=== PATIENT | male | born 1955 | race Caucasian/White ===

== ENCOUNTER 2020-02-10 21:07 | Inpatient (IN) | payer OTHER, MEDICARE, SELFPAY ==
[2020-02-10 21:21] VITALS: BP 115/76; PULSE 90; RESP 16; TEMP 36.3; O2SAT 93; BMI 30.9
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
[2020-02-10 22:13] LABS: Glucose Urine UA NEG (NEG); Leukocyte Esterase Urine NEG (NEG); Nitrite Urine NEG (NEG); PH 7.5 (5.0-8.0); Urine Blood 1+ (NEG); Urine Ketones NEG (NEG); Urine Protein 1+ MG/DL (NEG-TRACE)
[2020-02-10 22:15] LABS: Appearance Urine CLEAR; Color Urine YELLOW
[2020-02-10 22:28] LABS: RBC Urine 0-2 /HPF (0); WBC Urine 0 /HPF (0-4)
[2020-02-10 22:38] LABS: Amphetamine Screen Urine Not Detected (Not Detect); Barbiturates, Urine Not Detected (Not Detect); Benzodiazepines Screen Urine Not Detected (Not Detect); Cannabinoid Screen Urine Not Detected (Not Detect); Cocaine Screen Urine Not Detected (Not Detect); Opiate Screen Urine Not Detected (Not Detect); Phencyclidine Screen Urine Not Detected (Not Detect)
[2020-02-10 22:43] VITALS: BP 116/74; PULSE 74; RESP 18; O2SAT 97
[2020-02-10 22:50] LABS: Basophils Percent Auto 0.6 % (0-2); Eosinophils Percent Auto 1.3 % (0-4); Hematocrit 27.2 % (42-52); Hemoglobin 9.8 g/dl (14.0-18.0); Imm Gran Abs Auto 0.01 X10*3/uL (0.00-0.03); Imm Gran Pct Auto 0.3 % (0.0-0.4); Lymphocytes Absolute Auto 0.5 X10*3/uL (1.2-4.9); Lymphocytes Percent Auto 15.8 % (20-40); MANUAL DIFF FLAG SCAN; Mean Corpuscular Hemoglobin 31.9 pg (27.0-33.0); Mean Corpuscular Volume 88.6 fL (80-98); Mean Platelet Volume 9.9 fL (9.4-12.4); Monocytes Absolute Auto 0.7 X10*3/uL (0.1-1.2); Monocytes Percent Auto 21.5 % (2-11); Neutrophils Absolute Auto 1.9 X10*3/uL (2.0-8.3); Neutrophils Percent Auto 60.5 % (45-73); Platelet Count 118 X10*3/uL (160-400); Red Blood Count 3.07 X10*6/uL (4.60-5.80); Red Cell Distribution Width 12.7 % (11.0-16.0); SCAN SMEAR FLAG 1; White Blood Count 3.2 X10*3/uL (4.8-10.8)
[2020-02-10 23:06] LABS: Ethanol < 10 mg/dL
[2020-02-10 23:10] LABS: Alanine Aminotransferase 12 U/L (0-40); Albumin Level 4.2 g/dL (3.5-5.0); Alkaline Phosphatase 45 U/L (39-117); Anion Gap 15 (12-20); Aspartate Amino Transferase 17 U/L (5-37); Bilirubin Direct 0.2 mg/dL (0.0-0.5); Bilirubin Total 0.4 mg/dL (0.0-1.0); Blood Urea Nitrogen 14 mg/dL (9-16); Calcium 8.4 mg/dL (8.4-10.2); Carbon Dioxide 26 mmol/L (22-29); Chloride 93 mmol/L (96-108); Creatinine Clr Calc Pharmacy 21.5; Estimated Glomerular Filt Rate 14; Glucose Random 98 mg/dL (60-115); Potassium 3.3 mmol/l (3.3-5.1); Sodium 131 mmol/L (135-145); Total Protein 6.4 g/dL (6.5-8.0)
[2020-02-10 23:12] LABS: SLIDE REVIEW VERIFIED
[2020-02-11] VITALS (7 sets, daily range): BP systolic 104–158; BP diastolic 64–90; PULSE 65–88; RESP 16–18; TEMP 36.2–36.4; O2SAT 96–97
--- NOTE | 2020-02-11 | ECG_ITS ---
Test Reason : MEDICAL CLEARNCE Blood Pressure : / mmHG Vent. Rate : 074 BPM Atrial Rate : 074 BPM P-R Int : 176 ms QRS Dur : 108 ms QT Int : 474 ms P-R-T Axes : 039 -29 -09 degrees QTc Int : 526 ms Poor data quality Normal sinus rhythm Nonspecific T wave abnormality Abnormal ECG When compared with ECG of 17-JUL-2007 10:03, Nonspecific T wave abnormality now evident in Anterior leads QT has lengthened Referred By: Marilee Kevin Electronically Signed By:REJI NINO MD
--- NOTE | 2020-02-11 07:07 | PC.NURSE ---
Report received. Pt currently resting, breakfast at bedside. PT denies complaints. Pt is inpatient bedsearch.
[2020-02-11] MEDS: Benztropine Mesylate 1 MG TABLET PO (09:43)
[2020-02-11 10:13] LABS: COVID-19 Test Negative (Negative)
[2020-02-11] MEDS: Metoprolol Succinate ER 25 MG TAB.ER.24H PO (10:33)
[2020-02-11] MEDS: amLODIPine Besylate 5 MG TABLET PO (10:34)
--- NOTE | 2020-02-11 10:36 | PC.NURSE ---
Late Entry: pt reports that he takes his medication differently than is ordered, [facility], med rec corrected. Pt states he does not take B complex or sevelemar anymore. Provider aware of change in med rec.
--- NOTE | 2020-02-11 12:35 | MHC.CARE ---
t/w placed a call to [facility] to offer precertification info and was asked to use the LISA form which was faxed at 12n and completed and faxed back. They asked this to be sent and a clinician will reach out for clinical if possible or this will be done following the admission. Copies retained for UR and unit.
--- NOTE | 2020-02-11 13:55 | PC.NURSE ---
When staff approached PT to perform EKG pt would not respond, pt had eyes open but would not make eye contact or follow commands. Provider in to see PT, PT assessed, ekg completed, lab work ordered. After provider left the room PT stood and adjusted his dasha, then layed back down and is currently not responding to staff. This RN spoke with PT's dialysis clinic, they stated that they saw him last night and he had similar behaviors, he did not speak or blink for about 20 minutes, then became verbally aggressive with the staff there. Provider aware of conversation with dialysis clinic
--- NOTE | 2020-02-11 15:11 | PC.NURSE ---
Late Entry: This RN spoke with Pt's , she stated that he has episodes of catatonia when he stops taking his medications. She stated that she counted his depokote pills and she does not think he has been taking them. Provider notified. Depakote level ordered. PT is tough stick, phlebotomoy to attempt.
[2020-02-11 15:37] LABS: Basophils Percent Auto 0.5 % (0-2); Eosinophils Absolute Auto 0.1 X10*3/uL (0.0-0.4); Eosinophils Percent Auto 1.3 % (0-4); Hematocrit 28.7 % (42-52); Hemoglobin 10.1 g/dl (14.0-18.0); Imm Gran Abs Auto 0.01 X10*3/uL (0.00-0.03); Imm Gran Pct Auto 0.3 % (0.0-0.4); Lymphocytes Absolute Auto 0.6 X10*3/uL (1.2-4.9); Lymphocytes Percent Auto 16.2 % (20-40); MANUAL DIFF FLAG SCAN; Mean Corpuscular HGB Conc 35.2 g/dl (31.0-36.0); Mean Corpuscular Hemoglobin 31.7 pg (27.0-33.0); Monocytes Absolute Auto 0.6 X10*3/uL (0.1-1.2); Monocytes Percent Auto 15.4 % (2-11); Neutrophils Absolute Auto 2.6 X10*3/uL (2.0-8.3); Neutrophils Percent Auto 66.3 % (45-73); Platelet Count 142 X10*3/uL (160-400); Red Blood Count 3.19 X10*6/uL (4.60-5.80); Red Cell Distribution Width 13.1 % (11.0-16.0); SCAN SMEAR FLAG 1; White Blood Count 3.9 X10*3/uL (4.8-10.8)
[2020-02-11 15:57] LABS: SLIDE REVIEW VERIFIED
[2020-02-11 16:03] LABS: Valproate 45.6 mcg/mL (50.0-100.0)
--- NOTE | 2020-02-11 16:22 | PC.NURSE ---
PT ambulated to bathroom with steady gait, pt declined to engage with staff.
[2020-02-11 17:09] LABS: Anion Gap 15 (12-20); Blood Urea Nitrogen 21 mg/dL (9-16); Carbon Dioxide 26 mmol/L (22-29); Chloride 93 mmol/L (96-108); Creatinine Clr Calc Pharmacy 15.4; Estimated Glomerular Filt Rate 10; Glucose Random 88 mg/dL (60-115); Magnesium 2.4 mg/dL (1.6-2.6); Phosphorus 4.4 mg/dL (2.7-4.5); Potassium 3.3 mmol/l (3.3-5.1); Sodium 131 mmol/L (135-145)
--- NOTE | 2020-02-11 19:10 | PC.NURSE ---
Pt arrived on M5 at approximately 17:50. Pt is a 65 year old male who arrived at [facility] ED via his . He has previously been on the m5 unit twice and is on a CV status. Pt is covid -. Utox - pt has a fitula on LT arm for dialysis. Pt was recommended by SW at [facility] due to becoming irritable and off his baseline. pt's reported that he had rapid decompensation over the past two weeks, stating with subtle changes and escalating to being paranoid, guarded, irrational, agitated, with erratic behavior marked by poor judgment. Pt is diagnosed with Bipolar disorder. Pt denied any pain, SI, AH, AV during admit. pt mentioned I'am not sure why I am here, I'm starting to take my medications again . DR. Caitie Woodward called for orders and notified of admission. pt is on 15 min safety checks. Pt was pleasant and cooperative on admit and was waiting on a meal tray to arrive. pt had clear thoughts. Stable mood. Start treatment plan and monitor for safety.
[2020-02-11] MEDS: Divalproex Sodium 500 MG TABLET.DR PO (21:03)
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
[2020-02-12 06:30] VITALS: BP 113/57; PULSE 84; RESP 16; TEMP 36.2; O2SAT 94
[2020-02-12] MEDS: LORazepam 2 MG/ML VIAL 1 MG IM ×2 (06:45→22:08)
--- NOTE | 2020-02-12 07:05 | P.EN_ITS ---
Event Note Date of Service: 02/12/20 Event Note: A rapid response called on this patient for shaking. on my arri marly to patient bedside, patient was laying on his side, shaking his arm and his legs, with his eyes closed, refusing to open his eyes, ears for using to respond, according to the nurse at bedside, about 10 minutes ago patient was talking and conversing. She reported that during the respond, when she was trying to get his vitals he tried to sit up. Patient refused my time to lift his eyelids, he is hemodynamically stable with stable vitals, satting 98% on room air, heart rate in the 60 70s. on review of his chart, patient had a similar episode while in the ED, he is here for catatonia. 1 mg of IM Ativan was given, will order stat CMP, CBC as well as ammonia level
--- NOTE | 2020-02-12 07:10 | PC.NURSE ---
when nurse went into room to take am vs pt was responsive then became increasingly tremulous on rt side of body and verbally unresponsive.BP 113/57 HR 60. rapid response called. Ativan 1 mg IM given in rt deltoid at 0645.
[2020-02-12 07:51] LABS: Ammonia 43 umol/L (13-55)
[2020-02-12 08:10] LABS: Alanine Aminotransferase 18 U/L (0-40); Albumin Level 4.1 g/dL (3.5-5.0); Alkaline Phosphatase 42 U/L (39-117); Anion Gap 18 (12-20); Aspartate Amino Transferase 26 U/L (5-37); Bilirubin Total 0.3 mg/dL (0.0-1.0); Blood Urea Nitrogen 26 mg/dL (9-16); Calcium 9.1 mg/dL (8.4-10.2); Carbon Dioxide 22 mmol/L (22-29); Chloride 96 mmol/L (96-108); Glucose Random 83 mg/dL (60-115); Potassium 4.1 mmol/l (3.3-5.1); Sodium 132 mmol/L (135-145); Total Protein 6.6 g/dL (6.5-8.0)
[2020-02-12 08:13] LABS: Creatinine Clr Calc Pharmacy 13.3; Estimated Glomerular Filt Rate 8
--- NOTE | 2020-02-12 12:41 | PM.CNNEP ---
History of Present Illness Reason for Consult Consult date: 02/12/20 Chief Complaint Chief complaint: Bi Polar History of Present Illness Narrative: 64 y/o wM known to me with ESRD on HD mwf at [facility] ( [id number]) satrted oon HD in Jan. Initially tried to use AVF but wwas not able to work adequately so he has a Pcath in place. Now adm to psych unoit and we will cont HD here at the hosp while inpt. Presently on HD and comfortable...intermittent tremors which is a chronic problem Anemia Bipolar disorder ESRD: mwf ..recently started HD 01/2020..esrd presumed to d/t [facility] Hypertension [facility] Past Medical History Medical History Anemia Bipolar disorder Dialysis patient Hypertension Social History Social History Household Members: Spouse Housing: House Do you presently have visiting nurse or other home services: No Alcohol intake: never Smoking Status: Never smoker Smoked in Last 30 Days: No Patient Interested in Nicotine Replacement: No Patient Given Instructions on How to Stop Smoking: No Second Hand Smoke Exposure: No Use of substances other than those prescribed or required for medical reasons: No Currently Displaying Signs/Symptoms of Drug Intoxication Withdrawal: No Any prior treatment program specific to substance use: No Have you been hit, kicked, punched, or otherwise hurt by someone within the past year? If so, by whom?: No Do you feel safe in your current relationship?: Yes Is there a partner from a previous relationship who is making you feel unsafe now?: No Are you made to feel afraid or neglected: No Advance Directives: No Advance Directives Information Provided: No (declined) Advance Directives on File: No Do you have thoughts of harming others: None Do you have a plan to hurt others: No Plan Recently lost weight without trying: No Meds Allergies Allergy/AdvReac Type Severity Reaction Status Date / Time No Known Allergies Allergy Mild NOT Unverified 12/19/19 17:37 APPLICABLE Home Medications Medication Instructions Recorded Confirmed Type B complex with C 20-folic acid 1 cap PO DAILY 02/11/20 02/11/20 History [Triphrocaps] amlodipine 5 mg PO BID 02/11/20 02/11/20 History benztropine 2 mg PO BID 02/11/20 02/11/20 History divalproex 2 tab PO BEDTIME 02/11/20 02/11/20 History metoprolol succinate 25 mg PO BID 02/11/20 02/11/20 History sevelamer HCl 1 tab PO TID 02/11/20 02/11/20 History thiothixene 15 mg PO DAILY 02/11/20 02/11/20 History Physical Exam Vital Signs: Last Vital Signs Temp 97.1 F 02/12/20 06:30 Pulse 84 02/12/20 06:30 Resp 16 02/12/20 06:30 BP 113/57 L 02/12/20 06:30 Pulse Ox 94 02/12/20 06:30 Body Mass Index 30.9 Appearance: Alert. Oriented X3. No acute distress. Eyes: Pupils equal, round and reactive to light. ENT: Pharynx normal. Neck: Normal inspection. Neck supple. No lymph nodes noted. No crepitus CVS: Normal heart rate and rhythm. Pulses normal. Normal S1 and S2 Respiratory: No respiratory distress. Breath sounds normal. No Wheezing. No rales Abdomen: Soft and nontender. No rigidity. No distention. good BS x4 Skin: Skin warm and dry. Normal skin color. Normal skin turgor. Extremities: +2 bilateral pitting edema, wearing compression stockings Neuro: Oriented X 3. N no slurred speech. Patient has a baseline resting tremor in both hands, patient states it has been going on for several years due to his medications psych: Patient does have a flat affect, calm, cooperative, well kept, answering questions appropriately, normal thought process Results Lab Results Result Diagrams: 02/11/20 15:25 02/12/20 07:11 Lab results: Chemistry 02/10/20 02/11/20 02/12/20 22:41 15:25 07:11 Sodium 131 L 131 L 132 L Potassium 3.3 3.3 4.1 D Carbon Dioxide 26 26 22 BUN 14 21 H 26 H Creatinine 4.14 H* 5.77 H* 6.66 H* Calcium 8.4 9.0 D 9.1 Phosphorus 4.4 Hematology 02/10/20 02/11/20 02/12/20 22:41 15:25 07:11 WBC 3.2 L 3.9 L Cancelled Hgb 9.8 L 10.1 L Cancelled Plt Count 118 L 142 L Cancelled Urinalysis 02/10/20 21:59 Urine Color YELLOW Urine Appearance CLEAR Urine pH 7.5 Ur Specific [place] 1.010 Urine Protein 1+ H Urine Glucose (UA) NEG Urine Ketones NEG Urine Blood 1+ H Urine Nitrite NEG Ur Leukocyte Esterase NEG Urine RBC 0-2 Urine WBC 0 Ur Squamous Epith Cells NONE Assessment and Plan (1) Dialysis patient: Status: Acute 1. ESRD: cont HD mwf 2. Anemia 3. Psych issues: adm to psych unit 4. Tremors: longstandiing issue REC: cont HD mwf; cont usu meds; protect LUE ( AVF arm); renal diet..2 gm K restrcited and low phos
[2020-02-12 15:20] VITALS: BP 106/54; PULSE 113
[2020-02-12 16:41] VITALS: BP 155/87; PULSE 73; TEMP 36.3; O2SAT 97
--- NOTE | 2020-02-12 23:22 | PC.NURSE ---
At approximately 2000 t/w approached Marco Styles to take his oral scheduled night medication. Marco appeared to present with catatonia and did not respond to any verbal or tactile stimuli. Marco remained with his eyes closed. He had dialysis today, vital signs taken and they were WNL, no fever. Provider Caitie Woodward called and she mentioned when Marco is not taking his medication he gets more catatonic without meds. She ordered 1mg IM of Ativan stat, to be given with his regular scheduled meds 20 to 30 min later. Marco given IM ativan in his RT deltoid and still did not respond to any verbal or tactile stimuli 30mins later. Oral medication held. Monitor vital signs and respirations and engage pt tomorrow morning
[2020-02-13 05:55] VITALS: BP 141/83; PULSE 79; RESP 16; TEMP 36; O2SAT 97
--- NOTE | 2020-02-13 07:28 | P.PNPSI_ITS ---
Subjective Subjective Date of Service: 02/13/20 Reason For Visit: Bi Polar Subjective Notes: Conditional Voluntary Interim History: Pt paranoid. Refused meds today. Did not engage with TW. Played possum. Medication Compliance: No Side effects from medications: Yes Attending Groups: No Review of Systems Review of Systems Yes Other (ESRD. Refused labs) Mental Status Exam Mental Status Exam Patient Appearance: Disheveled, Unkempt and Bizarre Patient Orientation: Person, Place, Time and Situation Level of Consciousness: Restless Patient Behavior: Guarded, Suspicious, Restless and Uncooperative Mood Description: Anxious, Labile and Apprehensive Affect Description: Suspicious Speech Pattern: Perseverating and Rambling Diagnostics Vital Signs (24Hr): Vital Signs - 24 hr 02/12/20 15:20 02/12/20 16:41 02/13/20 05:55 Temperature 97.3 F 96.8 F Pulse Rate 113 H 73 79 Respiratory Rate 16 Blood Pressure 106/54 L 155/87 H 141/83 H Pulse Oximetry 97 97 Body Mass Index 30.9 Labs Results: 02/11/20 15:25 02/12/20 07:11 Labs: Laboratory Results - last 48 hr 02/11/20 02/11/20 02/11/20 09:38 15:25 15:25 WBC 3.9 L RBC 3.19 L Hgb 10.1 L Hct 28.7 L MCV 90.0 MCH 31.7 MCHC 35.2 RDW 13.1 Plt Count 142 L MPV 11.0 Immature Gran % (Auto) 0.3 Neut % (Auto) 66.3 Lymph % (Auto) 16.2 L [place] % (Auto) 15.4 H Eos % (Auto) 1.3 Baso % (Auto) 0.5 Lymph # (Auto) 0.6 L [place] # (Auto) 0.6 Eos # (Auto) 0.1 Baso # (Auto) 0.0 Abs Immat Gran (auto) 0.01 Absolute Neuts (auto) 2.6 Absolute Nucleated RBC 0.000 Nucleated RBC % (auto) 0.0 Smear Tech's Comments VERIFIED Sodium 131 L Potassium 3.3 Chloride 93 L Carbon Dioxide 26 Anion Gap 15 BUN 21 H Creatinine 5.77 H* Estim Creat Clear Calc 15.4 Estimated GFR 10 Random Glucose 88 Calcium 9.0 D Phosphorus 4.4 Magnesium 2.4 Total Bilirubin AST ALT Alkaline Phosphatase Ammonia Total Protein Albumin Valproic Acid COVID-19 ([facility]) Negative [employer] [employer] [place] See Note 02/11/20 02/12/20 02/12/20 15:25 07:11 07:11 WBC Cancelled RBC Cancelled Hgb Cancelled Hct Cancelled MCV Cancelled MCH Cancelled MCHC Cancelled RDW Cancelled Plt Count Cancelled MPV Cancelled Immature Gran % (Auto) Cancelled Neut % (Auto) Cancelled Lymph % (Auto) Cancelled [place] % (Auto) Cancelled Eos % (Auto) Cancelled Baso % (Auto) Cancelled Lymph # (Auto) Cancelled [place] # (Auto) Cancelled Eos # (Auto) Cancelled Baso # (Auto) Cancelled Abs Immat Gran (auto) Cancelled Absolute Neuts (auto) Cancelled Absolute Nucleated RBC Cancelled Nucleated RBC % (auto) Cancelled Smear Tech's Comments Sodium 132 L Potassium 4.1 D Chloride 96 Carbon Dioxide 22 Anion Gap 18 BUN 26 H Creatinine 6.66 H* Estim Creat Clear Calc 13.3 Estimated GFR 8 Random Glucose 83 Calcium 9.1 Phosphorus Magnesium Total Bilirubin 0.3 AST 26 D ALT 18 Alkaline Phosphatase 42 Ammonia Total Protein 6.6 Albumin 4.1 Valproic Acid 45.6 L COVID-19 ([facility]) [employer] [place] 02/12/20 07:11 WBC RBC Hgb Hct MCV MCH MCHC RDW Plt Count MPV Immature Gran % (Auto) Neut % (Auto) Lymph % (Auto) [place] % (Auto) Eos % (Auto) Baso % (Auto) Lymph # (Auto) [place] # (Auto) Eos # (Auto) Baso # (Auto) Abs Immat Gran (auto) Absolute Neuts (auto) Absolute Nucleated RBC Nucleated RBC % (auto) Smear Tech's Comments Sodium Potassium Chloride Carbon Dioxide Anion Gap BUN Creatinine Estim Creat Clear Calc Estimated GFR Random Glucose Calcium Phosphorus Magnesium Total Bilirubin AST ALT Alkaline Phosphatase Ammonia 43 Total Protein Albumin Valproic Acid COVID-19 ([facility]) [employer] Medications Medications Current Medications Generic Name Dose Route Start Last Admin Trade Name Freq PRN Reason Stop Dose Admin Acetaminophen 650 mg 02/11/20 18:28 Acetaminophen 325 Mg Tablet PO Q6H PRN Headache/Pain Mild Scale (1-3) Amlodipine Besylate 5 mg 02/11/20 09:00 02/12/20 15:20 Amlodipine Besylate 5 Mg Tablet PO Not Given DAILY [facility] Protocol Benztropine Mesylate 1 mg 02/11/20 09:00 02/12/20 15:24 Benztropine Mesylate 1 Mg Tablet PO Not Given DAILY DEVON Divalproex Sodium 500 mg 02/11/20 09:00 02/12/20 23:11 Divalproex Sodium 500 Mg Tablet.Dr PO Not Given BID DEVON Hydroxyzine HCl 25 mg 02/11/20 18:28 Hydroxyzine Hcl 25 Mg Tablet PO BEDTIME PRN Anxiety Lorazepam 1 mg 02/12/20 12:42 Lorazepam 1 Mg Tablet PO Q4H PRN Anxiety Metoprolol Succinate 25 mg 02/11/20 09:00 02/12/20 15:24 Metoprolol Succinate Er 25 Mg Tab.Er.24h PO Not Given DAILY [facility] Protocol Pat Own Med ( 3 each 02/11/20 21:00 02/12/20 23:11 Thiothixene 5mg Caps PO Not Given ) BEDTIME DEVON Sevelamer HCl 800 mg 02/11/20 09:00 02/12/20 23:11 Sevelamer Hcl 800 Mg Tablet PO Not Given TID DEVON Trazodone HCl 25 mg 02/11/20 18:28 Trazodone Hcl 25 Mg Halftab PO BEDTIME PRN Insomnia Vitamin B Complex/Folic Acid 1 cap 02/11/20 09:00 02/12/20 15:24 B Complex W-C No.20/Folic Acid Capsule PO Not Given DAILY [facility] Allergies Allergies Allergy/AdvReac Type Severity Reaction Status Date / Time No Known Allergies Allergy Mild NOT Unverified 12/19/19 17:37 APPLICABLE Assessment & Plan Assessment & Plan (1) Bipolar disorder, unspecified: Status: Acute Code(s): F31.9 - Bipolar disorder, unspecified (2) Psychosis: Status: Acute Code(s): F29 - Unspecified psychosis not due to a substance or known physiological condition Assessment and Plan: q15 cv Collateral from family HD per Nephrology Nephrology Dr Pena consult Ct OP meds. VPA noted low Greater than 50% of the session was spent on counseling and/or coordination of care
[2020-02-13 21:47] VITALS: BP 138/93; PULSE 74; TEMP 37.3; O2SAT 96
[2020-02-13 23:04] VITALS: BP 138/93; PULSE 74
[2020-02-14 06:00] VITALS: BP 136/89; PULSE 74; RESP 16; TEMP 36.3; O2SAT 98
--- NOTE | 2020-02-14 06:13 | P.PNPSI_ITS ---
Subjective Subjective Reason For Visit: Bi Polar Interim History: Currently on HD via [facility]. Pt was initially resistive to interview. Exhibits paranoia and fixity of ideas. Went to HD. See Dr Pena note. Creat remains high. Later pt did accept meds. Encourage Lorazepam to help with anxiety and catatonia. Review of Systems Constitutional: Reports weakness Genitourinary: Reports other (Dialysis) Reports tremor(s) and Reports weakness Mental Status Exam Mental Status Exam Patient Appearance: Disheveled, Unkempt and Bizarre Patient Orientation: Person, Place, Time and Situation Level of Consciousness: Restless Patient Behavior: Guarded, Suspicious, Restless and Uncooperative Mood Description: Anxious, Labile and Apprehensive Affect Description: Suspicious Speech Pattern: Perseverating and Rambling Diagnostics Vital Signs (24Hr): Vital Signs - 24 hr 02/13/20 21:47 02/13/20 23:04 Temperature 99.2 F Pulse Rate 74 74 Blood Pressure 138/93 H 138/93 H Pulse Oximetry 96 Body Mass Index 30.9 Labs Results: 02/11/20 15:25 02/14/20 08:37 Labs: Laboratory Results - last 48 hr 02/12/20 02/12/20 02/12/20 07:11 07:11 07:11 WBC Cancelled RBC Cancelled Hgb Cancelled Hct Cancelled MCV Cancelled MCH Cancelled MCHC Cancelled RDW Cancelled Plt Count Cancelled MPV Cancelled Immature Gran % (Auto) Cancelled Neut % (Auto) Cancelled Lymph % (Auto) Cancelled [place] % (Auto) Cancelled Eos % (Auto) Cancelled Baso % (Auto) Cancelled Lymph # (Auto) Cancelled [place] # (Auto) Cancelled Eos # (Auto) Cancelled Baso # (Auto) Cancelled Abs Immat Gran (auto) Cancelled Absolute Neuts (auto) Cancelled Absolute Nucleated RBC Cancelled Nucleated RBC % (auto) Cancelled Sodium 132 L Potassium 4.1 D Chloride 96 Carbon Dioxide 22 Anion Gap 18 BUN 26 H Creatinine 6.66 H* Estim Creat Clear Calc 13.3 Estimated GFR 8 Random Glucose 83 Calcium 9.1 Total Bilirubin 0.3 AST 26 D ALT 18 Alkaline Phosphatase 42 Ammonia 43 Total Protein 6.6 Albumin 4.1 Medications Medications Current Medications Generic Name Dose Route Start Last Admin Trade Name Freq PRN Reason Stop Dose Admin Acetaminophen 650 mg 02/11/20 18:28 Acetaminophen 325 Mg Tablet PO Q6H PRN Headache/Pain Mild Scale (1-3) Amlodipine Besylate 5 mg 02/11/20 09:00 02/13/20 10:46 Amlodipine Besylate 5 Mg Tablet PO Not Given DAILY [facility] Protocol Benztropine Mesylate 2 mg 02/13/20 09:00 02/13/20 23:02 Benztropine Mesylate 1 Mg Tablet PO Not Given BID [facility] Divalproex Sodium 1,000 mg 02/13/20 21:00 02/13/20 23:03 Divalproex Sodium Er 500 Mg Tab.Er.24h PO Not Given BEDTIME [facility]ON Hydroxyzine HCl 25 mg 02/11/20 18:28 Hydroxyzine Hcl 25 Mg Tablet PO BEDTIME PRN Anxiety Lorazepam 1 mg 02/12/20 12:42 Lorazepam 1 Mg Tablet PO Q4H PRN Anxiety Lorazepam 1 mg 02/13/20 09:00 02/13/20 23:03 Lorazepam 1 Mg Tablet PO Not Given TID [facility] Metoprolol Succinate 25 mg 02/13/20 09:00 02/13/20 23:04 Metoprolol Succinate Er 25 Mg Tab.Er.24h PO Not Given BID [facility] Protocol Pat Own Med ( 3 each 02/11/20 21:00 02/13/20 23:04 Thiothixene 5mg Caps PO Not Given ) BEDTIME DEVON Sevelamer HCl 800 mg 02/11/20 09:00 02/13/20 23:05 Sevelamer Hcl 800 Mg Tablet PO Not Given TID [facility] Trazodone HCl 25 mg 02/11/20 18:28 Trazodone Hcl 25 Mg Halftab PO BEDTIME PRN Insomnia Vitamin B Complex/Folic Acid 1 cap 02/11/20 09:00 02/13/20 10:46 B Complex W-C No.20/Folic Acid Capsule PO Not Given DAILY [facility] Allergies Allergies Allergy/AdvReac Type Severity Reaction Status Date / Time No Known Allergies Allergy Mild NOT Unverified 12/19/19 17:37 APPLICABLE Assessment & Plan Assessment & Plan (1) Dialysis patient: Status: Acute Code(s): Z99.2 - Dependence on renal dialysis Assessment and Plan: 1. ESRD: cont HD mwf 2. Anemia 3. Cont meds: VPA/Navane and Lorazepam 4. Tremors: longstandiing issue REC: no new recs; cont HD mwf; cont usu meds; protect LUE ( AVF arm); renal diet..2 gm K restrcited and low phos Greater than 50% of the session was spent on counseling and/or coordination of care
[2020-02-14 09:34] LABS: Alanine Aminotransferase 17 U/L (0-40); Albumin Level 4.8 g/dL (3.5-5.0); Alkaline Phosphatase 53 U/L (39-117); Anion Gap 24 (12-20); Aspartate Amino Transferase 18 U/L (5-37); Bilirubin Total 0.7 mg/dL (0.0-1.0); Blood Urea Nitrogen 36 mg/dL (9-16); Calcium 9.6 mg/dL (8.4-10.2); Carbon Dioxide 15 mmol/L (22-29); Chloride 98 mmol/L (96-108); Glucose Fasting 96 mg/dL (60-99); Potassium 3.9 mmol/l (3.3-5.1); Sodium 133 mmol/L (135-145); Total Protein 7.5 g/dL (6.5-8.0)
[2020-02-14 09:43] LABS: Creatinine Clr Calc Pharmacy 9.6; Estimated Glomerular Filt Rate 6
--- NOTE | 2020-02-14 11:01 | P.PNNP_ITS ---
Subjective Subjective Interval history: Currently on HD via [facility] Physical Exam Vital Signs: Vital Signs: Last Vital Signs Temp 97.4 F 02/14/20 06:00 Pulse 74 02/14/20 06:00 Resp 16 02/14/20 06:00 BP 136/89 02/14/20 06:00 Pulse Ox 98 02/14/20 06:00 Body Mass Index 30.9 Appearance: Alert. Oriented X3. No acute distress. Eyes: Pupils equal, round and reactive to light. ENT: Pharynx normal. Neck: Normal inspection. Neck supple. No lymph nodes noted. No crepitus CVS: Normal heart rate and rhythm. Pulses normal. Normal S1 and S2 Respiratory: No respiratory distress. Breath sounds normal. No Wheezing. No rales Abdomen: Soft and nontender. No rigidity. No distention. good BS x4 Skin: Skin warm and dry. Normal skin color. Normal skin turgor. Extremities: +2 bilateral pitting edema, wearing compression stockings Neuro: Oriented X 3. N no slurred speech. Patient has a baseline resting tremor in both hands, patient states it has been going on for several years due to his medications psych: Patient does have a flat affect, calm, cooperative, well kept, answering questions appropriately, normal thought process Assessment & Plan Assessment and plan (1) Dialysis patient: Status: Acute Assessment and Plan: 1. ESRD: cont HD mwf 2. Anemia 3. Psych issues: adm to psych unit 4. Tremors: longstandiing issue REC: no new recs; cont HD mwf; cont usu meds; protect LUE ( AVF arm); renal diet..2 gm K restrcited and low phos Time Spent With Patient Time: Total time spent is greater than 50% in coordination of care (as documented) at patient's floor/unit and/or counseling patient: Procedures Abscess I/D Date of Service: 02/14/20
[2020-02-14] MEDS: amLODIPine Besylate 5 MG TABLET PO (14:05)
[2020-02-14] MEDS: Benztropine Mesylate 1 MG TABLET 2 MG PO ×2 (14:05→22:32)
[2020-02-14] MEDS: LORazepam 1 MG TABLET PO (14:06)
[2020-02-14] MEDS: Metoprolol Succinate ER 25 MG TAB.ER.24H PO ×2 (14:06→22:33)
[2020-02-14] MEDS: Divalproex Sodium ER 500 MG TAB.ER.24H 1000 MG PO (22:32)
[2020-02-14 22:33] VITALS: BP 131/82; PULSE 87
[2020-02-14 22:36] VITALS: TEMP 35.9
[2020-02-15 06:15] VITALS: BP 121/55; PULSE 67; RESP 20; TEMP 36.5
[2020-02-15 08:37] LABS: Alanine Aminotransferase 26 U/L (0-40); Albumin Level 4.7 g/dL (3.5-5.0); Alkaline Phosphatase 53 U/L (39-117); Anion Gap 21 (12-20); Aspartate Amino Transferase 58 U/L (5-37); Bilirubin Total 0.5 mg/dL (0.0-1.0); Blood Urea Nitrogen 36 mg/dL (9-16); Calcium 9.6 mg/dL (8.4-10.2); Carbon Dioxide 20 mmol/L (22-29); Chloride 94 mmol/L (96-108); Creatinine Clr Calc Pharmacy 11.6; Estimated Glomerular Filt Rate 7; Glucose Fasting 98 mg/dL (60-99); Potassium 4.1 mmol/l (3.3-5.1); Sodium 131 mmol/L (135-145); Total Protein 7.4 g/dL (6.5-8.0)
[2020-02-15 09:03] VITALS: BP 133/65; PULSE 75
[2020-02-15] MEDS: LORazepam 1 MG TABLET PO (09:03)
[2020-02-15] MEDS: Metoprolol Succinate ER 25 MG TAB.ER.24H PO ×2 (09:03→23:16)
[2020-02-15] MEDS: amLODIPine Besylate 5 MG TABLET PO (09:04)
[2020-02-15] MEDS: Benztropine Mesylate 1 MG TABLET 2 MG PO ×2 (09:04→23:16)
--- NOTE | 2020-02-15 11:22 | HO.PSYCHPN ---
Subjective Subjective Reason For Visit: Bi Polar Interim History: Currently on HD via [facility]. Pt was withdrawn. Exhibits paranoia and fixity of ideas. Went to HD. Review of Dr Pena note. Creat remains high. Sodium low. pt did accept meds. Review of Systems Constitutional: Reports weakness Reports tremor(s) and Reports weakness Mental Status Exam Mental Status Exam Patient Appearance: Disheveled, Unkempt and Bizarre Patient Orientation: Person, Place, Time and Situation Level of Consciousness: Restless Patient Behavior: Guarded, Suspicious, Restless and Uncooperative Mood Description: Anxious, Labile and Apprehensive Affect Description: Suspicious Speech Pattern: Perseverating and Rambling Diagnostics Vital Signs (24Hr): Vital Signs - 24 hr 02/14/20 22:33 02/14/20 22:36 02/15/20 06:15 Temperature 96.6 F L 97.7 F Pulse Rate 87 67 Respiratory Rate 20 Blood Pressure 131/82 121/55 L 02/15/20 09:03 Temperature Pulse Rate 75 Respiratory Rate Blood Pressure 133/65 Body Mass Index 30.9 Labs Results: 02/11/20 15:25 02/15/20 07:40 Labs: Laboratory Results - last 48 hr 02/14/20 02/15/20 08:37 07:40 Sodium 133 L 131 L Potassium 3.9 4.1 Chloride 98 94 L Carbon Dioxide 15 L 20 L Anion Gap 24 H 21 H BUN 36 H 36 H Creatinine 9.28 H* 7.64 H* Estim Creat Clear Calc 9.6 11.6 Estimated GFR 6 7 Fasting Glucose 96 98 Calcium 9.6 9.6 Total Bilirubin 0.7 0.5 AST 18 58 H ALT 17 26 Alkaline Phosphatase 53 D 53 Total Protein 7.5 7.4 Albumin 4.8 4.7 Medications Medications Current Medications Generic Name Dose Route Start Last Admin Trade Name Freq PRN Reason Stop Dose Admin Acetaminophen 650 mg 02/11/20 18:28 Acetaminophen 325 Mg Tablet PO Q6H PRN Headache/Pain Mild Scale (1-3) Amlodipine Besylate 5 mg 02/11/20 09:00 02/15/20 09:04 Amlodipine Besylate 5 Mg Tablet PO 5 mg DAILY DEVON Administration Protocol Benztropine Mesylate 2 mg 02/13/20 09:00 02/15/20 09:04 Benztropine Mesylate 1 Mg Tablet PO 2 mg BID DEVON Administration Divalproex Sodium 1,000 mg 02/13/20 21:00 02/14/20 22:32 Divalproex Sodium Er 500 Mg Tab.Er.24h PO 1,000 mg BEDTIME DEVON Administration Hydroxyzine HCl 25 mg 02/11/20 18:28 Hydroxyzine Hcl 25 Mg Tablet PO BEDTIME PRN Anxiety Lorazepam 1 mg 02/12/20 12:42 Lorazepam 1 Mg Tablet PO Q4H PRN Anxiety Lorazepam 1 mg 02/13/20 09:00 02/15/20 09:03 Lorazepam 1 Mg Tablet PO 1 mg TID DEVON Administration Metoprolol Succinate 25 mg 02/13/20 09:00 02/15/20 09:03 Metoprolol Succinate Er 25 Mg Tab.Er.24h PO 25 mg BID DEVON Administration Protocol Pat Own Med ( 3 each 02/11/20 21:00 02/14/20 22:41 Thiothixene 5mg Caps PO 3 each ) BEDTIME DEVON Administration Sevelamer HCl 800 mg 02/11/20 09:00 02/15/20 09:03 Sevelamer Hcl 800 Mg Tablet PO 800 mg TID DEVON Administration Trazodone HCl 25 mg 02/11/20 18:28 Trazodone Hcl 25 Mg Halftab PO BEDTIME PRN Insomnia Vitamin B Complex/Folic Acid 1 cap 02/11/20 09:00 02/15/20 09:03 B Complex W-C No.20/Folic Acid Capsule PO 1 cap DAILY DEVON Administration Allergies Allergies Allergy/AdvReac Type Severity Reaction Status Date / Time No Known Allergies Allergy Mild NOT Unverified 12/19/19 17:37 APPLICABLE Assessment & Plan Assessment & Plan (1) Dialysis patient: Status: Acute Code(s): Z99.2 - Dependence on renal dialysis Assessment and Plan: 1. ESRD: cont HD mwf 2. Anemia 3. Cont meds: VPA/Navane and Lorazepam 4. Tremors: longstandiing issue REC: no new recs; cont HD mwf; cont usu meds; protect LUE ( AVF arm); renal diet..2 gm K restrcited and low phos Encourage Lorazepam to help with anxiety and catatonia. Greater than 50% of the session was spent on counseling and/or coordination of care
[2020-02-15] MEDS: Cholecalciferol (Vitamin D3) 25 MCG TABLET PO (11:59)
[2020-02-15 23:16] VITALS: BP 121/72; PULSE 100
[2020-02-15] MEDS: Divalproex Sodium ER 500 MG TAB.ER.24H 1000 MG PO (23:16)
[2020-02-15 23:19] VITALS: TEMP 36
[2020-02-16 06:00] VITALS: BP 112/69; PULSE 77; RESP 18; TEMP 35.8; O2SAT 99
[2020-02-16 09:20] VITALS: BP 112/69; PULSE 77
[2020-02-16] MEDS: LORazepam 1 MG TABLET PO ×2 (09:20→14:03)
[2020-02-16] MEDS: Metoprolol Succinate ER 25 MG TAB.ER.24H PO ×2 (09:20→21:18)
[2020-02-16] MEDS: amLODIPine Besylate 5 MG TABLET PO (09:20)
[2020-02-16] MEDS: Benztropine Mesylate 1 MG TABLET 2 MG PO ×2 (09:21→21:13)
--- NOTE | 2020-02-16 11:00 | P.PNPSI_ITS ---
Subjective Subjective Date of Service: 02/16/20 Reason For Visit: Bi Polar Subjective Notes: Conditional Voluntary Interim History: Currently on HD via [facility]. Pt less withdrawn. More verbal; Continues with paranoia and suspiciousness Schedule for HD. Creat remains high. Sodium low. pt did accept meds. Medication Compliance: Yes Side effects from medications: No Attending Groups: No Review of Systems Constitutional: Reports weakness Reports tremor(s) and Reports weakness Mental Status Exam Mental Status Exam Patient Appearance: Disheveled, Unkempt and Bizarre Patient Orientation: Person, Place, Time and Situation Level of Consciousness: Restless Patient Behavior: Guarded, Suspicious, Restless and Uncooperative Mood Description: Anxious, Labile and Apprehensive Affect Description: Suspicious Speech Pattern: Perseverating and Rambling Diagnostics Vital Signs (24Hr): Vital Signs - 24 hr 02/15/20 23:16 02/15/20 23:19 02/16/20 06:00 Temperature 96.8 F 96.4 F L Pulse Rate 100 77 Respiratory Rate 18 Blood Pressure 121/72 112/69 Pulse Oximetry 99 02/16/20 09:20 Temperature Pulse Rate 77 Respiratory Rate Blood Pressure 112/69 Pulse Oximetry Body Mass Index 30.9 Labs Results: 02/11/20 15:25 02/15/20 07:40 Labs: Laboratory Results - last 48 hr 02/15/20 07:40 Sodium 131 L Potassium 4.1 Chloride 94 L Carbon Dioxide 20 L Anion Gap 21 H BUN 36 H Creatinine 7.64 H* Estim Creat Clear Calc 11.6 Estimated GFR 7 Fasting Glucose 98 Calcium 9.6 Total Bilirubin 0.5 AST 58 H ALT 26 Alkaline Phosphatase 53 Total Protein 7.4 Albumin 4.7 EKG EKG: reviewed Medications Medications Current Medications Generic Name Dose Route Start Last Admin Trade Name Freq PRN Reason Stop Dose Admin Acetaminophen 650 mg 02/11/20 18:28 Acetaminophen 325 Mg Tablet PO Q6H PRN Headache/Pain Mild Scale (1-3) Amlodipine Besylate 5 mg 02/11/20 09:00 02/16/20 09:20 Amlodipine Besylate 5 Mg Tablet PO 5 mg DAILY DEVON Administration Protocol Benztropine Mesylate 2 mg 02/13/20 09:00 02/16/20 09:21 Benztropine Mesylate 1 Mg Tablet PO 2 mg BID DEVON Administration Divalproex Sodium 1,000 mg 02/13/20 21:00 02/15/20 23:16 Divalproex Sodium Er 500 Mg Tab.Er.24h PO 1,000 mg BEDTIME DEVON Administration Hydroxyzine HCl 25 mg 02/11/20 18:28 Hydroxyzine Hcl 25 Mg Tablet PO BEDTIME PRN Anxiety Lorazepam 1 mg 02/12/20 12:42 Lorazepam 1 Mg Tablet PO Q4H PRN Anxiety Lorazepam 1 mg 02/13/20 09:00 02/16/20 09:20 Lorazepam 1 Mg Tablet PO 1 mg TID DEVON Administration Metoprolol Succinate 25 mg 02/13/20 09:00 02/16/20 09:20 Metoprolol Succinate Er 25 Mg Tab.Er.24h PO 25 mg BID DEVON Administration Protocol Pat Own Med ( 3 each 02/11/20 21:00 02/15/20 23:16 Thiothixene 5mg Caps PO 3 each ) BEDTIME DEVON Administration Sevelamer HCl 800 mg 02/11/20 09:00 02/16/20 09:20 Sevelamer Hcl 800 Mg Tablet PO 800 mg TID DEVON Administration Trazodone HCl 25 mg 02/11/20 18:28 Trazodone Hcl 25 Mg Halftab PO BEDTIME PRN Insomnia Vitamin B Complex/Folic Acid 1 cap 02/11/20 09:00 02/16/20 09:20 B Complex W-C No.20/Folic Acid Capsule PO 1 cap DAILY DEVON Administration Allergies Allergies Allergy/AdvReac Type Severity Reaction Status Date / Time No Known Allergies Allergy Mild NOT Unverified 12/19/19 17:37 APPLICABLE Assessment & Plan Assessment & Plan (1) Dialysis patient: Status: Acute Code(s): Z99.2 - Dependence on renal dialysis Assessment and Plan: 1. ESRD: cont HD mwf 2. Anemia 3. Cont meds: VPA/Navane and Lorazepam 4. Tremors: longstandiing issue Plan/recommendations: consider changing low sodium diet if tolerated due to consistent low sodium cont HD mwf; cont usu meds; protect LUE ( AVF arm); renal diet..2 gm K re strcited and low phos Encourage Lorazepam to help with anxiety and catatonia. Greater than 50% of the session was spent on counseling and/or coordination of care Patient educated on: diagnosis Informed Consent: further education needed Reason for contiued inpatient stay Substantial Risk for: inability to function, rapid decompensation and med/psych decompensation
[2020-02-16 21:12] VITALS: TEMP 35.6
[2020-02-16] MEDS: Divalproex Sodium ER 500 MG TAB.ER.24H 1000 MG PO (21:13)
[2020-02-16 21:18] VITALS: BP 142/98; PULSE 98
[2020-02-17 05:55] VITALS: BP 128/82; PULSE 53; RESP 18; TEMP 35.9
--- NOTE | 2020-02-17 06:14 | HO.PSYCHPN ---
Subjective Subjective Reason For Visit: Bi Polar Interim History: Currently on HD via [facility]. Wants to go home. Improved over weekend with more interaction w staff. Im so weak . Denies PI. Will coordinate with re returning home and how close to baseline is he. Good response to [facility]. Review of Systems Review of Systems Yes Other (On HD MWF) Constitutional: Reports weakness Reports tremor(s) and Reports weakness Mental Status Exam Mental Status Exam Patient Appearance: Disheveled, Unkempt and Bizarre Patient Orientation: Person, Place, Time and Situation Level of Consciousness: Restless Patient Behavior: Guarded, Suspicious, Restless and Uncooperative Mood Description: Anxious, Labile and Apprehensive Affect Description: Suspicious Speech Pattern: Perseverating and Rambling Diagnostics Vital Signs (24Hr): Vital Signs - 24 hr 02/16/20 09:20 02/16/20 21:12 02/16/20 21:18 Temperature 96.0 F L Pulse Rate 77 98 Blood Pressure 112/69 142/98 H Body Mass Index 30.9 Labs Results: 02/11/20 15:25 02/15/20 07:40 Labs: Laboratory Results - last 48 hr 02/15/20 07:40 Sodium 131 L Potassium 4.1 Chloride 94 L Carbon Dioxide 20 L Anion Gap 21 H BUN 36 H Creatinine 7.64 H* Estim Creat Clear Calc 11.6 Estimated GFR 7 Fasting Glucose 98 Calcium 9.6 Total Bilirubin 0.5 AST 58 H ALT 26 Alkaline Phosphatase 53 Total Protein 7.4 Albumin 4.7 Medications Medications Current Medications Generic Name Dose Route Start Last Admin Trade Name Freq PRN Reason Stop Dose Admin Acetaminophen 650 mg 02/11/20 18:28 Acetaminophen 325 Mg Tablet PO Q6H PRN Headache/Pain Mild Scale (1-3) Amlodipine Besylate 5 mg 02/11/20 09:00 02/16/20 09:20 Amlodipine Besylate 5 Mg Tablet PO 5 mg DAILY DEVON Administration Protocol Benztropine Mesylate 2 mg 02/13/20 09:00 02/16/20 21:13 Benztropine Mesylate 1 Mg Tablet PO 2 mg BID DEVON Administration Divalproex Sodium 1,000 mg 02/13/20 21:00 02/16/20 21:13 Divalproex Sodium Er 500 Mg Tab.Er.24h PO 1,000 mg BEDTIME DEVON Administration Hydroxyzine HCl 25 mg 02/11/20 18:28 Hydroxyzine Hcl 25 Mg Tablet PO BEDTIME PRN Anxiety Lorazepam 1 mg 02/12/20 12:42 Lorazepam 1 Mg Tablet PO Q4H PRN Anxiety Lorazepam 1 mg 02/13/20 09:00 02/16/20 21:23 Lorazepam 1 Mg Tablet PO Not Given TID DEVON Metoprolol Succinate 25 mg 02/13/20 09:00 02/16/20 21:18 Metoprolol Succinate Er 25 Mg Tab.Er.24h PO 25 mg BID DEVON Administration Protocol Pat Own Med ( 3 each 02/11/20 21:00 02/16/20 21:13 Thiothixene 5mg Caps PO 3 each ) BEDTIME DEVON Administration Sevelamer HCl 800 mg 02/11/20 09:00 02/16/20 21:13 Sevelamer Hcl 800 Mg Tablet PO 800 mg TID DEVON Administration Trazodone HCl 25 mg 02/11/20 18:28 Trazodone Hcl 25 Mg Halftab PO BEDTIME PRN Insomnia Vitamin B Complex/Folic Acid 1 cap 02/11/20 09:00 02/16/20 09:20 B Complex W-C No.20/Folic Acid Capsule PO 1 cap DAILY DEVON Administration Allergies Allergies Allergy/AdvReac Type Severity Reaction Status Date / Time No Known Allergies Allergy Mild NOT Unverified 12/19/19 17:37 APPLICABLE Assessment & Plan Assessment & Plan (1) Dialysis patient: Status: Acute Code(s): Z99.2 - Dependence on renal dialysis Assessment and Plan: 1. ESRD: cont HD mwf 2. Anemia 3. Psych issues Ct w m meds as prescribed. 4. Tremors: longstandiing issue REC: no new recs; cont HD mwf; cont usu meds; protect LUE ( AVF arm); renal diet..2 gm K restrcited and low phos Greater than 50% of the session was spent on counseling and/or coordination of care
[2020-02-17] MEDS: LORazepam 1 MG TABLET PO ×2 (14:51→20:49)
[2020-02-17 15:03] VITALS: BP 120/66; PULSE 88
[2020-02-17] MEDS: amLODIPine Besylate 5 MG TABLET PO (15:03)
[2020-02-17 15:08] VITALS: BP 120/66; PULSE 88
[2020-02-17] MEDS: Metoprolol Succinate ER 25 MG TAB.ER.24H PO (15:08)
--- NOTE | 2020-02-17 15:18 | P.PNNP_ITS ---
Subjective Subjective Interval history: Currently on HD via [facility]. Wantsto go home Physical Exam Vital Signs: Vital Signs: Last Vital Signs Temp 96.7 F L 02/17/20 05:55 Pulse 88 02/17/20 15:08 Resp 18 02/17/20 05:55 BP 120/66 02/17/20 15:08 Pulse Ox 99 02/16/20 06:00 Body Mass Index 30.9 Appearance: Alert. Oriented X3. No acute distress. Eyes: Pupils equal, round and reactive to light. ENT: Pharynx normal. Neck: Normal inspection. Neck supple. No lymph nodes noted. No crepitus CVS: Normal heart rate and rhythm. Pulses normal. Normal S1 and S2 Respiratory: No respiratory distress. Breath sounds normal. No Wheezing. No r ales Abdomen: Soft and nontender. No rigidity. No distention. good BS x4 Skin: Skin warm and dry. Normal skin color. Normal skin turgor. Extremities: +2 bilateral pitting edema, wearing compression stockings Neuro: Oriented X 3. N no slurred speech. Patient has a baseline resting tremor in both hands, patient states it has been going on for several years due to his medications psych: Patient does have a flat affect, calm, cooperative, well kept, answering questions appropriately, normal thought process Assessment & Plan Assessment and plan (1) Dialysis patient: Problem details: ESRD Tremor Anemia Pysch REC: cont HD 3x/wk; cont routoine meds; low K diet Status: Acute Assessment and Plan: 1. ESRD: cont HD mwf 2. Anemia 3. Psych issues: adm to psych unit 4. Tremors: longstandiing issue REC: no new recs; cont HD mwf; cont usu meds; protect LUE ( AVF arm); renal diet..2 gm K restrcited and low phos Time Spent With Patient Time: Total time spent is greater than 50% in coordination of care (as documented) at patient's floor/unit and/or counseling patient: Procedures Abscess I/D Date of Service: 02/17/20
[2020-02-17 18:00] VITALS: RESP 16
[2020-02-17] MEDS: Divalproex Sodium ER 500 MG TAB.ER.24H 1000 MG PO (20:49)
[2020-02-17] MEDS: Benztropine Mesylate 1 MG TABLET 2 MG PO (20:49)
--- NOTE | 2020-02-17 23:23 | PC.NURSE ---
Patient's called and said she was very concerned about the patient and how he has changed so much from the person he used to be. The indicated that her has always been very positive and was even out shopping 3 weeks ago. The would like to receive a call from the psychiatrist to find out why her is calling her saying he is not able to eat. 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 She indicated that 12:30 pm would be a good time as well as 2:45 pm to 3:00 pm. 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
--- NOTE | 2020-02-18 05:07 | HO.PSYCHPN ---
Subjective Subjective Reason For Visit: Bi Polar Interim History: Currently on HD via [facility]. Wants to go home. Improved over weekend with more interaction w staff. Im so weak . Denies PI but appears paranoid. Refused meds till he speraks w Dr Pena. Left for . Good response to Loraz. Will try to increase meds if pt allows Review of Systems Constitutional: Reports weakness Reports tremor(s) and Reports weakness Mental Status Exam Mental Status Exam Patient Appearance: Disheveled, Unkempt and Bizarre Patient Orientation: Person, Place, Time and Situation Level of Consciousness: Restless Patient Behavior: Guarded, Suspicious, Restless and Uncooperative Mood Description: Anxious, Labile and Apprehensive Affect Description: Suspicious Speech Pattern: Perseverating and Rambling Diagnostics Vital Signs (24Hr): Vital Signs - 24 hr 02/17/20 05:55 02/17/20 15:03 02/17/20 15:08 Temperature 96.7 F L Pulse Rate 53 88 88 Respiratory Rate 18 Blood Pressure 128/82 120/66 120/66 02/17/20 18:00 Temperature Pulse Rate Respiratory Rate 16 Blood Pressure Body Mass Index 30.9 Labs Results: 02/11/20 15:25 02/15/20 07:40 Medications Medications Current Medications Generic Name Dose Route Start Last Admin Trade Name Freq PRN Reason Stop Dose Admin Acetaminophen 650 mg 02/11/20 18:28 Acetaminophen 325 Mg Tablet PO Q6H PRN Headache/Pain Mild Scale (1-3) Amlodipine Besylate 5 mg 02/11/20 09:00 02/17/20 15:03 Amlodipine Besylate 5 Mg Tablet PO 5 mg DAILY DEVON Administration Protocol Benztropine Mesylate 2 mg 02/13/20 09:00 02/17/20 20:49 Benztropine Mesylate 1 Mg Tablet PO 2 mg BID DEVON Administration Divalproex Sodium 1,000 mg 02/13/20 21:00 02/17/20 20:49 Divalproex Sodium Er 500 Mg Tab.Er.24h PO 1,000 mg BEDTIME DEVON Administration Hydroxyzine HCl 25 mg 02/11/20 18:28 Hydroxyzine Hcl 25 Mg Tablet PO BEDTIME PRN Anxiety Lorazepam 1 mg 02/12/20 12:42 Lorazepam 1 Mg Tablet PO Q4H PRN Anxiety Lorazepam 1 mg 02/13/20 09:00 02/17/20 20:49 Lorazepam 1 Mg Tablet PO 1 mg TID DEVON Administration Metoprolol Succinate 25 mg 02/13/20 09:00 02/17/20 20:49 Metoprolol Succinate Er 25 Mg Tab.Er.24h PO Not Given BID DEVON Protocol Pat Own Med ( 3 each 02/11/20 21:00 02/17/20 20:52 Thiothixene 5mg Caps PO 3 each ) BEDTIME DEVON Administration Sevelamer HCl 800 mg 02/11/20 09:00 02/17/20 20:49 Sevelamer Hcl 800 Mg Tablet PO 800 mg TID DEVON Administration Trazodone HCl 25 mg 02/11/20 18:28 Trazodone Hcl 25 Mg Halftab PO BEDTIME PRN Insomnia Vitamin B Complex/Folic Acid 1 cap 02/11/20 09:00 02/17/20 15:00 B Complex W-C No.20/Folic Acid Capsule PO 1 cap DAILY DEVON Administration Allergies Allergies Allergy/AdvReac Type Severity Reaction Status Date / Time No Known Allergies Allergy Mild NOT Unverified 12/19/19 17:37 APPLICABLE Assessment & Plan Assessment & Plan (1) Dialysis patient: Status: Acute Code(s): Z99.2 - Dependence on renal dialysis Assessment and Plan: 1. ESRD: cont HD mwf 2. Anemia 3. Psych issues Ct w m meds as prescribed. 4. Tremors: longstandiing issue REC: no new recs; cont HD mwf; cont usu meds; protect LUE ( AVF arm); renal diet..2 gm K restrcited and low phos Greater than 50% of the session was spent on counseling and/or coordination of care
[2020-02-18 13:49] VITALS: BP 159/87; PULSE 73
[2020-02-18 13:51] VITALS: RESP 16; TEMP 36.4; O2SAT 97
[2020-02-18 18:00] VITALS: RESP 16
--- NOTE | 2020-02-18 18:23 | P.PNPSI_ITS ---
Subjective Subjective Date of Service: 02/18/20 Reason For Visit: Bi Polar Review of Systems Constitutional: Reports weakness Reports tremor(s) and Reports weakness Diagnostics Vital Signs (24Hr): Vital Signs - 24 hr 02/18/20 13:49 02/18/20 13:51 Temperature 97.6 F Pulse Rate 73 Respiratory Rate 16 Blood Pressure 159/87 H Pulse Oximetry 97 Body Mass Index 30.9 Labs Results: 02/11/20 15:25 02/15/20 07:40 Medications Medications Current Medications Generic Name Dose Route Start Last Admin Trade Name Freq PRN Reason Stop Dose Admin Acetaminophen 650 mg 02/11/20 18:28 Acetaminophen 325 Mg Tablet PO Q6H PRN Headache/Pain Mild Scale (1-3) Amlodipine Besylate 5 mg 02/11/20 09:00 02/18/20 13:49 Amlodipine Besylate 5 Mg Tablet PO Not Given DAILY [facility] Protocol Benztropine Mesylate 2 mg 02/13/20 09:00 02/18/20 13:49 Benztropine Mesylate 1 Mg Tablet PO Not Given BID DEVON Divalproex Sodium 1,000 mg 02/13/20 21:00 02/17/20 20:49 Divalproex Sodium Er 500 Mg Tab.Er.24h PO 1,000 mg BEDTIME DEVON Administration Hydroxyzine HCl 25 mg 02/11/20 18:28 Hydroxyzine Hcl 25 Mg Tablet PO BEDTIME PRN Anxiety Lorazepam 1 mg 02/12/20 12:42 Lorazepam 1 Mg Tablet PO Q4H PRN Anxiety Lorazepam 1 mg 02/13/20 09:00 02/18/20 15:05 Lorazepam 1 Mg Tablet PO Not Given TID DEVON Metoprolol Succinate 25 mg 02/13/20 09:00 02/18/20 13:50 Metoprolol Succinate Er 25 Mg Tab.Er.24h PO Not Given BID DEVON Protocol Pat Own Med ( 3 each 02/11/20 21:00 02/17/20 20:52 Thiothixene 5mg Caps PO 3 each ) BEDTIME DEVON Administration Sevelamer HCl 800 mg 02/11/20 09:00 02/18/20 15:05 Sevelamer Hcl 800 Mg Tablet PO Not Given TID DEVON Trazodone HCl 25 mg 02/11/20 18:28 Trazodone Hcl 25 Mg Halftab PO BEDTIME PRN Insomnia Vitamin B Complex/Folic Acid 1 cap 02/11/20 09:00 02/18/20 13:49 B Complex W-C No.20/Folic Acid Capsule PO Not Given DAILY DEVON Allergies Allergies Allergy/AdvReac Type Severity Reaction Status Date / Time No Known Allergies Allergy Mild NOT Unverified 12/19/19 17:37 APPLICABLE Assessment & Plan Greater than 50% of the session was spent on counseling and/or coordination of care
--- NOTE | 2020-02-19 04:34 | HO.PSYCHPN ---
Subjective Subjective Reason For Visit: Bi Polar Interim History: Currently on HD via [facility]. Wants to go home. as per RN/MD he is refusing to take meds at times. Needed much coaxing. Remains illogical re wanting to speak with Dr Pena then take meds. Refused meds even after encouragement from Dr Pena. Limited appetite. Fixated on feeling weak, not eating. Likely paranoid but does not elaborate. Ct attempts to contact Review of Systems Constitutional: Reports weakness Reports tremor(s) and Reports weakness Mental Status Exam Mental Status Exam Patient Appearance: Disheveled, Unkempt and Bizarre Patient Orientation: Person, Place, Time and Situation Level of Consciousness: Restless Patient Behavior: Guarded, Suspicious, Restless and Uncooperative Mood Description: Anxious, Labile and Apprehensive Affect Description: Suspicious Speech Pattern: Perseverating and Rambling Diagnostics Vital Signs (24Hr): Vital Signs - 24 hr 02/18/20 13:49 02/18/20 13:51 02/18/20 18:00 Temperature 97.6 F Pulse Rate 73 Respiratory Rate 16 16 Blood Pressure 159/87 H Pulse Oximetry 97 Body Mass Index 30.9 Labs Results: 02/11/20 15:25 02/15/20 07:40 Medications Medications Current Medications Generic Name Dose Route Start Last Admin Trade Name Freq PRN Reason Stop Dose Admin Acetaminophen 650 mg 02/11/20 18:28 Acetaminophen 325 Mg Tablet PO Q6H PRN Headache/Pain Mild Scale (1-3) Amlodipine Besylate 5 mg 02/11/20 09:00 02/18/20 13:49 Amlodipine Besylate 5 Mg Tablet PO Not Given DAILY DEVON Protocol Benztropine Mesylate 2 mg 02/13/20 09:00 02/18/20 21:22 Benztropine Mesylate 1 Mg Tablet PO Not Given BID DEVON Divalproex Sodium 1,000 mg 02/13/20 21:00 02/18/20 21:22 Divalproex Sodium Er 500 Mg Tab.Er.24h PO Not Given BEDTIME DEVON Hydroxyzine HCl 25 mg 02/11/20 18:28 Hydroxyzine Hcl 25 Mg Tablet PO BEDTIME PRN Anxiety Lorazepam 1 mg 02/12/20 12:42 Lorazepam 1 Mg Tablet PO Q4H PRN Anxiety Lorazepam 1 mg 02/13/20 09:00 02/18/20 21:23 Lorazepam 1 Mg Tablet PO Not Given TID DEVON Metoprolol Succinate 25 mg 02/13/20 09:00 02/18/20 21:24 Metoprolol Succinate Er 25 Mg Tab.Er.24h PO Not Given BID DEVON Protocol Pat Own Med ( 3 each 02/11/20 21:00 02/18/20 21:23 Thiothixene 5mg Caps PO Not Given ) BEDTIME DEVON Sevelamer HCl 800 mg 02/11/20 09:00 02/18/20 21:22 Sevelamer Hcl 800 Mg Tablet PO Not Given TID DEVON Trazodone HCl 25 mg 02/11/20 18:28 Trazodone Hcl 25 Mg Halftab PO BEDTIME PRN Insomnia Vitamin B Complex/Folic Acid 1 cap 02/11/20 09:00 02/18/20 13:49 B Complex W-C No.20/Folic Acid Capsule PO Not Given DAILY DEVON Allergies Allergies Allergy/AdvReac Type Severity Reaction Status Date / Time No Known Allergies Allergy Mild NOT Unverified 12/19/19 17:37 APPLICABLE Assessment & Plan Assessment & Plan (1) Dialysis patient: Status: Acute Code(s): Z99.2 - Dependence on renal dialysis Assessment and Plan: 1. ESRD: cont HD mwf 2. Anemia 3. Psych issues:increase Navane. Encourage ambulation, appetite 4. Tremors: longstandiing issue Disc: I again strongly encoiuraged him to take his meds so he will get better faster and be able to go home sooner REC: cont HD mwf; cont usu meds; protect LUE ( AVF arm); renal diet..2 gm K restrcited and low phos; Greater than 50% of the session was spent on counseling and/or coordination of care
[2020-02-19 05:55] VITALS: BP 139/87; PULSE 68; RESP 18; TEMP 36.8
[2020-02-19] MEDS: Divalproex Sodium ER 500 MG TAB.ER.24H 1000 MG PO (15:02)
[2020-02-19] MEDS: LORazepam 1 MG TABLET PO ×2 (15:03→21:35)
--- NOTE | 2020-02-19 16:59 | PM.PNNEP ---
Subjective Subjective Interval history: Currently on HD via [facility]. Wants to go home. as per RN/MD he is refusing to take meds at times Physical Exam Vital Signs: Vital Signs: Last Vital Signs Temp 96.7 F L 02/17/20 05:55 Pulse 88 02/17/20 15:08 Resp 18 02/17/20 05:55 BP 120/66 02/17/20 15:08 Pulse Ox 99 02/16/20 06:00 Body Mass Index 30.9 Appearance: Alert. Oriented X3. No acute distress. Eyes: Pupils equal, round and reactive to light. ENT: Pharynx normal. Neck: Normal inspection. Neck supple. No lymph nodes noted. No crepitus CVS: Normal heart rate and rhythm. Pulses normal. Normal S1 and S2 Respiratory: No respiratory distress. Breath sounds normal. No Wheezing. No rales Abdomen: Soft and nontender. No rigidity. No distention. good BS x4 Skin: Skin warm and dry. Normal skin color. Normal skin turgor. Extremities: +2 bilateral pitting edema, wearing compression stockings Neuro: Oriented X 3. N no slurred speech. Patient has a baseline resting tremor in both hands, patient states it has been going on for several years due to his medications psych: Patient does have a flat affect, calm, cooperative, well kept, answering questions appropriately, normal thought process Const: Other: Last Vital Signs Temp 96.7 F L 02/17/20 05:55 Pulse 88 02/17/20 15:08 Resp 18 02/17/20 05:55 BP 120/66 02/17/20 15:08 Pulse Ox 99 02/16/20 06:00 Body Mass Index 30.9 Cardio: Other: Last Vital Signs Temp 96.7 F L 02/17/20 05:55 Pulse 88 02/17/20 15:08 Resp 18 02/17/20 05:55 BP 120/66 02/17/20 15:08 Pulse Ox 99 02/16/20 06:00 Body Mass Index 30.9 Assessment & Plan Assessment and plan (1) Dialysis patient: Problem details: ESRD Tremor Anemia Pysch REC: cont HD 3x/wk; cont routoine meds; low K diet Status: Acute Assessment and Plan: 1. ESRD: cont HD mwf 2. Anemia 3. Psych issues: adm to psych unit 4. Tremors: longstandiing issue Disc: I again strongly encoiuraged him to take his meds so he will get better faster and be able to go home sooner REC: cont HD mwf; cont usu meds; protect LUE ( AVF arm); renal diet..2 gm K restrcited and low phos; Time Spent With Patient Time: Total time spent is greater than 50% in coordination of care (as documented) at patient's floor/unit and/or counseling patient: Procedures Abscess I/D Date of Service: 02/19/20
[2020-02-19 18:00] VITALS: TEMP 35.8
[2020-02-19] MEDS: Benztropine Mesylate 1 MG TABLET 2 MG PO (21:35)
--- NOTE | 2020-02-20 03:27 | HO.PSYCHPN ---
Subjective Subjective Reason For Visit: Bi Polar Interim History: Currently on HD via [facility]. Wants to go home. as per RN/MD he is refusing to take meds at times. Did take some today Needed much coaxing. Remains illogical re wanting to speak with Dr Pena then take meds. Refused meds even after encouragement from Dr Pena. Limited appetite. Fixated on feeling weak, not eating. Likely paranoid but does not elaborate Long DW Sujata: Dx ? Bipolar w PI, pt of Dr Mackey. No SGA trials. Agree to transition to OLZ slowly. More cooperative today Review of Systems Constitutional: Reports weakness Reports tremor(s) and Reports weakness Mental Status Exam Mental Status Exam Patient Appearance: Disheveled, Unkempt and Bizarre Patient Orientation: Person, Place, Time and Situation Level of Consciousness: Restless Patient Behavior: Guarded, Suspicious, Restless and Uncooperative Mood Description: Anxious, Labile and Apprehensive Affect Description: Suspicious Speech Pattern: Perseverating and Rambling Diagnostics Vital Signs (24Hr): Vital Signs - 24 hr 02/19/20 05:55 02/19/20 18:00 Temperature 98.2 F 96.4 F L Pulse Rate 68 Respiratory Rate 18 Blood Pressure 139/87 Body Mass Index 30.9 Labs Results: 02/11/20 15:25 02/15/20 07:40 Medications Medications Current Medications Generic Name Dose Route Start Last Admin Trade Name Freq PRN Reason Stop Dose Admin Acetaminophen 650 mg 02/11/20 18:28 Acetaminophen 325 Mg Tablet PO Q6H PRN Headache/Pain Mild Scale (1-3) Amlodipine Besylate 5 mg 02/11/20 09:00 02/19/20 14:09 Amlodipine Besylate 5 Mg Tablet PO Not Given DAILY DEVON Protocol Benztropine Mesylate 2 mg 02/13/20 09:00 02/19/20 21:35 Benztropine Mesylate 1 Mg Tablet PO 2 mg BID DEVON Administration Divalproex Sodium 1,000 mg 02/13/20 21:00 02/19/20 15:02 Divalproex Sodium Er 500 Mg Tab.Er.24h PO 1,000 mg BEDTIME DEVON Administration Hydroxyzine HCl 25 mg 02/11/20 18:28 Hydroxyzine Hcl 25 Mg Tablet PO BEDTIME PRN Anxiety Lorazepam 1 mg 02/12/20 12:42 Lorazepam 1 Mg Tablet PO Q4H PRN Anxiety Lorazepam 1 mg 02/13/20 09:00 02/19/20 21:35 Lorazepam 1 Mg Tablet PO 1 mg TID DEVON Administration Metoprolol Succinate 25 mg 02/13/20 09:00 02/19/20 21:40 Metoprolol Succinate Er 25 Mg Tab.Er.24h PO Not Given BID DEVON Protocol Non-Formulary Medication 4 each 02/20/20 21:00 Patient Own Medication PO BEDTIME DEVON Sevelamer HCl 800 mg 02/11/20 09:00 02/19/20 21:34 Sevelamer Hcl 800 Mg Tablet PO 800 mg TID DEVON Administration Trazodone HCl 25 mg 02/11/20 18:28 Trazodone Hcl 25 Mg Halftab PO BEDTIME PRN Insomnia Vitamin B Complex/Folic Acid 1 cap 02/11/20 09:00 02/19/20 14:09 B Complex W-C No.20/Folic Acid Capsule PO Not Given DAILY DEVON Allergies Allergies Allergy/AdvReac Type Severity Reaction Status Date / Time No Known Allergies Allergy Mild NOT Unverified 12/19/19 17:37 APPLICABLE Assessment & Plan Assessment & Plan (1) Dialysis patient: Status: Acute Code(s): Z99.2 - Dependence on renal dialysis Assessment and Plan: 1. ESRD: cont HD mwf 2. Anemia 3. Psych issues:decrease Navane. Add OLZ Encourage ambulation, appetite 4. Tremors: longstandiing issue Disc: I again strongly encoiuraged him to take his meds so he will get better faster and be able to go home sooner REC: cont HD mwf; cont usu meds; protect LUE ( AVF arm); renal diet..2 gm K restrcited and low phos; Greater than 50% of the session was spent on counseling and/or coordination of care
[2020-02-20 09:28] VITALS: BP 137/97; PULSE 78
[2020-02-20] MEDS: LORazepam 1 MG TABLET PO ×3 (09:28→20:40)
[2020-02-20] MEDS: Metoprolol Succinate ER 25 MG TAB.ER.24H PO (09:28)
[2020-02-20] MEDS: amLODIPine Besylate 5 MG TABLET PO (09:28)
[2020-02-20] MEDS: Benztropine Mesylate 1 MG TABLET 2 MG PO ×2 (09:28→20:40)
[2020-02-20 09:32] VITALS: RESP 16; TEMP 36.1; O2SAT 99
[2020-02-20 13:50] VITALS: BMI 28.3
[2020-02-20] MEDS: OLANZapine ODT 10 MG TAB.RAPDIS TRANSLINGU (20:40)
[2020-02-20] MEDS: Divalproex Sodium ER 500 MG TAB.ER.24H 1000 MG PO (20:40)
[2020-02-20 20:45] VITALS: TEMP 35.8
--- NOTE | 2020-02-21 05:07 | HO.PSYCHPN ---
Subjective Subjective Reason For Visit: Bi Polar Interim History: Pt is on HD. Somewhat more cooperative with meds and food. Remains rigid and fixated on meds i have been on at home . I tried to explain rationale for slow switch to OLZ. Pt reluctantly agreed but wants to ct marcus Crandall despite severe tremors they dont bother me . Also complained about HD and wonders if ii can ct this . c/o RUE pain Review of Systems Constitutional: Reports weakness Reports tremor(s) and Reports weakness Mental Status Exam Mental Status Exam Patient Appearance: Disheveled, Unkempt and Bizarre Patient Orientation: Person, Place, Time and Situation Level of Consciousness: Restless Patient Behavior: Guarded, Suspicious, Restless and Uncooperative Mood Description: Anxious, Labile and Apprehensive Affect Description: Suspicious Speech Pattern: Perseverating and Rambling Diagnostics Vital Signs (24Hr): Vital Signs - 24 hr 02/20/20 09:28 02/20/20 09:32 02/20/20 20:45 Temperature 97.0 F 96.5 F L Pulse Rate 78 Respiratory Rate 16 Blood Pressure 137/97 H Pulse Oximetry 99 Body Mass Index 28.3 Labs Results: 02/11/20 15:25 02/15/20 07:40 Medications Medications Current Medications Generic Name Dose Route Start Last Admin Trade Name Fadyq PRN Reason Stop Dose Admin Acetaminophen 650 mg 02/11/20 18:28 Acetaminophen 325 Mg Tablet PO Q6H PRN Headache/Pain Mild Scale (1-3) Amlodipine Besylate 5 mg 02/11/20 09:00 02/20/20 09:28 Amlodipine Besylate 5 Mg Tablet PO 5 mg DAILY DEVON Administration Protocol Benztropine Mesylate 2 mg 02/13/20 09:00 02/20/20 20:40 Benztropine Mesylate 1 Mg Tablet PO 2 mg BID DEVON Administration Divalproex Sodium 1,000 mg 02/13/20 21:00 02/20/20 20:40 Divalproex Sodium Er 500 Mg Tab.Er.24h PO 1,000 mg BEDTIME DEVON Administration Hydroxyzine HCl 25 mg 02/11/20 18:28 Hydroxyzine Hcl 25 Mg Tablet PO BEDTIME PRN Anxiety Lorazepam 1 mg 02/12/20 12:42 Lorazepam 1 Mg Tablet PO Q4H PRN Anxiety Lorazepam 1 mg 02/13/20 09:00 02/20/20 20:40 Lorazepam 1 Mg Tablet PO 1 mg TID DEVON Administration Metoprolol Succinate 25 mg 02/13/20 09:00 02/20/20 20:59 Metoprolol Succinate Er 25 Mg Tab.Er.24h PO Not Given BID DEVON Protocol Patient Own 3 each 02/20/20 21:00 02/20/20 20:44 Medication ( PO 3 each Thiothixene 5 Mg) BEDTIME DEVON Administration Olanzapine 10 mg 02/20/20 21:00 02/20/20 20:40 Olanzapine Odt 10 Mg Tab.Rapdis TRANSLINGU 10 mg BEDTIME DEVON Administration Sevelamer HCl 800 mg 02/11/20 09:00 02/20/20 20:40 Sevelamer Hcl 800 Mg Tablet PO 800 mg TID DEVON Administration Trazodone HCl 25 mg 02/11/20 18:28 Trazodone Hcl 25 Mg Halftab PO BEDTIME PRN Insomnia Vitamin B Complex/Folic Acid 1 cap 02/11/20 09:00 02/20/20 09:28 B Complex W-C No.20/Folic Acid Capsule PO 1 cap DAILY DEVON Administration Allergies Allergies Allergy/AdvReac Type Severity Reaction Status Date / Time No Known Allergies Allergy Mild NOT Unverified 12/19/19 17:37 APPLICABLE Assessment & Plan Assessment & Plan (1) Dialysis patient: Status: Acute Code(s): Z99.2 - Dependence on renal dialysis Assessment and Plan: 1. ESRD: cont HD mwf 2. Anemia 3. Psych issues:decrease Navane. Add OLZ Encourage ambulation, appetite 4. Tremors: longstandiing issue Disc: I again strongly encoiuraged him to take his meds so he will get better faster and be able to go home sooner REC: cont HD mwf; cont usu meds; protect LUE ( AVF arm); renal diet..2 gm K restrcited and low phos; Greater than 50% of the session was spent on counseling and/or coordination of care
[2020-02-21 08:16] VITALS: BP 192/94; PULSE 63; RESP 14; TEMP 36.1; O2SAT 100
--- NOTE | 2020-02-21 13:49 | PM.PNNEP ---
Subjective Subjective Interval history: Pt is on HD Physical Exam Vital Signs: Vital Signs: Last Vital Signs Temp 97.0 F 02/21/20 08:16 Pulse 63 02/21/20 08:16 Resp 14 02/21/20 08:16 BP 192/94 H 02/21/20 08:16 Pulse Ox 100 02/21/20 08:16 Body Mass Index 28.3 Assessment & Plan Assessment and plan (1) Dialysis patient: Problem details: ESRD Tremor Anemia Pysch REC: cont HD 3x/wk; cont routine meds; low K diet Status: Acute Procedures Abscess I/D Date of Service: 02/21/20
[2020-02-21 14:18] VITALS: BP 211/94; PULSE 94
[2020-02-21] MEDS: amLODIPine Besylate 5 MG TABLET PO (14:18)
[2020-02-21] MEDS: LORazepam 1 MG TABLET PO ×2 (14:19→21:07)
[2020-02-21] MEDS: Metoprolol Succinate ER 25 MG TAB.ER.24H PO ×2 (14:20→21:16)
[2020-02-21] MEDS: Benztropine Mesylate 1 MG TABLET 2 MG PO ×2 (14:21→21:07)
[2020-02-21 14:50] VITALS: BP 120/68
[2020-02-21] MEDS: Divalproex Sodium ER 500 MG TAB.ER.24H 1000 MG PO (21:07)
[2020-02-21] MEDS: OLANZapine ODT 10 MG TAB.RAPDIS TRANSLINGU (21:07)
[2020-02-21 21:16] VITALS: BP 112/73; PULSE 88
[2020-02-21 21:21] VITALS: TEMP 35.6
[2020-02-22] MEDS: Benztropine Mesylate 1 MG TABLET 2 MG PO ×2 (09:31→20:26)
[2020-02-22] MEDS: Metoprolol Succinate ER 25 MG TAB.ER.24H PO ×2 (09:33→20:29)
[2020-02-22] MEDS: amLODIPine Besylate 5 MG TABLET PO (09:40)
[2020-02-22 09:45] VITALS: PULSE 88; TEMP 36.4; O2SAT 99
[2020-02-22] MEDS: LORazepam 1 MG TABLET PO (20:25)
[2020-02-22] MEDS: OLANZapine ODT 10 MG TAB.RAPDIS TRANSLINGU (20:25)
[2020-02-22] MEDS: Divalproex Sodium ER 500 MG TAB.ER.24H 1000 MG PO (20:26)
[2020-02-23 06:00] VITALS: BP 136/81; PULSE 57; TEMP 36.3
[2020-02-23 09:45] VITALS: BP 136/81; PULSE 57
[2020-02-23] MEDS: Metoprolol Succinate ER 25 MG TAB.ER.24H PO ×2 (09:45→20:08)
[2020-02-23] MEDS: Benztropine Mesylate 1 MG TABLET 2 MG PO ×2 (09:46→20:08)
[2020-02-23 09:47] VITALS: BP 136/81; PULSE 57
[2020-02-23] MEDS: amLODIPine Besylate 5 MG TABLET PO (09:47)
[2020-02-23] MEDS: Divalproex Sodium ER 500 MG TAB.ER.24H 1000 MG PO (20:02)
[2020-02-23] MEDS: OLANZapine ODT 10 MG TAB.RAPDIS TRANSLINGU (20:09)
--- NOTE | 2020-02-23 23:27 | P.PNPSI_ITS ---
Subjective Subjective Date of Service: 02/22/20 Reason For Visit: Bi Polar Interim History: Vitals reviewed Labs reviewed Pt seen, chart reviewed and case discussed with nursing staff Pt lying in bed resting on approach. He opens his eyes when addressed, but closes them inbetween questions. He says he's good and knows he's at [place]. He says the reason he's here is because my were too low. Pt denies any other complaints and agrees to ask for help if he needs it. Staff reports pt is med adherent and that he's walking on his own adequately. Medication Compliance: Yes Attending Groups: No Review of Systems Constitutional: Reports weakness Reports tremor(s) and Reports weakness Mental Status Exam Mental Status Exam Patient Appearance: Appropriate and Unkempt Patient Orientation: Person, Place and Situation Level of Consciousness: Awake and Drowsy Patient Behavior: Appropriate and Poor Eye Contact Mood Description: Calm Affect Description: Calm and Blunted Ability to Follow Directions: Fair Speech Pattern: Clear and Appropriate Thought Process: Goal Oriented Thought Content: positive for [place] Judgement: Fair Judgement and Insight: appear currently intact Diagnostics Vital Signs (24Hr): Vital Signs - 24 hr 02/23/20 06:00 02/23/20 09:45 02/23/20 09:47 Temperature 97.4 F Pulse Rate 57 57 57 Blood Pressure 136/81 136/81 136/81 Body Mass Index 28.3 Labs Results: 02/11/20 15:25 02/15/20 07:40 Medications Medications Current Medications Generic Name Dose Route Start Last Admin Trade Name Freq PRN Reason Stop Dose Admin Acetaminophen 650 mg 02/11/20 18:28 Acetaminophen 325 Mg Tablet PO Q6H PRN Headache/Pain Mild Scale (1-3) Amlodipine Besylate 5 mg 02/11/20 09:00 02/23/20 09:47 Amlodipine Besylate 5 Mg Tablet PO 5 mg DAILY DEVON Administration Protocol Benztropine Mesylate 2 mg 02/13/20 09:00 02/23/20 20:08 Benztropine Mesylate 1 Mg Tablet PO 1 mg BID DEVON Administration Divalproex Sodium 1,000 mg 02/13/20 21:00 02/23/20 20:02 Divalproex Sodium Er 500 Mg Tab.Er.24h PO 1,000 mg BEDTIME DEVON Administration Hydroxyzine HCl 25 mg 02/11/20 18:28 Hydroxyzine Hcl 25 Mg Tablet PO BEDTIME PRN Anxiety Metoprolol Succinate 25 mg 02/13/20 09:00 02/23/20 20:08 Metoprolol Succinate Er 25 Mg Tab.Er.24h PO 25 mg BID DEVON Administration Protocol Patient Own 3 each 02/20/20 21:00 02/23/20 20:09 Medication ( PO 3 each Thiothixene 5 Mg) BEDTIME DEVON Administration Olanzapine 10 mg 02/20/20 21:00 02/23/20 20:09 Olanzapine Odt 10 Mg Tab.Rapdis TRANSLINGU 10 mg BEDTIME DEVON Administration Sevelamer HCl 800 mg 02/11/20 09:00 02/23/20 20:07 Sevelamer Hcl 800 Mg Tablet PO 800 mg TID DEVON Administration Trazodone HCl 25 mg 02/11/20 18:28 Trazodone Hcl 25 Mg Halftab PO BEDTIME PRN Insomnia Vitamin B Complex/Folic Acid 1 cap 02/11/20 09:00 02/23/20 09:47 B Complex W-C No.20/Folic Acid Capsule PO 1 cap DAILY DEVON Administration Allergies Allergies Allergy/AdvReac Type Severity Reaction Status Date / Time No Known Allergies Allergy Mild NOT Unverified 12/19/19 17:37 APPLICABLE Assessment & Plan PT with bipolar disorder, on dialysis. Pt is stable Continue with primary team tx plan
--- NOTE | 2020-02-23 23:48 | P.PNPSI_ITS ---
Subjective Subjective Date of Service: 02/23/20 Reason For Visit: Bi Polar Interim History: Vitals reviewed Labs reviewed Pt seen, chart reviewed and case discussed with nursing staff No changes from yesterday. Pt lying in bed resting with eyes mostly remaining closed inbetween answering writers questions. Pt does not remember race and sports book writer (though race and sports book writer does have on mask and googles). Pt says he's good and that he has no complaints and does not need anything. He says he will ask staff if this changes. Staff reports pt is med adherent and without behavioral incident Medication Compliance: Yes Attending Groups: No Review of Systems Constitutional: Reports weakness Reports tremor(s) and Reports weakness Mental Status Exam Mental Status Exam Patient Appearance: Unkempt Patient Orientation: Person, Place and Situation Level of Consciousness: Awake and Drowsy Patient Behavior: Appropriate and Confused Mood Description: Calm and Withdrawn Affect Description: Calm, Withdrawn and Blunted Ability to Follow Directions: Fair Speech Pattern: Clear and Appropriate Thought Process: Goal Oriented Thought Content: positive for [place] Judgement: Fair Judgement and Insight: appear intact Diagnostics Vital Signs (24Hr): Vital Signs - 24 hr 02/23/20 06:00 02/23/20 09:45 02/23/20 09:47 Temperature 97.4 F Pulse Rate 57 57 57 Blood Pressure 136/81 136/81 136/81 Body Mass Index 28.3 Labs Results: 02/11/20 15:25 02/15/20 07:40 Medications Medications Current Medications Generic Name Dose Route Start Last Admin Trade Name Freq PRN Reason Stop Dose Admin Acetaminophen 650 mg 02/11/20 18:28 Acetaminophen 325 Mg Tablet PO Q6H PRN Headache/Pain Mild Scale (1-3) Amlodipine Besylate 5 mg 02/11/20 09:00 02/23/20 09:47 Amlodipine Besylate 5 Mg Tablet PO 5 mg DAILY DEVON Administration Protocol Benztropine Mesylate 2 mg 02/13/20 09:00 02/23/20 20:08 Benztropine Mesylate 1 Mg Tablet PO 1 mg BID DEVON Administration Divalproex Sodium 1,000 mg 02/13/20 21:00 02/23/20 20:02 Divalproex Sodium Er 500 Mg Tab.Er.24h PO 1,000 mg BEDTIME DEVON Administration Hydroxyzine HCl 25 mg 02/11/20 18:28 Hydroxyzine Hcl 25 Mg Tablet PO BEDTIME PRN Anxiety Metoprolol Succinate 25 mg 02/13/20 09:00 02/23/20 20:08 Metoprolol Succinate Er 25 Mg Tab.Er.24h PO 25 mg BID DEVON Administration Protocol Patient Own 3 each 02/20/20 21:00 02/23/20 20:09 Medication ( PO 3 each Thiothixene 5 Mg) BEDTIME DEVON Administration Olanzapine 10 mg 02/20/20 21:00 02/23/20 20:09 Olanzapine Odt 10 Mg Tab.Rapdis TRANSLINGU 10 mg BEDTIME DEVON Administration Sevelamer HCl 800 mg 02/11/20 09:00 02/23/20 20:07 Sevelamer Hcl 800 Mg Tablet PO 800 mg TID DEVON Administration Trazodone HCl 25 mg 02/11/20 18:28 Trazodone Hcl 25 Mg Halftab PO BEDTIME PRN Insomnia Vitamin B Complex/Folic Acid 1 cap 02/11/20 09:00 02/23/20 09:47 B Complex W-C No.20/Folic Acid Capsule PO 1 cap DAILY DEVON Administration Allergies Allergies Allergy/AdvReac Type Severity Reaction Status Date / Time No Known Allergies Allergy Mild NOT Unverified 12/19/19 17:37 APPLICABLE Assessment & Plan PT with bipolar disorder, on dialysis. No changes from yesterday; Pt is stable Continue with primary team tx plan
[2020-02-24 06:15] VITALS: BP 117/59; PULSE 60; RESP 20; TEMP 36.3
--- NOTE | 2020-02-24 07:52 | HO.PSYCHPN ---
Subjective Subjective Date of Service: 02/24/20 Reason For Visit: Bi Polar Subjective Notes: Conditional Voluntary Interim History: Pt remains fixated on his meds and lack of food options. Is disorganized . Keeps to self. Not ambulating much. Had HD today. Labs noted. Asked Nephrology to review. Pt is med compliant but c/o meds not being right. Agreed to dietary consult. Iu pdated who is concerned about his significant decline over past month. Medication Compliance: Yes Side effects from medications: No Attending Groups: No Review of Systems Constitutional: Reports weakness Reports tremor(s) and Reports weakness Diagnostics Vital Signs (24Hr): Vital Signs - 24 hr 02/23/20 09:45 02/23/20 09:47 02/24/20 06:15 Temperature 97.3 F Pulse Rate 57 57 60 Respiratory Rate 20 Blood Pressure 136/81 136/81 117/59 L Body Mass Index 28.3 Labs Results: 02/11/20 15:25 02/24/20 10:45 Medications Medications Current Medications Generic Name Dose Route Start Last Admin Trade Name Fadyq PRN Reason Stop Dose Admin Acetaminophen 650 mg 02/11/20 18:28 Acetaminophen 325 Mg Tablet PO Q6H PRN Headache/Pain Mild Scale (1-3) Amlodipine Besylate 5 mg 02/11/20 09:00 02/23/20 09:47 Amlodipine Besylate 5 Mg Tablet PO 5 mg DAILY DEVON Administration Protocol Benztropine Mesylate 2 mg 02/13/20 09:00 02/23/20 20:08 Benztropine Mesylate 1 Mg Tablet PO 1 mg BID DEVON Administration Divalproex Sodium 1,000 mg 02/13/20 21:00 02/23/20 20:02 Divalproex Sodium Er 500 Mg Tab.Er.24h PO 1,000 mg BEDTIME DEVON Administration Hydroxyzine HCl 25 mg 02/11/20 18:28 Hydroxyzine Hcl 25 Mg Tablet PO BEDTIME PRN Anxiety Metoprolol Succinate 25 mg 02/13/20 09:00 02/23/20 20:08 Metoprolol Succinate Er 25 Mg Tab.Er.24h PO 25 mg BID DEVON Administration Protocol Patient Own 3 each 02/20/20 21:00 02/23/20 20:09 Medication ( PO 3 each Thiothixene 5 Mg) BEDTIME DEVON Administration Olanzapine 10 mg 02/20/20 21:00 02/23/20 20:09 Olanzapine Odt 10 Mg Tab.Rapdis TRANSLINGU 10 mg BEDTIME DEVON Administration Sevelamer HCl 800 mg 02/11/20 09:00 02/23/20 20:07 Sevelamer Hcl 800 Mg Tablet PO 800 mg TID DEVON Administration Trazodone HCl 25 mg 02/11/20 18:28 Trazodone Hcl 25 Mg Halftab PO BEDTIME PRN Insomnia Vitamin B Complex/Folic Acid 1 cap 02/11/20 09:00 02/23/20 09:47 B Complex W-C No.20/Folic Acid Capsule PO 1 cap DAILY DEVON Administration Allergies Allergies Allergy/AdvReac Type Severity Reaction Status Date / Time No Known Allergies Allergy Mild NOT Unverified 12/19/19 17:37 APPLICABLE Assessment & Plan Greater than 50% of the session was spent on counseling and/or coordination of care
[2020-02-24 11:33] LABS: Alanine Aminotransferase 14 U/L (0-40); Albumin Level 3.3 g/dL (3.5-5.0); Alkaline Phosphatase 42 U/L (39-117); Anion Gap 13 (12-20); Aspartate Amino Transferase 10 U/L (5-37); Bilirubin Direct 0.2 mg/dL (0.0-0.5); Bilirubin Total 0.3 mg/dL (0.0-1.0); Carbon Dioxide 20 mmol/L (22-29); Chloride 98 mmol/L (96-108); Potassium 2.7 mmol/l (3.3-5.1); Sodium 128 mmol/L (135-145)
--- NOTE | 2020-02-24 11:38 | PM.PNNEP ---
Subjective Subjective Interval history: seen and examined on dialysis no complaints Physical Exam Vital Signs: Vital Signs: Last Vital Signs Temp 97.3 F 02/24/20 06:15 Pulse 60 02/24/20 06:15 Resp 20 02/24/20 06:15 BP 117/59 L 02/24/20 06:15 Pulse Ox 99 02/22/20 09:45 Body Mass Index 28.3 Const: General: comfortable Neck: Neck: Yes supple Resp: Auscultation: clear to auscultation bilaterally Cardio: Heart sounds: S1 normal heart sound present and S2 normal heart sound present GI: Palpation (GI): Soft to palpation and nontender Extrem: General: No edema Assessment & Plan Assessment and plan (1) ESRD (end stage renal disease): Status: Acute (2) Anemia: Status: Acute Assessment and Plan: HD today optimize volume status renal diet ERIKA per protocol restrict free water intake Time Spent With Patient Time: Total time spent is greater than 50% in coordination of care (as documented) at patient's floor/unit and/or counseling patient: Procedures Abscess I/D Date of Service: 02/24/20
[2020-02-24 11:41] LABS: Valproate 37.2 mcg/mL (50.0-100.0)
[2020-02-24 12:33] LABS: Blood Urea Nitrogen 20 mg/dL (9-16); Creatinine Clr Calc Pharmacy 20.5; Estimated Glomerular Filt Rate 14
[2020-02-24] MEDS: Benztropine Mesylate 1 MG TABLET 2 MG PO ×2 (14:18→21:31)
[2020-02-24 14:19] VITALS: BP 132/82; PULSE 100
[2020-02-24] MEDS: amLODIPine Besylate 5 MG TABLET PO (14:19)
[2020-02-24 14:21] VITALS: BP 132/82; PULSE 100
[2020-02-24] MEDS: Metoprolol Succinate ER 25 MG TAB.ER.24H PO ×2 (14:21→21:32)
[2020-02-24 19:30] VITALS: BP 152/71; PULSE 67; TEMP 36.2
[2020-02-24 21:32] VITALS: BP 152/71; PULSE 67
[2020-02-24] MEDS: OLANZapine ODT 10 MG TAB.RAPDIS TRANSLINGU (21:33)
[2020-02-24] MEDS: Divalproex Sodium ER 500 MG TAB.ER.24H 1000 MG PO (21:33)
--- NOTE | 2020-02-25 05:10 | HO.PSYCHPN ---
Subjective Subjective Reason For Visit: Bi Polar Interim History: Today appears more alert, less disorganized. We discussed that ne needs to be ambulating, eating well and be med compliant to expedite DC. Pt agreed. Ct HD. Labs noted Review of Systems Review of Systems Yes all other systems are reviewed and are negative Constitutional: Reports weakness Reports tremor(s) and Reports weakness Mental Status Exam Mental Status Exam Patient Appearance: Unkempt Patient Orientation: Person, Place and Situation Level of Consciousness: Awake and Drowsy Patient Behavior: Appropriate and Confused Mood Description: Calm and Withdrawn Affect Description: Calm, Withdrawn and Blunted Ability to Follow Directions: Fair Speech Pattern: Clear and Appropriate Diagnostics Vital Signs (24Hr): Vital Signs - 24 hr 02/24/20 06:15 02/24/20 14:19 02/24/20 14:21 Temperature 97.3 F Pulse Rate 60 100 100 Respiratory Rate 20 Blood Pressure 117/59 L 132/82 132/82 02/24/20 19:30 02/24/20 21:32 Temperature 97.1 F Pulse Rate 67 67 Respiratory Rate Blood Pressure 152/71 H 152/71 H Body Mass Index 28.3 Labs Results: 02/11/20 15:25 02/24/20 10:45 Labs: Laboratory Results - last 48 hr 02/24/20 10:45 Sodium 128 L Potassium 2.7 L D Chloride 98 Carbon Dioxide 20 L Anion Gap 13 BUN 20 H Creatinine 4.16 H* Estim Creat Clear Calc 20.5 Estimated GFR 14 Total Bilirubin 0.3 Direct Bilirubin 0.2 AST 10 D ALT 14 Alkaline Phosphatase 42 D Total Protein 5.0 L D Albumin 3.3 L D Valproic Acid 37.2 L Medications Medications Current Medications Generic Name Dose Route Start Last Admin Trade Name Freq PRN Reason Stop Dose Admin Acetaminophen 650 mg 02/11/20 18:28 Acetaminophen 325 Mg Tablet PO Q6H PRN Headache/Pain Mild Scale (1-3) Amlodipine Besylate 5 mg 02/11/20 09:00 02/24/20 14:19 Amlodipine Besylate 5 Mg Tablet PO 5 mg DAILY DEVON Administration Protocol Benztropine Mesylate 2 mg 02/13/20 09:00 02/24/20 21:31 Benztropine Mesylate 1 Mg Tablet PO 2 mg BID DEVON Administration Divalproex Sodium 1,000 mg 02/13/20 21:00 02/24/20 21:33 Divalproex Sodium Er 500 Mg Tab.Er.24h PO 1,000 mg BEDTIME DEVON Administration Hydroxyzine HCl 25 mg 02/11/20 18:28 Hydroxyzine Hcl 25 Mg Tablet PO BEDTIME PRN Anxiety Metoprolol Succinate 25 mg 02/13/20 09:00 02/24/20 21:32 Metoprolol Succinate Er 25 Mg Tab.Er.24h PO 25 mg BID DEVON Administration Protocol Patient Own 3 each 02/20/20 21:00 02/24/20 21:30 Medication ( PO 3 each Thiothixene 5 Mg) BEDTIME DEVON Administration Olanzapine 10 mg 02/20/20 21:00 02/24/20 21:33 Olanzapine Odt 10 Mg Tab.Rapdis TRANSLINGU 10 mg BEDTIME DEVON Administration Sevelamer HCl 800 mg 02/11/20 09:00 02/24/20 21:32 Sevelamer Hcl 800 Mg Tablet PO 800 mg TID DEVON Administration Trazodone HCl 25 mg 02/11/20 18:28 Trazodone Hcl 25 Mg Halftab PO BEDTIME PRN Insomnia Vitamin B Complex/Folic Acid 1 cap 02/11/20 09:00 02/24/20 14:20 B Complex W-C No.20/Folic Acid Capsule PO 1 cap DAILY DEVON Administration Allergies Allergies Allergy/AdvReac Type Severity Reaction Status Date / Time No Known Allergies Allergy Mild NOT Unverified 12/19/19 17:37 APPLICABLE Assessment & Plan Assessment & Plan (1) ESRD (end stage renal disease): Status: Acute Code(s): N18.6 - End stage renal disease (2) Anemia: Status: Acute Code(s): D64.9 - Anemia, unspecified Assessment and Plan: HD today optimize volume status renal diet ERIKA per protocol restrict free water intake Ct psych meds + OLZ and Lorazepam Greater than 50% of the session was spent on counseling and/or coordination of care
[2020-02-25 06:30] VITALS: BP 104/60; PULSE 66; RESP 18; TEMP 36.3
[2020-02-25 09:14] VITALS: BP 104/60; PULSE 66
[2020-02-25] MEDS: Metoprolol Succinate ER 25 MG TAB.ER.24H PO ×2 (09:14→21:59)
[2020-02-25 09:15] VITALS: BP 104/60; PULSE 66
[2020-02-25] MEDS: Benztropine Mesylate 1 MG TABLET 2 MG PO ×2 (09:15→21:54)
[2020-02-25] MEDS: amLODIPine Besylate 5 MG TABLET PO (09:15)
[2020-02-25] MEDS: LORazepam 1 MG TABLET PO ×2 (09:17→21:54)
[2020-02-25 21:30] VITALS: BP 140/83; PULSE 79; TEMP 36.4
[2020-02-25] MEDS: Divalproex Sodium ER 500 MG TAB.ER.24H 1000 MG PO (21:53)
[2020-02-25] MEDS: OLANZapine ODT 10 MG TAB.RAPDIS TRANSLINGU (21:54)
[2020-02-25 21:59] VITALS: BP 140/83; PULSE 79
[2020-02-26] MEDS: traZODone HCL 25 MG HALFTAB PO (02:19)
[2020-02-26] MEDS: hydrOXYzine HCL 25 MG TABLET PO (02:19)
--- NOTE | 2020-02-26 05:37 | HO.PSYCHPN ---
Subjective Subjective Date of Service: 02/27/20 Reason For Visit: Bi Polar Interim History: Ct w HD. Showing steady improvement in med compliance, diet.. Less paranoia. Alert/logical. We discussed improving target Sx to expedite DC by next week. Review of Systems Constitutional: Reports weakness Reports tremor(s) and Reports weakness Mental Status Exam Mental Status Exam Patient Appearance: Unkempt Patient Orientation: Person, Place and Situation Level of Consciousness: Awake and Drowsy Patient Behavior: Appropriate and Confused Mood Description: Calm and Withdrawn Affect Description: Calm, Withdrawn and Blunted Ability to Follow Directions: Fair Speech Pattern: Clear and Appropriate Diagnostics Vital Signs (24Hr): Vital Signs - 24 hr 02/25/20 06:30 02/25/20 09:14 02/25/20 09:15 Temperature 97.3 F Pulse Rate 66 66 66 Respiratory Rate 18 Blood Pressure 104/60 104/60 104/60 02/25/20 21:30 02/25/20 21:59 Temperature 97.6 F Pulse Rate 79 79 Respiratory Rate Blood Pressure 140/83 H 140/83 H Body Mass Index 28.3 Labs Results: 02/11/20 15:25 02/24/20 10:45 Labs: Laboratory Results - last 48 hr 02/24/20 10:45 Sodium 128 L Potassium 2.7 L D Chloride 98 Carbon Dioxide 20 L Anion Gap 13 BUN 20 H Creatinine 4.16 H* Estim Creat Clear Calc 20.5 Estimated GFR 14 Total Bilirubin 0.3 Direct Bilirubin 0.2 AST 10 D ALT 14 Alkaline Phosphatase 42 D Total Protein 5.0 L D Albumin 3.3 L D Valproic Acid 37.2 L Medications Medications Current Medications Generic Name Dose Route Start Last Admin Trade Name Freq PRN Reason Stop Dose Admin Acetaminophen 650 mg 02/11/20 18:28 Acetaminophen 325 Mg Tablet PO Q6H PRN Headache/Pain Mild Scale (1-3) Amlodipine Besylate 5 mg 02/11/20 09:00 02/25/20 09:15 Amlodipine Besylate 5 Mg Tablet PO 5 mg DAILY DEVON Administration Protocol Benztropine Mesylate 2 mg 02/13/20 09:00 02/25/20 21:54 Benztropine Mesylate 1 Mg Tablet PO 2 mg BID DEVON Administration Divalproex Sodium 1,000 mg 02/13/20 21:00 02/25/20 21:53 Divalproex Sodium Er 500 Mg Tab.Er.24h PO 1,000 mg BEDTIME DEVON Administration Hydroxyzine HCl 25 mg 02/11/20 18:28 02/26/20 02:19 Hydroxyzine Hcl 25 Mg Tablet PO 25 mg BEDTIME PRN Administration Anxiety Lorazepam 1 mg 02/25/20 09:00 02/25/20 21:54 Lorazepam 1 Mg Tablet PO 1 mg BID DEVON Administration Metoprolol Succinate 25 mg 02/13/20 09:00 02/25/20 21:59 Metoprolol Succinate Er 25 Mg Tab.Er.24h PO 25 mg BID DEVON Administration Protocol Patient Own 3 each 02/20/20 21:00 02/25/20 21:54 Medication ( PO 3 each Thiothixene 5 Mg) BEDTIME DEVON Administration Olanzapine 10 mg 02/20/20 21:00 02/25/20 21:54 Olanzapine Odt 10 Mg Tab.Rapdis TRANSLINGU 10 mg BEDTIME DEVON Administration Sevelamer HCl 800 mg 02/11/20 09:00 02/25/20 21:53 Sevelamer Hcl 800 Mg Tablet PO 800 mg TID DEVON Administration Trazodone HCl 25 mg 02/11/20 18:28 02/26/20 02:19 Trazodone Hcl 25 Mg Halftab PO 25 mg BEDTIME PRN Administration Insomnia Vitamin B Complex/Folic Acid 1 cap 02/11/20 09:00 02/25/20 09:17 B Complex W-C No.20/Folic Acid Capsule PO 1 cap DAILY DEVON Administration Allergies Allergies Allergy/AdvReac Type Severity Reaction Status Date / Time No Known Allergies Allergy Mild NOT Unverified 12/19/19 17:37 APPLICABLE Assessment & Plan Assessment & Plan (1) ESRD (end stage renal disease): Status: Acute Code(s): N18.6 - End stage renal disease (2) Anemia: Status: Acute Code(s): D64.9 - Anemia, unspecified Assessment and Plan: HD today optimize volume status renal diet ERIKA per protocol restrict free water intake Ct psych meds + OLZ and Lorazepam Greater than 50% of the session was spent on counseling and/or coordination of care
[2020-02-26 06:55] VITALS: BP 118/80; PULSE 56; RESP 18
--- NOTE | 2020-02-26 13:14 | PM.PNNEP ---
Subjective Subjective Date of Service: 02/26/20 Interval history: seen and examined on dialysis no complaints Physical Exam Vital Signs: Vital Signs: Last Vital Signs Temp 97.6 F 02/25/20 21:30 Pulse 56 02/26/20 06:55 Resp 18 02/26/20 06:55 BP 118/80 02/26/20 06:55 Pulse Ox 99 02/22/20 09:45 Body Mass Index 28.3 Const: General: no acute distress Neck: Neck: Yes supple Resp: Auscultation: clear to auscultation bilaterally Cardio: Heart sounds: S1 normal heart sound present and S2 normal heart sound present GI: Palpation (GI): Soft to palpation and nontender Extrem: General: Yes no pedal edema Assessment & Plan Assessment and plan (1) ESRD (end stage renal disease): Status: Acute (2) Anemia: Status: Acute Assessment and Plan: HD today optimize volume status renal diet ERIKA per protocol restrict free water intake Ct psych meds + OLZ and Lorazepam Time Spent With Patient Time: Total time spent is greater than 50% in coordination of care (as documented) at patient's floor/unit and/or counseling patient:
[2020-02-26] MEDS: Benztropine Mesylate 1 MG TABLET 2 MG PO ×2 (14:17→20:03)
[2020-02-26 14:18] VITALS: BP 138/78; PULSE 80
[2020-02-26] MEDS: amLODIPine Besylate 5 MG TABLET PO (14:18)
[2020-02-26] MEDS: LORazepam 1 MG TABLET PO (14:18)
[2020-02-26 14:19] VITALS: BP 138/78; PULSE 80
[2020-02-26] MEDS: Metoprolol Succinate ER 25 MG TAB.ER.24H PO ×2 (14:19→20:03)
[2020-02-26 18:26] VITALS: BP 132/76; PULSE 72; TEMP 36.6
[2020-02-26] MEDS: OLANZapine ODT 10 MG TAB.RAPDIS TRANSLINGU (20:02)
[2020-02-26 20:03] VITALS: BP 132/72; PULSE 72
[2020-02-26] MEDS: Divalproex Sodium ER 500 MG TAB.ER.24H 1000 MG PO (20:03)
[2020-02-27 06:27] VITALS: BP 126/74; PULSE 55; RESP 16; TEMP 36.6; O2SAT 98
[2020-02-27 07:00] VITALS: BMI 28.8
[2020-02-27 08:48] VITALS: BP 126/74; PULSE 55
[2020-02-27] MEDS: LORazepam 1 MG TABLET PO ×2 (08:48→21:38)
[2020-02-27] MEDS: Metoprolol Succinate ER 25 MG TAB.ER.24H PO ×2 (08:48→21:39)
[2020-02-27 08:49] VITALS: BP 126/74; PULSE 55
[2020-02-27] MEDS: Benztropine Mesylate 1 MG TABLET 2 MG PO ×2 (08:49→21:38)
[2020-02-27] MEDS: amLODIPine Besylate 5 MG TABLET PO (08:49)
--- NOTE | 2020-02-27 14:40 | HO.PSYCHPN ---
Subjective Subjective Date of Service: 02/27/20 Reason For Visit: Bi Polar Subjective Notes: Conditional Voluntary Interim History: Marco has been lying in bed and he has no immediate concerns. He reports that he is feeling safe and supported. Medication Compliance: Yes Side effects from medications: No Attending Groups: No Review of Systems Acute medical concerns: No Medical Review of Systems: unchanged Review of Systems Constitutional: Reports weakness Reports tremor(s) and Reports weakness Mental Status Exam Mental Status Exam Patient Appearance: Unkempt Patient Orientation: Person, Place and Situation Level of Consciousness: Awake and Drowsy Patient Behavior: Appropriate Mood Description: Calm and Withdrawn Affect Description: Calm, Withdrawn and Blunted Ability to Follow Directions: Fair Speech Pattern: Clear and Appropriate Hallucinations: None Delusions: Not Present Thought Process: Intact and Slowed Thinking Thought Content: positive for Circumstantial, negative for Suicidal Ideation and negative for Homicidal Ideation Judgement: Fair Diagnostics Vital Signs (24Hr): Vital Signs - 24 hr 02/26/20 18:26 02/26/20 20:03 02/27/20 06:27 Temperature 98 F 98 F Pulse Rate 72 72 55 Respiratory Rate 16 Blood Pressure 132/76 132/72 126/74 Pulse Oximetry 98 02/27/20 08:48 02/27/20 08:49 Temperature Pulse Rate 55 55 Respiratory Rate Blood Pressure 126/74 126/74 Pulse Oximetry Body Mass Index 28.8 Labs Results: 02/11/20 15:25 02/24/20 10:45 Medications Medications Current Medications Generic Name Dose Route Start Last Admin Trade Name Dimitri PRN Reason Stop Dose Admin Acetaminophen 650 mg 02/11/20 18:28 Acetaminophen 325 Mg Tablet PO Q6H PRN Headache/Pain Mild Scale (1-3) Amlodipine Besylate 5 mg 02/11/20 09:00 02/27/20 08:49 Amlodipine Besylate 5 Mg Tablet PO 5 mg DAILY DEVON Administration Protocol Benztropine Mesylate 2 mg 02/13/20 09:00 02/27/20 08:49 Benztropine Mesylate 1 Mg Tablet PO 2 mg BID DEVON Administration Divalproex Sodium 1,000 mg 02/13/20 21:00 02/26/20 20:03 Divalproex Sodium Er 500 Mg Tab.Er.24h PO 1,000 mg BEDTIME DEVON Administration Hydroxyzine HCl 25 mg 02/11/20 18:28 02/26/20 02:19 Hydroxyzine Hcl 25 Mg Tablet PO 25 mg BEDTIME PRN Administration Anxiety Lorazepam 1 mg 02/25/20 09:00 02/27/20 08:48 Lorazepam 1 Mg Tablet PO 1 mg BID DEVON Administration Metoprolol Succinate 25 mg 02/13/20 09:00 02/27/20 08:48 Metoprolol Succinate Er 25 Mg Tab.Er.24h PO 25 mg BID DEVON Administration Protocol Patient Own 3 each 02/20/20 21:00 02/26/20 20:04 Medication ( PO 3 each Thiothixene 5 Mg) BEDTIME DEVON Administration Olanzapine 10 mg 02/20/20 21:00 02/26/20 20:02 Olanzapine Odt 10 Mg Tab.Rapdis TRANSLINGU 10 mg BEDTIME DEVON Administration Sevelamer HCl 800 mg 02/11/20 09:00 02/27/20 14:02 Sevelamer Hcl 800 Mg Tablet PO 800 mg TID DEVON Administration Trazodone HCl 25 mg 02/11/20 18:28 02/26/20 02:19 Trazodone Hcl 25 Mg Halftab PO 25 mg BEDTIME PRN Administration Insomnia Vitamin B Complex/Folic Acid 1 cap 02/11/20 09:00 02/27/20 08:48 B Complex W-C No.20/Folic Acid Capsule PO 1 cap DAILY DEVON Administration Allergies Allergies Allergy/AdvReac Type Severity Reaction Status Date / Time No Known Allergies Allergy Mild NOT Unverified 12/19/19 17:37 APPLICABLE Assessment & Plan Assessment & Plan (1) Bipolar disorder, unspecified: Status: Acute Code(s): F31.9 - Bipolar disorder, unspecified Assessment and Plan: CT current treatment plan Greater than 50% of the session was spent on counseling and/or coordination of care Patient educated on: diagnosis and medication risk/benefits Informed Consent: further education needed Reason for contiued inpatient stay Substantial Risk for: inability to function
[2020-02-27] MEDS: OLANZapine ODT 10 MG TAB.RAPDIS TRANSLINGU (21:38)
[2020-02-27] MEDS: Divalproex Sodium ER 500 MG TAB.ER.24H 1000 MG PO (21:38)
[2020-02-27 21:39] VITALS: BP 122/81; PULSE 67
[2020-02-27 21:43] VITALS: TEMP 35.9
[2020-02-28 09:18] VITALS: BP 135/100; PULSE 106; RESP 18; TEMP 36.2; O2SAT 99
--- NOTE | 2020-02-28 13:07 | PM.PNNEP ---
Subjective Subjective Date of Service: 02/28/20 Interval history: seen and examined on dialysis no complaints Physical Exam Vital Signs: Vital Signs: Last Vital Signs Temp 97.1 F 02/28/20 09:18 Pulse 106 H 02/28/20 09:18 Resp 18 02/28/20 09:18 BP 135/100 H 02/28/20 09:18 Pulse Ox 99 02/28/20 09:18 Body Mass Index 28.8 Const: General: comfortable Neck: Neck: Yes supple Resp: Auscultation: clear to auscultation bilaterally Cardio: Heart sounds: S1 normal heart sound present and S2 normal heart sound present GI: Palpation (GI): Soft to palpation and nontender Extrem: General: Yes no pedal edema Assessment & Plan Assessment and plan (1) ESRD (end stage renal disease): Status: Acute (2) Anemia: Status: Acute Assessment and Plan: HD today optimize volume status renal diet ERIKA per protocol restrict free water intake follow electrolytes and CBC Time Spent With Patient Time: Total time spent is greater than 50% in coordination of care (as documented) at patient's floor/unit and/or counseling patient:
[2020-02-28 14:09] VITALS: BP 113/68; PULSE 71; RESP 16; O2SAT 100
[2020-02-28 14:21] VITALS: BP 113/68; PULSE 71
[2020-02-28] MEDS: amLODIPine Besylate 5 MG TABLET PO (14:21)
[2020-02-28] MEDS: Benztropine Mesylate 1 MG TABLET 2 MG PO ×2 (14:21→20:04)
[2020-02-28] MEDS: Metoprolol Succinate ER 25 MG TAB.ER.24H PO ×2 (14:21→20:03)
[2020-02-28] MEDS: LORazepam 1 MG TABLET PO (14:23)
[2020-02-28 18:00] VITALS: BP 112/64; PULSE 70; TEMP 35.9
--- NOTE | 2020-02-28 19:01 | HO.PSYCHPN ---
Subjective Subjective Date of Service: 02/28/20 Reason For Visit: Bi Polar Subjective Notes: Conditional Voluntary Interim History: Marco spent much of the day at dialysis. He is feeling much the same and had no immediate concerns Medication Compliance: Yes Side effects from medications: No Attending Groups: No Review of Systems Acute medical concerns: No Medical Review of Systems: unchanged Review of Systems Constitutional: Reports weakness Reports tremor(s) and Reports weakness Mental Status Exam Mental Status Exam Patient Appearance: Unkempt Patient Orientation: Person, Place and Situation Level of Consciousness: Awake and Drowsy Patient Behavior: Appropriate Mood Description: Calm and Withdrawn Affect Description: Calm, Withdrawn and Blunted Ability to Follow Directions: Fair Speech Pattern: Clear and Appropriate Hallucinations: None Delusions: Not Present Thought Process: Intact and Slowed Thinking Thought Content: positive for Circumstantial, negative for Suicidal Ideation and negative for Homicidal Ideation Judgement: Fair Diagnostics Vital Signs (24Hr): Vital Signs - 24 hr 02/27/20 21:39 02/27/20 21:43 02/28/20 09:18 Temperature 96.7 F L 97.1 F Pulse Rate 67 106 H Respiratory Rate 18 Blood Pressure 122/81 135/100 H Pulse Oximetry 99 02/28/20 14:09 02/28/20 14:21 Temperature Pulse Rate 71 71 Respiratory Rate 16 Blood Pressure 113/68 113/68 Pulse Oximetry 100 Body Mass Index 28.8 Labs Results: 02/11/20 15:25 02/24/20 10:45 Medications Medications Current Medications Generic Name Dose Route Start Last Admin Trade Name Fadyq PRN Reason Stop Dose Admin Acetaminophen 650 mg 02/11/20 18:28 Acetaminophen 325 Mg Tablet PO Q6H PRN Headache/Pain Mild Scale (1-3) Amlodipine Besylate 5 mg 02/11/20 09:00 02/28/20 14:21 Amlodipine Besylate 5 Mg Tablet PO 5 mg DAILY DEVON Administration Protocol Benztropine Mesylate 2 mg 02/13/20 09:00 02/28/20 14:21 Benztropine Mesylate 1 Mg Tablet PO 2 mg BID DEVON Administration Divalproex Sodium 1,000 mg 02/13/20 21:00 02/27/20 21:38 Divalproex Sodium Er 500 Mg Tab.Er.24h PO 1,000 mg BEDTIME DEVON Administration Hydroxyzine HCl 25 mg 02/11/20 18:28 02/26/20 02:19 Hydroxyzine Hcl 25 Mg Tablet PO 25 mg BEDTIME PRN Administration Anxiety Lorazepam 1 mg 02/25/20 09:00 02/28/20 14:23 Lorazepam 1 Mg Tablet PO 1 mg BID DEVON Administration Metoprolol Succinate 25 mg 02/13/20 09:00 02/28/20 14:21 Metoprolol Succinate Er 25 Mg Tab.Er.24h PO 25 mg BID DEVON Administration Protocol Patient Own 3 each 02/20/20 21:00 02/27/20 21:39 Medication ( PO 3 each Thiothixene 5 Mg) BEDTIME DEVON Administration Olanzapine 10 mg 02/20/20 21:00 02/27/20 21:38 Olanzapine Odt 10 Mg Tab.Rapdis TRANSLINGU 10 mg BEDTIME DEVON Administration Sevelamer HCl 800 mg 02/11/20 09:00 02/28/20 14:23 Sevelamer Hcl 800 Mg Tablet PO 800 mg TID DEVON Administration Trazodone HCl 25 mg 02/11/20 18:28 02/26/20 02:19 Trazodone Hcl 25 Mg Halftab PO 25 mg BEDTIME PRN Administration Insomnia Vitamin B Complex/Folic Acid 1 cap 02/11/20 09:00 02/28/20 14:21 B Complex W-C No.20/Folic Acid Capsule PO 1 cap DAILY DVEON Administration Allergies Allergies Allergy/AdvReac Type Severity Reaction Status Date / Time No Known Allergies Allergy Mild NOT Unverified 12/19/19 17:37 APPLICABLE Assessment & Plan Assessment & Plan (1) Bipolar disorder, unspecified: Status: Acute Code(s): F31.9 - Bipolar disorder, unspecified (2) ESRD (end stage renal disease): Status: Acute Code(s): N18.6 - End stage renal disease Assessment and Plan: Continue current treatment plan Greater than 50% of the session was spent on counseling and/or coordination of care Patient educated on: diagnosis and medication risk/benefits Informed Consent: further education needed Reason for contiued inpatient stay Substantial Risk for: inability to function and rapid decompensation
[2020-02-28 20:03] VITALS: BP 112/70; PULSE 70
[2020-02-28] MEDS: OLANZapine ODT 10 MG TAB.RAPDIS TRANSLINGU (20:03)
[2020-02-28] MEDS: Divalproex Sodium ER 500 MG TAB.ER.24H 1000 MG PO (20:05)
[2020-02-29 06:40] VITALS: BP 102/58; PULSE 56; RESP 18; TEMP 36.4
[2020-02-29 09:15] VITALS: BP 102/58; PULSE 56
[2020-02-29] MEDS: Metoprolol Succinate ER 25 MG TAB.ER.24H PO ×2 (09:15→22:02)
[2020-02-29] MEDS: amLODIPine Besylate 5 MG TABLET PO (09:16)
[2020-02-29] MEDS: LORazepam 1 MG TABLET PO ×2 (09:16→22:02)
[2020-02-29] MEDS: Benztropine Mesylate 1 MG TABLET 2 MG PO ×2 (09:16→22:02)
--- NOTE | 2020-02-29 13:44 | HO.PSYCHPN ---
Subjective Subjective Date of Service: 02/29/20 Reason For Visit: Bi Polar Subjective Notes: Conditional Voluntary Interim History: Marco was lying resting in bed. He continues to show a slow improvement Medication Compliance: Yes Side effects from medications: No Attending Groups: No Review of Systems Acute medical concerns: No Medical Review of Systems: unchanged Review of Systems Constitutional: Reports weakness Reports tremor(s) and Reports weakness Mental Status Exam Mental Status Exam Patient Appearance: Unkempt Patient Orientation: Person, Place and Situation Level of Consciousness: Awake and Drowsy Patient Behavior: Appropriate Mood Description: Calm and Withdrawn Affect Description: Calm, Withdrawn and Blunted Ability to Follow Directions: Fair Speech Pattern: Clear and Appropriate Hallucinations: None Delusions: Not Present Thought Process: Intact and Slowed Thinking Thought Content: positive for Circumstantial, negative for Suicidal Ideation and negative for Homicidal Ideation Judgement: Fair Diagnostics Vital Signs (24Hr): Vital Signs - 24 hr 02/28/20 14:09 02/28/20 14:21 02/28/20 18:00 Temperature 96.7 F L Pulse Rate 71 71 70 Respiratory Rate 16 Blood Pressure 113/68 113/68 112/64 Pulse Oximetry 100 02/28/20 20:03 02/29/20 06:40 02/29/20 09:15 Temperature 97.5 F Pulse Rate 70 56 56 Respiratory Rate 18 Blood Pressure 112/70 102/58 L 102/58 L Pulse Oximetry Body Mass Index 28.8 Labs Results: 02/11/20 15:25 02/24/20 10:45 Medications Medications Current Medications Generic Name Dose Route Start Last Admin Trade Name Freq PRN Reason Stop Dose Admin Acetaminophen 650 mg 02/11/20 18:28 Acetaminophen 325 Mg Tablet PO Q6H PRN Headache/Pain Mild Scale (1-3) Amlodipine Besylate 5 mg 02/11/20 09:00 02/29/20 09:16 Amlodipine Besylate 5 Mg Tablet PO 5 mg DAILY DEVON Administration Protocol Benztropine Mesylate 2 mg 02/13/20 09:00 02/29/20 09:16 Benztropine Mesylate 1 Mg Tablet PO 2 mg BID DEVON Administration Divalproex Sodium 1,000 mg 02/13/20 21:00 02/28/20 20:05 Divalproex Sodium Er 500 Mg Tab.Er.24h PO 1,000 mg BEDTIME DEVON Administration Hydroxyzine HCl 25 mg 02/11/20 18:28 02/26/20 02:19 Hydroxyzine Hcl 25 Mg Tablet PO 25 mg BEDTIME PRN Administration Anxiety Lorazepam 1 mg 02/25/20 09:00 02/29/20 09:16 Lorazepam 1 Mg Tablet PO 1 mg BID DEVON Administration Metoprolol Succinate 25 mg 02/13/20 09:00 02/29/20 09:15 Metoprolol Succinate Er 25 Mg Tab.Er.24h PO 25 mg BID DEVON Administration Protocol Patient Own 3 each 02/20/20 21:00 02/28/20 20:06 Medication ( PO 3 each Thiothixene 5 Mg) BEDTIME DEVON Administration Olanzapine 10 mg 02/20/20 21:00 02/28/20 20:03 Olanzapine Odt 10 Mg Tab.Rapdis TRANSLINGU 10 mg BEDTIME DEVON Administration Sevelamer HCl 800 mg 02/11/20 09:00 02/29/20 09:16 Sevelamer Hcl 800 Mg Tablet PO 800 mg TID DEVON Administration Trazodone HCl 25 mg 02/11/20 18:28 02/26/20 02:19 Trazodone Hcl 25 Mg Halftab PO 25 mg BEDTIME PRN Administration Insomnia Vitamin B Complex/Folic Acid 1 cap 02/11/20 09:00 02/29/20 09:16 B Complex W-C No.20/Folic Acid Capsule PO 1 cap DAILY DEVON Administration Allergies Allergies Allergy/AdvReac Type Severity Reaction Status Date / Time No Known Allergies Allergy Mild NOT Unverified 12/19/19 17:37 APPLICABLE Assessment & Plan Assessment & Plan (1) Bipolar disorder, unspecified: Status: Acute Code(s): F31.9 - Bipolar disorder, unspecified (2) ESRD (end stage renal disease): Status: Acute Code(s): N18.6 - End stage renal disease Assessment and Plan: CT current plan Greater than 50% of the session was spent on counseling and/or coordination of care Patient educated on: diagnosis and medication risk/benefits Informed Consent: does not understand Reason for contiued inpatient stay Substantial Risk for: rapid decompensation
[2020-02-29 22:02] VITALS: BP 116/89; PULSE 68
[2020-02-29] MEDS: Divalproex Sodium ER 500 MG TAB.ER.24H 1000 MG PO (22:02)
[2020-02-29] MEDS: OLANZapine ODT 10 MG TAB.RAPDIS TRANSLINGU (22:02)
[2020-02-29 22:05] VITALS: TEMP 35.9
[2020-03-01 06:45] VITALS: BP 110/78; PULSE 60; RESP 18; TEMP 36.1
[2020-03-01 08:57] VITALS: BP 110/78; PULSE 60
[2020-03-01] MEDS: Metoprolol Succinate ER 25 MG TAB.ER.24H PO ×2 (08:57→22:46)
[2020-03-01] MEDS: LORazepam 1 MG TABLET PO ×3 (08:57→22:40)
[2020-03-01] MEDS: Benztropine Mesylate 1 MG TABLET 2 MG PO ×2 (08:57→22:40)
[2020-03-01] MEDS: amLODIPine Besylate 5 MG TABLET PO (08:57)
--- NOTE | 2020-03-01 15:26 | HO.PSYCHPN ---
Subjective Subjective Date of Service: 03/01/20 Reason For Visit: Bi Polar Subjective Notes: Conditional Voluntary Interim History: Marco was more active today. He was walking down the halls with assist and has been asking when he can go home. Medication Compliance: Yes Side effects from medications: No Attending Groups: No Review of Systems Acute medical concerns: No Medical Review of Systems: unchanged Review of Systems Constitutional: Reports weakness Reports tremor(s) and Reports weakness Mental Status Exam Mental Status Exam Patient Appearance: Well Grooomed Patient Orientation: Person, Place and Situation Level of Consciousness: Awake Patient Behavior: Appropriate Mood Description: Calm and Withdrawn Affect Description: Calm, Withdrawn and Blunted Ability to Follow Directions: Fair Speech Pattern: Clear and Appropriate Hallucinations: None Delusions: Not Present Thought Process: Intact and Slowed Thinking Thought Content: positive for Circumstantial, negative for Suicidal Ideation and negative for Homicidal Ideation Judgement: Fair Diagnostics Vital Signs (24Hr): Vital Signs - 24 hr 02/29/20 22:02 02/29/20 22:05 03/01/20 06:45 Temperature 96.6 F L 97 F Pulse Rate 68 60 Respiratory Rate 18 Blood Pressure 116/89 110/78 03/01/20 08:57 Temperature Pulse Rate 60 Respiratory Rate Blood Pressure 110/78 Body Mass Index 28.8 Labs Results: 02/11/20 15:25 02/24/20 10:45 Medications Medications Current Medications Generic Name Dose Route Start Last Admin Trade Name Fadyq PRN Reason Stop Dose Admin Acetaminophen 650 mg 02/11/20 18:28 Acetaminophen 325 Mg Tablet PO Q6H PRN Headache/Pain Mild Scale (1-3) Amlodipine Besylate 5 mg 02/11/20 09:00 03/01/20 08:57 Amlodipine Besylate 5 Mg Tablet PO 5 mg DAILY DEVON Administration Protocol Benztropine Mesylate 2 mg 02/13/20 09:00 03/01/20 08:57 Benztropine Mesylate 1 Mg Tablet PO 2 mg BID DEVON Administration Divalproex Sodium 1,000 mg 02/13/20 21:00 02/29/20 22:02 Divalproex Sodium Er 500 Mg Tab.Er.24h PO 1,000 mg BEDTIME DEVON Administration Hydroxyzine HCl 25 mg 02/11/20 18:28 02/26/20 02:19 Hydroxyzine Hcl 25 Mg Tablet PO 25 mg BEDTIME PRN Administration Anxiety Lorazepam 1 mg 03/01/20 09:00 03/01/20 09:56 Lorazepam 1 Mg Tablet PO 1 mg BID DEVON Administration Metoprolol Succinate 25 mg 02/13/20 09:00 03/01/20 08:57 Metoprolol Succinate Er 25 Mg Tab.Er.24h PO 25 mg BID DEVON Administration Protocol Patient Own 3 each 02/20/20 21:00 02/29/20 22:03 Medication ( PO 3 each Thiothixene 5 Mg) BEDTIME DEVON Administration Olanzapine 10 mg 02/20/20 21:00 02/29/20 22:02 Olanzapine Odt 10 Mg Tab.Rapdis TRANSLINGU 10 mg BEDTIME DEVON Administration Sevelamer HCl 800 mg 02/11/20 09:00 03/01/20 14:05 Sevelamer Hcl 800 Mg Tablet PO 800 mg TID DEVON Administration Trazodone HCl 25 mg 02/11/20 18:28 02/26/20 02:19 Trazodone Hcl 25 Mg Halftab PO 25 mg BEDTIME PRN Administration Insomnia Vitamin B Complex/Folic Acid 1 cap 02/11/20 09:00 03/01/20 08:57 B Complex W-C No.20/Folic Acid Capsule PO 1 cap DAILY DEVON Administration Allergies Allergies Allergy/AdvReac Type Severity Reaction Status Date / Time No Known Allergies Allergy Mild NOT Unverified 12/19/19 17:37 APPLICABLE Assessment & Plan Assessment & Plan (1) Bipolar disorder, unspecified: Status: Acute Code(s): F31.9 - Bipolar disorder, unspecified (2) ESRD (end stage renal disease): Status: Acute Code(s): N18.6 - End stage renal disease Assessment and Plan: Continue current treatment plan Greater than 50% of the session was spent on counseling and/or coordination of care Patient educated on: diagnosis and medication risk/benefits Informed Consent: further education needed Reason for contiued inpatient stay Substantial Risk for: rapid decompensation
[2020-03-01] MEDS: Divalproex Sodium ER 500 MG TAB.ER.24H 1000 MG PO (22:40)
[2020-03-01] MEDS: OLANZapine ODT 10 MG TAB.RAPDIS TRANSLINGU (22:40)
[2020-03-01 22:46] VITALS: BP 138/88; PULSE 60
[2020-03-01 22:48] VITALS: TEMP 36.1
--- NOTE | 2020-03-02 07:42 | HO.PSYCHPN ---
Subjective Subjective Date of Service: 03/02/20 Reason For Visit: Bi Polar Interim History: Pt. making steady progress. Ambulating well. No PI. Appetite better. Anxious [facility]. DC planned for Tues Review of Systems Constitutional: Reports weakness Reports tremor(s) and Reports weakness Mental Status Exam Mental Status Exam Patient Appearance: Well Grooomed Patient Orientation: Person, Place and Situation Level of Consciousness: Awake Patient Behavior: Appropriate Mood Description: Calm and Withdrawn Affect Description: Calm, Withdrawn and Blunted Ability to Follow Directions: Fair Speech Pattern: Clear and Appropriate Diagnostics Vital Signs (24Hr): Vital Signs - 24 hr 03/01/20 08:57 03/01/20 22:46 03/01/20 22:48 Temperature 96.9 F Pulse Rate 60 60 Blood Pressure 110/78 138/88 Body Mass Index 28.8 Labs Results: 02/11/20 15:25 02/24/20 10:45 Medications Medications Current Medications Generic Name Dose Route Start Last Admin Trade Name Freq PRN Reason Stop Dose Admin Acetaminophen 650 mg 02/11/20 18:28 Acetaminophen 325 Mg Tablet PO Q6H PRN Headache/Pain Mild Scale (1-3) Amlodipine Besylate 5 mg 02/11/20 09:00 03/01/20 08:57 Amlodipine Besylate 5 Mg Tablet PO 5 mg DAILY DEVON Administration Protocol Benztropine Mesylate 2 mg 02/13/20 09:00 03/01/20 22:40 Benztropine Mesylate 1 Mg Tablet PO 2 mg BID DEVON Administration Divalproex Sodium 1,000 mg 02/13/20 21:00 03/01/20 22:40 Divalproex Sodium Er 500 Mg Tab.Er.24h PO 1,000 mg BEDTIME DEVON Administration Hydroxyzine HCl 25 mg 02/11/20 18:28 02/26/20 02:19 Hydroxyzine Hcl 25 Mg Tablet PO 25 mg BEDTIME PRN Administration Anxiety Lorazepam 1 mg 03/01/20 09:00 03/01/20 22:40 Lorazepam 1 Mg Tablet PO 1 mg BID DEVON Administration Metoprolol Succinate 25 mg 02/13/20 09:00 03/01/20 22:46 Metoprolol Succinate Er 25 Mg Tab.Er.24h PO 25 mg BID DEVON Administration Protocol Patient Own 3 each 02/20/20 21:00 03/01/20 22:41 Medication ( PO 3 each Thiothixene 5 Mg) BEDTIME DEVON Administration Olanzapine 10 mg 02/20/20 21:00 03/01/20 22:40 Olanzapine Odt 10 Mg Tab.Rapdis TRANSLINGU 10 mg BEDTIME DEVON Administration Sevelamer HCl 800 mg 02/11/20 09:00 03/01/20 22:40 Sevelamer Hcl 800 Mg Tablet PO 800 mg TID DEVON Administration Trazodone HCl 25 mg 02/11/20 18:28 02/26/20 02:19 Trazodone Hcl 25 Mg Halftab PO 25 mg BEDTIME PRN Administration Insomnia Vitamin B Complex/Folic Acid 1 cap 02/11/20 09:00 03/01/20 08:57 B Complex W-C No.20/Folic Acid Capsule PO 1 cap DAILY DEVON Administration Allergies Allergies Allergy/AdvReac Type Severity Reaction Status Date / Time No Known Allergies Allergy Mild NOT Unverified 12/19/19 17:37 APPLICABLE Assessment & Plan Assessment & Plan (1) Dialysis patient: Status: Acute Code(s): Z99.2 - Dependence on renal dialysis Assessment and Plan: HD today optimize volume status renal diet ERIKA per protocol restrict free water intake follow electrolytes and CBC D/C planning in [place]. DC Tues Greater than 50% of the session was spent on counseling and/or coordination of care
[2020-03-02 09:50] VITALS: BP 129/90; PULSE 61; TEMP 36.4; O2SAT 100
--- NOTE | 2020-03-02 11:05 | PM.PNNEP ---
Subjective Subjective Date of Service: 03/02/20 Interval history: Seen na dexamined. Currently on HD Physical Exam Vital Signs: Vital Signs: Last Vital Signs Temp 97.6 F 03/02/20 09:50 Pulse 61 03/02/20 09:50 Resp 18 03/01/20 06:45 BP 129/90 H 03/02/20 09:50 Pulse Ox 100 03/02/20 09:50 Body Mass Index 28.8 Const: Other: Last Vital Signs Temp 97.0 F 02/21/20 08:16 Pulse 63 02/21/20 08:16 Resp 14 02/21/20 08:16 BP 192/94 H 02/21/20 08:16 Pulse Ox 100 02/21/20 08:16 Body Mass Index 28.3 General: comfortable and no acute distress Neck: Neck: Yes supple Resp: Auscultation: clear to auscultation bilaterally Cardio: Other: Last Vital Signs Temp 97.0 F 02/21/20 08:16 Pulse 63 02/21/20 08:16 Resp 14 02/21/20 08:16 BP 192/94 H 02/21/20 08:16 Pulse Ox 100 02/21/20 08:16 Body Mass Index 28.3 Heart sounds: S1 normal heart sound present and S2 normal heart sound present GI: Palpation (GI): Soft to palpation and nontender Extrem: General: Yes no pedal edema and No edema Assessment & Plan Assessment and plan (1) ESRD (end stage renal disease): Status: Acute (2) Anemia: Status: Acute Assessment and Plan: HD today optimize volume status renal diet ERIKA per protocol restrict free water intake follow electrolytes and CBC D/C planning in [place] Time Spent With Patient Time: Total time spent is greater than 50% in coordination of care (as documented) at patient's floor/unit and/or counseling patient:
[2020-03-02 14:28] VITALS: BP 120/68; PULSE 60; TEMP 35.9; O2SAT 100
[2020-03-02 14:30] VITALS: BP 120/68; PULSE 60
[2020-03-02] MEDS: Benztropine Mesylate 1 MG TABLET 2 MG PO ×2 (14:30→21:14)
[2020-03-02] MEDS: Metoprolol Succinate ER 25 MG TAB.ER.24H PO ×2 (14:30→21:14)
[2020-03-02 14:32] VITALS: BP 120/68; PULSE 60
[2020-03-02] MEDS: amLODIPine Besylate 5 MG TABLET PO (14:32)
[2020-03-02 18:00] VITALS: BP 153/90; PULSE 69; TEMP 36.2
[2020-03-02] MEDS: Divalproex Sodium ER 500 MG TAB.ER.24H 1000 MG PO (21:13)
[2020-03-02 21:14] VITALS: BP 153/90; PULSE 69
[2020-03-02] MEDS: LORazepam 1 MG TABLET PO (21:14)
[2020-03-02] MEDS: OLANZapine ODT 10 MG TAB.RAPDIS TRANSLINGU (21:14)
[2020-03-02] MEDS: Acetaminophen 325 MG TABLET 650 MG PO (21:21)
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
[2020-03-03 06:00] VITALS: BP 105/63; PULSE 60; TEMP 36.6
[2020-03-03 09:20] VITALS: BP 105/63; PULSE 60
[2020-03-03] MEDS: Metoprolol Succinate ER 25 MG TAB.ER.24H PO (09:20)
[2020-03-03] MEDS: amLODIPine Besylate 5 MG TABLET PO (09:20)
[2020-03-03] MEDS: Benztropine Mesylate 1 MG TABLET 2 MG PO (09:20)
[2020-03-03] MEDS: LORazepam 1 MG TABLET PO (09:20)
[2020-03-03] MEDS: Acetaminophen 325 MG TABLET 650 MG PO (09:23)
== END 2020-03-03 13:30 | disposition home or self-care (01) | DRG 885 ==
LOC: HO.ED 02-11 17:21 → HO.PM5 02-11 17:29
PROVIDERS: Internal Medicine; Physician Assistant; Admitting Provider Psychiatry & Neurology Psychiatry; Emergency Provider Emergency Medicine; PCP Physician Assistant; Visit Provider Psychiatry & Neurology Psychiatry
DX: F25.0 Schizoaffective disorder, bipolar type (principal); N18.6 End stage renal disease; D63.1 Anemia in chronic kidney disease; Z99.2 Dependence on renal dialysis; Z20.828 Contact with and (suspected) exposure to other viral communicable diseases; Z79.899 Other long term (current) drug therapy
CPT/HCPCS: 36415; 80048; 80051; 80053; 80076; 80164; 80307; 80320; 81001; 82140; 82565; 83735; 84100; 84520; 85025; 87635; 90999; 93005; 99223; 99225; 99231; 99232; 99233; 99239; 99285; J2060

== ENCOUNTER 2022-03-10 10:02 | Inpatient (IN) | payer MEDICARE, SELFPAY ==
[2022-03-10 10:07] VITALS: BP 147/84; BP 153/98; PULSE 68; PULSE 75; RESP 18; TEMP 36.1; O2SAT 93; O2SAT 96; BMI 37.1
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
[2022-03-10 10:15] VITALS: RESP 16
--- NOTE | 2022-03-10 10:20 | ECG_ITS ---
Test Reason : medical clearance Blood Pressure : / mmHG Vent. Rate : 068 BPM Atrial Rate : 068 BPM P-R Int : 158 ms QRS Dur : 092 ms QT Int : 408 ms P-R-T Axes : 027 -26 025 degrees QTc Int : 433 ms Sinus rhythm with Premature atrial complexes Otherwise normal ECG When compared with ECG of 11-FEB-2020 13:14, Premature atrial complexes are now Present Nonspecific T wave abnormality no longer evident in Anterior leads QT has shortened Referred By: Melanie Quick Electronically Signed By:YONATAN HELLER MD
[2022-03-10 10:40] LABS: Appearance Urine Clear; Color Urine Yellow; Glucose Urine UA 250 mg/dL (Negative); Leukocyte Esterase Urine Negative (Negative); Nitrite Urine Negative (Negative); PH 8.5 (5.0-9.0); Specific Gravity - Urine <= 1.005 (1.005-1.025); UMIC TRIGGER UACC YES; Urine Blood Trace (Negative); Urine Ketones Negative (Negative); Urine Protein 100 (2+) mg/dL (Neg-Trace)
--- OUTSIDE RECORDS SUMMARY | 2022-03-10 10:41 | XMS_ITS | Continuity of Care Document ---
:1955 Author Organization [facility] Address [address] [place] [id number]- Care Team Providers Name Role Phone Mendoza Hawley MD [id number] Date(s[facility] - [facility]14[facility] [address] [place] [id number]- [facility] Attending Physician: Jose Lopez MD Admitting Physician: Jose Lopez MD Referring Physician: Bradley Pena MD Allergies, Adverse Reactions, Alerts No Known Medication Allergies Medications amlodipine 5 mg oral tablet 1 tablet = 5 mg, By Mouth, Daily, 0 Refills, Maintenance, 06/11/14 7:59:19 Start Date: 06/11/14 Status: Orderedaspirin 81 mg oral tablet 1 tablet = 81 mg, By Mouth, Daily, 0 Refills, Maintenance, 06/07/19 8:09:00 EST Start Date: 06/07/19 Status: Orderedbenztropine 2 mg oral tablet 1 tablet = 2 mg, By Mouth, 2 times a day, 0 Refills, Maintenance, 06/11/14 7:59:08 Start Date: 06/11/14 Status: OrderedCompression Stockings See Instructions, # 1 pair, Maintenance, surgical, calf length 30-40 mm Hg, 06/11/14 8:35:06, Compound Start Date: 06/11/14 Status: Ordereddivalproex sodium 500 mg oral enteric coated tablet 1 tablet = 500 mg, By Mouth, 3 times a day, 0 Refills, Maintenance, 06/11/14 7:58:25 Start Date: 06/11/14 Status: Orderedferrous fumarate 325 mg oral tablet 1 tablet = 325 mg, By Mouth, Daily, 0 Refills, Maintenance, 06/07/19 8:11:00 EST Start Date: 06/07/19 Status: OrderedFish Oil By Mouth, 0 Refills, Maintenance, 06/11/14 8:00:47 Start Date: 06/11/14 Status: Orderedred yeast rice 600 mg oral capsule 2 capsule = 1,200 mg, By Mouth, Daily, 0 Refills, Maintenance, 06/11/14 7:59:45 Start Date: 06/11/14 Status: Orderedthiothixene 5 mg oral capsule 1 capsule = 5 mg, By Mouth, 2 times a day, 0 Refills, Maintenance, 06/11/14 7:58:14 Start Date: 06/11/14 Status: Ordered Problem List Condition Effective Dates Status Health Status Informant DVT (deep venous Active thrombosis)(Confirmed) Vital Signs Most recent to oldest [Reference Range]: 1 Height 183 cm (06/07/19 8:07 AM) Weight 108.00 kg (06/07/19 8:07 AM) Pulse Rate [55-90 bpm] 68 bpm (06/07/19 8:07 AM) Body Mass Index [18.5-24.99] 32.25 *>HHI* (06/07/19 8:07 AM) Blood Pressure [90-138/55-84 mm Hg] 140/90 mm Hg *H* (06/07/19 8:07 AM) Blood pressure sites Arm, left (06/07/19 8:07 AM) Weight Obtained Via Patient/family stated (06/07/19 8:07 AM) Social History Social History Type Response Smoking Status Never (less than 100 in life time) entered on: 06/07/19 Sex
--- OUTSIDE RECORDS SUMMARY | 2022-03-10 10:41 | XMS_ITS | Continuity of Care Document ---
:1955 Author Organization [facility] Address [address] [place] [id number]- Care Team Providers Name Role Phone Brooke Morales Primary Care Physician [phone] [place] [facility] [place] 12/23/19 - 01/22/20 [facility] [address] [place] [id number]- [facility] Allergies, Adverse Reactions, Alerts No Known Medication Allergies Medications aspirin 81 mg oral tablet 1 tablet = 81 mg, By Mouth, Daily, 0 Refills, Maintenance, 06/07/19 8:09:00 EST Start Date: 06/07/19 Status: Orderedbenztropine 1 mg oral tablet 1 mg, 1, tablet, By Mouth, 4 times a day, Refills 0, Maintenance, 10/29/19 6:21:00 EDT Start Date: 10/29/19 Status: OrderedCompression Stockings See Instructions, # 1 pair, Maintenance, surgical, calf length 30-40 mm Hg, 06/11/14 8:35:06, Compound Start Date: 06/11/14 Status: Ordereddivalproex sodium 500 mg oral enteric coated tablet 1 tablet = 500 mg, By Mouth, 2 times a day, 0 Refills, Maintenance, 06/11/14 7:58:25 EDT Start Date: 06/11/14 Status: OrderedFish Oil By Mouth, 0 Refills, Maintenance, 06/11/14 8:00:47 Start Date: 06/11/14 Status: Orderedmetoprolol 25 mg oral tablet 25 mg, 1, tablet, By Mouth, 2 times a day, # 60 tablet, Refills 0, Maintenance, 10/29/19 7:18:00 EDT Start Date: 10/29/19 Status: OrderedNorvasc 5 mg oral tablet 10 mg, 2, tablet, By Mouth, Daily, # 60 tablet, Refills 0, Tot. Refills 0, Maintenance, 01/03/20 17:22:00 EDT, Route to Pharmacy Electronically, [facility], 183, cm, 01/03/20 16:41:00 EDT, Height, 113.6, kg, 01/01/20 18:45:00 EDT, Dry Weight Start Date: 01/03/20 Status: Orderedparicalcitol 1 mcg oral capsule 1 capsule = 1 mcg, By Mouth, 3 times a day, 0 Refills, Maintenance, 10/29/19 7:21:00 EDT Start Date: 10/29/19 Status: Orderedred yeast rice 600 mg oral capsule 2 capsule = 1,200 mg, By Mouth, Daily, 0 Refills, Maintenance, 06/11/14 7:59:45 Start Date: 06/11/14 Status: Orderedsodium bicarbonate 650 mg oral tablet 1 tablet = 650 mg, By Mouth, 2 times a day, 0 Refills, Maintenance, 01/01/20 10:35:00 EDT Start Date: 01/01/20 Status: Orderedthiothixene 5 mg oral capsule 1 capsule = 5 mg, By Mouth, 3 times a day, 0 Refills, Maintenance, 06/11/14 7:58:14 EDT Start Date: 06/11/14 Status: Ordered Problem List Condition Effective Dates Status Health Status Informant DVT (deep venous Active thrombosis)(Confirmed) ESRD on hemodialysis(Confirmed) Active Hypertension(Confirmed) Active Social History Social History Type Response Smoking Status Never (less than 100 in life time) entered on: 06/07/19 Sex
--- OUTSIDE RECORDS SUMMARY | 2022-03-10 10:42 | XMS_ITS | Continuity of Care Document ---
:1955 Author Organization [facility] Address [address] [facility] [address] [facility] [address] [place] [address]- Care Team Providers Name Role Phone Brooke Morales Primary Care Physician [place] [facility] [place] [place] [id number] Date(s): 12/18/19 - 01/17/20 [facility] [address] [facility] [address] [place] [address]- [facility] Attending Physician: Chris Ohara Admitting Physician: Chris Ohara Referring Physician: Chris Ohara Allergies, Adverse Reactions, Alerts No Known Medication [...]
--- OUTSIDE RECORDS SUMMARY | 2022-03-10 10:43 | XMS_ITS | Continuity of Care Document ---
:1955 Author Organization [facility] Address [address] [place] [id number]- Care Team Providers Name Role Phone Brooke Morales Primary Care Physician Encounter [facility] [place] Date(s): 12/11/19 - 01/15/20 [facility] [address] [place] [id number]- [facility] Attending Physician: Jose Lopez MD Admitting Physician: Jose Lopez MD Referring Physician: Jose Lopez MD Allergies, Adverse Reactions, Alerts No Known [...]
--- OUTSIDE RECORDS SUMMARY | 2022-03-10 10:43 | XMS_ITS | Continuity of Care Document ---
:1955 Author Organization [facility] Address [address] [place] [id number]- Care Team Providers Name Role Phone Brooke Morales Primary Care Physician [phone] Encounter [facility] Date(s): 07/30/20 - 09/10/20 [facility] [address], [place] [address] Attending Physician: Jose Lopez MD Admitting Physician: Jose Lopez MD Allergies, Adverse Reactions, Alerts No Known Medication Allergies Medications aspirin 81 mg oral tablet 1 tablet = 81 mg, By Mouth, Daily, 0 Refills, Maintenance, 06/07/19 8:09:00 EST Start Date: 06/07/19 Status: Orderedbenztropine 1 mg oral tablet 2 mg, 2, tablet, By Mouth, 2 times a day, Refills 0, Maintenance, 10/29/19 6:21:00 EDT Start Date: 10/29/19 Status: OrderedCompression Stockings See Instructions, # 1 pair, Maintenance, surgical, calf length 30-40 mm Hg, 06/11/14 8:35:06, Compound Start Date: 06/11/14 Status: OrderedDivalproex Sodium ER Tablet = 1,000 mg, By Mouth, Daily at bedtime, 0 Refills, Maintenance, 03/30/20 13:58:00 EST, Partial fill upon patient request if the prescription is for a schedule II opioid drug. Start Date: 03/30/20 Status: Ordereddocusate sodium 100 mg oral capsule 100 mg, 1, capsule, By Mouth, 2 times a day, PRN, # 10 capsule, Refills 0, Tot. Refills 0, Maintenance, for constipation, 06/11/20 15:57:00 EST, Route to Pharmacy Electronically, [id number], Partial fill upon patient request if the prescriptio... Start Date: 06/11/20 Stop Date: 06/16/20 Status: OrderedFish Oil = 1,400 mg, By Mouth, Daily, 0 Refills, Maintenance, 06/11/14 8:00:47 EDT Start Date: 06/11/14 Status: OrderedOlanzapine = 10 mg, Daily at bedtime, 0 Refills, Maintenance, 06/09/20 15:18:00 EST, Partial fill upon patient request if the prescription is for a schedule II opioid drug. Start Date: 06/09/20 Status: Orderedred yeast rice 600 mg oral capsule 2 capsule = 1,200 mg, By Mouth, Daily, 0 Refills, Maintenance, 06/11/14 7:59:45 Start Date: 06/11/14 Status: OrderedSevelamer HCL Tablet 800 mg, By Mouth, 3 times a day, Refills 0, Maintenance, 03/18/20 8:52:00 EST, Partial fill upon patient request if the prescription is for a schedule II opioid drug. Start Date: 03/18/20 Status: Orderedthiothixene 5 mg oral capsule 3 capsule = 15 mg, By Mouth, Daily, 0 Refills, Maintenance, 06/11/14 7:58:14 EDT Start Date: 06/11/14 Status: OrderedTriphrocaps oral capsule 1 capsule, By Mouth, Daily, 0 Refills, Maintenance, 06/09/20 15:19:00 EST, Partial fill upon patientrequest if the prescription is for a schedule II opioid drug. Start Date: 06/09/20 Status: OrderedVitamin D3 50,000 intl units oral capsule 1 capsule = 50,000 International_Units, By Mouth, Every 7 days, # 12 capsule, 0 Refills, Maintenance, 06/09/20 15:16:00 EST, Capsule, Partial fill upon patient request if the prescription is for a schedule II opioid drug. Start Date: 06/09/20 Status: Ordered Problem List Condition Effective Dates Status Health Status Informant DVT (deep venous Active thrombosis)(Confirmed) ESRD on hemodialysis(Confirmed) Active Hypertension(Confirmed) Active Social History Social History Type Response Smoking Status Never (less than 100 in life time) entered on: 06/07/19 Sex
[2022-03-10 10:44] LABS: Bacteria Urine None Seen (None Seen); Hyaline Casts Urine 0-2 /LPF (0-2); RBC Urine 0-2 /HPF (0-2); Squamous Epithelial Cell Urine 0-2 /HPF (0-2); WBC Urine 0-5 /HPF (0-5)
[2022-03-10 10:56] LABS: Amphetamine Screen Urine Not Detected (Not Detect); Barbiturates, Urine Not Detected (Not Detect); Benzodiazepines Screen Urine Not Detected (Not Detect); Cannabinoid Screen Urine Not Detected (Not Detect); Cocaine Screen Urine Not Detected (Not Detect); Fentanyl, urine Not Detected (Not Detect); Opiate Screen Urine Not Detected (Not Detect); Phencyclidine Screen Urine Not Detected (Not Detect)
[2022-03-10 10:57] LABS: MANUAL DIFF FLAG NO
[2022-03-10 11:02] LABS: Basophils Percent Auto 0.6 % (0-2); Imm Gran Abs Auto 0.03 X10*3/uL (0.00-0.03); Imm Gran Pct Auto 0.6 % (0.0-0.4); PLT CLUMP 1; Red Cell Distribution Width 13.4 % (11.0-16.0); SCAN SMEAR FLAG 1
[2022-03-10 11:03] LABS: Eosinophils Absolute Auto 0.1 X10*3/uL (0.0-0.4); Eosinophils Percent Auto 1.7 % (0-4); Hematocrit 29.1 % (42.0-52.0); Hemoglobin 9.8 g/dl (14.0-18.0); Lymphocytes Absolute Auto 0.7 X10*3/uL (1.2-4.9); Lymphocytes Percent Auto 14.9 % (20-40); Mean Corpuscular HGB Conc 33.7 g/dl (31.0-36.0); Mean Corpuscular Hemoglobin 35.3 pg (27.0-33.0); Mean Corpuscular Volume 104.7 fL (80.0-98.0); Mean Platelet Volume 10.9 fL (9.4-12.4); Monocytes Absolute Auto 0.7 X10*3/uL (0.1-1.2); Monocytes Percent Auto 13.9 % (2-11); Neutrophils Absolute Auto 3.3 x10*3/uL (2.0-8.3); Neutrophils Percent Auto 68.3 % (45-73); Red Blood Count 2.78 X10*6/uL (4.60-5.80)
[2022-03-10 11:09] LABS: Platelet Count 134 X10*3/uL (160-400); White Blood Count 4.8 X10*3/uL (4.8-10.8)
[2022-03-10 11:24] LABS: Influenza A PCR NEGATIVE (Negative); Influenza B PCR NEGATIVE (Negative); Resp Syncy Virus RNA Qual PCR NEGATIVE (Negative); SARS COV2 PCR INHOUSE NEGATIVE (Negative)
[2022-03-10 11:49] LABS: Alanine Aminotransferase 10 U/L (0-40); Albumin Level 4.1 g/dL (3.5-5.0); Alkaline Phosphatase 39 U/L (39-117); Anion Gap 17 (12-20); Aspartate Amino Transferase 13 U/L (5-37); Blood Urea Nitrogen 24 mg/dL (9-16); Calcium 9.4 mg/dL (8.4-10.2); Carbon Dioxide 28 mmol/L (22-29); Chloride 96 mmol/L (96-108); Creatinine Clr Calc Pharmacy 11.1; Estimated Glomerular Filt Rate 8; Ethanol < 10 mg/dL; Glucose Random 87 mg/dL (60-115); Potassium 3.9 mmol/L (3.3-5.1); Sodium 137 mmol/L (135-145); Total Protein 6.5 g/dL (6.5-8.0)
[2022-03-10 12:22] LABS: Bilirubin Total 0.5 mg/dL (0.0-1.0)
--- NOTE | 2022-03-10 12:47 | PC.NURSE ---
Per Melanie GONZALEZ: Nephro is aware of patient and will put orders in for dialysis tomorrow (03/11)
[2022-03-10 12:56] VITALS: BP 156/78; PULSE 92; RESP 16; TEMP 36.6; O2SAT 98
[2022-03-10 15:46] VITALS: BP 146/80; PULSE 74; RESP 16; TEMP 36.5; O2SAT 96
[2022-03-10] MEDS: Benztropine Mesylate 1 MG TABLET PO (22:41)
[2022-03-10] MEDS: Cholecalciferol (Vitamin D3) 25 MCG TABLET 50 MCG PO (22:41)
--- NOTE | 2022-03-10 23:04 | PC.ADMIT ---
pt is a 67 year old male who presented to [facility] ED after presenting to [place] [employer] with delusion of witnessing a murder of someone 40 years ago. pt has PMH of kidney failure and bipolar disorder. during admission, pt presents as pleasant, but says he forget some things. pt remembered facts over time. pt took nighttime meds of D3 and cogentin for tremors. pt ate dinner. pt socialized with peers in dining room.
--- NOTE | 2022-03-10 23:11 | PC.NURSE ---
pattern chart writer talked to [facility] diaylsis nurse antoinette. pt will have diaylsis in the early afternoon.
[2022-03-11 06:00] VITALS: BP 181/93; PULSE 72; RESP 18; TEMP 36.2; O2SAT 96
[2022-03-11] MEDS: Benztropine Mesylate 1 MG TABLET PO ×2 (09:45→19:51)
--- NOTE | 2022-03-11 10:20 | HO.PSYADMNOT ---
HPI Date of Service: 03/11/22 Chief Complaint: disorganized and suicidal ideation Sources of Information: patient interviewed and crisis/core team assessment reviewed HPI Subjective Notes: Strange Warning and Conditional Voluntary Narrative: Patient is a 67 yo male with hx of bipolar/psychosis, ESRD on Dialysis who presents for disorganized behavior in face of not taking medications for past month. Pt is back on his medications and more stable on admission. He says he stopped taking them regularly since he dislikes them and the way them make him feel, though he is vague on this. Recently patient misunderstood his x ray equipment servicer and thought they wanted to give him a blood transfusion; feeling anxious he went for a drive w/out telling anyone and ended up in [place]. Pt was fully aware of the drive, where he was, had money with him, refilled for gas, knew directions, appropriately dressed, however since he did not say where he was going, filed missing persons report and police pulled him over on his way back home. After that, pt went to police station to tell about a murder he witnessed almost 50 years ago (see hx below). Patient says he wants to get back on medication realizing he needs it; he is anxious about whether to tell his about murder incident. Pt knows his medication names, doses and timing; denies any SI or HI or AVH. Regarding telling police about murder: Pt tells story that in his early 20's he and friend were in [place] and witnessed a murder; neither told anyone about it. 2 years later, pt was in school and had what sounds like his first psychotic/manic break where he thought his friend told police he was the murderer. Pt was psychiatrically hospitalized. Past Psychiatric History: Bipolar d/o ? psychosis . Hx M 5 admissions and [facility] in 1990, No Op providers currently? 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 Substance History: none reported Trauma History: Deferred Diagnostics Vital Signs (24Hr): Vital Signs - 24 hr 03/10/22 12:56 03/10/22 15:46 03/11/22 06:00 Temperature 97.8 F 97.7 F 97.2 F Pulse Rate 92 74 72 Respiratory Rate 16 16 18 Blood Pressure 156/78 H 146/80 H 181/93 H Pulse Oximetry 98 96 96 Oxygen Delivery Method Room Air Room Air Room Air BMI result Body Mass Index 37.1 Labs Results: 03/10/22 10:51 03/10/22 10:51 Labs: Laboratory Results - last 48 hr 03/10/22 03/10/22 03/10/22 10:20 10:21 10:23 WBC RBC Hgb Hct MCV MCH MCHC RDW Plt Count MPV Immature Gran % (Auto) Neut % (Auto) Lymph % (Auto) [place] % (Auto) Eos % (Auto) Baso % (Auto) Lymph # (Auto) [place] # (Auto) Eos # (Auto) Baso # (Auto) Abs Immat Gran (auto) Absolute Neuts (auto) Absolute Nucleated RBC Nucleated RBC % (auto) Sodium Potassium Chloride Carbon Dioxide Anion Gap BUN Creatinine Estim Creat Clear Calc Estimated GFR Random Glucose Calcium Total Bilirubin AST ALT Alkaline Phosphatase Total Protein Albumin Urine Color Yellow Urine Appearance Clear Urine pH 8.5 Ur Specific [place] <= 1.005 Urine Protein 100 (2+) H Urine Glucose (UA) 250 H Urine Ketones Negative Urine Blood Trace H Urine Nitrite Negative Ur Leukocyte Esterase Negative Urine RBC 0-2 Urine WBC 0-5 Ur Squamous Epith Cells 0-2 Urine Bacteria None Seen Hyaline Casts 0-2 Urine Opiates Screen Not Detected Urine Fentanyl Screen Not Detected Ur Barbiturates Screen Not Detected Ur Phencyclidine Scrn Not Detected Ur Amphetamines Screen Not Detected U Benzodiazepines Scrn Not Detected Urine Cocaine Screen Not Detected U Marijuana (THC) Screen Not Detected Ethyl Alcohol Influenza Type A (PCR) NEGATIVE Influenza Type B (PCR) NEGATIVE RSV RNA Qual (PCR) NEGATIVE SARS-CoV-2 RNA (RT-PCR) NEGATIVE 03/10/22 03/10/22 10:51 10:51 WBC 4.8 RBC 2.78 L Hgb 9.8 L Hct 29.1 L MCV 104.7 H MCH 35.3 H MCHC 33.7 RDW 13.4 Plt Count 134 L MPV 10.9 Immature Gran % (Auto) 0.6 H Neut % (Auto) 68.3 Lymph % (Auto) 14.9 L [place] % (Auto) 13.9 H Eos % (Auto) 1.7 Baso % (Auto) 0.6 Lymph # (Auto) 0.7 L [place] # (Auto) 0.7 Eos # (Auto) 0.1 Baso # (Auto) 0.0 Abs Immat Gran (auto) 0.03 Absolute Neuts (auto) 3.3 Absolute Nucleated RBC 0.000 Nucleated RBC % (auto) 0.0 Sodium 137 Potassium 3.9 Chloride 96 Carbon Dioxide 28 Anion Gap 17 BUN 24 H Creatinine 7.07 H* Estim Creat Clear Calc 11.1 Estimated GFR 8 Random Glucose 87 Calcium 9.4 Total Bilirubin 0.5 AST 13 ALT 10 Alkaline Phosphatase 39 Total Protein 6.5 D Albumin 4.1 D Urine Color Urine Appearance Urine pH Ur Specific [place] Urine Protein Urine Glucose (UA) Urine Ketones Urine Blood Urine Nitrite Ur Leukocyte Esterase Urine RBC Urine WBC Ur Squamous Epith Cells Urine Bacteria Hyaline Casts Urine Opiates Screen Urine Fentanyl Screen Ur Barbiturates Screen Ur Phencyclidine Scrn Ur Amphetamines Screen U Benzodiazepines Scrn Urine Cocaine Screen U Marijuana (THC) Screen Ethyl Alcohol < 10 Influenza Type A (PCR) Influenza Type B (PCR) RSV RNA Qual (PCR) SARS-CoV-2 RNA (RT-PCR) Meds/Allergies Meds Home Medications Medication Instructions Recorded Confirmed Type benztropine 1 mg tablet 2 tab PO BID 03/10/22 03/10/22 History divalproex 500 mg tablet,extended 2 tab PO BEDTIME 03/10/22 03/10/22 History release 24 hr lidocaine-prilocaine 2.5 %-2.5 % 1 appl topical DIRECTED 03/10/22 03/10/22 History topical cream olanzapine 15 mg tablet 1 tab PO BEDTIME 03/10/22 03/10/22 History olanzapine 2.5 mg tablet 1 tab PO BEDTIME 03/10/22 03/10/22 History olanzapine 20 mg tablet 1 tab PO BEDTIME 03/10/22 03/10/22 History thiothixene 5 mg capsule 1 cap PO DAILY 03/10/22 03/10/22 History Allergies Allergies Allergy/AdvReac Type Severity Reaction Status Date / Time No Known Allergies Allergy Mild NOT Unverified 12/19/19 17:37 APPLICABLE Mental Status Exam Mental Status Exam Narrative: Pt is alert and oriented; behavior is cooperative, friendly and calm; dressed in hospital attire with adequate hygiene; mood is described as good but a little tearful, anxious; eye contact appropriate; Speech is normal rate, volume and prosody and not pressured; b/l hand tremor; some tongue fasiculations; no psychomotor agitation/retardation present; thought process is organized and goal directed; Thought content is on tx but also on delusional thought; otherwise pertinent to relevant topics; denies any SI/HI. There is no evidence of perceptual disturbance. Patients insight and judgment appear impaired but adequate and maybe at baseline. Assessment & Plan Assessment & Plan (1) Bipolar disorder: Status: Acute Code(s): F31.9 - Bipolar disorder, unspecified (2) Dialysis patient: Status: Acute Code(s): Z99.2 - Dependence on renal dialysis Plan Patient is a 67 yo male with hx of bipolar/psychosis, ESRD on Dialysis who presents for disorganized behavior in face of not taking medications for past month. Pt is back on his medications and more stable on admission and stabilizating. Some delusional thinking, likely baseline Plan: CV q15 min continue Depakote ER 1000mg qhs order labs Continue Zyprexa 15mg qhs Continue Benztropine 2mg BID HOLDING Thiothixiene for now Dialysis MWF Add Aspirin 81mg daily (said takes at home) get collateral from Patient educated on: diagnosis, medication risk/benefits and medical condition Informed Consent: understands, does not understand and further education needed Reason for continued inpatient stay Substantial Risk for: med/psych decompensation Statement Statement: I have reviewed the history and physical and performed a pertinent examination on my patient. No changes have occurred unless specified.
--- NOTE | 2022-03-11 16:36 | PM.CNNEP ---
History of Present Illness Reason for Consult Consult date: 03/11/22 Reason for consult: Management of ESRD and dialysis care Chief Complaint Chief complaint: disorganized and suicidal ideation History of Present Illness Narrative: Marco is a 67 yo man with ESRD on regular hemodialysis M who presented for psychiatric admission for depression and suicidal ideation for med adjustment. I am seeing him on dialysis ordered yesterday by Dr. Blair. He has been compliant with his dialysis. He has a long history of depression. He is feeling a bit better since yesterday. Review of Systems Constitutional: Reports no additional constitutional complaints, Denies chills, Denies fever(s) and Denies night sweats Eyes: Reports no additional eye complaints, Denies blurry vision, Denies change in vision, Denies diplopia, Denies eye discharge, Denies loss of vision and Denies eye pain Denies dizziness Cardiovascular: Reports no additional cardiovascular complaints, Denies chest pain, Denies lightheadedness, Denies Loss of Consciousness and Denies dyspnea Respiratory: Reports no additional respiratory complaints and Denies dyspnea Gastrointestinal: Reports no additional gastrointestinal complaints, Denies abdominal pain, Denies melena, Denies hematochezia, Denies change in bowel habits and Denies change in stool character Genitourinary: Reports no additional male genitourinary complaints, Denies hematuria, Denies oliguria, Denies difficulty urinating, Denies dysuria, Denies urinary frequency, Denies urinary hesitancy, Denies urinary incontinence and Denies urinary urgency Musculoskeletal: Reports no additional musculoskeletal complaints, Denies numbness and Denies tingling Denies dizziness, Denies loss of vision, Denies numbness and Denies tingling Comments: Tremulous Psychiatric: Reports no additional psychiatric complaints, Denies homicidal ideation and Reports suicidal ideation Endocrine: Reports no additional endocrine complaints Hematologic/Lymphatic: Reports no additional hematologic/lymphatic complaints Allergic/Immunologic: Reports no additional allergic/immunologic complaints PMFSH Past Medical History Medical History (Updated 03/11/22 @ 16:41 by Maci Manning MD) Anemia Anemia Bipolar disorder Dialysis patient Hypertension Social History Social History Household Members: Spouse Housing: House Do you presently have visiting nurse or other home services: No Alcohol intake: never Patient Tobacco Use Status: Never used Tobacco Smoked in Last 30 Days: No Second Hand Smoke Exposure: No Use of substances other than those prescribed or required for medical reasons: No Currently Displaying Signs/Symptoms of Drug Intoxication Withdrawal: No Have you been hit, kicked, punched, or otherwise hurt by someone within the past year? If so, by whom?: No Do you feel safe in your current relationship?: No Is there a partner from a previous relationship who is making you feel unsafe now?: No Are you made to feel afraid or neglected: No Advance Directives: Yes Advance Directives Information Provided: No Advance Directives on File: No Do you have thoughts of harming others: None Do you have a plan to hurt others: No Plan Recently lost weight without trying: No How much weight loss: Not applicable Eating poorly because of decreased appetite: No Nutrition screen score: 0 Nutrition Risks: No Nutritional Risk Poor oral hygiene: No service: No Sexual orientation: Straight/Heterosexual Meds Allergies Allergy/AdvReac Type Severity Reaction Status Date / Time No Known Allergies Allergy Mild NOT Unverified 12/19/19 17:37 APPLICABLE Active Medications: Current Medications Acetaminophen (Acetaminophen 325 Mg Tablet) 650 mg PO Q6H PRN PRN Reason: Headache/Pain Mild Scale (1-3) Al Hydroxide/Mg Hydroxide (Magnesium Hydrox/Alum Hydrox 30 Ml Oral.Susp) 30 ml PO Q6H PRN PRN Reason: Heartburn/Nausea Benztropine Mesylate (Benztropine Mesylate 1 Mg Tablet) 1 mg PO BID DEVON Last Admin: 03/11/22 09:45 Dose: 1 mg Divalproex Sodium (Divalproex Sodium Er 500 Mg Tab.Er.24h) 1,000 mg PO BEDTIME DEVON Magnesium Hydroxide (Milk Of Magnesia 30 Ml Oral.Susp) 30 ml PO DAILY PRN PRN Reason: Constipation Nicotine Polacrilex (Nicotine Polacrilex 2 Mg Gum) 4 mg BUCCAL Q2H PRN PRN Reason: Nicotine Cravings Olanzapine (Olanzapine 7.5 Mg Tablet) 15 mg PO BEDTIME DEVON Trazodone HCl (Trazodone Hcl 50 Mg Tablet) 50 mg PO BEDTIME PRN PRN Reason: Insomnia Home Medications Medication Instructions Recorded Confirmed Last Taken Type benztropine 1 mg tablet 2 tab PO BID 03/10/22 03/10/22 Unknown History divalproex 500 mg tablet,extended 2 tab PO BEDTIME 03/10/22 03/10/22 Unknown History release 24 hr lidocaine-prilocaine 2.5 %-2.5 % 1 appl topical DIRECTED 03/10/22 03/10/22 Unknown History topical cream olanzapine 15 mg tablet 1 tab PO BEDTIME 03/10/22 03/10/22 Unknown History olanzapine 2.5 mg tablet 1 tab PO BEDTIME 03/10/22 03/10/22 Unknown History olanzapine 20 mg tablet 1 tab PO BEDTIME 03/10/22 03/10/22 Unknown History thiothixene 5 mg capsule 1 cap PO DAILY 03/10/22 03/10/22 Unknown History Physical Exam Vital Signs: Last Vital Signs Temp 97.2 F 03/11/22 06:00 Pulse 72 03/11/22 06:00 Resp 18 03/11/22 06:00 BP 181/93 H 03/11/22 06:00 Pulse Ox 96 03/11/22 06:00 O2 Del Method 03/11/22 06:00 BMI result Body Mass Index 37.1 Const General: cooperative, no acute distress, alert and awake Nutritional Appearance: well nourished Orientation/consciousness: patient oriented x3 Limitations: no limitations HEENT Head: Yes normal to inspection and Yes atraumatic Ears: hearing grossly normal bilaterally and external ears normal General nose exam: Normal external nose present, no nasal discharge noted and no epistaxis Face and sinus: Yes normal facial exam, No abrasion and No laceration Mouth: Normal oral and palatal mucosa present, no drooling and no muffled voice Eyes General: appearance normal, both eyes and all related structures Periorbital: periorbital findings normal Eyelids: Yes eyelids normal Conjunctivae: conjunctivae normal Pupils: Equal, round and reactive pupils present EOM: EOMs intact bilaterally Neck Neck: Yes normal visual inspection, Yes full ROM and Yes no lymphadenopathy Chest Chest palpation & inspection: normal inspection of the chest Resp Effort & Inspection: normal respiratory effort and able to speak in complete sentences Auscultation: clear to auscultation bilaterally Cardio Rate: regular rate Rhythm: regular rhythm GI Inspection: Yes normal to inspection Neuro General: patient oriented x3 and moves all extremities Cranial nerves: Yes Equal, round and reactive pupils present Cognition (Neuro): normal cognition Motor exam (neuro): 5/5 motor strength present throughout Sensory Exam: Normal double simultaneous stimulation for sensation Coordination: [id number] test normal Extrem General: Yes normal to inspection, Yes full ROM and Yes capillary refill normal Psych Appearance: grossly normal Mental Status: mental status grossly normal Affect: Sad affect present Attitude: cooperative Thought process: Normal thought process present Thought content: Suicidality present Insight: Limited insight present (Psych) Judgement: Limited judgement present (Psych) Results Lab Results Result Diagrams: 03/10/22 10:51 03/10/22 10:51 Lab results: Chemistry 03/10/22 10:51 Sodium 137 Potassium 3.9 Carbon Dioxide 28 BUN 24 H Creatinine 7.07 H* Calcium 9.4 Hematology 03/10/22 10:51 WBC 4.8 Hgb 9.8 L Plt Count 134 L Urinalysis 03/10/22 10:20 Urine Color Yellow Urine Appearance Clear Urine pH 8.5 Ur Specific [place] <= 1.005 Urine Protein 100 (2+) H Urine Glucose (UA) 250 H Urine Ketones Negative Urine Blood Trace H Urine Nitrite Negative Ur Leukocyte Esterase Negative Urine RBC 0-2 Urine WBC 0-5 Ur Squamous Epith Cells 0-2 Hyaline Casts 0-2 Assessment and Plan (1) ESRD (end stage renal disease): Status: Acute (2) Anemia: Status: Acute Plan Pt dialyzing now and will continue M WF schedule He receives Mircera, a long acting ERIKA at his outpt unit so will not dose epogen/procrit Monitor BP with med changes Time Spent With Patient Time: Total time managing care of this patient today ____ minutes. Procedures Date of Service Date of Service: 03/11/22
[2022-03-11 18:00] VITALS: BP 150/85; PULSE 77; TEMP 36.1; O2SAT 98
[2022-03-11] MEDS: Divalproex Sodium ER 500 MG TAB.ER.24H 1000 MG PO (19:50)
[2022-03-11] MEDS: OLANZapine 7.5 MG TABLET 15 MG PO (19:51)
--- NOTE | 2022-03-11 22:04 | PC.NURSE ---
pt had sucessful diaylsis. pt wanted to know more long acting medication micerna for dialysis. nep consult said he doesn't need it because its long acting.
--- NOTE | 2022-03-11 22:42 | PC.NURSE ---
pt needs bandages taken off in 24 hours on Monday03/12/22 at 4pm
[2022-03-12] MEDS: Benztropine Mesylate 1 MG TABLET PO ×2 (08:05→20:05)
[2022-03-12 08:08] VITALS: BP 135/98; PULSE 74; RESP 18; TEMP 36.4; O2SAT 98
[2022-03-12] MEDS: Aspirin Enteric Coated 81 MG TABLET.DR PO (13:16)
--- NOTE | 2022-03-12 14:32 | HO.PSYCHPN ---
Subjective Subjective Date of Service: 03/12/22 Reason For Visit: disorganized and suicidal ideation Medical Problems Affecting Mental Status: No Interim History: Met with patient. Discussed with Nursing. Chart reviewed. Overall he reports feeling stable. Denies depression or manic symptoms. Reports getting dialysis Wednesdays and Fridays. Did ask about medications and reports he does not want to take olanzapine and would prefer something else. Reports sleep was poor and he felt restless which he attributed to olanzapine. Did agree to start Seroquel, which might also be helpful in the context of EPS. Feels positive regarding Depakote. Denied SI. No agitation. Feeling well cared for. Medication Compliance: Yes Side effects from medications: Yes (? restless n olanzapine) Attending Groups: Yes Review of Systems Acute medical concerns: No Review of Systems Review of Systems Unremarkable Mental Status Exam Mental Status Exam Narrative: Very pleasant and engaged. No EPS evident. Organized. Articulate. Euthymic. No SI. No HI. No agitation. No overt psychosis noted. Insight and judgment fair Diagnostics Vital Signs (24Hr): Vital Signs - 24 hr 03/11/22 18:00 03/12/22 08:08 Temperature 96.9 F 97.6 F Pulse Rate 77 74 Respiratory Rate 18 Blood Pressure 150/85 H 135/98 H Pulse Oximetry 98 98 Oxygen Delivery Method Room Air Room Air BMI result Body Mass Index 37.1 Labs Results: 03/10/22 10:51 03/10/22 10:51 Medications Medications Current Medications Acetaminophen (Acetaminophen 325 Mg Tablet) 650 mg PO Q6H PRN PRN Reason: Headache/Pain Mild Scale (1-3) Al Hydroxide/Mg Hydroxide (Magnesium Hydrox/Alum Hydrox 30 Ml Oral.Susp) 30 ml PO Q6H PRN PRN Reason: Heartburn/Nausea Aspirin (Aspirin Enteric Coated 81 Mg Tablet.) 81 mg PO DAILY [facility] Benztropine Mesylate (Benztropine Mesylate 1 Mg Tablet) 1 mg PO BID [facility] Last Admin: 03/12/22 08:05 Dose: 1 mg Divalproex Sodium (Divalproex Sodium Er 500 Mg Tab.Er.24h) 1,000 mg PO BEDTIME [facility] Last Admin: 03/11/22 19:50 Dose: 1,000 mg Magnesium Hydroxide (Milk Of Magnesia 30 Ml Oral.Susp) 30 ml PO DAILY PRN PRN Reason: Constipation Nicotine Polacrilex (Nicotine Polacrilex 2 Mg Gum) 4 mg BUCCAL Q2H PRN PRN Reason: Nicotine Cravings Olanzapine (Olanzapine 7.5 Mg Tablet) 15 mg PO BEDTIME [facility] Last Admin: 03/11/22 19:51 Dose: 15 mg Trazodone HCl (Trazodone Hcl 50 Mg Tablet) 50 mg PO BEDTIME PRN PRN Reason: Insomnia Allergies Allergies Allergy/AdvReac Type Severity Reaction Status Date / Time No Known Allergies Allergy Mild NOT Unverified 12/19/19 17:37 APPLICABLE Assessment & Plan Assessment & Plan (1) Bipolar disorder: Status: Acute Code(s): F31.9 - Bipolar disorder, unspecified (2) Dialysis patient: Status: Acute Code(s): Z99.2 - Dependence on renal dialysis Plan Patient is a 67 yo male with hx of bipolar/psychosis, ESRD on Dialysis who presents for disorganized behavior in face of not taking medications for past month. Pt is back on his medications and more stable on admission and stabilizating. Some delusional thinking, likely baseline Plan: CV q15 min continue Depakote ER 1000mg qhs order labs Continue Zyprexa 15mg qhs Continue Benztropine 2mg BID HOLDING Thiothixiene for now Dialysis MWF Add Aspirin 81mg daily (said takes at home) get collateral from 03/12/22: does not want to take olanzapine and would prefer something else. Reports sleep was poor and he felt restless which he attributed to olanzapine. Did agree to start Seroquel, which might also be helpful in the context of EPS. I spent minutes with the patient and/or on the patient floor today, greater than?50% of which was spent counseling/coordinating care. Reason for contiued inpatient stay Substantial Risk for: rapid decompensation
[2022-03-12] MEDS: Divalproex Sodium ER 500 MG TAB.ER.24H 1000 MG PO (20:04)
[2022-03-12] MEDS: QUEtiapine Fumarate 50 MG TABLET PO (20:05)
[2022-03-12 21:01] VITALS: BP 150/90; PULSE 71; RESP 14; TEMP 36.1
[2022-03-13] MEDS: Aspirin Enteric Coated 81 MG TABLET.DR PO (09:31)
[2022-03-13] MEDS: Benztropine Mesylate 1 MG TABLET PO (09:32)
[2022-03-13 09:48] VITALS: BP 143/91; PULSE 74; RESP 18; TEMP 36.7; O2SAT 97
--- NOTE | 2022-03-13 13:06 | P.PNPSI_ITS ---
Subjective Subjective Date of Service: 03/13/22 Reason For Visit: disorganized and suicidal ideation Medical Problems Affecting Mental Status: No Interim History: Met with patient. Discussed with Nursing. Chart reviewed. Overall he reports feeling stable. Denies depression or manic symptoms. Feels that olanzapine was better tolerated than Seroquel (reports headache) and would like this at a lower dose. Discussed starting olanzapine again at 5 mg at bedtime. Also noted Thiothixene as home medication and will bring same in Reports sleep broken. Feels positive regarding Depakote. Denied SI. No agitation. Feeling well cared for. Medication Compliance: Yes Side effects from medications: No Attending Groups: Yes Review of Systems Acute medical concerns: No Review of Systems Review of Systems Unremarkable Mental Status Exam Mental Status Exam Narrative: Very pleasant and engaged. No EPS evident. Organized. Articulate. Euthymic. No SI. No HI. No agitation. No overt psychosis noted. Insight and judgment fair Diagnostics Vital Signs (24Hr): Vital Signs - 24 hr 03/12/22 21:01 03/13/22 09:48 Temperature 97 F 98.1 F Pulse Rate 71 74 Respiratory Rate 14 18 Blood Pressure 150/90 H 143/91 H Pulse Oximetry 97 Oxygen Delivery Method Room Air BMI result Body Mass Index 37.1 Labs Results: 03/10/22 10:51 03/10/22 10:51 Medications Medications Current Medications Acetaminophen (Acetaminophen 325 Mg Tablet) 650 mg PO Q6H PRN PRN Reason: Headache/Pain Mild Scale (1-3) Al Hydroxide/Mg Hydroxide (Magnesium Hydrox/Alum Hydrox 30 Ml Oral.Susp) 30 ml PO Q6H PRN PRN Reason: Heartburn/Nausea Aspirin (Aspirin Enteric Coated 81 Mg Tablet.Dr) 81 mg PO DAILY [facility] Last Admin: 03/13/22 09:31 Dose: 81 mg Benztropine Mesylate (Benztropine Mesylate 1 Mg Tablet) 2 mg PO BID [facility] Divalproex Sodium (Divalproex Sodium Er 500 Mg Tab.Er.24h) 1,000 mg PO BEDTIME [facility] Last Admin: 03/12/22 20:04 Dose: 1,000 mg Magnesium Hydroxide (Milk Of Magnesia 30 Ml Oral.Susp) 30 ml PO DAILY PRN PRN Reason: Constipation Nicotine Polacrilex (Nicotine Polacrilex 2 Mg Gum) 4 mg BUCCAL Q2H PRN PRN Reason: Nicotine Cravings Non-Formulary Medication (Thiothixene) 3 cap PO DAILY [facility] Olanzapine (Olanzapine 5 Mg Tablet) 5 mg PO BEDTIME [facility] Trazodone HCl (Trazodone Hcl 50 Mg Tablet) 50 mg PO BEDTIME PRN PRN Reason: Insomnia Allergies Allergies Allergy/AdvReac Type Severity Reaction Status Date / Time No Known Allergies Allergy Mild NOT Unverified 12/19/19 17:37 APPLICABLE Assessment & Plan Assessment & Plan (1) Bipolar disorder: Status: Acute Code(s): F31.9 - Bipolar disorder, unspecified (2) Dialysis patient: Status: Acute Code(s): Z99.2 - Dependence on renal dialysis Plan Patient is a 67 yo male with hx of bipolar/psychosis, ESRD on Dialysis who presents for disorganized behavior in face of not taking medications for past month. Pt is back on his medications and more stable on admission and stabilizating. Some delusional thinking, likely baseline Plan: CV q15 min continue Depakote ER 1000mg qhs order labs Continue Zyprexa 15mg qhs Continue Benztropine 2mg BID HOLDING Thiothixiene for now Dialysis MWF Add Aspirin 81mg daily (said takes at home) get collateral from 03/12/22: does not want to take olanzapine and would prefer something else. Reports sleep was poor and he felt restless which he attributed to olanzapine. Did agree to start Seroquel, which might also be helpful in the context of EPS. 03/13/22: Thiothixene 15mg is a home medication and will order same and will bring this in as non formulary. Change Seroquel back to olanzapine and schedule 5 mg at bedtime I spent minutes with the patient and/or on the patient floor today, greater than?50% of which was spent counseling/coordinating care. Reason for contiued inpatient stay Substantial Risk for: inability to function
[2022-03-13 16:19] VITALS: BP 138/81; PULSE 65; RESP 18; TEMP 36.3; O2SAT 97
[2022-03-13] MEDS: Benztropine Mesylate 1 MG TABLET 2 MG PO (20:11)
[2022-03-13] MEDS: OLANZapine 5 MG TABLET PO (20:11)
[2022-03-13] MEDS: Divalproex Sodium ER 500 MG TAB.ER.24H 1000 MG PO (20:11)
[2022-03-14 09:21] LABS: Ammonia 30 umol/L (13-55)
[2022-03-14 09:33] LABS: Alanine Aminotransferase 12 U/L (0-40); Albumin Level 4.2 g/dL (3.5-5.0); Alkaline Phosphatase 42 U/L (39-117); Aspartate Amino Transferase 15 U/L (5-37); Bilirubin Direct 0.2 mg/dL (0.0-0.5); Bilirubin Total 0.6 mg/dL (0.0-1.0); Total Protein 6.3 g/dL (6.5-8.0)
[2022-03-14 09:36] LABS: Valproate 44.5 mcg/mL (50.0-100.0)
--- NOTE | 2022-03-14 10:21 | P.PNPSI_ITS ---
Subjective Subjective Date of Service: 03/14/22 Reason For Visit: disorganized and suicidal ideation Interim History: pt says he's feeing better. On inquiry, he says he's no longer worried about the past business with the police, that it's not really on his mind any more (referring to delusional worry present on admission). Discussed medications and he agrees to continue home regimen and increase Zyprexa back to 15mg qhs. Pt asked about discharge soon and agrees to stay a little longer to further stabilize. [employer] talked to Sujata. She says on current regimen, pt has done well. thiothexiene 15mg since the ; when lowered got hospitalized. Admission to [facility] 2019 pt started on Zyprexa; did better for 1 year but eventually needed it raised to 15mg and has done well until stopped take meds regularly resulting in this admission Mental Status Exam Mental Status Exam Narrative: Pt is alert and oriented; behavior is cooperative, friendly and calm; dressed in hospital attire with adequate hygiene; mood is described as good affect congruent, calm; eye contact appropriate; Speech is normal rate, volume and prosody and not pressured; b/l hand tremor; some tongue fasiculations; no psychomotor agitation/retardation present; thought process is organized and goal directed; Thought content is on tx; delusional thought remains but with much less focus; otherwise pertinent to relevant topics; denies any SI/HI. There is no evidence of perceptual disturbance. Patients insight and judgment appear impaired but adequate and improved. Diagnostics Vital Signs (24Hr): Vital Signs - 24 hr 03/13/22 16:19 Temperature 97.3 F Pulse Rate 65 Respiratory Rate 18 Blood Pressure 138/81 Pulse Oximetry 97 Oxygen Delivery Method Room Air BMI result Body Mass Index 37.1 Labs Results: 03/10/22 10:51 03/10/22 10:51 Labs: Laboratory Results - last 48 hr 03/14/22 03/14/22 03/14/22 09:05 09:05 09:05 Total Bilirubin 0.6 Direct Bilirubin 0.2 AST 15 ALT 12 Alkaline Phosphatase 42 Ammonia 30 Total Protein 6.3 L Albumin 4.2 Valproic Acid 44.5 L Medications Medications Current Medications Acetaminophen (Acetaminophen 325 Mg Tablet) 650 mg PO Q6H PRN PRN Reason: Headache/Pain Mild Scale (1-3) Al Hydroxide/Mg Hydroxide (Magnesium Hydrox/Alum Hydrox 30 Ml Oral.Susp) 30 ml PO Q6H PRN PRN Reason: Heartburn/Nausea Aspirin (Aspirin Enteric Coated 81 Mg Tablet.Dr) 81 mg PO DAILY [facility] Last Admin: 03/13/22 09:31 Dose: 81 mg Benztropine Mesylate (Benztropine Mesylate 1 Mg Tablet) 2 mg PO BID [facility] Last Admin: 03/13/22 20:11 Dose: 2 mg Divalproex Sodium (Divalproex Sodium Er 500 Mg Tab.Er.24h) 1,000 mg PO BEDTIME [facility] Last Admin: 03/13/22 20:11 Dose: 1,000 mg Magnesium Hydroxide (Milk Of Magnesia 30 Ml Oral.Susp) 30 ml PO DAILY PRN PRN Reason: Constipation Nicotine Polacrilex (Nicotine Polacrilex 2 Mg Gum) 4 mg BUCCAL Q2H PRN PRN Reason: Nicotine Cravings Pt Own (Thiothixene (3 Cap)) 3 cap PO DAILY [facility] Last Admin: 03/13/22 13:39 Dose: 3 cap Olanzapine (Olanzapine 5 Mg Tablet) 5 mg PO BEDTIME [facility] Last Admin: 03/13/22 20:11 Dose: 5 mg Trazodone HCl (Trazodone Hcl 50 Mg Tablet) 50 mg PO BEDTIME PRN PRN Reason: Insomnia Allergies Allergies Allergy/AdvReac Type Severity Reaction Status Date / Time No Known Allergies Allergy Mild NOT Unverified 12/19/19 17:37 APPLICABLE Assessment & Plan Assessment & Plan (1) Bipolar disorder: Status: Acute Code(s): F31.9 - Bipolar disorder, unspecified (2) Dialysis patient: Status: Acute Code(s): Z99.2 - Dependence on renal dialysis Plan Patient is a 67 yo male with hx of bipolar/psychosis, ESRD on Dialysis who presents for disorganized behavior in face of not taking medications for past month. Pt is back on his medications and more stable on admission and stabilizating. Some delusional thinking, likely baseline 03/14 agrees to go back to home regimen including Zyprexa 15mg since reports has been stable on this med depakote level subtherapeutic but since on Dialysis, level will likely vary and clinical presentation will be more of a determining factor. LFT/Ammonia WNL Plan: CV q15 min continue Depakote ER 1000mg qhs order labs Increase back Zyprexa 15mg qhs Continue Benztropine 2mg BID restarted Thiothixiene 15mg qhs added Thiocaps, home med with B6 Dialysis MWF Aspirin 81mg daily (said takes at home) 03/12/22: does not want to take olanzapine and would prefer something else. Reports sleep was poor and he felt restless which he attributed to olanzapine. Did agree to start Seroquel, which might also be helpful in the context of EPS. 03/13/22: Thiothixene 15mg is a home medication and will order same and will bring this in as non formulary. Change Seroquel back to olanzapine and schedule 5 mg at bedtime I spent minutes with the patient and/or on the patient floor today, greater than?50% of which was spent counseling/coordinating care. Patient educated on: diagnosis and medication risk/benefits Informed Consent: understands Reason for contiued inpatient stay Substantial Risk for: med/psych decompensation Time Spent With Patient Time: Total time managing care of this patient today ____ minutes.
--- NOTE | 2022-03-14 11:40 | PM.PNNEP ---
Subjective Subjective Date of Service: 03/14/22 Interval history: Seen and exmiend today on HD Physical Exam Vital Signs: Vital Signs: Last Vital Signs Temp 97.3 F 03/13/22 16:19 Pulse 65 03/13/22 16:19 Resp 18 03/13/22 16:19 BP 138/81 03/13/22 16:19 Pulse Ox 97 03/13/22 16:19 O2 Del Method 03/13/22 16:19 BMI result Body Mass Index 37.1 Const: General: cooperative, no acute distress, alert and awake Nutritional Appearance: well nourished Orientation/consciousness: patient oriented x3 Limitations: no limitations HEENT: Head: Yes normal to inspection and Yes atraumatic Ears: hearing grossly normal bilaterally and external ears normal General nose exam: Normal external nose present, no nasal discharge noted and no epistaxis Face and sinus: Yes normal facial exam, No abrasion and No laceration Mouth: Normal oral and palatal mucosa present, no drooling and no muffled voice Eyes: General: appearance normal, both eyes and all related structures Periorbital: periorbital findings normal Eyelids: Yes eyelids normal Conjunctivae: conjunctivae normal Pupils: Equal, round and reactive pupils present EOM: EOMs intact bilaterally Neck: Neck: Yes normal visual inspection, Yes full ROM and Yes no lymphadenopathy Chest: Chest palpation & inspection: normal inspection of the chest Resp: Effort & Inspection: normal respiratory effort and able to speak in complete sentences Auscultation: clear to auscultation bilaterally Cardio: Rate: regular rate Rhythm: regular rhythm GI: Inspection: Yes normal to inspection Neuro: General: patient oriented x3 and moves all extremities Cranial nerves: Yes Equal, round and reactive pupils present Cognition (Neuro): normal cognition Motor exam (neuro): 5/5 motor strength present throughout Sensory Exam: Normal double simultaneous stimulation for sensation Coordination: [id number] test normal Extrem: General: Yes normal to inspection, Yes full ROM and Yes capillary refill normal Psych: Appearance: grossly normal Mental Status: mental status grossly normal Affect: Sad affect present Attitude: cooperative Thought process: Normal thought process present Thought content: Suicidality present Insight: Limited insight present (Psych) Judgement: Limited judgement present (Psych) Objective Data Labs CBC & Chem 7: 03/10/22 10:51 03/10/22 10:51 Labs: Laboratory Results - last 24 hr 03/14/22 03/14/22 03/14/22 09:05 09:05 09:05 Total Bilirubin 0.6 Direct Bilirubin 0.2 AST 15 ALT 12 Alkaline Phosphatase 42 Ammonia 30 Total Protein 6.3 L Albumin 4.2 Valproic Acid 44.5 L Procedures Date of Service Date of Service: 03/14/22 Assessment & Plan Assessment and plan (1) ESRD (end stage renal disease): Status: Acute (2) Anemia: Status: Acute Plan Pt dialyzing now and will continue M WF schedule Anemia: cont epo as ordered HTN: cont meds Will follow with team Time Spent With Patient Time: Total time managing care of this patient today ____ minutes.
[2022-03-14] MEDS: Aspirin Enteric Coated 81 MG TABLET.DR PO (14:19)
[2022-03-14] MEDS: Benztropine Mesylate 1 MG TABLET 2 MG PO ×2 (14:19→19:56)
[2022-03-14] MEDS: Nicotine Polacrilex 2 MG GUM 4 MG BUCCAL (14:23)
[2022-03-14 14:29] VITALS: BP 181/83; PULSE 84; RESP 20; TEMP 36.4; O2SAT 96
[2022-03-14 16:47] VITALS: BP 151/67; PULSE 70; TEMP 35.9
[2022-03-14] MEDS: Divalproex Sodium ER 500 MG TAB.ER.24H 1000 MG PO (19:55)
[2022-03-14] MEDS: OLANZapine 7.5 MG TABLET 15 MG PO (19:55)
[2022-03-15] MEDS: Acetaminophen 325 MG TABLET 650 MG PO (00:46)
[2022-03-15 06:00] VITALS: BP 163/88; PULSE 86; RESP 18; TEMP 36.6; O2SAT 97
[2022-03-15] MEDS: Benztropine Mesylate 1 MG TABLET 2 MG PO ×2 (09:43→20:25)
[2022-03-15] MEDS: Aspirin Enteric Coated 81 MG TABLET.DR PO (09:43)
--- NOTE | 2022-03-15 16:40 | HO.PSYCHPN ---
Subjective Subjective Date of Service: 03/15/22 Reason For Visit: disorganized and suicidal ideation Interim History: reports feeling better; still references delusional thought, but says it's not bothering him. Asks about help with outpt doc. Mental Status Exam Mental Status Exam Narrative: Pt is alert and oriented; behavior is cooperative, friendly and calm; dressed in hospital attire with adequate hygiene; mood is described as good affect congruent, calm; eye contact appropriate; Speech is normal rate, volume and prosody and not pressured; b/l hand tremor; some tongue fasiculations; no psychomotor agitation/retardation present; thought process is organized and goal directed; Thought content is on tx; delusional thought remains but with much less focus; otherwise pertinent to relevant topics; denies any SI/HI. There is no evidence of perceptual disturbance. Patients insight and judgment appear impaired but adequate and improving. Diagnostics Vital Signs (24Hr): Vital Signs - 24 hr 03/14/22 16:47 03/15/22 06:00 Temperature 96.7 F L 97.8 F Pulse Rate 70 86 Respiratory Rate 18 Blood Pressure 151/67 H 163/88 H Pulse Oximetry 97 Oxygen Delivery Method Room Air BMI result Body Mass Index 37.1 Labs Results: 03/10/22 10:51 03/10/22 10:51 Labs: Laboratory Results - last 48 hr 03/14/22 03/14/22 03/14/22 09:05 09:05 09:05 Total Bilirubin 0.6 Direct Bilirubin 0.2 AST 15 ALT 12 Alkaline Phosphatase 42 Ammonia 30 Total Protein 6.3 L Albumin 4.2 Valproic Acid 44.5 L Medications Medications Current Medications Acetaminophen (Acetaminophen 325 Mg Tablet) 650 mg PO Q6H PRN PRN Reason: Headache/Pain Mild Scale (1-3) Last Admin: 03/15/22 00:46 Dose: 650 mg Al Hydroxide/Mg Hydroxide (Magnesium Hydrox/Alum Hydrox 30 Ml Oral.Susp) 30 ml PO Q6H PRN PRN Reason: Heartburn/Nausea Aspirin (Aspirin Enteric Coated 81 Mg Tablet.Dr) 81 mg PO DAILY [facility] Last Admin: 03/15/22 09:43 Dose: 81 mg Benztropine Mesylate (Benztropine Mesylate 1 Mg Tablet) 2 mg PO BID [facility] Last Admin: 03/15/22 09:43 Dose: 2 mg Divalproex Sodium (Divalproex Sodium Er 500 Mg Tab.Er.24h) 1,000 mg PO BEDTIME [facility] Last Admin: 03/14/22 19:55 Dose: 1,000 mg Magnesium Hydroxide (Milk Of Magnesia 30 Ml Oral.Susp) 30 ml PO DAILY PRN PRN Reason: Constipation Nicotine Polacrilex (Nicotine Polacrilex 2 Mg Gum) 4 mg BUCCAL Q2H PRN PRN Reason: Nicotine Cravings Last Admin: 03/14/22 14:23 Dose: 4 mg Pt Own (Thiothixene (3 Cap)) 3 cap PO DAILY [facility] Last Admin: 03/15/22 09:45 Dose: 3 cap Non-Formulary Medication (Triphrocaps) 1 mg PO DAILY [facility] Olanzapine (Olanzapine 7.5 Mg Tablet) 15 mg PO BEDTIME [facility] Last Admin: 03/14/22 19:55 Dose: 15 mg Trazodone HCl (Trazodone Hcl 50 Mg Tablet) 50 mg PO BEDTIME PRN PRN Reason: Insomnia Allergies Allergies Allergy/AdvReac Type Severity Reaction Status Date / Time No Known Allergies Allergy Mild NOT Unverified 12/19/19 17:37 APPLICABLE Assessment & Plan Assessment & Plan (1) Bipolar disorder: Status: Acute Code(s): F31.9 - Bipolar disorder, unspecified (2) Dialysis patient: Status: Acute Code(s): Z99.2 - Dependence on renal dialysis Plan Patient is a 67 yo male with hx of bipolar/psychosis, ESRD on Dialysis who presents for disorganized behavior in face of not taking medications for past month. Pt is back on his medications and more stable on admission and stabilizating. Some delusional thinking, likely baseline 03/12/22: does not want to take olanzapine and would prefer something else. Reports sleep was poor and he felt restless which he attributed to olanzapine. Did agree to start Seroquel, which might also be helpful in the context of EPS. 03/13/22: Thiothixene 15mg is a home medication and will order same and will bring this in as non formulary. Change Seroquel back to olanzapine and schedule 5 mg at bedtime 03/14 agrees to go back to home regimen including Zyprexa 15mg since reports has been stable on this med depakote level subtherapeutic but since on Dialysis, level will likely vary and clinical presentation will be more of a determining factor. LFT/Ammonia WNL 03/15 seems to be stabiizing; says not back to baseline but improving Plan: CV q15 min continue Depakote ER 1000mg qhs Incdrease back Zyprexa 15mg qhs Continue Benztropine 2mg BID restarted Thiothixiene 15mg qhs added Thiocaps, home med with B6 Dialysis MWF Aspirin 81mg daily (said takes at home) I spent minutes with the patient and/or on the patient floor today, greater than?50% of which was spent counseling/coordinating care. Patient educated on: diagnosis Informed Consent: understands Reason for contiued inpatient stay Substantial Risk for: med/psych decompensation Time Spent With Patient Time: Total time managing care of this patient today ____ minutes.
[2022-03-15 18:00] VITALS: BP 145/84; PULSE 72; RESP 18; TEMP 36.5; O2SAT 97
[2022-03-15] MEDS: OLANZapine 7.5 MG TABLET 15 MG PO (20:26)
[2022-03-15] MEDS: Divalproex Sodium ER 500 MG TAB.ER.24H 1000 MG PO (20:26)
--- NOTE | 2022-03-16 07:21 | HO.PSYCHPN ---
Subjective Subjective Date of Service: 03/16/22 Reason For Visit: disorganized and suicidal ideation Interim History: Patient reports he is doing well. Had a good visit With a friend of his; he Talked to his who Thinks he is getting ready to come home and told SW the same. Patient asked adjusto writer operator if he should tell his about his discussion with the police and having witnessed a murder; adjusto writer operator said that it is up to him but that his can probably handle it.? Patient will still consider.? Of note, staff reports that patient is doing better than they have ever seen him in past admissions; although he remains in hospital attire, this is standard for him during hospitalizations. Mental Status Exam Mental Status Exam Narrative: Pt is alert and oriented; behavior is cooperative, friendly and calm; dressed in hospital attire with adequate hygiene; mood is described as good affect congruent, calm; eye contact appropriate; Speech is normal rate, volume and prosody and not pressured; b/l hand tremor; some tongue fasiculations; no psychomotor agitation/retardation present; thought process is organized and goal directed; Thought content is on tx; delusional thought remains but with much less focus; otherwise pertinent to relevant topics; denies any SI/HI. There is no evidence of perceptual disturbance. Patients insight and judgment appear impaired but improving and adequate. Diagnostics Vital Signs (24Hr): Vital Signs - 24 hr 03/15/22 18:00 Temperature 97.7 F Pulse Rate 72 Respiratory Rate 18 Blood Pressure 145/84 H Pulse Oximetry 97 Oxygen Delivery Method Room Air BMI result Body Mass Index 37.1 Labs Results: 03/10/22 10:51 03/10/22 10:51 Labs: Laboratory Results - last 48 hr 03/14/22 03/14/22 03/14/22 09:05 09:05 09:05 Total Bilirubin 0.6 Direct Bilirubin 0.2 AST 15 ALT 12 Alkaline Phosphatase 42 Ammonia 30 Total Protein 6.3 L Albumin 4.2 Valproic Acid 44.5 L Medications Medications Current Medications Acetaminophen (Acetaminophen 325 Mg Tablet) 650 mg PO Q6H PRN PRN Reason: Headache/Pain Mild Scale (1-3) Last Admin: 03/15/22 00:46 Dose: 650 mg Al Hydroxide/Mg Hydroxide (Magnesium Hydrox/Alum Hydrox 30 Ml Oral.Susp) 30 ml PO Q6H PRN PRN Reason: Heartburn/Nausea Aspirin (Aspirin Enteric Coated 81 Mg Tablet.) 81 mg PO DAILY [facility] TO [facility] Last Admin: 03/15/22 09:43 Dose: 81 mg Benztropine Mesylate (Benztropine Mesylate 1 Mg Tablet) 2 mg PO BID [facility] TO [facility] Last Admin: 03/15/22 20:25 Dose: 2 mg Divalproex Sodium (Divalproex Sodium Er 500 Mg Tab.Er.24h) 1,000 mg PO BEDTIME [facility] Last Admin: 03/15/22 20:26 Dose: 1,000 mg Magnesium Hydroxide (Milk Of Magnesia 30 Ml Oral.Susp) 30 ml PO DAILY PRN PRN Reason: Constipation Nicotine Polacrilex (Nicotine Polacrilex 2 Mg Gum) 4 mg BUCCAL Q2H PRN PRN Reason: Nicotine Cravings Last Admin: 03/14/22 14:23 Dose: 4 mg Pt Own (Thiothixene (3 Cap)) 3 cap PO DAILY [facility] Last Admin: 03/15/22 09:45 Dose: 3 cap Non-Formulary Medication (Triphrocaps) 1 mg PO DAILY [facility] Olanzapine (Olanzapine 7.5 Mg Tablet) 15 mg PO BEDTIME [facility] Last Admin: 03/15/22 20:26 Dose: 15 mg Trazodone HCl (Trazodone Hcl 50 Mg Tablet) 50 mg PO BEDTIME PRN PRN Reason: Insomnia Allergies Allergies Allergy/AdvReac Type Severity Reaction Status Date / Time No Known Allergies Allergy Mild NOT Unverified 12/19/19 17:37 APPLICABLE Assessment & Plan Assessment & Plan (1) Bipolar disorder: Status: Acute Code(s): F31.9 - Bipolar disorder, unspecified (2) Dialysis patient: Status: Acute Code(s): Z99.2 - Dependence on renal dialysis Plan Patient is a 67 yo male with hx of bipolar/psychosis, ESRD on Dialysis who presents for disorganized behavior in face of not taking medications for past month. Pt is back on his medications and more stable on admission and stabilizating. Some delusional thinking, likely baseline 03/12/22: does not want to take olanzapine and would prefer something else. Reports sleep was poor and he felt restless which he attributed to olanzapine. Did agree to start Seroquel, which might also be helpful in the context of EPS. 03/13/22: Thiothixene 15mg is a home medication and will order same and will bring this in as non formulary. Change Seroquel back to olanzapine and schedule 5 mg at bedtime 03/14 agrees to go back to home regimen including Zyprexa 15mg since reports has been stable on this med depakote level subtherapeutic but since on Dialysis, level will likely vary and clinical presentation will be more of a determining factor. LFT/Ammonia WNL 03/15 seems to be stabiizing; says not back to baseline but improving 03/16 Not quite at baseline but improved Plan: CV q15 min continue Depakote ER 1000mg qhs Incdrease back Zyprexa 15mg qhs Continue Benztropine 2mg BID restarted Thiothixiene 15mg qhs added Thiocaps, home med with [facility] Dialysis MWF Aspirin 81mg daily (said takes at home) I spent minutes with the patient and/or on the patient floor today, greater than?50% of which was spent counseling/coordinating care. Patient educated on: diagnosis Informed Consent: further education needed Reason for contiued inpatient stay Substantial Risk for: stable for discharge Time Spent With Patient Time: Total time managing care of this patient today ____ minutes.
[2022-03-16 08:45] VITALS: BP 140/96; PULSE 98; RESP 20; TEMP 36.6; O2SAT 97
[2022-03-16] MEDS: Aspirin Enteric Coated 81 MG TABLET.DR PO (13:30)
[2022-03-16] MEDS: Benztropine Mesylate 1 MG TABLET 2 MG PO ×2 (13:30→20:52)
[2022-03-16 13:36] VITALS: BP 150/72; PULSE 80; RESP 16; O2SAT 97
[2022-03-16 18:00] VITALS: BP 179/81; PULSE 73; RESP 18; TEMP 36; O2SAT 95
[2022-03-16] MEDS: OLANZapine 7.5 MG TABLET 15 MG PO (20:52)
[2022-03-16] MEDS: Divalproex Sodium ER 500 MG TAB.ER.24H 1000 MG PO (20:52)
[2022-03-17 07:00] VITALS: BMI 36.3
[2022-03-17 08:00] VITALS: BP 134/78; PULSE 84; RESP 18; TEMP 36.2; O2SAT 98
[2022-03-17] MEDS: Benztropine Mesylate 1 MG TABLET 2 MG PO ×2 (08:27→20:06)
[2022-03-17] MEDS: Aspirin Enteric Coated 81 MG TABLET.DR PO (08:27)
--- NOTE | 2022-03-17 15:17 | HO.PSYCHPN ---
Subjective Subjective Date of Service: 03/17/22 Reason For Visit: disorganized and suicidal ideation Interim History: Patient says he is doing well, has no complaints and looking forward to going home tomorrow. No reference to paranoid delusions. Patient says he will continue taking medications as prescribed and that he knows he needs them. Mental Status Exam Mental Status Exam Narrative: Pt is alert and oriented; behavior is cooperative, friendly and calm; dressed in hospital attire with adequate hygiene; mood is described as good affect congruent, calm; eye contact appropriate; Speech is normal rate, volume and prosody and not pressured; b/l hand tremor; some tongue fasiculations; no psychomotor agitation/retardation present; thought process is organized and goal directed; Thought content is on tx; delusional thought remains but with much less focus; otherwise pertinent to relevant topics; denies any SI/HI. There is no evidence of perceptual disturbance. Patients insight and judgment are fair and adequate. Diagnostics Vital Signs (24Hr): Vital Signs - 24 hr 03/16/22 18:00 03/17/22 08:00 Temperature 96.8 F 97.2 F Pulse Rate 73 84 Respiratory Rate 18 18 Blood Pressure 179/81 H 134/78 Pulse Oximetry 95 98 Oxygen Delivery Method Room Air Room Air BMI result Body Mass Index 36.3 Labs Results: 03/10/22 10:51 03/10/22 10:51 Medications Medications Current Medications Acetaminophen (Acetaminophen 325 Mg Tablet) 650 mg PO Q6H PRN PRN Reason: Headache/Pain Mild Scale (1-3) Last Admin: 03/15/22 00:46 Dose: 650 mg Al Hydroxide/Mg Hydroxide (Magnesium Hydrox/Alum Hydrox 30 Ml Oral.Susp) 30 ml PO Q6H PRN PRN Reason: Heartburn/Nausea Aspirin (Aspirin Enteric Coated 81 Mg Tablet.) 81 mg PO DAILY [facility] Last Admin: 03/17/22 08:27 Dose: 81 mg Benztropine Mesylate (Benztropine Mesylate 1 Mg Tablet) 2 mg PO BID [facility] Last Admin: 03/17/22 08:27 Dose: 2 mg Divalproex Sodium (Divalproex Sodium Er 500 Mg Tab.Er.24h) 1,000 mg PO BEDTIME [facility] Last Admin: 03/16/22 20:52 Dose: 1,000 mg Magnesium Hydroxide (Milk Of Magnesia 30 Ml Oral.Susp) 30 ml PO DAILY PRN PRN Reason: Constipation Nicotine Polacrilex (Nicotine Polacrilex 2 Mg Gum) 4 mg BUCCAL Q2H PRN PRN Reason: Nicotine Cravings Last Admin: 03/14/22 14:23 Dose: 4 mg Pt Own (Thiothixene (3 Cap)) 3 cap PO DAILY [facility] Last Admin: 03/17/22 08:28 Dose: 3 cap Non-Formulary Medication (Triphrocaps) 1 mg PO DAILY [facility] Olanzapine (Olanzapine 7.5 Mg Tablet) 15 mg PO BEDTIME [facility] Last Admin: 03/16/22 20:52 Dose: 15 mg Trazodone HCl (Trazodone Hcl 50 Mg Tablet) 50 mg PO BEDTIME PRN PRN Reason: Insomnia Allergies Allergies Allergy/AdvReac Type Severity Reaction Status Date / Time No Known Allergies Allergy Mild NOT Unverified 12/19/19 17:37 APPLICABLE Assessment & Plan Assessment & Plan (1) Bipolar disorder: Status: Acute Code(s): F31.9 - Bipolar disorder, unspecified (2) Dialysis patient: Status: Acute Code(s): Z99.2 - Dependence on renal dialysis Plan Patient is a 67 yo male with hx of bipolar/psychosis, ESRD on Dialysis who presents for disorganized behavior in face of not taking medications for past month. Pt is back on his medications and more stable on admission and stabilizating. Some delusional thinking, likely baseline 03/12/22: does not want to take olanzapine and would prefer something else. Reports sleep was poor and he felt restless which he attributed to olanzapine. Did agree to start Seroquel, which might also be helpful in the context of EPS. 03/13/22: Thiothixene 15mg is a home medication and will order same and will bring this in as non formulary. Change Seroquel back to olanzapine and schedule 5 mg at bedtime 03/14 agrees to go back to home regimen including Zyprexa 15mg since reports has been stable on this med depakote level subtherapeutic but since on Dialysis, level will likely vary and clinical presentation will be more of a determining factor. LFT/Ammonia WNL 03/15 seems to be stabiizing; says not back to baseline but improving 03/16 Not quite at baseline but improved 03/17 remains improved and close to baseline; feels he is ready to come home. Patient said he will continue taking his medications as prescribed and he knows he needs them. Patient is not in imminent risk for harm to self or others and is appropriate to continue treatment in the community. Plan: CV q15 min continue Depakote ER 1000mg qhs Incdrease back Zyprexa 15mg qhs Continue Benztropine 2mg BID restarted Thiothixiene 15mg qhs added Thiocaps, home med with B6 Dialysis MWF Aspirin 81mg daily (said takes at home) I spent minutes with the patient and/or on the patient floor today, greater than?50% of which was spent counseling/coordinating care. Patient educated on: diagnosis and medication risk/benefits Informed Consent: understands Reason for contiued inpatient stay Substantial Risk for: stable for discharge Time Spent With Patient Time: Total time managing care of this patient today ____ minutes.
[2022-03-17 16:16] VITALS: BP 149/80; PULSE 75; TEMP 36.4
[2022-03-17] MEDS: OLANZapine 7.5 MG TABLET 15 MG PO (20:06)
[2022-03-17] MEDS: Divalproex Sodium ER 500 MG TAB.ER.24H 1000 MG PO (20:06)
[2022-03-18] MEDS: Benztropine Mesylate 1 MG TABLET 2 MG PO (09:52)
[2022-03-18] MEDS: Aspirin Enteric Coated 81 MG TABLET.DR PO (09:52)
--- NOTE | 2022-03-18 10:17 | P.DS_ITS ---
DS: Providers Provider Date of Service: 03/18/22 Date of admission: 03/10/22 17:02 Date of discharge: 03/18/22 Primary care physician: CARLOS Pretty Attending physician on admission: Rcihard Mccord Consults: 03/14/22 10:58 Consult to Nephrology Routine Consulting Provider: Bradley Pena Reason for consultation: dialysis Has provider been notified: No Attending physician on discharge: Richard Mccord DS: Diagnosis Discharge Diagnosis (1) Bipolar disorder: Status: Acute (2) Dialysis patient: Status: Acute DS: Medications Discharge Medications Home Medications: Home Medications Medication Instructions Recorded Confirmed benztropine 1 mg tablet 2 tab PO BID 03/10/22 03/10/22 divalproex 500 mg tablet,extended 2 tab PO BEDTIME 03/10/22 03/10/22 release 24 hr lidocaine-prilocaine 2.5 %-2.5 % 1 appl topical DIRECTED 03/10/22 03/10/22 topical cream olanzapine 15 mg tablet 1 tab PO BEDTIME 03/10/22 03/10/22 olanzapine 2.5 mg tablet 1 tab PO BEDTIME 03/10/22 03/10/22 olanzapine 20 mg tablet 1 tab PO BEDTIME 03/10/22 03/10/22 thiothixene 5 mg capsule 1 cap PO DAILY 03/10/22 03/10/22 Mental Status Exam Mental Status Exam Narrative: Pt is alert and oriented; behavior is cooperative, friendly and calm; dressed in hospital attire with adequate hygiene; mood is described as good affect congruent, calm; eye contact appropriate; Speech is normal rate, volume and prosody and not pressured; b/l hand tremor; some tongue fasiculations; no psychomotor agitation/retardation present; thought process is organized and goal directed; Thought content is on tx; delusional thought remains but with little focus; otherwise pertinent to relevant topics; denies any SI/HI. There is no evidence of perceptual disturbance. Patients insight and judgment are fair and adequate. Data Data Completed and Pending Completed studies during hospitalization [Text1]: 03/14/22 03/14/22 03/14/22 09:05 09:05 09:05 Total Bilirubin 0.6 Direct Bilirubin 0.2 AST 15 ALT 12 Alkaline Phosphatase 42 Ammonia 30 Total Protein 6.3 L Albumin 4.2 Valproic Acid 44.5 L DS: Summary Hospital Course Hospital Course: HPI: Patient is a 67 yo male with hx of bipolar/psychosis, ESRD on Dialysis who presents for disorganized behavior in face of not taking medications for past month. Pt is back on his medications and more stable on admission and stabilizating. Some delusional thinking, likely baseline Hospital course: On admission, pt was focused on paranoid delusional thinking. Initially he did not want to get back on Zyprexa, c/o side-effects and was briefly started on Seroquel; however patient's reported that he does not really complain of side effects when stable and that this is the regimen that is most helped him. Saw [employer] discussed this with patient who agreed to get back on Zyprexa. Patient was also restarted on his Thiothixene 15mg. Over the next few days patient improved and while delusional thought remain, he was no longer focused on it, did not bring it up and said he was not worried about it. Patient was always appropriate with peers and staff, calm and friendly and demonstrated safe and appropriate behaviors and impulse control throughout his time in the unit. And in fact, Staff who know him said this was the best that ever seen him during an admission. He was without any SI or HI at all and denied any AVH. Patient attended dialysis Monday. His supportive visited and felt that he was very close to baseline and ready to come home. Patient expressed he knows he needs these medications and agreed that he would continue taking his medications as prescribed.?Patient is not in imminent risk for harm to self or others and is appropriate to continue treatment in the community. Time spent discussing smoking cessation with patient: 3 to 10 minutes Status at Discharge Functional status at discharge: independent ambulation Overall status at discharge: patient is progressing back to baseline Time Spent with Patient Time attestation: Total time managing care of this patient today ____ minutes. Time spent: Less than 30 minutes Discharge Plan Discharge Anticipated Discharge Date/Time: 03/18/22 15:00 Patient Disposition: Home, Self-Care Discharge Diagnosis: Bipolar disorder type I Referrals: Roya Jacobs [Other] - 04/27/22 1:30 pm (Follow-up discharge appointment with Psychiatric Provider Appointment is in Person at [facility] ) Brooke Meza PA [Primary Care Provider] - 1 Week Discharge Medications: New aspirin 81 mg Tablet,Delayed Release (Dr/Ec) 81 mg PO DAILY 30 Days Qty: 30 0RF Triphrocaps 1 mg PO DAILY 30 Days Qty: 30 0RF Continued lidocaine-prilocaine 2.5-2.5 % cream 1 appl topical DIRECTED Changed thiothixene 5 mg capsule 15 mg PO DAILY 30 Days Qty: 90 0RF divalproex 500 mg tablet extended release 24 hr 1,000 mg PO BEDTIME 30 Days Qty: 60 0RF benztropine 1 mg tablet 2 mg PO BID 30 Days Qty: 120 0RF olanzapine 15 mg tablet 15 mg PO BEDTIME 30 Days Qty: 30 0RF Discontinued olanzapine 2.5 mg tablet 1 tab PO BEDTIME olanzapine 20 mg tablet 1 tab PO BEDTIME Discharge Orders: Discharge Order (Routine); Ordered 03/18/22 Ordered By: Richard Mccord Diet: low Na diet Activity on Discharge: As tolerated Stand Alone Forms: Patient Portal Discharge page, Community Support Care Plan Goals: Maintain mood and safe behaviors Take medications as prescribed Practice coping skills Continue with outpatient providers and reach out to them as needed Health Concerns: Mood stability and behavior Dialysis/ESRD Plan of Treatment: Follow up with your PCP, psychiatric provider and other outpatient providers regarding above concerns Take medications as prescribed Assessment: Risk assessment at time of discharge:? Patient was interviewed prior to discharge and found to be fully oriented and without any SI or HI. Patient has insight and demonstrates good judgment in terms of wanting to pursue treatment. Patient is not in imminent risk of harm to self or others and has a safety plan that includes presenting to the closest ER or calling 911 if feeling unsafe.? Patient has been observed closely by nursing and unit staff throughout admission; patient has not engaged in any behaviors that suggest dangerousness to self or others and has demonstrated appropriate behaviors and impulse control Discharge Date/Time: 03/18/22 13:24
[2022-03-18 10:20] VITALS: BP 138/78; PULSE 78; RESP 18; TEMP 36.4; O2SAT 97
== END 2022-03-18 13:24 | disposition home or self-care (01) | DRG 885 ==
LOC: HO.ED 15:46 → HO.PM5 17:11
PROVIDERS: Physician Assistant Medical; Admitting Provider Psychiatry & Neurology Psychiatry; Emergency Provider Emergency Medicine; PCP Physician Assistant; Visit Provider Psychiatry & Neurology Psychiatry
DX: F31.9 Bipolar disorder, unspecified (principal); N18.6 End stage renal disease; R45.851 Suicidal ideations; I12.0 Hypertensive chronic kidney disease with stage 5 chronic kidney disease or end stage renal disease; D63.1 Anemia in chronic kidney disease; Z99.2 Dependence on renal dialysis; Z20.822 Contact with and (suspected) exposure to COVID-19; Z79.82 Long term (current) use of aspirin; Z79.899 Other long term (current) drug therapy
CPT/HCPCS: 0241U; 36415; 80053; 80076; 80164; 80307; 81001; 82077; 82140; 85025; 90935; 90999; 93005; 99285

== ENCOUNTER 2022-08-22 15:02 | Inpatient (IN) | payer MEDICARE, SELFPAY ==
--- NOTE | 2022-08-22 | ECG_ITS ---
Test Reason : CP Blood Pressure : / mmHG Vent. Rate : 068 BPM Atrial Rate : 068 BPM P-R Int : 142 ms QRS Dur : 090 ms QT Int : 412 ms P-R-T Axes : 027 -20 016 degrees QTc Int : 438 ms Normal sinus rhythm Normal ECG When compared with ECG of 10-MAR-2022 10:27, Premature atrial complexes are no longer Present Referred By: Valeriy Smith Electronically Signed By:WOODY COLE
--- NOTE | 2022-08-22 15:15 | ED_ITS ---
HPI - Psych General Chief Complaint: Psychiatric Symptoms Stated Complaint: psych eval Time Seen by Provider: 08/22/22 16:22 Source: patient and family () Mode of arrival: ambulatory Limitations: no limitations History of Present Illness HPI Narrative: 67-year-old male history of bipolar disorder, restting tremor, hypertension, end-stage renal disease on dialysis Monday, Monday, Monday last dialysis session this morning which he completed presenting to the emergency department with with concerns for changes in behavior for the past 3 weeks. According to has been has been paranoid, withdrawn, and generally abnormal. She reports that at dialysis he feels as though they are stealing his blood, and he is having a hard time with decision making, yesterday while they were at a restaurant patient took an hour to decide what he wanted to eat and then he got into his vehicle and started crying. Patient tells me he does not feel right, he reports med compliance. Denies visual, auditory and tactile hallucinations.. He denies drugs, alcohol and tobacco. Denies suicidal and homicidal ideation. He denies any medical complaints at this time. To note patient is not make urine. Related Data Home Medications Medication Instructions Recorded Confirmed ferric citrate 210 mg iron tablet 210 mg PO TID 08/22/22 08/22/22 (Auryxia) Previous Rx's Medication Instructions Recorded aspirin 81 mg tablet,delayed 81 mg PO DAILY 30 days #30 tabs 03/18/22 release benztropine 1 mg tablet 2 mg PO BID 30 days #120 tabs 03/18/22 divalproex 500 mg tablet,extended 1,000 mg PO BEDTIME 30 days #60 03/18/22 release 24 hr tabs thiothixene 5 mg capsule 15 mg PO DAILY 30 days #90 caps 03/18/22 Allergies Allergy/AdvReac Type Severity Reaction Status Date / Time No Known Allergies Allergy Mild NOT Verified 08/22/22 15:55 APPLICABLE Review of Systems Review of Systems: Constitutional : No Fever, No Chills ENT/Mouth : No Ear Pain, No Nasal Congestion, No sore throat Eyes: No Eye Pain, No Swelling, No Redness Cardiovascular : No Chest Pain, No SOB Respiratory : No Cough, No Sputum, No Dyspnea Gastrointestinal : No Nausea, No Vomiting, No Diarrhea, No Hematochezia, No Melena Genitourinary : No Dysuria, No Urinary Frequency, No Hematuria Musculoskeletal : No Myalgias Skin : No Skin Lesions, No rash Neuro : No Weakness, No Numbness, No Paresthesias, No Dizziness, No Headache Psych : positive Anxiety, positive Depression, No SI/HI Heme/Lymph: No Lymphadenopathy Endocrine : No Polyuria, No Polydipsia All other systems reviewed and are negative Yes all other systems are reviewed and are negative [facility] Past Medical History Attestation statement: The following information was validated with the patient. Source: old records reviewed and nursing notes reviewed Medical History (Updated 08/22/22 @ 16:55 by CARLOS Prince) Anemia Anemia Bipolar disorder Dialysis patient Hypertension Social History Social History Household Members: Spouse Housing: House Do you presently have visiting nurse or other home services: No Alcohol intake: never Patient Tobacco Use Status: Never used Tobacco Second Hand Smoke Exposure: No Advance Directives: No Advance Directives Information Provided: No Healthcare Proxy: Yes Guardian: No service: No Sexual orientation: Straight/Heterosexual Physical Exam Vital Signs: Vital Signs: Last Vital Signs Temp 98.6 F 08/22/22 15:16 Pulse 102 H 08/22/22 15:16 Resp 18 08/22/22 15:16 BP 148/78 H 08/22/22 15:16 Pulse Ox 95 08/22/22 15:16 O2 Del Method Room Air 08/22/22 15:16 BMI result Body Mass Index 27.7 vss Appearance: Alert.? Oriented X3.? No acute distress.? Head: Normocephalic, atraumatic, no step-offs or deformities Eyes: Pupils equal, round and reactive to light.? CVS: Normal heart rate and rhythm.? Pulses normal.? Respiratory: No respiratory distress.? Breath sounds normal.? Abdomen: Soft and nontender.? Skin: Skin warm and dry.? Normal skin color.? Normal skin turgor.? Extremities: No lower extremity edema.? No calf ttp. 5/5 strength to bilateral upper and lower extremities Neuro: Oriented X 3.? No motor deficit.? No sensory deficit. CN 2-12 intact Course Course Course Narrative: This is a rapid medical exam. Deferred additional HPI, ROS, PE to primary provider. 67 yo male with history of ESRD on HD (M,W, F), bipolar disorder, called crisis today and recommended patient come here for further evaluation. Family feels he needs medication adjustment d/t abnormal behavior (paranoia, crying, withdrawn) in the last few weeks. Will need labs, ESPINOZA, covid screen. VSS Reevaluation(s) Reevaluation #1: CBC appears to be around patient's baseline. Chemistry appears to be around patient's baseline, patient with history of ESRD, patient's BUN elevated and creatinine 6.01, he is a dialysis patient. No need for acute intervention at this time. No other electrolyte abnormalities requiring intervention. Salicylates, acetaminophen ethanol negative. Urine toxicology and UA pending as patient is anuric. This time patient will be placed into physician observation to allow more time to be evaluated by the behavioral health team for an assessment. At time observation was started patient common cooperative no acute distress will continue to monitor Time: 17:44 Reevaluation #2: Patient will go to S1 today Medical Decision Making Medical Decision Making [facility] Narrative: 1645 67-year-old male presents with abnormal behavior at home, paranoia a x3 weeks patient with history of end-stage renal disease on dialysis last session today. Does not make urine. Physical exam benign This is likely a episode of bipolar disorder, I do not suspect metabolic derangements. Will rule out electrolyte abnormalities although unlikely and will also rule out UTI. Unlikely stroke, posterior stroke. Plan plan medical clearance and evaluation by behavioral health team Differential Diagnosis Differential Diagnoses: The differential diagnosis associated with the pr esentation includes This is likely a episode of bipolar disorder, I do not suspect metabolic derangements. Will rule out electrolyte abnormalities although unlikely and will also rule out UTI. Admission/Observation Consideration of admission/observation: Escalation of care including admission/observation considered Lab Data [facility] Lab Attestation statement: I reviewed the patient's lab results. 08/22/22 16:10 08/22/22 16:10 Labs: Lab Results 08/22/22 08/22/22 08/22/22 Range/Units 16:10 16:10 16:10 WBC 3.9 L (4.8-10.8) X10*3/uL RBC 2.82 L (4.60-5.80) X10*6/uL Hgb 9.8 L (14.0-18.0) g/dl Hct 29.3 L (42.0-52.0) % MCV 103.9 H (80.0-98.0) fL MCH 34.8 H (27.0-33.0) pg MCHC 33.4 (31.0-36.0) g/dl RDW 13.7 (11.0-16.0) % Plt Count 113 L (160-400) X10*3/uL MPV 10.2 (9.4-12.4) fL Immature Gran % (Auto) 0.3 (0.0-0.4) % Neut % (Auto) 65.1 (45-73) % Lymph % (Auto) 17.7 L (20-40) % Day % (Auto) 15.4 H (2-11) % Eos % (Auto) 1.0 (0-4) % Baso % (Auto) 0.5 (0-2) % Lymph # (Auto) 0.7 L (1.2-4.9) X10*3/uL Day # (Auto) 0.6 (0.1-1.2) X10*3/uL Eos # (Auto) 0.0 (0.0-0.4) X10*3/uL Baso # (Auto) 0.0 (0.0-0.2) X10*3/uL Abs Immat Gran (auto) 0.01 (0.00-0.03) X10*3/uL Absolute Neuts (auto) 2.5 (2.0-8.3) x10*3/uL Absolute Nucleated RBC 0.000 (0.0-0.012) X10*3/uL Nucleated RBC % (auto) 0.0 (0.0-0.2) /100WBC Sodium 142 (135-145) mmol/L Potassium 4.2 (3.3-5.1) mmol/L Chloride 100 (96-108) mmol/L Carbon Dioxide 34 H (22-29) mmol/L Anion Gap 12 (12-20) BUN 20 H (9-16) mg/dL Creatinine 6.01 H* (0.5-1.4) mg/dL Estim Creat Clear Calc 13.4 Estimated GFR 9 Random Glucose 102 (60-115) mg/dL Calcium 9.5 (8.4-10.2) mg/dL Total Bilirubin 0.5 (0.0-1.0) mg/dL Direct Bilirubin 0.1 (0.0-0.5) mg/dL AST 13 (5-37) U/L ALT 9 (0-40) U/L Alkaline Phosphatase 43 (39-117) U/L Total Protein 6.1 L (6.5-8.0) g/dL Albumin 4.0 (3.5-5.0) g/dL Salicylates < 5.0 L (15-30) mg/dL Acetaminophen < 17 (<30) mcg/mL Ethyl Alcohol < 10 mg/dL COVID-19 ([facility]) Negative (Negative) COVID-19 Clin Com See Note Core Measures AMI core measures followed: Yes Measure exclusions: not indicated Critical Care Time Critical Care Time Critical Care Time: No Discharge Plan Discharge Clinical Impression: Bipolar disorder Patient Disposition: Still a Patient Prescriptions: No Action aspirin 81 mg Tablet,Delayed Release (Dr/Ec) 81 mg PO DAILY 30 Days Qty: 30 0RF thiothixene 5 mg capsule 15 mg PO DAILY 30 Days Qty: 90 0RF divalproex 500 mg tablet extended release 24 hr 1,000 mg PO BEDTIME 30 Days Qty: 60 0RF benztropine 1 mg tablet 2 mg PO BID 30 Days Qty: 120 0RF Auryxia 210 mg iron Tablet 210 mg PO TID Rx Instructions: administer with a meal Interventions: Brilliant-Suicide Risk Severity Scale Last Done: 08/22/22 16:00
[2022-08-22 15:16] VITALS: BP 148/78; PULSE 102; RESP 18; TEMP 37; O2SAT 95; BMI 27.7
[2022-08-22 16:16] LABS: MANUAL DIFF FLAG NO
[2022-08-22 16:18] LABS: Basophils Percent Auto 0.5 % (0-2); Hematocrit 29.3 % (42.0-52.0); Hemoglobin 9.8 g/dl (14.0-18.0); Imm Gran Abs Auto 0.01 X10*3/uL (0.00-0.03); Imm Gran Pct Auto 0.3 % (0.0-0.4); Lymphocytes Absolute Auto 0.7 X10*3/uL (1.2-4.9); Lymphocytes Percent Auto 17.7 % (20-40); Mean Corpuscular HGB Conc 33.4 g/dl (31.0-36.0); Mean Corpuscular Hemoglobin 34.8 pg (27.0-33.0); Mean Corpuscular Volume 103.9 fL (80.0-98.0); Mean Platelet Volume 10.2 fL (9.4-12.4); Monocytes Absolute Auto 0.6 X10*3/uL (0.1-1.2); Monocytes Percent Auto 15.4 % (2-11); Neutrophils Absolute Auto 2.5 x10*3/uL (2.0-8.3); Neutrophils Percent Auto 65.1 % (45-73); Platelet Count 113 X10*3/uL (160-400); Red Blood Count 2.82 X10*6/uL (4.60-5.80); Red Cell Distribution Width 13.7 % (11.0-16.0); White Blood Count 3.9 X10*3/uL (4.8-10.8)
[2022-08-22 16:53] LABS: COVID-19 Test Negative (Negative); IDNOW Serial# BCCEAD1C
[2022-08-22 17:38] LABS: Alanine Aminotransferase 9 U/L (0-40); Alkaline Phosphatase 43 U/L (39-117); Anion Gap 12 (12-20); Aspartate Amino Transferase 13 U/L (5-37); Bilirubin Direct 0.1 mg/dL (0.0-0.5); Bilirubin Total 0.5 mg/dL (0.0-1.0); Blood Urea Nitrogen 20 mg/dL (9-16); Calcium 9.5 mg/dL (8.4-10.2); Carbon Dioxide 34 mmol/L (22-29); Chloride 100 mmol/L (96-108); Creatinine Clr Calc Pharmacy 13.4; Estimated Glomerular Filt Rate 9; Ethanol < 10 mg/dL; Glucose Random 102 mg/dL (60-115); Potassium 4.2 mmol/L (3.3-5.1); Sodium 142 mmol/L (135-145); Total Protein 6.1 g/dL (6.5-8.0)
[2022-08-22 17:39] LABS: Acetaminophen LAB < 17 mcg/mL (<30); Salicylate < 5.0 mg/dL (15-30)
[2022-08-22 23:30] VITALS: BP 126/63; PULSE 96; RESP 18; TEMP 37; O2SAT 90
--- NOTE | 2022-08-23 02:05 | PC.ADMIT ---
PT is a 67 year old man with history of end stage renal failure ,HTN and hx of DVT He Is on dialysis and has fistula in left arm, He was admitted to S1 from the ER at 23:30 on 08/22/22 via wheelchair. PT is very selective with talking and was looking down at the floor during admission. He refused medications and appears some what unkept. He did say I was told I would only be here 2 to 3 days He ambulates independently and walked to the exit doors pushed on them to see if they would open than turned and said where is my room
[2022-08-23 06:00] VITALS: BP 190/87; PULSE 67; RESP 18; TEMP 37.5; O2SAT 95
[2022-08-23 08:21] LABS: MANUAL DIFF FLAG NO
[2022-08-23 08:24] LABS: Basophils Percent Auto 0.8 % (0-2); Eosinophils Percent Auto 1.1 % (0-4); Hematocrit 28.4 % (42.0-52.0); Hemoglobin 9.4 g/dl (14.0-18.0); Lymphocytes Absolute Auto 0.9 X10*3/uL (1.2-4.9); Lymphocytes Percent Auto 24.5 % (20-40); Mean Corpuscular HGB Conc 33.1 g/dl (31.0-36.0); Mean Corpuscular Hemoglobin 34.7 pg (27.0-33.0); Mean Corpuscular Volume 104.8 fL (80.0-98.0); Mean Platelet Volume 10.6 fL (9.4-12.4); Monocytes Absolute Auto 0.6 X10*3/uL (0.1-1.2); Monocytes Percent Auto 15.2 % (2-11); Neutrophils Absolute Auto 2.1 x10*3/uL (2.0-8.3); Neutrophils Percent Auto 58.4 % (45-73); Platelet Count 101 X10*3/uL (160-400); Red Blood Count 2.71 X10*6/uL (4.60-5.80); Red Cell Distribution Width 13.8 % (11.0-16.0); White Blood Count 3.6 X10*3/uL (4.8-10.8)
[2022-08-23 08:39] LABS: Valproate < 12.5 mcg/mL (50.0-100.0)
[2022-08-23 08:49] LABS: Alanine Aminotransferase 8 U/L (0-40); Albumin Level 3.8 g/dL (3.5-5.0); Alkaline Phosphatase 41 U/L (39-117); Anion Gap 18 (12-20); Aspartate Amino Transferase 11 U/L (5-37); Bilirubin Total 0.9 mg/dL (0.0-1.0); Blood Urea Nitrogen 29 mg/dL (9-16); Calcium 9.8 mg/dL (8.4-10.2); Carbon Dioxide 28 mmol/L (22-29); Chloride 103 mmol/L (96-108); Cholesterol 166 mg/dL; Creatinine Clr Calc Pharmacy 9.6; Estimated Glomerular Filt Rate 6; Glucose Fasting 87 mg/dL (60-99); HDL Cholesterol 32 mg/dL; LDL Cholesterol Calculated 110 mg/dl; Potassium 4.4 mmol/L (3.3-5.1); Sodium 145 mmol/L (135-145); Total Protein 5.8 g/dL (6.5-8.0); Triglycerides 122 mg/dL
[2022-08-23 09:16] LABS: Folate 17.9 ng/mL (> or = 4.0); Free T4 (Free Thyroxine) 1.06 ng/dL (0.71-1.85); Thyroid Stimulating Hormone 1.39 uIU/mL (0.32-4.0); Vitamin B12 495 pg/mL (200-900)
--- NOTE | 2022-08-23 10:03 | HO.PSYADMNOT ---
HPI Date of Service: 08/23/22 Chief Complaint: psychosis Sources of Information: patient interviewed, chart reviewed and crisis/core team assessment reviewed Additional Sources of Information: was interviewed HPI Subjective Notes: Strange Warning and Conditional Voluntary (By healthcare proxy) Healthcare Proxy: Yes Narrative: The patient is a 67-year-old male with a past history of schizoaffective disorder bipolar type, chronic renal failure on dialysis referred to the emergency room for exacerbation of depressive symptoms and disorganized behavior. According to the crisis assessment, the patient had been decompensating in the last week since he was noncompliant with olanzapine for several months. Crisis team reported paranoia, disorganized behavior, psychomotor retardation and remarkable slow thought process. Also, the patient was unable to take care of himself and he was refusing to have medical treatment such as dialysis. On admission, the patient was grossly disorganized, with poor eye contact, walking slowly with delayed response. His reported that he was admitted before at the psychiatric unit here last fall and was started on Zyprexa but he reported side effects so he stopped taking medications. According to his , he had been on compliant with Zyprexa the whole winter. The is the healthcare proxy and she agreed on the need of treatment. On interview, the patient was selectively mute, with very delayed responses, internally preoccupied unable to continue with the interview. He was disheveled with poor hygiene. Past Psychiatric History: Bipolar d/o ? psychosis . M 5 admissions and [facility] in [facility], No Op providers currently? First psychotic/manic break in early . 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 Substance History: Denies Trauma History: Deferred Diagnostics Vital Signs (24Hr): Vital Signs - 24 hr 08/22/22 15:16 08/22/22 23:30 08/23/22 06:00 Temperature 98.6 F 98.6 F 99.5 F Pulse Rate 102 H 96 67 Respiratory Rate 18 18 18 Blood Pressure 148/78 H 126/63 190/87 H Pulse Oximetry 95 90 L 95 Oxygen Delivery Method Room Air Room Air Room Air BMI result Body Mass Index 27.7 Labs 08/23/22 07:55 08/23/22 07:55 Labs: Laboratory Results - last 48 hr 08/22/22 08/22/22 08/22/22 16:10 16:10 16:10 WBC 3.9 L RBC 2.82 L Hgb 9.8 L Hct 29.3 L MCV 103.9 H MCH 34.8 H MCHC 33.4 RDW 13.7 Plt Count 113 L MPV 10.2 Immature Gran % (Auto) 0.3 Neut % (Auto) 65.1 Lymph % (Auto) 17.7 L Mcnairy % (Auto) 15.4 H Eos % (Auto) 1.0 Baso % (Auto) 0.5 Lymph # (Auto) 0.7 L Mcnairy # (Auto) 0.6 Eos # (Auto) 0.0 Baso # (Auto) 0.0 Abs Immat Gran (auto) 0.01 Absolute Neuts (auto) 2.5 Absolute Nucleated RBC 0.000 Nucleated RBC % (auto) 0.0 Sodium 142 Potassium 4.2 Chloride 100 Carbon Dioxide 34 H Anion Gap 12 BUN 20 H Creatinine 6.01 H* Estim Creat Clear Calc 13.4 Estimated GFR 9 Random Glucose 102 Fasting Glucose Calcium 9.5 Total Bilirubin 0.5 Direct Bilirubin 0.1 AST 13 ALT 9 Alkaline Phosphatase 43 Total Protein 6.1 L Albumin 4.0 Triglycerides Cholesterol LDL Cholesterol, Calc HDL Cholesterol Vitamin B12 Folate TSH Free T4 Salicylates < 5.0 L Acetaminophen < 17 Valproic Acid Ethyl Alcohol < 10 COVID-19 ([facility]) Negative COVID-19 Clin Com See Note 08/23/22 08/23/22 08/23/22 07:55 07:55 07:55 WBC 3.6 L RBC 2.71 L Hgb 9.4 L Hct 28.4 L MCV 104.8 H MCH 34.7 H MCHC 33.1 RDW 13.8 Plt Count 101 L MPV 10.6 Immature Gran % (Auto) 0.0 Neut % (Auto) 58.4 Lymph % (Auto) 24.5 Mcnairy % (Auto) 15.2 H Eos % (Auto) 1.1 Baso % (Auto) 0.8 Lymph # (Auto) 0.9 L Mcnairy # (Auto) 0.6 Eos # (Auto) 0.0 Baso # (Auto) 0.0 Abs Immat Gran (auto) 0.00 Absolute Neuts (auto) 2.1 Absolute Nucleated RBC 0.000 Nucleated RBC % (auto) 0.0 Sodium 145 Potassium 4.4 Chloride 103 Carbon Dioxide 28 Anion Gap 18 BUN 29 H Creatinine 8.37 H* Estim Creat Clear Calc 9.6 Estimated GFR 6 Random Glucose Fasting Glucose 87 Calcium 9.8 Total Bilirubin 0.9 Direct Bilirubin AST 11 ALT 8 Alkaline Phosphatase 41 Total Protein 5.8 L Albumin 3.8 Triglycerides 122 Cholesterol 166 LDL Cholesterol, Calc 110 HDL Cholesterol 32 Vitamin B12 495 Folate 17.9 TSH 1.39 Free T4 1.06 Salicylates Acetaminophen Valproic Acid < 12.5 L Ethyl Alcohol COVID-19 ([facility]) COVID-19 Clin Com Meds/Allergies Meds Home Medications Medication Instructions Recorded Confirmed Type ferric citrate 210 mg iron tablet 210 mg PO TID 08/22/22 08/22/22 History (Auryxia) olanzapine 15 mg tablet 15 mg PO BEDTIME 08/23/22 08/23/22 History Allergies Allergies Allergy/AdvReac Type Severity Reaction Status Date / Time No Known Allergies Allergy Mild NOT Verified 08/22/22 15:55 APPLICABLE Mental Status Exam Mental Status Exam Patient Appearance: Inappropriate and Unkempt Patient Orientation: Person Level of Consciousness: Disoriented and Lethargic Patient Behavior: Guarded, Posturing and Passive Mood Description: Blunted Affect Description: Withdrawn Patient Cognition Impaired: Yes Ability to Follow Directions: Fair Speech Pattern: Monotone Hallucinations: None Delusions: Paranoid Ideation and Ideas of Reference Thought Process: Illogical, Distracted and Slowed Thinking Thought Content: positive for Andrews, positive for Poverty of Content, positive for Thought Blocking and positive for Disorganized Judgement: Poor Assessment & Plan Assessment & Plan (1) Schizoaffective disorder, bipolar type: Status: Acute Code(s): F25.0 - Schizoaffective disorder, bipolar type (2) ESRD (end stage renal disease): Status: Acute Code(s): N18.6 - End stage renal disease (3) Dialysis patient: Status: Acute Code(s): Z99.2 - Dependence on renal dialysis Plan The patient is an elderly male with a past history of schizoaffective disorder bipolar type and end-stage renal disease on dialysis admitted for exacerbation of psychosis be catatonic symptoms due to noncompliance since his last admission. At this moment the patient is unable to take care of himself, he is grossly is impaired and we needed to activate his healthcare proxy. Plan 1. Gather more collateral information. 2. Continue with now vein as prescribed before. 3. Continue with medical workout with dialysis. 4. Healthcare proxy activated. 5. Dialysis as per protocol. 6. Reassessment with results. Patient educated on: therapeutic strategies Reason for continued inpatient stay Substantial Risk for: inability to function, rapid decompensation and med/psych decompensation Statement Statement: I have reviewed the history and physical and performed a pertinent examination on my patient. No changes have occurred unless specified. If the History and Physical was not performed prior to admission, the Hospitalist's service will be consulted for completing the admission physical. Time Spent With Patient Time: Total time managing care of this patient today _45___ minutes.
[2022-08-23 12:00] VITALS: BP 162/80
[2022-08-23 18:00] VITALS: BP 190/91; PULSE 64; RESP 18; TEMP 36.9; O2SAT 96
--- NOTE | 2022-08-24 10:04 | P.CONNP_ITS ---
History of Present Illness Reason for Consult Consult date: 08/24/22 Chief Complaint Chief complaint: psychosis History of Present Illness Narrative: 67-year-old male history of bipolar disorder and end-stage renal disease presented to the emergency department with with concerns for changes in behavior for the past 3 weeks.? At the time of the consultation he denies chest pain, shortness of breath, nausea, vomiting or diarrhea. His reports that at dialysis he feels as though they are stealing his blood, and he is having a hard time with decision making. Review of Systems Review of Systems 10 points ROS negative except form pertinent in HPI [facility] Past Medical History Medical History (Updated 08/24/22 @ 10:07 by Jered Conley MD) Anemia Anemia Bipolar disorder Dialysis patient Hypertension Social History Social History Household Members: Spouse Housing: House Do you presently have visiting nurse or other home services: No Alcohol intake: never Patient Tobacco Use Status: Never used Tobacco Second Hand Smoke Exposure: No Use of substances other than those prescribed or required for medical reasons: No Currently Displaying Signs/Symptoms of Drug Intoxication Withdrawal: No Have you been hit, kicked, punched, or otherwise hurt by someone within the past year? If so, by whom?: No Do you feel safe in your current relationship?: Yes Is there a partner from a previous relationship who is making you feel unsafe now?: No Are you made to feel afraid or neglected: No Spiritual Healthcare Practices: Yazidism Druze Healthcare Practices: none Cultural Healthcare Practices: none Advance Directives: No Advance Directives Information Provided: No Healthcare Proxy: Yes Guardian: No Do you have thoughts of harming others: None Do you have a plan to hurt others: No Plan Recently lost weight without trying: Unsure How much weight loss: Unsure Eating poorly because of decreased appetite: No Nutrition screen score: 4 Nutrition Risks: No Nutritional Risk Poor oral hygiene: No service: No Sexual orientation: Straight/Heterosexual Meds Allergies Allergy/AdvReac Type Severity Reaction Status Date / Time No Known Allergies Allergy Mild NOT Verified 08/22/22 15:55 APPLICABLE Active Medications: Current Medications Acetaminophen (Acetaminophen 325 Mg Tablet) 650 mg PO Q6H PRN PRN Reason: Headache/Pain Mild Scale (1-3) Al Hydroxide/Mg Hydroxide (Magnesium Hydrox/Alum Hydrox 30 Ml Oral.Susp) 30 ml PO Q6H PRN PRN Reason: Heartburn/Nausea Aspirin (Aspirin Enteric Coated 81 Mg Tablet.Dr) 81 mg PO DAILY [facility] Last Admin: 08/23/22 08:23 Dose: Not Given Benztropine Mesylate (Benztropine Mesylate 1 Mg Tablet) 1 mg PO BID [facility] Last Admin: 08/23/22 21:05 Dose: Not Given Divalproex Sodium (Divalproex Sodium Er 500 Mg Tab.Er.24h) 1,000 mg PO BEDTIME [facility] Last Admin: 08/23/22 21:06 Dose: Not Given Magnesium Hydroxide (Milk Of Magnesia 30 Ml Oral.Susp) 30 ml PO DAILY PRN PRN Reason: Constipation Non-Formulary Medication (Ferric Citrate [Auryxia]) 210 mg PO TID [facility] Pt Own (Thiothixene (5 Mg Capsule)) 15 mg PO DAILY [facility] Olanzapine (Olanzapine 7.5 Mg Tablet) 15 mg PO BEDTIME [facility] Last Admin: 08/23/22 21:06 Dose: Not Given Pharmacy Consult (Consult Rx Perform Med Rec) 1 each MISCELLANE ONCE PRN PRN Reason: Consult order Home Medications Medication Instructions Recorded Confirmed Last Taken Type ferric citrate 210 mg iron tablet 210 mg PO TID 08/22/22 08/22/22 08/22/22 History (Auryxia) olanzapine 15 mg tablet 15 mg PO BEDTIME 08/23/22 08/23/22 Unknown History Physical Exam Vital Signs: Last Vital Signs Temp 98.5 F 08/23/22 18:00 Pulse 64 08/23/22 18:00 Resp 18 08/23/22 18:00 BP 190/91 H 08/23/22 18:00 Pulse Ox 96 08/23/22 18:00 O2 Del Method Room Air 08/23/22 18:00 BMI result Body Mass Index 27.7 Const General: alert and awake HEENT Head: Yes normocephalic and Yes atraumatic Neck Neck: Yes supple Resp Auscultation: clear to auscultation bilaterally Cardio Heart sounds: S1 normal heart sound present and S2 normal heart sound present GI Palpation (GI): Soft to palpation and nontender Extrem General: No edema Results Lab Results 08/23/22 07:55 08/23/22 07:55 Lab results: Chemistry 08/22/22 08/23/22 16:10 07:55 Sodium 142 145 Potassium 4.2 4.4 Carbon Dioxide 34 H 28 BUN 20 H 29 H Creatinine 6.01 H* 8.37 H* Calcium 9.5 9.8 Hematology 08/22/22 08/23/22 16:10 07:55 WBC 3.9 L 3.6 L Hgb 9.8 L 9.4 L Plt Count 113 L 101 L Assessment and Plan (1) ESRD (end stage renal disease): Status: Acute (2) Bipolar disorder: Status: Acute (3) Anemia: Status: Acute Plan usually has HD at [facility] -- via [facility] patient with known h/o bipolar disease REC HD today optimize volume status renal diet phosphate binders ERIKA Time Spent With Patient Time: Total time managing care of this patient today ____ minutes. Procedures Date of Service Date of Service: 08/24/22
--- NOTE | 2022-08-24 10:09 | MHC.CLN ---
NUTRITION ESRD ON HEMODIALYSIS. DIET CHANGED PER DIALYSIS PARAMETERS: 2 GRAM SODIUM, LOW POTASSIUM, LOW PHOSPHORUS. RECENT POOR INTAKE NOTED.
[2022-08-24 11:54] VITALS: BP 195/94; PULSE 75; RESP 16; TEMP 36.3; O2SAT 95
--- NOTE | 2022-08-24 14:43 | HO.PSYCHPN ---
Subjective Subjective Date of Service: 08/24/22 Reason For Visit: psychosis Subjective Notes: Conditional Voluntary (By healthcare proxy) Healthcare Proxy: Yes Interim History: The nursing staff reported the patient has refused all his medications, he also refused to go to dialysis today. His healthcare proxy has been invoked. The social service agency director reported that apparently the patient is not a transplant list, lithium has causing end-stage renal disease. On interview the patient he refused to engage in conversation he looks severely confused. Mental Status Exam Mental Status Exam Patient Appearance: Disheveled and Unkempt Patient Orientation: Person Level of Consciousness: Disoriented and Restless Patient Behavior: Guarded and Passive Mood Description: Withdrawn Affect Description: Labile Patient Cognition Impaired: Yes Ability to Follow Directions: Poor Speech Pattern: Impoverished and Aphasic Hallucinations: Auditory Delusions: Paranoid Ideation Thought Process: Incoherent and Distracted Thought Content: positive for [place] and positive for Loose Associations Judgement: Poor Diagnostics Vital Signs (24Hr): Vital Signs - 24 hr 08/23/22 18:00 08/24/22 11:54 Temperature 98.5 F 97.3 F Pulse Rate 64 75 Respiratory Rate 18 16 Blood Pressure 190/91 H 195/94 H Pulse Oximetry 96 95 Oxygen Delivery Method Room Air Room Air BMI result Body Mass Index 27.7 Labs 08/23/22 07:55 08/23/22 07:55 Labs: Laboratory Results - last 48 hr 08/22/22 08/22/22 08/22/22 16:10 16:10 16:10 WBC 3.9 L RBC 2.82 L Hgb 9.8 L Hct 29.3 L MCV 103.9 H MCH 34.8 H MCHC 33.4 RDW 13.7 Plt Count 113 L MPV 10.2 Immature Gran % (Auto) 0.3 Neut % (Auto) 65.1 Lymph % (Auto) 17.7 L [place] % (Auto) 15.4 H Eos % (Auto) 1.0 Baso % (Auto) 0.5 Lymph # (Auto) 0.7 L [place] # (Auto) 0.6 Eos # (Auto) 0.0 Baso # (Auto) 0.0 Abs Immat Gran (auto) 0.01 Absolute Neuts (auto) 2.5 Absolute Nucleated RBC 0.000 Nucleated RBC % (auto) 0.0 Sodium 142 Potassium 4.2 Chloride 100 Carbon Dioxide 34 H Anion Gap 12 BUN 20 H Creatinine 6.01 H* Estim Creat Clear Calc 13.4 Estimated GFR 9 Random Glucose 102 Fasting Glucose Calcium 9.5 Total Bilirubin 0.5 Direct Bilirubin 0.1 AST 13 ALT 9 Alkaline Phosphatase 43 Total Protein 6.1 L Albumin 4.0 Triglycerides Cholesterol LDL Cholesterol, Calc HDL Cholesterol Vitamin B12 Folate TSH Free T4 Salicylates < 5.0 L Acetaminophen < 17 Valproic Acid Ethyl Alcohol < 10 COVID-19 ([facility]) Negative COVID-19 Clin Com See Note 08/23/22 08/23/22 08/23/22 07:55 07:55 07:55 WBC 3.6 L RBC 2.71 L Hgb 9.4 L Hct 28.4 L MCV 104.8 H MCH 34.7 H MCHC 33.1 RDW 13.8 Plt Count 101 L MPV 10.6 Immature Gran % (Auto) 0.0 Neut % (Auto) 58.4 Lymph % (Auto) 24.5 [place] % (Auto) 15.2 H Eos % (Auto) 1.1 Baso % (Auto) 0.8 Lymph # (Auto) 0.9 L [place] # (Auto) 0.6 Eos # (Auto) 0.0 Baso # (Auto) 0.0 Abs Immat Gran (auto) 0.00 Absolute Neuts (auto) 2.1 Absolute Nucleated RBC 0.000 Nucleated RBC % (auto) 0.0 Sodium 145 Potassium 4.4 Chloride 103 Carbon Dioxide 28 Anion Gap 18 BUN 29 H Creatinine 8.37 H* Estim Creat Clear Calc 9.6 Estimated GFR 6 Random Glucose Fasting Glucose 87 Calcium 9.8 Total Bilirubin 0.9 Direct Bilirubin AST 11 ALT 8 Alkaline Phosphatase 41 Total Protein 5.8 L Albumin 3.8 Triglycerides 122 Cholesterol 166 LDL Cholesterol, Calc 110 HDL Cholesterol 32 Vitamin B12 495 Folate 17.9 TSH 1.39 Free T4 1.06 Salicylates Acetaminophen Valproic Acid < 12.5 L Ethyl Alcohol COVID-19 ([facility]) COVID-19 Clin Com Medications Medications Current Medications Acetaminophen (Acetaminophen 325 Mg Tablet) 650 mg PO Q6H PRN PRN Reason: Headache/Pain Mild Scale (1-3) Al Hydroxide/Mg Hydroxide (Magnesium Hydrox/Alum Hydrox 30 Ml Oral.Susp) 30 ml PO Q6H PRN PRN Reason: Heartburn/Nausea Aspirin (Aspirin Enteric Coated 81 Mg Tablet.Dr) 81 mg PO DAILY [facility] Last Admin: 08/24/22 11:45 Dose: Not Given Benztropine Mesylate (Benztropine Mesylate 1 Mg Tablet) 1 mg PO BID [facility] Last Admin: 08/24/22 11:45 Dose: Not Given Divalproex Sodium (Divalproex Sodium Er 500 Mg Tab.Er.24h) 1,000 mg PO BEDTIME [facility] Last Admin: 08/23/22 21:06 Dose: Not Given Magnesium Hydroxide (Milk Of Magnesia 30 Ml Oral.Susp) 30 ml PO DAILY PRN PRN Reason: Constipation Non-Formulary Medication (Ferric Citrate [Auryxia]) 210 mg PO TID [facility] Pt Own (Thiothixene (5 Mg Capsule)) 15 mg PO DAILY [facility] Last Admin: 08/24/22 11:45 Dose: Not Given Olanzapine (Olanzapine 7.5 Mg Tablet) 15 mg PO BEDTIME [facility] Last Admin: 08/23/22 21:06 Dose: Not Given Pharmacy Consult (Consult Rx Perform Med Rec) 1 each MISCELLANE ONCE PRN PRN Reason: Consult order Allergies Allergies Allergy/AdvReac Type Severity Reaction Status Date / Time No Known Allergies Allergy Mild NOT Verified 08/22/22 15:55 APPLICABLE Assessment & Plan Assessment & Plan (1) ESRD (end stage renal disease): Status: Acute Code(s): N18.6 - End stage renal disease (2) Bipolar disorder: Status: Acute Code(s): F31.9 - Bipolar disorder, unspecified (3) Anemia: Status: Acute Code(s): D64.9 - Anemia, unspecified Plan usually has HD at [place] [facility] unit via [facility] patient with known h/o bipolar disease REC HD today optimize volume status renal diet phosphate binders ERIKA Plan 1. Gather collateral information. 2. Compliance will be reinforced. 3. We will follow with Medicine regarding his a ES RD Reason for continued inpatient stay Substantial Risk for: inability to function, rapid decompensation and med/psych decompensation Time Spent With Patient Time: Total time managing care of this patient today __20__ minutes.
[2022-08-24 21:39] VITALS: RESP 18
--- NOTE | 2022-08-24 23:21 | PC.NURSE ---
Assumed care for this patient at 08/24 at 2300. Pt had previously refused vitals and scheduled HS meds per received RN report. This play writer attempted to obtain vitals and discussed concerns for health and well-being, importance of meds given kidney function and refusing dialysis, known hypertension with prior med refusal. Patient assessed with flat affect, eyes open staring forward, would not provide verbal response, only shaking head side to side when asked if play writer could check vitals or give medications.
[2022-08-25 05:13] VITALS: BP 216/70; PULSE 73; RESP 18; TEMP 36.3; O2SAT 94
--- NOTE | 2022-08-25 05:20 | PC.NURSE ---
Pt was approached for vital signs, he was agreeable.He reminded the RN that left arm is not allowed for bp. VS: BP 216/70 . Offered bp meds, refused. MD Prince notified. No new orders given.
[2022-08-25 07:00] VITALS: BMI 27.2
[2022-08-25 08:09] VITALS: BP 190/91; PULSE 68; RESP 18; O2SAT 96
--- NOTE | 2022-08-25 16:02 | P.DS_ITS ---
DS: Providers Provider Date of Service: 08/25/22 Date of admission: 08/22/22 23:04 Date of discharge: 08/25/22 Primary care physician: CARLOS Pretty Admitting clinician: Hunter Fernandez Consults: 08/22/22 23:33 Consult to Nephrology Routine Consulting Provider: Bradley Pena Reason for consultation: dialysis/ confusion Has provider been notified: No DS: Diagnosis Discharge Diagnosis (1) ESRD (end stage renal disease): Status: Acute (2) Bipolar disorder: Status: Acute (3) Anemia: Status: Acute DS: Medications Discharge Medications Home Medications: Home Medications Medication Instructions Recorded Confirmed ferric citrate 210 mg iron tablet 210 mg PO TID 08/22/22 08/22/22 (Auryxia) olanzapine 15 mg tablet 15 mg PO BEDTIME 08/23/22 08/23/22 Previous Rx's Medication Instructions Recorded aspirin 81 mg tablet,delayed 81 mg PO DAILY 30 days #30 tabs 03/18/22 release benztropine 1 mg tablet 2 mg PO BID 30 days #120 tabs 03/18/22 divalproex 500 mg tablet,extended 1,000 mg PO BEDTIME 30 days #60 03/18/22 release 24 hr tabs thiothixene 5 mg capsule 15 mg PO DAILY 30 days #90 caps 03/18/22 Mental Status Exam Mental Status Exam Patient Appearance: Disheveled and Unkempt Patient Orientation: Person Level of Consciousness: Disoriented and Lethargic Patient Behavior: Guarded Mood Description: Blunted Affect Description: Labile Patient Cognition Impaired: Yes Ability to Follow Directions: Good Speech Pattern: Clear Hallucinations: None Delusions: Grandiose and Bizarre Thought Process: Illogical and Linear Thought Content: positive for [place] and positive for Thought Blocking Judgement: Poor Data Data Completed and Pending Completed studies during hospitalization [Text1]: 08/22/22 08/22/22 08/22/22 16:10 16:10 16:10 WBC 3.9 L RBC 2.82 L Hgb 9.8 L Hct 29.3 L MCV 103.9 H MCH 34.8 H MCHC 33.4 RDW 13.7 Plt Count 113 L MPV 10.2 Immature Gran % (Auto) 0.3 Neut % (Auto) 65.1 Lymph % (Auto) 17.7 L [place] % (Auto) 15.4 H Eos % (Auto) 1.0 Baso % (Auto) 0.5 Lymph # (Auto) 0.7 L [place] # (Auto) 0.6 Eos # (Auto) 0.0 Baso # (Auto) 0.0 Abs Immat Gran (auto) 0.01 Absolute Neuts (auto) 2.5 Absolute Nucleated RBC 0.000 Nucleated RBC % (auto) 0.0 Sodium 142 Potassium 4.2 Chloride 100 Carbon Dioxide 34 H Anion Gap 12 BUN 20 H Creatinine 6.01 H* Estim Creat Clear Calc 13.4 Estimated GFR 9 Random Glucose 102 Fasting Glucose Calcium 9.5 Total Bilirubin 0.5 Direct Bilirubin 0.1 AST 13 ALT 9 Alkaline Phosphatase 43 Total Protein 6.1 L Albumin 4.0 Triglycerides Cholesterol LDL Cholesterol, Calc HDL Cholesterol Vitamin B12 Folate TSH Free T4 Salicylates < 5.0 L Acetaminophen < 17 Valproic Acid Ethyl Alcohol < 10 COVID-19 ([facility]) Negative COVID-19 Clin Com See Note 08/23/22 08/23/22 08/23/22 07:55 07:55 07:55 WBC 3.6 L RBC 2.71 L Hgb 9.4 L Hct 28.4 L MCV 104.8 H MCH 34.7 H MCHC 33.1 RDW 13.8 Plt Count 101 L MPV 10.6 Immature Gran % (Auto) 0.0 Neut % (Auto) 58.4 Lymph % (Auto) 24.5 [place] % (Auto) 15.2 H Eos % (Auto) 1.1 Baso % (Auto) 0.8 Lymph # (Auto) 0.9 L [place] # (Auto) 0.6 Eos # (Auto) 0.0 Baso # (Auto) 0.0 Abs Immat Gran (auto) 0.00 Absolute Neuts (auto) 2.1 Absolute Nucleated RBC 0.000 Nucleated RBC % (auto) 0.0 Sodium 145 Potassium 4.4 Chloride 103 Carbon Dioxide 28 Anion Gap 18 BUN 29 H Creatinine 8.37 H* Estim Creat Clear Calc 9.6 Estimated GFR 6 Random Glucose Fasting Glucose 87 Calcium 9.8 Total Bilirubin 0.9 Direct Bilirubin AST 11 ALT 8 Alkaline Phosphatase 41 Total Protein 5.8 L Albumin 3.8 Triglycerides 122 Cholesterol 166 LDL Cholesterol, Calc 110 HDL Cholesterol 32 Vitamin B12 495 Folate 17.9 TSH 1.39 Free T4 1.06 Salicylates Acetaminophen Valproic Acid < 12.5 L Ethyl Alcohol COVID-19 ([facility]) COVID-19 Clin Com DS: Summary Hospital Course Hospital Course: The patient is an elderly male with a history of bipolar disorder and end-stage renal disease admitted for exacerbation of psychosis and noncompliance of his medications. Please see the HPI note for further details. On admission the patient refused to take medications, going to dialysis or collaborate with vital signs, he was in a nearly catatonic state. The patient signed himself on a conditional voluntary on admission but later on we invoked his healthcare proxy and his co-sign his conditional voluntary. We will start the process of affirmation of the healthcare proxy court pretty soon. The case was discussed at length with the cardiopulmonary technologist chief, chief of Psychiatry and hospitalist and since the patient had being refusing to do his dialysis he will be transfer to Medicine for further stabilization. Time spent discussing smoking cessation with patient: 3 to 10 minutes Status at Discharge Cognitive/behavioral status at discharge: Impaired at this moment Functional status at discharge: independent ambulation Overall status at discharge: patient is not back to baseline Time Spent with Patient Time attestation: Total time managing care of this patient today __30__ minutes. Time spent: Greater than 30 minutes Discharge Plan Discharge Anticipated Discharge Date/Time: 08/25/22 16:13 Patient Disposition: Xfer Acute Care Hospital Discharge Diagnosis: Schizoaffective disorder bipolar type End-stage renal disease on dialysis Referrals: Brooke Meza PA [Primary Care Provider] - 1 Week Discharge Medications: New benztropine 1 mg Tablet 1 mg PO BID 30 Days Qty: 60 0RF ferric citrate 210 mg iron Tablet 210 mg PO TID Qty: 90 0RF Continued aspirin 81 mg Tablet,Delayed Release (Dr/Ec) 81 mg PO DAILY 30 Days Qty: 30 0RF thiothixene 5 mg capsule 15 mg PO DAILY 30 Days Qty: 90 0RF divalproex 500 mg tablet extended release 24 hr 1,000 mg PO BEDTIME 30 Days Qty: 60 0RF olanzapine 15 mg tablet 15 mg PO BEDTIME 30 Days Qty: 30 0RF Discontinued benztropine 1 mg tablet 2 mg PO BID 30 Days Qty: 120 0RF Auryxia 210 mg iron Tablet 210 mg PO TID Rx Instructions: administer with a meal Discharge Orders: Discharge Order (Routine); Ordered 08/25/22 Ordered By: Hunter Fernandez Diet: Advance to usual diet Activity on Discharge: As tolerated Stand Alone Forms: Patient Portal Discharge page Care Plan Goals: Transferred to Medicine Health Concerns: Transferred to Medicine Plan of Treatment: Continue with his medical treatment. We will follow while he is Medicine Assessment: Elderly male with a long history of schizoaffective disorder bipolar type, end-stage renal disease admitted for exacerbation of psychosis and noncompliant with medical and psychiatric treatment. At this moment the patient will be transferred to Medicine for medical stabilization.
== END 2022-08-25 17:06 | disposition short-term general hospital (02) | DRG 885 ==
LOC: HO.ED 16:55 → HO.PGERI 23:16
PROVIDERS: Nurse Practitioner Family; Admitting Provider Psychiatry & Neurology Psychiatry; Emergency Provider Internal Medicine; PCP Physician Assistant; Visit Provider Psychiatry & Neurology Psychiatry
DX: F25.0 Schizoaffective disorder, bipolar type (principal); N18.6 End stage renal disease; I12.0 Hypertensive chronic kidney disease with stage 5 chronic kidney disease or end stage renal disease; D64.9 Anemia, unspecified; D63.1 Anemia in chronic kidney disease; Z91.148 Patient's other noncompliance with medication regimen for other reason; Z99.2 Dependence on renal dialysis; Z79.82 Long term (current) use of aspirin; Z20.822 Contact with and (suspected) exposure to COVID-19; Z79.899 Other long term (current) drug therapy
CPT/HCPCS: 36415; 80048; 80053; 80061; 80076; 80143; 80164; 80179; 80307; 82607; 82746; 84439; 84443; 85025; 87635; 90999; 93005; 99285

== ENCOUNTER 2022-08-25 17:32 | Inpatient (IN) | payer MEDICARE, SELFPAY ==
--- NOTE | 2022-08-25 17:38 | P.HPHOSP_ITS ---
History of Present Illness Date of Service: 08/25/22 Attending physician on admission: Joe Correa Chief Complaint: Missed dialysis Pt is a 67-year-old male with a PMH significant for?schizoaffective disorder bipolar type, ESRD on HD M/W/F who is admitted to the medical floor for missed dialysis. Patient is a transfer from [facility] after he began refusing dialysis. Patient was originally admitted to Psychiatry from the emergency room on 08/23/2022 for exacerbation of depressive symptoms and disorganized behavior. Patient was admitted to [facility] where he was noted to be grossly disorganized, with poor eye contact, ambulating slowly, and having significantly delayed response. On 08/24/2022 patient refused all of his medications and refused to go to dialysis. Patient's is his healthcare proxy and she was then invoked and expressed her interest in having the patient continue with dialysis. During interview pt denies any medical complaints. Patient partly cooperative with interview and examination, though he refuses to participate in some questions and commands. Patient states that he refused dialysis because he ?wants to wait,? but will not elaborate any further than that. Labs on 08/23/2022 were significant for stable H&H of 9.4/28.4, MCV of 104.8, BUN of 29, creatinine of 8.37, and valproic acid undetectable. Pt will be admitted to the medical floor for further treatment and management of missed dialysis. Review of Systems Review of Systems: Patient has no acute complaints at this time Yes all other systems are reviewed and are negative [facility] Medical History Anemia Anemia Bipolar disorder Dialysis patient Hypertension Social History Household Members: Spouse Housing: House Do you presently have visiting nurse or other home services: No Alcohol intake: never Patient Tobacco Use Status: Never used Tobacco Second Hand Smoke Exposure: No service: No Sexual orientation: Straight/Heterosexual Meds Allergies Allergy/AdvReac Type Severity Reaction Status Date / Time No Known Allergies Allergy Mild NOT Verified 08/22/22 15:55 APPLICABLE Active Medications: Current Medications Acetaminophen (Acetaminophen 325 Mg Tablet) 650 mg PO Q6H PRN PRN Reason: Pain, Mild (Pain Scale 1-3) Aspirin (Aspirin 81 Mg Tab.Chew) 81 mg PO DAILY [facility]ON Benztropine Mesylate (Benztropine Mesylate 1 Mg Tablet) 1 mg PO BID [facility] Divalproex Sodium (Divalproex Sodium Er 500 Mg Tab.Er.24h) 1,000 mg PO BEDTIME [facility] Docusate Sodium (Docusate Sodium 100 Mg Capsule) 100 mg PO DAILY PRN PRN Reason: Constipation Ferrous Sulfate (Ferrous Sulfate 300 Mg/5 Ml Liquid) 300 mg PO TIDWM DEVON Heparin Sodium (Porcine) (Heparin Sodium,Porcine 5,000 Unit/Ml Vial) 5,000 unit SUBCUT Q12H DEVON Olanzapine (Olanzapine 7.5 Mg Tablet) 15 mg PO BEDTIME [facility] Ondansetron HCl (Ondansetron Hcl 4 Mg/2 Ml Vial) 4 mg IVPUSH Q8H PRN PRN Reason: Nausea and Vomiting Sodium Chloride (0.9 % Sodium Chloride Flush 3 Ml Syringe) 3 ml IVFLUSH QSHIFT DEVON Sodium Chloride (0.9 % Sodium Chloride Flush 3 Ml Syringe) 3 ml IVFLUSH QSHIFT DEVON Physical Exam Vital Signs and Narrative: Constitutional: Alert, patient seen lying in bed with eyes closed, answers questions appropriately with delayed response, not fully cooperative with interview or exam, in no acute distress. Mental Status: Oriented to person and time, but not fully to place or situation. Eyes: Patient refused to open his eyes. Ear, Nose, and Throat: Patient refused to open his mouth for examination. Ears and nose without deformities. Trachea midline. Respiratory: Clear to auscultation bilaterally. No wheezing, rales, or rhonchi. Cardiovascular: S1, S2 regular. No murmurs, rubs, or gallops. Gastrointestinal: Abdomen soft, non-tender, non-distended. Normal bowel sounds. Neurologic: Cranial nerves II-XII are grossly intact bilaterally. No focal neurological deficits noted. Moves all extremities spontaneously. Musculoskeletal: No cyanosis or clubbing. Extremities: Patient with compression stockings on. No edema noted Psychiatric: Confused, calm, partly cooperative with interview and examination. Assessment and Plan (1) Schizoaffective disorder, bipolar type: Status: Acute (2) ESRD (end stage renal disease): Status: Acute (3) Dialysis patient: Status: Acute Plan Pt is a 67-year-old male with a PMH significant for?schizoaffective disorder bipolar type, ESRD on HD M/W/F who is admitted to the medical floor for missed dialysis. Patient is a transfer from [facility] psych after he began refusing dialysis, and Schizoaffective disorder bipolar type Patient is a transfer from [facility] psych Unit where he was admitted on 06/24/2019 for increasing depression and disorganized behavior Continue divalproex, olanzapine, thiothixene, benztropine ESKD on HD M/W/ Will offer dialysis tomorrow morning Nephrology consult Check BMP, phosphorus Full Code Attending:?Dr. Correa DVT Prophylaxis: Lovenox Pt will require a hospitalization of at least two nights for treatment of?missed dialysis. Time Spent With Patient Time: Total time managing care of this patient today ____ minutes. Quality Stroke Does the patient have a stroke diagnosis?: No VTE Prior VTE?: No VTE Risk Level:: Medical - moderate - high VTE Device Contraindication: Treatment Not Indicated VTE Drug Contraindication: N/A - Med Ordered
--- NOTE | 2022-08-25 17:39 | PHA.MEDREC ---
Pharmacy Consult ? Medication Reconciliation Pharmacy has completed the medication reconciliation. Med rec complete based on claim history and recent discharge summary from earlier today.
--- OUTSIDE RECORDS SUMMARY | 2022-08-25 17:52 | XMS_ITS | Continuity of Care Document ---
Author Name Unknown Organization [facility] Address [address] [place] [address]- Care Team Providers Care Geospatial Information Technologist Name Role Phone Brooke Morales Primary Care Physician Encounter [facility] [facility] Date(s): 04/19/22 - 05/19/22 [facility] [address] [place] [address]- Attending Physician: Chris Ohara Admitting Physician: Chris Ohara Referring Physician: AdmtrChris Allergies, Adverse Reactions, Alerts No Known Medication Allergies Immunizations Given and Recorded Vaccine Date Status Refusal Reason SARS-CoV-2 (COVID-19) mRNA-1273 vaccine 06/24/20 R ecorded SARS-CoV-2 (COVID-19) mRNA-1273 vaccine 05/13/20 R ecorded Medications aspirin 81 mg oral tablet 1 tablet = 81 mg, By Mouth, Daily, 0 Refills, Maintenance, 06/07/19 8:09:00 EST Start Date: 06/07/19 Status: Ordered benztropine 1 mg oral tablet 2 mg, 2, tablet, By Mouth, 2 times a day, Refills 0, Maintenance, 10/29/19 6:21:00 EDT Start Date: 10/29/19 Status: Ordered Compression Stockings See Instructions, # 1 pair, Maintenance, surgical, calf length 30-40 mm Hg, 06/11/14 8:35:06, Compound Start Date: 06/11/14 Status: Ordered Divalproex Sodium ER Tablet = 1,000 mg, By Mouth, Daily at bedtime, 0 Refills, Maintenance, 03/30/20 13:58:00 EST, Partial fillupon patient request if the prescription is for a schedule II opioid drug. Start Date: 03/30/20 Status: Ordered docusate sodium 100 mg oral capsule 100 mg, 1, capsule, By Mouth, 2 times a day, PRN, # 10 capsule, Refills 0, Tot. Refills 0, Maintenance, for constipation, 06/11/20 15:57:00 EST, Route to Pharmacy Electronically, [id number], Partial fill upon patient request if the prescriptio... Start Date: 06/11/20 Stop Date: 06/16/20 Status: Ordered Fish Oil = 1,400 mg, By Mouth, Daily, 0 Refills, Maintenance, 06/11/14 8:00:47 EDT Start Date: 06/11/14 Status: Ordered Olanzapine = 10 mg, Daily at bedtime, 0 Refills, Maintenance, 06/09/20 15:18:00 EST, Partial fill upon patientrequest if the prescription is for a schedule II opioid drug. Start Date: 06/09/20 Status: Ordered red yeast rice 600 mg oral capsule 2 capsule = 1,200 mg, By Mouth, Daily, 0 Refills, Maintenance, 06/11/14 7:59:45 Start Date: 06/11/14 Status: Ordered Sevelamer HCL Tablet 800 mg, By Mouth, 3 times a day, Refills 0, Maintenance, 03/18/20 8:52:00 EST, Partial fill upon patient request if the prescription is for a schedule II opioid drug. Start Date: 03/18/20 Status: Ordered thiothixene 5 mg oral capsule 3 capsule = 15 mg, By Mouth, Daily, 0 Refills, Maintenance, 06/11/14 7:58:14 EDT Start Date: 06/11/14 Status: Ordered Triphrocaps oral capsule 1 capsule, By Mouth, Daily, 0 Refills, Maintenance, 06/09/20 15:19:00 EST, Partial fill upon patient request if the prescription is for a schedule II opioid drug. Start Date: 06/09/20 Status: Ordered Vitamin D3 50,000 intl units oral capsule 1 capsule = 50,000 International_Units, By Mouth, Every 7 days, # 12 capsule, 0 Refills, Maintenance, 06/09/20 15:16:00 EST, Capsule, Partial fill upon patient request if the prescription is for a schedule II opioid drug. Start Date: 06/09/20 Status: Ordered Problem List Condition Confirmation Course Effective Dates Status Health St atus Informant DVT (deep venous thrombosis) Confirmed Active ESRD on hemodialysis Confirmed Active Hypertension Confirmed Active Obese class I Confirmed Active Social History Social History Type Response Smoking Status Never (less than 100 in lifetime) entered on: 06/07/19 Sex Male Patient Care team information Care Team Personnel Name: Ad Ewing MD Position: [facility] Physician (General Medicine) Member Role: Lifetime Consulting Physician Address: Address: [address] [place] [address], [address] [place] [address]- Name: Cammie Conley RN Position: [facility] RN Member Role: Primary Care Nurse Name: Brooke Morales Position: [facility] Outreach Member Role: PCP Address: Address: [address] [place] [address] [facility] [place] [address]- Name: Manoj Brunson MD Position: [facility] Renal MD Member Role: Lifetime Consulting Physician Address: Address: [address] [place] [address] [address] [facility], [place] [address]- Care Team Related Persons Name: LEONID HERZOG Address: home [address] [place] [id number]
--- OUTSIDE RECORDS SUMMARY | 2022-08-25 17:52 | XMS_ITS | Continuity of Care Document ---
Author Name Unknown Organization [facility] Address [address] [place] [address]- Care Team Providers Care Dictaphone Typist Name Role Phone Brooke Morales Primary Care Physician Encounter [facility] ACCT R [id number] Date(s): 08/11/20 - 09/10/20 [facility] [address] [place], [place] [address] Attending Physician: Chris Ohara Admitting Physician: Chris [...] 06/11/20 15:57:00 EST, Route to Pharmacy Electronically, [id number], Partial fill upon patient request [...] List Condition Effective Dates Status Health Status Inform ant DVT (deep venous thrombosis)(Confirmed) Active ESRD on hemodialysis(Confirmed) Active Hypertension(Confirmed) Active Social History Social History Type Response Smoking Status Never (less than 100 in lifetime) entered on: 06/07/19 Sex
--- OUTSIDE RECORDS SUMMARY | 2022-08-25 17:52 | XMS_ITS | Continuity of Care Document ---
Author Name Unknown Organization [facility] ter Address [address] [place] [address]- Care Team Providers Care Cheese Cook Name Role Phone Brooke Morales Primary Care Physician Encounter [facility] Date(s): 01/01/20 - 01/03/[address] [address]- [facility] Discharge Disposition: A-D/C Home Attending Physician: Clare Moss MD Admitting Physician: Pratibha Conley MD Referring Physician: Pratibha Conley MD Allergies, Adverse Reactions, Alerts No Known Medication Allergies Medications aspirin 81 mg oral tablet 1 tablet = 81 mg, By Mouth, Daily, 0 Refills, Maintenance, 06/07/19 8:09:00 EST Start Date: 06/07/19 Status: Ordered benztropine 1 mg oral tablet 1 mg, 1, tablet, By Mouth, 4 times a day, Refills 0, Maintenance, 10/29/19 6:21:00 EDT Start Date: 10/29/19 Status: Ordered Compression Stockings See Instructions, # 1 pair, Maintenance, surgical, calf length 30-40 mm Hg, 06/11/14 8:35:06, Compound Start Date: 06/11/14 Status: Ordered divalproex sodium 500 mg oral enteric coated tablet 1 tablet = 500 mg, By Mouth, 2 times a day, 0 Refills, Maintenance, 06/11/14 7:58:25 EDT Start Date: 06/11/14 Status: Ordered Fish Oil By Mouth, 0 Refills, Maintenance, 06/11/14 8:00:47 Start Date: 06/11/14 Status: Ordered metoprolol 25 mg oral tablet 25 mg, 1, tablet, By Mouth, 2 times a day, # 60 tablet, Refills 0, Maintenance, 10/29/19 7:18:00 EDT Start Date: 10/29/19 Status: Ordered Norvasc 5 mg oral tablet 10 mg, 2, tablet, By Mouth, Daily, # 60 tablet, Refills 0, Tot. Refills 0, Maintenance, 01/03/20 17:22:00 EDT, Route to Pharmacy Electronically, [id number], 183, cm, 01/03/20 16:41:00 EDT, Height, 113.6, kg, 01/01/20 18:45:00 EDT, Dry Weight Start Date: 01/03/20 Status: Ordered paricalcitol 1 mcg oral capsule 1 capsule = 1 mcg, By Mouth, 3 times a day, 0 Refills, Maintenance, 10/29/19 7:21:00 EDT Start Date: 10/29/19 Status: Ordered red yeast rice 600 mg oral capsule 2 capsule = 1,200 mg, By Mouth, Daily, 0 Refills, Maintenance, 06/11/14 7:59:45 Start Date: 06/11/14 Status: Ordered sodium bicarbonate 650 mg oral tablet 1 tablet = 650 mg, By Mouth, 2 times a day, 0 Refills, Maintenance, 01/01/20 10:35:00 EDT Start Date: 01/01/20 Status: Ordered thiothixene 5 mg oral capsule 1 capsule = 5 mg, By Mouth, 3 times a day, 0 Refills, Maintenance, 06/11/14 7:58:14 EDT Start Date: 06/11/14 Status: Ordered Problem List Condition Effective Dates Status Health Status Inform ant DVT (deep venous thrombosis)(Confirmed) Active ESRD on hemodialysis(Confirmed) Active Hypertension(Confirmed) Active Procedures Procedure Date Related Diagnosis Body Site Status AV - Arteriovenous fistula Completed Fistulogram Completed Vital Signs Most recent to oldest [Reference Range]: 1 2 3 Height 183 cm (01/03/20 4:00 PM) 183 cm (01/03/20 1:06 PM) 183 cm (01/03/20 11:45 AM) Weight 116.3 kg (01/01/20 6:45 PM) 106.2 kg (01/01/20 10:09 AM) Oxygen Saturation [94-100 %] 96 % (01/03/20 4:00 PM) 99 % (01/03/20 1:06 PM) 99 % (01/03/20 11:45 AM) Pulse Rate [55-90 bpm] 53 bpm *L* (01/03/20 4:00 PM) 62 bpm (01/03/20 1:06 PM) 68 bpm (01/03/20 11:45 AM) Body Mass Index [18.5-24.99] 34.73 *>HHI* (01/01/20 6:45 PM) Blood Pressure [90-138/55-84 mm Hg] 118/76mm Hg (01/03/20 4:00 PM) 148/83mm Hg *H* (01/03/20 1:06 PM) 162/103mm Hg *H* (01/03/20 11:45 AM) Respiratory Rate [16-30 br/min] 18 br/min (01/03/20 4:00 PM) 18 br/min (01/03/20 1:06 PM) 18 br/min (01/03/20 11:45 AM) Temperature [96.8-100.4 DegF] 98.4 DegF (01/03/20 4:00 PM) 98.6 DegF (01/03/20 11:45 AM) 98.3 DegF (01/03/20 4:31 AM) Mode of Delivery (Oxygen) Room air (01/03/20 4:00 PM) Room air (01/03/20 1:06 PM) Room air (01/03/20 11:45 AM) Blood pressure sites Arm, right (01/03/20 4:00 PM) Arm, right (01/03/20 1:06 PM) Arm, right (01/03/20 11:45 AM) Temperature Route Oral (01/03/20 4:00 PM) Oral (01/03/20 11:45 AM) Oral (01/03/20 4:31 AM) Dry Weight 113.6 kg (01/01/20 6:45 PM) 106.2 kg (01/01/20 10:09 AM) Weight Obtained Via Bed scale (01/01/20 6:45 PM) Dry Weight Obtained Via Bed scale (01/01/20 6:45 PM) Social History Social History Type Response Smoking Status Never (less than 100 in lifetime) entered on: 06/07/19 Sex
--- OUTSIDE RECORDS SUMMARY | 2022-08-25 17:52 | XMS_ITS | Continuity of Care Document ---
Author Name Unknown Organization [facility] Address [address] [place] [address]- Care Team Providers Care Companion Name Role Phone Brooke Morales Primary Care Physician [place] [facility] Date(s): 12/22/20 - 01/21/[address] [address]- Allergies, Adverse Reactions, Alerts No Known Medication [...] 06/11/20 15:57:00 EST, Route to Pharmacy Electronically, [facility] #[id number], Partial fill upon patient request [...]
--- OUTSIDE RECORDS SUMMARY | 2022-08-25 17:52 | XMS_ITS | Continuity of Care Document ---
Author Name Unknown Organization [facility] Address [address] [place] [address]- Care Team Providers Care Carpet Mechanic Name Role Phone Brooke Morales Primary Care Physician Encounter [facility] Date(s): 12/24/19 - 01/23/20 [facility] [address] [place] [address]- [facility] Attending Physician: Chris Ohara Admitting Physician: Chris Ohara Referring Physician: AdmChris atkins Allergies, Adverse Reactions, Alerts No Known Medication [...]
--- OUTSIDE RECORDS SUMMARY | 2022-08-25 17:52 | XMS_ITS | Continuity of Care Document ---
Author Name Unknown Organization [facility] Address [address] [place] [address]- Care Team Providers Care Molding Fitter Name Role Phone Brooke Morales Primary Care Physician [place] [facility] [place](s[place] 10/28/19 - 11/27/19 [facility] [address] [place] [address]- [facility] Allergies, Adverse Reactions, Alerts No Known Medication [...] Status: Ordered Norvasc 5 mg oral tablet 5 mg, 1, tablet, By Mouth, Daily, # 30 tablet, Refills 0, Maintenance, 10/29/19 6:26:00 EDT Start Date: 10/29/19 Status: Ordered paricalcitol 1 mcg oral capsule 1 capsule = 1 mcg, By Mouth, 3 times a day, 0 Refills, Maintenance, 10/29/19 7:21:00 EDT Start Date: 10/29/19 Status: Ordered red yeast rice 600 mg oral capsule 2 capsule = 1,200 mg, By Mouth, Daily, 0 Refills, Maintenance, 06/11/14 7:59:45 Start Date: 06/11/14 Status: Ordered thiothixene 5 mg oral capsule 1 capsule = 5 mg, By Mouth, 3 times a day, 0 Refills, Maintenance, 06/11/14 7:58:14 EDT Start Date: 06/11/14 Status: Ordered Problem List Condition Effective Dates Status Health Status Inform ant DVT (deep venous thrombosis)(Confirmed) Active Social History Social History Type Response Smoking Status Never (less than 100 in lifetime) entered on: 06/07/19 Sex
--- OUTSIDE RECORDS SUMMARY | 2022-08-25 17:52 | XMS_ITS | CCD ---
Author Name Unknown Address [address] [place] [id number] Organization Unknown Address [address] [place] [id number] Care Team Providers Care Front Of House Manager Name Role Phone LILY HUERTA Attending Physician [phone] Vijaya PRONI Deal Registered Nurse [phone] ESTHER Levy Registered Nurse [phone] Vital Signs Vital Sign Value Unit Date/Time Recent/Initial ? BMI (Body Mass Index) 30.92 kg/m^2 03/04/2022 00: 25 Initial VS Weight Measured 228 lbs 03/04/2022 00:25 Ini tial VS Height 72 in 03/04/2022 00:25 Initial VS BSA (Body Surface Area) 2.29 m^2 03/04/2022 0 0:25 Initial VS BP Systolic 163 mmHg 03/04/2022 00:25 Initial VS BP Diastolic 100 mmHg 03/04/2022 00:25 Initia l VS Respiratory Rate 20 bpm 03/04/2022 00:25 In itial VS Heart Rate 78 bpm 03/04/2022 00:25 Initial VS O2 % BldC Oximetry 100 % 03/04/2022 00:25 Initial VS Body Temperature 35.4 degrees 03/04/2022 00:25 In itial VS Respiratory Rate 18 bpm 03/04/2022 07:[address] Recent VS Heart Rate 80 bpm 03/04/2022 07:55 Most Rec ent VS O2 % BldC Oximetry 100 % 03/04/2022 07:55 Most Recent VS Allergies Allergy Code Allergy Type Reaction Status No Known Drug Allergies 0 No known drug allergies Active Procedures Unknown or Not Available. History of Immunizations Unknown or Not Available. Problems Problem Code Start Date Resolved Date Status Tremor [id number] 03/04/2022 Resolved Bipolar disorder [id number] 03/04/2022 Resolved Renal dialysis [id number] 03/04/2022 Resolved Results GLUCOSE FINGER/HEEL CAPILLAR Y - Collect Date/Time: 03/04/2022 00:37 Test Name Code Test Result Test Units Test Ref Rang e GLUCOSE CAP 91 mg/dL L=70 H=116 Active Medications Unknown or Not Available. Medications Administered During Visit Medication Dose Units Frequency Route Date/Time of Last Dose BENZTROPINE TABLET: 1MG 2 MG X1 PO 03/04/2022 03:[address] TABLET: 500MG 1000 MG X1 PO 03/04/2022 03:28 ASPIRIN TABLET CHEWABLE: 81MG 81 MG X1 CHEW 03/04/2022 03:18 Encounters Encounter Diagnosis Diagnosis Code Start Date Encounter for general psychi atric examination, requested by authority Z046 03/04/2022 Social History Unknown or Not Available. Patient Decision Aids Unknown or Not Available. Discharge Instructions You were admitted to [facility] on 03/04/2022 00:16 with a principal diagnosis of Encounter for general psychiatric examination, requested by authority You had the following tests done:GLUCOSE FINGER/HEEL CAPILLARY You were discharged from [facility] on 03/04/2022 08:00 Should you have any questions prior to discharge, please contact a member of your healthcare team. If you have left the hospital and have any questions, please contact your primary care physician. Chief Complaint and Reason For Visit Chief Complaint Date of Onset HAS BEEN OFF MEDS AND NEEDS TO BE CHECK OUT Function Status Unknown or Not Available. Plan of Care Unknown or Not Available. Referral/Transition of Care Unknown or Not Available.
--- OUTSIDE RECORDS SUMMARY | 2022-08-25 17:53 | XMS_ITS | Continuity of Care Document ---
Author Name Unknown Organization [facility] Address [address] [place] [address]- Care Team Providers Care Hat Lining Blocker Name Role Phone Brooke Morales Primary Care Physician Encounter [facility] Date(s): 01/13/22 - 02/12/22 [facility] [address] [place] [address]- Attending Physician: Chris Ohara Admitting Physician: AdmChris atkins Referring Physician: AdmtrChris Allergies, Adverse Reactions, Alerts [...] 06/11/20 15:57:00 EST, Route to Pharmacy Electronically, [id number], Partial fill upon patient request [...] Team Personnel Name: Ad Ewing MD Position: [facility] Physician (General Medicine) Member Role: Lifetime Consulting Physician Address: Address: [address] [place] [address], [address] [place] [address]- Name: Cammie Conley RN Position: [facility] RN Member Role: Primary Care Nurse Name: Brooke Morales Position: [facility] Outreach Member Role: PCP Address: Address: [address] [place] [address] [place] [address]- Name: Manoj Brunson MD Position: [facility] Renal MD Member Role: Lifetime Consulting Physician Address: Address: [address] [place] [address] [address] [facility] [place] [address]- Care Team Related Persons Name: LEONID HERZOG Address: home [address] [place] [address]
--- OUTSIDE RECORDS SUMMARY | 2022-08-25 17:53 | XMS_ITS | Continuity of Care Document ---
Author Name Unknown Organization [facility] Address [address] [place] [address]- Care Team Providers Care Fraternity Adviser Name Role Phone Brooke Morales Primary Care Physician Encounter [facility] ACCT R [id number] Date(s): 05/20/20 - 06/19/20 [facility] [address] [facility] [address] [place], [place] [address] Attending Physician: Chris Ohara Admitting Physician: Chris [...] 06/11/20 15:57:00 EST, Route to Pharmacy Electronically, [id number], Partial fill upon patient request [...]
--- OUTSIDE RECORDS SUMMARY | 2022-08-25 17:53 | XMS_ITS | Continuity of Care Document ---
Author Name Unknown Organization [facility] Address [address] [place] [address]- Care Team Providers Care Organic Extractions Technician Name Role Phone Brooke Morales Primary Care Physician Encounter [facility] Date(s): 06/29/20 - 07/29/20 [facility] [address] [place] [address]- Allergies, Adverse Reactions, Alerts No Known Medication [...] 06/11/20 15:57:00 EST, Route to Pharmacy Electronically, [id number], Partial fill upon patient request [...]
--- OUTSIDE RECORDS SUMMARY | 2022-08-25 17:53 | XMS_ITS | Continuity of Care Document ---
Author Name Unknown Organization [facility] Address [address] [place] [address]- Care Team Providers Care Easement Worker Name Role Phone Brooke Morales Primary Care Physician Encounter [facility] Date(s): 11/13/19 - 01/30/20 [facility] [address] [place] [address]- [facility] Attending Physician: Jose Lopez MD Admitting Physician: Jose Lopez MD Referring Physician: Brooke Morales Allergies, Adverse Reactions, Alerts No Known Medication [...]
--- OUTSIDE RECORDS SUMMARY | 2022-08-25 17:53 | XMS_ITS | Continuity of Care Document ---
Author Name Unknown Organization [facility] Address [address] [place] [address]- Care Team Providers Care Pulp Mill Team Leader Name Role Phone Brooke Morales Primary Care Physician Encounter [facility] Date(s): 07/30/20 - 08/29/20 [facility] [address] [place] [address]- Allergies, Adverse Reactions, Alerts No Known Medication [...] 06/11/20 15:57:00 EST, Route to Pharmacy Electronically, [facility] #[id number], Partial fill upon patient request [...]
--- OUTSIDE RECORDS SUMMARY | 2022-08-25 17:53 | XMS_ITS | Continuity of Care Document ---
Author Name Unknown Organization [facility] Address [address] [place] [address]- Care Team Providers Care Employment And Claims Aide Name Role Phone Brooke Morales Primary Care Physician [place] [facility] [place] 09/25/20 - 11/05/20 [facility] [address] [place], [place] [address] Attending Physician: Damion Nogueira MD Admitting Physician: Damion Nogueira MD Allergies, Adverse Reactions, Alerts No Known [...] 06/11/20 15:57:00 EST, Route to Pharmacy Electronically, [id number], Partial fill upon patient request [...]
--- OUTSIDE RECORDS SUMMARY | 2022-08-25 17:53 | XMS_ITS | Continuity of Care Document ---
Author Name Unknown Organization [facility] Address [address] [place] [address]- Care Team Providers Care Boxing Machine Operator Name Role Phone Brooke Morales Primary Care Physician Encounter [facility] Date(s): 01/30/20 - 02/06/20 [facility] [address] [place], [place] [address] Attending Physician: Shima Candelaria NP Admitting Physician: Shima Candelaria NP Allergies, Adverse Reactions, Alerts No Known Medication [...] Active ESRD on hemodialysis(Confirmed) Active Hypertension(Confirmed) Active Vital Signs Most recent to oldest [Reference Range]: 1 Height 183 cm (01/30/20 8:20 AM) Weight 107.0 kg (01/30/20 8:20 AM) Pulse Rate [55-90 bpm] 74 bpm (01/30/20 8:20 AM) Body Mass Index [18.5-24.99] 31.95 *>HHI* (01/30/20 8:20 AM) Blood Pressure [90-138/55-84 mm Hg] 128/ 80mm Hg (01/30/20 8:20 AM) Blood pressure sites Arm, right (01/30/20 8:20 AM) Weight Obtained Via Patient/family state d (01/30/20 8:20 AM) Social History Social History Type Response Smoking Status Never (less than 100 in lifetime) entered on: 06/07/19 Sex
--- OUTSIDE RECORDS SUMMARY | 2022-08-25 17:53 | XMS_ITS | Continuity of Care Document ---
Author Name Unknown Organization [facility] Address [address] [place] [address]- Care Team Providers Care Test Boring Crew Chief Name Role Phone Brooke Morales Primary [facility] Phys[id number] Date[facility]11[facility] - 04/10/[address] [address]- Allergies, Adverse Reactions, Alerts No Known Medication [...]
--- OUTSIDE RECORDS SUMMARY | 2022-08-25 17:53 | XMS_ITS | Continuity of Care Document ---
Author Name Unknown Organization [facility] Address [address] [place] [address]- Care Team Providers Care Lead Cashier Name Role Phone Brooke Morales Primary Care Physician En[place] [facility] Date(s): 12/31/19 - 01/30/20 [facility] [address] [place] [address]- [facility] Allergies, Adverse Reactions, Alerts No [...]
--- OUTSIDE RECORDS SUMMARY | 2022-08-25 17:53 | XMS_ITS | Continuity of Care Document ---
Author Name Unknown Organization [facility] Address [address] [place] [address]- Care Team Providers Care Fitness/Wellness Director Name Role Phone Brooke Morales Primary Care Physician Encounter [facility] Date(s): 12/24/19 - 12/31/19 [facility] [address] [place] [address]- [facility] Attending Physician: Not on Staff, Attending MD Referring Physician: Bradley Pena MD Allergies, [...] Inform ant DVT (deep venous thrombosis)(Confirmed) Active Vital Signs Most recent to oldest [Reference Range]: 1 Height 183 cm (12/24/19 10:27 AM) Weight 108.0 kg (12/24/19 10:27 AM) Pulse Rate [55-90 bpm] 68 bpm (12/24/19 10:27 AM) Body Mass Index [18.5-24.99] 32.25 *>HHI* (12/24/19 10:27 AM) Blood Pressure [90-138/55-84 mm Hg] 150/ 98mm Hg *H* (12/24/19 10:27 AM) Blood pressure sites Arm, right (12/24/19 10:27 AM) Weight Obtained Via Patient/family state d (12/24/19 10:27 AM) Social History Social History Type Response Smoking Status Never (less than 100 in lifetime) entered on: 06/07/19 Sex
--- OUTSIDE RECORDS SUMMARY | 2022-08-25 17:53 | XMS_ITS | Continuity of Care Document ---
Author Name Unknown Organization [facility] Address [address] [place] [address]- Care Team Providers Care Sports Physiologist Name Role Phone Brooke Morales Primary Care Physician [id number] 04/24/20 - 05/01/20 [facility] [address] [place] [address]- Attending Physician: Bari ROBLES, Shima Dunaway Admitting Physician: Bari ROBLES, Shima Dunaway Referring Physician: Brooke Morales Allergies, Adverse Reactions, [...] opioid drug. Start Date: 03/30/20 Status: Ordered Fish Oil = 1,400 mg, By Mouth, Daily, 0 Refills, Maintenance, 06/11/14 8:00:47 EDT Start Date: 06/11/14 Status: Ordered metoprolol 25 mg oral tablet 25 mg, 1, tablet, By Mouth, 2 times a day, # 60 tablet, Refills 0, Maintenance, 10/29/19 7:18:00 EDT Start Date: 10/29/19 Status: Ordered Norvasc 5 mg oral tablet 10 mg, 2, tablet, By Mouth, Daily, # 60 tablet, Refills 0, Tot. Refills 0, Maintenance, 01/03/20 17:22:00 EDT, Route to Pharmacy Electronically, [id number], 183, cm, 01/03/20 16:41:00 EDT, Height, 113.6, kg, 01/01/20 18:45:00 EDT, Dry Weight Start Date: 01/03/20 Status: Ordered red yeast rice 600 mg [...] capsule, By Mouth, Daily, 0 Refills, Maintenance, 03/30/20 14:01:00 EST, Partial fill upon patient request if the prescription is for a schedule II opioid drug. Start Date: 03/30/20 Status: Ordered Problem List Condition Effective Dates Status Health Status Inform ant DVT (deep venous thrombosis)(Confirmed) Active ESRD on hemodialysis(Confirmed) Active Hypertension(Confirmed) Active Vital Signs Most recent to oldest [Reference Range]: 1 Height 185.4 cm (04/24/20 2:45 PM) Weight 101.9 kg (04/24/20 2:45 PM) Oxygen Saturation [94-100 %] 96 % (04/24/20 2:45 PM) Pulse Rate [55-90 bpm] 65 bpm (04/24/20 2:45 PM) Body Mass Index [18.5-24.99] 29.65 *H* (04/24/20 2:45 PM) Blood Pressure [90-138/55-84 mm Hg] 86/5 8mm Hg *L* (04/24/20 2:45 PM) Blood pressure sites Arm, right (04/24/20 2:45 PM) Weight Obtained Via Patient/family state d (04/24/20 2:45 PM) Social History Social History Type Response Smoking Status Never (less than 100 in lifetime) entered on: 06/07/19 Sex
--- OUTSIDE RECORDS SUMMARY | 2022-08-25 17:53 | XMS_ITS | Continuity of Care Document ---
Author Name Unknown Organization [facility] Address [address] [place] [address]- Care Team Providers Care Cutter Head Sharpener Name Role Phone Brooke Morales Primary [facility] Phys[id number]/18[facility]20 - 03/25/20 [facility] [address] [place] [address]- Attending Physician: Jose Lopez MD Admitting Physician: [...] Date: 06/11/14 Status: Ordered Sevelamer HCL Tablet By Mouth, 3 times a day, Refills 0, Maintenance, 03/18/20 8:52:00 EST, Partial fill upon patient request if the prescription is for a schedule II opioid drug. Start Date: 03/18/20 Status: Ordered sodium bicarbonate 650 mg oral [...] oldest [Reference Range]: 1 Height 183 cm (03/18/20 8:49 AM) Weight 103 kg (03/18/20 8:49 AM) Pulse Rate [55-90 bpm] 71 bpm (03/18/20 8:49 AM) Body Mass Index [18.5-24.99] 30.76 *>HHI* (03/18/20 8:49 AM) Blood Pressure [90-138/55-84 mm Hg] 126/ 72mm Hg (03/18/20 8:49 AM) Blood pressure sites Arm, right (03/18/20 8:49 AM) Social History Social History Type Response Smoking Status Never (less than 100 in lifetime) entered on: 06/07/19 Sex
--- OUTSIDE RECORDS SUMMARY | 2022-08-25 17:53 | XMS_ITS | Continuity of Care Document ---
Author Name Unknown Organization [facility] Address [address] [place] [address]- Care Team Providers Care Line Servicer Name Role Phone Brooke Morales Primary Care Physician En[facility] Date(s): 09/24/20 - 11/07/20 [facility] [address] [place], [place] [address] Attending Physician: Damion Nogueira MD Admitting [...] 06/11/20 15:57:00 EST, Route to Pharmacy Electronically, [facility] #[id number], Partial fill upon patient request [...]
--- OUTSIDE RECORDS SUMMARY | 2022-08-25 17:53 | XMS_ITS | Continuity of Care Document ---
Author Name Unknown Organization [facility] ter Address [address] [place] [address]- Care Team Providers Care Horse Race Starter Name Role Phone Brooke Morales Primary Care Physician [place] [facility] [place] - 10/29/[address] [address]- [facility] Discharge Disposition: A-D/C Home Attending Physician: Jose Lopez MD Admitting Physician: [...] 6:26:00 EDT Start Date: 10/29/19 Status: Ordered oxyCODONE 5 mg oral tablet 5 mg, 1, tablet, By Mouth, Every 6 hours, PRN, for 2 days, # 8 tablet, Refills 0, Tot. Refills 0, Acute 10/31/19 9:40:00 EDT, as needed for pain, 10/29/19 9:40:00 EDT, Route to Pharmacy Electronically, [id number], Partial fill upon patient req... Start Date: 10/29/19 Stop Date: 10/31/19 Status: Ordered paricalcitol 1 mcg oral capsule [...] to oldest [Reference Range]: 1 2 3 Oxygen Saturation [94-100 %] 100 % (10/29/19 11:00 AM) 100 % (10/29/19 10:45 AM) 91 % *L* (10/29/19 10:35 AM) Blood Pressure [90-138/55-84 mm Hg] 174/94mm Hg *H* (10/29/19 11:00 AM) 140/111mm Hg *H* (10/29/19 10:45 AM) 133/111mm Hg (10/29/19 10:35 AM) Respiratory Rate [16-30 br/min] 14 br/min *L* (10/29/19 11:00 AM) 13 br/min *L* (10/29/19 10:45 AM) 19 br/min (10/29/19 10:35 AM) Temperature [96.8-100.4 DegF] 97.2 DegF (10/29/19 9:21 AM) 97.6 DegF (10/29/19 6:30 AM) Mode of Delivery (Oxygen) Room air (10/29/19 11:00 AM) Room air (10/29/19 10:45 AM) Room air (10/29/19 10:35 AM) Blood pressure sites Leg, right (10/29/19 9:21 AM) Temperature Route Temporal (10/29/19 9:21 AM) Temporal (10/29/19 6:30 AM) Social History Social History Type Response Smoking Status Never (less than 100 in lifetime) entered on: 06/07/19 Sex
--- OUTSIDE RECORDS SUMMARY | 2022-08-25 17:53 | XMS_ITS | Continuity of Care Document ---
Author Name Unknown Organization [facility] Address [address] [place] [address]- Care Team Providers Care Habitat Biologist Name Role Phone Brooke Morales Primary Care Physician En[place] [facility] [place] Date(s): 11/07/19 - 12/07/19 [facility] [address] [place] [address]- [facility] Allergies, Adverse Reactions, Alerts No Known Medication [...]
--- OUTSIDE RECORDS SUMMARY | 2022-08-25 17:53 | XMS_ITS | Continuity of Care Document ---
Author Name Unknown Organization [facility] Address [address] [place] [address]- Care Team Providers Care Visual Arts Teacher Name Role Phone Brooke Morales Primary Care Physician [place] [facility] [place]11[place] - 12/11/19 [facility] [address] [place] [address]- [facility] Allergies, Adverse Reactions, Alerts [...]
--- OUTSIDE RECORDS SUMMARY | 2022-08-25 17:53 | XMS_ITS | Continuity of Care Document ---
Author Name Unknown Organization [facility] Address [address] [place] [address]- Care Team Providers Care Auto Travel Counselor Name Role Phone Mendoza Hawley MD Primary Care Physician [phone] [id number] - 06/15/[facility] [address] [place] [address]- [facility] Attending Physician: Chris Ohara Admitting Physician: Chris Ohara Referring Physician: AdmtrChris Allergies, Adverse Reactions, Alerts No Known Medication Allergies Medications amlodipine 5 mg oral tablet 1 tablet = 5 mg, By Mouth, Daily, 0 Refills, Maintenance, 06/11/14 7:59:19 Start Date: 06/11/14 Status: Ordered aspirin 81 mg oral tablet 1 tablet = 81 mg, By Mouth, Daily, 0 Refills, Maintenance, 06/07/19 8:09:00 EST Start Date: 06/07/19 Status: Ordered benztropine 2 mg oral tablet 1 tablet = 2 mg, By Mouth, 2 times a day, 0 Refills, Maintenance, 06/11/14 7:59:08 Start Date: 06/11/14 Status: Ordered Compression Stockings See Instructions, # 1 pair, Maintenance, surgical, calf length 30-40 mm Hg, 06/11/14 8:35:06, Compound Start Date: 06/11/14 Status: Ordered divalproex sodium 500 mg oral enteric coated tablet 1 tablet = 500 mg, By Mouth, 3 times a day, 0 Refills, Maintenance, 06/11/14 7:58:25 Start Date: 06/11/14 Status: Ordered ferrous fumarate 325 mg oral tablet 1 tablet = 325 mg, By Mouth, Daily, 0 Refills, Maintenance, 06/07/19 8:11:00 EST Start Date: 06/07/19 Status: Ordered Fish Oil By Mouth, 0 Refills, Maintenance, 06/11/14 8:00:47 Start Date: 06/11/14 Status: Ordered red yeast rice 600 mg [...]
--- OUTSIDE RECORDS SUMMARY | 2022-08-25 17:53 | XMS_ITS | Continuity of Care Document ---
Author Name Unknown Organization [facility] ter Address [address] [place] [address]- Care Team Providers Care Accounting Auditor Name Role Phone Brooke Morales Primary Care Physician [place] [facility] [place] [id number] Date(s): 06/11/20 - 06/11/[address] [address]- Discharge Disposition: A-D/C Home Attending Physician: Jose [...] 06/11/20 15:57:00 EST, Route to Pharmacy Electronically, [facility] #[id number], Partial fill upon patient request [...] opioid drug. Start Date: 06/09/20 Status: Ordered oxyCODONE 5 mg oral tablet 5 mg, 1, tablet, By Mouth, Every 6 hours, PRN, for 2 days, # 8 tablet, Refills 0, Tot. Refills 0, Acute 06/13/20 15:57:00 EST, as needed for pain, 06/11/20 15:57:00 EST, Route to Pharmacy Electronically, [facility] #[id number], Partial fill upon patient r... Start Date: 06/11/20 Stop Date: 06/13/20 Status: Ordered Percocet-5 Tablet 1 tablet, Tablet, By Mouth, Every 4 hours, in PACU ONLY, PRN for Pain , Mild, if patient can tolerate po, Routine, 06/11/20 13:17:00 EST Start Date: 06/11/20 Stop Date: 06/11/20 Status: Discontinued red yeast rice 600 mg oral capsule [...] oldest [Reference Range]: 1 2 3 Height 182 cm (06/11/20 11:07 AM) Weight 101.2 kg (06/11/20 11:07 AM) Oxygen Saturation [94-100 %] 98 % (06/11/20 6:15 PM) 98 % (06/11/20 6:00 PM) 98 % (06/11/20 5:45 PM) Pulse Rate [55-90 bpm] 73 bpm (06/11/20 11:07 AM) Body Mass Index [18.5-24.99] 30.55 *>HHI* (06/11/20 11:07 AM) Blood Pressure [90-138/55-84 mm Hg] 127/77mm Hg (06/11/20 6:15 PM) 114/73mm Hg (06/11/20 6:00 PM) 107/59mm Hg (06/11/20 5:45 PM) Respiratory Rate [16-30 br/min] 12 br/min *L* (06/11/20 6:15 PM) 21 br/min (06/11/20 6:05 PM) 11 br/min *L* (06/11/20 5:45 PM) Temperature [96.8-100.4 DegF] 97 DegF (06/11/20 6:15 PM) 96.8 DegF (06/11/20 3:00 PM) 97.5 DegF (06/11/20 11:07 AM) Liters per Minute 6 L/min (06/11/20 3:00 PM) Mode of Delivery (Oxygen) Room air (06/11/20 6:15 PM) Room air (06/11/20 6:00 PM) Simple face mask (06/11/20 3:00 PM) Blood pressure sites Arm, right (06/11/20 6:15 PM) Arm, right (06/11/20 6:00 PM) Arm, right (06/11/20 5:45 PM) Temperature Route Temporal (06/11/20 6:15 PM) Temporal (06/11/20 3:00 PM) Temporal (06/11/20 11:07 AM) Weight Obtained Via Standing scale (06/11/20 11:07 AM) Social History Social History Type Response Smoking Status Never (less than 100 in lifetime) entered on: 06/07/19 Sex
--- OUTSIDE RECORDS SUMMARY | 2022-08-25 17:53 | XMS_ITS | Continuity of Care Document ---
Author Name Unknown Organization [facility] ter Address [address] [place] [address]- Care Team Providers Care Dialysis Social Worker Name Role Phone Mendoza Hawley MD Primary Care Physician [place] [facility] [place] Date(s[place] 03/21/19 - 03/21/[address] [address]- [facility] Attending Physician: Bradley Pena MD Allergies, Adverse Reactions, Alerts No Known Medication Allergies Medications amlodipine 5 mg oral tablet 1 tablet = 5 mg, By Mouth, Daily, 0 Refills, Maintenance, 06/11/14 7:59:19 Start Date: 06/11/14 Status: Ordered benztropine 2 mg oral tablet 1 tablet = 2 mg, By Mouth, 2 times a day, 0 Refills, Maintenance, 06/11/14 7:59:08 Start Date: 06/11/14 Status: Ordered Compression Stockings See Instructions, # 1 pair, Maintenance, surgical, calf length 30-40 mm Hg, 06/11/14 8:35:06, Compound Start Date: 06/11/14 Status: Ordered Coumadin 10 mg oral tablet 1 tablet = 10 mg, By Mouth, Daily, # 5 tablet, 0 Refills, Maintenance, 11/21/13 14:31:28 Start Date: 11/21/13 Stop Date: 11/26/13 Status: Ordered divalproex sodium 500 mg oral enteric coated tablet 1 tablet = 500 mg, By Mouth, 3 times a day, 0 Refills, Maintenance, 06/11/14 7:58:25 Start Date: 06/11/14 Status: Ordered Fish Oil By Mouth, 0 Refills, Maintenance, 06/11/14 8:00:47 Start Date: 06/11/14 Status: Ordered metoprolol 25 mg oral tablet 1 tablet = 25 mg, By Mouth, 2 times a day, 0 Refills, Maintenance, 06/11/14 7:59:31 Start Date: 06/11/14 Status: Ordered red yeast [...]
--- OUTSIDE RECORDS SUMMARY | 2022-08-25 17:53 | XMS_ITS | Continuity of Care Document ---
Author Name Unknown Organization [facility] Address [address] [place] [address]- Care Team Providers Care Senior Programmer Name Role Phone Brooke Morales Primary Care Physician En[place] [facility] [place] Date(s): 06/09/20 - 07/09/20 [facility] [address] [place] [address]- Allergies, Adverse Reactions, Alerts No Known Medication [...] 06/11/20 15:57:00 EST, Route to Pharmacy Electronically, [facility] #[id number], Partial fill upon patient request [...]
--- OUTSIDE RECORDS SUMMARY | 2022-08-25 17:53 | XMS_ITS | Continuity of Care Document ---
Author Name Unknown Organization [facility] Address [address] [place] [address]- Care Team Providers Care Customs Broker Name Role Phone Brooke Morales Primary Care Physician [place] [facility] [place](s): 11/13/19 - 11/20/19 [facility] [address] [place] [address]- [facility] Attending Physician: Bari ROBLES, Shima Dunaway Admitting Physician: Bari ROBLES, Shima Dunaway Referring Physician: Mendoza Hawley MD Allergies, Adverse Reactions, Alerts No Known [...]
--- OUTSIDE RECORDS SUMMARY | 2022-08-25 17:53 | XMS_ITS | Continuity of Care Document ---
Author Name Unknown Organization [facility] Address [address] [place] [address]- Care Team Providers Care Assembler Steam And Gas Turbine Name Role Phone Brooke Morales Primary Care Physician Encounter [facility] [place] [facility]CT [place] [id number] Date(s): 11/13/19 - 01/29/20 [facility] [address] [place] [address]- [facility] Attending Physician: Jose Lopez MD Admitting Physician: [...]
--- OUTSIDE RECORDS SUMMARY | 2022-08-25 17:53 | XMS_ITS | Continuity of Care Document ---
Author Name Unknown Organization [facility] Address [address] [place] [address]- Care Team Providers Care Manager Floor Name Role Phone Brooke Morales Primary Care Physician Encounter [facility] [place] Date(s): 12/23/19 - 01/24/20 [facility] [address] [place] [address]- [facility] Attending Physician: Jose Lopez MD [...]
--- OUTSIDE RECORDS SUMMARY | 2022-08-25 17:53 | XMS_ITS | Continuity of Care Document ---
Author Name Unknown Organization [facility] Address [address] [place] [address]- Care Team Providers Care Groundhand Name Role Phone Brooke Morales Primary Care Physician [place] [facility] [place] [id number] Date(s): 06/02/20 - 07/02/20 [facility] [address] [place], [place] [address] Attending Physician: Chris Ohara Admitting Physician: Chris [...] 06/11/20 15:57:00 EST, Route to Pharmacy Electronically, [id number], Partial fill upon patient request [...]
--- OUTSIDE RECORDS SUMMARY | 2022-08-25 17:53 | XMS_ITS | Continuity of Care Document ---
Author Name Unknown Organization [facility] Address [address] [place] [address]- Care Team Providers Care Nurses Director Name Role Phone Brooke Morales Primary Care Physician [place] [facility] [place] [id number] Date(s): 10/06/20 - 11/05/20 [facility] [address] [place], [place] [address] Attending Physician: Chris Ohara Admitting Physician: [...] 06/11/20 15:57:00 EST, Route to Pharmacy Electronically, [facility] #[id number], Partial fill upon patient request [...]
--- OUTSIDE RECORDS SUMMARY | 2022-08-25 17:53 | XMS_ITS | Continuity of Care Document ---
Author Name Unknown Organization [facility] Address [address] [place] [address]- Care Team Providers Care Chute Puller Name Role Phone Mendoza Hawley MD Primary Care Physician En[facility] [id number] Date(s): 06/07/19 - 06/17/19 [facility] [address] [place] [address]- [facility] Attending Physician: Chris Ohara Admitting [...]
--- OUTSIDE RECORDS SUMMARY | 2022-08-25 17:53 | XMS_ITS | Continuity of Care Document ---
Author Name Unknown Organization [facility] Address [address] [place] [address]- Care Team Providers Care Cut In Worker Name Role Phone Brooke Morales Primary Care Physician En[place] [facility] [place] Date(s): 01/06/20 - 02/05/20 [facility] [address] [place] [address]- [facility] Allergies, Adverse Reactions, Alerts No Known Medication [...]
[2022-08-25 18:37] VITALS: BP 169/100; PULSE 68; RESP 18; TEMP 36; O2SAT 95
[2022-08-25 19:45] VITALS: BP 182/99; PULSE 66; RESP 18; TEMP 35.8; O2SAT 96
[2022-08-26 04:00] VITALS: TEMP -17.7; TEMP 0
--- NOTE | 2022-08-26 08:53 | MHC.CM.PN ---
Addendum entered by Xin Guerrero RN 08/26/22 09:42: PATIENT ASKED FOR RING BACK RING GIVEN PATIENT PLACED IT ON HIS FINGER UNIT AND RN AWARE Original Note: PATIENT BRINGS HIS [place] RING TO COUNTER ASKS THIS CHOCOLATE FINISHER OPERATOR TO GIVE IT TO MY AND TELL HER I LOVE HER WHEN T/W ASKED IF PATIENT FEELS SAFE, HE DOES NOT REPLY. PATIENT THEN ASKED FOR HIS RING BACK. RING GIVEN. T/W WALKED WITH PATIENT TO ROOM WHEN ASKED IF PATIENT IS FEELING SAFE ON THE UNIT HE DOES NOT REPLY. WHEN ASKED IF PATIENT IS WANTING TO HARM HIMSELF, HE DOES NOT REPLY. CAMERA IN ROOM. PATIENT GIVEN DENTURES CUP WITH NAME IN IT FOR THE RING. PATIENT ASKED IS THIS FOR THE RING? T/W AGREED. SHORTLY AFTER, PATIENT CAME TO UNIT AND ASKED THIS CHOCOLATE FINISHER OPERATOR TO GIVE THE RING TO HIS AND TELL HER THAT HE LOVES HER. RING PLACED IN ENVELOPE IN FRONT OF STAFF AND PLACED IN CHART. CALL TO LEONID @ [phone] MESSAGE LEFT FOR A CALL BACK. ANTHONY MADE AWARE. RN AWARE.
[2022-08-26 11:00] VITALS: BMI 28.7
--- NOTE | 2022-08-26 11:15 | MHC.CLN ---
NUTRITION CHANGED DIET PER DIALYSIS PARAMETERS: 2 GRAM SODIUM, LOW POTASSIUM, LOW PHOSPHORUS. PATIENT DID NOT EAT BREAKFAST THIS MORNING AND DID NOT ACCEPT DIALYSIS. FOLLOW FOR INTAKE, DIALYSIS, AND LABS. SEE CLINICAL NUTRITION ASSESSMENT 08/26/22.
[2022-08-26] MEDS: LORazepam 2 MG/ML VIAL 1 MG IM (12:42)
[2022-08-26] MEDS: Haloperidol Lactate 5 MG/ML VIAL IM (12:43)
--- NOTE | 2022-08-26 14:01 | MHC.CM.PN ---
CALL FROM , LEONID JAQUEZ IS AWARE OF PATIENT'S MEDICARE RIGHTS. IMM TO REMAIN IN ROOM WITH PATIENT COPY TO BE PLACED IN CHART. PLAN IS FOR HD TODAY. CASE MANAGEMENT FOLLOWING FOR DC NEEDS.
--- NOTE | 2022-08-26 14:08 | P.PNIM_ITS ---
Subjective Subjective Date of Service: 08/26/22 Interval History: Patient continue to refuse all treatments this a.m.. Discussed with who is proxy. Patient given 5 mg of IM Haldol and 1 mg IM Ativan. Within 30 minutes patient asking for food and taking shower. Willing to receive dialysis today Review of Systems Voices no complaint Physical Exam Vital Signs: Vital Signs: Last Vital Signs Temp 0 F L 08/26/22 04:00 Pulse 66 08/25/22 19:45 Resp 18 08/25/22 19:45 BP 182/99 H 08/25/22 19:45 Pulse Ox 96 08/25/22 19:45 O2 Del Method Room Air 08/25/22 19:45 BMI result Body Mass Index 28.7 Const: Other: Awake alert interactive appropriate Resp: Other: Clear to auscultation bilaterally no rales rhonchi wheezes Cardio: Other: No S4; positive S1-S2; no S3 murmurs rubs or gallops GI: Other: Soft nontender nondistended normoactive bowel sounds Neuro: Other: Cranial nerves 2-12 grossly intact as tested. Motor 5/5 all extremities. Sensation intact. Gait steady Extrem: Other: No edema bilaterally Objective Data Active Medications Acetaminophen (Acetaminophen 325 Mg Tablet) 650 mg PO Q6H PRN PRN Reason: Pain, Mild (Pain Scale 1-3) Aspirin (Aspirin 81 Mg Tab.Chew) 81 mg PO DAILY [facility] Last Admin: 08/26/22 09:36 Dose: Not Given Documented By: HELGA Non-Admin Reason: Patient Refused Benztropine Mesylate (Benztropine Mesylate 1 Mg Tablet) 1 mg PO BID [facility] Last Admin: 08/26/22 09:36 Dose: Not Given Documented By: HELGA Non-Admin Reason: Patient Refused Benztropine Mesylate (Benztropine Mesylate 1 Mg Tablet) 1 mg PO BID [facility] Divalproex Sodium (Divalproex Sodium Er 500 Mg Tab.Er.24h) 1,000 mg PO BEDTIME [facility] Last Admin: 08/25/22 20:03 Dose: Not Given Documented By: NIEVES Non-Admin Reason: Patient Refused Docusate Sodium (Docusate Sodium 100 Mg Capsule) 100 mg PO DAILY PRN PRN Reason: Constipation Ferrous Sulfate (Ferrous Sulfate 300 Mg/5 Ml Liquid) 300 mg PO TIDWM [facility] Last Admin: 08/26/22 11:34 Dose: Not Given Documented By: HELGA Non-Admin Reason: Patient Refused Heparin Sodium (Porcine) (Heparin Sodium,Porcine 5,000 Unit/Ml Vial) 5,000 unit SUBCUT Q12H [facility] Last Admin: 08/26/22 05:31 Dose: Not Given Documented By: NIEVES Non-Admin Reason: Patient Refused Valproic Acid 1,000 mg/ (Dextrose) 60 mls @ 60 mls/hr IV ONCE ONE Stop: 08/26/22 14:59 Valproic Acid 1,000 mg/ (Dextrose) 60 mls @ 60 mls/hr IV ONCE ONE Stop: 08/26/22 15:14 Non-Formulary Medication (Thiothixene) 15 mg PO DAILY [facility] Olanzapine (Olanzapine 7.5 Mg Tablet) 15 mg PO BEDTIME [facility] Last Admin: 08/25/22 20:03 Dose: Not Given Documented By: NIEVES Non-Admin Reason: Patient Refused Ondansetron HCl (Ondansetron Hcl 4 Mg/2 Ml Vial) 4 mg IVPUSH Q8H PRN PRN Reason: Nausea and Vomiting Sodium Chloride (0.9 % Sodium Chloride Flush 3 Ml Syringe) [facility] Last Admin: 08/26/22 07:19 Dose: Not Given Documented By: HELGA Non-Admin Reason: No Access Sodium Chloride (0.9 % Sodium Chloride Flush 3 Ml Syringe) 3 ml IVFLUSH QSHIFT [facility] Last Admin: 08/26/22 07:19 Dose: Not Given Documented By: HELGA Non-Admin Reason: No Access Assessment and Plan (1) Schizoaffective disorder, bipolar type: Status: Acute (2) ESRD (end stage renal disease): Status: Acute Plan Pt is a 67-year-old male with a PMH significant for?schizoaffective disorder bipolar type, ESRD on HD // who is admitted to the medical floor for missed dialysis. Patient is a transfer from [facility] after he began refusing dialysis, . Given 5 mg Haldol/Ativan 1 mg IM with excellent response 1.Schizoaffective disorder bipolar type -good response to Haldol Ativan combination. .. However says did not tolerate Haldol long-term initially. -will use Haldol sparingly until Depakote levels adequate -will give 1000 mg valproic acid after dialysis 2.ESRD on HD M// -agreeing to HD this afternoon -further treatments as per Renal -follow renal diet Phalen's in a.m. Full Code Zeina Requires ongoing hospitalization to load her with valproic acid and adequately dialyzed Time Spent With Patient Time: Total time managing care of this patient today ____ minutes. Quality Stroke Does the patient have a stroke diagnosis?: No VTE Prior VTE?: No VTE Risk Level:: Medical - moderate - high VTE Device Contraindication: Treatment Not Indicated VTE Drug Contraindication: N/A - Med Ordered
--- NOTE | 2022-08-26 15:19 | P.PNNP_ITS ---
Subjective Subjective Date of Service: 08/26/22 Interval history: Seen and examined, events noted This am he would not respond to me despite my knowing him for yearsand seeing him weekly at the outpt HD unit Physical Exam Vital Signs: Vital Signs: Last Vital Signs Temp 0 F L 08/26/22 04:00 Pulse 66 08/25/22 19:45 Resp 18 08/25/22 19:45 BP 182/99 H 08/25/22 19:45 Pulse Ox 96 08/25/22 19:45 O2 Del Method Room Air 08/25/22 19:45 BMI result Body Mass Index 28.7 Const: Other: Awake alert interactive appropriate Resp: Other: Clear to auscultation bilaterally no rales rhonchi wheezes Cardio: Other: No S4; positive S1-S2; no S3 murmurs rubs or gallops GI: Other: Soft nontender nondistended normoactive bowel sounds Neuro: Other: Cranial nerves 2-12 grossly intact as tested. Motor 5/5 all extremities. Sensation intact. Gait steady Extrem: Other: No edema bilaterally Procedures Date of Service Date of Service: 08/26/22 Assessment & Plan Assessment and plan (1) Schizoaffective disorder, bipolar type: Status: Acute (2) ESRD (end stage renal disease): Status: Acute Plan Pt is a 67-year-old male with a PMH significant for?schizoaffective disorder bipolar type, ESRD on HD M/W/ who is admitted to the medical floor for missed dialysis. Patient is a transfer from [facility] after he began refusing dialysis, ESRD: [facility] HD PT --refused HD wed and again today Psych flare: major issue and now interfering with getting his HD--he is non- competnet d/t psych flare Dr Correa aware and is to treat with psych meds and then hopefully we can get him to go to HD today Update--after getting psych meds he is now agreing to 2.5 hr HD Time Spent With Patient Time: Total time managing care of this patient today ____ minutes. Progress Note: Quality Stroke Does the patient have a stroke diagnosis?: No
[2022-08-26] MEDS: Valproic Acid (as Sodium Salt) 1,000 MG in Dextrose 5 % 50 ML 60 MG IV (16:55)
[2022-08-26 19:38] VITALS: PULSE 82; RESP 17; TEMP 36.8; O2SAT 94
[2022-08-27] MEDS: Haloperidol Lactate 5 MG/ML VIAL IM ×2 (08:07→18:57)
[2022-08-27] MEDS: 0.9 % Sodium Chloride Flush 3 ML SYRINGE IVFLUSH (08:08)
--- NOTE | 2022-08-27 12:18 | P.PNIM_ITS ---
Subjective Subjective Date of Service: 08/27/22 Interval History: For brief period of lucency yesterday secondary to Haldol. Did receive dialysis. Refused meds overnight and this a.m.. Discussed with Renal no further dialysis next 48 hours. Patient remains resistant to care but non co mbative Review of Systems Voices no complaint Physical Exam Vital Signs: Vital Signs: Last Vital Signs Temp 98.2 F 08/26/22 19:38 Pulse 82 08/26/22 19:38 Resp 17 08/26/22 19:38 BP 182/99 H 08/25/22 19:45 Pulse Ox 94 08/26/22 19:38 O2 Del Method Room Air 08/26/22 19:38 BMI result Body Mass Index 28.7 Const: Other: Awake alert interactive appropriate Resp: Other: Clear to auscultation bilaterally no rales rhonchi wheezes Cardio: Other: No S4; positive S1-S2; no S3 murmurs rubs or gallops GI: Other: Soft nontender nondistended normoactive bowel sounds Neuro: Other: Cranial nerves 2-12 grossly intact as tested. Motor 5/5 all extremities. Sensation intact. Gait steady Extrem: Other: No edema bilaterally Objective Data Active Medications Acetaminophen (Acetaminophen 325 Mg Tablet) 650 mg PO Q6H PRN PRN Reason: Pain, Mild (Pain Scale 1-3) Aspirin (Aspirin 81 Mg Tab.Chew) 81 mg PO DAILY [facility] Last Admin: 08/27/22 09:59 Dose: Not Given Documented By: HELGA Non-Admin Reason: Patient Refused Benztropine Mesylate (Benztropine Mesylate 1 Mg Tablet) 1 mg PO BID [facility] Last Admin: 08/27/22 10:00 Dose: Not Given Documented By: HELGA Non-Admin Reason: Patient Refused Divalproex Sodium (Divalproex Sodium Er 500 Mg Tab.Er.24h) 1,000 mg PO BEDTIME [facility] Last Admin: 08/26/22 17:10 Dose: Not Given Documented By: HELGA Non-Admin Reason: Physician Held Med Docusate Sodium (Docusate Sodium 100 Mg Capsule) 100 mg PO DAILY PRN PRN Reason: Constipation Ferrous Sulfate (Ferrous Sulfate 300 Mg/5 Ml Liquid) 300 mg PO TIDWM [facility] Last Admin: 08/27/22 09:59 Dose: Not Given Documented By: HELGA Non-Admin Reason: Patient Refused Haloperidol Lactate (Haloperidol Lactate 5 Mg/Ml Vial) 2.5 mg IM Q6H PRN PRN Reason: anxiety/restlessness Heparin Sodium (Porcine) (Heparin Sodium,Porcine 5,000 Unit/Ml Vial) 5,000 unit SUBCUT Q12H [facility] Last Admin: 08/27/22 05:13 Dose: Not Given Documented By: REJI Non-Admin Reason: Patient Refused Non-Formulary Medication (Thiothixene) 15 mg PO DAILY [facility] Last Admin: 08/27/22 10:00 Dose: Not Given Documented By: HELGA Non-Admin Reason: Med not available/Refusing PO meds Olanzapine (Olanzapine 7.5 Mg Tablet) 15 mg PO BEDTIME [facility] Last Admin: 08/26/22 20:57 Dose: Not Given Documented By: REJI Non-Admin Reason: Patient Refused Ondansetron HCl (Ondansetron Hcl 4 Mg/2 Ml Vial) 4 mg IVPUSH Q8H PRN PRN Reason: Nausea and Vomiting Sodium Chloride (0.9 % Sodium Chloride Flush 3 Ml Syringe) [facility] Admin: 08/27/22 08:08 Dose: 3 ml Documented By: HELGA Sodium Chloride (0.9 % Sodium Chloride Flush 3 Ml Syringe) [facility] Last Admin: 08/27/22 07:19 Dose: Not Given Documented By: HELGA Non-Admin Reason: Duplicate Order Assessment and Plan (1) Schizoaffective disorder, bipolar type: Status: Acute (2) ESRD (end stage renal disease): Status: Acute Plan Pt is a 67-year-old male with a PMH significant for?schizoaffective disorder bipolar type, ESRD on HD M/W/F who is admitted to the medical floor for missed dialysis. Patient is a transfer from [facility] after he began refusing dialysis, . Given 5 mg Haldol/Ativan 1 mg IM with excellent response 1.Schizoaffective disorder bipolar type -brief response to Haldol Ativan combination. .. However lesser response this a.m. -will continue utilizing Ativan and Haldol and hopes to promote clarity -discussed . Unable to manage home. Will continue to manage with hopes to transition back to Psychiatry 1 compliant with HD 2.ESRD on HD M/W/F -2.5hrs HD 08/26 -further treatments as per Renal -follow renals/divalents as allowed Full Code Zeina Requires ongoing hospitalization to load her with valproic acid and adequately dialyzed Time Spent With Patient Time: Total time managing care of this patient today ____ minutes. Quality Stroke Does the patient have a stroke diagnosis?: No VTE Prior VTE?: No VTE Risk Level:: Medical - moderate - high VTE Device Contraindication: Treatment Not Indicated VTE Drug Contraindication: N/A - Med Ordered
[2022-08-27] MEDS: Benztropine Mesylate 1 MG TABLET PO (14:13)
--- NOTE | 2022-08-27 15:57 | P.PNNP_ITS ---
Subjective Subjective Date of Service: 08/27/22 Interval history: Seen and examined,events noted Recieved 2.5 hr s HD yesterday Physical Exam Vital Signs: Vital Signs: Last Vital Signs Temp 98.2 F 08/26/22 19:38 Pulse 82 08/26/22 19:38 Resp 17 08/26/22 19:38 BP 182/99 H 08/25/22 19:45 Pulse Ox 94 08/26/22 19:38 O2 Del Method Room Air 08/26/22 19:38 BMI result Body Mass Index 28.7 Const: Other: Awake alert interactive appropriate Resp: Other: Clear to auscultation bilaterally no rales rhonchi wheezes Cardio: Other: No S4; positive S1-S2; no S3 murmurs rubs or gallops GI: Other: Soft nontender nondistended normoactive bowel sounds Neuro: Other: Cranial nerves 2-12 grossly intact as tested. Motor 5/5 all extremities. Sensation intact. Gait steady Extrem: Other: No edema bilaterally Procedures Date of Service Date of Service: 08/27/22 Assessment & Plan Assessment and plan (1) Schizoaffective disorder, bipolar type: Status: Acute (2) ESRD (end stage renal disease): Status: Acute Plan Pt is a 67-year-old male with a PMH significant for?schizoaffective disorder bipolar type, ESRD on HD M/W/ who is admitted to the medical floor for missed dialysis. Patient is a transfer from [facility] after he began refusing dialysis, ESRD: mwf HD PT --refused HD on/off Psych flare: major issue and now interfering with getting his HD--he is non- competnet d/t psych flare He now tells me he will agree to go for dialysis for his usu mwf but only if its as an ouptt at his us[facility] hd unit in [facility] Time Spent With Patient Time: Total time managing care of this patient today ____ minutes. Progress Note: Quality Stroke Does the patient have a stroke diagnosis?: No
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
--- NOTE | 2022-08-27 17:49 | PC.NURSE ---
MD blackburn order Ativan and Haldol for patient IM, patient refusing injection. Will lydia BARAKAT.
--- NOTE | 2022-08-27 18:20 | PC.NURSE ---
Re-approached without security to offer IM injection. Patient refused. Not being combative or agressive to staff at this time. Sitter at bedside. Medications wasted with other nurse.
[2022-08-27] MEDS: LORazepam 2 MG/ML VIAL 1 MG IM (18:57)
--- NOTE | 2022-08-27 19:36 | PC.NURSE ---
Pt was found to have removed IV catheter from R hand at 1700 and became combative with staff attempting to hold pressure on bleeding. Bandage placed. made aware, who ordered IM Haldol 5mg and IM ativan 1mg. After conversations with this nurse and nursing supervisors, MD elected to administer the meds with the assistance of nursing and security. MD communicated plan with health care proxy. Meds adminstered without issue at 1830 and pt is resting quietly in room with 1:1 sitter and camera. No new IV per MD.
[2022-08-28 07:51] VITALS: BP 189/92; PULSE 78; RESP 18; TEMP 36.7; O2SAT 95
--- NOTE | 2022-08-28 12:49 | P.PNNP_ITS ---
Subjective Subjective Date of Service: 08/28/22 Interval history: Seen and examined,events noted Recieved 2.5 hr s HD 08/27/22 Physical Exam Vital Signs: Vital Signs: Last Vital Signs Temp 98.0 F 08/28/22 07:51 Pulse 78 08/28/22 07:51 Resp 18 08/28/22 07:51 BP 189/92 H 08/28/22 07:51 Pulse Ox 95 08/28/22 07:51 O2 Del Method Room Air 08/28/22 07:51 BMI result Body Mass Index 28.7 Const: Other: Awake alert interactive appropriate Resp: Other: Clear to auscultation bilaterally no rales rhonchi wheezes Cardio: Other: No S4; positive S1-S2; no S3 murmurs rubs or gallops GI: Other: Soft nontender nondistended normoactive bowel sounds Neuro: Other: Cranial nerves 2-12 grossly intact as tested. Motor 5/5 all extremities. Sensation intact. Gait steady Extrem: Other: No edema bilaterally Procedures Date of Service Date of Service: 08/28/22 Assessment & Plan Assessment and plan (1) Schizoaffective disorder, bipolar type: Status: Acute (2) ESRD (end stage renal disease): Status: Acute Plan Pt is a 67-year-old male with a PMH significant for?schizoaffective disorder bipolar type, ESRD on HD M/W/ who is admitted to the medical floor for missed dialysis. Patient is a transfer from [facility] after he began refusing dialysis, ESRD: mwf HD PT --refused HD on/off Psych flare: major issue and now interfering with getting his HD--he is non- competnet d/t psych flare He now tells me he will agree to go for dialysis for his usu mwf but only if its as an ouptt at his usu hd unit in [facility]; ques d/c today o/w will schedule HD inhosp tomorrow Time Spent With Patient Time: Total time managing care of this patient today ____ minutes. Progress Note: Quality Stroke Does the patient have a stroke diagnosis?: No
[2022-08-28] MEDS: Haloperidol Lactate 5 MG/ML VIAL 10 MG IM (14:54)
--- NOTE | 2022-08-28 16:02 | HO.PM.IMPN ---
Subjective Subjective Date of Service: 08/28/22 Interval History: Requested conversation. Pleasant, cooperative and apologetic for behavior earlier this a.m.. Are and re-approached for meds and patient declined. Later in afternoon patient nonverbal will not engage abstract writer Review of Systems Voices no complaint Physical Exam Vital Signs: Vital Signs: Last Vital Signs Temp 98.0 F 08/28/22 07:51 Pulse 78 08/28/22 07:51 Resp 18 08/28/22 07:51 BP 189/92 H 08/28/22 07:51 Pulse Ox 95 08/28/22 07:51 O2 Del Method Room Air 08/28/22 07:51 BMI result Body Mass Index 28.7 Const: Other: Awake alert interactive appropriate Resp: Other: Clear to auscultation bilaterally no rales rhonchi wheezes Cardio: Other: No S4; positive S1-S2; no S3 murmurs rubs or gallops GI: Other: Soft nontender nondistended normoactive bowel sounds Neuro: Other: Cranial nerves 2-12 grossly intact as tested. Motor 5/5 all extremities. Sensation intact. Gait steady Extrem: Other: No edema bilaterally Objective Data Active Medications Acetaminophen (Acetaminophen 325 Mg Tablet) 650 mg PO Q6H PRN PRN Reason: Pain, Mild (Pain Scale 1-3) Aspirin (Aspirin 81 Mg Tab.Chew) 81 mg PO DAILY [facility] Last Admin: 08/28/22 09:05 Dose: Not Given Documented By: HELGA Non-Admin Reason: Patient Refused Benztropine Mesylate (Benztropine Mesylate 1 Mg Tablet) 1 mg PO BID [facility] Last Admin: 08/28/22 14:47 Dose: Not Given Documented By: HELGA Non-Admin Reason: Pt refused multiple times Divalproex Sodium (Divalproex Sodium Er 500 Mg Tab.Er.24h) 1,000 mg PO BEDTIME [facility] Last Admin: 08/27/22 20:20 Dose: Not Given Documented By: PENELOPE Non-Admin Reason: Patient Refused Docusate Sodium (Docusate Sodium 100 Mg Capsule) 100 mg PO DAILY PRN PRN Reason: Constipation Ferrous Sulfate (Ferrous Sulfate 300 Mg/5 Ml Liquid) 300 mg PO TIDWM [facility] Last Admin: 08/28/22 12:17 Dose: Not Given Documented By: HELGA Non-Admin Reason: Patient Refused Haloperidol Lactate (Haloperidol Lactate 5 Mg/Ml Vial) 2.5 mg IM Q6H PRN PRN Reason: anxiety/restlessness Heparin Sodium (Porcine) (Heparin Sodium,Porcine 5,000 Unit/Ml Vial) 5,000 unit SUBCUT Q12H [facility] Last Admin: 08/28/22 05:26 Dose: Not Given Documented By: PENELOPE Non-Admin Reason: Patient Refused Non-Formulary Medication (Thiothixene) 15 mg PO DAILY [facility] Last Admin: 08/28/22 14:47 Dose: Not Given Documented By: HELGA Non-Admin Reason: pt refused multiple times Olanzapine (Olanzapine 7.5 Mg Tablet) 15 mg PO BEDTIME [facility] Last Admin: 08/27/22 20:21 Dose: Not Given Documented By: PENELOPE Non-Admin Reason: Patient Refused Ondansetron HCl (Ondansetron Hcl 4 Mg/2 Ml Vial) 4 mg IVPUSH Q8H PRN PRN Reason: Nausea and Vomiting Sodium Chloride (0.9 % Sodium Chloride Flush 3 Ml Syringe) [facility] Last Admin: 08/28/22 14:19 Dose: Not Given Documented By: HELGA Non-Admin Reason: No Access Sodium Chloride (0.9 % Sodium Chloride Flush 3 Ml Syringe) [facility] Last Admin: 08/28/22 14:19 Dose: Not Given Documented By: HELGA Non-Admin Reason: No Access Assessment and Plan (1) Schizoaffective disorder, bipolar type: Status: Acute (2) ESRD (end stage renal disease): Status: Acute (3) Dialysis patient: Status: Acute Plan Pt is a 67-year-old male with a PMH significant for?schizoaffective disorder bipolar type, ESRD on HD M// who is admitted to the medical floor for missed dialysis. Patient is a transfer from [facility] after he began refusing dialysis, . Given 5 mg Haldol/Ativan 1 mg IM with excellent response initially. Received multiple doses. This a.m. 20 minutes of clarity however return to nonverbal state shortly thereafter 1.Schizoaffective disorder bipolar type -able to have 20 minute conversation with patient earlier today however back to nonverbal this p.m. -discussed with on-call psych; will avoid depot shot. Will pulse dose with Haldol and Ativan as needed -goal will be to get Navane back into the regimen to facilitate HD and return of clarity -discussed . Unable to manage home. Will continue to manage with hopes to transition back to Psychiatry (S1) when compliant with HD 2.ESRD on HD M/W/F -2.5hrs HD 08/26 -further treatments as per Renal -follow renals/divalents as allowed Full Code Karolinex Requires ongoing hospitalization to pulse dose with haldol in hopes to facilitate consistant Navane compliance Time Spent With Patient Time: Total time managing care of this patient today ____ minutes. Quality Stroke Does the patient have a stroke diagnosis?: No VTE Prior VTE?: No VTE Risk Level:: Medical - moderate - high VTE Device Contraindication: Treatment Not Indicated VTE Drug Contraindication: N/A - Med Ordered
[2022-08-28 19:56] VITALS: BP 152/90; PULSE 70; RESP 17; TEMP 36.6; O2SAT 96
[2022-08-29] MEDS: Haloperidol Lactate 5 MG/ML VIAL IM (10:57)
[2022-08-29] MEDS: LORazepam 2 MG/ML VIAL 1 MG IM (11:33)
[2022-08-29 11:37] LABS: MANUAL DIFF FLAG NO
[2022-08-29 11:42] LABS: Basophils Percent Auto 0.6 % (0-2); Eosinophils Absolute Auto 0.1 X10*3/uL (0.0-0.4); Eosinophils Percent Auto 1.2 % (0-4); Imm Gran Abs Auto 0.01 X10*3/uL (0.00-0.03); Imm Gran Pct Auto 0.2 % (0.0-0.4); Mean Corpuscular HGB Conc 33.3 g/dl (31.0-36.0); Mean Corpuscular Hemoglobin 34.6 pg (27.0-33.0); Mean Corpuscular Volume 103.8 fL (80.0-98.0); Mean Platelet Volume 9.3 fL (9.4-12.4); Monocytes Absolute Auto 0.5 X10*3/uL (0.1-1.2); Monocytes Percent Auto 9.7 % (2-11); Neutrophils Absolute Auto 3.3 x10*3/uL (2.0-8.3); Neutrophils Percent Auto 67.3 % (45-73); Platelet Count 130 X10*3/uL (160-400); Red Blood Count 2.89 X10*6/uL (4.60-5.80)
--- NOTE | 2022-08-29 11:47 | P.CNPS_ITS ---
History of Present Illness Date of Service: 08/29/22 Chief Complaint: missed dialysis Reason for Consult: psychopharmacological mgmt in refusal of medical care HPI Narrative: per psych DC summary of 08/25: The patient is an elderly male with a history of bipolar disorder and end-stage renal disease admitted for exacerbation of psychosis and noncompliance of his medications.? Please see the HPI note for further details.? On admission the patient refused to take medications,? going to dialysis or collaborate with vital signs, he was in a nearly catatonic state.? The patient signed himself on a conditional voluntary on admission but later on we invoked his healthcare proxy and his co-sign his conditional voluntary.? We will start the process of affirmation of the healthcare proxy court pretty soon. The case was discussed at length with the global chief creative officer, chief of Psychiatry and hospitalist and since the patient had being refusing to do his dialysis he will be transfer to Medicine for further stabilization. per hospitalist note of 08/28: Pt is a 67-year-old male with a PMH significant for?schizoaffective disorder bipolar type, ESRD on HD M// who is admitted to the medical floor for missed dialysis. Patient is a transfer from [facility] after he began refusing dialysis, .? Given 5 mg Haldol/Ativan 1 mg IM with excellent response initially.? Received multiple doses.? This a.m. 20 minutes of clarity however return to nonverbal state shortly thereafter 1.Schizoaffective disorder bipolar type -able to have 20 minute conversation with patient earlier today however back to nonverbal this p.m. -discussed with on-call psych; will avoid depot shot.? Will pulse dose with Haldol and Ativan as needed -goal will be to get Navane back into the regimen to facilitate HD and return of clarity -discussed .? Unable to manage home.? Will continue to manage with hopes to transition back to Psychiatry (S1) when compliant with HD psych consult 08/29/22: pt seen in his room, lying on his left side in his bed with rhythmic rocking motions throughout his body but especially in his forearms and legs. he did not respond to attempts to speak with him. per contact from hospitalist batsheva today, pt has been refusing dialysis, labs, and and medications. his medical circumstance is felt to be dire, and medical staff are preparing to dialyze and medicate him involuntarily. HCP was invoked by Dr. Fernandez on the [facility]. consult question today is how best to medicate pt in preparation for involuntary medical care. per shart review, pt received haldol 5 mg IM x 1 and then haldol 5 mg IM and ativan 1 mg IM x 1 on 08/27. he received haldol 10 mg IM x 1 on 08/28. he has received haldol 5 mg IM and ativan 1 mg IM thus far today. per Dr. Correa's note above, pt has had favorable reaction to haldol 5 and ativan 1 IM in the past. Past Psychiatric History: Bipolar d/o ? psychosis . M 5 admissions and [facility] in 1990, No Op providers currently? First psychotic/manic break in early . 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 Trauma History: Deferred Diagnostics Vital Signs (24Hr): Vital Signs - 24 hr 08/28/22 19:56 Temperature 97.9 F Pulse Rate 70 Respiratory Rate 17 Blood Pressure 152/90 H Pulse Oximetry 96 Oxygen Delivery Method Room Air BMI result Body Mass Index 28.7 Labs 08/29/22 11:36 08/29/22 11:36 Labs: Laboratory Results - last 48 hr 08/29/22 11:36 WBC Cancelled RBC Cancelled Hgb Cancelled Hct Cancelled MCV Cancelled MCH Cancelled MCHC Cancelled RDW Cancelled Plt Count Cancelled MPV Cancelled Absolute Nucleated RBC Cancelled Nucleated RBC % (auto) Cancelled Mental Status Exam Mental Status Exam Narrative: lying in his bed rocking rhythmically, non-verbal. dressed in hospital dasha, disheveled. not cooperative. no speech. affect constricted, hyper-intense non-labile. Medications Medications Current Medications Acetaminophen (Acetaminophen 325 Mg Tablet) 650 mg PO Q6H PRN PRN Reason: Pain, Mild (Pain Scale 1-3) Aspirin (Aspirin 81 Mg Tab.Chew) 81 mg PO DAILY [facility] Last Admin: 08/29/22 08:23 Dose: Not Given Benztropine Mesylate (Benztropine Mesylate 1 Mg Tablet) 1 mg PO BID [facility] Last Admin: 08/29/22 08:23 Dose: Not Given Divalproex Sodium (Divalproex Sodium Er 500 Mg Tab.Er.24h) 1,000 mg PO BEDTIME [facility] Last Admin: 08/28/22 20:34 Dose: Not Given Docusate Sodium (Docusate Sodium 100 Mg Capsule) 100 mg PO DAILY PRN PRN Reason: Constipation Ferrous Sulfate (Ferrous Sulfate 300 Mg/5 Ml Liquid) 300 mg PO TIDWM [facility] Last Admin: 08/29/22 11:01 Dose: Not Given Haloperidol Lactate (Haloperidol Lactate 5 Mg/Ml Vial) 2.5 mg IM Q6H PRN PRN Reason: anxiety/restlessness Heparin Sodium (Porcine) (Heparin Sodium,Porcine 5,000 Unit/Ml Vial) 5,000 unit SUBCUT Q12H [facility] Last Admin: 08/29/22 04:49 Dose: Not Given Non-Formulary Medication (Thiothixene) 15 mg PO DAILY [facility] Last Admin: 08/29/22 08:24 Dose: Not Given Olanzapine (Olanzapine 7.5 Mg Tablet) 15 mg PO BEDTIME [facility] Last Admin: 08/28/22 20:34 Dose: Not Given Ondansetron HCl (Ondansetron Hcl 4 Mg/2 Ml Vial) 4 mg IVPUSH Q8H PRN PRN Reason: Nausea and Vomiting Sodium Chloride (0.9 % Sodium Chloride Flush 3 Ml Syringe) 3 ml IVFLUSH QSHIFT [facility] Last Admin: 08/29/22 07:34 Dose: Not Given Sodium Chloride (0.9 % Sodium Chloride Flush 3 Ml Syringe) 3 ml IVFLUSH [facility] Last Admin: 08/29/22 07:34 Dose: Not Given Allergies Allergies Allergy/AdvReac Type Severity Reaction Status Date / Time No Known Allergies Allergy Mild NOT Verified 08/22/22 15:55 APPLICABLE Assessment & Plan Assessment & Plan (1) Schizoaffective disorder, bipolar type: Status: Acute Code(s): F25.0 - Schizoaffective disorder, bipolar type Plan continue to give haldol 5 and ativan 1 mg IM periodically as needed in order to calm patient for procedures. i would add benadryl 50 mg to that regimen in order to minimize EPS. if needed, may give haldol 5 and ativan 2 mg IM and benadryl 50 mg IM if the ativan 1 mg is inadequately calming. alternatively, you may try giving zyprexa [address] of haldol and ativan and benadryl, especially if extrapyramidal symptoms become problematic. physical restraints may be necessary to maintain patient and staff safety during procedures. Total time managing care of this patient today __55__ minutes.
[2022-08-29 11:59] LABS: Alanine Aminotransferase 18 U/L (0-40); Albumin Level 4.2 g/dL (3.5-5.0); Alkaline Phosphatase 49 U/L (39-117); Anion Gap 22 (12-20); Aspartate Amino Transferase 25 U/L (5-37); Bilirubin Total 1.3 mg/dL (0.0-1.0); Blood Urea Nitrogen 76 mg/dL (9-16); Calcium 10.2 mg/dL (8.4-10.2); Carbon Dioxide 20 mmol/L (22-29); Chloride 105 mmol/L (96-108); Creatinine Clr Calc Pharmacy 4.8; Estimated Glomerular Filt Rate 3; Glucose Fasting 76 mg/dL (60-99); Potassium 5.5 mmol/L (3.3-5.1); Sodium 141 mmol/L (135-145); Total Protein 6.6 g/dL (6.5-8.0)
--- NOTE | 2022-08-29 12:11 | HO.PM.IMPN ---
Subjective Subjective Date of Service: 08/30/22 Interval History: Visited patient multiple times today this a.m. patient agreed for hemodialysis, but after going to a hemodialysis patient refused to undergo procedure, patient at times answer question otherwise mostly staring back and not verbalizing, noted to have generalized tremors, refusing to take by mouth medications and food. Review of Systems Unable to obtain review of system due to medical condition. Physical Exam Vital Signs: Vital Signs: Last Vital Signs Temp 97.9 F 08/28/22 19:56 Pulse 70 08/28/22 19:56 Resp 17 08/28/22 19:56 BP 152/90 H 08/28/22 19:56 Pulse Ox 96 08/28/22 19:56 O2 Del Method Room Air 08/28/22 19:56 BMI result Body Mass Index 28.7 Const: Other: General resting in bed, in no acute distress, generalized tremor. Neck supple no JVD. CVS regular rate rhythm, Respiratory lungs clear to auscultation, no respiratory distress, no wheeze, no rhonchi. Gastrointestinal abdomen soft, nontender, bowel sounds audible,no guarding , no rigidity. Extremities no edema. Neuro steady gait, speech clear Skin no rash Objective Data Active Medications Acetaminophen (Acetaminophen 325 Mg Tablet) 650 mg PO Q6H PRN PRN Reason: Pain, Mild (Pain Scale 1-3) Aspirin (Aspirin 81 Mg Tab.Chew) 81 mg PO DAILY [facility] Last Admin: 08/29/22 08:23 Dose: Not Given Documented By: BENJA Non-Admin Reason: Patient Refused Benztropine Mesylate (Benztropine Mesylate 1 Mg Tablet) 1 mg PO BID [facility] Last Admin: 08/29/22 08:23 Dose: Not Given Documented By: BENJA Non-Admin Reason: Patient Refused Divalproex Sodium (Divalproex Sodium Er 500 Mg Tab.Er.24h) 1,000 mg PO BEDTIME [facility] Last Admin: 08/28/22 20:34 Dose: Not Given Documented By: NAEL Non-Admin Reason: Patient Refused Docusate Sodium (Docusate Sodium 100 Mg Capsule) 100 mg PO DAILY PRN PRN Reason: Constipation Ferrous Sulfate (Ferrous Sulfate 300 Mg/5 Ml Liquid) 300 mg PO TIDWM [facility] Last Admin: 08/29/22 11:01 Dose: Not Given Documented By: BENJA Non-Admin Reason: Patient Refused Haloperidol Lactate (Haloperidol Lactate 5 Mg/Ml Vial) 2.5 mg IM Q6H PRN PRN Reason: anxiety/restlessness Heparin Sodium (Porcine) (Heparin Sodium,Porcine 5,000 Unit/Ml Vial) 5,000 unit SUBCUT Q12H [facility] Last Admin: 08/29/22 04:49 Dose: Not Given Documented By: NAEL Non-Admin Reason: Patient Refused Lorazepam (Lorazepam 2 Mg/Ml Vial) 1 mg IM STAT STA Stop: 08/29/22 12:10 Non-Formulary Medication (Thiothixene) 15 mg PO DAILY [facility] Last Admin: 08/29/22 08:24 Dose: Not Given Documented By: BENJA Non-Admin Reason: Patient Refused Olanzapine (Olanzapine 7.5 Mg Tablet) 15 mg PO BEDTIME [facility] Last Admin: 08/28/22 20:34 Dose: Not Given Documented By: NAEL Non-Admin Reason: Patient Refused Ondansetron HCl (Ondansetron Hcl 4 Mg/2 Ml Vial) 4 mg IVPUSH Q8H PRN PRN Reason: Nausea and Vomiting Sodium Chloride (0.9 % Sodium Chloride Flush 3 Ml Syringe) 3 ml IVFLUSH [facility] Last Admin: 08/29/22 07:34 Dose: Not Given Documented By: BENJA Non-Admin Reason: No Access Sodium Chloride (0.9 % Sodium Chloride Flush 3 Ml Syringe) 3 [facility] Last Admin: 08/29/22 07:34 Dose: Not Given Documented By: BENJA Non-Admin Reason: No Access Labs 08/29/22 11:36 08/29/22 11:36 Labs: Laboratory Results - last 24 hr 08/29/22 08/29/22 08/29/22 11:36 11:36 11:36 MCV 103.8 H Cancelled MCH 34.6 H Cancelled MCHC 33.3 Cancelled RDW 13.0 Cancelled Plt Count 130 L D Cancelled MPV 9.3 L Cancelled Immature Gran % (Auto) 0.2 Neut % (Auto) 67.3 Lymph % (Auto) 21.0 [place] % (Auto) 9.7 Eos % (Auto) 1.2 Baso % (Auto) 0.6 Lymph # (Auto) 1.0 L [place] # (Auto) 0.5 Eos # (Auto) 0.1 Baso # (Auto) 0.0 Abs Immat Gran (auto) 0.01 Absolute Neuts (auto) 3.3 Absolute Nucleated RBC 0.000 Cancelled Nucleated RBC % (auto) 0.0 Cancelled Anion Gap 22 H Estim Creat Clear Calc 4.8 Estimated GFR 3 Random Glucose Fasting Glucose 76 Calcium 10.2 Total Bilirubin 1.3 H AST 25 ALT 18 Alkaline Phosphatase 49 Total Protein 6.6 Albumin 4.2 08/29/22 11:36 MCV MCH MCHC RDW Plt Count MPV Immature Gran % (Auto) Neut % (Auto) Lymph % (Auto) [place] % (Auto) Eos % (Auto) Baso % (Auto) Lymph # (Auto) [place] # (Auto) Eos # (Auto) Baso # (Auto) Abs Immat Gran (auto) Absolute Neuts (auto) Absolute Nucleated RBC Nucleated RBC % (auto) Anion Gap Cancelled Estim Creat Clear Calc Cancelled Estimated GFR Cancelled Random Glucose Cancelled Fasting Glucose Calcium Cancelled Total Bilirubin AST ALT Alkaline Phosphatase Total Protein Albumin Assessment and Plan (1) Schizoaffective disorder, bipolar type: Status: Acute (2) ESRD (end stage renal disease): Status: Acute (3) Dialysis patient: Status: Acute Plan Pt is a 67-year-old male with a PMH significant for?schizoaffective disorder bipolar type, ESRD on HD M/W/F patient is a transfer from [facility] after he began refusing dialysis. 1.Schizoaffective disorder bipolar type with flare -patient refuse hemodialysis again today, Haldol 5 mg and Ativan 1 mg IM given, post treatment patient continued to refuse dialysis Consult Psychiatry, inform them that Haldol and Ativan not working, psychiatry recommended 3 mg of im Ativan, once sedated they recommend to try giving by mouth medication , they recommend to add Benadryl 50 mg IM to minimize extrapyramidal side effects, Zyprexa 10 mg IM if Haldol and Ativan not working. Healthcare proxy invoked ,patient's is HCP is Unable to manage at home. Will continue to manage with hopes to transition back to Psychiatry (S1) when compliant with HD Continue home medications Cogentin, ferrous sulfate, Depakote 1000 at bedtime, Zyprexa and thiothixene however patient refusing by mouth medications. EKG obtained to check for QTC since receiving Haldol. 2.ESRD on HD M// -2.5hrs HD 08/27, patient refuse hemodialysis at a.m., repeat labs this am showed potassium 5.5, creatinine 17.13 and BUN of 76, Lokelma ordered however patient declined, after discussing with Psychiatry another 3 mg of IM Ativan was given, patient post Ativan became somnolent case discussed with Dr. Pena and arrangements made for patient to undergo hemodialysis this evening. Full Code Zeina Requires ongoing hospitalization for further management and treatment of schizoaffective disorder with flare and also for hemodialysis. Time Spent With Patient Time: Total time managing care of this patient today ____ minutes. Quality Stroke Does the patient have a stroke diagnosis?: No VTE Prior VTE?: No VTE Risk Level:: Medical - moderate - high VTE Device Contraindication: Treatment Not Indicated VTE Drug Contraindication: N/A - Med Ordered
[2022-08-29] MEDS: LORazepam 2 MG/ML VIAL 3 MG IM (14:21)
--- NOTE | 2022-08-29 16:08 | MHC.CLN ---
F/U DIET=REGULAR PER MD RX. LAST DIALYSIS 08/26. HX REFUSING DIALYSIS. BUN, Cr, AND POTASSIUM ELEVATED. CHANGES TO PSYCH MEDS. INTAKE VARIABLE, 25-100%. FOLLOW FOR INTAKE, DIALYSIS, AND LABS.
[2022-08-29] MEDS: LORazepam 2 MG/ML VIAL IM (18:08)
--- NOTE | 2022-08-29 18:14 | PC.NURSE ---
Pt agreeable to HD this AM, pt went to HD and within 15mins pt refused procedure and wanted to go back to room. PT brought back to room and MD at bedside and pt continued to refuse HD. HCP () invoked and wanted pt to receive IM medication so he could receive HD. Haldol 5mg IM given at 1057 and Ativan 1mg IM given at 1133, pt willing to allow lab draws. BUN 76 Creat 17.13 K+ 5.5 Dr. Herman made aware. Lokelma ordered and attempted to give to pt-pt refused and shoved away the cup. Pt requested to talk to . Dr. Hui at bedside and ordered 3mg IM Ativan to calm pt in attempts to give lokelma. 3mg IM ativan given at 1420 pt was reassessed 20mins later and pt still refused to drink the lokelma- dr. herman made aware. Around 1530 pt was sleeping and arraignment made for HD, pt brought to HD at 1700. This RN went to check on pt in HD at 1800-pt still had about 1.5hrs left of HD, pt was awake with increased anxiety-2mg IM Ativan given. Pt in HD now.
--- NOTE | 2022-08-29 18:29 | P.PNNP_ITS ---
Subjective Subjective Date of Service: 08/29/22 Interval history: Seen and examined, events noted Refusing HD on/off Physical Exam Vital Signs: Vital Signs: Last Vital Signs Temp 97.9 F 08/28/22 19:56 Pulse 70 08/28/22 19:56 Resp 17 08/28/22 19:56 BP 152/90 H 08/28/22 19:56 Pulse Ox 96 08/28/22 19:56 O2 Del Method Room Air 08/28/22 19:56 BMI result Body Mass Index 28.7 Const: Other: Awake alert interactive appropriate Resp: Other: Clear to auscultation bilaterally no rales rhonchi wheezes Cardio: Other: No S4; positive S1-S2; no S3 murmurs rubs or gallops GI: Other: Soft nontender nondistended normoactive bowel sounds Neuro: Other: Cranial nerves 2-12 grossly intact as tested. Motor 5/5 all extremities. Sensation intact. Gait steady Extrem: Other: No edema bilaterally Objective Data Labs 08/29/22 11:36 08/29/22 11:36 Labs: Laboratory Results - last 24 hr 08/29/22 08/29/22 08/29/22 11:36 11:36 11:36 WBC 5.0 Cancelled RBC 2.89 L Cancelled Hgb 10.0 L Cancelled Hct 30.0 L Cancelled MCV 103.8 H Cancelled MCH 34.6 H Cancelled MCHC 33.3 Cancelled RDW 13.0 Cancelled Plt Count 130 L D Cancelled MPV 9.3 L Cancelled Immature Gran % (Auto) 0.2 Neut % (Auto) 67.3 Lymph % (Auto) 21.0 [place] % (Auto) 9.7 Eos % (Auto) 1.2 Baso % (Auto) 0.6 Lymph # (Auto) 1.0 L [place] # (Auto) 0.5 Eos # (Auto) 0.1 Baso # (Auto) 0.0 Abs Immat Gran (auto) 0.01 Absolute Neuts (auto) 3.3 Absolute Nucleated RBC 0.000 Cancelled Nucleated RBC % (auto) 0.0 Cancelled Sodium 141 Potassium 5.5 H D Chloride 105 Carbon Dioxide 20 L Anion Gap 22 H BUN 76 H Creatinine 17.13 H* Estim Creat Clear Calc 4.8 Estimated GFR 3 Random Glucose Fasting Glucose 76 Calcium 10.2 Total Bilirubin 1.3 H AST 25 ALT 18 Alkaline Phosphatase 49 Total Protein 6.6 Albumin 4.2 08/29/22 11:36 WBC RBC Hgb Hct MCV MCH MCHC RDW Plt Count MPV Immature Gran % (Auto) Neut % (Auto) Lymph % (Auto) [place] % (Auto) Eos % (Auto) Baso % (Auto) Lymph # (Auto) [place] # (Auto) Eos # (Auto) Baso # (Auto) Abs Immat Gran (auto) Absolute Neuts (auto) Absolute Nucleated RBC Nucleated RBC % (auto) Sodium Cancelled Potassium Cancelled Chloride Cancelled Carbon Dioxide Cancelled Anion Gap Cancelled BUN Cancelled Creatinine Cancelled Estim Creat Clear Calc Cancelled Estimated GFR Cancelled Random Glucose Cancelled Fasting Glucose Calcium Cancelled Total Bilirubin AST ALT Alkaline Phosphatase Total Protein Albumin Procedures Date of Service Date of Service: 08/29/22 Assessment & Plan Assessment and plan (1) Schizoaffective disorder, bipolar type: Status: Acute (2) ESRD (end stage renal disease): Status: Acute Plan Pt is a 67-year-old male with a PMH significant for?schizoaffective disorder b ipolar type, ESRD on HD M/W/ who is admitted to the medical floor for missed dialysis. Patient is a transfer from [facility] after he began refusing dialysis, ESRD: mwf HD PT --refused HD on/off Psych flare: major issue and now interfering with getting his HD--he is non- competnet d/t psych flare He went to Hd and then refused--psych seeing him and incr psych meds and hope pt doHD later today vs in am Time Spent With Patient Time: Total time managing care of this patient today ____ minutes. Progress Note: Quality Stroke Does the patient have a stroke diagnosis?: No
[2022-08-29 22:12] LABS: Anion Gap 20 (12-20); Blood Urea Nitrogen 35 mg/dL (9-16); Calcium 9.1 mg/dL (8.4-10.2); Carbon Dioxide 21 mmol/L (22-29); Chloride 101 mmol/L (96-108); Creatinine Clr Calc Pharmacy 9.6; Estimated Glomerular Filt Rate 6; Glucose Random 83 mg/dL (60-115); Sodium 138 mmol/L (135-145)
[2022-08-29] MEDS: 0.9 % Sodium Chloride Flush 3 ML SYRINGE IVFLUSH (23:01)
[2022-08-30] MEDS: 0.9 % Sodium Chloride Flush 3 ML SYRINGE IVFLUSH ×6 (00:48→21:29)
[2022-08-30] MEDS: Aspirin 81 MG TAB.CHEW PO (08:57)
--- NOTE | 2022-08-30 13:28 | PM.PNNEP ---
Subjective Subjective Date of Service: 08/30/22 Interval history: Had HD yesterday. D/W HD RN. All recent data reviewed Physical Exam Vital Signs: Vital Signs: Last Vital Signs Temp 97.9 F 08/28/22 19:56 Pulse 70 08/28/22 19:56 Resp 17 08/28/22 19:56 BP 152/90 H 08/28/22 19:56 Pulse Ox 96 08/28/22 19:56 O2 Del Method Room Air 08/28/22 19:56 BMI result Body Mass Index 28.7 Const: General: no acute distress Eyes: EOM: EOMs intact bilaterally Neck: Neck: Yes supple Resp: Auscultation: diminished lung sounds Cardio: Rate: regular rate GI: Palpation (GI): Soft to palpation Skin: General skin exam: no rashes or lesions noted Neuro: General: moves all extremities Objective Data Labs 08/29/22 11:36 08/29/22 21:17 Labs: Laboratory Results - last 24 hr 08/29/22 21:17 Sodium 138 Potassium 4.0 D Chloride 101 Carbon Dioxide 21 L Anion Gap 20 BUN 35 H Creatinine 8.70 H* Estim Creat Clear Calc 9.6 Estimated GFR 6 Random Glucose 83 Calcium 9.1 D Procedures Date of Service Date of Service: 08/30/22 Assessment & Plan Assessment and plan (1) ESRD needing dialysis: Status: Acute Assessment and Plan: Usually gets HD on MWF Had compliance issues with HD Had HD yesterday; Due tomorrow Renal Diet; Phos binders with meals Has Anemia of chronic disease May need EPO during this visit Time Spent With Patient Time: . Progress Note: Quality Stroke Does the patient have a stroke diagnosis?: No
--- NOTE | 2022-08-30 13:38 | HO.PM.IMPN ---
Subjective Subjective Date of Service: 08/30/22 Interval History: Patient awake, nonverbal refusing to eat breakfast or take medications,noted to have generalized diffuse tremors, no other acute events overnight, patient tolerated hemodialysis last evening, potassium improved to 4 creatinine drop down from 17 to 8.70. Review of Systems Unable to obtain due to medical condition Physical Exam Vital Signs: Vital Signs: Last Vital Signs Temp 97.9 F 08/28/22 19:56 Pulse 70 08/28/22 19:56 Resp 17 08/28/22 19:56 BP 152/90 H 08/28/22 19:56 Pulse Ox 96 08/28/22 19:56 O2 Del Method Room Air 08/28/22 19:56 BMI result Body Mass Index 28.7 Const: Other: General? resting in bed, in no acute distress, generalized tremor.? Neck supple no JVD. CVS? regular rate rhythm, Respiratory lungs clear to auscultation, no respiratory distress, no wheeze, no rhonchi. Gastrointestinal abdomen soft, nontender, bowel sounds audible,no guarding , no rigidity. Extremities no edema. Skin no rash Objective Data Active Medications Acetaminophen (Acetaminophen 325 Mg Tablet) 650 mg PO Q6H PRN PRN Reason: Pain, Mild (Pain Scale 1-3) Aspirin (Aspirin 81 Mg Tab.Chew) 81 mg PO DAILY [facility] Last Admin: 08/30/22 08:57 Dose: 81 mg Documented By: NATO Benztropine Mesylate (Benztropine Mesylate 1 Mg Tablet) 1 mg PO BID [facility] Last Admin: 08/30/22 09:11 Dose: Not Given Documented By: NATO Non-Admin Reason: Patient Refused Divalproex Sodium (Divalproex Sodium Er 500 Mg Tab.Er.24h) 1,000 mg PO BEDTIME [facility] Last Admin: 08/29/22 21:22 Dose: Not Given Documented By: TERRY Non-Admin Reason: Patient Refused Docusate Sodium (Docusate Sodium 100 Mg Capsule) 100 mg PO DAILY PRN PRN Reason: Constipation Ferrous Sulfate (Ferrous Sulfate 300 Mg/5 Ml Liquid) 300 mg PO TIDWM [facility] Last Admin: 08/30/22 13:01 Dose: Not Given Documented By: NATO Non-Admin Reason: Patient Refused Haloperidol Lactate (Haloperidol Lactate 5 Mg/Ml Vial) 2.5 mg IM Q6H PRN PRN Reason: anxiety/restlessness Heparin Sodium (Porcine) (Heparin Sodium,Porcine 5,000 Unit/Ml Vial) 5,000 unit SUBCUT Q12H [facility] Last Admin: 08/30/22 05:35 Dose: Not Given Documented By: MERARY Non-Admin Reason: Patient Refused Lorazepam (Lorazepam 2 Mg/Ml Vial) 2 mg IM Q8H PRN PRN Reason: Anxiety Last Admin: 08/29/22 18:08 Dose: 2 mg Documented By: COTEMA Non-Formulary Medication (Thiothixene) 15 mg PO DAILY [facility] Last Admin: 08/30/22 09:10 Dose: Not Given Documented By: NATO Non-Admin Reason: Patient Refused Olanzapine (Olanzapine 7.5 Mg Tablet) 15 mg PO BEDTIME [facility] Last Admin: 08/29/22 21:22 Dose: Not Given Documented By: TERRY Non-Admin Reason: Patient Refused Ondansetron HCl (Ondansetron Hcl 4 Mg/2 Ml Vial) 4 mg IVPUSH Q8H PRN PRN Reason: Nausea and Vomiting Sodium Chloride (0.9 % Sodium Chloride Flush 3 Ml Syringe) 3 ml IVFLUSH QSNVFT [facility] Last Admin: 08/30/22 08:57 Dose: 3 ml Documented By: NATO Sodium Chloride (0.9 % Sodium Chloride Flush 3 Ml Syringe) [facility] Last Admin: 08/30/22 08:57 Dose: 3 ml Documented By: NATO Labs 08/29/22 11:36 08/29/22 21:17 Labs: Laboratory Results - last 24 hr 08/29/22 21:17 Anion Gap 20 Estim Creat Clear Calc 9.6 Estimated GFR 6 Random Glucose 83 Calcium 9.1 D Assessment and Plan (1) Schizoaffective disorder, bipolar type: Status: Acute (2) ESRD (end stage renal disease): Status: Acute (3) Dialysis patient: Status: Acute Plan Pt is a 67-year-old male with a PMH significant for?schizoaffective disorder bipolar type, ESRD on HD M/W/F patient is a transfer from [facility] after he began refusing dialysis. 1.Schizoaffective disorder bipolar type with flare -noted to be catatonic, refusing medications Case discussed with Dr.Alex Fernandez he will adjust psychiatric medications. Healthcare proxy invoked ,patient's is HCP, psychiatry will start the process of affirmation of the healthcare proxy at court. home medications Cogentin, ferrous sulfate, Depakote 1000 at bedtime, Zyprexa and thiothixene however patient refusing by mouth medications. 2.ESRD on HD M/W/F -2.5hrs HD 08/27, repeat HD on 08/29 repeat cret and potassium improved , being followed by Nephrology, continue hemodialysis Monday,Monday and Monday. Full Code Zeina Requires ongoing hospitalization for further management and treatment of schizoaffective disorder with flare and also for hemodialysis. Time Spent With Patient Time: Total time managing care of this patient today ____ minutes. Quality Stroke Does the patient have a stroke diagnosis?: No VTE Prior VTE?: No VTE Risk Level:: Medical - moderate - high VTE Device Contraindication: Treatment Not Indicated VTE Drug Contraindication: N/A - Med Ordered
--- NOTE | 2022-08-30 13:56 | P.CNHOSGPS_ITS ---
History of Present Illness Data of Consult Service Date: 08/30/22 Requesting physician: Carmela Butler Primary Care Provider: CARLOS Pretty Reason for consult: Reassessment of mental status The patient is a 67-year-old male with a prior history of bipolar disorder versus schizoaffective disorder bipolar type admitted for exacerbation of psychosis in the context of noncompliance with medication.? He also the patient has end-stage renal disease on dialysis.? He was transferred to Medicine since the patient was noncompliant with medications and dialysis. The staff has noticed that the patient had being non compliant with antipsychotics and he had been isolative, withdrawn, internally preoccupied with psychomotor retardation.? He was seen yesterday by Dr. Hui and I am going to follow him during this week.? On interview the patient was selectively mute, internally preoccupied, despondent.? We discussed the case with Dr. Chavez regarding his psychiatric treat ment in and since the patient does not have capacity to take informed decisions we are going to continue to follow the directions of his healthcare proxy. Review of Systems Review of Systems: Yes Unobtainable due to mental status [facility] Medical History Anemia Anemia Bipolar disorder Dialysis patient Hypertension Functional capacity: bed bound Social History Household Members: Spouse Housing: Unknown / Unable to assess Do you presently have visiting nurse or other home services: No Unable to assess alcohol history related to: Unable to respond Alcohol intake: never Patient Tobacco Use Status: Never used Tobacco Second Hand Smoke Exposure: No Use of substances other than those prescribed or required for medical reasons: Unable to respond Currently Displaying Signs/Symptoms of Drug Intoxication Withdrawal: No Advance Directives: No Advance Directives Information Provided: Yes Recently lost weight without trying: Unsure Eating poorly because of decreased appetite: No Poor oral hygiene: No service: No Current occupational status: disabled Sexual orientation: Straight/Heterosexual Meds Allergies Allergy/AdvReac Type Severity Reaction Status Date / Time No Known Allergies Allergy Mild NOT Verified 08/22/22 15:55 APPLICABLE Active Medications: Current Medications Acetaminophen (Acetaminophen 325 Mg Tablet) 650 mg PO Q6H PRN PRN Reason: Pain, Mild (Pain Scale 1-3) Aspirin (Aspirin 81 Mg Tab.Chew) 81 mg PO DAILY [facility] Last Admin: 08/30/22 08:57 Dose: 81 mg Benztropine Mesylate (Benztropine Mesylate 1 Mg Tablet) 1 mg PO BID [facility] Last Admin: 08/30/22 09:11 Dose: Not Given Divalproex Sodium (Divalproex Sodium Er 500 Mg Tab.Er.24h) 1,000 mg PO BEDTIME [facility] Last Admin: 08/29/22 21:22 Dose: Not Given Docusate Sodium (Docusate Sodium 100 Mg Capsule) 100 mg PO DAILY PRN PRN Reason: Constipation Ferrous Sulfate (Ferrous Sulfate 300 Mg/5 Ml Liquid) 300 mg PO TIDWM [facility] Last Admin: 08/30/22 13:01 Dose: Not Given Haloperidol Lactate (Haloperidol Lactate 5 Mg/Ml Vial) 2.5 mg IM Q6H PRN PRN Reason: anxiety/restlessness Heparin Sodium (Porcine) (Heparin Sodium,Porcine 5,000 Unit/Ml Vial) 5,000 unit SUBCUT Q12H [facility] Last Admin: 08/30/22 05:35 Dose: Not Given Lorazepam (Lorazepam 2 Mg/Ml Vial) 2 mg IM Q8H PRN PRN Reason: Anxiety Last Admin: 08/29/22 18:08 Dose: 2 mg Lorazepam (Lorazepam 2 Mg/Ml Vial) 0.25 mg IVPUSH Q8H [facility] Non-Formulary Medication (Thiothixene) 15 mg PO DAILY [facility] Last Admin: 08/30/22 09:10 Dose: Not Given Olanzapine (Olanzapine 7.5 Mg Tablet) 15 mg PO BEDTIME [facility] Last Admin: 08/29/22 21:22 Dose: Not Given Ondansetron HCl (Ondansetron Hcl 4 Mg/2 Ml Vial) 4 mg IVPUSH Q8H PRN PRN Reason: Nausea and Vomiting Sodium Chloride (0.9 % Sodium Chloride Flush 3 Ml Syringe) 3 ml IVFLUSH QSHIFT [facility] Last Admin: 08/30/22 08:57 Dose: 3 ml Sodium Chloride (0.9 % Sodium Chloride Flush 3 Ml Syringe) 3 ml IVFLUSH QSHIFT [facility] Last Admin: 08/30/22 08:57 Dose: 3 ml Results Labs 08/29/22 11:36 08/29/22 21:17 Labs: Laboratory Results - last 24 hr 08/29/22 21:17 Anion Gap 20 Estim Creat Clear Calc 9.6 Estimated GFR 6 Random Glucose 83 Calcium 9.1 D Assessment and Plan (1) Schizoaffective disorder, bipolar type: Status: Acute (2) ESRD needing dialysis: Status: Acute Plan The patient is an elderly male with end-stage renal disease and schizoaffective disorder bipolar type admitted for noncompliance with medications with exacerbation of depression, psychosis and overall decline on his physical health. Transfer from psychiatric unit the medical unit for in 4 segment of dialysis per that he has been refusing. Plan 1. Start lorazepam 0.25 IV Q 8 hours to target catatonia/anxiety. 2. Continue with p.o. antipsychotics. If the patient refuses and he gets agitated he can use IM as per medical protocol. 3. We discussed the case with the pharmacist and he will benefit from IV antipsychotics but in order to get IV antipsychotics, he should on cardiac monitoring. 4. We will reassess tomorrow. 5. Discussed with primary team. Time Spent With Patient Time: Total time managing care of this patient today __30__ minutes. Physical Exam Vital Signs: Last Vital Signs Temp 97.9 F 08/28/22 19:56 Pulse 70 08/28/22 19:56 Resp 17 08/28/22 19:56 BP 152/90 H 08/28/22 19:56 Pulse Ox 96 08/28/22 19:56 O2 Del Method Room Air 08/28/22 19:56 BMI result Body Mass Index 28.7 Neuro Cranial nerves: Yes CN's II-XII intact bilaterally Psych Other: The patient is wearing hospital gowns, looks disheveled, poor eye contact, despondent. Speech is minimal, selectively mute. Affect blunted. Mood depressed. Thought process with thought blocking. Thought Content internally preoccupied, poverty of content. Insight judgment and impulse control poor
[2022-08-30 15:11] VITALS: TEMP 36.4
--- NOTE | 2022-08-30 17:23 | PC.NURSE ---
pt refused all care, which is VSs, all medications, food, and telemonitor. notified aware of all those. 1:1 sitter at the bedside.
[2022-08-30] MEDS: LORazepam 2 MG/ML VIAL 0.25 MG IVPUSH (21:05)
[2022-08-31] MEDS: LORazepam 2 MG/ML VIAL 0.25 MG IVPUSH (06:20)
[2022-08-31 08:03] VITALS: BP 113/75; PULSE 72; RESP 20; TEMP 36.2; O2SAT 97
[2022-08-31] MEDS: 0.9 % Sodium Chloride Flush 3 ML SYRINGE IVFLUSH (08:46)
--- NOTE | 2022-08-31 08:47 | PM.PNNEP ---
Subjective Subjective Date of Service: 08/31/22 Interval history: Seen AM. All recent data reviewed. Due HD today Physical Exam Vital Signs: Vital Signs: Last Vital Signs Temp 97.2 F 08/31/22 08:03 Pulse 72 08/31/22 08:03 Resp 20 08/31/22 08:03 BP 113/75 08/31/22 08:03 Pulse Ox 97 08/31/22 08:03 O2 Del Method Room Air 08/31/22 08:03 BMI result Body Mass Index 28.7 Const: General: no acute distress Eyes: EOM: EOMs intact bilaterally Resp: Auscultation: diminished lung sounds Cardio: Rate: regular rate GI: Palpation (GI): Soft to palpation Neuro: General: moves all extremities Objective Data Labs 08/29/22 11:36 08/29/22 21:17 Procedures Date of Service Date of Service: 08/31/22 Assessment & Plan Assessment and plan (1) ESRD needing dialysis: Status: Acute Assessment and Plan: Usually gets HD on MWF Had compliance issues with HD Had HD 2 days ago; Due today Renal Diet; Phos binders with meals Has Anemia of chronic disease May need EPO during this visit Progress Note: Quality Stroke Does the patient have a stroke diagnosis?: No
--- NOTE | 2022-08-31 12:05 | MHC.CLN ---
F/U DIET LIBERALIZED TO REGULAR PER MD RX. LAST DIALYSIS 08/29 WITH HD SCHEDULED FOR TODAY. HX REFUSING DIALYSIS. INTAKE VARIABLE, WITH MANY MEALS POOR. FOLLOW FOR INTAKE, DIALYSIS, AND LABS.
--- NOTE | 2022-08-31 14:45 | HO.PM.IMPN ---
Subjective Subjective Date of Service: 08/31/22 Interval History: Patient resting in bed, awake alert, refusing medications and hemodialysis, refusing breakfast, offers no acute complaints sitter at bedside noted to have no nausea, no vomiting, vitals are stable Review of Systems Unable to obtain due to mental status. Physical Exam Vital Signs: Vital Signs: Last Vital Signs Temp 97.2 F 08/31/22 08:03 Pulse 72 08/31/22 08:03 Resp 20 08/31/22 08:03 BP 113/75 08/31/22 08:03 Pulse Ox 97 08/31/22 08:03 O2 Del Method Room Air 08/31/22 08:03 BMI result Body Mass Index 28.7 Const: Other: General? resting in bed, in no acute distress, generalized tremor.? Neck supple no JVD. CVS? regular rate rhythm, Respiratory lungs clear to auscultation, no respiratory distress, no wheeze, no rhonchi. Gastrointestinal abdomen soft, non tender, bowel sounds audible,no guarding , no rigidity. Extremities no edema. Skin no rash Neuro moving all 4 extremities, speech clear, generalized tremors. Objective Data Active Medications Acetaminophen (Acetaminophen 325 Mg Tablet) 650 mg PO Q6H PRN PRN Reason: Pain, Mild (Pain Scale 1-3) Aspirin (Aspirin 81 Mg Tab.Chew) 81 mg PO DAILY [facility] Last Admin: 08/31/22 09:37 Dose: Not Given Documented By: JEFE Non-Admin Reason: Patient Refused Benztropine Mesylate (Benztropine Mesylate 1 Mg Tablet) 1 mg PO BID [facility] Last Admin: 08/31/22 09:37 Dose: Not Given Documented By: JEFE Non-Admin Reason: Patient Refused Divalproex Sodium (Divalproex Sodium Er 500 Mg Tab.Er.24h) 1,000 mg PO BEDTIME [facility] Last Admin: 08/30/22 21:29 Dose: Not Given Documented By: SEKOU Non-Admin Reason: Patient Refused Docusate Sodium (Docusate Sodium 100 Mg Capsule) 100 mg PO DAILY PRN PRN Reason: Constipation Ferrous Sulfate (Ferrous Sulfate 300 Mg/5 Ml Liquid) 300 mg PO TIDWM [facility] Last Admin: 08/31/22 13:07 Dose: Not Given Documented By: JEFE Non-Admin Reason: Patient Refused Haloperidol Lactate (Haloperidol Lactate 5 Mg/Ml Vial) 2.5 mg IM Q6H PRN PRN Reason: anxiety/restlessness Heparin Sodium (Porcine) (Heparin Sodium,Porcine 5,000 Unit/Ml Vial) 5,000 unit SUBCUT Q12H [facility] Last Admin: 08/31/22 06:20 Dose: Not Given Documented By: SEKOU Non-Admin Reason: Patient Refused Lorazepam (Lorazepam 2 Mg/Ml Vial) 2 mg IM Q8H PRN PRN Reason: Anxiety Last Admin: 08/29/22 18:08 Dose: 2 mg Documented By: DALLASEMA Lorazepam (Lorazepam 2 Mg/Ml Vial) 0.25 mg IVPUSH Q8H [facility] Last Admin: 08/31/22 13:11 Dose: Not Given Documented By: JEFE Non-Admin Reason: Patient Refused Non-Formulary Medication (Thiothixene) 15 mg PO DAILY [facility] Last Admin: 08/31/22 09:37 Dose: Not Given Documented By: JEFE Non-Admin Reason: Patient Refused Olanzapine (Olanzapine 7.5 Mg Tablet) 15 mg PO BEDTIME [facility] Last Admin: 08/30/22 21:29 Dose: Not Given Documented By: SEKOU Non-Admin Reason: Patient Refused Ondansetron HCl (Ondansetron Hcl 4 Mg/2 Ml Vial) 4 mg IVPUSH Q8H PRN PRN Reason: Nausea and Vomiting Sodium Chloride (0.9 % Sodium Chloride Flush 3 Ml Syringe) 3 ml IVFLUSH QSNDFT [facility] Last Admin: 08/31/22 08:46 Dose: 3 ml Documented By: JEFE Sodium Chloride (0.9 % Sodium Chloride Flush 3 Ml Syringe) [facility] Last Admin: 08/31/22 08:46 Dose: Not Given Documented By: JEFE Non-Admin Reason: Previously Administered Labs 08/29/22 11:36 08/29/22 21:17 Assessment and Plan (1) Schizoaffective disorder, bipolar type: Status: Acute (2) ESRD (end stage renal disease): Status: Acute (3) Dialysis patient: Status: Acute Plan Pt is a 67-year-old male with a PMH significant for?schizoaffective disorder bipolar type, ESRD on HD M/W/F patient is a transfer from [facility] after he began refusing dialysis. 1.Schizoaffective disorder bipolar type with flare -noted to be catatonic, refusing medications Case discussed with Dr.Alex Fernandez he will adjust psychiatric medications. Healthcare proxy invoked ,patient's is HCP, psychiatry will start the process of affirmation of the healthcare proxy at court,.At this moment, psych cant. treat him with antipsychotics against his will unless it is an emergency. home medications Cogentin, ferrous sulfate, Depakote 1000 at bedtime, Zyprexa and thiothixene however patient refusing by mouth medications. 2.ESRD on HD M/W/F -2.5hrs HD 08/27, repeat HD on 08/29 repeat cret and potassium improved , being followed by Nephrology, Patient declined hemodialysis today,on hemodialysis Monday,Monday and Monday. Case discussed with Dr. Fernandez,he rec. to sedate pt. with Ativan 3 mg IVP and Haloperidol 10 mg IM prior to hemodialysis on Monday. Full Code Zeina Requires ongoing hospitalization for further management and treatment of schizoaffective disorder with flare and also for hemodialysis. Time Spent With Patient Time: Total time managing care of this patient today ____ minutes. Quality Stroke Does the patient have a stroke diagnosis?: No VTE Prior VTE?: No VTE Risk Level:: Medical - moderate - high VTE Device Contraindication: Treatment Not Indicated VTE Drug Contraindication: N/A - Med Ordered
--- NOTE | 2022-08-31 15:35 | PC.NURSE ---
Pt lying in bed and alternating to a dangle at bedside for most of day. Refused medications today po and IV. Refused dialysis. Dialysis nurse down to speak with pt, spoke with pt on phone to attempt to encourage pt to have HD treatment. Pt continues to refuse. Dr Butler made aware, spoke with Psych MD. Plan in place for medications to be given if pt refuses next dialysis treatment. Pt offered food and drinks several times throughout the day but refused
--- NOTE | 2022-08-31 16:25 | MHC.CM.PN ---
Patient refuses meds food drink and HD. Patient has a HCP invoked. CM director reports that she spoke with [facility] fine dining server Myriam Sal. She has instructed that risk be contacted to determine if HCP needs to be affirmed through the courts. CM will continue to follow.
--- NOTE | 2022-08-31 16:28 | P.CDIM_ITS ---
PROVIDER RESPONSE TEXT: To clarify, the appropriate diagnosis supported by the clinical indicators: Hyperkalemia QUERY TEXT: PHYSICIAN'S DOCUMENTATION REQUEST Date of Query: 08/31/2022 09:17 AM EDT Patient Name: Marco Holcomb Admit Date: 08/25/2022 Dear Carmela Butler, A review of the medical record indicates additional documentation may be needed. Please review below and update the documentation accordingly. Clinical Indicators: LAB FINDINGS: 08/29 - potassium 5.5 H Lokelma offered, patient declined. Based on the above, is there a diagnosis that correlates with the lab findings above: Hyperkalemia Labs indicate a diagnosis of (please specify) Other Unable to determine Other (explain)Clinically unable to determine (explain)Thank you, Sandra Bui, CCS, CDIS Use of terms such as suspected, likely, concern for, or probable (associated with a specific diagnosi s that is being evaluated, monitored, or treated as if it exists) are acceptable and can be coded in the inpatient se tting, when documented at the time of discharge. Please use your independent medical judgment in providing your response. THIS QUERY IS PART OF THE PERMANENT MEDICAL RECORD
--- NOTE | 2022-09-01 09:53 | HO.PM.IMPN ---
Subjective Subjective Date of Service: 09/01/22 Interval History: Patient laying in bed, awake alert, refusing medications and hemodialysis, refusing breakfast, did not want to talk sitter at bedside Review of Systems Unable to obtain due to mental status. Physical Exam Vital Signs: Vital Signs: Last Vital Signs Temp 97.2 F 08/31/22 08:03 Pulse 72 08/31/22 08:03 Resp 20 08/31/22 08:03 BP 113/75 08/31/22 08:03 Pulse Ox 97 08/31/22 08:03 O2 Del Method Room Air 08/31/22 08:03 BMI result Body Mass Index 28.7 Const: Other: General? resting in bed, in no acute distress, generalized tremor mainly upper extremities Neck supple no JVD. CVS? regular rate rhythm, Respiratory lungs clear to auscultation, no respiratory distress, no wheeze, no rhonchi. Gastrointestinal abdomen soft, non tender, bowel sounds audible,no guarding , no rigidity. Extremities no edema. Skin no rash Neuro moving all 4 extremities, speech clear, generalized tremors. Objective Data Active Medications Acetaminophen (Acetaminophen 325 Mg Tablet) 650 mg PO Q6H PRN PRN Reason: Pain, Mild (Pain Scale 1-3) Aspirin (Aspirin 81 Mg Tab.Chew) 81 mg PO DAILY [facility] Last Admin: 09/01/22 09:17 Dose: Not Given Documented By: BERNARD Non-Admin Reason: Patient Refused Benztropine Mesylate (Benztropine Mesylate 1 Mg Tablet) 1 mg PO BID [facility] Last Admin: 09/01/22 09:17 Dose: Not Given Documented By: BERNARD Non-Admin Reason: Patient Refused Divalproex Sodium (Divalproex Sodium Er 500 Mg Tab.Er.24h) 1,000 mg PO BEDTIME [facility] Last Admin: 08/31/22 22:05 Dose: Not Given Documented By: AUTUMN Non-Admin Reason: Patient Refused Docusate Sodium (Docusate Sodium 100 Mg Capsule) 100 mg PO DAILY PRN PRN Reason: Constipation Ferrous Sulfate (Ferrous Sulfate 300 Mg/5 Ml Liquid) 300 mg PO TIDWM [facility] Last Admin: 09/01/22 09:17 Dose: Not Given Documented By: BERNARD Non-Admin Reason: Patient Refused Haloperidol Lactate (Haloperidol Lactate 5 Mg/Ml Vial) 2.5 mg IM Q6H PRN PRN Reason: anxiety/restlessness Heparin Sodium (Porcine) (Heparin Sodium,Porcine 5,000 Unit/Ml Vial) 5,000 unit SUBCUT Q12H [facility] Last Admin: 09/01/22 06:19 Dose: Not Given Documented By: AUTUMN Non-Admin Reason: Patient Refused Lorazepam (Lorazepam 2 Mg/Ml Vial) 2 mg IM Q8H PRN PRN Reason: Anxiety Last Admin: 08/29/22 18:08 Dose: 2 mg Documented By: BENJA Lorazepam (Lorazepam 2 Mg/Ml Vial) 0.25 mg IVPUSH Q8H [facility] Last Admin: 09/01/22 06:19 Dose: Not Given Documented By: AUTUMN Non-Admin Reason: Patient Refused Non-Formulary Medication (Thiothixene) 15 mg PO DAILY [facility] Last Admin: 09/01/22 09:18 Dose: Not Given Documented By: BERNARD Non-Admin Reason: Patient Refused Olanzapine (Olanzapine 7.5 Mg Tablet) 15 mg PO BEDTIME [facility] Last Admin: 08/31/22 22:05 Dose: Not Given Documented By: AUTUMN Non-Admin Reason: Patient Refused Ondansetron HCl (Ondansetron Hcl 4 Mg/2 Ml Vial) 4 mg IVPUSH Q8H PRN PRN Reason: Nausea and Vomiting Sodium Chloride (0.9 % Sodium Chloride Flush 3 Ml Syringe) [facility] Last Admin: 09/01/22 09:17 Dose: Not Given Documented By: BERNARD Non-Admin Reason: Patient Refused Sodium Chloride (0.9 % Sodium Chloride Flush 3 Ml Syringe) 3 ml IVFLUSH QSWVFT [facility] Last Admin: 09/01/22 07:28 Dose: Not Given Documented By: BERNARD Non-Admin Reason: Duplicate Order Labs 08/29/22 11:36 08/29/22 21:17 Assessment and Plan (1) ESRD needing dialysis: Status: Acute (2) Schizoaffective disorder, bipolar type: Status: Acute Plan Pt is a 67-year-old male with a PMH significant for?schizoaffective disorder bipolar type, ESRD on HD M/W/F patient is a transfer from [facility] after he began refusing dialysis. # Catatonia 2/2 Schizoaffective disorder w bipolar disease with flare refusing medications psych following HCP invoked ,patient's is HCP, psychiatry will start the process of affirmation of the healthcare proxy at court,. home medications Cogentin, ferrous sulfate, Depakote 1000 at bedtime, Zyprexa and thiothixene however patient refusing by mouth medications. # ESRD on HD M/W/F 2.5hrs HD 08/27, repeat HD on 08/29 repeat cret and potassium improved , being followed by Nephrology, Patient declined hemodialysis 08/31,on hemodialysis Monday,Monday and Monday. Case discussed with Dr. Fernandez,he rec. to sedate pt. with Ativan 3 mg IVP and Haloperidol 10 mg IM prior to hemodialysis on Monday. To discuss plan with nephrology Full Code Zeina Requires ongoing hospitalization for further management and treatment of schizoaffective disorder with flare and also need for hemodialysis. Time Spent With Patient Time: Total time managing care of this patient today ____ minutes. Quality Stroke Does the patient have a stroke diagnosis?: No VTE Prior VTE?: No VTE Risk Level:: Medical - moderate - high VTE Device Contraindication: Treatment Not Indicated VTE Drug Contraindication: N/A - Med Ordered
--- NOTE | 2022-09-01 11:55 | PM.PNNEP ---
Subjective Subjective Date of Service: 09/01/22 Interval history: Refusing medications , hemodialysis. All recent data reviewed. Due HD tomorrow Physical Exam Vital Signs: Vital Signs: Last Vital Signs Temp 97.2 F 08/31/22 08:03 Pulse 72 08/31/22 08:03 Resp 20 08/31/22 08:03 BP 113/75 08/31/22 08:03 Pulse Ox 97 08/31/22 08:03 O2 Del Method Room Air 08/31/22 08:03 BMI result Body Mass Index 28.7 Const: General: no acute distress Eyes: EOM: EOMs intact bilaterally Neck: Neck: Yes supple Resp: Auscultation: diminished lung sounds Cardio: Rate: regular rate GI: Palpation (GI): Soft to palpation Skin: General skin exam: no rashes or lesions noted Neuro: General: moves all extremities Objective Data Labs 08/29/22 11:36 08/29/22 21:17 Procedures Date of Service Date of Service: 09/01/22 Assessment & Plan Assessment and plan (1) ESRD needing dialysis: Status: Acute Assessment and Plan: Usually gets HD on MWF Had compliance issues with HD Had HD 3 days ago; Due tomorrow Needs to medicate prior to HD Renal Diet; Phos binders with meals Has Anemia of chronic disease May need EPO during this visit Progress Note: Quality Stroke Does the patient have a stroke diagnosis?: No
--- NOTE | 2022-09-01 12:38 | MHC.CM.PN ---
Medical and Psychiatric care team, nursing, Case management and manager visual met to discuss care plan moving forward for patient. - Continue with IM/IV medication regimen currently ordered for dialysis sessions as appropriate w/ goal to improve pt's mental status - Avoid IM/IV medications w/ patient refusal of PO medications - Continue w/ steps to affirm HCP Called placed to Myriam Sal office- spoke w/ Maria G who is covering the case. She received affirmation paperwork for Nila-psych team, this morning., Awaiting the originals to file for a date with the courts.
[2022-09-01] MEDS: Haloperidol Lactate 5 MG/ML VIAL 10 MG IM (13:30)
[2022-09-01] MEDS: LORazepam 2 MG/ML VIAL IM (13:47)
--- NOTE | 2022-09-01 15:26 | PC.NURSE ---
Pt scheduled for dialysis. Pt refusing dialysis. Pt medicated by Damion Brewer RN per Dr Guillory with 10 mg Haldol IM and 2mg Ativan IM. Pt calm enough for transport to dialysis. Pt currently in dialysis. present and agreed with plan.
--- NOTE | 2022-09-02 13:31 | HO.PM.IMPN ---
Subjective Subjective Date of Service: 09/02/22 Interval History: Patient laying in bed awake alert when talking to, stating that medications did not help him and doesnt want to do dialysis 2 days in row refusing medications this morning refusing meals and eats small amount of food sitter at bedside no overnight events Review of Systems Review of Systems: Yes all other systems are reviewed and are negative Physical Exam Vital Signs: Vital Signs: Last Vital Signs Temp 97.2 F 08/31/22 08:03 Pulse 72 08/31/22 08:03 Resp 20 08/31/22 08:03 BP 113/75 08/31/22 08:03 Pulse Ox 97 08/31/22 08:03 O2 Del Method Room Air 08/31/22 08:03 BMI result Body Mass Index 28.7 Const: Other: General? resting in bed, in no acute distress, generalized tremor mainly upper extremities Neck supple no JVD. CVS? regular rate rhythm, Respiratory lungs clear to auscultation, no respiratory distress, no wheeze, no rhonchi. Gastrointestinal abdomen soft, non tender, bowel sounds audible,no guarding , no rigidity. Extremities no edema. Skin no rash Neuro moving all 4 extremities, speech clear, generalized tremors. Objective Data Active Medications Acetaminophen (Acetaminophen 325 Mg Tablet) 650 mg PO Q6H PRN PRN Reason: Pain, Mild (Pain Scale 1-3) Aspirin (Aspirin 81 Mg Tab.Chew) 81 mg PO DAILY [facility] Last Admin: 09/02/22 10:05 Dose: Not Given Documented By: BERNARD Non-Admin Reason: Patient Refused Benztropine Mesylate (Benztropine Mesylate 1 Mg Tablet) 1 mg PO BID [facility] Last Admin: 09/02/22 10:05 Dose: Not Given Documented By: BERNARD Non-Admin Reason: Patient Refused Divalproex Sodium (Divalproex Sodium Er 500 Mg Tab.Er.24h) 1,000 mg PO BEDTIME [facility] Last Admin: 09/01/22 22:01 Dose: Not Given Documented By: AUTUMN Non-Admin Reason: Patient Refused Docusate Sodium (Docusate Sodium 100 Mg Capsule) 100 mg PO DAILY PRN PRN Reason: Constipation Ferrous Sulfate (Ferrous Sulfate 300 Mg/5 Ml Liquid) 300 mg PO TIDWM [facility] Last Admin: 09/02/22 11:56 Dose: Not Given Documented By: BERNARD Non-Admin Reason: Patient Refused Haloperidol Lactate (Haloperidol Lactate 5 Mg/Ml Vial) 2.5 mg IM Q6H PRN PRN Reason: anxiety/restlessness Haloperidol Lactate (Haloperidol Lactate 5 Mg/Ml Vial) 10 mg IM ONCE PRN PRN Reason: Agitation at time of dialysis Last Admin: 09/01/22 13:30 Dose: 10 mg Documented By: CHALINO Heparin Sodium (Porcine) (Heparin Sodium,Porcine 5,000 Unit/Ml Vial) 5,000 unit SUBCUT Q12H [facility] Last Admin: 09/02/22 06:20 Dose: Not Given Documented By: NATO Non-Admin Reason: Patient Refused Lorazepam (Lorazepam 2 Mg/Ml Vial) 2 mg IM Q8H PRN PRN Reason: Anxiety Last Admin: 09/01/22 13:47 Dose: 2 mg Documented By: CHALINO Lorazepam (Lorazepam 2 Mg/Ml Vial) 0.25 mg IVPUSH Q8H [facility] Last Admin: 09/02/22 06:20 Dose: Not Given Documented By: NATO Non-Admin Reason: Patient Refused Lorazepam (Lorazepam 2 Mg/Ml Vial) 3 mg IVPUSH ONCE PRN PRN Reason: Agitation at time of dialysis Non-Formulary Medication (Thiothixene) 15 mg PO DAILY [facility] Last Admin: 09/02/22 10:05 Dose: Not Given Documented By: BERNARD Non-Admin Reason: Patient Refused Olanzapine (Olanzapine 7.5 Mg Tablet) 15 mg PO BEDTIME [facility] Last Admin: 09/01/22 22:01 Dose: Not Given Documented By: AUTUMN Non-Admin Reason: Patient Refused Ondansetron HCl (Ondansetron Hcl 4 Mg/2 Ml Vial) 4 mg IVPUSH Q8H PRN PRN Reason: Nausea and Vomiting Sodium Chloride (0.9 % Sodium Chloride Flush 3 Ml Syringe) 3 ml IVFLUSH QSALFT [facility] Last Admin: 09/02/22 09:05 Dose: Not Given Documented By: BERNARD Non-Admin Reason: Patient Refused Sodium Chloride (0.9 % Sodium Chloride Flush 3 Ml Syringe) 3 ml IVFLUSH QSHIFT [facility] Last Admin: 09/02/22 07:14 Dose: Not Given Documented By: BERNARD Non-Admin Reason: Duplicate Order Labs 08/29/22 11:36 08/29/22 21:17 Assessment and Plan (1) ESRD needing dialysis: Status: Acute (2) Schizoaffective disorder, bipolar type: Status: Acute Plan Pt is a 67-year-old male with a PMH significant for?schizoaffective disorder bipolar type, ESRD on HD // patient is a transfer from [facility] after he began refusing dialysis. # Catatonia 2/2 Schizoaffective disorder w bipolar disease with flare refusing medications psych following , to discuss medications HCP invoked ,patient's is HCP, psychiatry will start the process of affirmation of the healthcare proxy at court,. home medications Cogentin, ferrous sulfate, Depakote 1000 at bedtime, Zyprexa and thiothixene however patient refusing by mouth medications. # ESRD on HD // 2.5hrs HD 08/27, repeat HD on 08/29 repeat cret and potassium improved , being followed by Nephrology, HD on Monday,Monday and Monday. Case discussed with Dr. Fernandez,he rec. to sedate pt. with Ativan 3 mg IVP and Haloperidol 10 mg IM prior to hemodialysis as a life saving measure if needed. discuss plan with nephrology, next dialysis Monday Full Code Zeina Requires ongoing hospitalization for further management and treatment of schizoaffective disorder with flare and also need for hemodialysis. Time Spent With Patient Time: Total time managing care of this patient today ____ minutes. Quality Stroke Does the patient have a stroke diagnosis?: No VTE Prior VTE?: No VTE Risk Level:: Medical - moderate - high VTE Device Contraindication: Treatment Not Indicated VTE Drug Contraindication: N/A - Med Ordered
--- NOTE | 2022-09-02 13:45 | MHC.CLN ---
F/U DIET LIBERALIZED TO REGULAR PER MD RX. LAST DIALYSIS 09/01. HX REFUSING DIALYSIS. INTAKE CONTINUES USUALLY POOR. FOLLOW FOR INTAKE, DIALYSIS, AND LABS.
--- NOTE | 2022-09-02 14:48 | P.CNHOSGPS_ITS ---
History of Present Illness Data of Consult Service Date: 09/02/22 Requesting physician: Martir Guillory Primary Care Provider: CARLOS Pretty [facility] Reason for consult: Reassessment of mental status The patient is a 67-year-old male, male, with a prior history of bipolar disorder, end-stage renal disease on dialysis transferred from [address] psychiatric unit to medical unit since the patient had been on compliant with dialysis. Please see the [facility] prior notes for further details. Yesterday we had a meeting with the administration of the hospital and the legal status of the patient. At this moment the patient does not have capacity to take informed decisions and we will his healthcare proxy. The healthcare proxy is his and she wants to be medically and psychiatrically treated. It is obvious that the patient does not have capacity to take informed decisions and he needs to have dialysis as a life-saving treatment. The patient had been on compliant with antipsychotics all this time. We have a long conversation today and the patient reported that he wants to go home, that he will continue treatment with his primary care. Even though, his I pointed out that he had been noncompliant with his medications and he needs to take it. Also I remain him that he had been noncompliant with dialysis and that impairs his ability to take informed decisions due to delirium. [facility] Medical History Anemia Anemia Bipolar disorder Dialysis patient Hypertension Functional capacity: bed bound Social History Household Members: Spouse Housing: Unknown / Unable to assess Do you presently have visiting nurse or other home services: No Unable to assess alcohol history related to: Unable to respond Alcohol intake: never Patient Tobacco Use Status: Never used Tobacco Second Hand Smoke Exposure: No Use of substances other than those prescribed or required for medical reasons: Unable to respond Currently Displaying Signs/Symptoms of Drug Intoxication Withdrawal: No Advance Directives: No Advance Directives Information Provided: Yes Recently lost weight without trying: Unsure Eating poorly because of decreased appetite: No Poor oral hygiene: No service: No Current occupational status: disabled Sexual orientation: Straight/Heterosexual Meds Allergies Allergy/AdvReac Type Severity Reaction Status Date / Time No Known Allergies Allergy Mild NOT Verified 08/22/22 15:55 APPLICABLE Active Medications: Current Medications Acetaminophen (Acetaminophen 325 Mg Tablet) 650 mg PO Q6H PRN PRN Reason: Pain, Mild (Pain Scale 1-3) Aspirin (Aspirin 81 Mg Tab.Chew) 81 mg PO DAILY [facility] Last Admin: 09/02/22 10:05 Dose: Not Given Benztropine Mesylate (Benztropine Mesylate 1 Mg Tablet) 1 mg PO BID [facility] Last Admin: 09/02/22 10:05 Dose: Not Given Divalproex Sodium (Divalproex Sodium Er 500 Mg Tab.Er.24h) 1,000 mg PO BEDTIME [facility] Last Admin: 09/01/22 22:01 Dose: Not Given Docusate Sodium (Docusate Sodium 100 Mg Capsule) 100 mg PO DAILY PRN PRN Reason: Constipation Ferrous Sulfate (Ferrous Sulfate 300 Mg/5 Ml Liquid) 300 mg PO TIDWM [facility] Last Admin: 09/02/22 11:56 Dose: Not Given Haloperidol Lactate (Haloperidol Lactate 5 Mg/Ml Vial) 2.5 mg IM Q6H PRN PRN Reason: anxiety/restlessness Haloperidol Lactate (Haloperidol Lactate 5 Mg/Ml Vial) 10 mg IM ONCE PRN PRN Reason: Agitation at time of dialysis Last Admin: 09/01/22 13:30 Dose: 10 mg Heparin Sodium (Porcine) (Heparin Sodium,Porcine 5,000 Unit/Ml Vial) 5,000 unit SUBCUT Q12H [facility] Last Admin: 09/02/22 06:20 Dose: Not Given Lorazepam (Lorazepam 2 Mg/Ml Vial) 2 mg IM Q8H PRN PRN Reason: Anxiety Last Admin: 09/01/22 13:47 Dose: 2 mg Lorazepam (Lorazepam 2 Mg/Ml Vial) 0.25 mg IVPUSH Q8H [facility] Last Admin: 09/02/22 06:20 Dose: Not Given Lorazepam (Lorazepam 2 Mg/Ml Vial) 3 mg IVPUSH ONCE PRN PRN Reason: Agitation at time of dialysis Non-Formulary Medication (Thiothixene) 15 mg PO DAILY [facility] Last Admin: 09/02/22 10:05 Dose: Not Given Olanzapine (Olanzapine 7.5 Mg Tablet) 15 mg PO BEDTIME [facility] Last Admin: 09/01/22 22:01 Dose: Not Given Ondansetron HCl (Ondansetron Hcl 4 Mg/2 Ml Vial) 4 mg IVPUSH Q8H PRN PRN Reason: Nausea and Vomiting Sodium Chloride (0.9 % Sodium Chloride Flush 3 Ml Syringe) 3 ml IVFLUSH QSSDFT [facility] Last Admin: 09/02/22 09:05 Dose: Not Given Sodium Chloride (0.9 % Sodium Chloride Flush 3 Ml Syringe) 3 ml IVFLUSH QSHIFT [facility] Last Admin: 09/02/22 07:14 Dose: Not Given Results Labs 08/29/22 11:36 08/29/22 21:17 Assessment and Plan (1) ESRD needing dialysis: Status: Acute (2) Schizoaffective disorder, bipolar type: Status: Acute Plan Elderly male with a past history of schizoaffective disorder bipolar type and end-stage renal disease on dialysis was transferred from [facility] since he was noncompliant of dialysis and he was more delirious. On assessment, the patient still does not have any capacity to take informed decisions and we have in both his upper proxy. Plan 1. Continue with dialysis, the patient cannot refuse dialysis if needed he needs to be sedated as per protocol. 2. Encourage compliance, the patient had been refusing his antipsychotics. 3. We had a a providers meeting yesterday. We have filed on court for a few [place] of healthcare proxy we will have a hearing next week most likely on 09/05. 4. Continue with same treatment. 5. Case discussed with the primary team Time Spent With Patient Time: Total time managing care of this patient today __30__ minutes. Physical Exam Vital Signs: Last Vital Signs Temp 97.2 F 08/31/22 08:03 Pulse 72 08/31/22 08:03 Resp 20 08/31/22 08:03 BP 113/75 08/31/22 08:03 Pulse Ox 97 08/31/22 08:03 O2 Del Method Room Air 08/31/22 08:03 BMI result Body Mass Index 28.7 Neuro Cranial nerves: Yes CN's II-XII intact bilaterally Psych Appearance: disheveled Affect: Depressed mood present and Blunted affect present Attitude: Avoids eye contact (attititude/behavior) and Refuses to answer (attititude/behavior) Thought process: Illogical thought process present, Impoverished thought process present and Loose association thought process present Thought content: Depressive thoughts present and Ideas of reference present (thought content) Insight: Poor insight present (Psych) Judgement: Poor judgement present (Psych)
[2022-09-02 15:14] VITALS: BP 131/61; PULSE 68; RESP 18; TEMP 36.4; O2SAT 97
--- NOTE | 2022-09-02 16:16 | MHC.CM.PN ---
Male 67 from INPT Psych. DP patient will be evaluated by the care team once medically cleared.
--- NOTE | 2022-09-02 16:55 | PC.NURSE ---
Pt refusing all scheduled medications, Dr Guillory aware.
--- NOTE | 2022-09-02 20:19 | PM.PNNEP ---
Subjective Subjective Date of Service: 09/02/22 Interval history: Seen and examined, events noted Physical Exam Vital Signs: Vital Signs: Last Vital Signs Temp 97.5 F 09/02/22 15:14 Pulse 68 09/02/22 15:14 Resp 18 09/02/22 15:14 BP 131/61 09/02/22 15:14 Pulse Ox 97 09/02/22 15:14 O2 Del Method Room Air 09/02/22 15:14 BMI result Body Mass Index 28.7 Const: Other: Awake alert interactive appropriate General: no acute distress Eyes: EOM: EOMs intact bilaterally Neck: Neck: Yes supple Resp: Other: Clear to auscultation bilaterally no rales rhonchi wheezes Auscultation: diminished lung sounds Cardio: Other: No S4; positive S1-S2; no S3 murmurs rubs or gallops Rate: regular rate GI: Other: Soft nontender nondistended normoactive bowel sounds Palpation (GI): Soft to palpation Skin: General skin exam: no rashes or lesions noted Neuro: Other: Cranial nerves 2-12 grossly intact as tested. Motor 5/5 all extremities. Sensation intact. Gait steady General: moves all extremities Extrem: Other: No edema bilaterally Objective Data Labs 08/29/22 11:36 08/29/22 21:17 Procedures Date of Service Date of Service: 09/02/22 Assessment & Plan Assessment and plan (1) ESRD needing dialysis: Status: Acute Assessment and Plan: Usually gets HD on MWF Had compliance issues with HD PLAN for HD 6/3 Needs to medicate prior to HD Renal Diet; Phos binders with meals Has Anemia of chronic disease May need EPO during this visit Time Spent With Patient Time: Total time managing care of this patient today ____ minutes. Progress Note: Quality Stroke Does the patient have a stroke diagnosis?: No
--- NOTE | 2022-09-03 05:42 | PC.NURSE ---
Patient's IV have been removed because it was outdated and pt have been refusing IV flushes for the past 3 days. He also refusing medications. Pt refuse for new IV to be inserted. Dr. Alvarez was notified.
[2022-09-03] MEDS: Haloperidol Lactate 5 MG/ML VIAL 2.5 MG IM (09:30)
[2022-09-03] MEDS: LORazepam 2 MG/ML VIAL IM ×2 (09:31→18:22)
[2022-09-03] MEDS: LORazepam 2 MG/ML VIAL 3 MG IM (12:05)
--- NOTE | 2022-09-03 12:41 | P.PNIM_ITS ---
Subjective Subjective Date of Service: 09/03/22 Interval History: Patient laying in bed did not want to speak this morning refusing medications this morning , refuse new IV as he lost his eats small amount of food sitter at bedside no overnight events Review of Systems Unable to obtain due to mental status. Physical Exam Vital Signs: Vital Signs: Last Vital Signs Temp 97.5 F 09/02/22 15:14 Pulse 68 09/02/22 15:14 Resp 18 09/02/22 15:14 BP 131/61 09/02/22 15:14 Pulse Ox 97 09/02/22 15:14 O2 Del Method Room Air 09/02/22 15:14 BMI result Body Mass Index 28.7 Const: Other: General? resting in bed, in no acute distress, generalized tremor mainly upper extremities Neck supple no JVD. CVS? regular rate rhythm, Respiratory lungs clear to auscultation, no respiratory distress, no wheeze, no rhonchi. Gastrointestinal abdomen soft, non tender, bowel sounds audible,no guarding , no rigidity. Extremities no edema. Skin no rash Neuro moving all 4 extremities, speech clear, generalized tremors. Objective Data Active Medications Acetaminophen (Acetaminophen 325 Mg Tablet) 650 mg PO Q6H PRN PRN Reason: Pain, Mild (Pain Scale 1-3) Aspirin (Aspirin 81 Mg Tab.Chew) 81 mg PO DAILY [facility] Last Admin: 09/03/22 10:03 Dose: Not Given Documented By: BEBE Non-Admin Reason: Patient Refused Benztropine Mesylate (Benztropine Mesylate 1 Mg Tablet) 1 mg PO BID [facility] Last Admin: 09/03/22 10:03 Dose: Not Given Documented By: BEBE Non-Admin Reason: Patient Refused Divalproex Sodium (Divalproex Sodium Er 500 Mg Tab.Er.24h) 1,000 mg PO BEDTIME [facility] Last Admin: 09/02/22 21:13 Dose: Not Given Documented By: ANGELES Non-Admin Reason: Patient Refused Docusate Sodium (Docusate Sodium 100 Mg Capsule) 100 mg PO DAILY PRN PRN Reason: Constipation Ferrous Sulfate (Ferrous Sulfate 300 Mg/5 Ml Liquid) 300 mg PO TIDWM [facility] Last Admin: 09/03/22 09:08 Dose: Not Given Documented By: BEBE Non-Admin Reason: Patient Refused Haloperidol Lactate (Haloperidol Lactate 5 Mg/Ml Vial) 2.5 mg IM Q6H PRN PRN Reason: anxiety/restlessness Last Admin: 09/03/22 09:30 Dose: 2.5 mg Documented By: BEBE Haloperidol Lactate (Haloperidol Lactate 5 Mg/Ml Vial) 10 mg IM ONCE PRN PRN Reason: Agitation in dialysis Heparin Sodium (Porcine) (Heparin Sodium,Porcine 5,000 Unit/Ml Vial) 5,000 unit SUBCUT Q12H [facility] Last Admin: 09/03/22 05:45 Dose: Not Given Documented By: ANGELES Non-Admin Reason: Patient Refused Lorazepam (Lorazepam 2 Mg/Ml Vial) 2 mg IM Q8H PRN PRN Reason: Anxiety Last Admin: 09/03/22 09:31 Dose: 2 mg Documented By: BEBE Lorazepam (Lorazepam 2 Mg/Ml Vial) 3 mg IM ONCE PRN PRN Reason: Agitation with dialysis Last Admin: 09/03/22 12:05 Dose: 3 mg Documented By: BEBE Non-Formulary Medication (Thiothixene) 15 mg PO DAILY [facility] Last Admin: 09/03/22 10:03 Dose: Not Given Documented By: BEBE Non-Admin Reason: Patient Refused Olanzapine (Olanzapine 7.5 Mg Tablet) 15 mg PO BEDTIME [facility] Last Admin: 09/02/22 21:13 Dose: Not Given Documented By: ANGELES Non-Admin Reason: Patient Refused Ondansetron HCl (Ondansetron Hcl 4 Mg/2 Ml Vial) 4 mg IVPUSH Q8H PRN PRN Reason: Nausea and Vomiting Sodium Chloride (0.9 % Sodium Chloride Flush 3 Ml Syringe) 3 ml IVFLUSH [facility] Last Admin: 09/03/22 09:07 Dose: Not Given Documented By: BEBE Non-Admin Reason: No Access Sodium Chloride (0.9 % Sodium Chloride Flush 3 Ml Syringe) 3 ml IVFLUSH [facility] Last Admin: 09/03/22 09:07 Dose: Not Given Documented By: BEBE Non-Admin Reason: No Access Labs 08/29/22 11:36 08/29/22 21:17 Assessment and Plan (1) ESRD needing dialysis: Status: Acute (2) Schizoaffective disorder, bipolar type: Status: Acute Plan Pt is a 67-year-old male with a PMH significant for?schizoaffective disorder bipolar type, ESRD on HD // patient is a transfer from [facility] after he began refusing dialysis. # [place] 2/2 Schizoaffective disorder w bipolar disease with flare refusing medications psych following , to discuss medications HCP invoked ,patient's is HCP, psychiatry will start the process of affirmation of the healthcare proxy at court,. home medications Cogentin, ferrous sulfate, Depakote 1000 at bedtime, Zyprexa and thiothixene however patient refusing by mouth medications. # ESRD on HD // 2.5hrs HD 08/27, repeat HD on 08/29 repeat cret and potassium improved , being followed by Nephrology, HD on Monday,Monday and Monday. Patient lost IV, refused to place new one Plan for HD today, patient agitated requiring Haldol and Ativan so he can finish HD session and to avoid any possible harm for self or others Case discussed with Dr. Fernandez,he rec. to sedate pt. with Ativan 3 mg and Haloperidol 10 mg IM prior to hemodialysis as a life saving measure if needed. nephrology following Full Code Lovenox Requires ongoing hospitalization for further management and treatment of schizoaffective disorder with flare and also need for hemodialysis. Time Spent With Patient Time: Total time managing care of this patient today ____ minutes. Quality Stroke Does the patient have a stroke diagnosis?: No VTE Prior VTE?: No VTE Risk Level:: Medical - moderate - high VTE Device Contraindication: Treatment Not Indicated VTE Drug Contraindication: N/A - Med Ordered
[2022-09-03] MEDS: Dextrose 5 % and 0.9 % NaCl 1,000 ML 100 ML IVCONT ×2 (14:45→23:46)
[2022-09-03 15:22] VITALS: BP 102/69; PULSE 69; RESP 16; TEMP 36.2; O2SAT 99
--- NOTE | 2022-09-03 16:19 | PM.PNNEP ---
Subjective Subjective Date of Service: 09/03/22 Interval history: Seen and examined, events noted Physical Exam Vital Signs: Vital Signs: Last Vital Signs Temp 97.1 F 09/03/22 15:22 Pulse 69 09/03/22 15:22 Resp 16 09/03/22 15:22 BP 102/69 09/03/22 15:22 Pulse Ox 99 09/03/22 15:22 O2 Del Method Room Air 09/03/22 15:22 BMI result Body Mass Index 28.7 Const: Other: Awake alert interactive appropriate General: no acute distress Eyes: EOM: EOMs intact bilaterally Neck: Neck: Yes supple Resp: Other: Clear to auscultation bilaterally no rales rhonchi wheezes Auscultation: diminished lung sounds Cardio: Other: No S4; positive S1-S2; no S3 murmurs rubs or gallops Rate: regular rate GI: Other: Soft nontender nondistended normoactive bowel sounds Palpation (GI): Soft to palpation Skin: General skin exam: no rashes or lesions noted Neuro: Other: Cranial nerves 2-12 grossly intact as tested. Motor 5/5 all extremities. Sensation intact. Gait steady General: moves all extremities Extrem: Other: No edema bilaterally Objective Data Labs 08/29/22 11:36 08/29/22 21:17 Procedures Date of Service Date of Service: 09/03/22 Assessment & Plan Assessment and plan (1) ESRD needing dialysis: Status: Acute Assessment and Plan: ESRD: usu mwf but off shift d/t refusing HD Psych:cont to refuse on/offf and require psych meds pre HD Anemia MBD of CKD REC: HD today and pre-medicate; cont usu meds Time Spent With Patient Time: Total time managing care of this patient today ____ minutes. Progress Note: Quality Stroke Does the patient have a stroke diagnosis?: No
[2022-09-03] MEDS: Heparin Sodium,Porcine 5,000 UNIT/ML VIAL 5000 UNIT SUBCUT (17:45)
[2022-09-03] MEDS: OLANZapine 10 MG VIAL 5 MG IM (21:36)
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
--- NOTE | 2022-09-04 01:04 | PC.NURSE ---
pt pulled out IV line. Zprexa 5mg is not enough for him to calm down. pt still combative. notified it.
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
--- NOTE | 2022-09-04 10:52 | HO.PM.IMPN ---
Subjective Subjective Date of Service: 09/04/22 Interval History: Patient laying in bed removed IV and was agitated requiring Zyprexa with fair response. more alert and interactive this morning refusing medications this morning Asking for breakfast sitter at bedside no overnight events Review of Systems Review of Systems: Yes all other systems are reviewed and are negative Physical Exam Vital Signs: Vital Signs: Last Vital Signs Temp 97.1 F 09/03/22 15:22 Pulse 69 09/03/22 15:22 Resp 16 09/03/22 15:22 BP 102/69 09/03/22 15:22 Pulse Ox 99 09/03/22 15:22 O2 Del Method Room Air 09/03/22 15:22 BMI result Body Mass Index 28.7 Const: Other: General? alert, interactive, in no acute distress, generalized tremor mainly upper extremities Neck supple no JVD. CVS? regular rate rhythm, Respiratory lungs clear to auscultation, no respiratory distress, no wheeze, no rhonchi. Gastrointestinal abdomen soft, non tender, bowel sounds audible,no guarding , no rigidity. Extremities no edema. Skin no rash Neuro moving all 4 extremities, speech clear, upper extremities tremors. more Objective Data Active Medications Acetaminophen (Acetaminophen 325 Mg Tablet) 650 mg PO Q6H PRN PRN Reason: Pain, Mild (Pain Scale 1-3) Aspirin (Aspirin 81 Mg Tab.Chew) 81 mg PO DAILY [facility] Last Admin: 09/03/22 10:03 Dose: Not Given Documented By: BEBE Non-Admin Reason: Patient Refused Benztropine Mesylate (Benztropine Mesylate 1 Mg Tablet) 1 mg PO BID [facility] Last Admin: 09/03/22 21:45 Dose: Not Given Documented By: NATO Non-Admin Reason: Patient Refused Divalproex Sodium (Divalproex Sodium Er 500 Mg Tab.Er.24h) 1,000 mg PO BEDTIME [facility] Last Admin: 09/03/22 21:45 Dose: Not Given Documented By: NATO Non-Admin Reason: Patient Refused Docusate Sodium (Docusate Sodium 100 Mg Capsule) 100 mg PO DAILY PRN PRN Reason: Constipation Ferrous Sulfate (Ferrous Sulfate 300 Mg/5 Ml Liquid) 300 mg PO TIDWM [facility] Last Admin: 09/03/22 17:41 Dose: Not Given Documented By: BEBE Non-Admin Reason: Patient Refused Haloperidol Lactate (Haloperidol Lactate 5 Mg/Ml Vial) 2.5 mg IM Q6H PRN PRN Reason: anxiety/restlessness Last Admin: 09/03/22 09:30 Dose: 2.5 mg Documented By: BEBE Haloperidol Lactate (Haloperidol Lactate 5 Mg/Ml Vial) 10 mg IM ONCE PRN PRN Reason: Agitation in dialysis Heparin Sodium (Porcine) (Heparin Sodium,Porcine 5,000 Unit/Ml Vial) 5,000 unit SUBCUT Q12H [facility] Last Admin: 09/04/22 05:29 Dose: Not Given Documented By: NATO Non-Admin Reason: Patient Refused Lorazepam (Lorazepam 2 Mg/Ml Vial) 2 mg IM Q8H PRN PRN Reason: Anxiety Last Admin: 09/03/22 18:22 Dose: 2 mg Documented By: BEBE Lorazepam (Lorazepam 2 Mg/Ml Vial) 3 mg IM ONCE PRN PRN Reason: Agitation with dialysis Last Admin: 09/03/22 12:05 Dose: 3 mg Documented By: BEBE Non-Formulary Medication (Thiothixene) 15 mg PO DAILY [facility] Last Admin: 09/03/22 10:03 Dose: Not Given Documented By: BEBE Non-Admin Reason: Patient Refused Olanzapine (Olanzapine 7.5 Mg Tablet) 15 mg PO BEDTIME [facility] Last Admin: 09/03/22 21:44 Dose: Not Given Documented By: NATO Non-Admin Reason: Patient Refused Ondansetron HCl (Ondansetron Hcl 4 Mg/2 Ml Vial) 4 mg IVPUSH Q8H PRN PRN Reason: Nausea and Vomiting Sodium Chloride (0.9 % Sodium Chloride Flush 3 Ml Syringe) 3 ml IVFLUSH [facility] Last Admin: 09/04/22 07:26 Dose: Not Given Documented By: PERLA Non-Admin Reason: No Access Sodium Chloride (0.9 % Sodium Chloride Flush 3 Ml Syringe) 3 ml IVFLUSH [facility] Last Admin: 09/04/22 07:26 Dose: Not Given Documented By: PERLA Non-Admin Reason: No Access Labs 08/29/22 11:36 08/29/22 21:17 Assessment and Plan (1) ESRD needing dialysis: Status: Acute (2) Schizoaffective disorder, bipolar type: Status: Acute Plan Pt is a 67-year-old male with a PMH significant for?schizoaffective disorder bipolar type, ESRD on HD / patient is a transfer from [facility] after he began refusing dialysis. # [place] 2/2 Schizoaffective disorder w bipolar disease with flare More alert and interactive today refusing medications psych to follow to discuss medications HCP invoked ,patient's is HCP, psychiatry will start the process of affirmation of the healthcare proxy at court,. home medications Cogentin, ferrous sulfate, Depakote 1000 at bedtime, Zyprexa and thiothixene however patient refusing by mouth medications. # ESRD on HD 2.5hrs HD 08/27, repeat HD on 09/03 repeat cret and potassium improved , being followed by Nephrology, HD on Monday,Monday and Monday. Patient lost IV, refused to place new one Plan for HD today, patient agitated requiring Haldol and Ativan so he can finish HD session and to avoid any possible harm for self or others Case discussed with Dr. Fernandez,he rec. to sedate pt. with Ativan 3 mg and Haloperidol 10 mg IM prior to hemodialysis as a life saving measure if needed. nephrology following Full Code Lovenox Requires ongoing hospitalization for further management and treatment of schizoaffective disorder with flare and also need for hemodialysis. Time Spent With Patient Time: Total time managing care of this patient today ____ minutes. Quality Stroke Does the patient have a stroke diagnosis?: No VTE Prior VTE?: No VTE Risk Level:: Medical - moderate - high VTE Device Contraindication: Treatment Not Indicated VTE Drug Contraindication: N/A - Med Ordered
--- NOTE | 2022-09-04 12:57 | P.EN_ITS ---
Event Note Date of Service: 09/04/22 Event Note: The patient was reassessed at bedside, his was present. The primary medical team reported the patient to Zyprexa last night and for the very 1st time today in the morning he had breakfast and have some p.o. liquids. The patient had been medicated in order to get his dialysis since he is encephalopathic, unable to take care informed decisions. I talked the patient with his and the patient was perseverative unable to process new information. He stated that he was to go to the [facility] room have a private conversation. I explained him that he is on a private room. He was unable to understand the nature of the discussion. His white wants to be treated she is very worried about his medical status since he is not eating or drinking. We discussed the case with [facility] medical team and apparently, the patient improved slightly with only 1 dose of Zyprexa. Mental Status Exam Hospital gowns, poor eye contact, some involuntary movements. Mood dysphoric affect blunted. Thought process with severe thought blocking, thought content with poverty of content denies active hallucinations or delusions, he looks extremely confused. Insight judgment and impulse control poor. Plan 1. We have a court hearing for her [place] for healthcare proxy for next . We informed his about that on wound waiting for the legal procedure. 2. Continue with Zyprexa at bedtime . 3. We will change the p.r.n. for Zyprexa Zydis. 4. We will continue reassessing him. Time Spent With Patient Time: Total time managing care of this patient today __30__ minutes.
--- NOTE | 2022-09-04 14:46 | PC.NURSE ---
Pt continues to refuse medications and lab draws . Pt does not have IV access Md Guillory aware. Pt remains with a sitter and video monitor. Pt restless at times but able to redirect. Pts Sujata visited at noon for about an hour . pt with diminished po intake will continue to encourage intake.
--- NOTE | 2022-09-04 18:54 | PM.PNNEP ---
Subjective Subjective Date of Service: 09/04/22 Interval history: Seen and examined, events noted Physical Exam Vital Signs: Vital Signs: Last Vital Signs Temp 97.1 F 09/03/22 15:22 Pulse 69 09/03/22 15:22 Resp 16 09/03/22 15:22 BP 102/69 09/03/22 15:22 Pulse Ox 99 09/03/22 15:22 O2 Del Method Room Air 09/03/22 15:22 BMI result Body Mass Index 28.7 Const: Other: Awake alert interactive appropriate General: no acute distress Eyes: EOM: EOMs intact bilaterally Neck: Neck: Yes supple Resp: Other: Clear to auscultation bilaterally no rales rhonchi wheezes Auscultation: diminished lung sounds Cardio: Other: No S4; positive S1-S2; no S3 murmurs rubs or gallops Rate: regular rate GI: Other: Soft nontender nondistended normoactive bowel sounds Palpation (GI): Soft to palpation Skin: General skin exam: no rashes or lesions noted Neuro: Other: Cranial nerves 2-12 grossly intact as tested. Motor 5/5 all extremities. Sensation intact. Gait steady General: moves all extremities Extrem: Other: No edema bilaterally Objective Data Labs 08/29/22 11:36 08/29/22 21:17 Procedures Date of Service Date of Service: 09/04/22 Assessment & Plan Assessment and plan (1) ESRD needing dialysis: Status: Acute Assessment and Plan: ESRD: usu mwf but off shift d/t refusing HD Psych:cont to refuse on/offf and require psych meds pre HD Anemia MBD of CKD REC: HD 3x/wk and pre-medicate; cont usu meds;needs psych eval re: med adjsutment Time Spent With Patient Time: Total time managing care of this patient today ____ minutes. Progress Note: Quality Stroke Does the patient have a stroke diagnosis?: No
--- NOTE | 2022-09-05 07:22 | PC.NURSE ---
pt still refusing medications but he was cooperative at night , had late snack and went back to bed
--- NOTE | 2022-09-05 11:37 | MHC.CLN ---
F/U DIET LIBERALIZED TO REGULAR PER MD RX. REQUIRES PSYCH MEDS PRIOR TO DIALYSIS. AVERAGE INTAKE SINCE ADMISSION USING DOCUMENTED MEAL PERCENTAGES IS 25%. MD AWARE OF USUALLY POOR PO WITH SOME IMPROVEMENT NOTED. ADDING ENSURE BID TO PROMOTE NUTRITIONAL INTAKE. PROVIDES 700 KCALS, 40 G PROTEIN. FOLLOW FOR INTAKE, DIALYSIS, AND LABS.
--- NOTE | 2022-09-05 12:09 | HO.PM.IMPN ---
Subjective Subjective Date of Service: 09/05/22 Interval History: Patient laying in bed alert and interactive more than before refusing medications this morning sitter at bedside no overnight events Review of Systems Review of Systems: Yes all other systems are reviewed and are negative Physical Exam Vital Signs: Vital Signs: Last Vital Signs Temp 97.1 F 09/03/22 15:22 Pulse 69 09/03/22 15:22 Resp 16 09/03/22 15:22 BP 102/69 09/03/22 15:22 Pulse Ox 99 09/03/22 15:22 O2 Del Method Room Air 09/03/22 15:22 BMI result Body Mass Index 28.7 Const: Other: General? alert, interactive, in no acute distress, generalized tremor mainly upper extremities Neck supple no JVD. CVS? regular rate rhythm, Respiratory lungs clear to auscultation, no respiratory distress, no wheeze, no rhonchi. Gastrointestinal abdomen soft, non tender, bowel sounds audible,no guarding , no rigidity. Extremities no edema. Skin no rash Neuro moving all 4 extremities, speech clear, upper extremities tremors. more Objective Data Active Medications Acetaminophen (Acetaminophen 325 Mg Tablet) 650 mg PO Q6H PRN PRN Reason: Pain, Mild (Pain Scale 1-3) Aspirin (Aspirin 81 Mg Tab.Chew) 81 mg PO DAILY [facility] Last Admin: 09/05/22 09:13 Dose: Not Given Documented By: HELGA Non-Admin Reason: Patient Refused Benztropine Mesylate (Benztropine Mesylate 1 Mg Tablet) 1 mg PO BID [facility] Last Admin: 09/05/22 09:13 Dose: Not Given Documented By: EHLGA Non-Admin Reason: Patient Refused Divalproex Sodium (Divalproex Sodium Er 500 Mg Tab.Er.24h) 1,000 mg PO BEDTIME [facility] Last Admin: 09/04/22 22:24 Dose: Not Given Documented By: AUTUMN Non-Admin Reason: Patient Refused Docusate Sodium (Docusate Sodium 100 Mg Capsule) 100 mg PO DAILY PRN PRN Reason: Constipation Ferrous Sulfate (Ferrous Sulfate 300 Mg/5 Ml Liquid) 300 mg PO TIDWM [facility] Last Admin: 09/05/22 11:16 Dose: Not Given Documented By: HELGA Non-Admin Reason: Patient Refused Haloperidol Lactate (Haloperidol Lactate 5 Mg/Ml Vial) 2.5 mg IM Q6H PRN PRN Reason: anxiety/restlessness Last Admin: 09/03/22 09:30 Dose: 2.5 mg Documented By: BEBE Haloperidol Lactate (Haloperidol Lactate 5 Mg/Ml Vial) 10 mg IM ONCE PRN PRN Reason: Agitation in dialysis Heparin Sodium (Porcine) (Heparin Sodium,Porcine 5,000 Unit/Ml Vial) 5,000 unit SUBCUT Q12H [facility] Last Admin: 09/05/22 07:17 Dose: Not Given Documented By: HELGA Non-Admin Reason: Patient Refused Lorazepam (Lorazepam 2 Mg/Ml Vial) 2 mg IM Q8H PRN PRN Reason: Anxiety Last Admin: 09/03/22 18:22 Dose: 2 mg Documented By: BEBE Lorazepam (Lorazepam 2 Mg/Ml Vial) 3 mg IM ONCE PRN PRN Reason: Agitation with dialysis Last Admin: 09/03/22 12:05 Dose: 3 mg Documented By: BEBE Non-Formulary Medication (Thiothixene) 15 mg PO DAILY [facility] Last Admin: 09/05/22 09:13 Dose: Not Given Documented By: HELGA Non-Admin Reason: Patient Refused Olanzapine (Olanzapine Odt 10 Mg Tab.Rapdis) 5 mg TRANSLINGU DAILY [facility] Last Admin: 09/05/22 09:13 Dose: Not Given Documented By: HELGA Non-Admin Reason: Patient Refused Olanzapine (Olanzapine Odt 10 Mg Tab.Rapdis) 15 mg TRANSLINGU BEDTIME [facility] Last Admin: 09/04/22 22:24 Dose: Not Given Documented By: AUTUMN Non-Admin Reason: Patient Refused Ondansetron HCl (Ondansetron Hcl 4 Mg/2 Ml Vial) 4 mg IVPUSH Q8H PRN PRN Reason: Nausea and Vomiting Sodium Chloride (0.9 % Sodium Chloride Flush 3 Ml Syringe) 3 ml IVFLUSH QSHIFT [facility] Last Admin: 09/05/22 07:17 Dose: Not Given Documented By: HELGA Non-Admin Reason: No Access Sodium Chloride (0.9 % Sodium Chloride Flush 3 Ml Syringe) 3 ml IVFLUSH QSHIFT [facility] Last Admin: 09/05/22 07:17 Dose: Not Given Documented By: HELGA Non-Admin Reason: No Access Labs 08/29/22 11:36 08/29/22 21:17 Assessment and Plan (1) ESRD needing dialysis: Status: Acute (2) Schizoaffective disorder, bipolar type: Status: Acute (3) FTT (failure to thrive) in adult: Status: Acute Plan Pt is a 67-year-old male with a PMH significant for?schizoaffective disorder bipolar type, ESRD on HD M/W/F patient is a transfer from [facility] after he began refusing dialysis. # Catatonia 2/2 Schizoaffective disorder w bipolar disease with flare More alert and interactive still refusing medications and dialysis psych following re medications HCP invoked ,patient's is HCP, waiting process of affirmation of the healthcare proxy at court, hearing by . Changed to PRN Zyprexa IM for agitation by psych rec. home medications Cogentin, ferrous sulfate, Depakote 1000 at bedtime, Zyprexa and thiothixene however patient refusing by mouth medications. # ESRD on HD // 2.5hrs HD 08/27, repeat HD on 09/03 repeat cret and potassium improved , being followed by Nephrology, HD on TTS during hospital stay, usually on MWF Patient lost IV, refused to place new one if the patient is agitated Psych recommended using Haldol and Ativan PRN so he can finish HD session and to avoid any possible harm for self or others Case discussed with Dr. Fernandez,he rec. to sedate pt. with Ativan 3 mg and Haloperidol 10 mg IM prior to hemodialysis as a life saving measure if needed. nephrology following # FTT in adult refusing to eat adequately Rebar Worker following, Ensure added refusing IV lines, removed the last one . Full Code Lovenox Requires ongoing hospitalization for further management and treatment of schizoaffective disorder with flare and also need for hemodialysis. Time Spent With Patient Time: Total time managing care of this patient today ____ minutes. Quality Stroke Does the patient have a stroke diagnosis?: No VTE Prior VTE?: No VTE Risk Level:: Medical - moderate - high VTE Device Contraindication: Treatment Not Indicated VTE Drug Contraindication: N/A - Med Ordered
--- NOTE | 2022-09-05 13:16 | MHC.CM.PN ---
NO PLAN FOR DISCHARGE TODAY. INPATIENT PSYCH AND CM FOLLOWING
--- NOTE | 2022-09-05 16:24 | P.PNNP_ITS ---
Subjective Subjective Date of Service: 09/05/22 Interval history: Seen and examined, events noted Physical Exam Vital Signs: Vital Signs: Last Vital Signs Temp 97.1 F 09/03/22 15:22 Pulse 69 09/03/22 15:22 Resp 16 09/03/22 15:22 BP 102/69 09/03/22 15:22 Pulse Ox 99 09/03/22 15:22 O2 Del Method Room Air 09/03/22 15:22 BMI result Body Mass Index 28.7 Const: Other: General? alert, interactive, in no acute distress, generalized tremor mainly upper extremities Neck supple no JVD. CVS? regular rate rhythm, Respiratory lungs clear to auscultation, no respiratory distress, no wheeze, no rhonchi. Gastrointestinal abdomen soft, non tender, bowel sounds audible,no guarding , no rigidity. Extremities no edema. Skin no rash Neuro moving all 4 extremities, speech clear, upper extremities tremors. more General: no acute distress Eyes: EOM: EOMs intact bilaterally Neck: Neck: Yes supple Resp: Other: Clear to auscultation bilaterally no rales rhonchi wheezes Auscultation: diminished lung sounds Cardio: Other: No S4; positive S1-S2; no S3 murmurs rubs or gallops Rate: regular rate GI: Other: Soft nontender nondistended normoactive bowel sounds Palpation (GI): Soft to palpation Skin: General skin exam: no rashes or lesions noted Neuro: Other: Cranial nerves 2-12 grossly intact as tested. Motor 5/5 all extremities. Sensation intact. Gait steady General: moves all extremities Cranial nerves: Yes CN's II-XII intact bilaterally Extrem: Other: No edema bilaterally Psych: Other: The patient is wearing hospital gowns, looks disheveled, poor eye contact, despondent. Speech is minimal, selectively mute. Affect blunted. Mood depressed. Thought process with thought blocking. Thought Content internally preoccupied, poverty of content. Insight judgment and impulse control poor Appearance: disheveled Affect: Depressed mood present and Blunted affect present Attitude: Avoids eye contact (attititude/behavior) and Refuses to answer (attititude/behavior) Thought process: Illogical thought process present, Impoverished thought process present and Loose association thought process present Thought content: Depressive thoughts present and Ideas of reference present (thought content) Insight: Poor insight present (Psych) Judgement: Poor judgement present (Psych) Objective Data Labs 08/29/22 11:36 08/29/22 21:17 Procedures Date of Service Date of Service: 09/05/22 Assessment & Plan Assessment and plan (1) ESRD needing dialysis: Status: Acute Assessment and Plan: ESRD: usu mwf but off shift d/t refusing HD--so now on TTS Psych:cont to refuse on/offf and require psych meds pre HD Anemia MBD of CKD REC: HD 3x/wk and pre-medicate; cont usu meds;needs psych eval re: med adj sutment Time Spent With Patient Time: Total time managing care of this patient today ____ minutes. Progress Note: Quality Stroke Does the patient have a stroke diagnosis?: No
[2022-09-06 04:00] VITALS: RESP 20
[2022-09-06] MEDS: Haloperidol Lactate 5 MG/ML VIAL 10 MG IM (10:18)
[2022-09-06] MEDS: LORazepam 2 MG/ML VIAL IM (10:19)
--- NOTE | 2022-09-06 12:36 | HO.PM.IMPN ---
Subjective Subjective Date of Service: 09/06/22 Interval History: Patient laying in bed alert with stimulation refusing medications and dialysis this morning sitter at bedside no overnight events Review of Systems Unable to obtain due to mental status. Physical Exam Vital Signs: Vital Signs: Last Vital Signs Temp 97.1 F 09/03/22 15:22 Pulse 69 09/03/22 15:22 Resp 20 09/06/22 04:00 BP 102/69 09/03/22 15:22 Pulse Ox 99 09/03/22 15:22 O2 Del Method Room Air 09/03/22 15:22 BMI result Body Mass Index 28.7 Const: Other: General? alert, interactive, in no distress, less generalized tremor mainly upper extremities Neck supple no JVD. CVS? regular rate rhythm, Respiratory lungs clear to auscultation, no respiratory distress, no wheeze, no rhonchi. Gastrointestinal abdomen soft, non tender, bowel sounds audible,no guarding , no rigidity. Extremities no edema. Skin no rash Neuro moving all 4 extremities, speech clear, upper extremities tremors. Objective Data Active Medications Acetaminophen (Acetaminophen 325 Mg Tablet) 650 mg PO Q6H PRN PRN Reason: Pain, Mild (Pain Scale 1-3) Aspirin (Aspirin 81 Mg Tab.Chew) 81 mg PO DAILY [facility] Last Admin: 09/06/22 08:11 Dose: Not Given Documented By: HELGA Non-Admin Reason: Patient Refused Benztropine Mesylate (Benztropine Mesylate 1 Mg Tablet) 1 mg PO BID [facility] Last Admin: 09/06/22 08:11 Dose: Not Given Documented By: HELGA Non-Admin Reason: Patient Refused Divalproex Sodium (Divalproex Sodium Er 500 Mg Tab.Er.24h) 1,000 mg PO BEDTIME [facility] Last Admin: 09/05/22 21:31 Dose: Not Given Documented By: AUTUMN Non-Admin Reason: Patient Refused Docusate Sodium (Docusate Sodium 100 Mg Capsule) 100 mg PO DAILY PRN PRN Reason: Constipation Ferrous Sulfate (Ferrous Sulfate 300 Mg/5 Ml Liquid) 300 mg PO TIDWM [facility] Last Admin: 09/06/22 11:35 Dose: Not Given Documented By: HELGA Non-Admin Reason: Off unit: Dialysis Haloperidol Lactate (Haloperidol Lactate 5 Mg/Ml Vial) 10 mg IM ONCE PRN PRN Reason: Agitation in dialysis Last Admin: 09/06/22 10:18 Dose: 10 mg Documented By: CHALINO Heparin Sodium (Porcine) (Heparin Sodium,Porcine 5,000 Unit/Ml Vial) 5,000 unit SUBCUT Q12H [facility] Last Admin: 09/06/22 05:19 Dose: Not Given Documented By: AUTUMN Non-Admin Reason: Patient Refused Lorazepam (Lorazepam 2 Mg/Ml Vial) 2 mg IM Q8H PRN PRN Reason: Anxiety Last Admin: 09/06/22 10:19 Dose: 2 mg Documented By: CHALINO Lorazepam (Lorazepam 2 Mg/Ml Vial) 3 mg IM ONCE PRN PRN Reason: Agitation with dialysis Last Admin: 09/03/22 12:05 Dose: 3 mg Documented By: GRAZIC Non-Formulary Medication (Thiothixene) 15 mg PO DAILY [facility] Last Admin: 09/06/22 08:11 Dose: Not Given Documented By: HELGA Non-Admin Reason: Patient Refused Olanzapine (Olanzapine Odt 10 Mg Tab.Rapdis) 5 mg TRANSLINGU DAILY [facility] Last Admin: 09/06/22 08:11 Dose: Not Given Documented By: HELGA Non-Admin Reason: Patient Refused Olanzapine (Olanzapine Odt 10 Mg Tab.Rapdis) 15 mg TRANSLINGU BEDTIME [facility] Last Admin: 09/05/22 21:31 Dose: Not Given Documented By: AUTUMN Non-Admin Reason: Patient Refused Olanzapine (Olanzapine 10 Mg Vial) 2.5 mg IM Q6H PRN PRN Reason: anxiety/restlessness Ondansetron HCl (Ondansetron Hcl 4 Mg/2 Ml Vial) 4 mg IVPUSH Q8H PRN PRN Reason: Nausea and Vomiting Sodium Chloride (0.9 % Sodium Chloride Flush 3 Ml Syringe) 3 ml IVFLUSH QSHIFT [facility] Last Admin: 09/06/22 07:26 Dose: Not Given Documented By: HELGA Non-Admin Reason: No Access Sodium Chloride (0.9 % Sodium Chloride Flush 3 Ml Syringe) 3 ml IVFLUSH QSHIFT [facility] Last Admin: 09/06/22 07:26 Dose: Not Given Documented By: HELGA Non-Admin Reason: No Access Labs 08/29/22 11:36 08/29/22 21:17 Assessment and Plan (1) FTT (failure to thrive) in adult: Status: Acute (2) ESRD needing dialysis: Status: Acute (3) Schizoaffective disorder, bipolar type: Status: Acute Plan Pt is a 67-year-old male with a PMH significant for?schizoaffective disorder bipolar type, ESRD on HD // patient is a transfer from [facility] after he began refusing dialysis. # Catatonia 2/2 Schizoaffective disorder w bipolar disease with flare More alert and interactive still refusing medications and dialysis psych following re medications HCP invoked ,patient's is HCP, waiting process of affirmation of the healthcare proxy at court, hearing by . Changed to PRN Zyprexa IM for agitation by psych rec. home medications Cogentin, ferrous sulfate, Depakote 1000 at bedtime, Zyprexa and thiothixene however patient refusing by mouth medications. # ESRD on HD // 2.5hrs HD 08/27, repeat HD on 09/03 repeat cret and potassium improved , being followed by Nephrology, HD on TTS during hospital stay, usually on MWF Patient lost IV, refused to place new one if the patient is agitated Psych recommended using Haldol and Ativan PRN so he can finish HD session and to avoid any possible harm for self or others Case discussed with Dr. Fernandez,he rec. to sedate pt. with Ativan 3 mg and Haloperidol 10 mg IM prior to hemodialysis as a life saving measure if needed. Had to give Haldol and Ativan today to do dialysis as a life saving measure. nephrology following # FTT in adult refusing to eat adequately Craps Dealer following, Ensure added refusing IV lines, removed the last one . Full Code Lovenox Requires ongoing hospitalization for further management and treatment of schizoaffective disorder with flare and also need for hemodialysis. Time Spent With Patient Time: Total time managing care of this patient today ____ minutes. Quality Stroke Does the patient have a stroke diagnosis?: No VTE Prior VTE?: No VTE Risk Level:: Medical - moderate - high VTE Device Contraindication: Treatment Not Indicated VTE Drug Contraindication: N/A - Med Ordered
[2022-09-07] MEDS: OLANZapine 10 MG VIAL 20 MG IM (08:26)
--- NOTE | 2022-09-07 13:11 | MHC.CLN ---
F/U DIET LIBERALIZED TO REGULAR PER MD RX. REQUIRES PSYCH MEDS PRIOR TO DIALYSIS. INTAKE CONTINUES USUALLY POOR. ONE RECENT MEAL 100%. ENSURE BID TO PROMOTE NUTRITIONAL INTAKE. PROVIDES 700 KCALS, 40 G PROTEIN. FOLLOW FOR INTAKE, DIALYSIS, AND LABS.
--- NOTE | 2022-09-07 15:15 | PC.NURSE ---
Patient refused assessment,resting quietly in bed,sitter at bedside ,telesiter on
[2022-09-07 15:45] VITALS: PULSE 87; RESP 18; TEMP 36; O2SAT 98
--- NOTE | 2022-09-07 15:50 | PC.NURSE ---
Patient asked for RN,when I came to pt room ,patient agreed to be assessed,agreed to have vs taken but than refused to have BP checked
[2022-09-07 16:10] LABS: Glucose, Whole Blood 106 mg/dL (60-115)
--- NOTE | 2022-09-07 16:28 | P.PNIM_ITS ---
Subjective Subjective Date of Service: 09/07/22 Interval History: More interactive this a.m.. Did refuse meds however IM olanzapine given Review of Systems Unable to obtain Physical Exam Vital Signs: Vital Signs: Last Vital Signs Temp 96.8 F 09/07/22 15:45 Pulse 87 09/07/22 15:45 Resp 18 09/07/22 15:45 BP 102/69 09/03/22 15:22 Pulse Ox 98 09/07/22 15:45 O2 Del Method Room Air 09/07/22 15:45 BMI result Body Mass Index 28.7 Const: Other: Awake alert interactive appropriate Resp: Other: Clear to auscultation bilaterally no rales rhonchi wheezes Cardio: Other: No S4; positive S1-S2; no S3 murmurs rubs or gallops GI: Other: Soft nontender nondistended normoactive bowel sounds Neuro: Other: Cranial nerves 2-12 grossly intact as tested. Motor 5/5 all extremities. Sensation intact. Gait steady Extrem: Other: No edema bilaterally Objective Data Active Medications Acetaminophen (Acetaminophen 325 Mg Tablet) 650 mg PO Q6H PRN PRN Reason: Pain, Mild (Pain Scale 1-3) Aspirin (Aspirin 81 Mg Tab.Chew) 81 mg PO DAILY [facility] Last Admin: 09/07/22 12:30 Dose: Not Given Documented By: VANESA Non-Admin Reason: Patient Refused Benztropine Mesylate (Benztropine Mesylate 1 Mg Tablet) 1 mg PO BID [facility] Last Admin: 09/07/22 12:30 Dose: Not Given Documented By: VANESA Non-Admin Reason: Patient Refused Divalproex Sodium (Divalproex Sodium Er 500 Mg Tab.Er.24h) 1,000 mg PO BEDTIME [facility] [place] Last Admin: 09/06/22 21:52 Dose: Not Given Documented By: TERRY Non-Admin Reason: Patient Refused Docusate Sodium (Docusate Sodium 100 Mg Capsule) 100 mg PO DAILY PRN PRN Reason: Constipation Ferrous Sulfate (Ferrous Sulfate 300 Mg/5 Ml Liquid) 300 mg PO TIDWM [facility] Last Admin: 09/07/22 12:31 Dose: Not Given Documented By: VANESA Non-Admin Reason: Patient Refused Haloperidol Lactate (Haloperidol Lactate 5 Mg/Ml Vial) 10 mg IM ONCE PRN PRN Reason: Agitation in dialysis Last Admin: 09/06/22 10:18 Dose: 10 mg Documented By: CHALINO Heparin Sodium (Porcine) (Heparin Sodium,Porcine 5,000 Unit/Ml Vial) 5,000 unit SUBCUT Q12H [facility] [place] Last Admin: 09/07/22 00:41 Dose: Not Given Documented By: CHRIS Non-Admin Reason: Patient Refused Lorazepam (Lorazepam 2 Mg/Ml Vial) 2 mg IM Q8H PRN PRN Reason: Anxiety Last Admin: 09/06/22 10:19 Dose: 2 mg Documented By: CHALINO Lorazepam (Lorazepam 2 Mg/Ml Vial) 3 mg IM ONCE PRN PRN Reason: Agitation with dialysis Last Admin: 09/03/22 12:05 Dose: 3 mg Documented By: GRAZIC Non-Formulary Medication (Thiothixene) 15 mg PO DAILY [facility] [place] Last Admin: 09/07/22 16:05 Dose: 15 mg Documented By: MIKE Olanzapine (Olanzapine Odt 10 Mg Tab.Rapdis) 5 mg TRANSLINGU DAILY [facility] Last Admin: 09/07/22 08:28 Dose: Not Given Documented By: VANESA Non-Admin Reason: Previously Administered Olanzapine (Olanzapine Odt 10 Mg Tab.Rapdis) 15 mg TRANSLINGU BEDTIME [facility] [place] Last Admin: 09/06/22 21:53 Dose: Not Given Documented By: TERRY Non-Admin Reason: Patient Refused Olanzapine (Olanzapine 10 Mg Vial) 2.5 mg IM Q6H PRN PRN Reason: anxiety/restlessness Ondansetron HCl (Ondansetron Hcl 4 Mg/2 Ml Vial) 4 mg IVPUSH Q8H PRN PRN Reason: Nausea and Vomiting Sodium Chloride (0.9 % Sodium Chloride Flush 3 Ml Syringe) 3 ml IVFLUSH QSHIFT [facility] [place] Last Admin: 09/07/22 15:11 Dose: Not Given Documented By: MIKE Non-Admin Reason: No Access Sodium Chloride (0.9 % Sodium Chloride Flush 3 Ml Syringe) 3 ml IVFLUSH QSHIFT [facility] [place] Last Admin: 09/07/22 15:11 Dose: Not Given Documented By: MIKE Non-Admin Reason: No Access Labs 08/29/22 11:36 08/29/22 21:17 Labs: Laboratory Results - last 24 hr 09/07/22 16:06 POC Glucose 106 Assessment and Plan (1) Schizoaffective disorder, bipolar type: Status: Acute (2) ESRD needing dialysis: Status: Acute Plan Pt is a 67-year-old male with a PMH significant for?schizoaffective disorder bipolar type, ESRD on HD M/W/ who is admitted to the medical floor for missed dialysis. Patient is a transfer from [facility] after he began refusing dialysis, . Given 5 mg Haldol/Ativan 1 mg IM with excellent response initially. Has continued to refuse meds since admission however this afternoon nurse was able to give him his oral Navane 1.Schizoaffective disorder bipolar type -follow-up effect of olanzapine/Navane -hopefully will take orals from this point on 2.ESRD on HD //Mon -further treatments as per Renal -follow renals/divalents as allowed Full Code Zeina Requires ongoing hospitalization to pulse dose with olanzapine/navane to facilitate compliance Time Spent With Patient Time: Total time managing care of this patient today ____ minutes. Quality Stroke Does the patient have a stroke diagnosis?: No VTE Prior VTE?: No VTE Risk Level:: Medical - moderate - high VTE Device Contraindication: Treatment Not Indicated VTE Drug Contraindication: N/A - Med Ordered
[2022-09-08 03:56] VITALS: RESP 16
[2022-09-08] MEDS: LORazepam 2 MG/ML VIAL 3 MG IM (08:23)
[2022-09-08] MEDS: OLANZapine 10 MG VIAL 20 MG IM (08:27)
[2022-09-08 10:30] LABS: Hematocrit 30.9 % (42.0-52.0); Hemoglobin 11.2 g/dl (14.0-18.0); Mean Corpuscular HGB Conc 36.2 g/dl (31.0-36.0); Mean Corpuscular Hemoglobin 34.5 pg (27.0-33.0); Mean Corpuscular Volume 95.1 fL (80.0-98.0); Mean Platelet Volume 10.3 fL (9.4-12.4); Platelet Count 148 X10*3/uL (160-400); Red Blood Count 3.25 X10*6/uL (4.60-5.80); Red Cell Distribution Width 12.7 % (11.0-16.0); White Blood Count 5.1 X10*3/uL (4.8-10.8)
--- NOTE | 2022-09-08 10:30 | PM.PNNEP ---
Subjective Subjective Date of Service: 09/08/22 Interval history: Leslie nd examined,e vents noited currently on HD Physical Exam Vital Signs: Vital Signs: Last Vital Signs Temp 96.8 F 09/07/22 15:45 Pulse 87 09/07/22 15:45 Resp 16 09/08/22 03:56 BP 102/69 09/03/22 15:22 Pulse Ox 98 09/07/22 15:45 O2 Del Method Room Air 09/07/22 15:45 BMI result Body Mass Index 28.7 Const: Other: General? alert, interactive, in no acute distress, generalized tremor mainly upper extremities Neck supple no JVD. CVS? regular rate rhythm, Respiratory lungs clear to auscultation, no respiratory distress, no wheeze, no rhonchi. Gastrointestinal abdomen soft, non tender, bowel sounds audible,no guarding , no rigidity. Extremities no edema. Skin no rash Neuro moving all 4 extremities, speech clear, upper extremities tremors. more General: no acute distress Eyes: EOM: EOMs intact bilaterally Neck: Neck: Yes supple Resp: Other: Clear to auscultation bilaterally no rales rhonchi wheezes Auscultation: diminished lung sounds Cardio: Other: No S4; positive S1-S2; no S3 murmurs rubs or gallops Rate: regular rate GI: Other: Soft nontender nondistended normoactive bowel sounds Palpation (GI): Soft to palpation Skin: General skin exam: no rashes or lesions noted Neuro: Other: Cranial nerves 2-12 grossly intact as tested. Motor 5/5 all extremities. Sensation intact. Gait steady General: moves all extremities Cranial nerves: Yes CN's II-XII intact bilaterally Extrem: Other: No edema bilaterally Psych: Other: The patient is wearing hospital gowns, looks disheveled, poor eye contact, despondent. Speech is minimal, selectively mute. Affect blunted. Mood depressed. Thought process with thought blocking. Thought Content internally preoccupied, poverty of content. Insight judgment and impulse control poor Appearance: disheveled Affect: Depressed mood present and Blunted affect present Attitude: Avoids eye contact (attititude/behavior) and Refuses to answer (attititude/behavior) Thought process: Illogical thought process present, Impoverished thought process present and Loose association thought process present Thought content: Depressive thoughts present and Ideas of reference present (thought content) Insight: Poor insight present (Psych) Judgement: Poor judgement present (Psych) Objective Data Labs 08/29/22 11:36 08/29/22 21:17 Labs: Laboratory Results - last 24 hr 09/07/22 16:06 POC Glucose 106 Procedures Date of Service Date of Service: 09/08/22 Assessment & Plan Assessment and plan (1) ESRD needing dialysis: Status: Acute Assessment and Plan: ESRD: usu mwf but off shift d/t refusing HD--so now on TTS Psych:cont to refuse on/offf and require psych meds pre HD Anemia MBD of CKD REC: no new recs; HD 3x/wk on [place] as noted--next HD SAT , and pre-medicate; cont usu meds;needs psych eval re: med adjsutment Time Spent With Patient Time: Total time managing care of this patient today ____ minutes. Progress Note: Quality Stroke Does the patient have a stroke diagnosis?: No
[2022-09-08 11:00] LABS: Alanine Aminotransferase 18 U/L (0-40); Albumin Level 4.4 g/dL (3.5-5.0); Alkaline Phosphatase 68 U/L (39-117); Anion Gap 18 (12-20); Aspartate Amino Transferase 11 U/L (5-37); Bilirubin Total 1.1 mg/dL (0.0-1.0); Blood Urea Nitrogen 42 mg/dL (9-16); Calcium 9.3 mg/dL (8.4-10.2); Carbon Dioxide 22 mmol/L (22-29); Chloride 99 mmol/L (96-108); Glucose Fasting 98 mg/dL (60-99); Potassium 3.2 mmol/L (3.3-5.1); Sodium 136 mmol/L (135-145)
[2022-09-08 11:02] LABS: Creatinine Clr Calc Pharmacy 9.1; Estimated Glomerular Filt Rate 6
--- NOTE | 2022-09-08 12:36 | HO.PM.IMPN ---
Subjective Subjective Date of Service: 09/08/22 Interval History: Took oral meds last evening; refused this a.m.. Required IM olanzapine and Ativan to facilitate dialysis Review of Systems Unable to obtain Physical Exam Vital Signs: Vital Signs: Last Vital Signs Temp 96.8 F 09/07/22 15:45 Pulse 87 09/07/22 15:45 Resp 16 09/08/22 03:56 BP 102/69 09/03/22 15:22 Pulse Ox 98 09/07/22 15:45 O2 Del Method Room Air 09/07/22 15:45 BMI result Body Mass Index 28.7 Const: Other: Awake alert interactive appropriate Resp: Other: Clear to auscultation bilaterally no rales rhonchi wheezes Cardio: Other: No S4; positive S1-S2; no S3 murmurs rubs or gallops GI: Other: Soft nontender nondistended normoactive bowel sounds Neuro: Other: Cranial nerves 2-12 grossly intact as tested. Motor 5/5 all extremities. Sensation intact. Gait steady Extrem: Other: No edema bilaterally Objective Data Active Medications Acetaminophen (Acetaminophen 325 Mg Tablet) 650 mg PO Q6H PRN PRN Reason: Pain, Mild (Pain Scale 1-3) Aspirin (Aspirin 81 Mg Tab.Chew) 81 mg PO DAILY [facility] Last Admin: 09/07/22 12:30 Dose: Not Given Documented By: VANESA Non-Admin Reason: Patient Refused Benztropine Mesylate (Benztropine Mesylate 1 Mg Tablet) 1 mg PO BID [facility] Last Admin: 09/07/22 22:11 Dose: Not Given Documented By: MIKE Non-Admin Reason: Patient Refused Divalproex Sodium (Divalproex Sodium Er 500 Mg Tab.Er.24h) 1,000 mg PO BEDTIME [facility] Last Admin: 09/07/22 22:11 Dose: Not Given Documented By: MIKE Non-Admin Reason: Patient Refused Docusate Sodium (Docusate Sodium 100 Mg Capsule) 100 mg PO DAILY PRN PRN Reason: Constipation Ferrous Sulfate (Ferrous Sulfate 300 Mg/5 Ml Liquid) 300 mg PO TIDWM [facility] Last Admin: 09/08/22 09:16 Dose: Not Given Documented By: VANESA Non-Admin Reason: Patient Refused Haloperidol Lactate (Haloperidol Lactate 5 Mg/Ml Vial) 10 mg IM ONCE PRN PRN Reason: Agitation in dialysis Last Admin: 09/06/22 10:18 Dose: 10 mg Documented By: CHALINO Heparin Sodium (Porcine) (Heparin Sodium,Porcine 5,000 Unit/Ml Vial) 5,000 unit SUBCUT Q12H [facility] Last Admin: 09/08/22 05:27 Dose: Not Given Documented By: MERARY Non-Admin Reason: Patient Refused Non-Formulary Medication (Thiothixene) 15 mg PO DAILY [facility] Last Admin: 09/07/22 16:05 Dose: 15 mg Documented By: MIKE Olanzapine (Olanzapine Odt 10 Mg Tab.Rapdis) 5 mg TRANSLINGU DAILY [facility] Last Admin: 09/07/22 08:28 Dose: Not Given Documented By: VANESA Non-Admin Reason: Previously Administered Olanzapine (Olanzapine Odt 10 Mg Tab.Rapdis) 15 mg TRANSLINGU BEDTIME [facility] Last Admin: 09/07/22 22:11 Dose: Not Given Documented By: MIKE Non-Admin Reason: Patient Refused Olanzapine (Olanzapine 10 Mg Vial) 2.5 mg IM Q6H PRN PRN Reason: anxiety/restlessness Ondansetron HCl (Ondansetron Hcl 4 Mg/2 Ml Vial) 4 mg IVPUSH Q8H PRN PRN Reason: Nausea and Vomiting Sodium Chloride (0.9 % Sodium Chloride Flush 3 Ml Syringe) 3 ml IVFLUSH QSNVFT [facility] Last Admin: 09/08/22 09:16 Dose: Not Given Documented By: VANESA Non-Admin Reason: No Access Sodium Chloride (0.9 % Sodium Chloride Flush 3 Ml Syringe) 3 ml IVFLUSH QSNVFT [facility] Last Admin: 09/08/22 09:16 Dose: Not Given Documented By: VANESA Non-Admin Reason: No Access Labs 09/08/22 10:21 09/08/22 10:21 Labs: Laboratory Results - last 24 hr 09/07/22 09/08/22 09/08/22 16:06 10:21 10:21 MCV 95.1 MCH 34.5 H MCHC 36.2 H RDW 12.7 Plt Count 148 L MPV 10.3 Absolute Nucleated RBC 0.000 Nucleated RBC % (auto) 0.0 Anion Gap 18 Estim Creat Clear Calc 9.1 Estimated GFR 6 POC Glucose 106 Fasting Glucose 98 Calcium 9.3 Total Bilirubin 1.1 H AST 11 ALT 18 Alkaline Phosphatase 68 Total Protein 7.0 Albumin 4.4 Assessment and Plan (1) Schizoaffective disorder, bipolar type: Status: Acute (2) ESRD needing dialysis: Status: Acute Plan Pt is a 67-year-old male with a PMH significant for?schizoaffective disorder bipolar type, ESRD on HD M/W/F who is admitted to the medical floor for missed dialysis. Patient is a transfer from [facility] after he began refusing dialysis, . Given 5 mg Haldol/Ativan 1 mg IM with excellent response initially. Has continued to refuse meds since admission however this afternoon nurse was able to give him his oral Navane 1.Schizoaffective disorder bipolar type -follow-up effect of olanzapine/Navane... Continue routine as ordered -hopefully will take orals from this point on 2.ESRD on HD s//Sat -further treatments as per Renal -follow renals/divalents as allowed Full Code Zeina Requires ongoing hospitalization to pulse dose with olanzapine/navane to facilitate compliance Time Spent With Patient Time: Total time managing care of this patient today ____ minutes. Quality Stroke Does the patient have a stroke diagnosis?: No VTE Prior VTE?: No VTE Risk Level:: Medical - moderate - high VTE Device Contraindication: Treatment Not Indicated VTE Drug Contraindication: N/A - Med Ordered
[2022-09-08 12:54] VITALS: BP 112/67; PULSE 77; RESP 18
--- NOTE | 2022-09-08 18:10 | PC.NURSE ---
patient refused vital signs,refused meds
--- NOTE | 2022-09-08 18:20 | PC.NURSE ---
Spoke with patient and encouraged po meds as prescribed,patient said no at this time but was very pleasant and said thank you for stopping by
[2022-09-09 02:54] VITALS: RESP 16
--- NOTE | 2022-09-09 12:17 | MHC.CM.PN ---
Per MD rounds this morning MD plans to discharge patient to [facility]. The HCP was scheduled to be affirmed yesterday in court 09/08/22. [facility].
--- NOTE | 2022-09-09 12:18 | MHC.CLN ---
F/U DIET LIBERALIZED TO REGULAR PER MD RX. REQUIRES PSYCH MEDS PRIOR TO DIALYSIS. INTAKE CONTINUES USUALLY POOR. TWO RECENT MEAL 100%. ENSURE BID TO PROMOTE NUTRITIONAL INTAKE. PROVIDES 700 KCALS, 40 G PROTEIN. FOLLOW FOR INTAKE, DIALYSIS, AND LABS.
--- NOTE | 2022-09-09 13:36 | P.PNIM_ITS ---
Subjective Subjective Date of Service: 09/09/22 Interval History: Took Navane this morning otherwise quiet and non interactive Review of Systems Unable to obtain Physical Exam Vital Signs: Vital Signs: Last Vital Signs Temp 96.8 F 09/07/22 15:45 Pulse 77 09/08/22 12:54 Resp 16 09/09/22 02:54 BP 112/67 09/08/22 12:54 Pulse Ox 98 09/07/22 15:45 O2 Del Method Room Air 09/07/22 15:45 BMI result Body Mass Index 28.7 Const: Other: Awake alert interactive appropriate Resp: Other: Clear to auscultation bilaterally no rales rhonchi wheezes Cardio: Other: No S4; positive S1-S2; no S3 murmurs rubs or gallops GI: Other: Soft nontender nondistended normoactive bowel sounds Neuro: Other: Cranial nerves 2-12 grossly intact as tested. Motor 5/5 all extremities. Sensation intact. Gait steady Extrem: Other: No edema bilaterally Objective Data Active Medications Acetaminophen (Acetaminophen 325 Mg Tablet) 650 mg PO Q6H PRN PRN Reason: Pain, Mild (Pain Scale 1-3) Aspirin (Aspirin 81 Mg Tab.Chew) 81 mg PO DAILY [facility] Last Admin: 09/09/22 08:42 Dose: Not Given Documented By: VANESA Non-Admin Reason: Patient Refused Benztropine Mesylate (Benztropine Mesylate 1 Mg Tablet) 1 mg PO BID [facility] Last Admin: 09/09/22 08:41 Dose: Not Given Documented By: VANESA Non-Admin Reason: Patient Refused Divalproex Sodium (Divalproex Sodium Er 500 Mg Tab.Er.24h) 1,000 mg PO BEDTIME [facility] Last Admin: 09/08/22 20:45 Dose: Not Given Documented By: MIKE Non-Admin Reason: Patient Refused Docusate Sodium (Docusate Sodium 100 Mg Capsule) 100 mg PO DAILY PRN PRN Reason: Constipation Ferrous Sulfate (Ferrous Sulfate 300 Mg/5 Ml Liquid) 300 mg PO TIDWM [facility] Last Admin: 09/09/22 13:30 Dose: Not Given Documented By: VANESA Non-Admin Reason: Patient Refused Haloperidol Lactate (Haloperidol Lactate 5 Mg/Ml Vial) 10 mg IM ONCE PRN PRN Reason: Agitation in dialysis Last Admin: 09/06/22 10:18 Dose: 10 mg Documented By: CHALINO Heparin Sodium (Porcine) (Heparin Sodium,Porcine 5,000 Unit/Ml Vial) 5,000 unit SUBCUT Q12H [facility] Last Admin: 09/09/22 05:50 Dose: Not Given Documented By: MERARY Non-Admin Reason: Patient Refused Non-Formulary Medication (Thiothixene) 15 mg PO DAILY [facility] Last Admin: 09/09/22 08:41 Dose: 15 mg Documented By: VANESA Olanzapine (Olanzapine Odt 10 Mg Tab.Rapdis) 5 mg TRANSLINGU DAILY [facility] Last Admin: 09/09/22 08:41 Dose: Not Given Documented By: VANESA Non-Admin Reason: Patient Refused Olanzapine (Olanzapine Odt 10 Mg Tab.Rapdis) 15 mg TRANSLINGU BEDTIME [facility] Last Admin: 09/08/22 20:45 Dose: Not Given Documented By: MIKE Non-Admin Reason: Patient Refused Olanzapine (Olanzapine 10 Mg Vial) 2.5 mg IM Q6H PRN PRN Reason: anxiety/restlessness Ondansetron HCl (Ondansetron Hcl 4 Mg/2 Ml Vial) 4 mg IVPUSH Q8H PRN PRN Reason: Nausea and Vomiting Sodium Chloride (0.9 % Sodium Chloride Flush 3 Ml Syringe) 3 ml IVFLUSH QSHIFT [facility] Last Admin: 09/09/22 08:41 Dose: Not Given Documented By: VANESA Non-Admin Reason: No Access Sodium Chloride (0.9 % Sodium Chloride Flush 3 Ml Syringe) 3 ml IVFLUSH QSHIFT [facility] Last Admin: 09/09/22 08:42 Dose: Not Given Documented By: VANESA Non-Admin Reason: No Access Labs 09/08/22 10:21 09/08/22 10:21 Assessment and Plan (1) Schizoaffective disorder, bipolar type: Status: Acute (2) ESRD needing dialysis: Status: Acute Plan Pt is a 67-year-old male with a PMH significant for?schizoaffective disorder bipolar type, ESRD on HD M/W/ who is admitted to the medical floor for missed dialysis. Patient is a transfer from [facility] after he began refusing dialysis, . Given 5 mg Haldol/Ativan 1 mg IM with excellent response initially. Has continued to refuse meds since admission however this afternoon nurse was able to give him his oral Navane 1.Schizoaffective disorder bipolar type -follow-up effect of olanzapine/Navane... Continue routine as ordered -hopefully will take orals from this point on -psych consult 2.ESRD on HD //Mon -further treatments as per Renal -follow renals/divalents as allowed Full Code Zeina Requires ongoing hospitalization to pulse dose with olanzapine/navane to facilitate compliance Time Spent With Patient Time: Total time managing care of this patient today ____ minutes. Quality Stroke Does the patient have a stroke diagnosis?: No VTE Prior VTE?: No VTE Risk Level:: Medical - moderate - high VTE Device Contraindication: Treatment Not Indicated VTE Drug Contraindication: N/A - Med Ordered
--- NOTE | 2022-09-09 17:29 | P.PNPSI_ITS ---
Subjective Subjective Date of Service: 09/09/22 Reason For Visit: missed dialysis Subjective Notes: Other Healthcare Proxy: Yes Interim History: The patient is seen extensively with his on multiple occasions throughout the day and case also reviewed with Dr. Correa from the hospitalist service chart reviewed. The patient has been intermittently refusing most of his medications attempt was made to bring some of his medications from home and their bottles to see if he would be less suspicious regarding what he is taking. He has required sedation generally in order to go to medically needed renal dialysis. Patient has been paranoid and suspicious regarding what is going on in dialysis and that he is not being given the medications that he normally takes at home despite it being given from the seem bottle. He is not responding to reassurance from his . His appetite has been poor and he has been mostly withdrawn and often not engaging very much. The patient's states that he started relapsing couple of weeks prior to admission gone away overnight and he was acting suspicious and paranoid apparently had stopped taking his medication. Dr. Correa felt that the patient had responded to Haldol previously given patient 's felt that he had become quite confused after to this point he has so far not responding to the combination of olanzapine and Ativan The [employer] states that the patient's healthcare proxy has been affirmed he was transferred previously from the psychiatric unit to the medical floor in order to receive dialysis He did take a dose of Navane reportedly this morning Review of Systems Review of Systems: Weight loss fatigue Diagnostics Vital Signs (24Hr): Vital Signs - 24 hr 09/09/22 02:54 Respiratory Rate 16 BMI result Body Mass Index 28.7 Labs 09/08/22 10:21 09/08/22 10:21 Labs: Laboratory Results - last 48 hr 09/08/22 09/08/22 10:21 10:21 WBC 5.1 RBC 3.25 L Hgb 11.2 L Hct 30.9 L MCV 95.1 MCH 34.5 H MCHC 36.2 H RDW 12.7 Plt Count 148 L MPV 10.3 Absolute Nucleated RBC 0.000 Nucleated RBC % (auto) 0.0 Sodium 136 Potassium 3.2 L Chloride 99 Carbon Dioxide 22 Anion Gap 18 BUN 42 H Creatinine 9.12 H* Estim Creat Clear Calc 9.1 Estimated GFR 6 Fasting Glucose 98 Calcium 9.3 Total Bilirubin 1.1 H AST 11 ALT 18 Alkaline Phosphatase 68 Total Protein 7.0 Albumin 4.4 Medications Medications Current Medications Acetaminophen (Acetaminophen 325 Mg Tablet) 650 mg PO Q6H PRN PRN Reason: Pain, Mild (Pain Scale 1-3) Aspirin (Aspirin 81 Mg Tab.Chew) 81 mg PO DAILY [facility] Last Admin: 09/09/22 08:42 Dose: Not Given Benztropine Mesylate (Benztropine Mesylate 1 Mg Tablet) 1 mg PO BID [facility] Last Admin: 09/09/22 08:41 Dose: Not Given Divalproex Sodium (Divalproex Sodium Er 500 Mg Tab.Er.24h) 1,000 mg PO BEDTIME [facility] Last Admin: 09/08/22 20:45 Dose: Not Given Docusate Sodium (Docusate Sodium 100 Mg Capsule) 100 mg PO DAILY PRN PRN Reason: Constipation Ferrous Sulfate (Ferrous Sulfate 300 Mg/5 Ml Liquid) 300 mg PO TIDWM [facility] Last Admin: 09/09/22 13:30 Dose: Not Given Haloperidol Lactate (Haloperidol Lactate 5 Mg/Ml Vial) 10 mg IM ONCE PRN PRN Reason: Agitation in dialysis Last Admin: 09/06/22 10:18 Dose: 10 mg Heparin Sodium (Porcine) (Heparin Sodium,Porcine 5,000 Unit/Ml Vial) 5,000 unit SUBCUT Q12H [facility] Last Admin: 09/09/22 05:50 Dose: Not Given Non-Formulary Medication (Thiothixene) 15 mg PO DAILY [facility] Last Admin: 09/09/22 08:41 Dose: 15 mg Olanzapine (Olanzapine Odt 10 Mg Tab.Rapdis) 5 mg TRANSLINGU DAILY [facility] Last Admin: 09/09/22 08:41 Dose: Not Given Olanzapine (Olanzapine Odt 10 Mg Tab.Rapdis) 15 mg TRANSLINGU BEDTIME [facility] Last Admin: 09/08/22 20:45 Dose: Not Given Olanzapine (Olanzapine 10 Mg Vial) 2.5 mg IM Q6H PRN PRN Reason: anxiety/restlessness Olanzapine (Olanzapine 10 Mg Vial) 10 mg IM DAILY PRN PRN Reason: Psychosis Ondansetron HCl (Ondansetron Hcl 4 Mg/2 Ml Vial) 4 mg IVPUSH Q8H PRN PRN Reason: Nausea and Vomiting Sodium Chloride (0.9 % Sodium Chloride Flush 3 Ml Syringe) 3 ml IVFLUSH QSHIFT [facility] Last Admin: 09/09/22 15:35 Dose: Not Given Sodium Chloride (0.9 % Sodium Chloride Flush 3 Ml Syringe) 3 ml IVFLUSH QSHIFT [facility] Last Admin: 09/09/22 15:35 Dose: Not Given Allergies Allergies Allergy/AdvReac Type Severity Reaction Status Date / Time No Known Allergies Allergy Verified 09/06/22 09:01 Assessment & Plan Assessment & Plan (1) Schizoaffective disorder, bipolar type: Status: Acute Code(s): F25.0 - Schizoaffective disorder, bipolar type (2) ESRD needing dialysis: Status: Acute Code(s): N18.6 - End stage renal disease; Z99.2 - Dependence on renal dialysis Plan Pt is a 67-year-old male with a PMH significant for?schizoaffective disorder bipolar type, ESRD on HD M// who is admitted to the medical floor for missed dialysis. Patient is a transfer from [facility] after he began refusing dialysis, . Given 5 mg Haldol/Ativan 1 mg IM with excellent response initially. Has continued to refuse meds since admission however this afternoon nurse was able to give him his oral Navane 1.Schizoaffective disorder bipolar type -follow-up effect of olanzapine/Navane... Continue routine as ordered -hopefully will take orals from this point on -psych consult 2.ESRD on HD //Mon -further treatments as per Renal -follow renals/divalents as allowed Full Code Zeina Requires ongoing hospitalization to pulse dose with olanzapine/navane to facilitate compliance 09/09/2022 Patient's case reviewed extensively with Dr. Correa chart reviewed patient seen on multiple occasions. Initially he was electively mute later became more talkative and less withdrawn. Asking leave the hospital stating he would take his medications at home do dialysis at home that something is wrong suspicious- start im bid olanzapine if pt refuses po encourage food fluids cont dialysis to bring in pts meds in their container from home consider haldol im if olanzapine not effective Guardian/Caregiver educated on: medication risk/benefits, therapeutic strategies and medical condition Informed Consent: understands Reason for continued inpatient stay Substantial Risk for: inability to function and med/psych decompensation Time Spent With Patient Time: Total time managing care of this patient today 65____ minutes.
--- NOTE | 2022-09-09 17:58 | PM.PNNEP ---
Subjective Subjective Date of Service: 09/10/22 Interval history: Events noted Physical Exam Vital Signs: Vital Signs: Last Vital Signs Temp 96.8 F 09/07/22 15:45 Pulse 77 09/08/22 12:54 Resp 16 09/09/22 02:54 BP 112/67 09/08/22 12:54 Pulse Ox 98 09/07/22 15:45 O2 Del Method Room Air 09/07/22 15:45 BMI result Body Mass Index 28.7 Objective Data Labs 09/08/22 10:21 09/08/22 10:21 Procedures Date of Service Date of Service: 09/10/22 Assessment & Plan Assessment and plan (1) ESRD needing dialysis: Status: Acute Plan ESRD: HD mwf but off shift d/t refusing HD--so now on TTS Psych:continues to refuse on/off and require psych meds pre HD Anemia MBD of CKD Time Spent With Patient Time: Total time managing care of this patient today ____ minutes. Progress Note: Quality Stroke Does the patient have a stroke diagnosis?: No
--- NOTE | 2022-09-09 20:29 | PC.NURSE ---
patient refused his bedtime medications, stated they are the wrong one ,
[2022-09-10] MEDS: LORazepam 2 MG/ML VIAL IM (09:17)
[2022-09-10] MEDS: OLANZapine 10 MG VIAL IM (09:18)
--- NOTE | 2022-09-10 09:21 | PC.NURSE ---
Patient willing took IM injection pre dialysis.
--- NOTE | 2022-09-10 11:00 | W.PM.DNNEP ---
Subjective Subjective This patient was seen during dialysis. Interval history: Events noted Physical Exam Vital Signs: Vital Signs: Last Vital Signs Temp 96.8 F 09/07/22 15:45 Pulse 77 09/08/22 12:54 Resp 16 09/09/22 02:54 BP 112/67 09/08/22 12:54 Pulse Ox 98 09/07/22 15:45 O2 Del Method Room Air 09/07/22 15:45 BMI result Body Mass Index 28.7 Const: Other: General? alert, interactive, in no acute distress, generalized tremor mainly upper extremities Neck supple no JVD. CVS? regular rate rhythm, Respiratory lungs clear to auscultation, no respiratory distress, no wheeze, no rhonchi. Gastrointestinal abdomen soft, non tender, bowel sounds audible,no guarding , no rigidity. Extremities no edema. Skin no rash Neuro moving all 4 extremities, speech clear, upper extremities tremors. more General: no acute distress Assessment & Plan Assessment and plan (1) ESRD needing dialysis: Status: Acute Plan ESRD: HD mwf but off shift d/t refusing HD--so now on TTS Psych:continues to refuse on/off and require psych meds pre HD Anemia MBD of CKD Time Spent With Patient Time: Total time managing care of this patient today ____ minutes. Procedures Date of Service Date of Service: 09/10/22
--- NOTE | 2022-09-10 11:39 | P.PNIM_ITS ---
Subjective Subjective Date of Service: 09/10/22 Interval History: Required IV M medication prior to dialysis this morning Review of Systems Unable to obtain Physical Exam Vital Signs: Vital Signs: Last Vital Signs Temp 96.8 F 09/07/22 15:45 Pulse 77 09/08/22 12:54 Resp 16 09/09/22 02:54 BP 112/67 09/08/22 12:54 Pulse Ox 98 09/07/22 15:45 O2 Del Method Room Air 09/07/22 15:45 BMI result Body Mass Index 28.7 Const: Other: Awake alert interactive appropriate Resp: Other: Clear to auscultation bilaterally no rales rhonchi wheezes Cardio: Other: No S4; positive S1-S2; no S3 murmurs rubs or gallops GI: Other: Soft nontender nondistended normoactive bowel sounds Neuro: Other: Cranial nerves 2-12 grossly intact as tested. Motor 5/5 all extremities. Sen sation intact. Gait steady Extrem: Other: No edema bilaterally Objective Data Active Medications Acetaminophen (Acetaminophen 325 Mg Tablet) 650 mg PO Q6H PRN PRN Reason: Pain, Mild (Pain Scale 1-3) Aspirin (Aspirin 81 Mg Tab.Chew) 81 mg PO DAILY [facility] Last Admin: 09/10/22 07:55 Dose: Not Given Documented By: HELGA Non-Admin Reason: Patient Refused Benztropine Mesylate (Benztropine Mesylate 1 Mg Tablet) 1 mg PO BID [facility] Last Admin: 09/10/22 07:55 Dose: Not Given Documented By: HELGA Non-Admin Reason: Patient Refused Divalproex Sodium (Divalproex Sodium Er 500 Mg Tab.Er.24h) 1,000 mg PO BEDTIME [facility] Last Admin: 09/09/22 20:29 Dose: Not Given Documented By: BESS Non-Admin Reason: Patient Refused Docusate Sodium (Docusate Sodium 100 Mg Capsule) 100 mg PO DAILY PRN PRN Reason: Constipation Ferrous Sulfate (Ferrous Sulfate 300 Mg/5 Ml Liquid) 300 mg PO TIDWM [facility] Last Admin: 09/10/22 11:24 Dose: Not Given Documented By: HELGA Non-Admin Reason: Off unit: Dialysis Haloperidol Lactate (Haloperidol Lactate 5 Mg/Ml Vial) 10 mg IM ONCE PRN PRN Reason: Agitation in dialysis Last Admin: 09/06/22 10:18 Dose: 10 mg Documented By: CHALINO Heparin Sodium (Porcine) (Heparin Sodium,Porcine 5,000 Unit/Ml Vial) 5,000 unit SUBCUT Q12H [facility] Last Admin: 09/10/22 05:16 Dose: Not Given Documented By: MELISSA Non-Admin Reason: Patient Refused Non-Formulary Medication (Thiothixene) 15 mg PO DAILY [facility] Last Admin: 09/10/22 07:55 Dose: Not Given Documented By: HELGA Non-Admin Reason: Patient Refused Olanzapine (Olanzapine Odt 10 Mg Tab.Rapdis) 15 mg TRANSLINGU BEDTIME [facility] Last Admin: 09/09/22 20:29 Dose: Not Given Documented By: BESS Non-Admin Reason: Patient Refused Olanzapine (Olanzapine 10 Mg Vial) 2.5 mg IM Q6H PRN PRN Reason: anxiety/restlessness Olanzapine (Olanzapine 10 Mg Vial) 10 mg IM DAILY PRN PRN Reason: Psychosis Last Admin: 09/10/22 09:18 Dose: 10 mg Documented By: CHALINO Olanzapine (Olanzapine 10 Mg Vial) 10 mg IM BEDTIME PRN PRN Reason: Psychosis Ondansetron HCl (Ondansetron Hcl 4 Mg/2 Ml Vial) 4 mg IVPUSH Q8H PRN PRN Reason: Nausea and Vomiting Sodium Chloride (0.9 % Sodium Chloride Flush 3 Ml Syringe) 3 ml IVFLUSH QSHIFT [facility] Last Admin: 09/10/22 07:31 Dose: Not Given Documented By: HELGA Non-Admin Reason: No Access Sodium Chloride (0.9 % Sodium Chloride Flush 3 Ml Syringe) 3 ml IVFLUSH QSKYFT [facility] Last Admin: 09/10/22 07:31 Dose: Not Given Documented By: HELGA Non-Admin Reason: No Access Labs 09/08/22 10:21 09/08/22 10:21 Assessment and Plan (1) Schizoaffective disorder, bipolar type: Status: Acute (2) ESRD needing dialysis: Status: Acute Plan Pt is a 67-year-old male with a PMH significant for?schizoaffective disorder bipolar type, ESRD on HD M/W/F who is admitted to the medical floor for missed dialysis. Patient is a transfer from [facility] after he began refusing dialysis, . Given 5 mg Haldol/Ativan 1 mg IM with excellent response initially. Has continued to refuse meds since admission however this afternoon nurse was able to give him his oral Navane 1.Schizoaffective disorder bipolar type -follow-up effect of olanzapine/Navane... Continue routine as ordered -await psych input 2.ESRD on HD //Mon -further treatments as per Renal -follow renals/divalents as allowed Full Code Lovenox Requires ongoing hospitalization to pulse dose with olanzapine/navane to fa cilitate compliance Time Spent With Patient Time: Total time managing care of this patient today ____ minutes. Quality Stroke Does the patient have a stroke diagnosis?: No VTE Prior VTE?: No VTE Risk Level:: Medical - moderate - high VTE Device Contraindication: Treatment Not Indicated VTE Drug Contraindication: N/A - Med Ordered
--- NOTE | 2022-09-11 11:54 | P.PNIM_ITS ---
Subjective Subjective Date of Service: 09/11/22 Interval History: Took Navane this a.m. otherwise still noncompliant Review of Systems Unable to obtain Physical Exam Vital Signs: Vital Signs: Last Vital Signs Temp 96.8 F 09/07/22 15:45 Pulse 77 09/08/22 12:54 Resp 16 09/09/22 02:54 BP 112/67 09/08/22 12:54 Pulse Ox 98 09/07/22 15:45 O2 Del Method Room Air 09/07/22 15:45 BMI result Body Mass Index 28.7 Const: Other: Awake alert interactive appropriate Resp: Other: Clear to auscultation bilaterally no rales rhonchi wheezes Cardio: Other: No S4; positive S1-S2; no S3 murmurs rubs or gallops GI: Other: Soft nontender nondistended normoactive bowel sounds Neuro: Other: Cranial nerves 2-12 grossly intact as tested. Motor 5/5 all extremities. Sensation intact. Gait steady Extrem: Other: No edema bilaterally Objective Data Active Medications Acetaminophen (Acetaminophen 325 Mg Tablet) 650 mg PO Q6H PRN PRN Reason: Pain, Mild (Pain Scale 1-3) Aspirin (Aspirin 81 Mg Tab.Chew) 81 mg PO DAILY [facility] Last Admin: 09/11/22 09:22 Dose: Not Given Documented By: HELGA Non-Admin Reason: Patient Refused Benztropine Mesylate (Benztropine Mesylate 1 Mg Tablet) 1 mg PO BID [facility] Last Admin: 09/11/22 09:22 Dose: Not Given Documented By: HELGA Non-Admin Reason: Patient Refused Divalproex Sodium (Divalproex Sodium Er 500 Mg Tab.Er.24h) 1,000 mg PO BEDTIME [facility] Last Admin: 09/10/22 20:40 Dose: Not Given Documented By: MATT Non-Admin Reason: Patient Refused Docusate Sodium (Docusate Sodium 100 Mg Capsule) 100 mg PO DAILY PRN PRN Reason: Constipation Ferrous Sulfate (Ferrous Sulfate 300 Mg/5 Ml Liquid) 300 mg PO TIDWM [facility] Last Admin: 09/11/22 11:42 Dose: Not Given Documented By: HELGA Non-Admin Reason: Patient Refused Haloperidol Lactate (Haloperidol Lactate 5 Mg/Ml Vial) 10 mg IM ONCE PRN PRN Reason: Agitation in dialysis Last Admin: 09/06/22 10:18 Dose: 10 mg Documented By: CHALINO Heparin Sodium (Porcine) (Heparin Sodium,Porcine 5,000 Unit/Ml Vial) 5,000 unit SUBCUT Q12H [facility] Last Admin: 09/11/22 04:44 Dose: Not Given Documented By: MATT Non-Admin Reason: Patient Refused Non-Formulary Medication (Thiothixene) 15 mg PO DAILY [facility] Last Admin: 09/11/22 09:22 Dose: 15 mg Documented By: HELGA Olanzapine (Olanzapine Odt 10 Mg Tab.Rapdis) 15 mg TRANSLINGU BEDTIME [facility] Last Admin: 09/10/22 20:40 Dose: Not Given Documented By: MATT Non-Admin Reason: Patient Refused Olanzapine (Olanzapine 10 Mg Vial) 2.5 mg IM Q6H PRN PRN Reason: anxiety/restlessness Olanzapine (Olanzapine 10 Mg Vial) 10 mg IM DAILY PRN PRN Reason: Psychosis Last Admin: 09/10/22 09:18 Dose: 10 mg Documented By: CHALINO Olanzapine (Olanzapine 10 Mg Vial) 10 mg IM BEDTIME PRN PRN Reason: Psychosis Ondansetron HCl (Ondansetron Hcl 4 Mg/2 Ml Vial) 4 mg IVPUSH Q8H PRN PRN Reason: Nausea and Vomiting Sodium Chloride (0.9 % Sodium Chloride Flush 3 Ml Syringe) 3 ml IVFLUSH QSLAFT [facility] Last Admin: 09/11/22 11:43 Dose: Not Given Documented By: HELGA Non-Admin Reason: No Access Sodium Chloride (0.9 % Sodium Chloride Flush 3 Ml Syringe) 3 ml IVFLUSH QSLAFT [facility] Last Admin: 09/11/22 11:43 Dose: Not Given Documented By: HELGA Non-Admin Reason: No Access Labs 09/08/22 10:21 09/08/22 10:21 Assessment and Plan (1) Schizoaffective disorder, bipolar type: Status: Acute (2) ESRD needing dialysis: Status: Acute Plan Pt is a 67-year-old male with a PMH significant for?schizoaffective disorder bipolar type, ESRD on HD M/W/F who is admitted to the medical floor for missed dialysis. Patient is a transfer from [facility] after he began refusing dialysis, . Given 5 mg Haldol/Ativan 1 mg IM with excellent response initially. Continues to intermittently refuse therapies specifically pills requiring injection. Spoke with Dr. Arora who will [facility] to see if dialysis can be maintained even if he refuses. receive full guardianship from the court 1.Schizoaffective disorder bipolar type -follow-up effect of olanzapine/Navane... Continue routine as ordered -await psych input 2.ESRD on HD //Mon -further treatments as per Renal -follow renals/divalents as allowed Full Code Zeina Requires ongoing hospitalization to pulse dose with olanzapine/navane to facilitate compliance Time Spent With Patient Time: Total time managing care of this patient today ____ minutes. Quality Stroke Does the patient have a stroke diagnosis?: No VTE Prior VTE?: No VTE Risk Level:: Medical - moderate - high VTE Device Contraindication: Treatment Not Indicated VTE Drug Contraindication: N/A - Med Ordered
[2022-09-11] MEDS: OLANZapine 10 MG VIAL IM (22:10)
--- NOTE | 2022-09-11 22:12 | PC.NURSE ---
pt refused all care VSs, ADLs, and PO meds. pt agreed to have IM injection Zyprexa. given by this nurse. will closely monitor s/s and behavioral change.
[2022-09-12 00:50] VITALS: RESP 18
--- NOTE | 2022-09-12 08:14 | PC.NURSE ---
Addendum entered by Ana Rogers RN 09/12/22 08:18: no anxiety or restlessness noted this morning, Pt otherwise pleasant in room sitting at the edge of bed. Original Note: Pt took PO Thiothixene, refused all other PO medications and vital signs at this time.
--- NOTE | 2022-09-12 10:25 | PM.PNNEP ---
Subjective Subjective Date of Service: 09/13/22 Interval history: The patient is seen extensively with his on multiple occasions throughout the day and case also reviewed with Dr. Correa from the hospitalist service chart reviewed. The patient has been intermittently refusing most of his medications attempt was made to bring some of his medications from home and their bottles to see if he would be less suspicious regarding what he is taking. He has required sedation generally in order to go to medically needed renal dialysis. Patient has been paranoid and suspicious regarding what is going on in dialysis and that he is not being given the medications that he normally takes at home despite it being given from the seem bottle. He is not responding to reassurance from his . His appetite has been poor and he has been mostly withdrawn and often not engaging very much. The patient's states that he started relapsing couple of weeks prior to admission gone away overnight and he was acting suspicious and paranoid apparently had stopped taking his medication. Dr. Correa felt that the patient had responded to Haldol previously given patient's felt that he had become quite confused after to this point he has so far not responding to the combination of olanzapine and Ativan The [employer] states that the patient's healthcare proxy has been affirmed he was transferred previously from the psychiatric unit to the medical floor in order to receive dialysis He did take a dose of Navane reportedly this morning Physical Exam Vital Signs: Vital Signs: Last Vital Signs Temp 96.8 F 09/07/22 15:45 Pulse 77 09/08/22 12:54 Resp 18 09/12/22 00:50 BP 112/67 09/08/22 12:54 Pulse Ox 98 09/07/22 15:45 O2 Del Method Room Air 09/07/22 15:45 BMI result Body Mass Index 28.7 Const: Other: General? alert, interactive, in no acute distress, generalized tremor mainly upper extremities Neck supple no JVD. CVS? regular rate rhythm, Respiratory lungs clear to auscultation, no respiratory distress, no wheeze, no rhonchi. Gastrointestinal abdomen soft, non tender, bowel sounds audible,no guarding , no rigidity. Extremities no edema. Skin no rash Neuro moving all 4 extremities, speech clear, upper extremities tremors. more General: no acute distress Objective Data Labs 09/08/22 10:21 09/08/22 10:21 Procedures Date of Service Date of Service: 09/13/22 Assessment & Plan Assessment and plan (1) ESRD needing dialysis: Status: Acute Plan ESRD: HD mwf but off shift d/t refusing HD--so now on TTS Psych:continues to refuse on/off and require psych meds pre HD Anemia MBD of CKD Time Spent With Patient Time: Total time managing care of this patient today ____ minutes. Progress Note: Quality Stroke Does the patient have a stroke diagnosis?: No
--- NOTE | 2022-09-12 11:38 | P.PNIM_ITS ---
Subjective Subjective Date of Service: 09/12/22 Interval History: Pt refusing all med except thiothixene Unable to obtain ROS, pt not speaking Review of Systems Review of Systems: Yes Unobtainable due to mental status Physical Exam Vital Signs: Vital Signs: Last Vital Signs Temp 96.8 F 09/07/22 15:45 Pulse 77 09/08/22 12:54 Resp 18 09/12/22 00:50 BP 112/67 09/08/22 12:54 Pulse Ox 98 09/07/22 15:45 O2 Del Method Room Air 09/07/22 15:45 BMI result Body Mass Index 28.7 Gen: in no acute distress, not speaking HEENT: sclera anicteric, moist mucus membranes Neck: supple Lungs: clear to auscultation bilaterally Heart: regular rate and rhythm, no murmurs Abd: soft, non-tender, non-distended Ext: no edema Skin: warm/well-perfused Neuro: alert, no focal findings within limits of pt's noncooperation Psych: restricted affect Objective Data Active Medications Acetaminophen (Acetaminophen 325 Mg Tablet) 650 mg PO Q6H PRN PRN Reason: Pain, Mild (Pain Scale 1-3) Aspirin (Aspirin 81 Mg Tab.Chew) 81 mg PO DAILY [facility] Last Admin: 09/12/22 08:11 Dose: Not Given Documented By: KAROL Non-Admin Reason: Patient Refused Benztropine Mesylate (Benztropine Mesylate 1 Mg Tablet) 1 mg PO BID [facility] Last Admin: 09/12/22 08:11 Dose: Not Given Documented By: KAROL Non-Admin Reason: Patient Refused Divalproex Sodium (Divalproex Sodium Er 500 Mg Tab.Er.24h) 1,000 mg PO BEDTIME [facility] Last Admin: 09/11/22 22:10 Dose: Not Given Documented By: NATO Non-Admin Reason: Patient Refused Docusate Sodium (Docusate Sodium 100 Mg Capsule) 100 mg PO DAILY PRN PRN Reason: Constipation Ferrous Sulfate (Ferrous Sulfate 300 Mg/5 Ml Liquid) 300 mg PO TIDWM [facility] Last Admin: 09/12/22 11:22 Dose: Not Given Documented By: KAROL Non-Admin Reason: Patient Refused Haloperidol Lactate (Haloperidol Lactate 5 Mg/Ml Vial) 10 mg IM ONCE PRN PRN Reason: Agitation in dialysis Last Admin: 09/06/22 10:18 Dose: 10 mg Documented By: CHALINO Heparin Sodium (Porcine) (Heparin Sodium,Porcine 5,000 Unit/Ml Vial) 5,000 unit SUBCUT Q12H [facility] Last Admin: 09/12/22 05:04 Dose: Not Given Documented By: NATO Non-Admin Reason: Patient Refused Non-Formulary Medication (Thiothixene) 15 mg PO DAILY [facility] Last Admin: 09/12/22 08:10 Dose: 15 mg Documented By: KAROL Olanzapine (Olanzapine Odt 10 Mg Tab.Rapdis) 15 mg TRANSLINGU BEDTIME [facility] Last Admin: 09/11/22 22:10 Dose: Not Given Documented By: NATO Non-Admin Reason: Patient Refused Olanzapine (Olanzapine 10 Mg Vial) 2.5 mg IM Q6H PRN PRN Reason: anxiety/restlessness Olanzapine (Olanzapine 10 Mg Vial) 10 mg IM DAILY PRN PRN Reason: Psychosis Last Admin: 09/10/22 09:18 Dose: 10 mg Documented By: CHALINO Olanzapine (Olanzapine 10 Mg Vial) 10 mg IM BEDTIME PRN PRN Reason: Psychosis Last Admin: 09/11/22 22:10 Dose: 10 mg Documented By: NATO Ondansetron HCl (Ondansetron Hcl 4 Mg/2 Ml Vial) 4 mg IVPUSH Q8H PRN PRN Reason: Nausea and Vomiting Sodium Chloride (0.9 % Sodium Chloride Flush 3 Ml Syringe) 3 ml IVFLUSH QSHIFT [facility] Last Admin: 09/12/22 07:57 Dose: Not Given Documented By: KAROL Non-Admin Reason: No Access Sodium Chloride (0.9 % Sodium Chloride Flush 3 Ml Syringe) 3 ml IVFLUSH QSHIFT [facility] Last Admin: 09/12/22 07:57 Dose: Not Given Documented By: KAROL Non-Admin Reason: No Access Labs 09/08/22 10:21 09/08/22 10:21 Assessment and Plan (1) Schizoaffective disorder, bipolar type: Status: Acute (2) ESRD needing dialysis: Status: Acute Plan d#19 67yo M with bipolar-type schizoaffective disorder, ESRD on HD MWF transferred from geriatric psychiatry to medicine service due to refusal of HD initially managed with IM haloperidol 5 mg + lorazepam 1 mg with good response continues to refuse therapies Dr Arora from Psychiatry checking with [facility] re pt disposition HCP, , invoked Currently on TuThSa HD with premedication as per Psychiatry # VTE ppx: [facility] # dispo: medically cleared for transfer back to Geriatric Psychiatry, Dr Arora notified Time Spent With Patient Time: Total time managing care of this patient today __25__ minutes. Quality Stroke Does the patient have a stroke diagnosis?: No VTE Prior VTE?: No VTE Risk Level:: Medical - moderate - high VTE Device Contraindication: Treatment Not Indicated VTE Drug Contraindication: N/A - Med Ordered
--- NOTE | 2022-09-12 11:47 | MHC.CLN ---
F/U DIET LIBERALIZED TO REGULAR PER MD RX. REQUIRES PSYCH MEDS PRIOR TO DIALYSIS. INTAKE CONTINUES USUALLY POOR. DID NOT TAKE ANYTHING THIS BREAKFAST PER SITTER. MD AWARE OF POOR INTAKE. PATIENT IS FULL CODE. HX OF REFUSING CARE AND LIKELY WOULD NOT TOLERATE SUPPLEMENTAL NUTRITION. ENSURE BID TO PROMOTE NUTRITIONAL INTAKE. PROVIDES 700 KCALS, 40 G PROTEIN. FOLLOW FOR INTAKE, DIALYSIS, AND LABS.
--- NOTE | 2022-09-12 12:35 | MHC.CM.PN ---
Per MD rounds patient is ready to return to [facility]. Care team requested order to evaluate the patient. Notified MD, order in per MD. Per MD note Psychiatrist follow up with [facility] re Dispo. CM will continue to follow.
--- NOTE | 2022-09-12 13:23 | P.CNPS_ITS ---
History of Present Illness Date of Service: 09/12 Chief Complaint: missed dialysis Reason for Consult: Follow-up from original consultation patient transferred from psychiatric unit had been refusing dialysis Requesting physician: Joe Correa Sources of Information: patient interviewed and chart reviewed Additional Sources of Information: Spoke with patient's HPI Narrative: The patient has been transferred from the [facility] unit to the medical floor. His has brought in his outpatient medications that he normally takes at [facility]. He keeps saying his medications the taste right that the dialysis is not right. Taking minimal intake of food has required premedication prior to going to dialysis. He has been somewhat more alert when seen and will engage in conversation particularly with his present he is not agitated or combative but flat and repeatedly stating he wants to return home. His has been quite supportive of his getting his dialysis treatments in stating that normally the patient quite faithful regarding his treatment and there is a or history of recurrent paranoia. He did go off Navane appears to be a weaker more prior to admission Past Psychiatric History: Bipolar d/o ? psychosis . M 5 admissions and [facility] in 1990, No Op providers currently? First psychotic/manic break in early . He has a prior admission at on the fall of 2021 Creatinine has improved Personal & Social History: Patient lives at home with his no substance abuse. Normally things are a quite well at home when he is not in an episode. 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 He eventually sits up and knows where he is that he is on medical floor there is some slowed mentation he states he wants to go home things will be all right with his medication home and doing dialysis at home. No response when given information regarding prior to discharge need to know that he is safe taking his dialysis which he states he wants to do no desire to or in dialysis but suspicious of medication and dialysis treatment that he is receiving he is open perhaps to taking medication from home but even there he says that he thinks he is not being given the right medication. His mood is flat somewhat dysphoric blunted no gross hallucinations insight judgment quite impaired Medications Medications Current Medications Acetaminophen (Acetaminophen 325 Mg Tablet) 650 mg PO Q6H PRN PRN Reason: Pain, Mild (Pain Scale 1-3) Aspirin (Aspirin 81 Mg Tab.Chew) 81 mg PO DAILY [facility] Last Admin: 09/12/22 08:11 Dose: Not Given Benztropine Mesylate (Benztropine Mesylate 1 Mg Tablet) 1 mg PO BID [facility] Last Admin: 09/12/22 08:11 Dose: Not Given Divalproex Sodium (Divalproex Sodium Er 500 Mg Tab.Er.24h) 1,000 mg PO BEDTIME [facility] Last Admin: 09/11/22 22:10 Dose: Not Given Docusate Sodium (Docusate Sodium 100 Mg Capsule) 100 mg PO DAILY PRN PRN Reason: Constipation Ferrous Sulfate (Ferrous Sulfate 300 Mg/5 Ml Liquid) 300 mg PO TIDWM [facility] Last Admin: 09/12/22 11:22 Dose: Not Given Haloperidol Lactate (Haloperidol Lactate 5 Mg/Ml Vial) 10 mg IM ONCE PRN PRN Reason: Agitation in dialysis Last Admin: 09/06/22 10:18 Dose: 10 mg Heparin Sodium (Porcine) (Heparin Sodium,Porcine 5,000 Unit/Ml Vial) 5,000 unit SUBCUT Q12H [facility] Last Admin: 09/12/22 05:04 Dose: Not Given Non-Formulary Medication (Thiothixene) 15 mg PO DAILY [facility] Last Admin: 09/12/22 08:10 Dose: 15 mg Olanzapine (Olanzapine Odt 10 Mg Tab.Rapdis) 15 mg TRANSLINGU BEDTIME [facility] Last Admin: 09/11/22 22:10 Dose: Not Given Olanzapine (Olanzapine 10 Mg Vial) 2.5 mg IM Q6H PRN PRN Reason: anxiety/restlessness Olanzapine (Olanzapine 10 Mg Vial) 10 mg IM DAILY PRN PRN Reason: Psychosis Last Admin: 09/10/22 09:18 Dose: 10 mg Olanzapine (Olanzapine 10 Mg Vial) 10 mg IM BEDTIME PRN PRN Reason: Psychosis Last Admin: 09/11/22 22:10 Dose: 10 mg Ondansetron HCl (Ondansetron Hcl 4 Mg/2 Ml Vial) 4 mg IVPUSH Q8H PRN PRN Reason: Nausea and Vomiting Sodium Chloride (0.9 % Sodium Chloride Flush 3 Ml Syringe) [facility] Last Admin: 09/12/22 07:57 Dose: Not Given Sodium Chloride (0.9 % Sodium Chloride Flush 3 Ml Syringe) [facility] Last Admin: 09/12/22 07:57 Dose: Not Given Allergies Allergies Allergy/AdvReac Type Severity Reaction Status Date / Time No Known Allergies Allergy Verified 09/06/22 09:01 Assessment & Plan Assessment & Plan (1) ESRD needing dialysis: Status: Acute Code(s): N18.6 - End stage renal disease; Z99.2 - Dependence on renal dialysis (2) Anemia: Status: Acute Code(s): D64.9 - Anemia, unspecified (3) Schizoaffective disorder, bipolar type: Status: Acute Code(s): F25.0 - Schizoaffective disorder, bipolar type (4) Noncompliance by declining intervention or support: Status: Acute Code(s): Z91.199 - Patient's noncompliance with other medical treatment and regimen due to unspecified reason Plan Olanzapine 10 mg IM ordered if patient refusing antipsychotic dosing in the morning and bedtime. If olanzapine not effective would transition to Haldol IM as the closest to thiothixene we might be able to get in and injectable and would start at a lower dose. Encourage patient to accept dialysis and hopefully to take medications from bottles that he uses at home will help address his paranoia. His is quite supportive Consider transfer back to Psychiatry patient has affirmed healthcare proxy monitor nutrition and intake creatinine again has elevated Total time managing care of this patient today _40___ minutes. Guardian/Caregiver educated on: medication risk/benefits and medical condition Informed Consent: understands
[2022-09-12] MEDS: OLANZapine 10 MG VIAL IM (21:09)
[2022-09-12 22:11] VITALS: RESP 18
[2022-09-13 04:00] VITALS: RESP 18
--- NOTE | 2022-09-13 08:21 | PC.NURSE ---
Pt refusing vitals and all PO medications except Thiothixene was taken without issue, no agitation or anxiety noted, pt resting in bed.
--- NOTE | 2022-09-13 10:13 | PM.PNNEP ---
Subjective Subjective Date of Service: 09/13/22 Interval history: Pt refusing all med except thiothixene Unable to obtain ROS, pt not speaking Physical Exam Vital Signs: Vital Signs: Last Vital Signs Temp 96.8 F 09/07/22 15:45 Pulse 77 09/08/22 12:54 Resp 18 09/13/22 04:00 BP 112/67 09/08/22 12:54 Pulse Ox 98 09/07/22 15:45 O2 Del Method Room Air 09/07/22 15:45 BMI result Body Mass Index 28.7 Const: Other: General? alert, interactive, in no acute distress, generalized tremor mainly upper extremities Neck supple no JVD. CVS? regular rate rhythm, Respiratory lungs clear to auscultation, no respiratory distress, no wheeze, no rhonchi. Gastrointestinal abdomen soft, non tender, bowel sounds audible,no guarding , no rigidity. Extremities no edema. Skin no rash Neuro moving all 4 extremities, speech clear, upper extremities tremors. more Objective Data Labs 09/08/22 10:21 09/08/22 10:21 Procedures Date of Service Date of Service: 09/13/22 Assessment & Plan Assessment and plan (1) ESRD needing dialysis: Status: Acute Plan ESRD: HD mwf but off shift d/t refusing HD--so now on TTS We will continue to dialyze 3 times a week. However he has been cutting down on the treatment time Psych:continues to refuse on/off and require psych meds pre HD Anemia MBD of CKD Time Spent With Patient Time: Total time managing care of this patient today ____ minutes. Progress Note: Quality Stroke Does the patient have a stroke diagnosis?: No
--- NOTE | 2022-09-13 10:43 | P.PNIM_ITS ---
Subjective Subjective Date of Service: 09/13/22 Interval History: Not speaking to me, though awake. Due for HD today. Review of Systems Review of Systems: Yes Unobtainable due to mental condition Physical Exam Vital Signs: Vital Signs: Last Vital Signs Temp 96.8 F 09/07/22 15:45 Pulse 77 09/08/22 12:54 Resp 18 09/13/22 04:00 BP 112/67 09/08/22 12:54 Pulse Ox 98 09/07/22 15:45 O2 Del Method Room Air 09/07/22 15:45 BMI result Body Mass Index 28.7 Gen: in no acute distress, not speaking HEENT: sclera anicteric, moist mucus membranes Neck: supple Lungs: clear to auscultation bilaterally Heart: regular rate and rhythm, no murmurs Abd: soft, non-tender, non-distended Ext: no edema Skin: warm/well-perfused Neuro: alert, no focal findings within limits of pt's noncooperation Psych: restricted affect Objective Data Active Medications Acetaminophen (Acetaminophen 325 Mg Tablet) 650 mg PO Q6H PRN PRN Reason: Pain, Mild (Pain Scale 1-3) Aspirin (Aspirin 81 Mg Tab.Chew) 81 mg PO DAILY [facility] Last Admin: 09/13/22 08:18 Dose: Not Given Documented By: KAROL Non-Admin Reason: Patient Refused Benztropine Mesylate (Benztropine Mesylate 1 Mg Tablet) 1 mg PO BID [facility] Last Admin: 09/13/22 08:18 Dose: Not Given Documented By: KAROL Non-Admin Reason: Patient Refused Divalproex Sodium (Divalproex Sodium Er 500 Mg Tab.Er.24h) 1,000 mg PO BEDTIME [facility] Last Admin: 09/12/22 20:55 Dose: Not Given Documented By: PATRIA Non-Admin Reason: Patient Refused Docusate Sodium (Docusate Sodium 100 Mg Capsule) 100 mg PO DAILY PRN PRN Reason: Constipation Ferrous Sulfate (Ferrous Sulfate 300 Mg/5 Ml Liquid) 300 mg PO TIDWM [facility] Last Admin: 09/13/22 08:17 Dose: Not Given Documented By: KAROL Non-Admin Reason: Patient Refused Haloperidol Lactate (Haloperidol Lactate 5 Mg/Ml Vial) 10 mg IM ONCE PRN PRN Reason: Agitation in dialysis Last Admin: 09/06/22 10:18 Dose: 10 mg Documented By: CHALINO Heparin Sodium (Porcine) (Heparin Sodium,Porcine 5,000 Unit/Ml Vial) 5,000 unit SUBCUT Q12H [facility] Last Admin: 09/13/22 05:13 Dose: Not Given Documented By: PATRIA Non-Admin Reason: Patient Refused Non-Formulary Medication (Thiothixene) 15 mg PO DAILY [facility] Last Admin: 09/13/22 08:17 Dose: 15 mg Documented By: KAROL Olanzapine (Olanzapine Odt 10 Mg Tab.Rapdis) 15 mg TRANSLINGU BEDTIME [facility] Last Admin: 09/12/22 20:55 Dose: Not Given Documented By: PATRIA Non-Admin Reason: Patient Refused Olanzapine (Olanzapine 10 Mg Vial) 2.5 mg IM Q6H PRN PRN Reason: anxiety/restlessness Olanzapine (Olanzapine 10 Mg Vial) 10 mg IM DAILY PRN PRN Reason: Psychosis Last Admin: 09/12/22 21:09 Dose: 10 mg Documented By: PATRIA Olanzapine (Olanzapine 10 Mg Vial) 10 mg IM BEDTIME PRN PRN Reason: Psychosis Last Admin: 09/11/22 22:10 Dose: 10 mg Documented By: NATO Ondansetron HCl (Ondansetron Hcl 4 Mg/2 Ml Vial) 4 mg IVPUSH Q8H PRN PRN Reason: Nausea and Vomiting Sodium Chloride (0.9 % Sodium Chloride Flush 3 Ml Syringe) 3 ml IVFLUSH QSWAFT [facility] Last Admin: 09/13/22 07:06 Dose: Not Given Documented By: KAROL Non-Admin Reason: No Access Sodium Chloride (0.9 % Sodium Chloride Flush 3 Ml Syringe) 3 ml IVFLUSH QSHIFT [facility] Last Admin: 09/13/22 07:06 Dose: Not Given Documented By: KAROL Non-Admin Reason: No Access Labs 09/08/22 10:21 09/08/22 10:21 Assessment and Plan (1) Schizoaffective disorder, bipolar type: Status: Acute (2) ESRD needing dialysis: Status: Acute Plan d#20 67yo M with bipolar-type schizoaffective disorder, ESRD on HD MWF transferred from geriatric psychiatry to medicine service due to refusal of HD initially managed with IM haloperidol 5 mg + lorazepam 1 mg with good response continues to refuse therapies Dr Arora from Psychiatry checking with [facility] re pt disposition HCP, , invoked Currently on TuThSa HD with premedication as per Psychiatry # VTE ppx: [facility]FH # dispo: medically cleared for transfer back to Geriatric Psychiatry, CARE Team notified, Dr Arora notified Time Spent With Patient Time: Total time managing care of this patient today ___25_ minutes. Quality Stroke Does the patient have a stroke diagnosis?: No VTE Prior VTE?: No VTE Risk Level:: Medical - moderate - high VTE Device Contraindication: Treatment Not Indicated VTE Drug Contraindication: N/A - Med Ordered
--- NOTE | 2022-09-13 12:34 | MHC.CM.PN ---
Addendum entered by Charlene Santana 09/13/22 16:06: The patient will transfer to [facility] this afternoon. Addendum entered by Charlene Santana 09/13/22 14:40: The Care[facility] was contacted to follow up on transfer. Joey stated that the plan is [facility]. Transfer day and time are not known yet. The patient may transfer later today. Original Note: Per CM director patient will be INPT LOC [facility], pending Care Team documentation.
--- NOTE | 2022-09-13 13:37 | P.CNPS_ITS ---
History of Present Illness Date of Service: 09/13/22 Chief Complaint: missed dialysis Reason for Consult: Management of bipolar disorder Requesting physician: Joe Correa Discussed with referring provider: Yes Sources of Information: patient interviewed and chart reviewed Additional Sources of Information: Patient seen with his HPI Narrative: With the patient has been more accepting of dialysis and has been more accepting of medication bottled from his home medication . Patient is wish use him to get treatment on the psychiatric floor now that he is more accepting treatment. He is eating some Healthcare proxy has been afirmed patient remains withdrawn depressed flat with limited insight ongoing paranoia Past Psychiatric History: Bipolar d/o ? psychosis . Hx M 5 admissions and [facility] in 1990, No Op providers currently? First psychotic/manic break in early . 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 He eventually sits up and knows where he is that he is on medical floor there is some slowed mentation he states he wants to go home things will be all right with his medication home and doing dialysis at home. No response when given information regarding prior to discharge need to know that he is safe taking his dialysis which he states he wants to do no desire to or in dialysis but suspicious of medication and dialysis treatment that he is receiving he is open perhaps to taking medication from home but even there he says that he thinks he is not being given the right medication. His mood is flat somewhat dysphoric blunted no gross hallucinations insight judgment quite impaired Medications Medications Current Medications Acetaminophen (Acetaminophen 325 Mg Tablet) 650 mg PO Q6H PRN PRN Reason: Pain, Mild (Pain Scale 1-3) Aspirin (Aspirin 81 Mg Tab.Chew) 81 mg PO DAILY [facility] Last Admin: 09/13/22 08:18 Dose: Not Given Benztropine Mesylate (Benztropine Mesylate 1 Mg Tablet) 1 mg PO BID [facility] Last Admin: 09/13/22 08:18 Dose: Not Given Divalproex Sodium (Divalproex Sodium Er 500 Mg Tab.Er.24h) 1,000 mg PO BEDTIME [facility] Last Admin: 09/12/22 20:55 Dose: Not Given Docusate Sodium (Docusate Sodium 100 Mg Capsule) 100 mg PO DAILY PRN PRN Reason: Constipation Ferrous Sulfate (Ferrous Sulfate 300 Mg/5 Ml Liquid) 300 mg PO TIDWM [facility] Last Admin: 09/13/22 11:06 Dose: Not Given Haloperidol Lactate (Haloperidol Lactate 5 Mg/Ml Vial) 10 mg IM ONCE PRN PRN Reason: Agitation in dialysis Last Admin: 09/06/22 10:18 Dose: 10 mg Heparin Sodium (Porcine) (Heparin Sodium,Porcine 5,000 Unit/Ml Vial) 5,000 unit SUBCUT Q12H [facility] Last Admin: 09/13/22 05:13 Dose: Not Given Non-Formulary Medication (Thiothixene) 15 mg PO DAILY [facility] Last Admin: 09/13/22 08:17 Dose: 15 mg Olanzapine (Olanzapine Odt 10 Mg Tab.Rapdis) 15 mg TRANSLINGU BEDTIME [facility] Last Admin: 09/12/22 20:55 Dose: Not Given Olanzapine (Olanzapine 10 Mg Vial) 2.5 mg IM Q6H PRN PRN Reason: anxiety/restlessness Olanzapine (Olanzapine 10 Mg Vial) 10 mg IM DAILY PRN PRN Reason: Psychosis Last Admin: 09/12/22 21:09 Dose: 10 mg Olanzapine (Olanzapine 10 Mg Vial) 10 mg IM BEDTIME PRN PRN Reason: Psychosis Last Admin: 09/11/22 22:10 Dose: 10 mg Ondansetron HCl (Ondansetron Hcl 4 Mg/2 Ml Vial) 4 mg IVPUSH Q8H PRN PRN Reason: Nausea and Vomiting Sodium Chloride (0.9 % Sodium Chloride Flush 3 Ml Syringe) 3 ml IVFLUSH [facility] Last Admin: 09/13/22 07:06 Dose: Not Given Sodium Chloride (0.9 % Sodium Chloride Flush 3 Ml Syringe) 3 ml IVFLUSH [facility] Last Admin: 09/13/22 07:06 Dose: Not Given Allergies Allergies Allergy/AdvReac Type Severity Reaction Status Date / Time No Known Allergies Allergy Verified 09/06/22 09:01 Assessment & Plan Assessment & Plan (1) ESRD needing dialysis: Status: Acute Code(s): N18.6 - End stage renal disease; Z99.2 - Dependence on renal dialysis (2) Schizoaffective disorder, bipolar type: Status: Acute Code(s): F25.0 - Schizoaffective disorder, bipolar type Plan Agree with transfer to psychiatric floor encourage dialysis acceptance may need alternative treatments such as Jarno has not yet responded to [facility] encourage treatment acceptance. Case reviewed with medical floor and with patient's Total time managing care of this patient today __25__ minutes. Guardian/Caregiver educated on: medication risk/benefits, therapeutic strategies and medical condition Informed Consent: understands
--- NOTE | 2022-09-13 13:42 | PC.NURSE ---
Patient scheduled for dialysis at 12:30 today, patient agreed and brought to dialysis at 12:45, patient compliant with transfer to 4th floor dialysis room, no agitation or anxiety reported.
--- NOTE | 2022-09-13 14:58 | PM.DS ---
DS: Providers Provider Date of Service: 09/13/22 Date of admission: 08/25/22 17:32 Date of discharge: 09/13/22 Primary care physician: CARLOS Pretty Consults: 08/25/22 17:36 Consult to Nephrology Routine Consulting Provider: Bradley Pena Reason for consultation: ESKD on HD M/W/F, missed last 2 sessions 08/26/22 14:00 Consult for Sitter Routine Reason for consultation: flight risk Has provider been notified: Yes 08/29/22 10:45 Consult to Psychiatry Stat Consulting Provider: Psych Covering Reason for consultation: psychosis Has provider been notified: Yes 09/12/22 10:36 Consult to Care Team Routine Comment: Reason for consultation: medically cleared for transfer back to [facility] DS: Diagnosis Discharge Diagnosis (1) ESRD needing dialysis: Status: Acute (2) Anemia: Status: Acute (3) Schizoaffective disorder, bipolar type: Status: Acute (4) Noncompliance by declining intervention or support: Status: Acute DS: Summary Hospital Course Hospital Course: from admission H+P by hospitalist CARLOS Briggs, 08/25/22: Pt is a 67-year-old male with a PMH significant for?schizoaffective disorder bipolar type, ESRD on HD M/W/F who is admitted to the medical floor for missed dialysis. Patient is a transfer from [facility] after he began refusing dialysis.? Patient was originally admitted to Psychiatry from the emergency room on 08/23/2022 for exacerbation of depressive symptoms and disorganized behavior.? Patient was admitted to [facility] where he was noted to be grossly disorganized, with poor eye contact, ambulating slowly, and having significantly delayed response. On 08/24/2022 patient refused all of his medications and refused to go to dialysis. Patient's is his healthcare proxy and she was then invoked and expressed her interest in having the patient continue with dialysis. During interview pt denies any medical complaints.? Patient partly cooperative with interview and examination, though he refuses to participate in some questions and commands.? Patient states that he refused dialysis because he ?wants to wait,? but will not elaborate any further than that. Labs on 08/23/2022 were significant for stable H&H of 9.4/28.4, MCV of 104.8, BUN of 29, creatinine of 8.37, and valproic acid undetectable. Pt will be admitted to the medical floor for further treatment and management of missed dialysis. 67yo M with bipolar-type schizoaffective disorder, ESRD on HD MWF transferred from geriatric psychiatry to medicine service due to refusal of HD. Managed with periodic doses of IM haloperidol and lorazepam according to psychaitric consultation. Continued to refuse many PO medications due to paranoia but consistently took thiothixene. By 09/13/22, went to HD without issue and as such was transferred back to Psychiatry for ongoing psychiatric care, with plans for ongoing HD. Time Spent with Patient Time attestation: Total time managing care of this patient today __35__ minutes. Discharge coordination time: Greater than 30 minutes Quality: Safe Use of Opioids Does Pt have an Active Cancer Diagnosis on the Problem List?: No Quality: Stroke Does the patient have a stroke diagnosis?: No Physical Exam Vital Signs: Vital Signs: Last Vital Signs Temp 96.8 F 09/07/22 15:45 Pulse 77 09/08/22 12:54 Resp 18 09/13/22 04:00 BP 112/67 09/08/22 12:54 Pulse Ox 98 09/07/22 15:45 O2 Del Method Room Air 09/07/22 15:45 BMI result Body Mass Index 28.7 Gen: in no acute distress, not speaking HEENT: sclera anicteric, moist mucus membranes Neck: supple Lungs: clear to auscultation bilaterally Heart: regular rate and rhythm, no murmurs Abd: soft, non-tender, non-distended Ext: no edema Skin: warm/well-perfused Neuro: alert, no focal findings within limits of pt's noncooperation Psych: restricted affect DS: Data Data Completed and Pending Completed studies during hospitalization [Text1]: Laboratory Results WBC 5.1 X10*3/uL (4.8-10.8) 09/08/22 10:21 RBC 3.25 X10*6/uL (4.60-5.80) L 09/08/22 10:21 Hgb 11.2 g/dl (14.0-18.0) L 09/08/22 10:21 Hct 30.9 % (42.0-52.0) L 09/08/22 10:21 MCV 95.1 fL (80.0-98.0) 09/08/22 10:21 MCH 34.5 pg (27.0-33.0) H 09/08/22 10:21 MCHC 36.2 g/dl (31.0-36.0) H 09/08/22 10:21 RDW 12.7 % (11.0-16.0) 09/08/22 10:21 Plt Count 148 X10*3/uL (160-400) L 09/08/22 10:21 MPV 10.3 fL (9.4-12.4) 09/08/22 10:21 Immature Gran % (Auto) 0.2 % (0.0-0.4) 08/29/22 11:36 Neut % (Auto) 67.3 % (45-73) 08/29/22 11:36 Lymph % (Auto) 21.0 % (20-40) 08/29/22 11:36 [place] % (Auto) 9.7 % (2-11) 08/29/22 11:36 Eos % (Auto) 1.2 % (0-4) 08/29/22 11:36 Baso % (Auto) 0.6 % (0-2) 08/29/22 11:36 Lymph # (Auto) 1.0 X10*3/uL (1.2-4.9) L 08/29/22 11:36 [place] # (Auto) 0.5 X10*3/uL (0.1-1.2) 08/29/22 11:36 Eos # (Auto) 0.1 X10*3/uL (0.0-0.4) 08/29/22 11:36 Baso # (Auto) 0.0 X10*3/uL (0.0-0.2) 08/29/22 11:36 Abs Immat Gran (auto) 0.01 X10*3/uL (0.00-0.03) 08/29/22 11:36 Absolute Neuts (auto) 3.3 x10*3/uL (2.0-8.3) 08/29/22 11:36 Absolute Nucleated RBC 0.000 X10*3/uL (0.0-0.012) 09/08/22 10:21 Nucleated RBC % (auto) 0.0 /100WBC (0.0-0.2) 09/08/22 10:21 Sodium 136 mmol/L (135-145) 09/08/22 10:21 Potassium 3.2 mmol/L (3.3-5.1) L 09/08/22 10:21 Chloride 99 mmol/L (96-108) 09/08/22 10:21 Carbon Dioxide 22 mmol/L (22-29) 09/08/22 10:21 Anion Gap 18 (12-20) 09/08/22 10:21 BUN 42 mg/dL (9-16) H 09/08/22 10:21 Creatinine 9.12 mg/dL (0.5-1.4) H* 09/08/22 10:21 Estim Creat Clear Calc 9.1 09/08/22 10:21 Estimated GFR 6 09/08/22 10:21 POC Glucose 106 mg/dL (60-115) 09/07/22 16:06 Random Glucose 83 mg/dL (60-115) 08/29/22 21:17 Fasting Glucose 98 mg/dL (60-99) 09/08/22 10:21 Calcium 9.3 mg/dL (8.4-10.2) 09/08/22 10:21 Total Bilirubin 1.1 mg/dL (0.0-1.0) H 09/08/22 10:21 AST 11 U/L (5-37) 09/08/22 10:21 ALT 18 U/L (0-40) 09/08/22 10:21 Alkaline Phosphatase 68 U/L (39-117) 09/08/22 10:21 Total Protein 7.0 g/dL (6.5-8.0) 09/08/22 10:21 Albumin 4.4 g/dL (3.5-5.0) 09/08/22 10:21 Discharge Plan Discharge Anticipated Discharge Date/Time: 09/13/22 14:46 Patient Disposition: Xfer Psychiatric Hosp Discharge Diagnosis: ESRD on HD, Referrals: Brooke Meza PA [Primary Care Provider] - 1 Week Discharge Medications: New acetaminophen 325 mg Tablet 650 mg PO Q6H PRN (Reason: Pain, Mild (Pain Scale 1-3)) Qty: 1 0RF thiothixene 5 mg Capsule 15 mg PO DAILY Qty: 1 0RF olanzapine 10 mg Tablet,Disintegrating 15 mg translingual BEDTIME Qty: 1 0RF Continued aspirin 81 mg Tablet,Delayed Release (Dr/Ec) 81 mg PO DAILY 30 Days Qty: 30 0RF benztropine 1 mg Tablet 1 mg PO BID 30 Days Qty: 60 0RF ferric citrate 210 mg iron Tablet 210 mg PO TID Qty: 90 0RF thiothixene 5 mg capsule 15 mg PO DAILY 30 Days Qty: 90 0RF divalproex 500 mg tablet extended release 24 hr 1,000 mg PO BEDTIME 30 Days Qty: 60 0RF Discontinued olanzapine 15 mg tablet 15 mg PO BEDTIME 30 Days Qty: 30 0RF Discharge Orders: Discharge Order (Routine); Ordered 09/13/22 Ordered By: Andrey Mendez Diet: Advance to usual diet Activity on Discharge: As tolerated Stand Alone Forms: Patient Portal Discharge page Care Plan Goals: renal and mental health Health Concerns: ESRD on HD schizoaffective disorder Plan of Treatment: return to geriatric psychiatry continue dialysis TuThSa Assessment: See Discharge Summary.
[2022-09-13 16:00] VITALS: BP 107/62; PULSE 86; RESP 18
== END 2022-09-13 17:32 | DRG 682 ==
PROVIDERS: Hospitalist; Internal Medicine; Admitting Provider Student in an Organized Health Care Education/Training Program; PCP Physician Assistant; Visit Provider Family Medicine
DX: I12.0 Hypertensive chronic kidney disease with stage 5 chronic kidney disease or end stage renal disease (principal); N18.6 End stage renal disease; F06.1 Catatonic disorder due to known physiological condition; N25.0 Renal osteodystrophy; E87.5 Hyperkalemia; R62.7 Adult failure to thrive; Z68.28 Body mass index [BMI] 28.0-28.9, adult; F25.0 Schizoaffective disorder, bipolar type; D63.1 Anemia in chronic kidney disease; Z91.158 Patient's noncompliance with renal dialysis for other reason; Z99.2 Dependence on renal dialysis; Z79.82 Long term (current) use of aspirin; Z79.899 Other long term (current) drug therapy
CPT/HCPCS: 36415; 80048; 80053; 82947; 85025; 85027; 90999; J1643; J2060

== ENCOUNTER → 2022-08-25 17:32 | Outpatient (BNV) | payer MEDICARE, SELFPAY | PROVIDERS: Admitting Provider Student in an Organized Health Care Education/Training Program; PCP Physician Assistant; Visit Provider Psychiatry & Neurology Psychiatry | DX: F25.0 Schizoaffective disorder, bipolar type (principal); N18.6 End stage renal disease; Z99.2 Dependence on renal dialysis | CPT/HCPCS: 90792; 99232; 99233 ==

== ENCOUNTER 2022-09-13 17:46 | Inpatient (IN) | payer MEDICARE, SELFPAY ==
[2022-09-13 17:40] VITALS: BP 135/98; RESP 20; TEMP 36; O2SAT 98
--- OUTSIDE RECORDS SUMMARY | 2022-09-13 17:49 | XMS_ITS | CCD ---
Author Name Unknown Address [address] [place] [address] [id number] Organization Unknown Address [address] [place] [address] [id number] Care Team Providers [facility] Nurse Practitioner Name Role Phone LILY HUERTA Attending Physician [phone] Vijaya PRONI Deal Registered Nurse [phone] ESTHER Levy Registered Nurse [phone] Vital Signs Vital Sign Value Unit Date/Time [...] Code Start Date Resolved Date Status Tremor [id number] 03/04/2022 Resolved Bipolar disorder [id number] 03/04/2022 Resolved Renal dialysis [id number] 03/04/2022 Resolved Results GLUCOSE FINGER/HEEL CAPILLAR Y [...] Available. Discharge Instructions You were admitted to [facility] on 03/04/2022 00:16 with a principal diagnosis of Encounter for general psychiatric examination, requested by authority You had the following tests done:GLUCOSE FINGER/HEEL CAPILLARY You were discharged from [facility] on 03/04/2022 08:00 Should you have [...]
--- NOTE | 2022-09-13 18:53 | PC.ADMIT ---
Pt. Escorted onto unit 17:30 via WC accompanied by this data analyst report writer and another RN. Pt. assisted to change into johnnies and skin and contraband check performed by this data analyst report writer and another RN. Pt. minimally verbal and declining to participate in admission process. VSS except unable to obtain pulse due to pt. tremors and refusal to be touched. Pt. did report he is weak due to earlier dialysis treatment. Pt. uses a walker at baseline, but unable to tolerate walking due to weakness and unsteady on feet. Has order for 1:1. Pt. admitted on 12 B but is invoked and affirmed HCP.
[2022-09-13] MEDS: Divalproex Sodium ER 500 MG TAB.ER.24H 1000 MG PO (21:23)
--- NOTE | 2022-09-13 21:23 | PC.NURSE ---
patient agreed to take only 1 tablet of depakote,refused all other night time meds
--- NOTE | 2022-09-14 06:17 | PC.NURSE ---
Pt is alert and oriented. Pt refuses NS 3ml flush and heparin Iml Sub-cute. Pt states that he would like to meet with the provider before he will take any meds.
[2022-09-14 11:47] VITALS: BMI 28.7
--- NOTE | 2022-09-14 12:09 | MHC.CLN ---
NUTRITION CONSULT FOR POOR INTAKE. DIET LIBERALIZED TO REGULAR DUE TO HISTORY OF POOR PO. ENSURE BID PROVIDES ADDITIONAL 700 KCALS, 40 G PROTEIN. MOVED TO UNIT ON 09/13 FROM [facility]. FOLLOWED BY RD ON [facility]. REQUIRES PSYCH MEDS PRIOR TO DIALYSIS. 09/13 ATE 1/2 OF ROAST BEEF SANDWICH, 09/14 ATE 75% OF BREAKFAST. HX OF POOR PO/REFUSING MEALS. MD AWARE OF HX POOR INTAKE. PATIENT IS FULL CODE. CONSIDER SUPPLEMENTAL NUTRITION IF PO CONTINUES POOR. FOLLOW FOR INTAKE, DIALYSIS, AND LABS.
[2022-09-14 13:27] VITALS: BP 93/58; PULSE 86; RESP 16; TEMP 36.3; O2SAT 98
--- NOTE | 2022-09-14 13:33 | HO.PSYADMNOT ---
HPI Date of Service: 09/14/22 Chief Complaint: missed dialysis- psychosis bipolar Sources of Information: patient interviewed, chart reviewed and crisis/core team assessment reviewed HPI Subjective Notes: Strange Warning and Conditional Voluntary (By healthcare proxy) Healthcare Proxy: Yes Narrative: The patient is a 67-year-old male, , living with his with good social support with a past history of bipolar disorder, end-stage renal disease on dialysis, admitted initially for exacerbation of psychosis and mood lability but transferred to Medicine since he was refusing dialysis. The patient was transferred back from Medicine after being medically cleared after several dialysis. While he was in Medicine, we affirmed his healthcare proxy. On admission, the patient reported that he did not feel well, he was on his bed most of the time, with poor eye contact despondent, with thought blocking. He stated that he wants to go home and I explained that he needs to be fully compliant with treatment. The patient is unable to process information. Today I spoke with his who is the affirmed healthcare proxy and she wants to have all the medications needed in order to get him back at his baseline. Apparently, at baseline the patient is highly functional and not nearly catatonic like now. We will continue treatment with the medical team. Past Psychiatric History: Bipolar d/o ? psychosis . M 5 admissions and [facility] in 1990, No Op providers currently? First psychotic/manic break in early . 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 Substance History: Denies Trauma History: Deferred Diagnostics Vital Signs (24Hr): Vital Signs - 24 hr 09/13/22 17:40 09/14/22 13:27 Temperature 96.8 F 97.3 F Pulse Rate 86 Respiratory Rate 20 16 Blood Pressure 135/98 H 93/58 L Pulse Oximetry 98 98 Oxygen Delivery Method Room Air Room Air BMI result Body Mass Index 28.7 Meds/Allergies Allergies Allergies Allergy/AdvReac Type Severity Reaction Status Date / Time No Known Allergies Allergy Verified 09/06/22 09:01 Mental Status Exam Mental Status Exam Patient Appearance: Appropriate Patient Orientation: Person and Situation Level of Consciousness: Awake and Appropriate Patient Behavior: Guarded and Passive Mood Description: Withdrawn Affect Description: Constricted Patient Cognition Impaired: Yes Ability to Follow Directions: Good Speech Pattern: Clear Hallucinations: None Delusions: Paranoid Ideation and Ideas of Reference Thought Process: Illogical, Distracted and Confusion Thought Content: positive for Poverty of Content Judgement: Poor Assessment & Plan Assessment & Plan (1) Schizoaffective disorder, bipolar type: Status: Acute Code(s): F25.0 - Schizoaffective disorder, bipolar type (2) ESRD needing dialysis: Status: Acute Code(s): N18.6 - End stage renal disease; Z99.2 - Dependence on renal dialysis Plan The patient is an elderly male with a past history of schizoaffective disorder bipolar type and end-stage renal disease on dialysis was admitted for exacerbation of psychosis, noncompliance with treatment and worsening of medical condition due to refusal to have dialysis. He was initially assessed here and transferred to the medical unit for medical stabilization, transferred back after several sessions of dialysis. Also her healthcare proxy had been affirm in court. Plan 1. Continue with dialysis and other medical treatment. 2. Continue with Zyprexa with backup IM if patient refuses. 3. Reassessment with results Patient educated on: diagnosis, medication risk/benefits and therapeutic strategies Informed Consent: does not understand Reason for continued inpatient stay Substantial Risk for: harm to self, inability to function, rapid decompensation and med/psych decompensation Statement Statement: I have reviewed the history and physical and performed a pertinent examination on my patient. No changes have occurred unless specified. If the History and Physical was not performed prior to admission, the Hospitalist's service will be consulted for completing the admission physical. Time Spent With Patient Time: Total time managing care of this patient today ___45_ minutes.
[2022-09-14 18:00] VITALS: BP 98/59; PULSE 85; RESP 17; O2SAT 98
[2022-09-14] MEDS: Divalproex Sodium ER 500 MG TAB.ER.24H 1000 MG PO (20:25)
[2022-09-14] MEDS: OLANZapine ODT 10 MG TAB.RAPDIS 15 MG TRANSLINGU (21:20)
[2022-09-15 08:26] VITALS: BP 102/61; PULSE 75; RESP 18; TEMP 35.9; O2SAT 98
[2022-09-15 09:04] LABS: Alanine Aminotransferase 13 U/L (0-40); Albumin Level 3.9 g/dL (3.5-5.0); Alkaline Phosphatase 56 U/L (39-117); Anion Gap 22 (12-20); Aspartate Amino Transferase 7 U/L (5-37); Bilirubin Total 0.9 mg/dL (0.0-1.0); Blood Urea Nitrogen 85 mg/dL (9-16); Calcium 9.8 mg/dL (8.4-10.2); Carbon Dioxide 17 mmol/L (22-29); Chloride 93 mmol/L (96-108); Cholesterol 160 mg/dL; Creatinine Clr Calc Pharmacy 5.4; Estimated Glomerular Filt Rate 3; Glucose Fasting 84 mg/dL (60-99); HDL Cholesterol 29 mg/dL; LDL Cholesterol Calculated 101 mg/dl; Potassium 4.4 mmol/L (3.3-5.1); Sodium 128 mmol/L (135-145); Total Protein 6.5 g/dL (6.5-8.0); Triglycerides 150 mg/dL
[2022-09-15] MEDS: Haloperidol Lactate 5 MG/ML VIAL 10 MG IM (11:20)
--- NOTE | 2022-09-15 11:33 | MHC.CLN ---
F/U PATIENT AT DIALYSIS THIS MORNING. ATE BREAKFAST PRIOR TO DIALYSIS WITH FAIR INTAKE NOTED. DIET LIBERALIZED TO REGULAR DUE TO HISTORY OF POOR PO. ENSURE BID PROVIDES ADDITIONAL 700 KCALS, 40 G PROTEIN. HX OF VERY POOR PO/REFUSING MEALS PRIOR TO MOVE TO UNIT. PATIENT IS FULL CODE. CONSIDER SUPPLEMENTAL NUTRITION IF PO CONTINUES POOR. FOLLOW FOR INTAKE, DIALYSIS, AND LABS. RD TO FOLLOW UP WITHIN 5 DAYS.
--- NOTE | 2022-09-15 12:17 | PM.PNNEP ---
Subjective Subjective Date of Service: 09/27/22 Interval history: Seen during dialysis. Patient remains uncooperative during dialysis. Physical Exam Vital Signs: Vital Signs: Last Vital Signs Temp 96.7 F L 09/15/22 08:26 Pulse 75 09/15/22 08:26 Resp 18 09/15/22 08:26 BP 102/61 09/15/22 08:26 Pulse Ox 98 09/15/22 08:26 O2 Del Method Room Air 09/15/22 08:26 BMI result Body Mass Index 28.7 Comfortable Neck is supple Lung: Air entry equal Heart: S1,S2, normal. No rub Abd: Soft. BS + NS : Alert.No asterexis Ext: No edema Objective Data Labs 09/15/22 07:52 Labs: Laboratory Results - last 24 hr 09/15/22 07:52 Sodium 128 L Potassium 4.4 D Chloride 93 L Carbon Dioxide 17 L Anion Gap 22 H BUN 85 H Creatinine 15.49 H* Estim Creat Clear Calc 5.4 Estimated GFR 3 Fasting Glucose 84 Calcium 9.8 Total Bilirubin 0.9 AST 7 ALT 13 Alkaline Phosphatase 56 Total Protein 6.5 Albumin 3.9 Triglycerides 150 Cholesterol 160 LDL Cholesterol, Calc 101 HDL Cholesterol 29 Procedures Date of Service Date of Service: 09/27/22 Assessment & Plan Assessment and plan (1) Schizoaffective disorder, bipolar type: Status: Acute (2) ESRD needing dialysis: Status: Acute (3) ESRD (end stage renal disease): Status: Acute Plan ESRD. No overt signs or symptoms of uremia. Continue to dialyze at least 3 times a week. He is usually staying for less than 3 hours. It is becoming increasingly difficult to dialyze him. He may require some sedation during dialysis. Anemia. Hemoglobin 11.2. No need for Epogen. Hyponatremia. Most likely due to decreased free water clearance induced by medications. Restrict oral free water intake to 1 L per 24 hours. Check urine sodium and osmolality. Time Spent With Patient Time: Total time managing care of this patient today ____ minutes.
--- NOTE | 2022-09-15 15:19 | HO.PSYCHPN ---
Subjective Subjective Date of Service: 09/15/22 Reason For Visit: missed dialysis- psychosis bipolar Subjective Notes: Conditional Voluntary (By affirmed healthcare proxy) Interim History: The nursing staff reported the patient had been on one-to-one, he agreed to have blood work by a family are staff the knows him from long time. He went to dialysis but get a little agitated and needed some Haldol. He took a little breakfast today in the morning. Today interview the patient with his and we will continue with the treatment we decided to change Zyprexa to 10 mg p.o. b.i.d.. We will follow results with Medicine. Mental Status Exam Mental Status Exam Patient Appearance: Appropriate Patient Orientation: Person and Situation Level of Consciousness: Awake Patient Behavior: Poor Eye Contact Mood Description: Withdrawn Affect Description: Blunted Patient Cognition Impaired: Yes Ability to Follow Directions: Good Speech Pattern: Soft-Spoken Hallucinations: None Delusions: Paranoid Ideation Thought Process: Distracted and Slowed Thinking Thought Content: positive for [place], positive for Poverty of Content and positive for Thought Blocking Judgement: Poor Diagnostics Vital Signs (24Hr): Vital Signs - 24 hr 09/14/22 18:00 09/15/22 08:26 Temperature 96.7 F L Pulse Rate 85 75 Respiratory Rate 17 18 Blood Pressure 98/59 L 102/61 Pulse Oximetry 98 98 Oxygen Delivery Method Room Air Room Air BMI result Body Mass Index 28.7 Labs 09/15/22 07:52 Labs: Laboratory Results - last 48 hr 09/15/22 07:52 Sodium 128 L Potassium 4.4 D Chloride 93 L Carbon Dioxide 17 L Anion Gap 22 H BUN 85 H Creatinine 15.49 H* Estim Creat Clear Calc 5.4 Estimated GFR 3 Fasting Glucose 84 Calcium 9.8 Total Bilirubin 0.9 AST 7 ALT 13 Alkaline Phosphatase 56 Total Protein 6.5 Albumin 3.9 Triglycerides 150 Cholesterol 160 LDL Cholesterol, Calc 101 HDL Cholesterol 29 Medications Medications Current Medications Acetaminophen (Acetaminophen 325 Mg Tablet) 650 mg PO Q6H PRN PRN Reason: Pain, Mild (Pain Scale 1-3) Aspirin (Aspirin 81 Mg Tab.Chew) 81 mg PO DAILY [facility] Last Admin: 09/15/22 14:09 Dose: Not Given Benztropine Mesylate (Benztropine Mesylate 1 Mg Tablet) 1 mg PO BID [facility] Last Admin: 09/15/22 14:09 Dose: Not Given Divalproex Sodium (Divalproex Sodium Er 500 Mg Tab.Er.24h) 1,000 mg PO BEDTIME [facility] Last Admin: 09/14/22 20:25 Dose: 500 mg Docusate Sodium (Docusate Sodium 100 Mg Capsule) 100 mg PO DAILY PRN PRN Reason: Constipation Ferrous Sulfate (Ferrous Sulfate 300 Mg/5 Ml Liquid) 300 mg PO TIDWM [facility] Last Admin: 09/15/22 14:08 Dose: Not Given Haloperidol Lactate (Haloperidol Lactate 5 Mg/Ml Vial) 10 mg IM ONCE PRN PRN Reason: Agitation in dialysis Last Admin: 09/15/22 11:20 Dose: 10 mg Heparin Sodium (Porcine) (Heparin Sodium,Porcine 5,000 Unit/Ml Vial) 5,000 unit SUBCUT Q12H [facility] Last Admin: 09/15/22 04:58 Dose: Not Given Non-Formulary Medication (Thiothixene) 15 mg PO DAILY [facility] Last Admin: 09/15/22 14:01 Dose: 15 mg Olanzapine (Olanzapine 10 Mg Vial) 2.5 mg IM Q6H PRN PRN Reason: anxiety/restlessness Olanzapine (Olanzapine 10 Mg Vial) 10 mg IM BEDTIME PRN PRN Reason: Psychosis Olanzapine (Olanzapine 10 Mg Vial) 10 mg IM DAILY PRN PRN Reason: Psychosis Olanzapine (Olanzapine Odt 10 Mg Tab.Rapdis) 10 mg TRANSLINGU BID [facility] Ondansetron HCl (Ondansetron Hcl 4 Mg/2 Ml Vial) 4 mg IVPUSH Q8H PRN PRN Reason: Nausea and Vomiting Sodium Chloride (0.9 % Sodium Chloride Flush 3 Ml Syringe) 3 ml IVFLUSH QSHIFT [facility] Last Admin: 09/15/22 14:11 Dose: Not Given Allergies Allergies Allergy/AdvReac Type Severity Reaction Status Date / Time No Known Allergies Allergy Verified 09/06/22 09:01 Assessment & Plan Assessment & Plan (1) Schizoaffective disorder, bipolar type: Status: Acute Code(s): F25.0 - Schizoaffective disorder, bipolar type (2) ESRD needing dialysis: Status: Acute Code(s): N18.6 - End stage renal disease; Z99.2 - Dependence on renal dialysis (3) ESRD (end stage renal disease): Status: Acute Code(s): N18.6 - End stage renal disease Plan ESRD. No overt signs or symptoms of uremia. Continue to dialyze at least 3 times a week. He is usually staying for less than 3 hours. It is becoming increasingly difficult to dialyze him. He may require some sedation during dialysis. Anemia. Hemoglobin 11.2. No need for Epogen. Hyponatremia. Most likely due to decreased free water clearance induced by medications. Restrict oral free water intake to 1 L per 24 hours. Check urine sodium and osmolality. Plan 1. Continue with dialysis 3 times a week. 2. Continue with Zyprexa 10 mg p.o. b.i.d.. The patient refuses he will need backup IM as per healthcare proxy affair in wishes. 4. Reassessment results. Reason for continued inpatient stay Substantial Risk for: inability to function, rapid decompensation and med/psych decompensation Time Spent With Patient Time: Total time managing care of this patient today __20__ minutes.
[2022-09-15 15:50] VITALS: BMI 24.4
[2022-09-15] MEDS: OLANZapine ODT 10 MG TAB.RAPDIS TRANSLINGU (20:05)
[2022-09-16 08:30] VITALS: TEMP 35.8; O2SAT 97
[2022-09-16] MEDS: OLANZapine 10 MG VIAL IM (09:54)
--- NOTE | 2022-09-16 14:34 | HO.PSYCHPN ---
Subjective Subjective Date of Service: 09/16/22 Reason For Visit: missed dialysis- psychosis bipolar Subjective Notes: Conditional Voluntary Interim History: The nursing staff reported the patient received Zyprexa IM in the morning since he refused it. He had been sleeping on and off and has refused Cogentin and Depakote. On interview the patient remains internally preoccupied, still psychotic. Mental Status Exam Mental Status Exam Patient Appearance: Appropriate Patient Orientation: Person Level of Consciousness: Awake and Appropriate Patient Behavior: Guarded and Passive Mood Description: Withdrawn Affect Description: Constricted Patient Cognition Impaired: Yes Ability to Follow Directions: Good Speech Pattern: Impoverished Hallucinations: None Delusions: Paranoid Ideation Thought Process: Distracted and Confusion Thought Content: positive for [place] and positive for Poverty of Content Judgement: Poor Diagnostics Vital Signs (24Hr): BMI result Body Mass Index 24.4 Labs 09/15/22 07:52 Labs: Laboratory Results - last 48 hr 09/15/22 07:52 Sodium 128 L Potassium 4.4 D Chloride 93 L Carbon Dioxide 17 L Anion Gap 22 H BUN 85 H Creatinine 15.49 H* Estim Creat Clear Calc 5.4 Estimated GFR 3 Fasting Glucose 84 Calcium 9.8 Total Bilirubin 0.9 AST 7 ALT 13 Alkaline Phosphatase 56 Total Protein 6.5 Albumin 3.9 Triglycerides 150 Cholesterol 160 LDL Cholesterol, Calc 101 HDL Cholesterol 29 Medications Medications Current Medications Acetaminophen (Acetaminophen 325 Mg Tablet) 650 mg PO Q6H PRN PRN Reason: Pain, Mild (Pain Scale 1-3) Aspirin (Aspirin 81 Mg Tab.Chew) 81 mg PO DAILY [facility] Last Admin: 09/16/22 08:33 Dose: Not Given Benztropine Mesylate (Benztropine Mesylate 1 Mg Tablet) 1 mg PO BID [facility] Last Admin: 09/16/22 08:34 Dose: Not Given Divalproex Sodium (Divalproex Sodium Er 500 Mg Tab.Er.24h) 1,000 mg PO BEDTIME [facility] Last Admin: 09/15/22 20:08 Dose: Not Given Docusate Sodium (Docusate Sodium 100 Mg Capsule) 100 mg PO DAILY PRN PRN Reason: Constipation Ferrous Sulfate (Ferrous Sulfate 300 Mg/5 Ml Liquid) 300 mg PO TIDWM [facility] Last Admin: 09/16/22 12:47 Dose: Not Given Haloperidol Lactate (Haloperidol Lactate 5 Mg/Ml Vial) 10 mg IM ONCE PRN PRN Reason: Agitation in dialysis Last Admin: 09/15/22 11:20 Dose: 10 mg Non-Formulary Medication (Thiothixene) 15 mg PO DAILY [facility] Last Admin: 09/16/22 08:16 Dose: 15 mg Olanzapine (Olanzapine 10 Mg Vial) 2.5 mg IM Q6H PRN PRN Reason: anxiety/restlessness Olanzapine (Olanzapine Odt 10 Mg Tab.Rapdis) 10 mg TRANSLINGU BID [facility] Last Admin: 09/16/22 08:34 Dose: Not Given Olanzapine (Olanzapine 10 Mg Vial) 10 mg IM BID PRN PRN Reason: Psychosis Last Admin: 09/16/22 09:54 Dose: 10 mg Ondansetron HCl (Ondansetron Hcl 4 Mg/2 Ml Vial) 4 mg IVPUSH Q8H PRN PRN Reason: Nausea and Vomiting Allergies Allergies Allergy/AdvReac Type Severity Reaction Status Date / Time No Known Allergies Allergy Verified 09/06/22 09:01 Assessment & Plan Assessment & Plan (1) Schizoaffective disorder, bipolar type: Status: Acute Code(s): F25.0 - Schizoaffective disorder, bipolar type (2) ESRD needing dialysis: Status: Acute Code(s): N18.6 - End stage renal disease; Z99.2 - Dependence on renal dialysis (3) ESRD (end stage renal disease): Status: Acute Code(s): N18.6 - End stage renal disease Plan ESRD. No overt signs or symptoms of uremia. Continue to dialyze at least 3 times a week. He is usually staying for less than 3 hours. It is becoming increasingly difficult to dialyze him. He may require some sedation during dialysis. Anemia. Hemoglobin 11.2. No need for Epogen. Hyponatremia. Most likely due to decreased free water clearance induced by medications. Restrict oral free water intake to 1 L per 24 hours. Check urine sodium and osmolality. Plan 1. Continue with dialysis 3 times a week. 2. Continue with Zyprexa 10 mg p.o. b.i.d.. The patient refuses he will need backup IM as per healthcare proxy affair in wishes. 4. Reassessment results. Reason for continued inpatient stay Substantial Risk for: inability to function, rapid decompensation and med/psych decompensation Time Spent With Patient Time: Total time managing care of this patient today __20__ minutes.
--- NOTE | 2022-09-16 16:35 | P.CONNP_ITS ---
History of Present Illness Reason for Consult Consult date: 09/16/22 Chief Complaint Chief complaint: missed dialysis- psychosis bipolar PMFSH Past Medical History Medical History Anemia Anemia Bipolar disorder Dialysis patient Hypertension Social History Social History Household Members: Spouse Housing: Unknown / Unable to assess Unable to assess alcohol history related to: Refusing to respond Alcohol intake: never Patient Tobacco Use Status: Never used Tobacco Frequency of e-Cigarette/Vaping Use: Unwilling to respond Use of substances other than those prescribed or required for medical reasons: Refusing to respond Substance Use Type Other:: Unwilling to respond Last Used Substance Other:: Unwilling to respond Currently Displaying Signs/Symptoms of Drug Intoxication Withdrawal: No Other Past Substance Use Problem:: Unwilling to respond Spiritual Healthcare Practices: Unwilling to respond Quaker Healthcare Practices: Unwilling to respond Cultural Healthcare Practices: Unwilling to respond Advance Directives: No Advance Directives Information Provided: No Do you have thoughts of harming others: None Recently lost weight without trying: Unsure service: No Current occupational status: disabled Sexual orientation: Straight/Heterosexual Meds Allergies Allergy/AdvReac Type Severity Reaction Status Date / Time No Known Allergies Allergy Verified 09/06/22 09:01 Active Medications: Current Medications Acetaminophen (Acetaminophen 325 Mg Tablet) 650 mg PO Q6H PRN PRN Reason: Pain, Mild (Pain Scale 1-3) Aspirin (Aspirin 81 Mg Tab.Chew) 81 mg PO DAILY [facility] Last Admin: 09/16/22 08:33 Dose: Not Given Benztropine Mesylate (Benztropine Mesylate 1 Mg Tablet) 1 mg PO BID [facility] Last Admin: 09/16/22 08:34 Dose: Not Given Divalproex Sodium (Divalproex Sodium Er 500 Mg Tab.Er.24h) 1,000 mg PO BEDTIME [facility] Last Admin: 09/15/22 20:08 Dose: Not Given Docusate Sodium (Docusate Sodium 100 Mg Capsule) 100 mg PO DAILY PRN PRN Reason: Constipation Ferrous Sulfate (Ferrous Sulfate 300 Mg/5 Ml Liquid) 300 mg PO TIDWM [facility] Last Admin: 09/16/22 16:28 Dose: Not Given Haloperidol Lactate (Haloperidol Lactate 5 Mg/Ml Vial) 10 mg IM ONCE PRN PRN Reason: Agitation in dialysis Last Admin: 09/15/22 11:20 Dose: 10 mg Non-Formulary Medication (Thiothixene) 15 mg PO DAILY [facility] Last Admin: 09/16/22 08:16 Dose: 15 mg Olanzapine (Olanzapine 10 Mg Vial) 2.5 mg IM Q6H PRN PRN Reason: anxiety/restlessness Olanzapine (Olanzapine Odt 10 Mg Tab.Rapdis) 10 mg TRANSLINGU BID [facility] Last Admin: 09/16/22 08:34 Dose: Not Given Olanzapine (Olanzapine 10 Mg Vial) 10 mg IM BID PRN PRN Reason: Psychosis Last Admin: 09/16/22 09:54 Dose: 10 mg Ondansetron HCl (Ondansetron Hcl 4 Mg/2 Ml Vial) 4 mg IVPUSH Q8H PRN PRN Reason: Nausea and Vomiting Physical Exam Vital Signs: Last Vital Signs Temp 96.7 F L 09/15/22 08:26 Pulse 75 09/15/22 08:26 Resp 18 09/15/22 08:26 BP 102/61 09/15/22 08:26 Pulse Ox 98 09/15/22 08:26 O2 Del Method Room Air 09/15/22 08:26 BMI result Body Mass Index 24.4 Const General: no acute distress Resp Effort & Inspection: normal respiratory effort Auscultation: clear to auscultation bilaterally Cardio Jugular venous distension: no JVD Rate: regular rate Rhythm: regular rhythm GI Inspection: Yes normal to inspection Palpation (GI): Soft to palpation Auscultation: normal bowel sounds Extrem General: Yes normal to inspection Results Lab Results 09/15/22 07:52 Lab results: Chemistry 09/15/22 07:52 Sodium 128 L Potassium 4.4 D Carbon Dioxide 17 L BUN 85 H Creatinine 15.49 H* Calcium 9.8 Assessment and Plan (1) Schizoaffective disorder, bipolar type: Status: Acute (2) ESRD needing dialysis: Status: Acute (3) ESRD (end stage renal disease): Status: Acute Plan Will continues HD on TTS schedule Continue with Zyprexa 10 mg p.o. b.i.d.. APpreciate Psychiatric recs regarding maintaining patients safety and comfort while on dialysis. Renal Diet No EPOgen required Time Spent With Patient Time: Total time managing care of this patient today ____ minutes. Procedures Date of Service Date of Service: 09/16/22
[2022-09-16 17:46] VITALS: BP 122/70; PULSE 84; RESP 20
[2022-09-16 19:35] VITALS: RESP 18
--- NOTE | 2022-09-16 22:16 | PC.NURSE ---
Addendum entered by Brina Carney RN 09/16/22 22:33: administered zyprexa 10mg at 2230 Original Note: patient refused vital signs and all 2100 medications.
[2022-09-16] MEDS: OLANZapine ODT 10 MG TAB.RAPDIS TRANSLINGU (22:32)
[2022-09-17 12:30] VITALS: BP 79/51; PULSE 88; RESP 18; TEMP 36.1; O2SAT 98
--- NOTE | 2022-09-17 13:10 | P.PNPSI_ITS ---
Subjective Subjective Date of Service: 09/17/22 Reason For Visit: missed dialysis- psychosis bipolar Subjective Notes: Conditional Voluntary Healthcare Proxy: Yes Interim History: Patient was seen and discussed in rounds today. Records and plans were reviewed. He has been doing okay in going through his dialysis with no problems other than low blood pressure which has been the case all along. He had an agitated encounter with his yesterday. No complaints or side effects. No changes were made today Medication Compliance: Yes Side effects from medications: No Review of Systems Review of Systems Yes Unobtainable due to mental status Mental Status Exam Mental Status Exam Patient Appearance: Appropriate Patient Orientation: Person Level of Consciousness: Awake and Appropriate Patient Behavior: Guarded and Passive Mood Description: Withdrawn Affect Description: Constricted Patient Cognition Impaired: Yes Ability to Follow Directions: Good Speech Pattern: Impoverished Hallucinations: None Delusions: Paranoid Ideation Thought Process: Distracted and Confusion Thought Content: positive for [place] and positive for Poverty of Content Judgement: Poor Diagnostics Vital Signs (24Hr): Vital Signs - 24 hr 09/16/22 17:46 09/16/22 19:35 09/17/22 12:30 Temperature 96.9 F Pulse Rate 84 88 Respiratory Rate 20 18 18 Blood Pressure 122/70 79/51 L Pulse Oximetry 98 Oxygen Delivery Method Room Air BMI result Body Mass Index 24.4 Labs 09/15/22 07:52 Medications Medications Current Medications Acetaminophen (Acetaminophen 325 Mg Tablet) 650 mg PO Q6H PRN PRN Reason: Pain, Mild (Pain Scale 1-3) Aspirin (Aspirin 81 Mg Tab.Chew) 81 mg PO DAILY [facility] Last Admin: 09/17/22 11:35 Dose: Not Given Benztropine Mesylate (Benztropine Mesylate 1 Mg Tablet) 1 mg PO BID [facility] Last Admin: 09/17/22 11:35 Dose: Not Given Divalproex Sodium (Divalproex Sodium Er 500 Mg Tab.Er.24h) 1,000 mg PO BEDTIME [facility] Last Admin: 09/16/22 20:30 Dose: Not Given Docusate Sodium (Docusate Sodium 100 Mg Capsule) 100 mg PO DAILY PRN PRN Reason: Constipation Ferrous Sulfate (Ferrous Sulfate 300 Mg/5 Ml Liquid) 300 mg PO TIDWM [facility] Last Admin: 09/17/22 11:34 Dose: Not Given Haloperidol Lactate (Haloperidol Lactate 5 Mg/Ml Vial) 10 mg IM ONCE PRN PRN Reason: Agitation in dialysis Last Admin: 09/15/22 11:20 Dose: 10 mg Non-Formulary Medication (Thiothixene) 15 mg PO DAILY [facility] Last Admin: 09/17/22 12:35 Dose: 15 mg Olanzapine (Olanzapine 10 Mg Vial) 2.5 mg IM Q6H PRN PRN Reason: anxiety/restlessness Olanzapine (Olanzapine Odt 10 Mg Tab.Rapdis) 10 mg TRANSLINGU BID [facility] Last Admin: 09/17/22 11:35 Dose: Not Given Olanzapine (Olanzapine 10 Mg Vial) 10 mg IM BID PRN PRN Reason: Psychosis Last Admin: 09/16/22 09:54 Dose: 10 mg Ondansetron HCl (Ondansetron Hcl 4 Mg/2 Ml Vial) 4 mg IVPUSH Q8H PRN PRN Reason: Nausea and Vomiting Allergies Allergies Allergy/AdvReac Type Severity Reaction Status Date / Time No Known Allergies Allergy Verified 09/06/22 09:01 Assessment & Plan Assessment & Plan (1) Schizoaffective disorder, bipolar type: Status: Acute Code(s): F25.0 - Schizoaffective disorder, bipolar type (2) ESRD needing dialysis: Status: Acute Code(s): N18.6 - End stage renal disease; Z99.2 - Dependence on renal dialysis (3) ESRD (end stage renal disease): Status: Acute Code(s): N18.6 - End stage renal disease Plan Will continues HD on TTS schedule Continue with Zyprexa 10 mg p.o. b.i.d.. APpreciate Psychiatric recs regarding maintaining patients safety and comfort while on dialysis. Renal Diet No EPOgen required 09/17: Continue current plans and regimen Reason for continued inpatient stay Substantial Risk for: med/psych decompensation Time Spent With Patient Time: Total time managing care of this patient today ____ minutes.
--- NOTE | 2022-09-17 13:11 | PM.PNNEP ---
Subjective Subjective Date of Service: 09/17/22 Interval history: Dialysis today Physical Exam Vital Signs: Vital Signs: Last Vital Signs Temp 96.9 F 09/17/22 12:30 Pulse 88 09/17/22 12:30 Resp 18 09/17/22 12:30 BP 79/51 L 09/17/22 12:30 Pulse Ox 98 09/17/22 12:30 O2 Del Method Room Air 09/17/22 12:30 BMI result Body Mass Index 24.4 Const: General: no acute distress Resp: Effort & Inspection: normal respiratory effort Auscultation: clear to auscultation bilaterally Cardio: Jugular venous distension: no JVD Rate: regular rate Rhythm: regular rhythm GI: Inspection: Yes normal to inspection Palpation (GI): Soft to palpation Auscultation: normal bowel sounds Extrem: General: Yes normal to inspection Objective Data Labs 09/15/22 07:52 Procedures Date of Service Date of Service: 09/17/22 Assessment & Plan Assessment and plan (1) Schizoaffective disorder, bipolar type: Status: Acute (2) ESRD needing dialysis: Status: Acute (3) ESRD (end stage renal disease): Status: Acute Plan Will continues HD on TTS schedule Continue with Zyprexa 10 mg p.o. b.i.d.. Can use Midodrine 10mg TID for dialysis hypotension APpreciate Psychiatric recs regarding maintaining patients safety and comfort while on dialysis. Renal Diet No EPOgen required Time Spent With Patient Time: Total time managing care of this patient today ____ minutes.
[2022-09-17] MEDS: OLANZapine 10 MG VIAL IM (14:30)
[2022-09-17 19:35] VITALS: BP 81/51; PULSE 66; RESP 18; TEMP 36.6; O2SAT 97
[2022-09-17] MEDS: Midodrine HCl 10 MG TABLET PO (21:20)
[2022-09-17] MEDS: OLANZapine ODT 10 MG TAB.RAPDIS TRANSLINGU (21:21)
--- NOTE | 2022-09-17 21:57 | PC.NURSE ---
Reported low BP to provider, Brannon T/W educated patient on midodrine. Patient initially refused all 2100 medications. Explained orders regarding zyprexa, and told patient t/w would check back in with him. About one hour later, patient requested to see RN. Educated patient again on midodrine and signs and symptoms of low blood pressure. Patient took zyprexa PO and scheduled midodrine.
[2022-09-18 07:30] VITALS: BP 119/68; PULSE 87; RESP 18; TEMP 36.4; O2SAT 95
[2022-09-18] MEDS: Benztropine Mesylate 1 MG TABLET PO (09:12)
[2022-09-18] MEDS: OLANZapine ODT 10 MG TAB.RAPDIS TRANSLINGU (09:54)
--- NOTE | 2022-09-18 10:43 | HO.PSYCHPN ---
Subjective Subjective Date of Service: 09/18/22 Reason For Visit: missed dialysis- psychosis bipolar Subjective Notes: Conditional Voluntary Healthcare Proxy: Yes Interim History: Patient was seen and discussed in rounds today. Records and plans were reviewed. He continues to be confused. He refused some meds last evening. Slept adequately. Has taken some meds selectively. Eating adequately. No complaints or side effects. No changes were made today Medication Compliance: Yes Side effects from medications: No Review of Systems Review of Systems Yes Unobtainable due to mental status Mental Status Exam Mental Status Exam Patient Appearance: Appropriate Patient Orientation: Person Level of Consciousness: Awake and Appropriate Patient Behavior: Guarded and Passive Mood Description: Withdrawn Affect Description: Constricted Patient Cognition Impaired: Yes Ability to Follow Directions: Good Speech Pattern: Impoverished Hallucinations: None Delusions: Paranoid Ideation Thought Process: Distracted and Confusion Thought Content: positive for [place] and positive for Poverty of Content Judgement: Poor Diagnostics Vital Signs (24Hr): Vital Signs - 24 hr 09/17/22 12:30 09/17/22 19:35 09/18/22 07:30 Temperature 96.9 F 97.9 F 97.6 F Pulse Rate 88 66 87 Respiratory Rate 18 18 18 Blood Pressure 79/51 L 81/51 L 119/68 Pulse Oximetry 98 97 95 Oxygen Delivery Method Room Air Room Air Room Air BMI result Body Mass Index 24.4 Labs 09/15/22 07:52 Medications Medications Current Medications Acetaminophen (Acetaminophen 325 Mg Tablet) 650 mg PO Q6H PRN PRN Reason: Pain, Mild (Pain Scale 1-3) Aspirin (Aspirin 81 Mg Tab.Chew) 81 mg PO DAILY [facility] Last Admin: 09/18/22 09:19 Dose: Not Given Benztropine Mesylate (Benztropine Mesylate 1 Mg Tablet) 1 mg PO BID [facility] Last Admin: 09/18/22 09:12 Dose: 1 mg Divalproex Sodium (Divalproex Sodium Er 500 Mg Tab.Er.24h) 1,000 mg PO BEDTIME [facility] Last Admin: 09/17/22 20:41 Dose: Not Given Docusate Sodium (Docusate Sodium 100 Mg Capsule) 100 mg PO DAILY PRN PRN Reason: Constipation Ferrous Sulfate (Ferrous Sulfate 300 Mg/5 Ml Liquid) 300 mg PO TIDWM [facility] Last Admin: 09/18/22 09:17 Dose: Not Given Haloperidol Lactate (Haloperidol Lactate 5 Mg/Ml Vial) 10 mg IM ONCE PRN PRN Reason: Agitation in dialysis Last Admin: 09/15/22 11:20 Dose: 10 mg Midodrine (Midodrine Hcl 10 Mg Tablet) 10 mg PO TID [facility] Last Admin: 09/18/22 09:18 Dose: Not Given Non-Formulary Medication (Thiothixene) 15 mg PO DAILY [facility] Last Admin: 09/18/22 09:12 Dose: 15 mg Olanzapine (Olanzapine 10 Mg Vial) 2.5 mg IM Q6H PRN PRN Reason: anxiety/restlessness Olanzapine (Olanzapine Odt 10 Mg Tab.Rapdis) 10 mg TRANSLINGU BID [facility] Last Admin: 09/18/22 09:54 Dose: 10 mg Olanzapine (Olanzapine 10 Mg Vial) 10 mg IM BID PRN PRN Reason: Psychosis Last Admin: 09/17/22 14:30 Dose: 10 mg Ondansetron HCl (Ondansetron Hcl 4 Mg/2 Ml Vial) 4 mg IVPUSH Q8H PRN PRN Reason: Nausea and Vomiting Allergies Allergies Allergy/AdvReac Type Severity Reaction Status Date / Time No Known Allergies Allergy Verified 09/06/22 09:01 Assessment & Plan Assessment & Plan (1) Schizoaffective disorder, bipolar type: Status: Acute Code(s): F25.0 - Schizoaffective disorder, bipolar type (2) ESRD needing dialysis: Status: Acute Code(s): N18.6 - End stage renal disease; Z99.2 - Dependence on renal dialysis (3) ESRD (end stage renal disease): Status: Acute Code(s): N18.6 - End stage renal disease Plan Will continues HD on TTS schedule Continue with Zyprexa 10 mg p.o. b.i.d.. Can use Midodrine 10mg TID for dialysis hypotension APpreciate Psychiatric recs regarding maintaining patients safety and comfort while on dialysis. Renal Diet No EPOgen required 09/18: Continue current plans and regimen Reason for continued inpatient stay Substantial Risk for: inability to function and med/psych decompensation Time Spent With Patient Time: Total time managing care of this patient today ____ minutes.
[2022-09-18 19:30] VITALS: BP 92/61; PULSE 78; RESP 16; TEMP 36.1
[2022-09-19 09:30] VITALS: BP 96/55; PULSE 67; RESP 15; TEMP 36.6; O2SAT 98
[2022-09-19] MEDS: Benztropine Mesylate 1 MG TABLET PO ×2 (09:45→21:20)
[2022-09-19] MEDS: OLANZapine ODT 10 MG TAB.RAPDIS TRANSLINGU ×2 (10:18→21:17)
--- NOTE | 2022-09-19 12:17 | HO.PSYCHPN ---
Subjective Subjective Date of Service: 09/19/22 Reason For Visit: missed dialysis- psychosis bipolar Subjective Notes: Conditional Voluntary (By affirmed healthcare proxy) Healthcare Proxy: Yes Interim History: The nursing staff reported the patient has been taking medications with encouragement, he was able to ambulate and walk, he refused medications yesterday but he did receive his Zyprexa IM. Today in the morning the patient refused his medications with have a long conversation and explained him that he has to take it if not we will need to use IM as a backup. He stated that he has side effects but he is unable to elaborate can of side effects he had. He was more alert and awake oriented. Mental Status Exam Mental Status Exam Patient Appearance: Appropriate Patient Orientation: Person and Situation Level of Consciousness: Awake and Appropriate Patient Behavior: Guarded Mood Description: Calm Affect Description: Labile Patient Cognition Impaired: Yes Ability to Follow Directions: Good Speech Pattern: Clear Hallucinations: None Delusions: Paranoid Ideation Thought Process: Distracted and Evasive Thought Content: positive for [place] and positive for Poverty of Content Judgement: Poor Diagnostics Vital Signs (24Hr): Vital Signs - 24 hr 09/18/22 19:30 Temperature 96.9 F Pulse Rate 78 Respiratory Rate 16 Blood Pressure 92/61 Oxygen Delivery Method Room Air BMI result Body Mass Index 24.4 Labs 09/15/22 07:52 Medications Medications Current Medications Acetaminophen (Acetaminophen 325 Mg Tablet) 650 mg PO Q6H PRN PRN Reason: Pain, Mild (Pain Scale 1-3) Aspirin (Aspirin 81 Mg Tab.Chew) 81 mg PO DAILY [facility] Last Admin: 09/19/22 09:45 Dose: Not Given Benztropine Mesylate (Benztropine Mesylate 1 Mg Tablet) 1 mg PO BID [facility] Last Admin: 09/19/22 09:45 Dose: 1 mg Divalproex Sodium (Divalproex Sodium Er 500 Mg Tab.Er.24h) 1,000 mg PO BEDTIME [facility] Last Admin: 09/18/22 21:28 Dose: Not Given Docusate Sodium (Docusate Sodium 100 Mg Capsule) 100 mg PO DAILY PRN PRN Reason: Constipation Ferrous Sulfate (Ferrous Sulfate 300 Mg/5 Ml Liquid) 300 mg PO TIDWM [facility] Last Admin: 09/19/22 11:35 Dose: Not Given Haloperidol Lactate (Haloperidol Lactate 5 Mg/Ml Vial) 10 mg IM ONCE PRN PRN Reason: Agitation in dialysis Last Admin: 09/15/22 11:20 Dose: 10 mg Midodrine (Midodrine Hcl 10 Mg Tablet) 10 mg PO TID [facility] Last Admin: 09/19/22 09:45 Dose: Not Given Non-Formulary Medication (Thiothixene) 15 mg PO DAILY [facility] Last Admin: 09/19/22 09:45 Dose: 15 mg Olanzapine (Olanzapine 10 Mg Vial) 2.5 mg IM Q6H PRN PRN Reason: anxiety/restlessness Olanzapine (Olanzapine Odt 10 Mg Tab.Rapdis) 10 mg TRANSLINGU BID [facility] Last Admin: 09/19/22 10:18 Dose: 10 mg Olanzapine (Olanzapine 10 Mg Vial) 10 mg IM BID PRN PRN Reason: Psychosis Last Admin: 09/17/22 14:30 Dose: 10 mg Ondansetron HCl (Ondansetron Hcl 4 Mg/2 Ml Vial) 4 mg IVPUSH Q8H PRN PRN Reason: Nausea and Vomiting Allergies Allergies Allergy/AdvReac Type Severity Reaction Status Date / Time No Known Allergies Allergy Verified 09/06/22 09:01 Assessment & Plan Assessment & Plan (1) Schizoaffective disorder, bipolar type: Status: Acute Code(s): F25.0 - Schizoaffective disorder, bipolar type (2) ESRD needing dialysis: Status: Acute Code(s): N18.6 - End stage renal disease; Z99.2 - Dependence on renal dialysis (3) ESRD (end stage renal disease): Status: Acute Code(s): N18.6 - End stage renal disease Plan Will continues HD on TTS schedule Continue with Zyprexa 10 mg p.o. b.i.d.. Can use Midodrine 10mg TID for dialysis hypotension APpreciate Psychiatric recs regarding maintaining patients safety and comfort while on dialysis. Renal Diet No EPOgen required Plan 1. The patient does not have capacity to take informed decisions since his healthcare proxy was affirm court, we will continue with Zyprexa 10 mg p.o. b.i.d. with backup IM if the patient refused. 2. Continue with Ativan 1 mg p.o. t.i.d. to avoid catatonia. Reason for continued inpatient stay Substantial Risk for: inability to function, rapid decompensation and med/psych decompensation Time Spent With Patient Time: Total time managing care of this patient today _20___ minutes.
--- NOTE | 2022-09-19 16:03 | MHC.CLN ---
F/U CONTINUES WITH HEMODIALYSIS THREE TIMES WEEKLY. DIET LIBERALIZED TO REGULAR DUE TO HISTORY OF POOR PO. ENSURE BID PROVIDES ADDITIONAL 700 KCALS, 40 G PROTEIN. INTAKE APPEARS IMPROVED X 2 DAYS WITH MOST MEALS 50-75%. NO NEW LABS VIEWED. FOLLOW FOR INTAKE, DIALYSIS, AND LABS.
[2022-09-19 18:00] VITALS: BP 104/54; PULSE 88; RESP 16; TEMP 36.3; O2SAT 100
[2022-09-19] MEDS: Divalproex Sodium ER 500 MG TAB.ER.24H 1000 MG PO (21:20)
[2022-09-20 06:00] VITALS: BP 97/68; PULSE 91; RESP 16; TEMP 36.2; O2SAT 98
--- NOTE | 2022-09-20 08:40 | PC.NURSE ---
Patient brought off unit to Dialysis by this RN and 1:1 staff who remained with pt.
--- NOTE | 2022-09-20 10:06 | PM.PNNEP ---
Subjective Subjective Date of Service: 09/20/22 Interval history: Seen on HD this AM.All recent data reviewed. D/W HD RN Physical Exam Vital Signs: Vital Signs: Last Vital Signs Temp 97.1 F 09/20/22 06:00 Pulse 91 09/20/22 06:00 Resp 16 09/20/22 06:00 BP 97/68 09/20/22 06:00 Pulse Ox 98 09/20/22 06:00 O2 Del Method Room Air 09/20/22 06:00 BMI result Body Mass Index 24.4 Const: General: no acute distress Eyes: EOM: EOMs intact bilaterally Neck: Neck: Yes supple Resp: Auscultation: diminished lung sounds Cardio: Rate: regular rate GI: Palpation (GI): Soft to palpation Neuro: General: moves all extremities Objective Data Labs 09/15/22 07:52 Procedures Date of Service Date of Service: 09/20/22 Assessment & Plan Assessment and plan (1) ESRD needing dialysis: Status: Acute Assessment and Plan: Dialysis dependent Usually gets HD on TTS Seen on HD- tolerating it Continued volume optimization on HD Midodrine 10 mg pre HD & 10 mg mid HD treatment on HD days ( 10 mg pre HD should be the AM dose on dialysis days) ( Can have 40 mg on HD days- 10 mg tid + 10 mg mid HD) Can have 10 mg Midodrine 4 times a day regularly on non dialysis days
[2022-09-20] MEDS: Benztropine Mesylate 1 MG TABLET PO ×2 (12:41→20:17)
[2022-09-20] MEDS: OLANZapine ODT 10 MG TAB.RAPDIS TRANSLINGU ×2 (12:42→20:15)
--- NOTE | 2022-09-20 14:02 | HO.PSYCHPN ---
Subjective Subjective Date of Service: 09/20/22 Reason For Visit: missed dialysis- psychosis bipolar Subjective Notes: Conditional Voluntary (By affirmed healthcare proxy) Healthcare Proxy: Yes Interim History: The patient was able to go to the dialysis today, he had been compliant with medications. The occupational therapist reported that they are going to do an assessment of her mobility. The pediatric social worker reported that we will have a family meeting yesterday in the reported he has not baseline but he is a little more verbal since he is compliant with treatment. On interview the patient denies new symptoms he is upset that he is taking medications, he stated that he is frustrated, that he has ESRD for taking LIthium. Overall, he looks more lucid and awake. Mental Status Exam Mental Status Exam Patient Appearance: Well Grooomed and Appropriate Patient Orientation: Person and Situation Level of Consciousness: Awake and Appropriate Patient Behavior: Guarded Diagnostics Vital Signs (24Hr): Vital Signs - 24 hr 09/19/22 18:00 09/20/22 06:00 Temperature 97.4 F 97.1 F Pulse Rate 88 91 Respiratory Rate 16 16 Blood Pressure 104/54 L 97/68 Pulse Oximetry 100 98 Oxygen Delivery Method Room Air Room Air BMI result Body Mass Index 24.4 Labs 09/15/22 07:52 Medications Medications Current Medications Acetaminophen (Acetaminophen 325 Mg Tablet) 650 mg PO Q6H PRN PRN Reason: Pain, Mild (Pain Scale 1-3) Aspirin (Aspirin 81 Mg Tab.Chew) 81 mg PO DAILY [facility] Last Admin: 09/20/22 12:44 Dose: Not Given Benztropine Mesylate (Benztropine Mesylate 1 Mg Tablet) 1 mg PO BID [facility] Last Admin: 09/20/22 12:41 Dose: 1 mg Divalproex Sodium (Divalproex Sodium Er 500 Mg Tab.Er.24h) 1,000 mg PO BEDTIME [facility] Last Admin: 09/19/22 21:20 Dose: 1,000 mg Docusate Sodium (Docusate Sodium 100 Mg Capsule) 100 mg PO DAILY PRN PRN Reason: Constipation Ferrous Sulfate (Ferrous Sulfate 300 Mg/5 Ml Liquid) 300 mg PO TIDWM [facility] Last Admin: 09/20/22 12:48 Dose: Not Given Haloperidol Lactate (Haloperidol Lactate 5 Mg/Ml Vial) 10 mg IM ONCE PRN PRN Reason: Agitation in dialysis Last Admin: 09/15/22 11:20 Dose: 10 mg Midodrine (Midodrine Hcl 10 Mg Tablet) 10 mg PO TID [facility] Last Admin: 09/20/22 12:43 Dose: Not Given Non-Formulary Medication (Thiothixene) 15 mg PO DAILY [facility] Last Admin: 09/20/22 12:41 Dose: 15 mg Olanzapine (Olanzapine 10 Mg Vial) 2.5 mg IM Q6H PRN PRN Reason: anxiety/restlessness Olanzapine (Olanzapine Odt 10 Mg Tab.Rapdis) 10 mg TRANSLINGU BID [facility] Last Admin: 09/20/22 12:42 Dose: 10 mg Olanzapine (Olanzapine 10 Mg Vial) 10 mg IM BID PRN PRN Reason: Psychosis Last Admin: 09/17/22 14:30 Dose: 10 mg Ondansetron HCl (Ondansetron Hcl 4 Mg/2 Ml Vial) 4 mg IVPUSH Q8H PRN PRN Reason: Nausea and Vomiting Allergies Allergies Allergy/AdvReac Type Severity Reaction Status Date / Time No Known Allergies Allergy Verified 09/06/22 09:01 Assessment & Plan Assessment & Plan (1) ESRD needing dialysis: Status: Acute Code(s): N18.6 - End stage renal disease; Z99.2 - Dependence on renal dialysis Assessment and Plan: Dialysis dependent Usually gets HD on TTS Seen on HD- tolerating it Continued volume optimization on HD Midodrine 10 mg pre HD & 10 mg mid HD treatment on HD days ( 10 mg pre HD should be the AM dose on dialysis days) ( Can have 40 mg on HD days- 10 mg tid + 10 mg mid HD) Can have 10 mg Midodrine 4 times a day regularly on non dialysis days Reason for continued inpatient stay Substantial Risk for: harm to self, inability to function, rapid decompensation and med/psych decompensation Time Spent With Patient Time: Total time managing care of this patient today ____ minutes.
[2022-09-20 18:00] VITALS: BP 87/56; PULSE 106; RESP 18; TEMP 36.1; O2SAT 100
[2022-09-20] MEDS: Divalproex Sodium ER 500 MG TAB.ER.24H 1000 MG PO (20:21)
[2022-09-21 09:00] VITALS: BP 102/57; PULSE 84; RESP 16; TEMP 35.9; O2SAT 100
[2022-09-21] MEDS: Midodrine HCl 10 MG TABLET PO (09:13)
[2022-09-21] MEDS: OLANZapine ODT 10 MG TAB.RAPDIS TRANSLINGU (09:13)
[2022-09-21] MEDS: Benztropine Mesylate 1 MG TABLET PO ×2 (09:13→21:38)
--- NOTE | 2022-09-21 12:00 | MHC.CLN ---
F/U CONTINUES WITH HEMODIALYSIS THREE TIMES WEEKLY. DIET LIBERALIZED TO REGULAR DUE TO HISTORY OF POOR PO. ENSURE BID PROVIDES ADDITIONAL 700 KCALS, 40 G PROTEIN. STAFF REPORTS THAT PATIENT DID NOT TAKE BREAKFAST THIS MORNING. NO NEW LABS VIEWED. FOLLOW FOR INTAKE, DIALYSIS, AND LABS.
--- NOTE | 2022-09-21 14:10 | HO.PSYCHPN ---
Subjective Subjective Date of Service: 09/21/22 Reason For Visit: missed dialysis- psychosis bipolar Subjective Notes: Conditional Voluntary (By affirmed healthcare proxy) Interim History: The nursing staff reported the patient has look with a better appetite today he with a dialysis yesterday and he has been taking his medications. On interview the patient looks more alert and oriented. Mental Status Exam Mental Status Exam Patient Appearance: Appropriate Patient Orientation: Person and Situation Level of Consciousness: Awake and Appropriate Patient Behavior: Guarded and Passive Mood Description: Withdrawn Affect Description: Constricted Patient Cognition Impaired: Yes Ability to Follow Directions: Good Speech Pattern: Clear Hallucinations: None Delusions: Grandiose and Ideas of Reference Thought Process: Slowed Thinking Thought Content: positive for [place] and positive for Poverty of Content Judgement: Poor Diagnostics Vital Signs (24Hr): Vital Signs - 24 hr 09/20/22 18:00 09/21/22 09:00 Temperature 96.9 F 96.7 F L Pulse Rate 106 H 84 Respiratory Rate 18 16 Blood Pressure 87/56 L 102/57 L Pulse Oximetry 100 100 Oxygen Delivery Method Room Air Room Air BMI result Body Mass Index 24.4 Labs 09/15/22 07:52 Medications Medications Current Medications Acetaminophen (Acetaminophen 325 Mg Tablet) 650 mg PO Q6H PRN PRN Reason: Pain, Mild (Pain Scale 1-3) Aspirin (Aspirin 81 Mg Tab.Chew) 81 mg PO DAILY [facility] Last Admin: 09/21/22 09:19 Dose: Not Given Benztropine Mesylate (Benztropine Mesylate 1 Mg Tablet) 1 mg PO BID [facility] Last Admin: 09/21/22 09:13 Dose: 1 mg Divalproex Sodium (Divalproex Sodium Er 500 Mg Tab.Er.24h) 1,000 mg PO BEDTIME [facility] Last Admin: 09/20/22 20:21 Dose: 1,000 mg Docusate Sodium (Docusate Sodium 100 Mg Capsule) 100 mg PO DAILY PRN PRN Reason: Constipation Ferrous Sulfate (Ferrous Sulfate 300 Mg/5 Ml Liquid) 300 mg PO TIDWM [facility] Last Admin: 09/21/22 12:38 Dose: Not Given Haloperidol Lactate (Haloperidol Lactate 5 Mg/Ml Vial) 10 mg IM ONCE PRN PRN Reason: Agitation in dialysis Last Admin: 09/15/22 11:20 Dose: 10 mg Midodrine (Midodrine Hcl 10 Mg Tablet) 10 mg PO TID [facility] Last Admin: 09/21/22 09:13 Dose: 10 mg Non-Formulary Medication (Thiothixene) 15 mg PO DAILY [facility] Last Admin: 09/21/22 09:13 Dose: 15 mg Olanzapine (Olanzapine 10 Mg Vial) 2.5 mg IM Q6H PRN PRN Reason: anxiety/restlessness Olanzapine (Olanzapine Odt 10 Mg Tab.Rapdis) 10 mg TRANSLINGU BID [facility] Last Admin: 09/21/22 09:13 Dose: 10 mg Olanzapine (Olanzapine 10 Mg Vial) 10 mg IM BID PRN PRN Reason: Psychosis Last Admin: 09/17/22 14:30 Dose: 10 mg Ondansetron HCl (Ondansetron Hcl 4 Mg/2 Ml Vial) 4 mg IVPUSH Q8H PRN PRN Reason: Nausea and Vomiting Allergies Allergies Allergy/AdvReac Type Severity Reaction Status Date / Time No Known Allergies Allergy Verified 09/06/22 09:01 Assessment & Plan Assessment & Plan (1) ESRD needing dialysis: Status: Acute Code(s): N18.6 - End stage renal disease; Z99.2 - Dependence on renal dialysis Assessment and Plan: Dialysis dependent Usually gets HD on TTS Seen on HD- tolerating it Continued volume optimization on HD Midodrine 10 mg pre HD & 10 mg mid HD treatment on HD days ( 10 mg pre HD should be the AM dose on dialysis days) ( Can have 40 mg on HD days- 10 mg tid + 10 mg mid HD) Can have 10 mg Midodrine 4 times a day regularly on non dialysis days Plan The patient is an elderly male with a prior history of bipolar disorder and end-stage renal disease on dialysis admitted for exacerbation of lindy psychosis in the context of noncompliance of medications and dialysis. Transfer back from the medical unit. Plan 1. Continue with medical treatment including dialysis. The patient has an affirmed healthcare proxy and the patient cannot refused. 2. Continue Zyprexa 10 mg p.o. b.i.d.. 3. Depakote level for tomorrow. Reason for continued inpatient stay Substantial Risk for: inability to function, rapid decompensation and med/psych decompensation Time Spent With Patient Time: Total time managing care of this patient today __20__ minutes.
[2022-09-21 21:33] VITALS: BP 83/51; PULSE 102; RESP 16; TEMP 35.9; O2SAT 100
[2022-09-21] MEDS: Divalproex Sodium ER 500 MG TAB.ER.24H 1000 MG PO (21:47)
[2022-09-21 23:30] VITALS: BP 70/50; PULSE 80; RESP 16
[2022-09-22 08:00] VITALS: BP 103/56; PULSE 67; RESP 16; TEMP 36; O2SAT 100
--- NOTE | 2022-09-22 12:07 | PM.PNNEP ---
Subjective Subjective Date of Service: 09/22/22 Interval history: Seen on HD. Tolerating HD well. Denied any new complaints. D/W HD RN. All recent data reviewed Physical Exam Vital Signs: Vital Signs: Last Vital Signs Temp 96.7 F L 09/21/22 21:33 Pulse 102 H 09/21/22 21:33 Resp 16 09/21/22 21:33 BP 83/51 L 09/21/22 21:33 Pulse Ox 100 09/21/22 21:33 O2 Del Method Room Air 09/21/22 21:33 BMI result Body Mass Index 24.4 Const: General: no acute distress Eyes: EOM: EOMs intact bilaterally Neck: Neck: Yes supple Resp: Auscultation: diminished lung sounds Cardio: Rate: regular rate GI: Palpation (GI): Soft to palpation Neuro: General: moves all extremities Objective Data Labs 09/15/22 07:52 Procedures Date of Service Date of Service: 09/22/22 Assessment & Plan Assessment and plan (1) ESRD needing dialysis: Status: Acute Assessment and Plan: Dialysis dependent; Usually gets HD on TTS Seen on HD- tolerating it Continued volume optimization on HD Midodrine 10 mg pre HD & 10 mg mid HD treatment on HD days ( 10 mg pre HD should be the AM dose on dialysis days) ( Can have 40 mg on HD days- 10 mg tid + 10 mg mid HD) Can have 10 mg Midodrine 4 times a day regularly on non dialysis days
--- NOTE | 2022-09-22 15:39 | HO.PSYCHPN ---
Subjective Subjective Date of Service: 09/22/22 Reason For Visit: missed dialysis- psychosis bipolar Subjective Notes: Conditional Voluntary (by healthcare proxy) Interim History: The nursing staff reported the patient refused his medication at night but he did receive his Zyprexa IM. He went to dialysis today and later on he refused his medications. We needed to give his Zyprexa IM as per healthcare proxy orders. On interview, the patient could not understand why he needs to be in treatment. Mental Status Exam Mental Status Exam Patient Appearance: Appropriate Patient Orientation: Person and Situation Level of Consciousness: Awake and Appropriate Patient Behavior: Guarded and Suspicious Mood Description: Withdrawn Affect Description: Constricted Patient Cognition Impaired: Yes Ability to Follow Directions: Fair Speech Pattern: Clear Hallucinations: None Delusions: Paranoid Ideation Thought Process: Illogical and Distracted Thought Content: positive for Poverty of Content and positive for Thought Blocking Judgement: Poor Diagnostics Vital Signs (24Hr): Vital Signs - 24 hr 09/21/22 21:33 Temperature 96.7 F L Pulse Rate 102 H Respiratory Rate 16 Blood Pressure 83/51 L Pulse Oximetry 100 Oxygen Delivery Method Room Air BMI result Body Mass Index 24.4 Labs 09/15/22 07:52 Medications Medications Current Medications Acetaminophen (Acetaminophen 325 Mg Tablet) 650 mg PO Q6H PRN PRN Reason: Pain, Mild (Pain Scale 1-3) Aspirin (Aspirin 81 Mg Tab.Chew) 81 mg PO DAILY [facility] Last Admin: 09/21/22 09:19 Dose: Not Given Benztropine Mesylate (Benztropine Mesylate 1 Mg Tablet) 1 mg PO BID [facility] Last Admin: 09/21/22 21:38 Dose: 1 mg Divalproex Sodium (Divalproex Sodium Er 500 Mg Tab.Er.24h) 1,000 mg PO BEDTIME [facility] Last Admin: 09/21/22 21:47 Dose: 1,000 mg Docusate Sodium (Docusate Sodium 100 Mg Capsule) 100 mg PO DAILY PRN PRN Reason: Constipation Ferrous Sulfate (Ferrous Sulfate 300 Mg/5 Ml Liquid) 300 mg PO TIDWM [facility] Last Admin: 09/21/22 17:25 Dose: Not Given Haloperidol Lactate (Haloperidol Lactate 5 Mg/Ml Vial) 10 mg IM ONCE PRN PRN Reason: Agitation in dialysis Last Admin: 09/15/22 11:20 Dose: 10 mg Midodrine (Midodrine Hcl 10 Mg Tablet) 10 mg PO TID [facility] Last Admin: 09/21/22 21:27 Dose: Not Given Non-Formulary Medication (Thiothixene) 15 mg PO DAILY [facility] Last Admin: 09/21/22 09:13 Dose: 15 mg Olanzapine (Olanzapine 10 Mg Vial) 2.5 mg IM Q6H PRN PRN Reason: anxiety/restlessness Olanzapine (Olanzapine Odt 10 Mg Tab.Rapdis) 10 mg TRANSLINGU BID [facility] Last Admin: 09/21/22 21:52 Dose: Not Given Olanzapine (Olanzapine 10 Mg Vial) 10 mg IM BID PRN PRN Reason: Psychosis Last Admin: 09/17/22 14:30 Dose: 10 mg Ondansetron HCl (Ondansetron Hcl 4 Mg/2 Ml Vial) 4 mg IVPUSH Q8H PRN PRN Reason: Nausea and Vomiting Allergies Allergies Allergy/AdvReac Type Severity Reaction Status Date / Time No Known Allergies Allergy Verified 09/06/22 09:01 Assessment & Plan Assessment & Plan (1) ESRD needing dialysis: Status: Acute Code(s): N18.6 - End stage renal disease; Z99.2 - Dependence on renal dialysis Assessment and Plan: Dialysis dependent; Usually gets HD on TTS Seen on HD- tolerating it Continued volume optimization on HD Midodrine 10 mg pre HD & 10 mg mid HD treatment on HD days ( 10 mg pre HD should be the AM dose on dialysis days) ( Can have 40 mg on HD days- 10 mg tid + 10 mg mid HD) Can have 10 mg Midodrine 4 times a day regularly on non dialysis days Plan The patient is an elderly male with a past history of bipolar disorder admitted for exacerbation of symptoms in the context of noncompliance. He also has end-stage renal disease on dialysis that he refused the procedure. Currently he has an affirmed healthcare proxy and his wants to have psychiatric and medical treatment. Plan 1. Continue with medical treatment. 2. Zyprexa bid, if refuses IM Reason for continued inpatient stay Substantial Risk for: inability to function, rapid decompensation and med/psych decompensation Time Spent With Patient Time: Total time managing care of this patient today __20__ minutes.
[2022-09-22] MEDS: OLANZapine ODT 10 MG TAB.RAPDIS TRANSLINGU ×2 (15:40→21:24)
[2022-09-22 18:00] VITALS: BP 81/48; PULSE 85; RESP 18; TEMP 36.4; O2SAT 95
[2022-09-22] MEDS: Docusate Sodium 100 MG CAPSULE PO (20:32)
[2022-09-23 07:33] LABS: Valproate 23.5 mcg/mL (50.0-100.0)
[2022-09-23 08:57] VITALS: BP 71/50; PULSE 84; RESP 16; TEMP 36; O2SAT 97
[2022-09-23] MEDS: bisacodyL 5 MG TABLET.DR 10 MG PO (09:10)
[2022-09-23] MEDS: Midodrine HCl 10 MG TABLET PO ×2 (09:15→20:43)
[2022-09-23] MEDS: OLANZapine ODT 10 MG TAB.RAPDIS TRANSLINGU ×2 (09:15→20:41)
--- NOTE | 2022-09-23 12:51 | P.PNPSI_ITS ---
Subjective Subjective Date of Service: 09/23/22 Reason For Visit: missed dialysis- psychosis bipolar Subjective Notes: Conditional Voluntary (By affirmed healthcare proxy) Interim History: The nursing staff reported the patient had been irritable, he had dialysis y esterday. Refuse medications but needed to have Zyprexa IM as per healthcare proxy asks. He has taking only Colace and Zyprexa. On interview I explained him that been partially compliant will keep him longer in the hospital. Still irritable with flight of ideas. His was concerned and she advised him to be fully compliant with treatmetn. Mental Status Exam Mental Status Exam Patient Appearance: Appropriate Patient Orientation: Person and Situation Level of Consciousness: Awake and Appropriate Patient Behavior: Guarded and Passive Mood Description: Withdrawn Affect Description: Constricted Patient Cognition Impaired: Yes Ability to Follow Directions: Good Speech Pattern: Clear Hallucinations: None Delusions: Paranoid Ideation Thought Process: Illogical and Distracted Thought Content: positive for [place] and positive for Thought Blocking Judgement: Poor Diagnostics Vital Signs (24Hr): Vital Signs - 24 hr 09/22/22 18:00 09/23/22 08:57 Temperature 97.6 F 96.8 F Pulse Rate 85 84 Respiratory Rate 18 16 Blood Pressure 81/48 L 71/50 L Pulse Oximetry 95 97 Oxygen Delivery Method Room Air Room Air BMI result Body Mass Index 24.4 Labs 09/15/22 07:52 Labs: Laboratory Results - last 48 hr 09/23/22 07:10 Valproic Acid 23.5 L Medications Medications Current Medications Acetaminophen (Acetaminophen 325 Mg Tablet) 650 mg PO Q6H PRN PRN Reason: Pain, Mild (Pain Scale 1-3) Aspirin (Aspirin 81 Mg Tab.Chew) 81 mg PO DAILY [facility] Last Admin: 09/23/22 10:27 Dose: Not Given Benztropine Mesylate (Benztropine Mesylate 1 Mg Tablet) 1 mg PO BID [facility] Last Admin: 09/23/22 10:27 Dose: Not Given Bisacodyl (Bisacodyl 5 Mg Tablet.Dr) 10 mg PO DAILY PRN PRN Reason: Constipation Last Admin: 09/23/22 09:10 Dose: 10 mg Divalproex Sodium (Divalproex Sodium Er 500 Mg Tab.Er.24h) 1,000 mg PO BEDTIME [facility] Last Admin: 09/22/22 20:34 Dose: Not Given Docusate Sodium (Docusate Sodium 100 Mg Capsule) 100 mg PO DAILY PRN PRN Reason: Constipation Last Admin: 09/22/22 20:32 Dose: 100 mg Ferrous Sulfate (Ferrous Sulfate 300 Mg/5 Ml Liquid) 300 mg PO TIDWM [facility] Last Admin: 09/23/22 12:32 Dose: Not Given Haloperidol Lactate (Haloperidol Lactate 5 Mg/Ml Vial) 10 mg IM ONCE PRN PRN Reason: Agitation in dialysis Last Admin: 09/15/22 11:20 Dose: 10 mg Midodrine (Midodrine Hcl 10 Mg Tablet) 10 mg PO TID [facility] Last Admin: 09/23/22 09:15 Dose: 10 mg Non-Formulary Medication (Thiothixene) 15 mg PO DAILY [facility] Last Admin: 09/23/22 10:27 Dose: Not Given Olanzapine (Olanzapine 10 Mg Vial) 2.5 mg IM Q6H PRN PRN Reason: anxiety/restlessness Olanzapine (Olanzapine Odt 10 Mg Tab.Rapdis) 10 mg TRANSLINGU BID [facility] Last Admin: 09/23/22 09:15 Dose: 10 mg Olanzapine (Olanzapine 10 Mg Vial) 10 mg IM BID PRN PRN Reason: Psychosis Last Admin: 09/17/22 14:30 Dose: 10 mg Ondansetron HCl (Ondansetron Hcl 4 Mg/2 Ml Vial) 4 mg IVPUSH Q8H PRN PRN Reason: Nausea and Vomiting Allergies Allergies Allergy/AdvReac Type Severity Reaction Status Date / Time No Known Allergies Allergy Verified 09/06/22 09:01 Assessment & Plan Assessment & Plan (1) ESRD needing dialysis: Status: Acute Code(s): N18.6 - End stage renal disease; Z99.2 - Dependence on renal dialysis Assessment and Plan: Dialysis dependent; Usually gets HD on TTS Seen on HD- tolerating it Continued volume optimization on HD Midodrine 10 mg pre HD & 10 mg mid HD treatment on HD days ( 10 mg pre HD should be the AM dose on dialysis days) ( Can have 40 mg on HD days- 10 mg tid + 10 mg mid HD) Can have 10 mg Midodrine 4 times a day regularly on non dialysis days Plan The patient is an elderly male with a past history of bipolar disorder admitted for exacerbation of symptoms in the context of noncompliance. He also has end-stage renal disease on dialysis that he refused the procedure. Currently he has an affirmed healthcare proxy and his wants to have psychiatric and medical treatment. Plan 1. Continue with medical treatment. 2. Zyprexa bid, if refuses IM Reason for continued inpatient stay Substantial Risk for: inability to function, rapid decompensation and med/psych decompensation Time Spent With Patient Time: Total time managing care of this patient today __20__ minutes.
--- NOTE | 2022-09-23 14:05 | MHC.CLN ---
F/U CONTINUES WITH HEMODIALYSIS THREE TIMES WEEKLY. DIET LIBERALIZED TO REGULAR DUE TO HISTORY OF POOR PO. ENSURE BID PROVIDES ADDITIONAL 700 KCALS, 40 G PROTEIN. STAFF REPORTS THAT INTAKE VARIES FROM DAY TO DAY. DID NOT TAKE BREAKFAST THIS MORNING NO NEW LABS VIEWED. FOLLOW FOR INTAKE, DIALYSIS, AND LABS. CONTINUE CURRENT DIET AND SUPPLEMENT. RD TO FOLLOW WEEKLY.
[2022-09-23 18:00] VITALS: BP 108/57; PULSE 69; RESP 16; TEMP 35.6; O2SAT 99
[2022-09-23] MEDS: Benztropine Mesylate 1 MG TABLET PO (20:43)
[2022-09-23] MEDS: Divalproex Sodium ER 500 MG TAB.ER.24H 1000 MG PO (21:05)
[2022-09-24] MEDS: OLANZapine ODT 10 MG TAB.RAPDIS TRANSLINGU (12:14)
[2022-09-24] MEDS: Ferrous Sulfate 300 MG/5 ML LIQUID PO (12:14)
--- NOTE | 2022-09-24 13:23 | P.PNPSI_ITS ---
Subjective Subjective Date of Service: 09/24/22 Reason For Visit: missed dialysis- psychosis bipolar Interim History: irritable. perseverative about believe he has been given the wrong lunch. no questions for MD. per staff, irritable. taking meds. Mental Status Exam Mental Status Exam Patient Appearance: Appropriate Patient Orientation: Person and Situation Level of Consciousness: Awake and Appropriate Patient Behavior: Guarded and Passive Mood Description: Withdrawn Affect Description: Constricted Patient Cognition Impaired: Yes Ability to Follow Directions: Good Speech Pattern: Clear Hallucinations: None Delusions: Paranoid Ideation Thought Process: Illogical and Distracted Thought Content: positive for [place] and positive for Thought Blocking Judgement: Poor Diagnostics Vital Signs (24Hr): Vital Signs - 24 hr 09/23/22 18:00 Temperature 96.1 F L Pulse Rate 69 Respiratory Rate 16 Blood Pressure 108/57 L Pulse Oximetry 99 Oxygen Delivery Method Room Air BMI result Body Mass Index 24.4 Labs 09/15/22 07:52 Labs: Laboratory Results - last 48 hr 09/23/22 07:10 Valproic Acid 23.5 L Medications Medications Current Medications Acetaminophen (Acetaminophen 325 Mg Tablet) 650 mg PO Q6H PRN PRN Reason: Pain, Mild (Pain Scale 1-3) Aspirin (Aspirin 81 Mg Tab.Chew) 81 mg PO DAILY [facility] Last Admin: 09/24/22 12:30 Dose: Not Given Benztropine Mesylate (Benztropine Mesylate 1 Mg Tablet) 1 mg PO BID [facility] Last Admin: 09/24/22 12:30 Dose: Not Given Bisacodyl (Bisacodyl 5 Mg Tablet.Dr) 10 mg PO DAILY PRN PRN Reason: Constipation Last Admin: 09/23/22 09:10 Dose: 10 mg Divalproex Sodium (Divalproex Sodium Er 500 Mg Tab.Er.24h) 1,000 mg PO BEDTIME [facility] Last Admin: 09/23/22 21:05 Dose: 1,000 mg Docusate Sodium (Docusate Sodium 100 Mg Capsule) 100 mg PO DAILY PRN PRN Reason: Constipation Last Admin: 09/22/22 20:32 Dose: 100 mg Ferrous Sulfate (Ferrous Sulfate 300 Mg/5 Ml Liquid) 300 mg PO TIDWM [facility] Last Admin: 09/24/22 12:28 Dose: Not Given Haloperidol Lactate (Haloperidol Lactate 5 Mg/Ml Vial) 10 mg IM ONCE PRN PRN Reason: Agitation in dialysis Last Admin: 09/15/22 11:20 Dose: 10 mg Midodrine (Midodrine Hcl 10 Mg Tablet) 10 mg PO TID [facility] Last Admin: 09/24/22 12:30 Dose: Not Given Non-Formulary Medication (Thiothixene) 15 mg PO DAILY [facility] Last Admin: 09/24/22 12:13 Dose: 15 mg Olanzapine (Olanzapine 10 Mg Vial) 2.5 mg IM Q6H PRN PRN Reason: anxiety/restlessness Olanzapine (Olanzapine Odt 10 Mg Tab.Rapdis) 10 mg TRANSLINGU BID [facility] Last Admin: 09/24/22 12:14 Dose: 10 mg Olanzapine (Olanzapine 10 Mg Vial) 10 mg IM BID PRN PRN Reason: Psychosis Last Admin: 09/17/22 14:30 Dose: 10 mg Ondansetron HCl (Ondansetron Hcl 4 Mg/2 Ml Vial) 4 mg IVPUSH Q8H PRN PRN Reason: Nausea and Vomiting Allergies Allergies Allergy/AdvReac Type Severity Reaction Status Date / Time No Known Allergies Allergy Verified 09/06/22 09:01 Assessment & Plan Assessment & Plan (1) ESRD needing dialysis: Status: Acute Code(s): N18.6 - End stage renal disease; Z99.2 - Dependence on renal dialysis Assessment and Plan: Dialysis dependent; Usually gets HD on TTS Seen on HD- tolerating it Continued volume optimization on HD Midodrine 10 mg pre HD & 10 mg mid HD treatment on HD days ( 10 mg pre HD should be the AM dose on dialysis days) ( Can have 40 mg on HD days- 10 mg tid + 10 mg mid HD) Can have 10 mg Midodrine 4 times a day regularly on non dialysis days Plan The patient is an elderly male with a past history of bipolar disorder admitted for exacerbation of symptoms in the context of noncompliance. He also has end-stage renal disease on dialysis that he refused the procedure. Currently he has an affirmed healthcare proxy and his wants to have psychiatric and medical treatment. Plan 1. Continue with medical treatment. 2. Zyprexa bid, if refuses IM Reason for continued inpatient stay Substantial Risk for: inability to function and rapid decompensation Time Spent With Patient Time: Total time managing care of this patient today ____ minutes.
--- NOTE | 2022-09-24 21:14 | PM.PNNEP ---
Subjective Subjective Date of Service: 09/24/22 Interval history: Seenand examined, on HD Physical Exam Vital Signs: Vital Signs: Last Vital Signs Temp 96.1 F L 09/23/22 18:00 Pulse 69 09/23/22 18:00 Resp 16 09/23/22 18:00 BP 108/57 L 09/23/22 18:00 Pulse Ox 99 09/23/22 18:00 O2 Del Method Room Air 09/23/22 18:00 BMI result Body Mass Index 24.4 Const: General: no acute distress Eyes: EOM: EOMs intact bilaterally Neck: Neck: Yes supple Resp: Effort & Inspection: normal respiratory effort Auscultation: clear to auscultation bilaterally and diminished lung sounds Cardio: Jugular venous distension: no JVD Rate: regular rate Rhythm: regular rhythm GI: Inspection: Yes normal to inspection Palpation (GI): Soft to palpation Auscultation: normal bowel sounds Neuro: General: moves all extremities Extrem: General: Yes normal to inspection Objective Data Labs 09/15/22 07:52 Procedures Date of Service Date of Service: 09/24/22 Assessment & Plan Assessment and plan (1) ESRD needing dialysis: Status: Acute Assessment and Plan: ESRD: HD TTS cont HD 3x/wk; cont meds as noted Time Spent With Patient Time: Total time managing care of this patient today ____ minutes.
[2022-09-24 22:04] VITALS: BP 96/55; PULSE 68; RESP 16; TEMP 36.5; O2SAT 99
[2022-09-24] MEDS: OLANZapine 10 MG VIAL IM (22:23)
[2022-09-25 08:15] VITALS: BP 90/61; PULSE 84; RESP 18; TEMP 36.4; O2SAT 98
[2022-09-25] MEDS: OLANZapine ODT 10 MG TAB.RAPDIS TRANSLINGU ×2 (08:43→20:46)
[2022-09-25] MEDS: Benztropine Mesylate 1 MG TABLET PO ×2 (08:43→20:45)
[2022-09-25] MEDS: Midodrine HCl 10 MG TABLET PO ×2 (08:44→14:32)
--- NOTE | 2022-09-25 10:31 | P.PNPSI_ITS ---
Subjective Subjective Date of Service: 09/25/22 Reason For Visit: missed dialysis- psychosis bipolar Interim History: resting in bed, rousable. polite. no questions, requests, or concerns. per staff, took zydis today but refused other meds. lox BP. eating and drinking. Mental Status Exam Mental Status Exam Patient Appearance: Appropriate Patient Orientation: Person and Situation Level of Consciousness: Awake and Appropriate Patient Behavior: Guarded and Passive Mood Description: Withdrawn Affect Description: Constricted Patient Cognition Impaired: Yes Ability to Follow Directions: Good Speech Pattern: Clear Hallucinations: None Delusions: Paranoid Ideation Thought Process: Illogical and Distracted Thought Content: positive for [place] and positive for Thought Blocking Judgement: Poor Diagnostics Vital Signs (24Hr): Vital Signs - 24 hr 09/24/22 22:04 09/25/22 08:15 Temperature 97.7 F 97.5 F Pulse Rate 68 84 Respiratory Rate 16 18 Blood Pressure 96/55 L 90/61 Pulse Oximetry 99 98 Oxygen Delivery Method Room Air Room Air BMI result Body Mass Index 24.4 Labs 09/15/22 07:52 Medications Medications Current Medications Acetaminophen (Acetaminophen 325 Mg Tablet) 650 mg PO Q6H PRN PRN Reason: Pain, Mild (Pain Scale 1-3) Aspirin (Aspirin 81 Mg Tab.Chew) 81 mg PO DAILY [facility] Last Admin: 09/25/22 08:47 Dose: Not Given Benztropine Mesylate (Benztropine Mesylate 1 Mg Tablet) 1 mg PO BID [facility] Last Admin: 09/25/22 08:43 Dose: 1 mg Bisacodyl (Bisacodyl 5 Mg Tablet.Dr) 10 mg PO DAILY PRN PRN Reason: Constipation Last Admin: 09/23/22 09:10 Dose: 10 mg Divalproex Sodium (Divalproex Sodium Er 500 Mg Tab.Er.24h) 1,000 mg PO BEDTIME [facility] Last Admin: 09/24/22 22:26 Dose: Not Given Docusate Sodium (Docusate Sodium 100 Mg Capsule) 100 mg PO DAILY PRN PRN Reason: Constipation Last Admin: 09/22/22 20:32 Dose: 100 mg Ferrous Sulfate (Ferrous Sulfate 300 Mg/5 Ml Liquid) 300 mg PO TIDWM [facility] Last Admin: 09/25/22 08:47 Dose: Not Given Haloperidol Lactate (Haloperidol Lactate 5 Mg/Ml Vial) 10 mg IM ONCE PRN PRN Reason: Agitation in dialysis Last Admin: 09/15/22 11:20 Dose: 10 mg Midodrine (Midodrine Hcl 10 Mg Tablet) 10 mg PO TID [facility] Last Admin: 09/25/22 08:44 Dose: 10 mg Non-Formulary Medication (Thiothixene) 15 mg PO DAILY [facility] Last Admin: 09/25/22 08:47 Dose: Not Given Olanzapine (Olanzapine 10 Mg Vial) 2.5 mg IM Q6H PRN PRN Reason: anxiety/restlessness Olanzapine (Olanzapine Odt 10 Mg Tab.Rapdis) 10 mg TRANSLINGU BID [facility] Last Admin: 09/25/22 08:43 Dose: 10 mg Olanzapine (Olanzapine 10 Mg Vial) 10 mg IM BID PRN PRN Reason: Psychosis Last Admin: 09/24/22 22:23 Dose: 10 mg Ondansetron HCl (Ondansetron Hcl 4 Mg/2 Ml Vial) 4 mg IVPUSH Q8H PRN PRN Reason: Nausea and Vomiting Allergies Allergies Allergy/AdvReac Type Severity Reaction Status Date / Time No Known Allergies Allergy Verified 09/06/22 09:01 Assessment & Plan Assessment & Plan (1) ESRD needing dialysis: Status: Acute Code(s): N18.6 - End stage renal disease; Z99.2 - Dependence on renal dialysis Assessment and Plan: ESRD: HD TTS cont HD 3x/wk; cont meds as noted (2) Schizoaffective disorder, bipolar type: Status: Acute Code(s): F25.0 - Schizoaffective disorder, bipolar type Plan The patient is an elderly male with a past history of bipolar disorder admitted for exacerbation of symptoms in the context of noncompliance. He also has end-stage renal disease on dialysis that he refused the procedure. Currently he has an affirmed healthcare proxy and his wants to have psychiatric and medical treatment. Plan 1. Continue with medical treatment. 2. Zyprexa bid, if refuses IM Reason for continued inpatient stay Substantial Risk for: inability to function and rapid decompensation Time Spent With Patient Time: Total time managing care of this patient today ____ minutes.
[2022-09-25 18:00] VITALS: BP 105/67; PULSE 77; RESP 18; TEMP 36.1; O2SAT 99
[2022-09-25] MEDS: Divalproex Sodium ER 500 MG TAB.ER.24H 1000 MG PO (20:44)
[2022-09-26 09:02] VITALS: BP 109/55; PULSE 69; RESP 18; TEMP 36.3; O2SAT 97
[2022-09-26] MEDS: Benztropine Mesylate 1 MG TABLET PO ×2 (09:08→20:41)
[2022-09-26] MEDS: OLANZapine ODT 10 MG TAB.RAPDIS TRANSLINGU ×2 (09:14→20:40)
[2022-09-26] MEDS: bisacodyL 5 MG TABLET.DR 10 MG PO (09:18)
--- NOTE | 2022-09-26 10:20 | HO.PSYCHPN ---
Subjective Subjective Date of Service: 09/26/22 Reason For Visit: missed dialysis- psychosis bipolar Subjective Notes: Conditional Voluntary (By affirmed healthcare proxy) Interim History: The nursing staff reported he refused all his medications but not Zyprexa Zydis. His affect looks slightly brighter but overall there is minimal improvement. He has refused to take some of his medications for blood pressure. The social work nurse reported that his wants to have a family meeting since there is no major improvement even though that he has been fully compliant with Zyprexa. We will explore today the possibility of changing to a different mood stabilizer. On interview the patient denies new symptoms. Still psychotic internally preoccupied. Mental Status Exam Mental Status Exam Patient Appearance: Inappropriate and Unkempt Patient Orientation: Person and Situation Level of Consciousness: Awake Patient Behavior: Guarded and Passive Mood Description: Withdrawn Affect Description: Blunted Patient Cognition Impaired: Yes Ability to Follow Directions: Good Speech Pattern: Clear Hallucinations: None Delusions: Paranoid Ideation Thought Process: Distracted Thought Content: positive for [place] and positive for [place] Judgement: Poor Diagnostics Vital Signs (24Hr): Vital Signs - 24 hr 09/25/22 18:00 09/26/22 09:02 Temperature 96.9 F 97.3 F Pulse Rate 77 69 Respiratory Rate 18 18 Blood Pressure 105/67 109/55 L Pulse Oximetry 99 97 Oxygen Delivery Method Room Air Room Air BMI result Body Mass Index 24.4 Labs 09/15/22 07:52 Medications Medications Current Medications Acetaminophen (Acetaminophen 325 Mg Tablet) 650 mg PO Q6H PRN PRN Reason: Pain, Mild (Pain Scale 1-3) Aspirin (Aspirin 81 Mg Tab.Chew) 81 mg PO DAILY [facility] Last Admin: 09/26/22 09:10 Dose: Not Given Benztropine Mesylate (Benztropine Mesylate 1 Mg Tablet) 1 mg PO BID [facility] Last Admin: 09/26/22 09:08 Dose: 1 mg Bisacodyl (Bisacodyl 5 Mg Tablet.Dr) 10 mg PO DAILY PRN PRN Reason: Constipation Last Admin: 09/26/22 09:18 Dose: 10 mg Divalproex Sodium (Divalproex Sodium Er 500 Mg Tab.Er.24h) 1,000 mg PO BEDTIME [facility] Last Admin: 09/25/22 20:44 Dose: 1,000 mg Docusate Sodium (Docusate Sodium 100 Mg Capsule) 100 mg PO DAILY PRN PRN Reason: Constipation Last Admin: 09/22/22 20:32 Dose: 100 mg Ferrous Sulfate (Ferrous Sulfate 300 Mg/5 Ml Liquid) 300 mg PO TIDWM [facility] Last Admin: 09/26/22 09:10 Dose: Not Given Haloperidol Lactate (Haloperidol Lactate 5 Mg/Ml Vial) 10 mg IM ONCE PRN PRN Reason: Agitation in dialysis Last Admin: 09/15/22 11:20 Dose: 10 mg Midodrine (Midodrine Hcl 10 Mg Tablet) 10 mg PO TID [facility] Last Admin: 09/26/22 09:10 Dose: Not Given Non-Formulary Medication (Thiothixene) 15 mg PO DAILY [facility] Last Admin: 09/26/22 09:08 Dose: 15 mg Olanzapine (Olanzapine 10 Mg Vial) 2.5 mg IM Q6H PRN PRN Reason: anxiety/restlessness Olanzapine (Olanzapine Odt 10 Mg Tab.Rapdis) 10 mg TRANSLINGU BID [facility] Last Admin: 09/26/22 09:14 Dose: 10 mg Olanzapine (Olanzapine 10 Mg Vial) 10 mg IM BID PRN PRN Reason: Psychosis Last Admin: 09/24/22 22:23 Dose: 10 mg Ondansetron HCl (Ondansetron Hcl 4 Mg/2 Ml Vial) 4 mg IVPUSH Q8H PRN PRN Reason: Nausea and Vomiting Allergies Allergies Allergy/AdvReac Type Severity Reaction Status Date / Time No Known Allergies Allergy Verified 09/06/22 09:01 Assessment & Plan Assessment & Plan (1) ESRD needing dialysis: Status: Acute Code(s): N18.6 - End stage renal disease; Z99.2 - Dependence on renal dialysis Assessment and Plan: ESRD: HD TTS cont HD 3x/wk; cont meds as noted (2) Schizoaffective disorder, bipolar type: Status: Acute Code(s): F25.0 - Schizoaffective disorder, bipolar type Plan The patient is an elderly male with a past history of bipolar disorder admitted for exacerbation of symptoms in the context of noncompliance. He also has end-stage renal disease on dialysis that he refused the procedure. Currently he has an affirmed healthcare proxy and his wants to have psychiatric and medical treatment. Plan 1. Continue with medical treatment. 2. Zyprexa bid, if refuses IM. 3. Today we will have a family meeting and explore other treatment options besides Zyprexa since he is not responding much better. Reason for continued inpatient stay Substantial Risk for: inability to function, rapid decompensation and med/psych decompensation Time Spent With Patient Time: Total time managing care of this patient today _20___ minutes.
[2022-09-26] MEDS: polyethylene glycoL 3350 17 GM POWD.PACK PO (16:27)
[2022-09-26] MEDS: Docusate Sodium 100 MG CAPSULE PO (16:27)
[2022-09-26 18:00] VITALS: BP 97/50; PULSE 82; RESP 16; TEMP 35.9; O2SAT 98
[2022-09-26] MEDS: Divalproex Sodium ER 500 MG TAB.ER.24H 1000 MG PO (20:40)
[2022-09-26] MEDS: Midodrine HCl 10 MG TABLET PO (20:41)
[2022-09-27 07:00] VITALS: BP 90/63; PULSE 75; RESP 18; TEMP 35.8; O2SAT 97
[2022-09-27] MEDS: Midodrine HCl 10 MG TABLET PO ×3 (08:28→22:35)
--- NOTE | 2022-09-27 09:38 | P.PNNPD_ITS ---
Subjective Subjective This patient was seen during dialysis. Interval history: Events noted Physical Exam Vital Signs: Vital Signs: Last Vital Signs Temp 96.5 F L 09/27/22 07:00 Pulse 75 09/27/22 07:00 Resp 18 09/27/22 07:00 BP 90/63 09/27/22 07:00 Pulse Ox 97 09/27/22 07:00 O2 Del Method Room Air 09/27/22 07:00 BMI result Body Mass Index 24.4 Const: General: no acute distress Eyes: EOM: EOMs intact bilaterally Neck: Neck: Yes supple Resp: Effort & Inspection: normal respiratory effort Auscultation: clear to auscultation bilaterally and diminished lung sounds Cardio: Jugular venous distension: no JVD Rate: regular rate Rhythm: reg ular rhythm GI: Inspection: Yes normal to inspection Palpation (GI): Soft to palpation Auscultation: normal bowel sounds Neuro: General: moves all extremities Extrem: General: Yes normal to inspection Assessment & Plan Assessment and plan (1) Schizoaffective disorder, bipolar type: Status: Acute (2) ESRD needing dialysis: Status: Acute (3) ESRD (end stage renal disease): Status: Acute Plan ESRD. No overt signs or symptoms of uremia. Continue to dialyze at least 3 times a week. Anemia. Hyponatremia. Most likely due to decreased free water clearance induced by medications. Restrict oral free water intake to 1 L per 24 hours. CBC, Chem 7 ordered Time Spent With Patient Time: Total time managing care of this patient today ____ minutes. Procedures Date of Service Date of Service: 09/29/22
[2022-09-27 10:04] LABS: Hematocrit 23.4 % (42.0-52.0); Hemoglobin 8.3 g/dl (14.0-18.0); Mean Corpuscular HGB Conc 35.5 g/dl (31.0-36.0); Mean Corpuscular Hemoglobin 34.3 pg (27.0-33.0); Mean Corpuscular Volume 96.7 fL (80.0-98.0); Mean Platelet Volume 10.1 fL (9.4-12.4); Platelet Count 113 X10*3/uL (160-400); Red Blood Count 2.42 X10*6/uL (4.60-5.80); White Blood Count 3.8 X10*3/uL (4.8-10.8)
[2022-09-27 10:42] LABS: Anion Gap 15 (12-20); Blood Urea Nitrogen 26 mg/dL (9-16); Calcium 8.3 mg/dL (8.4-10.2); Carbon Dioxide 23 mmol/L (22-29); Chloride 98 mmol/L (96-108); Creatinine Clr Calc Pharmacy 11.8; Estimated Glomerular Filt Rate 9; Glucose Random 99 mg/dL (60-115); Potassium 3.3 mmol/L (3.3-5.1); Sodium 133 mmol/L (135-145)
--- NOTE | 2022-09-27 12:23 | HO.PSYCHPN ---
Subjective Subjective Date of Service: 09/27/22 Reason For Visit: missed dialysis- psychosis bipolar Subjective Notes: Conditional Voluntary Interim History: The nursing staff reported the patient slept well, he went to dialysis today without opposition. Yesterday the social science instructor and the and myself had a meeting that we consider to change his antipsychotics since there were not major improvement. He refused to change Zyprexa to Abilify. Today I offer him to the change but he was reluctant. Mental Status Exam Mental Status Exam Patient Appearance: Appropriate Patient Orientation: Person and Situation Level of Consciousness: Awake Patient Behavior: Guarded and Passive Mood Description: Withdrawn Affect Description: Blunted Patient Cognition Impaired: Yes Ability to Follow Directions: Fair Speech Pattern: Impoverished and Monotone Hallucinations: None Delusions: Paranoid Ideation Thought Process: Distracted and Slowed Thinking Thought Content: positive for [place] and positive for Thought Blocking Judgement: Poor Diagnostics Vital Signs (24Hr): Vital Signs - 24 hr 09/26/22 18:00 09/27/22 07:00 Temperature 96.7 F L 96.5 F L Pulse Rate 82 75 Respiratory Rate 16 18 Blood Pressure 97/50 L 90/63 Pulse Oximetry 98 97 Oxygen Delivery Method Room Air Room Air BMI result Body Mass Index 24.4 Labs 09/27/22 09:43 09/27/22 09:43 Labs: Laboratory Results - last 48 hr 09/27/22 09/27/22 09:43 09:43 WBC 3.8 L RBC 2.42 L D Hgb 8.3 L D Hct 23.4 L D MCV 96.7 MCH 34.3 H MCHC 35.5 RDW 12.0 Plt Count 113 L MPV 10.1 Absolute Nucleated RBC 0.000 Nucleated RBC % (auto) 0.0 Sodium 133 L Potassium 3.3 D Chloride 98 Carbon Dioxide 23 Anion Gap 15 BUN 26 H Creatinine 6.44 H* Estim Creat Clear Calc 11.8 Estimated GFR 9 Random Glucose 99 Calcium 8.3 L D Medications Medications Current Medications Acetaminophen (Acetaminophen 325 Mg Tablet) 650 mg PO Q6H PRN PRN Reason: Pain, Mild (Pain Scale 1-3) Aspirin (Aspirin 81 Mg Tab.Chew) 81 mg PO DAILY [facility] Last Admin: 09/26/22 09:10 Dose: Not Given Benztropine Mesylate (Benztropine Mesylate 1 Mg Tablet) 1 mg PO BID [facility] Last Admin: 09/26/22 20:41 Dose: 1 mg Bisacodyl (Bisacodyl 5 Mg Tablet.Dr) 10 mg PO DAILY PRN PRN Reason: Constipation Last Admin: 09/26/22 09:18 Dose: 10 mg Divalproex Sodium (Divalproex Sodium Er 500 Mg Tab.Er.24h) 1,000 mg PO BEDTIME [facility] Last Admin: 09/26/22 20:40 Dose: 1,000 mg Docusate Sodium (Docusate Sodium 100 Mg Capsule) 100 mg PO DAILY PRN PRN Reason: Constipation Last Admin: 09/26/22 16:27 Dose: 100 mg Ferrous Sulfate (Ferrous Sulfate 300 Mg/5 Ml Liquid) 300 mg PO TIDWM [facility] Last Admin: 09/26/22 17:22 Dose: Not Given Haloperidol Lactate (Haloperidol Lactate 5 Mg/Ml Vial) 10 mg IM ONCE PRN PRN Reason: Agitation in dialysis Last Admin: 09/15/22 11:20 Dose: 10 mg Midodrine (Midodrine Hcl 10 Mg Tablet) 10 mg PO TID [facility] Last Admin: 09/27/22 08:28 Dose: 10 mg Non-Formulary Medication (Thiothixene) 15 mg PO DAILY [facility] Last Admin: 09/26/22 09:08 Dose: 15 mg Olanzapine (Olanzapine 10 Mg Vial) 2.5 mg IM Q6H PRN PRN Reason: anxiety/restlessness Olanzapine (Olanzapine Odt 10 Mg Tab.Rapdis) 10 mg TRANSLINGU BID [facility] Last Admin: 09/26/22 20:40 Dose: 10 mg Olanzapine (Olanzapine 10 Mg Vial) 10 mg IM BID PRN PRN Reason: Psychosis Last Admin: 09/24/22 22:23 Dose: 10 mg Ondansetron HCl (Ondansetron Hcl 4 Mg/2 Ml Vial) 4 mg IVPUSH Q8H PRN PRN Reason: Nausea and Vomiting Polyethylene Glycol (Polyethylene Glycol 3350 17 Gm Powd.Pack) 17 gm PO DAILY PRN PRN Reason: Constipation Last Admin: 09/26/22 16:27 Dose: 17 gm Allergies Allergies Allergy/AdvReac Type Severity Reaction Status Date / Time No Known Allergies Allergy Verified 09/06/22 09:01 Assessment & Plan Assessment & Plan (1) Schizoaffective disorder, bipolar type: Status: Acute Code(s): F25.0 - Schizoaffective disorder, bipolar type (2) ESRD needing dialysis: Status: Acute Code(s): N18.6 - End stage renal disease; Z99.2 - Dependence on renal dialysis (3) ESRD (end stage renal disease): Status: Acute Code(s): N18.6 - End stage renal disease Plan ESRD. No overt signs or symptoms of uremia. Continue to dialyze at least 3 times a week. Anemia. Hyponatremia. Most likely due to decreased free water clearance induced by medications. Restrict oral free water intake to 1 L per 24 hours. CBC, Chem 7 ordered Plan 1. The patient at this moment have an affirmed healthcare proxy. He cannot refused antipsychotics. 2. I offer him to cross taper to Abilify instead of Zyprexa since there was not an improvement of his thought blocking but he has refused at this moment. We will be offered again and his decided to change to Abilify tomorrow AM. 3. We will continue with medical workout Reason for continued inpatient stay Substantial Risk for: inability to function, rapid decompensation and med/psych decompensation Time Spent With Patient Time: Total time managing care of this patient today _20___ minutes.
[2022-09-27] MEDS: Benztropine Mesylate 1 MG TABLET PO ×2 (12:59→20:39)
[2022-09-27] MEDS: Aspirin 81 MG TAB.CHEW PO (13:00)
[2022-09-27] MEDS: OLANZapine ODT 10 MG TAB.RAPDIS TRANSLINGU ×2 (13:00→20:39)
[2022-09-27] MEDS: Divalproex Sodium ER 500 MG TAB.ER.24H 1000 MG PO (20:38)
[2022-09-27 22:00] VITALS: BP 60/20; PULSE 77; RESP 16; O2SAT 97
--- NOTE | 2022-09-27 22:35 | PM.EVENT ---
Event Note Date of Service: 09/27/22 Event Note: A rapid response was called on this patient for hypotension. Patient was hypotensive on manual blood pressure check with BP noted to be 70s over 50s. Patient is sitting in the chair, completely asymptomatic. Able to answer questions appropriately. Awake alert oriented to self and place. Denies any symptoms including no headache or change in vision, no dizziness no chest pain no palpitations. No shortness of breath patient is status post dialysis this afternoon. At this time will give 10 mg of p.o. midodrine and reassess blood pressure. Time Spent With Patient Time: Total time managing care of this patient today ____ minutes.
[2022-09-27 23:00] VITALS: BP 129/63; PULSE 78; RESP 16; O2SAT 97
[2022-09-27 23:21] VITALS: BP 132/69; PULSE 86; RESP 16; O2SAT 96
[2022-09-28] MEDS: Midodrine HCl 10 MG TABLET PO ×4 (00:06→20:58)
--- NOTE | 2022-09-28 06:43 | PC.NURSE ---
[id number] [employer] called the following information imparted to responding staff/md 1. sbp 60-70 mmhg 2. b/p taken auto cuff/manual/auto 3. apical hr in the 80,s 4. pt had undergone hemodialysis earlier in the day 5.midodrine 10 mg po at 1999 6. pt has intermittently been declining midodrine-plan midodrine 10 mg po stat.
--- NOTE | 2022-09-28 06:51 | PC.NURSE ---
2300-pt has been asymptomatic. his b/p has improved sbp 120-130 mmhg.
[2022-09-28 07:30] VITALS: BP 84/59; PULSE 80; RESP 16; TEMP 35.9; O2SAT 96
[2022-09-28] MEDS: Benztropine Mesylate 1 MG TABLET PO ×2 (11:01→20:57)
[2022-09-28] MEDS: ARIPiprazole 5 MG TABLET PO (11:01)
--- NOTE | 2022-09-28 11:37 | HO.PSYCHPN ---
Subjective Subjective Date of Service: 09/28/22 Reason For Visit: missed dialysis- psychosis bipolar Subjective Notes: Conditional Voluntary Interim History: The nursing staff reported the patient slept well, he had dialysis yesterday. Yesterday we had to call a rapid response since he was hypotensive and he needed to take midodrine. On interview the patient remains internally preoccupied, no side effects with the new dose of Abilify. Mental Status Exam Mental Status Exam Patient Appearance: Well Grooomed and Appropriate Patient Orientation: Person and Situation Level of Consciousness: Awake Patient Behavior: Guarded and Passive Mood Description: Withdrawn Affect Description: Constricted Patient Cognition Impaired: Yes Ability to Follow Directions: Good Speech Pattern: Clear Hallucinations: None Delusions: Paranoid Ideation Thought Process: Distracted and Evasive Thought Content: positive for [place] and positive for Thought Blocking Judgement: Poor Diagnostics Vital Signs (24Hr): Vital Signs - 24 hr 09/27/22 23:21 09/27/22 23:00 09/27/22 22:00 Temperature Pulse Rate 86 78 77 Respiratory Rate 16 16 16 Blood Pressure 132/69 129/63 60/20 L Pulse Oximetry 96 97 97 Oxygen Delivery Method Room Air Room Air Room Air 09/28/22 07:30 Temperature 96.7 F L Pulse Rate 80 Respiratory Rate 16 Blood Pressure 84/59 L Pulse Oximetry 96 Oxygen Delivery Method Room Air BMI result Body Mass Index 24.4 Labs 09/27/22 09:43 09/27/22 09:43 Labs: Laboratory Results - last 48 hr 09/27/22 09/27/22 09:43 09:43 WBC 3.8 L RBC 2.42 L D Hgb 8.3 L D Hct 23.4 L D MCV 96.7 MCH 34.3 H MCHC 35.5 RDW 12.0 Plt Count 113 L MPV 10.1 Absolute Nucleated RBC 0.000 Nucleated RBC % (auto) 0.0 Sodium 133 L Potassium 3.3 D Chloride 98 Carbon Dioxide 23 Anion Gap 15 BUN 26 H Creatinine 6.44 H* Estim Creat Clear Calc 11.8 Estimated GFR 9 Random Glucose 99 Calcium 8.3 L D Medications Medications Current Medications Acetaminophen (Acetaminophen 325 Mg Tablet) 650 mg PO Q6H PRN PRN Reason: Pain, Mild (Pain Scale 1-3) Aripiprazole (Aripiprazole 5 Mg Tablet) 5 mg PO DAILY [facility] Last Admin: 09/28/22 11:01 Dose: 5 mg Aspirin (Aspirin 81 Mg Tab.Chew) 81 mg PO DAILY [facility] Last Admin: 09/28/22 11:03 Dose: Not Given Benztropine Mesylate (Benztropine Mesylate 1 Mg Tablet) 1 mg PO BID [facility] Last Admin: 09/28/22 11:01 Dose: 1 mg Bisacodyl (Bisacodyl 5 Mg Tablet.Dr) 10 mg PO DAILY PRN PRN Reason: Constipation Last Admin: 09/26/22 09:18 Dose: 10 mg Divalproex Sodium (Divalproex Sodium Er 500 Mg Tab.Er.24h) 1,000 mg PO BEDTIME [facility] Last Admin: 09/27/22 20:38 Dose: 1,000 mg Docusate Sodium (Docusate Sodium 100 Mg Capsule) 100 mg PO DAILY PRN PRN Reason: Constipation Last Admin: 09/26/22 16:27 Dose: 100 mg Ferrous Sulfate (Ferrous Sulfate 300 Mg/5 Ml Liquid) 300 mg PO TIDWM [facility] Last Admin: 09/28/22 11:13 Dose: Not Given Haloperidol Lactate (Haloperidol Lactate 5 Mg/Ml Vial) 10 mg IM ONCE PRN PRN Reason: Agitation in dialysis Last Admin: 09/15/22 11:20 Dose: 10 mg Midodrine (Midodrine Hcl 10 Mg Tablet) 10 mg PO TID [facility] Last Admin: 09/28/22 11:00 Dose: 10 mg Non-Formulary Medication (Thiothixene) 15 mg PO DAILY [facility] Last Admin: 09/28/22 10:59 Dose: 15 mg Olanzapine (Olanzapine 10 Mg Vial) 2.5 mg IM Q6H PRN PRN Reason: anxiety/restlessness Olanzapine (Olanzapine 10 Mg Vial) 10 mg IM BID PRN PRN Reason: Psychosis Last Admin: 09/24/22 22:23 Dose: 10 mg Ondansetron HCl (Ondansetron Hcl 4 Mg/2 Ml Vial) 4 mg IVPUSH Q8H PRN PRN Reason: Nausea and Vomiting Polyethylene Glycol (Polyethylene Glycol 3350 17 Gm Powd.Pack) 17 gm PO DAILY PRN PRN Reason: Constipation Last Admin: 09/26/22 16:27 Dose: 17 gm Allergies Allergies Allergy/AdvReac Type Severity Reaction Status Date / Time No Known Allergies Allergy Verified 09/06/22 09:01 Assessment & Plan Assessment & Plan (1) Schizoaffective disorder, bipolar type: Status: Acute Code(s): F25.0 - Schizoaffective disorder, bipolar type (2) ESRD needing dialysis: Status: Acute Code(s): N18.6 - End stage renal disease; Z99.2 - Dependence on renal dialysis (3) ESRD (end stage renal disease): Status: Acute Code(s): N18.6 - End stage renal disease Plan ESRD. No overt signs or symptoms of uremia. Continue to dialyze at least 3 times a week. Anemia. Hyponatremia. Most likely due to decreased free water clearance induced by medications. Restrict oral free water intake to 1 L per 24 hours. CBC, Chem 7 ordered Plan 1. The patient at this moment have an affirmed healthcare proxy. He cannot refused antipsychotics. 2. I offer him to cross taper to Abilify instead of Zyprexa since there was not an improvement of his thought blocking but he has refused at this moment. We will be offered again and his decided to change to Abilify tomorrow AM. 3. We will continue with medical workout Reason for continued inpatient stay Substantial Risk for: inability to function, rapid decompensation and med/psych decompensation Time Spent With Patient Time: Total time managing care of this patient today __20__ minutes.
[2022-09-28 18:00] VITALS: BP 107/56; PULSE 79; RESP 18; TEMP 36.3; O2SAT 98
[2022-09-28] MEDS: Divalproex Sodium ER 500 MG TAB.ER.24H 1000 MG PO (20:57)
[2022-09-29 07:00] VITALS: BMI 26.1
[2022-09-29 08:00] VITALS: BP 93/51; PULSE 73; RESP 18; TEMP 36; O2SAT 96
[2022-09-29] MEDS: Midodrine HCl 10 MG TABLET PO ×3 (08:16→21:19)
--- NOTE | 2022-09-29 09:50 | W.PM.DNNEP ---
Subjective Subjective This patient was seen during dialysis. Interval history: The nursing staff reported the patient slept well, he had dialysis yesterday. Yesterday we had to call a rapid response since he was hypotensive and he needed to take midodrine. On interview the patient remains internally preoccupied, no side effects with the new dose of Abilify. Physical Exam Vital Signs: Vital Signs: Last Vital Signs Temp 96.8 F 09/29/22 08:00 Pulse 73 09/29/22 08:00 Resp 18 09/29/22 08:00 BP 93/51 L 09/29/22 08:00 Pulse Ox 96 09/29/22 08:00 O2 Del Method Room Air 09/29/22 08:00 BMI result Body Mass Index 24.4 Const: General: no acute distress Eyes: EOM: EOMs intact bilaterally Neck: Neck: Yes supple Resp: Effort & Inspection: normal respiratory effort Auscultation: clear to auscultation bilaterally and diminished lung sounds Cardio: Jugular venous distension: no JVD Rate: regular rate Rhythm: regular rhythm GI: Inspection: Yes normal to inspection Palpation (GI): Soft to palpation Auscultation: normal bowel sounds Neuro: General: moves all extremities Extrem: General: Yes normal to inspection Assessment & Plan Assessment and plan (1) Schizoaffective disorder, bipolar type: Status: Acute (2) ESRD needing dialysis: Status: Acute (3) ESRD (end stage renal disease): Status: Acute Plan ESRD. No overt signs or symptoms of uremia. Continue to dialyze at least 3 times a week. Anemia. Ordered Procrit Hyponatremia. Most likely due to decreased free water clearance induced by medications. Restrict oral free water intake to 1 L per 24 hours. Time Spent With Patient Time: Total time managing care of this patient today ____ minutes. Procedures Date of Service Date of Service: 09/29/22
[2022-09-29] MEDS: Benztropine Mesylate 1 MG TABLET PO ×2 (13:03→21:20)
[2022-09-29] MEDS: ARIPiprazole 5 MG TABLET PO ×2 (13:03→15:05)
[2022-09-29] MEDS: OLANZapine 10 MG VIAL IM (13:25)
--- NOTE | 2022-09-29 14:30 | HO.PSYCHPN ---
Subjective Subjective Date of Service: 09/29/22 Reason For Visit: missed dialysis- psychosis bipolar Subjective Notes: Conditional Voluntary Interim History: The nursing staff has noticed that the patient have shown slightly brighter affect. He had been compliant with medications. On interview the patient could not remember that we change Zyprexa to Abilify and he has refused it so he received a backup IM. Today with his I explained him that he has to take Abilify and he is going today 1 time only now. Mental Status Exam Mental Status Exam Patient Appearance: Well Grooomed and Appropriate Patient Orientation: Person and Situation Level of Consciousness: Awake and Appropriate Patient Behavior: Guarded and Passive Mood Description: Withdrawn Affect Description: Constricted Patient Cognition Impaired: Yes Ability to Follow Directions: Good Speech Pattern: Clear Hallucinations: None Delusions: Not Present Thought Process: Distracted Thought Content: positive for [place] and positive for Circumstantial Judgement: Fair Diagnostics Vital Signs (24Hr): Vital Signs - 24 hr 09/28/22 18:00 09/29/22 08:00 Temperature 97.4 F 96.8 F Pulse Rate 79 73 Respiratory Rate 18 18 Blood Pressure 107/56 L 93/51 L Pulse Oximetry 98 96 Oxygen Delivery Method Room Air Room Air BMI result Body Mass Index 24.4 Labs 09/27/22 09:43 09/27/22 09:43 Medications Medications Current Medications Acetaminophen (Acetaminophen 325 Mg Tablet) 650 mg PO Q6H PRN PRN Reason: Pain, Mild (Pain Scale 1-3) Aripiprazole (Aripiprazole 5 Mg Tablet) 5 mg PO DAILY [facility] Last Admin: 09/29/22 13:03 Dose: 5 mg Aspirin (Aspirin 81 Mg Tab.Chew) 81 mg PO DAILY [facility] Last Admin: 09/29/22 13:26 Dose: Not Given Benztropine Mesylate (Benztropine Mesylate 1 Mg Tablet) 1 mg PO BID [facility] Last Admin: 09/29/22 13:03 Dose: 1 mg Bisacodyl (Bisacodyl 5 Mg Tablet.Dr) 10 mg PO DAILY PRN PRN Reason: Constipation Last Admin: 09/26/22 09:18 Dose: 10 mg Divalproex Sodium (Divalproex Sodium Er 500 Mg Tab.Er.24h) 1,000 mg PO BEDTIME [facility] Last Admin: 09/28/22 20:57 Dose: 1,000 mg Docusate Sodium (Docusate Sodium 100 Mg Capsule) 100 mg PO DAILY PRN PRN Reason: Constipation Last Admin: 09/26/22 16:27 Dose: 100 mg Ferrous Sulfate (Ferrous Sulfate 300 Mg/5 Ml Liquid) 300 mg PO TIDWM [facility] Last Admin: 09/29/22 13:28 Dose: Not Given Haloperidol Lactate (Haloperidol Lactate 5 Mg/Ml Vial) 10 mg IM ONCE PRN PRN Reason: Agitation in dialysis Last Admin: 09/15/22 11:20 Dose: 10 mg Midodrine (Midodrine Hcl 10 Mg Tablet) 10 mg PO TID [facility] Last Admin: 09/29/22 08:16 Dose: 10 mg Non-Formulary Medication (Thiothixene) 15 mg PO DAILY [facility] Last Admin: 09/29/22 13:06 Dose: 15 mg Olanzapine (Olanzapine 10 Mg Vial) 2.5 mg IM Q6H PRN PRN Reason: anxiety/restlessness Olanzapine (Olanzapine 10 Mg Vial) 10 mg IM BID PRN PRN Reason: Psychosis Last Admin: 09/29/22 13:25 Dose: 10 mg Ondansetron HCl (Ondansetron Hcl 4 Mg/2 Ml Vial) 4 mg IVPUSH Q8H PRN PRN Reason: Nausea and Vomiting Polyethylene Glycol (Polyethylene Glycol 3350 17 Gm Powd.Pack) 17 gm PO DAILY PRN PRN Reason: Constipation Last Admin: 09/26/22 16:27 Dose: 17 gm Allergies Allergies Allergy/AdvReac Type Severity Reaction Status Date / Time No Known Allergies Allergy Verified 09/06/22 09:01 Assessment & Plan Assessment & Plan (1) Schizoaffective disorder, bipolar type: Status: Acute Code(s): F25.0 - Schizoaffective disorder, bipolar type (2) ESRD needing dialysis: Status: Acute Code(s): N18.6 - End stage renal disease; Z99.2 - Dependence on renal dialysis (3) ESRD (end stage renal disease): Status: Acute Code(s): N18.6 - End stage renal disease Plan ESRD. No overt signs or symptoms of uremia. Continue to dialyze at least 3 times a week. Anemia. Ordered Procrit Hyponatremia. Most likely due to decreased free water clearance induced by medications. Restrict oral free water intake to 1 L per 24 hours. Plan 1. Zyprexa was discontinue and started on Abilify 5 mg p.o. q.a.m. to target mood lability. 2. Continue with now vein and other medications. 3. Continue with dialysis. Reason for continued inpatient stay Substantial Risk for: inability to function, rapid decompensation and med/psych decompensation Time Spent With Patient Time: Total time managing care of this patient today __20__ minutes.
[2022-09-29 18:00] VITALS: BP 109/58; PULSE 74; RESP 16; TEMP 36.5; O2SAT 98
[2022-09-29] MEDS: Divalproex Sodium ER 500 MG TAB.ER.24H 1000 MG PO (21:19)
[2022-09-30 08:20] VITALS: BP 78/47; PULSE 72; RESP 16; TEMP 36.1; O2SAT 98
[2022-09-30] MEDS: ARIPiprazole 5 MG TABLET PO (09:02)
[2022-09-30] MEDS: Midodrine HCl 10 MG TABLET PO ×3 (09:02→20:30)
[2022-09-30] MEDS: Benztropine Mesylate 1 MG TABLET PO ×2 (09:02→20:30)
--- NOTE | 2022-09-30 09:35 | HO.PSYCHPN ---
Subjective Subjective Date of Service: 09/30/22 Reason For Visit: missed dialysis- psychosis bipolar Subjective Notes: Conditional Voluntary (By affirmed healthcare proxy) Healthcare Proxy: Yes Interim History: The nursing staff reported that yesterday he refused his Abilify in the morning and needed a Zyprexa IM as a backup. Later on, while his came and visited with talked and he agreed to take Abilify p.o.. He slept well. On interview, the patient denies new symptoms, he wants to go back home we will increase Abilify up to 10 mg p.o. daily to target mood lability and paranoia. He has scheduled dialysis for tomorrow. He looks more awake and alert since we changed the antipsychotic. Mental Status Exam Mental Status Exam Patient Appearance: Well Grooomed and Unkempt Patient Orientation: Person, Place and Situation Level of Consciousness: Awake Patient Behavior: Guarded and Suspicious Mood Description: Withdrawn Affect Description: Blunted Patient Cognition Impaired: Yes Ability to Follow Directions: Fair Speech Pattern: Clear Hallucinations: None Delusions: Paranoid Ideation Thought Process: Distracted and Slowed Thinking Thought Content: positive for Poverty of Content, positive for Loose Associations and positive for Thought Blocking Judgement: Poor Diagnostics Vital Signs (24Hr): Vital Signs - 24 hr 09/29/22 18:00 09/30/22 08:20 Temperature 97.7 F 96.9 F Pulse Rate 74 72 Respiratory Rate 16 16 Blood Pressure 109/58 L 78/47 L Pulse Oximetry 98 98 Oxygen Delivery Method Room Air Room Air BMI result Body Mass Index 26.1 Labs 09/27/22 09:43 09/27/22 09:43 Medications Medications Current Medications Acetaminophen (Acetaminophen 325 Mg Tablet) 650 mg PO Q6H PRN PRN Reason: Pain, Mild (Pain Scale 1-3) Aripiprazole (Aripiprazole 10 Mg Tablet) 10 mg PO DAILY [facility] Aspirin (Aspirin 81 Mg Tab.Chew) 81 mg PO DAILY [facility] Last Admin: 09/30/22 09:06 Dose: Not Given Benztropine Mesylate (Benztropine Mesylate 1 Mg Tablet) 1 mg PO BID [facility] Last Admin: 09/30/22 09:02 Dose: 1 mg Bisacodyl (Bisacodyl 5 Mg Tablet.) 10 mg PO DAILY PRN PRN Reason: Constipation Last Admin: 09/26/22 09:18 Dose: 10 mg Divalproex Sodium (Divalproex Sodium Er 500 Mg Tab.Er.24h) 1,000 mg PO BEDTIME [facility] Last Admin: 09/29/22 21:19 Dose: 1,000 mg Docusate Sodium (Docusate Sodium 100 Mg Capsule) 100 mg PO DAILY PRN PRN Reason: Constipation Last Admin: 09/26/22 16:27 Dose: 100 mg Ferrous Sulfate (Ferrous Sulfate 300 Mg/5 Ml Liquid) 300 mg PO TIDWM [facility] Last Admin: 09/30/22 09:06 Dose: Not Given Haloperidol Lactate (Haloperidol Lactate 5 Mg/Ml Vial) 10 mg IM ONCE PRN PRN Reason: Agitation in dialysis Last Admin: 09/15/22 11:20 Dose: 10 mg Midodrine (Midodrine Hcl 10 Mg Tablet) 10 mg PO TID [facility] Last Admin: 09/30/22 09:02 Dose: 10 mg Non-Formulary Medication (Thiothixene) 15 mg PO DAILY [facility] Last Admin: 09/30/22 09:02 Dose: 15 mg Olanzapine (Olanzapine 10 Mg Vial) 2.5 mg IM Q6H PRN PRN Reason: anxiety/restlessness Olanzapine (Olanzapine 10 Mg Vial) 10 mg IM BID PRN PRN Reason: Psychosis Last Admin: 09/29/22 13:25 Dose: 10 mg Ondansetron HCl (Ondansetron Hcl 4 Mg/2 Ml Vial) 4 mg IVPUSH Q8H PRN PRN Reason: Nausea and Vomiting Polyethylene Glycol (Polyethylene Glycol 3350 17 Gm Powd.Pack) 17 gm PO DAILY PRN PRN Reason: Constipation Last Admin: 09/26/22 16:27 Dose: 17 gm Allergies Allergies Allergy/AdvReac Type Severity Reaction Status Date / Time No Known Allergies Allergy Verified 09/06/22 09:01 Assessment & Plan Assessment & Plan (1) Schizoaffective disorder, bipolar type: Status: Acute Code(s): F25.0 - Schizoaffective disorder, bipolar type (2) ESRD needing dialysis: Status: Acute Code(s): N18.6 - End stage renal disease; Z99.2 - Dependence on renal dialysis (3) ESRD (end stage renal disease): Status: Acute Code(s): N18.6 - End stage renal disease Plan ESRD. No overt signs or symptoms of uremia. Continue to dialyze at least 3 times a week. Anemia. Ordered Procrit Hyponatremia. Most likely due to decreased free water clearance induced by medications. Restrict oral free water intake to 1 L per 24 hours. Plan 1. Zyprexa was discontinue and started on Abilify 5 mg p.o. q.a.m. to target mood lability. Abilify will be increased on October 01 up to 10 mg p.o. daily to target mood and psychosis. 2. Continue with now vein and other medications. 3. Continue with dialysis. Reason for continued inpatient stay Substantial Risk for: inability to function, rapid decompensation and med/psych decompensation Time Spent With Patient Time: Total time managing care of this patient today __20__ minutes.
--- NOTE | 2022-09-30 13:45 | MHC.CLN ---
F/U CONTINUES WITH HEMODIALYSIS THREE TIMES WEEKLY. DIET LIBERALIZED TO REGULAR DUE TO HISTORY OF POOR PO. ENSURE BID PROVIDES ADDITIONAL 700 KCALS, 40 G PROTEIN. VARIABLE INTAKE. TODAY, ATE 75% OR BREAKFAST AND LUNCH. 09/27 LABS REVIEWED. FOLLOW FOR INTAKE, DIALYSIS, AND LABS. CONTINUE CURRENT DIET AND SUPPLEMENT. RD TO FOLLOW WEEKLY.
[2022-09-30 18:00] VITALS: BP 117/61; PULSE 77; RESP 16; TEMP 35.8; O2SAT 100
[2022-09-30] MEDS: Divalproex Sodium ER 500 MG TAB.ER.24H 1000 MG PO (20:29)
[2022-10-01 08:05] VITALS: BP 111/61; PULSE 73; RESP 18; TEMP 36; O2SAT 95
--- NOTE | 2022-10-01 12:32 | W.PM.DNNEP ---
Subjective Subjective This patient was seen during dialysis. Interval history: The nursing staff reported that yesterday he refused his Abilify in the morning and needed a Zyprexa IM as a backup. Later on, while his came and visited with talked and he agreed to take Abilify p.o.. He slept well. On interview, the patient denies new symptoms, he wants to go back home we will increase Abilify up to 10 mg p.o. daily to target mood lability and paranoia. He has scheduled dialysis for tomorrow. He looks more awake and alert since we changed the antipsychotic. Physical Exam Vital Signs: Vital Signs: Last Vital Signs Temp 96.8 F 10/01/22 08:05 Pulse 73 10/01/22 08:05 Resp 18 10/01/22 08:05 BP 111/61 10/01/22 08:05 Pulse Ox 95 10/01/22 08:05 O2 Del Method Room Air 10/01/22 08:05 BMI result Body Mass Index 26.1 Const: General: no acute distress Eyes: EOM: EOMs intact bilaterally Neck: Neck: Yes supple Resp: Effort & Inspection: normal respiratory effort Auscultation: clear to auscultation bilaterally and diminished lung sounds Cardio: Jugular venous distension: no JVD Rate: regular rate Rhythm: regular rhythm GI: Inspection: Yes normal to inspection Palpation (GI): Soft to palpation Auscultation: normal bowel sounds Neuro: General: moves all extremities Extrem: General: Yes normal to inspection Assessment & Plan Assessment and plan (1) Schizoaffective disorder, bipolar type: Status: Acute (2) ESRD needing dialysis: Status: Acute (3) ESRD (end stage renal disease): Status: Acute Plan ESRD. No overt signs or symptoms of uremia. Continue to dialyze at least 3 times a week. Anemia. Procrit Hyponatremia. Most likely due to decreased free water clearance induced by medications. Restrict oral free water intake to 1 L per 24 hours. Time Spent With Patient Time: Total time managing care of this patient today ____ minutes. Procedures Date of Service Date of Service: 10/04/22
--- NOTE | 2022-10-01 14:08 | HO.PSYCHPN ---
Subjective Subjective Date of Service: 10/01/22 Reason For Visit: missed dialysis- psychosis bipolar Subjective Notes: Conditional Voluntary Healthcare Proxy: No Guardianship: No Medical Problems Affecting Mental Status: No Interim History: met with patient.? Discussed with Nursing.? Overall doing okay.? Isolative.? Routine dialysis schedule today.? Patient reports being eager for discharge as he misses his .? Feels that his mood is stable.? Aware dialysis is happening today.? No concerns regarding current medication regimen.? Sleep energy and appetite okay. Medication Compliance: Yes Side effects from medications: No Attending Groups: No Review of Systems Acute medical concerns: No Review of Systems Review of Systems Nothing acute Mental Status Exam Mental Status Exam Patient Appearance: Well Grooomed and Unkempt Patient Orientation: Person, Place and Situation Level of Consciousness: Awake Patient Behavior: Guarded Mood Description: Withdrawn Affect Description: Blunted Patient Cognition Impaired: Yes Ability to Follow Directions: Fair Speech Pattern: Clear Hallucinations: None Delusions: Paranoid Ideation Thought Process: Distracted and Slowed Thinking Thought Content: positive for Poverty of Content, positive for Loose Associations and positive for Thought Blocking Judgement: Poor Diagnostics Vital Signs (24Hr): Vital Signs - 24 hr 09/30/22 18:00 10/01/22 08:05 Temperature 96.5 F L 96.8 F Pulse Rate 77 73 Respiratory Rate 16 18 Blood Pressure 117/61 111/61 Pulse Oximetry 100 95 Oxygen Delivery Method Room Air Room Air BMI result Body Mass Index 26.1 Labs 09/27/22 09:43 09/27/22 09:43 Medications Medications Current Medications Acetaminophen (Acetaminophen 325 Mg Tablet) 650 mg PO Q6H PRN PRN Reason: Pain, Mild (Pain Scale 1-3) Aripiprazole (Aripiprazole 10 Mg Tablet) 10 mg PO DAILY [facility] Aspirin (Aspirin 81 Mg Tab.Chew) 81 mg PO DAILY [facility] Last Admin: 09/30/22 09:06 Dose: Not Given Benztropine Mesylate (Benztropine Mesylate 1 Mg Tablet) 1 mg PO BID [facility] Last Admin: 09/30/22 20:30 Dose: 1 mg Bisacodyl (Bisacodyl 5 Mg Tablet.Dr) 10 mg PO DAILY PRN PRN Reason: Constipation Last Admin: 09/26/22 09:18 Dose: 10 mg Divalproex Sodium (Divalproex Sodium Er 500 Mg Tab.Er.24h) 1,000 mg PO BEDTIME [facility] Last Admin: 09/30/22 20:29 Dose: 1,000 mg Docusate Sodium (Docusate Sodium 100 Mg Capsule) 100 mg PO DAILY PRN PRN Reason: Constipation Last Admin: 09/26/22 16:27 Dose: 100 mg Ferrous Sulfate (Ferrous Sulfate 300 Mg/5 Ml Liquid) 300 mg PO TIDWM [facility] Last Admin: 09/30/22 18:15 Dose: Not Given Haloperidol Lactate (Haloperidol Lactate 5 Mg/Ml Vial) 10 mg IM ONCE PRN PRN Reason: Agitation in dialysis Last Admin: 09/15/22 11:20 Dose: 10 mg Midodrine (Midodrine Hcl 10 Mg Tablet) 10 mg PO TID [facility] Last Admin: 09/30/22 20:30 Dose: 10 mg Non-Formulary Medication (Thiothixene) 15 mg PO DAILY [facility] Last Admin: 09/30/22 09:02 Dose: 15 mg Olanzapine (Olanzapine 10 Mg Vial) 2.5 mg IM Q6H PRN PRN Reason: anxiety/restlessness Olanzapine (Olanzapine 10 Mg Vial) 10 mg IM BID PRN PRN Reason: Psychosis Last Admin: 09/29/22 13:25 Dose: 10 mg Ondansetron HCl (Ondansetron Hcl 4 Mg/2 Ml Vial) 4 mg IVPUSH Q8H PRN PRN Reason: Nausea and Vomiting Polyethylene Glycol (Polyethylene Glycol 3350 17 Gm Powd.Pack) 17 gm PO DAILY PRN PRN Reason: Constipation Last Admin: 09/26/22 16:27 Dose: 17 gm Allergies Allergies Allergy/AdvReac Type Severity Reaction Status Date / Time No Known Allergies Allergy Verified 09/06/22 09:01 Assessment & Plan Assessment & Plan (1) Schizoaffective disorder, bipolar type: Status: Acute Code(s): F25.0 - Schizoaffective disorder, bipolar type Assessment and Plan: 10/01/2022: No changes to current treatment plan (2) ESRD needing dialysis: Status: Acute Code(s): N18.6 - End stage renal disease; Z99.2 - Dependence on renal dialysis (3) ESRD (end stage renal disease): Status: Acute Code(s): N18.6 - End stage renal disease Plan ESRD. No overt signs or symptoms of uremia. Continue to dialyze at least 3 times a week. Anemia. Procrit Hyponatremia. Most likely due to decreased free water clearance induced by medications. Restrict oral free water intake to 1 L per 24 hours. Reason for continued inpatient stay Substantial Risk for: rapid decompensation Time Spent With Patient Time: Total time managing care of this patient today ____ minutes.
[2022-10-01 14:56] VITALS: BP 108/62; PULSE 82; RESP 18; TEMP 36.3; O2SAT 98
[2022-10-01] MEDS: Midodrine HCl 10 MG TABLET PO ×2 (15:01→20:28)
[2022-10-01] MEDS: ARIPiprazole 10 MG TABLET PO (15:01)
[2022-10-01] MEDS: Benztropine Mesylate 1 MG TABLET PO ×2 (15:02→20:28)
[2022-10-01 18:00] VITALS: BP 111/65; PULSE 82; RESP 16; TEMP 36.1; O2SAT 99
[2022-10-01] MEDS: Divalproex Sodium ER 500 MG TAB.ER.24H 1000 MG PO (20:28)
[2022-10-02 08:00] VITALS: BP 103/55; PULSE 82; RESP 16; TEMP 36.1; O2SAT 97
[2022-10-02] MEDS: ARIPiprazole 10 MG TABLET PO (08:31)
[2022-10-02] MEDS: Midodrine HCl 10 MG TABLET PO ×3 (08:31→21:33)
[2022-10-02] MEDS: Benztropine Mesylate 1 MG TABLET PO ×2 (08:31→21:33)
--- NOTE | 2022-10-02 12:38 | HO.PSYCHPN ---
Subjective Subjective Date of Service: 10/02/22 Reason For Visit: missed dialysis- psychosis bipolar Subjective Notes: Conditional Voluntary Medical Problems Affecting Mental Status: No Interim History: met with patient.? Discussed with Nursing.? Overall doing okay.? Less isolative.?More engaged. Patient reports being eager for discharge as he misses his - visting today also.? Feels that his mood is stable.? No concerns regarding current medication regimen.? Sleep energy and appetite okay. Eager to meet with team ref DC planning Medication Compliance: Yes Side effects from medications: No Attending Groups: Intermittent Review of Systems Acute medical concerns: No Review of Systems Review of Systems Nothing acute Mental Status Exam Mental Status Exam Patient Appearance: Well Grooomed and Unkempt Patient Orientation: Person, Place and Situation Level of Consciousness: Awake Patient Behavior: Guarded Mood Description: Withdrawn Affect Description: Blunted Patient Cognition Impaired: Yes Ability to Follow Directions: Fair Speech Pattern: Clear Diagnostics Vital Signs (24Hr): Vital Signs - 24 hr 10/01/22 14:56 10/01/22 18:00 10/02/22 08:00 Temperature 97.3 F 96.9 F 96.9 F Pulse Rate 82 82 82 Respiratory Rate 18 16 16 Blood Pressure 108/62 111/65 103/55 L Pulse Oximetry 98 99 97 Oxygen Delivery Method Room Air Room Air Room Air BMI result Body Mass Index 26.1 Labs 09/27/22 09:43 09/27/22 09:43 Medications Medications Current Medications Acetaminophen (Acetaminophen 325 Mg Tablet) 650 mg PO Q6H PRN PRN Reason: Pain, Mild (Pain Scale 1-3) Aripiprazole (Aripiprazole 10 Mg Tablet) 10 mg PO DAILY [facility] Last Admin: 10/02/22 08:31 Dose: 10 mg Aspirin (Aspirin 81 Mg Tab.Chew) 81 mg PO DAILY [facility] Last Admin: 10/02/22 08:44 Dose: Not Given Benztropine Mesylate (Benztropine Mesylate 1 Mg Tablet) 1 mg PO BID [facility] Last Admin: 10/02/22 08:31 Dose: 1 mg Bisacodyl (Bisacodyl 5 Mg Tablet.Dr) 10 mg PO DAILY PRN PRN Reason: Constipation Last Admin: 09/26/22 09:18 Dose: 10 mg Divalproex Sodium (Divalproex Sodium Er 500 Mg Tab.Er.24h) 1,000 mg PO BEDTIME [facility] Last Admin: 10/01/22 20:28 Dose: 1,000 mg Docusate Sodium (Docusate Sodium 100 Mg Capsule) 100 mg PO DAILY PRN PRN Reason: Constipation Last Admin: 09/26/22 16:27 Dose: 100 mg Ferrous Sulfate (Ferrous Sulfate 300 Mg/5 Ml Liquid) 300 mg PO TIDWM [facility] Last Admin: 10/02/22 12:30 Dose: Not Given Haloperidol Lactate (Haloperidol Lactate 5 Mg/Ml Vial) 10 mg IM ONCE PRN PRN Reason: Agitation in dialysis Last Admin: 09/15/22 11:20 Dose: 10 mg Midodrine (Midodrine Hcl 10 Mg Tablet) 10 mg PO TID [facility] Last Admin: 10/02/22 08:31 Dose: 10 mg Non-Formulary Medication (Thiothixene) 15 mg PO DAILY [facility] Last Admin: 10/02/22 08:31 Dose: 15 mg Olanzapine (Olanzapine 10 Mg Vial) 2.5 mg IM Q6H PRN PRN Reason: anxiety/restlessness Olanzapine (Olanzapine 10 Mg Vial) 10 mg IM BID PRN PRN Reason: Psychosis Last Admin: 09/29/22 13:25 Dose: 10 mg Ondansetron HCl (Ondansetron Hcl 4 Mg/2 Ml Vial) 4 mg IVPUSH Q8H PRN PRN Reason: Nausea and Vomiting Polyethylene Glycol (Polyethylene Glycol 3350 17 Gm Powd.Pack) 17 gm PO DAILY PRN PRN Reason: Constipation Last Admin: 09/26/22 16:27 Dose: 17 gm Allergies Allergies Allergy/AdvReac Type Severity Reaction Status Date / Time No Known Allergies Allergy Verified 09/06/22 09:01 Assessment & Plan Assessment & Plan (1) Schizoaffective disorder, bipolar type: Status: Acute Code(s): F25.0 - Schizoaffective disorder, bipolar type Assessment and Plan: 10/02/2022: No changes to current treatment plan. Eager to meet with team ref discharge planning (2) ESRD needing dialysis: Status: Acute Code(s): N18.6 - End stage renal disease; Z99.2 - Dependence on renal dialysis (3) ESRD (end stage renal disease): Status: Acute Code(s): N18.6 - End stage renal disease Plan ESRD. No overt signs or symptoms of uremia. Continue to dialyze at least 3 times a week. Anemia. Procrit Hyponatremia. Most likely due to decreased free water clearance induced by medications. Restrict oral free water intake to 1 L per 24 hours. Reason for continued inpatient stay Substantial Risk for: rapid decompensation Time Spent With Patient Time: Total time managing care of this patient today ____ minutes.
[2022-10-02 20:18] VITALS: BP 115/65; PULSE 77; RESP 20; TEMP 36.3; O2SAT 98
[2022-10-02] MEDS: Divalproex Sodium ER 500 MG TAB.ER.24H 1000 MG PO (21:33)
[2022-10-03 08:20] VITALS: BP 89/59; PULSE 81; RESP 20; TEMP 36.4; O2SAT 97
[2022-10-03] MEDS: ARIPiprazole 10 MG TABLET PO (08:25)
[2022-10-03] MEDS: Benztropine Mesylate 1 MG TABLET PO ×2 (08:25→20:04)
[2022-10-03] MEDS: Midodrine HCl 10 MG TABLET PO ×3 (08:26→20:03)
--- NOTE | 2022-10-03 13:31 | HO.PSYCHPN ---
Subjective Subjective Date of Service: 10/03/22 Reason For Visit: missed dialysis- psychosis bipolar Subjective Notes: Conditional Voluntary Interim History: The nursing staff reported the patient had been common and pleasant, cooperative. The dietary service aide has suggested to do fluid restriction talk 1000 cc per day. On interview the patient ask about discharge planning, we will discuss this with his his . Mental Status Exam Mental Status Exam Patient Appearance: Well Grooomed and Appropriate Patient Orientation: Person and Situation Level of Consciousness: Awake and Appropriate Patient Behavior: Appropriate and Passive Mood Description: Calm Affect Description: Constricted Patient Cognition Impaired: Yes Ability to Follow Directions: Good Speech Pattern: Clear Hallucinations: None Delusions: Not Present Thought Process: Distracted and Slowed Thinking Thought Content: positive for [place] and positive for Circumstantial Judgement: Fair Diagnostics Vital Signs (24Hr): Vital Signs - 24 hr 10/02/22 20:18 10/03/22 08:20 Temperature 97.4 F 97.5 F Pulse Rate 77 81 Respiratory Rate 20 20 Blood Pressure 115/65 89/59 L Pulse Oximetry 98 97 Oxygen Delivery Method Room Air Room Air BMI result Body Mass Index 26.1 Labs 09/27/22 09:43 09/27/22 09:43 Medications Medications Current Medications Acetaminophen (Acetaminophen 325 Mg Tablet) 650 mg PO Q6H PRN PRN Reason: Pain, Mild (Pain Scale 1-3) Aripiprazole (Aripiprazole 10 Mg Tablet) 10 mg PO DAILY [facility] Last Admin: 10/03/22 08:25 Dose: 10 mg Aspirin (Aspirin 81 Mg Tab.Chew) 81 mg PO DAILY [facility] Last Admin: 10/03/22 08:25 Dose: Not Given Benztropine Mesylate (Benztropine Mesylate 1 Mg Tablet) 1 mg PO BID [facility] Last Admin: 10/03/22 08:25 Dose: 1 mg Bisacodyl (Bisacodyl 5 Mg Tablet.Dr) 10 mg PO DAILY PRN PRN Reason: Constipation Last Admin: 09/26/22 09:18 Dose: 10 mg Divalproex Sodium (Divalproex Sodium Er 500 Mg Tab.Er.24h) 1,000 mg PO BEDTIME [facility] Last Admin: 10/02/22 21:33 Dose: 1,000 mg Docusate Sodium (Docusate Sodium 100 Mg Capsule) 100 mg PO DAILY PRN PRN Reason: Constipation Last Admin: 09/26/22 16:27 Dose: 100 mg Ferrous Sulfate (Ferrous Sulfate 300 Mg/5 Ml Liquid) 300 mg PO TIDWM [facility] Last Admin: 10/03/22 11:43 Dose: Not Given Haloperidol Lactate (Haloperidol Lactate 5 Mg/Ml Vial) 10 mg IM ONCE PRN PRN Reason: Agitation in dialysis Last Admin: 09/15/22 11:20 Dose: 10 mg Midodrine (Midodrine Hcl 10 Mg Tablet) 10 mg PO TID [facility] Last Admin: 10/03/22 08:26 Dose: 10 mg Non-Formulary Medication (Thiothixene) 15 mg PO DAILY [facility] Last Admin: 10/03/22 08:26 Dose: 15 mg Olanzapine (Olanzapine 10 Mg Vial) 2.5 mg IM Q6H PRN PRN Reason: anxiety/restlessness Olanzapine (Olanzapine 10 Mg Vial) 10 mg IM BID PRN PRN Reason: Psychosis Last Admin: 09/29/22 13:25 Dose: 10 mg Ondansetron HCl (Ondansetron Hcl 4 Mg/2 Ml Vial) 4 mg IVPUSH Q8H PRN PRN Reason: Nausea and Vomiting Polyethylene Glycol (Polyethylene Glycol 3350 17 Gm Powd.Pack) 17 gm PO DAILY PRN PRN Reason: Constipation Last Admin: 09/26/22 16:27 Dose: 17 gm Allergies Allergies Allergy/AdvReac Type Severity Reaction Status Date / Time No Known Allergies Allergy Verified 09/06/22 09:01 Assessment & Plan Assessment & Plan (1) Schizoaffective disorder, bipolar type: Status: Acute Code(s): F25.0 - Schizoaffective disorder, bipolar type Assessment and Plan: 10/02/2022: No changes to current treatment plan. Eager to meet with team ref discharge planning (2) ESRD needing dialysis: Status: Acute Code(s): N18.6 - End stage renal disease; Z99.2 - Dependence on renal dialysis (3) ESRD (end stage renal disease): Status: Acute Code(s): N18.6 - End stage renal disease Plan ESRD. No overt signs or symptoms of uremia. Continue to dialyze at least 3 times a week. Anemia. Procrit Hyponatremia. Most likely due to decreased free water clearance induced by medications. Restrict oral free water intake to 1 L per 24 hours. Reason for continued inpatient stay Substantial Risk for: inability to function, rapid decompensation and med/psych decompensation Time Spent With Patient Time: Total time managing care of this patient today __20__ minutes.
[2022-10-03 15:40] VITALS: BP 118/68; PULSE 67
[2022-10-03 20:00] VITALS: RESP 18
[2022-10-03] MEDS: Divalproex Sodium ER 500 MG TAB.ER.24H 1000 MG PO (20:03)
--- NOTE | 2022-10-03 22:43 | PC.NURSE ---
Marco is pleasant on approach, left AVF positive bruit/thrill, utilizing walker without problems.
[2022-10-04 08:05] VITALS: BP 109/59; PULSE 75; RESP 16; TEMP 36.2; O2SAT 97
[2022-10-04 12:26] VITALS: BP 94/54; PULSE 77; RESP 18; TEMP 36.2; O2SAT 97
[2022-10-04] MEDS: Midodrine HCl 10 MG TABLET PO ×3 (12:29→19:52)
[2022-10-04] MEDS: ARIPiprazole 10 MG TABLET PO (12:29)
[2022-10-04] MEDS: Benztropine Mesylate 1 MG TABLET PO ×2 (12:29→19:52)
--- NOTE | 2022-10-04 14:17 | HO.PSYCHPN ---
Subjective Subjective Date of Service: 10/04/22 Reason For Visit: missed dialysis- psychosis bipolar Subjective Notes: Conditional Voluntary Interim History: Pt reports doing well. His hygiene is good. He is smiling, looking forward to be discharged soon. He denies SI/HI. No physical concerns. Per nursing, pt sleeping through the night. Review of Systems Review of Systems Nothing acute Yes Unobtainable due to mental status Mental Status Exam Mental Status Exam Patient Appearance: Well Grooomed and Appropriate Patient Orientation: Person and Situation Level of Consciousness: Awake and Appropriate Patient Behavior: Appropriate and Passive Mood Description: Calm Affect Description: Constricted Patient Cognition Impaired: Yes Ability to Follow Directions: Good Speech Pattern: Clear Diagnostics Vital Signs (24Hr): Vital Signs - 24 hr 10/03/22 15:40 10/03/22 20:00 10/04/22 08:05 Temperature 97.1 F Pulse Rate 67 75 Respiratory Rate 18 16 Blood Pressure 118/68 109/59 L Pulse Oximetry 97 Oxygen Delivery Method Room Air 10/04/22 12:26 Temperature 97.2 F Pulse Rate 77 Respiratory Rate 18 Blood Pressure 94/54 L Pulse Oximetry 97 Oxygen Delivery Method Room Air BMI result Body Mass Index 26.1 Labs 09/27/22 09:43 09/27/22 09:43 Medications Medications Current Medications Acetaminophen (Acetaminophen 325 Mg Tablet) 650 mg PO Q6H PRN PRN Reason: Pain, Mild (Pain Scale 1-3) Aripiprazole (Aripiprazole 10 Mg Tablet) 10 mg PO DAILY [facility] Last Admin: 10/04/22 12:29 Dose: 10 mg Aspirin (Aspirin 81 Mg Tab.Chew) 81 mg PO BEDTIME [facility] Last Admin: 10/03/22 20:03 Dose: 81 mg Benztropine Mesylate (Benztropine Mesylate 1 Mg Tablet) 1 mg PO BID [facility] Last Admin: 10/04/22 12:29 Dose: 1 mg Bisacodyl (Bisacodyl 5 Mg Tablet.Dr) 10 mg PO DAILY PRN PRN Reason: Constipation Last Admin: 09/26/22 09:18 Dose: 10 mg Divalproex Sodium (Divalproex Sodium Er 500 Mg Tab.Er.24h) 1,000 mg PO BEDTIME [facility] Last Admin: 10/03/22 20:03 Dose: 1,000 mg Docusate Sodium (Docusate Sodium 100 Mg Capsule) 100 mg PO DAILY PRN PRN Reason: Constipation Last Admin: 09/26/22 16:27 Dose: 100 mg Ferrous Sulfate (Ferrous Sulfate 300 Mg/5 Ml Liquid) 300 mg PO TIDWM [facility] Last Admin: 10/04/22 12:52 Dose: Not Given Haloperidol Lactate (Haloperidol Lactate 5 Mg/Ml Vial) 10 mg IM ONCE PRN PRN Reason: Agitation in dialysis Last Admin: 09/15/22 11:20 Dose: 10 mg Midodrine (Midodrine Hcl 10 Mg Tablet) 10 mg PO TID [facility] Last Admin: 10/04/22 12:29 Dose: 10 mg Non-Formulary Medication (Thiothixene) 15 mg PO DAILY [facility] Last Admin: 10/04/22 12:29 Dose: 15 mg Olanzapine (Olanzapine 10 Mg Vial) 2.5 mg IM Q6H PRN PRN Reason: anxiety/restlessness Olanzapine (Olanzapine 10 Mg Vial) 10 mg IM BID PRN PRN Reason: Psychosis Last Admin: 09/29/22 13:25 Dose: 10 mg Ondansetron HCl (Ondansetron Hcl 4 Mg/2 Ml Vial) 4 mg IVPUSH Q8H PRN PRN Reason: Nausea and Vomiting Polyethylene Glycol (Polyethylene Glycol 3350 17 Gm Powd.Pack) 17 gm PO DAILY PRN PRN Reason: Constipation Last Admin: 09/26/22 16:27 Dose: 17 gm Allergies Allergies Allergy/AdvReac Type Severity Reaction Status Date / Time No Known Allergies Allergy Verified 09/06/22 09:01 Assessment & Plan Assessment & Plan (1) Schizoaffective disorder, bipolar type: Status: Acute Code(s): F25.0 - Schizoaffective disorder, bipolar type Assessment and Plan: 10/02/2022: No changes to current treatment plan. Eager to meet with team ref discharge planning (2) ESRD needing dialysis: Status: Acute Code(s): N18.6 - End stage renal disease; Z99.2 - Dependence on renal dialysis (3) ESRD (end stage renal disease): Status: Acute Code(s): N18.6 - End stage renal disease Plan ESRD. No overt signs or symptoms of uremia. Continue to dialyze at least 3 times a week. Anemia. Procrit Hyponatremia. Most likely due to decreased free water clearance induced by medications. Restrict oral free water intake to 1 L per 24 hours. 10/04 continue tx. Reason for continued inpatient stay Substantial Risk for: stable for discharge Time Spent With Patient Time: Total time managing care of this patient today ____ minutes.
--- NOTE | 2022-10-04 14:31 | W.PM.DNNEP ---
Subjective Subjective This patient was seen during dialysis. Physical Exam Vital Signs: Vital Signs: Last Vital Signs Temp 97.2 F 10/04/22 12:26 Pulse 77 10/04/22 12:26 Resp 18 10/04/22 12:26 BP 94/54 L 10/04/22 12:26 Pulse Ox 97 10/04/22 12:26 O2 Del Method Room Air 10/04/22 12:26 BMI result Body Mass Index 26.1 Comfortable Neck is supple Lung: Air entry equal Heart: S1,S2, normal. No rub Abd: Soft. BS + NS : Alert.No asterexis Ext: No edema Assessment & Plan Assessment and plan (1) Schizoaffective disorder, bipolar type: Status: Acute (2) ESRD needing dialysis: Status: Acute (3) ESRD (end stage renal disease): Status: Acute Plan ESRD. No overt signs or symptoms of uremia. Continue to dialyze at least 3 times a week. Anemia. Procrit Hyponatremia. Most likely due to decreased free water clearance induced by medications. Restrict oral free water intake to 1 L per 24 hours. Time Spent With Patient Time: Total time managing care of this patient today ____ minutes. Procedures Date of Service Date of Service: 10/04/22
[2022-10-04 15:06] VITALS: BP 112/76; PULSE 73; O2SAT 98
[2022-10-04 18:00] VITALS: BP 116/65; PULSE 83; RESP 18; TEMP 36.1; O2SAT 99
[2022-10-04] MEDS: Divalproex Sodium ER 500 MG TAB.ER.24H 1000 MG PO (19:52)
[2022-10-05 07:50] VITALS: BP 110/60; PULSE 78; RESP 18; TEMP 36.7; O2SAT 99
[2022-10-05] MEDS: Benztropine Mesylate 1 MG TABLET PO ×2 (09:07→20:10)
[2022-10-05] MEDS: ARIPiprazole 10 MG TABLET PO (09:07)
[2022-10-05] MEDS: Midodrine HCl 10 MG TABLET PO ×3 (09:07→20:19)
--- NOTE | 2022-10-05 11:42 | HO.PSYCHPN ---
Subjective Subjective Date of Service: 10/05/22 Reason For Visit: missed dialysis- psychosis bipolar Subjective Notes: Conditional Voluntary Interim History: The nursing staff reported the patient slept 7 hours, he is more awake and alert, the occupational therapist reported that he had been more cooperative and even conversational. Tomorrow we will have dialysis and I am ordering blood work before the procedure. On interview the patient reports that he is feeling better no side effects with Abilify Mental Status Exam Mental Status Exam Patient Appearance: Well Grooomed and Appropriate Patient Orientation: Person and Situation Level of Consciousness: Awake and Appropriate Patient Behavior: Guarded and Passive Mood Description: Calm Affect Description: Constricted Patient Cognition Impaired: Yes Ability to Follow Directions: Good Speech Pattern: Clear Hallucinations: None Delusions: Not Present Thought Process: Linear Thought Content: positive for Circumstantial Judgement: Fair Diagnostics Vital Signs (24Hr): Vital Signs - 24 hr 10/04/22 12:26 10/04/22 15:06 10/04/22 18:00 Temperature 97.2 F 96.9 F Pulse Rate 77 73 83 Respiratory Rate 18 18 Blood Pressure 94/54 L 112/76 116/65 Pulse Oximetry 97 98 99 Oxygen Delivery Method Room Air Room Air Room Air 10/05/22 07:50 Temperature 98.0 F Pulse Rate 78 Respiratory Rate 18 Blood Pressure 110/60 Pulse Oximetry 99 Oxygen Delivery Method Room Air BMI result Body Mass Index 26.1 Labs 09/27/22 09:43 09/27/22 09:43 Medications Medications Current Medications Acetaminophen (Acetaminophen 325 Mg Tablet) 650 mg PO Q6H PRN PRN Reason: Pain, Mild (Pain Scale 1-3) Aripiprazole (Aripiprazole 10 Mg Tablet) 10 mg PO DAILY [facility] Last Admin: 10/05/22 09:07 Dose: 10 mg Aspirin (Aspirin 81 Mg Tab.Chew) 81 mg PO BEDTIME [facility] Last Admin: 10/04/22 19:52 Dose: 81 mg Benztropine Mesylate (Benztropine Mesylate 1 Mg Tablet) 1 mg PO BID [facility] Last Admin: 10/05/22 09:07 Dose: 1 mg Bisacodyl (Bisacodyl 5 Mg Tablet.Dr) 10 mg PO DAILY PRN PRN Reason: Constipation Last Admin: 09/26/22 09:18 Dose: 10 mg Divalproex Sodium (Divalproex Sodium Er 500 Mg Tab.Er.24h) 1,000 mg PO BEDTIME [facility] Last Admin: 10/04/22 19:52 Dose: 1,000 mg Docusate Sodium (Docusate Sodium 100 Mg Capsule) 100 mg PO DAILY PRN PRN Reason: Constipation Last Admin: 09/26/22 16:27 Dose: 100 mg Ferrous Sulfate (Ferrous Sulfate 300 Mg/5 Ml Liquid) 300 mg PO TIDWM [facility] Last Admin: 10/05/22 09:13 Dose: Not Given Haloperidol Lactate (Haloperidol Lactate 5 Mg/Ml Vial) 10 mg IM ONCE PRN PRN Reason: Agitation in dialysis Last Admin: 09/15/22 11:20 Dose: 10 mg Midodrine (Midodrine Hcl 10 Mg Tablet) 10 mg PO TID [facility] Last Admin: 10/05/22 09:07 Dose: 10 mg Non-Formulary Medication (Thiothixene) 15 mg PO DAILY [facility] Last Admin: 10/05/22 09:07 Dose: 15 mg Olanzapine (Olanzapine 10 Mg Vial) 2.5 mg IM Q6H PRN PRN Reason: anxiety/restlessness Olanzapine (Olanzapine 10 Mg Vial) 10 mg IM BID PRN PRN Reason: Psychosis Last Admin: 09/29/22 13:25 Dose: 10 mg Ondansetron HCl (Ondansetron Hcl 4 Mg/2 Ml Vial) 4 mg IVPUSH Q8H PRN PRN Reason: Nausea and Vomiting Polyethylene Glycol (Polyethylene Glycol 3350 17 Gm Powd.Pack) 17 gm PO DAILY PRN PRN Reason: Constipation Last Admin: 09/26/22 16:27 Dose: 17 gm Allergies Allergies Allergy/AdvReac Type Severity Reaction Status Date / Time No Known Allergies Allergy Verified 09/06/22 09:01 Assessment & Plan Assessment & Plan (1) Schizoaffective disorder, bipolar type: Status: Acute Code(s): F25.0 - Schizoaffective disorder, bipolar type (2) ESRD needing dialysis: Status: Acute Code(s): N18.6 - End stage renal disease; Z99.2 - Dependence on renal dialysis (3) ESRD (end stage renal disease): Status: Acute Code(s): N18.6 - End stage renal disease Plan ESRD. No overt signs or symptoms of uremia. Continue to dialyze at least 3 times a week. Anemia. Procrit Hyponatremia. Most likely due to decreased free water clearance induced by medications. Restrict oral free water intake to 1 L per 24 hours. Plan 1. Continue with Abilify 10 mg p.o. daily to target psychosis and mood lability. 2. Continue with medical treatment. 3. Depakote level, basic metabolic panel LFTs TSH and other labs for tomorrow morning Reason for continued inpatient stay Substantial Risk for: inability to function, rapid decompensation and med/psych decompensation Time Spent With Patient Time: Total time managing care of this patient today __20__ minutes.
[2022-10-05] MEDS: Divalproex Sodium ER 500 MG TAB.ER.24H 1000 MG PO (20:09)
[2022-10-05 20:19] VITALS: BP 115/70; PULSE 70; RESP 18; TEMP 36.2; O2SAT 98
[2022-10-06 07:41] LABS: MANUAL DIFF FLAG NO
[2022-10-06 07:44] LABS: Basophils Percent Auto 1.3 % (0-2); Eosinophils Absolute Auto 0.1 X10*3/uL (0.0-0.4); Eosinophils Percent Auto 2.2 % (0-4); Imm Gran Abs Auto 0.01 X10*3/uL (0.00-0.03); Imm Gran Pct Auto 0.3 % (0.0-0.4); Lymphocytes Absolute Auto 0.8 X10*3/uL (1.2-4.9); Lymphocytes Percent Auto 25.6 % (20-40); Mean Corpuscular HGB Conc 33.3 g/dl (31.0-36.0); Mean Corpuscular Hemoglobin 34.5 pg (27.0-33.0); Mean Corpuscular Volume 103.4 fL (80.0-98.0); Mean Platelet Volume 10.2 fL (9.4-12.4); Monocytes Absolute Auto 0.5 X10*3/uL (0.1-1.2); Monocytes Percent Auto 15.7 % (2-11); Neutrophils Absolute Auto 1.7 x10*3/uL (2.0-8.3); Neutrophils Percent Auto 54.9 % (45-73); Platelet Count 132 X10*3/uL (160-400); Red Blood Count 2.32 X10*6/uL (4.60-5.80); Red Cell Distribution Width 12.9 % (11.0-16.0); White Blood Count 3.1 X10*3/uL (4.8-10.8)
[2022-10-06 08:00] VITALS: BP 111/56; PULSE 74; RESP 20; TEMP 36.5; O2SAT 98
[2022-10-06 08:09] LABS: Valproate 69.2 mcg/mL (50.0-100.0)
[2022-10-06 08:14] LABS: Estimated Average Glucose 85 mg/dL; Hemoglobin A1c % 4.6 %
[2022-10-06 08:27] LABS: Alanine Aminotransferase < 5 U/L (0-40); Albumin Level 3.3 g/dL (3.5-5.0); Alkaline Phosphatase 48 U/L (39-117); Anion Gap 18 (12-20); Aspartate Amino Transferase 6 U/L (5-37); Bilirubin Direct 0.1 mg/dL (0.0-0.5); Bilirubin Total 0.6 mg/dL (0.0-1.0); Blood Urea Nitrogen 42 mg/dL (9-16); Calcium 9.4 mg/dL (8.4-10.2); Chloride 103 mmol/L (96-108); Creatinine Clr Calc Pharmacy 7.1; Estimated Glomerular Filt Rate 5; Glucose Random 75 mg/dL (60-115); Potassium 4.8 mmol/L (3.3-5.1); Sodium 136 mmol/L (135-145); Total Protein 5.4 g/dL (6.5-8.0)
[2022-10-06 08:35] LABS: Thyroid Stimulating Hormone 1.38 uIU/mL (0.32-4.0)
[2022-10-06 09:39] LABS: Carbon Dioxide 20 mmol/L (22-29)
--- NOTE | 2022-10-06 10:41 | HO.PSYCHPN ---
Subjective Subjective Date of Service: 10/06/22 Reason For Visit: missed dialysis- psychosis bipolar Subjective Notes: Conditional Voluntary (My affirmed healthcare proxy) Interim History: The nursing staff reported that his affect him being brighter, he has been pleasant, cooperative eating and sleeping better. The social secretary will meet tomorrow with the to discuss discharge planning most likely early next week. On interview the patient reported he had been tired since he came back from dialysis. Blood work came back with chronic abnormalities no change in his mental status. Depakote level was therapeutic. Mental Status Exam Mental Status Exam Patient Appearance: Well Grooomed and Appropriate Patient Orientation: Person and Situation Level of Consciousness: Awake and Appropriate Patient Behavior: Guarded and Passive Mood Description: Calm Affect Description: Constricted Patient Cognition Impaired: Yes Ability to Follow Directions: Good Speech Pattern: Clear Hallucinations: None Delusions: Not Present Thought Process: Distracted and Slowed Thinking Thought Content: positive for [place] and positive for [place] of Content Judgement: Fair Diagnostics Vital Signs (24Hr): Vital Signs - 24 hr 10/05/22 20:19 Temperature 97.1 F Pulse Rate 70 Respiratory Rate 18 Blood Pressure 115/70 Pulse Oximetry 98 Oxygen Delivery Method Room Air BMI result Body Mass Index 26.1 Labs 10/06/22 07:19 10/06/22 07:19 Labs: Laboratory Results - last 48 hr 10/06/22 10/06/22 10/06/22 07:19 07:19 07:19 WBC 3.1 L RBC 2.32 L Hgb 8.0 L Hct 24.0 L MCV 103.4 H MCH 34.5 H MCHC 33.3 RDW 12.9 Plt Count 132 L MPV 10.2 Immature Gran % (Auto) 0.3 Neut % (Auto) 54.9 Lymph % (Auto) 25.6 [place] % (Auto) 15.7 H Eos % (Auto) 2.2 Baso % (Auto) 1.3 Lymph # (Auto) 0.8 L [place] # (Auto) 0.5 Eos # (Auto) 0.1 Baso # (Auto) 0.0 Abs Immat Gran (auto) 0.01 Absolute Neuts (auto) 1.7 L Absolute Nucleated RBC 0.000 Nucleated RBC % (auto) 0.0 Sodium 136 Potassium 4.8 D Chloride 103 Carbon Dioxide 20 L Anion Gap 18 BUN 42 H Creatinine 10.73 H* Estim Creat Clear Calc 7.1 Estimated GFR 5 Random Glucose 75 Estimat Average Glucose 85 Hemoglobin A1c % 4.6 Calcium 9.4 D Total Bilirubin 0.6 Direct Bilirubin 0.1 AST 6 ALT < 5 Alkaline Phosphatase 48 Total Protein 5.4 L Albumin 3.3 L TSH 1.38 Valproic Acid 10/06/22 07:19 WBC RBC Hgb Hct MCV MCH MCHC RDW Plt Count MPV Immature Gran % (Auto) Neut % (Auto) Lymph % (Auto) [place] % (Auto) Eos % (Auto) Baso % (Auto) Lymph # (Auto) [place] # (Auto) Eos # (Auto) Baso # (Auto) Abs Immat Gran (auto) Absolute Neuts (auto) Absolute Nucleated RBC Nucleated RBC % (auto) Sodium Potassium Chloride Carbon Dioxide Anion Gap BUN Creatinine Estim Creat Clear Calc Estimated GFR Random Glucose Estimat Average Glucose Hemoglobin A1c % Calcium Total Bilirubin Direct Bilirubin AST ALT Alkaline Phosphatase Total Protein Albumin TSH Valproic Acid 69.2 Medications Medications Current Medications Acetaminophen (Acetaminophen 325 Mg Tablet) 650 mg PO Q6H PRN PRN Reason: Pain, Mild (Pain Scale 1-3) Aripiprazole (Aripiprazole 10 Mg Tablet) 10 mg PO DAILY [facility] Last Admin: 10/05/22 09:07 Dose: 10 mg Aspirin (Aspirin 81 Mg Tab.Chew) 81 mg PO BEDTIME [facility] Last Admin: 10/05/22 20:10 Dose: 81 mg Benztropine Mesylate (Benztropine Mesylate 1 Mg Tablet) 1 mg PO BID [facility] Last Admin: 10/05/22 20:10 Dose: 1 mg Bisacodyl (Bisacodyl 5 Mg Tablet.Dr) 10 mg PO DAILY PRN PRN Reason: Constipation Last Admin: 09/26/22 09:18 Dose: 10 mg Divalproex Sodium (Divalproex Sodium Er 500 Mg Tab.Er.24h) 1,000 mg PO BEDTIME [facility] Last Admin: 10/05/22 20:09 Dose: 1,000 mg Docusate Sodium (Docusate Sodium 100 Mg Capsule) 100 mg PO DAILY PRN PRN Reason: Constipation Last Admin: 09/26/22 16:27 Dose: 100 mg Ferrous Sulfate (Ferrous Sulfate 300 Mg/5 Ml Liquid) 300 mg PO TIDWM [facility] Last Admin: 10/05/22 17:15 Dose: Not Given Haloperidol Lactate (Haloperidol Lactate 5 Mg/Ml Vial) 10 mg IM ONCE PRN PRN Reason: Agitation in dialysis Last Admin: 09/15/22 11:20 Dose: 10 mg Midodrine (Midodrine Hcl 10 Mg Tablet) 10 mg PO TID [facility] Last Admin: 10/05/22 20:19 Dose: 10 mg Non-Formulary Medication (Thiothixene) 15 mg PO DAILY [facility] Last Admin: 10/05/22 09:07 Dose: 15 mg Olanzapine (Olanzapine 10 Mg Vial) 2.5 mg IM Q6H PRN PRN Reason: anxiety/restlessness Olanzapine (Olanzapine 10 Mg Vial) 10 mg IM BID PRN PRN Reason: Psychosis Last Admin: 09/29/22 13:25 Dose: 10 mg Ondansetron HCl (Ondansetron Hcl 4 Mg/2 Ml Vial) 4 mg IVPUSH Q8H PRN PRN Reason: Nausea and Vomiting Polyethylene Glycol (Polyethylene Glycol 3350 17 Gm Powd.Pack) 17 gm PO DAILY PRN PRN Reason: Constipation Last Admin: 09/26/22 16:27 Dose: 17 gm Allergies Allergies Allergy/AdvReac Type Severity Reaction Status Date / Time No Known Allergies Allergy Verified 09/06/22 09:01 Assessment & Plan Assessment & Plan (1) Schizoaffective disorder, bipolar type: Status: Acute Code(s): F25.0 - Schizoaffective disorder, bipolar type (2) ESRD needing dialysis: Status: Acute Code(s): N18.6 - End stage renal disease; Z99.2 - Dependence on renal dialysis (3) ESRD (end stage renal disease): Status: Acute Code(s): N18.6 - End stage renal disease Plan ESRD. No overt signs or symptoms of uremia. Continue to dialyze at least 3 times a week. Anemia. Procrit Hyponatremia. Most likely due to decreased free water clearance induced by medications. Restrict oral free water intake to 1 L per 24 hours. Plan 1. Continue with Abilify 10 mg p.o. daily to target psychosis and mood lability. 2. Continue with medical treatment. 3. Depakote level, basic metabolic panel LFTs TSH and other labs for today came back with chronic abnormalities. Depakote level on a therapeutic range. 4. Family meeting tomorrow for discharge planning Reason for continued inpatient stay Substantial Risk for: inability to function, rapid decompensation and med/psych decompensation Time Spent With Patient Time: Total time managing care of this patient today __20__ minutes.
[2022-10-06 12:50] VITALS: BP 113/56; PULSE 86; RESP 20; TEMP 36.2; O2SAT 98
[2022-10-06] MEDS: Benztropine Mesylate 1 MG TABLET PO ×2 (12:53→21:05)
[2022-10-06] MEDS: ARIPiprazole 10 MG TABLET PO (12:53)
[2022-10-06 13:29] VITALS: BMI 25.7
[2022-10-06] MEDS: Midodrine HCl 10 MG TABLET PO ×2 (14:28→21:05)
[2022-10-06 18:00] VITALS: BP 145/85; PULSE 75; RESP 18; TEMP 36.4; O2SAT 100
[2022-10-06] MEDS: Divalproex Sodium ER 500 MG TAB.ER.24H 1000 MG PO (21:05)
--- NOTE | 2022-10-07 04:12 | MHC.MBSS ---
Patient is alert and oriented. Engages in conversation and in Milieu at start of shift. Ambulating to bed shortly afterwards and slept through the night. Independent in ADL's. Tremulous hands. Speech is clear. Patients called tonight concerned about patient appearing depressed today. Patient was pleasant, calm, cooperative this evening. Patients states that he could have been tired from dialysis today. Schizoaffective disorder, bipolar type (09/13/22) End stage renal disease (09/13/22) Dependence on renal dialysis (09/13/22)
[2022-10-07 06:00] VITALS: BP 108/68; PULSE 75; RESP 16; TEMP 36.4; O2SAT 92
[2022-10-07] MEDS: ARIPiprazole 10 MG TABLET PO (10:07)
[2022-10-07] MEDS: Midodrine HCl 10 MG TABLET PO ×3 (10:07→21:07)
[2022-10-07] MEDS: Benztropine Mesylate 1 MG TABLET PO ×2 (10:07→21:06)
--- NOTE | 2022-10-07 13:19 | MHC.CLN ---
F/U CONTINUES WITH HEMODIALYSIS THREE TIMES WEEKLY. DIET LIBERALIZED TO REGULAR DUE TO HISTORY OF POOR PO. ENSURE BID PROVIDES ADDITIONAL 700 KCALS, 40 G PROTEIN. CURRENT INTAKE APPEARS GOOD. DIET=REGULAR, ENSURE BID, 1000 ML FLUID RESTRICTION. FOLLOW FOR INTAKE, DIALYSIS, AND LABS. CONTINUE CURRENT DIET AND SUPPLEMENT. RD TO FOLLOW WEEKLY.
--- NOTE | 2022-10-07 15:11 | HO.PSYCHPN ---
Subjective Subjective Date of Service: 10/07/22 Reason For Visit: missed dialysis- psychosis bipolar Subjective Notes: Conditional Voluntary Interim History: The nursing staff reported patient had been compliant with treatment he looks more awake and alert. Today we had a family meeting with his and discussed discharge planning, the patient is doing much better and he is going to be discharged tomorrow after dialysis. Compliance with treatment was reinforced with the patient. Mental Status Exam Mental Status Exam Patient Appearance: Well Grooomed and Appropriate Patient Orientation: Person and Situation Level of Consciousness: Awake and Appropriate Patient Behavior: Guarded and Passive Mood Description: Calm Affect Description: Constricted Patient Cognition Impaired: Yes Ability to Follow Directions: Good Speech Pattern: Clear Hallucinations: None Delusions: Not Present Thought Process: Linear Thought Content: positive for [place] and positive for Circumstantial Judgement: Fair Diagnostics Vital Signs (24Hr): Vital Signs - 24 hr 10/06/22 18:00 10/07/22 06:00 Temperature 97.6 F 97.6 F Pulse Rate 75 75 Respiratory Rate 18 16 Blood Pressure 145/85 H 108/68 Pulse Oximetry 100 92 Oxygen Delivery Method Room Air Room Air BMI result Body Mass Index 25.7 Labs 10/06/22 07:19 10/06/22 07:19 Labs: Laboratory Results - last 48 hr 10/06/22 10/06/22 10/06/22 07:19 07:19 07:19 WBC 3.1 L RBC 2.32 L Hgb 8.0 L Hct 24.0 L MCV 103.4 H MCH 34.5 H MCHC 33.3 RDW 12.9 Plt Count 132 L MPV 10.2 Immature Gran % (Auto) 0.3 Neut % (Auto) 54.9 Lymph % (Auto) 25.6 [place] % (Auto) 15.7 H Eos % (Auto) 2.2 Baso % (Auto) 1.3 Lymph # (Auto) 0.8 L [place] # (Auto) 0.5 Eos # (Auto) 0.1 Baso # (Auto) 0.0 Abs Immat Gran (auto) 0.01 Absolute Neuts (auto) 1.7 L Absolute Nucleated RBC 0.000 Nucleated RBC % (auto) 0.0 Sodium 136 Potassium 4.8 D Chloride 103 Carbon Dioxide 20 L Anion Gap 18 BUN 42 H Creatinine 10.73 H* Estim Creat Clear Calc 7.1 Estimated GFR 5 Random Glucose 75 Estimat Average Glucose 85 Hemoglobin A1c % 4.6 Calcium 9.4 D Total Bilirubin 0.6 Direct Bilirubin 0.1 AST 6 ALT < 5 Alkaline Phosphatase 48 Total Protein 5.4 L Albumin 3.3 L TSH 1.38 Valproic Acid 10/06/22 07:19 WBC RBC Hgb Hct MCV MCH MCHC RDW Plt Count MPV Immature Gran % (Auto) Neut % (Auto) Lymph % (Auto) [place] % (Auto) Eos % (Auto) Baso % (Auto) Lymph # (Auto) [place] # (Auto) Eos # (Auto) Baso # (Auto) Abs Immat Gran (auto) Absolute Neuts (auto) Absolute Nucleated RBC Nucleated RBC % (auto) Sodium Potassium Chloride Carbon Dioxide Anion Gap BUN Creatinine Estim Creat Clear Calc Estimated GFR Random Glucose Estimat Average Glucose Hemoglobin A1c % Calcium Total Bilirubin Direct Bilirubin AST ALT Alkaline Phosphatase Total Protein Albumin TSH Valproic Acid 69.2 Medications Medications Current Medications Acetaminophen (Acetaminophen 325 Mg Tablet) 650 mg PO Q6H PRN PRN Reason: Pain, Mild (Pain Scale 1-3) Aripiprazole (Aripiprazole 10 Mg Tablet) 10 mg PO DAILY [facility] Last Admin: 10/07/22 10:07 Dose: 10 mg Aspirin (Aspirin 81 Mg Tab.Chew) 81 mg PO BEDTIME [facility] Last Admin: 10/06/22 21:05 Dose: 81 mg Benztropine Mesylate (Benztropine Mesylate 1 Mg Tablet) 1 mg PO BID [facility] Last Admin: 10/07/22 10:07 Dose: 1 mg Bisacodyl (Bisacodyl 5 Mg Tablet.Dr) 10 mg PO DAILY PRN PRN Reason: Constipation Last Admin: 09/26/22 09:18 Dose: 10 mg Divalproex Sodium (Divalproex Sodium Er 500 Mg Tab.Er.24h) 1,000 mg PO BEDTIME [facility] Last Admin: 10/06/22 21:05 Dose: 1,000 mg Docusate Sodium (Docusate Sodium 100 Mg Capsule) 100 mg PO DAILY PRN PRN Reason: Constipation Last Admin: 09/26/22 16:27 Dose: 100 mg Ferrous Sulfate (Ferrous Sulfate 300 Mg/5 Ml Liquid) 300 mg PO TIDWM [facility] Last Admin: 10/07/22 14:35 Dose: Not Given Haloperidol Lactate (Haloperidol Lactate 5 Mg/Ml Vial) 10 mg IM ONCE PRN PRN Reason: Agitation in dialysis Last Admin: 09/15/22 11:20 Dose: 10 mg Midodrine (Midodrine Hcl 10 Mg Tablet) 10 mg PO TID [facility] Last Admin: 10/07/22 14:35 Dose: 10 mg Non-Formulary Medication (Thiothixene) 15 mg PO DAILY [facility] Last Admin: 10/07/22 10:07 Dose: 15 mg Olanzapine (Olanzapine 10 Mg Vial) 2.5 mg IM Q6H PRN PRN Reason: anxiety/restlessness Olanzapine (Olanzapine 10 Mg Vial) 10 mg IM BID PRN PRN Reason: Psychosis Last Admin: 09/29/22 13:25 Dose: 10 mg Ondansetron HCl (Ondansetron Hcl 4 Mg/2 Ml Vial) 4 mg IVPUSH Q8H PRN PRN Reason: Nausea and Vomiting Polyethylene Glycol (Polyethylene Glycol 3350 17 Gm Powd.Pack) 17 gm PO DAILY PRN PRN Reason: Constipation Last Admin: 09/26/22 16:27 Dose: 17 gm Allergies Allergies Allergy/AdvReac Type Severity Reaction Status Date / Time No Known Allergies Allergy Verified 09/06/22 09:01 Assessment & Plan Assessment & Plan (1) Schizoaffective disorder, bipolar type: Status: Acute Code(s): F25.0 - Schizoaffective disorder, bipolar type (2) ESRD needing dialysis: Status: Acute Code(s): N18.6 - End stage renal disease; Z99.2 - Dependence on renal dialysis (3) ESRD (end stage renal disease): Status: Acute Code(s): N18.6 - End stage renal disease Plan ESRD. No overt signs or symptoms of uremia. Continue to dialyze at least 3 times a week. Anemia. Procrit Hyponatremia. Most likely due to decreased free water clearance induced by medications. Restrict oral free water intake to 1 L per 24 hours. Plan 1. Continue with Abilify 10 mg p.o. daily to target psychosis and mood lability. 2. Continue with medical treatment. 3. Depakote level, basic metabolic panel LFTs TSH and other labs for today came back with chronic abnormalities. Depakote level on a therapeutic range. 4. Family meeting today for discharge planning Reason for continued inpatient stay Substantial Risk for: inability to function, rapid decompensation and med/psych decompensation Time Spent With Patient Time: Total time managing care of this patient today ___20_ minutes.
--- NOTE | 2022-10-07 15:13 | PM.PSYDC ---
DS: Providers Provider Date of Service: 10/07/22 Date of admission: 09/13/22 17:46 Date of discharge: 10/08/22 Primary care physician: Unknown Physician Consults: 09/13/22 17:41 Consult to Nephrology Routine Consulting Provider: Bradley Pena Reason for consultation: ESKD on HD M/W/F, missed last 2 sessions DS: Diagnosis Discharge Diagnosis (1) Schizoaffective disorder, bipolar type: Status: Acute (2) ESRD needing dialysis: Status: Acute (3) ESRD (end stage renal disease): Status: Acute DS: Medications Discharge Medications Home Medications: Previous Rx's Medication Instructions Recorded aspirin 81 mg tablet,delayed 81 mg PO DAILY 30 days #30 tabs 03/18/22 release benztropine 1 mg tablet 1 mg PO BID 30 days #60 tabs 08/25/22 divalproex 500 mg tablet,extended 1,000 mg PO BEDTIME 30 days #60 08/25/22 release 24 hr tabs ferric citrate 210 mg iron tablet 210 mg PO TID #90 tabs 08/25/22 thiothixene 5 mg capsule 15 mg PO DAILY 30 days #90 caps 08/25/22 acetaminophen 325 mg tablet 650 mg PO Q6H PRN Pain, Mild (Pain 09/13/22 Scale 1-3) #1 tab olanzapine 10 mg disintegrating 15 mg translingual BEDTIME #1 tab 09/13/22 tablet thiothixene 5 mg capsule 15 mg PO DAILY #1 cap 09/13/22 Mental Status Exam Mental Status Exam Patient Appearance: Well Grooomed and Appropriate Patient Orientation: Person and Situation Level of Consciousness: Awake and Appropriate Patient Behavior: Guarded and Passive Mood Description: Withdrawn Affect Description: Constricted Patient Cognition Impaired: Yes Ability to Follow Directions: Good Speech Pattern: Clear Hallucinations: None Delusions: Not Present Thought Process: Distracted and Linear Thought Content: positive for [place] and positive for Circumstantial Judgement: Fair Data Data Completed and Pending Completed studies during hospitalization [Text1]: 10/06/22 10/06/22 10/06/22 07:19 07:19 07:19 WBC 3.1 L RBC 2.32 L Hgb 8.0 L Hct 24.0 L MCV 103.4 H MCH 34.5 H MCHC 33.3 RDW 12.9 Plt Count 132 L MPV 10.2 Immature Gran % (Auto) 0.3 Neut % (Auto) 54.9 Lymph % (Auto) 25.6 [place] % (Auto) 15.7 H Eos % (Auto) 2.2 Baso % (Auto) 1.3 Lymph # (Auto) 0.8 L [place] # (Auto) 0.5 Eos # (Auto) 0.1 Baso # (Auto) 0.0 Abs Immat Gran (auto) 0.01 Absolute Neuts (auto) 1.7 L Absolute Nucleated RBC 0.000 Nucleated RBC % (auto) 0.0 Sodium 136 Potassium 4.8 D Chloride 103 Carbon Dioxide 20 L Anion Gap 18 BUN 42 H Creatinine 10.73 H* Estim Creat Clear Calc 7.1 Estimated GFR 5 Random Glucose 75 Estimat Average Glucose 85 Hemoglobin A1c % 4.6 Calcium 9.4 D Total Bilirubin 0.6 Direct Bilirubin 0.1 AST 6 ALT < 5 Alkaline Phosphatase 48 Total Protein 5.4 L Albumin 3.3 L TSH 1.38 Valproic Acid 10/06/22 07:19 WBC RBC Hgb Hct MCV MCH MCHC RDW Plt Count MPV Immature Gran % (Auto) Neut % (Auto) Lymph % (Auto) [place] % (Auto) Eos % (Auto) Baso % (Auto) Lymph # (Auto) [place] # (Auto) Eos # (Auto) Baso # (Auto) Abs Immat Gran (auto) Absolute Neuts (auto) Absolute Nucleated RBC Nucleated RBC % (auto) Sodium Potassium Chloride Carbon Dioxide Anion Gap BUN Creatinine Estim Creat Clear Calc Estimated GFR Random Glucose Estimat Average Glucose Hemoglobin A1c % Calcium Total Bilirubin Direct Bilirubin AST ALT Alkaline Phosphatase Total Protein Albumin TSH Valproic Acid 69.2 DS: Summary Hospital Course Hospital Course: The patient is a 67-year-old male with a past history of bipolar disorder and chronic renal disease on dialysis. He was transfer back from the medical unit after he refused dialysis and psychiatric treatment. Please see the HPI note of the admission note for further details. The patient initially was not cooperative with care and we needed to affirmed his healthcare proxy on court. His wanted him to be treated medically and psychiatrically. Initially, we started on Zyprexa titrated up to 10 mg p.o. b.i.d. to target psychosis. Historically he responded fairly well to his lindy with Zyprexa. We did a full trial but unfortunately his lindy did not improve he was just sedated. The patient was compliant with dialysis and medical treatment. We discussed at length risks, benefits, side-effects and alternatives and we discontinue Zyprexa and started the Abilify titrated up to 10 mg p.o. daily. The patient was fully compliant with treatment, his main improved and he was logical and goal oriented. Since he has psychiatric conditions improved discharge planning was discussed. Time spent discussing smoking cessation with patient: 3 to 10 minutes Status at Discharge Cognitive/behavioral status at discharge: At baseline Functional status at discharge: independent ambulation Overall status at discharge: patient is back to baseline Time Spent with Patient Time attestation: Total time managing care of this patient today _30___ minutes. Time spent: Less than 30 minutes Discharge Plan Discharge Anticipated Discharge Date/Time: 10/08/22 16:24 Patient Disposition: Home, Self-Care Discharge Diagnosis: Bipolar disorder type 1 most recent episode mixed. End-stage renal disease on dialysis Referrals: [facility] [Other] - 10/10/22 5:15 am (Your dialysis will resume Monday10/10/22 with [facility]. Please arrive at Dialysis at 5:15am on 10/10/22. Your schedule for dialysis is Monday, Monday and Monday. If you are in need of transportation please call [phone] 72 hours ahead of time for dial a ride at [facility]. Your medical social worker Cary at [facility] will assist with PT-1 form if ongoing transportation support is needed. ) Roya Porras NP [Other] - 11/02/22 12:30 pm (Your next appointment with Roya Porras is scheduled for 11/02/22 at 12:30pm. Referred for therapy and [facility] will contact when one is assigned. ) CARL[facility] [Other] - 11/03/22 9:45 am ( ) Discharge Medications: New ferrous sulfate 300 mg (60 mg iron)/5 mL Liquid 300 mg PO TIDWM Qty: 500 0RF midodrine 10 mg Tablet 10 mg PO TID 30 Days Qty: 90 0RF aripiprazole 10 mg Tablet 10 mg PO DAILY Qty: 30 0RF bisacodyl 5 mg Tablet,Delayed Release (Dr/Ec) 10 mg PO DAILY PRN (Reason: Constipation) Qty: 60 0RF docusate sodium 100 mg Capsule 100 mg PO DAILY PRN (Reason: Constipation) Qty: 60 0RF polyethylene glycol 3350 17 gram Powder In Packet 17 g PO DAILY PRN (Reason: Constipation) Qty: 30 0RF Continued acetaminophen 325 mg Tablet 650 mg PO Q6H PRN (Reason: Pain, Mild (Pain Scale 1-3)) Qty: 60 0RF thiothixene 5 mg Capsule 15 mg PO DAILY 30 Days Qty: 90 0RF aspirin 81 mg Tablet,Delayed Release (Dr/Ec) 81 mg PO DAILY 30 Days Qty: 30 0RF divalproex 500 mg tablet extended release 24 hr 1,000 mg PO BEDTIME 30 Days Qty: 60 0RF benztropine 1 mg Tablet 1 mg PO BID 30 Days Qty: 60 0RF Discontinued ferric citrate 210 mg iron Tablet 210 mg PO TID Qty: 90 0RF thiothixene 5 mg capsule 15 mg PO DAILY 30 Days Qty: 90 0RF olanzapine 10 mg Tablet,Disintegrating 15 mg translingual BEDTIME Qty: 1 0RF Discharge Orders: Discharge Order (Routine); Ordered 10/08/22 Ordered By: Hunter Fernandez Diet: Advance to usual diet Activity on Discharge: As tolerated Stand Alone Forms: Patient Portal Discharge page Care Plan Goals: Care plan goals achieved in this admission Health Concerns: Continue treatment with outpatient providers nephrology and primary care Plan of Treatment: Continue psychiatric treatment. Referral for psychotherapy at [facility]. Assessment: Elderly male with a past history of bipolar disorder and end-stage renal disease on dialysis admitted for exacerbation of lindy and make leg his physical health. He had been admitted several times to Medicine due to medical and stability. When he was admitted in the hospital, we affirm his healthcare proxy and his was taking decisions for him when he was not capable. At this moment he improved remarkably with Abilify and he is ready for discharge no safety concerns at this moment.
[2022-10-07 18:00] VITALS: BP 139/79; PULSE 66; RESP 20; TEMP 36.1; O2SAT 95
[2022-10-07] MEDS: Divalproex Sodium ER 500 MG TAB.ER.24H 1000 MG PO (21:05)
[2022-10-08 08:08] VITALS: BP 101/64; PULSE 71; RESP 20; TEMP 36.4; O2SAT 97
[2022-10-08] MEDS: Benztropine Mesylate 1 MG TABLET PO (12:52)
[2022-10-08] MEDS: ARIPiprazole 10 MG TABLET PO (12:52)
[2022-10-08] MEDS: Midodrine HCl 10 MG TABLET PO (12:53)
[2022-10-08 13:05] VITALS: BP 110/72; PULSE 87; RESP 20; TEMP 36.2; O2SAT 100
== END 2022-10-08 14:04 | disposition home or self-care (01) | DRG 885 ==
PROVIDERS: Internal Medicine Hypertension Specialist; Psychiatry & Neurology Psychiatry; Admitting Provider Psychiatry & Neurology Psychiatry; Visit Provider Psychiatry & Neurology Psychiatry
DX: F31.60 Bipolar disorder, current episode mixed, unspecified (principal); N18.6 End stage renal disease; I12.0 Hypertensive chronic kidney disease with stage 5 chronic kidney disease or end stage renal disease; E87.1 Hypo-osmolality and hyponatremia; I95.9 Hypotension, unspecified; D63.1 Anemia in chronic kidney disease; Z99.2 Dependence on renal dialysis; Z91.158 Patient's noncompliance with renal dialysis for other reason; Z79.82 Long term (current) use of aspirin; Z79.899 Other long term (current) drug therapy
CPT/HCPCS: 36415; 80048; 80053; 80061; 80076; 80164; 83036; 84443; 85025; 85027; 90999; J0885

== ENCOUNTER 2023-07-24 10:56 | Inpatient (IN) | payer MEDICARE, SELFPAY ==
--- NOTE | ~2023-07-24 | XR_ITS ---
EXAMINATION: XR CHEST CLINICAL INFORMATION: Weakness COMPARISON: Chest 07/17/2007 TECHNIQUE: AP upright portable view of the chest was obtained. 1:14 PM FINDINGS: The patient is slightly rotated. Lungs are well expanded. No focal consolidation, interstitial pulmonary edema or pneumothorax. Heart size remains upper limits of normal. No pleural effusion. There is a soft tissue density along the contour of the descending thoracic aorta. Which could represent a mass versus aneurysm. CT scan should be considered for further evaluation. XR/XR chest 1V IMPRESSION: 1. No pneumonia. 2. Soft tissue density along the contour of the descending thoracic aorta. Differential diagnosis includes mass and aneurysm. CT scan should be considered for further evaluation.
[2023-07-24 11:15] VITALS: BP 151/102; PULSE 68; RESP 16; TEMP 36.8; O2SAT 96; BMI 26.3
--- NOTE | 2023-07-24 11:43 | PC.NURSE ---
pt darwin from home on section 12 d/t being noncompliant w/ (unknown) psychiatric medication. pt states he does not take them because they make him feel unwell. pt a&ox3. vss and up to date aside from being hypertensive. pt changed over to hospital attire. belongings placed in locker #9. 1:1 sitter bedside for safety precautions. urine/labs obtained/sent to lab. no sob/wob noted. respirations even and unlabored. plan of care ongoing. call abrrera placed within reach.
[2023-07-24 11:45] LABS: MANUAL DIFF FLAG NO
[2023-07-24 11:46] LABS: Basophils Percent Auto 0.4 % (0-2); Eosinophils Absolute Auto 0.1 X10*3/uL (0.0-0.4); Eosinophils Percent Auto 1.5 % (0-4); Hematocrit 32.6 % (42.0-52.0); Hemoglobin 10.8 g/dl (14.0-18.0); Imm Gran Abs Auto 0.02 X10*3/uL (0.00-0.03); Imm Gran Pct Auto 0.4 % (0.0-0.4); Lymphocytes Absolute Auto 0.7 X10*3/uL (1.2-4.9); Lymphocytes Percent Auto 14.7 % (20-40); Mean Corpuscular HGB Conc 33.1 g/dl (31.0-36.0); Mean Corpuscular Hemoglobin 33.5 pg (27.0-33.0); Mean Corpuscular Volume 101.2 fL (80.0-98.0); Monocytes Absolute Auto 0.5 X10*3/uL (0.1-1.2); Monocytes Percent Auto 11.3 % (2-11); Neutrophils Absolute Auto 3.4 x10*3/uL (2.0-8.3); Neutrophils Percent Auto 71.7 % (45-73); Platelet Count 171 X10*3/uL (160-400); Red Blood Count 3.22 X10*6/uL (4.60-5.80); Red Cell Distribution Width 14.7 % (11.0-16.0); White Blood Count 4.7 X10*3/uL (4.8-10.8)
[2023-07-24 11:48] LABS: Appearance Urine Clear; Color Urine Yellow; Glucose Urine UA 250 mg/dL (Negative); Leukocyte Esterase Urine Negative (Negative); Nitrite Urine Negative (Negative); PH 8.5 (5.0-9.0); UMIC TRIGGER UACC YES; Urine Blood Small (1+) (Negative); Urine Ketones Negative (Negative); Urine Protein 100 (2+) mg/dL (Neg-Trace)
--- NOTE | 2023-07-24 11:57 | ECG_ITS ---
Test Reason : WEAKNESS Blood Pressure : / mmHG Vent. Rate : 069 BPM Atrial Rate : 069 BPM P-R Int : 174 ms QRS Dur : 094 ms QT Int : 438 ms P-R-T Axes : 035 -31 010 degrees QTc Int : 469 ms Sinus rhythm with Premature atrial complexes Left axis deviation Minimal voltage criteria for LVH, may be normal variant ( Meng product ) Abnormal ECG When compared with ECG of 22-AUG-2022 20:42, Premature atrial complexes are now Present Referred By: Candelaria Jacobs Electronically Signed By:YONATAN HELLER MD
[2023-07-24 12:02] LABS: Alanine Aminotransferase 14 U/L (0-40); Albumin Level 4.5 g/dL (3.5-5.0); Alkaline Phosphatase 70 U/L (39-117); Anion Gap 23 (12-20); Aspartate Amino Transferase 16 U/L (5-37); Bilirubin Total 0.7 mg/dL (0.0-1.0); Blood Urea Nitrogen 70 mg/dL (9-16); Calcium 10.3 mg/dL (8.4-10.2); Carbon Dioxide 23 mmol/L (22-29); Chloride 101 mmol/L (96-108); Glucose Random 107 mg/dL (60-115); Potassium 4.2 mmol/L (3.3-5.1); Sodium 143 mmol/L (135-145); Total Protein 7.5 g/dL (6.5-8.0)
--- NOTE | 2023-07-24 12:02 | ED_ITS ---
HPI - Psych General Chief Complaint: General Medical Stated Complaint: SEC 12,NON MED COMP PER EMS Time Seen by Provider: 07/24/23 11:36 Source: patient, EMS and old records reviewed Mode of arrival: EMS Limitations: other (poor historian) History of Present Illness HPI Narrative: 68 yo male with PMH of ESRD on HD MWF last dialyzed on Monday, FTT, anemia, bipolar, hx of noncompliance here with c/o not wanting to go to HD because he's done with it but denies SI. He also reports he doesn't like his medications because they make him feel dizzy. He is on section [phone] 's cell number complaint: other Onset (ago): day(s) (few) Duration: constant History of same: Yes Relieving factors: none Exacerbating factors: none Context: other Associated psychiatric symptoms: none Associated symptoms: denies other symptoms Treatments prior to arrival: none Related Data Previous Rx's ?Medication ?Instructions ?Recorded acetaminophen 325 mg tablet 650 mg (2 x 325 mg) PO Q6H PRN 10/07/22 Pain, Mild (Pain Scale 1-3) #60 tabs aripiprazole 10 mg tablet 10 mg PO DAILY #30 tabs 10/07/22 aspirin 81 mg tablet,delayed 81 mg PO DAILY 30 days #30 tabs 10/07/22 release benztropine 1 mg tablet 1 mg PO BID 30 days #60 tabs 10/07/22 bisacodyl 5 mg tablet,delayed 10 mg (2 x 5 mg) PO DAILY PRN 10/07/22 release Constipation #60 tabs divalproex 500 mg tablet,extended 1,000 mg (2 x 500 mg) PO BEDTIME 10/07/22 release 24 hr 30 days #60 tabs docusate sodium 100 mg capsule 100 mg PO DAILY PRN Constipation 10/07/22 #60 caps ferrous sulfate 300 mg (60 mg 300 mg (5 mL) PO TIDWM #500 mL 10/07/22 iron)/5 mL oral liquid midodrine 10 mg tablet 10 mg PO TID 30 days #90 tabs 10/07/22 polyethylene glycol 3350 17 gram 17 g PO DAILY PRN Constipation #30 10/07/22 oral powder packet ea thiothixene 5 mg capsule 15 mg (3 x 5 mg) PO DAILY 30 days 10/07/22 #90 caps Allergies Allergy/AdvReac Type Severity Reaction Status Date / Time No Known Allergies Allergy Verified 07/24/23 11:18 Review of Systems 2 Review of Systems: Constitutional : No Fever, No Chills, No Fatigue ENT/Mouth : No sore throat, No Rhinorrhea Eyes: No Eye Pain, No Swelling, No Redness Cardiovascular : No Chest Pain, No SOB, No Dyspnea on Exertion Respiratory : No Cough, No Sputum Gastrointestinal : No Nausea, No Vomiting, No Diarrhea, No abdominal Pain Genitourinary : No Dysuria, No Urinary Frequency, No Hematuria, Musculoskeletal : No joint pain, No Myalgias, No Joint Swelling Skin : No Skin Lesions, No rash Neuro : No Weakness, No Numbness, No Dizziness, no Headache Psych : No Anxiety/Panic, No Depression, no SI/HI All other systems reviewed and are negative [facility] Past Medical History Attestation statement: The following information was validated with the patient. Source: old records reviewed Medical History Anemia Anemia Hypertension Bipolar disorder Dialysis patient Social History Social History Household Members: Spouse Housing: Unknown / Unable to assess Unable to assess alcohol history related to: Refusing to respond Alcohol intake: never Comment: 1:1 sitter Patient Tobacco Use Status: Never used Tobacco Advance Directives: Yes Advance Directives on File: Yes Advance Directives Date on File: 10/11/22 service: No Current occupational status: disabled Sexual orientation: Straight/Heterosexual Physical Exam 2 Vital Signs: Vital Signs: Last Vital Signs Temp 97.6 F 07/24/23 14:55 Pulse 75 07/24/23 14:55 Resp 16 07/24/23 14:55 BP 177/97 H 07/24/23 14:55 Pulse Ox 95 07/24/23 14:55 O2 Del Method Room Air 07/24/23 14:55 BMI result Body Mass Index 26.3 Appearance: Alert. Oriented X3. No acute distress. Flat affect withdrawn Eyes: Pupils equal, round and reactive to light. ENT: Pharynx normal. Neck: Normal inspection. Neck supple. CVS: Normal heart rate and rhythm. Pulses normal. Respiratory: No respiratory distress. Breath sounds normal. Abdomen: Soft and nontender. Skin: Skin warm and dry. Normal skin color. Normal skin turgor. Extremities: No lower extremity edema. L AVF thrill felt Neuro: Oriented X 3. No motor deficit. No sensory deficit. CN2-12 intact Course Course Course Narrative: Monday AM took off and went to [place] - stopped taking his medications unsure as he is very sneaky. patient took off Monday called the police. She saw an MARY machine charge in [place]. He returned on his own this AM after driving alone. no SI/HI statements. He grabbed the keys from his when she tried to take them from him. HCP is invoked permanently and there is a court affirmation. Psych refused HD Med floor then didn't eat for 2 weeks and she felt his psychiatric symptoms were neglected [phone] 's cell number Went back to psych floor but he refused medications and took 1 more month. Reevaluation(s) Reevaluation #1: refusing CT scan at this time IM zyprexa ordered for CT imaging of aorta Reevaluation #2: CTA ordered for aorta Reevaluation #3: who is HCP is aware of sedation and states you have my full permission to do anything and everything to treat him. Medications Administered Generic Name Dose Route Start Last Admin Trade Name Freq PRN Reason Stop Dose Admin Heparin Sodium (Porcine) 5,000 unit 07/24/23 15:00 07/24/23 15:49 Heparin Sodium,Porcine 5,000 Unit/Ml Vial SUBCUT 5,000 unit Q12H DEVON Administration Sodium Chloride 3 ml 07/24/23 16:00 07/24/23 15:29 0.9 % Sodium Chloride Flush 3 Ml Syringe IVFLUSH 3 ml QSHIFT DEVON Administration Discontinued Medications Generic Name Dose Route Start Last Admin Trade Name Freq PRN Reason Stop Dose Admin Olanzapine 5 mg 07/24/23 15:01 07/24/23 15:26 Olanzapine 10 Mg Vial IM 07/24/23 15:02 5 mg STAT STA Administration Medical Decision Making Medical Decision Making [facility] Narrative: 68 yo male with PMH of ESRD on HD MWF, FTT, anemia, bipolar, hx of noncompliance here with c/o not taking his medications for a while states he feels dizzy when he takes them and he also notes he is just done with HD but is not suicidal at this time labs, EKG, CXR and will consult psychiatry to see if we can invoke HCP - he has no SI/HI, he is not hallucinating and he is alert and oriented x 3. Differential Diagnosis Differential Diagnoses: The differential diagnosis associated with the presentation includes depression, uremic encephalopathy, lab derangement, bipolar Admission/Observation Consideration of admission/observation: Escalation of care including admission/observation considered observe until we can figure out his HCP status affirmed HCP will need admission wants medical and psychiatric care she wants medications and HD Consult Healthcare Provider Management of the patient was discussed with: Hospitalist (Chris MARKETING SERVICES COORDINATOR aware) and Online Merchandising Specialist (Dr. Rossy perez) Jennie Sanchez NP aware Lab Data MDM Lab Attestation statement: I reviewed the patient's lab results. 07/24/23 11:37 07/24/23 11:37 Labs: Lab Results 07/24/23 07/24/23 07/24/23 Range/Units 11:37 11:57 12:25 WBC 4.7 L (4.8-10.8) X10*3/uL RBC 3.22 L D (4.60-5.80) X10*6/uL Hgb 10.8 L D (14.0-18.0) g/dl Hct 32.6 L D (42.0-52.0) % MCV 101.2 H (80.0-98.0) fL MCH 33.5 H (27.0-33.0) pg MCHC 33.1 (31.0-36.0) g/dl RDW 14.7 (11.0-16.0) % Plt Count 171 D (160-400) X10*3/uL MPV 10.0 (9.4-12.4) fL Immature Gran % (Auto) 0.4 (0.0-0.4) % Neut % (Auto) 71.7 (45-73) % Lymph % (Auto) 14.7 L (20-40) % [place] % (Auto) 11.3 H (2-11) % Eos % (Auto) 1.5 (0-4) % Baso % (Auto) 0.4 (0-2) % Lymph # (Auto) 0.7 L (1.2-4.9) X10*3/uL [place] # (Auto) 0.5 (0.1-1.2) X10*3/uL Eos # (Auto) 0.1 (0.0-0.4) X10*3/uL Baso # (Auto) 0.0 (0.0-0.2) X10*3/uL Abs Immat Gran (auto) 0.02 (0.00-0.03) X10*3/uL Absolute Neuts (auto) 3.4 (2.0-8.3) x10*3/uL Absolute Nucleated RBC 0.000 (0.0-0.012) X10*3/uL Nucleated RBC % (auto) 0.0 (0.0-0.2) /100WBC Sodium 143 (135-145) mmol/L Potassium 4.2 (3.3-5.1) mmol/L Chloride 101 (96-108) mmol/L Carbon Dioxide 23 (22-29) mmol/L Anion Gap 23 H (12-20) BUN 70 H (9-16) mg/dL Creatinine 12.82 H* (0.5-1.4) mg/dL Estim Creat Clear Calc 5.8 Estimated GFR 4 Random Glucose 107 (60-115) mg/dL Calcium 10.3 H D (8.4-10.2) mg/dL Total Bilirubin 0.7 (0.0-1.0) mg/dL AST 16 (5-37) U/L ALT 14 (0-40) U/L Alkaline Phosphatase 70 (39-117) U/L Total Protein 7.5 (6.5-8.0) g/dL Albumin 4.5 (3.5-5.0) g/dL TSH 1.14 (0.32-4.0) uIU/mL Urine Color Yellow Urine Appearance Clear Urine pH 8.5 (5.0-9.0) Ur Specific [place] 1.010 (1.005-1.025) Urine Protein 100 (2+) H (Neg-Trace) mg/dL Urine Glucose (UA) 250 H (Negative) mg/dL Urine Ketones Negative (Negative) mg/dL Urine Blood Small (1+) H (Negative) Urine Nitrite Negative (Negative) Ur Leukocyte Esterase Negative (Negative) Urine RBC 0-2 (0-2) /HPF Urine WBC 0-5 (0-5) /HPF Ur Squamous Epith Cells 0-2 (0-2) /HPF Urine Bacteria None Seen (None Seen) Hyaline Casts 0-2 (0-2) /LPF Valproic Acid < 12.5 L (50.0-100.0) mcg/mL Influenza Type A (PCR) NEGATIVE (Negative) Influenza Type B (PCR) NEGATIVE (Negative) RSV RNA Qual (PCR) NEGATIVE (Negative) SARS-CoV-2 RNA (RT-PCR) NEGATIVE (Negative) Independent Interpretation I performed an independent interpretation of an: EKG and Plain X-Ray (no edema) Interpretation: Rate: 69 Rhythm: NSR [place]: left Normal P waves. Normal CHETAN. Normal QRS complex. ST T wave : no FARIDA qTC: 469 prior studies: no acute ischemia The study has been interpreted contemporaneously by me. . Radiology Impression Discussion of test interpretation with radiology: I have reviewed the radiologist's reading. Independent Historian Clinical information obtained from an independent historian. History obtained from or confirmed by: EMS External Record Review External record reviewed: Inpatient record Critical Care Time Critical Care Time Critical Care Time: Yes Total Critical Care Time: 60 Attestation: review of records, discussion of care with HCP - , coordination of care, IM medications to obtain testing I attest to this time spent taking care of the patient Discharge Plan Discharge Clinical Impression: ESRD needing dialysis, FTT (failure to thrive) in adult Patient Disposition: Admitted As Inpatient
[2023-07-24 12:03] LABS: Creatinine Clr Calc Pharmacy 5.8; Estimated Glomerular Filt Rate 4
[2023-07-24 12:06] LABS: Bacteria Urine None Seen (None Seen); Hyaline Casts Urine 0-2 /LPF (0-2); RBC Urine 0-2 /HPF (0-2); Squamous Epithelial Cell Urine 0-2 /HPF (0-2); WBC Urine 0-5 /HPF (0-5)
--- NOTE | 2023-07-24 12:30 | PC.NURSE ---
20gIV placed in the right forearm/wrist - wrapped in gauze for safety precautions. labs obtained/sent to lab. pt seen by ED provider/aware of plan of care at this time. 1:1 sitter remains present. pt pending psychiatry consult at this time. plan of care ongoing. call barrera placed within reach.
[2023-07-24 12:45] LABS: Valproate < 12.5 mcg/mL (50.0-100.0)
[2023-07-24 13:02] LABS: Influenza A PCR NEGATIVE (Negative); Influenza B PCR NEGATIVE (Negative); Resp Syncy Virus RNA Qual PCR NEGATIVE (Negative); SARS COV2 PCR INHOUSE NEGATIVE (Negative)
[2023-07-24 13:09] LABS: TSH reflex Free T4 1.14 uIU/mL (0.32-4.0)
--- NOTE | 2023-07-24 14:25 | PC.NURSE ---
pt to CTA at this time.
[2023-07-24 14:55] VITALS: BP 177/97; PULSE 75; RESP 16; TEMP 36.4; O2SAT 95
--- NOTE | 2023-07-24 15:03 | PM.IMHP ---
History of Present Illness Date of Service: 07/24/23 Attending physician on admission: Martir Guillory Chief Complaint: noncompliance, needs hd 68-year-old male with history of ESRD on HD MWF, bipolar disorder, schizoaffective disorder, chronic macrocytic anemia presents to the ED on section 12 via EMS due to noncompliance with medications. The patient is a limited historian but states that he has not been taking his psychiatric medications due to side effects. He states they make him feel lightheaded and give him headaches. He apparently has also been refusing dialysis today. He was last dialyzed on Monday and follows with Dr. Pena and Nephrology. States that he is agreeable to dialysis but not today. States he is talked to Dr. Pena about changing his dialysis schedule versus stopping dialysis altogether though he is uninformed on the effects of stopping HD. Apparently the patient drove to [place] on monday morning by himself and his saw an rafael transaction there and called the police. The patient reportedly returned on his own this am. NO si/hi. The patient refuses to elaborate on why he drove to [place] to this author. HCP is permanently invoked and there is a court authorization for this. He has been admitted psychiatrically and has a history of medication and HD refusal. In the ED, pt hypertensive to 177/97. Hematology studies baseline. Creatinine 12.82, BUN 70, electrolyte levels normal. Urinalysis with 2+ protein, glucose, otherwise unremarkable. Valproic acid level <12.5. Negative for influenza, COVID-19, RSV. Chest x-ray negative for focal consolidation but shows soft tissue density along the contour of the descending thoracic aorta. Subsequent CTA chest pending. Pt evaluated by psychiatry recommending continuing abilify and depakote. He will be admitted for ESRD on HD and further psychiatric evaluation. Review of Systems Review of Systems: Yes Unobtainable due to mental status PMFSH Medical History Anemia Anemia Hypertension Bipolar disorder Dialysis patient Social History Household Members: Spouse Housing: House Do you presently have visiting nurse or other home services: No Unable to assess alcohol history related to: Refusing to respond Alcohol intake: never Comment: 1:1 sitter Patient Tobacco Use Status: Never used Tobacco Advance Directives Date on File: 10/11/22 service: No Current occupational status: disabled Sexual orientation: Straight/Heterosexual Meds Allergies Allergy/AdvReac Type Severity Reaction Status Date / Time No Known Allergies Allergy Verified 07/24/23 11:18 Home Medications ?Medication ?Instructions ?Recorded ?Confirmed ?Last Taken ?Type aripiprazole 5 mg tablet 5 mg PO DAILY 07/24/23 07/24/23 Unknown History benztropine 1 mg tablet 2 mg PO BID 07/24/23 07/24/23 Unknown History sevelamer carbonate 800 mg tablet 800 mg PO TID@0800,1200,1800 07/24/23 07/24/23 Unknown History vitamin B complex and vitamin C 1 cap PO DAILY 07/24/23 07/24/23 Unknown History no.20-folic acid 1 mg capsule (Renal Caps) Physical Exam Vital Signs and Narrative: Vital Signs: Last Vital Signs Temp 97.6 F 07/24/23 14:55 Pulse 75 07/24/23 14:55 Resp 16 07/24/23 14:55 BP 177/97 H 07/24/23 14:55 Pulse Ox 95 07/24/23 14:55 O2 Del Method Room Air 07/24/23 14:55 BMI result Body Mass Index 26.3 Constitutional - Awake and Alert, No apparent distress Eyes - PERRLA, EOMI Cardiovascular - S1S2, RRR, IV/ systolic ejection murmur, 1+ble edema Respiratory - Normal lung expansion, Normal respiratory effort, No respiratory distress, CTA bilaterally Gastrointestinal - NT / ND; +BS; No rebound or guarding Extremities - no calf tenderness bilaterally, no swelling Skin - Warm/Dry Neurological - Alert & oriented x3, tremulous Psychological - flat affect, depressed mood Results Labs 07/24/23 11:37 07/24/23 11:37 Labs: Laboratory Results - last 24 hr 07/24/23 07/24/23 07/24/23 11:37 11:57 12:25 MCV 101.2 H MCH 33.5 H MCHC 33.1 RDW 14.7 Plt Count 171 D MPV 10.0 Immature Gran % (Auto) 0.4 Neut % (Auto) 71.7 Lymph % (Auto) 14.7 L [place] % (Auto) 11.3 H Eos % (Auto) 1.5 Baso % (Auto) 0.4 Lymph # (Auto) 0.7 L [place] # (Auto) 0.5 Eos # (Auto) 0.1 Baso # (Auto) 0.0 Abs Immat Gran (auto) 0.02 Absolute Neuts (auto) 3.4 Absolute Nucleated RBC 0.000 Nucleated RBC % (auto) 0.0 Anion Gap 23 H Estim Creat Clear Calc 5.8 Estimated GFR 4 Random Glucose 107 Calcium 10.3 H D Total Bilirubin 0.7 AST 16 ALT 14 Alkaline Phosphatase 70 Total Protein 7.5 Albumin 4.5 TSH 1.14 Urine Color Yellow Urine Appearance Clear Urine pH 8.5 Ur Specific [place] 1.010 Urine Protein 100 (2+) H Urine Glucose (UA) 250 H Urine Ketones Negative Urine Blood Small (1+) H Urine Nitrite Negative Ur Leukocyte Esterase Negative Urine RBC 0-2 Urine WBC 0-5 Ur Squamous Epith Cells 0-2 Urine Bacteria None Seen Hyaline Casts 0-2 Valproic Acid < 12.5 L Influenza Type A (PCR) NEGATIVE Influenza Type B (PCR) NEGATIVE RSV RNA Qual (PCR) NEGATIVE SARS-CoV-2 RNA (RT-PCR) NEGATIVE Imaging Radiologist's Impressions: Impressions Chest X-Ray 07/24/23 13:15 IMPRESSION: 1. No pneumonia. 2. Soft tissue density along the contour of the descending thoracic aorta. Differential diagnosis includes mass and aneurysm. CT scan should be considered for further evaluation. Assessment and Plan (1) Noncompliance by declining intervention or support: Status: Acute (2) ESRD needing dialysis: Status: Acute (3) Schizoaffective disorder, bipolar type: Status: Acute Plan 68-year-old male with history of ESRD on HD MWF, bipolar disorder, schizoaffective disorder, chronic macrocytic anemia presents to the ED on section 12 via EMS due to noncompliance with medications. The patient is a limited historian but states that he has not been taking his psychiatric medications due to side effects. He states they make him feel lightheaded and give him headaches. He apparently has also been refusing dialysis today. He was last dialyzed on Monday and follows with Dr. Pena and Nephrology. States that he is agreeable to dialysis but not today. States he is talked to Dr. Pena about changing his dialysis schedule versus stopping dialysis altogether though he is uninformed on the effects of stopping HD. He will be admitted for HD due to ESRD with further psychiatric evaluation. #ESRD on HD -MWF schedule, Nephrology consult- Dr. Pena -Creat 12, BUN 70, lytes normal -follow renal function, divalents #Schizoaffective disorder, bipolar type -noncompliant with meds -continue depakote and abilify per psychiatry -psychiatry consult #Soft tissue abnormality ascending aorta -CTA chest pending #Systolic ejection murmur -echo pending #Chronic macrocytic anemia -vitamin b12 and folic acid levels pending am DVT prophylaxis- heparin Full code HCP invoked by court order per ED provider/psychiatry. HCP is pt , Sujata Holcomb [phone] Pt requires inpt stay at least 2 midnights for HD due to esrd, noncompliant with schedule and requiring further psychiatric evaluation wtih medication noncompliance and erratic behavior (drove to [place] but unsure why) which can not safely be performed on outpt basis. Quality Stroke Does the patient have a stroke diagnosis?: No VTE Prior VTE?: No VTE Risk Level:: Medical - moderate - high VTE Device Contraindication: Treatment Not Indicated VTE Drug Contraindication: N/A - Med Ordered
[2023-07-24] MEDS: OLANZapine 10 MG VIAL 5 MG IM (15:26)
[2023-07-24] MEDS: 0.9 % Sodium Chloride Flush 3 ML SYRINGE IVFLUSH ×2 (15:29→23:34)
--- NOTE | 2023-07-24 15:30 | PC.NURSE ---
5mg Zyprexa administered via IM d/t pt's HCP being invoked and refusing for scans to be completed at this time. pt calm/cooperative through IM administration. 1:1 sitter remains present. respirations remain even and unlabored. plan of care ongoing.
[2023-07-24] MEDS: Heparin Sodium,Porcine 5,000 UNIT/ML VIAL 5000 UNIT SUBCUT (15:49)
--- NOTE | 2023-07-24 15:56 | P.CNPS_ITS ---
History of Present Illness Date of Service: 07/24/2023 Chief Complaint: esrd dialysis Discussed with referring provider: Yes Sources of Information: patient interviewed, chart reviewed and crisis/core team assessment reviewed HPI Narrative: Mr. Holcomb is a 68 year-old male with hx of Bipolar Disorder vs schizoaffecive bipolar type who was brought by due to pt presenting as more disorganized, erradic behaviors who apparently left Monday morning and noticed [facility] transaction in [place]. Pt ultimately returned on his own. Today, pt presents as vague in terms of him driving to [place], same as reason for being in the hospital He is not able to tell this communications writer what the plan of going to [place] was and whether he was worried that he is due for dialysis. Pt states he did not have enough money and came back. In terms of dialysis, pt states is not true that I need to have it and states he just wanted to wait until Monday to speak with Dr. Pena. Pt informed that per attending he needs to have dialysis either today or tomorrow at the latest otherwise it will be life threatening situation for him. When asked about SI- pt adamantly denies suicidal or homicidal ideation. Pt reports he stopped all medications- he states he is not sure which medication caused him to have a headache and feel dizzy, so he states he stop them all and was also waiting to ask his nephrology which meds to take. Pt was last admitted to psychiatric unit back in 09/2021- he had periods of catatonia, not eating, underlying paranoia and psychosis and also refusing dialysis which is not typical of him when psychiatrically stable. He has periods of prolonged Past Psychiatric History: Bipolar d/o ? psychosis . Hx M 5 admissions and [facility] in 1990, No Op providers currently? First psychotic/manic break in early . 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7 L [place] % (Auto) 11.3 H Eos % (Auto) 1.5 Baso % (Auto) 0.4 Lymph # (Auto) 0.7 L [place] # (Auto) 0.5 Eos # (Auto) 0.1 Baso # (Auto) 0.0 Abs Immat Gran (auto) 0.02 Absolute Neuts (auto) 3.4 Absolute Nucleated RBC 0.000 Nucleated RBC % (auto) 0.0 Sodium 143 Potassium 4.2 Chloride 101 Carbon Dioxide 23 Anion Gap 23 H BUN 70 H Creatinine 12.82 H* Estim Creat Clear Calc 5.8 Estimated GFR 4 Random Glucose 107 Calcium 10.3 H D Total Bilirubin 0.7 AST 16 ALT 14 Alkaline Phosphatase 70 Total Protein 7.5 Albumin 4.5 TSH 1.14 Urine Color Yellow Urine Appearance Clear Urine pH 8.5 Ur Specific [place] 1.010 Urine Protein 100 (2+) H Urine Glucose (UA) 250 H Urine Ketones Negative Urine Blood Small (1+) H Urine Nitrite Negative Ur Leukocyte Esterase Negative Urine RBC 0-2 Urine WBC 0-5 Ur Squamous Epith Cells 0-2 Urine Bacteria None Seen Hyaline Casts 0-2 Valproic Acid < 12.5 L Influenza Type A (PCR) NEGATIVE Influenza Type B (PCR) NEGATIVE RSV RNA Qual (PCR) NEGATIVE SARS-CoV-2 RNA (RT-PCR) NEGATIVE Imaging Radiology Impressions: ITS Impressions Chest X-Ray 07/24/23 13:15 IMPRESSION: 1. No pneumonia. 2. Soft tissue density along the contour of the descending thoracic aorta. Differential diagnosis includes mass and aneurysm. CT scan should be considered for further evaluation. Mental Status Exam Mental Status Exam Narrative: appearance: wearing hospital gown, noticeable bilat tremors, in NAD behavior: guarded Psychomotor: some retardation noted Speech: delayed in response, minimally spontaneous, mumbling at times TP: wanting to go home TC: feeling well, in disbelief about needing dialysis and urgency of this. Mood: good Affect: constricted SI: adamantly denies HI: none VH/AH: internally preoccupied delusions:not reported during this admission, but appears underlying paranoia Insight/judgment: impaired x 2 memory/cog: alert, oriented to place, month, not situation, poor attention Medications Medications Current Medications Acetaminophen (Acetaminophen 325 Mg Tablet) 650 mg PO Q6H PRN PRN Reason: Pain, Mild (Pain Scale 1-3) Aripiprazole (Aripiprazole 10 Mg Tablet) 10 mg PO DAILY [facility] Aspirin (Aspirin Enteric Coated 81 Mg Tablet.Dr) 81 mg PO DAILY [facility] Divalproex Sodium (Divalproex Sodium Er 500 Mg Tab.Er.24h) 1,000 mg PO BEDTIME [facility] Heparin Sodium (Porcine) (Heparin Sodium,Porcine 5,000 Unit/Ml Vial) 5,000 unit SUBCUT Q12H [facility] Last Admin: 07/24/23 15:49 Dose: 5,000 unit Ondansetron HCl (Ondansetron Hcl 4 Mg/2 Ml Vial) 4 mg IVPUSH Q8H PRN PRN Reason: Nausea and Vomiting Senna (Sennosides 8.6 Mg Tablet) 17.2 mg PO BEDTIME PRN PRN Reason: Constipation Sodium Chloride (0.9 % Sodium Chloride Flush 3 Ml Syringe) 3 ml IVFLUSH QSHIFT [facility] Last Admin: 07/24/23 15:29 Dose: 3 ml Allergies Allergies Allergy/AdvReac Type Severity Reaction Status Date / Time No Known Allergies Allergy Verified 07/24/23 11:18 Assessment & Plan Assessment & Plan (1) Bipolar disorder: Status: Acute Code(s): F31.9 - Bipolar disorder, unspecified Plan Mr. Holcomb is a 68 year-old male with hx of vipolar disorder versus schizoaffective bipolar type who was brought by due to erradic behaviors, drove to [place] unclear reason for this. Pt presents with delayed in response, appears internally preoccupied. Moreover, he does not show understading of medical condition, need for dialysis. He does have an affirmed HCP- copy in [place]. HCP is invoked and is main decision maker. He was last here october 2021 with similar presentation including periods of catatonia, paranoid delusions refusing care. PLAN 1. will do ativan challenge given that he appears to have some catatonic feature- if effective may scheduled ativan 2mg IV TID- monitor oversedation. 2. continue ability 10mg po daily. He is also on Navane at home--> not in fomulary, but will hold for now until catatonic s/s resolved, given that it is higher potency antipsychotic. 3. continue depakote 1000mg po qhs- check ammonia. Total time managing care of this patient today ____ minutes.
--- NOTE | 2023-07-24 16:40 | PHA.MEDREC ---
Pharmacy Consult ? Medication Reconciliation Pharmacy has completed the medication reconciliation. Patient stated he did not know his medications. Called [facility] pharmacy to confirm meds. [facility] reports all medications. Stated patient is on abilify 10 and 5 mg tablets. Malini Smallwood, PharmD
--- NOTE | 2023-07-24 17:17 | PC.NURSE ---
pt refused for CTA to be completed at this time. pt brought back to room d/t refusal. phlebotomy bedside attempting to obtain labs - pt also refusing for this intervention to be completed as well. admitting provider notified/aware. 1:1 sitter remains present. plan of care ongoing. call barrera placed within reach.
[2023-07-24 17:25] VITALS: BP 160/102; PULSE 75; RESP 18; TEMP 36.5; O2SAT 98
[2023-07-24] MEDS: LORazepam 2 MG/ML VIAL 1 MG IM (18:42)
--- NOTE | 2023-07-24 18:43 | PC.NURSE ---
pt refusing IVP ativan administration. provider aware. ativan administered via IM at this time. pt tolerated well.
--- NOTE | 2023-07-24 19:13 | PC.NURSE ---
admission worksheet complete. transport notified.
[2023-07-24 19:33] VITALS: BP 158/84; PULSE 67; RESP 17; O2SAT 96
--- NOTE | 2023-07-24 19:54 | PC.NURSE ---
pt being transported at this time.
--- NOTE | 2023-07-24 20:54 | PC.NURSE ---
Patient just admitted to S3 room 374. Per ED report CT angio chest was ordered earlier today while patient was still in ED due to abnormal CXR.Since patient was very uncooperative and was refusing it it was never obtained. At 2025 this order was queued by ED physician. This RN called CT to verify situation and per CT staff another attempt to do this scan will be tomorrow. Night Hospitalist Dr Soni made aware.
[2023-07-24 23:29] VITALS: BP 176/90; PULSE 58; RESP 18; TEMP 36.1; O2SAT 98
--- NOTE | 2023-07-25 00:32 | PC.NURSE ---
Elevated BP 176/90. Dr Soni aware, no new orders.
--- NOTE | 2023-07-25 05:52 | PC.NURSE ---
Patient refused morning labs, also has been refusing meds. Md Soni notified.
--- NOTE | 2023-07-25 09:21 | PC.NURSE ---
Patient refusing all medications, vital signs, assessments, and care this morning. Refused breakfast. Declining CTA at this time. Dr. Guillory aware. Resting in bed. RR even and unlabored. Respiratory rate 18/minute. No signs or symptoms of distress at this time. 1:1 sitter present. Patient remains in behavioral control.
--- NOTE | 2023-07-25 10:12 | PC.NURSE ---
1:1 patient safety inspector discontinued per Dr. Guillory at rounds. Camera in place for safety.
--- NOTE | 2023-07-25 12:19 | P.PNIM_ITS ---
Subjective Subjective Date of Service: 07/25/23 Interval History: seen and evaluated refusing medications refusing dialysis asking to speak to dr Pena Review of Systems Review of Systems: Yes all other systems are reviewed and are negative Physical Exam 2 Vital Signs: Vital Signs: Last Vital Signs Temp 97.0 F 07/24/23 23:29 Pulse 58 07/24/23 23:29 Resp 18 07/24/23 23:29 BP 176/90 H 07/24/23 23:29 Pulse Ox 98 07/24/23 23:29 O2 Del Method Room Air 07/24/23 23:29 BMI result Body Mass Index 26.3 Const: Other: Constitutional : Awake, interactive, not in distress Neck : Normal inspection, Supple Cardiovascular : RRR, no JVP, no lower extremity edema Respiratory : good bilateral air entry, no crackles, wheezes or rhonchi Gastrointestinal: soft, lax, Normal bowel sounds, Non tender Skin : Warm, Dry Neurological : Alert & oriented to self and place, No focal deficit , mild resting tremors bilaterally Objective Data Active Medications Acetaminophen (Acetaminophen 325 Mg Tablet) 650 mg PO Q6H PRN PRN Reason: Pain, Mild (Pain Scale 1-3) Aripiprazole (Aripiprazole 10 Mg Tablet) 10 mg PO DAILY [facility] Last Admin: 07/25/23 10:08 Dose: Not Given Documented By: MIESHA Non-Admin Reason: Patient Refused Aripiprazole (Aripiprazole 5 Mg Tablet) 5 mg PO DAILY [facility] Last Admin: 07/25/23 10:08 Dose: Not Given Documented By: MIESHA Non-Admin Reason: Patient Refused Aspirin (Aspirin Enteric Coated 81 Mg Tablet.) 81 mg PO DAILY [facility] Last Admin: 07/25/23 10:08 Dose: Not Given Documented By: MIESHA Non-Admin Reason: Patient Refused Divalproex Sodium (Divalproex Sodium Er 500 Mg Tab.Er.24h) 1,000 mg PO BEDTIME [facility] Last Admin: 07/24/23 20:08 Dose: Not Given Documented By: SCAR Non-Admin Reason: Patient Refused Heparin Sodium (Porcine) (Heparin Sodium,Porcine 5,000 Unit/Ml Vial) 5,000 unit SUBCUT Q12H [facility] Last Admin: 07/25/23 03:32 Dose: Not Given Documented By: SCAR Non-Admin Reason: Patient Refused Multivitamins/Vitamin C (Multivitamin Tablet) 1 tab PO DAILY [facility] Last Admin: 07/25/23 10:09 Dose: Not Given Documented By: MIESHA Non-Admin Reason: Patient Refused Ondansetron HCl (Ondansetron Hcl 4 Mg/2 Ml Vial) 4 mg IVPUSH Q8H PRN PRN Reason: Nausea and Vomiting Senna (Sennosides 8.6 Mg Tablet) 17.2 mg PO BEDTIME PRN PRN Reason: Constipation Sevelamer Carbonate (Sevelamer Carbonate Tablet 800 Mg Tablet) 800 mg PO TID@0800,1200,1800 [facility] Last Admin: 07/25/23 09:14 Dose: Not Given Documented By: MIESHA Non-Admin Reason: Patient Refused Sodium Chloride (0.9 % Sodium Chloride Flush 3 Ml Syringe) 3 ml IVFLUSH QSHIFT [facility] Last Admin: 07/25/23 09:14 Dose: Not Given Documented By: MIESHA Non-Admin Reason: Patient Refused Labs 07/24/23 11:37 07/24/23 11:37 Labs: Laboratory Results - last 24 hr 07/24/23 07/24/23 11:57 12:25 TSH 1.14 Valproic Acid < 12.5 L Influenza Type A (PCR) NEGATIVE Influenza Type B (PCR) NEGATIVE RSV RNA Qual (PCR) NEGATIVE SARS-CoV-2 RNA (RT-PCR) NEGATIVE Assessment and Plan (1) Noncompliance by declining intervention or support: Status: Acute (2) ESRD needing dialysis: Status: Acute Plan 68-year-old male with history of ESRD on HD MWF, bipolar disorder, schizoaffective disorder, chronic macrocytic anemia presents to the ED on section 12 via EMS due to noncompliance with medications. The patient is a limited historian but states that he has not been taking his psychiatric medications due to side effects. He states they make him feel lightheaded and give him headaches. He apparently has also been refusing dialysis today. He was last dialyzed on Monday and follows with Dr. Pena and Nephrology. States that he is agreeable to dialysis but not today. States he is talked to Dr. Pena about changing his dialysis schedule versus stopping dialysis altogether though he is uninformed on the effects of stopping HD. He will be admitted for HD due to ESRD with further psychiatric evaluation. #ESRD on HD MWF schedule, Nephrology consult. patient still refusing dialysis. previous admission Haldol was used to take him to dialysis. no urgency in blood work to do HD now. follow BMP #Schizoaffective disorder, bipolar type noncompliant with meds. continue depakote and abilify for now. psychiatry input appreciated #Soft tissue abnormality ascending aorta CTA chest pending #Systolic ejection murmur echo pending #Chronic macrocytic anemia vitamin b12 and folic acid levels pending DVT prophylaxis- heparin Full code HCP invoked by court order per ED provider/psychiatry. HCP is pt , Sujata Holcomb [phone] Pt requires inpt stay overnight for HD due to esrd, noncompliant with schedule and requiring further psychiatric evaluation wtih medication noncompliance and erratic behavior (drove to [place] but unsure why) which can not safely be performed on outpt basis. Quality Stroke Does the patient have a stroke diagnosis?: No VTE Prior VTE?: No VTE Risk Level:: Medical - moderate - high VTE Device Contraindication: Treatment Not Indicated VTE Drug Contraindication: N/A - Med Ordered
--- NOTE | 2023-07-25 13:24 | MHC.CM.PN ---
Addendum entered by Myriam Mitchell 07/25/23 14:36: /HCP LEONID RETURNED CALL. SHE CAN BE REACHED AT [facility] # [phone]. IMM DELIVERED VIA TELEPHONE, VERBALIZES UNDERSTANDING AND REQUEST WHITE COPY BE MAILED. PT IS INDEPENDENT AT BASELINE. PT HAS LONG HX OF MENTAL ILLNESS. PT ATTENDS HD M-W- AT [facility]. PT DRIVES HIMSELF. +HCP (CURRENTLY INVOKED) PCP AT [facility]. DP: TBD, PT MAY NEED PSYCH STAY ONCE MEDICALLY CLEARED. CM WILL CONTINUE TO FOLLOW FOR DC PLAN/NEEDS. Original Note: PT IS NOT ABLE TO PARTICIPATE IN CM ASSESSMENT DUE TO LETHARGY AND COGNITIVE DECLINE. UNABLE TO REACH /INVOKED HCP X 2, MESSAGE LEFT TO RETURN CALL. UNABLE TO DELIVER IMM.
--- NOTE | 2023-07-25 14:25 | PM.PSYCN ---
History of Present Illness Date of Service: 07/25/2023 Chief Complaint: esrd dialysis Sources of Information: patient interviewed, chart reviewed and crisis/core team assessment reviewed HPI Narrative: Interim Hx: pt seen in his room. He is lying in bed, somewhat staring but does answer with some delayed in responses. His oral intake is minimal and he responds that he is not hungry. He continues to refuse dialysis stating that he wants to talk with his OP web specialist Dr. Pena. He is guarded, answer most questions with I already talked about that catatonic like symptoms noted negativism, delayed response, staring at ceiling. no waxy flexibility decrease spontaneous speech but no complete mutism. Past Psychiatric History: Bipolar d/o ? psychosis . Hx M 5 admissions and NS in 1990, No Op providers currently? First psychotic/manic break in early . He has a prior admission at on the fall Review of Systems Review of Systems Constitutional : No Fever, No Chills, No Fatigue ENT/Mouth : No sore throat, No Rhinorrhea Eyes: No Eye Pain, No Swelling, No Redness Cardiovascular : No Chest Pain, No SOB, No Dyspnea on Exertion Respiratory : No Cough, No Sputum Gastrointestinal : No Nausea, No Vomiting, No Diarrhea, No abdominal Pain Genitourinary : No Dysuria, No Urinary Frequency, No Hematuria, Musculoskeletal : No joint pain, No Myalgias, No Joint Swelling Skin : No Skin Lesions, No rash Neuro : No Weakness, No Numbness, No Dizziness, no Headache Psych : No Anxiety/Panic, No Depression, no SI/HI All other systems reviewed and are negative Yes all other systems are reviewed and are negative and Unobtainable due to mental status [facility], [facility] Medical History Anemia Anemia Hypertension Bipolar disorder Dialysis patient Family History: Not known 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 Trauma History: Deferred Diagnostics Vital Signs (24Hr): Vital Signs - 24 hr 07/24/23 14:55 07/24/23 17:25 07/24/23 19:33 Temperature 97.6 F 97.7 F Pulse Rate 75 75 67 Respiratory Rate 16 18 17 Blood Pressure 177/97 H 160/102 H 158/84 H Pulse Oximetry 95 98 96 Oxygen Delivery Method Room Air Room Air Room Air 07/24/23 23:29 Temperature 97.0 F Pulse Rate 58 Respiratory Rate 18 Blood Pressure 176/90 H Pulse Oximetry 98 Oxygen Delivery Method Room Air BMI result Body Mass Index 26.3 Labs 07/24/23 11:37 07/24/23 11:37 Labs: Laboratory Results - last 48 hr 07/24/23 07/24/23 07/24/23 11:37 11:57 12:25 WBC 4.7 L RBC 3.22 L D Hgb 10.8 L D Hct 32.6 L D MCV 101.2 H MCH 33.5 H MCHC 33.1 RDW 14.7 Plt Count 171 D MPV 10.0 Immature Gran % (Auto) 0.4 Neut % (Auto) 71.7 Lymph % (Auto) 14.7 L Glynn % (Auto) 11.3 H Eos % (Auto) 1.5 Baso % (Auto) 0.4 Lymph # (Auto) 0.7 L Glynn # (Auto) 0.5 Eos # (Auto) 0.1 Baso # (Auto) 0.0 Abs Immat Gran (auto) 0.02 Absolute Neuts (auto) 3.4 Absolute Nucleated RBC 0.000 Nucleated RBC % (auto) 0.0 Sodium 143 Potassium 4.2 Chloride 101 Carbon Dioxide 23 Anion Gap 23 H BUN 70 H Creatinine 12.82 H* Estim Creat Clear Calc 5.8 Estimated GFR 4 Random Glucose 107 Calcium 10.3 H D Total Bilirubin 0.7 AST 16 ALT 14 Alkaline Phosphatase 70 Total Protein 7.5 Albumin 4.5 TSH 1.14 Urine Color Yellow Urine Appearance Clear Urine pH 8.5 Ur Specific [place] 1.010 Urine Protein 100 (2+) H Urine Glucose (UA) 250 H Urine Ketones Negative Urine Blood Small (1+) H Urine Nitrite Negative Ur Leukocyte Esterase Negative Urine RBC 0-2 Urine WBC 0-5 Ur Squamous Epith Cells 0-2 Urine Bacteria None Seen Hyaline Casts 0-2 Valproic Acid < 12.5 L Influenza Type A (PCR) NEGATIVE Influenza Type B (PCR) NEGATIVE RSV RNA Qual (PCR) NEGATIVE SARS-CoV-2 RNA (RT-PCR) NEGATIVE Imaging Radiology Impressions: ITS Impressions Chest X-Ray 07/24/23 13:15 IMPRESSION: 1. No pneumonia. 2. Soft tissue density along the contour of the descending thoracic aorta. Differential diagnosis includes mass and aneurysm. CT scan should be considered for further evaluation. Mental Status Exam Mental Status Exam Narrative: appearance: wearing hospital gown, noticeable bilat tremors, in NAD behavior: guarded Psychomotor: some retardation noted Speech: delayed in response, minimally spontaneous, mumbling at times TP: wanting to go home TC: feeling well, in disbelief about needing dialysis and urgency of this. Mood: good Affect: constricted SI: adamantly denies HI: none VH/AH: internally preoccupied delusions:not reported during this admission, but appears underlying paranoia Insight/judgment: impaired x 2 memory/cog: alert, oriented to place, month, not situation, poor attention Medications Medications Current Medications Acetaminophen (Acetaminophen 325 Mg Tablet) 650 mg PO Q6H PRN PRN Reason: Pain, Mild (Pain Scale 1-3) Aripiprazole (Aripiprazole 10 Mg Tablet) 10 mg PO DAILY [facility] Last Admin: 07/25/23 10:08 Dose: Not Given Aripiprazole (Aripiprazole 5 Mg Tablet) 5 mg PO DAILY [facility] Last Admin: 07/25/23 10:08 Dose: Not Given Aspirin (Aspirin Enteric Coated 81 Mg Tablet.Dr) 81 mg PO DAILY [facility] Last Admin: 07/25/23 10:08 Dose: Not Given Divalproex Sodium (Divalproex Sodium Er 500 Mg Tab.Er.24h) 1,000 mg PO BEDTIME [facility] Last Admin: 07/24/23 20:08 Dose: Not Given Haloperidol Lactate (Haloperidol Lactate 5 Mg/Ml Vial) 2.5 mg IM Q4H PRN PRN Reason: anxiety/restlessness Heparin Sodium (Porcine) (Heparin Sodium,Porcine 5,000 Unit/Ml Vial) 5,000 unit SUBCUT Q12H [facility] Last Admin: 07/25/23 14:23 Dose: Not Given Multivitamins/Vitamin C (Multivitamin Tablet) 1 tab PO DAILY [facility] Last Admin: 07/25/23 10:09 Dose: Not Given Ondansetron HCl (Ondansetron Hcl 4 Mg/2 Ml Vial) 4 mg IVPUSH Q8H PRN PRN Reason: Nausea and Vomiting Senna (Sennosides 8.6 Mg Tablet) 17.2 mg PO BEDTIME PRN PRN Reason: Constipation Sevelamer Carbonate (Sevelamer Carbonate Tablet 800 Mg Tablet) 800 mg PO TID@0800,1200,1800 [facility] Last Admin: 07/25/23 12:50 Dose: Not Given Sodium Chloride (0.9 % Sodium Chloride Flush 3 Ml Syringe) 3 ml IVFLUSH QSHIFT [facility] Last Admin: 07/25/23 09:14 Dose: Not Given Allergies Allergies Allergy/AdvReac Type Severity Reaction Status Date / Time No Known Allergies Allergy Verified 07/24/23 11:18 Assessment & Plan Assessment & Plan (1) Schizoaffective disorder, bipolar type: Status: Acute Code(s): F25.0 - Schizoaffective disorder, bipolar type Plan 68-year-old male with history of ESRD on HD MWF, bipolar disorder, schizoaffective disorder, chronic macrocytic anemia presents to the ED on section 12 via EMS due to noncompliance with medications. The patient is a limited historian but states that he has not been taking his psychiatric medications due to side effects. He states they make him feel lightheaded and give him headaches. He apparently has also been refusing dialysis today. He was last dialyzed on Monday and follows with Dr. Pena and Nephrology. States that he is agreeable to dialysis but not today. States he is talked to Dr. Pena about changing his dialysis schedule versus stopping dialysis altogether though he is uninformed on the effects of stopping HD. He will be admitted for HD due to ESRD with further psychiatric evaluation. #ESRD on HD MWF schedule, Nephrology consult. patient still refusing dialysis. previous admission Haldol was used to take him to dialysis. no urgency in blood work to do HD now. follow [facility] PSYCHIATRY: 07/25/23: 1. Please given depakote IV, pt can't refuse tx as he does not have capacity and HCP has been affirmed. 2. since refusing oral antipsychotic can do low dose olanzapine 2.5mg IM or IV BID. No over medication with antipsychotic as it may worsen catatonia. Will add olanzapine 5mg IV q6h prn agitation. Will also add ativan 1mg q6h prn agitation. will schedule low dose ativan 0.5mg IV TID- monitor oversedation or increase confusion. HCP invoked by court order per ED provider/psychiatry. HCP is pt , Sujata Holcomb [phone] Total time managing care of this patient today ____ minutes.
--- NOTE | 2023-07-25 17:52 | PC.NURSE ---
Patient continues to lay in bed. Refusing all assessments, medications, meals, vital signs, and diagnostic tests. Slow to respond to questions, but responds appropriately. Dr. Guillory spoke with patient at bedside and is aware of current status. Respirations even and unlabored, rate of 18/min. No signs or symptoms of distress present.
--- NOTE | 2023-07-25 20:40 | PC.NURSE ---
Addendum entered by David Dueñas RN 07/25/23 22:42: scheduled IM zyprexa administered. reassessment after one hour shows no change in level of agitation or cooperation with care. sitting quietly in bed now with eyes open. RR 18, even and unlabored. still refusing vitals. MD aware. call barrera in reach Original Note: Pt alert and oriented to self. arousable to name. semi fowlers in bed, awake and calm. no complaints or current signs of distress. denies SI. wearing green ligature gown. refusing vital signs and scheduled medications. pt quoted saying I am fine. I am not doing anything for you until I talk to a doctor tomorrow. notified. call barrera in reach. plan of care ongoing
[2023-07-25] MEDS: OLANZapine 10 MG VIAL 2.5 MG IM (22:04)
[2023-07-25 23:46] VITALS: RESP 18
[2023-07-25 23:49] VITALS: RESP 18
--- NOTE | 2023-07-26 07:31 | PM.CNNEP ---
History of Present Illness Reason for Consult Consult date: 07/26/23 Chief Complaint Chief complaint: esrd dialysis History of Present Illness Narrative: 68 year old patient with history of ESRD admitted to the hospital refusing to take his medications and also refusing dialysis. At the time of the consultation he denies chest pain, shortness of breath, nausea, vomiting or diarrhea. His last dialysis was last Monday. Review of Systems Review of Systems 10 points ROS negative except for pertinent i HPI PMFSH Past Medical History Medical History Anemia Anemia Hypertension Bipolar disorder Dialysis patient Social History Social History Household Members: Spouse Housing: House Do you presently have visiting nurse or other home services: No Unable to assess alcohol history related to: Refusing to respond Alcohol intake: never Comment: 1:1 sitter Patient Tobacco Use Status: Never used Tobacco Advance Directives Date on File: 10/11/22 service: No Current occupational status: disabled Sexual orientation: Straight/Heterosexual Meds Allergies Allergy/AdvReac Type Severity Reaction Status Date / Time No Known Allergies Allergy Verified 07/24/23 11:18 Active Medications: Current Medications Acetaminophen (Acetaminophen 325 Mg Tablet) 650 mg PO Q6H PRN PRN Reason: Pain, Mild (Pain Scale 1-3) Aripiprazole (Aripiprazole 10 Mg Tablet) 10 mg PO DAILY [facility] Last Admin: 07/25/23 10:08 Dose: Not Given Aripiprazole (Aripiprazole 5 Mg Tablet) 5 mg PO DAILY [facility] Last Admin: 07/25/23 10:08 Dose: Not Given Aspirin (Aspirin Enteric Coated 81 Mg Tablet.Dr) 81 mg PO DAILY [facility] Last Admin: 07/25/23 10:08 Dose: Not Given Haloperidol Lactate (Haloperidol Lactate 5 Mg/Ml Vial) 2.5 mg IM Q4H PRN PRN Reason: anxiety/restlessness Heparin Sodium (Porcine) (Heparin Sodium,Porcine 5,000 Unit/Ml Vial) 5,000 unit SUBCUT Q12H [facility] Last Admin: 07/26/23 05:05 Dose: Not Given Valproic Acid 1,000 mg/ (Dextrose) 60 mls @ 60 mls/hr IV BEDTIME [facility] Lorazepam (Lorazepam 2 Mg/Ml Vial) 1 mg IVPUSH Q6H PRN PRN Reason: anxiety/restlessness Multivitamins/Vitamin C (Multivitamin Tablet) 1 tab PO DAILY [facility] Last Admin: 07/25/23 10:09 Dose: Not Given Olanzapine (Olanzapine 10 Mg Vial) 2.5 mg IM BID [facility] Last Admin: 07/25/23 22:04 Dose: 2.5 mg Ondansetron HCl (Ondansetron Hcl 4 Mg/2 Ml Vial) 4 mg IVPUSH Q8H PRN PRN Reason: Nausea and Vomiting Senna (Sennosides 8.6 Mg Tablet) 17.2 mg PO BEDTIME PRN PRN Reason: Constipation Sevelamer Carbonate (Sevelamer Carbonate Tablet 800 Mg Tablet) 800 mg PO TID@0800,1200,1800 [facility] Last Admin: 07/25/23 17:19 Dose: Not Given Sodium Chloride (0.9 % Sodium Chloride Flush 3 Ml Syringe) 3 ml IVFLUSH QSHIFT [facility] Last Admin: 07/25/23 23:35 Dose: Not Given Home Medications ?Medication ?Instructions ?Recorded ?Confirmed ?Last Taken ?Type aripiprazole 5 mg tablet 5 mg PO DAILY 07/24/23 07/24/23 Unknown History benztropine 1 mg tablet 2 mg PO BID 07/24/23 07/24/23 Unknown History sevelamer carbonate 800 mg tablet 800 mg PO TID@0800,1200,1800 07/24/23 07/24/23 Unknown History vitamin B complex and vitamin C 1 cap PO DAILY 07/24/23 07/24/23 Unknown History no.20-folic acid 1 mg capsule (Renal Caps) Physical Exam Vital Signs: Last Vital Signs Temp 97.0 F 07/24/23 23:29 Pulse 58 07/24/23 23:29 Resp 18 07/25/23 23:49 BP 176/90 H 07/24/23 23:29 Pulse Ox 98 07/24/23 23:29 O2 Del Method Room Air 07/24/23 23:29 BMI result Body Mass Index 26.3 Const General: no acute distress HEENT Head: Yes normocephalic and Yes atraumatic Neck Neck: Yes supple Resp Auscultation: clear to auscultation bilaterally Cardio Heart sounds: S1 normal heart sound present and S2 normal heart sound present GI Palpation (GI): Soft to palpation and nontender Extrem Left upper extremity: normal to inspection Results Lab Results 07/24/23 11:37 07/24/23 11:37 Lab results: Chemistry 07/24/23 11:37 Sodium 143 Potassium 4.2 Carbon Dioxide 23 BUN 70 H Creatinine 12.82 H* Calcium 10.3 H D Hematology 07/24/23 11:37 WBC 4.7 L Hgb 10.8 L D Plt Count 171 D Urinalysis 07/24/23 11:37 Urine Color Yellow Urine Appearance Clear Urine pH 8.5 Ur Specific [place] 1.010 Urine Protein 100 (2+) H Urine Glucose (UA) 250 H Urine Ketones Negative Urine Blood Small (1+) H Urine Nitrite Negative Ur Leukocyte Esterase Negative Urine RBC 0-2 Urine WBC 0-5 Ur Squamous Epith Cells 0-2 Hyaline Casts 0-2 Assessment and Plan (1) ESRD (end stage renal disease): Status: Acute (2) Anemia: Status: Acute Plan ESRD on HD at [facility] followed by Dr Pena known schizoaffective disorder presented to the ED due to noncompliance with medications last HD last Monday nehrogenic anemia REC psych needs to come up with a better therapeutic approach HD when patient agreeable (tried to convince him this morning) no need for ERIKA renal diet Yissel goodwin Procedures Date of Service Date of Service: 07/26/23
[2023-07-26] MEDS: LORazepam 2 MG/ML VIAL IM ×2 (10:26→11:43)
[2023-07-26] MEDS: OLANZapine 10 MG VIAL 5 MG IM ×2 (10:26→11:26)
--- NOTE | 2023-07-26 12:19 | MHC.CM.PN ---
Addendum entered by Myriam Mitchell 07/26/23 12:59: CM SPOKE WITH LEONID WHO INFORMS CM SHE WILL BE STAYING WITH FAMILY OUT OF STATE FOR A FEW DAYS AND TO PLEASE USE CELL PHONE # [phone]. REGISTRATION NOTIFIED TO ADD # TO DEMOGRAPHICS. Original Note: EMR REVIEWED AND PER MD ROUNDS, PT WILL NEED TO UNDERGO HD/NOT MEDICALLY CLEARED FOR DC . CM WILL CONTINUE TO FOLLOW FOR DC PLAN.
--- NOTE | 2023-07-26 14:44 | HO.PM.IMPN ---
Subjective Subjective Date of Service: 07/26/23 Interval History: seen and evaluated refusing medications refusing dialysis Tried to medicate him and do dialysis but he was adamant not to Not eating much, almost at all Physical Exam Vital Signs: Vital Signs: Last Vital Signs Temp 97.0 F 07/24/23 23:29 Pulse 58 07/24/23 23:29 Resp 18 07/25/23 23:49 BP 176/90 H 07/24/23 23:29 Pulse Ox 98 07/24/23 23:29 O2 Del Method Room Air 07/24/23 23:29 BMI result Body Mass Index 26.3 Const: Other: Constitutional : Awake, interactive, not in distress Neck : Normal inspection, Supple Cardiovascular : RRR, no JVP, no lower extremity edema Respiratory : good bilateral air entry, no crackles, wheezes or rhonchi Gastrointestinal: soft, lax, Normal bowel sounds, Non tender Skin : Warm, Dry Neurological : Alert & oriented to self and place, No focal deficit , mild resting tremors bilaterally Psych: thoughts mixed, uneasy, argumentative with lack of insight Objective Data Active Medications Acetaminophen (Acetaminophen 325 Mg Tablet) 650 mg PO Q6H PRN PRN Reason: Pain, Mild (Pain Scale 1-3) Aripiprazole (Aripiprazole 10 Mg Tablet) 10 mg PO DAILY [facility] Last Admin: 07/26/23 09:52 Dose: Not Given Documented By: JESS Non-Admin Reason: Patient Refused Aripiprazole (Aripiprazole 5 Mg Tablet) 5 mg PO DAILY [facility] Last Admin: 07/26/23 09:52 Dose: Not Given Documented By: JESS Non-Admin Reason: Patient Refused Aspirin (Aspirin Enteric Coated 81 Mg Tablet.) 81 mg PO DAILY [facility] Last Admin: 07/26/23 09:52 Dose: Not Given Documented By: JESS Non-Admin Reason: Patient Refused Heparin Sodium (Porcine) (Heparin Sodium,Porcine 5,000 Unit/Ml Vial) 5,000 unit SUBCUT Q12H [facility] Last Admin: 07/26/23 05:05 Dose: Not Given Documented By: BHAKTI Non-Admin Reason: Patient Refused Valproic Acid 1,000 mg/ (Dextrose) 60 mls @ 60 mls/hr IV DAILY [facility] Lorazepam (Lorazepam 2 Mg/Ml Vial) 1 mg IVPUSH Q6H PRN PRN Reason: anxiety/restlessness Lorazepam (Lorazepam 2 Mg/Ml Vial) 1 mg IM TID [facility] Lorazepam (Lorazepam 2 Mg/Ml Vial) 2 mg IM ONCE PRN PRN Reason: anxiety/restlessness Last Admin: 07/26/23 11:43 Dose: 2 mg Documented By: JESS Multivitamins/Vitamin C (Multivitamin Tablet) 1 tab PO DAILY [facility] Last Admin: 07/26/23 09:52 Dose: Not Given Documented By: JESS Non-Admin Reason: Patient Refused Olanzapine (Olanzapine 10 Mg Vial) 2.5 mg IM BID [facility] Olanzapine (Olanzapine 10 Mg Vial) 5 mg IM Q8H PRN PRN Reason: Anxiety/agitation Ondansetron HCl (Ondansetron Hcl 4 Mg/2 Ml Vial) 4 mg IVPUSH Q8H PRN PRN Reason: Nausea and Vomiting Senna (Sennosides 8.6 Mg Tablet) 17.2 mg PO BEDTIME PRN PRN Reason: Constipation Sevelamer Carbonate (Sevelamer Carbonate Tablet 800 Mg Tablet) 800 mg PO TID@0800,1200,1800 [facility] Last Admin: 07/26/23 12:14 Dose: Not Given Documented By: JESS Non-Admin Reason: Patient Refused Sodium Chloride (0.9 % Sodium Chloride Flush 3 Ml Syringe) 3 ml IVFLUSH QSHIFT [facility] Last Admin: 07/26/23 09:51 Dose: Not Given Documented By: JESS Non-Admin Reason: Patient Refused Labs 07/24/23 11:37 07/24/23 11:37 Assessment and Plan (1) Noncompliance by declining intervention or support: Status: Acute (2) ESRD needing dialysis: Status: Acute Plan 68-year-old male with history of ESRD on HD MWF, bipolar disorder, schizoaffective disorder, chronic macrocytic anemia presents to the ED on section 12 via EMS due to noncompliance with medications. The patient is a limited historian but states that he has not been taking his psychiatric medications due to side effects. He states they make him feel lightheaded and give him headaches. He apparently has also been refusing dialysis today. He was last dialyzed on Monday and follows with Dr. Pena and Nephrology. States that he is agreeable to dialysis but not today. States he is talked to Dr. Pena about changing his dialysis schedule versus stopping dialysis altogether though he is uninformed on the effects of stopping HD. He will be admitted for HD due to ESRD with further psychiatric evaluation. #ESRD on HD MWF schedule, Nephrology spoke to the patient and patient still refusing dialysis. previous admission Haldol was used to take him to dialysis. we tried Zyprexa 10 mg and Ativan 4 mg with no success Will give it another try tomorrow morning Psych following no urgency in blood work to do HD on admission, refusing to repeat labs #Schizoaffective disorder, bipolar type noncompliant with meds. refusing depakote and abilify for now. IV Depakote until he agrees to take PO #Soft tissue abnormality ascending aorta CXR reported possible mass\aneurysm CTA chest pending, will do it when he is more accepting, to arrange with dialysis #Systolic ejection murmur echo pending #Chronic macrocytic anemia vitamin b12 and folic acid levels pending DVT prophylaxis- heparin Full code HCP invoked by court order per ED provider/psychiatry. HCP is pt , Sujata Holcomb [phone] (Cellphone) Pt requires inpt stay overnight for HD due to esrd, starting home medicaitons, noncompliant with schedule and requiring further psychiatric evaluation wtih medication noncompliance and erratic behavior which can not safely be performed on outpt basis. Quality Stroke Does the patient have a stroke diagnosis?: No VTE Prior VTE?: No VTE Risk Level:: Medical - moderate - high VTE Device Contraindication: Treatment Not Indicated VTE Drug Contraindication: N/A - Med Ordered
[2023-07-26] MEDS: 0.9 % Sodium Chloride Flush 3 ML SYRINGE IVFLUSH (18:17)
[2023-07-26 22:06] VITALS: BP 140/77; PULSE 62; RESP 20; TEMP 35.9; O2SAT 98
[2023-07-26] MEDS: OLANZapine 10 MG VIAL 2.5 MG IM (22:20)
[2023-07-26] MEDS: LORazepam 2 MG/ML VIAL 1 MG IM (22:21)
--- NOTE | 2023-07-26 23:32 | PC.NURSE ---
Patient cooperative and calm later this evening,refused v/s for PRETZEL TWISTER earlier but agreed for RN to check his vitals,scheduled medication administered ,patient pleasant and cooperative
[2023-07-27] MEDS: Heparin Sodium,Porcine 5,000 UNIT/ML VIAL 5000 UNIT SUBCUT (03:43)
[2023-07-27] MEDS: 0.9 % Sodium Chloride Flush 3 ML SYRINGE IVFLUSH ×2 (03:44→09:38)
[2023-07-27 08:00] VITALS: BP 180/96; PULSE 60; RESP 18; TEMP 36; O2SAT 95
[2023-07-27 08:19] LABS: Ammonia 32 umol/L (13-55)
[2023-07-27 08:43] LABS: Albumin Level 3.8 g/dL (3.5-5.0); Anion Gap 23 (12-20); Blood Urea Nitrogen 92 mg/dL (9-16); Calcium 9.8 mg/dL (8.4-10.2); Carbon Dioxide 20 mmol/L (22-29); Chloride 104 mmol/L (96-108); Glucose Random 100 mg/dL (60-115); Phosphorus 9.7 mg/dL (2.7-4.5); Potassium 4.5 mmol/L (3.3-5.1); Sodium 142 mmol/L (135-145)
[2023-07-27 08:45] LABS: Estimated Glomerular Filt Rate 3
[2023-07-27] MEDS: LORazepam 2 MG/ML VIAL 1 MG IV (09:37)
[2023-07-27] MEDS: OLANZapine 10 MG VIAL 2.5 MG IM (09:41)
--- NOTE | 2023-07-27 10:47 | PM.PNNEP ---
Subjective Subjective Date of Service: 07/27/23 Interval history: seen and evaluated agreed for dialysis today - wanted 2 hrs - convinced him to get the full 4 hr treatment eating better today per nurse refusing medications still - counselled him to take phos binders- he tentatilvely agreed Physical Exam Vital Signs: Vital Signs: Last Vital Signs Temp 96.8 F 07/27/23 08:00 Pulse 60 07/27/23 08:00 Resp 18 07/27/23 08:00 BP 180/96 H 07/27/23 08:00 Pulse Ox 95 07/27/23 08:00 O2 Del Method Room Air 07/27/23 08:00 BMI result Body Mass Index 26.3 cvs: s1s2 RS; CTA- comfortable - lying flat in bed ABd; soft L Ue AVF with thrill Objective Data Labs 07/24/23 11:37 07/27/23 08:04 Labs: Laboratory Results - last 24 hr 07/27/23 07/27/23 07:34 08:04 Hold Purple Top SEE NOTE Sodium Cancelled 142 Potassium Cancelled 4.5 Chloride Cancelled 104 Carbon Dioxide Cancelled 20 L Anion Gap Cancelled 23 H BUN Cancelled 92 H Creatinine Cancelled 18.64 H* Estim Creat Clear Calc Cancelled 4.0 Estimated GFR Cancelled 3 Random Glucose Cancelled 100 Calcium Cancelled 9.8 Phosphorus 9.7 H Ammonia 32 Albumin 3.8 Procedures Date of Service Date of Service: 07/27/23 Assessment & Plan Assessment and plan (1) ESRD needing dialysis: Status: Acute (2) Schizoaffective disorder, bipolar type: Status: Acute Plan followed [facility] known schizoaffective disorder presented to the ED due to noncompliance with medications last HD last Monday nehrogenic anemia K of 4.5 today REC psych management HD today as patient agreeable no need for ERIKA renal diet P binder- phos 9.7 ( 07/26) prn bp meds if pt will agree to take Time Spent With Patient Time: Total time managing care of this patient today ____ minutes. Progress Note: Quality Stroke Does the patient have a stroke diagnosis?: No
--- NOTE | 2023-07-27 11:20 | P.PNIM_ITS ---
Subjective Subjective Date of Service: 07/27/23 Interval History: now agreeable to HD denies N/V Review of Systems Review of Systems: Yes all other systems are reviewed and are negative Physical Exam 2 Vital Signs: Vital Signs: Last Vital Signs Temp 96.8 F 07/27/23 08:00 Pulse 60 07/27/23 08:00 Resp 18 07/27/23 08:00 BP 180/96 H 07/27/23 08:00 Pulse Ox 95 07/27/23 08:00 O2 Del Method Room Air 07/27/23 08:00 BMI result Body Mass Index 26.3 Gen: in no acute distress HEENT: sclera anicteric, moist mucus membranes Neck: supple Lungs: clear to auscultation bilaterally Heart: regular rate and rhythm, systolic ejection murmur Abd: soft, non-tender, non-distended Ext: no edema, LUE fistula with palpable thrill Skin: warm/well-perfused Neuro: alert and oriented to self + place, no focal findings Psych: impaired insight Objective Data Active Medications Acetaminophen (Acetaminophen 325 Mg Tablet) 650 mg PO Q6H PRN PRN Reason: Pain, Mild (Pain Scale 1-3) Aripiprazole (Aripiprazole 10 Mg Tablet) 10 mg PO DAILY [facility] Last Admin: 07/27/23 09:38 Dose: Not Given Documented By: JESS Non-Admin Reason: Patient Refused Aripiprazole (Aripiprazole 5 Mg Tablet) 5 mg PO DAILY [facility] Last Admin: 07/27/23 09:38 Dose: Not Given Documented By: JESS Non-Admin Reason: Patient Refused Aspirin (Aspirin Enteric Coated 81 Mg Tablet.) 81 mg PO DAILY [facility] Last Admin: 07/27/23 09:38 Dose: Not Given Documented By: JESS Non-Admin Reason: Patient Refused Heparin Sodium (Porcine) (Heparin Sodium,Porcine 5,000 Unit/Ml Vial) 5,000 unit SUBCUT Q12H [facility] Last Admin: 07/27/23 03:43 Dose: 5,000 unit Documented By: ANTSULMA Valproic Acid 1,000 mg/ (Dextrose) 60 mls @ 60 mls/hr IV DAILY [facility] Lorazepam (Lorazepam 2 Mg/Ml Vial) 1 mg IVPUSH Q6H PRN PRN Reason: anxiety/restlessness Lorazepam (Lorazepam 2 Mg/Ml Vial) 2 mg IM ONCE PRN PRN Reason: anxiety/restlessness Last Admin: 07/26/23 11:43 Dose: 2 mg Documented By: JESS Lorazepam (Lorazepam 2 Mg/Ml Vial) 1 mg IV TID [facility] Last Admin: 07/27/23 09:37 Dose: 1 mg Documented By: JESS Multivitamins/Vitamin C (Multivitamin Tablet) 1 tab PO DAILY [facility] Last Admin: 07/27/23 09:45 Dose: Not Given Documented By: JESS Non-Admin Reason: Patient Refused Olanzapine (Olanzapine 10 Mg Vial) 2.5 mg IM BID [facility] Last Admin: 07/27/23 09:41 Dose: 2.5 mg Documented By: JESS Olanzapine (Olanzapine 10 Mg Vial) 5 mg IM Q8H PRN PRN Reason: Anxiety/agitation Ondansetron HCl (Ondansetron Hcl 4 Mg/2 Ml Vial) 4 mg IVPUSH Q8H PRN PRN Reason: Nausea and Vomiting Senna (Sennosides 8.6 Mg Tablet) 17.2 mg PO BEDTIME PRN PRN Reason: Constipation Sevelamer Carbonate (Sevelamer Carbonate Tablet 800 Mg Tablet) 800 mg PO TID@0800,1200,1800 [facility] Last Admin: 07/27/23 09:38 Dose: Not Given Documented By: JESS Non-Admin Reason: Patient Refused Sodium Chloride (0.9 % Sodium Chloride Flush 3 Ml Syringe) 3 ml IVFLUSH QSHIFT [facility] Last Admin: 07/27/23 09:38 Dose: 3 ml Documented By: JESS Labs 07/24/23 11:37 07/27/23 08:04 Labs: Laboratory Results - last 24 hr 07/27/23 07/27/23 07:34 08:04 Hold Purple Top SEE NOTE Anion Gap Cancelled 23 H Estim Creat Clear Calc Cancelled 4.0 Estimated GFR Cancelled 3 Random Glucose Cancelled 100 Calcium Cancelled 9.8 Phosphorus 9.7 H Ammonia 32 Albumin 3.8 Assessment and Plan (1) Noncompliance by declining intervention or support: Status: Acute (2) ESRD needing dialysis: Status: Acute Plan d4 68yo M with ESRD on HD MWF, bipolar schizoaffective disorder, chronic anemia presented to ED on Sec 12 via EMS due to noncompliance with medications + refusing HD ESRD on HD - agreeable to HD today - continue sevelamer nonadherence due to psychiatric condition [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 - CTA chest eventually when pt agrees, coordinate with HD systolic ejection murmur - TTE pending chronic macrocytic anemia - likely due to ESRD but B12/FA levels pending VTE ppx: UFH dispo: likely will need inpt psychiatry In my clinical judgment, the patient requires continued inpatient hospitalization for the following reasons: HD, psychiatric care HCP invoked by court order per ED provider/psychiatry. HCP is pt , Sujata Holcomb [phone] (cellphone) Total time managing care of this patient today: 40 minutes. Quality Stroke Does the patient have a stroke diagnosis?: No VTE Prior VTE?: No VTE Risk Level:: Medical - moderate - high VTE Device Contraindication: Treatment Not Indicated VTE Drug Contraindication: N/A - Med Ordered
[2023-07-27 17:42] VITALS: BP 139/72; PULSE 54; RESP 20; TEMP 36.1; O2SAT 99
--- NOTE | 2023-07-27 17:53 | PC.NURSE ---
Pt returned from dialysis with noticeable mood change - not as cheerful or cooperative, seems down. Pt lost IV access earlier in the day. This RN attempted to place another IV but pt refusing at this time. Refusing oral medications as well. MD made aware. Plan of care ongoing.
[2023-07-27 23:33] VITALS: BP 159/83; PULSE 71; RESP 16; TEMP 36; O2SAT 96
--- NOTE | 2023-07-28 04:20 | PC.NURSE ---
7p-3a patient refusing care, assessments, medications. Patient is uncooperative, refusing care, hospitalist notified.
--- NOTE | 2023-07-28 11:19 | MHC.CM.PN ---
Addendum entered by Pascale Barillas RN 07/28/23 13:13: Per MD patient to xfer to [facility] Original Note: Per MD rounds patient is not medically cleared for dc. Will likely require I/P psych when medically cleared. CM will continue to follow.
--- NOTE | 2023-07-28 12:03 | HO.PM.IMPN ---
Subjective Subjective Date of Service: 07/28/23 Interval History: got HD yesterday but denied that he did IV fell out and pt refused replacement refusing all meds, IM and PO Review of Systems Review of Systems: Yes all other systems are reviewed and are negative Physical Exam Vital Signs: Vital Signs: Last Vital Signs Temp 96.8 F 07/27/23 23:33 Pulse 71 07/27/23 23:33 Resp 16 07/27/23 23:33 BP 159/83 H 07/27/23 23:33 Pulse Ox 96 07/27/23 23:33 O2 Del Method Room Air 07/27/23 23:33 BMI result Body Mass Index 26.3 Gen: in no acute distress HEENT: sclera anicteric, moist mucus membranes Neck: supple Lungs: clear to auscultation bilaterally Heart: regular rate and rhythm, systolic ejection murmur Abd: soft, non-tender, non-distended Ext: no edema, LUE fistula with palpable thrill Skin: warm/well-perfused Neuro: alert and oriented to self + place, no focal findings Psych: impaired insight Objective Data Active Medications Acetaminophen (Acetaminophen 325 Mg Tablet) 650 mg PO Q6H PRN PRN Reason: Pain, Mild (Pain Scale 1-3) Aripiprazole (Aripiprazole 10 Mg Tablet) 10 mg PO DAILY [facility] Last Admin: 07/28/23 09:46 Dose: Not Given Documented By: KALI Non-Admin Reason: Patient Refused Aripiprazole (Aripiprazole 5 Mg Tablet) 5 mg PO DAILY [facility] Last Admin: 07/28/23 09:46 Dose: Not Given Documented By: KALI Non-Admin Reason: Patient Refused Aspirin (Aspirin Enteric Coated 81 Mg Tablet.) 81 mg PO DAILY [facility] Last Admin: 07/28/23 09:47 Dose: Not Given Documented By: KALI Non-Admin Reason: Patient Refused Heparin Sodium (Porcine) (Heparin Sodium,Porcine 5,000 Unit/Ml Vial) 5,000 unit SUBCUT Q12H [facility] Last Admin: 07/28/23 04:58 Dose: Not Given Documented By: MARTHA Non-Admin Reason: Patient Refused Valproic Acid 1,000 mg/ (Dextrose) 60 mls @ 60 mls/hr IV DAILY [facility] Last Admin: 07/28/23 09:48 Dose: Not Given Documented By: KALI Non-Admin Reason: pt. refused IV access Lorazepam (Lorazepam 2 Mg/Ml Vial) 1 mg IVPUSH Q6H PRN PRN Reason: anxiety/restlessness Lorazepam (Lorazepam 2 Mg/Ml Vial) 2 mg IM ONCE PRN PRN Reason: anxiety/restlessness Last Admin: 07/26/23 11:43 Dose: 2 mg Documented By: JESS Lorazepam (Lorazepam 2 Mg/Ml Vial) 1 mg IV TID [facility] Last Admin: 07/28/23 09:47 Dose: Not Given Documented By: KALI Non-Admin Reason: pt. refused IV access. Multivitamins/Vitamin C (Multivitamin Tablet) 1 tab PO DAILY [facility] Last Admin: 07/28/23 09:47 Dose: Not Given Documented By: KALI Non-Admin Reason: Patient Refused Olanzapine (Olanzapine 10 Mg Vial) 2.5 mg IM BID [facility] Last Admin: 07/28/23 10:25 Dose: Not Given Documented By: KALI Non-Admin Reason: pt. refused, MD aware Olanzapine (Olanzapine 10 Mg Vial) 5 mg IM Q8H PRN PRN Reason: Anxiety/agitation Ondansetron HCl (Ondansetron Hcl 4 Mg/2 Ml Vial) 4 mg IVPUSH Q8H PRN PRN Reason: Nausea and Vomiting Senna (Sennosides 8.6 Mg Tablet) 17.2 mg PO BEDTIME PRN PRN Reason: Constipation Sevelamer Carbonate (Sevelamer Carbonate Tablet 800 Mg Tablet) 800 mg PO TID@0800,1200,1800 [facility] Last Admin: 07/28/23 11:53 Dose: Not Given Documented By: KALI Non-Admin Reason: Patient Refused Sodium Chloride (0.9 % Sodium Chloride Flush 3 Ml Syringe) 3 ml IVFLUSH QSHIFT [facility] Last Admin: 07/28/23 09:46 Dose: Not Given Documented By: KALI Non-Admin Reason: No Access Labs 07/24/23 11:37 07/27/23 08:04 Assessment and Plan (1) Noncompliance by declining intervention or support: Status: Acute (2) ESRD needing dialysis: Status: Acute Plan d4 68yo M with ESRD on HD MWF, bipolar schizoaffective disorder, chronic anemia presented to ED on Sec 12 via EMS due to noncompliance with medications + refusing HD ESRD on HD hyperphosphatemia - got HD 07/27/23 but now refusing again; also refusing labs - continue sevelamer nonadherence due to psychiatric condition [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 - CTA chest eventually when pt agrees, coordinate with HD systolic ejection murmur - TTE pending chronic macrocytic anemia - likely due to ESRD but B12/FA levels pending VTE ppx: UFH dispo: will need inpt psychiatry In my clinical judgment, the patient requires continued inpatient hospitalization for the following reasons: HD, psychiatric care HCP invoked by court order per ED provider/psychiatry. HCP is pt , Sujata Holcomb [phone] (cellphone) Total time managing care of this patient today: 35 minutes. Quality Stroke Does the patient have a stroke diagnosis?: No VTE Prior VTE?: No VTE Risk Level:: Medical - moderate - high VTE Device Contraindication: Treatment Not Indicated VTE Drug Contraindication: N/A - Med Ordered
[2023-07-28 15:33] VITALS: BP 142/80; PULSE 75; RESP 18; TEMP 36.6; O2SAT 96
--- NOTE | 2023-07-28 16:37 | PM.DS ---
DS: Providers Provider Date of Service: 07/28/23 Date of admission: 07/24/23 14:53 Date of discharge: 07/28/23 Primary care physician: Unknown Physician Consults: 07/24/23 12:18 Consult to Psychiatry Stat Consulting Provider: [facility] Reason for consultation: ? capacity able to invoke HCP who is his Has provider been notified: No 07/24/23 14:57 Consult to Nephrology Routine Consulting Provider: [facility] Reason for consultation: esrd dialysis 07/24/23 15:02 Consult to Psychiatry Routine Consulting Provider: [facility] Reason for consultation: bipolar, noncompliance with meds 07/28/23 13:09 Consult to Care Team Stat Comment: Reason for consultation: transfer to [facility] for antispychotic administration 07/28/23 16:34 Consult to Care Team Stat Comment: Reason for consultation: Trasnfer to [facility]. Nieves Sanchez accepting DS: Diagnosis Discharge Diagnosis (1) Noncompliance by declining intervention or support: Status: Acute (2) ESRD needing dialysis: Status: Acute (3) Schizoaffective disorder, bipolar type: Status: Acute DS: Summary Hospital Course Hospital Course: From the history and physical by the admitting hospitalist, CARLOS Moody, 07/24/23: 68-year-old male with history of ESRD on HD MWF, bipolar disorder, schizoaffective disorder, chronic macrocytic anemia presents to the ED on section 12 via EMS due to noncompliance with medications. The patient is a limited historian but states that he has not been taking his psychiatric medications due to side effects. He states they make him feel lightheaded and give him headaches. He apparently has also been refusing dialysis today. He was last dialyzed on Monday and follows with Dr. Pena and Nephrology. States that he is agreeable to dialysis but not today. States he is talked to Dr. Pena about changing his dialysis schedule versus stopping dialysis altogether though he is uninformed on the effects of stopping HD. Apparently the patient drove to [place] on monday morning by himself and his saw an rafael transaction there and called the police. The patient reportedly returned on his own this am. NO si/hi. The patient refuses to elaborate on why he drove to [place] to this author. HCP is permanently invoked and there is a court authorization for this. He has been admitted psychiatrically and has a history of medication and HD refusal. In the ED, pt hypertensive to 177/97. Hematology studies baseline. Creatinine 12.82, BUN 70, electrolyte levels normal. Urinalysis with 2+ protein, glucose, otherwise unremarkable. Valproic acid level <12.5. Negative for influenza, COVID-19, RSV. Chest x-ray negative for focal consolidation but shows soft tissue density along the contour of the descending thoracic aorta. Subsequent CTA chest pending. Pt evaluated by psychiatry recommending continuing abilify and depakote. He will be admitted for ESRD on HD and further psychiatric evaluation. 68yo M with ESRD on HD MWF, bipolar schizoaffective disorder, and chronic anemia who presented to ED on Sec 12 via EMS due to noncompliance with medications + refusing HD. He was admitted to the medical-surgical floor. He was given IV lorazepam and IM olanzapine. He finally consented to undergoing HD on 07/27/23 but afterwards, his IV fell out and he refused to have it replaced. He refused all IM and PO medications and refused to have any further HD done. HCP was invoked. His HCP, his Sujata, consented to him getting all medically and psychiatrically indicated medications and dialysis treatment. He was given IM lorazepam and IM olanzapine 07/31 and 08/01 and dialyzed both days. He was transferred to the Geriatric Psychiatry unit for further psychiatric stabilization and can resume HD once he is able to comply. Other issues that came up but were not worked up due to the patient refusal were an incidental soft tissue abnormality of the ascending aorta representing a mass or aneurysm; this can be worked up with a CTA of the chest once the patient is agreeable. He has a heart murmur and a TTE can be done at some point. Both issues can be addressed as an outpatient. Time Attestation Discharge Coordination Time (in mins): 45 Quality: Safe Use of Opioids Does Pt have an Active Cancer Diagnosis on the Problem List?: No Quality: Stroke Does the patient have a stroke diagnosis?: No Physical Exam Vital Signs: Vital Signs: Last Vital Signs Temp 97.9 F 07/28/23 15:33 Pulse 75 07/28/23 15:33 Resp 18 07/28/23 15:33 BP 142/80 H 07/28/23 15:33 Pulse Ox 96 07/28/23 15:33 O2 Del Method Room Air 07/28/23 15:33 BMI result Body Mass Index 26.3 Gen: in no acute distress HEENT: sclera anicteric, moist mucus membranes Neck: supple Lungs: clear to auscultation bilaterally Heart: regular rate and rhythm, systolic ejection murmur Abd: soft, non-tender, non-distended Ext: no edema, LUE fistula with palpable thrill Skin: warm/well-perfused Neuro: alert and oriented to self + place, no focal findings Psych: impaired insight DS: Data Data Completed and Pending Completed studies during hospitalization [Text1]: Laboratory Results WBC 4.7 X10*3/uL (4.8-10.8) L 07/24/23 11:37 RBC 3.22 X10*6/uL (4.60-5.80) L D 07/24/23 11:37 Hgb 10.8 g/dl (14.0-18.0) L D 07/24/23 11:37 Hct 32.6 % (42.0-52.0) L D 07/24/23 11:37 MCV 101.2 fL (80.0-98.0) H 07/24/23 11:37 MCH 33.5 pg (27.0-33.0) H 07/24/23 11:37 MCHC 33.1 g/dl (31.0-36.0) 07/24/23 11:37 RDW 14.7 % (11.0-16.0) 07/24/23 11:37 Plt Count 171 X10*3/uL (160-400) D 07/24/23 11:37 MPV 10.0 fL (9.4-12.4) 07/24/23 11:37 Immature Gran % (Auto) 0.4 % (0.0-0.4) 07/24/23 11:37 Neut % (Auto) 71.7 % (45-73) 07/24/23 11:37 Lymph % (Auto) 14.7 % (20-40) L 07/24/23 11:37 Dickson % (Auto) 11.3 % (2-11) H 07/24/23 11:37 Eos % (Auto) 1.5 % (0-4) 07/24/23 11:37 Baso % (Auto) 0.4 % (0-2) 07/24/23 11:37 Lymph # (Auto) 0.7 X10*3/uL (1.2-4.9) L 07/24/23 11:37 Dickson # (Auto) 0.5 X10*3/uL (0.1-1.2) 07/24/23 11:37 Eos # (Auto) 0.1 X10*3/uL (0.0-0.4) 07/24/23 11:37 Baso # (Auto) 0.0 X10*3/uL (0.0-0.2) 07/24/23 11:37 Abs Immat Gran (auto) 0.02 X10*3/uL (0.00-0.03) 07/24/23 11:37 Absolute Neuts (auto) 3.4 x10*3/uL (2.0-8.3) 07/24/23 11:37 Absolute Nucleated RBC 0.000 X10*3/uL (0.0-0.012) 07/24/23 11:37 Nucleated RBC % (auto) 0.0 /100WBC (0.0-0.2) 07/24/23 11:37 Hold Purple Top SEE NOTE 07/27/23 08:04 Sodium 134 mmol/L (135-145) L 08/01/23 10:24 Potassium 5.1 mmol/L (3.3-5.1) 08/01/23 10:24 Chloride 97 mmol/L (96-108) 08/01/23 10:24 Carbon Dioxide 14 mmol/L (22-29) L 08/01/23 10:24 Anion Gap 28 (12-20) H 08/01/23 10:24 BUN 99 mg/dL (9-16) H 08/01/23 10:24 Creatinine 18.95 mg/dL (0.5-1.4) H* 08/01/23 10:24 Estim Creat Clear Calc 3.9 08/01/23 10:24 Estimated GFR 2 08/01/23 10:24 Random Glucose 84 mg/dL (60-115) 08/01/23 10:24 Calcium 10.3 mg/dL (8.4-10.2) H 08/01/23 10:24 Phosphorus 12.4 mg/dL (2.7-4.5) H 08/01/23 10:24 Total Bilirubin 0.7 mg/dL (0.0-1.0) 07/24/23 11:37 AST 16 U/L (5-37) 07/24/23 11:37 ALT 14 U/L (0-40) 07/24/23 11:37 Alkaline Phosphatase 70 U/L (39-117) 07/24/23 11:37 Ammonia 32 umol/L (13-55) 07/27/23 08:04 Total Protein 7.5 g/dL (6.5-8.0) 07/24/23 11:37 Albumin 3.8 g/dL (3.5-5.0) 07/27/23 08:04 TSH 1.14 uIU/mL (0.32-4.0) 07/24/23 12:25 Urine Color Yellow 07/24/23 11:37 Urine Appearance Clear 07/24/23 11:37 Urine pH 8.5 (5.0-9.0) 07/24/23 11:37 Ur Specific [place] 1.010 (1.005-1.025) 07/24/23 11:37 Urine Protein 100 (2+) mg/dL (Neg-Trace) H 07/24/23 11:37 Urine Glucose (UA) 250 mg/dL (Negative) H 07/24/23 11:37 Urine Ketones Negative mg/dL (Negative) 07/24/23 11:37 Urine Blood Small (1+) (Negative) H 07/24/23 11:37 Urine Nitrite Negative (Negative) 07/24/23 11:37 Ur Leukocyte Esterase Negative (Negative) 07/24/23 11:37 Urine RBC 0-2 /HPF (0-2) 07/24/23 11:37 Urine WBC 0-5 /HPF (0-5) 07/24/23 11:37 Ur Squamous Epith Cells 0-2 /HPF (0-2) 07/24/23 11:37 Urine Bacteria None Seen (None Seen) 07/24/23 11:37 Hyaline Casts 0-2 /LPF (0-2) 07/24/23 11:37 Valproic Acid < 12.5 mcg/mL (50.0-100.0) L 07/24/23 12:25 Influenza Type A (PCR) NEGATIVE (Negative) 07/24/23 11:57 Influenza Type B (PCR) NEGATIVE (Negative) 07/24/23 11:57 RSV RNA Qual (PCR) NEGATIVE (Negative) 07/24/23 11:57 SARS-CoV-2 RNA (RT-PCR) NEGATIVE (Negative) 07/24/23 11:57 Impressions Chest X-Ray 07/24/23 13:15 IMPRESSION: 1. No pneumonia. 2. Soft tissue density along the contour of the descending thoracic aorta. Differential diagnosis includes mass and aneurysm. CT scan should be considered for further evaluation. Discharge Plan Discharge Patient Disposition: Xfer Psychiatric Hosp Discharge Diagnosis: End-stage renal disease on hemodialysis Schizoaffective disorder with catatonic features Referrals: Physician,Sylvia J [Physician] - 1 Week Discharge Medications: New lorazepam 2 mg/mL Solution 2 mg IM BID Qty: 1 0RF olanzapine 10 mg Recon Soln 5 mg IM BID Qty: 1 0RF Continued aspirin 81 mg Tablet,Delayed Release (Dr/Ec) 81 mg PO DAILY 30 Days Qty: 30 0RF divalproex 500 mg tablet extended release 24 hr 1,000 mg PO BEDTIME 30 Days Qty: 60 0RF Renal Caps 1 mg Capsule 1 cap PO DAILY benztropine 1 mg tablet 2 mg PO BID sevelamer carbonate 800 mg tablet 800 mg PO TID@0800,1200,1800 Discontinued aripiprazole 10 mg Tablet 10 mg PO DAILY Qty: 30 0RF thiothixene 5 mg Capsule 15 mg PO DAILY 30 Days Qty: 90 0RF aripiprazole 5 mg tablet 5 mg PO DAILY Discharge Orders: Discharge Order (Routine); Ordered 08/02/23 Ordered By: Andrey Mendez Diet: Advance to usual diet Activity on Discharge: As tolerated Stand Alone Forms: Patient Portal Discharge page Print Language: Thai Health Concerns: End-stage renal disease on hemodialysis Schizoaffective disorder with catatonic features Plan of Treatment: Transfer to inpatient psychiatry for psychiatric stabilization to allow compliance with hemodialysis Assessment: See Discharge Summary.
[2023-07-28 22:51] VITALS: RESP 18
[2023-07-29 07:40] VITALS: BP 155/84; PULSE 68; RESP 20; TEMP 36.4; O2SAT 98
--- NOTE | 2023-07-29 10:51 | PC.NURSE ---
Clinical Supp made aware, pt is ready to d/c to [facility] per MD. Waiting for bed.
--- NOTE | 2023-07-29 13:12 | P.PNIM_ITS ---
Subjective Subjective Date of Service: 07/29/23 Interval History: still refusing HD, IV + meds Review of Systems Review of Systems: Yes all other systems are reviewed and are negative Physical Exam 2 Vital Signs: Vital Signs: Last Vital Signs Temp 97.6 F 07/29/23 07:40 Pulse 68 07/29/23 07:40 Resp 20 07/29/23 07:40 BP 155/84 H 07/29/23 07:40 Pulse Ox 98 07/29/23 07:40 O2 Del Method Room Air 07/29/23 07:40 BMI result Body Mass Index 26.3 Gen: in no acute distress HEENT: sclera anicteric, moist mucus membranes Neck: supple Lungs: clear to auscultation bilaterally Heart: regular rate and rhythm, systolic ejection murmur Abd: soft, non-tender, non-distended Ext: no edema, LUE fistula with palpable thrill Skin: warm/well-perfused Neuro: alert and oriented to self + place, no focal findings Psych: impaired insight Objective Data Active Medications Acetaminophen (Acetaminophen 325 Mg Tablet) 650 mg PO Q6H PRN PRN Reason: Pain, Mild (Pain Scale 1-3) Aripiprazole (Aripiprazole 10 Mg Tablet) 10 mg PO DAILY [facility] Last Admin: 07/29/23 09:32 Dose: Not Given Documented By: MILAN Non-Admin Reason: Patient Refused Aripiprazole (Aripiprazole 5 Mg Tablet) 5 mg PO DAILY [facility] Last Admin: 07/29/23 09:32 Dose: Not Given Documented By: MILAN Non-Admin Reason: Patient Refused Aspirin (Aspirin Enteric Coated 81 Mg Tablet.) 81 mg PO DAILY [facility] Last Admin: 07/29/23 09:32 Dose: Not Given Documented By: MILAN Non-Admin Reason: Patient Refused Heparin Sodium (Porcine) (Heparin Sodium,Porcine 5,000 Unit/Ml Vial) 5,000 unit SUBCUT Q12H [facility] Last Admin: 07/29/23 03:05 Dose: Not Given Documented By: ANTOIC Non-Admin Reason: Patient Refused Valproic Acid 1,000 mg/ (Dextrose) 60 mls @ 60 mls/hr IV DAILY [facility] Last Admin: 07/29/23 09:33 Dose: Not Given Documented By: MILAN Non-Admin Reason: Patient Refused Lorazepam (Lorazepam 2 Mg/Ml Vial) 1 mg IVPUSH Q6H PRN PRN Reason: anxiety/restlessness Lorazepam (Lorazepam 2 Mg/Ml Vial) 2 mg IM ONCE PRN PRN Reason: anxiety/restlessness Last Admin: 07/26/23 11:43 Dose: 2 mg Documented By: JESS Lorazepam (Lorazepam 2 Mg/Ml Vial) 1 mg IV TID [facility] Last Admin: 07/29/23 09:32 Dose: Not Given Documented By: MILAN Non-Admin Reason: Patient Refused Multivitamins/Vitamin C (Multivitamin Tablet) 1 tab PO DAILY [facility] Last Admin: 07/29/23 09:32 Dose: Not Given Documented By: MILAN Non-Admin Reason: Patient Refused Olanzapine (Olanzapine 10 Mg Vial) 2.5 mg IM BID [facility] Last Admin: 07/29/23 09:32 Dose: Not Given Documented By: MILAN Non-Admin Reason: Patient Refused Olanzapine (Olanzapine 10 Mg Vial) 5 mg IM Q8H PRN PRN Reason: Anxiety/agitation Ondansetron HCl (Ondansetron Hcl 4 Mg/2 Ml Vial) 4 mg IVPUSH Q8H PRN PRN Reason: Nausea and Vomiting Senna (Sennosides 8.6 Mg Tablet) 17.2 mg PO BEDTIME PRN PRN Reason: Constipation Sevelamer Carbonate (Sevelamer Carbonate Tablet 800 Mg Tablet) 800 mg PO TID@0800,1200,1800 [facility] Last Admin: 07/29/23 11:51 Dose: Not Given Documented By: MILAN Non-Admin Reason: Patient Refused Sodium Chloride (0.9 % Sodium Chloride Flush 3 Ml Syringe) 3 ml IVFLUSH QSHIFT [facility] Last Admin: 07/29/23 09:31 Dose: Not Given Documented By: MILAN Non-Admin Reason: No Access Labs 07/24/23 11:37 07/27/23 08:04 Assessment and Plan (1) Noncompliance by declining intervention or support: Status: Acute (2) ESRD needing dialysis: Status: Acute Plan d5 68yo M with ESRD on HD MWF, bipolar schizoaffective disorder, chronic anemia presented to ED on Sec 12 via EMS due to noncompliance with medications + refusing HD ESRD on HD hyperphosphatemia - got HD 07/27/23 but now refusing again; also refusing labs - continue sevelamer nonadherence due to psychiatric condition [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 At this point his psychiatric condition is the primary issue. Will transfer to [facility] once bed available. soft tissue abnormality of ascending aorta- mass/aneurysm? - CTA chest eventually when pt agrees, coordinate with HD systolic ejection murmur - TTE pending chronic macrocytic anemia - likely due to ESRD but B12/FA levels pending VTE ppx: UFH dispo: will need inpt psychiatry In my clinical judgment, the patient requires continued inpatient hospitalization for the following reasons: awaiting psychiatry bed HCP invoked by court order per ED provider/psychiatry. HCP is pt , Sujata Holcomb [phone] (cellphone) Total time managing care of this patient today: 35 minutes. Quality Stroke Does the patient have a stroke diagnosis?: No VTE Prior VTE?: No VTE Risk Level:: Medical - moderate - high VTE Device Contraindication: Treatment Not Indicated VTE Drug Contraindication: N/A - Med Ordered
--- NOTE | 2023-07-29 13:45 | MHC.CARE ---
RAD Team conducted statewide bed search. Clinical was faxed to [facility] for review, but no beds are open until Monday. The statewide search is exhausted for today.
--- NOTE | 2023-07-29 21:07 | PM.PNNEP ---
Subjective Subjective Date of Service: 07/30/23 Physical Exam Vital Signs: Vital Signs: Last Vital Signs Temp 97.6 F 07/29/23 07:40 Pulse 68 07/29/23 07:40 Resp 20 07/29/23 07:40 BP 155/84 H 07/29/23 07:40 Pulse Ox 98 07/29/23 07:40 O2 Del Method Room Air 07/29/23 07:40 BMI result Body Mass Index 26.3 cvs; s1s2 Rs; cta abd; soft Objective Data Labs 07/24/23 11:37 07/27/23 08:04 Procedures Date of Service Date of Service: 07/30/23 Assessment & Plan Assessment and plan (1) ESRD needing dialysis: Status: Acute Plan followed by Dr Pena, [facility] known schizoaffective disorder presented to the ED due to noncompliance with medications last HD last Monday nehrogenic anemia REC psych management HD if patient agreeable - last dialysis on - refused today no need for ERIKA renal diet P binder- phos 9.7 ( 07/26) prn bp meds if pt will agree to take Time Spent With Patient Time: Total time managing care of this patient today ____ minutes. Progress Note: Quality Stroke Does the patient have a stroke diagnosis?: No
--- NOTE | 2023-07-30 09:59 | P.PNIM_ITS ---
Subjective Subjective Date of Service: 07/30/23 Interval History: refusing labs, meds, or HD does not appear to understand consequences of refusing HD Review of Systems Review of Systems: Yes all other systems are reviewed and are negative Physical Exam 2 Vital Signs: Vital Signs: Last Vital Signs Temp 97.6 F 07/29/23 07:40 Pulse 68 07/29/23 07:40 Resp 20 07/29/23 07:40 BP 155/84 H 07/29/23 07:40 Pulse Ox 98 07/29/23 07:40 O2 Del Method Room Air 07/29/23 07:40 BMI result Body Mass Index 26.3 Gen: in no acute distress HEENT: sclera anicteric, moist mucus membranes Neck: supple Lungs: clear to auscultation bilaterally Heart: regular rate and rhythm, systolic ejection murmur Abd: soft, non-tender, non-distended Ext: no edema, LUE fistula with palpable thrill Skin: warm/well-perfused Neuro: alert and oriented to self + place, no focal findings Psych: impaired insight Objective Data Active Medications Acetaminophen (Acetaminophen 325 Mg Tablet) 650 mg PO Q6H PRN PRN Reason: Pain, Mild (Pain Scale 1-3) Aripiprazole (Aripiprazole 10 Mg Tablet) 10 mg PO DAILY [facility] Last Admin: 07/30/23 08:05 Dose: Not Given Documented By: MILAN Non-Admin Reason: Patient Refused Aripiprazole (Aripiprazole 5 Mg Tablet) 5 mg PO DAILY [facility] Last Admin: 07/30/23 08:05 Dose: Not Given Documented By: MILAN Non-Admin Reason: Patient Refused Aspirin (Aspirin Enteric Coated 81 Mg Tablet.) 81 mg PO DAILY [facility] Last Admin: 07/30/23 08:05 Dose: Not Given Documented By: MILAN Non-Admin Reason: Patient Refused Heparin Sodium (Porcine) (Heparin Sodium,Porcine 5,000 Unit/Ml Vial) 5,000 unit SUBCUT Q12H [facility] Last Admin: 07/30/23 02:36 Dose: Not Given Documented By: TAN Non-Admin Reason: Patient Refused Valproic Acid 1,000 mg/ (Dextrose) 60 mls @ 60 mls/hr IV DAILY [facility] Last Admin: 07/30/23 08:06 Dose: Not Given Documented By: MILAN Non-Admin Reason: Patient Refused Lorazepam (Lorazepam 2 Mg/Ml Vial) 1 mg IVPUSH Q6H PRN PRN Reason: anxiety/restlessness Lorazepam (Lorazepam 2 Mg/Ml Vial) 2 mg IM ONCE PRN PRN Reason: anxiety/restlessness Last Admin: 07/26/23 11:43 Dose: 2 mg Documented By: JESS Lorazepam (Lorazepam 2 Mg/Ml Vial) 1 mg IV TID [facility] Last Admin: 07/30/23 08:06 Dose: Not Given Documented By: MILAN Non-Admin Reason: Patient Refused Multivitamins/Vitamin C (Multivitamin Tablet) 1 tab PO DAILY [facility] Last Admin: 07/30/23 08:06 Dose: Not Given Documented By: MILAN Non-Admin Reason: Patient Refused Olanzapine (Olanzapine 10 Mg Vial) 2.5 mg IM BID [facility] Last Admin: 07/30/23 08:06 Dose: Not Given Documented By: MILAN Non-Admin Reason: Patient Refused Olanzapine (Olanzapine 10 Mg Vial) 5 mg IM Q8H PRN PRN Reason: Anxiety/agitation Ondansetron HCl (Ondansetron Hcl 4 Mg/2 Ml Vial) 4 mg IVPUSH Q8H PRN PRN Reason: Nausea and Vomiting Senna (Sennosides 8.6 Mg Tablet) 17.2 mg PO BEDTIME PRN PRN Reason: Constipation Sevelamer Carbonate (Sevelamer Carbonate Tablet 800 Mg Tablet) 800 mg PO TID@0800,1200,1800 [facility] Last Admin: 07/30/23 08:05 Dose: Not Given Documented By: MILAN Non-Admin Reason: Patient Refused Sodium Chloride (0.9 % Sodium Chloride Flush 3 Ml Syringe) 3 ml IVFLUSH QSHIFT [facility] Last Admin: 07/30/23 08:05 Dose: Not Given Documented By: MILAN Non-Admin Reason: No Access Labs 07/24/23 11:37 07/27/23 08:04 Assessment and Plan (1) Noncompliance by declining intervention or support: Status: Acute (2) ESRD needing dialysis: Status: Acute Plan d6 68yo M with ESRD on HD MWF, bipolar schizoaffective disorder, chronic anemia presented to ED on Sec 12 via EMS due to noncompliance with medications + refusing HD ESRD on HD hyperphosphatemia - got HD 07/27/23 but now refusing again; also refusing labs - continue sevelamer nonadherence due to psychiatric condition [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 At this point his psychiatric condition is the primary issue. Will transfer to [facility] once bed available. soft tissue abnormality of ascending aorta- mass/aneurysm? - CTA chest eventually when pt agrees, coordinate with HD systolic ejection murmur - TTE pending chronic macrocytic anemia - likely due to ESRD but B12/FA levels pending VTE ppx: UFH dispo: will need inpt psychiatry In my clinical judgment, the patient requires continued inpatient hospitalization for the following reasons: awaiting psychiatry bed HCP invoked by court order per ED provider/psychiatry. HCP is pt , Sujata Holcomb [phone] (cellphone) Total time managing care of this patient today: 35 minutes. Quality Stroke Does the patient have a stroke diagnosis?: No VTE Prior VTE?: No VTE Risk Level:: Medical - moderate - high VTE Device Contraindication: Treatment Not Indicated VTE Drug Contraindication: N/A - Med Ordered
[2023-07-30 15:58] VITALS: BP 167/92; PULSE 64; RESP 16; TEMP 36.1; O2SAT 95
--- NOTE | 2023-07-30 22:53 | PC.NURSE ---
Patient has been refusing medications, vital signs, blood draws and dialysis, repeatedly requested to speak with provider about discharge home. Provider notified, patient redirected numerous times.
--- NOTE | 2023-07-31 07:34 | PC.NURSE ---
Pt refusing all morning meds and vitals, MD Dr Mendez made aware, no new orders at this time.
--- NOTE | 2023-07-31 09:32 | PM.PNNEP ---
Subjective Subjective Date of Service: 07/31/23 Interval history: refusing labs, meds, or HD Ptis comfortable Physical Exam Vital Signs: Vital Signs: Last Vital Signs Temp 96.9 F 07/30/23 15:58 Pulse 64 07/30/23 15:58 Resp 16 07/30/23 15:58 BP 167/92 H 07/30/23 15:58 Pulse Ox 95 07/30/23 15:58 O2 Del Method Room Air 07/30/23 15:58 BMI result Body Mass Index 26.3 cvs; s1s2 Rs; cta abd; soft Ext No edema Objective Data Labs 07/24/23 11:37 07/27/23 08:04 Procedures Date of Service Date of Service: 07/31/23 Assessment & Plan Assessment and plan (1) ESRD needing dialysis: Status: Acute (2) Anemia: Status: Acute (3) Schizoaffective disorder, bipolar type: Status: Acute (4) Bipolar disorder: Status: Acute (5) Noncompliance by declining intervention or support: Status: Acute Plan Followed [facility] Known schizoaffective disorder presented to the ED due to noncompliance with medications last HD last Monday Nehrogenic anemia REC psych management - D/w Hospitalist They want to transferptto the psychfloor- [place] him and have HD- They will notify us HD if patient agreeable - last dialysis on - refused again today no need for ERIKA renal diet P binder- phos 9.7 ( 07/26) prn bp meds if pt will agree to take NO labs - Please get renal labs Time Spent With Patient Time: Total time managing care of this patient today ____ minutes. Progress Note: Quality Stroke Does the patient have a stroke diagnosis?: No
--- NOTE | 2023-07-31 09:43 | MHC.CLN ---
NUTRITION PATIENT WITH ESRD REQUIRING HD. ADDED LOW PHOSPHORUS TO DIET ORDER.
--- NOTE | 2023-07-31 11:04 | P.PNIM_ITS ---
Subjective Subjective Date of Service: 07/31/23 Interval History: still refusing labs, dialysis, medications; unable to explain the consequences of refusal or articulate why these interventions might be beneficial Review of Systems Review of Systems: Yes Unobtainable due to mental status Physical Exam 2 Vital Signs: Vital Signs: Last Vital Signs Temp 96.9 F 07/30/23 15:58 Pulse 64 07/30/23 15:58 Resp 16 07/30/23 15:58 BP 167/92 H 07/30/23 15:58 Pulse Ox 95 07/30/23 15:58 O2 Del Method Room Air 07/30/23 15:58 BMI result Body Mass Index 26.3 Gen: in no acute distress HEENT: sclera anicteric, moist mucus membranes Neck: supple Lungs: clear to auscultation bilaterally Heart: regular rate and rhythm, systolic ejection murmur Abd: soft, non-tender, non-distended Ext: no edema, LUE fistula with palpable thrill Skin: warm/well-perfused Neuro: alert and oriented to self + place, no focal findings Psych: impaired insight Objective Data Active Medications Acetaminophen (Acetaminophen 325 Mg Tablet) 650 mg PO Q6H PRN PRN Reason: Pain, Mild (Pain Scale 1-3) Aripiprazole (Aripiprazole 10 Mg Tablet) 10 mg PO DAILY [facility] Last Admin: 07/31/23 07:32 Dose: Not Given Documented By: KAROL Non-Admin Reason: Patient Refused Aripiprazole (Aripiprazole 5 Mg Tablet) 5 mg PO DAILY [facility] Last Admin: 07/31/23 07:32 Dose: Not Given Documented By: KAROL Non-Admin Reason: Patient Refused Aspirin (Aspirin Enteric Coated 81 Mg Tablet.) 81 mg PO DAILY [facility] Last Admin: 07/31/23 07:32 Dose: Not Given Documented By: KAROL Non-Admin Reason: Patient Refused Heparin Sodium (Porcine) (Heparin Sodium,Porcine 5,000 Unit/Ml Vial) 5,000 unit SUBCUT Q12H [facility] Last Admin: 07/31/23 00:42 Dose: Not Given Documented By: TAN Non-Admin Reason: Patient Refused Valproic Acid 1,000 mg/ (Dextrose) 60 mls @ 60 mls/hr IV DAILY [facility] Last Admin: 07/31/23 07:33 Dose: Not Given Documented By: KAROL Non-Admin Reason: Patient Refused Lorazepam (Lorazepam 2 Mg/Ml Vial) 2 mg IM ONCE PRN PRN Reason: anxiety/restlessness Last Admin: 07/26/23 11:43 Dose: 2 mg Documented By: JESS Lorazepam (Lorazepam 2 Mg/Ml Vial) 1 mg IV TID [facility] Last Admin: 07/31/23 07:32 Dose: Not Given Documented By: KAROL Non-Admin Reason: Patient Refused Multivitamins/Vitamin C (Multivitamin Tablet) 1 tab PO DAILY [facility] Last Admin: 07/31/23 07:32 Dose: Not Given Documented By: KAROL Non-Admin Reason: Patient Refused Olanzapine (Olanzapine 10 Mg Vial) 2.5 mg IM BID [facility] Last Admin: 07/31/23 07:32 Dose: Not Given Documented By: KAROL Non-Admin Reason: Patient Refused Olanzapine (Olanzapine 10 Mg Vial) 5 mg IM Q8H PRN PRN Reason: Anxiety/agitation Ondansetron HCl (Ondansetron Hcl 4 Mg/2 Ml Vial) 4 mg IVPUSH Q8H PRN PRN Reason: Nausea and Vomiting Senna (Sennosides 8.6 Mg Tablet) 17.2 mg PO BEDTIME PRN PRN Reason: Constipation Sevelamer Carbonate (Sevelamer Carbonate Tablet 800 Mg Tablet) 800 mg PO TID@0800,1200,1800 [facility] Last Admin: 07/31/23 11:01 Dose: Not Given Documented By: KAROL Non-Admin Reason: Patient Refused Sodium Chloride (0.9 % Sodium Chloride Flush 3 Ml Syringe) 3 ml IVFLUSH QSHIFT [facility] Last Admin: 07/31/23 06:58 Dose: Not Given Documented By: KAROL Non-Admin Reason: No Access Labs 07/24/23 11:37 07/27/23 08:04 Assessment and Plan (1) Noncompliance by declining intervention or support: Status: Acute (2) ESRD needing dialysis: Status: Acute Plan d7 68yo M with ESRD on HD MWF, bipolar schizoaffective disorder, chronic anemia presented to ED on Sec 12 via EMS due to noncompliance with medications + refusing HD ESRD on HD hyperphosphatemia - got HD 07/27/23 but now refusing again; also refusing labs - continue sevelamer nonadherence due to psychiatric condition [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 Awaiting [facility] bed for psychiatric stabilization. soft tissue abnormality of ascending aorta- mass/aneurysm? - CTA chest eventually when pt agrees, coordinate with HD systolic ejection murmur - TTE deferred pending pt compliance chronic macrocytic anemia - likely due to ESRD but B12/FA levels ordered- pt refusing labs as above VTE ppx: UFH dispo: will need inpt psychiatry In my clinical judgment, the patient requires continued inpatient hospitalization for the following reasons: awaiting psychiatry bed HCP invoked by court order per ED provider/psychiatry. HCP is pt , Sujata Holcomb [phone] (cellphone) Total time managing care of this patient today: 35 minutes. Quality Stroke Does the patient have a stroke diagnosis?: No VTE Prior VTE?: No VTE Risk Level:: Medical - moderate - high VTE Device Contraindication: Treatment Not Indicated VTE Drug Contraindication: N/A - Med Ordered
--- NOTE | 2023-07-31 13:03 | MHC.CM.PN ---
PER HOSPITALIST PLAN FOR PT TO TXFR TO [facility] TODAY.
--- NOTE | 2023-07-31 13:32 | MHC.CARE ---
RAD Team conducted a statewide [facility] bed search for this individual, however, there are no beds available. This search is now exhausted and will be continued tomorrow 07/31 if deemed appropriate. Referral was faxed to [facility]. [facility] declined for non compliance with care due to refusal of meds and dialysis.
--- NOTE | 2023-07-31 15:01 | P.CNPS_ITS ---
History of Present Illness Date of Service: 07/31/2023 Chief Complaint: esrd dialysis Requesting physician: Andrey Mendez Discussed with referring provider: Yes Sources of Information: patient interviewed, chart reviewed and crisis/core team assessment reviewed HPI Narrative: Interim Hx: pt minimally cooperative, answers some questions with brief answers. He reports he does not need any treatment for medical or psychiatric condition. He reports he has not had dialysis for some days and this is proof that he is doing well and does not needed. He has also refused labs- no current objective data as to his renal function. He reports not eating because he is not hungry. He denies SI/HI. He asks to go home. Past Psychiatric History: Bipolar d/o ? psychosis . Hx M [address] [facility] in 1990 OP: Ramya Jacobs NP First psychotic/manic break in early . 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 No pneumonia. 2. Soft tissue density along the contour of the descending thoracic aorta. Differential diagnosis includes mass and aneurysm. CT scan should be considered for further evaluation. Mental Status Exam Mental Status Exam Narrative: Appearance: wearing hospital gown, fair hygiene, in NAD Behavior: guarded, minimally cooperative Psychomotor: some retardation noted Speech: he is [place], some delay in response, minimally spontaneous TP: single word answers TC: wanting to go home because he does not think he needs any treatment. Mood: fine Affect: constricted SI: denies HI: denies Psychosis: appears internally preoccupied Delusions: not fully forthcoming but thinking he does not have any medical treatment including for ESRD. Insight/judgment: impaired x 2. Memory/cog: alert not oriented to situation Medications Medications Current Medications Acetaminophen (Acetaminophen 325 Mg Tablet) 650 mg PO Q6H PRN PRN Reason: Pain, Mild (Pain Scale 1-3) Aripiprazole (Aripiprazole 10 Mg Tablet) 10 mg PO DAILY [facility] Last Admin: 07/31/23 07:32 Dose: Not Given Aripiprazole (Aripiprazole 5 Mg Tablet) 5 mg PO DAILY [facility] Last Admin: 07/31/23 07:32 Dose: Not Given Aspirin (Aspirin Enteric Coated 81 Mg Tablet.Dr) 81 mg PO DAILY [facility] Last Admin: 07/31/23 07:32 Dose: Not Given Heparin Sodium (Porcine) (Heparin Sodium,Porcine 5,000 Unit/Ml Vial) 5,000 unit SUBCUT Q12H [facility] Last Admin: 07/31/23 14:51 Dose: Not Given Valproic Acid 1,000 mg/ (Dextrose) 60 mls @ 60 mls/hr IV DAILY [facility] Last Admin: 07/31/23 07:33 Dose: Not Given Lorazepam (Lorazepam 2 Mg/Ml Vial) 1 mg IV TID [facility] Last Admin: 07/31/23 14:51 Dose: Not Given Multivitamins/Vitamin C (Multivitamin Tablet) 1 tab PO DAILY [facility] Last Admin: 07/31/23 07:32 Dose: Not Given Olanzapine (Olanzapine 10 Mg Vial) 2.5 mg IM BID [facility] Last Admin: 07/31/23 07:32 Dose: Not Given Olanzapine (Olanzapine 10 Mg Vial) 5 mg IM Q8H PRN PRN Reason: Anxiety/agitation Ondansetron HCl (Ondansetron Hcl 4 Mg/2 Ml Vial) 4 mg IVPUSH Q8H PRN PRN Reason: Nausea and Vomiting Senna (Sennosides 8.6 Mg Tablet) 17.2 mg PO BEDTIME PRN PRN Reason: Constipation Sevelamer Carbonate (Sevelamer Carbonate Tablet 800 Mg Tablet) 800 mg PO TID@0800,1200,1800 [facility] Last Admin: 07/31/23 11:01 Dose: Not Given Sodium Chloride (0.9 % Sodium Chloride Flush 3 Ml Syringe) 3 ml IVFLUSH QSHIFT [facility] Last Admin: 07/31/23 14:51 Dose: Not Given Allergies Allergies Allergy/AdvReac Type Severity Reaction Status Date / Time No Known Allergies Allergy Verified 07/24/23 11:18 Assessment & Plan Assessment & Plan (1) Schizoaffective disorder, bipolar type: Status: Acute Code(s): F25.0 - Schizoaffective disorder, bipolar type Plan Mr. Holcomb is a 68 year-old male with hx of Schizoaffective versus Bipolar Disorder who is known to psychiatry through previous admission with similar presentation including number of catatonic like symptoms including delayed response, thought blocking, negativism. Usually when decompensated, he believes he does not need dialysis. He reports today that he does not needed and thinks it is not true that he will without it. Spoke with his who is HCP,on 07/20 to update on plan. Note HCP has been affirmed last year in October by the court. Pt CAN'T REFUSE MEDICAL TX LIKE DIALYSIS, NOR LABS. May need to medicate prior to tx with ativan 2mg IV or IM and olanzapine 5mg IM. continue IV depakote, IV ativan 1mg po TID, olanzapine 2.5mg IM BID if he refuses oral medication. From psychiatric perspective- pt continues to present as internally preoccupied with thought blocking, not fully forthcoming with extent of delusions. MAINTAIN CLOSE MONITORING OF ORAL INTAKE- as given s/s of catatonia he may significantly stop eating causing additional medical complications. Total time managing care of this patient today ____ minutes.
[2023-08-01 07:34] VITALS: BP 177/86; PULSE 58; RESP 18; TEMP 36.2; O2SAT 96
[2023-08-01] MEDS: OLANZapine 10 MG VIAL 5 MG IM ×3 (09:43→21:30)
[2023-08-01] MEDS: LORazepam 2 MG/ML VIAL 1 MG IM (09:43)
--- NOTE | 2023-08-01 10:09 | PC.NURSE ---
Pt allowed this RN to administer IM ativan and zyprexa without incident, Pt tolerated well, Pt is resting in bed call barrera within reach high fall precautions in place.
[2023-08-01 10:58] LABS: Anion Gap 28 (12-20); Blood Urea Nitrogen 99 mg/dL (9-16); Calcium 10.3 mg/dL (8.4-10.2); Carbon Dioxide 14 mmol/L (22-29); Chloride 97 mmol/L (96-108); Creatinine Clr Calc Pharmacy 3.9; Estimated Glomerular Filt Rate 2; Glucose Random 84 mg/dL (60-115); Phosphorus 12.4 mg/dL (2.7-4.5); Potassium 5.1 mmol/L (3.3-5.1); Sodium 134 mmol/L (135-145)
--- NOTE | 2023-08-01 11:28 | HO.PM.IMPN ---
Subjective Subjective Date of Service: 08/01/23 Interval History: Refusing meds and labs and dialysis but did not resist when given IM meds + lab draw today; trying for HD today Unable to articulate consequences of not taking medications or not doing dialysis. Says he feels fine. He thinks his meds are causing nosebleeds but is unable to articulate what the meds are are what they are for. No nosebleed has been observed. Review of Systems Review of Systems: Yes Unobtainable due to mental status Physical Exam Vital Signs: Vital Signs: Last Vital Signs Temp 97.1 F 08/01/23 07:34 Pulse 58 08/01/23 07:34 Resp 18 08/01/23 07:34 BP 177/86 H 08/01/23 07:34 Pulse Ox 96 08/01/23 07:34 O2 Del Method Room Air 08/01/23 07:34 BMI result Body Mass Index 26.3 Gen: in no acute distress HEENT: sclera anicteric, moist mucus membranes Neck: supple Lungs: clear to auscultation bilaterally Heart: regular rate and rhythm, systolic ejection murmur Abd: soft, non-tender, non-distended Ext: no edema, LUE fistula with palpable thrill Skin: warm/well-perfused Neuro: alert and oriented to self + place, no focal findings Psych: impaired insight Objective Data Active Medications Acetaminophen (Acetaminophen 325 Mg Tablet) 650 mg PO Q6H PRN PRN Reason: Pain, Mild (Pain Scale 1-3) Aripiprazole (Aripiprazole 10 Mg Tablet) 10 mg PO DAILY [facility] Last Admin: 08/01/23 08:45 Dose: Not Given Documented By: KAROL Non-Admin Reason: Patient Refused Aripiprazole (Aripiprazole 5 Mg Tablet) 5 mg PO DAILY [facility] Last Admin: 08/01/23 08:45 Dose: Not Given Documented By: KAROL Non-Admin Reason: Patient Refused Aspirin (Aspirin Enteric Coated 81 Mg Tablet.) 81 mg PO DAILY [facility] Last Admin: 08/01/23 08:45 Dose: Not Given Documented By: KAROL Non-Admin Reason: Patient Refused Heparin Sodium (Porcine) (Heparin Sodium,Porcine 5,000 Unit/Ml Vial) 5,000 unit SUBCUT Q12H [facility] Last Admin: 08/01/23 02:50 Dose: Not Given Documented By: TAN Non-Admin Reason: Patient Refused Valproic Acid 1,000 mg/ (Dextrose) 60 mls @ 60 mls/hr IV DAILY [facility] Last Admin: 08/01/23 08:44 Dose: Not Given Documented By: KAROL Non-Admin Reason: No Access Lorazepam (Lorazepam 2 Mg/Ml Vial) 1 mg IM BID [facility] Last Admin: 08/01/23 09:43 Dose: 1 mg Documented By: KAROL Multivitamins/Vitamin C (Multivitamin Tablet) 1 tab PO DAILY [facility] Last Admin: 08/01/23 08:45 Dose: Not Given Documented By: KAROL Non-Admin Reason: Patient Refused Olanzapine (Olanzapine 10 Mg Vial) 5 mg IM Q8H PRN PRN Reason: Anxiety/agitation Olanzapine (Olanzapine 10 Mg Vial) 5 mg IM BID [facility] Last Admin: 08/01/23 09:43 Dose: 5 mg Documented By: KAROL Ondansetron HCl (Ondansetron Hcl 4 Mg/2 Ml Vial) 4 mg IVPUSH Q8H PRN PRN Reason: Nausea and Vomiting Senna (Sennosides 8.6 Mg Tablet) 17.2 mg PO BEDTIME PRN PRN Reason: Constipation Sevelamer Carbonate (Sevelamer Carbonate Tablet 800 Mg Tablet) 800 mg PO TID@0800,1200,1800 [facility] Last Admin: 08/01/23 11:21 Dose: Not Given Documented By: KAROL Non-Admin Reason: Patient Refused Sodium Chloride (0.9 % Sodium Chloride Flush 3 Ml Syringe) 3 ml IVFLUSH QSHIFT [facility] Last Admin: 08/01/23 08:36 Dose: Not Given Documented By: KAROL Non-Jana Reason: No Access Labs 07/24/23 11:37 08/01/23 10:24 Labs: Laboratory Results - last 24 hr 08/01/23 10:24 Anion Gap 28 H Estim Creat Clear Calc 3.9 Estimated GFR 2 Random Glucose 84 Calcium 10.3 H Phosphorus 12.4 H Assessment and Plan (1) Noncompliance by declining intervention or support: Status: Acute (2) ESRD needing dialysis: Status: Acute Plan d8 68yo M with ESRD on HD MWF, bipolar schizoaffective disorder, chronic anemia presented to ED on Sec 12 via EMS due to noncompliance with medications + refusing HD ESRD on HD hyperphosphatemia - got HD 07/27/23 and will try for HD again today - continue sevelamer nonadherence due to psychiatric condition [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 Awaiting [facility] bed for psychiatric stabilization. soft tissue abnormality of ascending aorta- mass/aneurysm? - CTA chest eventually when pt agrees, coordinate with HD systolic ejection murmur - TTE deferred pending pt compliance chronic macrocytic anemia - likely due to ESRD but B12/FA levels ordered- pt refusing labs as above VTE ppx: [facility] dispo: will need inpt psychiatry In my clinical judgment, the patient requires continued inpatient hospitalization for the following reasons: awaiting psychiatry bed HCP invoked by court order per ED provider/psychiatry. HCP is pt , Sujata Holcomb [phone] (cellphone). I spoke with her on Monday07/28/23 and she affirmed that she would like the pt to have all necessary medical and psychiatry treatment including dialysis, labs, and medications even if he were to refuse. Total time managing care of this patient today: 45 minutes. Quality Stroke Does the patient have a stroke diagnosis?: No VTE Prior VTE?: No VTE Risk Level:: Medical - moderate - high VTE Device Contraindication: Treatment Not Indicated VTE Drug Contraindication: N/A - Med Ordered
--- NOTE | 2023-08-01 12:00 | PC.NURSE ---
Pt refusing dialysis, pushing away at dialysis nurse when she attempted to get vitals, Pt has an affirmed HCP that is invoked with a dowling order, made aware of refusal, MD advised to give PRN zyprexa per JUN. Pt refusing to voluntarily take the PRN medication, A HOLD restraint and Medication restraint orders were obtained, Security was called to bedside, Pt physically restrained for PRN medication administration per JUN, 15 minutes checks done on Pt for post hour and documentation is in chart. Pt is laying in bed, respirations even and unlabored, call barrera within reach, Pt agreeable to dialysis 1 hour after PRN medication administration.
--- NOTE | 2023-08-01 14:20 | MHC.CARE ---
RAD Team conducted [place] [facility] bed [facility] for this individual, however, there are no beds available. This search is exhausted and will be continued tomorrow if necessary.
--- NOTE | 2023-08-01 14:24 | P.CNPS_ITS ---
History of Present Illness Date of Service: 08/01/23 Chief Complaint: esrd dialysis Reason for Consult: f/u psych Requesting physician: Andrey Mendez Discussed with referring provider: Yes Sources of Information: patient interviewed, chart reviewed and crisis/core team assessment reviewed HPI Narrative: Interim: pt in bed, slightly more talkative but still disorganized in his thinking. Pt states he refuses dialysis because he is sure he does not needed, feels good and does not think he will if he does not have it. Pt presents with suspiciousness towards medications, treatments and medical providers as he believes they are making him sick and not the other way around. He did receive olanzapine IM since he refused oral. He was sent to dialysis but hit RN, given olanzapine 5mg IM. He denies SI/HI. Past Psychiatric History: Bipolar d/o ? psychosis . Hx M 5 admissions and [facility] in 1990 OP: Ramya Jacobs NP First psychotic/manic break in early . 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 Trauma History: Deferred Diagnostics Vital Signs (24Hr): Vital Signs - 24 hr 08/01/23 07:34 Temperature 97.1 F Pulse Rate 58 Respiratory Rate 18 Blood Pressure 177/86 H Pulse Oximetry 96 Oxygen Delivery Method Room Air BMI result Body Mass Index 26.3 Labs 07/24/23 11:37 08/01/23 10:24 Labs: Laboratory Results - last 48 hr 08/01/23 10:24 Sodium 134 L Potassium 5.1 Chloride 97 Carbon Dioxide 14 L Anion Gap 28 H BUN 99 H Creatinine 18.95 H* Estim Creat Clear Calc 3.9 Estimated GFR 2 Random Glucose 84 Calcium 10.3 H Phosphorus 12.4 H Imaging Radiology Impressions: ITS Impressions Chest X-Ray 07/24/23 13:15 IMPRESSION: 1. No pneumonia. 2. Soft tissue density along the contour of the descending thoracic aorta. Differential diagnosis includes mass and aneurysm. CT scan should be considered for further evaluation. Mental Status Exam Mental Status Exam Narrative: Appearance: wearing hospital gown, fair hygiene, in NAD Behavior: guarded, minimally cooperative Psychomotor: some retardation noted Speech: he is [place], some delay in response, minimally spontaneous TP: single word answers TC: wanting to go home because he does not think he needs any treatment. Mood: fine Affect: constricted SI: denies HI: denies Psychosis: appears internally preoccupied Delusions: paranoid about medications, treatment does not believe that doctors are truthful about him needing dialysis Insight/judgment: impaired x 2. Memory/cog: alert not oriented to situation Medications Medications Current Medications Acetaminophen (Acetaminophen 325 Mg Tablet) 650 mg PO Q6H PRN PRN Reason: Pain, Mild (Pain Scale 1-3) Aripiprazole (Aripiprazole 10 Mg Tablet) 10 mg PO DAILY [facility] Last Admin: 08/01/23 08:45 Dose: Not Given Aripiprazole (Aripiprazole 5 Mg Tablet) 5 mg PO DAILY [facility] Last Admin: 08/01/23 08:45 Dose: Not Given Aspirin (Aspirin Enteric Coated 81 Mg Tablet.) 81 mg PO DAILY [facility] Last Admin: 08/01/23 08:45 Dose: Not Given Heparin Sodium (Porcine) (Heparin Sodium,Porcine 5,000 Unit/Ml Vial) 5,000 unit SUBCUT Q12H [facility] Last Admin: 08/01/23 14:01 Dose: Not Given Valproic Acid 1,000 mg/ (Dextrose) 60 mls @ 60 mls/hr IV DAILY [facility] Last Admin: 08/01/23 08:44 Dose: Not Given Lorazepam (Lorazepam 2 Mg/Ml Vial) 2 mg IM BID [facility] Multivitamins/Vitamin C (Multivitamin Tablet) 1 tab PO DAILY [facility] Last Admin: 08/01/23 08:45 Dose: Not Given Olanzapine (Olanzapine 10 Mg Vial) 5 mg IM Q8H PRN PRN Reason: Anxiety/agitation Last Admin: 08/01/23 12:46 Dose: 5 mg Olanzapine (Olanzapine 10 Mg Vial) 5 mg IM BID [facility] Last Admin: 08/01/23 09:43 Dose: 5 mg Ondansetron HCl (Ondansetron Hcl 4 Mg/2 Ml Vial) 4 mg IVPUSH Q8H PRN PRN Reason: Nausea and Vomiting Senna (Sennosides 8.6 Mg Tablet) 17.2 mg PO BEDTIME PRN PRN Reason: Constipation Sevelamer Carbonate (Sevelamer Carbonate Tablet 800 Mg Tablet) 800 mg PO TID@0800,1200,1800 [facility] Last Admin: 08/01/23 11:21 Dose: Not Given Sodium Chloride (0.9 % Sodium Chloride Flush 3 Ml Syringe) 3 ml IVFLUSH QSHIFT [facility] Last Admin: 08/01/23 08:36 Dose: Not Given Allergies Allergies Allergy/AdvReac Type Severity Reaction Status Date / Time No Known Allergies Allergy Verified 07/24/23 11:18 Assessment & Plan Assessment & Plan (1) Schizoaffective disorder, bipolar type: Status: Acute Code(s): F25.0 - Schizoaffective disorder, bipolar type Plan Mr. Holcomb is a 68 year-old male with hx of Schizoaffective versus Bipolar Disorder who is known to psychiatry through previous admission with similar presentation including number of catatonic like symptoms including delayed response, thought blocking, negativism. Usually when decompensated, he believes he does not need dialysis. He reports today that he does not needed and thinks it is not true that he will without it. 07/30: Spoke with his who is HCP provided update on plan. Note HCP has been affirmed last year in October by the court. Pt CAN'T REFUSE MEDICAL TX LIKE DIALYSIS, NOR LABS. May need to medicate prior to tx with ativan 2mg IV or IM and olanzapine 5mg IM. 07/31 pt slightly more talkative, still limited oral intake- continue to monitor. Pt still suspicious about medications, doctors recommendation because he thinks they are trying to harm him, he does not believe he needs dialysis to survive. He is clear in that he does not want to . continue IV depakote, IV ativan 1mg po TID, olanzapine 2.5mg IM BID if he refuses oral medication. - ativan 1mg TID-- if for catatonia s/s, not anxiety Total time managing care of this patient today ____ minutes.
[2023-08-01 18:50] VITALS: BP 125/71; PULSE 55; RESP 12; TEMP 37; O2SAT 95
[2023-08-01] MEDS: LORazepam 2 MG/ML VIAL IM (21:29)
--- NOTE | 2023-08-02 00:30 | PC.NURSE ---
Pt was refusing PM dose of IM zyprexa and IM ativan hitting staff stating there is nothing wrong with me .Security called and held pt so IM injections could be given.Resting in bed at present time.
[2023-08-02 08:00] VITALS: BP 158/84; PULSE 62; RESP 16; TEMP 36; O2SAT 98
[2023-08-02] MEDS: LORazepam 2 MG/ML VIAL IM (09:12)
[2023-08-02] MEDS: OLANZapine 10 MG VIAL 5 MG IM ×2 (09:12→10:09)
--- NOTE | 2023-08-02 09:29 | PC.NURSE ---
PO medications refused this morning. IM medications given with no issue.
[2023-08-02] MEDS: LORazepam 2 MG/ML VIAL 1 MG IM (10:08)
[2023-08-02 11:00] VITALS: BP 123/68; PULSE 70; RESP 16; TEMP 36.2; O2SAT 96
[2023-08-02 11:01] VITALS: BP 121/73; PULSE 68; RESP 17; TEMP 36.2; O2SAT 98
[2023-08-02 11:04] VITALS: BP 130/87; PULSE 68; RESP 16; TEMP 36.1; O2SAT 98
[2023-08-02 11:21] VITALS: BP 160/87; PULSE 72; RESP 16; TEMP 36.2; O2SAT 97
--- NOTE | 2023-08-02 11:50 | P.PNNP_ITS ---
Subjective Subjective Date of Service: 08/02/23 Interval history: seen and examined on HD Physical Exam 2 Vital Signs: Vital Signs: Last Vital Signs Temp 97.1 F 08/02/23 11:21 Pulse 72 08/02/23 11:21 Resp 16 08/02/23 11:21 BP 160/87 H 08/02/23 11:21 Pulse Ox 97 08/02/23 11:21 O2 Del Method Room Air 08/02/23 11:21 BMI result Body Mass Index 26.3 Const: General: no acute distress HEENT: Head: Yes normocephalic and Yes atraumatic Neck: Neck: Yes supple Resp: Auscultation: clear to auscultation bilaterally Cardio: Heart sounds: S1 normal heart sound present and S2 normal heart sound present GI: Palpation (GI): Soft to palpation and nontender Extrem: Left upper extremity: normal to inspection Objective Data Labs 07/24/23 11:37 08/01/23 10:24 Procedures Date of Service Date of Service: 08/02/23 Assessment & Plan Assessment and plan (1) ESRD (end stage renal disease): Status: Acute (2) Anemia: Status: Acute Plan ESRD on HD -- at [facility] followed by Dr Pena known schizoaffective disorder presented to the ED due to noncompliance with medications nehrogenic anemia REC HD today optimize volume status no need for ERIKA renal diet P binder Time Spent With Patient Time: Total time managing care of this patient today ____ minutes. Progress Note: Quality Stroke Does the patient have a stroke diagnosis?: No
--- NOTE | 2023-08-02 12:56 | MHC.CM.PN ---
Addendum entered by Pascale Barillas RN 08/02/23 14:24: CM spoke with , informed of pending xfer to [facility]. Original Note: Patient awaiting [facility] placement. CM will continue to follow for dc needs
--- NOTE | 2023-08-02 13:08 | MHC.CARE ---
CARE Team spoke with Pts Ofelia Holcomb [phone], who is agreement with admission to [place] [id number].
== END 2023-08-02 15:39 | DRG 682 ==
LOC: HO.ED 15:02 → HO.EDOVER 15:23 → HO.S3 17:27
PROVIDERS: Admitting Provider Physician Assistant; Emergency Provider Emergency Medicine; PCP Physician Assistant; Visit Provider Family Medicine
DX: I12.0 Hypertensive chronic kidney disease with stage 5 chronic kidney disease or end stage renal disease (principal); N18.6 End stage renal disease; Z99.2 Dependence on renal dialysis; Z91.158 Patient's noncompliance with renal dialysis for other reason; R01.1 Cardiac murmur, unspecified; E83.39 Other disorders of phosphorus metabolism; I71.23 Aneurysm of the descending thoracic aorta, without rupture; Z91.148 Patient's other noncompliance with medication regimen for other reason; F25.0 Schizoaffective disorder, bipolar type; D53.9 Nutritional anemia, unspecified; D63.1 Anemia in chronic kidney disease; Z20.822 Contact with and (suspected) exposure to COVID-19; Z79.82 Long term (current) use of aspirin; Z79.899 Other long term (current) drug therapy
CPT/HCPCS: 0241U; 36415; 71045; 80048; 80053; 80164; 81001; 82040; 82140; 84100; 84443; 85025; 90999; 93005; 93306; 99285; J1165; J1644; J2060; J2359; Q9957; S9485

== ENCOUNTER → 2023-07-24 11:57 | Outpatient (BNV) | payer MEDICARE, SELFPAY | PROVIDERS: Admitting Provider Physician Assistant; Emergency Provider Emergency Medicine; Visit Provider Internal Medicine Cardiovascular Disease | DX: I49.1 Atrial premature depolarization (principal); R53.1 Weakness | CPT/HCPCS: 93010 ==

== ENCOUNTER → 2023-07-24 14:53 | Outpatient (BNV) | payer MEDICARE, SELFPAY | PROVIDERS: Admitting Provider Physician Assistant; Emergency Provider Emergency Medicine; Visit Provider Social Worker | DX: F25.0 Schizoaffective disorder, bipolar type (principal) | CPT/HCPCS: 99232 ==

== ENCOUNTER → 2023-07-24 14:53 | Outpatient (BNV) | payer MEDICARE, SELFPAY | PROVIDERS: Admitting Provider Physician Assistant; Emergency Provider Emergency Medicine; Visit Provider Physician Assistant | DX: N18.6 End stage renal disease (principal); Z99.2 Dependence on renal dialysis; Z91.199 Patient's noncompliance with other medical treatment and regimen due to unspecified reason; F25.0 Schizoaffective disorder, bipolar type | CPT/HCPCS: 99223; 99232; 99239 ==

== ENCOUNTER 2023-08-02 15:51 | Inpatient (IN) | payer MEDICARE, SELFPAY ==
--- OUTSIDE RECORDS SUMMARY | 2023-08-02 15:54 | XMS_ITS | Continuity of Care Document ---
Author Organization [facility] Address [address] [place] [address]- Care Team Providers Care Utility Worker Production Name Role Phone Brooke Morales Primary Care Physician Encounter [facility] Date(s): 04/11/23 - 05/11/23 [facility] [address] [place] [address]- Attending Physician: Chris Ohara Admitting Physician: AdmChris atkins Referring Physician: AdmtrChris Allergies, Adverse Reactions, Alerts No Known Medication Allergies Immunizations Given and Recorded Vaccine Date Status Refusal Reason SARS-CoV-2 (COVID-19) mRNA-1273 vaccine 06/24/20 R ecorded SARS-CoV-2 (COVID-19) mRNA-1273 vaccine 05/13/20 R ecorded Medications ARIPiprazole 10 mg oral tablet 10 mg, 1, tablet, By Mouth, Daily, # 30 tablet, Refills 0, Maintenance, 10/21/22 14:42:00 EDT, Partial fill upon patient request if the prescription is for a schedule II opioid drug. Start Date: 10/21/22 Status: Ordered aspirin 81 mg oral tablet [...] opioid drug. Start Date: 03/30/20 Status: Ordered thiothixene 5 mg oral capsule [...] on hemodialysis Confirmed Active Hypertension Confirmed Active Social History Social History Type Response Smoking Status Never (less than 100 in lifetime) entered on: 06/07/19 Sex Male Patient Care team information Care Team Personnel Name: Ad Ewing MD Position: [facility] Renal MD Member Role: Lifetime Consulting Physician Address: Address: [address] [place] [address], [address] [place] [address]- Name: Cammie Conley RN Position: [facility] RN Member Role: Primary Care Nurse Name: Brooke Morales Position: [facility] Outreach Member Role: PCP Address: Address: [address] [place] [address] [place] [address]- Name: Manoj Brunson MD Position: [facility] Renal MD Member Role: Lifetime Consulting Physician Address: Address: [address] [place] [address] [address] [facility] [place] [address]- Care Team Related Persons Name: LEONID HERZOG Address: home [address] [place] [id number]
--- OUTSIDE RECORDS SUMMARY | 2023-08-02 15:55 | XMS_ITS | CCD ---
Author Organization Unknown Address [address] [place] [address] [id number] Care Team Providers Care Dirt Bike Mechanic Name Role Phone LILY HUERTA Attending Physician [phone] [phone] PRONI Deal Registered Nurse [phone] ESTHER Levy Registered Nurse [phone] Vital Signs Vital Sign Value Unit Date/Time [...] Code Start Date Resolved Date Status Tremor [id number] 03/04/2022 Resolved Bipolar disorder [id number] 03/04/2022 Resolved Renal dialysis [id number] 03/04/2022 Resolved Results GLUCOSE FINGER/HEEL CAPILLAR Y [...]
--- OUTSIDE RECORDS SUMMARY | 2023-08-02 15:55 | XMS_ITS | Continuity of Care Document ---
Author Organization [facility] ter Address [address] [place] [id number]- Care Team Providers Care Biological Sciences Instructor Name Role Phone Brooke Morales Primary Care Physician Encounter [facility] Date(s): 02/07/23 - 03/17/[address] [address] Attending Physician: Jose Lopez MD Admitting Physician: [...] Team Personnel Name: Ad Ewing MD Position: [facility] Renal MD Member Role: Lifetime Consulting Physician Address: Address: [address] [place] [address], [address] Name: Cammie Conley RN Position: [facility] RN Member Role: Primary Care Nurse Name: Brooke Morales Position: [facility] Outreach Member Role: PCP Address: Address: [address] [place] [address] of [facility] [address] Name: Manoj Brunson MD Position: [facility] Renal MD Member Role: Lifetime Consulting Physician Address: Address: [address] [place] [address] [address] [facility] [address] Care Team Related Persons Name: LEONID HERZOG Address: home [address] [place] [address], [place] [address]
--- OUTSIDE RECORDS SUMMARY | 2023-08-02 15:55 | XMS_ITS | Continuity of Care Document ---
Author Organization [facility] Address [address] [place] [address]- Care Team Providers Care Custom Marine Canvas Fabricator Name Role Phone Brooke Morales Primary Care Physician Encounter [facility] Date(s): 02/06/23 - 03/08/23 [facility] [address] [place], [place] [address] Allergies, Adverse Reactions, Alerts No Known Medication [...] Team Personnel Name: Ad Ewing MD Position: [facility] Renal MD Member Role: Lifetime Consulting Physician Address: Address: [address] [place] [address], [facility] [address] [place] [address]- Name: Cammie Conley RN Position: [facility] RN Member Role: Primary Care Nurse Name: Brooke Morales Position: [facility] Outreach Member Role: PCP Address: Address: [address] [place] [address] [place] [address]- Name: Manoj Brunson MD Position: [facility] Renal MD Member Role: Lifetime Consulting Physician Address: Address: [address] [place] [address] [address] [facility] [place] [address]- Care Team Related Persons Name: LEONID HERZOG Address: home [address] [place] [address]
[2023-08-02 16:45] VITALS: BMI 24.7
[2023-08-02 16:46] VITALS: BP 124/78; PULSE 75; RESP 20; TEMP 36.6; O2SAT 99
--- NOTE | 2023-08-02 17:28 | PC.ADMIT ---
Addendum entered and electronically signed by Sierra Finn RN 08/02/23 18:24: is HCP. presently in [place] visiting family. Original Note: This is one of multiple admissions to this [facility] at [facility] for this 68 y.o. male. Referred by [facility] Care Team with Dx; Bipolar d/o, Schizoaffective d/o. Pt has hx catatonia and noncompliance. Discharged from [facility] medical unit and arrived on this unit for admission at 1355. Section 12b legal status. Doc to doc/nurse to nurse report done with medical unit prior to admission.: admission orders received. Placed on 5min safety checks, unlocked bathroom upon arrival. Precipitating events to admission: presented to [facility] ED on Sect 12 via EMS due to noncompliance with medications and refusing HD. He was s admitted to medical/surgical floor. Denies substance issues. Medical issues include: end stage renal disease with dialysis 3x weekly, chronic macrocytic anemia. Pt had not been taking his psychiatric meds due to reports of side effects. Received Zyprexa 5mg and Ativan 1mg IM as medication restraint today at 1015 while on medical floor due to refusal of dialysis. Pt completed dialysis after receiving medication IM. On 07/24/23 pt was assessed by mobile crisis in the community after family called police due to pt being missing for 48 hrs. Pt recently drove to [place] alone to see friends and reported no friends in [place]. Pt states he and his were arguing and he drove to [place]. States he ran out of gas, a towel sewer helped him and he drove back home. Pt reports he is tired of dialysis and wants a chance to come off of this. States if his conditions worsens he will resume treatments. Education attempted re: this and pt continues to state he is tired of dialysis as it is taking a toll on his marriage. Alert and oriented to person, place and time. Lacks insight into situation. States he ambulates without assistive device, gait intermittently unsteady; walker provided and Jennie Sanchez, provider, notified. Denies depression and anxiety. Reports recent 20 lb wt loss due to poor appetite. Crisis eval indicates recent paranoia, delusions re: thinking that there are poisons being placed in his dialysis meds which caused him to refuse meds and dialysis.
--- NOTE | 2023-08-02 19:11 | PC.NURSE ---
Pharmacy called at 1840 re: Renvela 800 mg due at 1800, not stocked in pyxix. Pharmacy to stock pyxis with this med; not stocked at present time. Oncoming nursing staff informed.
[2023-08-02 20:33] VITALS: BP 141/82; PULSE 80; RESP 18; TEMP 36; O2SAT 98
--- NOTE | 2023-08-02 20:45 | PC.NURSE ---
Patient has Olanzapine 5 mg IM BID order/provider notified/order changed. Patient refused to take all his HS medication for tonight. He wants to take his medication after seeing the provider.
--- NOTE | 2023-08-03 06:23 | PC.NURSE ---
Patient slept through the night, no distress observed/reported, ambulates steadily with walker, refused his HS medication including Ativan 1 mg TID, PRN Ativan 2 mg IM not administered due order clarity issue authorization rep provider notified, NS IV flush order not done due to inaccessibility provider notified as well, patient is alert and oriented x3, VSS, will continue to monitor
[2023-08-03 07:00] VITALS: BMI 24.7
[2023-08-03 08:42] VITALS: BP 138/81; PULSE 65; RESP 17; TEMP 36.1; O2SAT 95
--- NOTE | 2023-08-03 09:22 | HO.PSYADMNOT ---
[facility] Date of Service: 08/03/23 Chief Complaint: Dayna Sources of Information: patient interviewed, chart reviewed and crisis/core team assessment reviewed HPI Subjective Notes: Section 12B Healthcare Proxy: Yes (AFFIRMED BY COURT) Narrative: The patient is a 68-year-old male, with good social support with end stage renal disease on dialysis, history of bipolar disorder, several other medical comorbidities referred from the medical unit for continuation of care. Apparently the patient after being discharged from this unit several months ago, he became noncompliant with medications become grossly manic. He drove himself to [place] to visit a friend and apparently he was unable to disclose any of this to his . They found out that he was in [place] since there was an MARY transaction and she can. He was initially admitted into Medicine since he was refusing to have dialysis and his medical status was worsening. On the last admission, we affirmed healthcare proxy and his wants him to have all the medical and psychiatric treatment he needs. The case also was discussed with the hospital roof promenade tile setter and since the is the affirmed healthcare proxy we do not need a role years order at this moment. On admission, the patient refused to continue taking his medications. He demanded to talk with me, I explained him that at this moment he does not have any choice regarding treatment since he is affirmed healthcare proxy wants him to take medications. He stated that he feels that he does not have the need of having dialysis, he does not believe that he has any medical problems and he is feeling just fine. I explained him that if his only choice of medications even he takes his by mouth or by injection since his affirmed healthcare proxy wants him to take psychotropics medications for his bipolar disorder. He was able to contract for safety at this moment. Past Psychiatric History: Bipolar d/o ? psychosis . M [address] [facility] in 1990 OP: Ramya Jacobs NP First psychotic/manic break in early . 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 Substance History: Denies Trauma History: Deferred Diagnostics Vital Signs (24Hr): Vital Signs - 24 hr 08/02/23 16:46 08/02/23 20:33 08/03/23 08:42 Temperature 97.8 F 96.8 F 97 F Pulse Rate 75 80 65 Respiratory Rate 20 18 17 Blood Pressure 124/78 141/82 H 138/81 Pulse Oximetry 99 98 95 Oxygen Delivery Method Room Air Room Air Room Air BMI result Body Mass Index 24.7 Meds/Allergies Meds Home Medications ?Medication ?Instructions ?Recorded ?Confirmed ?Type benztropine 1 mg tablet 2 mg PO BID 07/24/23 08/02/23 History sevelamer carbonate 800 mg tablet 800 mg PO TID@0800,1200,1800 07/24/23 08/02/23 History vitamin B complex and vitamin C 1 cap PO DAILY 07/24/23 08/02/23 History no.20-folic acid 1 mg capsule (Renal Caps) Allergies Allergies Allergy/AdvReac Type Severity Reaction Status Date / Time No Known Allergies Allergy Verified 07/24/23 11:18 Mental Status Exam Mental Status Exam Patient Appearance: Appropriate (On hospital gowns) Patient Orientation: Person and Situation Level of Consciousness: Awake and Appropriate Patient Behavior: Guarded and Passive Mood Description: Withdrawn Affect Description: Constricted Patient Cognition Impaired: Yes Ability to Follow Directions: Good Speech Pattern: Clear Hallucinations: None Delusions: Grandiose and Ideas of Reference Thought Process: Distracted and Slowed Thinking Thought Content: positive for [place], positive for Perseveration and positive for Thought Blocking Judgement: Poor Assessment & Plan Assessment & Plan (1) ESRD needing dialysis: Status: Acute Code(s): N18.6 - End stage renal disease; Z99.2 - Dependence on renal dialysis (2) Anemia: Status: Acute Code(s): D64.9 - Anemia, unspecified (3) Bipolar disorder: Status: Acute Code(s): F31.9 - Bipolar disorder, unspecified Plan The patient is a 68-year-old male with end-stage renal disease, bipolar disorder and other medical comorbidities was transferred from Medicine after being medically cleared. The patient has an affirmed healthcare proxy, his wants him to have dialysis and all the psychiatric treatment and if the patient does not want to comply, his has authorized to use IM and other measures. At this moment the patient does not have capacity to take informed decisions. Plan 1. We will try to gather more collateral information. 2. Continue with psychotropics, Zyprexa as backup IM if the patient refused. 3. We will continue with dialysis as prescribed if the patient does not want to go to dialysis we will have to medicate him and transferred to the dialysis unit. 4. Continue with all medical treatment. 5. Reassessment results Patient educated on: diagnosis and medical condition Reason for continued inpatient stay Substantial Risk for: inability to function, rapid decompensation and med/psych decompensation Statement Statement: I have reviewed the history and physical and performed a pertinent examination on my patient. No changes have occurred unless specified. If the History and Physical was not performed prior to admission, the Hospitalist's service will be consulted for completing the admission physical. Time Spent With Patient Time: Total time managing care of this patient today __45__ minutes.
[2023-08-03] MEDS: OLANZapine 10 MG VIAL 5 MG IM ×2 (10:40→20:48)
[2023-08-03] MEDS: LORazepam 2 MG/ML VIAL IM ×2 (10:40→15:15)
--- NOTE | 2023-08-03 17:07 | PC.NURSE ---
Patient refused all scheduled medications including his Lorazepam and olanzapine. Patient made aware by this nurse and the provider Dr. Fernandez that he will need IM injection's of Ativan and Zyprexa if he refuses PO. Patient still refused pills and stated Fine, give me the shot, I'm not taking the pills . Patient calm and cooperative during administration of injections and no physical restraint/holding of patient was used.
[2023-08-03 20:09] VITALS: BP 124/76; PULSE 67; RESP 17; TEMP 36; O2SAT 99
[2023-08-03] MEDS: LORazepam 1 MG TABLET PO (23:29)
--- NOTE | 2023-08-03 23:35 | PC.NURSE ---
Patient refused HS PO medication per order Olanzapine 5 mg IM and Ativan 2 mg IM must be administered, Olanzapine 5 mg IM administered at 2047 patient compliant however Ativan 2 mg IM is not available due to manner in which order is written. Provider notified/ordered not to administer and asked to document patient already received at 1515, patient later came to report he cant sleep attempted to offer his HS Ativan 1 mg/agreed to take, med crushed/mixed with sherbet/patient took it at 2329 pending effect.
[2023-08-04 07:58] VITALS: BP 183/91; PULSE 71; RESP 18; TEMP 35.9; O2SAT 100
[2023-08-04] MEDS: LORazepam 2 MG/ML VIAL IM ×3 (08:19→21:33)
--- NOTE | 2023-08-04 13:43 | MHC.CLN ---
NUTRITION CONSULT FOR RECENT WEIGHT LOSS. REVIEW OF WEIGHT HX SHOWS WEIGHT LOSS X ONE YEAR -15.6%. WEIGHT LOSS NOT SIGNIFICANT PER CLINICAL PARAMETERS. LIKELY CONTRIBUTOR TO WEIGHT FLUCTUATION IS CHANGE IN FLUID STATUS WITH ESRD AND HD. DIET=2 G SODIUM. MONITOR WEEKLY FOR INTAKE AND WEIGHT.
--- NOTE | 2023-08-04 14:29 | HO.PSYCHPN ---
Subjective Subjective Date of Service: 08/04/23 Reason For Visit: Dayna Subjective Notes: Conditional Voluntary (By affirmed healthcare proxy) Healthcare Proxy: Yes Interim History: Today in the morning the patient refused to go to dialysis and I explained him that he can not refused since his affirmed healthcare proxy wants him to do the treatment. I explained him that he does not have the choice only change that he has states that he could go and cooperate or we will forced him to go against his will. The patient showed very poor insight into his condition stating he does not have chronic renal disease. He remains the elusive with no insight into his condition. Mental Status Exam Mental Status Exam Patient Appearance: Well Grooomed and Appropriate Patient Orientation: Person and Situation Level of Consciousness: Awake and Appropriate Patient Behavior: Guarded and Passive Mood Description: Withdrawn Affect Description: Blunted Patient Cognition Impaired: Yes Ability to Follow Directions: Good Speech Pattern: Clear Hallucinations: None Delusions: Paranoid Ideation and Ideas of Reference Thought Process: Distracted and Slowed Thinking Thought Content: positive for [place] and positive for Poverty of Content Judgement: Poor Diagnostics Vital Signs (24Hr): Vital Signs - 24 hr 08/03/23 20:09 08/04/23 07:58 Temperature 96.8 F 96.6 F L Pulse Rate 67 71 Respiratory Rate 17 18 Blood Pressure 124/76 183/91 H Pulse Oximetry 99 100 Oxygen Delivery Method Room Air Room Air BMI result Body Mass Index 24.7 Medications Medications Current Medications Acetaminophen (Acetaminophen 325 Mg Tablet) 650 mg PO Q6H PRN PRN Reason: Pain, Mild (Pain Scale 1-3) Al Hydroxide/Mg Hydroxide (Magnesium Hydrox/Alum Hydrox 30 Ml Oral.Susp) 30 ml PO Q6H PRN PRN Reason: Heartburn/Nausea Aripiprazole (Aripiprazole 15 Mg Tablet) 15 mg PO DAILY [facility] Last Admin: 08/04/23 10:00 Dose: Not Given Aspirin (Aspirin Enteric Coated 81 Mg Tablet.Dr) 81 mg PO DAILY [facility] Last Admin: 08/04/23 10:00 Dose: Not Given Benztropine Mesylate (Benztropine Mesylate 1 Mg Tablet) 1 mg PO BID [facility] Last Admin: 08/04/23 09:59 Dose: Not Given Hydroxyzine HCl (Hydroxyzine Hcl 25 Mg Tablet) 25 mg PO Q6H PRN PRN Reason: Anxiety Lorazepam (Lorazepam 2 Mg/Ml Vial) 2 mg IM BID PRN PRN Reason: REFUSAL OF PO LORAZEPAM Last Admin: 08/03/23 15:15 Dose: 2 mg Lorazepam (Lorazepam 1 Mg Tablet) 1 mg PO TID [facility] Last Admin: 08/04/23 10:00 Dose: Not Given Magnesium Hydroxide (Milk Of Magnesia 30 Ml Oral.Susp) 30 ml PO DAILY PRN PRN Reason: Constipation Multivitamins/Vitamin C (Multivitamin Tablet) 1 tab PO DAILY [facility] Last Admin: 08/04/23 10:00 Dose: Not Given Olanzapine (Olanzapine 10 Mg Vial) 5 mg IM Q8H PRN PRN Reason: Anxiety/agitation Last Admin: 08/03/23 20:48 Dose: 5 mg Olanzapine (Olanzapine 2.5 Mg Tablet) 2.5 mg PO BID [facility] Last Admin: 08/04/23 09:59 Dose: Not Given Ondansetron HCl (Ondansetron Hcl 4 Mg/2 Ml Vial) 4 mg IVPUSH Q8H PRN PRN Reason: Nausea and Vomiting Senna (Sennosides 8.6 Mg Tablet) 17.2 mg PO BEDTIME PRN PRN Reason: Constipation Sevelamer Carbonate (Sevelamer Carbonate Tablet 800 Mg Tablet) 800 mg PO TID@0800,1200,1800 [facility] Last Admin: 08/04/23 12:45 Dose: Not Given Trazodone HCl (Trazodone Hcl 50 Mg Tablet) 50 mg PO BEDTIME MRX1 PRN PRN Reason: Insomnia Allergies Allergies Allergy/AdvReac Type Severity Reaction Status Date / Time No Known Allergies Allergy Verified 07/24/23 11:18 Assessment & Plan Assessment & Plan (1) ESRD needing dialysis: Status: Acute Code(s): N18.6 - End stage renal disease; Z99.2 - Dependence on renal dialysis (2) Anemia: Status: Acute Code(s): D64.9 - Anemia, unspecified (3) Bipolar disorder: Status: Acute Code(s): F31.9 - Bipolar disorder, unspecified Plan The patient is a 68-year-old male with end-stage renal disease, bipolar disorder and other medical comorbidities was transferred from [facility] after being medically cleared. The patient has an affirmed healthcare proxy, his wants him to have dialysis and all the psychiatric treatment and if the patient does not want to comply, his has authorized to use IM and other measures. At this moment the patient does not have capacity to take informed decisions. Plan 1. We will try to gather more collateral information. 2. Continue with psychotropics, Zyprexa as backup IM if the patient refused. 3. We will continue with dialysis as prescribed if the patient does not want to go to dialysis we will have to medicate him and transferred to the dialysis unit. 4. Continue with all medical treatment. 5. Reassessment results Reason for continued inpatient stay Substantial Risk for: inability to function, rapid decompensation and med/psych decompensation Time Spent With Patient Time: Total time managing care of this patient today __20__ minutes.
--- NOTE | 2023-08-04 18:28 | PC.NURSE ---
Dr Fernandez clarified PRN IM Ativan use today. He would only like it used for the am and HS dose of PO Ativan if the patient refuses it PO. Also the Zofran should be kept IV because it would be used at dialysis if the patient gets nauseated there. The patient already had 2 doses of IM Ativan today and if you need something prn for anxiety tonight , please notify Dr. Sims. Patient's called from [place] and will be home next week. was told that patient was initially refusing dialysis today but eventually went after IM Ativan was given. Dr. Fernandez spoke to patient about going home and told him if he starts taking his medication by mouth regularly, he maybe will be able to go home with his soon.
[2023-08-05 08:01] VITALS: BP 106/71; PULSE 68; RESP 18; TEMP 36.1; O2SAT 97
[2023-08-05] MEDS: OLANZapine 10 MG VIAL 5 MG IM ×2 (09:34→21:05)
[2023-08-05] MEDS: LORazepam 2 MG/ML VIAL IM ×2 (09:35→21:04)
--- NOTE | 2023-08-05 09:44 | PC.NURSE ---
Refused all PO meds and willingly took IM Ativan and IM Zyprexa. Dr. Fernandez notified.
--- NOTE | 2023-08-05 10:26 | HO.PSYCHPN ---
Subjective Subjective Date of Service: 08/05/23 Reason For Visit: Dayna Subjective Notes: Conditional Voluntary (By healthcare proxy) Healthcare Proxy: Yes (Affirmed healthcare proxy) Interim History: The nursing staff reported the patient have decline his medication he needed IM. He remains paranoid and he slept 6 hours. On interview the patient wanted to stop treatment and explained him that it has not his choice since his healthcare proxy has been affirm in court wants him to take medications. Mental Status Exam Mental Status Exam Patient Appearance: Appropriate Patient Orientation: Person Level of Consciousness: Awake Patient Behavior: Guarded and Passive Mood Description: Withdrawn Affect Description: Constricted Patient Cognition Impaired: Yes Ability to Follow Directions: Good Speech Pattern: Clear Hallucinations: None Delusions: Paranoid Ideation and Ideas of Reference Thought Process: Distracted and Slowed Thinking Thought Content: positive for [place], positive for Perseveration and positive for Loose Associations Judgement: Poor Diagnostics Vital Signs (24Hr): Vital Signs - 24 hr 08/05/23 08:01 Temperature 97.0 F Pulse Rate 68 Respiratory Rate 18 Blood Pressure 106/71 Pulse Oximetry 97 Oxygen Delivery Method Room Air BMI result Body Mass Index 24.7 Medications Medications Current Medications Acetaminophen (Acetaminophen 325 Mg Tablet) 650 mg PO Q6H PRN PRN Reason: Pain, Mild (Pain Scale 1-3) Al Hydroxide/Mg Hydroxide (Magnesium Hydrox/Alum Hydrox 30 Ml Oral.Susp) 30 ml PO Q6H PRN PRN Reason: Heartburn/Nausea Aripiprazole (Aripiprazole 15 Mg Tablet) 15 mg PO DAILY [facility] Last Admin: 08/05/23 09:42 Dose: Not Given Aspirin (Aspirin Enteric Coated 81 Mg Tablet.) 81 mg PO DAILY [facility] Last Admin: 08/05/23 09:42 Dose: Not Given Benztropine Mesylate (Benztropine Mesylate 1 Mg Tablet) 1 mg PO BID [facility] Last Admin: 08/05/23 09:42 Dose: Not Given Hydroxyzine HCl (Hydroxyzine Hcl 25 Mg Tablet) 25 mg PO Q6H PRN PRN Reason: Anxiety Lorazepam (Lorazepam 2 Mg/Ml Vial) 2 mg IM BID PRN PRN Reason: REFUSAL OF PO LORAZEPAM Last Admin: 08/05/23 09:35 Dose: 2 mg Lorazepam (Lorazepam 1 Mg Tablet) 1 mg PO TID [facility] Last Admin: 08/05/23 09:42 Dose: Not Given Magnesium Hydroxide (Milk Of Magnesia 30 Ml Oral.Susp) 30 ml PO DAILY PRN PRN Reason: Constipation Multivitamins/Vitamin C (Multivitamin Tablet) 1 tab PO DAILY [facility] Last Admin: 08/05/23 09:43 Dose: Not Given Olanzapine (Olanzapine 10 Mg Vial) 5 mg IM Q8H PRN PRN Reason: Anxiety/agitation Last Admin: 08/05/23 09:34 Dose: 5 mg Olanzapine (Olanzapine 2.5 Mg Tablet) 2.5 mg PO BID [facility] Last Admin: 08/05/23 09:43 Dose: Not Given Ondansetron HCl (Ondansetron Hcl 4 Mg/2 Ml Vial) 4 mg IVPUSH Q8H PRN PRN Reason: Nausea and Vomiting Senna (Sennosides 8.6 Mg Tablet) 17.2 mg PO BEDTIME PRN PRN Reason: Constipation Sevelamer Carbonate (Sevelamer Carbonate Tablet 800 Mg Tablet) 800 mg PO TID@0800,1200,1800 [facility] Last Admin: 08/05/23 09:42 Dose: Not Given Trazodone HCl (Trazodone Hcl 50 Mg Tablet) 50 mg PO BEDTIME MRX1 PRN PRN Reason: Insomnia Allergies Allergies Allergy/AdvReac Type Severity Reaction Status Date / Time No Known Allergies Allergy Verified 07/24/23 11:18 Assessment & Plan Assessment & Plan (1) ESRD needing dialysis: Status: Acute Code(s): N18.6 - End stage renal disease; Z99.2 - Dependence on renal dialysis (2) Anemia: Status: Acute Code(s): D64.9 - Anemia, unspecified (3) Bipolar disorder: Status: Acute Code(s): F31.9 - Bipolar disorder, unspecified Plan The patient is a 68-year-old male with end-stage renal disease, bipolar disorder and other medical comorbidities was transferred from Medicine after being medically cleared. The patient has an affirmed healthcare proxy, his wants him to have dialysis and all the psychiatric treatment and if the patient does not want to comply, his has authorized to use IM and other measures. At this moment the patient does not have capacity to take informed decisions. Plan 1. We will try to gather more collateral information. 2. Continue with psychotropics, Zyprexa as backup IM if the patient refused. 3. We will continue with dialysis as prescribed if the patient does not want to go to dialysis we will have to medicate him and transferred to the dialysis unit. 4. Continue with all medical treatment. 5. Reassessment results Reason for continued inpatient stay Substantial Risk for: inability to function, rapid decompensation and med/psych decompensation Time Spent With Patient Time: Total time managing care of this patient today __20__ minutes.
[2023-08-06 07:54] VITALS: BP 166/86; PULSE 72; RESP 16; TEMP 36.4; O2SAT 99
[2023-08-06] MEDS: LORazepam 2 MG/ML VIAL IM (09:46)
[2023-08-06] MEDS: OLANZapine 10 MG VIAL 5 MG IM (09:46)
--- NOTE | 2023-08-06 10:13 | HO.PSYCHPN ---
Subjective Subjective Date of Service: 08/06/23 Reason For Visit: Dayna Subjective Notes: Conditional Voluntary Interim History: The nursing staff reported the patient has refused his p.o. medications that he took IM. He was up until midnight but later on he slept. On interview the patient is still perseverative stating that he does not need medications, he doesn't want to have dialysis or any other procedure or treatment. Mental Status Exam Mental Status Exam Patient Appearance: Appropriate (Hospital gowns) Patient Orientation: Person and Situation Level of Consciousness: Awake and Appropriate Patient Behavior: Guarded and Passive Mood Description: Withdrawn Affect Description: Labile Patient Cognition Impaired: Yes Ability to Follow Directions: Good Speech Pattern: Clear Hallucinations: None Delusions: Paranoid Ideation and Ideas of Reference Thought Process: Distracted and Slowed Thinking Thought Content: positive for [place] and positive for Poverty of Content Judgement: Poor Diagnostics Vital Signs (24Hr): Vital Signs - 24 hr 08/06/23 07:54 Temperature 97.5 F Pulse Rate 72 Respiratory Rate 16 Blood Pressure 166/86 H Pulse Oximetry 99 Oxygen Delivery Method Room Air BMI result Body Mass Index 24.7 Medications Medications Current Medications Acetaminophen (Acetaminophen 325 Mg Tablet) 650 mg PO Q6H PRN PRN Reason: Pain, Mild (Pain Scale 1-3) Al Hydroxide/Mg Hydroxide (Magnesium Hydrox/Alum Hydrox 30 Ml Oral.Susp) 30 ml PO Q6H PRN PRN Reason: Heartburn/Nausea Aripiprazole (Aripiprazole 15 Mg Tablet) 15 mg PO DAILY [facility] Last Admin: 08/06/23 09:02 Dose: Not Given Aspirin (Aspirin Enteric Coated 81 Mg Tablet.) 81 mg PO DAILY [facility] Last Admin: 08/06/23 09:02 Dose: Not Given Benztropine Mesylate (Benztropine Mesylate 1 Mg Tablet) 1 mg PO BID [facility] Last Admin: 08/06/23 09:02 Dose: Not Given Hydroxyzine HCl (Hydroxyzine Hcl 25 Mg Tablet) 25 mg PO Q6H PRN PRN Reason: Anxiety Lorazepam (Lorazepam 2 Mg/Ml Vial) 2 mg IM BID PRN PRN Reason: REFUSAL OF PO LORAZEPAM Last Admin: 08/06/23 09:46 Dose: 2 mg Lorazepam (Lorazepam 1 Mg Tablet) 1 mg PO TID [facility] Last Admin: 08/06/23 09:03 Dose: Not Given Magnesium Hydroxide (Milk Of Magnesia 30 Ml Oral.Susp) 30 ml PO DAILY PRN PRN Reason: Constipation Multivitamins/Vitamin C (Multivitamin Tablet) 1 tab PO DAILY [facility] Last Admin: 08/06/23 09:03 Dose: Not Given Olanzapine (Olanzapine 10 Mg Vial) 5 mg IM Q8H PRN PRN Reason: Anxiety/agitation Last Admin: 08/06/23 09:46 Dose: 5 mg Olanzapine (Olanzapine 2.5 Mg Tablet) 2.5 mg PO BID [facility] Last Admin: 08/06/23 09:03 Dose: Not Given Ondansetron HCl (Ondansetron Hcl 4 Mg/2 Ml Vial) 4 mg IVPUSH Q8H PRN PRN Reason: Nausea and Vomiting Senna (Sennosides 8.6 Mg Tablet) 17.2 mg PO BEDTIME PRN PRN Reason: Constipation Sevelamer Carbonate (Sevelamer Carbonate Tablet 800 Mg Tablet) 800 mg PO TID@0800,1200,1800 [facility] Last Admin: 08/06/23 09:02 Dose: Not Given Trazodone HCl (Trazodone Hcl 50 Mg Tablet) 50 mg PO BEDTIME MRX1 PRN PRN Reason: Insomnia Allergies Allergies Allergy/AdvReac Type Severity Reaction Status Date / Time No Known Allergies Allergy Verified 07/24/23 11:18 Assessment & Plan Assessment & Plan (1) ESRD needing dialysis: Status: Acute Code(s): N18.6 - End stage renal disease; Z99.2 - Dependence on renal dialysis (2) Anemia: Status: Acute Code(s): D64.9 - Anemia, unspecified (3) Bipolar disorder: Status: Acute Code(s): F31.9 - Bipolar disorder, unspecified Plan The patient is a 68-year-old male with end-stage renal disease, bipolar disorder and other medical comorbidities was transferred from Medicine after being medically cleared. The patient has an affirmed healthcare proxy, his wants him to have dialysis and all the psychiatric treatment and if the patient does not want to comply, his has authorized to use IM and other measures. At this moment the patient does not have capacity to take informed decisions. Plan 1. We will try to gather more collateral information. 2. Continue with psychotropics, Zyprexa as backup IM if the patient refused. 3. We will continue with dialysis as prescribed if the patient does not want to go to dialysis we will have to medicate him and transferred to the dialysis unit. 4. Continue with all medical treatment. 5. Reassessment results Reason for continued inpatient stay Substantial Risk for: inability to function, rapid decompensation and med/psych decompensation Time Spent With Patient Time: Total time managing care of this patient today __20__ minutes.
--- NOTE | 2023-08-06 10:18 | PC.NURSE ---
This morning BP 166/86 and Marco declined to take po medications despite education from this script writer. Marco accepted IM Ativan and Zyprexa and requested that they be given in deltoids. This script writer explained the importance of switching injection sites however Marco replied I don't want to have shots all over my body. Will continue to educate Marco and attempt to have him agree to rotation of injection sites. Dr. Fernandez notified of refusal of medications and bp.
[2023-08-06 20:16] VITALS: BP 169/91; PULSE 68; RESP 16; TEMP 36.1; O2SAT 100
[2023-08-06] MEDS: OLANZapine 2.5 MG TABLET PO (20:22)
[2023-08-06] MEDS: LORazepam 1 MG TABLET PO (20:22)
[2023-08-07 08:00] VITALS: BP 172/76; PULSE 68; RESP 18; TEMP 36.4; O2SAT 100
[2023-08-07] MEDS: LORazepam 1 MG TABLET PO ×3 (08:04→20:17)
[2023-08-07] MEDS: OLANZapine 2.5 MG TABLET PO ×2 (08:05→20:17)
--- NOTE | 2023-08-07 11:13 | P.PNPSI_ITS ---
Subjective Subjective Date of Service: 08/07/23 Reason For Visit: Dayna Subjective Notes: Conditional Voluntary (By affirmed healthcare proxy) Healthcare Proxy: Yes Interim History: The patient has refused he is medical p.o. meds, he was sent to dialysis. He is aware that he does not have a choice. Today he took Zyprexa and Ativan p.o.. He has poor insight into his condition Mental Status Exam Mental Status Exam Patient Appearance: Appropriate Patient Orientation: Person and Situation Level of Consciousness: Awake Patient Behavior: Guarded and Passive Mood Description: Withdrawn Affect Description: Blunted Patient Cognition Impaired: Yes Ability to Follow Directions: Fair Speech Pattern: Impoverished Hallucinations: None Delusions: Paranoid Ideation, Grandiose and Ideas of Reference Thought Process: Illogical Thought Content: positive for [place] and positive for Poverty of Content Judgement: Poor Diagnostics Vital Signs (24Hr): Vital Signs - 24 hr 08/06/23 20:16 08/07/23 08:00 Temperature 97 F 97.6 F Pulse Rate 68 68 Respiratory Rate 16 18 Blood Pressure 169/91 H 172/76 H Pulse Oximetry 100 100 Oxygen Delivery Method Room Air Room Air BMI result Body Mass Index 24.7 Medications Medications Current Medications Acetaminophen (Acetaminophen 325 Mg Tablet) 650 mg PO Q6H PRN PRN Reason: Pain, Mild (Pain Scale 1-3) Al Hydroxide/Mg Hydroxide (Magnesium Hydrox/Alum Hydrox 30 Ml Oral.Susp) 30 ml PO Q6H PRN PRN Reason: Heartburn/Nausea Aripiprazole (Aripiprazole 15 Mg Tablet) 15 mg PO DAILY [facility] Last Admin: 08/07/23 08:06 Dose: Not Given Aspirin (Aspirin Enteric Coated 81 Mg Tablet.) 81 mg PO DAILY [facility] Last Admin: 08/07/23 08:06 Dose: Not Given Benztropine Mesylate (Benztropine Mesylate 1 Mg Tablet) 1 mg PO BID [facility] Last Admin: 08/07/23 08:06 Dose: Not Given Hydroxyzine HCl (Hydroxyzine Hcl 25 Mg Tablet) 25 mg PO Q6H PRN PRN Reason: Anxiety Lorazepam (Lorazepam 2 Mg/Ml Vial) 2 mg IM BID PRN PRN Reason: REFUSAL OF PO LORAZEPAM Last Admin: 08/06/23 09:46 Dose: 2 mg Lorazepam (Lorazepam 1 Mg Tablet) 1 mg PO TID [facility] Last Admin: 08/07/23 08:04 Dose: 1 mg Magnesium Hydroxide (Milk Of Magnesia 30 Ml Oral.Susp) 30 ml PO DAILY PRN PRN Reason: Constipation Multivitamins/Vitamin C (Multivitamin Tablet) 1 tab PO DAILY [facility] Last Admin: 08/07/23 08:06 Dose: Not Given Olanzapine (Olanzapine 10 Mg Vial) 5 mg IM Q8H PRN PRN Reason: Anxiety/agitation Last Admin: 08/06/23 09:46 Dose: 5 mg Olanzapine (Olanzapine 2.5 Mg Tablet) 2.5 mg PO BID [facility] Last Admin: 08/07/23 08:05 Dose: 2.5 mg Ondansetron HCl (Ondansetron Hcl 4 Mg/2 Ml Vial) 4 mg IVPUSH Q8H PRN PRN Reason: Nausea and Vomiting Senna (Sennosides 8.6 Mg Tablet) 17.2 mg PO BEDTIME PRN PRN Reason: Constipation Sevelamer Carbonate (Sevelamer Carbonate Tablet 800 Mg Tablet) 800 mg PO TID@0800,1200,1800 [facility] Last Admin: 08/07/23 08:06 Dose: Not Given Trazodone HCl (Trazodone Hcl 50 Mg Tablet) 50 mg PO BEDTIME MRX1 PRN PRN Reason: Insomnia Allergies Allergies Allergy/AdvReac Type Severity Reaction Status Date / Time No Known Allergies Allergy Verified 07/24/23 11:18 Assessment & Plan Assessment & Plan (1) ESRD needing dialysis: Status: Acute Code(s): N18.6 - End stage renal disease; Z99.2 - Dependence on renal dialysis (2) Anemia: Status: Acute Code(s): D64.9 - Anemia, unspecified (3) Bipolar disorder: Status: Acute Code(s): F31.9 - Bipolar disorder, unspecified Plan The patient is a 68-year-old male with end-stage renal disease, bip olar disorder and other medical comorbidities was transferred from Medicine after being medically cleared. The patient has an affirmed healthcare proxy, his wants him to have dialysis and all the psychiatric treatment and if the patient does not want to comply, his has authorized to use IM and other measures. At this moment the patient does not have capacity to take informed decisions. Plan 1. We will try to gather more collateral information. 2. Continue with psychotropics, Zyprexa as backup IM if the patient refused. 3. We will continue with dialysis as prescribed if the patient does not want to go to dialysis we will have to medicate him and transferred to the dialysis unit. 4. Continue with all medical treatment. 5. Reassessment results Reason for continued inpatient stay Substantial Risk for: inability to function, rapid decompensation and med/psych decompensation Time Spent With Patient Time: Total time managing care of this patient today __20__ minutes.
[2023-08-07 20:13] VITALS: BP 132/74; PULSE 72; RESP 17; TEMP 36; O2SAT 100
[2023-08-08 08:00] VITALS: BP 119/68; PULSE 69; RESP 18; TEMP 36.4; O2SAT 100
[2023-08-08] MEDS: ARIPiprazole 15 MG TABLET PO (08:28)
[2023-08-08] MEDS: OLANZapine 2.5 MG TABLET PO ×2 (08:29→20:07)
[2023-08-08] MEDS: Benztropine Mesylate 1 MG TABLET PO (08:29)
[2023-08-08] MEDS: LORazepam 1 MG TABLET PO ×3 (08:29→20:07)
[2023-08-08] MEDS: Multivitamin TABLET 1 TAB PO (08:29)
[2023-08-08] MEDS: Aspirin Enteric Coated 81 MG TABLET.DR PO (08:29)
--- NOTE | 2023-08-08 12:59 | HO.PSYCHPN ---
Subjective Subjective Date of Service: 08/08/23 Reason For Visit: Dayna Subjective Notes: Conditional Voluntary (By affirmed healthcare proxy) Healthcare Proxy: Yes Interim History: The nursing staff reported the patient went to dialysis yesterday. He had been isolative slept 8 hours. Today he took his p.o. medications. On interview the patient remains with blunted affect denies new symptoms. Mental Status Exam Mental Status Exam Patient Appearance: Appropriate Patient Orientation: Person Level of Consciousness: Awake Patient Behavior: Guarded and Passive Mood Description: Withdrawn Affect Description: Constricted Patient Cognition Impaired: Yes Ability to Follow Directions: Good Speech Pattern: Clear Hallucinations: None Delusions: Ideas of Reference Thought Process: Distracted and Slowed Thinking Thought Content: positive for [place] and positive for Poverty of Content Judgement: Poor Diagnostics Vital Signs (24Hr): Vital Signs - 24 hr 08/07/23 20:13 08/08/23 08:00 Temperature 96.8 F 97.6 F Pulse Rate 72 69 Respiratory Rate 17 18 Blood Pressure 132/74 119/68 Pulse Oximetry 100 100 Oxygen Delivery Method Room Air Room Air BMI result Body Mass Index 24.7 Medications Medications Current Medications Acetaminophen (Acetaminophen 325 Mg Tablet) 650 mg PO Q6H PRN PRN Reason: Pain, Mild (Pain Scale 1-3) Al Hydroxide/Mg Hydroxide (Magnesium Hydrox/Alum Hydrox 30 Ml Oral.Susp) 30 ml PO Q6H PRN PRN Reason: Heartburn/Nausea Aripiprazole (Aripiprazole 15 Mg Tablet) 15 mg PO DAILY [facility] Last Admin: 08/08/23 08:28 Dose: 15 mg Aspirin (Aspirin Enteric Coated 81 Mg Tablet.) 81 mg PO DAILY [facility] Last Admin: 08/08/23 08:29 Dose: 81 mg Benztropine Mesylate (Benztropine Mesylate 1 Mg Tablet) 1 mg PO BID [facility] Last Admin: 08/08/23 08:29 Dose: 1 mg Hydroxyzine HCl (Hydroxyzine Hcl 25 Mg Tablet) 25 mg PO Q6H PRN PRN Reason: Anxiety Lorazepam (Lorazepam 2 Mg/Ml Vial) 2 mg IM BID PRN PRN Reason: REFUSAL OF PO LORAZEPAM Last Admin: 08/06/23 09:46 Dose: 2 mg Lorazepam (Lorazepam 1 Mg Tablet) 1 mg PO TID [facility] Last Admin: 08/08/23 08:29 Dose: 1 mg Magnesium Hydroxide (Milk Of Magnesia 30 Ml Oral.Susp) 30 ml PO DAILY PRN PRN Reason: Constipation Multivitamins/Vitamin C (Multivitamin Tablet) 1 tab PO DAILY [facility] Last Admin: 08/08/23 08:29 Dose: 1 tab Olanzapine (Olanzapine 10 Mg Vial) 5 mg IM Q8H PRN PRN Reason: Anxiety/agitation Last Admin: 08/06/23 09:46 Dose: 5 mg Olanzapine (Olanzapine 2.5 Mg Tablet) 2.5 mg PO BID [facility] Last Admin: 08/08/23 08:29 Dose: 2.5 mg Ondansetron HCl (Ondansetron Hcl 4 Mg/2 Ml Vial) 4 mg IVPUSH Q8H PRN PRN Reason: Nausea and Vomiting Senna (Sennosides 8.6 Mg Tablet) 17.2 mg PO BEDTIME PRN PRN Reason: Constipation Sevelamer Carbonate (Sevelamer Carbonate Tablet 800 Mg Tablet) 800 mg PO TID@0800,1200,1800 [facility] Last Admin: 08/08/23 12:00 Dose: Not Given Trazodone HCl (Trazodone Hcl 50 Mg Tablet) 50 mg PO BEDTIME MRX1 PRN PRN Reason: Insomnia Allergies Allergies Allergy/AdvReac Type Severity Reaction Status Date / Time No Known Allergies Allergy Verified 07/24/23 11:18 Assessment & Plan Assessment & Plan (1) ESRD needing dialysis: Status: Acute Code(s): N18.6 - End stage renal disease; Z99.2 - Dependence on renal dialysis (2) Anemia: Status: Acute Code(s): D64.9 - Anemia, unspecified (3) Bipolar disorder: Status: Acute Code(s): F31.9 - Bipolar disorder, unspecified Plan The patient is a 68-year-old male with end-stage renal disease, bipolar disorder and other medical comorbidities was transferred from Medicine after being medically cleared. The patient has an affirmed healthcare proxy, his wants him to have dialysis and all the psychiatric treatment and if the patient does not want to comply, his has authorized to use IM and other measures. At this moment the patient does not have capacity to take informed decisions. Plan 1. We will try to gather more collateral information. 2. Continue with psychotropics, Zyprexa as backup IM if the patient refused. 3. We will continue with dialysis as prescribed if the patient does not want to go to dialysis we will have to medicate him and transferred to the dialysis unit. 4. Continue with all medical treatment. 5. Reassessment results Reason for continued inpatient stay Substantial Risk for: inability to function, rapid decompensation and med/psych decompensation Time Spent With Patient Time: Total time managing care of this patient today __20__ minutes.
[2023-08-08 20:05] VITALS: BP 127/70; PULSE 79; RESP 16; TEMP 36.6; O2SAT 96
[2023-08-09 12:10] VITALS: BP 116/67; PULSE 61; RESP 15; TEMP 37.1; O2SAT 100
[2023-08-09] MEDS: Multivitamin TABLET 1 TAB PO (12:11)
[2023-08-09] MEDS: Aspirin Enteric Coated 81 MG TABLET.DR PO (12:11)
[2023-08-09] MEDS: ARIPiprazole 15 MG TABLET PO (12:11)
[2023-08-09] MEDS: Benztropine Mesylate 1 MG TABLET PO (12:11)
[2023-08-09] MEDS: OLANZapine 2.5 MG TABLET PO ×2 (12:12→20:18)
[2023-08-09] MEDS: LORazepam 1 MG TABLET PO ×3 (12:12→20:18)
--- NOTE | 2023-08-09 12:32 | P.PNPSI_ITS ---
Subjective Subjective Date of Service: 08/09/23 Reason For Visit: Dayna Subjective Notes: Conditional Voluntary (By affirmed healthcare proxy.) Healthcare Proxy: Yes Interim History: The nursing staff reported the patient took all his meds but not his renal medication in the morning. In the evening he refused his Zyprexa needed IM. The social media specialist reported that we are going to have a meeting with his next Monday. On interview the patient denies new symptoms I advised him to take p.o. medications and so far, he has been compliant in the AM. I encourage to continue treatment. The social media specialist contact his reported that he is on Depakote and a typical antipsychotic Mental Status Exam Mental Status Exam Patient Appearance: Appropriate (On hospital gowns) and Unkempt Patient Orientation: Person Level of Consciousness: Awake Patient Behavior: Guarded and Passive Mood Description: Withdrawn Affect Description: Constricted Patient Cognition Impaired: Yes Ability to Follow Directions: Good Speech Pattern: Clear Hallucinations: None Delusions: Grandiose and Ideas of Reference Thought Process: Distracted and Slowed Thinking Thought Content: positive for [place] and positive for [place] Judgement: Poor Diagnostics Vital Signs (24Hr): Vital Signs - 24 hr 08/08/23 20:05 08/09/23 12:10 Temperature 97.8 F 98.7 F Pulse Rate 79 61 Respiratory Rate 16 15 Blood Pressure 127/70 116/67 Pulse Oximetry 96 100 Oxygen Delivery Method Room Air Room Air BMI result Body Mass Index 24.7 Medications Medications Current Medications Acetaminophen (Acetaminophen 325 Mg Tablet) 650 mg PO Q6H PRN PRN Reason: Pain, Mild (Pain Scale 1-3) Al Hydroxide/Mg Hydroxide (Magnesium Hydrox/Alum Hydrox 30 Ml Oral.Susp) 30 ml PO Q6H PRN PRN Reason: Heartburn/Nausea Aripiprazole (Aripiprazole 15 Mg Tablet) 15 mg PO DAILY [facility] Last Admin: 08/09/23 12:11 Dose: 15 mg Aspirin (Aspirin Enteric Coated 81 Mg Tablet.Dr) 81 mg PO DAILY [facility] Last Admin: 08/09/23 12:11 Dose: 81 mg Benztropine Mesylate (Benztropine Mesylate 1 Mg Tablet) 1 mg PO BID [facility] Last Admin: 08/09/23 12:11 Dose: 1 mg Hydroxyzine HCl (Hydroxyzine Hcl 25 Mg Tablet) 25 mg PO Q6H PRN PRN Reason: Anxiety Lorazepam (Lorazepam 2 Mg/Ml Vial) 2 mg IM BID PRN PRN Reason: REFUSAL OF PO LORAZEPAM Last Admin: 08/06/23 09:46 Dose: 2 mg Lorazepam (Lorazepam 1 Mg Tablet) 1 mg PO TID [facility] Last Admin: 08/09/23 12:12 Dose: 1 mg Magnesium Hydroxide (Milk Of Magnesia 30 Ml Oral.Susp) 30 ml PO DAILY PRN PRN Reason: Constipation Multivitamins/Vitamin C (Multivitamin Tablet) 1 tab PO DAILY [facility] Last Admin: 08/09/23 12:11 Dose: 1 tab Olanzapine (Olanzapine 10 Mg Vial) 5 mg IM Q8H PRN PRN Reason: Anxiety/agitation Last Admin: 08/06/23 09:46 Dose: 5 mg Olanzapine (Olanzapine 2.5 Mg Tablet) 2.5 mg PO BID [facility] Last Admin: 08/09/23 12:12 Dose: 2.5 mg Ondansetron HCl (Ondansetron Hcl 4 Mg/2 Ml Vial) 4 mg IVPUSH Q8H PRN PRN Reason: Nausea and Vomiting Senna (Sennosides 8.6 Mg Tablet) 17.2 mg PO BEDTIME PRN PRN Reason: Constipation Sevelamer Carbonate (Sevelamer Carbonate Tablet 800 Mg Tablet) 800 mg PO TID@0800,1200,1800 [facility] Last Admin: 08/09/23 12:12 Dose: Not Given Trazodone HCl (Trazodone Hcl 50 Mg Tablet) 50 mg PO BEDTIME MRX1 PRN PRN Reason: Insomnia Allergies Allergies Allergy/AdvReac Type Severity Reaction Status Date / Time No Known Allergies Allergy Verified 07/24/23 11:18 Assessment & Plan Assessment & Plan (1) ESRD needing dialysis: Status: Acute Code(s): N18.6 - End stage renal disease; Z99.2 - Dependence on renal dialysis (2) Anemia: Status: Acute Code(s): D64.9 - Anemia, unspecified (3) Bipolar disorder: Status: Acute Code(s): F31.9 - Bipolar disorder, unspecified Plan The patient is a 68-year-old male with end-stage renal disease, bipolar disorder and other medical comorbidities was transferred from Medicine after being medically cleared. The patient has an affirmed healthcare proxy, his wants him to have dialysis and all the psychiatric treatment and if the patient does not want to comply, his has authorized to use IM and other measures. At this moment the patient does not have capacity to take informed decisions. Plan 1. We will try to gather more collateral information. 2. Continue with psychotropics, Zyprexa as backup IM if the patient refused. 3. We will continue with dialysis as prescribed if the patient does not want to go to dialysis we will have to medicate him and transferred to the dialysis u nit. 4. Continue with all medical treatment. 5. Reassessment results Reason for continued inpatient stay Substantial Risk for: inability to function, rapid decompensation and med/psych decompensation Time Spent With Patient Time: Total time managing care of this patient today __20__ minutes.
[2023-08-09 20:53] VITALS: BP 136/81; PULSE 74; RESP 17; TEMP 36.1; O2SAT 99
--- NOTE | 2023-08-10 08:23 | HO.PSYCHPN ---
Subjective Subjective Date of Service: 08/10/23 Reason For Visit: Dayna Subjective Notes: Conditional Voluntary (By affirmed healthcare proxy) Healthcare Proxy: Yes Interim History: The nursing staff reported the patient had been more cooperative with care. Even though, sometimes he refuses his medications especially for renal treatment. On interview the patient reported that he wants to go back home I explained him that he needs 100% compliance and we will need to have a family meeting with his to discuss treatment options. Today, he took all his AM meds. Mental Status Exam Mental Status Exam Patient Appearance: Appropriate (On hospital gowns) Patient Orientation: Person and Situation Level of Consciousness: Awake and Appropriate Patient Behavior: Guarded and Passive Mood Description: Calm Affect Description: Blunted Patient Cognition Impaired: Yes Ability to Follow Directions: Good Speech Pattern: Clear Hallucinations: None Delusions: Grandiose and Ideas of Reference Thought Process: Distracted and Slowed Thinking Thought Content: positive for [place] and positive for Poverty of Content Judgement: Poor Diagnostics Vital Signs (24Hr): Vital Signs - 24 hr 08/09/23 12:10 08/09/23 20:53 Temperature 98.7 F 96.9 F Pulse Rate 61 74 Respiratory Rate 15 17 Blood Pressure 116/67 136/81 Pulse Oximetry 100 99 Oxygen Delivery Method Room Air Room Air BMI result Body Mass Index 24.7 Medications Medications Current Medications Acetaminophen (Acetaminophen 325 Mg Tablet) 650 mg PO Q6H PRN PRN Reason: Pain, Mild (Pain Scale 1-3) Al Hydroxide/Mg Hydroxide (Magnesium Hydrox/Alum Hydrox 30 Ml Oral.Susp) 30 ml PO Q6H PRN PRN Reason: Heartburn/Nausea Aripiprazole (Aripiprazole 15 Mg Tablet) 15 mg PO DAILY [facility] Last Admin: 08/09/23 12:11 Dose: 15 mg Aspirin (Aspirin Enteric Coated 81 Mg Tablet.) 81 mg PO DAILY [facility] Last Admin: 08/09/23 12:11 Dose: 81 mg Benztropine Mesylate (Benztropine Mesylate 1 Mg Tablet) 1 mg PO BID [facility] Last Admin: 08/09/23 20:19 Dose: Not Given Hydroxyzine HCl (Hydroxyzine Hcl 25 Mg Tablet) 25 mg PO Q6H PRN PRN Reason: Anxiety Lorazepam (Lorazepam 2 Mg/Ml Vial) 2 mg IM BID PRN PRN Reason: REFUSAL OF PO LORAZEPAM Last Admin: 08/06/23 09:46 Dose: 2 mg Lorazepam (Lorazepam 1 Mg Tablet) 1 mg PO TID [facility] Last Admin: 08/09/23 20:18 Dose: 1 mg Magnesium Hydroxide (Milk Of Magnesia 30 Ml Oral.Susp) 30 ml PO DAILY PRN PRN Reason: Constipation Multivitamins/Vitamin C (Multivitamin Tablet) 1 tab PO DAILY [facility] Last Admin: 08/09/23 12:11 Dose: 1 tab Olanzapine (Olanzapine 10 Mg Vial) 5 mg IM Q8H PRN PRN Reason: Anxiety/agitation Last Admin: 08/06/23 09:46 Dose: 5 mg Olanzapine (Olanzapine 2.5 Mg Tablet) 2.5 mg PO BID [facility] Last Admin: 08/09/23 20:18 Dose: 2.5 mg Ondansetron HCl (Ondansetron Hcl 4 Mg/2 Ml Vial) 4 mg IVPUSH Q8H PRN PRN Reason: Nausea and Vomiting Senna (Sennosides 8.6 Mg Tablet) 17.2 mg PO BEDTIME PRN PRN Reason: Constipation Sevelamer Carbonate (Sevelamer Carbonate Tablet 800 Mg Tablet) 800 mg PO TID@0800,1200,1800 [facility] Last Admin: 08/09/23 18:10 Dose: Not Given Trazodone HCl (Trazodone Hcl 50 Mg Tablet) 50 mg PO BEDTIME MRX1 PRN PRN Reason: Insomnia Allergies Allergies Allergy/AdvReac Type Severity Reaction Status Date / Time No Known Allergies Allergy Verified 07/24/23 11:18 Assessment & Plan Assessment & Plan (1) ESRD needing dialysis: Status: Acute Code(s): N18.6 - End stage renal disease; Z99.2 - Dependence on renal dialysis (2) Anemia: Status: Acute Code(s): D64.9 - Anemia, unspecified (3) Bipolar disorder: Status: Acute Code(s): F31.9 - Bipolar disorder, unspecified Plan The patient is a 68-year-old male with end-stage renal disease, bipolar disorder and other medical comorbidities was transferred from [facility] after being medically cleared. The patient has an affirmed healthcare proxy, his wants him to have dialysis and all the psychiatric treatment and if the patient does not want to comply, his has authorized to use IM and other measures. At this moment the patient does not have capacity to take informed decisions. Plan 1. We will try to gather more collateral information. 2. Continue with psychotropics, Zyprexa as backup IM if the patient refused. 3. We will continue with dialysis as prescribed if the patient does not want to go to dialysis we will have to medicate him and transferred to the dialysis unit. 4. Continue with all medical treatment. 5. Reassessment results Reason for continued inpatient stay Substantial Risk for: inability to function, rapid decompensation and med/psych decompensation Time Spent With Patient Time: Total time managing care of this patient today __20__ minutes.
[2023-08-10 09:05] VITALS: BP 156/81; PULSE 72; RESP 16; TEMP 36.3; O2SAT 100
[2023-08-10] MEDS: LORazepam 1 MG TABLET PO ×3 (09:08→20:24)
[2023-08-10] MEDS: Benztropine Mesylate 1 MG TABLET PO ×2 (09:08→20:24)
[2023-08-10] MEDS: Sevelamer Carbonate Tablet 800 MG TABLET PO ×2 (09:08→12:22)
[2023-08-10] MEDS: ARIPiprazole 15 MG TABLET PO (09:08)
[2023-08-10] MEDS: Aspirin Enteric Coated 81 MG TABLET.DR PO (09:09)
[2023-08-10] MEDS: Multivitamin TABLET 1 TAB PO (09:09)
[2023-08-10] MEDS: OLANZapine 2.5 MG TABLET PO ×2 (09:09→20:24)
[2023-08-10 14:49] LABS: Hematocrit 28.4 % (42.0-52.0); Mean Corpuscular HGB Conc 35.2 g/dl (31.0-36.0); Mean Corpuscular Hemoglobin 33.6 pg (27.0-33.0); Mean Corpuscular Volume 95.3 fL (80.0-98.0); Mean Platelet Volume 10.2 fL (9.4-12.4); Platelet Count 127 X10*3/uL (160-400); Red Blood Count 2.98 X10*6/uL (4.60-5.80); White Blood Count 5.6 X10*3/uL (4.8-10.8)
[2023-08-10 15:12] LABS: Anion Gap 18 (12-20); Calcium 9.9 mg/dL (8.4-10.2); Carbon Dioxide 21 mmol/L (22-29); Chloride 96 mmol/L (96-108); Phosphorus 5.2 mg/dL (2.7-4.5); Potassium 3.9 mmol/L (3.3-5.1); Sodium 131 mmol/L (135-145)
[2023-08-10 15:18] VITALS: BMI 25.7
[2023-08-10 20:40] VITALS: BP 192/93; PULSE 69; RESP 17; TEMP 36.6; O2SAT 100
[2023-08-11 08:00] VITALS: BP 143/96; PULSE 72; RESP 16; TEMP 36.5; O2SAT 99
[2023-08-11] MEDS: OLANZapine 2.5 MG TABLET PO (08:03)
[2023-08-11] MEDS: LORazepam 1 MG TABLET PO (08:03)
[2023-08-11] MEDS: ARIPiprazole 15 MG TABLET PO (08:04)
[2023-08-11] MEDS: Aspirin Enteric Coated 81 MG TABLET.DR PO (08:04)
[2023-08-11] MEDS: Benztropine Mesylate 1 MG TABLET PO ×2 (08:04→20:21)
[2023-08-11] MEDS: Multivitamin TABLET 1 TAB PO (08:04)
--- NOTE | 2023-08-11 10:51 | P.PNPSI_ITS ---
Subjective Subjective Date of Service: 08/11/23 Reason For Visit: Dayna Subjective Notes: Conditional Voluntary Interim History: Pt slept through the night. Pt is visible on the unit. His affect is much brighter. He is taking medications as prescribed. He is asking about sodium diet- he currently has hyponatremia so may benefit to be off sodium diet maybe temporarily, as recommendation in CKD low salt to decrease proteinuria and HTN, will consult with nephrology. Pt denies SI/HI. No behavioral concerns. Pt restarted on depakote 1000mg po qhs. Also, restarted navane 5mg po qhs as pt now taking oral medications, he was given instead olanzapine 2.5mg po BID or IM if refuse oral. Much less catatonia symptoms. still on ativan for now, he is not somnolent nor sedated but dose can be adjusted prior to d/c. Mental Status Exam Mental Status Exam Patient Appearance: Appropriate (On hospital gowns) Patient Orientation: Person and Situation Level of Consciousness: Awake and Appropriate Patient Behavior: Guarded and Passive Mood Description: Calm Affect Description: Blunted Patient Cognition Impaired: Yes Ability to Follow Directions: Good Speech Pattern: Clear Diagnostics Vital Signs (24Hr): Vital Signs - 24 hr 08/10/23 20:40 08/11/23 08:00 Temperature 97.8 F 97.7 F Pulse Rate 69 72 Respiratory Rate 17 16 Blood Pressure 192/93 H 143/96 H Pulse Oximetry 100 99 Oxygen Delivery Method Room Air Room Air BMI result Body Mass Index 25.7 Labs 08/10/23 14:43 08/10/23 14:43 Labs: Laboratory Results - last 48 hr 08/10/23 14:43 WBC 5.6 RBC 2.98 L Hgb 10.0 L Hct 28.4 L MCV 95.3 MCH 33.6 H MCHC 35.2 RDW 14.0 Plt Count 127 L D MPV 10.2 Absolute Nucleated RBC 0.000 Nucleated RBC % (auto) 0.0 Sodium 131 L Potassium 3.9 D Chloride 96 Carbon Dioxide 21 L Anion Gap 18 Calcium 9.9 Phosphorus 5.2 H Medications Medications Current Medications Acetaminophen (Acetaminophen 325 Mg Tablet) 650 mg PO Q6H PRN PRN Reason: Pain, Mild (Pain Scale 1-3) Al Hydroxide/Mg Hydroxide (Magnesium Hydrox/Alum Hydrox 30 Ml Oral.Susp) 30 ml PO Q6H PRN PRN Reason: Heartburn/Nausea Aripiprazole (Aripiprazole 20 Mg Tablet) 20 mg PO DAILY [facility] Aspirin (Aspirin Enteric Coated 81 Mg Tablet.Dr) 81 mg PO DAILY [facility] Last Admin: 08/11/23 08:04 Dose: 81 mg Benztropine Mesylate (Benztropine Mesylate 1 Mg Tablet) 1 mg PO BID [facility] Last Admin: 08/11/23 08:04 Dose: 1 mg Divalproex Sodium (Divalproex Sodium Er 500 Mg Tab.Er.24h) 1,000 mg PO BEDTIME [facility] Hydroxyzine HCl (Hydroxyzine Hcl 25 Mg Tablet) 25 mg PO Q6H PRN PRN Reason: Anxiety Lorazepam (Lorazepam 2 Mg/Ml Vial) 1 mg IM BID PRN PRN Reason: REFUSAL OF PO LORAZEPAM Magnesium Hydroxide (Milk Of Magnesia 30 Ml Oral.Susp) 30 ml PO DAILY PRN PRN Reason: Constipation Multivitamins/Vitamin C (Multivitamin Tablet) 1 tab PO DAILY [facility] Last Admin: 08/11/23 08:04 Dose: 1 tab Non-Formulary Medication (Patient Own Medication) 5 each PO BEDTIME [facility] Olanzapine (Olanzapine 10 Mg Vial) 5 mg IM BEDTIME PRN PRN Reason: Anxiety/agitation Ondansetron HCl (Ondansetron Hcl 4 Mg/2 Ml Vial) 4 mg IVPUSH Q8H PRN PRN Reason: Nausea and Vomiting Senna (Sennosides 8.6 Mg Tablet) 17.2 mg PO BEDTIME PRN PRN Reason: Constipation Sevelamer Carbonate (Sevelamer Carbonate Tablet 800 Mg Tablet) 800 mg PO TID@0800,1200,1800 [facility] Last Admin: 08/11/23 08:06 Dose: Not Given Trazodone HCl (Trazodone Hcl 50 Mg Tablet) 50 mg PO BEDTIME PRN PRN Reason: Insomnia Allergies Allergies Allergy/AdvReac Type Severity Reaction Status Date / Time No Known Allergies Allergy Verified 07/24/23 11:18 Assessment & Plan Assessment & Plan (1) Bipolar disorder: Status: Acute Code(s): F31.9 - Bipolar disorder, unspecified (2) ESRD needing dialysis: Status: Acute Code(s): N18.6 - End stage renal disease; Z99.2 - Dependence on renal dialysis (3) Anemia: Status: Acute Code(s): D64.9 - Anemia, unspecified Plan The patient is a 68-year-old male with end-stage renal disease, bipolar disorder and other medical comorbidities was transferred from [facility] after being medically cleared. The patient has an affirmed healthcare proxy, his wants him to have dialysis and all the psychiatric treatment and if the patient does not want to comply, his has authorized to use IM and other measures. At this moment the patient does not have capacity to take informed decisions. Plan 08/10- restarted depakote 1000mg po qhs. d/c scheduled olanzapine, restarted navane 5mg po qhs- lower dose than what he had in the community for now. Continue abilify 20mg po daily- may consider ADAME. continue ativan- no catatonic s/s now but pt not somnolent and states helps with mood. No behavioral concerns. Reason for continued inpatient stay Substantial Risk for: inability to function Time Spent With Patient Time: Total time managing care of this patient today ____ minutes.
--- NOTE | 2023-08-11 16:04 | P.PNNP_ITS ---
Subjective Subjective Date of Service: 08/11/23 Interval history: Seen and examined on HD Physical Exam 2 Vital Signs: Vital Signs: Last Vital Signs Temp 97.7 F 08/11/23 08:00 Pulse 72 08/11/23 08:00 Resp 16 08/11/23 08:00 BP 143/96 H 08/11/23 08:00 Pulse Ox 99 08/11/23 08:00 O2 Del Method Room Air 08/11/23 08:00 BMI result Body Mass Index 25.7 Objective Data Labs 08/10/23 14:43 08/10/23 14:43 Procedures Date of Service Date of Service: 08/11/23 Assessment & Plan Assessment and plan (1) ESRD needing dialysis: Status: Acute (2) Anemia: Status: Acute (3) Bipolar disorder: Status: Acute Plan ESRD: cont HD mwf Psych: meds being adjusted Nephrogenic Anemia MBD of ESRD PLAN: cont HD mwf; meds as noted Time Spent With Patient Time: Total time managing care of this patient today ____ minutes.
[2023-08-11 16:40] VITALS: BP 137/68; PULSE 68; RESP 16; TEMP 35.7; O2SAT 98
[2023-08-11] MEDS: Divalproex Sodium ER 500 MG TAB.ER.24H 1000 MG PO (20:21)
[2023-08-11 20:24] VITALS: BP 145/77; PULSE 69; TEMP 36.5; O2SAT 98
[2023-08-12 08:00] VITALS: BP 117/61; PULSE 81; RESP 20; TEMP 36.7; O2SAT 98
[2023-08-12] MEDS: Benztropine Mesylate 1 MG TABLET PO ×2 (08:12→20:13)
[2023-08-12] MEDS: ARIPiprazole 20 MG TABLET PO (08:12)
[2023-08-12] MEDS: Multivitamin TABLET 1 TAB PO (08:12)
[2023-08-12] MEDS: Aspirin Enteric Coated 81 MG TABLET.DR PO (08:12)
--- NOTE | 2023-08-12 14:38 | P.PNPSI_ITS ---
Subjective Subjective Date of Service: 08/12/23 Reason For Visit: Dayna psychosis Subjective Notes: Conditional Voluntary Interim History: Patient somewhat withdrawn still has limited insight he has been completing dialysis but still says I do not need it anymore. Medication Compliance: Yes Review of Systems Has been more cooperative with dialysis Mental Status Exam Mental Status Exam Patient Appearance: Appropriate (On hospital gowns) Patient Orientation: Person and Situation Level of Consciousness: Awake and Appropriate Patient Behavior: Guarded and Passive Mood Description: Calm and Blunted Affect Description: Blunted Patient Cognition Impaired: Yes Ability to Follow Directions: Good Speech Pattern: Clear Diagnostics Vital Signs (24Hr): Vital Signs - 24 hr 08/11/23 16:40 08/11/23 20:24 08/12/23 08:00 Temperature 96.3 F L 97.7 F 98.0 F Pulse Rate 68 69 81 Respiratory Rate 16 20 Blood Pressure 137/68 145/77 H 117/61 Pulse Oximetry 98 98 98 Oxygen Delivery Method Room Air Room Air Room Air BMI result Body Mass Index 25.7 Labs 08/10/23 14:43 08/10/23 14:43 Labs: Laboratory Results - last 48 hr 08/10/23 14:43 WBC 5.6 RBC 2.98 L Hgb 10.0 L Hct 28.4 L MCV 95.3 MCH 33.6 H MCHC 35.2 RDW 14.0 Plt Count 127 L D MPV 10.2 Absolute Nucleated RBC 0.000 Nucleated RBC % (auto) 0.0 Sodium 131 L Potassium 3.9 D Chloride 96 Carbon Dioxide 21 L Anion Gap 18 Calcium 9.9 Phosphorus 5.2 H Medications Medications Current Medications Acetaminophen (Acetaminophen 325 Mg Tablet) 650 mg PO Q6H PRN PRN Reason: Pain, Mild (Pain Scale 1-3) Al Hydroxide/Mg Hydroxide (Magnesium Hydrox/Alum Hydrox 30 Ml Oral.Susp) 30 ml PO Q6H PRN PRN Reason: Heartburn/Nausea Aripiprazole (Aripiprazole 20 Mg Tablet) 20 mg PO DAILY [facility] Last Admin: 08/12/23 08:12 Dose: 20 mg Aspirin (Aspirin Enteric Coated 81 Mg Tablet.) 81 mg PO DAILY [facility] Last Admin: 08/12/23 08:12 Dose: 81 mg Benztropine Mesylate (Benztropine Mesylate 1 Mg Tablet) 1 mg PO BID [facility] Last Admin: 08/12/23 08:12 Dose: 1 mg Divalproex Sodium (Divalproex Sodium Er 500 Mg Tab.Er.24h) 1,000 mg PO BEDTIME [facility] Last Admin: 08/11/23 20:21 Dose: 1,000 mg Hydroxyzine HCl (Hydroxyzine Hcl 25 Mg Tablet) 25 mg PO Q6H PRN PRN Reason: Anxiety Lorazepam (Lorazepam 2 Mg/Ml Vial) 1 mg IM BID PRN PRN Reason: REFUSAL OF PO LORAZEPAM Magnesium Hydroxide (Milk Of Magnesia 30 Ml Oral.Susp) 30 ml PO DAILY PRN PRN Reason: Constipation Multivitamins/Vitamin C (Multivitamin Tablet) 1 tab PO DAILY [facility] Last Admin: 08/12/23 08:12 Dose: 1 tab Patient Own Medication ( Thiothixene 5 Mg Capsules) 1 each PO BEDTIME [facility] Last Admin: 08/11/23 20:21 Dose: 1 each Olanzapine (Olanzapine 10 Mg Vial) 5 mg IM BEDTIME PRN PRN Reason: if refuses navene Ondansetron HCl (Ondansetron Hcl 4 Mg/2 Ml Vial) 4 mg IVPUSH Q8H PRN PRN Reason: Nausea and Vomiting Senna (Sennosides 8.6 Mg Tablet) 17.2 mg PO BEDTIME PRN PRN Reason: Constipation Sevelamer Carbonate (Sevelamer Carbonate Tablet 800 Mg Tablet) 800 mg PO TID@0800,1200,1800 [facility] Last Admin: 08/12/23 12:12 Dose: Not Given Trazodone HCl (Trazodone Hcl 50 Mg Tablet) 50 mg PO BEDTIME PRN PRN Reason: Insomnia Allergies Allergies Allergy/AdvReac Type Severity Reaction Status Date / Time No Known Allergies Allergy Verified 07/24/23 11:18 Assessment & Plan Assessment & Plan (1) Bipolar disorder: Status: Acute Code(s): F31.9 - Bipolar disorder, unspecified (2) ESRD needing dialysis: Status: Acute Code(s): N18.6 - End stage renal disease; Z99.2 - Dependence on renal dialysis (3) Anemia: Status: Acute Code(s): D64.9 - Anemia, unspecified Plan The patient is a 68-year-old male with end-stage renal disease, bipolar disorder and other medical comorbidities was transferred from [facility] after being medically cleared. The patient has an affirmed healthcare proxy, his wants him to have dialysis and all the psychiatric treatment and if the patient does not want to comply, his has authorized to use IM and other measures. At this moment the patient does not have capacity to take informed decisions. Plan 08/10- restarted depakote 1000mg po qhs. d/c scheduled olanzapine, restarted navane 5mg po qhs- lower dose than what he had in the community for now. Continue abilify 20mg po daily- may consider ADAME. continue ativan- no catatonic s/s now but pt not somnolent and states helps with mood. No behavioral concerns. Reason for continued inpatient stay Substantial Risk for: inability to function, rapid decompensation and med/psych decompensation Time Spent With Patient Time: Total time managing care of this patient today ____ minutes.
[2023-08-12 20:00] VITALS: BP 134/71; PULSE 72; RESP 16; TEMP 36.1; O2SAT 100
[2023-08-12] MEDS: Divalproex Sodium ER 500 MG TAB.ER.24H 1000 MG PO (20:07)
[2023-08-13 08:00] VITALS: BP 136/67; PULSE 72; RESP 18; TEMP 36.8; O2SAT 98
[2023-08-13] MEDS: Aspirin Enteric Coated 81 MG TABLET.DR PO (08:33)
[2023-08-13] MEDS: ARIPiprazole 20 MG TABLET PO (08:33)
[2023-08-13] MEDS: Benztropine Mesylate 1 MG TABLET PO (08:33)
[2023-08-13] MEDS: Multivitamin TABLET 1 TAB PO (08:33)
--- NOTE | 2023-08-13 10:51 | HO.PSYCHPN ---
Subjective Subjective Date of Service: 08/13/23 Reason For Visit: Dayna psychosis Subjective Notes: Conditional Voluntary Interim History: Patient had pollack range of affect taking most of his medications except the set of Levemir which she states gives him constipation. Discussed potential uses patient asked that his acute care nurse be contacted to see if there were alternatives does cause significant GI disturbance otherwise taking medication seems less labile more organized in thought. Medication Compliance: Yes Review of Systems Has been more cooperative with dialysis Mental Status Exam Mental Status Exam Patient Appearance: Appropriate (On hospital gowns) Patient Orientation: Person and Situation Level of Consciousness: Awake and Appropriate Patient Behavior: Guarded and Passive Mood Description: Calm and Blunted Affect Description: Blunted Patient Cognition Impaired: Yes Ability to Follow Directions: Good Speech Pattern: Clear Diagnostics Vital Signs (24Hr): Vital Signs - 24 hr 08/12/23 20:00 08/13/23 08:00 Temperature 96.9 F 98.2 F Pulse Rate 72 72 Respiratory Rate 16 18 Blood Pressure 134/71 136/67 Pulse Oximetry 100 98 Oxygen Delivery Method Room Air Room Air BMI result Body Mass Index 25.7 Labs 08/10/23 14:43 08/10/23 14:43 Medications Medications Current Medications Acetaminophen (Acetaminophen 325 Mg Tablet) 650 mg PO Q6H PRN PRN Reason: Pain, Mild (Pain Scale 1-3) Al Hydroxide/Mg Hydroxide (Magnesium Hydrox/Alum Hydrox 30 Ml Oral.Susp) 30 ml PO Q6H PRN PRN Reason: Heartburn/Nausea Aripiprazole (Aripiprazole 20 Mg Tablet) 20 mg PO DAILY [facility] Last Admin: 08/13/23 08:33 Dose: 20 mg Aspirin (Aspirin Enteric Coated 81 Mg Tablet.) 81 mg PO DAILY [facility] Last Admin: 08/13/23 08:33 Dose: 81 mg Benztropine Mesylate (Benztropine Mesylate 1 Mg Tablet) 1 mg PO BID [facility] Last Admin: 08/13/23 08:33 Dose: 1 mg Divalproex Sodium (Divalproex Sodium Er 500 Mg Tab.Er.24h) 1,000 mg PO BEDTIME [facility] Last Admin: 08/12/23 20:07 Dose: 1,000 mg Hydroxyzine HCl (Hydroxyzine Hcl 25 Mg Tablet) 25 mg PO Q6H PRN PRN Reason: Anxiety Lorazepam (Lorazepam 2 Mg/Ml Vial) 1 mg IM BID PRN PRN Reason: REFUSAL OF PO LORAZEPAM Magnesium Hydroxide (Milk Of Magnesia 30 Ml Oral.Susp) 30 ml PO DAILY PRN PRN Reason: Constipation Multivitamins/Vitamin C (Multivitamin Tablet) 1 tab PO DAILY [facility] Last Admin: 08/13/23 08:33 Dose: 1 tab Patient Own Medication ( Thiothixene 5 Mg Capsules) 3 each PO DAILY [facility] Last Admin: 08/13/23 08:33 Dose: 3 each Olanzapine (Olanzapine 10 Mg Vial) 5 mg IM BEDTIME PRN PRN Reason: if refuses navene Ondansetron HCl (Ondansetron Hcl 4 Mg/2 Ml Vial) 4 mg IVPUSH Q8H PRN PRN Reason: Nausea and Vomiting Senna (Sennosides 8.6 Mg Tablet) 17.2 mg PO BEDTIME PRN PRN Reason: Constipation Sevelamer Carbonate (Sevelamer Carbonate Tablet 800 Mg Tablet) 800 mg PO TID@0800,1200,1800 [facility] Last Admin: 08/13/23 08:33 Dose: Not Given Trazodone HCl (Trazodone Hcl 50 Mg Tablet) 50 mg PO BEDTIME PRN PRN Reason: Insomnia Allergies Allergies Allergy/AdvReac Type Severity Reaction Status Date / Time No Known Allergies Allergy Verified 07/24/23 11:18 Assessment & Plan Assessment & Plan (1) Bipolar disorder: Status: Acute Code(s): F31.9 - Bipolar disorder, unspecified (2) ESRD needing dialysis: Status: Acute Code(s): N18.6 - End stage renal disease; Z99.2 - Dependence on renal dialysis (3) Anemia: Status: Acute Code(s): D64.9 - Anemia, unspecified Plan The patient is a 68-year-old male with end-stage renal disease, bipolar disorder and other medical comorbidities was transferred from [facility] after being medically cleared. The patient has an affirmed healthcare proxy, his wants him to have dialysis and all the psychiatric treatment and if the patient does not want to comply, his has authorized to use IM and other measures. At this moment the patient does not have capacity to take informed decisions. Plan 08/10- restarted depakote 1000mg po qhs. d/c scheduled olanzapine, restarted navane 5mg po qhs- lower dose than what he had in the community for now. Continue abilify 20mg po daily- may consider ADAME. continue ativan- no catatonic s/s now but pt not somnolent and states helps with mood. No behavioral concerns. 08/13/2023 Discuss nephrology refusal of sevlemer Encourage continue taking Abilify in addition to Navane and to dialysis Reason for continued inpatient stay Substantial Risk for: inability to function and rapid decompensation Time Spent With Patient Time: Total time managing care of this patient today ____ minutes.
[2023-08-13 19:52] VITALS: BP 166/74; PULSE 75; RESP 18; TEMP 36.3; O2SAT 98
[2023-08-13] MEDS: Divalproex Sodium ER 500 MG TAB.ER.24H 1000 MG PO (20:34)
[2023-08-14 08:00] VITALS: BP 160/74; PULSE 72; RESP 18; TEMP 36.6; O2SAT 98
[2023-08-14] MEDS: Multivitamin TABLET 1 TAB PO (08:37)
[2023-08-14] MEDS: ARIPiprazole 20 MG TABLET PO (08:37)
[2023-08-14] MEDS: Aspirin Enteric Coated 81 MG TABLET.DR PO (08:37)
--- NOTE | 2023-08-14 15:06 | P.PNPSI_ITS ---
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 On interview the patient reported that he feels dizzy with his indications so we are going to consult the industrial ecology technician regarding. He came back from dialysis we discussed options and he agreed to take Cogentin as p.r.n. only. Mental Status Exam Mental Status Exam Patient Appearance: Well Grooomed Patient Orientation: Person and Situation Level of Consciousness: Awake and Appropriate Patient Behavior: Guarded and Passive Mood Description: Withdrawn Affect Description: Constricted Patient Cognition Impaired: Yes Ability to Follow Directions: Good Speech Pattern: Clear Hallucinations: None Delusions: Not Present Thought Process: Distracted and Evasive Thought Content: positive for [place] and positive for Poverty of Content Judgement: Fair Diagnostics Vital Signs (24Hr): Vital Signs - 24 hr 08/13/23 19:52 08/14/23 08:00 Temperature 97.4 F 97.8 F Pulse Rate 75 72 Respiratory Rate 18 18 Blood Pressure 166/74 H 160/74 H Pulse Oximetry 98 98 Oxygen Delivery Method Room Air Room Air BMI result Body Mass Index 25.7 Labs 08/10/23 14:43 08/10/23 14:43 Medications Medications Current Medications Acetaminophen (Acetaminophen 325 Mg Tablet) 650 mg PO Q6H PRN PRN Reason: Pain, Mild (Pain Scale 1-3) Al Hydroxide/Mg Hydroxide (Magnesium Hydrox/Alum Hydrox 30 Ml Oral.Susp) 30 ml PO Q6H PRN PRN Reason: Heartburn/Nausea Aripiprazole (Aripiprazole 20 Mg Tablet) 20 mg PO DAILY [facility] Last Admin: 08/14/23 08:37 Dose: 20 mg Aspirin (Aspirin Enteric Coated 81 Mg Tablet.) 81 mg PO DAILY [facility] Last Admin: 08/14/23 08:37 Dose: 81 mg Benztropine Mesylate (Benztropine Mesylate 1 Mg Tablet) 1 mg PO BID [facility] Last Admin: 08/14/23 08:48 Dose: Not Given Divalproex Sodium (Divalproex Sodium Er 500 Mg Tab.Er.24h) 1,000 mg PO BEDTIME [facility] Last Admin: 08/13/23 20:34 Dose: 1,000 mg Hydroxyzine HCl (Hydroxyzine Hcl 25 Mg Tablet) 25 mg PO Q6H PRN PRN Reason: Anxiety Lorazepam (Lorazepam 2 Mg/Ml Vial) 1 mg IM BID PRN PRN Reason: REFUSAL OF PO LORAZEPAM Magnesium Hydroxide (Milk Of Magnesia 30 Ml Oral.Susp) 30 ml PO DAILY PRN PRN Reason: Constipation Multivitamins/Vitamin C (Multivitamin Tablet) 1 tab PO DAILY [facility] Last Admin: 08/14/23 08:37 Dose: 1 tab Patient Own Medication ( Thiothixene 5 Mg Capsules) 3 each PO DAILY [facility] Last Admin: 08/14/23 08:46 Dose: 3 each Olanzapine (Olanzapine 10 Mg Vial) 5 mg IM BEDTIME PRN PRN Reason: if refuses navene Ondansetron HCl (Ondansetron Hcl 4 Mg/2 Ml Vial) 4 mg IVPUSH Q8H PRN PRN Reason: Nausea and Vomiting Senna (Sennosides 8.6 Mg Tablet) 17.2 mg PO BEDTIME PRN PRN Reason: Constipation Sevelamer Carbonate (Sevelamer Carbonate Tablet 800 Mg Tablet) 800 mg PO TID@0800,1200,1800 [facility] Last Admin: 08/14/23 14:37 Dose: Not Given Trazodone HCl (Trazodone Hcl 50 Mg Tablet) 50 mg PO BEDTIME PRN PRN Reason: Insomnia Allergies Allergies Allergy/AdvReac Type Severity Reaction Status Date / Time No Known Allergies Allergy Verified 07/24/23 11:18 Assessment & Plan Assessment & Plan (1) Bipolar disorder: Status: Acute Code(s): F31.9 - Bipolar disorder, unspecified (2) ESRD needing dialysis: Status: Acute Code(s): N18.6 - End stage renal disease; Z99.2 - Dependence on renal dialysis (3) Anemia: Status: Acute Code(s): D64.9 - Anemia, unspecified Plan The patient is a 68-year-old male with end-stage renal disease, bipolar disorder and other medical comorbidities was transferred from Medicine after being medically cleared. The patient has an affirmed healthcare proxy, his wants him to have dialysis and all the psychiatric treatment and if the patient does not want to comply, his has authorized to use IM and other measures. At this moment the patient does not have capacity to take informed decisions. Plan 08/10- restarted depakote 1000mg po qhs. d/c scheduled olanzapine, restarted navane 5mg po qhs- lower dose than what he had in the community for now. Continue abilify 20mg po daily- may consider ADAME. continue ativan- no catatonic s/s now but pt not somnolent and states helps with mood. No behavioral concerns. 08/13/2023 Discuss nephrology refusal of sevlemer Encourage continue taking Abilify in addition to Navane and to dialysis We are changing Cogentin as p.r.n. Reason for continued inpatient stay Substantial Risk for: inability to function, rapid decompensation and med/psych decompensation Time Spent With Patient Time: Total time managing care of this patient today __20__ minutes.
--- NOTE | 2023-08-14 15:25 | PC.NURSE ---
Pt back from dialysis at 13:20PM. Alert and oriented at baseline. VS as follow, BP 120/65, P 76, R 18, T 97.8, O2sat 99% on RA. No bleeding at the vascular access. Dressing intact. Denies pain. Consumed 75% of meal after arriving back to the unit. Will continue to monitor.
[2023-08-14 20:00] VITALS: BP 160/72; PULSE 74; RESP 18; O2SAT 99
[2023-08-14] MEDS: Divalproex Sodium ER 500 MG TAB.ER.24H 1000 MG PO (20:08)
[2023-08-15] MEDS: ARIPiprazole 20 MG TABLET PO (08:17)
[2023-08-15] MEDS: Multivitamin TABLET 1 TAB PO (08:17)
[2023-08-15] MEDS: Aspirin Enteric Coated 81 MG TABLET.DR PO (08:17)
[2023-08-15 08:21] VITALS: BP 133/74; PULSE 82; RESP 17; TEMP 36.5; O2SAT 97
--- NOTE | 2023-08-15 12:44 | HO.PSYCHPN ---
Subjective Subjective Date of Service: 08/15/23 Reason For Visit: Dayna psychosis Subjective Notes: Conditional Voluntary Interim History: The nursing staff reported that he has refused nephrologic medications and Cogentin. Yesterday we decided to change to PRN cogentin. On interview, he reported that he feels fine and he is denying any new symptoms. Over the weekend Depakote and Navane was restarted. Mental Status Exam Mental Status Exam Patient Appearance: Appropriate Patient Orientation: Person and Situation Level of Consciousness: Awake and Appropriate Patient Behavior: Guarded and Passive Mood Description: Withdrawn Affect Description: Constricted Ability to Follow Directions: Good Speech Pattern: Clear Hallucinations: None Delusions: Not Present Thought Process: Distracted and Slowed Thinking Thought Content: positive for [place], positive for [place] and positive for Poverty of Content Judgement: Poor Diagnostics Vital Signs (24Hr): Vital Signs - 24 hr 08/14/23 20:00 08/15/23 08:21 Temperature 97.7 F Pulse Rate 74 82 Respiratory Rate 18 17 Blood Pressure 160/72 H 133/74 Pulse Oximetry 99 97 Oxygen Delivery Method Room Air Room Air BMI result Body Mass Index 25.7 Labs 08/10/23 14:43 08/10/23 14:43 Medications Medications Current Medications Acetaminophen (Acetaminophen 325 Mg Tablet) 650 mg PO Q6H PRN PRN Reason: Pain, Mild (Pain Scale 1-3) Al Hydroxide/Mg Hydroxide (Magnesium Hydrox/Alum Hydrox 30 Ml Oral.Susp) 30 ml PO Q6H PRN PRN Reason: Heartburn/Nausea Aripiprazole (Aripiprazole 20 Mg Tablet) 20 mg PO DAILY [facility] Last Admin: 08/15/23 08:17 Dose: 20 mg Aspirin (Aspirin Enteric Coated 81 Mg Tablet.Dr) 81 mg PO DAILY [facility] Last Admin: 08/15/23 08:17 Dose: 81 mg Benztropine Mesylate (Benztropine Mesylate 1 Mg Tablet) 1 mg PO BID PRN PRN Reason: EPS Divalproex Sodium (Divalproex Sodium Er 500 Mg Tab.Er.24h) 1,000 mg PO BEDTIME [facility] Last Admin: 08/14/23 20:08 Dose: 1,000 mg Hydroxyzine HCl (Hydroxyzine Hcl 25 Mg Tablet) 25 mg PO Q6H PRN PRN Reason: Anxiety Lorazepam (Lorazepam 2 Mg/Ml Vial) 1 mg IM BID PRN PRN Reason: REFUSAL OF PO LORAZEPAM Magnesium Hydroxide (Milk Of Magnesia 30 Ml Oral.Susp) 30 ml PO DAILY PRN PRN Reason: Constipation Multivitamins/Vitamin C (Multivitamin Tablet) 1 tab PO DAILY [facility] Last Admin: 08/15/23 08:17 Dose: 1 tab Patient Own Medication ( Thiothixene 5 Mg Capsules) 3 each PO DAILY [facility] Last Admin: 08/15/23 08:17 Dose: 3 each Olanzapine (Olanzapine 10 Mg Vial) 5 mg IM BEDTIME PRN PRN Reason: if refuses navene Ondansetron HCl (Ondansetron Hcl 4 Mg/2 Ml Vial) 4 mg IVPUSH Q8H PRN PRN Reason: Nausea and Vomiting Senna (Sennosides 8.6 Mg Tablet) 17.2 mg PO BEDTIME PRN PRN Reason: Constipation Sevelamer Carbonate (Sevelamer Carbonate Tablet 800 Mg Tablet) 800 mg PO TID@0800,1200,1800 [facility] Last Admin: 08/15/23 12:03 Dose: Not Given Trazodone HCl (Trazodone Hcl 50 Mg Tablet) 50 mg PO BEDTIME PRN PRN Reason: Insomnia Allergies Allergies Allergy/AdvReac Type Severity Reaction Status Date / Time No Known Allergies Allergy Verified 07/24/23 11:18 Assessment & Plan Assessment & Plan (1) Bipolar disorder: Status: Acute Code(s): F31.9 - Bipolar disorder, unspecified (2) ESRD needing dialysis: Status: Acute Code(s): N18.6 - End stage renal disease; Z99.2 - Dependence on renal dialysis (3) Anemia: Status: Acute Code(s): D64.9 - Anemia, unspecified Plan The patient is a 68-year-old male with end-stage renal disease, bipolar disorder and other medical comorbidities was transferred from Medicine after being medically cleared. The patient has an affirmed healthcare proxy, his wants him to have dialysis and all the psychiatric treatment and if the patient does not want to comply, his has authorized to use IM and other measures. At this moment the patient does not have capacity to take informed decisions. Plan 08/10- restarted depakote 1000mg po qhs. d/c scheduled olanzapine, restarted navane 5mg po qhs- lower dose than what he had in the community for now. Continue abilify 20mg po daily- may consider ADAME. continue ativan- no catatonic s/s now but pt not somnolent and states helps with mood. No behavioral concerns. 08/13/2023 Discuss nephrology refusal of sevlemer Encourage continue taking Abilify in addition to Navane and to dialysis We are changing Cogentin as p.r.n. Reason for continued inpatient stay Substantial Risk for: inability to function, rapid decompensation and med/psych decompensation Time Spent With Patient Time: Total time managing care of this patient today __20__ minutes.
[2023-08-15 20:00] VITALS: BP 165/76; PULSE 72; RESP 18; TEMP 36.6; O2SAT 97
[2023-08-15] MEDS: Divalproex Sodium ER 500 MG TAB.ER.24H 1000 MG PO (20:22)
[2023-08-16 11:21] VITALS: BP 119/64; PULSE 67; RESP 18; TEMP 36.1; O2SAT 99
[2023-08-16] MEDS: Aspirin Enteric Coated 81 MG TABLET.DR PO (11:24)
[2023-08-16] MEDS: Multivitamin TABLET 1 TAB PO (11:24)
[2023-08-16] MEDS: ARIPiprazole 20 MG TABLET PO (11:24)
[2023-08-16] MEDS: Sevelamer Carbonate Tablet 800 MG TABLET PO ×2 (11:24→17:32)
--- NOTE | 2023-08-16 13:31 | P.PNPSI_ITS ---
Subjective Subjective Date of Service: 08/16/23 Reason For Visit: Dayna psychosis Subjective Notes: Conditional Voluntary (By affirmed healthcare proxy) Healthcare Proxy: Yes Interim History: The patient went to dialysis he has been refusing medication for nephrology. He is on Abilify 20, Depakote and Navane. On interview the patient denies new symptoms. Mental Status Exam Mental Status Exam Patient Appearance: Appropriate Patient Orientation: Person and Situation Level of Consciousness: Awake Patient Behavior: Guarded and Passive Mood Description: Withdrawn Affect Description: Constricted Patient Cognition Impaired: Yes Ability to Follow Directions: Good Speech Pattern: Clear Hallucinations: None Delusions: Not Present Thought Process: Distracted and Slowed Thinking Thought Content: positive for [place] and positive for Poverty of Content Judgement: Fair Diagnostics Vital Signs (24Hr): Vital Signs - 24 hr 08/15/23 20:00 08/16/23 11:21 Temperature 97.8 F 97 F Pulse Rate 72 67 Respiratory Rate 18 18 Blood Pressure 165/76 H 119/64 Pulse Oximetry 97 99 Oxygen Delivery Method Room Air Room Air BMI result Body Mass Index 25.7 Labs 08/10/23 14:43 08/10/23 14:43 Medications Medications Current Medications Acetaminophen (Acetaminophen 325 Mg Tablet) 650 mg PO Q6H PRN PRN Reason: Pain, Mild (Pain Scale 1-3) Al Hydroxide/Mg Hydroxide (Magnesium Hydrox/Alum Hydrox 30 Ml Oral.Susp) 30 ml PO Q6H PRN PRN Reason: Heartburn/Nausea Aripiprazole (Aripiprazole 20 Mg Tablet) 20 mg PO DAILY [facility] Last Admin: 08/16/23 11:24 Dose: 20 mg Aspirin (Aspirin Enteric Coated 81 Mg Tablet.) 81 mg PO DAILY [facility] Last Admin: 08/16/23 11:24 Dose: 81 mg Benztropine Mesylate (Benztropine Mesylate 1 Mg Tablet) 1 mg PO BID PRN PRN Reason: EPS Divalproex Sodium (Divalproex Sodium Er 500 Mg Tab.Er.24h) 1,000 mg PO BEDTIME [facility] Last Admin: 08/15/23 20:22 Dose: 1,000 mg Hydroxyzine HCl (Hydroxyzine Hcl 25 Mg Tablet) 25 mg PO Q6H PRN PRN Reason: Anxiety Lorazepam (Lorazepam 2 Mg/Ml Vial) 1 mg IM BID PRN PRN Reason: REFUSAL OF PO LORAZEPAM Magnesium Hydroxide (Milk Of Magnesia 30 Ml Oral.Susp) 30 ml PO DAILY PRN PRN Reason: Constipation Multivitamins/Vitamin C (Multivitamin Tablet) 1 tab PO DAILY [facility] Last Admin: 08/16/23 11:24 Dose: 1 tab Patient Own Medication ( Thiothixene 5 Mg Capsules) 3 each PO DAILY [facility] Last Admin: 08/16/23 11:24 Dose: 3 each Olanzapine (Olanzapine 10 Mg Vial) 5 mg IM BEDTIME PRN PRN Reason: if refuses navene Ondansetron HCl (Ondansetron Hcl 4 Mg/2 Ml Vial) 4 mg IVPUSH Q8H PRN PRN Reason: Nausea and Vomiting Senna (Sennosides 8.6 Mg Tablet) 17.2 mg PO BEDTIME PRN PRN Reason: Constipation Sevelamer Carbonate (Sevelamer Carbonate Tablet 800 Mg Tablet) 800 mg PO TID@0800,1200,1800 [facility] Last Admin: 08/16/23 11:48 Dose: Not Given Trazodone HCl (Trazodone Hcl 50 Mg Tablet) 50 mg PO BEDTIME PRN PRN Reason: Insomnia Allergies Allergies Allergy/AdvReac Type Severity Reaction Status Date / Time No Known Allergies Allergy Verified 07/24/23 11:18 Assessment & Plan Assessment & Plan (1) Bipolar disorder: Status: Acute Code(s): F31.9 - Bipolar disorder, unspecified (2) ESRD needing dialysis: Status: Acute Code(s): N18.6 - End stage renal disease; Z99.2 - Dependence on renal dialysis (3) Anemia: Status: Acute Code(s): D64.9 - Anemia, unspecified Plan The patient is a 68-year-old male with end-stage renal disease, bipolar disorder and other medical comorbidities was transferred from [facility] after being medically cleared. The patient has an affirmed healthcare proxy, his wants him to have dialysis and all the psychiatric treatment and if the patient does not want to comply, his has authorized to use IM and other measures. At this moment the patient does not have capacity to take informed decisions. Plan 08/10- restarted depakote 1000mg po qhs. d/c scheduled olanzapine, restarted navane 5mg po qhs- lower dose than what he had in the community for now. Continue abilify 20mg po daily- may consider ADAME. continue ativan- no catatonic s/s now but pt not somnolent and states helps with mood. No behavioral concerns. 08/13/2023 Discuss nephrology refusal of sevlemer Encourage continue taking Abilify in addition to Navane and to dialysis We are changing Cogentin as p.r.n. Reason for continued inpatient stay Substantial Risk for: inability to function, rapid decompensation and med/psych decompensation Time Spent With Patient Time: Total time managing care of this patient today __20__ minutes.
--- NOTE | 2023-08-16 14:24 | P.PNNP_ITS ---
Subjective Subjective Date of Service: 08/16/23 Interval history: The patient went to dialysis he has been refusing medication for nephrology. He is on Abilify 20, Depakote and Navane. On interview the patient denies new symptoms. 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
[2023-08-16 18:01] LABS: Hematocrit 26.4 % (42.0-52.0)
[2023-08-16 20:00] VITALS: BP 164/74; PULSE 65; RESP 18; TEMP 36; O2SAT 98
[2023-08-16] MEDS: Divalproex Sodium ER 500 MG TAB.ER.24H 1000 MG PO (20:51)
[2023-08-16] MEDS: Benztropine Mesylate 1 MG TABLET PO (20:57)
--- NOTE | 2023-08-16 21:11 | PC.NURSE ---
Patient's lab post dialysis this am: Hgb 9.0 Hct 26.4 . Pefused Procrit this evening despite multiple attempts. Education provided, patient verbalized understanding but wants to talk to mender knit goods first . On provider Fara Sanchez notified and aware.
[2023-08-17 07:00] VITALS: BMI 25.8
[2023-08-17 08:38] VITALS: BP 141/66; PULSE 74; RESP 18; TEMP 36.4; O2SAT 98
[2023-08-17] MEDS: Multivitamin TABLET 1 TAB PO (09:09)
[2023-08-17] MEDS: Sevelamer Carbonate Tablet 800 MG TABLET PO ×3 (09:09→16:52)
[2023-08-17] MEDS: ARIPiprazole 20 MG TABLET PO (09:09)
[2023-08-17] MEDS: Aspirin Enteric Coated 81 MG TABLET.DR PO (09:09)
[2023-08-17] MEDS: Benztropine Mesylate 1 MG TABLET PO (11:35)
--- NOTE | 2023-08-17 13:19 | HO.PSYCHPN ---
Subjective Subjective Date of Service: 08/17/23 Reason For Visit: Dayna psychosis Subjective Notes: Conditional Voluntary (By affirmed healthcare proxy) Healthcare Proxy: Yes Interim History: The nursing staff reported that the patient denies anxiety depression, he had been eating well no new behaviors. He slept well. Yesterday he had dialysis. On interview the patient looks slightly confused but easily redirectable, no evidence of suicidal ideation at this point. Mental Status Exam Mental Status Exam Patient Appearance: Appropriate Patient Orientation: Person and Situation Level of Consciousness: Awake and Appropriate Patient Behavior: Guarded and Passive Mood Description: Withdrawn Affect Description: Constricted Patient Cognition Impaired: Yes Ability to Follow Directions: Good Speech Pattern: Clear Hallucinations: None Delusions: Not Present Thought Process: Distracted and Slowed Thinking Thought Content: positive for [place] and positive for Poverty of Content Judgement: Fair Diagnostics Vital Signs (24Hr): Vital Signs - 24 hr 08/16/23 20:00 08/17/23 08:38 Temperature 96.8 F 97.5 F Pulse Rate 65 74 Respiratory Rate 18 18 Blood Pressure 164/74 H 141/66 H Pulse Oximetry 98 98 Oxygen Delivery Method Room Air Room Air BMI result Body Mass Index 25.8 Labs 08/16/23 17:54 08/10/23 14:43 Labs: Laboratory Results - last 48 hr 08/16/23 17:54 Hgb 9.0 L Hct 26.4 L Medications Medications Current Medications Acetaminophen (Acetaminophen 325 Mg Tablet) 650 mg PO Q6H PRN PRN Reason: Pain, Mild (Pain Scale 1-3) Al Hydroxide/Mg Hydroxide (Magnesium Hydrox/Alum Hydrox 30 Ml Oral.Susp) 30 ml PO Q6H PRN PRN Reason: Heartburn/Nausea Aripiprazole (Aripiprazole 20 Mg Tablet) 20 mg PO DAILY [facility] Last Admin: 08/17/23 09:09 Dose: 20 mg Aspirin (Aspirin Enteric Coated 81 Mg Tablet.Dr) 81 mg PO DAILY [facility] Last Admin: 08/17/23 09:09 Dose: 81 mg Benztropine Mesylate (Benztropine Mesylate 1 Mg Tablet) 1 mg PO BID PRN PRN Reason: EPS Last Admin: 08/17/23 11:35 Dose: 1 mg Divalproex Sodium (Divalproex Sodium Er 500 Mg Tab.Er.24h) 1,000 mg PO BEDTIME [facility] Last Admin: 08/16/23 20:51 Dose: 1,000 mg Epoetin Matthew-epbx (Epoetin Matthew-Epbx 10,000 Unit/Ml Vial) 10,000 unit SUBCUT DIALYSIS X2 MOWEFR [facility] Hydroxyzine HCl (Hydroxyzine Hcl 25 Mg Tablet) 25 mg PO Q6H PRN PRN Reason: Anxiety Lorazepam (Lorazepam 2 Mg/Ml Vial) 1 mg IM BID PRN PRN Reason: REFUSAL OF PO LORAZEPAM Magnesium Hydroxide (Milk Of Magnesia 30 Ml Oral.Susp) 30 ml PO DAILY PRN PRN Reason: Constipation Multivitamins/Vitamin C (Multivitamin Tablet) 1 tab PO DAILY [facility] Last Admin: 08/17/23 09:09 Dose: 1 tab Patient Own Medication ( Thiothixene 5 Mg Capsules) 3 each PO DAILY [facility] Last Admin: 08/17/23 09:09 Dose: 3 each Olanzapine (Olanzapine 10 Mg Vial) 5 mg IM BEDTIME PRN PRN Reason: if refuses navene Ondansetron HCl (Ondansetron Hcl 4 Mg/2 Ml Vial) 4 mg IVPUSH Q8H PRN PRN Reason: Nausea and Vomiting Senna (Sennosides 8.6 Mg Tablet) 17.2 mg PO BEDTIME PRN PRN Reason: Constipation Sevelamer Carbonate (Sevelamer Carbonate Tablet 800 Mg Tablet) 800 mg PO TID@0800,1200,1800 [facility] Last Admin: 08/17/23 11:35 Dose: 800 mg Trazodone HCl (Trazodone Hcl 50 Mg Tablet) 50 mg PO BEDTIME PRN PRN Reason: Insomnia Allergies Allergies Allergy/AdvReac Type Severity Reaction Status Date / Time No Known Allergies Allergy Verified 07/24/23 11:18 Assessment & Plan Assessment & Plan (1) ESRD needing dialysis: Status: Acute Code(s): N18.6 - End stage renal disease; Z99.2 - Dependence on renal dialysis Plan ESRD: cont HD mwf Psych: meds being adjusted 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
[2023-08-17 20:00] VITALS: BP 124/62; PULSE 78; RESP 16; TEMP 36.6; O2SAT 98
[2023-08-17] MEDS: Divalproex Sodium ER 500 MG TAB.ER.24H 1000 MG PO (20:52)
[2023-08-18 08:11] LABS: Anion Gap 17 (12-20); Blood Urea Nitrogen 23 mg/dL (9-16); Carbon Dioxide 21 mmol/L (22-29); Chloride 95 mmol/L (96-108); Creatinine Clr Calc Pharmacy 15.4; Estimated Glomerular Filt Rate 12; Glucose Random 129 mg/dL (60-115); Iron 80 mcg/dL (45-160); Percent Iron Saturation 41 % (15-50); Potassium 3.4 mmol/L (3.3-5.1); Sodium 130 mmol/L (135-145); Total Iron Binding Capacity 195 mcg/dL (228-428); Unsaturated Iron Binding 115 ug/dL
--- NOTE | 2023-08-18 10:05 | P.PNNP_ITS ---
Subjective Subjective Date of Service: 08/16/23 Interval history: Seen during HD and I contact his Sujata to update her as well Pamela medjuan [place] Physical Exam 2 Vital Signs: Vital Signs: Last Vital Signs Temp 97.9 F 08/17/23 20:00 Pulse 78 08/17/23 20:00 Resp 16 08/17/23 20:00 BP 124/62 08/17/23 20:00 Pulse Ox 98 08/17/23 20:00 O2 Del Method Room Air 08/17/23 20:00 BMI result Body Mass Index 25.8 Objective Data Labs 08/16/23 17:54 08/18/23 07:22 Labs: Laboratory Results - last 24 hr 08/18/23 07:22 Sodium 130 L Potassium 3.4 Chloride 95 L Carbon Dioxide 21 L Anion Gap 17 BUN 23 H Creatinine 4.89 H* Estim Creat Clear Calc 15.4 Estimated GFR 12 Random Glucose 129 H Calcium 9.0 D Iron 80 TIBC 195 L % Saturation 41 Unsat Iron Binding 115 Procedures Date of Service Date of Service: 08/18/23 Assessment & Plan Assessment and plan (1) ESRD (end stage renal disease): Status: Acute Assessment and Plan: ESRD: mwf Psych: meds nbeing adjusted Anemia:goasl to mantain Hb 9-11 and adjsut procrit as needed MBD of CKD: on binders WIll cont to follow with team; HD mwf Time Spent With Patient Time: Total time managing care of this patient today ____ minutes.
[2023-08-18] MEDS: Aspirin Enteric Coated 81 MG TABLET.DR PO (10:28)
[2023-08-18] MEDS: ARIPiprazole 20 MG TABLET PO (10:28)
[2023-08-18] MEDS: Multivitamin TABLET 1 TAB PO (10:28)
[2023-08-18] MEDS: Sevelamer Carbonate Tablet 800 MG TABLET PO ×3 (10:28→18:02)
[2023-08-18 10:35] VITALS: BP 117/64; PULSE 83; RESP 18; TEMP 36.7; O2SAT 98
--- NOTE | 2023-08-18 13:46 | P.PNPSI_ITS ---
Subjective Subjective Date of Service: 08/18/23 Reason For Visit: Dayna psychosis Subjective Notes: Conditional Voluntary Interim History: The nursing staff reported the patient had been with flat affect eating well awake last night. The patient attended to dialysis without any problems. On interview the patient denies new symptoms he states that he feels much better. Mental Status Exam Mental Status Exam Patient Appearance: Appropriate Patient Orientation: Person and Situation Level of Consciousness: Awake and Appropriate Patient Behavior: Guarded and Passive Mood Description: Withdrawn Affect Description: Constricted Patient Cognition Impaired: Yes Ability to Follow Directions: Good Speech Pattern: Clear Hallucinations: None Delusions: Not Present Thought Process: Distracted and Slowed Thinking Thought Content: positive for [place] and positive for Poverty of Content Judgement: Poor Diagnostics Vital Signs (24Hr): Vital Signs - 24 hr 08/17/23 20:00 Temperature 97.9 F Pulse Rate 78 Respiratory Rate 16 Blood Pressure 124/62 Pulse Oximetry 98 Oxygen Delivery Method Room Air BMI result Body Mass Index 25.8 Labs 08/16/23 17:54 08/18/23 07:22 Labs: Laboratory Results - last 48 hr 08/16/23 08/18/23 17:54 07:22 Hgb 9.0 L Hct 26.4 L Sodium 130 L Potassium 3.4 Chloride 95 L Carbon Dioxide 21 L Anion Gap 17 BUN 23 H Creatinine 4.89 H* Estim Creat Clear Calc 15.4 Estimated GFR 12 Random Glucose 129 H Calcium 9.0 D Iron 80 TIBC 195 L % Saturation 41 Unsat Iron Binding 115 Medications Medications Current Medications Acetaminophen (Acetaminophen 325 Mg Tablet) 650 mg PO Q6H PRN PRN Reason: Pain, Mild (Pain Scale 1-3) Al Hydroxide/Mg Hydroxide (Magnesium Hydrox/Alum Hydrox 30 Ml Oral.Susp) 30 ml PO Q6H PRN PRN Reason: Heartburn/Nausea Aripiprazole (Aripiprazole 20 Mg Tablet) 20 mg PO DAILY [facility] Last Admin: 08/18/23 10:28 Dose: 20 mg Aspirin (Aspirin Enteric Coated 81 Mg Tablet.) 81 mg PO DAILY [facility] Last Admin: 08/18/23 10:28 Dose: 81 mg Benztropine Mesylate (Benztropine Mesylate 1 Mg Tablet) 1 mg PO BID PRN PRN Reason: EPS Last Admin: 08/17/23 11:35 Dose: 1 mg Divalproex Sodium (Divalproex Sodium Er 500 Mg Tab.Er.24h) 1,000 mg PO BEDTIME [facility] Last Admin: 08/17/23 20:52 Dose: 1,000 mg Epoetin Matthew-epbx (Epoetin Matthew-Epbx 10,000 Unit/Ml Vial) 10,000 unit SUBCUT DIALYSIS X2 MOWEFR [facility] Hydroxyzine HCl (Hydroxyzine Hcl 25 Mg Tablet) 25 mg PO Q6H PRN PRN Reason: Anxiety Lorazepam (Lorazepam 2 Mg/Ml Vial) 1 mg IM BID PRN PRN Reason: REFUSAL OF PO LORAZEPAM Magnesium Hydroxide (Milk Of Magnesia 30 Ml Oral.Susp) 30 ml PO DAILY PRN PRN Reason: Constipation Multivitamins/Vitamin C (Multivitamin Tablet) 1 tab PO DAILY [facility] Last Admin: 08/18/23 10:28 Dose: 1 tab Patient Own Medication ( Thiothixene 5 Mg Capsules) 3 each PO DAILY [facility] Last Admin: 08/18/23 10:27 Dose: 3 each Olanzapine (Olanzapine 10 Mg Vial) 5 mg IM BEDTIME PRN PRN Reason: if refuses navene Ondansetron HCl (Ondansetron Hcl 4 Mg/2 Ml Vial) 4 mg IVPUSH Q8H PRN PRN Reason: Nausea and Vomiting Senna (Sennosides 8.6 Mg Tablet) 17.2 mg PO BEDTIME PRN PRN Reason: Constipation Sevelamer Carbonate (Sevelamer Carbonate Tablet 800 Mg Tablet) 800 mg PO TID@0800,1200,1800 [facility] Last Admin: 08/18/23 13:23 Dose: 800 mg Trazodone HCl (Trazodone Hcl 50 Mg Tablet) 50 mg PO BEDTIME PRN PRN Reason: Insomnia Allergies Allergies Allergy/AdvReac Type Severity Reaction Status Date / Time No Known Allergies Allergy Verified 07/24/23 11:18 Assessment & Plan Assessment & Plan (1) ESRD (end stage renal disease): Status: Acute Code(s): N18.6 - End stage renal disease Assessment and Plan: ESRD: mwf Psych: meds nbeing adjusted Anemia:goasl to mantain Hb 9-11 and adjsut procrit as needed 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 Continue with Abilify 20 mg p.o. daily. 2. Continue with Depakote and a vein as prescribed. 3. We have discussed the possibility of using Abilify Maintena or any other long-acting injectable to ensure compliance. We will explore more early next week. 4. Continue with other medical procedures such as dialysis and others. Reason for continued inpatient stay Substantial Risk for: inability to function, rapid decompensation and med/psych decompensation Time Spent With Patient Time: Total time managing care of this patient today __20__ minutes.
[2023-08-18 20:00] VITALS: BP 138/66; PULSE 64; RESP 16; TEMP 36.3; O2SAT 98
[2023-08-18] MEDS: Divalproex Sodium ER 500 MG TAB.ER.24H 1000 MG PO (20:11)
[2023-08-19 08:20] VITALS: BP 125/66; PULSE 76; RESP 18; TEMP 36.6; O2SAT 96
[2023-08-19] MEDS: Multivitamin TABLET 1 TAB PO (08:36)
[2023-08-19] MEDS: Sevelamer Carbonate Tablet 800 MG TABLET PO ×3 (08:36→18:11)
[2023-08-19] MEDS: ARIPiprazole 20 MG TABLET PO (08:36)
[2023-08-19] MEDS: Aspirin Enteric Coated 81 MG TABLET.DR PO (08:36)
[2023-08-19] MEDS: Benztropine Mesylate 1 MG TABLET PO (08:48)
[2023-08-19 20:00] VITALS: BP 165/67; PULSE 70; RESP 18; TEMP 36.2; O2SAT 98
[2023-08-19] MEDS: Divalproex Sodium ER 500 MG TAB.ER.24H 1000 MG PO (20:29)
[2023-08-20 08:25] VITALS: BP 168/75; PULSE 66; RESP 16; TEMP 36.7; O2SAT 97
[2023-08-20] MEDS: Sevelamer Carbonate Tablet 800 MG TABLET PO ×3 (08:27→17:24)
[2023-08-20] MEDS: ARIPiprazole 20 MG TABLET PO (08:27)
[2023-08-20] MEDS: Multivitamin TABLET 1 TAB PO (08:27)
[2023-08-20] MEDS: Aspirin Enteric Coated 81 MG TABLET.DR PO (08:27)
--- NOTE | 2023-08-20 16:08 | HO.PSYCHPN ---
Subjective Subjective Date of Service: 08/19/23 Reason For Visit: Dayna psychosis Interim History: late entry note for patient seen on 08/18; discussed with team Patient pleasant on approach, says that he is good. Denies psych symptoms, lists his medications to make sure health underwriter knows them. Staff reports he remains brighter and doing well Mental Status Exam Mental Status Exam Patient Appearance: Appropriate Patient Orientation: Person and Situation Level of Consciousness: Awake and Appropriate Patient Behavior: Appropriate, Cooperative and Good Eye Contact Mood Description: Calm Affect Description: Constricted Patient Cognition Impaired: Yes Ability to Follow Directions: Good Speech Pattern: Clear Hallucinations: None Delusions: Not Present Thought Process: Goal Oriented and Slowed Thinking Thought Content: positive for [place] and positive for Poverty of Content (No SI/no HI) Judgement and Insight: Impaired but improving Diagnostics Vital Signs (24Hr): Vital Signs - 24 hr 08/19/23 20:00 08/20/23 08:25 Temperature 97.2 F 98.1 F Pulse Rate 70 66 Respiratory Rate 18 16 Blood Pressure 165/67 H 168/75 H Pulse Oximetry 98 97 Oxygen Delivery Method Room Air Room Air BMI result Body Mass Index 25.8 Labs 08/16/23 17:54 08/18/23 07:22 Medications Medications Current Medications Acetaminophen (Acetaminophen 325 Mg Tablet) 650 mg PO Q6H PRN PRN Reason: Pain, Mild (Pain Scale 1-3) Al Hydroxide/Mg Hydroxide (Magnesium Hydrox/Alum Hydrox 30 Ml Oral.Susp) 30 ml PO Q6H PRN PRN Reason: Heartburn/Nausea Aripiprazole (Aripiprazole 20 Mg Tablet) 20 mg PO DAILY [facility] Last Admin: 08/20/23 08:27 Dose: 20 mg Aspirin (Aspirin Enteric Coated 81 Mg Tablet.Dr) 81 mg PO DAILY [facility] Last Admin: 08/20/23 08:27 Dose: 81 mg Benztropine Mesylate (Benztropine Mesylate 1 Mg Tablet) 1 mg PO BID PRN PRN Reason: EPS Last Admin: 08/19/23 08:48 Dose: 1 mg Divalproex Sodium (Divalproex Sodium Er 500 Mg Tab.Er.24h) 1,000 mg PO BEDTIME [facility] Last Admin: 08/19/23 20:29 Dose: 1,000 mg Epoetin Matthew-epbx (Epoetin Matthew-Epbx 10,000 Unit/Ml Vial) 10,000 unit SUBCUT DIALYSIS X2 MOWEFR [facility] Last Admin: 08/18/23 16:47 Dose: Not Given Hydroxyzine HCl (Hydroxyzine Hcl 25 Mg Tablet) 25 mg PO Q6H PRN PRN Reason: Anxiety Lorazepam (Lorazepam 2 Mg/Ml Vial) 1 mg IM BID PRN PRN Reason: REFUSAL OF PO LORAZEPAM Magnesium Hydroxide (Milk Of Magnesia 30 Ml Oral.Susp) 30 ml PO DAILY PRN PRN Reason: Constipation Multivitamins/Vitamin C (Multivitamin Tablet) 1 tab PO DAILY [facility] Last Admin: 08/20/23 08:27 Dose: 1 tab Patient Own Medication ( Thiothixene 5 Mg Capsules) 3 each PO DAILY [facility] Last Admin: 08/20/23 08:27 Dose: 3 each Olanzapine (Olanzapine 10 Mg Vial) 5 mg IM BEDTIME PRN PRN Reason: if refuses navene Ondansetron HCl (Ondansetron Hcl 4 Mg/2 Ml Vial) 4 mg IVPUSH Q8H PRN PRN Reason: Nausea and Vomiting Senna (Sennosides 8.6 Mg Tablet) 17.2 mg PO BEDTIME PRN PRN Reason: Constipation Sevelamer Carbonate (Sevelamer Carbonate Tablet 800 Mg Tablet) 800 mg PO TID@0800,1200,1800 [facility] Last Admin: 08/20/23 12:31 Dose: 800 mg Trazodone HCl (Trazodone Hcl 50 Mg Tablet) 50 mg PO BEDTIME PRN PRN Reason: Insomnia Allergies Allergies Allergy/AdvReac Type Severity Reaction Status Date / Time No Known Allergies Allergy Verified 07/24/23 11:18 Assessment & Plan Assessment & Plan (1) Schizoaffective disorder, bipolar type: Status: Acute Code(s): F25.0 - Schizoaffective disorder, bipolar type (2) ESRD (end stage renal disease): Status: Acute Code(s): N18.6 - End stage renal disease Assessment and Plan: ESRD: mwf Psych: meds nbeing adjusted Anemia:goasl to mantain Hb 9-11 and adjsut procrit as needed 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 Continue with Abilify 20 mg p.o. daily. 2. Continue with Depakote and a vein as prescribed. 3. We have discussed the possibility of using Abilify Maintena or any other long-acting injectable to ensure compliance. We will explore more early next week. 4. Continue with other medical procedures such as dialysis and others. Patient educated on: diagnosis and medication risk/benefits Informed Consent: understands and further education needed Reason for continued inpatient stay Substantial Risk for: med/psych decompensation Time Spent With Patient Time: Total time managing care of this patient today ____ minutes.
--- NOTE | 2023-08-20 16:09 | HO.PSYCHPN ---
Subjective Subjective Date of Service: 08/20/23 Reason For Visit: Dayna psychosis Interim History: Met with patient; discussed with team Patient remains pleasant on approach, says I feel good... Mental Status Exam Mental Status Exam Patient Appearance: Appropriate Patient Orientation: Person and Situation Level of Consciousness: Awake and Appropriate Patient Behavior: Appropriate, Cooperative and Good Eye Contact Mood Description: Calm ( good ) Affect Description: Constricted Patient Cognition Impaired: Yes Ability to Follow Directions: Good Speech Pattern: Clear Hallucinations: None Delusions: Not Present Thought Process: Goal Oriented and Slowed Thinking Thought Content: positive for [place] and positive for Poverty of Content (No SI/no HI) Judgement and Insight: Impaired but improving Diagnostics Vital Signs (24Hr): Vital Signs - 24 hr 08/19/23 20:00 08/20/23 08:25 Temperature 97.2 F 98.1 F Pulse Rate 70 66 Respiratory Rate 18 16 Blood Pressure 165/67 H 168/75 H Pulse Oximetry 98 97 Oxygen Delivery Method Room Air Room Air BMI result Body Mass Index 25.8 Labs 08/16/23 17:54 08/18/23 07:22 Medications Medications Current Medications Acetaminophen (Acetaminophen 325 Mg Tablet) 650 mg PO Q6H PRN PRN Reason: Pain, Mild (Pain Scale 1-3) Al Hydroxide/Mg Hydroxide (Magnesium Hydrox/Alum Hydrox 30 Ml Oral.Susp) 30 ml PO Q6H PRN PRN Reason: Heartburn/Nausea Aripiprazole (Aripiprazole 20 Mg Tablet) 20 mg PO DAILY [facility] Last Admin: 08/20/23 08:27 Dose: 20 mg Aspirin (Aspirin Enteric Coated 81 Mg Tablet.Dr) 81 mg PO DAILY [facility] Last Admin: 08/20/23 08:27 Dose: 81 mg Benztropine Mesylate (Benztropine Mesylate 1 Mg Tablet) 1 mg PO BID PRN PRN Reason: EPS Last Admin: 08/19/23 08:48 Dose: 1 mg Divalproex Sodium (Divalproex Sodium Er 500 Mg Tab.Er.24h) 1,000 mg PO BEDTIME [facility] Last Admin: 08/19/23 20:29 Dose: 1,000 mg Epoetin Matthew-epbx (Epoetin Matthew-Epbx 10,000 Unit/Ml Vial) 10,000 unit SUBCUT DIALYSIS X2 MOWEFR [facility] Last Admin: 08/18/23 16:47 Dose: Not Given Hydroxyzine HCl (Hydroxyzine Hcl 25 Mg Tablet) 25 mg PO Q6H PRN PRN Reason: Anxiety Lorazepam (Lorazepam 2 Mg/Ml Vial) 1 mg IM BID PRN PRN Reason: REFUSAL OF PO LORAZEPAM Magnesium Hydroxide (Milk Of Magnesia 30 Ml Oral.Susp) 30 ml PO DAILY PRN PRN Reason: Constipation Multivitamins/Vitamin C (Multivitamin Tablet) 1 tab PO DAILY [facility] Last Admin: 08/20/23 08:27 Dose: 1 tab Patient Own Medication ( Thiothixene 5 Mg Capsules) 3 each PO DAILY [facility] Last Admin: 08/20/23 08:27 Dose: 3 each Olanzapine (Olanzapine 10 Mg Vial) 5 mg IM BEDTIME PRN PRN Reason: if refuses navene Ondansetron HCl (Ondansetron Hcl 4 Mg/2 Ml Vial) 4 mg IVPUSH Q8H PRN PRN Reason: Nausea and Vomiting Senna (Sennosides 8.6 Mg Tablet) 17.2 mg PO BEDTIME PRN PRN Reason: Constipation Sevelamer Carbonate (Sevelamer Carbonate Tablet 800 Mg Tablet) 800 mg PO TID@0800,1200,1800 [facility] Last Admin: 08/20/23 12:31 Dose: 800 mg Trazodone HCl (Trazodone Hcl 50 Mg Tablet) 50 mg PO BEDTIME PRN PRN Reason: Insomnia Allergies Allergies Allergy/AdvReac Type Severity Reaction Status Date / Time No Known Allergies Allergy Verified 07/24/23 11:18 Assessment & Plan Assessment & Plan (1) ESRD (end stage renal disease): Status: Acute Code(s): N18.6 - End stage renal disease Assessment and Plan: ESRD: mwf Psych: meds nbeing adjusted Anemia:goasl to mantain Hb 9-11 and adjsut procrit as needed 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 Continue with Abilify 20 mg p.o. daily. 2. Continue with Depakote and a vein as prescribed. 3. We have discussed the possibility of using Abilify Maintena or any other long-acting injectable to ensure compliance. We will explore more early next week. 4. Continue with other medical procedures such as dialysis and others. Patient educated on: diagnosis Informed Consent: understands and further education needed Reason for continued inpatient stay Substantial Risk for: med/psych decompensation Time Spent With Patient Time: Total time managing care of this patient today ____ minutes.
[2023-08-20 20:00] VITALS: BP 186/94; PULSE 68; TEMP 36.3; O2SAT 99
[2023-08-20] MEDS: Divalproex Sodium ER 500 MG TAB.ER.24H 1000 MG PO (20:40)
[2023-08-20] MEDS: Benztropine Mesylate 1 MG TABLET PO (20:41)
[2023-08-21 08:20] VITALS: BP 174/84; PULSE 67; RESP 18; TEMP 36.2; O2SAT 99
--- NOTE | 2023-08-21 12:23 | P.PNPSI_ITS ---
Subjective Subjective Date of Service: 08/21/23 Reason For Visit: Dayna psychosis Subjective Notes: Conditional Voluntary (By affirmed healthcare proxy.) Healthcare Proxy: Yes Interim History: The nursing staff reported the patient had been fully compliant with treatment, he showed a brighter affect and he has good appetite. He slept 6 hours. Today he went to dialysis and he was compliant with treatment. On interview the patient denies new symptoms, we are going to have a meeting with his and discussed the possibility of Abilify Maintena. Mental Status Exam Mental Status Exam Patient Appearance: Appropriate Patient Orientation: Person and Situation Level of Consciousness: Awake and Appropriate Patient Behavior: Guarded and Passive Mood Description: Withdrawn Affect Description: Constricted Patient Cognition Impaired: Yes Ability to Follow Directions: Good Speech Pattern: Clear Hallucinations: None Delusions: Not Present Thought Process: Distracted and Slowed Thinking Thought Content: positive for [place] and positive for Poverty of Content Judgement: Fair Diagnostics Vital Signs (24Hr): Vital Signs - 24 hr 08/20/23 20:00 08/21/23 08:20 Temperature 97.3 F 97.2 F Pulse Rate 68 67 Respiratory Rate 18 Blood Pressure 186/94 H 174/84 H Pulse Oximetry 99 99 Oxygen Delivery Method Room Air Room Air BMI result Body Mass Index 25.8 Labs 08/16/23 17:54 08/18/23 07:22 Medications Medications Current Medications Acetaminophen (Acetaminophen 325 Mg Tablet) 650 mg PO Q6H PRN PRN Reason: Pain, Mild (Pain Scale 1-3) Al Hydroxide/Mg Hydroxide (Magnesium Hydrox/Alum Hydrox 30 Ml Oral.Susp) 30 ml PO Q6H PRN PRN Reason: Heartburn/Nausea Aripiprazole (Aripiprazole 20 Mg Tablet) 20 mg PO DAILY [facility] Last Admin: 08/20/23 08:27 Dose: 20 mg Aspirin (Aspirin Enteric Coated 81 Mg Tablet.Dr) 81 mg PO DAILY [facility] Last Admin: 08/20/23 08:27 Dose: 81 mg Benztropine Mesylate (Benztropine Mesylate 1 Mg Tablet) 1 mg PO BID PRN PRN Reason: EPS Last Admin: 08/20/23 20:41 Dose: 1 mg Divalproex Sodium (Divalproex Sodium Er 500 Mg Tab.Er.24h) 1,000 mg PO BEDTIME [facility] Last Admin: 08/20/23 20:40 Dose: 1,000 mg Epoetin Matthew-epbx (Epoetin Matthew-Epbx 10,000 Unit/Ml Vial) 10,000 unit SUBCUT DIALYSIS X2 MOWEFR [facility] Last Admin: 08/18/23 16:47 Dose: Not Given Hydroxyzine HCl (Hydroxyzine Hcl 25 Mg Tablet) 25 mg PO Q6H PRN PRN Reason: Anxiety Lorazepam (Lorazepam 2 Mg/Ml Vial) 1 mg IM BID PRN PRN Reason: REFUSAL OF PO LORAZEPAM Magnesium Hydroxide (Milk Of Magnesia 30 Ml Oral.Susp) 30 ml PO DAILY PRN PRN Reason: Constipation Multivitamins/Vitamin C (Multivitamin Tablet) 1 tab PO DAILY [facility] Last Admin: 08/20/23 08:27 Dose: 1 tab Patient Own Medication ( Thiothixene 5 Mg Capsules) 3 each PO DAILY [facility] Last Admin: 08/20/23 08:27 Dose: 3 each Olanzapine (Olanzapine 10 Mg Vial) 5 mg IM BEDTIME PRN PRN Reason: if refuses navene Ondansetron HCl (Ondansetron Hcl 4 Mg/2 Ml Vial) 4 mg IVPUSH Q8H PRN PRN Reason: Nausea and Vomiting Senna (Sennosides 8.6 Mg Tablet) 17.2 mg PO BEDTIME PRN PRN Reason: Constipation Sevelamer Carbonate (Sevelamer Carbonate Tablet 800 Mg Tablet) 800 mg PO TID@0800,1200,1800 [facility] Last Admin: 08/20/23 17:24 Dose: 800 mg Trazodone HCl (Trazodone Hcl 50 Mg Tablet) 50 mg PO BEDTIME PRN PRN Reason: Insomnia Allergies Allergies Allergy/AdvReac Type Severity Reaction Status Date / Time No Known Allergies Allergy Verified 07/24/23 11:18 Assessment & Plan Assessment & Plan (1) ESRD (end stage renal disease): Status: Acute Code(s): N18.6 - End stage renal disease Assessment and Plan: ESRD: mwf Psych: meds nbeing adjusted Anemia:goasl to mantain Hb 9-11 and adjsut procrit as needed 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 Continue with Abilify 20 mg p.o. daily. 2. Continue with Depakote and a vein as prescribed. 3. We have discussed the possibility of using Abilify Maintena or any other long-acting injectable to ensure compliance. We will explore more early next week. 4. Continue with other medical procedures such as dialysis and others. Reason for continued inpatient stay Substantial Risk for: inability to function, rapid decompensation and med/psych decompensation Time Spent With Patient Time: Total time managing care of this patient today _20___ minutes.
[2023-08-21] MEDS: Sevelamer Carbonate Tablet 800 MG TABLET PO ×2 (14:18→17:35)
[2023-08-21] MEDS: ARIPiprazole 20 MG TABLET PO (14:19)
[2023-08-21] MEDS: Multivitamin TABLET 1 TAB PO (14:19)
[2023-08-21] MEDS: Aspirin Enteric Coated 81 MG TABLET.DR PO (14:19)
[2023-08-21] MEDS: Benztropine Mesylate 1 MG TABLET PO (14:28)
--- NOTE | 2023-08-21 14:29 | PC.NURSE ---
Patient had hemo dialysis today and returned to the unit [id number]. Medications given and patient requested Congentin which was given at 1430 for tremors/shakiness, effect pending. Dressing left UA VF dry and intact.
--- NOTE | 2023-08-21 16:36 | PC.NURSE ---
Patient refused Procrit today.
[2023-08-21 20:00] VITALS: BP 177/84; PULSE 65; RESP 18; TEMP 36.4; O2SAT 100
[2023-08-21] MEDS: Divalproex Sodium ER 500 MG TAB.ER.24H 1000 MG PO (20:19)
[2023-08-22 09:18] VITALS: BP 141/67; PULSE 82; RESP 18; TEMP 36.5; O2SAT 98
[2023-08-22] MEDS: ARIPiprazole 20 MG TABLET PO (09:25)
[2023-08-22] MEDS: Sevelamer Carbonate Tablet 800 MG TABLET PO ×3 (09:25→17:08)
[2023-08-22] MEDS: Aspirin Enteric Coated 81 MG TABLET.DR PO (09:25)
[2023-08-22] MEDS: Multivitamin TABLET 1 TAB PO (09:25)
--- NOTE | 2023-08-22 12:44 | HO.PSYCHPN ---
Subjective Subjective Date of Service: 08/22/23 Reason For Visit: Dayna psychosis Subjective Notes: Conditional Voluntary Interim History: The nursing staff reported the patient had being relaxed pleasant, he refused his Procrit during dialysis he slept 6 hours. The social work supervisor reported that we are going to have a short meeting with his at 02:00 o'clock regarding discharge planning and the possibility of Abilify Maintena. The is reluctant to use that since it is logistically difficult to get injection in the community. On interview the patient denies new symptoms pleasant, cooperative. Mental Status Exam Mental Status Exam Patient Appearance: Appropriate Patient Orientation: Person and Situation Level of Consciousness: Awake and Appropriate Patient Behavior: Guarded and Passive Mood Description: Withdrawn Affect Description: Constricted Patient Cognition Impaired: Yes Ability to Follow Directions: Good Speech Pattern: Clear Hallucinations: None Delusions: Not Present Thought Process: Distracted and Slowed Thinking Thought Content: positive for [place] and positive for Poverty of Content Judgement: Fair Diagnostics Vital Signs (24Hr): Vital Signs - 24 hr 08/21/23 20:00 08/22/23 09:18 Temperature 97.5 F 97.7 F Pulse Rate 65 82 Respiratory Rate 18 18 Blood Pressure 177/84 H 141/67 H Pulse Oximetry 100 98 Oxygen Delivery Method Room Air Room Air BMI result Body Mass Index 25.8 Labs 08/16/23 17:54 08/18/23 07:22 Medications Medications Current Medications Acetaminophen (Acetaminophen 325 Mg Tablet) 650 mg PO Q6H PRN PRN Reason: Pain, Mild (Pain Scale 1-3) Al Hydroxide/Mg Hydroxide (Magnesium Hydrox/Alum Hydrox 30 Ml Oral.Susp) 30 ml PO Q6H PRN PRN Reason: Heartburn/Nausea Aripiprazole (Aripiprazole 20 Mg Tablet) 20 mg PO DAILY [facility] Last Admin: 08/22/23 09:25 Dose: 20 mg Aspirin (Aspirin Enteric Coated 81 Mg Tablet.Dr) 81 mg PO DAILY [facility] Last Admin: 08/22/23 09:25 Dose: 81 mg Benztropine Mesylate (Benztropine Mesylate 1 Mg Tablet) 1 mg PO BID PRN PRN Reason: EPS Last Admin: 08/21/23 14:28 Dose: 1 mg Divalproex Sodium (Divalproex Sodium Er 500 Mg Tab.Er.24h) 1,000 mg PO BEDTIME [facility] Last Admin: 08/21/23 20:19 Dose: 1,000 mg Epoetin Matthew-epbx (Epoetin Matthew-Epbx 10,000 Unit/Ml Vial) 10,000 unit SUBCUT DIALYSIS X2 MOWEFR [facility] Last Admin: 08/21/23 19:06 Dose: Not Given Hydroxyzine HCl (Hydroxyzine Hcl 25 Mg Tablet) 25 mg PO Q6H PRN PRN Reason: Anxiety Lorazepam (Lorazepam 2 Mg/Ml Vial) 1 mg IM BID PRN PRN Reason: REFUSAL OF PO LORAZEPAM Magnesium Hydroxide (Milk Of Magnesia 30 Ml Oral.Susp) 30 ml PO DAILY PRN PRN Reason: Constipation Multivitamins/Vitamin C (Multivitamin Tablet) 1 tab PO DAILY [facility] Last Admin: 08/22/23 09:25 Dose: 1 tab Patient Own Medication ( Thiothixene 5 Mg Capsules) 3 each PO DAILY [facility] Last Admin: 08/22/23 09:25 Dose: 3 each Olanzapine (Olanzapine 10 Mg Vial) 5 mg IM BEDTIME PRN PRN Reason: if refuses navene Ondansetron HCl (Ondansetron Hcl 4 Mg/2 Ml Vial) 4 mg IVPUSH Q8H PRN PRN Reason: Nausea and Vomiting Senna (Sennosides 8.6 Mg Tablet) 17.2 mg PO BEDTIME PRN PRN Reason: Constipation Sevelamer Carbonate (Sevelamer Carbonate Tablet 800 Mg Tablet) 800 mg PO TID@0800,1200,1800 [facility] Last Admin: 08/22/23 12:17 Dose: 800 mg Trazodone HCl (Trazodone Hcl 50 Mg Tablet) 50 mg PO BEDTIME PRN PRN Reason: Insomnia Allergies Allergies Allergy/AdvReac Type Severity Reaction Status Date / Time No Known Allergies Allergy Verified 07/24/23 11:18 Assessment & Plan Assessment & Plan (1) ESRD (end stage renal disease): Status: Acute Code(s): N18.6 - End stage renal disease Assessment and Plan: ESRD: mwf Psych: meds nbeing adjusted Anemia:goasl to mantain Hb 9-11 and adjsut procrit as needed 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 Continue with Abilify 20 mg p.o. daily. 2. Continue with Depakote and a vein as prescribed. 3. We have discussed the possibility of using Abilify Maintena or any other long-acting injectable to ensure compliance. We will explore more early next week. 4. Continue with other medical procedures such as dialysis and others. Reason for continued inpatient stay Substantial Risk for: inability to function, rapid decompensation and med/psych decompensation Time Spent With Patient Time: Total time managing care of this patient today __20__ minutes.
[2023-08-22 20:00] VITALS: BP 183/94; PULSE 68; TEMP 36.5; O2SAT 96
[2023-08-22] MEDS: Benztropine Mesylate 1 MG TABLET PO (20:08)
[2023-08-22] MEDS: Divalproex Sodium ER 500 MG TAB.ER.24H 1000 MG PO (20:08)
--- NOTE | 2023-08-23 10:26 | P.PNPSI_ITS ---
Subjective Subjective Date of Service: 08/23/23 Reason For Visit: Dayna psychosis Subjective Notes: Conditional Voluntary Interim History: The nursing staff reported the patient is doing well, he has been pleasant cooperative with good appetite and he slept well. On interview the patient denies new symptoms we are scheduling the discharge for next Monday. Yesterday we had a meeting with his and unfortunately he will not have Abilify Maintena. Mental Status Exam Mental Status Exam Patient Appearance: Appropriate Patient Orientation: Person and Situation Level of Consciousness: Awake Patient Behavior: Guarded and Passive Mood Description: Withdrawn Affect Description: Constricted Patient Cognition Impaired: Yes Ability to Follow Directions: Good Speech Pattern: Clear Hallucinations: None Delusions: Not Present Thought Process: Linear Thought Content: positive for [place] and positive for Poverty of Content Judgement: Fair Diagnostics Vital Signs (24Hr): Vital Signs - 24 hr 08/22/23 20:00 Temperature 97.7 F Pulse Rate 68 Blood Pressure 183/94 H Pulse Oximetry 96 Oxygen Delivery Method Room Air BMI result Body Mass Index 25.8 Labs 08/16/23 17:54 08/18/23 07:22 Medications Medications Current Medications Acetaminophen (Acetaminophen 325 Mg Tablet) 650 mg PO Q6H PRN PRN Reason: Pain, Mild (Pain Scale 1-3) Al Hydroxide/Mg Hydroxide (Magnesium Hydrox/Alum Hydrox 30 Ml Oral.Susp) 30 ml PO Q6H PRN PRN Reason: Heartburn/Nausea Aripiprazole (Aripiprazole 20 Mg Tablet) 20 mg PO DAILY [facility] Last Admin: 08/22/23 09:25 Dose: 20 mg Aspirin (Aspirin Enteric Coated 81 Mg Tablet.Dr) 81 mg PO DAILY [facility] Last Admin: 08/22/23 09:25 Dose: 81 mg Benztropine Mesylate (Benztropine Mesylate 1 Mg Tablet) 1 mg PO BID PRN PRN Reason: EPS Last Admin: 08/22/23 20:08 Dose: 1 mg Divalproex Sodium (Divalproex Sodium Er 500 Mg Tab.Er.24h) 1,000 mg PO BEDTIME [facility] Last Admin: 08/22/23 20:08 Dose: 1,000 mg Epoetin Matthew-epbx (Epoetin Matthew-Epbx 10,000 Unit/Ml Vial) 10,000 unit SUBCUT DIALYSIS X2 MOWEFR [facility] Last Admin: 05/20/24 19:06 Dose: Not Given Hydroxyzine HCl (Hydroxyzine Hcl 25 Mg Tablet) 25 mg PO Q6H PRN PRN Reason: Anxiety Lorazepam (Lorazepam 2 Mg/Ml Vial) 1 mg IM BID PRN PRN Reason: REFUSAL OF PO LORAZEPAM Magnesium Hydroxide (Milk Of Magnesia 30 Ml Oral.Susp) 30 ml PO DAILY PRN PRN Reason: Constipation Multivitamins/Vitamin C (Multivitamin Tablet) 1 tab PO DAILY [facility] Last Admin: 08/22/23 09:25 Dose: 1 tab Patient Own Medication ( Thiothixene 5 Mg Capsules) 3 each PO DAILY [facility] Last Admin: 08/22/23 09:25 Dose: 3 each Olanzapine (Olanzapine 10 Mg Vial) 5 mg IM BEDTIME PRN PRN Reason: if refuses navene Ondansetron HCl (Ondansetron Hcl 4 Mg/2 Ml Vial) 4 mg IVPUSH Q8H PRN PRN Reason: Nausea and Vomiting Senna (Sennosides 8.6 Mg Tablet) 17.2 mg PO BEDTIME PRN PRN Reason: Constipation Sevelamer Carbonate (Sevelamer Carbonate Tablet 800 Mg Tablet) 800 mg PO TID@0800,1200,1800 [facility] Last Admin: 08/22/23 17:08 Dose: 800 mg Trazodone HCl (Trazodone Hcl 50 Mg Tablet) 50 mg PO BEDTIME PRN PRN Reason: Insomnia Allergies Allergies Allergy/AdvReac Type Severity Reaction Status Date / Time No Known Allergies Allergy Verified 07/24/23 11:18 Assessment & Plan Assessment & Plan (1) ESRD (end stage renal disease): Status: Acute Code(s): N18.6 - End stage renal disease Assessment and Plan: ESRD: mwf Psych: meds nbeing adjusted Anemia:goasl to mantain Hb 9-11 and adjsut procrit as needed 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 Continue with Abilify 20 mg p.o. daily. 2. Continue with Depakote and a vein as prescribed. 3. We have discussed the possibility of using Abilify Maintena or any other long-acting injectable to ensure compliance. We will explore more early next week. 4. Continue with other medical procedures such as dialysis and others. Reason for continued inpatient stay Substantial Risk for: inability to function, rapid decompensation and med/psych decompensation Time Spent With Patient Time: Total time managing care of this patient today __20__ minutes.
[2023-08-23] MEDS: ARIPiprazole 20 MG TABLET PO (10:54)
[2023-08-23] MEDS: Sevelamer Carbonate Tablet 800 MG TABLET PO ×2 (10:54→18:13)
[2023-08-23] MEDS: Aspirin Enteric Coated 81 MG TABLET.DR PO (10:54)
[2023-08-23] MEDS: Multivitamin TABLET 1 TAB PO (10:54)
[2023-08-23 11:00] VITALS: BP 126/88; PULSE 70; RESP 18; TEMP 36.2; O2SAT 100
--- NOTE | 2023-08-23 11:08 | PC.NURSE ---
Patient back to the unit from dialysis around 11AM. Vascular access on left arm, dressing intact. No signs of bleeding. Pt denies pain/discomfort. VS: T 97.2, P 70, BP 126/88, O2sat 100% on RA. No SOB or respiratory distress noted. Pt had breakfast at the dialysis. Now resting in his room. Will continue to monitor.
[2023-08-23 20:00] VITALS: BP 149/71; PULSE 69; TEMP 35.5; O2SAT 97
[2023-08-23] MEDS: Divalproex Sodium ER 500 MG TAB.ER.24H 1000 MG PO (20:21)
[2023-08-24 07:00] VITALS: BMI 25.7
[2023-08-24 08:25] VITALS: BP 129/64; PULSE 78; RESP 18; TEMP 36.6; O2SAT 98
[2023-08-24] MEDS: Sevelamer Carbonate Tablet 800 MG TABLET PO ×3 (08:59→18:27)
[2023-08-24] MEDS: ARIPiprazole 20 MG TABLET PO (08:59)
[2023-08-24] MEDS: Aspirin Enteric Coated 81 MG TABLET.DR PO (08:59)
[2023-08-24] MEDS: Multivitamin TABLET 1 TAB PO (08:59)
[2023-08-24] MEDS: Benztropine Mesylate 1 MG TABLET PO (09:23)
--- NOTE | 2023-08-24 13:27 | HO.PSYCHPN ---
Subjective Subjective Date of Service: 08/24/23 Reason For Visit: Dayna psychosis Subjective Notes: Conditional Voluntary Interim History: The nursing staff reported the patient had been eating well slept 8 hours fully compliant with treatment he denies anxiety or depression. On interview the patient reports that he is excited to be discharged tomorrow. Mental Status Exam Mental Status Exam Patient Appearance: Appropriate Patient Orientation: Person and Situation Level of Consciousness: Awake and Appropriate Patient Behavior: Guarded and Cooperative Mood Description: Withdrawn Affect Description: Calm and Constricted Patient Cognition Impaired: Yes Ability to Follow Directions: Good Speech Pattern: Clear Hallucinations: None Delusions: Not Present Thought Process: Distracted and Slowed Thinking Thought Content: positive for [place] and positive for Circumstantial Judgement: Fair Diagnostics Vital Signs (24Hr): Vital Signs - 24 hr 08/23/23 20:00 08/24/23 08:25 Temperature 96 F L 98 F Pulse Rate 69 78 Respiratory Rate 18 Blood Pressure 149/71 H 129/64 Pulse Oximetry 97 98 Oxygen Delivery Method Room Air Room Air BMI result Body Mass Index 25.7 Labs 08/16/23 17:54 08/18/23 07:22 Medications Medications Current Medications Acetaminophen (Acetaminophen 325 Mg Tablet) 650 mg PO Q6H PRN PRN Reason: Pain, Mild (Pain Scale 1-3) Al Hydroxide/Mg Hydroxide (Magnesium Hydrox/Alum Hydrox 30 Ml Oral.Susp) 30 ml PO Q6H PRN PRN Reason: Heartburn/Nausea Aripiprazole (Aripiprazole 20 Mg Tablet) 20 mg PO DAILY [facility] Last Admin: 08/24/23 08:59 Dose: 20 mg Aspirin (Aspirin Enteric Coated 81 Mg Tablet.Dr) 81 mg PO DAILY [facility] Last Admin: 08/24/23 08:59 Dose: 81 mg Benztropine Mesylate (Benztropine Mesylate 1 Mg Tablet) 1 mg PO BID PRN PRN Reason: EPS Last Admin: 08/24/23 09:23 Dose: 1 mg Divalproex Sodium (Divalproex Sodium Er 500 Mg Tab.Er.24h) 1,000 mg PO BEDTIME [facility] Last Admin: 08/23/23 20:21 Dose: 1,000 mg Epoetin Matthew-epbx (Epoetin Matthew-Epbx 10,000 Unit/Ml Vial) 10,000 unit SUBCUT DIALYSIS X2 MOWEFR [facility] Last Admin: 08/23/23 18:10 Dose: Not Given Hydroxyzine HCl (Hydroxyzine Hcl 25 Mg Tablet) 25 mg PO Q6H PRN PRN Reason: Anxiety Lorazepam (Lorazepam 2 Mg/Ml Vial) 1 mg IM BID PRN PRN Reason: REFUSAL OF PO LORAZEPAM Magnesium Hydroxide (Milk Of Magnesia 30 Ml Oral.Susp) 30 ml PO DAILY PRN PRN Reason: Constipation Multivitamins/Vitamin C (Multivitamin Tablet) 1 tab PO DAILY [facility] Last Admin: 08/24/23 08:59 Dose: 1 tab Patient Own Medication ( Thiothixene 5 Mg Capsules) 3 each PO DAILY [facility] Last Admin: 08/24/23 08:59 Dose: 3 each Olanzapine (Olanzapine 10 Mg Vial) 5 mg IM BEDTIME PRN PRN Reason: if refuses navene Ondansetron HCl (Ondansetron Hcl 4 Mg/2 Ml Vial) 4 mg IVPUSH Q8H PRN PRN Reason: Nausea and Vomiting Senna (Sennosides 8.6 Mg Tablet) 17.2 mg PO BEDTIME PRN PRN Reason: Constipation Sevelamer Carbonate (Sevelamer Carbonate Tablet 800 Mg Tablet) 800 mg PO TID@0800,1200,1800 [facility] Last Admin: 08/24/23 08:59 Dose: 800 mg Trazodone HCl (Trazodone Hcl 50 Mg Tablet) 50 mg PO BEDTIME PRN PRN Reason: Insomnia Allergies Allergies Allergy/AdvReac Type Severity Reaction Status Date / Time No Known Allergies Allergy Verified 07/24/23 11:18 Assessment & Plan Assessment & Plan (1) ESRD (end stage renal disease): Status: Acute Code(s): N18.6 - End stage renal disease Assessment and Plan: ESRD: mwf Psych: meds nbeing adjusted Anemia:goasl to mantain Hb 9-11 and adjsut procrit as needed 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 Continue with Abilify 20 mg p.o. daily. 2. Continue with Depakote and a vein as prescribed. 3. We have discussed the possibility of using Abilify Maintena or any other long-acting injectable to ensure compliance. We will explore more early next week. 4. Continue with other medical procedures such as dialysis and others. Reason for continued inpatient stay Substantial Risk for: inability to function, rapid decompensation and med/psych decompensation Time Spent With Patient Time: Total time managing care of this patient today __20__ minutes.
[2023-08-24 20:00] VITALS: BP 139/83; PULSE 89; RESP 16; TEMP 36.2; O2SAT 99
[2023-08-24] MEDS: Divalproex Sodium ER 500 MG TAB.ER.24H 1000 MG PO (20:17)
[2023-08-25 08:00] VITALS: BP 135/69; PULSE 78; RESP 16; TEMP 36.8; O2SAT 100
--- NOTE | 2023-08-25 08:11 | P.DS_ITS ---
DS: Providers Provider Date of Service: 08/25/23 Date of admission: 08/02/23 15:51 Date of discharge: 08/25/23 Primary care physician: Unknown Physician Consults: 08/02/23 16:31 Consult to Nephrology Routine Consulting Provider: [facility] Reason for consultation: esrd dialysis 08/15/23 15:12 Consult to Nephrology Routine Consulting Provider: [facility] Reason for consultation: on dialysis, F/U Has provider been notified: No Attending physician on discharge: Hunter Fernandez DS: Diagnosis Discharge Diagnosis (1) ESRD (end stage renal disease): Status: Acute DS: Medications Discharge Medications Home Medications: Home Medications ?Medication ?Instructions ?Recorded ?Confirmed benztropine 1 mg tablet 2 mg PO BID 07/24/23 08/02/23 sevelamer carbonate 800 mg tablet 800 mg PO TID@0800,1200,1800 07/24/23 08/02/23 vitamin B complex and vitamin C 1 cap PO DAILY 07/24/23 08/02/23 no.20-folic acid 1 mg capsule (Renal Caps) thiothixene 5 mg capsule 15 mg PO DAILY 08/13/23 08/13/23 Previous Rx's ?Medication ?Instructions ?Recorded aspirin 81 mg tablet,delayed 81 mg PO DAILY 30 days #30 tabs 10/07/22 release divalproex 500 mg tablet,extended 1,000 mg (2 x 500 mg) PO BEDTIME 10/07/22 release 24 hr 30 days #60 tabs olanzapine 10 mg intramuscular 5 mg IM BID #1 ea 08/02/23 solution Mental Status Exam Mental Status Exam Patient Appearance: Appropriate Patient Orientation: Person and Situation Level of Consciousness: Awake and Appropriate Patient Behavior: Cooperative Mood Description: Calm Affect Description: Calm and Constricted Patient Cognition Impaired: Yes Ability to Follow Directions: Good Speech Pattern: Clear Hallucinations: None Delusions: Not Present Thought Process: Distracted and Linear Thought Content: positive for Circumstantial Judgement: Fair Data Data Completed and Pending Completed studies during hospitalization [Text1]: 08/18/23 07:22 Sodium 130 L Potassium 3.4 Chloride 95 L Carbon Dioxide 21 L Anion Gap 17 BUN 23 H Creatinine 4.89 H* Estim Creat Clear Calc 15.4 Estimated GFR 12 Random Glucose 129 H Calcium 9.0 D Iron 80 TIBC 195 L % Saturation 41 Unsat Iron Binding 115 DS: Summary Hospital Course Hospital Course: The patient is a 68-year-old male with a past history of bipolar disorder, end-stage renal disease on dialysis and other medical comorbidities who was brought to the emergency room of another hospital for lindy and p sychosis. Apparently the patient became noncompliant with medications and he was refusing dialysis. He was assessed by crisis and transferring to this facility for psychiatric stabilization. Please see the [facility] admission note for further details. He was initially admitted into Medicine and later on when he was more stable he was transferred to this facility for continuation of care. The patient is very well known by this team since he had been admitted several times with a similar presentation. The patient was manic, he stopped his medications and drove to [place] and his family had to bring him back to [place]. He had been refusing dialysis and his medical condition worsen it. The patient's is the healthcare proxy that was affirm in court in the last admission and she also tries to do all the treatments needed so he can be safe and stable. On admission, the patient refused to have dialysis but we reinforced the affirmed healthcare proxy. Also he started refusing antipsychotics and we put Zyprexa IM as a backup that he had for the 1st week. Eventually, the patient become more compliant and pleasant, he adamantly denied suicidal ideation and he start taking Abilify titrated up to 20 mg p.o. daily We had several family meetings with his and I offer the possibility of Abilify Maintena since there is a pattern of noncompliance. We also did research regarding the safety of Abilify Maintena high dialysis and so far no contraindications. At this moment his and the patient reluctant to do long-acting injectables for antipsychotics. The patient's mood and conditional improved slowly, he was pleasant cooperative and fully compliant with treatment. Since there were no safety concerns discharge planning was discussed Time spent discussing smoking cessation with patient: 3 to 10 minutes Status at Discharge Cognitive/behavioral status at discharge: Impaired at baseline mildly Functional status at discharge: independent ambulation Overall status at discharge: patient is back to baseline Time Spent with Patient Time attestation: Total time managing care of this patient today __30__ minutes. Time spent: Less than 30 minutes Discharge Plan Discharge Anticipated Discharge Date/Time: 08/25/23 11:00 Patient Disposition: Home, Self-Care Discharge Diagnosis: Bipolar disorder End-stage renal disease in dialysis Referrals: Psych Prescriber: Roya Jacobs ([facility]) [Other] - 09/25/23 4:30 pm (In person at the office ) Therapy Referral: [facility] [Other] - 1 Week (Marco is on the wait list, which is 4 to 6 weeks; Leanne will continue contact with their [facility] retread supervisor about getting him assigned to a therapist there sooner, expected in the next two weeks and will reach out via phone once more info is obtained. ) Therapy Referral: [facility] [Other] - 1 Week (They only have one therapist with in-person availability who takes Marco's insurance. There is a 10-12 week wait. Please check in with their direct mail coordinator, Mariia ([phone]), regarding his status on the wait list and getting him scheduled. I recommend following up once a week.) [facility]: Nina Sharma [Other] - 08/26/23 (The nurse should be contacting you by the end of the day Monday to schedule a time to come to the home on Monday to initiate services. [facility] will only be able to offer services for 3 to 4 weeks. If you haven't heard from anyone by 4:30pm, please call the above number to check- in. ) Medication Bridge Appt: Erika Woodward ([facility]) [Other] - 09/05/23 11:00 am (Take elevators D or E to the 5th floor, exit to the right and two doorways down on your right you will see a waiting area, enter there ) Discharge Medications: New aripiprazole [Abilify] 20 mg Tablet 20 mg PO DAILY 30 Days Qty: 30 0RF aspirin 81 mg Tablet,Delayed Release (Dr/Ec) 81 mg PO DAILY 30 Days Qty: 30 0RF divalproex 500 mg Tablet Extended Release 24 Hr 1,000 mg PO BEDTIME 30 Days Qty: 60 0RF benztropine 1 mg Tablet 1 mg PO BID PRN (Reason: EPS) 30 Days Qty: 60 0RF sennosides [Senna Lax] 8.6 mg Tablet 17.2 mg PO BEDTIME PRN (Reason: Constipation) 30 Days Qty: 60 0RF Retacrit 10,000 unit/mL Solution 10,000 unit subcut DIALYSIS X2 MOWEFR Qty: 10 0RF Continued Renal Caps 1 mg Capsule 1 cap PO DAILY Qty: 30 0RF sevelamer carbonate 800 mg tablet 800 mg PO TID@0800,1200,1800 Qty: 90 0RF Discontinued aspirin 81 mg Tablet,Delayed Release (Dr/Ec) 81 mg PO DAILY 30 Days Qty: 30 0RF divalproex 500 mg tablet extended release 24 hr 1,000 mg PO BEDTIME 30 Days Qty: 60 0RF benztropine 1 mg tablet 2 mg PO BID olanzapine 10 mg Recon Soln 5 mg IM BID Qty: 1 0RF thiothixene 5 mg capsule 15 mg PO DAILY Discharge Orders: Discharge Order (Routine); Ordered 08/25/23 Ordered By: Hunter Fernandez Diet: Advance to usual diet Activity on Discharge: As tolerated Stand Alone Forms: Patient Portal Discharge page Print Language: Polish Care Plan Goals: Care plan goals achieved in this admission Health Concerns: Continue with treatment with outpatient providers. Plan of Treatment: Continue with psychiatric treatment as an outpatient Assessment: The patient is an elderly male with end-stage renal disease and bipolar disorder who was admitted for exacerbation of lindy in the context of noncompliance. The patient was restarted on his regular medications and we continue treatment as affirmed healthcare proxy wishes. At this moment the patient is safe in the community.
[2023-08-25] MEDS: Sevelamer Carbonate Tablet 800 MG TABLET PO (12:48)
[2023-08-25] MEDS: Aspirin Enteric Coated 81 MG TABLET.DR PO (12:49)
[2023-08-25] MEDS: ARIPiprazole 20 MG TABLET PO (12:49)
[2023-08-25] MEDS: Multivitamin TABLET 1 TAB PO (12:49)
== END 2023-08-25 14:15 | disposition home or self-care (01) | DRG 885 ==
PROVIDERS: Internal Medicine; Internal Medicine Nephrology; Admitting Provider Psychiatry & Neurology Psychiatry; Visit Provider Psychiatry & Neurology Psychiatry
DX: F31.9 Bipolar disorder, unspecified (principal); N18.6 End stage renal disease; I12.0 Hypertensive chronic kidney disease with stage 5 chronic kidney disease or end stage renal disease; D63.1 Anemia in chronic kidney disease; N25.0 Renal osteodystrophy; Z99.2 Dependence on renal dialysis; Z91.148 Patient's other noncompliance with medication regimen for other reason; Z91.158 Patient's noncompliance with renal dialysis for other reason; Z79.82 Long term (current) use of aspirin; Z79.899 Other long term (current) drug therapy
CPT/HCPCS: 36415; 80048; 80051; 82310; 83540; 84100; 85014; 85018; 85027; 90999; J2060; J2359

== ENCOUNTER → 2023-08-02 15:51 | Outpatient (BNV) | payer MEDICARE, SELFPAY | PROVIDERS: Admitting Provider Psychiatry & Neurology Psychiatry; Visit Provider Psychiatry & Neurology Psychiatry | DX: F31.13 Bipolar disorder, current episode manic without psychotic features, severe (principal); N18.6 End stage renal disease; Z99.2 Dependence on renal dialysis; D64.9 Anemia, unspecified | CPT/HCPCS: 99231; 99232 ==

== ENCOUNTER → 2023-08-02 15:51 | Outpatient (BNV) | payer MEDICARE, SELFPAY | PROVIDERS: Admitting Provider Psychiatry & Neurology Psychiatry; Visit Provider Psychiatry & Neurology Psychiatry | DX: F31.13 Bipolar disorder, current episode manic without psychotic features, severe (principal); N18.6 End stage renal disease; Z99.2 Dependence on renal dialysis | CPT/HCPCS: 99222; 99231; 99232; 99238 ==

== ENCOUNTER 2024-04-23 05:38 | Outpatient (REF) | payer MEDICARE, SELFPAY ==
[2024-04-23 05:54] LABS: Basophils Percent Auto 0.8 % (0-2); Eosinophils Absolute Auto 0.2 X10*3/uL (0.0-0.4); Eosinophils Percent Auto 6.6 % (0-4); Imm Gran Abs Auto 0.01 X10*3/uL (0.00-0.03); Imm Gran Pct Auto 0.4 % (0.0-0.4); Lymphocytes Absolute Auto 0.7 X10*3/uL (1.2-4.9); Lymphocytes Percent Auto 26.6 % (20-40); MANUAL DIFF FLAG SCAN; Mean Corpuscular HGB Conc 33.5 g/dl (31.0-36.0); Mean Corpuscular Hemoglobin 34.3 pg (27.0-33.0); Mean Corpuscular Volume 102.5 fL (80.0-98.0); Monocytes Absolute Auto 0.5 X10*3/uL (0.1-1.2); Monocytes Percent Auto 20.3 % (2-11); Neutrophils Absolute Auto 1.2 x10*3/uL (2.0-8.3); Neutrophils Percent Auto 45.3 % (45-73); Red Blood Count 2.01 X10*6/uL (4.60-5.80); Red Cell Distribution Width 16.4 % (11.0-16.0); SCAN SMEAR FLAG 1; White Blood Count 2.6 X10*3/uL (4.8-10.8)
[2024-04-23 06:19] LABS: Alanine Aminotransferase < 6 U/L (0-40); Alkaline Phosphatase 41 U/L (39-117); Anion Gap 14 (12-20); Aspartate Amino Transferase 14 U/L (5-37); Bilirubin Total 0.3 mg/dL (0.0-1.0); Blood Urea Nitrogen 17 mg/dL (9-16); Calcium 9.3 mg/dL (8.4-10.2); Carbon Dioxide 29 mmol/L (22-29); Chloride 97 mmol/L (96-108); Estimated Glomerular Filt Rate 11; Glucose Random 67 mg/dL (60-115); Potassium 4.2 mmol/L (3.3-5.1); Sodium 136 mmol/L (135-145); Total Protein 5.5 g/dL (6.5-8.0)
[2024-04-23 06:57] LABS: Hematocrit 20.6 % (42.0-52.0); Hemoglobin 6.9 g/dl (14.0-18.0)
[2024-04-23 07:16] LABS: Mean Platelet Volume 10.6 fL (9.4-12.4); Platelet Count 80 X10*3/uL (160-400)
[2024-04-23 07:17] LABS: SLIDE REVIEW VERIFIED
== END 2024-04-23 05:39 | disposition home or self-care (01) ==
LOC: HO.MMNH1L 05:38
PROVIDERS: Visit Provider Nurse Practitioner
DX: J18.9 Pneumonia, unspecified organism (principal)
CPT/HCPCS: 36415; 80053; 85025

== ENCOUNTER 2024-04-24 12:43 | Outpatient (REF) | payer MEDICARE, SELFPAY ==
[2024-04-24 13:02] LABS: Basophils Percent Auto 0.6 % (0-2); Eosinophils Absolute Auto 0.2 X10*3/uL (0.0-0.4); Eosinophils Percent Auto 6.3 % (0-4); Hematocrit 22.4 % (42.0-52.0); Hemoglobin 7.4 g/dl (14.0-18.0); Imm Gran Abs Auto 0.01 X10*3/uL (0.00-0.03); Imm Gran Pct Auto 0.3 % (0.0-0.4); Lymphocytes Absolute Auto 0.7 X10*3/uL (1.2-4.9); MANUAL DIFF FLAG SCAN; Mean Corpuscular Hemoglobin 34.4 pg (27.0-33.0); Mean Corpuscular Volume 104.2 fL (80.0-98.0); Monocytes Absolute Auto 0.7 X10*3/uL (0.1-1.2); Neutrophils Absolute Auto 1.6 x10*3/uL (2.0-8.3); Neutrophils Percent Auto 50.8 % (45-73); Red Blood Count 2.15 X10*6/uL (4.60-5.80); Red Cell Distribution Width 16.6 % (11.0-16.0); SCAN SMEAR FLAG 1; White Blood Count 3.2 X10*3/uL (4.8-10.8)
[2024-04-24 13:06] LABS: Platelet Count 82 X10*3/uL (160-400)
[2024-04-24 13:40] LABS: SLIDE REVIEW VERIFIED
--- OUTSIDE RECORDS SUMMARY | 2024-04-24 14:31 | XMS_ITS | Continuity of Care Document ---
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 Name Role Phone Brooke Morales Primary Care Physician [id number] Date(s): 03/25/24 - 03/25/[address] [address]- Discharge Disposition: A-D/C Home Attending Physician: Toño Laureano MD Admitting Physician: Toño Laureano MD Referring Physician: Not on Staff, Referring MD Encounter Type: Disch ES Allergies, Adverse Reactions, Alerts No Known Medication Allergies Immunizations Given and Recorded Vaccine Date Status Refusal Reason SARS-CoV-2 (COVID-19) mRNA-1273 vaccine 06/24/20 R ecorded SARS-CoV-2 (COVID-19) mRNA-1273 vaccine 05/13/20 R ecorded Medications acetaminophen 325 mg oral tablet 650 mg, By Mouth, Every 8 hours, PRN, Refills 0, Maintenance, Pain , Mild, 01/10/24 3:01:00 PM EDT, Partial fill upon patient request if the prescription is for a schedule II opioid drug. Start Date: 01/10/24 Status: Ordered Repeat number: 1 apixaban 2.5 mg oral tablet 1 tablet = 2.5 mg, By Mouth, 2 times a day, # 60 tablet, 0 Refills, Maintenance, 01/05/24 9:00:00 AMEDT, Tablet, Partial fill upon patient request if the prescription is for a schedule II opioid drug. Start Date: 01/05/24 Status: Ordered Quantity: 60.0 Unit: tablet Repeat number: 1 ARIPiprazole 20 mg oral tablet 1 tablet = 20 mg, By Mouth, Daily, # 30 tablet, 0 Refills, Maintenance, 01/08/24 7:34:00 AM EDT, Tablet, Partial fill upon patient request if the prescription is for a schedule II opioid drug. Start Date: 01/08/24 Status: Ordered Quantity: 30.0 Unit: tablet Repeat number: 1 ARIPiprazole 5 mg oral tablet 5 mg, 1, tablet, By Mouth, Daily, # 30 tablet, Refills 0, Maintenance, 01/08/24 7:34:00 AM EDT, Partial fill upon patient request if the prescription is for a schedule II opioid drug. Start Date: 01/08/24 Status: Ordered Quantity: 30.0 Unit: tablet Repeat number: 1 aspirin 81 mg oral tablet 1 tablet = 81 mg, By Mouth, Daily, 0 Refills, Maintenance, 06/07/19 8:09:00 AM EST Start Date: 06/07/19 Status: Ordered Repeat number: 1 benztropine 1 mg oral tablet 1 mg, 1, tablet, By Mouth, 2 times a day, Tremors, Refills 0, Maintenance, 02/10/24 10:50:00 AM EST,Partial fill upon patient request if the prescription is for a schedule II opioid drug. Start Date: 02/10/24 Status: Ordered Repeat number: 1 Compression Stockings See Instructions, # 1 pair, Maintenance, surgical, calf length 30-40 mm Hg, 06/11/14 8:35:06 AM EDT,Compound Start Date: 06/11/14 Status: Ordered Quantity: 1.0 Unit: pair Repeat number: 1 divalproex sodium 500 mg oral tablet, extended release 2 tablet = 1,000 mg, By Mouth, Daily at bedtime, # 30 tablet, 0 Refills, Maintenance, 02/08/24 12:15:00 PM EST, ER Tablet, Partial fill upon patient request if the prescription is for a schedule II opioid drug. Start Date: 02/08/24 Status: Ordered Quantity: 30.0 Unit: tablet Repeat number: 1 metoprolol 25 mg oral tablet 25 mg, By Mouth, 2 times a day, # 30 tablet, Refills 0, Tot. Refills 0, Maintenance, 12/19/23 1:36:00 PM EDT, Route to Pharmacy Electronically, [facility], Partial fill upon patient request if the prescription is for a schedule II opioid drug., 183, cm, 12/19/23 7:11:00 EDT, Height, 88.8, kg, 12/15/23 19:09:00 EDT, Dry Weight Start Date: 12/19/23 Stop Date: 01/18/24 Status: Ordered Quantity: 30.0 Unit: tablet Repeat number: 1 sevelamer carbonate 800 mg oral tablet 1 tablet = 800 mg, By Mouth, 3 times a day with meals, 0 Refills, Maintenance, 12/19/23 2:36:00 PM EDT, Tablet, Partial fill upon patient request if the prescription is for a schedule II opioid drug. Start Date: 12/19/23 Status: Ordered Repeat number: 1 thiothixene 5 mg oral capsule 3 capsule = 15 mg, By Mouth, Daily, 0 Refills, Maintenance, 06/11/14 7:58:14 AM EDT Start Date: 06/11/14 Status: Ordered Repeat number: 1 Triphrocaps oral capsule 1 capsule, By Mouth, Daily, 0 Refills, Maintenance, 06/09/20 3:19:00 PM EST, Partial fill upon patient request if the prescription is for a schedule II opioid drug. Start Date: 06/09/20 Status: Ordered Repeat number: 1 Problem List Condition Confirmation Course Effective Dates Status Health St atus Informant Acute systolic congestive heart failure Confirmed Active Atrial fibrillation Confirmed Active Bipolar 1 disorder Confirmed Active DVT (deep venous thrombosis) Confirmed Active ESRD on hemodialysis Confirmed Active Hypertension Confirmed Active Severe aortic stenosis Confirmed Active Results Radiology Reports * Exam Date Time Procedure Performing Provider Status 03/25/24 12:49 PM Chest Portable Estella Bowman [facility] (Verified) Notes: (Chest Portable) Reason For Exam: Cough RESULT: Chest Portable Chest Portable Hx of Present Illness: c o SOB for past few days, dx with PNA today at . sent for abx; Reason: Cough; Clinical Question(s): Pneumonia; Order Comment: 1143 patient not ready, having a breathing treatment-[facility] COMPARISON: 01/09/2024 FINDINGS: LINES AND TUBES: None. LUNGS AND PLEURA: There is pulmonary vascular congestion which is less pronounced than on the previous exam. There are bilateral pleural effusions, left larger than right. Airspace disease at the left more than right lung base could reflect atelectasis and/or pneumonia. No pneumothorax. HEART, MEDIASTINUM AND VALORIE: Unchanged cardiac size, with TAVR. BONES AND SOFT TISSUES: No acute abnormality. IMPRESSION: Pulmonary vascular congestion with bilateral pleural effusions, left greater than right. Airspace disease in the left lung base could reflect atelectasis or pneumonia. WSN: [id number] Ordering Physician: Nehemias Mayorga Dictated By: Francy Damon MD Dictated Date/Time: 03/25/24 12:52 p Reviewed By: Francy Damon MD Signed By: Francy Damon MD Signed Date/Time: 03/25/24 12:52 pm Transcribed By: CAROLYN Transcribed Date/Time: 03/25/24 12:51 pm Vital Signs Most recent to oldest [Reference Range]: 1 2 3 Height 183 cm (03/25/24 5:26 PM) 183 cm (03/25/24 1:47 PM) 183 cm (03/25/24 11:43 AM) Weight 96 kg (03/25/24 5:26 PM) 96 kg (03/25/24 1:47 PM) 96 kg (03/25/24 11:43 AM) Oxygen Saturation [94-100 %] 96 % (03/25/24: PM) 97 % (03/25/24 1:47 PM) 100 % (03/25/24 11:43 AM) Pulse Rate [55-90 bpm] 76 bpm (03/25/24 5:26 PM) 72 bpm (03/25/24 1:47 PM) 64 bpm (03/25/24 11:43 AM) Body Mass Index [18.5-24.99 kg/m2] 28.67 kg/m2 *H* (03/25/24 5:26 PM) 28.67 kg/m2 *H* (03/25/24 1:47 PM) 28.67 kg/m2 *H* (03/25/24 11:43 AM) Blood Pressure [90-138/55-84 mm Hg] 153/98mm Hg *H* (03/25/24 5:26 PM) 181/61mm Hg *H* (03/25/24 1:47 PM) 176/80mm Hg *H* (03/25/24 11:43 AM) Respiratory Rate [16-30 br/min] 19 br/min (03/25/24 5:26 PM) 18 br/min (03/25/24 1:47 PM) 18 br/min (03/25/24 11:43 AM) Temperature [96.8-100.4 DegF] 98.4 DegF (03/25/24 5:26 PM) 98.1 DegF (03/25/24 1:47 PM) 98.1 DegF (03/25/24 9:30 AM) Liters per Minute 2 L/min (03/25/24 5:26 PM) 2 L/min (03/25/24 1:47 PM) 2 L/min (03/25/24 11:43 AM) Mode of Delivery (Oxygen) Nasal cannula (03/25/24 5:26 PM) Nasal cannula (03/25/24 1:47 PM) Nasal cannula (03/25/24 11:43 AM) Blood pressure sites Arm, right (03/25/24 5:26 PM) Arm, right (03/25/24 1:47 PM) Arm, left (03/25/24 11:43 AM) Temperature Route Oral (03/25/24 5:26 PM) Oral (03/25/24 1:47 PM) Temporal (03/25/24 9:30 AM) Dry Weight 96 kg (03/25/24 5:26 PM) 96 kg (03/25/24 1:47 PM) 96 kg (03/25/24 11:43 AM) Weight Obtained Via Standing scale (03/25/24 9:30 AM) Social History Social History Type Response Smoking Status Never (less than 100 in lifetime) entered on: 06/07/19 Sex Sex Representation Male (finding) EKG study * Event Display: ECG 12-Lead Authored Date: Please click on pdf link to open report * Event Display: ECG 12-Lead Authored Date: Ventricular Rate: 66 BPM Atrial Rate: 66 BPM P-R Interval: 172 ms QRS Duration: 88 ms Q-T Interval: 420 ms QTC Calculation(Bazett): 440 ms P [place]: 38 degrees R [place]: 17 degrees T [place]: 40 degrees Normal sinus rhythm Normal ECG When compared with ECG of 24-Jan-2024 16:45, No significant change was found Confirmed by ANDRZEJ FENTON MD ([id number]) on 03/25/2024 8:08:14 PM [place]: ANDRZEJ FENTON MD Patient Care team information Care Team Personnel Name: Chico Pack Position: S Associate Professional Member Role: Lifetime Consulting Provider Address: [address] [place] [address] [facility] [address] Telecom: Name: Yissel Beasley RN Position: S RN Member Role: Primary Care Nurse Name: Jayleen Mayfield Position: [facility] Associate Professional Member Role: Lifetime Consulting Provider Address: [address] [place] [address] [facility] [address] Telecom: Name: Ad Ewing MD Position: [facility] Renal MD Member Role: Lifetime Consulting Physician Address: [address] [place] [address] [facility] [address] Telecom: Name: Kylah Feng RN Position: [facility] RN Member Role: Primary Care Nurse Name: Pratibha Conley MD Position: [facility] Renal MD Member Role: Lifetime Consulting Physician Address: [address] [place] [address] [facility] [address] Telecom: Name: Trice Garcia RN Position: S RN Member Role: Primary Care Nurse Name: Jessie Villanueva RN Position: S RN Member Role: Primary Care Nurse Name: Shirley Cohn RN Position: S RN Member Role: Primary Care Nurse Name: Cammie Conley RN Position: S RN Member Role: Primary Care Nurse Name: Kandy Stanton RN Position: S RN Member Role: Primary Care Nurse Name: Brooke Morales Position: S Outreach Member Role: PCP Address: [address] [place] [address] Telecom: Name: Yahaira Guerrero RN Position: S RN Member Role: Primary Care Nurse Name: Analy Guzman Position: [facility] RN Member Role: Primary Care Nurse Name: Manoj Brunson MD Position: [facility] Outreach Member Role: Lifetime Consulting Physician Address: [address] [facility] [place] [place] [address] Tele[facility]: Name: Holly Marcano RN Position: [facility] RN Member Role: Primary Care Nurse Name: Bradley Pena MD Position: [facility] Renal MD Member Role: Lifetime Consulting Physician Address: [address] [facility] [place] [place] [address] Tele[facility]: Name: Mariana Mcclain RN Position: [facility] RN Member Role: Primary Care Nurse Care Team Related Persons Name: LEONID HERZOG Insurance Providers Guarantor name: TONO HERZOG Health Plan Information #: 1 Payer: MEDICARE PART B OUTPT Member Number: [id number] Policy Number: NA Group Number: NA Health Plan Information #: 2 Payer: [employer] SUP Member Number: [id number] Policy Number: NA Group Number: NA Health Plan Information #: 3 Payer: MEDICARE A INPT 25 Member Number: NA Policy Number: NA Group Number: NA
--- OUTSIDE RECORDS SUMMARY | 2024-04-24 14:31 | XMS_ITS | Continuity of Care Document ---
Author Organization [facility] ter Address [address] [place] [id number]- Care Team Providers Care Technology Recruiter Name Role Phone Brooke Morales Primary Care Physician Encounter [facility] Date(s): 03/25/24 - 04/18/24 [facility] [address] [place] [id number] Discharge Disposition: A-Transfer SNF Attending Physician: Joey Chavez MD Admitting Physician: Sabine Méndez MD Referring Physician: Sabine Méndez MD Encounter Type: Disch IP Allergies, Adverse Reactions, Alerts No Known Medication [...] Date: 02/10/24 Status: Ordered Repeat number: 1 calcitriol 0.25 mcg oral capsule = 1 mcg, By Mouth, Every Monday, Monday and Monday, # 15 tablet, 0 Refills, Maintenance, 04/18/2511:06:00 PM EST, Capsule, Partial fill upon patient request if the prescription is for a schedule II opioid drug. Start Date: 04/18/24 Stop Date: 05/18/24 Status: Ordered Quantity: 15.0 Unit: tablet Repeat number: 1 Compression Stockings See Instructions, # 1 pair, Maintenance, surgical, calf length 30-40 mm Hg, 06/11/14 8:35:06 AM EDT,Compound Start Date: 06/11/14 Status: Ordered Quantity: 1.0 Unit: pair Repeat number: 1 divalproex sodium 500 mg oral enteric coated tablet = 500 mg, By Mouth, 3 times a day, takes 500mg three times plus 500mg at bedtime ordered separately, # 90 tablet, 0 Refills, Maintenance, 04/18/24 12:52:00 PM EST, Tablet, Partial fill upon patient request if the prescription is for a schedule II opioid drug. Start Date: 04/18/24 Stop Date: 05/18/24 Status: Ordered Quantity: 90.0 Unit: tablet Repeat number: 1 divalproex sodium 500 mg oral enteric coated tablet = 500 mg, By Mouth, Daily at bedtime, # 30 tablet, 0 Refills, Maintenance, 04/18/24 12:53:00 PM EST,Tablet, Partial fill upon patient request if the prescription is for a schedule II opioid drug. Start Date: 04/18/24 Stop Date: 05/18/24 Status: Ordered Quantity: 30.0 Unit: tablet Repeat number: 1 metoprolol 25 mg oral tablet 25 mg, By Mouth, 2 times a day, # 30 tablet, Refills 0, Tot. Refills 0, Maintenance, 12/19/23 1:36:00 PM EDT, Route to Pharmacy Electronically, [facility], Partial fill upon patient request if the prescription is for a schedule II opioid drug., 183, cm, 12/19/23 7:11:00 EDT, Height, 88.8, kg, 12/15/23 19:09:00 EDT, Dry Weight Start Date: 12/19/23 Stop Date: 01/18/24 Status: Ordered Quantity: 30.0 Unit: tablet Repeat number: 1 metoprolol 25 mg oral tablet, extended release 25 mg, XL Tablet, By Mouth, Hold for: sbp<120, hr<60, 04/18/24 9:00:00 AM EST Start Date: 04/18/24 Stop Date: 04/18/24 Status: Completed Repeat number: 1 sevelamer carbonate 800 mg oral tablet = 1,600 mg, By Mouth, 3 times a day with meals, # 90 tablet, 0 Refills, Maintenance, 04/18/24 12:49:00 PM EST, Tablet, Partial fill upon patient request if the prescription is for a schedule II opioiddrug. Start Date: 04/18/24 Stop Date: 05/18/24 Status: Ordered Quantity: 90.0 Unit: tablet Repeat number: 1 thiamine 100 mg oral tablet 100 mg, By Mouth, Daily, for 30 days, # 30 tablet, Refills 0, Tot. Refills 0, Acute 05/18/24 12:50:00 PM EST, 04/18/24 12:50:00 PM EST, Do Not Route, Partial fill upon patient request if the prescription is for a schedule II opioid drug. Start Date: 04/18/24 Stop Date: 05/18/24 Status: Ordered Quantity: 30.0 Unit: tablet Repeat number: 1 thiothixene 5 mg oral capsule 3 capsule = 15 mg, By Mouth, Daily, 0 Refills, Maintenance, 06/11/14 7:58:14 AM EDT Start Date: 06/11/14 Status: Ordered Repeat number: 1 torsemide 100 mg oral tablet 1 tablet = 100 mg, By Mouth, Every Monday, and Monday, # 13 tablet, 0 Refills, Maintenance, 04/18/24 12:07:00 PM EST, Tablet, Partial fill upon patient request if the prescription is for aschedule II opioid drug. Start Date: 04/18/24 Status: Ordered Quantity: 13.0 Unit: tablet Repeat number: 1 Triphrocaps oral capsule 1 capsule, By Mouth, Daily, 0 Refills, Maintenance, 06/09/20 3:19:00 PM EST, Partial fill upon patient request if the prescription is for a schedule II opioid drug. Start Date: 06/09/20 Status: Ordered Repeat number: 1 vancomycin 125 mg oral capsule = 125 mg, By Mouth, 4 times a day, for 4 days, Doses over 125 mg require ID consult. Indication forUse: C. difficile colitis, # 16 tablet, 0 Refills, Acute 04/22/24 12:49:00 PM EST, 04/18/24 12:49:00 PM EST, Capsule, Partial fill upon patient request if the prescription is for a schedule II opioid drug. Start Date: 04/18/24 Stop Date: 04/22/24 Status: Ordered Quantity: 16.0 Unit: tablet Repeat number: 1 Problem List Condition Confirmation Course Effective Dates Status Health St atus Informant Acute systolic congestive heart failure Confirmed Active Atrial fibrillation Confirmed Active Bipolar 1 disorder Confirmed Active DVT (deep venous thrombosis) Confirmed Active ESRD on hemodialysis Confirmed Active Hypertension Confirmed Active Severe aortic stenosis Confirmed Active Results Radiology Reports * Exam Date Time Procedure Performing Provider Status 03/30/24 2:06 PM Chest Portable Moriah Smalls M; Au th (Verified) Notes: (Chest Portable) Reason For Exam: CHF RESULT: Chest Portable Chest Portable Reason: CHF; Clinical Question(s): CHF; Order Comment: patient is on [id number] COMPARISON: 03/29/2024 FINDINGS: LINES AND TUBES: None. LUNGS AND PLEURA: Low lung volumes. Limited exam. Small left effusion. Vasculature appears similar to previous exam. Possible vascular congestion. HEART, MEDIASTINUM AND VALORIE: Unchanged. Normal mediastinal and hilar contour. BONES AND SOFT TISSUES: No acute abnormality. IMPRESSION: Possible findings of vascular congestion similar to previous exam. WSN: [id number] Ordering Physician: Joe Cortes Dictated By: Cisco Gibson MD Dictated Date/Time: 03/30/24 8:49 pm Reviewed By: Cisco Gibson MD Signed By: Cisco Gibson MD Signed Date/Time: 03/30/24 8:49 pm Transcribed By: CAROLYN Transcribed Date/Time: 03/30/24 8:48 pm * Exam Date Time Procedure Performing Provider Status 03/30/24 11:47 AM MRI Brain W/O Contrast Rakesh Mena baljinder; Auth (Verified) Notes: (MRI Brain W/O Contrast) Reason For Exam: Aphasia RESULT: MRI Brain W/O Contrast MRI Brain W/O Contrast INDICATION / CLINICAL QUESTION: Reason: Aphasia; Clinical Question(s): Infarction; Order Comment: Please see Reference Text for complete list of contraindications Infarction TECHNIQUE: MRI of the brain was performed without contrast utilizing sagittal T1, axial T2, axial FLAIR, axial SWAN, and axial DWI sequences. COMPARISON: Head CT and CTA 03/29/2024. FINDINGS: Image quality is degraded by patient motion. Within this technical confine: BRAIN and EXTRA-AXIAL SPACES: The ventricles and sulci are globally prominent reflecting volume loss. There is a focal area of hemosiderin staining in the superomedial left parietal lobe, and a second area of focal susceptibility artifact in inferior to this region in the left parietal lobe white matter. No definite focal tissue loss in this area, though assessment is somewhat limited due to motion. Altered diffusion signal in the edge of the area susceptibility artifact is likely related to artifact, and there is no diffusion abnormality elsewhere to indicate acute or subacute infarction. The FLAIR imaging is severely motion degraded. This limits assessment for focal FLAIR abnormality. There is no acute hemorrhage, midline shift, or mass effect. There is no extra- axial collection. Flow voids are preserved in the dominant intracranial vessels. EXTRACRANIAL SOFT TISSUES: There have been lens replacements bilaterally. There is mucosal thickening throughout the visualized paranasal sinuses with fluid in the bilateral mastoid air cells. BONES: Marrow signal is preserved. IMPRESSION: Motion degraded exam. Within the confines of motion artifact: 1. No acute/subacute infarct, mass, evidence of acute hemorrhage, or other acute intracranial abnormality. 2. Areas of old hemorrhage are demonstrated in the superior left parietal lobe. WSN: [id number] Ordering Physician: Lidya Adorno Dictated By: Francy Damon MD Dictated Date/Time: 03/30/24 12:02 p Reviewed By: Francy Damon MD Signed By: Francy Damon MD Signed Date/Time: 03/30/24 12:02 pm Transcribed By: CAROLYN Transcribed Date/Time: 03/30/24 11:57 am * Exam Date Time Procedure Performing Provider Status 03/30/24 12:[address] Angio Neck Stupak , Pb; Auth (V erified) Notes: (CT Angio Neck) Reason For Exam: Other: RESULT: CT Angio Neck CT Angio Head, CT Angio Neck Reason: Other:; Clinical Question(s): Other:; Order Comment: / Other: TECHNIQUE: CT angiogram of the head and neck was performed after bolus administration of intravenous contrast. 100 mL of Isovue 300 was administered intravenously. Coronal and sagittal MIP reformatted images were obtained. Additional 3-D images were created on a separate workstation under concurrent supervision by the attending radiologist. All stenoses are measured using NASCET criteria. Weight-based protocol using automatic tube modulation was used to optimize exposure parameters. RADIATION DOSE PARAMETERS: CTDIvol Body: 13.40 mGy, DLP Body: 426 mGy*cm. CTDIvol Head: 46.90 mGy, DLP Head: 773 mGy*cm. COMPARISON: Noncontrast CT head performed concurrently. FINDINGS: CTA OF THE NECK: Arch: There is a three vessel aortic arch. There is moderate atherosclerotic plaque of the aortic arch, and images are degraded by motion artifact, but origins of the supra aortic vessels are patent. Right carotid system: The common carotid and cervical internal carotid arteries are patent. There is predominantly calcified atherosclerotic plaque at the carotid bifurcation, but no ICA stenosis (0%) by NASCET criteria. Left carotid system: The common carotid and cervical internal carotid arteries are patent. There iscalcified atherosclerotic plaque at the carotid bifurcation, but no ICA stenosis (0%) by NASCET criteria. There is a co-dominant vertebral artery system. Right vertebral: Patent. The origin and V1 segments are suboptimally visualized due to motion. Left vertebral: Patent. Other: Soft tissues and bones: No evidence of lymphadenopathy or mass. The thyroid is unremarkable. There are bilateral pleural effusions and there are patchy nodular consolidative as well as groundglass opacities at both lung apices. Multilevel degenerative changes of the spine are noted, without acute osseous abnormality. CTA OF THE HEAD: Image quality is degraded by motion and beam hardening artifact which limits visualization of the smaller caliber and distal intracranial branch vessels Anterior circulation: Bilateral intracranial ICAs demonstrate atherosclerotic calcification, without stenosis. Bilateral SKYLAR and MCA branches are patent. Fenestrated anterior communicating artery complex. There is no high-grade stenosis, proximal cutoff, aneurysm, or vascular malformation. Posterior circulation: Bilateral intracranial vertebral arteries, the basilar artery, and bilateralsuperior cerebellar and posterior cerebral branches are patent. There is no high-grade stenosis, proximal cutoff, aneurysm, or vascular malformation. There is origin of the right posterior cerebral artery. Veins: Major dural venous sinuses are patent. Other: Soft tissues and bones: No midline shift or effacement of the basal cisterns. No space-occupying hemorrhage. No acute territorial loss of tristan-white matter differentiation. There have been lens extractions bilaterally. Mucosal thickening throughout the paranasal sinuses. Patchy partial opacification of the bilateral mastoid air cells. IMPRESSION: No proximal occlusion or high grade stenosis in the major arteries of the head and neck. Bilateral pleural effusions. Partially imaged patchy opacities in both lungs are nonspecific but could reflect an infectious/inflammatory process or edema. A similar preliminary report was provided by [facility]. WSN: [id number] Ordering Physician: Lidya Adorno Dictated By: Francy Damon MD Dictated Date/Time: 03/30/24 11:03 a Reviewed By: Francy Damon MD Signed By: Francy Damon MD Signed Date/Time: 03/30/24 11:03 am Transcribed By: CSB Transcribed Date/Time: 03/30/24 8:58 am * Exam Date Time Procedure Performing Provider Status 03/30/24 12:[address] Angio Head Stupak , Pb; Auth (V erified) Notes: (CT Angio Head) Reason For Exam: Other: RESULT: CT Angio Head CT Angio Head, CT Angio Neck Reason: Other:; Clinical Question(s): Other:; Order Comment: / Other: TECHNIQUE: CT angiogram of the head and neck was performed after bolus administration of intravenous contrast. 100 mL of Isovue 300 was administered intravenously. Coronal and sagittal MIP reformatted images were obtained. Additional 3-D images were created on a separate workstation under concurrent supervision by the attending radiologist. All stenoses are measured using NASCET criteria. Weight-based protocol using automatic tube modulation was used to optimize exposure parameters. RADIATION DOSE PARAMETERS: CTDIvol Body: 13.40 mGy, DLP Body: 426 mGy*cm. CTDIvol Head: 46.90 mGy, DLP Head: 773 mGy*cm. COMPARISON: Noncontrast CT head performed concurrently. FINDINGS: CTA OF THE NECK: Arch: There is a three vessel aortic arch. There is moderate atherosclerotic plaque of the aortic arch, and images are degraded by motion artifact, but origins of the supra aortic vessels are patent. Right carotid system: The common carotid and cervical internal carotid arteries are patent. There is predominantly calcified atherosclerotic plaque at the carotid bifurcation, but no ICA stenosis (0%) by NASCET criteria. Left carotid system: The common carotid and cervical internal carotid arteries are patent. There iscalcified atherosclerotic plaque at the carotid bifurcation, but no ICA stenosis (0%) by NASCET criteria. There is a co-dominant vertebral artery system. Right vertebral: Patent. The origin and V1 segments are suboptimally visualized due to motion. Left vertebral: Patent. Other: Soft tissues and bones: No evidence of lymphadenopathy or mass. The thyroid is unremarkable. There are bilateral pleural effusions and there are patchy nodular consolidative as well as groundglass opacities at both lung apices. Multilevel degenerative changes of the spine are noted, without acute osseous abnormality. CTA OF THE HEAD: Image quality is degraded by motion and beam hardening artifact which limits visualization of the smaller caliber and distal intracranial branch vessels Anterior circulation: Bilateral intracranial ICAs demonstrate atherosclerotic calcification, without stenosis. Bilateral SKYLAR and MCA branches are patent. Fenestrated anterior communicating artery complex. There is no high-grade stenosis, proximal cutoff, aneurysm, or vascular malformation. Posterior circulation: Bilateral intracranial vertebral arteries, the basilar artery, and bilateralsuperior cerebellar and posterior cerebral branches are patent. There is no high-grade stenosis, proximal cutoff, aneurysm, or vascular malformation. There is origin of the right posterior cerebral artery. Veins: Major dural venous sinuses are patent. Other: Soft tissues and bones: No midline shift or effacement of the basal cisterns. No space-occupying hemorrhage. No acute territorial loss of tristan-white matter differentiation. There have been lens extractions bilaterally. Mucosal thickening throughout the paranasal sinuses. Patchy partial opacification of the bilateral mastoid air cells. IMPRESSION: No proximal occlusion or high grade stenosis in the major arteries of the head and neck. Bilateral pleural effusions. Partially imaged patchy opacities in both lungs are nonspecific but could reflect an infectious/inflammatory process or edema. A similar preliminary report was provided by [facility]. WSN: [id number] Ordering Physician: Lidya Adorno Dictated By: Francy Damon MD Dictated Date/Time: 03/30/24 11:03 a Reviewed By: Francy Damon MD Signed By: Francy Damon MD Signed Date/Time: 03/30/24 11:03 am Transcribed By: CAROLYN Transcribed Date/Time: 03/30/24 8:58 am * Exam Date Time Procedure Performing Provider Status 03/30/24 12:[address] Head/Brain W/O Contrast Stupak , Pb; Auth (Verified) Notes: (CT Head/Brain W/O Contrast) Reason For Exam: unreesponsive, r/o stroke;Other: RESULT: CT Head/Brain W/O Contrast CT Head/Brain W/O Contrast INDICATION: Reason: Other:; unreesponsive, r o stroke; Clinical Question(s): Infarction; r o stroke; Order Comment: reason? sent [id number] TECHNIQUE: Noncontrast head CT using axial technique and reconstructed in axial and coronal planes.Iterative reconstruction techniques are used to optimize dose and image quality. CTDIvol Head: 46.90 mGy, DLP Head: 773 mGy*cm. COMPARISON: None. FINDINGS: Barrel Rifler view findings, lines and tubes: None. BRAIN AND EXTRA-AXIAL SPACES: No parenchymal hemorrhage, midline shift, or mass effect. Tristan-white matter differentiation is wellpreserved. No acute infarct. Negative insular ribbon sign. Atherosclerotic vascular calcification of the carotid arteries but negative hyperdense vessel sign. Ventricles, sulci, and basilar cisterns are normal. No white matter lesions. No subarachnoid hemorrhage. No subdural or epidural collection. CALVARIUM, SKULL BASE, AND SOFT TISSUES: No fractures or suspicious bony lesions. Mucosal thickening of bilateral maxillary, ethmoidal, sphenoidal and frontal sinuses. Trace bilateral mastoid effusions left greater than right. Lenses The extracranial soft tissues are unremarkable. IMPRESSION: No acute intracranial pathology. Extensive bilateral sinus disease. Trace bilateral mastoid effusion. I have personally reviewed the images and I agree with this report. WSN: [id number] Ordering Physician: Lidya Adorno Dictated By: Autumn Justice MD Dictated Date/Time: 03/30/24 6:51 am Reviewed By: Damion Pete MD Signed By: Damion Pete MD Signed Date/Time: 03/30/24 6:56 am Transcribed By: CAROLYN Transcribed Date/Time: 03/30/24 0:40 am * Exam Date Time Procedure Performing Provider Status 03/29/24 3:04 AM Chest Portable Sandi Daniels; Gregorio ( Verified) Notes: (Chest Portable) Reason For Exam: desats to 70s when off oxygen;Other: RESULT: Chest Portable Chest Portable Reason: desats to 70s when off oxygen; Clinical Question(s): Pneumonia; Fluid overload, atelectasis, pneumonia. COMPARISON: Multiple priors, most recent 03/27/2024. FINDINGS: LINES AND TUBES: Overlying support apparatus. LUNGS AND PLEURA: Mild prominence of the pulmonary vascularity with cephalization. Left lower lobe airspace opacity with obscuration of the left hemidiaphragm.. Decreased aeration of the right lung. Small bilateral pleural effusions, increased on the right. No pneumothorax. HEART, MEDIASTINUM AND VALORIE: Moderate prominence of the cardiac silhouette. Aorta is mildly calcified. BONES AND SOFT TISSUES: No acute abnormality. Status post TAVR. IMPRESSION: Mildly worsened CHF pattern. Bilateral pleural effusions. I have personally reviewed the images and I agree with this report. WSN: [id number] Ordering Physician: Mariana Schultz Dictated By: Abi Valero DO Dictated Date/Time: 03/29/24 7:52 am Reviewed By: Artemio Huff MD Signed By: Artemio Huff MD Signed Date/Time: 03/29/24 7:57 am Transcribed By: CAROLYN Transcribed Date/Time: 03/29/24 7:48 am * Exam Date Time Procedure Performing Provider Status 03/27/24 1:16 PM Chest Portable Darci Marsh; Auth (V erified) Notes: (Chest Portable) Reason For Exam: Shortness of Breath RESULT: Chest Portable Chest Portable upright at 12:51 PM Reason: Shortness of Breath; Clinical Question(s): CHF COMPARISON: Multiple priors, the most recent 03/25/2024 FINDINGS: LINES AND TUBES: None. LUNGS AND PLEURA: Increased pulmonary vascularity again is noted, most prominent in the lower right lung. There is haziness in the left lung base with a partially obscured left hemidiaphragm and costophrenic angle. Lungs are otherwise clear. Left pleural effusion. No pneumothorax. HEART, MEDIASTINUM AND VALORIE: Stable cardiac size. Status post TAVR. Normal mediastinal and hilar contour. BONES AND SOFT TISSUES: No acute abnormality. IMPRESSION: Mild CHF with left pleural effusion, similar to the study of 03/25/2024. Bibasilar atelectasis. Status post remote TAVR. WSN: [id number] Ordering Physician: Lidya Adorno Dictated By: Damion Pete MD Dictated Date/Time: 03/27/24 2:18 pm Reviewed By: Damion Pete MD Signed By: Damion Pete MD Signed Date/Time: 03/27/24 2:18 pm Transcribed By: CAROLYN Transcribed Date/Time: 03/27/24 2:16 pm Vital Signs Most recent to oldest [Reference Range]: 1 2 3 Height 183 cm (04/18/24 8:47 AM) 183 cm (04/17/24 8:19 PM) 183 cm (04/17/24 1:45 PM) Weight 80.63 kg (04/11/24 5:36 AM) 82.3 kg (04/06/24 2:05 AM) 80.5 kg (04/01/24 10:00 PM) Oxygen Saturation [94-100 %] 94 % (04/18/24 8:47 AM) 95 % (04/17/24 8:19 PM) 96 % (04/17/24 1:45 PM) Pulse Rate [55-90 bpm] 55 bpm (04/18/24 11:19 AM) 66 bpm (04/18/24 8:47 AM) 70 bpm (04/17/24 8:19 PM) Body Mass Index [18.5-24.99 kg/m2] 26.4 kg/m2 *H* (03/29/24 5:22 AM) 28.52 kg/m2 *H* (03/25/24 8:17 PM) Blood Pressure [90-138/55-84 mm Hg] 115/60mm Hg (04/18/24 11:19 AM) 119/69mm Hg (04/18/24 8:47 AM) 125/88mm Hg (04/17/24 8:19 PM) Respiratory Rate [16-30 br/min] 18 br/min (04/18/24 8:47 AM) 20 br/min (04/17/24 8:19 PM) 18 br/min (04/17/24 1:45 PM) Temperature [96.8-100.4 DegF] 98.0 DegF (04/18/24 8:47 AM) 97.3 DegF (04/17/24 8:19 PM) 97.6 DegF (04/17/24 1:45 PM) Liters per Minute 2 L/min (04/06/24 10:00 AM) 2 L/min (04/06/24 8:00 AM) 2 L/min (04/06/24 6:00 AM) Mode of Delivery (Oxygen) Room air (04/18/24 8:47 AM) Room air (04/17/24 8:19 PM) Room air (04/17/24 1:45 PM) Blood pressure sites Arm, right (04/18/24 8:47 AM) Arm, right (04/17/24 8:19 PM) Arm, right (04/17/24 1:45 PM) Temperature Route Oral (04/18/24 8:47 AM) Oral (04/17/24 8:19 PM) Oral (04/17/24 1:45 PM) Dry Weight 95.5 kg (03/25/24 8:17 PM) Weight Obtained Via Bed scale (04/11/24 5:36 AM) Bed scale (04/01/24 10:00 PM) Bed scale (03/31/24 4:00 AM) Dry Weight Obtained Via Patient/family s tated (03/25/24 8:17 PM) Social History Social History Type Response Smoking Status Never (less than 100 in lifetime) entered on: 06/07/19 Sex Sex Representation Male (finding) History and physical note * Luis BARAKAT, Denisha Davis: MODIFY, MODIFY, MODIFY, PERFORM Event Display: History and Physical Hospital Authored Date: Patient: ??MINO, TONO ? Age:??69 Years?Sex:??Male?:??1955?? History of Present Illness 03/25 ?? 69-year-old male with PMH including HTN, HLD, ESRD on HD, DVT on Eliquis, A-fib, history of severe aortic stenosis s/p TAVR (Dr Denny, 01/08/2024), anemia, thrombocytopenia, bipolar, benign tremors.??Patient presented to [facility] ER with cough. ?? Patient states that he is coughing for about??1 week??with yellowish phlegm, no??blood.?? No fever,chills.?? No sick contact. ??Denies any chest pain.?? Does have shortness of breath,??mostly on exertion.?? No orthopnea/PND.?? Has noticed??increased??swelling of the legs, no pain. ?? So far patient has been afebrile, heart rate controlled, blood pressure slightly elevated, patient is on 2 L oxygen.?? Labs showed WBC 2.6 with lymphopenia, hemoglobin 8.6 with MCV 103, platelets 72,potassium 5.3, creatinine 10.52, lactate normal.?? COVID-negative, influenza negative, RSV positive.?? EKG showed sinus rhythm with heart rate of 66, QTc 440.?? Chest x-ray showing pulmonary vascularcongestion with bilateral pleural effusions, left greater than right. Airspace disease in the left lung base could reflect atelectasis or pneumonia. ?? Patient was given ceftriaxone and doxycycline.?? Patient transferred to [facility] as patient needs hemodialysis. Review of Systems All systems reviewed and negative except as in HPI. Objective Measurements?? Height: 183 cm (03/25/24) ?? Vital Signs?? Temperature: 97.8 DegF (03/25/24 21:12:00) Temperature Route: Oral (03/25/24 21:12:00) Pulse Rate: 86 bpm (03/25/24 21:12:00) Respiratory Rate: 19 br/min (03/25/24 21:12:00) Systolic Blood Pressure:??158 mm Hg??High (03/25/24:12:00) Diastolic Blood Pressure:??94 mm Hg??High (03/25/24 21:12:00) Blood pressure sites: Arm, right (03/25/24 21:12:00) Mean Arterial Pressure: 115 mm Hg (03/25/24 21:12:00) Pulse Pressure: 64 mm Hg (03/25/24 21:12:00) Oxygen Saturation: 98 % (03/25/24 21:12:00) Liters per Minute: 2 L/min (03/25/24 20:17:00) Mode of Delivery (Oxygen): Room air (03/25/24 21:12:00) Early Warning Score: 2 (03/25/24 22:48:40) ? Physical Exam Constitutional: ??Alert,??no acute distress, co-operative, lying on the bed, on oxygen. Tremor. Mental state: Oriented x 3. Head: ??Normocephalic, atraumatic. ?? Eye:?No discharge. ENT: No discharge. Neck: ??Supple,??no JVD. Cardiovascular: ??S1, S2. Regular rhythm. No MRG. Respiratory: ??Lungs are clear to auscultation b/l,??crackles on bases. ? Gastrointestinal: ??Soft, Nontender, Non distended, ??Normal bowel sounds.?? Genitourinary: No costovertebral angle tenderness. Neurological: ??Cranial nerves intact. Motor and sensory intact. Back: ??Nontender. Musculoskeletal: ??Normal ROM.?? b/l edema. Hematology: No lymphadenopathy Skin: ??Warm, dry. Psychiatric: ??Cooperative.?? Assessment/Plan Diagnoses A-fib ??(I48.91) Acute respiratory failure with hypoxia ??(J96.01) Anemia, macrocytic ??(D53.9) Anxiety and depression ??(F41.9) DVT (deep venous thrombosis) ??(I82.409) ESRD (end stage renal disease) on dialysis ??(N18.6) H/O aortic valve stenosis ??(Z86.79) HLD (hyperlipidemia) ??(E78.5) HTN (hypertension) ??(I10) Hyperkalemia ??(E87.5) Lymphopenia ??(D72.810) Pneumonia ??(J18.9) RSV infection ??(B33.8) S/P TAVR (transcatheter aortic valve replacement) ??(Z95.2) SOB (shortness of breath) on exertion ??(R06.02) Thrombocytopenia ??(D69.6) Volume overload ??(E87.70) ?? Assessment:? 69-year-old male with PMH including HTN, HLD, ESRD on HD, DVT on Eliquis, A-fib, history of severe aortic stenosis s/p TAVR (Dr Denny, 01/08/2024), anemia, thrombocytopenia, bipolar, benign tremors.??Patient presented to [facility] ER with cough. ?? Acute respiratory failure with hypoxia (J96.01):??- RSV infection (B33.8):??- Pneumonia (J18.9):??- Lymphopenia (D72.810):??- Volume overload (E87.70):??- SOB (shortness of breath) on exertion (R06.02):??- H/O aortic valve stenosis (Z86.79):??- S/P TAVR (transcatheter aortic valve replacement) (Z95.2):??- Patient presents with 7 days of??cough??with sputum production,??positive for RSV, chest x-ray alsoconcerning for??possible atelectasis versus pneumonia.??Patient also feels short of breath on exertion??and is on oxygen at this time,??1 overloaded with crackles??on auscultation and??pulmonary conge stion/pleural effusion??on imaging.??Volume overload likely related to??ESRD??although patient doeshave??history of aortic stenosis and recent TAVR. ?? Continue isolation. Supportive care??for RSV. Received antibiotic for suspected pneumonia,??at this time??afebrile,??has lymphopenia.??For now wewill continue ceftriaxone and doxycycline.??Follow-up blood culture, sputum??culture, urine antigens, MRSA,??procalcitonin level??and de-escalate antibiotics. Monitor oxygen saturation and supplement with oxygen as required. Shortness of breath on exertion likely also related to volume??overload.??Patient will get hemodialysis which??should control??his symptoms.??Will also continue??diuretic, will give IV Lasix for now. Cardiology consult considering recent TAVR. ?? ESRD (end stage renal disease) on dialysis (N18.6):??Patient gets hemodialysis Mondays and Fridays.??However??due to??holiday??schedule patient??was??supposed to get hemodialysis??Monday??and week.??Hence last hemodialysis was??Monday.??Transfer to [facility] as??outside hospital does not have facility??for hemodialysis.??Consult placed for RTANE.?Continue sevelamer. ?? Hyperkalemia (E87.5):??Due to??renal failure.??Lokelma ordered.??Hemodialysis. ?? HTN (hypertension) (I10):??Continue metoprolol. ?? A-fib (I48.91):??Continue apixaban.??Continue metoprolol. ?? DVT (deep venous thrombosis) (I82.409):??Continue apixaban. ?? Anemia, macrocytic (D53.9):??At baseline, monitor. ?? Thrombocytopenia (D69.6):??At baseline, monitor. ?? Anxiety and depression (F41.9):??Continue home medications including??aripiprazole, benztropine, divalproex.??Thiothixene nonformulary, can have his own medication. ?? VTE Prophylaxis:??on apixaban ?VTE Prophylaxis Assessment:??VTE Prophylaxis Ordered ?? Discharge Planning:? Code Status:??full code ?Order Code Status:??Code Status Ordered ? Estimated Discharge Date ? Histories Allergies Allergies ?(Active and Proposed Allergies Only) No Known Medication Allergies? (Severity: Unknown severity, Onset: Unknown) ? Past Medical History/Problem List Active Problems(7) Acute systolic congestive heart failure Atrial fibrillation Bipolar 1 disorder DVT (deep venous thrombosis) ESRD on hemodialysis Hypertension Severe aortic stenosis ? Past Surgical History Fistulogram AV - Arteriovenous fistula ? Social History Alcohol Details:??Use: Past. Substance Abuse Details:??Use: Never. Tobacco Details:??Use: Never (less than 100 in lifetime). ? Family History Mother: CAD - Coronary artery disease Father: Cancer - unknown origin ? Medications Home Medications Acetaminophen (acetaminophen 325 mg oral tablet)?650?Milligram?By Mouth?Every 8 hours?as needed?Pain , Mild apixaban (apixaban 2.5 mg oral tablet)?1?tab(s)?2.5?Milligram?By Mouth?2 times a day Aripiprazole (ARIPiprazole 5 mg oral tablet)?5?Milligram?1?tablet?By Mouth?Daily Aripiprazole (ARIPiprazole 20 mg oral tablet)?1?tab(s)?20?Milligram?By Mouth?Daily Aspirin (aspirin 81 mg oral tablet)?1?tab(s)?81?Milligram?By Mouth?Daily Benztropine (benztropine 1 mg oral tablet)?1?Milligram?1?tablet?By Mouth?2 times a day?Tremors Divalproex Sodium (divalproex sodium 500 mg oral tablet, extended release)?2?tab(s)?1,000?Milligram?By Mouth?Daily at bedtime Durable Medical Equipment (Compression Stockings)?See Instructions?surgical, calf length 30-40 mm Hg Metoprolol (metoprolol 25 mg oral tablet)?25?Milligram?By Mouth?2 times a day?for 30?Days Multivitamin (Triphrocaps oral capsule)?1?capsule?By Mouth?Daily Sevelamer (sevelamer carbonate 800 mg oral tablet)?1,600?Milligram?By Mouth?3 times a day with meals?1?tab(s)?800 Thiothixene (thiothixene 5 mg oral capsule)?1?capsule?5?Milligram?By Mouth?2 times a day?3?15?Daily ? Inpatient Medications Medications (19) Active SCHEDULED: (11) Apixaban 2.5 mg Tablet (apixaban) ??2.5 mg, By Mouth, 2 times a day Aripiprazole 10mg Tablet (ARIPiprazole 10 mg oral tablet) ??20 mg, By Mouth, Daily Aripiprazole 5 mg Tablet (ARIPiprazole 5 mg oral tablet) ??5 mg, By Mouth, Daily Benztropine 1 mg Tablet (benztropine 1 mg oral tablet) ??1 mg, By Mouth, 2 times a day Ceftriaxone 1 Gm Inj (Ceftriaxone IVPB) ??1 Gm, IVPB, Every 24 hours Divalproex Sodium 500mg ER Tablet (Depakote ER Tablet) ??1,000 mg, By Mouth, Daily at bedtime Doxycycline 100 mg Inj (Doxycycline IVPB) ??100 mg, IVPB, Every 12 hours Furosemide Inj (Lasix ??Inj) ??40 mg 4 mL, IV Push Slowly, Daily Metoprolol 25 mg XL Tablet (metoprolol 25 mg oral tablet, extended release) ??25 mg, By Mouth, 2 times a day NaCl 0.9% Flush 3ml (NaCL 0.9% Flush) ??3 mL, IV Push, Every 8 hours Sevelamer Carbonate 800 mg Tablet (sevelamer carbonate 800 mg oral tablet) ??800 mg, By Mouth, 3 times a day with meals CONTINUOUS: (0) PRN: (8) Acetaminophen 325 mg Tablet (Acetaminophen Tablet) ??650 mg, By Mouth, Every 4 hours Dextromethorphan-Guaifenesin 20 mg-200 mg/10 mL Liqu UD (Robitussin DM Liquid) ??10 mL, By Mouth, Every 4 hours Docusate Sodium 100 mg Capsule (Docusate Sodium Capsule) ??100 mg 1 capsule, By Mouth, 2 times a day Melatonin 3 mg Tablet (Melatonin Tablet) ??3 mg, By Mouth, Daily at bedtime NaCl 0.9% Flush 3ml (NaCL 0.9% Flush) ??3 mL, IV Push, Every 8 hours Polyethylene Glycol 17 Gm Powder (MiraLax Powder) ??17 Gm 1 pack/packet, By Mouth, Daily Senna Tablet ??8.6 mg 1 tablet, By Mouth, 2 times a day Simethicone 80 mg Chewable Tablet (Simethicone Tablet) ??80 mg, Chew, 3 times a day ? Results Recent Labs BLOOD COUNT & DIFF WBC 2.6 k/mm3 (Low)?? 03/25/2024 09:41 RBC 2.64 m/mm3 (Low)?? 03/25/2024 09:41 Hgb 8.6 Gm/dL (Low)?? 03/25/2024 09:41 Hct 27.2 % (Low)?? 03/25/2024 09:41 MCV 103.0 femtoliters (High)?? 03/25/2024 09:41 MCH 32.6 pg ()?? 03/25/2024 09:41 MCHC 31.6 Gm/dL (Low)?? 03/25/2024 09:41 Platelet Count 72 k/mm3 (Low)?? 03/25/2024 09:41 RDW-SD 66.1 femtoliters (High)?? 03/25/2024 09:41 MPV 10.7 femtoliters ()?? 03/25/2024 09:41 Nucleated RBC (Automated) 0.0 #/100 WBC'S ()?? 03/25/2024 09:41 Abs. NRBC 0.0 k/mm3 ()?? 03/25/2024 09:41 Abs. Neut 1.8 k/mm3 ()?? 03/25/2024 09:41 Abs. Lymph 0.3 k/mm3 (Low)?? 03/25/2024 09:41 Abs. [place] 0.5 k/mm3 ()?? 03/25/2024 09:41 Abs. Eo 0.0 k/mm3 ()?? 03/25/2024 09:41 Abs. Baso 0.0 k/mm3 ()?? 03/25/2024 09:41 Neut % 67.0 % ()?? 03/25/2024 09:41 Lymph % 10.0 % (Low)?? 03/25/2024 09:41 [place] % 19.0 % (High)?? 03/25/2024 09:41 Eos % 1.0 % ()?? 03/25/2024 09:41 Baso % 0.0 % ()?? 03/25/2024 09:41 Band % 1.0 % ()?? 03/25/2024 09:41 Atypical Lymph % 2.0 % ()?? 03/25/2024 09:41 RBC Morphology MODERATE ()?? 03/25/2024 09:41 Platelet Estimate DECREASED ()?? 03/25/2024 09:41 ?? CHEM GENERAL Sodium 137 mmol/L ()?? 03/25/2024 09:41 Potassium 5.3 mmol/L (High)?? 03/25/2024 09:41 Chloride 92 mmol/L (Low)?? 03/25/2024 09:41 Bicarbonate Level 28 mmol/L ()?? 03/25/2024 09:41 Anion Gap 17 ()?? 03/25/2024 09:41 Glucose Level 140 mg/dL (High)?? 03/25/2024 09:41 BUN 52 mg/dL (High)?? 03/25/2024 09:41 Creatinine-Blood 10.52 mg/dL (High)?? 03/25/2024 09:41 Estimated GFR Creatinine 5 ML/MIN/1.73 M2 ()?? 03/25/2024 09:41 Calcium 9.6 mg/dL ()?? 03/25/2024 09:41 Lactate 1.3 mmol/L ()?? 03/25/2024 13:46 ?? HEME OTHER Hold Blue Top SPECIMEN DISCARDED AFTER 4 HOURS. ()?? 03/25/2024 09:41 ?? MISC. CHEMISTRY Hold Green Top SPECIMEN DISCARDED AFTER 1 WEEK ()?? 03/25/2024 09:41 Hold Gel Top SPECIMEN DISCARDED AFTER 1 WEEK ()?? 03/25/2024 09:41 Hold Tristan Top SPECIMEN DISCARDED AFTER 1 WEEK ()?? 03/25/2024 09:41 ?? URINE OTHER Est Creatinine Clearance 7.08 mL/min ()?? 03/25/2024 10:04 ?? VIROLOGY Influenza A PCR NEGATIVE ()?? 03/25/2024 09:35 Influenza B PCR NEGATIVE ()?? 03/25/2024 09:35 RSV PCR POSITIVE (Abnormal)?? 03/25/2024 09:35 COVID-19 PCR Specimen Source NASAL ()?? 03/25/2024 09:35 COVID-19 PCR Result NEGATIVE ()?? 03/25/2024 09:35 ? US Heart * Event Display: Echocardiogram - Complete Authored Date: [id number] Transthoracic Echocardiography Report (TTE) Patient Demographics Patient Name TONO HERZOG Date of Study 04/01/2024 Corporate Gender Male Facility Race .[id number] Ethnicity Date of 1955 Height: 72.05 inches Age 69 year(s) Weight: 185.19 pounds Accession Number [id number] BSA: 2.06 m2 Room Number [id number] BMI: 25.08 kg/m2 Referring Physician Lidya Adorno MD Interpreting Bret Snow MD Physician [employer] Antonio Hunt Indications CVA. Clinical History HLD HTN ESRD Atrial fibrillation. TAVR DVT Study Data Type of Study TTE procedure:Echo Complete-(Doppler, Colorflow) with Contrast. Procedure Information:Definity was administered by [employer] Lab[employer] . Study Date04/01/2024 Start Time: 01:59 PM Study Location: [facility] Adult Echo Study Status: Bedside Patient Status: Routine Technical Quality: Technically difficult due to non-compliant. Blood Pressure:156/62 mmHg EKG: Normal sinus rhythm HR: 49 bpm Contrast Medium: Definity. Amount - 2 ml Allergies - No known allergies. 2D Measurements LV Diastolic Dimension: 6.2 cm LV Systolic Dimension: 4.2 cm LV Septum Diastolic: 1 cm LV PW Diastolic: 1 cm LA Dimension: 4.9 cm LA ESV (BP):64.6 ml LVOT Stroke Volume: 149.64 ml LA ESV Index: 31 ml/m2 Stroke Volume Index72.64 ml/m2 LVOT: 2.5 cm Cardiac Index:3.56 l/min/m2 Ascending Aorta:3 cm Doppler Measurements AV Peak Velocity: 207 cm/s MV Peak E-Wave: 145 cm/s AV Peak Gradient: 17.14 mmHg MV Peak A-Wave: 129 cm/s AV Mean Gradient: 11 mmHg MV E/A Ratio: 1.12 AV VTI:49.2 cm MV P1/2t: 102 msec LVOT Peak Velocity: 138 cm/s MV Mean Gradient: 4 mmHg LVOT VTI30.5 cm MV Area (continuity): 2.24 cm2 AV Area (Continuity):3.04 cm2 MV Deceleration Time: 349 msec MV Area (PHT): 2.16 cm2 PV Peak Velocity: 120 cm/s E' Septal Velocity: 5.75 cm/s PV Peak Gradient: 5.76 mmHg E' Lateral Velocity: 7.62 cm/s E/Med E':25.39001 E/Lat E':19.80895 Cardiac Anatomy Left Ventricle/Interventricular Septum The left ventricle is mildly dilated. The left ventricular wall thickness is normal. The left ventricular ejection fraction is visually in the 55% range. There are no definite regional wall motion abnormalities. There is no evidence of left ventricular thrombus. There is diastolic dysfunction with indeterminate left atrial pressure. Left Atrium/Interatrial Septum The left atrium is normal in size. There is lipomatous hypertrophy of the interatrial septum. Aortic Valve There is a bioprosthetic (26 mm EP AMADOU) valve in the aortic position, which is poorly seen. There is no significant aortic regurgitation appreciated on limited imaging. The mean gradient is 11 mmHg. Mitral Valve There is moderate mitral annular calcification. There is trace mitral regurgitation. The mitral valve mean gradient is 4 mmHg at a heart rate of 52 bpm. Aorta The ascending aorta is normal in size. Right Ventricle The right ventricle is mildly dilated. Right ventricular systolic function is normal. Right Atrium The right atrium is normal in size. Pulmonic Valve The pulmonic valve is poorly visualized. There is trace pulmonic regurgitation. Tricuspid Valve The tricuspid valve is poorly visualized. Pumonary Artery An accurate pulmonary artery pressure could not be obtained. Venous Structures The inferior vena cava size is normal with normal inspiratory collapse. The central venous pressure estimation is 3 mmHg. Pericardium/Extracardiac There is an epicardial fat pad present. There is a left-sided pleural effusion. Summary The left ventricle is mildly dilated. The left ventricular wall thickness is normal. The left ventricular ejection fraction is visually in the 55% range. There are no definite regional wall motion abnormalities. There is no evidence of left ventricular thrombus. There is diastolic dysfunction with indeterminate left atrial pressure. The right ventricle is mildly dilated. Right ventricular systolic function is normal. An accurate pulmonary artery pressure could not be obtained. The left atrium is normal in size. There is a bioprosthetic (26 mm EP AMADOU) valve in the aortic position, which is poorly seen. There is no significant aortic regurgitation appreciated on limited imaging. The mean gradient is 11 mmHg. There is moderate mitral annular calcification. There is trace mitral regurgitation. The mitral valve mean gradient is 4 mmHg at a heart rate of 52 bpm. There is a left-sided pleural effusion. Comparison Comparison is made to the study of January 10, 2024. Aortic valve mean gradient is similar. Left ventricle appears more dilated. Signature * Event Display: Echocardiogram - Complete Authored Date: [id number] Cardiology * Event Display: Cardiac Rhythm Strips Authored Date: * Event Display: Cardiac Rhythm Strips Authored Date: * Event Display: Cardiac Rhythm Strips Authored Date: Hospital Progress note * Jayleen Mayfield: PERFORM Event Display: Progress Note Hospital Authored Date: Patient: ??TONO HERZOG ? Age:??69 Years?Sex:??Male?:??1955?? Subjective Had HD yesterday with 2.1 L removed, sodium better today Hgb 7.1 but not yet due for another dose of EPO Patient reports he is feeling well and hoping to go to rehab today Review of Systems Negative except as mentioned above?? Objective Measurements?? Height: 183 cm (04/18/24) Weight: 80.63 kg (04/11/24) Dry Weight: 95.5 kg (03/25/24) Body Mass Index:??26.4 kg/m2??High (03/29/24) ? Vital Signs?? Temperature: 98 DegF (04/18/24 08:47:00) Temperature Route: Oral (04/18/24 08:47:00) Pulse Rate: 66 bpm (04/18/24 08:47:00) Respiratory Rate: 18 br/min (04/18/24 08:47:00) Systolic Blood Pressure: 119 mm Hg (04/18/24 08:47:00) Diastolic Blood Pressure: 69 mm Hg (04/18/24 08:47:00) Blood pressure sites: Arm, right (04/18/24 08:47:00) Mean Arterial Pressure: 86 mm Hg (04/18/24 08:47:00) Pulse Pressure: 50 mm Hg (04/18/24 08:47:00) Oxygen Saturation: 94 % (04/18/24 08:47:00) Mode of Delivery (Oxygen): Room air (04/18/24 08:47:00) Early Warning Score: 9 (04/18/24 08:50:37) ? Intake/Output? 03/25 20:10 04/18 07:00 04/17 07:00 04/16 07:00 04/15 07:00 ?? 04/18 10:36 04/18 10:36 04/18 06:59 04/17 06:59 04/16 06:59 Intake ? 9586 ?0 ?330 ?480 ?520 Output ?46455 ?0 ? 2100 ?0 ? 2200 Net Total ? -35456 ?0 ?-1770 ?480 ?-1680 ? Urine Count ?5 ?0 ?1 ?1 ?0 ? Physical Exam General: No acute distress?? Respiratory: Unlabored on room air?? Extremities: Trace lower extremity edema. Neuro: AAOx3 _ Inpatient Medications Medications (22) Active SCHEDULED: (15) Apixaban 2.5 mg Tablet (Apixaban Tablet) ??2.5 mg, By Mouth, 2 times a day Aripiprazole 10mg Tablet (Abilify 10 mg oral tablet) ??25 mg, By Mouth, Daily Benztropine 1 mg Tablet (benztropine 1 mg oral tablet) ??1 mg, By Mouth, 2 times a day Calcitriol 0.25 mcg Capsule (calcitriol 0.25 mcg oral capsule) ??1 mcg, By Mouth, Every Monday, Monday and Monday Divalproex 500 mg Tablet (Depakote Tablet) ??500 mg, By Mouth, 3 times a day Divalproex 500 mg Tablet (Depakote Tablet) ??500 mg, By Mouth, Daily at bedtime Melatonin 3 mg Tablet (Melatonin Tablet) ??3 mg, By Mouth, Daily at bedtime Metoprolol 25 mg XL Tablet (metoprolol 25 mg oral tablet, extended release) ??25 mg, By Mouth, Daily Multivitamin Tablet ??1 tablet, By Mouth, Daily NaCl 0.9% Flush 3ml (NaCL 0.9% Flush) ??3 mL, IV Push, Every 8 hours Sevelamer Carbonate 800 mg Tablet (sevelamer carbonate 800 mg oral tablet) ??1,600 mg, By Mouth, 3 times a day with meals Thiamine 100 mg Tablet (thiamine 100 mg oral tablet) ??100 mg, By Mouth, Daily thiothixene 5mg capsules ??15 mg, By Mouth, Daily Torsemide 100 mg Tablet (torsemide 100 mg oral tablet) ??100 mg 1 tablet, By Mouth, Every Monday, and Monday Vancomycin 125 mg Capsule (Vancomycin Capsule) ??125 mg, By Mouth, 4 times a day CONTINUOUS: (0) PRN: (7) Acetaminophen 325 mg Tablet (Acetaminophen Tablet) ??650 mg, By Mouth, Every 4 hours Dextromethorphan-Guaifenesin 20 mg-200 mg/10 mL Liqu UD (Robitussin DM Liquid) ??10 mL, By Mouth, Every 4 hours Docusate Sodium 100 mg Capsule (Docusate Sodium Capsule) ??100 mg 1 capsule, By Mouth, 2 times a day NaCl 0.9% Flush 3ml (NaCL 0.9% Flush) ??3 mL, IV Push, Every 8 hours Senna Tablet ??8.6 mg 1 tablet, By Mouth, 2 times a day Simethicone 80 mg Chewable Tablet (Simethicone Tablet) ??80 mg, Chew, 3 times a day Sodium Chloride 0.65% Nasal Langford (Salinex Langford) ??1 sprays, Nares, Both, 4 times a day ? Results Recent Labs BLOOD COUNT & DIFF WBC 3.5 k/mm3 (Low)?? 04/17/2024 02:55 RBC 2.29 m/mm3 (Low)?? 04/17/2024 02:55 Hgb 7.1 Gm/dL (Low)?? 04/18/2024 07:32 Hct 21.5 % (Low)?? 04/18/2024 07:32 MCV 97.4 femtoliters (High)?? 04/17/2024 02:55 MCH 32.8 pg ()?? 04/17/2024 02:55 MCHC 33.6 Gm/dL ()?? 04/17/2024 02:55 Platelet Count 86 k/mm3 (Low)?? 04/17/2024 02:55 RDW-SD 53.9 femtoliters (High)?? 04/17/2024 02:55 MPV 12.1 femtoliters ()?? 04/17/2024 02:55 Nucleated RBC (Automated) 0.0 #/100 WBC'S ()?? 04/17/2024 02:55 Abs. NRBC 0.0 k/mm3 ()?? 04/17/2024 02:55 ?? CHEM GENERAL Sodium 132 mmol/L (Low)?? 04/18/2024 07:33 Potassium 4.3 mmol/L ()?? 04/18/2024 07:33 Chloride 93 mmol/L (Low)?? 04/18/2024 07:33 Bicarbonate Level 29 mmol/L ()?? 04/18/2024 07:33 Anion Gap 10 ()?? 04/18/2024 07:33 Glucose Level 70 mg/dL ()?? 04/18/2024 07:33 BUN 23 mg/dL ()?? 04/18/2024 07:33 Creatinine-Blood 5.54 mg/dL (High)?? 04/18/2024 07:33 Estimated GFR Creatinine 10 ML/MIN/1.73 M2 ()?? 04/18/2024 07:33 Calcium 9.9 mg/dL ()?? 04/18/2024 07:33 Phosphorus 5.8 mg/dL (High)?? 04/17/2024 02:55 Magnesium 2.2 mg/dL ()?? 04/17/2024 02:55 ?? URINE OTHER Est Creatinine Clearance 13.44 mL/min ()?? 04/18/2024 08:50 ? Assessment/Plan Assessment:??Tono Herzog is a 69-year-old male with a past medical history??of HTN, ESRD, A-fib on Eliquis, s/p TAVR (01/08/2024), thrombocytopenia, bipolar disorder, and benign tremors who presented??to [place] on??03/25 with cough, found to have RSV, transferred for HD. Course was complicated by unresponsiveness w/concern for catatonia, neuro workup unrevealing, followed??by psych for potential delirium which improved. Now pending dispo to rehab.? 1. ESRD Patient previously dialyzed Monday/Monday at [facility] with LUE AVF (twice weekly since Nov 2023), likely contributed to worsening mental status, now transitioned back to 3x weekly HD on MWF? 2. HTN / Volume Currently takes metoprolol 25mg daily and torsemide 100 mg non-HD days? 3. Mineral Bone Disease Phos 5.8 PTH 864 (03/08) ?? 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 Recommendations: - HD on MWF schedule - Continue metoprolol and torsemide?? - Continue sevelamer 1600mg TID w/ meals and calcitriol 1.0 mcg MWF?? - Fluid restriction ?? Will continue to follow ?? Jayleen Silva PA-C [facility]?? Discussed with ??[place] * Mayra Guthrie MD: PERFORM Event Display: Progress Note Hospital Authored Date: [id number] Patient and charted reviewed. Management discussed with PA. ??Continue the current management as documented in PA's chart?? * Joey Chavez MD: PERFORM Event Display: Progress Note Hospital Authored Date: [id number] Patient: ??TONO HERZOG ? Age:??69 Years?Sex:??Male?:??1955?? Subjective Patient was seen and examined today at bedside, not in distress Was telling me to undergo blood work Eliquis Sodium is 126 Hemodialysis Monday Pending rehab placement?? Review of Systems All other ROS negative?? Objective Vital Signs?? Temperature: 97.6 DegF (04/17/24 13:45:00) Temperature Route: Oral (04/17/24 13:45:00) Pulse Rate: 66 bpm (04/17/24 13:45:00) Respiratory Rate: 18 br/min (04/17/24 13:45:00) Systolic Blood Pressure: 134 mm Hg (04/17/24 13:45:00) Diastolic Blood Pressure: 60 mm Hg (04/17/24 13:45:00) Blood pressure sites: Arm, right (04/17/24 13:45:00) Mean Arterial Pressure: 85 mm Hg (04/17/24 13:45:00) Pulse Pressure: 74 mm Hg (04/17/24 13:45:00) Oxygen Saturation: 96 % (04/17/24 13:45:00) Mode of Delivery (Oxygen): Room air (04/17/24 13:45:00) Early Warning Score:??10??Critical (04/17/24 13:47:09) ? Intake/Output? 03/25 20:10 04/17 07:00 04/16 07:00 04/15 07:00 04/14 07:00 ?? 04/17 15:19 04/17 15:19 04/17 06:59 04/16 06:59 04/15 06:59 Intake ? 9586 ?330 ?480 ?520 ?280 Output ?79081 ? 2100 ?0 ? 2200 ?0 Net Total ? -93572 ?-1770 ?480 ?-1680 ?280 ? Urine Count ?3 ?0 ?1 ?0 ?1 ? Physical Exam ??General: Lying in bed. Afebrile. NAD. ?Eye: Normal conjunctiva ?HEENT: Normocephalic ?Neck: Supple ?Resp: Nonlabored respirations, CTA, BS+, Equal B/L ?CVS: Normal rate, RRR, No R/M/G, no edema ?GI: Soft, ND, NT. ?Integumentary: Warm, Dry ?? _ Home Medications Acetaminophen (acetaminophen 325 mg oral tablet)?650?Milligram?By Mouth?Every 8 hours?as needed?Pain , Mild apixaban (apixaban 2.5 mg oral tablet)?1?tab(s)?2.5?Milligram?By Mouth?2 times a day Aripiprazole (ARIPiprazole 5 mg oral tablet)?5?Milligram?1?tablet?By Mouth?Daily Aripiprazole (ARIPiprazole 20 mg oral tablet)?1?tab(s)?20?Milligram?By Mouth?Daily Aspirin (aspirin 81 mg oral tablet)?1?tab(s)?81?Milligram?By Mouth?Daily Benztropine (benztropine 1 mg oral tablet)?1?Milligram?1?tablet?By Mouth?2 times a day?Tremors Divalproex Sodium (divalproex sodium 500 mg oral tablet, extended release)?2?tab(s)?1,000?Milligram?By Mouth?Daily at bedtime Durable Medical Equipment (Compression Stockings)?See Instructions?surgical, calf length 30-40 mm Hg Metoprolol (metoprolol 25 mg oral tablet)?25?Milligram?By Mouth?2 times a day?for 30?Days Multivitamin (Triphrocaps oral capsule)?1?capsule?By Mouth?Daily Sevelamer (sevelamer carbonate 800 mg oral tablet)?1,600?Milligram?By Mouth?3 times a day with meals?1?tab(s)?800 Thiothixene (thiothixene 5 mg oral capsule)?1?capsule?5?Milligram?By Mouth?2 times a day?3?15?Daily ? Inpatient Medications Medications (22) Active SCHEDULED: (15) Apixaban 2.5 mg Tablet (Apixaban Tablet) ??2.5 mg, By Mouth, 2 times a day Aripiprazole 10mg Tablet (Abilify 10 mg oral tablet) ??25 mg, By Mouth, Daily Benztropine 1 mg Tablet (benztropine 1 mg oral tablet) ??1 mg, By Mouth, 2 times a day Calcitriol 0.25 mcg Capsule (calcitriol 0.25 mcg oral capsule) ??1 mcg, By Mouth, Every Monday, Monday and Monday Divalproex 500 mg Tablet (Depakote Tablet) ??500 mg, By Mouth, 3 times a day Divalproex 500 mg Tablet (Depakote Tablet) ??500 mg, By Mouth, Daily at bedtime Melatonin 3 mg Tablet (Melatonin Tablet) ??3 mg, By Mouth, Daily at bedtime Metoprolol 25 mg XL Tablet (metoprolol 25 mg oral tablet, extended release) ??25 mg, By Mouth, Daily Multivitamin Tablet ??1 tablet, By Mouth, Daily NaCl 0.9% Flush 3ml (NaCL 0.9% Flush) ??3 mL, IV Push, Every 8 hours Sevelamer Carbonate 800 mg Tablet (sevelamer carbonate 800 mg oral tablet) ??1,600 mg, By Mouth, 3 times a day with meals Thiamine 100 mg Tablet (thiamine 100 mg oral tablet) ??100 mg, By Mouth, Daily thiothixene 5mg capsules ??15 mg, By Mouth, Daily Torsemide 100 mg Tablet (torsemide 100 mg oral tablet) ??100 mg 1 tablet, By Mouth, Every Monday, and Monday Vancomycin 125 mg Capsule (Vancomycin Capsule) ??125 mg, By Mouth, 4 times a day CONTINUOUS: (0) PRN: (7) Acetaminophen 325 mg Tablet (Acetaminophen Tablet) ??650 mg, By Mouth, Every 4 hours Dextromethorphan-Guaifenesin 20 mg-200 mg/10 mL Liqu UD (Robitussin DM Liquid) ??10 mL, By Mouth, Every 4 hours Docusate Sodium 100 mg Capsule (Docusate Sodium Capsule) ??100 mg 1 capsule, By Mouth, 2 times a day NaCl 0.9% Flush 3ml (NaCL 0.9% Flush) ??3 mL, IV Push, Every 8 hours Senna Tablet ??8.6 mg 1 tablet, By Mouth, 2 times a day Simethicone 80 mg Chewable Tablet (Simethicone Tablet) ??80 mg, Chew, 3 times a day Sodium Chloride 0.65% Nasal Langford (Salinex Langford) ??1 sprays, Nares, Both, 4 times a day ? Results Recent Labs BLOOD COUNT & DIFF WBC 3.5 k/mm3 (Low)?? 04/17/2024 02:55 RBC 2.29 m/mm3 (Low)?? 04/17/2024 02:55 Hgb 7.5 Gm/dL (Low)?? 04/17/2024 02:55 Hct 22.3 % (Low)?? 04/17/2024 02:55 MCV 97.4 femtoliters (High)?? 04/17/2024 02:55 MCH 32.8 pg ()?? 04/17/2024 02:55 MCHC 33.6 Gm/dL ()?? 04/17/2024 02:55 Platelet Count 86 k/mm3 (Low)?? 04/17/2024 02:55 RDW-SD 53.9 femtoliters (High)?? 04/17/2024 02:55 MPV 12.1 femtoliters ()?? 04/17/2024 02:55 Nucleated RBC (Automated) 0.0 #/100 WBC'S ()?? 04/17/2024 02:55 Abs. NRBC 0.0 k/mm3 ()?? 04/17/2024 02:55 ?? CHEM GENERAL Sodium 126 mmol/L (Low)?? 04/17/2024 02:55 Potassium 4.3 mmol/L ()?? 04/17/2024 02:55 Chloride 88 mmol/L (Low)?? 04/17/2024 02:55 Bicarbonate Level 24 mmol/L ()?? 04/17/2024 02:55 Anion Gap 14 ()?? 04/17/2024 02:55 Glucose Level 80 mg/dL ()?? 04/17/2024 02:55 BUN 29 mg/dL (High)?? 04/17/2024 02:55 Creatinine-Blood 7.51 mg/dL (High)?? 04/17/2024 02:55 Estimated GFR Creatinine 7 ML/MIN/1.73 M2 ()?? 04/17/2024 02:55 Osmolality 262 mOs/kg (Low)?? 04/16/2024 08:52 Calcium 9.5 mg/dL ()?? 04/17/2024 02:55 Phosphorus 5.8 mg/dL (High)?? 04/17/2024 02:55 Magnesium 2.2 mg/dL ()?? 04/17/2024 02:55 ?? ENDOCRINE/TUMOR MARKER TSH 5.16 uIU/mL (High)?? 04/16/2024 08:52 ?? URINE OTHER Est Creatinine Clearance 9.92 mL/min ()?? 04/17/2024 04:05 ? Blood Gases?? No qualifying data available. ? Assessment/Plan ??69 y/o ld male with PMH including HTN, HLD, ESRD on HD MWF, DVT on Eliquis, A- fib, history of severe aortic stenosis s/p TAVR (Dr Denny, 01/08/2024), anemia, thrombocytopenia, bipolar, benign tremors.??Patient presented to [facility] ER with cough,??he??was found to have??AHRF in the setting ofRSV??and also received??empiric treatment for superimposed bacterial pneumonia.??On 03/29 patient with unresponsive episode, FRONT OFFICE AGENT was called??and??urgent??Neurological consult obtained.??Extensive neuro imaging has been performed??on 03/29 and 03/30??(CT, CTA, MRI)??all of which unrevealing.??Psychiatry was also consulted 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 ?? 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 Per Staff Genetic Counselor he has had similar episodes at outpatient HD requiring Psych consultation Ruled out for stroke or acute hemorrhage??by neuroimaging??(CT/CTA/MRI) Neurology recommending for??EEG??which was negative for seizure Psychiatry evaluation appreciated, patient does not have capacity to refuse his meds or care Geriatrics??evaluated Was reevaluated by and still stating that it is not catatonia and rather delirium leading to his mentation As the valproic acid level was low the night dose of??Depakote was increased to 1 g. Patient was not receiving most of his??psychiatric medications,??was replaced with IM Haldol IM Cogentin Multiple GOC discussions have been held by previous providers, outlying??current hospitalization and the??challenges??that are being placed at this time??given his multiple comorbidities??and??underlying psychiatric illness??causing??the altered mental status. Now on this regimen: Abilify 25mg daily po, home??thiothixene and Depakote PO 500/500/1000 ? Acute respiratory failure with hypoxia (J96.01):??- RSV infection (B33.8):??- Pneumonia (J18.9):??- Lymphopenia (D72.810):??- Volume overload (E87.70):??- SOB (shortness of breath) on exertion (R06.02):??- H/O aortic valve stenosis (Z86.79):??- S/P TAVR (transcatheter aortic valve replacement) (Z95.2):??- Patient presented with 7 days of??cough??with sputum production,??positive for RSV, chest x-ray also concerning for??possible atelectasis versus pneumonia. Patient also feels short of breath on exertion??and is on oxygen at this time,??1 overloaded with crackles??on auscultation and??pulmonary congestion/pleural effusion??on imaging.??Volume overload likely related to??ESRD??although patient does have??history of aortic stenosis and recent TAVR. Seen by Dr. Okeefe 03/31 who recommends for echo??which was performed 04/01??and appears approximately stable,??showing dilated left ventricle Isolation has been discontinued ??PO torsemide on non-HD days?? HD MWF Empiric antibiotics have been discontinued Monitor I/O ? C. difficile diarrhea Hematochezia Patient was developed multiple episodes of diarrhea??while on empiric??antibiotics He was checked for C. difficile and is positive, ON po vanc Does not have any diarrhea??any longer therefore??isolation has been discontinued Apixaban resumed as no further episodes of bleeding noted ?? ESRD (end stage renal disease) on dialysis (N18.6):?? Nephrology aware, dialysis as per schedule. was receiveing twice only as?? due to non compliance HD MWF??schedule ?Acute urinary retention Patient requiring multiple episodes straight cath, Ramirez was placed 04/01, removed ?? Hyperkalemia (E87.5):??Due to??renal failure.?Was given Lokelma. -CTM, HD and Lokelma??as needed No hyperkalemia now ?? HTN (hypertension) (I10):??Continue metoprolol.?? But not compliant ?? A-fib (I48.91):??Eliquis ?? DVT (deep venous thrombosis) (I82.409):??Apixaban? Anemia, macrocytic (D53.9):??At baseline, monitor. ?? Thrombocytopenia (D69.6):??At baseline, monitor. ?? Discharge Planning/???PT evaluation??recommend??rehab,??Plan to DC tomorrow to rehab ? * Reinier Benz RN: PERFORM, SIGN, VERIFY Event Display: Progress Note Hospital Authored Date: Patient: TONO HERZOG Age: 69 years Sex: Male : 1955 Associated Diagnoses: None Author: Reinier Benz RN Findings Narrative/Incidental Renal Nursing Note: Verbal Report Given to: Leanne PENN 3.5 hours Hemodialysis session. K2 bath used for treatment 2.1 Lliters pulled 5.1 % blood volume change Access:Left AVF Site assessment: Clean dry and intact Y - Hemostasis achieved within expected time frame. Treatment notes - Patient had a low blood pressure immediately after commencement of the hemodialysis hence he was given Albumin 25% 150 mls IV with not much effect, after an hour midodrine was given too. All in all, the patient completed his session well. see flowsheet for more details. Post treatment Vital signs documented in flow sheet.. Consult note * Adam ROBLES, Katerine Rivera: PERFORM, MODIFY Event Display: Consultation Note Authored Date: [id number] Patient: ??TONO HERZOG ? Age:??69 Years?Sex:??Male?:??1955?? Subjective Met??patient, discussed with team, reviewed chart. Per patient's RN, the patient was not responding and looking away this morning, refusing care. Thisafternoon he cussed me out. He refused liquid aripiprazole. He did receive 2.5 mg IM Haloperidol.I attempted to speak with the patient. He was asleep but rousable. He was momentarily verbal but mumbled and when asked if he would repeat himself he said no. He then appeared to fall back asleep. I spoke with the patient's , she says in the morning he was not responding in the morning.??However, says after he received IM haldol he appeared somewhat more talkative. ??However, she reports he was not himself, said you are a liar, you lied to me for years. Discussed that he cussed out hisnurse and she reports I dont think he's ever said a swear word in his life and that if he knew what he did he would be appaled, he is the sweetest, gentlest, most friendly person. Discussed his past history of catatonia,?? reports??presentation as?? just staring and not talking, not responding. His last episode of catatonia was in the context of medication non-adherence in July 2023, hewas admitted to [facility] psych unit for over a month. She reports he was started on abilify and it helped but he still wasnt himself and it still had to be increased in December and then once itwas 25 mg he seemed like himself. She reports??the patient had been medication adherent prior to this current admission and?? he seemed fine in the emergency room but as time went on he began to withdraw into himself. She does report the patient has struggled with depressed mood prior to this admi ssion, as he told her he didn't want to continue dialysis over the summer and that his life is?? doctor's appointments, medication, and??dialysis and that's no life. ?? Review of Systems A full ROS was completed and was negative with the exception of pertinent positives noted in the history of the presenting illness (HPI) Allergies Allergies ?(Active and Proposed Allergies Only) No Known Medication Allergies? (Severity: Unknown severity, Onset: Unknown) ? Past Medical History Active Problems(7) Acute systolic congestive heart failure Atrial fibrillation Bipolar 1 disorder DVT (deep venous thrombosis) ESRD on hemodialysis Hypertension Severe aortic stenosis ? Past Surgical History Fistulogram AV - Arteriovenous fistula ? Objective Vital Signs?? Temperature: 97.3 DegF (04/02/24 16:00:00) Temperature Route: Axillary (04/02/24 16:00:00) Pulse Rate: 60 bpm (04/02/24 16:00:00) Heart Rate Monitored: 65 bpm (04/02/24 14:00:15) Respiratory Rate: 18 br/min (04/02/24 16:00:43) Systolic Blood Pressure: 134 mm Hg (04/02/24 16:00:00) Diastolic Blood Pressure: 62 mm Hg (04/02/24 16:00:00) Blood pressure sites: Arm, right (04/02/24 16:00:00) Pulse Pressure: 72 mm Hg (04/02/24 16:00:00) Oxygen Saturation: 100 % (04/02/24 16:00:43) Liters per Minute: 2 L/min (04/02/24 16:00:00) Mode of Delivery (Oxygen): Other: Duff (04/02/24 16:00:00) Early Warning Score: 5 (04/02/24 16:12:28) SOFA Calculated: -1 (04/02/24 10:12:19) ? Physical Exam Mental Status Examination Appearance: hospital attire, eyes closed, furrowed brow Attitude: guarded.? Motor activity:??bilateral tremors Mood:??did not state Affect:??constricted?? Speech: mumbled, low volume Perception:??denies?? Orientation: oriented to person Judgment:??limited? Insight:??limited? Thought process: disorganized Thought content: unable to appreciate Compliance: non-compliant with current treatment plan.? Reliability:??unreliable historian? Suicidality/self-destructive behavior: denies Homicidality/violence: denies _ Home Medications Acetaminophen (acetaminophen 325 mg oral tablet)?650?Milligram?By Mouth?Every 8 hours?as needed?Pain , Mild apixaban (apixaban 2.5 mg oral tablet)?1?tab(s)?2.5?Milligram?By Mouth?2 times a day Aripiprazole (ARIPiprazole 5 mg oral tablet)?5?Milligram?1?tablet?By Mouth?Daily Aripiprazole (ARIPiprazole 20 mg oral tablet)?1?tab(s)?20?Milligram?By Mouth?Daily Aspirin (aspirin 81 mg oral tablet)?1?tab(s)?81?Milligram?By Mouth?Daily Benztropine (benztropine 1 mg oral tablet)?1?Milligram?1?tablet?By Mouth?2 times a day?Tremors Divalproex Sodium (divalproex sodium 500 mg oral tablet, extended release)?2?tab(s)?1,000?Milligram?By Mouth?Daily at bedtime Durable Medical Equipment (Compression Stockings)?See Instructions?surgical, calf length 30-40 mm Hg Metoprolol (metoprolol 25 mg oral tablet)?25?Milligram?By Mouth?2 times a day?for 30?Days Multivitamin (Triphrocaps oral capsule)?1?capsule?By Mouth?Daily Sevelamer (sevelamer carbonate 800 mg oral tablet)?1,600?Milligram?By Mouth?3 times a day with meals?1?tab(s)?800 Thiothixene (thiothixene 5 mg oral capsule)?1?capsule?5?Milligram?By Mouth?2 times a day?3?15?Daily ? Inpatient Medications Medications (26) Active SCHEDULED: (18) Apixaban 2.5 mg Tablet (apixaban) ??2.5 mg, By Mouth, 2 times a day ARIPiprazole 10 mg / 10 mL Oral Syringe (Aripiprazole Oral Solution) ??25 mg 25 mL, By Mouth, Daily Benztropine 1 mg Tablet (benztropine 1 mg oral tablet) ??1 mg, By Mouth, 2 times a day Calcitriol 0.25 mcg Capsule (calcitriol 0.25 mcg oral capsule) ??1.25 mcg, By Mouth, Every Monday Calcitriol 0.25 mcg Capsule (calcitriol 0.25 mcg oral capsule) ??1.25 mcg, By Mouth, Every Monday Furosemide Inj (Lasix ??Inj) ??80 mg 8 mL, IV Push Slowly, Daily Haloperidol Lactate 5 mg/mL Inj (1 mL) (Haldol LACTATE Inj) ??2.5 mg 0.5 mL, Intramuscular, 2 timesa day Melatonin 3 mg Tablet (Melatonin Tablet) ??3 mg, By Mouth, Daily at bedtime Metoprolol 25 mg XL Tablet (metoprolol 25 mg oral tablet, extended release) ??25 mg, By Mouth, 2 times a day Multivitamin Tablet ??1 tablet, By Mouth, Daily NaCl 0.9% Flush 3ml (NaCL 0.9% Flush) ??3 mL, IV Push, Every 8 hours Oxymetazoline 0.05% Nasal Langford (Afrin Nasal) ??1 sprays, Nares, Both, 2 times a day Sevelamer Carbonate 800 mg Tablet (sevelamer carbonate 800 mg oral tablet) ??1,600 mg, By Mouth, 3 times a day with meals Sodium Zirconium 5 Gm Packet (Lokelma Packet) ??5 Gm 1 pack/packet, By Mouth, Once Thiamine 100 mg Inj (Thiamine Inj) ??100 mg 1 mL, IV Push Slowly, Daily thiothixene 5mg capsules ??15 mg, By Mouth, Daily Valproic Acid Sodium 500 mg IVPB (Depacon IVPB) ??500 mg 5 mL, IVPB, Every 8 hours Vancomycin 25mg/mL Oral Syringe 5mL (Vancomycin Suspension) ??125 mg 5 mL, By Mouth, 4 times a day CONTINUOUS: (0) PRN: (8) Acetaminophen 325 mg Tablet (Acetaminophen Tablet) ??650 mg, By Mouth, Every 4 hours Dextromethorphan-Guaifenesin 20 mg-200 mg/10 mL Liqu UD (Robitussin DM Liquid) ??10 mL, By Mouth, Every 4 hours Docusate Sodium 100 mg Capsule (Docusate Sodium Capsule) ??100 mg 1 capsule, By Mouth, 2 times a day NaCl 0.9% Flush 3ml (NaCL 0.9% Flush) ??3 mL, IV Push, Every 8 hours Polyethylene Glycol 17 Gm Powder (MiraLax Powder) ??17 Gm 1 pack/packet, By Mouth, Daily Senna Tablet ??8.6 mg 1 tablet, By Mouth, 2 times a day Simethicone 80 mg Chewable Tablet (Simethicone Tablet) ??80 mg, Chew, 3 times a day Sodium Chloride 0.65% Nasal Langford (Salinex Langford) ??1 sprays, Nares, Both, 4 times a day ? Results Recent Labs BLOOD COUNT & DIFF WBC 4.3 k/mm3 ()?? 04/02/2024 01:28 RBC 2.62 m/mm3 (Low)?? 04/02/2024 01:28 Hgb 8.4 Gm/dL (Low)?? 04/02/2024 01:28 Hct 25.8 % (Low)?? 04/02/2024 01:28 MCV 98.5 femtoliters (High)?? 04/02/2024 01:28 MCH 32.1 pg ()?? 04/02/2024 01:28 MCHC 32.6 Gm/dL (Low)?? 04/02/2024 01:28 Platelet Count 88 k/mm3 (Low)?? 04/02/2024 01:28 RDW-SD 58.4 femtoliters (High)?? 04/02/2024 01:28 MPV 10.8 femtoliters ()?? 04/02/2024 01:28 Nucleated RBC (Automated) 0.0 #/100 WBC'S ()?? 04/02/2024 01:28 Abs. NRBC 0.0 k/mm3 ()?? 04/02/2024 01:28 ?? CHEM GENERAL Sodium 137 mmol/L ()?? 04/02/2024 01:28 Potassium 3.9 mmol/L ()?? 04/02/2024 01:28 Chloride 96 mmol/L (Low)?? 04/02/2024 01:28 Bicarbonate Level 24 mmol/L ()?? 04/02/2024 01:28 Anion Gap 17 ()?? 04/02/2024 01:28 Glucose Level 80 mg/dL ()?? 04/02/2024 01:28 BUN 44 mg/dL (High)?? 04/02/2024 01:28 Creatinine-Blood 7.03 mg/dL (High)?? 04/02/2024 01:28 Estimated GFR Creatinine 8 ML/MIN/1.73 M2 ()?? 04/02/2024 01:28 Calcium 9.6 mg/dL ()?? 04/02/2024 01:28 Phosphorus 6.6 mg/dL (High)?? 04/02/2024 01:28 Magnesium 2.7 mg/dL (High)?? 04/01/2024 07:55 Protein, Total 5.9 Gm/dL (Low)?? 04/01/2024 07:55 Albumin 3.5 Gm/dL ()?? 04/01/2024 07:55 AG Ratio 1.5 ()?? 04/01/2024 07:55 Alkaline Phosphatase 55 units/L ()?? 04/01/2024 07:55 AST (SGOT) 16 units/L ()?? 04/01/2024 07:55 ALT (SGPT) 9 units/L ()?? 04/01/2024 07:55 Bilirubin, Total 0.2 mg/dL ()?? 04/01/2024 07:55 ?? SEROLOGY INF DISEASE C.difficile Toxin INDETERMINATE (Abnormal)?? 03/31/2024 21:11 Legionella pneumophila Antigen NEGATIVE ()?? 03/26/2024 04:50 ?? URINE OTHER Est Creatinine Clearance 10.59 mL/min ()?? 04/02/2024 03:13 ? Abnormal Labs ?? BLOOD COUNT & DIFF Abs. NRBC?0.0 k/mm3 ()?04/02/2024 01:28 Hct?25.8 % (Low)?04/02/2024 01:28 Hgb?8.4 Gm/dL (Low)?04/02/2024 01:28 MCHC?32.6 Gm/dL (Low)?04/02/2024 01:28 MCV?98.5 femtoliters (High)?04/02/2024 01:28 Nucleated RBC (Automated)?0.0 #/100 WBC'S ()?04/02/2024 01:28 Platelet Count?88 k/mm3 (Low)?04/02/2024 01:28 RBC?2.62 m/mm3 (Low)?04/02/2024 01:28 RDW-SD?58.4 femtoliters (High)?04/02/2024 01:28 ?? CHEM GENERAL BUN?44 mg/dL (High)?04/02/2024 01:28 Chloride?96 mmol/L (Low)?04/02/2024 01:28 Creatinine-Blood?7.03 mg/dL (High)?04/02/2024 01:28 Estimated GFR Creatinine?8 ML/MIN/1.73 M2 ()?04/02/2024 01:28 Phosphorus?6.6 mg/dL (High)?04/02/2024 01:28 ?? Note: Critical results are displayed in red. ? Blood Glucose Trend Glucose Level: 80 mg/dL (04/02/24 01:28:00) ? CBC, CBC w/Diff?? CBC?? WBC: 4.3 k/mm3 () RBC:??2.62 m/mm3??Low () Hct:??25.8 %??Low (:) RDW-SD:??58.4 femtoliters??High () Nucleated RBC (Automated): 0 #/100 WBC'S () Abs. NRBC: 0 k/mm3 () ? LFT?? No qualifying data available. ?? Urinalysis Est Creatinine Clearance: 10.59 mL/min (03:13) ?? Cardiology Labs Nt-Probnp:??95038 pg/mL??High (03/31/24 07:47:00) Lipids: Cholesterol: 131 mg/dL (03/30/24 09:00:00) Triglycerides: 144 mg/dL (03/30/24 09:00:00) HDL Cholesterol: 43 mg/dL (03/30/24 09:00:00) LDL Cholesterol: 59 mg/dL (03/30/24 09:00:00) Non HDL Cholesterol: 88 mg/dL (03/30/24 09:00:00) ? Assessment/Plan Assessment: Tono Herzog is a 69 y/o ld male with PMH including HTN, HLD, ESRD on HD, DVT on Eliquis, A-fib, history of severe aortic stenosis s/p TAVR (Dr Denny, 01/08/2024), anemia, thrombocytopenia, bipolar, benign tremors.??Patient presented to [facility] ER with cough,??he??was found to have??AHRF in the setting of RSV??and also received??empiric treatment for superimposed bacterial pneumonia.??On 03/29 patient with unresponsive episode, FRONT OFFICE AGENT was called??and??urgent??Neurological consult obtained.??Extensive neuro imaging has been performed??on 03/29 and 03/30??(CT, CTA, MRI)??all of which unrevealing. Psych is consulted regarding whether to restart his home psychotropic of Abilify ??due to obtundation. Venous Ammonia WNL 26 on 03/29, Valproate level on 03/30 47 low, no recent AST/ALT. On assessment, Tono was not found to be obtunded, he was awake, alert, and engaging in goal productive activity of taking out his hearing aids so they could be charged. He denied any acute psychiatric disturbances, and did not appear to be responding to internal stimuli. Of note, he was requesting for his psychiatric medications to be restarted. ?? 03/31: the patient was seen in follow up, symptoms most consistent with??delirium likely secondary to??bacterial pneumonia. Agree with restarting his medications and use of delirium precautions. Patient is lacking in capacity to make medical decisions at this time, as he is only intermittently ableto express a choice, unable to understand, appreciate or reason through treatment options secondaryto his delirium.? 04/02: Assessed for catatonia due to history, however patient is intermittently medication adherentand responding.??Patient continues to present with presentation concerning for delirium, as he is paranoid,??agitated, and not oriented to situation. He continues to lack capacity to make medical decisions. Will increase haloperidol IM to 5 mg daily to target agitation and paranoia. Continue aripiprazole liquid 25 mg to promote adherence. Continue to monitor for catatonia.??Psych may continue to follow per request. ?? DX: Delirium, likely secondary to bacterial pneumonia; hx of bipolar disorder, ESRD on HD, hard of hearing ?? Medications - Continue home dose Abilify 25mg daily (now liquid since 04/02), Thiothixene 15mg daily (home medication, haldl IM as backup), Benztropine 1mg BID and Depakote. (Home dose is 1000mg PO nightly, currently on 500mg q 8 hours IV). - If patient refuses Thiothixene by mouth, Haldol 5 mg IM daily can be substitute for oral Thiothixene. His / HCP has consented to this. Psychiatric medications will not resolve the underlying delirium, which is the cause of his symptoms ?? Care Plan - The nature of his refusal to engage is not secondary to schizophrenic catatonia and queried by the primary team, this is secondary to the nature?? of delirium with it's waxing and waning symptoms - Patient lacks capacity to make medical decisions secondary to his delirium, recommend invoking use of HCP and consulting social work, if needed -??Continue delirium precautions and prevention strategies: including scheduling Melatonin nightly - Recommend checking Depakote level on increased dose, with LFT's and ammonia on 04/03/2023 ?? -Delirium mitigation factors as noted below.? Examples of interventions designed to mitigate risk factors for delirium include: -Orientation protocols??- Provision of clocks, calendars, windows with outside views, and verbally re-orienting patients may mitigate confusion that results from disorientation in unfamiliar environments. -Cognitive stimulation??- Patients with cognitive impairment, in particular, may benefit from activity such as regular visits from family and friends. At the same time, sensory overstimulation shouldbe avoided, particularly at night. -Facilitation of physiologic sleep?Nursing and medical procedures, including the administration of medications, should be avoided during sleeping hours when possible. Night-time noise should bereduced. -Early mobilization and minimized use of physical restraints for patients with limited mobility. -Visual and hearing aids for patients with these impairments. -Avoiding and/or monitoring the use of problematic medications such as benzodiazepines, opioids, dihydropyridines, anticholinergics and antihistamines. -Avoiding and treating medical complications. -Managing pain?Pain may be a significant risk factor for delirium. The use of nonopioid medications should be used where possible, as these are less likely to aggravate delirium. ?? Katerine Medina, CHRISTIANOP-BC, MSN Child Psychiatry Consultation Liaison Team * Meghna Cortés MD: MODIFY, PERFORM Event Display: Consultation Note Authored Date: Patient: ??TONO HERZOG ? Age:??69 Years?Sex:??Male?:??1955?? History of Present Illness Reason for Consult: _delirium Referring Physician: Kathi Cortes Source of Information/reliability:??chart review, sujata ?? History of Present Illness: _ This is a 69-year-old??male with PMH including??hypertension, hyperlipidemia,??ESRD on HD Monday and Monday??only,??renal failure??related to lithium toxicity, DVT on Eliquis, A-fib,??AF status post TAVR in January 2024,??anemia,??bipolar disorder??who presented??with a cough??for around a week.?? He was found to be anemic, have thrombocytopenia,??creatinine was 10.5,??RSV was positive. ??He was treated for superimposed bacterial pneumonia as well.?? being managed for acute hypoxic respiratory failure, thought to have??some fluid??overload due to??HFpEF??and also needing HD more frequently.?? Per , patient often talked about being tired??and going to medical appointments and had negotiated with his??corporate event planner to change dialysis to twice a week only.?? His hospital course here??has been complicated by delirium. ? He??was initially oriented but since then has had a fluctuating mental status and not at baseline. ??He gets agitated at times and removes his oxygen and desats,??refuses meds??at times, refuses careat times,??refuses to speak at times, not??eating much, combative at times, impulsive and tries to get oob at times,??has required??physical restraints at times, has received multiple??as needed antipsychotics including olanzapine 7.5 IM on 03/26, 5 mg??IM 03/28, 5 mg IV 03/29??and 7.5 mg??04/02.??He had??decreased responsiveness post??dialysis on the .?? Neurology??has seen him. ??EEG??negative for seizures. ??His Depakote??from home was changed to IV 3 times daily.?? MRI brain negative for acute findings.?? Abilify was held on the due to??lethargy. ??Psychiatry was consulted, they felt he was delirious,??recommended resuming home meds and they gave the option??to use??IV Haldol??if he??does not take??home thiothixene.?? He does not have capacity for complex??medical decisions. ?? echo showed EF of 55% and diastolic dysfunction.?? C. difficile was positive on 03/31, he was having??multiple bowel movements.?? He also has a Ramirez for urinary retention.??Yesterday he was uncooperative at dialysis, pulling at monitor and lines, only finished 3.5 hours due to safety concerns.?? Overnight he was pulling off monitor, oxygen, trying to get out of bed, combative, multiple staff needed to help him into bed, got medicated. ?? Geriatrics consulted to assist with delirium/GOC Have??been speaking to medical team spoke to geriatric pharmacist today, he informed us that there is a liquid Abilify option ?? Spoke to patient's ??and healthcare proxy Sujata at bedside She is upset at his current state because??they were celebrating their anniversary??last week, he was driving just last week.?? He got??sick around??[place] time??with a viral infection.?? Per wifeinitially he was at his baseline??initially when he came but since then has been declining. He said that he has been??weaker??since his TAVR??but??was??optimistic and upbeat. She talked about his??history of mental illness and bipolar disorder,??usually his episodes are depressive and he will get irritable or stop talking??and have a different personality,??he had??3 psych related admissions since he started??dialysis in 2019, which was also due to lithium toxicity. ??The last admission was in??July??2023,.?? There have been adherence issues in the past.?? Adherence was better since the summer At baseline he is independent with all ADLs and wants to be independent. ??She is always paid the bills.?? She lays out the medications in a pillbox. ??She used to watch him??and VNA also used to watch him take it.?? He apparently noticed if things were missing from the pillbox. She put in his hearing aids. He is not talking to her at all today. she has been sick herself so didn't visit yesterday ?? GOC discussion described below she understands the situation and options well ?? Encounter with patient at bedside: _ Patient is not??eating or??talking at all.?? Moaned for short time.?? Opens his eyes??and stares ahead??at times.?? Does not follow any commands or answer any questions not??answering??or responding to either ?? Baseline Cognitive Function: _ Per at baseline no confusion, he was very independent, very meticulous with self-care She did assist with filling his pillbox and??there have been some issues with adherence in the past ?? Mood:??_ Longstanding history of bipolar disorder, has been off meds at times 3 inpatient admissions??since starting HD in 2019, most recently??in??May??2023 got??ESRD??related to??lithium toxicity Patient mostly taking his medications since??May,?? feels pillbox, VNA used to come See psych notes this admission Per ,??he has??catatonia before where he will get irritable, give her the silent treatment, nottalk as much??in the past Earlier this year he was missing for 24 hours and had driven off by himself ?? Balance/Gait/Falls: _ independent??but was getting weaker in general since his TAVR Fell after his TAVR, had anemia ?? Nutrition (weight gain or loss, trouble chewing or swallowing, access to food):??_ eating??was fine ?? Elimination (continence, constipation):??_ gets to bathroom? Sleep: _ ? Hearing/Vision:??_ Hearing aids Vision is very good, had cataract surgery ?? Functional Status Independent = I, needs Assistance = A, Dependent = D ?? ADL:?? Independent of all?Transfers: _?? Bathing:??_ Grooming: _?? Dressing:??_ Feeding:??_ Toileting:??_ ?? IADL:_?Housework:??_wife Medications:??_A - was setting up pillbox, vna used to come??summer Finances:??_wife always did Shopping:??_I Meal preparation: _ Transportation:??_driving [facility] last week ?? Assistance:?living with ?? Review of Systems unreliable due to delirium Physical Exam Vitals & Measurements T:??97.4?F?? TMIN:??97.3?F?? TMAX:??97.6?F?? HR:??65??(Monitored)?? RR:??18?? BP:??145/67?? SpO2:??97%?? WT:??80.5??kg?? CAM??positive ?? Gen - lethargic HEENT - anicteric sclera, not tracking or blinking with threat consistently could not find disposable stethoscope Gastrointestinal - soft, NT/ND Ext - no edema LE B/L; cool Neuro - lethargic, opened eyes briefly, not speaking or following commands, even with hearing aidesput in, no rigidity UE. oral area tremor Psy - calm Assessment/Plan Impression ??69-year-old??male with PMH including??hypertension, hyperlipidemia,??ESRD on HD Monday and Monday??only,??renal failure??related to lithium toxicity, DVT on Eliquis, A-fib,??AF status post TAVR in January 2024,??anemia,??bipolar disorder??who presented??with a cough??being treated for acute hypoxic respiratory failure secondary to HFpEF/volume overload/insufficient dialysis/RSV and superimposedbacterial pneumonia,??also found to have C. difficile colitis.?Nila consulted for delirium/goalsof care ?? MIND #Acute Metabolic encephalopathy Acute Mixed Delirium - likely multifactorial due to - age, change in environment,??delirium, hearing impairment,??bipolar disorder,??RSV, bacterial pneumonia,??C. difficile, acute hypoxic respiratory failure,??volume overload,??needing more dialysis sessions, anemia,??urinary retention,??Ramirez/lines, medications (not taking home medications consistently) etc. Patient was initially at baseline but has had??fluctuating mentation since then,??agitated, pulling??O2,??combative at times???other times refusing care, meds,??not speaking, not eating, not responding etc.?? Not getting all his home psych meds. ??Not getting??most doses of his p.o. vancomycin.?? Desaturates a lot when he pulls off his O2.?? Has received physical and chemical restraints??at times Please try non-pharmacological interventions first for delirium: - frequent reorientation/redirection/reassurance, encourage family visits/calls - adequate control of pain - monitor for urinary retention, constipation - sleep hygiene (bright light in day, dim at night, limit VS checks/interruptions at nighttime) - encourage oral hydration and nutrition - window side bed if possible - engage during the daytime, so patient sleeps more at night - out of bed to chair during the daytime, ambulate TID with assistance - 1:1 sitter if needed -??please avoid restraints as they worsen delirium -??Please avoid benzos, antihistamines, anticholinergics - No medication??will??treat the delirium, it will not resolve unless??all his medical??problems can be addressed which would include taking all his psych medications,??complete hemodialysis 3 times a week??to manage his volume, keeping his oxygen on??until it is weaned off,??taking all his C. difficile treatment?the only way to??really deliver all the tx is??restraints/sedation/NG tube which is not a dignified??long-term plan.?? Started goals of care discussion??with the . - wants to avoid restraints, understands his prognosis may be limited in this situation. ?? #bipolar disorder see psych notes defer??psych med decisions to psych team. discussed with geriatric pharmacist and hospitalist that Abilify has a liquid option that could be tried. ?? MEDICATION #Medication management defer??psych med decisions to psych team. discussed with geriatric pharmacist and hospitalist that Abilify has a liquid option that could be tried. unfortunately no medicine will make him take other meds. ?? qtc 440 ?? MOBILITY #hx fall, physical deconditioning getting weaker since tavr, had a fall, but was indep Out of bed to chair during day Mobilize as much as possible frequent T&R PT consult-cant participate due to mentation ?? MATTER MOST #Advanced Directives Health Care Proxy: sujata Code Status: dnr dni ?? #Goals of care discussion Discussed GOC with at bedside for 30 mins She had fair understanding of the medical situation, he is dealing with infections on top of his heart and kidney problems and bipolar disorder. She said that the doctor had outlined that??there are 3 options in general 1.??continue??current care??which??may not??work, she understands that we will try??IV/liquid options for the psych medication.?2.?? Treat him but this may require??restraints and may not be a good long-term solution 3.??Comfort care. She said multiple times clearly that??she does not want to force treatment upon him,??that he wouldnot want to??for her and she would not want it for him. I talked to her about??patient's multifactorial delirium???underlying bipolar disease, hearing problem, now??respiratory??failure,??heart failure, volume overload,??renal failure,??respiratory??and C. difficile infections, not eating??etc. The only way to??really??manage the delirium??is to treat all of the problems??which includes??taking all doses of his psychiatric medication,??all doses of his??vancomycin??which is 4 times daily,??keeping the oxygen on,??increasing??dialysis sessions to 3 times a week. I then explained the barriers we are facing.?? told her he got agitated and did not finish full??4 hours of??dialysis yesterday. ??Also told her he was briefly restrained and sedated overnight because he was so agitated.?She told me that??he has been getting??very tired of multiple??doctors appointments and had even talked about stopping dialysis.? his corporate event planner negotiated to reduce HD to twice a week only??as a trial .?? I asked her whether??he understood implications??of stopping??dialysis. ??She said that??he does not know the implications??of stopping dialysis,??he would tell her that??they should stop it?? just to see what happens and did not seem to grasp that it would short en??his life.?she said he is a man of raffi.?she understood??from the corporate event planner that he would live less than a month if he stopped dialysis.?? She agrees that we??cannot??make him take every??dose of medication??that he needs to take.?? I explained and she agreed it is not dignified for him to be??taking medications through??NG tube, he would likely have to be restrained,??he might even need to be restrained for dialysis which they can only do inpatient, but this is not a good long-term plan, she??fully understands that. ??She kept??repeating that she does not want treatment forced on him. I explained again the??option of??trying the??liquid Abilify and IV??psych medications but that will not solve the problem with the dialysis, volume overload,??not eating??etc. I asked if he ever told her his wishes about CPR and machines. She said they talked about it and they??do??not want resuscitation or machines. she said he understands when it is his time, he will go to [facility]. I said that if he does not??improve??in the next few days,??she may have to make a decision??about comfort care. said that his??sister??is coming to visit tomorrow morning. ??She is going to make some phone calls.?? His commercial escrow officer??could visit. ??She said that spiritual services had visited earlier.?? She seems to have??a good understanding of the current situation. She describes patient??as a man of God,??believes in [facility],??knows he will go to [facility]??if he passes away. ??She??describes him as her best friend??and wonders how she would cope without him. They do not have children. -ongoing GOC discussion will be needed -please call if he is worsening clinically and discuss BUILDING OFFICIAL ?? #Discharge Planning - Please f/u case management for placement and arranging services.? Thank you for referral, please page Geriatrics Inpatient Consult Service if we can provide further assistance in patient care. ?? Meghna Cortés MD Geriatrics Attending Pager # [phone] / [facility] Problem List/Past Medical History Ongoing Acute systolic congestive heart failure Atrial fibrillation Bipolar 1 disorder DVT (deep venous thrombosis) ESRD on hemodialysis Hypertension Severe aortic stenosis Procedure/Surgical History ???AV - Arteriovenous fistula???Fistulogram Medications Inpatient Acetaminophen Tablet, 650 mg, By Mouth, Every 4 hours, PRN Afrin Nasal, 1 sprays, Nares, Both, 2 times a day apixaban, 2.5 mg, By Mouth, 2 times a day Aripiprazole Oral Solution, 25 mg= 25 mL, By Mouth, Daily benztropine 1 mg oral tablet, 1 mg, By Mouth, 2 times a day calcitriol 0.25 mcg oral capsule, 1.25 mcg, By Mouth, Every Monday calcitriol 0.25 mcg oral capsule, 1.25 mcg, By Mouth, Every Monday Depacon IVPB Docusate Sodium Capsule, 100 mg= 1 capsule, By Mouth, 2 times a day, PRN Haldol LACTATE Inj, 2.5 mg= 0.5 mL, Intramuscular, 2 times a day Lasix Inj, 80 mg= 8 mL, IV Push Slowly, Daily Lokelma Packet, 5 Gm= 1 pack/packet, By Mouth, Once Melatonin Tablet, 3 mg, By Mouth, Daily at bedtime metoprolol 25 mg oral tablet, extended release, 25 mg, By Mouth, 2 times a day MiraLax Powder, 17 Gm= 1 pack/packet, By Mouth, Daily, PRN Multivitamin Tablet, 1 tablet, By Mouth, Daily NaCL 0.9% Flush, 3 mL, IV Push, Every 8 hours NaCL 0.9% Flush, 3 mL, IV Push, Every 8 hours, PRN Robitussin DM Liquid, 10 mL, By Mouth, Every 4 hours, PRN Salinex Lang[place], 1 sprays, Nares, Both, 4 times a day, PRN Senna Tablet, 8.6 mg= 1 tablet, By Mouth, 2 times a day, PRN sevelamer carbonate 800 mg oral tablet, 1600 mg, By Mouth, 3 times a day with meals Simethicone Tablet, 80 mg, Chew, 3 times a day, PRN Thiamine Inj, 100 mg= 1 mL, IV Push Slowly, Daily thiothixene 5mg capsules, 15 mg, By Mouth, Daily Vancomycin Suspension, 125 mg= 5 mL, By Mouth, 4 times a day Home acetaminophen 325 mg oral tablet, 650 mg, By Mouth, Every 8 hours, PRN apixaban 2.5 mg oral tablet, 2.5 mg= 1 tablet, By Mouth, 2 times a day ARIPiprazole 20 mg oral tablet, 20 mg= 1 tablet, By Mouth, Daily ARIPiprazole 5 mg oral tablet, 5 mg= 1 tablet, By Mouth, Daily aspirin 81 mg oral tablet, 81 mg= 1 tablet, By Mouth, Daily benztropine 1 mg oral tablet, 1 mg= 1 tablet, By Mouth, 2 times a day Compression Stockings, See Instructions divalproex sodium 500 mg oral tablet, extended release, 1000 mg= 2 tablet, By Mouth, Daily at bedtime metoprolol 25 mg oral tablet, 25 mg, By Mouth, 2 times a day sevelamer carbonate 800 mg oral tablet, 800 mg= 1 tablet, By Mouth, 3 times a day with meals thiothixene 5 mg oral capsule, 15 mg= 3 capsule, By Mouth, Daily Triphrocaps oral capsule, 1 capsule, By Mouth, Daily Allergies No Known Medication Allergies Social History Alcohol Use: Past. Substance Abuse Use: Never. Tobacco Use: Never (less than 100 in lifetime). lives with no children Family History CAD - Coronary artery disease: Mother. Cancer - unknown origin: Father. Immunizations Vaccine Date Status SARS-CoV-2 (COVID-19) mRNA-1272 vaccine 06/24/2020 Recorded SARS-CoV-2 (COVID-19) mRNA-1273 vaccine 05/13/2020 Recorded Lab Results Event Name?? Event Result?? Date/Time?? Abs. NRBC 0 k/mm3 04/02/24 AG Ratio 1.5 04/01/24 Albumin 3.5 Gm/dL 04/01/24 Alkaline Phosphatase 55 units/L 04/01/24 ALT (SGPT) 9 units/L 04/01/24 Ammonia, Venous 17 ??mole/L 03/31/24 Anion Gap 17 04/02/24 AST (SGOT) 16 units/L 04/01/24 Bicarbonate Level 24 mmol/L 04/02/24 Bilirubin, Direct HEMOLYZED 03/31/24 Bilirubin, Indirect Unable to calculate 03/31/24 Bilirubin, Total 0.2 mg/dL 04/01/24 BUN 44 mg/dL??High 04/02/24 C. Difficile Toxin by PCR POSITIVE Abnormal 03/31/24 C.difficile Toxin INDETERMINATE Abnormal 03/31/24 Calcium 9.6 mg/dL 04/02/24 Chloride 96 mmol/L??Low 04/02/24 Creatinine-Blood 7.03 mg/dL??High 04/02/24 Est Creatinine Clearance 10.59 mL/min 04/02/24 Estimated GFR Creatinine 8 ML/MIN/1.73 M2 04/02/24 Glucose Level 80 mg/dL 04/02/24 Hct 25.8 %??Low 04/02/24 Hgb 8.4 Gm/dL??Low 04/02/24 Magnesium 2.7 mg/dL??High 04/01/24 MCH 32.1 pg 04/02/24 MCHC 32.6 Gm/dL??Low 04/02/24 MCV 98.5 femtoliters??High 04/02/24 MPV 10.8 femtoliters 04/02/24 Nt-Probnp 24200 pg/mL??High 03/31/24 Nucleated RBC (Automated) 0 #/100 WBC'S 04/02/24 Phosphorus 6.6 mg/dL??High 04/02/24 Platelet Count 88 k/mm3??Low 04/02/24 Potassium 3.9 mmol/L 04/02/24 Procalcitonin 1.68 ng/mL 03/31/24 Protein, Total 5.9 Gm/dL??Low 04/01/24 RBC 2.62 m/mm3??Low 04/02/24 RDW-SD 58.4 femtoliters??High 04/02/24 Sodium 137 mmol/L 04/02/24 WBC 4.3 k/mm3 04/02/24 ? Diagnostic Results 03/30/2024 11:47 EST MRI Brain W/O Contrast ??The ventricles and sulci are globally prominent reflecting volume loss.? 1. No acute/subacute infarct, mass, evidence of acute hemorrhage, or other acute intracranial abnormality.?? 2. Areas of old hemorrhage are demonstrated in the superior left parietal lobe. * Sary BARAKAT, Maximino Torres: PERFORM, MODIFY Event Display: Consultation Note Authored Date: Patient: ??TONO HERZOG ? Age:??69 Years?Sex:??Male?:??1955?? History of Present Illness/Interval History 69-year-old history of end-stage renal disease on hemodialysis.?? Severe aortic stenosis EF 45 to 50% paroxysmal A-fib on Eliquis status post TAVR in January 2024 with the evolute fracture valve.?? Postprocedure there was a mild perivalvular leak the valve was postdilated that there is still some pe rivalvular leak at the end with a mean gradient 9 mmHg.?? Patient was discharged post valve placement the patient became anemic was transfused and given iron. ?? Patient presented to emergency room 25 March with complaints of a productive cough of yellow sputum.?? His chest x-ray showed evidence of CHF.?? He was positive for RSV.?? He was uncertain as to whether his volume overload was secondary to the end-stage renal disease or an issue with his aortic TAVR. ?? The patient was treated conservatively ?? The patient suffered an episode of unresponsiveness following hemodialysis and an FRONT OFFICE AGENT was called.??This occurred on 29 March.?? He has had neuroimaging with no abnormal findings identified. ?? 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 Patient has been on 80 mg of IV Lasix once a day since admission..?? His EKG on admission showed sinus rhythm with no dynamic changes ?? He has a substantial anemia with hemoglobins as low as 8.?? And creatinines above 9.?? He also has a substantial decrease in his renal function..?? Diagnostic cath prior to his TAVR showed no obstructive coronary disease.?? Portable chest x-ray on 30 March showed possible cephalization of vasculature ? Patient is unable to provide any history whatsoever.?? Denies chest pain denies shortness of breath. Review of Systems Patient is unable to provide any particular history at this time??due to altered mental status Physical Exam Vitals & Measurements T:??97.8?F?? HR:??62??(Peripheral)?? RR:??21?? BP:??153/91?? SpO2:??91%?? HT:??183??cm?? WT:??83.5??kg?? BMI:??26.4?? Weight lb/oz: 184 lb 1 oz Pupils are equal Mild JVD No carotid bruits No chest wall pain Lungs diminished breath sounds no rales Cardiac exam regular rhythm with a 1/6 left foot drop murmur consistent with aortic valve replacement Evidence obese and soft Extremities have no edema Mood??variable Intake and Output Today's Intake Total? 50?? Today's Output Total?475?? Today's Urine Catheter?475?? Today's Balance? -425?? Yesterday's Intake Total?970?? Yesterday's Balance?970?? Clinical Range's Intake Total? 1686?? Clinical Range's Output Total? 9475?? Clinical Range's Total Dialysis Negative Balance? 8400?? Clinical Range's Total Urine Catheter? 1075?? Clinical Range's Balance ?-3389?? Assessment/Plan A-fib Patient is presently rate controlled and anticoagulated Acute delirium Acute respiratory failure with hypoxia Anemia, macrocytic Anxiety and depression DVT (deep venous thrombosis) ESRD (end stage renal disease) on dialysis H/O aortic valve stenosis HLD (hyperlipidemia) HTN (hypertension) Hyperkalemia Lymphopenia Pneumonia RSV infection S/P TAVR (transcatheter aortic valve replacement) SOB (shortness of breath) on exertion Patient with mild congestive heart failure on exam.?? The patient's not had a post??TAVR echo done in our office or elsewhere.?? Will repeat an echocardiogram to reassess the TAVR valve and any LV systolic dysfunction that may exist.?? Patient is on Lasix for diuresis at this point??and no other new recommendations to be made at this time.?? Will reassess after the echocardiogram Thrombocytopenia Volume overload Allergies No Known Medication Allergies Home Medications Acetaminophen: 650 mg, By Mouth, Every 8 hours, PRN (Pain , Mild) apixaban: 2.5 mg = 1 tablet, By Mouth, 2 times a day Aripiprazole: 5 mg = 1 tablet, By Mouth, Daily Aripiprazole: 20 mg = 1 tablet, By Mouth, Daily Aspirin: 81 mg = 1 tablet, By Mouth, Daily Benztropine: 1 mg = 1 tablet, By Mouth, 2 times a day, Tremors Divalproex Sodium: 1,000 mg = 2 tablet, By Mouth, Daily at bedtime Durable Medical Equipment: See Instructions, surgical, calf length 30-40 mm Hg Metoprolol: 25 mg, By Mouth, 2 times a day Multivitamin: 1 capsule, By Mouth, Daily Sevelamer: 800 mg = 1 tablet, By Mouth, 3 times a day with meals Thiothixene: 15 mg = 3 capsule, By Mouth, Daily Hospital Medications Medications (26) Active SCHEDULED: (17) Apixaban 2.5 mg Tablet (apixaban) ??2.5 mg, By Mouth, 2 times a day Aripiprazole 10mg Tablet (ARIPiprazole 10 mg oral tablet) ??20 mg, By Mouth, Daily Aripiprazole 5 mg Tablet (ARIPiprazole 5 mg oral tablet) ??5 mg, By Mouth, Daily Benztropine 1 mg Tablet (benztropine 1 mg oral tablet) ??1 mg, By Mouth, 2 times a day Calcitriol 0.25 mcg Capsule (calcitriol 0.25 mcg oral capsule) ??1.25 mcg, By Mouth, Every Monday Calcitriol 0.25 mcg Capsule (calcitriol 0.25 mcg oral capsule) ??1.25 mcg, By Mouth, Every Monday Ceftriaxone 1 Gm Inj (Ceftriaxone IVPB) ??1 Gm, IVPB, Every 24 hours Doxycycline 100 mg Inj (Doxycycline IVPB) ??100 mg, IVPB, Every 12 hours Furosemide Inj (Lasix ??Inj) ??80 mg 8 mL, IV Push Slowly, Daily Metoprolol 25 mg XL Tablet (metoprolol 25 mg oral tablet, extended release) ??25 mg, By Mouth, 2 times a day NaCl 0.9% Flush 3ml (NaCL 0.9% Flush) ??3 mL, IV Push, Every 8 hours Oxymetazoline 0.05% Nasal Langford (Afrin Nasal) ??1 sprays, Nares, Both, 2 times a day Sevelamer Carbonate 800 mg Tablet (sevelamer carbonate 800 mg oral tablet) ??1,600 mg, By Mouth, 3 times a day with meals Sodium Zirconium 5 Gm Packet (Lokelma Packet) ??5 Gm 1 pack/packet, By Mouth, Once Thiamine 100 mg Inj (Thiamine Inj) ??100 mg 1 mL, IV Push Slowly, Daily thiothixene 5mg capsules ??15 mg, By Mouth, Daily Valproic Acid Sodium 500 mg IVPB (Depacon IVPB) ??500 mg 5 mL, IVPB, Every 8 hours CONTINUOUS: (0) PRN: (9) Acetaminophen 325 mg Tablet (Acetaminophen Tablet) ??650 mg, By Mouth, Every 4 hours Dextromethorphan-Guaifenesin 20 mg-200 mg/10 mL Liqu UD (Robitussin DM Liquid) ??10 mL, By Mouth, Every 4 hours Docusate Sodium 100 mg Capsule (Docusate Sodium Capsule) ??100 mg 1 capsule, By Mouth, 2 times a day Melatonin 3 mg Tablet (Melatonin Tablet) ??3 mg, By Mouth, Daily at bedtime NaCl 0.9% Flush 3ml (NaCL 0.9% Flush) ??3 mL, IV Push, Every 8 hours Polyethylene Glycol 17 Gm Powder (MiraLax Powder) ??17 Gm 1 pack/packet, By Mouth, Daily Senna Tablet ??8.6 mg 1 tablet, By Mouth, 2 times a day Simethicone 80 mg Chewable Tablet (Simethicone Tablet) ??80 mg, Chew, 3 times a day Sodium Chloride 0.65% Nasal Langford (Salinex Langford) ??1 sprays, Nares, Both, 4 times a day Lab Results Cardiology Labs WBC:??3.6 k/mm3??Low (03/31/24) RBC:??2.48 m/mm3??Low (03/31/24) Hgb:??8 Gm/dL??Low (03/31/24) Hct:??24.5 %??Low (03/31/24) MCV:??98.8 femtoliters??High (03/31/24) MCH: 32.3 pg (03/31/24) MCHC:??32.7 Gm/dL??Low (03/31/24) Platelet Count:??78 k/mm3??Low (03/31/24) RDW-SD:??59.5 femtoliters??High (03/31/24) Nucleated RBC (Automated): 0 #/100 WBC'S (03/31/24) Abs. Neut: 2 k/mm3 (03/30/24) Abs. Lymph:??0.7 k/mm3??Low (03/30/24) Abs. [place]: 0.6 k/mm3 (03/30/24) Abs. Eo: 0.1 k/mm3 (03/30/24) Abs. Baso: 0 k/mm3 (03/30/24) Neut %: 59.7 % (03/30/24) [place] %:??16.9 %??High (03/30/24) Eos %: 2.7 % (03/30/24) Baso %: 0.3 % (03/30/24) Imm Gran: 0.9 % (03/30/24) Abs. Imm Gran: 0 k/mm3 (03/30/24) INR: 1 (02/09/24) Protime (PT): 10.4 seconds (02/09/24) APTT: 24.2 seconds (02/09/24) Sodium: 137 mmol/L (03/31/24) Potassium: 4.5 mmol/L (03/31/24) Chloride:??93 mmol/L??Low (03/31/24) Bicarbonate Level: 23 mmol/L (03/31/24) Glucose Level: 73 mg/dL (03/31/24) Hemoglobin A1C (Monitoring): 4.5 % (03/29/24) BUN:??75 mg/dL??High (03/31/24) Creatinine-Blood:??9.81 mg/dL??High (03/31/24) Calcium: 9.7 mg/dL (03/31/24) Protein, Total:??5.8 Gm/dL??Low (03/31/24) Albumin:??3.3 Gm/dL??Low (03/31/24) Alkaline Phosphatase: 53 units/L (03/31/24) AST (SGOT): 22 units/L (03/31/24) ALT (SGPT): 10 units/L (03/31/24) Bilirubin, Total: 0.2 mg/dL (03/31/24) Nt-Probnp:??84114 pg/mL??High (03/31/24) Cholesterol: 131 mg/dL (03/30/24) Triglycerides: 144 mg/dL (03/30/24) HDL Cholesterol: 43 mg/dL (03/30/24) LDL Cholesterol: 59 mg/dL (03/30/24) Non HDL Cholesterol: 88 mg/dL (03/30/24) TSH: 1.15 uIU/mL (03/29/24) Diagnostic Impression CT CT TAVR Angio Chest ?? 12:07:04 IMPRESSION: ?? Aortic valve annular dimensions, areas and perimeters, and coronary ostial distances as above. ?? Moderate size bilateral pleural effusion. ?? Enlarged main pulmonary artery suggests pulmonary hypertension. ?? Biatrial enlargement. ?? Severe coronary artery calcification. ? WSN: [id number] ? Ordering Physician: Juanito Denny ?? Signed By: Court Ramos MD CT TAVR Heart ?? 12:07:04 IMPRESSION: ?? Aortic valve annular dimensions, areas and perimeters, and coronary ostial distances as above. ?? Moderate size bilateral pleural effusion. ?? Enlarged main pulmonary artery suggests pulmonary hypertension. ?? Biatrial enlargement. ?? Severe coronary artery calcification. ? WSN: [id number] ? Ordering Physician: Juanito Denny ?? Signed By: Court Ramos MD ECG ECG 12-Lead ?? 11:38:13 Please click on pdf link to open report ?? Signed By: Hal Fenton MD ?? ECG 12-Lead ?? 11:38:13 Ventricular Rate: 66 BPM Atrial Rate: 66 BPM P-R Interval: 172 ms QRS Duration: 88 ms Q-T Interval: 420 ms QTC Calculation(Bazett): 440 ms P [place]: 38 degrees R [place]: 17 degrees T [place]: 40 degrees Normal sinus rhythm Normal ECG When compared with ECG of 24-Jan-2024 16:45, No significant change was found Confirmed by ANDRZEJ FENTON MD ([id number]) on 03/25/2024 8:08:14 PM ?? [place]: ANDRZEJ FENTON MD ?? Signed By: Hal Fenton MD Echo Echocardiogram - Complete ?? 10:31:58 Summary Technically difficult study. The left ventricular size is normal. The left ventricular wall thickness is mildly increased. The left ventricle is normal in size and wall thickness. Overall left ventricular systolic function is normal. LVEF visually estimated at 55-60%. Abnormal septal motion consistent with conduction abnormality. Unable to assess diastolic function. Right ventricular size and systolic function appear grossly normal. The left atrium is dilated. There is a bioprosthetic (26 mm EP AMADOU) valve in the aortic position. There is mild paravalvular aortic regurgitation. No hemodynamically significant (worse than mild) chinik valve dysfunction. Normal CVP estimate. Unable to estimate PASP. ?? Comparison Comparison is made to the study of January 08, 2024. Images inadequate for serial comparison. ?? Signature ?? Signed By: Orlando Jane MD Cardiac Cath Procedure Cardiac Cath Procedure ?? 12:41:21 Conclusions ?? Diagnostic Summary Moderate distal RCA stenosis Aortic valve not crossed due to known severe aortic stenosis Right femoral artery hemostatic with a Perclose device ?? Diagnostic Recommendations Coronary angiography does not demonstrate evidence of severe CAD; continue evaluation for aortic valve replacement for severe aortic stenosis favoring TAVR due to comorbidities ?? ACC Diagnostic Recommendations: Other cardiac therapy without CABG or PCI. ?? Complications:None. ?? Signatures ?? Signed By: Joe Garcia MD Problem List/Past Medical History Ongoing Acute systolic congestive heart failure Atrial fibrillation Bipolar 1 disorder DVT (deep venous thrombosis) ESRD on hemodialysis Hypertension Severe aortic stenosis Procedure/Surgical History Fistulogram AV - Arteriovenous fistula Social History Alcohol Use: Past. Substance Abuse Use: Never. Tobacco Use: Never (less than 100 in lifetime). Family History Mother: CAD - Coronary artery disease Father: Cancer - unknown origin Note * Denise PENN, David: PERFORM Event Display: Discharge/Transfer Note Hospital Authored Date: [id number] Nursing Discharge Note Entered On: 04/18/2024 18:41 EST Performed On: 04/18/2024 18:38 EST by David Walker RN Nursing Discharge Note 2 Discharge Time : 04/18/2024 18:39 EST Discharge Level of Care at Discharge : detention facility Discharge Nursing Homes/Rehab Facilities : [facility] Patient Left Unit Via : Ambulance Patient Accompanied Off Unit with : Ambulance/Chair Van Personnel Handover Given to Transport Personnel : Yes DC Instructions Provided & Signed by Pt : Yes Patient Understands D/C Instructions : Yes Patient Instructions Discharge Signed : Yes Did Pt have Specialty Bed or Wound Vac : No David Walker RN - 04/18/2024 18:38 EST * Joey Chavez MD: PERFORM Event Display: Discharge/Transfer Note Hospital Authored Date: [id number] Patient: ??TONO HERZOG ? Age:??69 Years?Sex:??Male?:??1955?? Patient Information Discharge Location: S1 Primary Care Physician: Brooke Morales Admit Date/Time: 03/25/2024 20:10 Discharge Disposition Discharge Disposition: [facility] Facility/Rehab Discharge Diagnosis RSV infection (B33.8) HTN (hypertension) (I10) HLD (hyperlipidemia) (E78.5) ESRD (end stage renal disease) on dialysis (N18.6) DVT (deep venous thrombosis) (I82.409) A-fib (I48.91) H/O aortic valve stenosis (Z86.79) S/P TAVR (transcatheter aortic valve replacement) (Z95.2) Anemia, macrocytic (D53.9) Thrombocytopenia (D69.6) Lymphopenia (D72.810) Hyperkalemia (E87.5) Pneumonia (J18.9) Acute respiratory failure with hypoxia (J96.01) Volume overload (E87.70) SOB (shortness of breath) on exertion (R06.02) Anxiety and depression (F41.9) Acute delirium (R41.0) C. 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) Bipolar disorder (F31.9) Colitis, Clostridium difficile (A04.72) Hematochezia (K92.1) _ Discharge Medications Acetaminophen (acetaminophen 325 mg oral tablet)?650?Milligram?By Mouth?Every 8 hours?as needed?Pain , Mild apixaban (apixaban 2.5 mg oral tablet)?1?tab(s)?2.5?Milligram?By Mouth?2 times a day Aripiprazole (ARIPiprazole 5 mg oral tablet)?5?Milligram?1?tablet?By Mouth?Daily Aripiprazole (ARIPiprazole 20 mg oral tablet)?1?tab(s)?20?Milligram?By Mouth?Daily Aspirin (aspirin 81 mg oral tablet)?1?tab(s)?81?Milligram?By Mouth?Daily Benztropine (benztropine 1 mg oral tablet)?1?Milligram?1?tablet?By Mouth?2 times a day?Tremors Calcitriol (calcitriol 0.25 mcg oral capsule)?1?Microgram?By Mouth?Every Monday, Monday and Monday?for 30?Days Divalproex Sodium (divalproex sodium 500 mg oral enteric coated tablet)?500?Milligram?By Mouth?3 times a day?for 30?Days?takes 500mg three times plus 500mg at bedtime ordered separately Divalproex Sodium (divalproex sodium 500 mg oral enteric coated tablet)?500?Milligram?By Mouth?Daily at bedtime?for 30?Days Durable Medical Equipment (Compression Stockings)?See Instructions?surgical, calf length 30-40 mm Hg Metoprolol (metoprolol 25 mg oral tablet)?25?Milligram?By Mouth?2 times a day?for 30?Days Multivitamin (Triphrocaps oral capsule)?1?capsule?By Mouth?Daily Sevelamer (sevelamer carbonate 800 mg oral tablet)?1,600?Milligram?By Mouth?3 times a day with meals?for 30?Days Thiamine (thiamine 100 mg oral tablet)?100?Milligram?By Mouth?Daily?for 30?Days Thiothixene (thiothixene 5 mg oral capsule)?1?capsule?5?Milligram?By Mouth?2 times a day?3?15?Daily torsemide (torsemide 100 mg oral tablet)?1?tab(s)?100?Milligram?By Mouth?Every Monday, and Monday Vancomycin (vancomycin 125 mg oral capsule)?125?Milligram?By Mouth?4 times a day?for4?Days?Doses over 125 mg require ID consult. Indication for Use: C. difficile colitis ? Vaccinations and Immunoprophylaxis SARS-CoV-2 (COVID-19) mRNA-1273 vaccine: 0 Unknown (06/24/20 00:00:00) SARS-CoV-2 (COVID-19) mRNA-1273 vaccine: 0 Unknown (05/13/20 00:00:00) ? Medications Started Vancomycin 125 mg Q6hrs for 4 more days Medications Discontinued none Doses Changed Vaploric acid , Sevelamer Allergies Allergies ?(Active and Proposed Allergies Only) No Known Medication Allergies? (Severity: Unknown severity, Onset: Unknown) ? PCP Follow-Up/Heads-Up You need to check your CBC CMP??on dialysis Hospital Course ?69 y/o ld male with PMH including HTN, HLD, ESRD on HD MWF, DVT on Eliquis, A-fib, history of severe aortic stenosis s/p TAVR (Dr Denny, 01/08/2024), anemia, thrombocytopenia, bipolar, benign tremors.??Patient presented to [facility] ER with cough,??he??was found to have??AHRF in the setting of RSV??and also received??empiric treatment for superimposed bacterial pneumonia.??On 03/29 patientwith unresponsive episode, FRONT OFFICE AGENT was called??and??urgent??Neurological consult obtained.??Extensive neuro imaging has been performed??on 03/29 and 03/30??(CT, CTA, MRI)??all of which unrevealing.??Psychiatry was also consulted given 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 He has improved , PT evaluated and recommend??rehab. Discharging rehab to repeat CBC and CMP??during dialysis. ?? 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 Per Staff Genetic Counselor he has had similar episodes at outpatient HD requiring Psych consultation Ruled out for stroke or acute hemorrhage??by neuroimaging??(CT/CTA/MRI) Neurology recommending for??EEG??which was negative for seizure Psychiatry evaluation appreciated Geriatrics??evaluated on valproic acid 500mg TID and 500mg at bedtime Multiple GOC discussions have been held by previous providers, outlying??current hospitalization and the??challenges??that are being placed at this time??given his multiple comorbidities??and??underlying psychiatric illness??causing??the altered mental status. Now on this regimen: Abilify 25mg daily po, home??thiothixene and Depakote PO 500/500/1000 ? Acute respiratory failure with hypoxia (J96.01):??- RSV infection (B33.8):??- Pneumonia (J18.9):??- Lymphopenia (D72.810):??- Volume overload (E87.70):??- SOB (shortness of breath) on exertion (R06.02):??- H/O aortic valve stenosis (Z86.79):??- S/P TAVR (transcatheter aortic valve replacement) (Z95.2):??- Patient presented with 7 days of??cough??with sputum production,??positive for RSV, chest x-ray also concerning for??possible atelectasis versus pneumonia. ??history of aortic stenosis and recent TAVR. Seen by Dr. Okeefe 03/31 who recommends for echo??which was performed 04/01??and appears approximately stable,??showing dilated left ventricle Isolation has been discontinued PO torsemide on non-HD days?? HD MWF ?C. difficile diarrhea Hematochezia Patient was developed multiple episodes of diarrhea??while on empiric??antibiotics He was checked for C. difficile and is positive, ON po vanc to continue 4 more days? ESRD (end stage renal disease) on dialysis (N18.6):?? Nephrology aware, dialysis as per schedule. was receiving twice only as?? due to non compliance HD MWF??schedule ?? Acute urinary retention passing urine normally ?? Hyperkalemia (E87.5):??Due to??renal failure.?Was given Lokelma. CTM, HD and Lokelma??as needed No hyperkalemia now ?? HTN (hypertension) (I10):??Continue metoprolol.?? But not compliant ?? A-fib (I48.91):??Eliquis ?? DVT (deep venous thrombosis) (I82.409):??Apixaban? Anemia, macrocytic (D53.9):??At baseline, monitor. ?? Thrombocytopenia (D69.6):??At baseline, monitor. ?? Discharge Planning/???PT evaluation??recommend??rehab, ?? I discussed plan of care with the patient at bedside and??with??healthcare proxy on phone.?? Both verbalized understanding and agrees to it. ?? Objective Assessment and Plan Discharge Planning:? Measurements?? Height: 183 cm (04/18/24) Weight: 80.63 kg (04/11/24) Dry Weight: 95.5 kg (03/25/24) Body Mass Index:??26.4 kg/m2??High (03/29/24) ? Vital Signs?? Temperature: 98 DegF (04/18/24 08:47:00) Temperature Route: Oral (04/18/24 08:47:00) Pulse Rate: 55 bpm (04/18/24 11:19:00) Respiratory Rate: 18 br/min (04/18/24 08:47:00) Systolic Blood Pressure: 115 mm Hg (04/18/24 11:19:00) Diastolic Blood Pressure: 60 mm Hg (04/18/24 11:19:00) Blood pressure sites: Arm, right (04/18/24 08:47:00) Mean Arterial Pressure: 86 mm Hg (04/18/24 08:47:00) Pulse Pressure: 50 mm Hg (04/18/24 08:47:00) Oxygen Saturation: 94 % (04/18/24 08:47:00) Mode of Delivery (Oxygen): Room air (04/18/24 08:47:00) Early Warning Score: 9 (04/18/24 11:27:45) ? . Physical Exam ??General: Lying in bed. Afebrile. NAD. ?Eye: Normal conjunctiva ?HEENT: Normocephalic ?Neck: Supple ?Resp: Nonlabored respirations, CTA, BS+, Equal B/L ?CVS: Normal rate, RRR, No R/M/G, no edema ?GI: Soft, ND, NT. ?Integumentary: Warm, Dry Pending Results Add On Lab Order ordered on 03/29/2024 Add On Lab Order ordered on 04/02/2024 Add On Lab Order ordered on 04/10/2024 Add On Lab Order ordered on 04/15/2024 Add On Lab Order ordered on 04/16/2024 Add On Lab Order ordered on 04/18/2024 Hepatitis B Surface Antigen ordered on 04/17/2024 Follow-Up Appointments Added Follow Up ?Time Frame ?Comments Brooke Meza Patient Instructions You were initially admitted for cough You had a complicated hospital stay with a viral pneumonia,??C. difficile You are evaluated by psychiatrist and geriatrics, medication has been changed as reconciled, you need to follow-up with psychiatry outpatient and geriatric outpatient, call to make appointment I will continue??vancomycin??125 mg??every??6 hours for 4 more days to complete??treatment, you do not need to be on isolation Valproic acid??frequency and dose has been changed, you will take??500 mg??3 times an additional 500 mg at night. You will take torsemide??100 mg daily on nondialysis day Kidney??doctors are following you, you need to repeat your??CBC CMP??on your dialysis day??and might need transfusion while on dialysis or Epogen based on??renal recommendation. We are sending you to a rehab Home Health Face to Face ^[facility] Results Discharge Labs BACTERIOLOGY MRSA PCR Result Negative, MRSA target DNA not detected. ()?? 03/26/2024 02:50 S Aureus ??PCR Result Negative, SA target DNA not detected. ()?? 03/26/2024 02:50 Blood Culture Results Final report ()?? 03/29/2024 16:55 Blood Culture Specimen Source BLOOD ()?? 03/29/2024 16:55 Blood Culture Isolate 1 Comment ()?? 03/29/2024 16:55 Sputum Culture Specimen Source EXPECTORATED SPUTUM ()?? 03/26/2024 04:50 Sputum Cult Epithelial Cells Few ()?? 03/26/2024 04:50 Gram Stain Evaluation Comment ()?? 03/26/2024 04:50 Sputum Gram Stain Result 1 Comment ()?? 03/26/2024 04:50 Sputum Culture Isolate 1 Comment ()?? 03/26/2024 04:50 White Blood Cells None seen ()?? 03/26/2024 04:50 Blood Cult 2 Results Final report ()?? 03/29/2024 16:55 Blood Culture 2 Specimen Source BLOOD ()?? 03/29/2024 16:55 Blood Culture 2 Isolate 1 Comment ()?? 03/29/2024 16:55 Sputum Culture Status Final report ()?? 03/26/2024 04:50 ? BLOOD BANK Blood Type A Positive ()?? 04/15/2024 08:23 Antibody Screen Negative ()?? 04/15/2024 08:23 RBC Unit ID [id number] ()?? 04/15/2024 09:29 RBC Available RE ()?? 04/15/2024 09:29 ?? BLOOD COUNT & DIFF WBC 3.5 k/mm3 (Low)?? 04/17/2024 02:55 RBC 2.29 m/mm3 (Low)?? 04/17/2024 02:55 Hgb 7.1 Gm/dL (Low)?? 04/18/2024 07:32 Hct 21.5 % (Low)?? 04/18/2024 07:32 MCV 97.4 femtoliters (High)?? 04/17/2024 02:55 MCH 32.8 pg ()?? 04/17/2024 02:55 MCHC 33.6 Gm/dL ()?? 04/17/2024 02:55 Platelet Count 86 k/mm3 (Low)?? 04/17/2024 02:55 RDW-SD 53.9 femtoliters (High)?? 04/17/2024 02:55 MPV 12.1 femtoliters ()?? 04/17/2024 02:55 Nucleated RBC (Automated) 0.0 #/100 WBC'S ()?? 04/17/2024 02:55 Abs. NRBC 0.0 k/mm3 ()?? 04/17/2024 02:55 Abs. Neut 2.0 k/mm3 ()?? 03/30/2024 04:48 Abs. Lymph 0.7 k/mm3 (Low)?? 03/30/2024 04:48 Abs. [place] 0.6 k/mm3 ()?? 03/30/2024 04:48 Abs. Eo 0.1 k/mm3 ()?? 03/30/2024 04:48 Abs. Baso 0.0 k/mm3 ()?? 03/30/2024 04:48 Neut % 59.7 % ()?? 03/30/2024 04:48 Lymph % 19.5 % ()?? 03/30/2024 04:48 [place] % 16.9 % (High)?? 03/30/2024 04:48 Eos % 2.7 % ()?? 03/30/2024 04:48 Baso % 0.3 % ()?? 03/30/2024 04:48 Hemoglobin (POC) POC Cartridge 9.9 Gm/dL (Low)?? 03/29/2024 13:53 Hematocrit (POC) POC Cartridge 29 % (Low)?? 03/29/2024 13:53 Imm Gran 0.9 % ()?? 03/30/2024 04:48 Abs. Imm Gran 0.0 k/mm3 ()?? 03/30/2024 04:48 ?? BLOOD GAS pH (POC) POC Cartridge 7.40 ()?? 03/29/2024 13:53 pCO2 (POC) POC Cartridge 44.1 mm Hg ()?? 03/29/2024 13:53 pO2 (POC) POC Cartridge 74 mm Hg ()?? 03/29/2024 13:53 Estimated Bicarbonate (POC) POC Cart 27.0 mmol/L ()?? 03/29/2024 13:53 % O2 Sat Arterial (POC) POC Cartridge 94 % (Low)?? 03/29/2024 13:53 FIO2 (POC) POC Cartridge 38 % ()?? 03/29/2024 13:53 Base Excess (POC) POC Cartridge 2 ()?? 03/29/2024 13:53 pH 7.36 ()?? 03/29/2024 14:16 pCO2 48 mm Hg (High)?? 03/29/2024 14:16 pO2 78 mm Hg ()?? 03/29/2024 14:16 Bicarbonate, Estimated 26 mmol/L ()?? 03/29/2024 14:16 Specimen Type - Blood Gas ARTERIAL ()?? 03/29/2024 14:16 Percent O2 (FIO2) 32 ()?? 03/29/2024 14:16 ? CARDIAC Nt-Probnp 46106 pg/mL (High)?? 03/31/2024 07:47 ? CHEM GENERAL Sodium 132 mmol/L (Low)?? 04/18/2024 07:33 Potassium 4.3 mmol/L ()?? 04/18/2024 07:33 Chloride 93 mmol/L (Low)?? 04/18/2024 07:33 Bicarbonate Level 29 mmol/L ()?? 04/18/2024 07:33 Anion Gap 10 ()?? 04/18/2024 07:33 Sodium (POC) POC Cartridge 135 mmol/L ()?? 03/29/2024 13:53 Potassium (POC) POC Cartridge 3.7 mmol/L ()?? 03/29/2024 13:53 Glucose Level 70 mg/dL ()?? 04/18/2024 07:33 Glucose (POC) POC Cartridge 89 ()?? 03/29/2024 13:53 Glucose, POC 71 mg/dL ()?? 04/03/2024 02:57 Hemoglobin A1C (Monitoring) 4.5 % ()?? 03/29/2024 14:40 BUN 23 mg/dL ()?? 04/18/2024 07:33 Creatinine-Blood 5.54 mg/dL (High)?? 04/18/2024 07:33 Estimated GFR Creatinine 10 ML/MIN/1.73 M2 ()?? 04/18/2024 07:33 Osmolality 262 mOs/kg (Low)?? 04/16/2024 08:52 Calcium 9.9 mg/dL ()?? 04/18/2024 07:33 Ionized Calcium (POC) POC Cartridge 1.24 mmol/L ()?? 03/29/2024 13:53 Phosphorus 5.8 mg/dL (High)?? 04/17/2024 02:55 Magnesium 2.2 mg/dL ()?? 04/17/2024 02:55 Protein, Total 5.5 Gm/dL (Low)?? 04/03/2024 01:04 Albumin 3.3 Gm/dL (Low)?? 04/03/2024 01:04 AG Ratio 1.5 ()?? 04/01/2024 07:55 Alkaline Phosphatase 55 units/L ()?? 04/03/2024 01:04 AST (SGOT) 15 units/L ()?? 04/03/2024 01:04 ALT (SGPT) 9 units/L ()?? 04/03/2024 01:04 Bilirubin, Total 0.3 mg/dL ()?? 04/03/2024 01:04 Bilirubin, Direct 0.1 mg/dL ()?? 04/03/2024 01:04 Bilirubin, Indirect 0.2 mg/dL ()?? 04/03/2024 01:04 Vitamin B12 Level 868 pg/mL ()?? 03/29/2024 20:32 Iron Level 90 mcg/dL ()?? 04/15/2024 07:11 Iron Binding Capacity, Unsaturated 53 mcg/dL (Low)?? 04/15/2024 07:11 Iron Binding Capacity, Estimated Total 143 mcg/dL (Low)?? 04/15/2024 07:11 % Iron Saturation 63 % (High)?? 04/15/2024 07:11 Ferritin Level 3107 ng/mL (High)?? 04/15/2024 07:11 ?? ENDOCRINE/TUMOR MARKER TSH 5.16 uIU/mL (High)?? 04/16/2024 08:52 ? FLUID STUDIES Body Fld Cult Not indicated. ()?? 03/26/2024 04:50 Note Bact Ag Cult Comment ()?? 03/26/2024 04:50 Spec Source S pneumo Urine ()?? 03/26/2024 04:50 Org ID S pneumo Not indicated. ()?? 03/26/2024 04:50 ?? LIPID STUDIES Cholesterol 131 mg/dL ()?? 03/30/2024 09:00 Triglycerides 144 mg/dL ()?? 03/30/2024 09:00 HDL Cholesterol 43 mg/dL ()?? 03/30/2024 09:00 LDL Cholesterol 59 mg/dL ()?? 03/30/2024 09:00 Non HDL Cholesterol 88 mg/dL ()?? 03/30/2024 09:00 ? MISC. CHEMISTRY Ammonia, Venous 17 ??mole/L ()?? 04/03/2024 01:04 Hold Green Top SPECIMEN DISCARDED AFTER 1 WEEK ()?? 04/03/2024 10:54 Procalcitonin 1.68 ng/mL ()?? 03/31/2024 07:47 ? SEROLOGY INF DISEASE C.difficile Toxin INDETERMINATE (Abnormal)?? 03/31/2024 21:11 C. Difficile Toxin by PCR POSITIVE (Abnormal)?? 03/31/2024 21:11 Legionella pneumophila Antigen NEGATIVE ()?? 03/26/2024 04:50 S. Pneumococcus Urinary Ag NEGATIVE ()?? 03/26/2024 04:50 ?? TOXICOLOGY/TDM Valproic Level 49.1 mg/L (Low)?? 04/10/2024 09:01 ? URINE OTHER Est Creatinine Clearance 13.44 mL/min ()?? 04/18/2024 08:50 ? 32_ minutes spent on discharge * Calista Novoa RN: VERIFY, PERFORM, SIGN Event Display: Case Management Discharge Plan Authored Date: [id number] Patient: TONO HEZROG Age: 69 years Sex: Male : 1955 Associated Diagnoses: None Author: Calista Novoa RN Discharge Plan Case Management Discharge Plan : Case Management Discharge Plan Data 04/18/2024 11:44 EST Discharge Level of Care at Discharge detention facility Discharge Nursing Homes/Rehab Facilities [facility] Discharge Transportation Arranged [facility] [address] [place] [address] Discharge Arranged Transport Date/Time 04/18/2024 15:00 Mode of Transportation Arranged Chair [facility] Service Categories #1 Physical Therapy, [facility], Other: dialysis * Denise PENN, David: PERFORM Event Display: Patient Education/Instruction Authored Date: [id number] Inpatient Adult Discharge Instructions. [address] [address] Name: TONO HERZOG : 1955?? Visit: 03/25/2024 20:10?? Current Date: 04/18/2024 13:10 ?? Account: [id number]?? Inpatient Adult Discharge Instructions We would like to thank you for allowing us to assist you with your healthcare needs. The following includes patient education materials and information regarding your injury/illness. Our entire staffstrives to provide an excellent experience for our patients and their families. PLEASE ENSURE YOU FOLLOW-UP PER THE INSTRUCTIONS BELOW! ?? YOUR OPINION IS IMPORTANT TO US! Please complete the survey you may receive by mail or email. Your feedback will be used to make improvements to the healthcare experiences of our patients and their families. Surveys are administered by [employer] ?? If further treatment with your primary care physician or another doctor is recommended, it is important for you to keep the appointment. Call your primary care physician or return to the Emergency Department immediately if your condition worsens, fails to improve, or new symptoms develop. If you need to find a doctor, you can call [facility] Link for a referral at [phone] or toll free at [phone]) or log in to [email or web address].. ?? [facility], in keeping with [facility] guidance, no longer requires face masks for staff, patientsor visitors in most situations. Similiar to time spent indoors at other locations, there is the chance that you were exposed to repiratory viruses during your time with us (such as flu or COVID-19). If you develop symptoms concerning for a viral respiratory infection, please seek testing (and treatment if indicated) from your medical provider or home test kit. ?? You can view and manage your care through the patient portal or by using a health care jim of your choosing. [employer] is a website that allows you to securely view your medical information including your hospital discharge summary, office visit summaries, medications and follow-up visits. You can also request appointments, renew medications, and request access to your medical information using a health care jim of your choosing, or just ask a question. You can enroll at [email or web address] or register during your next office visit. You have been discharged from [facility], Patient Care Unit: S1??. If you have any questions regarding these instructions, including results of studies pending, afteryou leave, please call us and we will be happy to assist you 24/10. [facility] Your Care Team Attending Physician Joey Chavez MD?? Consulting Providers Joey Chavez MD?? Discharging Providers Joey Chavez MD Your Diagnosis A-fib Acute delirium Acute respiratory failure with hypoxia Anemia, macrocytic Anxiety and depression Bipolar disorder C. difficile diarrhea Catatonia schizophrenia Colitis, Clostridium difficile DVT (deep venous thrombosis) ESRD (end stage renal disease) on dialysis H/O aortic valve stenosis Hematochezia HLD (hyperlipidemia) HTN (hypertension) Hyperkalemia Lymphopenia Obtundation On combination antipsychotic drug therapy Pneumonia RSV infection S/P TAVR (transcatheter aortic valve replacement) SOB (shortness of breath) on exertion Thrombocytopenia Toxic metabolic encephalopathy Unresponsive episode Volume overload Tests Performed Below is a partial list of the tests performed during your hospitalization. You may have had other tests and procedures not included in this list. Please discuss all test results with your provider. ABG ABG POC CARTRIDGE Ammonia Venous BASE EXCESS POC CARTRIDGE Basic Metabolic Panel Blood Culture Blood Culture #2 Blood Culture 2 Results Blood Culture Result BUN C. DIFFICILE TOXIN C.diff PCR, w Rfx Toxin/Ag CALCIUM IONIZED POC CART CBC CBC w/ Differential Comprehensive Metabolic Panel Creatinine Depakote Level Electrolytes FERRITIN Glucose Level GLUCOSE POC GLUCOSE POC CARTRIDGE H + H HEMATOCRIT POC CARTRIDGE HEMOGLOBIN A1C HEMOGLOBIN POC CARTRIDGE HOLD GREEN TUBE IRON & TIBC LFT's Lipid Panel Lytes Magnesium Level MRSA/MSSA PCR Nasal Swab O2 PERCENT (POINT OF CARE) OSMOLALITY, SERUM Phosphorus Level POTASSIUM POC CARTRIDGE ProBNP Procalcitonin Level SODIUM POC CARTRIDGE Sputum Culture Sputum, Gram Smear w/Culture Rfx Strep Pneumoniae Urinary Ag TSH Type and Screen Urine Legionella Antigen VALPROIC Vitamin B12 Level CT Angio Head CT Angio Neck CT Head/Brain W/O Contrast CXR Portable MRI Brain W/O Contrast Portable Chest ABG (Lab) POC Cartridge (ABG POC CARTRIDGE)?? Add On Lab Order?? Ammonia Venous?? B Type Natriuretic Peptide (NT-proBNP) (ProBNP)?? BUN?? Base Excess (Lab) POC Cartridge (BASE EXCESS POC CARTRIDGE)?? Basic Metabolic Panel?? Blood Culture?? Blood Culture #2?? Blood Culture 2 Results?? Blood Culture Result?? Blood Gas Arterial (ABG)?? C. difficile Rapid Toxin Assay (C. DIFFICILE TOXIN)?? C.diff PCR, w Rfx Toxin/Ag?? CBC?? CBC w/ Differential?? CT Angio Head?? CT Angio Neck?? CT Head/Brain W/O Contrast?? Comprehensive Metabolic Panel?? Creatinine?? Electrolytes (Lytes)?? FIO2 (Lab) POC Cartridge (O2 PERCENT (POINT OF CARE))?? Ferritin?? Glucose (Lab) POC Cartridge (GLUCOSE POC CARTRIDGE)?? Glucose Level?? Glucose POC?? Hematocrit (Lab) POC Cartridge (HEMATOCRIT POC CARTRIDGE)?? Hemoglobin (Lab) POC Cartridge (HEMOGLOBIN POC CARTRIDGE)?? Hemoglobin A1C (Monitoring) (HEMOGLOBIN A1C)?? Hepatic Function Panel (LFT's)?? Hepatitis B Surface Antigen?? Hgb + Hct (H + H)?? Hold Green Top Tube (HOLD GREEN TUBE)?? Ionized Calcium(POC) POC Cartridge (CALCIUM IONIZED POC CART)?? Iron + Iron Binding Capacity (IRON & TIBC)?? Legionella Antigen Urine (Urine Legionella Antigen)?? Lipid Panel?? MRI Brain W/O Contrast?? MRSA/MSSA PCR Nasal Swab?? Magnesium Level?? Osmolality (OSMOLALITY, SERUM)?? Phosphorus Level?? Potassium (Lab) POC Cartridge (POTASSIUM POC CARTRIDGE)?? Procalcitonin Level?? Sodium (Lab) POC Cartridge (SODIUM POC CARTRIDGE)?? Sputum Culture?? Sputum, Gram Smear w/Culture Rfx?? Strep Pneumoniae Urinary Ag?? TSH?? Type and Screen?? Valproic Acid Level (VALPROIC)?? Vitamin B12 Level?? Chest Portable (CXR Portable)?? Primary Care Provider Brooke Morales? Advance Directive Health Care Proxy on File Yes - Health Care Proxy Discharge Vitals Temperature: 98 DegF Height: 183 cm Pulse Rate: 55 bpm Weight: 80.63 kg Respiratory Rate: 18 br/min Body Mass Index:??26.4 kg/m2??High Systolic Blood Pressure: 115 mm Hg Body surface area: 2.12 Diastolic Blood Pressure: 60 mm Hg ?? Oxygen Saturation: 94 % ?? Studies Pending All studies ordered during this hospital stay have been completed unless listed below. Please discuss all pending results with your provider listed above in these instructions. ?? Add On Lab Order?? Hepatitis B Surface Antigen?? What to do next Instructions From Your Doctor You were initially admitted for cough You had a complicated hospital stay with a viral pneumonia,??C. difficile You are evaluated by psychiatrist and geriatrics, medication has been changed as reconciled, you need to follow-up with psychiatry outpatient and geriatric outpatient, call to make appointment I will continue??vancomycin??125 mg??every??6 hours for 4 more days to complete??treatment, you do not need to be on isolation Valproic acid??frequency and dose has been changed, you will take??500 mg??3 times an additional 500 mg at night. You will take torsemide??100 mg daily on nondialysis day Kidney??doctors are following you, you need to repeat your??CBC CMP??on your dialysis day??and might need transfusion while on dialysis or Epogen based on??renal recommendation. We are sending you to a rehab ?? Orders? 04/18/24 13:06:00 EST?? You Need to Schedule the Following Appointments Follow Up with??Brooke Meza Where: [address] [place] [id number] (1) Discharge Medications TONO HERZOG :1955 Visit Date:03/25/2024 Medications: Please continue your medications until treatment is completed or stopped by your provider. Medications not listed below should be discontinued. Discuss any questions related to medications with your provider. What How Much When Instructions Next Dose New Calcitriol (calcitriol 0.25 mcg oral capsule) 1 Microgram Oral Monday, Monday and Monday Duration: 30 Days 04/19 at 9 am New Thiamine (thiamine 100 mg oral tablet) 100 Milligram Oral Daily Duration: 30 Days 04/19 at 9 am New torsemide (torsemide 100 mg oral tablet) 1 tab(s) Oral Every Monday, and Thursday 04/20 at 9 am New Vancomycin (vancomycin 125 mg oral capsule) 125 Milligram Oral 4 times a day Duration: 4 Days Doses over 125 mg require ID consult. Indication for Use: C. difficile colitis ?? 04/18 at 5 pm Changed Divalproex Sodium (divalproex sodium 500 mg oral enteric coated tablet) 500 Milligram Oral 3 times a day Duration: 30 Days takes 500mg three times plus 500mg at bedtime ordered separately ?? 04/18 at 9 pm Changed Divalproex Sodium (divalproex sodium 500 mg oral enteric coated tablet) 500 Milligram Oral Daily at Bedtime Duration: 30 Days 04/18 at 9 pm Changed Sevelamer (sevelamer carbonate 800 mg oral tablet) 1,600 Milligram Oral 3 times a day with meals Duration: 30 04/18 with dinner Unchanged Acetaminophen (acetaminophen 325 mg oral tablet) 650 Milligram Oral Every 8 hours as needed for Pain , Mild as needed Unchanged apixaban (apixaban 2.5 mg oral tablet) 1 tab(s) Oral Twice a day 04/18 at 9 pm Unchanged Aripiprazole (ARIPiprazole 20 mg oral tablet) 1 tab(s) Oral Daily 04/19 at 9 am Unchanged Aripiprazole (ARIPiprazole 5 mg oral tablet) 1 tab(s) Oral Daily 04/19 at 9 am Unchanged Aspirin (aspirin 81 mg oral tablet) 1 tab(s) Oral Daily 04/19 at 9 am Unchanged Benztropine (benztropine 1 mg oral tablet) 1 tab(s) Oral Twice a day Tremors ?? 04/18 at 9 pm Unchanged Durable Medical Equipment (Compression Stockings) See instructions surgical, calf length 30-40 mm Hg ?? See instructions Unchanged Metoprolol (metoprolol 25 mg oral tablet) 25 Milligram Oral Twice a day Duration: 30 Days 04/18 at 9 pm Unchanged Multivitamin (Triphrocaps oral capsule) 1 capsule Oral Daily 04/19 at 9 am Unchanged Thiothixene (thiothixene 5 mg oral capsule) 3 capsule Oral Daily 04/19 at 9 am Prescription Given During Visit Calcitriol (calcitriol 0.25 mcg oral capsule) - 1 mcg, By Mouth, Every Monday, Monday and Monday, # 15 tablet, 0 Refills?? Divalproex Sodium (divalproex sodium 500 mg oral enteric coated tablet) - 500 mg, By Mouth, Daily at bedtime, # 30 tablet, 0 Refills?? Divalproex Sodium (divalproex sodium 500 mg oral enteric coated tablet) - 500 mg, By Mouth, 3 timesa day, # 90 tablet, 0 Refills, takes 500mg three times plus 500mg at bedtime ordered separately?? Sevelamer (sevelamer carbonate 800 mg oral tablet) - 1,600 mg, By Mouth, 3 times a day with meals, # 90 tablet, 0 Refills?? Thiamine (thiamine 100 mg oral tablet) - 100 mg, By Mouth, Daily, # 30 tablet, 0 Refills?? Vancomycin (vancomycin 125 mg oral capsule) - 125 mg, By Mouth, 4 times a day, # 16 tablet, 0 Refills, Doses over 125 mg require ID consult. Indication for Use: C. difficile colitis?? torsemide (torsemide 100 mg oral tablet) - 1 tablet = 100 mg, By Mouth, Every Monday, andMonday, # 13 tablet, 0 Refills?? Laboratory Results Below is a partial list of the most recent Laboratory test results done prior to this discharge. You may have had other tests and procedures not included in this list. Please discuss all test resultswith your provider. Est Creatinine Clearance - 13.44 mL/min (04/18/2024) RBC Available - RE (04/15/2024) RBC Unit ID - [id number] (04/15/2024) ABG (03/29/2024) ???pH - 7.36???pCO2 - 48 mm Hg???pO2 - 78 mm Hg???Bicarbonate, Estimated - 26 mmol/L???Specimen Type - Blood Gas - ARTERIAL???Percent O2 (FIO2) - 32 ABG POC CARTRIDGE (03/29/2024) ???pH (POC) POC Cartridge - 7.40???pCO2 (POC) POC Cartridge - 44.1 mm Hg???pO2 (POC) POC Cartridge - 74 mm Hg???Estimated Bicarbonate (POC) POC Cart - 27.0 mmol/L???% O2 Sat Arterial (POC) POC Cartridge - 94 %???Specimen Type - Blood Gas - ARTERIAL Ammonia Venous (04/03/2024) ???Ammonia, Venous - 17 ??mole/L BASE EXCESS POC CARTRIDGE (03/29/2024) ???Base Excess (POC) POC Cartridge - 2 Basic Metabolic Panel (04/18/2024) ???Sodium - 132 mmol/L???Potassium - 4.3 mmol/L???Chloride - 93 mmol/L???Bicarbonate Level - 29 mmol/L???Anion Gap - 10???Glucose Level - 70 mg/dL???BUN - 23 mg/dL???Creatinine-Blood - 5.54 mg/dL???Estimated GFR Creatinine - 10 ML/MIN/1.73 M2???Calcium - 9.9 mg/dL Blood Culture (03/29/2024) ???Blood Culture Results - Final report???Blood Culture Specimen Source - BLOOD Blood Culture #2 (03/29/2024) ???Blood Cult 2 Results - Final report???Blood Culture 2 Specimen Source - BLOOD Blood Culture 2 Results (03/29/2024) ???Blood Culture 2 Isolate 1 - Comment Blood Culture Result (03/29/2024) ???Blood Culture Isolate 1 - Comment BUN (03/26/2024) ???BUN - 57 mg/dL C. DIFFICILE TOXIN (03/31/2024) ???C.difficile Toxin - INDETERMINATE C.diff PCR, w Rfx Toxin/Ag (03/31/2024) ???C. Difficile Toxin by PCR - POSITIVE CALCIUM IONIZED POC CART (03/29/2024) ???Ionized Calcium (POC) POC Cartridge - 1.24 mmol/L CBC (04/17/2024) ???WBC - 3.5 k/mm3???RBC - 2.29 m/mm3???Hgb - 7.5 Gm/dL???Hct - 22.3 %???MCV - 97.4 femtoliters???MCH - 32.8 pg???MCHC - 33.6 Gm/dL???Platelet Count - 86 k/mm3???RDW-SD - 53.9 femtoliters???MPV - 12.1 femtoliters???Nucleated RBC (Automated) - 0.0 #/100 WBC'S???Abs. NRBC - 0.0 k/mm3 CBC w/ Differential (03/30/2024) ???WBC - 3.4 k/mm3???RBC - 2.71 m/mm3???Hgb - 8.7 Gm/dL???Hct - 27.6 %???MCV - 101.8 femtoliters???MCH - 32.1 pg???MCHC - 31.5 Gm/dL???Platelet Count - 61 k/mm3???RDW-SD - 62.0 femtoliters???MPV - 10.7 femtoliters???Nucleated RBC (Automated) - 0.0 #/100 WBC'S???Abs. NRBC - 0.0 k/mm3???Abs. Neut - 2.0 k/mm3???Abs. Lymph - 0.7 k/mm3???Abs. [place] - 0.6 k/mm3???Abs. Eo - 0.1 k/mm3???Abs. Baso - 0.0 k/mm3???Neut % - 59.7 %???Lymph % - 19.5 %???[place] % - 16.9 %???Eos % - 2.7 %???Baso % - 0.3 %???Imm Gran - 0.9 %???Abs. Imm Gran - 0.0 k/mm3 Comprehensive Metabolic Panel (04/01/2024) ???Sodium - 137 mmol/L???Potassium - 4.5 mmol/L???Chloride - 95 mmol/L???Bicarbonate Level - 21 mmol/L???Anion Gap - 21???Glucose Level - 80 mg/dL???BUN - 78 mg/dL???Creatinine-Blood - 11.32 mg/dL???Estimated GFR Creatinine - 4 ML/MIN/1.73 M2???Calcium - 9.9 mg/dL???Protein, Total - 5.9 Gm/dL???Albumin - 3.5 Gm/dL???AG Ratio - 1.5???Alkaline Phosphatase - 55 units/L???AST (SGOT) - 16 units/L???ALT (SGPT) - 9 units/L???Bilirubin, Total - 0.2 mg/dL Creatinine (03/26/2024) ???Creatinine-Blood - 11.53 mg/dL???Estimated GFR Creatinine - 4 ML/MIN/1.73 M2 Depakote Level (04/03/2024) ???Valproic Level - 39.6 mg/L Electrolytes (03/30/2024) ???Sodium - 137 mmol/L???Potassium - 4.3 mmol/L???Chloride - 96 mmol/L???Bicarbonate Level - 23 mmol/L???Anion Gap - 18 FERRITIN (04/15/2024) ???Ferritin Level - 3107 ng/mL Glucose Level (03/26/2024) ???Glucose Level - 156 mg/dL GLUCOSE POC (04/03/2024) ???Glucose, POC - 71 mg/dL GLUCOSE POC CARTRIDGE (03/29/2024) ???Glucose (POC) POC Cartridge - 89 H + H (04/18/2024) ???Hgb - 7.1 Gm/dL???Hct - 21.5 % HEMATOCRIT POC CARTRIDGE (03/29/2024) ???Hematocrit (POC) POC Cartridge - 29 % HEMOGLOBIN A1C (03/29/2024) ???Hemoglobin A1C (Monitoring) - 4.5 % HEMOGLOBIN POC CARTRIDGE (03/29/2024) ???Hemoglobin (POC) POC Cartridge - 9.9 Gm/dL HOLD GREEN TUBE (04/03/2024) ???Hold Green Top - SPECIMEN DISCARDED AFTER 1 WEEK IRON & TIBC (04/15/2024) ???Iron Level - 90 mcg/dL???Iron Binding Capacity, Unsaturated - 53 mcg/dL???Iron Binding Capacity,Estimated Total - 143 mcg/dL???% Iron Saturation - 63 % LFT's (04/03/2024) ???Protein, Total - 5.5 Gm/dL???Albumin - 3.3 Gm/dL???Alkaline Phosphatase - 55 units/L???AST (SGOT) - 15 units/L???ALT (SGPT) - 9 units/L???Bilirubin, Total - 0.3 mg/dL???Bilirubin, Direct - 0.1 mg/dL???Bilirubin, Indirect - 0.2 mg/dL Lipid Panel (03/30/2024) ???Cholesterol - 131 mg/dL???Triglycerides - 144 mg/dL???HDL Cholesterol - 43 mg/dL???LDL Cholesterol - 59 mg/dL???Non HDL Cholesterol - 88 mg/dL Lytes (04/12/2024) ???Sodium - 136 mmol/L???Potassium - 4.1 mmol/L???Chloride - 95 mmol/L???Bicarbonate Level - 27 mmol/L???Anion Gap - 14 Magnesium Level (04/17/2024) ???Magnesium - 2.2 mg/dL MRSA/MSSA PCR Nasal Swab (03/26/2024) ???MRSA PCR Result - Negative, MRSA target DNA not detected.???S Aureus PCR Result - Negative, SA target DNA not detected. O2 PERCENT (POINT OF CARE) (03/29/2024) ???FIO2 (POC) POC Cartridge - 38 % OSMOLALITY, SERUM (04/16/2024) ???Osmolality - 262 mOs/kg Phosphorus Level (04/17/2024) ???Phosphorus - 5.8 mg/dL POTASSIUM POC CARTRIDGE (03/29/2024) ???Potassium (POC) POC Cartridge - 3.7 mmol/L ProBNP (03/31/2024) ???Nt-Probnp - 68669 pg/mL Procalcitonin Level (03/31/2024) ???Procalcitonin - 1.68 ng/mL SODIUM POC CARTRIDGE (03/29/2024) ???Sodium (POC) POC Cartridge - 135 mmol/L Sputum Culture (03/26/2024) ???Sputum Culture Isolate 1 - Comment???Sputum Culture Status - Final report Sputum, Gram Smear w/Culture Rfx (03/26/2024) ???Sputum Culture Specimen Source - EXPECTORATED SPUTUM???Sputum Cult Epithelial Cells - Few???GramStain Evaluation - Comment???Sputum Gram Stain Result 1 - Comment???White Blood Cells - None seen Strep Pneumoniae Urinary Ag (03/26/2024) ???S. Pneumococcus Urinary Ag - NEGATIVE???Body Fld Cult - Not indicated.???Note Bact Ag Cult - Comment???Spec Source S pneumo - Urine???Org ID S pneumo - Not indicated. TSH (04/16/2024) ???TSH - 5.16 uIU/mL Type and Screen (04/15/2024) ???Blood Type - A Positive???Antibody Screen - Negative Urine Legionella Antigen (03/26/2024) ???Legionella pneumophila Antigen - NEGATIVE VALPROIC (04/10/2024) ???Valproic Level - 49.1 mg/L Vitamin B12 Level (03/29/2024) ???Vitamin B12 Level - 868 pg/mL You will be contacted within 72 hours with your results. Allergies (NKA means No Known Allergies) No Known Medication Allergies Problems Active Problems??(7) Acute systolic congestive heart failure?? Atrial fibrillation?? Bipolar 1 disorder?? DVT (deep venous thrombosis)?? ESRD on hemodialysis?? Hypertension?? Severe aortic stenosis?? Education Materials Below is the list of Educational Leaflet Providered with your Discharge Instructions. [employer] Patient Education - RSV (Respiratory Syncytial Virus) Infection?? Valuables and Belongings I fully understand and agree that [facility] accepts no responsibility for all my personal property including clothing, toilet articles, radios, jewelry, dentures, hearing aids, rings, money, or any other property that is in my possession or is brought to me after admission. I understand certain valuables may be placed in a hospital safe for a short period of time. I understand that the hospital is not liable for loss or damage due to accident, fire, or other natural occurrence while said property is in the safe. I accept full responsibility for any personal property that I keep with me, and will not hold the hospital responsible in case of loss or disappearance. I acknowledge that i have been encouraged to send valuables and belongings home. ?? Review of Valuable and Belonging List: With patient Date for Pt to Sign Valuables/Belongings: 04/16/24 20:46:00 ?? Other Discharge Information ? Case Management Discharge Plan?? Discharge Plan?? Discharge Agency Information?? Discharge Level of Care at Discharge: detention facility [facility] Discharge Transportation Arranged: [facility] [address] [place] [address] ??[phone] Service Categories #1: Physical Therapy, [facility], Other: dialysis Mode of Transportation Arranged: Chair Van ?? Discharge Arranged Transport Date/Time: 04/18/24 15:00:00 ?? Discharge Nursing Homes/Rehab Facilities: [facility] ? Pulmonary Rehab Status?? Pulmonary Rehab Discharge Status?? Respiratory Rate: 18 br/min ? Common Emergency Awareness Tips IS IT A STROKE? Act FAST and Check for these signs: FACE Does the face look uneven? ARM Does one arm drift down? SPEECH Does their speech sound strange? TIME Call at any sign of stroke ?? Heart Attack Signs Chest discomfort: Most heart attacks involve discomfort in the center of the chest and lasts more than a few minutes, or goes away and comes back. It can feel like uncomfortable pressure, squeezing, fullness or pain. Discomfort in upper body: Symptoms can include pain or discomfort in one or both arms, back, neck, jaw or stomach. Shortness of breath: With or without discomfort. Other signs: Breaking out in a cold sweat, nausea, or lightheaded. Remember, MINUTES DO MATTER. If you experience any of these heart attack warning signs, call to get immediate medical attention! ?? Smoking can increase your chances of developing chronic health problems and can cause harmful effects to other family members in your house. If you smoke, you are strongly encouraged to quit. Please call [facility] Dada Room Link at [phone] or [phone] ([phone]) or log in to [email or web address] for referrals to smoking cessation programs. ?? 740 Suicide & Crisis Lifeline is available 24/10 if you or someone you know needs to find a reason to keep living. By calling 986 you'll be connected to a skilled, trained counselor at a crisis center in your area. INPATIENT DISCHARGE INSTRUCTIONS SIGNATURE PAGE ANALY HERZOGN Location:[facility] Registration Date and Time:03/25/2024 20:10 EST Primary Care Physician: Brooke Morales, Attending Physician: Joey Chavez MD, TONO HARLEY, have received the above patient education materials/instructions and have verbalized understanding. If ambulance or transport services are being used I further acknowledge being given a choice of service. ?? If you need to contact me, please call me at this number: . Patient/Healthcare Insurance Sales Agent Name: Patient/Healthcare Insurance Sales Agent Signature: Relationship to Patient: Witness Name/Signature: Date: * Joey Chavez MD: PERFORM, SIGN, VERIFY Event Display: Patient Education Handout Authored Date: [id number] * David Walker RN: PERFORM Event Display: Patient Education Leaflets Authored Date: [id number] RSV (Respiratory Syncytial Virus) Infection ?? [address]26 RSV (Respiratory Syncytial Virus) Infection RSV (respiratory syncytial virus) is a common cause of respiratory infections in people of all ages.??RSV occurs more often in the winter and early spring. RSV is so common that almost all children have had the virus by age 2. Older adults and people who have weak immune systems can get RSV again later in life. This is because their immunity to RSV goes down over time.??RSV symptoms are often mild. But RSV can be a serious problem for high-risk infants, young children, and older adults. These groups may have more serious infections and trouble breathing. Prevention choices are available for older adults, people, and newborns. How RSV spreads RSV spreads easily when a person with the infection coughs or sneezes. It spreads by direct contactwith an infected person. For instance, kissing a child with RSV spreads the virus. And the virus can live on hard surfaces. A person can get RSV by touching something with the virus on it. These can include crib rails and doorknobs. It spreads quickly in group settings, such as daycare and schools. Viruses that cause RSV spread through the air in droplets when someone who has RSV coughs, sneezes,laughs, or talks. ?? Symptoms of RSV Most babies and children with RSV have the same symptoms as a cold or flu. These symptoms include: ??? Stuffy or runny nose ??? Cough ??? Headache ??? Low-grade fever Some may go on to have bronchiolitis. This condition is when the small airways in the lungs (bronchioles) become inflamed. It causes: ??? Wheezing ??? Shortness of breath ??? Fast breathing ??? Increased cough Children, older adults, and people with a very weak immune system may get pneumonia. ?? Treating RSV RSV most often goes away on its own. There is no treatment for RSV in most cases. Care for babies, children, and adults is focused on easing symptoms. Antibiotics are not used unless a bacterial infection occurs.??Children or adults at high risk for severe RSV can be treated with certain medicines. To ease symptoms: ??? Manage fever. Ask your healthcare provider or nurse about lowering you or your child's fever. Know what medicine to use. And how much and how often to use it. Never give children and teens aspirin or any medicines containing aspirin. It's linked to side effects, such as an upset stomach and intestinal bleeding. Most seriously, it is linked to a condition called Bright syndrome. ??? Dress in layers to not get overheated. Make sure your child isn't wearing too much clothing.? Stay hydrated. If your child is old enough, give them fluids, such as water and??juice. ??? Treat a stuffy nose. For babies and young children, remove mucus from??their nose with a rubber bulb suction device.??Be g entle so you don't cause more swelling or mild pain. Ask your child???s healthcare provider or nurse for instructions. Consider using a cool mist humidifier to open blocked nasal passages. Older children and adults can filling station equipment mechanic a warm shower. ??? Avoid tobacco smoke. Don???t let anyone smoke aroundyour child. Stay out of public areas where smoking occurs. For severe symptoms People with severe symptoms need to be treated in the hospital. They are watched closely. They may have treatment such as: ??? IV (intravenous) fluids ??? Oxygen? Suctioning of??mucus ??? Breathing treatments ??? Anti-inflammatory medicine, such as steroids ??? Aerosolized or oral ribavirin ??? Intravenous immune globulin Those with very serious breathing problems have a breathing tube. The tube is put in the throat anddown into the lungs. This is called intubation. The tube is attached to a machine (ventilator) thathelps them breathe. ? When to call the healthcare provider Call your provider right away if you or your child have any of these symptoms: ??? Fever (see Feverand children below). For adults, call for a fever of 100.4?? F (38??C) or higher, or fever that doesn't go down with medicine, or as advised by your healthcare provider. ??? A seizure with a high fever ??? A cough that's getting worse or with colored mucus or blood ??? Wheezing, breathing faster than normal, or trouble breathing ??? Flaring the nostrils or straining the chest or stomach while breathing (most commonly in young children) ??? Skin around the mouth or fingers that turns a blue color ??? Restlessness or grouchiness, can't be soothed ??? Trouble eating, drinking, or swallowing ??? Shortness of breath ??? Confusion ??? Dizziness ??? Needing to sit upright (in bed or in a chair) to breathe or catch breath ?? Fever and children Use a digital thermometer to check your child???s temperature. Don???t use a mercury thermometer. There are different kinds and uses of digital thermometers. They include: ??? Rectal. For children younger than 3 years, a rectal temperature is the most accurate. ??? Forehead. This works for children age 3 months and older. If a child under 3 months old has signs of illness, this can be used for a first pass. The healthcare provider may want to confirm with a rectal temperature. ??? Ear. Ear temperatures are accurate after 6 months of age, but not before. ??? Armpit.This is the least reliable but may be used for a first pass to check a child of any age with signs of illness. The provider may want to confirm with a rectal temperature. ??? Mouth. Don???t use a thermometer in your child???s mouth until they are at least 4 years old. Use a rectal thermometer with care. Follow the product maker???s directions for correct use. Insertit gently. Label it and make sure it???s not used in the mouth. It may pass on germs from the stool. If you don???t feel OK using a rectal thermometer, ask the healthcare provider what type to use instead. When you talk with any healthcare provider about your child???s fever, tell them which type you used. Below is when to call the healthcare provider if your child has a fever. Your child???s healthcare provider may give you different numbers. Follow their instructions. When to call a healthcare provider about your child???s fever For a baby under 3 months old: ??? First, ask your child???s healthcare provider how you should take the temperature. ??? Rectal or forehead: 100.4??F (38??C) or higher ??? Armpit: 99??F (37.2??C) or higher ??? A fever of as advised by the provider For a child age 3 months to 36 months (3 years): ??? Rectal or forehead: 102??F (38.9??C) or higher ??? Ear (only for use over age 6 months): 102??F(38.9??C) or higher ??? A fever of as advised by the provider In these cases: ??? Armpit temperature of 103??F (39.4??C) or higher in a child of any age ??? Temperature of 104??F (40??C) or higher in a child of any age ??? A fever of as advised by the provider ?? Preventing RSV infection To help prevent the infection: ??? Clean your hands before and after holding or touching your child.??Use an alcohol-based hand white work cleaner that contains at least 60% alcohol. Or wash your hands with soap and clean, running water for at least 20 seconds.? Clean all surfaces with disinfectant convalescent sitter or wipes. ??? Teach your child how to wash their hands correctly and when to wash them. Have your child wash their hands often.Teach them to wash their hands for as long as it takes to sing the ABC song or the Happy Birthday song. Or have them use an alcohol-based hand white work cleaner that contains at least 60% alcohol. ??? Have allfamily members or caregivers clean their hands before and after holding or touching your child. ???Closely watch your own health and that of family members and your child???s friends. Try to preventcontact between your child and those with a cold or fever. ??? Don???t smoke around your child. Anddon't let anyone else smoke around your child. This includes caregivers and family members. Don't smoke in your house or car. Keep your child out of any area where smoking occurs. ??? To prevent severe RSV in infants, CDC recommends either of these below. Most infants will not need both: o RSV vaccine given to the mother at 32 through 36 weeks of . This vaccine is given right before or during RSV season. The protection from this vaccine passes to the baby during . OR o Infant i mmunization with an RSV monoclonal antibody shot for babies younger than 8 months born during or entering their first RSV season. ??? The antibody shot may also be advised for some infants and children ages 8 months through 19 months who are at increased risk for severe RSV. ??? Babies and childrenat high risk for RSV infection may get a different monoclonal antibody medicine. This is given as aseries of shots (injections) once a month during RSV season. They help prevent the illness in premature babies and children with health problems, such as certain heart conditions. ??? Talk with your healthcare provider if you are age 60 or older. An RSV vaccine is available to help protect adults in this age group who are at increased risk for severe RSV. All adults age 75 and over are advised toget the RSV vaccine. Your provider can give you more information. Date last modified: 11/16/2023 ?? Last Reviewed Date: 2023 ?? 8077-6139 [employer]. All rights reserved. This information is not intended as a substitute for professional medical care. Always follow your healthcare professional's instructions. ?? Patient Care team information Care Team Personnel Name: Chico Pack Position: [facility] Associate Professional Member Role: [employer] Consulting Provider Address: [address] [place] [address] [facility] [address] Telecom: Name: Susan Diaz Position: S RN Member Role: Primary Care Nurse Name: Erika West Position: S RN Member Role: Primary Care Nurse Name: Yissel Beasley RN Position: S RN Member Role: Primary Care Nurse Name: Juliet Lo RN Position: S RN Member Role: Primary Care Nurse Name: Jayleen Mayfield Position: S Associate Professional Member Role: [employer] Consulting Provider Address: [address] [place], [place] [id number] [facility] [address] Telecom: Name: Sheridan Erazo LPN Position: S RN Member Role: Primary Care Nurse Name: Maria De Jesus Epstein Position: S RN Member Role: Primary Care Nurse Name: Ad Ewing MD Position: [facility] Renal Member Role: Lifetime Consulting Physician Address: [facility] [address] Telecom: Name: Kylah Feng RN Position: S RN Member Role: Primary Care Nurse Name: Pratibha Conley MD Position: [facility] Renal MD Member Role: Lifetime Consulting Physician Address: [address] [facility] [place], [place] [address] Telecom: Name: Richard Bryant RN Position: [facility] RN Member Role: Primary Care Nurse Name: Kathie Coon RN Position: [facility] RN Member Role: Primary Care Nurse Name: Lizeth Stinson RN Position: [facility] AMB Nurse Member Role: Primary Care Nurse Name: Trice Garcia RN Position: S RN Member Role: Primary Care Nurse Name: Jessie Villanueva RN Position: [facility] RN Member Role: Primary Care Nurse Name: Shirley Cohn RN Position: [facility] RN Member Role: Primary Care Nurse Name: Daly Jack RN Position: [facility] RN Member Role: Primary Care Nurse Name: Cammie Conley RN Position: [facility] RN Member Role: Primary Care Nurse Name: Kandy Stanton RN Position: [facility] RN Member Role: Primary Care Nurse Name: Brooke Morales Position: [facility] Outreach Member Role: PCP Address: [address] [facility] [place], [place] [address] Telecom: Name: Levi Schneider RN Position: [facility] RN Member Role: Primary Care Nurse Name: Mary Ann Glover RN Position: [facility] RN Member Role: Primary Care Nurse Name: Ramakrishna Anderson RN Position: [facility] RN Member Role: Primary Care Nurse Name: Yahaira Guerrero RN Position: [facility] RN Member Role: Primary Care Nurse Name: Erika Almaraz LPN Position: [facility] RN Member Role: Primary Care Nurse Name: Analy Guzman Position: [facility] RN Member Role: Primary Care Nurse Name: David Walker RN Position: [facility] RN Member Role: Primary Care Nurse Name: Dieter Crowley RN Position: [facility] RN Member Role: Primary Care Nurse Name: Manoj Brunson MD Position: [facility] Outreach Member Role: Lifetime Consulting Physician Address: [address] [facility] [place] [place], [place] [address] Telecom: Name: Bret Orosco RN Position: S RN Member Role: Primary Care Nurse Name: Holly Marcano RN Position: S RN Member Role: Primary Care Nurse Name: Bradley Pena MD Position: [facility] Renal MD Member Role: Lifetime Consulting Physician Address: [address] [facility] [address] [facility] [address] Telecom: Name: Sheridan Aldrich RN Position: S RN Member Role: Primary Care Nurse Name: Kaycee Burnett RN Position: S RN Member Role: Primary Care Nurse Name: Mariana Mcclain RN Position: S RN Member Role: Primary Care Nurse Name: Hunter Brown RN Position: [facility] RN Member Role: Primary Care Nurse Care Team Related Persons Name: SUJATA HERZOG Insurance Providers Guarantor name: TONO HERZOG Health Plan Information #: 2 Payer: [facility] SUP Member Number: [id number] Policy Number: NA Group Number: NA Health Plan Information #: 1 Payer: MEDICARE A INPT 25 Member Number: [id number] Policy Number: NA Group Number: NA
== END 2024-04-24 12:44 | disposition home or self-care (01) ==
LOC: HO.MMNH1L 12:43
PROVIDERS: Visit Provider Nurse Practitioner
DX: Z99.2 Dependence on renal dialysis (principal); D53.9 Nutritional anemia, unspecified
CPT/HCPCS: 36415; 85025

== ENCOUNTER 2024-04-30 05:34 | Outpatient (REF) | payer MEDICARE, SELFPAY ==
--- OUTSIDE RECORDS SUMMARY | 2024-04-30 05:36 | XMS_ITS | Clinical Summary ---
Author Organization Unknown Care Team Providers Care Checkout Supervisor Name Role Phone DELMY GONZALEZ, MEENU Unavailable Unavailab Silas PENN, ALAINA Unavailable Unavailable PATRICIA PENN, YANIRA Unavailable Unavailable Payers Payer Name Policy Type Policy Number Effective Date Expira tion Date MEDICARE - [facility] - [facility] [id number] Problems Condition Name Condition Details Condition Category Status Onset Date Resolution Date Last Treatment Date Treating Clinician Comments UNSPECIFIED ATRIAL FIBRILLATION Active 12-17 00:00: 00 ACUTE SYSTOLIC (CONGESTIVE) HEART FAILURE Active 12-17 00:00: 00 NONRHEUMATIC AORTIC (VALVE) STENOSIS Active 12-17 00:00: 00 BIPOLAR DISORDER, UNSPECIFIED Active 08-21 00:00: 00 END STAGE RENAL DISEASE Active 08-21 00:00: 00 DEPENDENCE ON RENAL DIALYSIS Active 08-21 00:00: 00 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 Active 08-21 00:00: 00 Patient's other noncompl with meds regimen for other reason Active 08-21 00:00: 00 Patient's noncomplianc e with renal dialysis for other reaso Active 08-21 00:00: 00 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 Ordering Clinician Indication Dosage Frequency Signature (SIG) Comments Components benztropine 2 mg tablet 08-25 00:00: 00 04-17 23:59 :00 No [id number] 1 tablet 2 TIMES DAILY 1 tablet 2 TIMES DAILY (route: oral) Med Classific ation: Central Nervous System Agents Renal Caps 1 mg capsule 08-25 00:00: 00 04-17 23:59 :00 No [id number] 1 capsule DAILY 1 capsule DAILY (route: oral) Med Classific ation: Electroly te Balance-N utritiona l Products sevelamer carbonate 800 mg tablet 08-25 00:00: 00 04-17 23:59 :00 No [id number] 1 tablet 3 TIMES DAILY 1 tablet 3 TIMES DAILY (route: oral) Med Classific ation: Genitouri nary Therapy Abilify 20 mg tablet 08-25 00:00: 00 04-17 23:59 :00 No [id number] 1 tablet DAILY 1 tablet DAILY (route: oral) Med Classific ation: Central Nervous System Agents aspirin 81 mg tablet,pritesh yed release 08-25 00:00: 00 04-17 23:59 :00 No [id number] 1 tablet DAILY 1 tablet DAILY (route: oral) Med Classific ation: Hematolog ical Agents divalproex 500 mg tablet,pritesh yed release 08-25 00:00: 00 04-17 23:59 :00 No [id number] 2 tablet BEDTIME 2 tablet BEDTIME (route: oral) Med Classific ation: Central Nervous System Agents Eliquis 2.5 mg tablet 12-23 00:00: 00 04-17 23:59 :00 No [id number] 1 tablet 2 TIMES DAILY 1 tablet 2 TIMES DAILY (route: oral) Med Classific ation: Hematolog ical Agents metoprolol succinate ER 25 mg tablet,exte nded release 24 hr 12-23 00:00: 00 01-28 23:59 :00 No [id number] 1 tablet DAILY 1 tablet DAILY (route: oral) Med Classific ation: Cardiovas cular Therapy Agents metoprolol succinate ER 25 mg tablet,exte nded release 24 hr 2023-04 00:00: 00 04-17 23:59 :00 No [id number] 1 tablet DAILY 1 tablet DAILY (route: oral) Med Classific ation: Cardiovas cular Therapy Agents Vital Signs Vital Name Observation Time Observation Value Commen ts Temperature 2024-03-18 11:08:00.000 98.6 [degF] Temperature 2024-03-12 11:51:00.000 98.6 [degF] Temperature 2024-03-04 12:12:00.000 98.6 [degF] Temperature 2024-02-26 11:38:00.000 98.6 [degF] Pulse 2024-03-18 11:08:00.000 80 /min Pulse 2024-03-12 11:51:00.000 80 /min Pulse 2024-03-04 12:12:00.000 80 /min Pulse 2024-02-26 11:38:00.000 80 /min O2 Saturation (%) 2024-03-18 11:08:00.000 98 % O2 Saturation (%) 2024-03-12 11:52:00.000 98 % O2 Saturation (%) 2024-03-04 12:13:00.000 98 % O2 Saturation (%) 2024-02-26 11:39:00.000 95 % Respirations 2024-03-18 11:08:00.000 18 /min Respirations 2024-03-12 11:51:00.000 18 /min Respirations 2024-03-04 12:12:00.000 18 /min Respirations 2024-02-26 11:38:00.000 18 /min Weight (lbs) 2024-03-18 11:09:00.000 210 [lb_av] Weight (lbs) 2024-03-04 12:14:00.000 208 [lb_av] Systolic Blood Pressure 2024-03-18 11:08:00.000 140 mm [Hg] Systolic Blood Pressure 2024-03-12 11:51:00.000 140 mm [Hg] Systolic Blood Pressure 2024-03-04 12:12:00.000 140 mm [Hg] Systolic Blood Pressure 2024-02-26 11:38:00.000 140 mm [Hg] Diastolic Blood Pressure 2024-03-18 11:08:00.000 78 mm [Hg] Diastolic Blood Pressure 2024-03-12 11:51:00.000 78 mm [Hg] Diastolic Blood Pressure 2024-03-04 12:12:00.000 80 mm [Hg] Diastolic Blood Pressure 2024-02-26 11:38:00.000 80 mm [Hg] Plan of Treatment Planned Activity Planned Date Details Comments Future Scheduled Test SKILLED NU RSE TO EVALUATE PATIENT, IDENTIFY PRIMARY AND CO-MORBID CONDITIONS CODED PER CODING GUIDELINES, AND DEVELOP PATIENT SPECIFIC PLAN OF CARE THAT INCLUDES PATIENT GOAL FOR HOME HEALTH. [code = SKILLED NURSE TO EVALUATE PATIENT, IDENTIFY PRIMARY AND CO-MORBID CONDITIONS CODED PER CODING GUIDELINES, AND DEVELOP PATIENT SPECIFIC PLAN OF CARE THAT INCLUDES PATIENT GOAL FOR HOME HEALTH.] Future Scheduled Test SKILLED NU RSE TO PERFORM HOME SAFETY AND FALL ASSESSMENT AND PROVIDE INSTRUCTION TO IMPLEMENT HOME SAFETY AND FALL PREVENTION STRATEGIES. [code = SKILLED NURSE TO PERFORM HOME SAFETY AND FALL ASSESSMENT AND PROVIDE INSTRUCTION TO IMPLEMENT HOME SAFETY AND FALL PREVENTION STRATEGIES.] Future Scheduled Test SKILLED NU RSE FOR OBSERVATION AND ASSESSMENT OF PATIENTS PAIN LEVEL AND EFFECTIVENESS OF PAIN MANAGEMENT REGIMEN. SKILLED NURSE TO INSTRUCT PATIENT/CAREGIVER REGARDING PHARMACOLOGIC AND NON-PHARMACOLOGIC PAIN CONTROL MEASURES. SKILLED NURSE TO REPORT TO PHYSICIAN IF PAIN IS UNCONTROLLED WITH CURRENT PAIN MANAGEMENT REGIMEN. [code = SKILLED NURSE FOR OBSERVATION AND ASSESSMENT OF PATIENTS PAIN LEVEL AND EFFECTIVENESS OF PAIN MANAGEMENT REGIMEN. SKILLED NURSE TO INSTRUCT PATIENT/CAREGIVER REGARDING PHARMACOLOGIC AND NON-PHARMACOLOGIC PAIN CONTROL MEASURES. SKILLED NURSE TO REPORT TO PHYSICIAN IF PAIN IS UNCONTROLLED WITH CURRENT PAIN MANAGEMENT REGIMEN.] Future Scheduled Test SKILLED NU RSE WILL MAINTAIN SITUATIONAL AWARENESS FOR SAFETY AND WILL NOTIFY CLINICAL PRODUCT DEVELOPMENT ASSISTANT AND PHYSICIAN/PROVIDER WITH ANY CHANGE IN CONDITION. [code = SKILLED NURSE WILL MAINTAIN SITUATIONAL AWARENESS FOR SAFETY AND WILL NOTIFY CLINICAL PRODUCT DEVELOPMENT ASSISTANT AND PHYSICIAN/PROVIDER WITH ANY CHANGE IN CONDITION.] Future Scheduled Test PATIENT FLORES S A RISK OF HOSPITALIZATION AND ED USE. SKILLED NURSE TO ESTABLISH SUPPORT MEASURES TO MINIMIZE RISK OF HOSPITALIZATION AND ED USE, AND INSTRUCT PATIENT/CAREGIVER ON METHODS TO REDUCE AVOIDABLE HOSPITALIZATION AND ED USE. [code = PATIENT HAS A RISK OF HOSPITALIZATION AND ED USE. SKILLED NURSE TO ESTABLISH SUPPORT MEASURES TO MINIMIZE RISK OF HOSPITALIZATION AND ED USE, AND INSTRUCT PATIENT/CAREGIVER ON METHODS TO REDUCE AVOIDABLE HOSPITALIZATION AND ED USE.] Future Scheduled Test SKILLED NU RSE TO PROVIDE INSTRUCTION TO PATIENT/CAREGIVER RELATED TO DISCHARGE PLANNING. [code = SKILLED NURSE TO PROVIDE INSTRUCTION TO PATIENT/CAREGIVER RELATED TO DISCHARGE PLANNING.] Future Scheduled Test SKILLED NU RSE TO O/A OF PATIENTS MENTAL/BEHAVIORAL STATUS, ASSESS VITAL SIGNS 1WK8 ALLOW 2 PRNS FOR MEDICATION MANAGEMENT. [code = SKILLED NURSE TO O/A OF PATIENTS MENTAL/BEHAVIORAL STATUS, ASSESS VITAL SIGNS 1WK8 ALLOW 2 PRNS FOR MEDICATION MANAGEMENT.] Future Scheduled Test SKILLED NU RSE FOR O/A OF GENERAL HEALTH STATUS OF PAIN, CARDIAC, RESPIRATORY, GASTROINTESTINAL, GENITOURINARY, SKIN, NEUROLOGIC, ENDOCRINE SYSTEMS TO IDENTIFY CHANGES ASSOCIATED WITH EXACERBATION FOR EARLY INTERVENTION OF COMPLICATIONS CHF [code = SKILLED NURSE FOR O/A OF GENERAL HEALTH STATUS OF PAIN, CARDIAC, RESPIRATORY, GASTROINTESTINAL, GENITOURINARY, SKIN, NEUROLOGIC, ENDOCRINE SYSTEMS TO IDENTIFY CHANGES ASSOCIATED WITH EXACERBATION FOR EARLY INTERVENTION OF COMPLICATIONS CHF] Future Scheduled Test SKILLED NU RSE TO REVIEW PATIENT MEDICATIONS. INSTRUCT PATIENT/CAREGIVER ON MONITORING OF EFFECTIVENESS, ADVERSE DRUG REACTIONS, SIDE EFFECTS OF ALL MEDICATIONS (PRESCRIPTION/-OTC), AND HOW AND WHEN TO REPORT PROBLEMS. [code = SKILLED NURSE TO REVIEW PATIENT MEDICATIONS. INSTRUCT PATIENT/CAREGIVER ON MONITORING OF EFFECTIVENESS, ADVERSE DRUG REACTIONS, SIDE EFFECTS OF ALL MEDICATIONS (PRESCRIPTION/-OTC), AND HOW AND WHEN TO REPORT PROBLEMS.] Future Scheduled Test SKILLED NU RSE TO ASSESS PATIENTS PSYCHOSOCIAL STATUS TO IDENTIFY POTENTIAL ISSUES THAT MAY COMPLICATE THE PROVISION OF THE PLAN OF CARE INCLUDING THE PATIENTS ABILITY TO ACCESS COMMUNITY RESOURCES AND PSYCHOSOCIAL SUPPORT SERVICES. [code = SKILLED NURSE TO ASSESS PATIENTS PSYCHOSOCIAL STATUS TO IDENTIFY POTENTIAL ISSUES THAT MAY COMPLICATE THE PROVISION OF THE PLAN OF CARE INCLUDING THE PATIENTS ABILITY TO ACCESS COMMUNITY RESOURCES AND PSYCHOSOCIAL SUPPORT SERVICES.] Future Scheduled Test SKILLED NU RSE FOR O/A, TEACHING, AND MANAGEMENT OF CHF [code = SKILLED NURSE FOR O/A, TEACHING, AND MANAGEMENT OF CHF] Future Scheduled Test SKILLED NU RSE TO PROVIDE TEACHING ON SIGNS AND SYMPTOMS AND MANAGEMENT OF HYPERTENSION. [code = SKILLED NURSE TO PROVIDE TEACHING ON SIGNS AND SYMPTOMS AND MANAGEMENT OF HYPERTENSION.] Future Scheduled Test SKILLED NU RSE FOR O/A, TEACHING AND SELF-MANAGEMENT RELATED TO HEART FAILURE. INSTRUCT PATIENT/CAREGIVER ON SIGNS AND SYMPTOMS OF EXACERBATION TO REPORT. WEIGHT TO BE OBTAINED 1WK8 AND WEIGHT GAIN OF 2 LBS OVERNIGHT OR 5 LBS IN 1 WEEK TO BE REPORTED TO PHYSICIAN. IF UNABLE TO WEIGH PATIENT, SKILLED NURSE TO OBTAIN MEASUREMENT OF LLE IN CM AT EACH VISIT AND REPORT AN INCREASE OF 1 CM TO PHYSICIAN. [code = SKILLED NURSE FOR O/A, TEACHING AND SELF-MANAGEMENT RELATED TO HEART FAILURE. INSTRUCT PATIENT/CAREGIVER ON SIGNS AND SYMPTOMS OF EXACERBATION TO REPORT. WEIGHT TO BE OBTAINED 1WK8 AND WEIGHT GAIN OF 2 LBS OVERNIGHT OR 5 LBS IN 1 WEEK TO BE REPORTED TO PHYSICIAN. IF UNABLE TO WEIGH PATIENT, SKILLED NURSE TO OBTAIN MEASUREMENT OF LLE IN CM AT EACH VISIT AND REPORT AN INCREASE OF 1 CM TO PHYSICIAN.] Future Scheduled Test INSTRUCTED PATIENT/CAREGIVER ON SIGNS AND SYMPTOMS, RISK FACTORS, COMPLICATIONS, AND MANAGEMENT OF ATRIAL FIBRILLATION. [code = INSTRUCTED PATIENT/CAREGIVER ON SIGNS AND SYMPTOMS, RISK FACTORS, COMPLICATIONS, AND MANAGEMENT OF ATRIAL FIBRILLATION.] Future Scheduled Test SKILLED NU RSE FOR O/A, TEACHING AND MANAGEMENT OF CKD FOR EARLY IDENTIFICATION OF EXACERBATION OF DISEASE PROCESS [code = SKILLED NURSE FOR O/A, TEACHING AND MANAGEMENT OF CKD FOR EARLY IDENTIFICATION OF EXACERBATION OF DISEASE PROCESS] Future Scheduled Test SKILLED NU RSE FOR O/A AND SKILLED TEACHING IN MANAGEMENT OF CHFCIRCULATORY/VASCULAR DISEASE. [code = SKILLED NURSE FOR O/A AND SKILLED TEACHING IN MANAGEMENT OF CHFCIRCULATORY/VASCULAR DISEASE.] Future Scheduled Test SKILLED NU RSE TO PROVIDE TEACHING/REINFORCEMENT RELATED TO URINARY INCONTINENCE. [code = SKILLED NURSE TO PROVIDE TEACHING/REINFORCEMENT RELATED TO URINARY INCONTINENCE.] Future Scheduled Test SKILLED NU RSE FOR O/A AND SKILLED TEACHING RELATED TO MANAGEMENT OF DEPRESSIVE SYMPTOMS AND/OR DEPRESSION. SN TO REPORT SIGNIFICANT CHANGE IN DEPRESSIVE SYMPTOMS TO CLINICAL PROVIDER FOR EARLY INTERVENTION. [code = SKILLED NURSE FOR O/A AND SKILLED TEACHING RELATED TO MANAGEMENT OF DEPRESSIVE SYMPTOMS AND/OR DEPRESSION. SN TO REPORT SIGNIFICANT CHANGE IN DEPRESSIVE SYMPTOMS TO CLINICAL PROVIDER FOR EARLY INTERVENTION.] Future Scheduled Test SKILLED NU RSE FOR O/A OF MUSCULOSKELETAL STATUS AND TEACHING ON MEASURES TO MANAGE MUSCLE WEAKNESS TO MAINTAIN SAFETY WITH ACTIVITY [code = SKILLED NURSE FOR O/A OF MUSCULOSKELETAL STATUS AND TEACHING ON MEASURES TO MANAGE MUSCLE WEAKNESS TO MAINTAIN SAFETY WITH ACTIVITY] Goal 2023-12-20 Patient Goal - I MPROVED MEDICATION MANAGEMENT Goal 2024-04-04 Patient Goal - I MPROVED MEDICATION MANAGEMENT Goal 2024-02-19 Patient Goal - I MPROVED MEDICATION MANAGEMENT Goal 2023-10-20 Patient Goal - I MPROVED MEDICATION MANAGEMENT Goal Provider Goal - A PLAN OF CARE WILL BE ESTABLISHED THAT MEETS PATIENT'S LONGTERM NEEDS AND INCLUDES PATIENT GOAL FOR HOME HEALTH. Goal Provider Goal - PATIENT/CAREGIVER WILL VERBALIZE/DEMONSTRATE EFFECTIVE HOME SAFETY AND FALL PREVENTION STRATEGIES THROUGHOUT CERTIFICATION PERIOD. Goal Provider Goal - PATIENT/CAREGIVER WILL DEMONSTRATE UNDERSTANDING OF PHARMACOLOGIC AND NONPHARMACOLOGIC PAIN CONTROL MEASURES AND PATIENT WILL HAVE IMPROVEMENT IN PAIN INTERFERING WITH ACTIVITY EVIDENCED BY PAIN CONTROLLED AT LEVEL OF 0OR LESS BY END OF CERTIFICATION PERIOD. Goal Provider Goal - PATIENT WILL REMAIN SAFE IN THE COMMUNITY AND WILL BE FREE OF DANGER TO SELF AND OTHERS THROUGHOUT THE CERTIFICATION PERIOD. Goal Provider Goal - PATIENT WILL HAVE SUPPORT MEASURES ESTABLISHED TO PREVENT HOSPITALIZATION AND ED USE AND PATIENT/CAREGIVER WILL VERBALIZE/DEMONSTRATE METHODS TO REDUCE AVOIDABLE HOSPITALIZATION AND ED USE BY END OF EPISODE. Goal Provider Goal - PATIENT/CAREGIVER WILL VERBALIZE UNDERSTANDING OF DISCHARGE PLANNING INSTRUCTIONS BY DATE OF DISCHARGE. Goal Provider Goal - ALTERED MENTAL/BEHAVIORAL STATUS WILL BE IDENTIFIED PROMPTLY AND INTERVENTION INITIATED QUICKLY TO MINIMIZE ASSOCIATED RISKS THROUGHOUT CERTIFICATION PERIOD. Goal Provider Goal - CHANGE IN GENERAL HEALTH STATUS WILL BE IDENTIFIED AND REPORTED TO PHYSICIAN FOR PROMPT INTERVENTION TO MINIMIZE ASSOCIATED RISKS THROUGHOUT CERTIFICATION PERIOD. Goal Provider Goal - PATIENT/CAREGIVER WILL VERBALIZE UNDERSTANDING OF EDUCATION PROVIDED ON MEDICATIONS BY THE END OF THE CERTIFICATION PERIOD. Goal Provider Goal - PSYCHOSOCIAL NEEDS WILL BE IDENTIFIED AND PLAN IMPLEMENTED TO MINIMIZE RISK THROUGHOUT CERTIFICATION PERIOD. Goal Provider Goal - PATIENT/CAREGIVER WILL VERBALIZE/DEMONSTRATE MANAGEMENT OF CHF CARDIAC DISEASE PROCESS AND EXACERBATIONS WILL BE IDENTIFIED AND PROMPTLY REPORTED THROUGHOUT THE CERTIFICATION PERIOD. Goal Provider Goal - PATIENT/CAREGIVER WILL VERBALIZE SIGNS AND SYMPTOMS OF HYPERTENSION AND WILL BE ABLE TO DEMONSTRATE ABILITY TO MANAGE EXACERBATION BY END OF THE EPISODE. Goal Provider Goal - PATIENT/CAREGIVER WILL VERBALIZE/DEMONSTRATE KNOWLEDGE AND MANAGEMENT OF HEART FAILURE DISEASE PROCESS BY END OF EPISODE. Goal Provider Goal - PATIENT/CAREGIVER WILL VERBALIZE UNDERSTANDING OF SIGNS AND SYMPTOMS, COMPLICATIONS, AND MANAGEMENT OF ATRIAL FIBRILLATION THROUGHOUT THE CERTIFICATION PERIOD. Goal Provider Goal - PATIENT/CAREGIVER WILL VERBALIZE UNDERSTANDING OF CKD GENITOURINARY DISEASE PROCESS, AND EXACERBATIONS OF GENITOURINARY DISEASE WILL BE PROMPTLY IDENTIFIED FOR EARLY INTERVENTION THROUGHOUT THE CERTIFICATION PERIOD. Goal Provider Goal - PATIENT/CAREGIVER WILL VERBALIZE/DEMONSTRATE THE ABILITY TO MANAGE CHF CIRCULATORY DISEASE PROCESS AND EXACERBATIONS WILL BE IDENTIFIED FOR EARLY INTERVENTION THROUGHOUT THE CERTIFICATION PERIOD. Goal Provider Goal - PATIENT / CAREGIVER WILL VERBALIZE UNDERSTANDING OF EFFECTS OF URINARY INCONTINENCE BY THE END OF THE CERTIFICATION PERIOD. Goal Provider Goal - PATIENT WILL REMAIN SAFE WITHOUT DECOMPENSATION IN DEPRESSIVE CONDITION, WHILE MAINTAINING OPTIMAL LEVEL OF MENTAL HEALTH AND WELL BEING THROUGHOUT CERTIFICATION PERIOD. Goal Provider Goal - PATIENT/CAREGIVER WILL VERBALIZE/DEMONSTRATE ABILITY TO MANAGE MUSCLE WEAKNESS MUSCULOSKELETAL DISEASE WHILE MAINTAINING SAFETY THROUGHOUT THE EPISODE. Reason for Visit INDEPENDENT IN THE HOME Encounters Start Date/Time End Date/Time Encounter Type Admission Type Attending [facility] Care Department Encounter ID Discharge Date Discharge Status Discharge Condition Discharge Reason Percent Goals Met 2023-08-26 00:00:00 2024-04-04 00:00:00 Outpatient RECERTIFIC ALAINA CASTELLANOS [facility] [id number] 2024-04-04 00:00:00 DISCHARGE TO HOME OR SELF CARE INDEPENDEN T IN THE HOME PER FAMILY REQUEST 2.94
--- OUTSIDE RECORDS SUMMARY | 2024-04-30 05:37 | XMS_ITS | Clinical Summary ---
Author Organization [facility] Facility Address [address] [address] Care Team Providers Care Assistant Professor Of Philosophy Name Role Phone Anshu Ulloa MD Primary Care Provider [phone] Allergies No known active allergies Medications aspirin (ST PATI) 81 MG EC tablet Take 1 capsule by mouth 1 (one) time each day Active benztropine (Cogentin) 1 MG/ML injection Take 1 tablet by mouth 2 (two) times a day Active divalproex (Depakote ER) 500 MG 24 hr tablet Take 2 tablets by mouth 1 (one) time each day Active thiothixene (NAVANE) 5 MG capsule Take 5 mg by mouth 1 (one) time each day 3 pill 5 mg Active lidocaine-pril ocaine (EMLA) cream Apply topically 3 (three) times a week Apply 0.5 hour before treatment 2 kit 11 06/10/19 22 Active ARIPiprazole (ABILIFY) 20 MG tablet Take 20 mg by mouth 1 (one) time each day Active ergocalciferol 1.25 MG (33011 UT) capsule Take 50,000 Units by mouth 1 (one) time per week Active sevelamer carbonate (RENVELA) 800 MG tablet TAKE 1 TABLET BY MOUTH IN THE MORNING AND 1 TABLET AT NOON AND TAKE 1 TABLET IN THE EVENING. TAKE WITH MEALS, SWALLOW WHOLE, DO NOT CRUSH, BREAK OR CHEW 270 tablet 04/20/19 25 Active sevelamer carbonate (RENVELA) 800 MG tablet Take 1 tablet (800 mg total) by mouth in the morning and 1 tablet (800 mg total) at noon and 1 tablet (800 mg total) in the evening. Take with meals. Swallow tablet whole; do not crush, break, or chew.. 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 06/20/2023 Deep venous thrombosis 06/20/2023 End stage renal disease 06/20/2023 Hypertension 11/08/2017 Hyperlipidemia 11/08/2017 Chronic kidney disease stage 4 11/08/2017 Bipolar I disorder 11/08/2017 Anemia 07/08/2016 Tremor 04/14/2016 Hemorrhoid 06/10/2015 Overview (06/20/2023): External Encounters Date Type Department Care Team Description 04/19/2024 Refill [facility] [address] [address] Bradley Pena MD 03/11/2024 Treatment [facility] [address] [address] Bradley Pena MD 03/04/2024 Treatment [facility] [address] [address] Bradley ePna MD 03/01/2024 Treatment [facility] [address] [address] Bradley Pena MD 02/27/2024 Treatment [facility] [address] [address] Bradley Pena MD 02/17/2024 Treatment [facility] [address] [address] Bradley Pena MD 02/05/2024 Treatment [facility] [address] [facility] [address] [place] [address] Bradley Pena MD from Last 3 Months Family History Medical History Relation Comments Cancer Father Heart disease Mother Relation Status Comments Father Mother Alive Social History Tobacco Use Types Packs/Day Years Used Date Smoking Tobacco: Never Alcohol Use Standard Drinks/Week Comments No 0 (1 standard drink = 0.6 oz pur e alcohol) Sex and Gender Information Value Date Recorded Sex Assigned at Not on file Legal Sex Male 5:01 PM EST Gender Identity Not on file Sexual Orientation Not on file Last Filed Vital Signs Vital Sign Reading Time Taken Comments Blood Pressure 162/84 10/30/2023 4:01 PM EDT Pulse 72 10/30/2023 4:01 PM EDT Temperature - - Respiratory Rate - - Oxygen Saturation 97% 10/30/2023 4:01 PM EDT Inhaled Oxygen Concentration - - Weight 91.9 kg (202 lb 9.6 oz) 10/30/2023 4:01 P M EDT Height 182.9 cm (6') 10/30/2023 4:01 PM EDT Body Mass Index 27.48 10/30/2023 4:01 PM EDT Plan of Treatment Health Maintenance Due Date Last Done Comments Pneumococcal Vaccine: 65+ Years (1 of 2 - PCV) 959 Hepatitis B Vaccine (1 of 5 - Risk Dialysis 4-dose series) 1973 Colorectal Cancer Screening: Colonoscopy 2002 Colorectal Cancer Screening: Sigmoidoscopy 2002 Colorectal Cancer Screening: Annual FOBT 12/08/2022 12/08/2021 Influenza Vaccine (#1) 2023 Procedures Procedure Name Priority Date/Time Associated Diagnosis Comments PHOSPHATE ( PHOSPHORUS) Routine 04/26/2024 3:00 AM EST CALCIUM, ADJUSTED W ALBUMIN Routine 04/26/2024 3:00 AM EST LIH (HC) Routine 04/26/2024 3:00 AM EST HEMOGLOBIN AND HEMATOCRIT, BLOOD Routine 04/26/2024 3:00 AM EST ALUMINUM LEVEL Routine 04/19/2024 3:00 AM EST HEPATITIS B CORE AB TOTAL Routine 04/19/2024 3:00 AM EST HEPATITIS C ABS W/REFLEX RNA DETECTR Routine 04/19/2024 3:00 AM EST CONFIRMATION TEST HCV Routine 04/19/2024 3:00 AM EST FERRITIN Routine 04/19/2024 3:00 AM EST HEPATITIS B SURFACE ANTIGEN W/REFL CONFIRM Routine 04/19/2024 3:00 AM EST TRANSFERRIN SATURATION Routine 3:00 AM EST URIC ACID Routine 04/19/2024 3:00 AM EST PROTEIN, TOTAL, SERUM Routine 04/19/2024 3:00 AM EST LIPID PANEL Routine 04/19/2024 3:00 AM EST ELECTROLYTE PANEL Routine 04/19/2024 3:0 0 AM EST MAGNESIUM Routine 04/19/2024 3:00 AM EST LACTATE DEHYDROGENASE Routine 04/19/2024 3:00 AM EST LIH (HC) Routine 04/19/2024 3:00 AM EST GLUCOSE, RANDOM Routine 04/19/2024 3:00 AM EST CREATININE, SERUM Routine 04/19/2024 3:0 0 AM EST AST Routine 04/19/2024 3:00 AM EST ALT Routine 04/19/2024 3:00 AM EST BILIRUBIN, TOTAL Routine 04/19/2024 3:00 AM EST ALKALINE PHOSPHATASE Routine 04/19/2024 3:00 AM EST CALCIUM PHOSPHORUS PRODUCT, ADJUSTED (HC) Routine 04/19/2024 3:00 AM EST HEPATITIS B SURFACE ANTIBODY QUANT Routine 04/19/2024 3:00 AM EST VITAMIN D 25 HYDROXY Routine 04/19/2024 3:00 AM EST PTH, INTACT Routine 04/19/2024 3:00 AM EST CBC AND DIFFERENTIAL Routine 04/19/2024 3:00 AM EST KT/V NATURAL LOG, URR (HC) Routine 04/19/2024 3:00 AM EST LIH (HC) Routine 03/22/2024 3:00 AM EST CALCIUM, ADJUSTED W ALBUMIN Routine 03/22/2024 3:00 AM EST PHOSPHATE ( PHOSPHORUS) Routine 03/22/2024 3:00 AM EST HEMOGLOBIN AND HEMATOCRIT, BLOOD Routine 03/22/2024 3:00 AM EST FERRITIN Routine 03/08/2024 3:00 AM EST TRANSFERRIN SATURATION Routine 3:00 AM EST PROTEIN, TOTAL, SERUM Routine 03/08/2024 3:00 AM EST MAGNESIUM Routine 03/08/2024 3:00 AM EST ELECTROLYTE PANEL Routine 03/08/2024 3:0 0 AM EST GLUCOSE, RANDOM Routine 03/08/2024 3:00 AM EST LIH (HC) Routine 03/08/2024 3:00 AM EST LACTATE DEHYDROGENASE Routine 03/08/2024 3:00 AM EST CREATININE, SERUM Routine 03/08/2024 3:0 0 AM EST BILIRUBIN, TOTAL Routine 03/08/2024 3:00 AM EST AST Routine 03/08/2024 3:00 AM EST ALT Routine 03/08/2024 3:00 AM EST CALCIUM PHOSPHORUS PRODUCT, ADJUSTED (HC) Routine 03/08/2024 3:00 AM EST ALKALINE PHOSPHATASE Routine 03/08/2024 3:00 AM EST PTH, INTACT Routine 03/08/2024 3:00 AM EST KT/V STANDARD, URR (<>3X/WK) Routine 03/08/2024 3:00 AM EST COLLECTION DATE (HC) Routine 03/08/2024 3:00 AM EST CBC AND DIFFERENTIAL Routine 03/08/2024 3:00 AM EST LIH () Routine 02/23/2024 3:00 AM EST PTH, INTACT Routine 02/23/2024 3:00 AM EST HEMOGLOBIN AND HEMATOCRIT, BLOOD Routine 02/23/2024 3:00 AM EST KT/V NATURAL LOG, URR () Routine 02/23/2024 3:00 AM EST ALUMINUM LEVEL Routine 02/19/2024 3:00 AM EST LIH () Routine 02/19/2024 3:00 AM EST HEMOGLOBIN Routine 02/19/2024 3:00 AM EST KT/V NATURAL LOG, URR (HC) Routine 02/19/2024 3:00 AM EST FERRITIN Routine 02/16/2024 3:00 AM EST MAGNESIUM Routine 02/16/2024 3:00 AM EST TRANSFERRIN SATURATION Routine 3:00 AM EST LIH (HC) Routine 02/16/2024 3:00 AM EST ELECTROLYTE PANEL Routine 02/16/2024 3:0 0 AM EST LACTATE DEHYDROGENASE Routine 02/16/2024 3:00 AM EST GLUCOSE, RANDOM Routine 02/16/2024 3:00 AM EST CREATININE, SERUM Routine 02/16/2024 3:0 0 AM EST BILIRUBIN, TOTAL Routine 02/16/2024 3:00 AM EST ALT Routine 02/16/2024 3:00 AM EST AST Routine 02/16/2024 3:00 AM EST ALKALINE PHOSPHATASE Routine 02/16/2024 3:00 AM EST CALCIUM PHOSPHORUS PRODUCT, ADJUSTED (HC) Routine 02/16/2024 3:00 AM EST UNSPUN TUBE (HC) Routine 02/12/2024 3:00 AM EST CBC AND DIFFERENTIAL Routine 02/12/2024 3:00 AM EST KT/V STANDARD, URR (<>3X/WK) Routine 02/12/2024 3:00 AM EST OCCULT BLOOD X 3, STOOL Routine 12/08/2021 from Last 3 Months or Most Recently Relevant to Health Maintenance Results * LIH (04/26/2024 3:00 AM EST) Only the most recent of7 resultswithin the time period is included. Lipemia Normal Normal [facility] Icterus Normal Normal [facility] Hemolysis Normal Normal [facility] 04/26/2024 3:00 AM EST 04/27/2024 2:17 PM EST us Bradley Pena MD LAB [id number] SOLICITED RESULTS Final Result Performing Organization Address [facility] de Phone Number [facility]PS [facility] [address] [place] [address] * (ABNORMAL) Calcium, Adjusted w Albumin (04/26/2024 3:00 AM EST) Only the most recent of2 resultswithin the time period is included. Calcium 10.1 8.6 - 10.3 mg/dL [facility] Albumin 3.6 3.6 - 5.4 g/dL [facility] Calcium, Adjusted Total 10.4(H) 8.6 - 10.3 mg/dL [facility] 04/26/2024 3:00 AM EST 04/27/2024 2:17 PM EST us Bradley Pena MD LAB BLOOD ORDERABLES Final Re sult Performing Organization Address City/[facility]/ZIP Co de Phone Number [facility] [address] [place] [address] * (ABNORMAL) Hemoglobin and hematocrit (04/26/2024 3:00 AM EST) Only the most recent of3 resultswithin the time period is included. Hgb 7.2(L) 13.7 - 17.5 g/dL [facility] Hematocrit 22.6(L) 40.1 - 51.0 % [facility] Hemoglobin x 3 21.6(L) 41.1 - 52.5 g/dL [facility] 04/26/2024 3:00 AM EST 04/27/2024 2:17 PM EST Bradley Pena MD LAB BLOOD ORDERABLES Final Re sult Performing Organization Address [facility] de Phone Number [facility]PS [facility] [address] [place] [address] * Phosphorus (04/26/2024 3:00 AM EST) Only the most recent of2 resultswithin the time period is included. Phosphorus, Serum 4.6 2.5 - 5.0 mg/dL [facility] 04/26/2024 3:00 AM EST 04/27/2024 2:17 PM EST Bradley Pena MD LAB BLOOD ORDERABLES Final Re sult Performing Organization Address [facility] Phone Number [facility]PS [facility] [address] [place] [address] * Confirmation Test HCV (04/19/2024 3:00 AM EST) Hep C Ab Confirmation Not needed [facility] 04/19/2024 3:00 AM EST 04/20/2024 2:11 PM EST Bradley Pena MD LAB BLOOD ORDERABLES Final Re sult Performing Organization Address [facility] de Phone Number [facility]PS [facility] [address] [place] [address] * (ABNORMAL) Kt/V Natural Log, URR (04/19/2024 3:00 AM EST) Only the most recent of3 resultswithin the time period is included. Treatment Time 182 min [facility] Pre-Weight, lb 88.2 kg [facility] Post-Weight, lb 87.7 kg [facility] Ultrafiltration Rate 2 <=13 mL/kg/hr [facility] Comment: Recommend achieving Ultrafiltration Rate (UFR) <=10 mL/kg/hr References: Javon GRAHAM et al. Kidney Int. 2010; 79(2):250-257 BUN Post Dialysis 10 7 - 25 mg/dL [facility] BUN 31(H) 7 - 25 mg/dL [facility] UREA REDUCTION RATIO (%) 68 >=65 % [facility] Kt/V Natural Log 1.23 >=1.2 [facility] 04/19/2024 3:00 AM EST 04/20/2024 2:00 PM EST Bradley Pena MD LAB [id number] SOLICITED RESULTS Final Result Performing Organization Address City/[facility] Co de Phone Number [facility] [address] [place] [address] * (ABNORMAL) Calcium Phosphorus Product, Adjusted (04/19/2024 3:00 AM EST) Only the most recent of3 resultswithin the time period is included. Albumin 3.8 3.6 - 5.4 g/dL [facility] Calcium 10.2 8.6 - 10.3 mg/dL [facility] Phosphorus, Serum 5.7(H) 2.5 - 5.0 mg/dL [facility] Ca*PO4 58.1(A) <55.0 mg2/dL2 [facility] Calcium, Adjusted Total 10.4(H) 8.6 - 10.3 mg/dL [facility] CA*PO4 CORRCTD 59.3(A) <55.0 mg2/dL2 [facility] 04/19/2024 3:00 AM EST 04/20/2024 2:13 PM EST Bradley Pena MD LAB [id number] SOLICITED RESULTS Final Result Performing Organization Address [facility] de Phone Number [facility] [address] [place] [address] * HEPATITIS C ABS W/REFLEX RNA DETECTR (04/19/2024 3:00 AM EST) Hep C Virus Ab Non-Reacti ve Non-Reacti ve [facility] 04/19/2024 3:00 AM EST 04/20/2024 2:13 PM EST Bradley Pena MD LAB [id number] SOLICITED RESULTS Final Result Performing Organization Address [facility] de Phone Number [facility] [address] [place] [address] * Hepatitis B Surface Ag w/Reflex Confirmation (04/19/2024 3:00 AM EST) Hep B Surface Antigen Negative Negative [facility] 04/19/2024 3:00 AM EST 04/20/2024 2:13 PM EST Bradley Pena MD LAB BLOOD ORDERABLES Final Re sult Performing Organization Address [facility] de Phone Number [facility] [address] [place] [address] * (ABNORMAL) TSAT (04/19/2024 3:00 AM EST) Only the most recent of3 resultswithin the time period is included. Iron 67 65 - 175 ug/dL [facility] Transferrin 142(L) 215 - 365 mg/dL [facility] TIBC 199(L) 211 - 406 ug/dL [facility] Iron Saturation (TSat) 34 22 - 52 % [facility] 04/19/2024 3:00 AM EST 04/20/2024 2:13 PM EST Bradley Pena MD LAB BLOOD ORDERABLES Final Re sult Performing Organization Address [facility] de Phone Number [facility] [address] [place] [address] * Hepatitis B Core Antibody, Total (04/19/2024 3:00 AM EST) HBc Total Ab, S Negative Negative [facility] 04/19/2024 3:00 AM EST 04/20/2024 2:13 PM EST Bradley Pena MD LAB BLOOD ORDERABLES Final Re sult Performing Organization Address [facility] de Phone Number [facility] [address] [place] [address] * Aluminum level (04/19/2024 3:00 AM EST) Only the most recent of2 resultswithin the time period is included. Pathologist [facility] Aluminum 16 1 - 20 ug/L [facility] 04/19/2024 3:00 AM EST 04/20/2024 2:07 PM EST Bradley Pena MD LAB BLOOD ORDERABLES Final Re sult Performing Organization Address [facility] de Phone Number [facility] [address] [place] [address] * Vitamin D 25 Hydroxy (04/19/2024 3:00 AM EST) [facility] Vitamin D, 25-Hydroxy 57 30 - 100 ng/mL [facility] Comment: Status ? Adult ?? Pediatric Deficient: ? <20 ? <15 Insufficient: ??20-29 ?? 15-19 Sufficient: ?30-100 ??20-100 04/19/2024 3:00 AM EST 04/20/2024 2:13 PM EST Bradley Pena MD LAB BLOOD ORDERABLES Final Re sult Performing Organization Address [facility] de Phone Number [facility] [address] [place] [address] * Hepatitis B Surface Antibody (04/19/2024 3:00 AM EST) [facility] Hep B Surface Antibody 28 mIU/mL [facility] Comment: Interpretation: <10: No Immunity >=10: Probable Immunity 04/19/2024 3:00 AM EST 04/20/2024 2:13 PM EST Bradley Pena MD LAB BLOOD ORDERABLES Final Re sult Performing Organization Address [facility] de Phone Number [facility] [address] [place] [address] * (ABNORMAL) CBC and Differential (04/19/2024 3:00 AM EST) Only the most recent of3 resultswithin the time period is included. DIFFERENTIAL MANUAL, 2 Not Indicated [facility] White Blood Cells 3.5(L) 4.2 - 9.1 K/uL [facility] RBC 2.21(L) 4.63 - 6.08 M/uL [facility] Hgb 8.1(L) 13.7 - 17.5 g/dL [facility] Hemoglobin x 3 24.3(L) 41.1 - 52.5 g/dL [facility] Hematocrit 22.9(L) 40.1 - 51.0 % [facility] MCV 103.6(H) 79.0 - 92.2 fL [facility] MCH 36.7(H) 25.7 - 32.2 pg [facility] MCHC 35.4 32.3 - 36.5 g/dL [facility] Platelets 93(L) 163 - 337 K/uL [facility] RDW 15.6(H) 11.6 - 14.4 % [facility] Neutrophils Relative 66.1 34.0 - 67.9 % [facility] Lymphocytes Relative 15.2(L) 21.8 - 53.1 % [facility] Monocytes 12.9(H) 5.3 - 12.2 % [facility] Eosinophils Relative 4.6 0.8 - 7.0 % [facility] Basophils Relative 0.9 0.2 - 1.2 % [facility] Immature Granulocytes 0.3 0.0 - 1.0 % [facility] 04/19/2024 3:00 AM EST 04/20/2024 2:11 PM EST Bradley Pena MD LAB BLOOD ORDERABLES Final Re sult [facility] [address] [place] [address] * Uric Acid (04/19/2024 3:00 AM EST) Pathologist [facility] Uric Acid 5.0 4.4 - 7.6 mg/dL [facility] 04/19/2024 3:00 AM EST 04/20/2024 2:13 PM EST Bradley Pena MD LAB BLOOD ORDERABLES Final Re sult Performing Organization Address [facility] de Phone Number [facility] [address] [place] [address] * (ABNORMAL) ALT (04/19/2024 3:00 AM EST) Only the most recent of3 resultswithin the time period is included. ALT (SGPT) <7(L) 10 - 49 U/L [facility] 04/19/2024 3:00 AM EST 04/20/2024 2:13 PM EST Bradley Pena MD LAB BLOOD ORDERABLES Final Re sult Performing Organization Address [facility] de Phone Number [facility] [address] [place] [address] * AST (04/19/2024 3:00 AM EST) Only the most recent of3 resultswithin the time period is included. AST (SGOT) <8 <34 U/L [facility] 04/19/2024 3:00 AM EST 04/20/2024 2:13 PM EST Bradley Pena MD LAB BLOOD ORDERABLES Final Re sult Performing Organization Address [facility] de Phone Number [facility] [address] [place] [address] * (ABNORMAL) Protein, total (04/19/2024 3:00 AM EST) Only the most recent of2 resultswithin the time period is included. Total Protein 6.2(L) 6.4 - 8.9 g/dL [facility] 04/19/2024 3:00 AM EST 04/20/2024 2:13 PM EST Bradley Pena MD LAB BLOOD ORDERABLES Final Re sult Performing Organization Address [facility] de Phone Number [facility] [address] [place] [address] * Alkaline phosphatase (04/19/2024 3:00 AM EST) Only the most recent of3 resultswithin the time period is included. Alkaline Phosphatase 56 46 - 116 U/L [facility] 04/19/2024 3:00 AM EST 04/20/2024 2:13 PM EST Bradley Pena MD LAB BLOOD ORDERABLES Final Re sult Performing Organization Address [facility] Co de Phone Number [facility] [address] [place] [address] * PTH, Intact (04/19/2024 3:00 AM EST) Only the most recent of3 resultswithin the time period is included. PTH, Intact 290 160 - 721 pg/mL [facility] Comment: Suggested (KDIGO) ESRD maintenance range is two to nine times the upper normal limit (80.1 pg/mL) for the laboratory. 04/19/2024 3:00 AM EST 04/20/2024 2:13 PM EST us Bradley Pena MD LAB BLOOD ORDERABLES Final Re sult Performing Organization Address [facility] de Phone Number [facility] [address] [place] [address] * Magnesium (04/19/2024 3:00 AM EST) Only the most recent of3 resultswithin the time period is included. Magnesium 2.2 1.9 - 2.7 mg/dL [facility] 04/19/2024 3:00 AM EST 04/20/2024 2:13 PM EST us Bradley Pena MD LAB BLOOD ORDERABLES Final Re sult Performing Organization Address [facility] Co de Phone Number [facility] [address] [place] [address] * Lactate dehydrogenase (04/19/2024 3:00 AM EST) Only the most recent of3 resultswithin the time period is included. LDH 168 120 - 246 U/L [facility] 04/19/2024 3:00 AM EST 04/20/2024 2:13 PM EST us Bradley Pena MD LAB BLOOD ORDERABLES Final Re sult Performing Organization Address [facility] Co de Phone Number [facility] [address] [place] [address] * Glucose, random (04/19/2024 3:00 AM EST) Only the most recent of3 resultswithin the time period is included. Glucose 86 74 - 109 mg/dL [facility] 04/19/2024 3:00 AM EST 04/20/2024 2:13 PM EST us Bradley Pena MD LAB BLOOD ORDERABLES Final Re sult Performing Organization Address [facility] de Phone Number [facility] [address] [place] [address] * (ABNORMAL) Ferritin (04/19/2024 3:00 AM EST) Only the most recent of3 resultswithin the time period is included. Ferritin 1,698(H) 22 - 322 ng/mL [facility] 04/19/2024 3:00 AM EST 04/20/2024 2:13 PM EST us Bradley Pena MD LAB BLOOD ORDERABLES Final Re sult Performing Organization Address [facility] de Phone Number [facility] [address] [place] [address] * (ABNORMAL) Creatinine, serum (04/19/2024 3:00 AM EST) Only the most recent of3 resultswithin the time period is included. Creatinine 7.29(H) 0.70 - 1.30 mg/dL [facility] 04/19/2024 3:00 AM EST 04/20/2024 2:13 PM EST Bradley Pena MD LAB BLOOD ORDERABLES Final Re sult Performing Organization Address City/[facility] de Phone Number [facility] [address] [place] [address] * Bilirubin, total (04/19/2024 3:00 AM EST) Only the most recent of3 resultswithin the time period is included. Total Bilirubin 0.3 0.3 - 1.2 mg/dL [facility] 04/19/2024 3:00 AM EST 04/20/2024 2:13 PM EST Bradley Pena MD LAB BLOOD ORDERABLES Final Re sult Performing Organization Address [facility] de Phone Number [facility] [address] [place] [address] * (ABNORMAL) Lipid panel (04/19/2024 3:00 AM EST) Cholesterol 124 <200 mg/dL [facility] Comment: Optimal: ?<200 Borderline: ? 200-239 Higher Risk: ?>239 Triglycerides 74 <150 mg/dL [facility] Comment: Optimal: ?<150 Borderline High: ??150-199 High: ? 200-499 Very High: ?>499 HDL 46(A) >59 mg/dL [facility] Comment: Desirable: ?>59 Higher Risk: ?<40 LDL-Calc 63 <100 mg/dL [facility] Comment: Optimal: ?<100 Above Optimal: ?100-129 Borderline High: ??130-159 High: ? 160-189 Very High: ?>189 VLDL Cholesterol Alexi 15 <30 mg/dL [facility] Comment: Optimal: ?<30 Borderline High: ??30-39 High: ? 40-99 Very High: ?>99 Chol/HDL Ratio 2.7 <3.3 [facility] Comment: Optimal: ?<3.3 Higher Risk: ?>6.2 04/19/2024 3:00 AM EST 04/20/2024 2:13 PM EST Bradley Pena MD LAB BLOOD ORDERABLES Final Re sult Performing Organization Address [facility] de Phone Number [facility] [address] [place] [address] * (ABNORMAL) Electrolyte panel (04/19/2024 3:00 AM EST) Only the most recent of3 resultswithin the time period is included. Sodium 132(L) 136 - 145 mEq/L [facility] Potassium 4.5 3.4 - 5.0 mEq/L [facility] Chloride 97(L) 98 - 107 mEq/L [facility] Bicarbonate (CO2) 26 21 - 31 mEq/L [facility] Anion Gap 9 3 - 14 mEq/L [facility] 04/19/2024 3:00 AM EST 04/20/2024 2:13 PM EST Bradley Pena MD LAB BLOOD ORDERABLES Final Re sult Performing Organization Address [facility] de Phone Number [facility] [address] [place] [address] * (ABNORMAL) Kt/V Standard, URR (<>3x/wk) (03/08/2024 3:00 AM EST) Only the most recent of2 resultswithin the time period is included. Treatment Time 245 min [facility] Number of Treatments 2 treatment s/wk [facility] Pre-Weight, lb 95.1 kg [facility] Post-Weight, lb 91.9 kg [facility] Ultrafiltration Rate 9 <=13 mL/kg/hr [facility] Comment: Recommend achieving Ultrafiltration Rate (UFR) <=10 mL/kg/hr References: Javon GRAHAM et al. Kidney Int. 2010; 79(2):250-257 BUN 71(H) 7 - 25 mg/dL [facility] BUN Post Dialysis 21 7 - 25 mg/dL [facility] UREA REDUCTION RATIO (%) 70 >=65 % [facility] Kt/V, Standard 1.46(L) >=2.0 [facility] 03/08/2024 3:00 AM EST 03/11/2024 1:30 PM EST Bradley Pena MD LAB BLOOD ORDERABLES Final Re sult Performing Organization Address [facility] de Phone Number [facility] [address] [place] [address] * Collection Date (03/08/2024 3:00 AM EST) Collection Date See Comment [facility] Comment: Patient sample received may exceed specimen stability, based on the collection date electronically provided. ??When reviewing patient results, verify collection information and consider specimen stability before acting on any critical or panic results. 03/08/2024 3:00 AM EST Bradley Pena MD LAB [id number] SOLICITED RESULTS Final Result Performing Organization Address [facility] de Phone Number [facility] [address] [place] [address] * (ABNORMAL) Hemoglobin (02/19/2024 3:00 AM EST) Hgb 7.4(L) 13.7 - 17.5 g/dL [facility] Hemoglobin x 3 22.2(L) 41.1 - 52.5 g/dL [facility] 02/19/2024 3:00 AM EST 02/20/2024 2:13 PM EST Bradley Pena MD LAB BLOOD ORDERABLES Final Re sult Performing Organization Address [facility] Co de Phone Number [facility]PS [facility] [address] [place] [address] * Unspun Tube (02/12/2024 3:00 AM EST) Unspun Tube [place] [facility] Comment:Received uncentrifug ed specimen. Unable to perform testing. 02/12/2024 3:00 AM EST Bradley Pena MD LAB [id number] SOLICITED RESULTS Final Result Performing Organization Address City/[facility]/ZIP Co de Phone Number [facility]PS [facility] [address] [place] [address] * Occult blood x 3, stool (12/08/2021) Occult Blood, Stool #1 Positive Negative [facility] Comment: Performed by [facility]. Occult Blood, Stool #2 Positive Negative [facility] Comment: Performed by [facility]. Occult Blood, Stool #3 Positive Negative [facility] Comment: Performed by [facility]. Collection Time 400 [facility] 12/08/2021 12/09/2021 1:2 0 PM EDT Narrative [facility] - 12/09/2021 Unless otherwise specified, test(s) performed at: [facility], [address] [place] [address] [employer]: Carroll Levy M.D. For any questions, please call customer service at FREQUENCY:OTHER Resulting Agency Comment Specimen source: Occult Blood Card Jose Conley MD LAB BODY FLUIDS AND STOOLS ORDER INOCENTE Final Result Performing Organization Address City/[facility] Co de Phone Number [facility] from Last 3 Months or Most Recently Relevant to Health Maintenance Insurance MEDICARE [facility] MEDICARE [facility] Care Teams Assistant Professor Of Philosophy Relationship Specialty Start Date End Date Anshu Ulloa MD [address] [place] [phone] (Work) PCP - General 04/13/20
--- OUTSIDE RECORDS SUMMARY | 2024-04-30 05:37 | XMS_ITS ---
Author Organization Unknown Address [address] [place] [phone] Phone Care Team Providers Care Enologist Name Role Phone RONI FERRER Registered Nurse Unavailable ESTHER HALL Registered Nurse Unavailab danya [place] Attending Unavailable Results GLUCOSE FINGER/HEEL CAPILLAR Y - Collect Date/Time: 03/04/2022 00:37 [facility] ID: [id number] [address] [place] [address], [id number] LOINC: 15885-7 Test Value Unit Reference Range Code Code System Flag GLUCOSE CAP 91 mg/dL L=70 H=116 Social History Type Status Start Date End Date Code Code Syst em Sex Male Vital Signs Vital Sign Value Unit [place] Value [place] Unit Date/Time Recent/Initial? Code Code System Body Mass Index 30.92 kg/m2 03/04/2022 00:25 Initial 52534 -5 LOINC Systolic Blood Pressure 163 mm[Hg] 03/04/2022 00:25 Initial 8480- 6 LOINC Diastolic Blood Pressure 100 mm[Hg] 03/04/2022 00:25 Initial 8462- 4 LOINC Body Surface Area 2.29 m2 03/04/2022 00:25 Initial 3140- 1 LOINC Height 182.880 0 cm 72.00 in 03/04/2022 00:25 Initial 8302- 2 LOINC O2 Saturation 100 % 2021 07:55 Most Recent 60947 -5 LOINC O2 Saturation 100 % 2021 00:25 Initial 21002 -5 LOINC Pulse 80.0 /min 03/04/2022 07:55 Most Recent 8867- 4 LOINC Pulse 78.0 /min 03/04/2022 00:25 Initial 8867- 4 LOINC Respiration 18 /min 03/04/20 07:55 Most Recent 9279- 1 [facility] Respiration 20 /min 03/04/20 00:25 Initial 9279- 1 LOINC Temperature 35.4 Hoa 95.7 F 03/04/20 00:25 Initial 8310- 5 LOINC Weight 103.42 kg 228.00 lbs 03/04/2022 00:25 Initial 30487 -7 [facility] Hospital Discharge Instructions Should you have any questions prior to discharge, please contact a member of your healthcare team. If you have left the hospital and have any questions, please contact your primary care physician. Reason For Referral No Data Found Problems Problem Start Date Resolved Date Status Code Code System TREMOR 03/04/2022 resolved 40805730 SNOMED-CT BIPOLAR DISORDER 03/04/2022 resolved 42551275 SN OMED-CT RENAL DIALYSIS 03/04/2022 resolved 468987033 SNOM ED-CT Allergies and Adverse Reactions Allergy Substance Reaction Severity Start Date Concern Status Co de Code System No Known Drug Allergies Active 349819087 SNOMED-CT Plan of Treatment No Data Found Encounters Encounter Diagnosis Start Date Code Code Sys tem Encounter for general psychi atric examination, requested by authority 03/04/2022 SNOMED-CT Personal Care Team Section Performer Name Performer Role Active Date Inactive Da te
--- OUTSIDE RECORDS SUMMARY | 2024-04-30 05:37 | XMS_ITS | Encounter Summary ---
Author Organization [facility] Address [address] [place] [phone] Phone Care Team Providers Care Assembler Tester Name Role Phone Anshu Ulloa MD Primary Care Provider [phone] Reason for Visit * Reason Comments Med Refill Encounter Details Date Type Department Care Team (Late st Contact Info) Description 04/19/2024 Refill [facility]. [address] [phone] Bradley Pena MD [address] [phone] Social History Tobacco Use Types Packs/Day Years Used Date Smoking Tobacco: Never Alcohol Use Standard Drinks/Week Comments No 0 (1 standard drink = 0.6 oz pur e alcohol) Sex and Gender Information Value Date Recorded Sex Assigned at Not on file Legal Sex Male 5:01 PM EST Gender Identity Not on file Sexual Orientation Not on file documented as of this encounter Plan of Treatment Not on file documented as of this encounter Procedures Procedure Name Priority Date/Time Associated Diagnosis Comments LIH (HC) Routine 04/26/2024 3:00 AM EST CALCIUM, ADJUSTED W ALBUMIN Routine 04/26/2024 3:00 AM EST HEMOGLOBIN AND HEMATOCRIT, BLOOD Routine 04/26/2024 3:00 AM EST PHOSPHATE ( PHOSPHORUS) Routine 04/26/2024 3:00 AM EST CONFIRMATION TEST HCV Routine 04/19/2024 3:00 AM EST LIH (HC) Routine 04/19/2024 3:00 AM EST KT/V NATURAL LOG, URR (HC) Routine 04/19/2024 3:00 AM EST CALCIUM PHOSPHORUS PRODUCT, ADJUSTED (HC) Routine 04/19/2024 3:00 AM EST HEPATITIS C ABS W/REFLEX RNA DETECTR Routine 04/19/2024 3:00 AM EST HEPATITIS B SURFACE ANTIGEN W/REFL CONFIRM Routine 04/19/2024 3:00 AM EST TRANSFERRIN SATURATION Routine 3:00 AM EST HEPATITIS B CORE AB TOTAL Routine 04/19/2024 3:00 AM EST ALUMINUM LEVEL Routine 04/19/2024 3:00 AM EST VITAMIN D 25 HYDROXY Routine 04/19/2024 3:00 AM EST HEPATITIS B SURFACE ANTIBODY QUANT Routine 04/19/2024 3:00 AM EST CBC AND DIFFERENTIAL Routine 04/19/2024 3:00 AM EST URIC ACID Routine 04/19/2024 3:00 AM EST ALT Routine 04/19/2024 3:00 AM EST AST Routine 04/19/2024 3:00 AM EST PROTEIN, TOTAL, SERUM Routine 04/19/2024 3:00 AM EST ALKALINE PHOSPHATASE Routine 04/19/2024 3:00 AM EST PTH, INTACT Routine 04/19/2024 3:00 AM EST MAGNESIUM Routine 04/19/2024 3:00 AM EST LACTATE DEHYDROGENASE Routine 04/19/2024 3:00 AM EST GLUCOSE, RANDOM Routine 04/19/2024 3:00 AM EST FERRITIN Routine 04/19/2024 3:00 AM EST CREATININE, SERUM Routine 04/19/2024 3:0 0 AM EST BILIRUBIN, TOTAL Routine 04/19/2024 3:00 AM EST LIPID PANEL Routine 04/19/2024 3:00 AM EST ELECTROLYTE PANEL Routine 04/19/2024 3:0 0 AM EST documented in this encounter Results * Phosphorus (04/26/2024 3:00 AM EST) Phosphorus, Serum 4.6 2.5 - 5.0 mg/dL [facility] 04/26/2024 3:00 AM EST 04/27/2024 2:17 PM EST Bradley Pena MD LAB BLOOD ORDERABLES Final Re sult Performing Organization Address City/[facility] Co de Phone Number [facility] [address] [place] [address] * (ABNORMAL) Calcium, Adjusted w Albumin (04/26/2024 3:00 AM EST) Calcium 10.1 8.6 - 10.3 mg/dL [facility] Albumin 3.6 3.6 - 5.4 g/dL [facility] Calcium, Adjusted Total 10.4(H) 8.6 - 10.3 mg/dL [facility] 04/26/2024 3:00 AM EST 04/27/2024 2:17 PM EST us Bradley Pena MD LAB BLOOD ORDERABLES Final Re sult Performing Organization Address City/State/[facility] de Phone Number [facility] [address] [place] [address] * LIH (04/26/2024 3:00 AM EST) Lipemia Normal Normal [facility] Icterus Normal Normal [facility] Hemolysis Normal Normal [facility] 04/26/2024 3:00 AM EST 04/27/2024 2:17 PM EST Bradley Pena MD LAB [id number] SOLICITED RESULTS Final Result Performing Organization Address [facility] de Phone Number [facility] [address] [place] [address] * (ABNORMAL) Hemoglobin and hematocrit (04/26/2024 3:00 AM EST) Hgb 7.2(L) 13.7 - 17.5 g/dL [facility] Hematocrit 22.6(L) 40.1 - 51.0 % [facility] Hemoglobin x 3 21.6(L) 41.1 - 52.5 g/dL [facility] 04/26/2024 3:00 AM EST 04/27/2024 2:17 PM EST Bradley Pena MD LAB BLOOD ORDERABLES Final Re sult Performing Organization Address [facility] de Phone Number [facility] [address] [place] [address] * Aluminum level (04/19/2024 3:00 AM EST) Aluminum 16 1 - 20 ug/L [facility] 04/19/2024 3:00 AM EST 04/20/2024 2:07 PM EST Bradley Pena MD LAB BLOOD ORDERABLES Final Re sult Performing Organization Address [facility] de Phone Number [facility] [address] [place] [address] * Hepatitis B Core Antibody, Total (04/19/2024 3:00 AM EST) Pathologist [facility] HBc Total Ab, S Negative Negative [facility] 04/19/2024 3:00 AM EST 04/20/2024 2:13 PM EST us Bradley Pena MD LAB BLOOD ORDERABLES Final Re sult Performing Organization Address [facility] de Phone Number [facility] [address] [place] [address] * HEPATITIS C ABS W/REFLEX RNA DETECTR (04/19/2024 3:00 AM EST) Pathologist [facility] Hep C Virus Ab Non-Reacti ve Non-Reacti ve [facility] 04/19/2024 3:00 AM EST 04/20/2024 2:13 PM EST us Bradley Pena MD LAB [id number] SOLICITED RESULTS Final Result Performing Organization Address [facility] de Phone Number [facility] [address] [place] [address] * Confirmation Test HCV (04/19/2024 3:00 AM EST) Pathologist [facility] Hep C Ab Confirmation Not needed [facility] 04/19/2024 3:00 AM EST 04/20/2024 2:11 PM EST us Bradley Pena MD LAB BLOOD ORDERABLES Final Re sult Performing Organization Address [facility] de Phone Number [facility] [address] [place] [address] * (ABNORMAL) Ferritin (04/19/2024 3:00 AM EST) Pathologist [facility] Ferritin 1,698(H) 22 - 322 ng/mL [facility] 04/19/2024 3:00 AM EST 04/20/2024 2:13 PM EST us Bradley Pena MD LAB BLOOD ORDERABLES Final Re sult Performing Organization Address [facility] de Phone Number [facility] [address] [place] [address] * Hepatitis B Surface Ag w/Reflex Confirmation (04/19/2024 3:00 AM EST) Pathologist [facility] Hep B Surface Antigen Negative Negative [facility] 04/19/2024 3:00 AM EST 04/20/2024 2:13 PM EST Bradley Pena MD LAB BLOOD ORDERABLES Final Re sult Performing Organization Address [facility] Co de Phone Number APS ASCMELVIN [facility] [address] [place] [address] * (ABNORMAL) TSAT (04/19/2024 3:00 AM EST) Pathologist [facility] Iron 67 65 - 175 ug/dL [facility] Transferrin 142(L) 215 - 365 mg/dL [facility] TIBC 199(L) 211 - 406 ug/dL [facility] Iron Saturation (TSat) 34 22 - 52 % [facility] 04/19/2024 3:00 AM EST 04/20/2024 2:13 PM EST Bradley Pena MD LAB BLOOD ORDERABLES Final Re sult Performing Organization Address [facility] de Phone Number APS RADHA [facility] [address] [place] [address] * Uric Acid (04/19/2024 3:00 AM EST) Pathologist [facility] Uric Acid 5.0 4.4 - 7.6 mg/dL [facility] 04/19/2024 3:00 AM EST 04/20/2024 2:13 PM EST Bradley Pena MD LAB BLOOD ORDERABLES Final Re sult Performing Organization Address [facility] de Phone Number SHELLI ASCMELVIN [facility] [address] [place] [address] * (ABNORMAL) Protein, total (04/19/2024 3:00 AM EST) Pathologist [facility] Total Protein 6.2(L) 6.4 - 8.9 g/dL [facility] 04/19/2024 3:00 AM EST 04/20/2024 2:13 PM EST us Bradley Pena MD LAB BLOOD ORDERABLES Final Re sult [facility] [address] [place] [address] * (ABNORMAL) Lipid panel (04/19/2024 3:00 AM [...] ORDERABLES Final Re sult Performing Organization Address [facility] Co de Phone Number [facility] [address] [place] [address] * (ABNORMAL) Electrolyte panel (04/19/2024 3:00 AM EST) Sodium 132(L) 136 - 145 mEq/L [facility] Potassium 4.5 3.4 - 5.0 mEq/L [facility] Chloride 97(L) 98 - 107 mEq/L [facility] Bicarbonate (CO2) 26 21 - 31 mEq/L [facility] Anion Gap 9 3 - 14 mEq/L [facility] 04/19/2024 3:00 AM EST 04/20/2024 2:13 PM EST Bradley Pena MD LAB BLOOD ORDERABLES Final Re sult Performing Organization Address [facility] de Phone Number [facility] [address] [place] [address] * Magnesium (04/19/2024 3:00 AM EST) Magnesium 2.2 1.9 - 2.7 mg/dL [facility] 04/19/2024 3:00 AM EST 04/20/2024 2:13 PM EST Bradley Pena MD LAB BLOOD ORDERABLES Final Re sult Performing Organization Address [facility] de Phone Number [facility] [address] [place] [address] * Lactate dehydrogenase (04/19/2024 3:00 AM EST) LDH 168 120 - 246 U/L [facility] 04/19/2024 3:00 AM EST 04/20/2024 2:13 PM EST Bradley Pena MD LAB BLOOD ORDERABLES Final Re sult Performing Organization Address [facility] Co de Phone Number [facility] [address] [place] [address] * LIH (04/19/2024 3:00 AM EST) Lipemia Normal Normal [facility] Icterus Normal Normal [facility] Hemolysis Normal Normal [facility] 04/19/2024 3:00 AM EST 04/20/2024 2:13 PM EST Bradley Pena MD LAB [id number] SOLICITED RESULTS Final Result Performing Organization Address [facility] de Phone Number [facility] [address] [place] [address] * Glucose, random (04/19/2024 3:00 AM EST) Glucose 86 74 - 109 mg/dL [facility] 04/19/2024 3:00 AM EST 04/20/2024 2:13 PM EST Bradley Pena MD LAB BLOOD ORDERABLES Final Re sult Performing Organization Address [facility] de Phone Number [facility] [address] [place] [address] * (ABNORMAL) Creatinine, serum (04/19/2024 3:00 AM EST) Creatinine 7.29(H) 0.70 - 1.30 mg/dL [facility] 04/19/2024 3:00 AM EST 04/20/2024 2:13 PM EST Bradley Pena MD LAB BLOOD ORDERABLES Final Re sult Performing Organization Address [facility] de Phone Number [facility] [address] [place] [address] * AST (04/19/2024 3:00 AM EST) AST (SGOT) <8 <34 U/L [facility] 04/19/2024 3:00 AM EST 04/20/2024 2:13 PM EST Bradley Pena MD LAB BLOOD ORDERABLES Final Re sult Performing Organization Address [facility] de Phone Number [facility] [address] [place] [address] * (ABNORMAL) ALT (04/19/2024 3:00 AM EST) ALT (SGPT) <7(L) 10 - 49 U/L [facility] 04/19/2024 3:00 AM EST 04/20/2024 2:13 PM EST Bradley Pena MD LAB BLOOD ORDERABLES Final Re sult Performing Organization Address [facility] de Phone Number [facility] [address] [place] [address] * Bilirubin, total (04/19/2024 3:00 AM EST) Total Bilirubin 0.3 0.3 - 1.2 mg/dL [facility] 04/19/2024 3:00 AM EST 04/20/2024 2:13 PM EST Bradley Pena MD LAB BLOOD ORDERABLES Final Re sult Performing Organization Address [facility] de Phone Number [facility] [address] [place] [address] * Alkaline phosphatase (04/19/2024 3:00 AM EST) Alkaline Phosphatase 56 46 - 116 U/L [facility] 04/19/2024 3:00 AM EST 04/20/2024 2:13 PM EST Bradley Pena MD LAB BLOOD ORDERABLES Final Re sult Performing Organization Address [facility] de Phone Number [facility] [address] [place] [address] * (ABNORMAL) Calcium Phosphorus Product, Adjusted (04/19/2024 3:00 AM EST) Albumin 3.8 3.6 - 5.4 g/dL [facility] Calcium 10.2 8.6 - 10.3 mg/dL [facility] Phosphorus, Serum 5.7(H) 2.5 - 5.0 mg/dL [facility] Ca*PO4 58.1(A) <55.0 mg2/dL2 [facility] Calcium, Adjusted Total 10.4(H) 8.6 - 10.3 mg/dL [facility] CA*PO4 CORRCTD 59.3(A) <55.0 mg2/dL2 [facility] 04/19/2024 3:00 AM EST 04/20/2024 2:13 PM EST Bradley Pena MD LAB [id number] SOLICITED RESULTS Final Result Performing Organization Address [facility] de Phone Number [facility] [address] [place] [address] * Hepatitis B Surface Antibody (04/19/2024 3:00 AM EST) Hep B Surface Antibody 28 mIU/mL [facility] Comment: Interpretation: <10: No Immunity >=10: Probable Immunity 04/19/2024 3:00 AM EST 04/20/2024 2:13 PM EST Bradley Pena MD LAB BLOOD ORDERABLES Final Re sult Performing Organization Address [facility] Phone Number [facility] [address] [place] [address] * Vitamin D 25 Hydroxy (04/19/2024 3:00 AM EST) Vitamin D, 25-Hydroxy 57 30 - 100 ng/mL [facility] Comment: Status ? Adult ?? Pediatric Deficient: ? <20 ? <15 Insufficient: ??20-29 ?? 15-19 Sufficient: ?30-100 ??20-100 04/19/2024 3:00 AM EST 04/20/2024 2:13 PM EST Bradley Pena MD LAB BLOOD ORDERABLES Final Re sult Performing Organization Address [facility] de Phone Number [facility] [address] [place] [address] * PTH, Intact (04/19/2024 3:00 AM EST) PTH, Intact 290 160 - 721 pg/mL [facility] Comment: Suggested (KDIGO) ESRD maintenance range is two to nine times the upper normal limit (80.1 pg/mL) for the laboratory. 04/19/2024 3:00 AM EST 04/20/2024 2:13 PM EST us Bradley Pena MD LAB BLOOD ORDERABLES Final Re sult Performing Organization Address City/[facility] Co de Phone Number [facility] [address] [place] [address] * (ABNORMAL) CBC and Differential (04/19/2024 3:00 AM EST) Pathologist [facility] DIFFERENTIAL MANUAL, 2 Not Indicated [facility] White [...] ORDERABLES Final Re sult Performing Organization Address [facility] Co de Phone Number [facility] [address] [place] [address] * (ABNORMAL) Kt/V Natural Log, URR (04/19/2024 3:00 AM EST) Treatment Time 182 min [facility] Pre-Weight, lb [...] 2:00 PM EST Bradley Pena MD LAB [id number] SOLICITED RESULTS Final Result Performing Organization Address [facility] Co de Phone Number [facility] [address] [place] [address] documented in this encounter Visit Diagnoses Not on filedocumented in this encounter Care Teams Assembler Tester Relationship Specialty Start Date End Date Anshu Ulloa MD [address] [place] [phone] PCP - General 04/13/20 documented as of this encounter
--- OUTSIDE RECORDS SUMMARY | 2024-04-30 05:37 | XMS_ITS | Clinical Summary ---
Author Organization [facility] [place] Address [address] [place] [address] Phone Care Team Providers Care Assembler Name Role Phone Brooke Meza Primary Care Provider + Allergies No known active allergies Medications Medication Sig Dispensed Refills Start Date End Date Status sevelamer carbonate (RENVELA) 800 mg tablet Take 1 tablet (800 mg total) by mouth 3 (three) times a day with meals. After snacks 02/28/2023 Active benztropine (COGENTIN) 1 mg tablet Take 2 tablets (2 mg total) by mouth 2 (two) times a day. 01/04/2022 Active thiothixene (NAVANE) 5 mg capsule Take 3 capsules (15 mg total) by mouth 1 (one) time each day. 12/08/2021 Active cholecalciferol (VITAMIN D-3) 1,250 mcg (50,000 unit) capsule Take 1 capsule by mouth every 30 days. Active divalproex (DEPAKOTE ER) 500 mg 24 hr tablet Take 2 Tablets by mouth at bedtime. 12/17/2020 Active metoprolol succinate (TOPROL-XL) 25 mg 24 hr tablet Take 25 mg by mouth daily. - Oral Do not crush or chew. Active ARIPiprazole (ABILIFY) 20 mg tablet Take 1 tablet (20 mg total) by mouth 1 (one) time each day. Active ARIPiprazole (ABILIFY) 5 mg tablet Take 1 tablet (5 mg total) by mouth 1 (one) time each day. Active torsemide (DEMADEX) 20 mg tabletIndication s:Chronic heart failure with preserved ejection fraction (HFpEF) ([facility]) Take 1 tablet (20 mg total) by mouth 2 (two) times a day. 90 each 2 03/07/2024 Active apixaban (ELIQUIS) 2.5 mg tablet Take 1 tablet (2.5 mg total) by mouth 2 (two) times a day. Take 2.5 mg by mouth daily. - Oral 180 tablet 2 03/26/2024 Active [place] Caps 1 mg capsule TAKE ONE CAPSULE BY MOUTH ONCE DAILY 90 capsule 1 04/18/2024 Active B complex-vitamin C-folic acid (NEPHROCAPS) 1 mg capsule Take 1 Capsule by mouth daily. 10/07/2023 04/18/2024 Discontinued Active Problems Problem Noted Date Diagnosed Date Unspecified atrial fibrillation 03/08/2024 Acute systolic (congestive) heart failure 2023 Nonrheumatic aortic (valve) stenosis 03/08/2024 Bipolar disorder, unspecified 03/08/2024 End stage renal disease 03/08/2024 Dependence on renal dialysis 03/08/2024 Ascending aorta dilation 03/07/2024 Assessment & Plan (03/07/2024 4:22 PM EST): Ascending aorta noted to be dilated at 4.5 cm and most recent echocardiogram. Will continue to monitor with yearly echocardiograms for surveillance of progression. S/P TAVR (transcatheter aortic valve replacement ) 02/18/2024 Assessment & Plan (03/07/2024 4:10 PM EST): Patient has severe aortic stenosis status post TAVR completed 01/08/2024. He states that post TAVR his exertional dyspnea has greatly improved. He denies any chest discomfort. He continues on Eliquis 2.5 mg twice daily. Aspirin was discontinued due to his increased risk of bleeding with history of falls and anemia. His anemia continues to be closely monitored by his nephrology team. He is aware of the need for prophylactic antibiotics prior to any dental procedure. He continues with cardiac rehab and states this is going well. Assessment & Plan (02/18/2024 11:48 AM EST): Post TAVR echocardiogram pending because of his hospital admission, he missed his appointment. Requested office to reschedule the echocardiogram TIFFANY. Advised him for antibiotic prophylaxis prior to any dental workup. Bilateral leg edema 02/18/2024 Assessment & Plan (02/18/2024 11:48 AM EST): Exact etiology is not clear to me but could be due to variety of reasons including chronic illness, volume status particularly being admitted to the hospital multiple times, end-stage renal disease. He still makes urine despite hemodialysis. I ordered torsemide 40 mg p.o. twice daily for 5 days followed by 40 mg daily. We will reevaluate him in couple of weeks. Aortic stenosis 01/26/2024 Assessment & Plan (02/18/2024 11:48 AM EST): Patient underwent TAVR in 2023. Currently on Eliquis which should be sufficient. Discontinued aspirin considering multiple fall and hematoma as well as ongoing anemia issues. Paroxysmal atrial fibrillation 01/26/2024 Assessment & Plan (03/08/2024 10:43 AM EST): Patient has history of paroxysmal atrial fibrillation. He continues on metoprolol for rate control and with Eliquis for anticoagulation. His last ECG showing normal sinus rhythm. Heart rate is regular on exam today. It is noted that patient is on a reduced dose of Eliquis 2.5 mg twice daily. Based on his age, weight and kidney function it would be recommended that he be on 5 mg twice daily. Reviewed hospitalization from 2022 when he started with A-fib, it appears this was the first dose recommended yet due to his tendency for bleeding after dialysis and his reluctance he began on the reduced dose. Discussed this with the , and with recent bleeding episodes and anemia will continue on this dose yet will revisit this at his next visit. Assessment & Plan (02/18/2024 11:48 AM EST): Currently in normal sinus rhythm. Currently on Eliquis 2.5 mg twice daily. Orders: ECG 12 lead Haptoglobin; Future Haptoglobin Lactate dehydrogenase; Future Lactate dehydrogenase Chronic heart failure with p reserved ejection fraction (HFpEF) 01/26/2024 Assessment & Plan (03/07/2024 4:10 PM EST): Patient has lower extremity edema on exam today. His weight is stable at this time and he denies any dyspnea. He has been taking torsemide 20 mg once daily. Will increase to torsemide 20 mg twice daily which was previously advised by Dr. Wilkinson. Advised patient to utilize compression stockings. He has close lab monitoring completed with his nephrology team. He goes for dialysis tomorrow. I've asked the patient to call if they develop worsening symptoms of heart failure such as increased shortness of breath, new or worsening cough, increased swelling in the legs or ankles, or weight gain of more than 2 pounds in one day or 4 pounds in one week. Orders: torsemide (DEMADEX) 20 mg tablet; Take 1 tablet (20 mg total) by mouth 2 (two) times a day. Assessment & Plan (02/18/2024 11:48 AM EST): Post TAVR echocardiogram will also help us to delineate current left ventricular function but previous echocardiogram indicated diastolic dysfunction only. Not sure whether leg edema has anything to do with it or just volume overload with recent hospital admission and history of end-stage renal disease with twice weekly dialysis only (patient's preference). As mentioned above, ordered torsemide and will reevaluate. Bipolar 1 disorder 11/08/2017 CKD (chronic kidney disease) stage 4, GFR 15-29 ml/min 11/08/2017 Hyperlipidemia 11/08/2017 Hypertension 11/08/2017 Assessment & Plan (03/07/2024 4:10 PM EST): Blood pressure is slightly elevated today 140/60, he comes with a blood pressure log from cardiac rehab which shows he is typically in good control with most blood pressures systolic 120s over 60s. He is due for dialysis tomorrow, so do not believe medications need to be adjusted at this time. Will continue to monitor closely. Anemia 07/08/2016 Assessment & Plan (02/18/2024 11:48 AM EST): Anemia etiology is not very clear. It could be anemia of chronic disease in the presence of end-stage renal disease. Other possibilities are hemolytic anemia in presence of TAVR valve with some degree of paravalvular leak. But the haptoglobin level is within normal limit. LDH is elevated which could be due to his recent fall and hematoma. May even need a peripheral smear evaluation by battery charger for schistocytes if suspicion for hemolytic anemia still persist. Will closely follow-up his labs and decide upon that. Tremor 04/14/2016 Hemorrhoids 06/10/2015 Overview (01/26/2024): External Encounters Date Type Department Care Team Description 03/26/2024 Telephone [facility] [address] [place] [address] Juanito Wilkinson MD med refill 03/25/2024 Telephone [facility] [address] [place] [address] Juanito Wilkinson MD Med Refill 03/08/2024 Billing Patient Not Present [facility] [place] [address] [place] [phone] Brooke Meza PA Atrial fibrillation, unspecified type (CMS/HCC) (Primary Dx); Acute systolic (congestive) heart failure (CMS/HCC); Nonrheumatic aortic (valve) stenosis; Bipolar affective disorder, remission status unspecified (CMS/HCC); End stage renal disease (CMS/HCC); Dependence on renal dialysis (CMS/HCC) 03/07/2024 2:40 PM EST Office Visit [facility] [address] [place] [address] Brina Hyde NP Chronic heart failure with preserved ejection fraction (HFpEF) (CMS/HCC) (Primary Dx); S/P TAVR (transcatheter aortic valve replacement); Paroxysmal atrial fibrillation (CMS/HCC); Hypertension, unspecified type; Ascending aorta dilation (CMS/HCC) 03/07/2024 Telephone [facility] - [place] [address] [place] [address] Manuela Santiago MA Request For Order(s) (Nina Sharma Order #[id number]/) 03/04/2024 Telephone [facility] [address] [place] [phone] Juanito Wilkinson MD ECHO results 02/22/2024 12:30 PM EST Ancillary Procedure [facility] [address] [place] [phone] Severe aortic valve stenosis 02/22/2024 Telephone Internal Medicine [facility] [address] [place] [address] Manuela Santiago MA Request For Order(s) (Elara Caring Cert 02/22/24-04/21/24/Plan Of Care /) 02/16/2024 1:30 PM EST Office Visit [facility] [address] [place] [phone] Juanito Wilkinson MD Anemia, unspecified type (Primary Dx); Bilateral leg edema; S/P TAVR (transcatheter aortic valve replacement); Nonrheumatic aortic valve stenosis; Paroxysmal atrial fibrillation ([facility]/HCC); Chronic heart failure with preserved ejection fraction (HFpEF) ([facility]) 02/16/2024 Telephone [facility] - [address] [place] [phone] Richard Gregorio MA Other (Add RFV) (Echo needed) 02/14/2024 Telephone [facility] [address] [place] [phone] Juanito Wilkinson MD lab work 02/12/2024 Telephone [facility] [address] [place] [phone] Juanito Wilkinson MD Lab work 02/12/2024 Telephone [facility] - [place] [address] [place] [phone] Brooke Meza PA Melonie, pain Medication 02/06/2024 11:45 PM EST - 02/07/2024 4:47 AM EST Emergency [facility] Emergency [address] [place] [address] Basilio Kilgore MD Intramuscular hematoma (Primary Dx); Symptomatic anemia Discharge Disposition: Another Health Care Institution Not Defined 02/06/2024 Telephone [facility] - [address] [place] [address] Eric Pennington MD from Last 3 Months Surgical History Surgery Date Site/Laterality Comments EYE SURGERY 2016 Bilateral PROCEDURE: HISTORICAL EYE SURGERY; COMMENT: cataracts - Dr. Reyes COLONOSCOPY 04/30/2013 PROCEDURE: HISTORICAL COLONOSCOPY; COMMENT: repeat 5 years, Dr. Cortes AORTIC VALVE REPLACEMENT 01/08/2024 PROCEDURE: HISTORICAL AORTIC VALVE REPL; COMMENT: TAVR Dr. Wilkinson at [facility] due to Medical History Medical History Date Comments CKD (chronic kidney disease) stage 4, GFR 15-29 ml/min ([facility]) 11/08/2017 DX:CKD (chronic kidney dise ase) stage 4, GFR 15-29 ml/min ([facility]) Hyperlipidemia 11/08/2017 DX:Hyperlipidemi a Hypertension 11/08/2017 DX:Hypertension Tremor 04/14/2016 DX:Tremor Anemia 07/08/2016 DX:Anemia Bipolar 1 disorder ([facility]) 11/08/2017 DX: Bipolar 1 disorder ([facility]) Hemorrhoids 06/10/2015 DX:Hemorrhoids; COMMENT: External History of DVT (deep vein thrombosis) 11/08/2017 DX:History of DVT (deep vein thrombosis); COMMENT: Lower extremity Social History Tobacco Use Types Packs/Day Years Used Date Smoking Tobacco: Never Smokeless Tobacco: Never Alcohol Use Standard Drinks/Week Comments Not Currently 0 (1 standard drink = 0.6 oz pur e alcohol) Sex and Gender Information Value Date Recorded Sex Assigned at Male 01/24/2024 3:08 PM EDT Gender Identity Male 01/24/2024 3:08 PM EDT Sexual Orientation Straight 01/24/2024 3: 08 PM EDT Job Start Date Occupation Industry Not on file Not on file Not on file Obstetrics History Last Filed Vital Signs Vital Sign Reading Time Taken Comments Blood Pressure 140/60 03/07/2024 2:37 PM EST Pulse 66 03/07/2024 2:37 PM EST Temperature 37.1 ??C (98.8 ??F) 02/07/2024 4:24 AM ES T Respiratory Rate 18 02/06/2024 11:39 PM EST Oxygen Saturation 96% 03/07/2024 2:37 PM EST Inhaled Oxygen Concentration - - Weight 93.9 kg (207 lb) 03/07/2024 2:37 PM EST Height 182.9 cm (6') 03/07/2024 2:37 PM EST Body Mass Index 28.07 03/07/2024 2:37 PM EST Plan of Treatment Upcoming Encounters Date Type Department Care Team (Late st Contact Info) Description 05/29/2024 1:40 PM EST Office Visit [facility] [place] [phone] Brina Hyde NP [address] [place] [address] [place] [address] Health Maintenance Due Date Last Done Comments Pneumococcal Vaccine: 65+ Years (1 of 2 - PCV) 1959 DTaP,Tdap,and Td Vaccines (1 - Tdap) 01/21/1972 Zoster Vaccines (1 of 2) 2003 RSV Immunization Patients 60 + Years Old (1 - Risk 60-74 years 1-dose series) 2013 COVID-19 Vaccine (3 - Modern a risk series) 07/22/2020 06/24/2020, 05/13/2020 Depression Screening 03/12/2022 Hepatitis C Screening 03/12/2022 Medicare Annual Wellness Visit 03/12/2022 Social Influencers of Health Screening 03/12/2022 Colorectal Cancer Screening: Stool Based Tests (FOBT/FIT) 12/08/2022 12/08/2021 Influenza Vaccine (#1) 2023 Cholesterol Screening (Lipid Panel) 04/02/2024 04/02/2019 Hypertension/CHF/CAD Annual BMP Blood Test 02/05/2025 02/06/2024, 02/06/2024, 04/04/2018 Falls Risk Assessment 02/06/2025 02/07/2024 HIB Vaccines Aged Out No longer eligi ble based on patient's age to complete this topic HPV Vaccines Aged Out No longer eligi ble based on patient's age to complete this topic Hepatitis A Vaccines Aged Out No long er eligible based on patient's age to complete this topic Hepatitis B Vaccines Aged Out No long er eligible based on patient's age to complete this topic IPV Vaccines Aged Out No longer eligi ble based on patient's age to complete this topic MMR Vaccines Aged Out No longer eligi ble based on patient's age to complete this topic Meningococcal ACWY Vaccine Aged Out N o longer eligible based on patient's age to complete this topic RSV Immunization Patients Under 20 months Aged Out No longer eligible b ased on patient's age to complete this topic Varicella Vaccines Aged Out No longer eligible based on patient's age to complete this topic Procedures Procedure Name Priority Date/Time Associated Diagnosis Comments TRANSTHORACIC ECHOCARDIOGRAM (TTE) COMPLETE Routine 02/22/2024 12:59 PM EST Severe aortic valve stenosis LACTATE DEHYDROGENASE Routine 02/16/2024 3:18 PM EST HAPTOGLOBIN Routine 02/16/2024 3:18 PM EST ECG 12-LEAD Routine 02/16/2024 2:23 PM EST Paroxysmal atrial fibrillation (CMS/HCC) EXTERNAL CLINICAL LAB Routine 02/07/2024 2:35 PM EST PROTHROMBIN TIME WITH INR STAT 02/07/2024 4:[address] ABDOMEN PELVIS W CONTRAST STAT 02/07/2024 1:33 AM EST CBC WITH AUTO DIFFERENTIAL STAT 02/06/2024 11:11 PM EST TYPE AND SCREEN STAT 02/06/2024 11:11 PM EST COMPREHENSIVE METABOLIC PANEL STAT 02/06/2024 11:11 PM EST CBC AND DIFFERENTIAL STAT 02/06/2024 11:11 PM EST EXTERNAL CLINICAL LAB Routine 02/06/2024 4:27 PM EST BASIC METABOLIC PANEL Routine 02/06/2024 11:06 AM EST ..MORPHOLOGY Routine 02/06/2024 11:06 AM EST CBC WITH AUTO DIFFERENTIAL Routine 02/06/2024 11:06 AM EST LIPID PANEL Routine 04/02/2019 from Last 3 Months or Most Recently Relevant to Health Maintenance Results * (ABNORMAL) TRANSTHORACIC ECHOCARDIOGRAM (TTE) COMPLETE (02/22/2024 12:59 PM EST) Left Atrium Minor [place] 7.0 cm CV PACS Left Atrium Major [place] 6.7 cm CV PACS LA Area Sys (A2C) 30 cm2 CV PACS LA Area Sys (A4C) 26 cm2 CV PACS LA Volume (BP) 96 mL CV PACS RA Area 19.0 cm2 CV PACS RA 2D Volume 50 mL CV PACS AV Mean Gradient 15 mmHg CV PACS Ao VTI 55.8 cm CV PACS AV Peak Adonis 2.7 m/s CV PACS AV Peak Gradient 29 mmHg CV PACS Ascending Aorta 4.5 cm CV PACS IVC Proximal 2.2 cm CV PACS IVSD 1.1(A) 0.6 - 1.0 cm CV PACS LVIDD 6.3(A) 4.2 - 5.8 cm CV PACS LVIDS 3.9 2.5 - 4.0 cm CV PACS LVOT Mean Grad 3 mmHg CV PACS LVOT Peak VTI 26.8 cm CV PACS LVOT Mean Adonis 0.8 m/s CV PACS LVOT Peak Adonis 1.3 m/s CV PACS LVOT Peak Gradient 6 mmHg CV PACS LVPWD 1.1(A) 0.6 - 1.0 cm CV PACS MV E' Tissue Velocity Lateral 10 cm/s CV PACS MV E' Tissue Velocity Septal 7 cm/s CV PACS MV Deceleration [place] 3.4 m/s2 CV PACS E Wave Deceleration Time 458(A) 119 - 242 ms CV PACS MV PHT 134 ms CV PACS MV Peak A Adonis 1.66 m/s CV PACS MV Peak E Adonis 1.57 m/s CV PACS MV Mean Gradient 7 mmHg CV PACS MV VTI 74.4 cm CV PACS Mitral Valve Max Velocity 1.9 m/s CV PACS MV Peak Gradient 14 mmHg CV PACS MV Area PHT 1.6 cm2 CV PACS PV Acceleration Time 53 ms CV PACS PV Peak Velocity 0.9 m/s CV PACS PV Peak Gradient 4 mmHg CV PACS RV Diastolic Basal Dimension 3.9 2.5 - 4.1 cm CV PACS TAPSE 25 mm CV PACS E/E' Ratio Septal 22 CV PACS E/E' Ratio Averaged 19 CV PACS Relative Wall Thickness ratio 0.35 CV PACS LVOT:AV VTI Index 0.48 CV PACS FS 38 % CV PACS LV Mass 2D 304 g CV PACS Ascending Aorta Index 2.08 cm/m2 CV PACS MV VTI:LVOT VTI ratio 2.8 CV PACS RA 2D Volume Index 23 mL/m2 CV PACS LVIDD Index 2.92 cm/m2 CV PACS LVIDS Index 1.81 cm/m2 CV PACS AV Velocity Ratio 0.48 CV PACS E/A Ratio 0.9 CV PACS E/E' Ratio Lateral 16 CV PACS LA Volume Index (BP) 44 mL/m2 CV PACS LV Mass Index 2D 141 g/m2 CV PACS BSA 2.18 m2 CV PACS Est. RA Pressure 8 mmHg CV PACS Anatomical Region Laterality Modality Ultrasound Narrative 02/26/2024 6:18 PM EST ?Left ventricle cavity is mildly dilated. There is mild hypertrophy. Systolic function is normal with an ejection fraction of 60-65%. There are no regional LV wall motion abnormalities. There is grade I (mild) diastolic dysfunction and elevated left atrial pressure. ?Right ventricle cavity is normal. Right ventricular systolic function is normal. ?Left atrium is moderately dilated. ??Normal size of the right atrium. ?The valve has been surgically replaced. There is 26mm Evolut Fx bioprosthetic valve. There is trace paravalvular regurgitation. ?The ascending aorta is dilated (4.5 cm). ?IVC/SVC: RA pressures is estimated to be 8 mmHg (IVC diameter >21 mm and decreases >50% during inspiration). Left Ventricle Left ventricle cavity is mildly dilated. There is mild hypertrophy. Systolic function is normal with an ejection fraction of 60-65%. There are no regional LV wall motion abnormalities. There is grade I (mild) diastolic dysfunction and elevated left atrial pressure. Right Ventricle Right ventricle cavity appears normal. Systolic function is normal. Left Atrium Left atrium cavity is moderately dilated. Right Atrium Right atrium cavity is normal. IVC/SVC Inferior vena cava is dilated. RA pressures is estimated to be 8 mmHg (IVC diameter >21 mm and decreases >50% during inspiration). Mitral Valve The leaflets are mildly thickened. There is annular calcification. There is mild regurgitation. There is no evidence of mitral valve stenosis. Tricuspid Valve The tricuspid valve was not well visualized. There is trace regurgitation. There is no evidence of tricuspid valve stenosis. Aortic Valve The valve has been surgically replaced. There is 26mm Evolut Fx bioprosthetic valve. There is trace paravalvular regurgitation. Pulmonic Valve The pulmonic valve was not well visualized. Ascending Aorta The ascending aorta is dilated (4.5 cm). Pericardium There is a left pleural effusion. Study Details Overall the study quality was adequate. Juanito Wilkinson MD CV ECHO PROCEDURES * (ABNORMAL) Lactate dehydrogenase (02/16/2024 3:18 PM EST) LDH 309(H) 121 - 224 IU/L [facility] 1 02/16/2024 3:18 PM EST 02/16/2024 Narrative [facility] 1 - 02/17/2024 8:11 AM EST Performed at: ??01 - [facility] [address] ??[id number] Whipped Topping Mixer: Linda Barrow MD, Phone: ??[phone] Juanito Wilkinson MD LAB BLOOD ORDERABLES [facility] * Haptoglobin (02/16/2024 3:18 PM EST) Haptoglobin 74 34 - 355 mg/dL [facility] 1 02/16/2024 3:18 PM EST 02/16/2024 Narrative [facility] 1 - 02/17/2024 7:07 AM EST Performed at: ??01 - [facility] [address] ??[id number] Whipped Topping Mixer: Linda Barrow MD, Phone: ??[phone] Juanito Wilkinson MD LAB BLOOD ORDERABLES Performing Organization Address [facility] Co de Phone Number [facility] 1 * ECG 12 lead (02/16/2024 2:23 PM EST) Ventricular Rate ECG 63 BPM [facility] Atrial Rate 63 BPM [facility] P-R Interval 174 ms GEMUSE QRS Duration 96 ms GEMUSE Q-T Interval 418 ms GEMUSE QTc 427 ms GEMUSE P Wave Westpoint 53 degrees GEMUSE R [place]point 45 degrees GEMUSE T Westpoint 46 degrees GEMUSE ECG Interpretation Normal sinus rhythm Normal ECG When compared with ECG of 27-NOV-2000 08:29, T wave inversion no longer evident in Inferior leads Confirmed by JUANITO WILKINSON ([id number]) on 02/18/2024 10:54:36 AM [facility] 02/16/2024 2:23 PM EST 02/18/2024 10:54 AM EST Juanito Wilkinson MD ECG ORDERABLES Performing Organization Address [facility] Co de Phone Number [facility] * External clinical lab (02/07/2024 2:35 PM EST) Only the most recent of2 resultswithin the time period is included. Historical Provider LAB BLOOD ORDERAB LES * Prothrombin time with INR (02/07/2024 4:35 AM EST) Protime 11.9 10.6 - 13.9 sec LAB COAGULATION METHOD 02/07/2024 4:47 AM EST [facility] INR 1.0 LAB COAGULATION METHOD 02/07/2024 4:47 AM EST [facility] Blood Venous blood specimen / Unknown Venipuncture / Unknown 02/07/2024 4:35 AM EST 02/07/2024 4:39 AM EST Basilio Kilgore MD LAB BLOOD ORDERABLES [facility] [address] [place] [address], * CT Abdomen Pelvis w Contrast (02/07/2024 1:33 AM EST) Anatomical Region Laterality Modality Body Computed Tomogra phy 02/07/2024 2:13 AM EST Addenda Addendum by Aleisha Murphy MD on 02/07/2024 2:15 AM EST ADDENDUM: This report was discussed with Basilio Kilgore MD on Feb 07, 2024 02:15:00 EST. This document has been electronically signed by: Calista Mcfarland on 02/07/2024 02:15:05 Impressions 02/07/2024 2:13 AM EST Impression: 1. No acute intra-abdominal process. No retroperitoneal hematoma. 2. Large intramuscular right gluteal hematoma measuring 7 x 10.7 x 14 cm. Slight area of bright contrast density within the hematoma may indicate a small area of contrast extravasation and acute active hemorrhage. 3. No acute pelvic fracture. No acute hip fracture or dislocation. Moderate bilateral hip arthritis. 4. Small bilateral pleural fluid collections with adjacent lower lobe airspace disease that may represent atelectasis or pneumonia. 5. Small atrophic kidneys. Bilateral renal cysts including a mildly complex right renal cyst. No renal or ureteral calculi to suggest obstruction. 6. No colitis or diverticulitis. Moderate colonic fecal load 7. Enlarged prostate gland. This document has been electronically signed by: Aleisha Murphy MD on 02/07/2024 02:13:02 Narrative 02/07/2024 2:13 AM EST Exam: CT Abdomen and Pelvis contrast Comparison: None Clinical history: Retroperitoneal hematoma suspected Findings: Prior TAVR. Small bilateral pleural fluid collections with adjacent lower lobe airspace disease that may represent atelectasis or pneumonia. Liver is enlarged with small 1.2 cm hypodense well-defined lesion in the right lobe of the liver may represent cyst or hemangioma. The spleen and pancreas do not demonstrate any acute process. No gallstones or evidence for acute cholecystitis No choledocholithiasis or biliary obstruction. Normal adrenal glands. Small atrophic kidneys. Bilateral renal cysts. Complex cyst in the right kidney with peripheral calcification on image 88. No abdominal aortic aneurysm. No small bowel obstruction Appendix is normal in caliber No colitis or diverticulitis. Moderate colonic fecal load Urinary bladder does not demonstrate stones or wall thickening. Prostate gland is enlarged No free fluid Mild presacral edema. No retroperitoneal hematoma. Small fat containing left inguinal hernia Degenerative disc endplate and facet disease at L3-4 L4-5 and L5-S1. Edema in the subcutaneous fat surrounding the right hip. Large intramuscular right gluteal hematoma measuring 7 x 10.7 x 14 cm on axial image 175 and coronal image 77. Slight area of bright contrast density within the hematoma on axial image 181 and coronal image 77 may indicate a small area of contrast extravasation and acute active hemorrhage. No acute pelvic fracture. No acute hip fracture or dislocation. Moderate bilateral hip arthritis. Procedure Note Aleisha Murphy MD - 02/07/2024 Exam: CT Abdomen and Pelvis contrast Comparison: None Clinical history: Retroperitoneal hematoma suspected Findings: Prior TAVR. Small bilateral pleural fluid collections with adjacent lower lobe airspace disease that may represent atelectasis or pneumonia. Liver is enlarged with small 1.2 cm hypodense well-defined lesion in the right lobe of the liver may represent cyst or hemangioma. The spleen and pancreas do not demonstrate any acute process. No gallstones or evidence for acute cholecystitis No choledocholithiasis or biliary obstruction. Normal adrenal glands. Small atrophic kidneys. Bilateral renal cysts. Complex cyst in the right kidney with peripheral calcification on image 88. No abdominal aortic aneurysm. No small bowel obstruction Appendix is normal in caliber No colitis or diverticulitis. Moderate colonic fecal load Urinary bladder does not demonstrate stones or wall thickening. Prostate gland is enlarged No free fluid Mild presacral edema. No retroperitoneal hematoma. Small fat containing left inguinal hernia Degenerative disc endplate and facet disease at L3-4 L4-5 and L5-S1. Edema in the subcutaneous fat surrounding the right hip. Large intramuscular right gluteal hematoma measuring 7 x 10.7 x 14 cm on axial image 175 and coronal image 77. Slight area of bright contrast density within the hematoma on axial image 181 and coronal image 77 may indicate a small area of contrast extravasation and acute active hemorrhage. No acute pelvic fracture. No acute hip fracture or dislocation. Moderate bilateral hip arthritis. IMPRESSION: Impression: 1. No acute intra-abdominal process. No retroperitoneal hematoma. 2. Large intramuscular right gluteal hematoma measuring 7 x 10.7 x 14cm. Slight area of bright contrast density within the hematoma may indicatea small area of contrast extravasation and acute active hemorrhage. 3. No acute pelvic fracture. No acute hip fracture or dislocation. Moderate bilateral hip arthritis. 4. Small bilateral pleural fluid collections with adjacent lower lobe airspace disease that may represent atelectasis or pneumonia. 5. Small atrophic kidneys. Bilateral renal cysts including a mildly complex right renal cyst. No renal or ureteral calculi to suggest obstruction. 6. No colitis or diverticulitis. Moderate colonic fecal load 7. Enlarged prostate gland. This document has been electronically signed by: Aleisha Murphy MD on 02/07/2024 02:13:02 Scot Susan Kilgore MD IMG CT PROCEDURES * (ABNORMAL) CBC auto differential (02/06/2024 11:11 PM EST) Only the most recent of2 resultswithin the time period is included. WBC 5.0 4.8 - 10.8 K/mcL LAB HEMETOLOGY METHOD 02/06/2024 11:26 PM [facility] RBC 1.80(L) 4.50 - 5.50 M/mcL LAB HEMETOLOGY METHOD 02/06/2024 11:26 PM [facility] Hemoglobin 5.7(LL) 13.5 - 17.5 g/dL LAB HEMETOLOGY METHOD 02/06/2024 11:26 PM [facility] Hematocrit 18.4(LL) 42.0 - 54.0 % LAB HEMETOLOGY METHOD 02/06/2024 11:26 PM [facility] MCV 104.5(H) 79.0 - 98.0 FL LAB HEMETOLOGY METHOD 02/06/2024 11:26 PM [facility] MCH 32.4(H) 27.0 - 32.0 pcg LAB HEMETOLOGY METHOD 02/06/2024 11:26 PM [facility] MCHC 31.0(L) 32.0 - 37.0 g/dL LAB HEMETOLOGY METHOD 02/06/2024 11:26 PM [facility] RDW 18.6(H) 11.0 - 15.0 % LAB HEMETOLOGY METHOD 02/06/2024 11:26 PM [facility] Platelets 111(L) 130 - 400 K/mcL LAB HEMETOLOGY METHOD 02/06/2024 11:26 PM [facility] MPV 10.5 7.0 - 11.0 FL LAB HEMETOLOGY METHOD 02/06/2024 11:26 PM [facility] NRBC 0.0 <1.0 % LAB HEMETOLOGY METHOD 02/06/2024 11:26 PM [facility] NRBC Absolute 0.00 <0.10 K/mcL LAB HEMETOLOGY METHOD 02/06/2024 11:26 PM [facility] Neutrophils Relative 62.2 % LAB HEMETOLOGY METHOD 02/06/2024 11:26 PM [facility] Lymphocytes Relative 17.9 % LAB HEMETOLOGY METHOD 02/06/2024 11:26 PM [facility] Monocytes Relative 16.7 % LAB HEMETOLOGY METHOD 02/06/2024 11:26 PM [facility] Eosinophils Relative 2.2 % LAB HEMETOLOGY METHOD 02/06/2024 11:26 PM [facility] Basophils Relative 0.6 % LAB HEMETOLOGY METHOD 02/06/2024 11:26 PM [facility] Immature Granulocytes Relative 0.4 % LAB HEMETOLOGY METHOD 02/06/2024 11:26 PM [facility] Neutrophils Absolute 3.14 1.50 - 7.00 K/mcL LAB HEMETOLOGY METHOD 02/06/2024 11:26 PM [facility] Lymphocytes Absolute 0.90(L) 1.00 - 5.00 K/[facility] LAB HEMETOLOGY METHOD 02/06/2024 11:26 PM EST [facility] Monocytes Absolute 0.84 0.20 - 1.00 K/[facility] LAB HEMETOLOGY METHOD 02/06/2024 11:26 PM [facility] Eosinophils Absolute 0.11 0.00 - 0.50 K/[facility] LAB HEMETOLOGY METHOD 02/06/2024 11:26 PM EST [facility] Basophils Absolute 0.03 0.00 - 0.20 K/[facility] HEMETOLOGY METHOD 02/06/2024 11:26 PM [facility] Immature Granulocytes Absolute 0.02 0.00 - 0.03 K/[facility] HEMETOLOGY METHOD 02/06/2024 11:26 PM EST [facility] Blood Venous blood specimen / Unknown Venipuncture / Unknown 02/06/2024 11:11 PM EST 02/06/2024 11:16 PM EST Basilio Kilgore MD LAB BLOOD ORDERABLES Performing Organization Address City/[facility]/ZIP Co de Phone Number [facility] [address] [place] [address], * Type and screen (02/06/2024 11:11 PM EST) ABO Group A 02/07/2024 12:45 AM EST [facility] Rh Type Positive 02/07/2024 12:45 AM EST [facility] Antibody Screen Negative 02/07/2024 12:45 AM EST [facility] Blood Venous blood specimen / Unknown Venipuncture / Unknown 02/06/2024 11:11 PM EST 02/06/2024 11:15 PM EST Basilio Kilgore MD LAB BLOOD BANK TEST ORDERABLES [facility] [address] [place] [address], * (ABNORMAL) Comprehensive metabolic panel (02/06/2024 11:11 PM EST) Sodium 138 133 - 145 mmol/L LAB CHEMISTRY METHOD 02/06/2024 11:47 PM [facility] Potassium 4.6 3.5 - 5.5 mmol/L LAB CHEMISTRY METHOD 02/06/2024 11:47 PM [facility] Chloride 100 96 - 110 mmol/L LAB CHEMISTRY METHOD 02/06/2024 11:47 PM [facility] CO2 28 21 - 32 mmol/L LAB CHEMISTRY METHOD 02/06/2024 11:47 PM [facility] Anion Gap 10 3 - 11 LAB CHEMISTRY METHOD 02/06/2024 11:47 PM [facility] Glucose 91 70 - 100 mg/dL LAB CHEMISTRY METHOD 02/06/2024 11:47 PM [facility] BUN 51(H) 5 - 25 mg/dL LAB CHEMISTRY METHOD 02/06/2024 11:47 PM [facility] Creatinine 9.23(H) 0.70 - 1.30 mg/dL LAB CHEMISTRY METHOD 02/06/2024 11:47 PM [facility] eGFR 6(L) >=60 mL/min/1. 73m2 LAB CHEMISTRY METHOD 02/06/2024 11:47 PM [facility] Comment:Calculation based on the??Chronic Kidney Disease Epidemiology Collaboration (CKD-EPI) equation refit??without adjustment for race. BUN/Creatinine Ratio 5.5 LAB CHEMISTRY METHOD 02/06/2024 11:47 PM [facility] Calcium 9.5 8.5 - 10.5 mg/dL LAB CHEMISTRY METHOD 02/06/2024 11:47 PM [facility] AST (SGOT) 12 10 - 42 unit/L LAB CHEMISTRY METHOD 02/06/2024 11:47 PM EST [facility] ALT (SGPT) 9(L) 10 - 60 unit/L LAB CHEMISTRY METHOD 02/06/2024 11:47 PM [facility] Alkaline Phosphatase 55 42 - 121 unit/L LAB CHEMISTRY METHOD 02/06/2024 11:47 PM [facility] Total Protein 6.1 6.0 - 8.0 g/dL LAB CHEMISTRY METHOD 02/06/2024 11:47 PM EST [facility] Albumin 3.3 3.2 - 5.0 g/dL LAB CHEMISTRY METHOD 02/06/2024 11:47 PM [facility] Total Bilirubin 0.6 0.0 - 1.4 mg/dL LAB CHEMISTRY METHOD 02/06/2024 11:47 PM [facility] Blood Venous blood specimen / Unknown Venipuncture / Unknown 02/06/2024 11:11 PM EST 02/06/2024 11:16 PM EST Scot Susan Kilgore MD LAB BLOOD ORDERABLES [facility] [address] [place] [address], * Morphology (02/06/2024 11:06 AM EST) CBC Morphology NORMAL [email or web address] [facility] Comment: Anisocytosis 2 + Polychromasia 1 + ? Your request to have a duplicate copy faxed has been acknowledged. ?Queued to: ??[id number] ?Summary of Demographics Changes Patient demographics have changed. No other changes to any test results have been made. Patient Name updated to: TONO HERZOG Changed on: 02/06/2024 02/06/2024 11:0 6 AM EST 02/06/2024 11:07 AM EST Narrative MARIPOSA ISAACS ([facility]) - 02/07/2024 2:48 AM EST FASTING:NO AN UPDATE OR CORRECTION HAS BEEN MADE TO NAME FASTING: NO Juanito Wilkinson MD LAB BLOOD ORDERABLES Performing Organization Address City/[facility] Co de Phone Number MARIPOSA SIMMONSBANNERJAYSON ([facility]) [email or web address] [place] [facility] [address] [place] [id number] * (ABNORMAL) Basic metabolic panel (02/06/2024 11:06 AM EST) Pathologist [facility] Glucose 137 65 - 139 mg/dL [email or web address] [place] [facility] Comment: ? Non-fasting reference interval Urea Nitrogen (BUN) 39(H) 7 - 25 mg/dL [email or web address] [place] [facility] Creatinine 7.73(H) 0.70 - 1.28 mg/dL [email or web address] [place] [facility] eGFR 7(L) > OR = 60 mL/min/1. 73m2 [email or web address] [place] [facility] BUN/Creatinine Ratio 5(L) 6 - 22 (calc) [email or web address] [place] [facility] Sodium 139 135 - 146 mmol/L [email or web address] [place] [facility] Potassium 4.4 3.5 - 5.3 mmol/L [email or web address] [place] [facility] Chloride 97(L) 98 - 110 mmol/L [email or web address] Carbon Dioxide 26 20 - 32 mmol/L [email or web address] [place] [facility] Calcium 9.0 8.6 - 10.3 mg/dL [email or web address] [facility] 02/06/2024 11:0 6 AM EST 02/06/2024 11:07 AM EST Narrative MARIPOSA ISAACS ([facility]AM[facility]) - 02/07/2024 2:48 AM EST FASTING:NO AN UPDATE OR CORRECTION HAS BEEN MADE TO NAME FASTING: NO Juanito Wilkinson MD LAB BLOOD ORDERABLES Performing Organization Address City/[facility] Co de Phone Number [facility] ([facility]AM[facility]) [email or web address] [place] [facility] [address] [place] [address] * Lipid panel (04/02/2019) LDL/HDL Ratio 4 0 - 4 Triglycerides 138 0 - 150 mg/dL Cholesterol 159 0 - 200 mg/dL HDL 41 40 mg/dL LDL Cholesterol 91 0 - 100 mg/dL Blood Venous blood specimen / Unknown Historical Provider LAB BLOOD ORDERAB LES from Last 3 Months or Most Recently Relevant to Health Maintenance Care Teams Assembler Relationship Specialty Start Date End Date Brooke Meza [place] [address] [facility] [address] [place] [address] PCP - General Primary Care 02/08/24
--- OUTSIDE RECORDS SUMMARY | 2024-04-30 05:37 | XMS_ITS | Clinical Summary ---
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 Active 08-21 00:00: [...] 08-25 00:00: 00 04-17 23:59 :00 No [id number] 1 tablet 2 TIMES DAILY 1 tablet 2 TIMES DAILY (route: oral) Med Classific ation: Central Nervous System Agents Renal Caps 1 mg capsule 08-25 00:00: 00 04-17 23:59 :00 No [id number] 1 capsule DAILY 1 capsule DAILY (route: oral) Med Classific ation: Electroly te Balance-N utritiona l Products sevelamer carbonate 800 mg tablet 08-25 00:00: 00 04-17 23:59 :00 No [id number] 1 tablet 3 TIMES DAILY 1 tablet 3 TIMES DAILY (route: oral) Med Classific ation: Genitouri nary Therapy Abilify 20 mg tablet 08-25 00:00: 00 04-17 23:59 :00 No [id number] 1 tablet DAILY 1 tablet DAILY (route: oral) Med Classific ation: Central Nervous System Agents aspirin 81 mg tablet,pritesh yed release 08-25 00:00: 00 04-17 23:59 :00 No [id number] 1 tablet DAILY 1 tablet DAILY (route: oral) Med Classific ation: Hematolog ical Agents divalproex 500 mg tablet,pritesh yed release 08-25 00:00: 00 04-17 23:59 :00 No [id number] 2 tablet BEDTIME 2 tablet BEDTIME (route: oral) Med Classific ation: Central Nervous System Agents Eliquis 2.5 mg tablet 12-23 00:00: 00 04-17 23:59 :00 No [id number] 1 tablet 2 TIMES DAILY 1 tablet 2 TIMES DAILY (route: oral) Med Classific ation: Hematolog ical Agents metoprolol succinate ER 25 mg tablet,exte nded release 24 hr 12-23 00:00: 00 01-28 23:59 :00 No [id number] 1 tablet DAILY 1 tablet DAILY (route: oral) Med Classific ation: Cardiovas cular Therapy Agents metoprolol succinate ER 25 mg tablet,exte nded release 24 hr 2023-04 00:00: 00 04-17 23:59 :00 No [id number] 1 tablet DAILY 1 tablet DAILY (route: [...] AWARENESS FOR SAFETY AND WILL NOTIFY [employer]ZZ[employer] DELIVERY DRIVER AND PHYSICIAN/PROVIDER WITH ANY CHANGE IN CONDITION. [code = SKILLED NURSE WILL MAINTAIN SITUATIONAL AWARENESS FOR SAFETY AND WILL NOTIFY CL[employer]ZZ[employer] DELIVERY DRIVER AND PHYSICIAN/PROVIDER WITH ANY CHANGE IN CONDITION.] [...] CARE WILL BE ESTABLISHED THAT MEETS PATIENT'S USP NEEDS AND INCLUDES PATIENT GOAL FOR HOME [...] End Date/Time Encounter Type Admission Type Attending [facility] Care Department Encounter ID Discharge Date Discharge Status Discharge Condition Discharge Reason Percent Goals Met 2023-08-26 00:00:00 2024-04-04 00:00:00 Outpatient RECERTIFIC ALAINA CASTELLANOS [facility] [id number] 2024-04-04 00:00:00 DISCHARGE TO HOME OR SELF CARE INDEPENDEN T IN THE HOME PER FAMILY REQUEST 2.94
[2024-04-30 05:38] LABS: MANUAL DIFF FLAG NO
[2024-04-30 05:56] LABS: Basophils Percent Auto 0.6 % (0-2); Eosinophils Absolute Auto 0.2 X10*3/uL (0.0-0.4); Eosinophils Percent Auto 4.3 % (0-4); Hematocrit 27.1 % (42.0-52.0); Imm Gran Abs Auto 0.03 X10*3/uL (0.00-0.03); Imm Gran Pct Auto 0.9 % (0.0-0.4); Lymphocytes Absolute Auto 0.7 X10*3/uL (1.2-4.9); Lymphocytes Percent Auto 20.3 % (20-40); Mean Corpuscular HGB Conc 33.2 g/dl (31.0-36.0); Mean Corpuscular Hemoglobin 34.7 pg (27.0-33.0); Mean Corpuscular Volume 104.6 fL (80.0-98.0); Mean Platelet Volume 10.8 fL (9.4-12.4); Monocytes Absolute Auto 0.7 X10*3/uL (0.1-1.2); Monocytes Percent Auto 18.6 % (2-11); Neutrophils Absolute Auto 1.9 x10*3/uL (2.0-8.3); Neutrophils Percent Auto 55.3 % (45-73); Red Blood Count 2.59 X10*6/uL (4.60-5.80); Red Cell Distribution Width 17.4 % (11.0-16.0); White Blood Count 3.5 X10*3/uL (4.8-10.8)
[2024-04-30 05:59] LABS: Platelet Count 67 X10*3/uL (160-400)
[2024-04-30 06:05] LABS: Valproate 84.9 mcg/mL (50.0-100.0)
[2024-04-30 06:12] LABS: Anion Gap 15 (12-20); Blood Urea Nitrogen 36 mg/dL (9-16); Carbon Dioxide 32 mmol/L (22-29); Chloride 99 mmol/L (96-108); Estimated Glomerular Filt Rate 10; Glucose Random 83 mg/dL (60-115); Potassium 4.3 mmol/L (3.3-5.1); Sodium 142 mmol/L (135-145)
== END 2024-04-30 05:35 | disposition home or self-care (01) ==
LOC: HO.MMNH1L 05:34
PROVIDERS: Visit Provider Nurse Practitioner
DX: M62.59 Muscle wasting and atrophy, not elsewhere classified, multiple sites (principal); J96.01 Acute respiratory failure with hypoxia; J18.9 Pneumonia, unspecified organism
CPT/HCPCS: 36415; 80048; 80164; 85025

== ENCOUNTER 2024-09-05 17:25 | Outpatient (BNV) | payer MEDICARE, SELFPAY | END 2024-10-24 14:39 | PROVIDERS: Admitting Provider Psychiatry & Neurology Psychiatry; PCP Physician Assistant; Visit Provider Internal Medicine Cardiovascular Disease | DX: I48.91 Unspecified atrial fibrillation (principal) | CPT/HCPCS: 93010 ==

== ENCOUNTER 2024-09-05 17:25 | Inpatient (IN) | payer MEDICARE, SELFPAY ==
[2024-09-05 18:00] VITALS: BP 152/68; PULSE 76; TEMP 36.7; O2SAT 94
--- OUTSIDE RECORDS SUMMARY | 2024-09-05 18:25 | XMS_ITS | Clinical Summary ---
Author Organization [facility] Address [address] [place] [phone] Phone Care Team Providers [employer] Work Name Role Phone Brooke Meza PA-C Primary Care Provider + Allergies No known active allergies Medications aspirin [...] each day 3 pill 5 mg Active lidocaine-prilo ghada (EMLA) cream Apply topically 3 (three) times a week Apply 0.5 hour before treatment 2 kit 11 2 Active Additional Information Patient not taking.Reported on 08/28/2024 ARIPiprazole (ABILIFY) 20 MG tablet Take 20 mg by mouth 1 (one) time each day Active ergocalciferol 1.25 MG (87360 UT) capsule Take 50,000 Units by mouth 1 (one) time per week Active sevelamer carbonate (RENVELA) 800 MG tablet TAKE 1 TABLET BY MOUTH IN THE MORNING AND 1 TABLET AT NOON AND TAKE 1 TABLET IN THE EVENING. TAKE WITH MEALS, SWALLOW WHOLE, DO NOT CRUSH, BREAK OR CHEW 270 tablet 5 Active omeprazole OTC (PriLOSEC OTC) 20 MG EC tablet Take 1 tablet (20 mg total) by mouth 1 (one) time each day Do not crush, chew, or split. 30 tablet 11 5 06/18/19 26 Active Additional Information Patient not taking.Reported on 08/28/2024 torsemide (DEMADEX) 100 MG tablet Take 1 tablet (100 mg total) by mouth 3 (three) times a week To be taken on Monday, and Monday 12 tablet 11 5 07/04/19 26 Active APIXABAN PO Take 2.5 mg by mouth in the morning. Active ARIPiprazole (ABILIFY) 5 MG tablet Take 5 mg by mouth 1 (one) time each day Active metoprolol tartrate 25 MG tablet Take 20 mg by mouth in the morning and 20 mg in the evening. Active Active Problems Problem Noted Date Diagnosed Date [...] Encounters Date Type Department Care Team Description 09/02/2024 Treatment [facility] [address] [phone] Bradley Pena MD End stage renal disease; Dependence on renal dialysis 08/28/2024 1:45 PM EDT Office Visit [facility] [address] [phone] Bradley Pena MD End stage renal disease (HCC) (Primary Dx) 08/28/2024 [facility] [address] [phone] Bradley Pena MD End stage renal disease; Dependence on renal dialysis 08/19/2024 Treatment [facility] [address] [phone] Bradley Pena MD End stage renal disease; Dependence on renal dialysis 08/12/2024 Treatment [facility] [address] [phone] Bradley Pena MD End stage renal disease; Dependence on renal dialysis 08/05/2024 Treatment [facility] [address] [phone] Bradley Pena MD End stage renal disease; Dependence on renal dialysis 07/29/2024 Treatment [facility] [address] [phone] Bradley Pena MD End stage renal disease; Dependence on renal dialysis 07/24/2024 Treatment [facility] [address] [phone] Bradley Pena MD End stage renal disease; Dependence on renal dialysis 07/15/2024 Treatment [facility] [address] [phone] Bradley Pena MD End stage renal disease; Dependence on renal dialysis 07/15/2024 [facility] in Dialysis Clinic [facility] [address] [phone] Bradley Pena MD 07/05/2024 Treatment [facility] [address] [phone] Bradley Pena MD End stage renal disease; Dependence on renal dialysis 07/03/2024 Treatment [facility] [address] [phone] Bradley Pena MD End stage renal disease; Dependence on renal dialysis 06/28/2024 [facility] [address] [phone] Bradley Pena MD End stage renal disease; Dependence on renal dialysis 06/24/2024 [facility] [address] [phone] Bradley Pena MD End stage renal disease; Dependence on renal dialysis 06/17/2024 [facility] [address] [phone] Bradley Pena MD End stage renal disease; Dependence on renal dialysis 06/10/2024 [facility] [address] [phone] Bradley Pena MD End stage renal disease; Dependence on renal dialysis from Last 3 Months Immunizations Immunization Administration Dates Next Due Moderna SARS-COV-2 06/24/2020,05/13/2020 Family History Medical History Relation Comments Cancer [...] Sign Reading Time Taken Comments Blood Pressure 128/74 08/28/2024 1:53 PM EDT Pulse 58 08/28/2024 1:53 PM EDT Temperature - - Respiratory Rate - - Oxygen Saturation 99% 08/28/2024 1:53 PM EDT Inhaled Oxygen Concentration - - Weight 84 kg (185 lb 3.2 oz) 08/28/2024 1:53 PM EDT Height 182.9 cm (6') 10/30/2023 4:01 PM EDT Body Mass Index 25.12 10/30/2023 4:01 PM EDT Plan of Treatment Health Maintenance Due Date Last Done Comments Pneumococcal Vaccine: 50+ Years (1 of 2 - PCV) 972 Hepatitis B Vaccine (1 of 5 - Risk Dialysis 4-dose series) 1973 Colorectal Cancer Screening: Colonoscopy 2002 Colorectal Cancer Screening: Sigmoidoscopy 2002 Colorectal Cancer Screening: Annual FOBT 12/08/2022 12/08/2021 Influenza Vaccine (Season Ended) 2024 Procedures Procedure Name Priority Date/Time Associated Diagnosis Comments KT/V NATURAL LOG, URR (HC) Routine 09/04/2024 3:00 AM EDT CBC AND DIFFERENTIAL Routine 09/04/2024 3:00 AM EDT HEMOGLOBIN Routine 08/28/2024 3:00 AM EDT CALCIUM PHOSPHORUS PRODUCT, ADJUSTED (HC) Routine 08/21/2024 3:00 AM EDT LIH () Routine 08/21/2024 3:00 AM EDT HEMOGLOBIN AND HEMATOCRIT, BLOOD Routine 08/21/2024 3:00 AM EDT TRANSFERRIN SATURATION Routine 3:00 AM EDT PROTEIN, TOTAL, SERUM Routine 08/07/2024 3:00 AM EDT MAGNESIUM Routine 08/07/2024 3:00 AM EDT ELECTROLYTE PANEL Routine 08/07/2024 3:0 0 AM EDT LIH (HC) Routine 08/07/2024 3:00 AM EDT LACTATE DEHYDROGENASE Routine 08/07/2024 3:00 AM EDT GLUCOSE, RANDOM Routine 08/07/2024 3:00 AM EDT BUN/CREATININE RATIO Routine 08/07/2024 3:00 AM EDT CREATININE, SERUM Routine 08/07/2024 3:0 0 AM EDT BILIRUBIN, TOTAL Routine 08/07/2024 3:00 AM EDT AST Routine 08/07/2024 3:00 AM EDT ALT Routine 08/07/2024 3:00 AM EDT CALCIUM PHOSPHORUS PRODUCT, ADJUSTED (HC) Routine 08/07/2024 3:00 AM EDT ALKALINE PHOSPHATASE Routine 08/07/2024 3:00 AM EDT FERRITIN Routine 08/07/2024 3:00 AM EDT PTH, INTACT Routine 08/07/2024 3:00 AM EDT CBC AND DIFFERENTIAL Routine 08/07/2024 3:00 AM EDT KT/V NATURAL LOG, URR (HC) Routine 08/07/2024 3:00 AM EDT HEMOGLOBIN Routine 07/31/2024 3:00 AM EDT HEMOGLOBIN Routine 07/24/2024 3:00 AM EDT LIH (HC) Routine 07/19/2024 3:00 AM EDT CALCIUM, ADJUSTED W ALBUMIN Routine 07/19/2024 3:00 AM EDT HEMOGLOBIN AND HEMATOCRIT, BLOOD Routine 07/17/2024 3:00 AM EDT HEMOGLOBIN Routine 07/10/2024 3:00 AM EDT FERRITIN Routine 07/03/2024 3:00 AM EDT TRANSFERRIN SATURATION Routine 3:00 AM EDT PROTEIN, TOTAL, SERUM Routine 07/03/2024 3:00 AM EDT ELECTROLYTE PANEL Routine 07/03/2024 3:0 0 AM EDT MAGNESIUM Routine 07/03/2024 3:00 AM EDT LIPID PANEL Routine 07/03/2024 3:00 AM EDT LACTATE DEHYDROGENASE Routine 07/03/2024 3:00 AM EDT LIH (HC) Routine 07/03/2024 3:00 AM EDT GLUCOSE, RANDOM Routine 07/03/2024 3:00 AM EDT AST Routine 07/03/2024 3:00 AM EDT CREATININE, SERUM Routine 07/03/2024 3:0 0 AM EDT BILIRUBIN, TOTAL Routine 07/03/2024 3:00 AM EDT CALCIUM PHOSPHORUS PRODUCT, ADJUSTED (HC) Routine 07/03/2024 3:00 AM EDT ALKALINE PHOSPHATASE Routine 07/03/2024 3:00 AM EDT ALT Routine 07/03/2024 3:00 AM EDT PTH, INTACT Routine 07/03/2024 3:00 AM EDT RETICULOCYTES Routine 07/03/2024 3:00 AM EDT CBC AND DIFFERENTIAL Routine 07/03/2024 3:00 AM EDT KT/V NATURAL LOG, URR (HC) Routine 07/03/2024 3:00 AM EDT HEMOGLOBIN AND HEMATOCRIT, BLOOD Routine 06/19/2024 3:00 AM EDT TRANSFERRIN SATURATION Routine 3:00 AM EST PROTEIN, TOTAL, SERUM Routine 06/05/2024 3:00 AM EST MAGNESIUM Routine 06/05/2024 3:00 AM EST ELECTROLYTE PANEL Routine 06/05/2024 3:0 0 AM EST LIH (HC) Routine 06/05/2024 3:00 AM EST GLUCOSE, RANDOM Routine 06/05/2024 3:00 AM EST LACTATE DEHYDROGENASE Routine 06/05/2024 3:00 AM EST CREATININE, SERUM Routine 06/05/2024 3:0 0 AM EST BILIRUBIN, TOTAL Routine 06/05/2024 3:00 AM EST AST Routine 06/05/2024 3:00 AM EST ALT Routine 06/05/2024 3:00 AM EST ALKALINE PHOSPHATASE Routine 06/05/2024 3:00 AM EST CALCIUM PHOSPHORUS PRODUCT, ADJUSTED (HC) Routine 06/05/2024 3:00 AM EST PTH, INTACT Routine 06/05/2024 3:00 AM EST FERRITIN Routine 06/05/2024 3:00 AM EST KT/V NATURAL LOG, URR (HC) Routine 06/05/2024 3:00 AM EST CBC AND DIFFERENTIAL Routine 06/05/2024 3:00 AM EST OCCULT BLOOD X 3, STOOL Routine 12/08/2021 from Last 3 Months or Most Recently Relevant to Health Maintenance Results * (ABNORMAL) Hemoglobin (08/28/2024 3:00 AM EDT) Only the most recent of4 resultswithin the time period is included. Hgb 9.2(L) 13.7 - 17.5 g/dL [facility] Hemoglobin x 3 27.6(L) 41.1 - 52.5 g/dL [facility] 08/28/2024 3:00 AM EDT 08/29/2024 12:23 PM EDT Bradley Pena MD LAB BLOOD ORDERABLES Final Re sult Performing Organization Address [facility]/ZIP Co de Phone Number [facility] [address] [place] [address] * LIH (08/21/2024 3:00 AM EDT) Only the most recent of5 resultswithin the time period is included. Lipemia Normal Normal [facility] Icterus Normal Normal [facility] Hemolysis Normal Normal [facility] 08/21/2024 3:00 AM EDT 08/22/2024 1:38 PM EDT Bradley Pena MD LAB [id number] SOLICITED RESULTS Final Result Performing Organization Address City/[facility]/ZIP Co de Phone Number [facility] [address] [place] [address] * (ABNORMAL) Calcium Phosphorus Product, Adjusted (08/21/2024 3:00 AM EDT) Only the most recent of4 resultswithin the time period is included. Albumin 4.1 3.6 - 5.4 g/dL [facility] Calcium 9.6 8.6 - 10.3 mg/dL [facility] Phosphorus, Serum 9.0(H) 2.5 - 5.0 mg/dL [facility] Ca*PO4 86.4(A) <55.0 mg2/dL2 [facility] Calcium, Adjusted Total 9.6 8.6 - 10.3 mg/dL [facility] CA*PO4 CORRCTD 86.4(A) <55.0 mg2/dL2 [facility] 08/21/2024 3:00 AM EDT 08/22/2024 1:38 PM EDT Bradley Pena MD LAB [id number] SOLICITED RESULTS Final Result Performing Organization Address [facility] de Phone Number [facility] [address] [place] [address] * (ABNORMAL) Hemoglobin and hematocrit (08/21/2024 3:00 AM EDT) Only the most recent of3 resultswithin the time period is included. Hgb 9.4(L) 13.7 - 17.5 g/dL [facility] Hematocrit 29.0(L) 40.1 - 51.0 % [facility] Hemoglobin x 3 28.2(L) 41.1 - 52.5 g/dL [facility] 08/21/2024 3:00 AM EDT 08/22/2024 1:08 PM EDT Bradley Pena MD LAB BLOOD ORDERABLES Final Re sult Performing Organization Address [facility] de Phone Number [facility] [address] [place] [address] * (ABNORMAL) Kt/V Natural Log, URR (08/07/2024 3:00 AM EDT) Only the most recent of3 resultswithin the time period is included. Treatment Time 243 min [facility] Pre-Weight, lb 86.8 kg [facility] Post-Weight, lb 84.0 kg [facility] Ultrafiltration Rate 8 <=13 mL/kg/hr [facility] Comment: Recommend achieving Ultrafiltration Rate (UFR) <=10 mL/kg/hr References: Javon GRAHAM et al. Kidney Int. 2010; 79(2):250-257 BUN 64(H) 7 - 25 mg/dL [facility] BUN Post Dialysis 18 7 - 25 mg/dL [facility] UREA REDUCTION RATIO (%) 72 >=65 % [facility] Kt/V Natural Log 1.49 >=1.2 [facility] 08/07/2024 3:00 AM EDT 08/08/2024 12:30 PM EDT Bradley Pena MD LAB [id number] SOLICITED RESULTS Final Result Performing Organization Address [facility] de Phone Number [facility] [address] [place] [address] * BUN/CREATININE RATIO (08/07/2024 3:00 AM EDT) BUN/Creatinine Ratio 7.8 <=23.0 [facility] 08/07/2024 3:00 AM EDT 08/08/2024 12:37 PM EDT Bradley Pena MD LAB [id number] SOLICITED RESULTS Final Result Performing Organization Address [facility] de Phone Number [facility] [address] [place] [address] * (ABNORMAL) TSAT (08/07/2024 3:00 AM EDT) Only the most recent of3 resultswithin the time period is included. Iron 134 65 - 175 ug/dL [facility] Transferrin 134(L) 215 - 365 mg/dL [facility] TIBC 188(L) 211 - 406 ug/dL [facility] Iron Saturation (TSat) 71(H) 22 - 52 % [facility] 08/07/2024 3:00 AM EDT 08/08/2024 12:37 PM EDT Bradley Pena MD LAB BLOOD ORDERABLES Final Re sult Performing Organization Address [facility] de Phone Number [facility] [address] [place] [address] * (ABNORMAL) CBC and Differential (08/07/2024 3:00 AM EDT) Only the most recent of3 resultswithin the time period is included. DIFFERENTIAL MANUAL, 2 Not Indicated [facility] White Blood Cells 3.5(L) 4.2 - 9.1 K/uL [facility] RBC 2.91(L) 4.63 - 6.08 M/uL [facility] Hgb 10.2(L) 13.7 - 17.5 g/dL [facility] Hemoglobin x 3 30.6(L) 41.1 - 52.5 g/dL [facility] Hematocrit 29.5(L) 40.1 - 51.0 % [facility] MCV 101.4(H) 79.0 - 92.2 fL [facility] MCH 35.1(H) 25.7 - 32.2 pg [facility] MCHC 34.6 32.3 - 36.5 g/dL [facility] RDW 13.8 11.6 - 14.4 % [facility] Platelets 76(L) 163 - 337 K/uL [facility] Comment:Possible platelet cl umps detected. Review result with patient history. Neutrophils Relative 63.8 34.0 - 67.9 % [facility] Lymphocytes Relative 19.9(L) 21.8 - 53.1 % [facility] Monocytes 13.1(H) 5.3 - 12.2 % [facility] Eosinophils Relative 2.3 0.8 - 7.0 % [facility] Basophils Relative 0.9 0.2 - 1.2 % [facility] Immature Granulocytes 0.0 0.0 - 1.0 % [facility] 08/07/2024 3:00 AM EDT 08/08/2024 12:33 PM EDT Bradley Pena MD LAB BLOOD ORDERABLES Final Re sult [facility] [address] [place] [address] * (ABNORMAL) ALT (08/07/2024 3:00 AM EDT) Only the most recent of3 resultswithin the time period is included. [facility] ALT (SGPT) 9(L) 10 - 49 U/L [facility] 08/07/2024 3:00 AM EDT 08/08/2024 12:37 PM EDT Bradley Pena MD LAB BLOOD ORDERABLES Final Re sult Performing Organization Address [facility] Co de Phone Number [facility] [address] [place] [address] * AST (08/07/2024 3:00 AM EDT) Only the most recent of3 resultswithin the time period is included. AST (SGOT) 16 <34 U/L [facility] 08/07/2024 3:00 AM EDT 08/08/2024 12:37 PM EDT Bradley Pena MD LAB BLOOD ORDERABLES Final Re sult Performing Organization Address [facility] de Phone Number [facility] [address] [place] [address] * (ABNORMAL) Protein, total (08/07/2024 3:00 AM EDT) Only the most recent of3 resultswithin the time period is included. Total Protein 6.1(L) 6.4 - 8.9 g/dL [facility] 08/07/2024 3:00 AM EDT 08/08/2024 12:37 PM EDT Bradley Pena MD LAB BLOOD ORDERABLES Final Re sult Performing Organization Address [facility] de Phone Number [facility] [address] [place] [address] * Alkaline phosphatase (08/07/2024 3:00 AM EDT) Only the most recent of3 resultswithin the time period is included. Alkaline Phosphatase 48 46 - 116 U/L [facility] 08/07/2024 3:00 AM EDT 08/08/2024 12:37 PM EDT Bradley Pena MD LAB BLOOD ORDERABLES Final Re sult Performing Organization Address [facility] Co de Phone Number [facility] [address] [place] [address] * PTH, Intact (08/07/2024 3:00 AM EDT) Only the most recent of3 resultswithin the time period is included. PTH, Intact 484 160 - 721 pg/mL [facility] Comment: Suggested (KDIGO) ESRD maintenance range is two to nine times the upper normal limit (80.1 pg/mL) for the laboratory. 08/07/2024 3:00 AM EDT 08/08/2024 12:37 PM EDT Bradley Pena MD LAB BLOOD ORDERABLES Final Re sult Performing Organization Address [facility] Co de Phone Number [facility] [address] [place] [address] * Magnesium (08/07/2024 3:00 AM EDT) Only the most recent of3 resultswithin the time period is included. Magnesium 2.2 1.9 - 2.7 mg/dL [facility] 08/07/2024 3:00 AM EDT 08/08/2024 12:37 PM EDT Bradley Pena MD LAB BLOOD ORDERABLES Final Re sult Performing Organization Address [facility] de Phone Number [facility] [address] [place] [address] * Lactate dehydrogenase (08/07/2024 3:00 AM EDT) Only the most recent of3 resultswithin the time period is included. LDH 214 120 - 246 U/L [facility] 08/07/2024 3:00 AM EDT 08/08/2024 12:37 PM EDT us Bradley Pena MD LAB BLOOD ORDERABLES Final Re sult Performing Organization Address [facility] de Phone Number [facility] [address] [place] [address] * (ABNORMAL) Glucose, random (08/07/2024 3:00 AM EDT) Only the most recent of3 resultswithin the time period is included. Glucose 117(H) 70 - 99 mg/dL [facility] Comment: ADA guidelines outline the following fasting glucose ranges: Normal: ? <100 Prediabetes: 100-125 Diabetes: ? >125 08/07/2024 3:00 AM EDT 08/08/2024 12:37 PM EDT Bradley Pena MD LAB BLOOD ORDERABLES Final Re sult Performing Organization Address [facility] Co de Phone Number [facility] [address] [place] [address] * (ABNORMAL) Ferritin (08/07/2024 3:00 AM EDT) Only the most recent of3 resultswithin the time period is included. Ferritin 1,465(H) 22 - 322 ng/mL [facility] 08/07/2024 3:00 AM EDT 08/08/2024 12:37 PM EDT Bradley Pena MD LAB BLOOD ORDERABLES Final Re sult Performing Organization Address [facility] de Phone Number [facility] [address] [place] [address] * (ABNORMAL) Creatinine, serum (08/07/2024 3:00 AM EDT) Only the most recent of3 resultswithin the time period is included. Creatinine 8.18(H) 0.70 - 1.30 mg/dL [facility] 08/07/2024 3:00 AM EDT 08/08/2024 12:37 PM EDT Bradley Pena MD LAB BLOOD ORDERABLES Final Re sult Performing Organization Address [facility] de Phone Number [facility] [address] [place] [address] * Bilirubin, total (08/07/2024 3:00 AM EDT) Only the most recent of3 resultswithin the time period is included. Total Bilirubin 0.4 0.3 - 1.2 mg/dL [facility] 08/07/2024 3:00 AM EDT 08/08/2024 12:37 PM EDT Bradley Pena MD LAB BLOOD ORDERABLES Final Re sult Performing Organization Address [facility] de Phone Number [facility] [address] [place] [address] * (ABNORMAL) Electrolyte panel (08/07/2024 3:00 AM EDT) Only the most recent of3 resultswithin the time period is included. Sodium 135(L) 136 - 145 mEq/L [facility] Potassium 4.6 3.4 - 5.0 mEq/L [facility] Chloride 97(L) 98 - 107 mEq/L [facility] Bicarbonate (CO2) 25 21 - 31 mEq/L [facility] Anion Gap 13 3 - 14 mEq/L [facility] 08/07/2024 3:00 AM EDT 08/08/2024 12:37 PM EDT Bradley Pena MD LAB BLOOD ORDERABLES Final Re sult Performing Organization Address [facility] de Phone Number [facility] [address] [place] [address] * Calcium, Adjusted w Albumin (07/19/2024 3:00 AM EDT) Calcium 9.9 8.6 - 10.3 mg/dL [facility] Albumin 4.0 3.6 - 5.4 g/dL [facility] Calcium, Adjusted Total 9.9 8.6 - 10.3 mg/dL [facility] 07/19/2024 3:00 AM EDT 07/20/2024 1:21 PM EDT Bradley Pena MD LAB BLOOD ORDERABLES Final Re sult Performing Organization Address City/[facility] Co de Phone Number [facility] [address] [place] [address] * Reticulocytes (07/03/2024 3:00 AM EDT) Reticulocyte 1.4 0.5 - 1.8 % [facility] Retic Ct Pct 34.0 28.2 - 35.7 pg [facility] 07/03/2024 3:00 AM EDT 07/05/2024 4:33 PM EDT us Bradley Pena MD LAB BLOOD ORDERABLES Final Re sult [facility] [address] [place] [address] * (ABNORMAL) Lipid panel (07/03/2024 3:00 AM EDT) Cholesterol 130 <200 mg/dL [facility] Comment: Optimal: ?<200 Borderline: ? 200-239 Higher Risk: ?>239 Triglycerides 92 <150 mg/dL [facility] Comment: Optimal: ?<150 Borderline High: ??150-199 High: ? 200-499 Very High: ?>499 HDL 39(A) >59 mg/dL [facility] Comment: Desirable: ?>59 Higher Risk: ?<40 LDL-Calc 73 <100 mg/dL [facility] Comment: Optimal: ?<100 Above Optimal: ?100-129 Borderline High: ??130-159 High: ? 160-189 Very High: ?>189 VLDL Cholesterol Alexi 18 <30 mg/dL [facility] Comment: Optimal: ?<30 Borderline High: ??30-39 High: ? 40-99 Very High: ?>99 Chol/HDL Ratio 3.3(A) <3.3 [facility] Comment: Optimal: ?<3.3 Higher Risk: ?>6.2 07/03/2024 3:00 AM EDT 07/05/2024 5:02 PM EDT us Bradley Pena MD LAB BLOOD ORDERABLES Final Re sult Performing Organization Address [facility]/ZIP Co de Phone Number [facility] [address] [place] [address] * Occult blood x 3, stool (12/08/2021) [...] 12/09/2021 Unless otherwise specified, test(s) performed at: [facility], [address] [place] [address] LABORER CUTTING TOOL: Carroll Levy M.D. For any questions, please call customer service at FREQUENCY:OTHER Resulting Agency Comment Specimen source: Occult Blood Card Jose Conley MD LAB BODY FLUIDS AND STOOLS ORDER INOCENTE Final Result Performing Organization Address [facility] de Phone Number [facility]PS [facility] PVNMA from Last 3 Months or Most Recently Relevant to Health Maintenance Insurance Medicare [facility] Medicare [facility] Care Teams Mill Work Relationship Specialty Start Date End Date Brooke Meza PA-C [address] [place] [address] PCP - General Physician [employer] 08/28/24
--- NOTE | 2024-09-06 06:19 | PC.ADMIT ---
Marco is a Yoruba speaking 69 year-old male admitted as a 12B from [facility] ED. He has a history of bipolar disorder, atrial fibrillation on Eliquis, status post TAVR for a severe aortic stenosis, end-stage renal disease on dialysis Monday, Monday, Monday. Marco also has a past psychiatric history for bipolar affective disorder, catatonia, medication nonadherence, several prior inpatient psychiatric hospitalizations for treatment of the same, senior care [place] use, anemia of chronic disease, secondary hyperparathyroidism, tremor, hypertension, thrombocyptopenia. Apparently his reported to dialysis that Marco had been acting erratically for the past several weeks, and he has apparently not been taking his medications for the past month. According to his he has also been erratic in his thoughts to stop dialysis; he skipped a session last month. At times Marco has been making nonsensical statements. While he was at the [facility] ED he had a CT of the head that was unremarkable, as well as labs. Marco is a nonsmoker, does not use alcohol or other drugs. He was noted to be irritable, unsure of why he is in the hospital and did not want to sign any papers. He denied any SI, HI, AVH. His skin check was unremarkable. Patient is hard of hearing, even with his hearing aids in his ears. Patient ate dinner, but two hours later refused his HS Depakote and Eliquis, I need to eat when I take the medicines ; he refused offers of cereal, fruit, crackers etc.
--- NOTE | 2024-09-06 07:20 | PC.NURSE ---
Patient noted to AV fistula left arm, bruit and thrill appreciated.
[2024-09-06 07:54] VITALS: BP 150/68; PULSE 62; TEMP 36.5; O2SAT 95
--- NOTE | 2024-09-06 09:13 | HO.PSYADMNOT ---
HPI Date of Service: 09/06/24 Chief Complaint: Unspecified Bipolar D/O Depression Anxiety Sources of Information: patient interviewed, chart reviewed and crisis/core team assessment reviewed HPI Subjective Notes: Strange Warning, Conditional Voluntary, 3 Day and Section 12B Healthcare Proxy: Yes Narrative: Patient is a 69 yo male with hx of bipolar/psychosis, catatonia, ESRD on Dialysis MWF, AFib on Eliquis, hypertension, anemia related to chronic kidney disease, aortic stenosis status post TAVR, was admitted from [facility] ED after his reported some manic behaviors as well as psychosis and refusal of medications and treatments. Patient refusing medication, labs and dialysis. Says he just wants to take a break from dialysis. He also says he does not want to and wants to live and seemed surprised to hear that refusing dialysis could end his life; however he continued to refuse, only relenting when it was explained to him that court affirmed healthcare proxy has paid a decision that he needs to get dialysis. Patient making some paranoid statements about the police, needing to be taking in or booked by the police... came to the unit and reports that he has not been taking his medications for at least a month and has been making paranoid statements, thinking someone stole a gun from his safe although he does not have a gun at all. HCP affirmed on 09/08/[address] [place] [address] [employer] Inspector spoke with patient's and HCP Sujata... She says patient has been confused and disorganized for quite some time, not taking his medications. She agrees that he needs dialysis, to continue his medications, psychiatric and medical, and lab work and agrees that if need be patient is to be restrained in order to treat him including dialysis, medication and labs. Past Psychiatric History: Bipolar d/o/psychosis . Hx M 5 admissions and [facility] in 1990 OP: Ramya Jacobs NP First psychotic/manic break in early . 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 Substance History: none Trauma History: Deferred Diagnostics Vital Signs (24Hr): Vital Signs - 24 hr 09/05/24 18:00 09/06/24 07:54 Temperature 98.1 F 97.7 F Pulse Rate 76 62 Blood Pressure 152/68 H 150/68 H Pulse Oximetry 94 95 Oxygen Delivery Method Room Air Room Air Labs 09/06/24 16:05 Meds/Allergies Meds Home Medications ?Medication ?Instructions ?Recorded ?Confirmed ?Type apixaban 2.5 mg tablet 2.5 mg PO BID 09/05/24 09/05/24 History aripiprazole 5 mg tablet 5 mg PO DAILY 09/05/24 09/05/24 History benztropine 1 mg tablet 1 mg PO BEDTIME PRN EPS 09/05/24 09/05/24 History benztropine 2 mg tablet 2 mg PO DAILY 09/05/24 09/05/24 History divalproex 500 mg tablet,extended 500 mg PO DAILY 09/05/24 09/05/24 History release 24 hr metoprolol tartrate 25 mg tablet 25 mg PO DAILY 09/05/24 09/05/24 History thiothixene 5 mg capsule 5 mg PO TID 09/05/24 09/05/24 History torsemide 100 mg tablet See Rx Instructions .Route .COMPLEX 09/05/24 09/05/24 History Allergies Allergies Allergy/AdvReac Type Severity Reaction Status Date / Time No Known Allergies Allergy Verified 07/24/23 11:18 Mental Status Exam Mental Status Exam Narrative: Pt is alert and oriented; behavior is pleasant but resistant to care; calm; patient is not in distress; dressed in casual attire with poor hygiene; mood is described as calm and affect congruent; eye contact appropriate; Speech is with some latency; otherwise normal rate, volume and prosody and not pressured; no psychomotor agitation/retardation present; thought process is goal directed; Thought content is on not wanting dialysis; with paranoid delusions; denies any SI/HI. Denies AVH though internally preoccupied. Patients insight and judgment impaired. Assessment & Plan Assessment & Plan (1) Bipolar disorder: Status: Acute Code(s): F31.9 - Bipolar disorder, unspecified (2) ESRD needing dialysis: Status: Acute Code(s): N18.6 - End stage renal disease; Z99.2 - Dependence on renal dialysis Plan Patient is a 69 yo male with hx of bipolar/psychosis, catatonia, ESRD on Dialysis MWF, AFib on Eliquis, hypertension, anemia related to chronic kidney disease, aortic stenosis status post TAVR, was admitted from [facility] ED after his reported some manic behaviors as well as psychosis and refusal of medications and treatments. Patient refusing medication, labs and dialysis. Says he just wants to take a break from dialysis. He also says he does not want to and wants to live and seemed surprised to hear that refusing dialysis could end his life; however he continued to refuse, only relenting when it was explained to him that court affirmed healthcare proxy has paid a decision that he needs to get dialysis. Patient making some paranoid statements about the police, needing to be taking in or booked by the police... came to the unit and reports that he has not been taking his medications for at least a month and has been making paranoid statements, thinking someone stole a gun from his safe although he does not have a gun at all. HCP affirmed on 09/08/[address] [place] [address] Green Hide Inspector spoke with patient's and HCP Sujata... She says patient has been confused and disorganized for quite some time, not taking his medications. She agrees that he needs dialysis, to continue his medications, psychiatric and medical, and lab work and agrees that if need be patient is to be restrained in order to treat him including dialysis, medication and labs. Plan: Healthcare proxy signed CV Q 15 minute checks Dialysis Monday Restart home medication Patient educated on: diagnosis, medication risk/benefits and medical condition Informed Consent: understands Reason for continued inpatient stay Substantial Risk for: inability to function Statement Statement: I have reviewed the history and physical and performed a pertinent examination on my patient. No changes have occurred unless specified. If the History and Physical was not performed prior to admission, the Hospitalist's service will be consulted for completing the admission physical. Time Spent With Patient Time: Total time managing care of this patient today ____ minutes.
--- NOTE | 2024-09-06 11:00 | P.CONHOSP_ITS ---
History of Present Illness Data of Consult Service Date: 09/06/24 Primary Care Provider: CARLOS Pretty HPI Reason for consult: Medical evaluation 69-year-old male with a past medical history of end-stage renal disease on dialysis Monday, bipolar affective disorder, history of catatonia, AFib on Eliquis, hypertension, anemia related to chronic kidney disease, aortic stenosis status post TAVR, was admitted from [facility] ED after his reported some manic behaviors as well as psychosis and refusal of medications and treatments. In the ED his head CT was negative for any acute pa thology, his EKG was negative, UA negative, his toxicology screen was negative. His QTC level was noted to be 414. On exam he is alert and answers questions, he declined dialysis this morning, he is placed on a dialysis list for today and they will re-attempt later. Patient also declined to eat or take medications this morning. His lungs have some scattered rhonchi, we will check a chest x-ray if patient is agreeable. Appears to be in no acute distress, does not maintain eye contact, he is hard of hearing but answers appropriately. Discussed at length with him need for dialysis, patient reports that he feels fine and is not going to dialysis. Unable to understand or articulate consequences of not taking medications or not doing dialysis. Review of Systems Review of Systems: He denies any shortness of breath or chest pain, denies any abdominal pain. 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 If so, by whom?: No Do you feel safe in your current relationship?: Yes Is there a partner from a previous relationship who is making you feel unsafe now?: No Are you made to feel afraid or neglected: No Spiritual Healthcare Practices: unknown Episcopalian Healthcare Practices: unknown Cultural Healthcare Practices: unknown Advance Directives: Yes Advance Directives on File: Yes Advance Directives Date on File: 10/11/22 Do you have a plan to hurt others: No Plan Recently lost weight without trying: No How much weight loss: 2-13 pounds Eating poorly because of decreased appetite: No Nutrition screen score: 1 Nutrition Risks: No Nutritional Risk Poor oral hygiene: No service: No Current occupational status: disabled Sexual orientation: Straight/Heterosexual Meds Allergies Allergy/AdvReac Type Severity Reaction Status Date / Time No Known Allergies Allergy Verified 07/24/23 11:18 Active Medications: Current Medications Acetaminophen (Acetaminophen 325 Mg Tablet) 650 mg PO Q6H PRN PRN Reason: Headache/Pain, Scale 1-10 Al Hydroxide/Mg Hydroxide (Magnesium Hydrox/Alum Hydrox 30 Ml Oral.Susp) 30 ml PO Q6H PRN PRN Reason: Heartburn/Nausea Apixaban (Apixaban 2.5 Mg Tablet) 2.5 mg PO BID [facility] Last Admin: 09/06/24 09:50 Dose: Not Given Aripiprazole (Aripiprazole 20 Mg Tablet) 20 mg PO DAILY [facility] Last Admin: 09/06/24 09:50 Dose: Not Given Aripiprazole (Aripiprazole 5 Mg Tablet) 5 mg PO DAILY [facility] Last Admin: 09/06/24 09:50 Dose: Not Given Benztropine Mesylate (Benztropine Mesylate 1 Mg Tablet) 1 mg PO BEDTIME PRN PRN Reason: EPS Benztropine Mesylate (Benztropine Mesylate 1 Mg Tablet) 2 mg PO DAILY [facility] Last Admin: 09/06/24 09:50 Dose: Not Given Divalproex Sodium (Divalproex Sodium Er 500 Mg Tab.Er.24h) 500 mg PO DAILY [facility] Last Admin: 09/06/24 09:50 Dose: Not Given Divalproex Sodium (Divalproex Sodium Er 500 Mg Tab.Er.24h) 1,000 mg PO BEDTIME [facility] Last Admin: 09/05/24 22:12 Dose: Not Given Magnesium Hydroxide (Milk Of Magnesia 30 Ml Oral.Susp) 30 ml PO DAILY PRN PRN Reason: Constipation Metoprolol Tartrate (Metoprolol Tartrate 25 Mg Tablet) 25 mg PO DAILY [facility]; Protocol Last Admin: 09/06/24 09:50 Dose: Not Given Multivitamins/Vitamin C (Multivitamin Tablet) 1 tab PO DAILY [facility] Last Admin: 09/06/24 09:50 Dose: Not Given Nicotine (Nicotine 21 Mg Patch.Td24) 21 mg TRANSDERMA DAILY PRN PRN Reason: smoking cessation Nicotine Polacrilex (Nicotine Polacrilex 2 Mg Gum) 4 mg BUCCAL Q2H PRN PRN Reason: Nicotine Cravings Non-Formulary Medication (Thiothixene) 5 mg PO TID [facility] Torsemide (Torsemide 20 Mg Tablet) 100 mg PO TuThSa [facility]; Protocol Trazodone HCl (Trazodone Hcl 50 Mg Tablet) 50 mg PO BEDTIME MRX1 PRN PRN Reason: Insomnia Home Medications ?Medication ?Instructions ?Recorded ?Confirmed ?Last Taken ?Type apixaban 2.5 mg tablet 2.5 mg PO BID 09/05/24 09/05/24 Unknown History aripiprazole 5 mg tablet 5 mg PO DAILY 09/05/24 09/05/24 Unknown History benztropine 1 mg tablet 1 mg PO BEDTIME PRN EPS 09/05/24 09/05/24 Unknown History benztropine 2 mg tablet 2 mg PO DAILY 09/05/24 09/05/24 Unknown History divalproex 500 mg tablet,extended 500 mg PO DAILY 09/05/24 09/05/24 Unknown History release 24 hr metoprolol tartrate 25 mg tablet 25 mg PO DAILY 09/05/24 09/05/24 Unknown History thiothixene 5 mg capsule 5 mg PO TID 09/05/24 09/05/24 Unknown History torsemide 100 mg tablet See Rx Instructions .Route .COMPLEX 09/05/24 09/05/24 Unknown History Physical Exam Vital Signs and Narrative: Vital Signs: Last Vital Signs Temp 97.7 F 09/06/24 07:54 Pulse 62 09/06/24 07:54 BP 150/68 H 09/06/24 07:54 Pulse Ox 95 09/06/24 07:54 O2 Del Method Room Air 09/06/24 07:54 Alert and oriented X3, minimal responses. Neuro: CN II-X11 intact, no deficits, visual acuity intact. [place], gait slow but steady EYES: PERRLA, EOM intact Cardiac: S1 S2 RRR, No ectopy Pulmonary: lungs clear with coarse rhonchi throughout, No increased WOB. Abdominal: BS active in all 4 quadrants, no guarding or tenderness MSK: Strength 5/5 upper and lower extremities : Deferred Extremities: No edema in lower extremities Psych: mood stable, Quiet and cooperative. Skin: Warm and dry, Intact Assessment and Plan (1) ESRD (end stage renal disease): Status: Acute (2) Dialysis patient: Status: Acute Plan 69 year old male with end-stage renal disease and bipolar disorder who was admitted for exacerbation of lindy and psychosis in the context of noncompliance with dialysis treatments. Bipolar affective disorder/lindy/psychosis Treatment per psychiatric team End-stage renal disease on dialysis/Anemia Normally goes Monday, has been intermittently refusing dialysis Today he declined to go to dialysis which was scheduled this morning, and he will remain on the dialysis schedule and we will attempt later. Procrit per renal team. Discussed at length with patient importance of compliant with dialysis treatments, he continues to refuse at this time. AFib Rate controlled with metoprolol 25 mg daily Eliquis b.i.d. for anticoagulation Congestive heart failure/hypertension Continue torsemide Monday Continues on metoprolol Chest x-ray to rule out exacerbation Thank you for allowing me to participate in the care of this patient. We will follow as needed, Please re consult of any acute complaints or issues arise
[2024-09-06 17:01] LABS: Hemoglobin A1C 74.5660 umol/L; Total Hemoglobin (HGBA1C) 2569.8721 umol/L
[2024-09-06 18:13] LABS: Alanine Aminotransferase 11 U/L (0-40); Albumin Level 4.4 g/dL (3.5-5.0); Anion Gap 18 (12-20); Aspartate Amino Transferase 20 U/L (5-37); Blood Urea Nitrogen 31 mg/dL (9-16); Calcium 9.9 mg/dL (8.4-10.2); Carbon Dioxide 27 mmol/L (22-29); Chloride 98 mmol/L (96-108); Cholesterol 155 mg/dL (<200); Estimated Glomerular Filt Rate 9; HDL Cholesterol 38 mg/dL (>40); Potassium 3.4 mmol/L (3.3-5.1); Sodium 140 mmol/L (135-145); Total Protein 6.8 g/dL (6.5-8.0); Triglycerides 98 mg/dL (<150)
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
[2024-09-06 19:03] LABS: Alkaline Phosphatase 56 U/L (39-117)
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
[2024-09-07 08:59] VITALS: PULSE 84; RESP 20; TEMP 36.5; O2SAT 95
[2024-09-07 19:59] VITALS: RESP 15
--- NOTE | 2024-09-07 20:27 | P.HPPS_ITS ---
HPI Chief Complaint: Unspecified Bipolar D/O Depression Anxiety HPI Past Psychiatric History: Bipolar d/o ? psychosis . Hx M 5 admissions and [facility] in 1990 OP: Ramya Jacobs NP First psychotic/manic break in early . 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 Trauma History: Deferred Diagnostics Vital Signs (24Hr): Vital Signs - 24 hr 09/07/24 08:59 09/07/24 19:59 Temperature 97.7 F Pulse Rate 84 Respiratory Rate 20 15 Pulse Oximetry 95 Oxygen Delivery Method Room Air Labs 09/06/24 16:05 Labs: Laboratory Results - last 48 hr 09/06/24 16:05 Sodium 140 Potassium 3.4 D Chloride 98 Carbon Dioxide 27 Anion Gap 18 BUN 31 H Creatinine 6.33 H* Estim Creat Clear Calc TNP Estimated GFR 9 Random Glucose 82 Estimat Average Glucose 91 Hemoglobin A1c % 4.8 Calcium 9.9 Total Bilirubin 0.8 AST 20 ALT 11 Alkaline Phosphatase 56 Total Protein 6.8 Albumin 4.4 Triglycerides 98 Cholesterol 155 LDL Cholesterol, Calc 98 HDL Cholesterol 38 L Meds/Allergies Meds Home Medications ?Medication ?Instructions ?Recorded ?Confirmed ?Type apixaban 2.5 mg tablet 2.5 mg PO BID 09/05/24 09/05/24 History aripiprazole 5 mg tablet 5 mg PO DAILY 09/05/24 09/05/24 History benztropine 1 mg tablet 1 mg PO BEDTIME PRN EPS 09/05/24 09/05/24 History benztropine 2 mg tablet 2 mg PO DAILY 09/05/24 09/05/24 History divalproex 500 mg tablet,extended 500 mg PO DAILY 09/05/24 09/05/24 History release 24 hr metoprolol tartrate 25 mg tablet 25 mg PO DAILY 09/05/24 09/05/24 History thiothixene 5 mg capsule 5 mg PO TID 09/05/24 09/05/24 History torsemide 100 mg tablet See Rx Instructions .Route .COMPLEX 09/05/24 09/05/24 History Allergies Allergies Allergy/AdvReac Type Severity Reaction Status Date / Time No Known Allergies Allergy Verified 07/24/23 11:18 Assessment & Plan Statement Statement: I have reviewed the history and physical and performed a pertinent examination on my patient. No changes have occurred unless specified. If the History and Physical was not performed prior to admission, the Hospitalist's service will be consulted for completing the admission physical. Time Spent With Patient Time: Total time managing care of this patient today ____ minutes.
--- NOTE | 2024-09-07 20:28 | P.PNPSI_ITS ---
Subjective Subjective Date of Service: 09/07/24 Reason For Visit: Unspecified Bipolar D/O Depression Anxiety Subjective Notes: Conditional Voluntary Interim History: Patient seen psychiatric hospitalization case reviewed with with treatment team. Patient has been refusing medication generally Asking to leave the hospital not sure way he is here. Has been cooperative on the unit not overly agitated Mental Status Exam Mental Status Exam Narrative: Patient casually dressed asking to speak to the nurse generally refusing to engage with this insurance underwriter sales. Generally would not engage in conversation Generally stating he did not need dialysis and if he did would go with Dr. Pena stated he did not need psychiatric medication was not grossly euphoric Diagnostics Vital Signs (24Hr): Vital Signs - 24 hr 09/07/24 08:59 09/07/24 19:59 Temperature 97.7 F Pulse Rate 84 Respiratory Rate 20 15 Pulse Oximetry 95 Oxygen Delivery Method Room Air Labs 09/06/24 16:05 Labs: Laboratory Results - last 48 hr 09/06/24 16:05 Sodium 140 Potassium 3.4 D Chloride 98 Carbon Dioxide 27 Anion Gap 18 BUN 31 H Creatinine 6.33 H* Estim Creat Clear Calc TNP Estimated GFR 9 Random Glucose 82 Estimat Average Glucose 91 Hemoglobin A1c % 4.8 Calcium 9.9 Total Bilirubin 0.8 AST 20 ALT 11 Alkaline Phosphatase 56 Total Protein 6.8 Albumin 4.4 Triglycerides 98 Cholesterol 155 LDL Cholesterol, Calc 98 HDL Cholesterol 38 L Medications Medications Current Medications Acetaminophen (Acetaminophen 325 Mg Tablet) 650 mg PO Q6H PRN PRN Reason: Headache/Pain, Scale 1-10 Al Hydroxide/Mg Hydroxide (Magnesium Hydrox/Alum Hydrox 30 Ml Oral.Susp) 30 ml PO Q6H PRN PRN Reason: Heartburn/Nausea Apixaban (Apixaban 2.5 Mg Tablet) 2.5 mg PO BID [facility] Last Admin: 09/07/24 08:56 Dose: Not Given Aripiprazole (Aripiprazole 20 Mg Tablet) 20 mg PO DAILY [facility] Last Admin: 09/07/24 08:56 Dose: Not Given Aripiprazole (Aripiprazole 5 Mg Tablet) 5 mg PO DAILY [facility] Last Admin: 09/07/24 08:56 Dose: Not Given Benztropine Mesylate (Benztropine Mesylate 1 Mg Tablet) 1 mg PO BEDTIME PRN PRN Reason: EPS Benztropine Mesylate (Benztropine Mesylate 1 Mg Tablet) 2 mg PO DAILY [facility] Last Admin: 09/07/24 08:56 Dose: Not Given Divalproex Sodium (Divalproex Sodium Er 500 Mg Tab.Er.24h) 500 mg PO DAILY [facility] Last Admin: 09/07/24 08:56 Dose: Not Given Divalproex Sodium (Divalproex Sodium Er 500 Mg Tab.Er.24h) 1,000 mg PO BEDTIME [facility] Last Admin: 09/06/24 21:31 Dose: Not Given Magnesium Hydroxide (Milk Of Magnesia 30 Ml Oral.Susp) 30 ml PO DAILY PRN PRN Reason: Constipation Metoprolol Tartrate (Metoprolol Tartrate 25 Mg Tablet) 25 mg PO DAILY [facility]; Protocol Last Admin: 09/07/24 08:57 Dose: Not Given Multivitamins/Vitamin C (Multivitamin Tablet) 1 tab PO DAILY [facility] Last Admin: 09/07/24 08:57 Dose: Not Given Nicotine (Nicotine 21 Mg Patch.Td24) 21 mg TRANSDERMA DAILY PRN PRN Reason: smoking cessation Nicotine Polacrilex (Nicotine Polacrilex 2 Mg Gum) 4 mg BUCCAL Q2H PRN PRN Reason: Nicotine Cravings Non-Formulary Medication (Thiothixene) 5 mg PO TID [facility] Torsemide (Torsemide 20 Mg Tablet) 100 mg PO TuThSa [facility]; Protocol Last Admin: 09/07/24 08:56 Dose: Not Given Trazodone HCl (Trazodone Hcl 50 Mg Tablet) 50 mg PO BEDTIME MRX1 PRN PRN Reason: Insomnia Allergies Allergies Allergy/AdvReac Type Severity Reaction Status Date / Time No Known Allergies Allergy Verified 07/24/23 11:18 Assessment & Plan Assessment & Plan (1) ESRD needing dialysis: Status: Acute Code(s): N18.6 - End stage renal disease; Z99.2 - Dependence on renal dialysis Plan Marco Holcomb is a 69 year old male with past medical history of ESRD on HD, bipolar disorder, Afib on Eliquis, s/p TAVR, hypertension, hyperlipidemia who presented to [facility] with erratic behavior over the past few weeks. Seen by Psych for decompensated bipolar illness in the inpt psych unit. Nephrology consulted for ESRD. 1. ESRD Dialyzes MWF at [facility] via LUE AVF 2. 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 Mineral Bone Disease Ca 9.6 (09/04) Phos 9.0 (08/21) PTH 484 (08/07) Recommendations: - F/u Phos - Continue HD on MWF schedule - Continue metoprolol 25 mg daily and torsemide 100 mg non-HD days - Renal diet 09/07/2024 Continue psychiatric medication there is and affirmed healthcare proxy. Patient with no understanding of why he is here encourage therapeutic [place] encourage med compliance Reason for continued inpatient stay Substantial Risk for: inability to function and rapid decompensation Time Spent With Patient Time: Total time managing care of this patient today ____ minutes.
[2024-09-08 08:00] VITALS: BP 169/80; PULSE 66; RESP 17; TEMP 36.5; O2SAT 100
--- NOTE | 2024-09-08 11:25 | PC.NURSE ---
Pt refused to take all scheduled morning medication but was willing to take Elliquis only. Despite medication education he still declines. His BP this morning was 169/[address] Galvan is aware. He refused to allow BP recheck and also refused morning labs. When asked why he reports I don't want to right now and when asked when he would be open to draw/medication administration, he declined to answer. Will continue to monitor and encourage medication adherence.
[2024-09-08 20:00] VITALS: BP 141/67; PULSE 70; RESP 15; TEMP 36.4; O2SAT 96
--- NOTE | 2024-09-08 23:07 | P.PNPSI_ITS ---
Subjective Subjective Date of Service: 09/08/24 Reason For Visit: Unspecified Bipolar D/O Depression Anxiety Subjective Notes: Section 12B (expires on 09/10) Interim History: Patient seen, walking out of his room. Hunched posture, mild bilat tremor. limited insight into why he is here. Here for an eval I guess can not relay any info pertaining to reasons for hospitalization. Mood is okay says he is sleeping. When asked if he is taking meds, he responds you're not my doctor (as if he just noticed) and walked off and did not respond to my attempts to engage him to return. Review of Systems Review of Systems He denies any shortness of breath or chest pain, denies any abdominal pain. Reports that he feels weak Mental Status Exam Mental Status Exam Narrative: Patient casually dressed asking to speak to the nurse generally refusing to engage with this poem writer. Generally would not engage in conversation Generally stating he did not need dialysis and if he did would go with Dr. Pena stated he did not need psychiatric medication was not grossly euphoric Diagnostics Vital Signs (24Hr): Vital Signs - 24 hr 09/08/24 08:00 09/08/24 20:00 Temperature 97.7 F 97.6 F Pulse Rate 66 70 Respiratory Rate 17 15 Blood Pressure 169/80 H 141/67 H Pulse Oximetry 100 96 Oxygen Delivery Method Room Air Labs 09/06/24 16:05 Medications Medications Current Medications Acetaminophen (Acetaminophen 325 Mg Tablet) 650 mg PO Q6H PRN PRN Reason: Headache/Pain, Scale 1-10 Al Hydroxide/Mg Hydroxide (Magnesium Hydrox/Alum Hydrox 30 Ml Oral.Susp) 30 ml PO Q6H PRN PRN Reason: Heartburn/Nausea Apixaban (Apixaban 2.5 Mg Tablet) 2.5 mg PO BID [facility] Last Admin: 09/08/24 21:01 Dose: Not Given Aripiprazole (Aripiprazole 20 Mg Tablet) 20 mg PO DAILY [facility] Last Admin: 09/08/24 09:02 Dose: Not Given Aripiprazole (Aripiprazole 5 Mg Tablet) 5 mg PO DAILY [facility] Last Admin: 09/08/24 09:02 Dose: Not Given Benztropine Mesylate (Benztropine Mesylate 1 Mg Tablet) 1 mg PO BEDTIME PRN PRN Reason: EPS Benztropine Mesylate (Benztropine Mesylate 1 Mg Tablet) 2 mg PO DAILY [facility] Last Admin: 09/08/24 09:02 Dose: Not Given Divalproex Sodium (Divalproex Sodium Er 500 Mg Tab.Er.24h) 500 mg PO DAILY [facility] Last Admin: 09/08/24 09:02 Dose: Not Given Divalproex Sodium (Divalproex Sodium Er 500 Mg Tab.Er.24h) 1,000 mg PO BEDTIME [facility] Last Admin: 09/08/24 21:01 Dose: Not Given Magnesium Hydroxide (Milk Of Magnesia 30 Ml Oral.Susp) 30 ml PO DAILY PRN PRN Reason: Constipation Metoprolol Tartrate (Metoprolol Tartrate 25 Mg Tablet) 25 mg PO DAILY [facility]; Protocol Last Admin: 09/08/24 09:02 Dose: Not Given Multivitamins/Vitamin C (Multivitamin Tablet) 1 tab PO DAILY [facility] Last Admin: 09/08/24 09:02 Dose: Not Given Nicotine (Nicotine 21 Mg Patch.Td24) 21 mg TRANSDERMA DAILY PRN PRN Reason: smoking cessation Nicotine Polacrilex (Nicotine Polacrilex 2 Mg Gum) 4 mg BUCCAL Q2H PRN PRN Reason: Nicotine Cravings Non-Formulary Medication (Thiothixene) 5 mg PO TID [facility] Torsemide (Torsemide 20 Mg Tablet) 100 mg PO TuThSa [facility]; Protocol Last Admin: 09/07/24 08:56 Dose: Not Given Trazodone HCl (Trazodone Hcl 50 Mg Tablet) 50 mg PO BEDTIME MRX1 PRN PRN Reason: Insomnia Allergies Allergies Allergy/AdvReac Type Severity Reaction Status Date / Time No Known Allergies Allergy Verified 07/24/23 11:18 Assessment & Plan Assessment & Plan (1) ESRD needing dialysis: Status: Acute Code(s): N18.6 - End stage renal disease; Z99.2 - Dependence on renal dialysis Plan Marco Holcomb is a 69 year old male with past medical history of ESRD on HD, bipolar disorder, Afib on Eliquis, s/p TAVR, hypertension, hyperlipidemia who [place] [facility] [place] behavior over the past few weeks. Seen by Psych for decompensated bipolar illness in the inpt psych unit. Nephrology consulted for ESRD. 1. ESRD Dialyzes MWF at [facility] via LUE AVF 2. 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 Mineral Bone Disease Ca 9.6 (09/04) Phos 9.0 (08/21) PTH 484 (08/07) Recommendations: - F/u Phos - Continue HD on MWF schedule - Continue metoprolol 25 mg daily and torsemide 100 mg non-HD days - Renal diet 09/07/2024 Continue psychiatric medication there is and affirmed healthcare proxy. Patient with no understanding of why he is here encourage therapeutic Mathews encourage med compliance Reason for continued inpatient stay Substantial Risk for: inability to function and med/psych decompensation Time Spent With Patient Time: Total time managing care of this patient today ____ minutes.
[2024-09-09 08:00] VITALS: BP 141/82; PULSE 72; TEMP 36.7; O2SAT 94
--- NOTE | 2024-09-09 10:06 | HO.PSYCHPN ---
Subjective Subjective Date of Service: 09/09/24 Reason For Visit: Unspecified Bipolar D/O Depression Anxiety Interim History: Met with patient; discussed with team Patient remains confused and with paranoid ideations; calling 911 multiple times, asking for there to be a check about guns... Says he does not need medications... He does not need dialysis. Coin Wrapping Machine Operator again thoroughly reviewed that dialysis is life saving for him; patient continues to purport that his kidneys function fine and he does not need dialysis; he does not want to at all but does not believe that he will without dialysis Mental Status Exam Mental Status Exam Narrative: Pt is alert and oriented; behavior is pleasant on approach but resistant to care; calm; patient is not in distress; dressed in casual attire with poor hygiene; mood is described as calm and affect congruent; eye contact avoidant; Speech is with some latency; otherwise normal rate, volume and prosody and not pressured; no psychomotor agitation/retardation present; thought process is goal directed but can be circular; Thought content is on not wanting dialysis; with paranoid delusions; denies any SI/HI. Denies AVH though internally preoccupied. Patients insight and judgment impaired. Diagnostics Vital Signs (24Hr): Vital Signs - 24 hr 09/08/24 20:00 09/09/24 08:00 Temperature 97.6 F 98.1 F Pulse Rate 70 72 Respiratory Rate 15 Blood Pressure 141/67 H 141/82 H Pulse Oximetry 96 94 Oxygen Delivery Method Room Air Labs 09/06/24 16:05 Medications Medications Current Medications Acetaminophen (Acetaminophen 325 Mg Tablet) 650 mg PO Q6H PRN PRN Reason: Headache/Pain, Scale 1-10 Al Hydroxide/Mg Hydroxide (Magnesium Hydrox/Alum Hydrox 30 Ml Oral.Susp) 30 ml PO Q6H PRN PRN Reason: Heartburn/Nausea Apixaban (Apixaban 2.5 Mg Tablet) 2.5 mg PO BID [facility] Last Admin: 09/08/24 21:01 Dose: Not Given Aripiprazole (Aripiprazole 20 Mg Tablet) 20 mg PO DAILY [facility] Last Admin: 09/08/24 09:02 Dose: Not Given Aripiprazole (Aripiprazole 5 Mg Tablet) 5 mg PO DAILY [facility] Last Admin: 09/08/24 09:02 Dose: Not Given Benztropine Mesylate (Benztropine Mesylate 1 Mg Tablet) 1 mg PO BEDTIME PRN PRN Reason: EPS Benztropine Mesylate (Benztropine Mesylate 1 Mg Tablet) 2 mg PO DAILY [facility] Last Admin: 09/08/24 09:02 Dose: Not Given Divalproex Sodium (Divalproex Sodium Er 500 Mg Tab.Er.24h) 500 mg PO DAILY [facility] Last Admin: 09/08/24 09:02 Dose: Not Given Divalproex Sodium (Divalproex Sodium Er 500 Mg Tab.Er.24h) 1,000 mg PO BEDTIME [facility] Last Admin: 09/08/24 21:01 Dose: Not Given Magnesium Hydroxide (Milk Of Magnesia 30 Ml Oral.Susp) 30 ml PO DAILY PRN PRN Reason: Constipation Metoprolol Tartrate (Metoprolol Tartrate 25 Mg Tablet) 25 mg PO DAILY [facility]; Protocol Last Admin: 09/08/24 09:02 Dose: Not Given Multivitamins/Vitamin C (Multivitamin Tablet) 1 tab PO DAILY [facility] Last Admin: 09/08/24 09:02 Dose: Not Given Nicotine (Nicotine 21 Mg Patch.Td24) 21 mg TRANSDERMA DAILY PRN PRN Reason: smoking cessation Nicotine Polacrilex (Nicotine Polacrilex 2 Mg Gum) 4 mg BUCCAL Q2H PRN PRN Reason: Nicotine Cravings Non-Formulary Medication (Thiothixene) 5 mg PO TID [facility] Torsemide (Torsemide 20 Mg Tablet) 100 mg PO TuThSa [facility]; Protocol Last Admin: 09/07/24 08:56 Dose: Not Given Trazodone HCl (Trazodone Hcl 50 Mg Tablet) 50 mg PO BEDTIME MRX1 PRN PRN Reason: Insomnia Allergies Allergies Allergy/AdvReac Type Severity Reaction Status Date / Time No Known Allergies Allergy Verified 07/24/23 11:18 Assessment & Plan Assessment & Plan (1) ESRD needing dialysis: Status: Acute Code(s): N18.6 - End stage renal disease; Z99.2 - Dependence on renal dialysis (2) Noncompliance by declining intervention or support: Status: Acute Code(s): Z91.199 - Patient's noncompliance with other medical treatment and regimen due to unspecified reason Plan HPI: Patient is a 69 yo male with hx of bipolar/psychosis, catatonia, ESRD on Dialysis MWF, AFib on Eliquis, hypertension, anemia related to chronic kidney disease, aortic stenosis status post TAVR, was admitted from [facility] ED after his reported some manic behaviors as well as psychosis and refusal of medications and treatments. Patient refusing medication, labs and dialysis. Says he just wants to take a break from dialysis. He also says he does not want to and wants to live and seemed surprised to hear that refusing dialysis could end his life; however he continued to refuse, only relenting when it was explained to him that court affirmed healthcare proxy has paid a decision that he needs to get dialysis. Patient making some paranoid statements about the police, needing to be taking in or booked by the police... came to the unit and reports that he has not been taking his medications for at least a month and has been making paranoid statements, thinking someone stole a gun from his safe although he does not have a gun at all. HCP affirmed on 09/08/[address] [place] [address] Coin Wrapping Machine Operator spoke with patient's and HCP Sujata... She says patient has been confused and disorganized for quite some time, not taking his medications. She agrees that he needs dialysis, to continue his medications, psychiatric and medical, and lab work and agrees that if need be patient is to be restrained in order to treat him including dialysis, medication and labs. Formulation/clinical reasoning: Patient is confused with paranoid delusions; does not have capacity to make medical decisions and healthcare proxy remains affirmed and necessary. Patient disorganized saying he wants to live but does not want dialysis and can not accept that without dialysis he will . Discussed case with who concurs that when patient is on psychiatric medications and organized, he continues to want dialysis Hospital course: 09/09 patient grudgingly agreed to dialysis, understanding that it is to be enforced otherwise. Patient remains confused and with paranoid ideations; calling 911 multiple times, asking for there to be a check about guns...? Says he does not need medications...? He does not need dialysis.? Coin Wrapping Machine Operator again thoroughly reviewed that dialysis is life saving for him; patient continues to purport that his kidneys function fine and he does not need dialysis; he does not want to at all but does not believe that he will without dialysis Plan: Healthcare proxy signed CV healthcare proxy court affirmed who authorizes patient to be restrained physically and/or with medication as needed to treat him for dialysis, medications and labs; authorizes IM medication substitutes if patient refuses p.o. medications Q 15 minute checks Continue Abilify 25 mg daily: Court appointed HCP approves to give Zyprexa IM if refuses p.o. Abilify Continue Depakote ER 500 mg q.h.s. and titrate back to home dose: Court appointed HCP approves to give Zyprexa IM if refuses p.o. depakote 1. ESRD: Dialyzes MWF at [facility] via LUE AVF 2. 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 Mineral Bone Disease Ca 9.6 (09/04) Phos 9.0 (08/21) PTH 484 (08/07) Recommendations: - F/u Phos - Continue HD on MWF schedule - Continue metoprolol 25 mg daily and torsemide 100 mg non-HD days - Renal diet Patient educated on: diagnosis, medication risk/benefits and medical condition Informed Consent: does not understand Reason for continued inpatient stay Substantial Risk for: inability to function Time Spent With Patient Time: Total time managing care of this patient today ____ minutes.
--- NOTE | 2024-09-09 12:29 | PC.NURSE ---
Pt returned from dialysis. Pt refusing to speak with staff. Sat over by the pt phones. Refused am meds. Refused to speak with this automobile service writer. Pt dialed 911 to request to speak with a energy control officer but was unable to hear what the dispatcher was saying. Dispatchhank Butcher returned call to the nurses station to make sure everything was ok. Pt continues to call 911. Received another call from Dispatchhank butcher to let us know he was calling 911 again. I spoke with our security and they will come up and let him know he cannot continue to call 911. Dr. Mccord notified.
--- NOTE | 2024-09-09 14:37 | PM.PNNEP ---
Subjective Subjective Date of Service: 09/09/24 Interval history: Seen and examined,giovanni hernandez noted Physical Exam Vital Signs: Vital Signs: Last Vital Signs Temp 98.1 F 09/09/24 08:00 Pulse 72 09/09/24 08:00 Resp 15 09/08/24 20:00 BP 141/82 H 09/09/24 08:00 Pulse Ox 94 09/09/24 08:00 O2 Del Method Room Air 09/09/24 08:00 Objective Data Labs 09/06/24 16:05 Procedures Date of Service Date of Service: 09/09/24 Assessment & Plan Assessment and plan (1) ESRD needing dialysis: Status: Acute Plan Marco Holcomb is a 69 year old male with past medical history of ESRD on HD, bipolar disorder, Afib on Eliquis, s/p TAVR, hypertension, hyperlipidemia who presented to [facility] with erratic behavior over the past few weeks. Seen by Psych for decompensated bipolar illness in the inpt psych unit. Nephrology consulted for ESRD. 1. ESRD Dialyzes MWF at [facility] via LUE AVF 2. Hypertension / Volume Chronically pt is taking metoprolol 25 mg daily and torsemide 100 mg non-HD days 3. Nephrogenic Anemia Hgb 9.4 (6/4) TSat 71%, Ferritin 1465 (08/07) 4. Mineral Bone Disease Ca 9.6 (6/4) Phos 9.0 (08/21) PTH 484 (08/07) Recommendations: - F/u Phos - Continue HD on MWF schedule - Continue metoprolol 25 mg daily and torsemide 100 mg non-HD days - Renal diet - cont psych adjsut meds as needed Will follow w team Time Spent With Patient Time: Total time managing care of this patient today ____ minutes.
--- NOTE | 2024-09-09 22:38 | PC.NURSE ---
Pt refused bedtime medications Pito. , Jennie Sanchez [employer]BE[employer]OS BRAKE LINING FINISHER HELPER notified
[2024-09-10 08:00] VITALS: BP 170/96; PULSE 84; TEMP 36.6; O2SAT 97
[2024-09-10] MEDS: ARIPiprazole 30 MG TABLET PO (08:58)
[2024-09-10 20:00] VITALS: BP 176/81; PULSE 74; RESP 18; TEMP 36.8; O2SAT 98
[2024-09-10] MEDS: THIOTHIXENE 5 MG 5 EACH PO (22:23)
[2024-09-10] MEDS: OLANZapine 10 MG VIAL 5 MG IM (22:40)
[2024-09-11 08:00] VITALS: BP 163/72; PULSE 80; RESP 16; TEMP 36.7; O2SAT 98
--- NOTE | 2024-09-11 10:44 | HO.PSYEVENT ---
Event Note Date of Service: 10/24/24 Psych Restraint Event Note: Patient has healthcare proxy which the court has affirmed and who authorizes patient to be restrained physically and/or with medication as needed to treat him for dialysis, medications and labs. pt requires Dialysis and due to psychotic illness is refusing this life sustaining measure; HCP affirmed by court authorizes use of restraints as needed, both medication and physical, in order to administer Dialysis. Pt refusing treatment... customs entry writer and nursing discussed necessity however patient can not understand his medical need for dialysis and despite repeated attempts remains unable to be redirected and refusing dialysis. Staff and security necessary to escort patient into wheelchair Order for restraint 10:50am. Time Spent With Patient Time: Total time managing care of this patient today ____ minutes.
--- NOTE | 2024-09-11 10:46 | HO.BHRESTREX ---
Behavioral Restraint Exam Behavioral Health Restraint Exam Type of Restraint: Physical Hold Reason for Restraint: Occurrence of self-harming or suicidal behavior as evidenced by: (self harm by refusing dialysis) Behavioral Assessment / Plan: No further behavioral concerns, continue current plan. Comment: Patient sitting comfortably in wheelchair
[2024-09-11] MEDS: diazePAM 10 MG/2 ML CARTRIDGE 5 MG IM ×2 (10:56→12:48)
[2024-09-11 11:15] VITALS: RESP 16
[2024-09-11 11:30] VITALS: RESP 18
[2024-09-11 12:00] VITALS: RESP 18
--- NOTE | 2024-09-11 12:01 | PC.NURSE ---
Pt restrained d/t refusing medications. Pt needed to be held for IMs. Pt has affirmed HCP.
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
--- NOTE | 2024-09-11 12:43 | HO.PSYCHPN ---
Subjective Subjective Date of Service: 09/11/24 Reason For Visit: Unspecified Bipolar D/O Depression Anxiety Interim History: Late entry note for patient seen on 09/10/2024; discussed with team; chief underwriter discussed case with Dr. Pena, billing auditor Patient remains paranoid and delusional. Does not understand medical needs at all. Patient asked why he is on Eliquis; chief underwriter explained history of AFib however patient says but I feel fine... And can not accept his need for any of his medications or that he has any medical illness, continuing to say but I feel fine... Again says he does not need dialysis. Asked also why he is being offered Depakote and Abilify and again denies that he has any mental illness and does not need these medications. Patient very much wants to talk to Dr. Pena Typing Section Chief discussed case with Dr. Pena who concurs that when patient is on psychiatric medications and stable he does not fact want to continue with dialysis and enjoys spending time with his family Mental Status Exam Mental Status Exam Narrative: Pt is alert and oriented; behavior is pleasant on approach but resistant to care; calm; patient is not in distress; dressed in casual attire with poor hygiene; mood is described as calm and affect congruent; eye contact avoidant; Speech is with some latency; otherwise normal rate, volume and prosody and not pressured; no psychomotor agitation/retardation present; thought process is goal directed but can be circular; Thought content is on not wanting dialysis; with paranoid delusions; denies any SI/HI. Denies AVH though internally preoccupied. Patients insight and judgment impaired. Diagnostics Vital Signs (24Hr): Vital Signs - 24 hr 09/10/24 20:00 09/11/24 08:00 09/11/24 11:15 Temperature 98.2 F 98.1 F Pulse Rate 74 80 Respiratory Rate 18 16 16 Blood Pressure 176/81 H 163/72 H Pulse Oximetry 98 98 Oxygen Delivery Method Room Air Room Air 09/11/24 11:30 09/11/24 12:00 Temperature Pulse Rate Respiratory Rate 18 18 Blood Pressure Pulse Oximetry Oxygen Delivery Method Labs 09/06/24 16:05 Medications Medications Current Medications Acetaminophen (Acetaminophen 325 Mg Tablet) 650 mg PO Q6H PRN PRN Reason: Headache/Pain, Scale 1-10 Al Hydroxide/Mg Hydroxide (Magnesium Hydrox/Alum Hydrox 30 Ml Oral.Susp) 30 ml PO Q6H PRN PRN Reason: Heartburn/Nausea Apixaban (Apixaban 2.5 Mg Tablet) 2.5 mg PO BID [facility] Last Admin: 09/10/24 22:26 Dose: Not Given Aripiprazole (Aripiprazole 5 Mg Tablet) 25 mg PO DAILY [facility] Benztropine Mesylate (Benztropine Mesylate 1 Mg Tablet) 1 mg PO BEDTIME PRN PRN Reason: EPS Benztropine Mesylate (Benztropine Mesylate 1 Mg Tablet) 2 mg PO DAILY [facility] Last Admin: 09/10/24 10:05 Dose: Not Given Divalproex Sodium (Divalproex Sodium Er 500 Mg Tab.Er.24h) 500 mg PO BEDTIME [facility] Last Admin: 09/10/24 22:26 Dose: Not Given Magnesium Hydroxide (Milk Of Magnesia 30 Ml Oral.Susp) 30 ml PO DAILY PRN PRN Reason: Constipation Metoprolol Tartrate (Metoprolol Tartrate 25 Mg Tablet) 25 mg PO DAILY [facility]; Protocol Last Admin: 09/10/24 10:05 Dose: Not Given Multivitamins/Vitamin C (Multivitamin Tablet) 1 tab PO DAILY [facility] Last Admin: 09/10/24 10:05 Dose: Not Given Nicotine (Nicotine 21 Mg Patch.Td24) 21 mg TRANSDERMA DAILY PRN PRN Reason: smoking cessation Nicotine Polacrilex (Nicotine Polacrilex 2 Mg Gum) 4 mg BUCCAL Q2H PRN PRN Reason: Nicotine Cravings Pt Own (Thiothixene (5 Mg Capsule)) 5 mg PO TID [facility] Last Admin: 09/10/24 22:23 Dose: 5 mg Olanzapine (Olanzapine 10 Mg Vial) 10 mg IM DAILY PRN PRN Reason: if refuses PO Abilify Olanzapine (Olanzapine 10 Mg Vial) 5 mg IM BID PRN PRN Reason: give if refuses Depakote Last Admin: 09/10/24 22:40 Dose: 5 mg Torsemide (Torsemide 20 Mg Tablet) 100 mg PO TuThSa [facility]; Protocol Last Admin: 09/10/24 06:30 Dose: Not Given Trazodone HCl (Trazodone Hcl 50 Mg Tablet) 50 mg PO BEDTIME MRX1 PRN PRN Reason: Insomnia Allergies Allergies Allergy/AdvReac Type Severity Reaction Status Date / Time No Known Allergies Allergy Verified 07/24/23 11:18 Assessment & Plan Assessment & Plan (1) ESRD needing dialysis: Status: Acute Code(s): N18.6 - End stage renal disease; Z99.2 - Dependence on renal dialysis Plan HPI: Patient is a 69 yo male with hx of bipolar/psychosis, catatonia, ESRD on Dialysis MWF, AFib on Eliquis, hypertension, anemia related to chronic kidney disease, aortic stenosis status post TAVR, was admitted from [facility] ED after his reported some manic behaviors as well as psychosis and refusal of medications and treatments. Patient refusing medication, labs and dialysis. Says he just wants to take a break from dialysis. He also says he does not want to and wants to live and seemed surprised to hear that refusing dialysis could end his life; however he continued to refuse, only relenting when it was explained to him that court affirmed healthcare proxy has paid a decision that he needs to get dialysis. Patient making some paranoid statements about the police, needing to be taking in or booked by the police... came to the unit and reports that he has not been taking his medications for at least a month and has been making paranoid statements, thinking someone stole a gun from his safe although he does not have a gun at all. HCP affirmed on 09/08/[address] [place] [address] Typing Section Chief spoke with patient's and HCP Sujata... She says patient has been confused and disorganized for quite some time, not taking his medications. She agrees that he needs dialysis, to continue his medications, psychiatric and medical, and lab work and agrees that if need be patient is to be restrained in order to treat him including dialysis, medication and labs. Formulation/clinical reasoning: Patient is confused with paranoid delusions; does not have capacity to make medical decisions and healthcare proxy remains affirmed and necessary. Patient disorganized saying he wants to live but does not want dialysis and can not accept that without dialysis he will . Discussed case with , Dr. Pena who concur that when patient is on psychiatric medications and organized, he continues to want dialysis Hospital course: 09/09 patient grudgingly agreed to dialysis, understanding that it is to be enforced otherwise. Patient remains confused and with paranoid ideations; calling 911 multiple times, asking for there to be a check about guns...? Says he does not need medications...? He does not need dialysis.? Typing Section Chief again thoroughly reviewed that dialysis is life saving for him; patient continues to purport that his kidneys function fine and he does not need dialysis; he does not want to at all but does not believe that he will without dialysis 09/10 Patient remains paranoid and delusional. Does not understand medical needs at all. Patient asked why he is on Eliquis; chief underwriter explained history of AFib however patient says but I feel fine... And can not accept his need for any of his medications or that he has any medical illness, continuing to say but I feel fine... Again says he does not need dialysis. Asked also why he is being offered Depakote and Abilify and again denies that he has any mental illness and does not need these medications. Patient very much wants to talk to Dr. Pena -Typing Section Chief discussed case with Dr. Pena who concurs that when patient is on psychiatric medications and stable he does not fact want to continue with dialysis and enjoys spending time with his family Plan: Healthcare proxy signed CV healthcare proxy court affirmed who authorizes patient to be restrained physically and/or with medication as needed to treat him for dialysis, medications and labs; authorizes IM medication substitutes if patient refuses p.o. medications Q 15 minute checks Continue Abilify 25 mg daily: Court appointed HCP approves to give Zyprexa IM if refuses p.o. Abilify Continue Depakote ER 500 mg q.h.s. and titrate back to home dose: Court appointed HCP approves to give Zyprexa IM if refuses p.o. depakote 1. ESRD: Dialyzes MWF at [facility] via LUE AVF 2. 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 Mineral Bone Disease Ca 9.6 (09/04) Phos 9.0 (08/21) PTH 484 (08/07) Recommendations: - F/u Phos - Continue HD on MWF schedule Patient educated on: diagnosis, medication risk/benefits and medical condition Informed Consent: does not understand Reason for continued inpatient stay Substantial Risk for: inability to function Time Spent With Patient Time: Total time managing care of this patient today ____ minutes.
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
--- NOTE | 2024-09-11 14:39 | HO.PSYEVENT ---
Event Note Date of Service: 10/24/24 Psych Restraint Event Note: Patient has healthcare proxy which the court has affirmed and who authorizes patient to be restrained physically and/or with medication as needed to treat him for dialysis, medications and labs. Patient continuing with dialysis, intermittently trying to remove dialysis tubing and requiring continue physical restraint Restraint renewed 1450 Time Spent With Patient Time: Total time managing care of this patient today ____ minutes.
--- NOTE | 2024-09-11 14:39 | HO.BHRESTREX ---
Behavioral Restraint Exam Behavioral Health Restraint Exam Type of Restraint: Physical Hold Reason for Restraint: Substantial Risk of Harm to Others Behavioral Assessment / Plan: No further behavioral concerns, continue current plan.
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
[2024-09-11 20:00] VITALS: BP 104/55; PULSE 94; TEMP 36.5; O2SAT 95
[2024-09-11] MEDS: THIOTHIXENE 5 MG 5 EACH PO (22:10)
[2024-09-11] MEDS: OLANZapine 10 MG VIAL 5 MG IM (22:29)
--- NOTE | 2024-09-12 02:35 | P.PNNP_ITS ---
Subjective Subjective Date of Service: 09/11/24 Interval history: Seen at Dialysis today Refusing treatment Clearly not competent as he is refusing Dialysis bit does not want to Psychaitry present and case d/w them in detail Physical Exam 2 Vital Signs: Vital Signs: Last Vital Signs Temp 97.7 F 09/11/24 20:00 Pulse 94 09/11/24 20:00 Resp 18 09/11/24 12:00 BP 104/55 L 09/11/24 20:00 Pulse Ox 95 09/11/24 20:00 O2 Del Method Room Air 09/11/24 20:00 Objective Data Labs 09/06/24 16:05 Procedures Date of Service Date of Service: 09/12/24 Assessment & Plan Assessment and plan (1) ESRD needing dialysis: Status: Acute Plan Marco Holcomb is a 69 year old male with past medical history of ESRD on HD, bipolar disorder, Afib on Eliquis, s/p TAVR, hypertension, hyperlipidemia who presented to [facility] with erratic behavior over the past few weeks. Seen by Psych for decompensated bipolar illness in the inpt psych unit. Nephrology consulted for ESRD. 1. ESRD Dialyzes MWF at [facility] via LUE AVF 2. Hypertension / Volume Chronically pt is taking metoprolol 25 mg daily and torsemide 100 mg non-HD days 3. Nephrogenic Anemia 4. Mineral Bone Disease Recommendations: -cont HD 3x/wk using restraints and sedative meds as needed and rec by marco given he is not competent and his is Hpxy - routine dialysis labs ordered refusing labs and they were not drawn today at dialysis so will order for tomorrow Will follow w team Time Spent With Patient Time: Total time managing care of this patient today ____ minutes.
[2024-09-12 09:08] VITALS: BP 110/56; PULSE 87; RESP 18; TEMP 36.5; O2SAT 96
[2024-09-12 20:00] VITALS: BP 119/60; PULSE 77; TEMP 36.4; O2SAT 97
[2024-09-12] MEDS: THIOTHIXENE 5 MG 5 EACH PO (21:44)
[2024-09-13 07:59] VITALS: BP 112/67; PULSE 79; TEMP 36.8; O2SAT 94
[2024-09-13 10:41] LABS: Anion Gap 16 (12-20); Blood Urea Nitrogen 41 mg/dL (9-16); Calcium 9.8 mg/dL (8.4-10.2); Carbon Dioxide 29 mmol/L (22-29); Chloride 97 mmol/L (96-108); Estimated Glomerular Filt Rate 7; Potassium 3.6 mmol/L (3.3-5.1); Sodium 138 mmol/L (135-145)
[2024-09-13] MEDS: diazePAM 10 MG/2 ML CARTRIDGE IM (10:56)
--- NOTE | 2024-09-13 13:27 | PC.NURSE ---
Mr. Holcomb returned from dialysis at 1:25pm. Approximately one hour into the treatment, giuliana Brewer RN called to report that the patient was becoming agitated. Dr. Mccord ordered diazepam 10mg IM and haldol 10mg IM which was administered at 10:56am. Good effect was noted and he was able to cmplete the treatment with no further distress.
--- NOTE | 2024-09-13 16:04 | P.PNNP_ITS ---
Subjective Subjective Date of Service: 09/13/24 Interval history: Seen at Dialysis today Cont Refusing treatment and incr sedation so HD can be done Clearly not competent as he is refusing Dialysis bit does not want to Physical Exam 2 Vital Signs: Vital Signs: Last Vital Signs Temp 98.2 F 09/13/24 07:59 Pulse 79 09/13/24 07:59 Resp 18 09/12/24 09:08 BP 112/67 09/13/24 07:59 Pulse Ox 94 09/13/24 07:59 O2 Del Method Room Air 09/13/24 07:59 Objective Data Labs 09/13/24 10:10 Labs: Laboratory Results - last 24 hr 09/13/24 10:10 Hold Purple Top SEE NOTE Sodium 138 Potassium 3.6 Chloride 97 Carbon Dioxide 29 Anion Gap 16 BUN 41 H Creatinine 7.27 H* Estim Creat Clear Calc TNP Estimated GFR 7 Random Glucose 180 H Calcium 9.8 Procedures Date of Service Date of Service: 09/13/24 Assessment & Plan Assessment and plan (1) ESRD needing dialysis: Status: Acute Plan Marco Holcomb is a 69 year old male with past medical history of ESRD on HD, bipolar disorder, Afib on Eliquis, s/p TAVR, hypertension, hyperlipidemia who presented to [facility] with erratic behavior over the past few weeks. Seen by Psych for decompensated bipolar illness in the inpt psych unit. Nephrology consulted for ESRD. 1. ESRD Dialyzes MWF at [facility] via LUE AVF 2. Hypertension / Volume Chronically pt is taking metoprolol 25 mg daily and torsemide 100 mg non-HD days 3. Nephrogenic Anemia 4. Mineral Bone Disease Recommendations: -cont HD 3x/wk using restraints and sedative meds as needed and rec by marco given he is not competent and his is Hpxy - routine dialysis labs ordered Will follow w team Time Spent With Patient Time: Total time managing care of this patient today ____ minutes.
[2024-09-13] MEDS: [UNRECOGNIZED DRUG - OTHER] 1 EACH PO ×2 (17:00→22:27)
--- NOTE | 2024-09-13 19:33 | HO.PSYCHPN ---
Subjective Subjective Date of Service: 09/12/24 Reason For Visit: Unspecified Bipolar D/O Depression Anxiety Interim History: Late entry progress note for patient seen on 09/12 Met with patient; discussed with team Patient agreed to dialysis tomorrow. Remains confused about why he needs medications, dialysis. Nuclear Powerplant Supervisor continues to explain the reasons for both of these things however patient continues to challenge them. Otherwise remains calm and in good behavioral and impulse control. Mental Status Exam Mental Status Exam Narrative: Pt is alert and oriented; behavior is pleasant on approach but resistant to care; calm; patient is not in distress; dressed in casual attire with poor hygiene; mood is described as calm and affect congruent; eye contact avoidant; Speech is with some latency; otherwise normal rate, volume and prosody and not pressured; no psychomotor agitation/retardation present; thought process is goal directed but can be circular; Thought content is on not wanting dialysis; with paranoid delusions; denies any SI/HI. Denies AVH though internally preoccupied. Patients insight and judgment impaired. Diagnostics Vital Signs (24Hr): Vital Signs - 24 hr 09/12/24 20:00 09/13/24 07:59 Temperature 97.5 F 98.2 F Pulse Rate 77 79 Blood Pressure 119/60 112/67 Pulse Oximetry 97 94 Oxygen Delivery Method Room Air Room Air Labs 09/13/24 10:10 Labs: Laboratory Results - last 48 hr 09/13/24 10:10 Hold Purple Top SEE NOTE Sodium 138 Potassium 3.6 Chloride 97 Carbon Dioxide 29 Anion Gap 16 BUN 41 H Creatinine 7.27 H* Estim Creat Clear Calc TNP Estimated GFR 7 Random Glucose 180 H Calcium 9.8 Medications Medications Current Medications Acetaminophen (Acetaminophen 325 Mg Tablet) 650 mg PO Q6H PRN PRN Reason: Headache/Pain, Scale 1-10 Al Hydroxide/Mg Hydroxide (Magnesium Hydrox/Alum Hydrox 30 Ml Oral.Susp) 30 ml PO Q6H PRN PRN Reason: Heartburn/Nausea Apixaban (Apixaban 2.5 Mg Tablet) 2.5 mg PO BID [facility] Last Admin: 09/13/24 08:55 Dose: Not Given Aripiprazole (Aripiprazole 20 Mg Tablet) 20 mg PO DAILY [facility] Last Admin: 09/13/24 08:55 Dose: 20 mg Aripiprazole (Aripiprazole 5 Mg Tablet) 5 mg PO DAILY [facility] Last Admin: 09/13/24 08:54 Dose: 5 mg Benztropine Mesylate (Benztropine Mesylate 1 Mg Tablet) 1 mg PO BEDTIME PRN PRN Reason: EPS Benztropine Mesylate (Benztropine Mesylate 1 Mg Tablet) 2 mg PO DAILY [facility] Last Admin: 09/13/24 08:56 Dose: Not Given Divalproex Sodium (Divalproex Sodium Er 500 Mg Tab.Er.24h) 500 mg PO BEDTIME [facility] Last Admin: 09/12/24 22:00 Dose: 500 mg Haloperidol Lactate (Haloperidol Lactate 5 Mg/Ml Vial) 5 mg IM TID PRN PRN Reason: if refuses Thiothexine Magnesium Hydroxide (Milk Of Magnesia 30 Ml Oral.Susp) 30 ml PO DAILY PRN PRN Reason: Constipation Metoprolol Tartrate (Metoprolol Tartrate 25 Mg Tablet) 25 mg PO DAILY [facility]; Protocol Last Admin: 09/13/24 08:56 Dose: Not Given Multivitamins/Vitamin C (Multivitamin Tablet) 1 tab PO DAILY [facility] Last Admin: 09/13/24 08:56 Dose: Not Given Nicotine (Nicotine 21 Mg Patch.Td24) 21 mg TRANSDERMA DAILY PRN PRN Reason: smoking cessation Nicotine Polacrilex (Nicotine Polacrilex 2 Mg Gum) 4 mg BUCCAL Q2H PRN PRN Reason: Nicotine Cravings Pt Owned Med ( (Thiothixene 5mg Tab)) 1 each PO BID@1600,2100 [facility] Last Admin: 09/13/24 17:00 Dose: 1 each Olanzapine (Olanzapine 10 Mg Vial) 10 mg IM DAILY PRN PRN Reason: if refuses PO Abilify Olanzapine (Olanzapine 10 Mg Vial) 5 mg IM BID PRN PRN Reason: give if refuses Depakote Last Admin: 09/11/24 22:29 Dose: 5 mg Torsemide (Torsemide 20 Mg Tablet) 100 mg PO TuThSa [facility]; Protocol Last Admin: 09/12/24 07:01 Dose: Not Given Trazodone HCl (Trazodone Hcl 50 Mg Tablet) 50 mg PO BEDTIME MRX1 PRN PRN Reason: Insomnia Allergies Allergies Allergy/AdvReac Type Severity Reaction Status Date / Time No Known Allergies Allergy Verified 07/24/23 11:18 Assessment & Plan Assessment & Plan (1) ESRD needing dialysis: Status: Acute Code(s): N18.6 - End stage renal disease; Z99.2 - Dependence on renal dialysis Plan HPI: Patient is a 69 yo male with hx of bipolar/psychosis, catatonia, ESRD on Dialysis MWF, AFib on Eliquis, hypertension, anemia related to chronic kidney disease, aortic stenosis status post TAVR, was admitted from [facility] ED after his reported some manic behaviors as well as psychosis and refusal of medications and treatments. Patient refusing medication, labs and dialysis. Says he just wants to take a break from dialysis. He also says he does not want to and wants to live and seemed surprised to hear that refusing dialysis could end his life; however he continued to refuse, only relenting when it was explained to him that court affirmed healthcare proxy has paid a decision that he needs to get dialysis. Patient making some paranoid statements about the police, needing to be taking in or booked by the police... came to the unit and reports that he has not been taking his medications for at least a month and has been making paranoid statements, thinking someone stole a gun from his safe although he does not have a gun at all. HCP affirmed on 09/08/[address] [place] [address] Nuclear Powerplant Supervisor spoke with patient's and HCP Sujata... She says patient has been confused and disorganized for quite some time, not taking his medications. She agrees that he needs dialysis, to continue his medications, psychiatric and medical, and lab work and agrees that if need be patient is to be restrained in order to treat him including dialysis, medication and labs. Formulation/clinical reasoning: Patient is confused with paranoid delusions; does not have capacity to make medical decisions and healthcare proxy remains affirmed and necessary. Patient disorganized saying he wants to live but does not want dialysis and can not accept that without dialysis he will . Discussed case with , Dr. Pena who concur that when patient is on psychiatric medications and organized, he continues to want dialysis Hospital course: 09/09 patient grudgingly agreed to dialysis, understanding that it is to be enforced otherwise. Patient remains confused and with paranoid ideations; calling 911 multiple times, asking for there to be a check about guns...? Says he does not need medications...? He does not need dialysis.? Nuclear Powerplant Supervisor again thoroughly reviewed that dialysis is life saving for him; patient continues to purport that his kidneys function fine and he does not need dialysis; he does not want to at all but does not believe that he will without dialysis 09/10 Patient remains paranoid and delusional. Does not understand medical needs at all. Patient asked why he is on Eliquis; commercial real estate underwriter explained history of AFib however patient says but I feel fine... And can not accept his need for any of his medications or that he has any medical illness, continuing to say but I feel fine... Again says he does not need dialysis. Asked also why he is being offered Depakote and Abilify and again denies that he has any mental illness and does not need these medications. Patient very much wants to talk to Dr. Pena -Nuclear Powerplant Supervisor discussed case with Dr. Pena who concurs that when patient is on psychiatric medications and stable he does not fact want to continue with dialysis and enjoys spending time with his family 09/11 Difficult day. Patient refused dialysis and despite numerous attempts to explain need for dialysis, court appointed healthcare proxy decision-making.... Patient was unable to understand, remains delusional and disorganized and does not understand his medical illnesses, continued to refuse medications and dialysis. Patient required staff and security to escort patient into wheelchair; he was escorted down to the dialysis without issue and was sitting in the dialysis chair but continued to refuse dialysis thinking he does not need it. His regional tanker truck driver Dr. Pena came to visit patient to also provide support and remind patient that he has been getting dialysis for years and when he is doing well, on his psychiatric medication, he affirms dialysis; patient remained refusal. Patient it 1 point grabbed the dialysis to being from the machine, was difficult to redirect and eventually became combative, assaulting staff and needed physical, chemical and four-point restraint for his safety, staff safety and for dialysis. After dialysis, patient a little more clear and accepted some medication without problem. -regarding AFib and patient's refusal of Eliquis, commercial real estate underwriter discussed with Dr. Edge who explains risk is overall low for blood clot but that Lovenox would be acceptable if patient were not on dialysis (since medication can accumulate); patient could take aspirin but he refuses this as well. 09/12 calm today; agrees to dialysis tomorrow Plan: Healthcare proxy signed CV healthcare proxy court affirmed who authorizes patient to be restrained physically and/or with medication as needed to treat him for dialysis, medications and labs; authorizes IM medication substitutes if patient refuses p.o. medications Q 15 minute checks Continue Abilify 25 mg daily: Court appointed HCP approves to give Zyprexa IM if refuses p.o. Abilify Continue Depakote ER 500 mg q.h.s. and titrate back to home dose: Court appointed HCP approves to give Zyprexa IM if refuses p.o. depakote 1. ESRD: Dialyzes MWF at [facility] via LUE AVF 2. 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 Mineral Bone Disease Ca 9.6 (09/04) Phos 9.0 (08/21) PTH 484 (08/07) Recommendations: - F/u Phos - Continue HD on MWF schedule Patient educated on: diagnosis, medication risk/benefits and medical condition Informed Consent: does not understand Reason for continued inpatient stay Substantial Risk for: inability to function Time Spent With Patient Time: Total time managing care of this patient today ____ minutes.
--- NOTE | 2024-09-13 19:37 | P.PNPSI_ITS ---
Subjective Subjective Date of Service: 09/13/24 Reason For Visit: Unspecified Bipolar D/O Depression Anxiety Interim History: Met with patient; discussed with team Patient went to dialysis today willingly, without problem; on return however he says he wished he did not go. Continues to deny his need for dialysis or for medications despite administrative underwriter her explaining them again. Otherwise in good behavioral and impulse control Mental Status Exam Mental Status Exam Narrative: Pt is alert and oriented; behavior is pleasant on approach but resistant to care; calm; patient is not in distress; dressed in casual attire with poor hygiene; mood is described as calm and affect congruent; eye contact avoidant; Speech is with some latency; otherwise normal rate, volume and prosody and not pressured; no psychomotor agitation/retardation present; thought process is goal directed but can be circular; Thought content is on not wanting dialysis; with paranoid delusions; denies any SI/HI. Denies AVH though internally preoccupied. Patients insight and judgment impaired. Diagnostics Vital Signs (24Hr): Vital Signs - 24 hr 09/12/24 20:00 09/13/24 07:59 Temperature 97.5 F 98.2 F Pulse Rate 77 79 Blood Pressure 119/60 112/67 Pulse Oximetry 97 94 Oxygen Delivery Method Room Air Room Air Labs 09/13/24 10:10 Labs: Laboratory Results - last 48 hr 09/13/24 10:10 Hold Purple Top SEE NOTE Sodium 138 Potassium 3.6 Chloride 97 Carbon Dioxide 29 Anion Gap 16 BUN 41 H Creatinine 7.27 H* Estim Creat Clear Calc TNP Estimated GFR 7 Random Glucose 180 H Calcium 9.8 Medications Medications Current Medications Acetaminophen (Acetaminophen 325 Mg Tablet) 650 mg PO Q6H PRN PRN Reason: Headache/Pain, Scale 1-10 Al Hydroxide/Mg Hydroxide (Magnesium Hydrox/Alum Hydrox 30 Ml Oral.Susp) 30 ml PO Q6H PRN PRN Reason: Heartburn/Nausea Apixaban (Apixaban 2.5 Mg Tablet) 2.5 mg PO BID ON LICENSE OF [facility] Last Admin: 09/13/24 08:55 Dose: Not Given Aripiprazole (Aripiprazole 20 Mg Tablet) 20 mg PO DAILY ON LICENSE OF [facility] Last Admin: 09/13/24 08:55 Dose: 20 mg Aripiprazole (Aripiprazole 5 Mg Tablet) 5 mg PO DAILY ON [facility] OF [facility] Last Admin: 09/13/24 08:54 Dose: 5 mg Benztropine Mesylate (Benztropine Mesylate 1 Mg Tablet) 1 mg PO BEDTIME PRN PRN Reason: EPS Benztropine Mesylate (Benztropine Mesylate 1 Mg Tablet) 2 mg PO DAILY ON LICENSE OF [facility] Last Admin: 09/13/24 08:56 Dose: Not Given Divalproex Sodium (Divalproex Sodium Er 500 Mg Tab.Er.24h) 500 mg PO BEDTIME ON LICENSE OF [facility] Last Admin: 09/12/24 22:00 Dose: 500 mg Haloperidol Lactate (Haloperidol Lactate 5 Mg/Ml Vial) 5 mg IM TID PRN PRN Reason: if refuses Thiothexine Magnesium Hydroxide (Milk Of Magnesia 30 Ml Oral.Susp) 30 ml PO DAILY PRN PRN Reason: Constipation Metoprolol Tartrate (Metoprolol Tartrate 25 Mg Tablet) 25 mg PO DAILY ON LICENSE OF [facility]; Protocol Last Admin: 09/13/24 08:56 Dose: Not Given Multivitamins/Vitamin C (Multivitamin Tablet) 1 tab PO DAILY ON LICENSE OF [facility] Last Admin: 09/13/24 08:56 Dose: Not Given Nicotine (Nicotine 21 Mg Patch.Td24) 21 mg TRANSDERMA DAILY PRN PRN Reason: smoking cessation Nicotine Polacrilex (Nicotine Polacrilex 2 Mg Gum) 4 mg BUCCAL Q2H PRN PRN Reason: Nicotine Cravings Pt Owned Med ( (Thiothixene 5mg Tab)) 1 each PO BID@1600,2100 ON LICENSE OF [facility] Last Admin: 09/13/24 17:00 Dose: 1 each Olanzapine (Olanzapine 10 Mg Vial) 10 mg IM DAILY PRN PRN Reason: if refuses PO Abilify Olanzapine (Olanzapine 10 Mg Vial) 5 mg IM BID PRN PRN Reason: give if refuses Depakote Last Admin: 09/11/24 22:29 Dose: 5 mg Torsemide (Torsemide 20 Mg Tablet) 100 mg PO TuThSa ON LICENSE OF [facility]; Protocol Last Admin: 09/12/24 07:01 Dose: Not Given Trazodone HCl (Trazodone Hcl 50 Mg Tablet) 50 mg PO BEDTIME MRX1 PRN PRN Reason: Insomnia Allergies Allergies Allergy/AdvReac Type Severity Reaction Status Date / Time No Known Allergies Allergy Verified 07/24/23 11:18 Assessment & Plan Assessment & Plan (1) ESRD needing dialysis: Status: Acute Code(s): N18.6 - End stage renal disease; Z99.2 - Dependence on renal dialysis Plan HPI: Patient is a 69 yo male with hx of bipolar/psychosis, catatonia, ESRD on Dialysis MWF, AFib on Eliquis, hypertension, anemia related to chronic kidney disease, aortic stenosis status post TAVR, was admitted from [facility] ED after his reported some manic behaviors as well as psychosis and refusal of medications and treatments. Patient refusing medication, labs and dialysis. Says he just wants to take a break from dialysis. He also says he does not want to and wants to live and seemed surprised to hear that refusing dialysis could end his life; however he continued to refuse, only relenting when it was explained to him that court affirmed healthcare proxy has paid a decision that he needs to get dialysis. Patient making some paranoid statements about the police, needing to be taking in or booked by the police... came to the unit and reports that he has not been taking his medications for at least a month and has been making paranoid statements, thinking someone stole a gun from his safe although he does not have a gun at all. HCP affirmed on 09/08/[address] [place] [address] Cat Dog Or Other Pet Groomer spoke with patient's and HCP Sujata... She says patient has been confused and disorganized for quite some time, not taking his medications. She agrees that he needs dialysis, to continue his medications, psychiatric and medical, and lab work and agrees that if need be patient is to be restrained in order to treat him including dialysis, medication and labs. Formulation/clinical reasoning: Patient is confused with paranoid delusions; does not have capacity to make medical decisions and healthcare proxy remains affirmed and necessary. Patient disorganized saying he wants to live but does not want dialysis and can not accept that without dialysis he will . Discussed case with , Dr. Pena who concur that when patient is on psychiatric medications and organized, he continues to want dialysis Hospital course: 09/09 patient grudgingly agreed to dialysis, understanding that it is to be enforced otherwise. Patient remains confused and with paranoid ideations; calling 911 multiple times, asking for there to be a check about guns...? Says he does not need medications...? He does not need dialysis.? Cat Dog Or Other Pet Groomer again thoroughly reviewed that dialysis is life saving for him; patient continues to purport that his kidneys function fine and he does not need dialysis; he does not want to at all but does not believe that he will without dialysis 09/10 Patient remains paranoid and delusional. Does not understand medical needs at all. Patient asked why he is on Eliquis; administrative underwriter explained history of AFib however patient says but I feel fine... And can not accept his need for any of his medications or that he has any medical illness, continuing to say but I feel fine... Again says he does not need dialysis. Asked also why he is being offered Depakote and Abilify and again denies that he has any mental illness and does not need these medications. Patient very much wants to talk to Dr. Pena -Cat Dog Or Other Pet Groomer discussed case with Dr. Pena who concurs that when patient is on psychiatric medications and stable he does not fact want to continue with dialysis and enjoys spending time with his family 09/11 Difficult day. Patient refused dialysis and despite numerous attempts to explain need for dialysis, court appointed healthcare proxy decision-making.... Patient was unable to understand, remains delusional and disorganized and does not understand his medical illnesses, continued to refuse medications and dialysis. Patient required staff and security to escort patient into wheelchair; he was escorted down to the dialysis without issue and was sitting in the dialysis chair but continued to refuse dialysis thinking he does not need it. His shirring tender Dr. Pena came to visit patient to also provide support and remind patient that he has been getting dialysis for years and when he is doing well, on his psychiatric medication, he affirms dialysis; patient remained refusal. Patient it 1 point grabbed the dialysis to being from the machine, was difficult to redirect and eventually became combative, assaulting staff and needed physical, chemical and four-point restraint for his safety, staff safety and for dialysis. After dialysis, patient a little more clear and accepted some medication without problem. -regarding AFib and patient's refusal of Eliquis, administrative underwriter discussed with Dr. Edge who explains risk is overall low for blood clot but that Lovenox would be acceptable if patient were not on dialysis (since medication can accumulate); patient could take aspirin but he refuses this as well. 09/12 calm today; agrees to dialysis tomorrow 09/13 dialysis willingly today though in height said he wished he did not; while in dialysis he did challenge continuing with it and did get p.r.n. Haldol and Ativan Plan: Healthcare proxy signed CV healthcare proxy court affirmed who authorizes patient to be restrained physically and/or with medication as needed to treat him for dialysis, medications and labs; authorizes IM medication substitutes if patient refuses p.o. medications Q 15 minute checks Continue Abilify 25 mg daily: Court appointed HCP approves to give Zyprexa IM if refuses p.o. Abilify Continue Depakote ER 500 mg q.h.s. and titrate back to home dose: Court appointed HCP approves to give Zyprexa IM if refuses p.o. depakote 1. ESRD: Dialyzes MWF at [facility] via LUE AVF 2. 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 Mineral Bone Disease Ca 9.6 (09/04) Phos 9.0 (08/21) PTH 484 (08/07) Recommendations: - F/u Phos - Continue HD on MWF schedule Patient educated on: diagnosis, medication risk/benefits and medical condition Informed Consent: does not understand Reason for continued inpatient stay Substantial Risk for: inability to function Time Spent With Patient Time: Total time managing care of this patient today ____ minutes.
[2024-09-13] MEDS: OLANZapine 10 MG VIAL 5 MG IM (22:24)
[2024-09-14 08:33] VITALS: BP 124/68; PULSE 89; TEMP 36.6; O2SAT 96
--- NOTE | 2024-09-14 10:19 | HO.PSYCHPN ---
Subjective Subjective Date of Service: 09/14/24 Reason For Visit: Unspecified Bipolar D/O Depression Anxiety Interim History: met with pt; discussed with team remains with no insight, again saying he does not need psychiatric meds, other meds, dialysis...does not respond to education. Continues to refuse tx Mental Status Exam Mental Status Exam Narrative: Pt is alert and oriented; behavior is pleasant on approach but resistant to care; calm; patient is not in distress; dressed in casual attire with marginal hygiene; mood is described as calm and affect congruent; eye contact avoidant; Speech is with some latency; otherwise normal rate, volume and prosody and not pressured; no psychomotor agitation/retardation present; thought process is goal directed but can be circular; Thought content is on not wanting dialysis; with paranoid delusions; denies any SI/HI. Denies AVH though internally preoccupied. Patients insight and judgment impaired. Diagnostics Vital Signs (24Hr): Vital Signs - 24 hr 09/14/24 08:33 Temperature 97.8 F Pulse Rate 89 Blood Pressure 124/68 Pulse Oximetry 96 Oxygen Delivery Method Room Air Labs 09/13/24 10:10 Labs: Laboratory Results - last 48 hr 09/13/24 10:10 Hold Purple Top SEE NOTE Sodium 138 Potassium 3.6 Chloride 97 Carbon Dioxide 29 Anion Gap 16 BUN 41 H Creatinine 7.27 H* Estim Creat Clear Calc TNP Estimated GFR 7 Random Glucose 180 H Calcium 9.8 Medications Medications Current Medications Acetaminophen (Acetaminophen 325 Mg Tablet) 650 mg PO Q6H PRN PRN Reason: Headache/Pain, Scale 1-10 Al Hydroxide/Mg Hydroxide (Magnesium Hydrox/Alum Hydrox 30 Ml Oral.Susp) 30 ml PO Q6H PRN PRN Reason: Heartburn/Nausea Apixaban (Apixaban 2.5 Mg Tablet) 2.5 mg PO BID [facility] Last Admin: 09/14/24 09:52 Dose: 2.5 mg Aripiprazole (Aripiprazole 20 Mg Tablet) 20 mg PO DAILY [facility] Last Admin: 09/14/24 09:52 Dose: 20 mg Aripiprazole (Aripiprazole 5 Mg Tablet) 5 mg PO DAILY [facility] Last Admin: 09/14/24 09:51 Dose: 5 mg Benztropine Mesylate (Benztropine Mesylate 1 Mg Tablet) 1 mg PO BEDTIME PRN PRN Reason: EPS Benztropine Mesylate (Benztropine Mesylate 1 Mg Tablet) 2 mg PO DAILY [facility] Last Admin: 09/14/24 09:52 Dose: 2 mg Divalproex Sodium (Divalproex Sodium Er 500 Mg Tab.Er.24h) 500 mg PO BEDTIME [facility] Last Admin: 09/13/24 22:27 Dose: Not Given Haloperidol Lactate (Haloperidol Lactate 5 Mg/Ml Vial) 5 mg IM TID PRN PRN Reason: if refuses Thiothexine Magnesium Hydroxide (Milk Of Magnesia 30 Ml Oral.Susp) 30 ml PO DAILY PRN PRN Reason: Constipation Metoprolol Tartrate (Metoprolol Tartrate 25 Mg Tablet) 25 mg PO DAILY [facility]; Protocol Last Admin: 09/14/24 09:23 Dose: 25 mg Multivitamins/Vitamin C (Multivitamin Tablet) 1 tab PO DAILY [facility] Last Admin: 09/14/24 09:32 Dose: 1 tab Nicotine (Nicotine 21 Mg Patch.Td24) 21 mg TRANSDERMA DAILY PRN PRN Reason: smoking cessation Nicotine Polacrilex (Nicotine Polacrilex 2 Mg Gum) 4 mg BUCCAL Q2H PRN PRN Reason: Nicotine Cravings Pt Owned Med ( (Thiothixene 5mg Tab)) 1 each PO BID@1600,2100 [facility] Last Admin: 09/13/24 22:27 Dose: 1 each Olanzapine (Olanzapine 10 Mg Vial) 10 mg IM DAILY PRN PRN Reason: if refuses PO Abilify Olanzapine (Olanzapine 10 Mg Vial) 5 mg IM BID PRN PRN Reason: give if refuses Depakote Last Admin: 09/13/24 22:24 Dose: 5 mg Torsemide (Torsemide 20 Mg Tablet) 100 mg PO TuThSa [facility]; Protocol Last Admin: 09/14/24 07:13 Dose: Not Given Trazodone HCl (Trazodone Hcl 50 Mg Tablet) 50 mg PO BEDTIME MRX1 PRN PRN Reason: Insomnia Allergies Allergies Allergy/AdvReac Type Severity Reaction Status Date / Time No Known Allergies Allergy Verified 07/24/23 11:18 Assessment & Plan Assessment & Plan (1) Bipolar disorder: Status: Acute Code(s): F31.9 - Bipolar disorder, unspecified (2) ESRD needing dialysis: Status: Acute Code(s): N18.6 - End stage renal disease; Z99.2 - Dependence on renal dialysis Plan HPI: Patient is a 69 yo male with hx of bipolar/psychosis, catatonia, ESRD on Dialysis MWF, AFib on Eliquis, hypertension, anemia related to chronic kidney disease, aortic stenosis status post TAVR, was admitted from [facility] ED after his reported some manic behaviors as well as psychosis and refusal of medications and treatments. Patient refusing medication, labs and dialysis. Says he just wants to take a break from dialysis. He also says he does not want to and wants to live and seemed surprised to hear that refusing dialysis could end his life; however he continued to refuse, only relenting when it was explained to him that court affirmed healthcare proxy has paid a decision that he needs to get dialysis. Patient making some paranoid statements about the police, needing to be taking in or booked by the police... came to the unit and reports that he has not been taking his medications for at least a month and has been making paranoid statements, thinking someone stole a gun from his safe although he does not have a gun at all. HCP affirmed on 09/08[address] [place] [address] Tape Making Machine Operator spoke with patient's and HCP Sujata... She says patient has been confused and disorganized for quite some time, not taking his medications. She agrees that he needs dialysis, to continue his medications, psychiatric and medical, and lab work and agrees that if need be patient is to be restrained in order to treat him including dialysis, medication and labs. Formulation/clinical reasoning: Patient is confused with paranoid delusions; does not have capacity to make medical decisions and healthcare proxy remains affirmed and necessary. Patient disorganized saying he wants to live but does not want dialysis and can not accept that without dialysis he will . Discussed case with , Dr. Pena who concur that when patient is on psychiatric medications and organized, he continues to want dialysis Hospital course: 09/09 patient grudgingly agreed to dialysis, understanding that it is to be enforced otherwise. Patient remains confused and with paranoid ideations; calling 911 multiple times, asking for there to be a check about guns...? Says he does not need medications...? He does not need dialysis.? Tape Making Machine Operator again thoroughly reviewed that dialysis is life saving for him; patient continues to purport that his kidneys function fine and he does not need dialysis; he does not want to at all but does not believe that he will without dialysis 09/10 Patient remains paranoid and delusional. Does not understand medical needs at all. Patient asked why he is on Eliquis; fiction writer explained history of AFib however patient says but I feel fine... And can not accept his need for any of his medications or that he has any medical illness, continuing to say but I feel fine... Again says he does not need dialysis. Asked also why he is being offered Depakote and Abilify and again denies that he has any mental illness and does not need these medications. Patient very much wants to talk to Dr. Pena -Tape Making Machine Operator discussed case with Dr. Pena who concurs that when patient is on psychiatric medications and stable he does not fact want to continue with dialysis and enjoys spending time with his family 09/11 Difficult day. Patient refused dialysis and despite numerous attempts to explain need for dialysis, court appointed healthcare proxy decision-making.... Patient was unable to understand, remains delusional and disorganized and does not understand his medical illnesses, continued to refuse medications and dialysis. Patient required staff and security to escort patient into wheelchair; he was escorted down to the dialysis without issue and was sitting in the dialysis chair but continued to refuse dialysis thinking he does not need it. His web press operator apprentice Dr. Pena came to visit patient to also provide support and remind patient that he has been getting dialysis for years and when he is doing well, on his psychiatric medication, he affirms dialysis; patient remained refusal. Patient it 1 point grabbed the dialysis to being from the machine, was difficult to redirect and eventually became combative, assaulting staff and needed physical, chemical and four-point restraint for his safety, staff safety and for dialysis. After dialysis, patient a little more clear and accepted some medication without problem. -regarding AFib and patient's refusal of Eliquis, fiction writer discussed with Dr. Edge who explains risk is overall low for blood clot but that Lovenox would be acceptable if patient were not on dialysis (since medication can accumulate); patient could take aspirin but he refuses this as well. 09/12 calm today; agrees to dialysis tomorrow 09/13 dialysis willingly today though in height said he wished he did not; while in dialysis he did challenge continuing with it and did get p.r.n. Haldol and Ativan Plan: Healthcare proxy signed CV healthcare proxy court affirmed who authorizes patient to be restrained physically and/or with medication as needed to treat him for dialysis, medications and labs; authorizes IM medication substitutes if patient refuses p.o. medications Q 15 minute checks Continue Abilify 25 mg daily: Court appointed HCP approves to give Zyprexa IM if refuses p.o. Abilify Continue Depakote ER 500 mg q.h.s. and titrate back to home dose: Court appointed HCP approves to give Zyprexa IM if refuses p.o. depakote 1. ESRD: Dialyzes MWF at [facility] via LUE AVF 2. 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 Mineral Bone Disease Ca 9.6 (09/04) Phos 9.0 (08/21) PTH 484 (08/07) Recommendations: - F/u Phos - Continue HD on MWF schedule Patient educated on: diagnosis, medication risk/benefits and medical condition Informed Consent: does not understand Reason for continued inpatient stay Substantial Risk for: inability to function Time Spent With Patient Time: Total time managing care of this patient today ____ minutes.
[2024-09-14] MEDS: OLANZapine 10 MG VIAL IM ×2 (10:47→21:44)
[2024-09-14 19:45] VITALS: BP 156/75; PULSE 74; RESP 18; TEMP 36.5; O2SAT 96
[2024-09-14] MEDS: [UNRECOGNIZED DRUG - OTHER] 1 EACH PO (21:40)
--- NOTE | 2024-09-15 08:02 | P.PNPSI_ITS ---
Subjective Subjective Date of Service: 09/15/24 Reason For Visit: Unspecified Bipolar D/O Depression Anxiety Interim History: Met with patient; discussed with team Patient remains struggling with insight. Says he does not need psychiatric medications and asks again why he is prescribed Abilify and Depakote but does not accept reasoning. Says he wants to see if he will be okay without dialysis does not accept explanations to the contrary. [employer] again appeal to him that conversation about medications and dialysis and whether not to continue, are reasonable conversations to have but that patient needs to be clear minded when doing so, thus the need for the psychiatric medications... Patient disagrees. This morning took Abilify but then spit it out. Continues to refuse Depakote Mental Status Exam Mental Status Exam Narrative: Pt is alert and oriented; behavior is pleasant on approach but resistant to care; calm; patient is not in distress; dressed in casual attire with marginal hygiene; mood is described as calm and affect congruent; eye contact avoidant; Speech is with some latency; otherwise normal rate, volume and prosody and not pressured; no psychomotor agitation/retardation present; thought process is goal directed but can be circular; Thought content is on not wanting dialysis; with paranoid delusions; denies any SI/HI. Denies AVH though internally preoccupied. Patients insight and judgment impaired. Diagnostics Vital Signs (24Hr): Vital Signs - 24 hr 09/14/24 08:33 09/14/24 19:45 Temperature 97.8 F 97.7 F Pulse Rate 89 74 Respiratory Rate 18 Blood Pressure 124/68 156/75 H Pulse Oximetry 96 96 Oxygen Delivery Method Room Air Room Air Labs 09/13/24 10:10 Labs: Laboratory Results - last 48 hr 09/13/24 10:10 Hold Purple Top SEE NOTE Sodium 138 Potassium 3.6 Chloride 97 Carbon Dioxide 29 Anion Gap 16 BUN 41 H Creatinine 7.27 H* Estim Creat Clear Calc TNP Estimated GFR 7 Random Glucose 180 H Calcium 9.8 Medications Medications Current Medications Acetaminophen (Acetaminophen 325 Mg Tablet) 650 mg PO Q6H PRN PRN Reason: Headache/Pain, Scale 1-10 Al Hydroxide/Mg Hydroxide (Magnesium Hydrox/Alum Hydrox 30 Ml Oral.Susp) 30 ml PO Q6H PRN PRN Reason: Heartburn/Nausea Apixaban (Apixaban 2.5 Mg Tablet) 2.5 mg PO BID [facility] Last Admin: 09/14/24 21:41 Dose: Not Given Aripiprazole (Aripiprazole 20 Mg Tablet) 20 mg PO DAILY [facility] Last Admin: 09/14/24 11:07 Dose: Not Given Aripiprazole (Aripiprazole 5 Mg Tablet) 5 mg PO DAILY [facility] Last Admin: 09/14/24 11:07 Dose: Not Given Benztropine Mesylate (Benztropine Mesylate 1 Mg Tablet) 1 mg PO BEDTIME PRN PRN Reason: EPS Benztropine Mesylate (Benztropine Mesylate 1 Mg Tablet) 2 mg PO DAILY [facility] Last Admin: 09/14/24 10:52 Dose: Not Given Divalproex Sodium (Divalproex Sodium Er 500 Mg Tab.Er.24h) 500 mg PO BEDTIME [facility] Last Admin: 09/14/24 21:41 Dose: Not Given Haloperidol Lactate (Haloperidol Lactate 5 Mg/Ml Vial) 5 mg IM TID PRN PRN Reason: if refuses Thiothexine Magnesium Hydroxide (Milk Of Magnesia 30 Ml Oral.Susp) 30 ml PO DAILY PRN PRN Reason: Constipation Metoprolol Tartrate (Metoprolol Tartrate 25 Mg Tablet) 25 mg PO DAILY [facility]; Protocol Last Admin: 09/14/24 10:52 Dose: Not Given Multivitamins/Vitamin C (Multivitamin Tablet) 1 tab PO DAILY [facility] Last Admin: 09/14/24 10:52 Dose: Not Given Nicotine (Nicotine 21 Mg Patch.Td24) 21 mg TRANSDERMA DAILY PRN PRN Reason: smoking cessation Nicotine Polacrilex (Nicotine Polacrilex 2 Mg Gum) 4 mg BUCCAL Q2H PRN PRN Reason: Nicotine Cravings Pt Owned Med ( (Thiothixene 5mg Tab)) 1 each PO BID@1600,2100 [facility] Last Admin: 09/14/24 21:40 Dose: 1 each Olanzapine (Olanzapine 10 Mg Vial) 10 mg IM DAILY PRN PRN Reason: if refuses PO Abilify Last Admin: 09/14/24 21:44 Dose: 10 mg Olanzapine (Olanzapine 10 Mg Vial) 5 mg IM BID PRN PRN Reason: give if refuses Depakote Last Admin: 09/13/24 22:24 Dose: 5 mg Torsemide (Torsemide 20 Mg Tablet) 100 mg PO TuThSa [facility]; Protocol Last Admin: 09/14/24 07:13 Dose: Not Given Trazodone HCl (Trazodone Hcl 50 Mg Tablet) 50 mg PO BEDTIME MRX1 PRN PRN Reason: Insomnia Allergies Allergies Allergy/AdvReac Type Severity Reaction Status Date / Time No Known Allergies Allergy Verified 07/24/23 11:18 Assessment & Plan Assessment & Plan (1) Bipolar disorder: Status: Acute Code(s): F31.9 - Bipolar disorder, unspecified (2) ESRD needing dialysis: Status: Acute Code(s): N18.6 - End stage renal disease; Z99.2 - Dependence on renal dialysis Plan HPI: Patient is a 69 yo male with hx of bipolar/psychosis, catatonia, ESRD on Dialysis MWF, AFib on Eliquis, hypertension, anemia related to chronic kidney disease, aortic stenosis status post TAVR, was admitted from [facility] ED after his reported some manic behaviors as well as psychosis and refusal of medications and treatments. Patient refusing medication, labs and dialysis. Says he just wants to take a break from dialysis. He also says he does not want to and wants to live and seemed surprised to hear that refusing dialysis could end his life; however he continued to refuse, only relenting when it was explained to him that court affirmed healthcare proxy has paid a decision that he needs to get dialysis. Patient making some paranoid statements about the police, needing to be taking in or booked by the police... came to the unit and reports that he has not been taking his medications for at least a month and has been making paranoid statements, thinking someone stole a gun from his safe although he does not have a gun at all. HCP affirmed on 09/08/[address] [place] [address] [employer] spoke with patient's and HCP Sujata... She says patient has been confused and disorganized for quite some time, not taking his medications. She agrees that he needs dialysis, to continue his medications, psychiatric and medical, and lab work and agrees that if need be patient is to be restrained in order to treat him including dialysis, medication and labs. Formulation/clinical reasoning: Patient is confused with paranoid delusions; does not have capacity to make medical decisions and healthcare proxy remains affirmed and necessary. Patient disorganized saying he wants to live but does not want dialysis and can not accept that without dialysis he will . Discussed case with , Dr. Pena who concur that when patient is on psychiatric medications and organized, he continues to want dialysis Hospital course: 09/09 patient grudgingly agreed to dialysis, understanding that it is to be enforced otherwise. Patient remains confused and with paranoid ideations; calling 911 multiple times, asking for there to be a check about guns...? Says he does not need medications...? He does not need dialysis.? [employer] again thoroughly reviewed that dialysis is life saving for him; patient continues to purport that his kidneys function fine and he does not need dialysis; he does not want to at all but does not believe that he will without dialysis 09/10 Patient remains paranoid and delusional. Does not understand medical needs at all. Patient asked why he is on Eliquis; marketing underwriter explained history of AFib however patient says but I feel fine... And can not accept his need for any of his medications or that he has any medical illness, continuing to say but I feel fine... Again says he does not need dialysis. Asked also why he is being offered Depakote and Abilify and again denies that he has any mental illness and does not need these medications. Patient very much wants to talk to Dr. Pena -[employer] discussed case with Dr. Pena who concurs that when patient is on psychiatric medications and stable he does not fact want to continue with dialysis and enjoys spending time with his family 09/11 Difficult day. Patient refused dialysis and despite numerous attempts to explain need for dialysis, court appointed healthcare proxy decision-making.... Patient was unable to understand, remains delusional and disorganized and does not understand his medical illnesses, continued to refuse medications and dialysis. Patient required staff and security to escort patient into wheelchair; he was escorted down to the dialysis without issue and was sitting in the dialysis chair but continued to refuse dialysis thinking he does not need it. His model maker firearms Dr. Pena came to visit patient to also provide support and remind patient that he has been getting dialysis for years and when he is doing well, on his psychiatric medication, he affirms dialysis; patient remained refusal. Patient it 1 point grabbed the dialysis to being from the machine, was difficult to redirect and eventually became combative, assaulting staff and needed physical, chemical and four-point restraint for his safety, staff safety and for dialysis. After dialysis, patient a little more clear and accepted some medication without problem. -regarding AFib and patient's refusal of Eliquis, marketing underwriter discussed with Dr. Edge who explains risk is overall low for blood clot but that Lovenox would be acceptable if patient were not on dialysis (since medication can accumulate); patient could take aspirin but he refuses this as well. 09/12 calm today; agrees to dialysis tomorrow 09/13 dialysis willingly today though in height said he wished he did not; while in dialysis he did challenge continuing with it and did get p.r.n. Haldol and Ativan 09/15 Patient remains struggling with insight. Says he does not need psychiatric medications and asks again why he is prescribed Abilify and Depakote but does not accept reasoning. Says he wants to see if he will be okay without dialysis does not accept explanations to the contrary. [employer] again appeal to him that conversation about medications and dialysis and whether not to continue, are reasonable conversations to have but that patient needs to be clear minded when doing so, thus the need for the psychiatric medications... Patient disagrees. This morning took Abilify but then spit it out. Continues to refuse Depakote Patient requires IM medication Zyprexa as a substitute for his refusal for Abilify and Depakote; patient has bipolar disorder and has a history of becoming floridly manic without mood stabilization; Haldol as substitute for thiothixene however patient is more amenable to taking Plan: Healthcare proxy signed CV healthcare proxy court affirmed who authorizes patient to be restrained physically and/or with medication as needed to treat him for dialysis, medications and labs; authorizes IM medication substitutes if patient refuses p.o. medications Q 15 minute checks Continue Abilify 25 mg daily: Court appointed HCP approves to give Zyprexa IM if refuses p.o. Abilify Continue Depakote ER 500 mg q.h.s. and titrate back to home dose: Court appointed HCP approves to give Zyprexa IM if refuses p.o. depakote 1. ESRD: Dialyzes MWF at [facility] via LUE AVF 2. 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 Mineral Bone Disease Ca 9.6 (09/04) Phos 9.0 (08/21) PTH 484 (08/07) Recommendations: - F/u Phos - Continue HD on MWF schedule Patient educated on: diagnosis, medication risk/benefits and medical condition Informed Consent: does not understand Reason for continued inpatient stay Substantial Risk for: inability to function Time Spent With Patient Time: Total time managing care of this patient today ____ minutes.
[2024-09-15 09:01] VITALS: BP 133/62; PULSE 81; TEMP 36.3; O2SAT 97
[2024-09-15] MEDS: OLANZapine 10 MG VIAL IM (09:59)
[2024-09-15] MEDS: [UNRECOGNIZED DRUG - OTHER] 1 EACH PO ×2 (16:27→21:07)
[2024-09-15 20:00] VITALS: BP 160/73; PULSE 68; RESP 15; TEMP 36.6; O2SAT 98
[2024-09-16 07:55] VITALS: BP 133/70; PULSE 93; RESP 18; TEMP 36.5; O2SAT 93
--- NOTE | 2024-09-16 08:31 | PM.PNNEP ---
Subjective Subjective Date of Service: 09/16/24 Interval history: Met with patient; discussed with team Patient remains struggling with insight. Says he does not need psychiatric medications and asks again why he is prescribed Abilify and Depakote but does not accept reasoning. Says he wants to see if he will be okay without dialysis does not accept explanations to the contrary. Retail Field Representative again appeal to him that conversation about medications and dialysis and whether not to continue, are reasonable conversations to have but that patient needs to be clear minded when doing so, thus the need for the psychiatric medications... Patient disagrees. This morning took Abilify but then spit it out. Continues to refuse Depakote Physical Exam Vital Signs: Vital Signs: Last Vital Signs Temp 97.7 F 09/16/24 07:55 Pulse 93 09/16/24 07:55 Resp 18 09/16/24 07:55 BP 133/70 09/16/24 07:55 Pulse Ox 93 09/16/24 07:55 O2 Del Method Room Air 09/16/24 07:55 Objective Data Labs 09/13/24 10:10 Procedures Date of Service Date of Service: 09/16/24 Assessment & Plan Assessment and plan (1) ESRD needing dialysis: Status: Acute Plan ayush Holcomb is a 69 year old male with past medical history of ESRD on HD, bipolar disorder, Afib on Eliquis, s/p TAVR, hypertension, hyperlipidemia who presented to [facility] with erratic behavior over the past few weeks. Seen by Psych for decompensated bipolar illness in the inpt psych unit. Nephrology consulted for ESRD. 1. ESRD Dialyzes MWF at [facility] via LUE AVF 2. Hypertension / Volume Chronically pt is taking metoprolol 25 mg daily and torsemide 100 mg non-HD days 3. Nephrogenic Anemia 4. Mineral Bone Disease Recommendations: -cont HD 3x/wk using restraints and sedative meds as needed and rec by marco given he is not competent and his is Hpxy - routine dialysis labs ordered - has pedal edema - however refused an extra UF treatment between regular HD days Time Spent With Patient Time: Total time managing care of this patient today ____ minutes.
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
[2024-09-16] MEDS: OLANZapine 10 MG VIAL IM (16:04)
--- NOTE | 2024-09-16 16:05 | HO.PSYEVENT ---
Event Note Date of Service: 09/16/24 Psych Restraint Event Note: Patient has a healthcare proxy that is been affirmed by the court and has authorized patient to take Abilify and if refuses to have IM antipsychotic as a substitute. Patient calm but refused p.o. Abilify and thus required IM Zyprexa to prevent further decompensation. No Hold necessary. Time Spent With Patient Time: Total time managing care of this patient today ____ minutes.
--- NOTE | 2024-09-16 16:05 | HO.BHRESTREX ---
Behavioral Restraint Exam Behavioral Health Restraint Exam Type of Restraint: Medication (Patient needed Zyprexa IM, not to be restrained but to prevent further decompensation since refusing p.o. Abilify, ordered by his court affirmed healthcare proxy) If exam took place greater than one hour after restraint please explain:: Patient has a healthcare proxy that is been affirmed by the court and has authorized patient to take Abilify and if refuses to have IM antipsychotic as a substitute. Patient calm but refused p.o. Abilify and thus required IM Zyprexa to prevent further decompensation. Inspector Repairer a nurse both met with patient multiple times trying to educate on the need for Abilify medication. Behavioral Assessment / Plan: No further behavioral concerns, continue current plan.
--- NOTE | 2024-09-16 16:39 | PC.NURSE ---
At 1600 Pt was given Olanzapine 10 mg IM to right deltoid after he refused to take oral Abilify as indicated by invoked HCP/court order. Pt did not resist medication administration but willingly accepted injection with minimal hand holding for comfort. All paperwork completed and his has been notified.
[2024-09-16 19:47] VITALS: BP 116/57; PULSE 71; RESP 16; TEMP 36.4; O2SAT 97
--- NOTE | 2024-09-16 22:03 | PC.NURSE ---
Patient agreed to take Depakote 1000mg at 9:57 pm, at this time the nurse had prepared IM medication as needed due to patient initially refusing oral bedtime medications. IM medication wasted because it was already reconstituted, and wasted per medication protocol.
--- NOTE | 2024-09-16 22:53 | PC.NURSE ---
Patient refused Eliquis 2.5mg at bedtime, provider was notified.
[2024-09-17 08:33] VITALS: BP 143/74; PULSE 84; RESP 17; TEMP 36.4; O2SAT 94
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
--- NOTE | 2024-09-17 14:27 | P.PNNP_ITS ---
Subjective Subjective Date of Service: 09/17/24 Interval history: Met with patient- did not agree for an extra UF treatment today Physical Exam 2 Vital Signs: Vital Signs: Last Vital Signs Temp 97.5 F 09/17/24 08:33 Pulse 84 09/17/24 08:33 Resp 17 09/17/24 08:33 BP 143/74 H 09/17/24 08:33 Pulse Ox 94 09/17/24 08:33 O2 Del Method Room Air 09/17/24 08:33 cvs: s1s2 RS; cta ABd; soft Objective Data Labs 09/13/24 10:10 Procedures Date of Service Date of Service: 09/17/24 Assessment & Plan Assessment and plan (1) ESRD needing dialysis: Status: Acute Plan ayush Holcomb is a 69 year old male with past medical history of ESRD on HD, bipolar disorder, Afib on Eliquis, s/p TAVR, hypertension, hyperlipidemia who presented to [facility] [place] with erratic behavior over the past few weeks. Seen by Psych for decompensated bipolar illness in the inpt psych unit. Nephrology consulted for ESRD. 1. ESRD Dialyzes MWF at [facility] via LUE AVF 2. Hypertension / Volume Chronically pt is taking metoprolol 25 mg daily and torsemide 100 mg non-HD days 3. Nephrogenic Anemia 4. Mineral Bone Disease Recommendations: -cont HD 3x/wk using restraints and sedative meds as needed and rec by marco given he is not competent and his is Hpxy - routine dialysis labs ordered - has pedal edema - however refused an extra UF treatment between regular HD days Time Spent With Patient Time: Total time managing care of this patient today ____ minutes.
[2024-09-17] MEDS: [UNRECOGNIZED DRUG - OTHER] 1 EACH PO ×2 (17:08→22:36)
[2024-09-17 20:00] VITALS: BP 162/77; PULSE 67; TEMP 36.7; O2SAT 97
[2024-09-17] MEDS: OLANZapine 10 MG VIAL 5 MG IM (23:04)
[2024-09-18 08:00] VITALS: BP 195/95; PULSE 76; RESP 16; TEMP 36.6; O2SAT 98
--- NOTE | 2024-09-18 12:06 | P.PNPSI_ITS ---
Subjective Subjective Date of Service: 09/18/24 Reason For Visit: Unspecified Bipolar D/O Depression Anxiety Subjective Notes: Conditional Voluntary (HCP) Healthcare Proxy: Yes Guardianship: No Medical Problems Affecting Mental Status: Yes Interim History: Team reports today pt had no resistance in attending dialysis. BP's are running high. Pt refuses meds, has sx of paranoia. Met with pt who is quiet, dismissive, than asks that telegraphic typewriter mechanic remain with him, in silence during our meeting. He is not taking questions today, however asked that we remain together in silence. Medication Compliance: Intermittent Side effects from medications: No Attending Groups: No Review of Systems Acute medical concerns: Yes Review of Systems Review of Systems Dialysis pt Mental Status Exam Mental Status Exam Patient Appearance: Fatigued Patient Orientation: Person and Place Level of Consciousness: Alert Patient Behavior: Guarded and Suspicious Mood Description: Suspicious and Withdrawn Affect Description: Suspicious and Withdrawn Patient Cognition Impaired: No Ability to Follow Directions: Fair Speech Pattern: Impoverished and Spontaneous Speech Memory Description: Episodic Impaired Hallucinations: None (??) Delusions: Paranoid Ideation Perceptual Disturbances: Derealization Thought Process: Distracted and Rumination Thought Content: positive for Obsessional Thoughts and positive for Suicidal Ideation ( no ) Judgement: Poor Diagnostics Vital Signs (24Hr): Vital Signs - 24 hr 09/17/24 20:00 09/18/24 08:00 Temperature 98.0 F 97.8 F Pulse Rate 67 76 Respiratory Rate 16 Blood Pressure 162/77 H 195/95 H Pulse Oximetry 97 98 Oxygen Delivery Method Room Air Room Air Labs 09/13/24 10:10 Medications Medications Current Medications Acetaminophen (Acetaminophen 325 Mg Tablet) 650 mg PO Q6H PRN PRN Reason: Headache/Pain, Scale 1-10 Al Hydroxide/Mg Hydroxide (Magnesium Hydrox/Alum Hydrox 30 Ml Oral.Susp) 30 ml PO Q6H PRN PRN Reason: Heartburn/Nausea Apixaban (Apixaban 2.5 Mg Tablet) 2.5 mg PO BID [facility] Last Admin: 09/17/24 22:37 Dose: Not Given Aripiprazole (Aripiprazole 20 Mg Tablet) 20 mg PO DAILY [facility] Last Admin: 09/17/24 11:37 Dose: 20 mg Aripiprazole (Aripiprazole 5 Mg Tablet) 5 mg PO DAILY [facility] Last Admin: 09/17/24 11:38 Dose: 5 mg Benztropine Mesylate (Benztropine Mesylate 1 Mg Tablet) 1 mg PO BEDTIME PRN PRN Reason: EPS Benztropine Mesylate (Benztropine Mesylate 1 Mg Tablet) 2 mg PO DAILY [facility] Last Admin: 09/17/24 09:41 Dose: Not Given Bisacodyl (Bisacodyl 5 Mg Tablet.Dr) 5 mg PO BEDTIME PRN PRN Reason: Constipation Divalproex Sodium (Divalproex Sodium Er 500 Mg Tab.Er.24h) 1,000 mg PO BEDTIME [facility] Last Admin: 09/16/24 21:56 Dose: 1,000 mg Haloperidol Lactate (Haloperidol Lactate 5 Mg/Ml Vial) 5 mg IM TID PRN PRN Reason: if refuses Thiothexine Magnesium Hydroxide (Milk Of Magnesia 30 Ml Oral.Susp) 30 ml PO DAILY PRN PRN Reason: Constipation Metoprolol Tartrate (Metoprolol Tartrate 25 Mg Tablet) 25 mg PO DAILY [facility]; Protocol Last Admin: 09/18/24 08:23 Dose: Not Given Multivitamins/Vitamin C (Multivitamin Tablet) 1 tab PO DAILY [facility] Last Admin: 09/17/24 09:42 Dose: Not Given Nicotine (Nicotine 21 Mg Patch.Td24) 21 mg TRANSDERMA DAILY PRN PRN Reason: smoking cessation Nicotine Polacrilex (Nicotine Polacrilex 2 Mg Gum) 4 mg BUCCAL Q2H PRN PRN Reason: Nicotine Cravings Pt Owned Med ( (Thiothixene 5mg Tab)) 1 each PO BID@1600,2100 [facility] Last Admin: 09/17/24 22:36 Dose: 1 each Olanzapine (Olanzapine 10 Mg Vial) 10 mg IM DAILY PRN PRN Reason: if refuses PO Abilify 20mg Last Admin: 09/16/24 16:04 Dose: 10 mg Olanzapine (Olanzapine 10 Mg Vial) 5 mg IM DAILY PRN PRN Reason: give if refuses Depakote Last Admin: 09/17/24 23:04 Dose: 5 mg Torsemide (Torsemide 20 Mg Tablet) 100 mg PO TuThSa [facility]; Protocol Last Admin: 09/17/24 06:02 Dose: Not Given Trazodone HCl (Trazodone Hcl 50 Mg Tablet) 50 mg PO BEDTIME MRX1 PRN PRN Reason: Insomnia Allergies Allergies Allergy/AdvReac Type Severity Reaction Status Date / Time No Known Allergies Allergy Verified 07/24/23 11:18 Assessment & Plan Assessment & Plan (1) ESRD needing dialysis: Status: Acute Code(s): N18.6 - End stage renal disease; Z99.2 - Dependence on renal dialysis Plan HPI: Patient is a 69 yo male with hx of bipolar/psychosis, catatonia, ESRD on Dialysis MWF, AFib on Eliquis, hypertension, anemia related to chronic kidney disease, aortic stenosis status post TAVR, was admitted from [facility] ED after his reported some manic behaviors as well as psychosis and refusal of medications and treatments. Patient refusing medication, labs and dialysis. Says he just wants to take a break from dialysis. He also says he does not want to and wants to live and seemed surprised to hear that refusing dialysis could end his life; however he continued to refuse, only relenting when it was explained to him that court affirmed healthcare proxy has paid a decision that he needs to get dialysis. Patient making some paranoid statements about the police, needing to be taking in or booked by the police... came to the unit and reports that he has not been taking his medications for at least a month and has been making paranoid statements, thinking someone stole a gun from his safe although he does not have a gun at all. HCP affirmed on 09/08/[address] [place] [address] Exploitation Analyst spoke with patient's and HCP Sujata... She says patient has been confused and disorganized for quite some time, not taking his medications. She agrees that he needs dialysis, to continue his medications, psychiatric and medical, and lab work and agrees that if need be patient is to be restrained in order to treat him including dialysis, medication and labs. Formulation/clinical reasoning: Patient is confused with paranoid delusions; does not have capacity to make medical decisions and healthcare proxy remains affirmed and necessary. Patient disorganized saying he wants to live but does not want dialysis and can not accept that without dialysis he will . Discussed case with , Dr. Pena who concur that when patient is on psychiatric medications and organized, he continues to want dialysis Hospital course: 09/09 patient grudgingly agreed to dialysis, understanding that it is to be enforced otherwise. Patient remains confused and with paranoid ideations; calling 911 multiple times, asking for there to be a check about guns...? Says he does not need medications...? He does not need dialysis.? Exploitation Analyst again thoroughly reviewed that dialysis is life saving for him; patient continues to purport that his kidneys function fine and he does not need dialysis; he does not want to at all but does not believe that he will without dialysis 09/10 Patient remains paranoid and delusional. Does not understand medical needs at all. Patient asked why he is on Eliquis; telegraphic typewriter mechanic explained history of AFib however patient says but I feel fine... And can not accept his need for any of his medications or that he has any medical illness, continuing to say but I feel fine... Again says he does not need dialysis. Asked also why he is being offered Depakote and Abilify and again denies that he has any mental illness and does not need these medications. Patient very much wants to talk to Dr. Pena -Exploitation Analyst discussed case with Dr. Pena who concurs that when patient is on psychiatric medications and stable he does not fact want to continue with dialysis and enjoys spending time with his family 09/11 Difficult day. Patient refused dialysis and despite numerous attempts to explain need for dialysis, court appointed healthcare proxy decision-making.... Patient was unable to understand, remains delusional and disorganized and does not understand his medical illnesses, continued to refuse medications and dialysis. Patient required staff and security to escort patient into wheelchair; he was escorted down to the dialysis without issue and was sitting in the dialysis chair but continued to refuse dialysis thinking he does not need it. His underground mining section foreman Dr. Pena came to visit patient to also provide support and remind patient that he has been getting dialysis for years and when he is doing well, on his psychiatric medication, he affirms dialysis; patient remained refusal. Patient it 1 point grabbed the dialysis to being from the machine, was difficult to redirect and eventually became combative, assaulting staff and needed physical, chemical and four-point restraint for his safety, staff safety and for dialysis. After dialysis, patient a little more clear and accepted some medication without problem. -regarding AFib and patient's refusal of Eliquis, telegraphic typewriter mechanic discussed with Dr. Edge who explains risk is overall low for blood clot but that Lovenox would be acceptable if patient were not on dialysis (since medication can accumulate); patient could take aspirin but he refuses this as well. 09/12 calm today; agrees to dialysis tomorrow 09/13 dialysis willingly today though in height said he wished he did not; while in dialysis he did challenge continuing with it and did get p.r.n. Haldol and Ativan 09/15 Patient remains struggling with insight. Says he does not need psychiatric medications and asks again why he is prescribed Abilify and Depakote but does not accept reasoning. Says he wants to see if he will be okay without dialysis does not accept explanations to the contrary. Exploitation Analyst again appeal to him that conversation about medications and dialysis and whether not to continue, are reasonable conversations to have but that patient needs to be clear minded when doing so, thus the need for the psychiatric medications... Patient disagrees. This morning took Abilify but then spit it out. Continues to refuse Depakote Patient requires IM medication Zyprexa as a substitute for his refusal for Abilify and Depakote; patient has bipolar disorder and has a history of becoming floridly manic without mood stabilization; Haldol as substitute for thiothixene however patient is more amenable to taking 09/16 Today patient says willing to go to Dialysis and went without struggle, adherent to the procedure. Last night patient did take Depakote. Reportedly only slept 3 hours. Exploitation Analyst met with patient several times today as he continued to challenge his need for dialysis, his need for psychiatric medications and for other medications. Patient denies that he has a mental health illness or that he decompensates when going off psychiatric medications. In an effort to help explain patient's need for psychiatric medication, specifically the once he is on, Exploitation Analyst read to patient, excerpts from his past psychiatric admissions over the past 5 years which document his disorganization, paranoia and disorganized behaviors however patient said that none of that is true. Patient continues to say he wants to see if he will be okay without dialysis and is not open to hearing otherwise -patient normally on Abilify 500 mg t.i.d.; however immediate release Depakote may be removed more readily than extended release; switching to extended release Abilify and increasing to 1000 mg; also has patient struggles to adhere with medication regimen, it seems in patient's best interest that he only has to be faced with taking this medication once a day instead of 3 times a day Impressin:Exploitation Analyst believes that if patient were to be discharged today, because he is currently without insight and with disorganized thinking, he would not take any medications and would not go to dialysis placing him in imminent risk for . 09/18: Accepted dialysis today, continues to struggle with medications. Plan: Healthcare proxy signed CV healthcare proxy court affirmed who authorizes patient to be restrained physically and/or with medication as needed to treat him for dialysis, medications and labs; authorizes IM medication substitutes if patient refuses p.o. medications Q 15 minute checks Continue Abilify 25 mg daily: Court appointed HCP approves to give Zyprexa IM if refuses p.o. Abilify Continue Depakote ER 1000mg q.h.s. Court appointed HCP approves to give Zyprexa IM if refuses p.o. depakote 1. ESRD: Dialyzes MWF at [facility] via LUE AVF 2. 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 Mineral Bone Disease Ca 9.6 (6) Phos 9.0 (08/21) PTH 484 (08/07) Recommendations: - F/u Phos - Continue HD on MWF schedule Reason for continued inpatient stay Substantial Risk for: rapid decompensation Time Spent With Patient Time: Total time managing care of this patient today ____ minutes.
[2024-09-18 14:26] VITALS: RESP 16
[2024-09-18] MEDS: [UNRECOGNIZED DRUG - OTHER] 1 EACH PO (22:20)
--- NOTE | 2024-09-18 23:04 | P.PNNP_ITS ---
Subjective Subjective Date of Service: 09/18/24 Interval history: Met with patient; discussed with team Patient with same presentation; he politely approaches underwriter and wants to ask why he must have dialysis, take medications; patient does not accept explanations and says he is only taking medications because he has to. Visit from today. Physical Exam 2 Vital Signs: Vital Signs: Last Vital Signs Temp 97.8 F 09/18/24 08:00 Pulse 76 09/18/24 08:00 Resp 16 09/18/24 14:26 BP 195/95 H 09/18/24 08:00 Pulse Ox 98 09/18/24 08:00 O2 Del Method Room Air 09/18/24 08:00 cvs; s1s2 Rs; cta ABd; soft Objective Data Labs 09/13/24 10:10 Procedures Date of Service Date of Service: 09/18/24 Assessment & Plan Assessment and plan (1) ESRD (end stage renal disease): Status: Acute Plan ayush Holcomb is a 69 year old male with past medical history of ESRD on HD, bipolar disorder, Afib on Eliquis, s/p TAVR, hypertension, hyperlipidemia who [place] [facility] behavior over the past few weeks. Seen by Psych for decompensated bipolar illness in the inpt psych unit. Nephrology consulted for ESRD. 1. ESRD Dialyzes MWF at [facility] via LUE AVF 2. 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
[2024-09-19 08:00] VITALS: BP 128/60; PULSE 80; RESP 16; TEMP 36.4; O2SAT 94
--- NOTE | 2024-09-19 11:07 | P.PNPSI_ITS ---
Subjective Subjective Date of Service: 09/19/24 Reason For Visit: Unspecified Bipolar D/O Depression Anxiety Subjective Notes: Conditional Voluntary (HCP Activated) Healthcare Proxy: Yes Guardianship: No Medical Problems Affecting Mental Status: No Interim History: Team reports pt did not require any IM medicines yesterday. They report told him she will not visit unless he takes his medicines and complies with treatment. In the milieu today, observant, more talkative with this global technical writer. I am OK, I feel OK . Medication Compliance: Yes Side effects from medications: No Attending Groups: No Review of Systems Acute medical concerns: No Medical Review of Systems: unchanged Review of Systems Review of Systems Dialysis pt Mental Status Exam Mental Status Exam Patient Appearance: Appropriate Patient Orientation: Person and Place Level of Consciousness: Alert Patient Behavior: Guarded Mood Description: Withdrawn Affect Description: Withdrawn Patient Cognition Impaired: No Ability to Follow Directions: Fair Speech Pattern: Spontaneous Speech Memory Description: Episodic Impaired Hallucinations: None (??) Delusions: Paranoid Ideation Perceptual Disturbances: Derealization Thought Process: Distracted and Rumination Thought Content: positive for Obsessional Thoughts and positive for Suicidal Ideation ( no ) Judgement: Poor Diagnostics Vital Signs (24Hr): Vital Signs - 24 hr 09/18/24 14:26 09/19/24 08:00 Temperature 97.6 F Pulse Rate 80 Respiratory Rate 16 16 Blood Pressure 128/60 Pulse Oximetry 94 Oxygen Delivery Method Room Air Labs 09/13/24 10:10 Medications Medications Current Medications Acetaminophen (Acetaminophen 325 Mg Tablet) 650 mg PO Q6H PRN PRN Reason: Headache/Pain, Scale 1-10 Al Hydroxide/Mg Hydroxide (Magnesium Hydrox/Alum Hydrox 30 Ml Oral.Susp) 30 ml PO Q6H PRN PRN Reason: Heartburn/Nausea Apixaban (Apixaban 2.5 Mg Tablet) 2.5 mg PO BID REPLACED BY [facility] Last Admin: 09/19/24 10:10 Dose: Not Given Aripiprazole (Aripiprazole 20 Mg Tablet) 20 mg PO DAILY REPLACED BY [facility] Last Admin: 09/19/24 09:54 Dose: 20 mg Aripiprazole (Aripiprazole 5 Mg Tablet) 5 mg PO DAILY REPLACED BY [facility] Last Admin: 09/19/24 09:54 Dose: 5 mg Benztropine Mesylate (Benztropine Mesylate 1 Mg Tablet) 1 mg PO BEDTIME PRN PRN Reason: EPS Benztropine Mesylate (Benztropine Mesylate 1 Mg Tablet) 2 mg PO DAILY [facility]PL[facility] Last Admin: 09/19/24 10:10 Dose: Not Given Bisacodyl (Bisacodyl 5 Mg Tablet.Dr) 5 mg PO BEDTIME PRN PRN Reason: Constipation Last Admin: 09/19/24 09:54 Dose: 5 mg Divalproex Sodium (Divalproex Sodium Er 500 Mg Tab.Er.24h) 1,000 mg PO BEDTIME REPLACED BY [facility] Last Admin: 09/18/24 22:20 Dose: 1,000 mg Haloperidol Lactate (Haloperidol Lactate 5 Mg/Ml Vial) 5 mg IM TID PRN PRN Reason: if refuses Thiothexine Magnesium Hydroxide (Milk Of Magnesia 30 Ml Oral.Susp) 30 ml PO DAILY PRN PRN Reason: Constipation Metoprolol Tartrate (Metoprolol Tartrate 25 Mg Tablet) 25 mg PO DAILY [facility]; Protocol Last Admin: 09/19/24 10:10 Dose: Not Given Multivitamins/Vitamin C (Multivitamin Tablet) 1 tab PO DAILY [facility] Last Admin: 09/19/24 10:10 Dose: Not Given Nicotine (Nicotine 21 Mg Patch.Td24) 21 mg TRANSDERMA DAILY PRN PRN Reason: smoking cessation Nicotine Polacrilex (Nicotine Polacrilex 2 Mg Gum) 4 mg BUCCAL Q2H PRN PRN Reason: Nicotine Cravings Pt Owned Med ( (Thiothixene 5mg Tab)) 1 each PO BID@1600,2100 REPLACED BY [facility] Last Admin: 09/18/24 22:20 Dose: 1 each Olanzapine (Olanzapine 10 Mg Vial) 10 mg IM DAILY PRN PRN Reason: if refuses PO Abilify 20mg Last Admin: 09/16/24 16:04 Dose: 10 mg Olanzapine (Olanzapine 10 Mg Vial) 5 mg IM DAILY PRN PRN Reason: give if refuses Depakote Last Admin: 09/17/24 23:04 Dose: 5 mg Torsemide (Torsemide 20 Mg Tablet) 100 mg PO TuThSa REPLACED BY [facility]; Protocol Last Admin: 09/19/24 08:30 Dose: Not Given Trazodone HCl (Trazodone Hcl 50 Mg Tablet) 50 mg PO BEDTIME MRX1 PRN PRN Reason: Insomnia Allergies Allergies Allergy/AdvReac Type Severity Reaction Status Date / Time No Known Allergies Allergy Verified 07/24/23 11:18 Assessment & Plan Assessment & Plan (1) ESRD (end stage renal disease): Status: Acute Code(s): N18.6 - End stage renal disease Plan ayush Holcomb is a 69 year old male with past medical history of ESRD on HD, bipolar disorder, Afib on Eliquis, s/p TAVR, hypertension, hyperlipidemia who presented to [facility] [place] with erratic behavior over the past few weeks. Seen by Psych for decompensated bipolar illness in the inpt psych unit. Nephrology consulted for ESRD. 1. ESRD Dialyzes MWF at [facility] via LUE AVF 2. 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
--- NOTE | 2024-09-19 11:07 | P.PNPSI_ITS ---
Subjective Subjective Reason For Visit: Unspecified Bipolar D/O Depression Anxiety Diagnostics Vital Signs (24Hr): Vital Signs - 24 hr 09/18/24 14:26 09/19/24 08:00 Temperature 97.6 F Pulse Rate 80 Respiratory Rate 16 16 Blood Pressure 128/60 Pulse Oximetry 94 Oxygen Delivery Method Room Air Labs 09/13/24 10:10 Medications Medications Current Medications Acetaminophen (Acetaminophen 325 Mg Tablet) 650 mg PO Q6H PRN PRN Reason: Headache/Pain, Scale 1-10 Al Hydroxide/Mg Hydroxide (Magnesium Hydrox/Alum Hydrox 30 Ml Oral.Susp) 30 ml PO Q6H PRN PRN Reason: Heartburn/Nausea Apixaban (Apixaban 2.5 Mg Tablet) 2.5 mg PO BID [facility] Last Admin: 09/19/24 10:10 Dose: Not Given Aripiprazole (Aripiprazole 20 Mg Tablet) 20 mg PO DAILY [facility] Last Admin: 09/19/24 09:54 Dose: 20 mg Aripiprazole (Aripiprazole 5 Mg Tablet) 5 mg PO DAILY [facility] Last Admin: 09/19/24 09:54 Dose: 5 mg Benztropine Mesylate (Benztropine Mesylate 1 Mg Tablet) 1 mg PO BEDTIME PRN PRN Reason: EPS Benztropine Mesylate (Benztropine Mesylate 1 Mg Tablet) 2 mg PO DAILY [facility] Last Admin: 09/19/24 10:10 Dose: Not Given Bisacodyl (Bisacodyl 5 Mg Tablet.Dr) 5 mg PO BEDTIME PRN PRN Reason: Constipation Last Admin: 09/19/24 09:54 Dose: 5 mg Divalproex Sodium (Divalproex Sodium Er 500 Mg Tab.Er.24h) 1,000 mg PO BEDTIME [facility] Last Admin: 09/18/24 22:20 Dose: 1,000 mg Haloperidol Lactate (Haloperidol Lactate 5 Mg/Ml Vial) 5 mg IM TID PRN PRN Reason: if refuses Thiothexine Magnesium Hydroxide (Milk Of Magnesia 30 Ml Oral.Susp) 30 ml PO DAILY PRN PRN Reason: Constipation Metoprolol Tartrate (Metoprolol Tartrate 25 Mg Tablet) 25 mg PO DAILY [facility]; Protocol Last Admin: 09/19/24 10:10 Dose: Not Given Multivitamins/Vitamin C (Multivitamin Tablet) 1 tab PO DAILY [facility] Last Admin: 09/19/24 10:10 Dose: Not Given Nicotine (Nicotine 21 Mg Patch.Td24) 21 mg TRANSDERMA DAILY PRN PRN Reason: smoking cessation Nicotine Polacrilex (Nicotine Polacrilex 2 Mg Gum) 4 mg BUCCAL Q2H PRN PRN Reason: Nicotine Cravings Pt Owned Med ( (Thiothixene 5mg Tab)) 1 each PO BID@1600,2100 [facility] Last Admin: 09/18/24 22:20 Dose: 1 each Olanzapine (Olanzapine 10 Mg Vial) 10 mg IM DAILY PRN PRN Reason: if refuses PO Abilify 20mg Last Admin: 09/16/24 16:04 Dose: 10 mg Olanzapine (Olanzapine 10 Mg Vial) 5 mg IM DAILY PRN PRN Reason: give if refuses Depakote Last Admin: 09/17/24 23:04 Dose: 5 mg Torsemide (Torsemide 20 Mg Tablet) 100 mg PO TuThSa [facility]; Protocol Last Admin: 09/19/24 08:30 Dose: Not Given Trazodone HCl (Trazodone Hcl 50 Mg Tablet) 50 mg PO BEDTIME MRX1 PRN PRN Reason: Insomnia Allergies Allergies Allergy/AdvReac Type Severity Reaction Status Date / Time No Known Allergies Allergy Verified 07/24/23 11:18 Assessment & Plan Assessment & Plan (1) ESRD (end stage renal disease): Status: Acute Code(s): N18.6 - End stage renal disease Plan ayush Holcomb is a 69 year old male with past medical history of ESRD on HD, bipolar disorder, Afib on Eliquis, s/p TAVR, hypertension, hyperlipidemia who [place] [facility] behavior over the past few weeks. Seen by Psych for decompensated bipolar illness in the inpt psych unit. Nephrology consulted for ESRD. 1. ESRD Dialyzes MWF at [facility] via LUE AVF 2. 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
--- NOTE | 2024-09-19 16:17 | PM.PNNEP ---
Subjective Subjective Date of Service: 09/19/24 Interval history: Met with patient; Physical Exam Vital Signs: Vital Signs: Last Vital Signs Temp 97.6 F 09/19/24 08:00 Pulse 80 09/19/24 08:00 Resp 16 09/19/24 08:00 BP 128/60 09/19/24 08:00 Pulse Ox 94 09/19/24 08:00 O2 Del Method Room Air 09/19/24 08:00 cvs: ss2 Rs; cta Abd; soft Objective Data Labs 09/13/24 10:10 Procedures Date of Service Date of Service: 09/19/24 Assessment & Plan Assessment and plan (1) ESRD (end stage renal disease): Status: Acute Plan ayush Holcomb is a 69 year old male with past medical history of ESRD on HD, bipolar disorder, Afib on Eliquis, s/p TAVR, hypertension, hyperlipidemia who presented to [facility] [place] with erratic behavior over the past few weeks. Seen by Psych for decompensated bipolar illness in the inpt psych unit. Nephrology consulted for ESRD. 1. ESRD Dialyzes MWF at [facility] via LUE AVF 2. 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
[2024-09-19 20:00] VITALS: BP 141/70; PULSE 76; RESP 18; TEMP 36.4; O2SAT 95
[2024-09-19] MEDS: [UNRECOGNIZED DRUG - OTHER] 1 EACH PO (21:49)
[2024-09-19] MEDS: OLANZapine 10 MG VIAL 5 MG IM (22:03)
[2024-09-20 08:00] VITALS: BP 122/70; TEMP 36.9; O2SAT 96
--- NOTE | 2024-09-20 11:33 | HO.PM.IMCN ---
History of Present Illness Data of Consult Service Date: 09/20/24 Primary Care Provider: CARLOS Pretty [facility] Reason for consult: Right great toe wound 69-year-old male with a past medical history of end-stage renal disease on dialysis Monday, bipolar affective disorder, history of catatonia, AFib on Eliquis which he has been refusing, hypertension, anemia related to chronic kidney disease, aortic stenosis status post TAVR was admitted to [facility] originally with manic behaviors and psychosis, it is now being treated on M5. Patient is being seen for a question of a right great toe infection. On exam he has a open area on his right great toe, per nursing he had a blister on his toe that he was asking nursing to pop for him. Patient has a dark toenail, reports that he banged this prior to admission. Toe is red and bulbous, no warmth. Patient is declining any treatment at all for this toe. Plans to possibly give antibiotics during dialysis treatments, triple drum operator made aware, ID consult placed. Review of Systems Review of Systems: He denies any shortness of breath or chest pain, denies any toe pain PMFSH Medical History Anemia Anemia Hypertension Bipolar disorder Dialysis patient Social History Household Members: Spouse Housing: House Do you presently have visiting nurse or other home services: No Unable to assess alcohol history related to: Refusing to respond Alcohol intake: never Comment: 1:1 sitter Patient Tobacco Use Status: Never used Tobacco Smoked in Last 30 Days: No e-Cigarette/Vaping Use: Never Used Second Hand Smoke Exposure: No Currently Displaying Signs/Symptoms of Drug Intoxication Withdrawal: No Have you been hit, kicked, punched, or otherwise hurt by someone within the past year? If so, by whom?: No Do you feel safe in your current relationship?: Yes Is there a partner from a previous relationship who is making you feel unsafe now?: No Are you made to feel afraid or neglected: No Spiritual Healthcare Practices: unknown Uatsdin Healthcare Practices: unknown Cultural Healthcare Practices: unknown Advance Directives: Yes Advance Directives on File: Yes Advance Directives Date on File: 10/11/22 Do you have thoughts of harming others: None Do you have a plan to hurt others: No Plan Recently lost weight without trying: No How much weight loss: 2-13 pounds Eating poorly because of decreased appetite: No Nutrition screen score: 1 Nutrition Risks: No Nutritional Risk Poor oral hygiene: No service: No Current occupational status: disabled Sexual orientation: Straight/Heterosexual Meds Allergies Allergy/AdvReac Type Severity Reaction Status Date / Time No Known Allergies Allergy Verified 07/24/23 11:18 Active Medications: Current Medications Acetaminophen (Acetaminophen 325 Mg Tablet) 650 mg PO Q6H PRN PRN Reason: Headache/Pain, Scale 1-10 Al Hydroxide/Mg Hydroxide (Magnesium Hydrox/Alum Hydrox 30 Ml Oral.Susp) 30 ml PO Q6H PRN PRN Reason: Heartburn/Nausea Apixaban (Apixaban 2.5 Mg Tablet) 2.5 mg PO BID [facility] Last Admin: 09/20/24 11:06 Dose: Not Given Aripiprazole (Aripiprazole 20 Mg Tablet) 20 mg PO DAILY [facility] Last Admin: 09/19/24 09:54 Dose: 20 mg Aripiprazole (Aripiprazole 5 Mg Tablet) 5 mg PO DAILY [facility] Last Admin: 09/19/24 09:54 Dose: 5 mg Benztropine Mesylate (Benztropine Mesylate 1 Mg Tablet) 1 mg PO BEDTIME PRN PRN Reason: EPS Benztropine Mesylate (Benztropine Mesylate 1 Mg Tablet) 2 mg PO DAILY [facility] Last Admin: 09/20/24 11:06 Dose: Not Given Bisacodyl (Bisacodyl 5 Mg Tablet.Dr) 5 mg PO BEDTIME PRN PRN Reason: Constipation Last Admin: 09/19/24 09:54 Dose: 5 mg Divalproex Sodium (Divalproex Sodium Er 500 Mg Tab.Er.24h) 1,000 mg PO BEDTIME [facility] Last Admin: 09/19/24 22:00 Dose: Not Given Haloperidol Lactate (Haloperidol Lactate 5 Mg/Ml Vial) 5 mg IM TID PRN PRN Reason: if refuses Thiothexine Magnesium Hydroxide (Milk Of Magnesia 30 Ml Oral.Susp) 30 ml PO DAILY PRN PRN Reason: Constipation Metoprolol Tartrate (Metoprolol Tartrate 25 Mg Tablet) 25 mg PO DAILY [facility]; Protocol Last Admin: 09/20/24 11:06 Dose: Not Given Multivitamins/Vitamin C (Multivitamin Tablet) 1 tab PO DAILY [facility] Last Admin: 09/20/24 11:07 Dose: Not Given Nicotine (Nicotine 21 Mg Patch.Td24) 21 mg TRANSDERMA DAILY PRN PRN Reason: smoking cessation Nicotine Polacrilex (Nicotine Polacrilex 2 Mg Gum) 4 mg BUCCAL Q2H PRN PRN Reason: Nicotine Cravings Pt Owned Med ( (Thiothixene 5mg Tab)) 1 each PO BID@1600,2100 [facility] Last Admin: 09/19/24 21:49 Dose: 1 each Olanzapine (Olanzapine 10 Mg Vial) 10 mg IM DAILY PRN PRN Reason: if refuses PO Abilify 20mg Last Admin: 09/16/24 16:04 Dose: 10 mg Olanzapine (Olanzapine 10 Mg Vial) 5 mg IM DAILY PRN PRN Reason: give if refuses Depakote Last Admin: 09/19/24 22:03 Dose: 5 mg Torsemide (Torsemide 20 Mg Tablet) [facility]; Protocol Last Admin: 09/19/24 08:30 Dose: Not Given Trazodone HCl (Trazodone Hcl 50 Mg Tablet) 50 mg PO BEDTIME MRX1 PRN PRN Reason: Insomnia Home Medications ?Medication ?Instructions ?Recorded ?Confirmed ?Last Taken ?Type apixaban 2.5 mg tablet 2.5 mg PO BID 09/05/24 09/05/24 Unknown History aripiprazole 5 mg tablet 5 mg PO DAILY 09/05/24 09/05/24 Unknown History benztropine 1 mg tablet 1 mg PO BEDTIME PRN EPS 09/05/24 09/05/24 Unknown History benztropine 2 mg tablet 2 mg PO DAILY 09/05/24 09/05/24 Unknown History divalproex 500 mg tablet,extended 500 mg PO DAILY 09/05/24 09/05/24 Unknown History release 24 hr metoprolol tartrate 25 mg tablet 25 mg PO DAILY 09/05/24 09/05/24 Unknown History thiothixene 5 mg capsule 5 mg PO TID 09/05/24 09/05/24 Unknown History torsemide 100 mg tablet See Rx Instructions .Route .COMPLEX 09/05/24 09/05/24 Unknown History Physical Exam Vital Signs and Narrative: Vital Signs: Last Vital Signs Temp 98.4 F 09/20/24 08:00 Pulse 76 09/19/24 20:00 Resp 18 09/19/24 20:00 BP 122/70 09/20/24 08:00 Pulse Ox 96 09/20/24 08:00 O2 Del Method Room Air 09/20/24 08:00 CONST: Alert and oriented, in NAD. Well nourished HEENT: Normocephalic, atraumatic, MMM RESP: Declined HEART:Declined GI:Declined :Deferred SKIN: Warm dry and intact. Open area to toe. Toe red, no warmth. Small amount serosang drainage. NEURO:CN II-XII Intact bilaterally, Sensation intact. Speech clear PSYCH: Normal affect Results Labs 09/13/24 10:10 Assessment and Plan (1) Open wound of right great toe: Status: Acute Plan Right great toe wound Patient reports bumping his toe prior to admit which caused the toenail injury. Reports that he developed a blister on his Right great toe that has now popped. Toe is red, tender to touch, dry clean dressing in place, Patient is refusing oral antibiotics, Updated Nephrology for plan for IV antibiotics during dialysis ID consult Continue dry dressings Wound nurse consult
--- NOTE | 2024-09-20 15:19 | HO.PSYCHPN ---
Subjective Subjective Date of Service: 09/20/24 Reason For Visit: Unspecified Bipolar D/O Depression Anxiety Interim History: Dialysis today. Struggling with medicine compliance. On 09/19, refused torsemide, apixaban, mvi, benztropine, metoprolol, thiothixene, depakote. Struggling to take court ordered/HCP ordered meds upon return from dialysis, but did accept Abilify and Thiothixene after much encouragement Will talk briefly, then walks away. Encouraged ongoing treatment, ghada urrutia yea . Continues to deny sx but with paranoia, delusions persisting. Will continue current regime as pt has missed thiothixene dosages. Orders updated. Seen by hospitalist for R Great Toe infection-pt refusing Rx, Hospitalist has informed health plan specialist- ?IVABX during dialysis. Infectious Disease team will consult as well. Medication Compliance: Intermittent Side effects from medications: No Attending Groups: No Review of Systems Acute medical concerns: Yes Medical Review of Systems: unchanged Review of Systems Review of Systems Attended dialysis today I am fine. Mental Status Exam Mental Status Exam Patient Appearance: Appropriate Patient Orientation: Person and Place Level of Consciousness: Alert Patient Behavior: Guarded Mood Description: Withdrawn Affect Description: Withdrawn Patient Cognition Impaired: No Ability to Follow Directions: Fair Speech Pattern: Spontaneous Speech Memory Description: Episodic Impaired Hallucinations: None (??) Delusions: Paranoid Ideation Perceptual Disturbances: Derealization Thought Process: Distracted and Rumination Thought Content: positive for Obsessional Thoughts and positive for Suicidal Ideation ( no ) Judgement: Poor Diagnostics Vital Signs (24Hr): Vital Signs - 24 hr 09/19/24 20:00 09/20/24 08:00 Temperature 97.5 F 98.4 F Pulse Rate 76 Respiratory Rate 18 Blood Pressure 141/70 H 122/70 Pulse Oximetry 95 96 Oxygen Delivery Method Room Air Room Air Labs 09/13/24 10:10 Medications Medications Current Medications Acetaminophen (Acetaminophen 325 Mg Tablet) 650 mg PO Q6H PRN PRN Reason: Headache/Pain, Scale 1-10 Al Hydroxide/Mg Hydroxide (Magnesium Hydrox/Alum Hydrox 30 Ml Oral.Susp) 30 ml PO Q6H PRN PRN Reason: Heartburn/Nausea Apixaban (Apixaban 2.5 Mg Tablet) 2.5 mg PO BID [facility] Last Admin: 09/20/24 11:06 Dose: Not Given Aripiprazole (Aripiprazole 20 Mg Tablet) 20 mg PO DAILY [facility] Last Admin: 09/19/24 09:54 Dose: 20 mg Aripiprazole (Aripiprazole 5 Mg Tablet) 5 mg PO DAILY [facility] Last Admin: 09/19/24 09:54 Dose: 5 mg Benztropine Mesylate (Benztropine Mesylate 1 Mg Tablet) 1 mg PO BEDTIME PRN PRN Reason: EPS Benztropine Mesylate (Benztropine Mesylate 1 Mg Tablet) 2 mg PO DAILY [facility] Last Admin: 09/20/24 11:06 Dose: Not Given Bisacodyl (Bisacodyl 5 Mg Tablet.Dr) 5 mg PO BEDTIME PRN PRN Reason: Constipation Last Admin: 09/19/24 09:54 Dose: 5 mg Divalproex Sodium (Divalproex Sodium Er 500 Mg Tab.Er.24h) 1,000 mg PO BEDTIME [facility] Last Admin: 09/19/24 22:00 Dose: Not Given Haloperidol Lactate (Haloperidol Lactate 5 Mg/Ml Vial) 5 mg IM TID PRN PRN Reason: if refuses Thiothexine Magnesium Hydroxide (Milk Of Magnesia 30 Ml Oral.Susp) 30 ml PO DAILY PRN PRN Reason: Constipation Metoprolol Tartrate (Metoprolol Tartrate 25 Mg Tablet) 25 mg PO DAILY [facility]; Protocol Last Admin: 09/20/24 11:06 Dose: Not Given Multivitamins/Vitamin C (Multivitamin Tablet) 1 tab PO DAILY [facility] Last Admin: 09/20/24 11:07 Dose: Not Given Nicotine (Nicotine 21 Mg Patch.Td24) 21 mg TRANSDERMA DAILY PRN PRN Reason: smoking cessation Nicotine Polacrilex (Nicotine Polacrilex 2 Mg Gum) 4 mg BUCCAL Q2H PRN PRN Reason: Nicotine Cravings Pt Owned Med ( (Thiothixene 5mg Tab)) 1 each PO BID@1600,2100 [facility] Last Admin: 09/19/24 21:49 Dose: 1 each Olanzapine (Olanzapine 10 Mg Vial) 10 mg IM DAILY PRN PRN Reason: if refuses PO Abilify 20mg Last Admin: 09/16/24 16:04 Dose: 10 mg Olanzapine (Olanzapine 10 Mg Vial) 5 mg IM DAILY PRN PRN Reason: give if refuses Depakote Last Admin: 09/19/24 22:03 Dose: 5 mg Torsemide (Torsemide 20 Mg Tablet) [facility] Last Admin: 09/19/24 08:30 Dose: Not Given Trazodone HCl (Trazodone Hcl 50 Mg Tablet) 50 mg PO BEDTIME MRX1 PRN PRN Reason: Insomnia Allergies Allergies Allergy/AdvReac Type Severity Reaction Status Date / Time No Known Allergies Allergy Verified 07/24/23 11:18 Assessment & Plan Assessment & Plan (1) Open wound of right great toe: Status: Acute Code(s): S91.101A - Unspecified open wound of right great toe without damage to nail, initial encounter (2) Bipolar disorder: Status: Acute Code(s): F31.9 - Bipolar disorder, unspecified Assessment and Plan: 09/20: Continues with strong treatment resistance, paranoia, delusional content. Refusing meds, refusing treatment of R Great Toe infection-team may use IVABX with dialysis. Thiothixene orders were clarified today regarding mandatory compliance. Plan Right great toe wound Patient reports bumping his toe prior to admit which caused the toenail injury. Reports that he developed a blister on his Right great toe that has now popped. Toe is red, tender to touch, dry clean dressing in place, Patient is refusing oral antibiotics, Updated Nephrology for plan for IV antibiotics during dialysis ID consult Continue dry dressings Wound nurse consult Reason for continued inpatient stay Substantial Risk for: rapid decompensation and med/psych decompensation Time Spent With Patient Time: Total time managing care of this patient today ____ minutes.
[2024-09-20] MEDS: [UNRECOGNIZED DRUG - OTHER] 1 EACH PO ×2 (16:35→22:47)
--- NOTE | 2024-09-20 16:36 | HO.WOUND ---
Wound Consult: Initial 69yr old? male admitted to [facility] [place] [place] on 09/05/24 17:25- See progress notes and H&P for detailed history.? Wound consult placed for Right Great Toe wound.? Patient is not agreeable to assessment and photo documentation at this time. He reports he wanted to make a phone call direct care team attempted to intervene and have him allow my assessment but he continued refusal. He is agreeable per his statement for me to come Monday. Keeley Smith NP aware not able to assess. Based on photo review the wound bed appears relatively clean there is lateral area that may be macerated but may intact be a pocket - will need in person assessment. There is mild erythema noted to the wound edge along with black partial nail bed. Right Great Toe Etiology: ??Unclear Etiology and time line at this time. Wound Bed: appears relatively clean there is lateral area that may be macerated but may intact be a pocket - will need in person assessment Drainage / Odor: unknown Edges: ? macerated and rolled Mariya wound: erythema and nail bed discoloration Goals of Treatment: ? Recommend durafiber for moisture management until further assessment. Recommend provider follow up on imaging for osteo and or abscess. Recommendations: Right Great Toe - Cleanse with ns pat dry or wash with routine showering with soap and water. Pat dry. Cover open wound bed with Durafiber AG followed by bandaid. May change every other day or daily if showering daily. Re-consult wound care Nurse for wound deterioration or wound changes.
--- NOTE | 2024-09-20 16:45 | P.CNID_ITS ---
History of Present Illness Data of Consult Service Date: 09/20/24 Requesting physician: Jayde Prince Primary Care Provider: CARLOS Pretty HPI Reason for consult: right toe wound He has stubbed right great toe two weeks ago. He has no fever or chills. He has blister that popped and is using bandaids. He has ESRD and is on HD. Review of Systems 2 Review of Systems: Yes all other systems are reviewed and are negative [facility] Past Medical History Medical History Anemia Anemia Hypertension Bipolar disorder Dialysis patient Family History Family history: reviewed and not pertinent Social History Social History Household Members: Spouse Housing: House Do you presently have visiting nurse or other home services: No Unable to assess alcohol history related to: Refusing to respond Alcohol intake: never Comment: 1:1 sitter Patient Tobacco Use Status: Never used Tobacco Smoked in Last 30 Days: No e-Cigarette/Vaping Use: Never Used Second Hand Smoke Exposure: No Currently Displaying Signs/Symptoms of Drug Intoxication Withdrawal: No Have you been hit, kicked, punched, or otherwise hurt by someone within the past year? If so, by whom?: No Do you feel safe in your current relationship?: Yes Is there a partner from a previous relationship who is making you feel unsafe now?: No Are you made to feel afraid or neglected: No Spiritual Healthcare Practices: unknown Denominational Healthcare Practices: unknown Cultural Healthcare Practices: unknown Advance Directives: Yes Advance Directives on File: Yes Advance Directives Date on File: 10/11/22 Do you have thoughts of harming others: None Do you have a plan to hurt others: No Plan Recently lost weight without trying: No How much weight loss: 2-13 pounds Eating poorly because of decreased appetite: No Nutrition screen score: 1 Nutrition Risks: No Nutritional Risk Poor oral hygiene: No service: No Current occupational status: disabled Sexual orientation: Straight/Heterosexual Meds Allergies Allergy/AdvReac Type Severity Reaction Status Date / Time No Known Allergies Allergy Verified 07/24/23 11:18 Active Medications: Current Medications Acetaminophen (Acetaminophen 325 Mg Tablet) 650 mg PO Q6H PRN PRN Reason: Headache/Pain, Scale 1-10 Al Hydroxide/Mg Hydroxide (Magnesium Hydrox/Alum Hydrox 30 Ml Oral.Susp) 30 ml PO Q6H PRN PRN Reason: Heartburn/Nausea Apixaban (Apixaban 2.5 Mg Tablet) 2.5 mg PO BID [facility] Last Admin: 09/20/24 11:06 Dose: Not Given Aripiprazole (Aripiprazole 20 Mg Tablet) 20 mg PO DAILY [facility] Last Admin: 09/20/24 16:35 Dose: 20 mg Aripiprazole (Aripiprazole 5 Mg Tablet) 5 mg PO DAILY [facility] Last Admin: 09/20/24 16:35 Dose: 5 mg Benztropine Mesylate (Benztropine Mesylate 1 Mg Tablet) 1 mg PO BEDTIME PRN PRN Reason: EPS Benztropine Mesylate (Benztropine Mesylate 1 Mg Tablet) 2 mg PO DAILY [facility] Last Admin: 09/20/24 11:06 Dose: Not Given Bisacodyl (Bisacodyl 5 Mg Tablet.Dr) 5 mg PO BEDTIME PRN PRN Reason: Constipation Last Admin: 09/19/24 09:54 Dose: 5 mg Divalproex Sodium (Divalproex Sodium Er 500 Mg Tab.Er.24h) 1,000 mg PO BEDTIME [facility] Last Admin: 09/19/24 22:00 Dose: Not Given Haloperidol Lactate (Haloperidol Lactate 5 Mg/Ml Vial) 5 mg IM TID PRN PRN Reason: if refuses Thiothexine Magnesium Hydroxide (Milk Of Magnesia 30 Ml Oral.Susp) 30 ml PO DAILY PRN PRN Reason: Constipation Metoprolol Tartrate (Metoprolol Tartrate 25 Mg Tablet) 25 mg PO DAILY [facility]; Protocol Last Admin: 09/20/24 11:06 Dose: Not Given Multivitamins/Vitamin C (Multivitamin Tablet) 1 tab PO DAILY [facility] Last Admin: 09/20/24 11:07 Dose: Not Given Nicotine (Nicotine 21 Mg Patch.Td24) 21 mg TRANSDERMA DAILY PRN PRN Reason: smoking cessation Nicotine Polacrilex (Nicotine Polacrilex 2 Mg Gum) 4 mg BUCCAL Q2H PRN PRN Reason: Nicotine Cravings Pt Owned Med ( (Thiothixene 5mg Tab)) 1 each PO BID@1600,2100 [facility] Last Admin: 09/20/24 16:35 Dose: 1 each Olanzapine (Olanzapine 10 Mg Vial) 10 mg IM DAILY PRN PRN Reason: if refuses PO Abilify 20mg Last Admin: 09/16/24 16:04 Dose: 10 mg Olanzapine (Olanzapine 10 Mg Vial) 5 mg IM DAILY PRN PRN Reason: give if refuses Depakote Last Admin: 09/19/24 22:03 Dose: 5 mg Torsemide (Torsemide 20 Mg Tablet) [facility]; Protocol Last Admin: 09/19/24 08:30 Dose: Not Given Trazodone HCl (Trazodone Hcl 50 Mg Tablet) 50 mg PO BEDTIME MRX1 PRN PRN Reason: Insomnia Home Medications ?Medication ?Instructions ?Recorded ?Confirmed ?Last Taken ?Type apixaban 2.5 mg tablet 2.5 mg PO BID 09/05/2409/05 Unknown History aripiprazole 5 mg tablet 5 mg PO DAILY 09/05/2409/05 Unknown History benztropine 1 mg tablet 1 mg PO BEDTIME PRN EPS 08/2509/05/24 Unknown History benztropine 2 mg tablet 2 mg PO DAILY 09/05/2409/05 Unknown History divalproex 500 mg tablet,extended 500 mg PO DAILY 08/2509/05/24 Unknown History release 24 hr metoprolol tartrate 25 mg tablet 25 mg PO DAILY 09/05/24 Unknown History thiothixene 5 mg capsule 5 mg PO TID 09/05/24 5 Unknown History torsemide 100 mg tablet See Rx Instructions .Route . COMPLEX 09/05/24 09/05/24 Unknown History Physical Exam 2 Vital Signs: Vital Signs: Last Vital Signs Temp 98.4 F 09/20/24 08:00 Pulse 76 09/19/24 20:00 Resp 18 09/19/24 20:00 BP 122/70 09/20/24 08:00 Pulse Ox 96 09/20/24 08:00 O2 Del Method Room Air 09/20/24 08:00 Const: General: cooperative HEENT: Head: Yes normal to inspection Face and sinus: Yes normal facial exam Mouth: Normal oral and palatal mucosa present Teeth and gingiva: d entition normal Eyes: General: appearance normal, both eyes and all related structures P upils: Equal, round and reactive pupils present Resp: Effort & Inspection: normal respiratory effort Cardio: Rate: regular rate Rhythm: regular rhythm GI: Palpation (GI): Soft to palpation and nontender : General: Yes no CVA tenderness Back/Spine/Pelvis: Back: no CVA tenderness Skin: General skin exam: no rashes or lesions noted Neuro: General: moves all extremities Cranial nerves: Yes Equal, round and reactive pupils present Extrem: Other: right toe red DIP pulses intact Psych: Appearance: grossly normal Results Labs 09/13/24 10:10 Assessment and Plan (1) Open wound of right great toe: Status: Acute Plan Possible staph aureus including MRSA He may have OM There is cellulitis and darkness nail. Would give IV Vancomycin with HD possible week or more,want to check foot XRay but patient declines for now.
--- NOTE | 2024-09-21 05:59 | P.PNPSI_ITS ---
Subjective Subjective Date of Service: 09/21/24 Reason For Visit: Unspecified Bipolar D/O Depression Anxiety Interim History: I feel fine I am ready to go home . Pt is dismissive and only will speak briefly to tw. Pt denies any current sx of illness visited. Medication compliance remains an issue Medication Compliance: Intermittent Side effects from medications: No Attending Groups: No Review of Systems Acute medical concerns: Yes Review of Systems Review of Systems Dialysis Mental Status Exam Mental Status Exam Patient Appearance: Appropriate Patient Orientation: Person and Place Level of Consciousness: Alert Patient Behavior: Guarded Mood Description: Withdrawn Affect Description: Withdrawn Patient Cognition Impaired: No Ability to Follow Directions: Fair Speech Pattern: Spontaneous Speech Memory Description: Episodic Impaired Hallucinations: None (??) Delusions: Paranoid Ideation Perceptual Disturbances: Derealization Thought Process: Distracted and Rumination Thought Content: positive for Obsessional Thoughts and positive for Suicidal Ideation ( no ) Judgement: Poor Diagnostics Vital Signs (24Hr): Vital Signs - 24 hr 09/20/24 08:00 Temperature 98.4 F Blood Pressure 122/70 Pulse Oximetry 96 Oxygen Delivery Method Room Air Labs 09/13/24 10:10 Medications Medications Current Medications Acetaminophen (Acetaminophen 325 Mg Tablet) 650 mg PO Q6H PRN PRN Reason: Headache/Pain, Scale 1-10 Al Hydroxide/Mg Hydroxide (Magnesium Hydrox/Alum Hydrox 30 Ml Oral.Susp) 30 ml PO Q6H PRN PRN Reason: Heartburn/Nausea Apixaban (Apixaban 2.5 Mg Tablet) 2.5 mg PO BID [facility] Last Admin: 09/20/24 22:54 Dose: Not Given Aripiprazole (Aripiprazole 20 Mg Tablet) 20 mg PO DAILY [facility] Last Admin: 09/20/24 16:35 Dose: 20 mg Aripiprazole (Aripiprazole 5 Mg Tablet) 5 mg PO DAILY [facility] Last Admin: 09/20/24 16:35 Dose: 5 mg Benztropine Mesylate (Benztropine Mesylate 1 Mg Tablet) 1 mg PO BEDTIME PRN PRN Reason: EPS Benztropine Mesylate (Benztropine Mesylate 1 Mg Tablet) 2 mg PO DAILY [facility] Last Admin: 09/20/24 11:06 Dose: Not Given Bisacodyl (Bisacodyl 5 Mg Tablet.Dr) 5 mg PO BEDTIME PRN PRN Reason: Constipation Last Admin: 09/19/24 09:54 Dose: 5 mg Divalproex Sodium (Divalproex Sodium Er 500 Mg Tab.Er.24h) 1,000 mg PO BEDTIME [facility] Last Admin: 09/20/24 22:51 Dose: 1,000 mg Haloperidol Lactate (Haloperidol Lactate 5 Mg/Ml Vial) 5 mg IM TID PRN PRN Reason: if refuses Thiothexine Magnesium Hydroxide (Milk Of Magnesia 30 Ml Oral.Susp) 30 ml PO DAILY PRN PRN Reason: Constipation Metoprolol Tartrate (Metoprolol Tartrate 25 Mg Tablet) 25 mg PO DAILY [facility]; Protocol Last Admin: 09/20/24 11:06 Dose: Not Given Multivitamins/Vitamin C (Multivitamin Tablet) 1 tab PO DAILY [facility] Last Admin: 09/20/24 11:07 Dose: Not Given Nicotine (Nicotine 21 Mg Patch.Td24) 21 mg TRANSDERMA DAILY PRN PRN Reason: smoking cessation Nicotine Polacrilex (Nicotine Polacrilex 2 Mg Gum) 4 mg BUCCAL Q2H PRN PRN Reason: Nicotine Cravings Pt Owned Med ( (Thiothixene 5mg Tab)) 1 each PO BID@1600,2100 [facility] Last Admin: 09/20/24 22:47 Dose: 1 each Olanzapine (Olanzapine 10 Mg Vial) 10 mg IM DAILY PRN PRN Reason: if refuses PO Abilify 20mg Last Admin: 09/16/24 16:04 Dose: 10 mg Olanzapine (Olanzapine 10 Mg Vial) 5 mg IM DAILY PRN PRN Reason: give if refuses Depakote Last Admin: 09/19/24 22:03 Dose: 5 mg Torsemide (Torsemide 20 Mg Tablet) 100 mg PO TuThSa [facility]; Protocol Last Admin: 09/19/24 08:30 Dose: Not Given Trazodone HCl (Trazodone Hcl 50 Mg Tablet) 50 mg PO BEDTIME MRX1 PRN PRN Reason: Insomnia Allergies Allergies Allergy/AdvReac Type Severity Reaction Status Date / Time No Known Allergies Allergy Verified 07/24/23 11:18 Assessment & Plan Assessment & Plan (1) Open wound of right great toe: Status: Acute Code(s): S91.101A - Unspecified open wound of right great toe without damage to nail, initial encounter (2) Bipolar disorder: Status: Acute Code(s): F31.9 - Bipolar disorder, unspecified Assessment and Plan: 09/20: Continues with strong treatment resistance, paranoia, delusional content. Refusing meds, refusing treatment of R Great Toe infection-team may use IVABX with dialysis. Thiothixene orders were clarified today regarding mandatory compliance. 09/21: Continue tx Continue to encourage tx compliance Plan Right great toe wound Patient reports bumping his toe prior to admit which caused the toenail injury. Reports that he developed a blister on his Right great toe that has now popped. Toe is red, tender to touch, dry clean dressing in place, Patient is refusing oral antibiotics, Updated Nephrology for plan for IV antibiotics during dialysis ID consult Continue dry dressings Wound nurse consult Reason for continued inpatient stay Substantial Risk for: rapid decompensation Time Spent With Patient Time: Total time managing care of this patient today ____ minutes.
[2024-09-21 08:00] VITALS: RESP 18
[2024-09-21 09:46] VITALS: BP 126/64; PULSE 76; RESP 16; TEMP 36.3; O2SAT 96
[2024-09-21] MEDS: [UNRECOGNIZED DRUG - OTHER] 1 EACH PO ×2 (16:00→22:03)
--- NOTE | 2024-09-22 05:39 | HO.PSYCHPN ---
Subjective Subjective Date of Service: 09/22/24 Reason For Visit: Unspecified Bipolar D/O Depression Anxiety Healthcare Proxy: Yes Interim History: Hi, I am watching all of the action in the driveway. A bit more interactive today- initiated a greeting-spending time watching the main entrance activity Continues to deny all sx of illness Continues to take only court ordered medicines Continues to deny assessment of his toe Medication Compliance: Intermittent Side effects from medications: No Attending Groups: No Review of Systems Acute medical concerns: Yes Review of Systems Review of Systems Dialysis Mental Status Exam Mental Status Exam Patient Appearance: Appropriate Patient Orientation: Person and Place Level of Consciousness: Alert Patient Behavior: Guarded Mood Description: Withdrawn Affect Description: Withdrawn Patient Cognition Impaired: No Ability to Follow Directions: Fair Speech Pattern: Spontaneous Speech Memory Description: Episodic Impaired Hallucinations: None (??) Delusions: Paranoid Ideation Perceptual Disturbances: Derealization Thought Process: Distracted and Rumination Thought Content: positive for Obsessional Thoughts and positive for Suicidal Ideation ( no ) Judgement: Poor Diagnostics Vital Signs (24Hr): Vital Signs - 24 hr 09/21/24 08:00 09/21/24 09:46 Temperature 97.3 F Pulse Rate 76 Respiratory Rate 18 16 Blood Pressure 126/64 Pulse Oximetry 96 Labs 09/13/24 10:10 Medications Medications Current Medications Acetaminophen (Acetaminophen 325 Mg Tablet) 650 mg PO Q6H PRN PRN Reason: Headache/Pain, Scale 1-10 Al Hydroxide/Mg Hydroxide (Magnesium Hydrox/Alum Hydrox 30 Ml Oral.Susp) 30 ml PO Q6H PRN PRN Reason: Heartburn/Nausea Apixaban (Apixaban 2.5 Mg Tablet) 2.5 mg PO BID [facility] Last Admin: 09/21/24 22:24 Dose: Not Given Aripiprazole (Aripiprazole 20 Mg Tablet) 20 mg PO DAILY [facility] Last Admin: 09/21/24 08:36 Dose: 20 mg Aripiprazole (Aripiprazole 5 Mg Tablet) 5 mg PO DAILY [facility] Last Admin: 09/21/24 08:36 Dose: 5 mg Benztropine Mesylate (Benztropine Mesylate 1 Mg Tablet) 1 mg PO BEDTIME PRN PRN Reason: EPS Benztropine Mesylate (Benztropine Mesylate 1 Mg Tablet) 2 mg PO DAILY [facility] Last Admin: 09/21/24 08:38 Dose: Not Given Bisacodyl (Bisacodyl 5 Mg Tablet.Dr) 5 mg PO BEDTIME PRN PRN Reason: Constipation Last Admin: 09/19/24 09:54 Dose: 5 mg Divalproex Sodium (Divalproex Sodium Er 500 Mg Tab.Er.24h) 1,000 mg PO BEDTIME [facility] Last Admin: 09/21/24 22:21 Dose: 1,000 mg Haloperidol Lactate (Haloperidol Lactate 5 Mg/Ml Vial) 5 mg IM TID PRN PRN Reason: if refuses Thiothexine Magnesium Hydroxide (Milk Of Magnesia 30 Ml Oral.Susp) 30 ml PO DAILY PRN PRN Reason: Constipation Metoprolol Tartrate (Metoprolol Tartrate 25 Mg Tablet) 25 mg PO DAILY [facility]; Protocol Last Admin: 09/21/24 08:39 Dose: Not Given Multivitamins/Vitamin C (Multivitamin Tablet) 1 tab PO DAILY [facility] Last Admin: 09/21/24 08:42 Dose: Not Given Nicotine (Nicotine 21 Mg Patch.Td24) 21 mg TRANSDERMA DAILY PRN PRN Reason: smoking cessation Nicotine Polacrilex (Nicotine Polacrilex 2 Mg Gum) 4 mg BUCCAL Q2H PRN PRN Reason: Nicotine Cravings Pt Owned Med ( (Thiothixene 5mg Tab)) 1 each PO BID@1600,2100 [facility] Last Admin: 09/21/24 22:03 Dose: 1 each Olanzapine (Olanzapine 10 Mg Vial) 10 mg IM DAILY PRN PRN Reason: if refuses PO Abilify 20mg Last Admin: 09/16/24 16:04 Dose: 10 mg Olanzapine (Olanzapine 10 Mg Vial) 5 mg IM DAILY PRN PRN Reason: give if refuses Depakote Last Admin: 09/19/24 22:03 Dose: 5 mg Torsemide (Torsemide 20 Mg Tablet) 100 mg PO TuThSa [facility]; Protocol Last Admin: 09/21/24 07:11 Dose: Not Given Trazodone HCl (Trazodone Hcl 50 Mg Tablet) 50 mg PO BEDTIME MRX1 PRN PRN Reason: Insomnia Allergies Allergies Allergy/AdvReac Type Severity Reaction Status Date / Time No Known Allergies Allergy Verified 07/24/23 11:18 Assessment & Plan Assessment & Plan (1) Open wound of right great toe: Status: Acute Code(s): S91.101A - Unspecified open wound of right great toe without damage to nail, initial encounter (2) Bipolar disorder: Status: Acute Code(s): F31.9 - Bipolar disorder, unspecified Assessment and Plan: 09/20: Continues with strong treatment resistance, paranoia, delusional content. Refusing meds, refusing treatment of R Great Toe infection-team may use IVABX with dialysis. Thiothixene orders were clarified today regarding mandatory compliance. 09/22: Continue tx Plan Right great toe wound Patient reports bumping his toe prior to admit which caused the toenail injury. Reports that he developed a blister on his Right great toe that has now popped. Toe is red, tender to touch, dry clean dressing in place, Patient is refusing oral antibiotics, Updated Nephrology for plan for IV antibiotics during dialysis ID consult Continue dry dressings Wound nurse consult Reason for continued inpatient stay Substantial Risk for: rapid decompensation and med/psych decompensation Time Spent With Patient Time: Total time managing care of this patient today ____ minutes.
[2024-09-22 08:00] VITALS: BP 146/68; PULSE 68; RESP 16; TEMP 36.8; O2SAT 97
[2024-09-22] MEDS: [UNRECOGNIZED DRUG - OTHER] 1 EACH PO ×2 (16:03→23:05)
[2024-09-22 20:00] VITALS: BP 134/66; PULSE 67; TEMP 37.2; O2SAT 97
[2024-09-22] MEDS: OLANZapine 10 MG VIAL 5 MG IM (23:23)
[2024-09-23 07:59] VITALS: BP 140/66; PULSE 71; TEMP 36.7; O2SAT 96
--- NOTE | 2024-09-23 09:36 | PM.PNNEP ---
Subjective Subjective Date of Service: 09/23/24 Interval history: Hi, I am watching all of the action in the driveway. A bit more interactive today- initiated a greeting-spending time watching the main entrance activity Continues to deny all sx of illness Continues to take only court ordered medicines Continues to deny assessment of his toe Physical Exam Vital Signs: Vital Signs: Last Vital Signs Temp 98.0 F 09/23/24 07:59 Pulse 71 09/23/24 07:59 Resp 16 09/22/24 08:00 BP 140/66 H 09/23/24 07:59 Pulse Ox 96 09/23/24 07:59 O2 Del Method Room Air 09/23/24 07:59 svs: s1s2 Rs; cta Abd; soft Objective Data Labs 09/23/24 12:07 Microbiology Microbiology Results: Microbiology 09/20/24 13:33 Blood - Venous Blood Culture - Preliminary No growth after 48 hours. 09/20/24 13:33 Blood - Venous Blood Culture - Preliminary No growth after 48 hours. Procedures Date of Service Date of Service: 09/23/24 Assessment & Plan Assessment and plan (1) ESRD needing dialysis: Status: Acute Plan Marco Holcomb is a 69 year old male with past medical history of ESRD on HD, bipolar disorder, Afib on Eliquis, s/p TAVR, hypertension, hyperlipidemia who presented to [facility] with erratic behavior over the past few weeks. Seen by Psych for decompensated bipolar illness in the inpt psych unit. Nephrology consulted for ESRD. 1. ESRD Dialyzes MWF at [facility] via [facility] 2. 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
[2024-09-23 12:41] LABS: Anion Gap 18 (12-20); Blood Urea Nitrogen 47 mg/dL (9-16); Calcium 9.6 mg/dL (8.4-10.2); Carbon Dioxide 25 mmol/L (22-29); Chloride 98 mmol/L (96-108); Estimated Glomerular Filt Rate 4; Potassium 5.5 mmol/L (3.3-5.1); Sodium 135 mmol/L (135-145)
[2024-09-23 14:58] VITALS: BP 162/74; PULSE 67
--- NOTE | 2024-09-23 15:49 | P.PNPSI_ITS ---
Subjective Subjective Date of Service: 09/23/24 Reason For Visit: Unspecified Bipolar D/O Depression Anxiety Healthcare Proxy: Yes Guardianship: Yes Medical Problems Affecting Mental Status: No Interim History: Pt continues to struggle with medicine compliance. He is accepting of attending dialysis and is able to attend without conflict. He denies all sx when assessed and continues dismissive. Diagnostics indicate values to be increasing, BUN, Creatinine, K. 5.5 Dialysis team reports they are monitoring these values and will interviene. Medication Compliance: Intermittent Side effects from medications: No Attending Groups: No Review of Systems Acute medical concerns: Yes Review of Systems Review of Systems ESRD with dialysis Mental Status Exam Mental Status Exam Patient Appearance: Appropriate Patient Orientation: Person and Place Level of Consciousness: Alert Patient Behavior: Guarded Mood Description: Withdrawn Affect Description: Withdrawn Patient Cognition Impaired: No Ability to Follow Directions: Fair Speech Pattern: Spontaneous Speech Memory Description: Episodic Impaired Hallucinations: None (??) Delusions: Paranoid Ideation Perceptual Disturbances: Derealization Thought Process: Distracted and Rumination Thought Content: positive for Suicidal Ideation ( no ) Judgement: Poor Diagnostics Vital Signs (24Hr): Vital Signs - 24 hr 09/22/24 20:00 09/23/24 07:59 09/23/24 14:58 Temperature 98.9 F 98.0 F Pulse Rate 67 71 67 Blood Pressure 134/66 140/66 H 162/74 H Pulse Oximetry 97 96 Oxygen Delivery Method Room Air Room Air Labs 09/23/24 12:07 Labs: Laboratory Results - last 48 hr 09/23/24 12:07 Sodium 135 Potassium 5.5 H D Chloride 98 Carbon Dioxide 25 Anion Gap 18 BUN 47 H Creatinine 11.40 H* Estim Creat Clear Calc TNP Estimated GFR 4 Random Glucose 80 Calcium 9.6 Medications Medications Current Medications Acetaminophen (Acetaminophen 325 Mg Tablet) 650 mg PO Q6H PRN PRN Reason: Headache/Pain, Scale 1-10 Al Hydroxide/Mg Hydroxide (Magnesium Hydrox/Alum Hydrox 30 Ml Oral.Susp) 30 ml PO Q6H PRN PRN Reason: Heartburn/Nausea Apixaban (Apixaban 2.5 Mg Tablet) 2.5 mg PO BID [facility] Last Admin: 09/23/24 08:58 Dose: Not Given Aripiprazole (Aripiprazole 20 Mg Tablet) 20 mg PO DAILY [facility] Last Admin: 09/23/24 08:56 Dose: 20 mg Aripiprazole (Aripiprazole 5 Mg Tablet) 5 mg PO DAILY [facility] Last Admin: 09/23/24 08:56 Dose: 5 mg Benztropine Mesylate (Benztropine Mesylate 1 Mg Tablet) 1 mg PO BEDTIME PRN PRN Reason: EPS Benztropine Mesylate (Benztropine Mesylate 1 Mg Tablet) 2 mg PO DAILY [facility] Last Admin: 09/23/24 08:58 Dose: Not Given Bisacodyl (Bisacodyl 5 Mg Tablet.Dr) 5 mg PO BEDTIME PRN PRN Reason: Constipation Last Admin: 09/19/24 09:54 Dose: 5 mg Divalproex Sodium (Divalproex Sodium Er 500 Mg Tab.Er.24h) 1,000 mg PO BEDTIME [facility] Last Admin: 09/22/24 23:23 Dose: Not Given Haloperidol Lactate (Haloperidol Lactate 5 Mg/Ml Vial) 5 mg IM TID PRN PRN Reason: if refuses Thiothexine Magnesium Hydroxide (Milk Of Magnesia 30 Ml Oral.Susp) 30 ml PO DAILY PRN PRN Reason: Constipation Metoprolol Tartrate (Metoprolol Tartrate 25 Mg Tablet) 25 mg PO DAILY [facility]; Protocol Last Admin: 09/23/24 08:58 Dose: Not Given Multivitamins/Vitamin C (Multivitamin Tablet) 1 tab PO DAILY [facility] Last Admin: 09/23/24 08:58 Dose: Not Given Nicotine (Nicotine 21 Mg Patch.Td24) 21 mg TRANSDERMA DAILY PRN PRN Reason: smoking cessation Nicotine Polacrilex (Nicotine Polacrilex 2 Mg Gum) 4 mg BUCCAL Q2H PRN PRN Reason: Nicotine Cravings Pt Owned Med ( (Thiothixene 5mg Tab)) 1 each PO BID@1600,2100 [facility] Last Admin: 09/22/24 23:05 Dose: 1 each Olanzapine (Olanzapine 10 Mg Vial) 10 mg IM DAILY PRN PRN Reason: if refuses PO Abilify 20mg Last Admin: 09/16/24 16:04 Dose: 10 mg Olanzapine (Olanzapine 10 Mg Vial) 5 mg IM DAILY PRN PRN Reason: give if refuses Depakote Last Admin: 09/22/24 23:23 Dose: 5 mg Torsemide (Torsemide 20 Mg Tablet) 100 mg PO TuThSa [facility]; Protocol Last Admin: 09/21/24 07:11 Dose: Not Given Trazodone HCl (Trazodone Hcl 50 Mg Tablet) 50 mg PO BEDTIME MRX1 PRN PRN Reason: Insomnia Allergies Allergies Allergy/AdvReac Type Severity Reaction Status Date / Time No Known Allergies Allergy Verified 07/24/23 11:18 Assessment & Plan Assessment & Plan (1) ESRD needing dialysis: Status: Acute Code(s): N18.6 - End stage renal disease; Z99.2 - Dependence on renal dialysis (2) Bipolar disorder: Status: Acute Code(s): F31.9 - Bipolar disorder, unspecified Plan Marco Holcomb is a 69 year old male with past medical history of ESRD on HD, bipolar disorder, Afib on Eliquis, s/p TAVR, hypertension, hyperlipidemia who presented to [facility] with erratic behavior over the past few weeks. Seen by Psych for decompensated bipolar illness in the inpt psych unit. Nephrology consulted for ESRD. 1. ESRD Dialyzes MWF at [facility] via LUE [facility] 2. 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 Reason for continued inpatient stay Substantial Risk for: med/psych decompensation Time Spent With Patient Time: Total time managing care of this patient today ____ minutes.
[2024-09-23] MEDS: [UNRECOGNIZED DRUG - OTHER] 1 EACH PO ×2 (16:12→22:07)
[2024-09-23 20:00] VITALS: BP 130/60; PULSE 73; TEMP 36.5; O2SAT 97
[2024-09-24 07:56] VITALS: BP 173/81; PULSE 80; TEMP 36.3; O2SAT 96
[2024-09-24 09:35] VITALS: BP 130/74; PULSE 78
--- NOTE | 2024-09-24 11:03 | P.PNPSI_ITS ---
Subjective Subjective Date of Service: 09/24/24 Reason For Visit: Unspecified Bipolar D/O Depression Anxiety Subjective Notes: Conditional Voluntary Healthcare Proxy: Yes Guardianship: No Medical Problems Affecting Mental Status: Yes Interim History: Pt is minimally engaged today. Head down, sitting by the phone. Answers questions, does not initiate dialogue, Denies any and all sx. Asked about ankle edema, what edema, that is how they look all the time Strong ideas about refusing treatment which are difficult to challenge unless one talks to him about a court order. In trending diagnostics, values are increasing-this most likely due to pt's agreement to only do 2.5 hours per day of dialysis vs the recommended 4. Message left with dialysis team to discuss if we can return him to 4 hours per day. Medication Compliance: Intermittent Side effects from medications: No Attending Groups: No Review of Systems Review of Systems Dialysis Mental Status Exam Mental Status Exam Patient Appearance: Appropriate Patient Orientation: Person and Place Level of Consciousness: Alert Patient Behavior: Guarded Mood Description: Withdrawn Affect Description: Withdrawn Patient Cognition Impaired: No Ability to Follow Directions: Fair Speech Pattern: Spontaneous Speech Memory Description: Episodic Impaired Hallucinations: None (??) Delusions: Paranoid Ideation Perceptual Disturbances: Derealization Thought Process: Distracted and Rumination Thought Content: positive for Suicidal Ideation ( no ) Judgement: Poor Diagnostics Vital Signs (24Hr): Vital Signs - 24 hr 09/23/24 14:58 09/23/24 20:00 09/24/24 07:56 Temperature 97.7 F 97.4 F Pulse Rate 67 73 80 Blood Pressure 162/74 H 130/60 173/81 H Pulse Oximetry 97 96 Oxygen Delivery Method Room Air Room Air 09/24/24 09:35 Temperature Pulse Rate 78 Blood Pressure 130/74 Pulse Oximetry Oxygen Delivery Method Labs 09/23/24 12:07 Labs: Laboratory Results - last 48 hr 09/23/24 12:07 Sodium 135 Potassium 5.5 H D Chloride 98 Carbon Dioxide 25 Anion Gap 18 BUN 47 H Creatinine 11.40 H* Estim Creat Clear Calc TNP Estimated GFR 4 Random Glucose 80 Calcium 9.6 Medications Medications Current Medications Acetaminophen (Acetaminophen 325 Mg Tablet) 650 mg PO Q6H PRN PRN Reason: Headache/Pain, Scale 1-10 Al Hydroxide/Mg Hydroxide (Magnesium Hydrox/Alum Hydrox 30 Ml Oral.Susp) 30 ml PO Q6H PRN PRN Reason: Heartburn/Nausea Apixaban (Apixaban 2.5 Mg Tablet) 2.5 mg PO BID [facility] Last Admin: 09/24/24 09:36 Dose: Not Given Aripiprazole (Aripiprazole 20 Mg Tablet) 20 mg PO DAILY [facility] Last Admin: 09/24/24 09:34 Dose: 20 mg Aripiprazole (Aripiprazole 5 Mg Tablet) 5 mg PO DAILY [facility] Last Admin: 09/24/24 09:35 Dose: 5 mg Benztropine Mesylate (Benztropine Mesylate 1 Mg Tablet) 1 mg PO BEDTIME PRN PRN Reason: EPS Benztropine Mesylate (Benztropine Mesylate 1 Mg Tablet) 2 mg PO DAILY [facility] Last Admin: 09/24/24 09:36 Dose: Not Given Bisacodyl (Bisacodyl 5 Mg Tablet.Dr) 5 mg PO BEDTIME PRN PRN Reason: Constipation Last Admin: 09/19/24 09:54 Dose: 5 mg Divalproex Sodium (Divalproex Sodium Er 500 Mg Tab.Er.24h) 1,000 mg PO BEDTIME [facility] Last Admin: 09/23/24 22:12 Dose: 1,000 mg Haloperidol Lactate (Haloperidol Lactate 5 Mg/Ml Vial) 5 mg IM TID PRN PRN Reason: if refuses Thiothexine Magnesium Hydroxide (Milk Of Magnesia 30 Ml Oral.Susp) 30 ml PO DAILY PRN PRN Reason: Constipation Metoprolol Tartrate (Metoprolol Tartrate 25 Mg Tablet) 25 mg PO DAILY [facility]; Protocol Last Admin: 09/24/24 09:35 Dose: Not Given Multivitamins/Vitamin C (Multivitamin Tablet) 1 tab PO DAILY [facility] Last Admin: 09/24/24 09:35 Dose: Not Given Nicotine (Nicotine 21 Mg Patch.Td24) 21 mg TRANSDERMA DAILY PRN PRN Reason: smoking cessation Nicotine Polacrilex (Nicotine Polacrilex 2 Mg Gum) 4 mg BUCCAL Q2H PRN PRN Reason: Nicotine Cravings Pt Owned Med ( (Thiothixene 5mg Tab)) 1 each PO BID@1600,2100 [facility] Last Admin: 09/23/24 22:07 Dose: 1 each Olanzapine (Olanzapine 10 Mg Vial) 10 mg IM DAILY PRN PRN Reason: if refuses PO Abilify 20mg Last Admin: 09/16/24 16:04 Dose: 10 mg Olanzapine (Olanzapine 10 Mg Vial) 5 mg IM DAILY PRN PRN Reason: give if refuses Depakote Last Admin: 09/22/24 23:23 Dose: 5 mg Torsemide (Torsemide 20 Mg Tablet) 100 mg PO [facility]; Protocol Last Admin: 09/24/24 06:11 Dose: Not Given Trazodone HCl (Trazodone Hcl 50 Mg Tablet) 50 mg PO BEDTIME MRX1 PRN PRN Reason: Insomnia Allergies Allergies Allergy/AdvReac Type Severity Reaction Status Date / Time No Known Allergies Allergy Verified 07/24/23 11:18 Assessment & Plan Assessment & Plan (1) ESRD needing dialysis: Status: Acute Code(s): N18.6 - End stage renal disease; Z99.2 - Dependence on renal dialysis (2) Bipolar disorder: Status: Acute Code(s): F31.9 - Bipolar disorder, unspecified Assessment and Plan: 09/24: Continue to work with dialysis team, family, pt on improving current health status. Plan Marco Holcomb is a 69 year old male with past medical history of ESRD on HD, bipolar disorder, Afib on Eliquis, s/p TAVR, hypertension, hyperlipidemia who presented to [facility] with erratic behavior over the past few weeks. Seen by Psych for decompensated bipolar illness in the inpt psych unit. Nephrology consulted for ESRD. 1. ESRD Dialyzes MWF at [facility] via LUE [facility] 2. 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
--- NOTE | 2024-09-24 15:54 | HO.WOUND ---
Wound consult: Attempted 69yr old male admitted to [facility] on 09/05/24. Wound consult placed for Right great toe. See H&P and notes for details. Patient continues to refuse my assessment. Unfortunately only assessed from photo last week and topical recommendations made based on photo review. Direct care nurse notified of refusal and advised to re-consult should patient become agreeable to assessment.
[2024-09-24] MEDS: [UNRECOGNIZED DRUG - OTHER] 1 EACH PO ×2 (16:02→20:15)
[2024-09-24 20:00] VITALS: BP 138/77; PULSE 75; RESP 18; TEMP 36.4; O2SAT 98
[2024-09-24] MEDS: OLANZapine 10 MG VIAL 5 MG IM (22:31)
[2024-09-25 08:00] VITALS: BP 137/65; PULSE 75; RESP 16; TEMP 36.2; O2SAT 98
--- NOTE | 2024-09-25 10:20 | P.PNPSI_ITS ---
Subjective Subjective Date of Service: 09/25/24 Reason For Visit: Unspecified Bipolar D/O Depression Anxiety Subjective Notes: Conditional Voluntary Healthcare Proxy: Yes Guardianship: No Medical Problems Affecting Mental Status: Yes Interim History: Pt's care reviewed with dialysis team and with his and HCP. Dialysis team has informed pt today that his demand of dialysis for only 2.5 hrs vs 4 hrs recommended is not effective and he will need to increase to at least 3 hours per session. We will draw weekly CBC, BMP on Mondays. Discussed with increasing Navane to 5 mg tid as pt's insight into the severity of illness and the risks of refusal of treatment are not pliable at this point. Pt's reviewed how difficult the past year has been for him-August 2023 [address] to and from [place] and was significantly disoriented. Abilify change on his return was briefly helpful but without holding. Valve replacement in January with several blood transfusions was very hard on both his physical and mental health. At that time he bargained to have dialysis twice per week and Hgb was very low- so iron was added to dialysis. RSV/Pneumonia in Mar 2024 precipitated a 39 day admit with [facility], refusing meds and 2 weeks in rehab. Pt was able to come home but was told dialysis would need to be at least 3 times per week. Pt stopped meds in August, telling he thought they were causing an issue in his groin along with constipation. Dialysis team noted decline at the end of August as well. Currently, pt's conversations are circular, he is obsessed with his body and physical issues, has no insight. Psychiatric presentation she reports is very different this time-he is accusing her of being obsessed with money and not contributing at all to the marriage monitarily. As well, he believes things to be missing from the home, especially tools. Discussed with possibly increasing Navane with the goal of thought clarity, improved compliance with medical treatment and increased stabilization. She agrees we should try. Will send Rx to [facility]. will deliver the prescription to [facility] and we will begin. Medication Compliance: Intermittent Side effects from medications: No Attending Groups: No Review of Systems Acute medical concerns: Yes Medical Review of Systems: changed Review of Systems Review of Systems Dialysis Mental Status Exam Mental Status Exam Patient Appearance: Appropriate Patient Orientation: Person and Place Level of Consciousness: Alert Patient Behavior: Guarded Mood Description: Withdrawn Affect Description: Withdrawn Patient Cognition Impaired: No Ability to Follow Directions: Fair Speech Pattern: Spontaneous Speech Memory Description: Episodic Impaired Hallucinations: None (??) Delusions: Paranoid Ideation Perceptual Disturbances: Derealization Thought Process: Distracted and Rumination Thought Content: positive for Suicidal Ideation ( no ) Judgement: Poor Diagnostics Vital Signs (24Hr): Vital Signs - 24 hr 09/24/24 20:00 09/25/24 08:00 Temperature 97.6 F 97.1 F Pulse Rate 75 75 Respiratory Rate 18 16 Blood Pressure 138/77 137/65 Pulse Oximetry 98 98 Oxygen Delivery Method Room Air Labs 09/23/24 12:07 Labs: Laboratory Results - last 48 hr 09/23/24 12:07 Sodium 135 Potassium 5.5 H D Chloride 98 Carbon Dioxide 25 Anion Gap 18 BUN 47 H Creatinine 11.40 H* Estim Creat Clear Calc TNP Estimated GFR 4 Random Glucose 80 Calcium 9.6 Medications Medications Current Medications Acetaminophen (Acetaminophen 325 Mg Tablet) 650 mg PO Q6H PRN PRN Reason: Headache/Pain, Scale 1-10 Al Hydroxide/Mg Hydroxide (Magnesium Hydrox/Alum Hydrox 30 Ml Oral.Susp) 30 ml PO Q6H PRN PRN Reason: Heartburn/Nausea Apixaban (Apixaban 2.5 Mg Tablet) 2.5 mg PO BID [facility] Last Admin: 09/24/24 20:16 Dose: Not Given Aripiprazole (Aripiprazole 20 Mg Tablet) 20 mg PO DAILY [facility] Last Admin: 09/24/24 09:34 Dose: 20 mg Aripiprazole (Aripiprazole 5 Mg Tablet) 5 mg PO DAILY [facility] Last Admin: 09/24/24 09:35 Dose: 5 mg Benztropine Mesylate (Benztropine Mesylate 1 Mg Tablet) 1 mg PO BEDTIME PRN PRN Reason: EPS Benztropine Mesylate (Benztropine Mesylate 1 Mg Tablet) 2 mg PO DAILY [facility] Last Admin: 09/24/24 09:36 Dose: Not Given Bisacodyl (Bisacodyl 5 Mg Tablet.Dr) 5 mg PO BEDTIME PRN PRN Reason: Constipation Last Admin: 09/19/24 09:54 Dose: 5 mg Divalproex Sodium (Divalproex Sodium Er 500 Mg Tab.Er.24h) 1,000 mg PO BEDTIME [facility] Last Admin: 09/24/24 22:34 Dose: Not Given Haloperidol Lactate (Haloperidol Lactate 5 Mg/Ml Vial) 5 mg IM TID PRN PRN Reason: if refuses Thiothexine Magnesium Hydroxide (Milk Of Magnesia 30 Ml Oral.Susp) 30 ml PO DAILY PRN PRN Reason: Constipation Metoprolol Tartrate (Metoprolol Tartrate 25 Mg Tablet) 25 mg PO DAILY [facility]; Protocol Last Admin: 09/24/24 09:35 Dose: Not Given Multivitamins/Vitamin C (Multivitamin Tablet) 1 tab PO DAILY [facility] Last Admin: 09/24/24 09:35 Dose: Not Given Nicotine (Nicotine 21 Mg Patch.Td24) 21 mg TRANSDERMA DAILY PRN PRN Reason: smoking cessation Nicotine Polacrilex (Nicotine Polacrilex 2 Mg Gum) 4 mg BUCCAL Q2H PRN PRN Reason: Nicotine Cravings Pt Owned Med ( (Thiothixene 5mg Tab)) 1 each PO BID@1600,2100 [facility] Last Admin: 09/24/24 20:15 Dose: 1 each Olanzapine (Olanzapine 10 Mg Vial) 10 mg IM DAILY PRN PRN Reason: if refuses PO Abilify 20mg Last Admin: 09/16/24 16:04 Dose: 10 mg Olanzapine (Olanzapine 10 Mg Vial) 5 mg IM DAILY PRN PRN Reason: give if refuses Depakote Last Admin: 09/24/24 22:31 Dose: 5 mg Torsemide (Torsemide 20 Mg Tablet) 100 mg PO TuThSa [facility]; Protocol Last Admin: 09/24/24 06:11 Dose: Not Given Trazodone HCl (Trazodone Hcl 50 Mg Tablet) 50 mg PO BEDTIME MRX1 PRN PRN Reason: Insomnia Allergies Allergies Allergy/AdvReac Type Severity Reaction Status Date / Time No Known Allergies Allergy Verified 07/24/23 11:18 Assessment & Plan Assessment & Plan (1) ESRD needing dialysis: Status: Acute Code(s): N18.6 - End stage renal disease; Z99.2 - Dependence on renal dialysis (2) Bipolar disorder: Status: Acute Code(s): F31.9 - Bipolar disorder, unspecified Assessment and Plan: 09/25: Discussed care with dialysis team and with pt's and HCP. Renal values are increasing due to pt limiting dialysis time. reports pt's thought process to be circular, without insight and with paranoia and delusional content. She will allow psych med changes to attempt to assist pt in symptom reduction. Plan: Increase Navane to 5 mg tid. Ordered from [facility]. will pick this up and deliver. Plan Marco Holcomb is a 69 year old male with past medical history of ESRD on HD, bipolar disorder, Afib on Eliquis, s/p TAVR, hypertension, hyperlipidemia who presented to [facility] with erratic behavior over the past few weeks. Seen by Psych for decompensated bipolar illness in the inpt psych unit. Nephrology consulted for ESRD. 1. ESRD Dialyzes MWF at [facility] via L[facility] 2. 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 Reason for continued inpatient stay Substantial Risk for: rapid decompensation and med/psych decompensation Time Spent With Patient Time: Total time managing care of this patient today ____ minutes.
[2024-09-25] MEDS: [UNRECOGNIZED DRUG - OTHER] 1 EACH PO (16:20)
[2024-09-25 20:00] VITALS: BP 117/61; PULSE 80; TEMP 36.4; O2SAT 96
--- NOTE | 2024-09-25 21:50 | P.PNNP_ITS ---
Subjective Subjective Date of Service: 09/25/24 Interval history: pt seen Physical Exam 2 Vital Signs: Vital Signs: Last Vital Signs Temp 97.5 F 09/25/24 20:00 Pulse 80 09/25/24 20:00 Resp 16 09/25/24 08:00 BP 117/61 09/25/24 20:00 Pulse Ox 96 09/25/24 20:00 O2 Del Method Room Air 09/25/24 20:00 cvs: s1s2 RS; cta ABd; soft Objective Data Labs 09/23/24 12:07 Microbiology Microbiology Results: Microbiology 09/20/24 13:33 Blood - Venous Blood Culture - Final No growth after 5 days. 09/20/24 13:33 Blood - Venous Blood Culture - Final No growth after 5 days. Procedures Date of Service Date of Service: 09/25/24 Assessment & Plan Assessment and plan (1) ESRD needing dialysis: Status: Acute Plan Marco Holcomb is a 69 year old male with past medical history of ESRD on HD, bipolar disorder, Afib on Eliquis, s/p TAVR, hypertension, hyperlipidemia who presented to [facility] with erratic behavior over the past few weeks. Seen by Psych for decompensated bipolar illness in the inpt psych unit. Nephrology consulted for ESRD. 1. ESRD Dialyzes MWF at [facility] via L[facility] 2. 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
[2024-09-25] MEDS: OLANZapine 10 MG VIAL IM (22:10)
--- NOTE | 2024-09-26 09:54 | HO.PSYCHPN ---
Subjective Subjective Date of Service: 09/26/24 Reason For Visit: Unspecified Bipolar D/O Depression Anxiety Subjective Notes: Conditional Voluntary Healthcare Proxy: Yes Medical Problems Affecting Mental Status: Yes Interim History: Patient notes that he feels ?good? today. He notes that he tosses and turns during sleep. According to nursing, he slept almost throughout the night last night. He has been refusing some of his medications, including Eliquis. He currently denies pain. He denies anxiety and depression. He denies SI/HI/AH/VH. Medication Compliance: Intermittent Side effects from medications: No Review of Systems Acute medical concerns: No Mental Status Exam Mental Status Exam Narrative: Appearance: Casually dressed, adequate hygiene Behavior: Guarded. Calm and cooperative throughout the interview. Eye contact is minimal, and there are no signs of psychomotor agitation or retardation Speech: Normal volume and prosody Thought process: Noncompliant to treatment Thought content: Noncompliant to treatment Mood: Good Affect: Flat SI:denies HI:denies VH/AH:none Delusions: None Insight/judgment: Impaired insight and judgment Memory/cog: Alert, oriented x 4. grossly intact to conversational testing Diagnostics Vital Signs (24Hr): Vital Signs - 24 hr 09/25/24 20:00 Temperature 97.5 F Pulse Rate 80 Blood Pressure 117/61 Pulse Oximetry 96 Oxygen Delivery Method Room Air Labs 09/23/24 12:07 Medications Medications Current Medications Acetaminophen (Acetaminophen 325 Mg Tablet) 650 mg PO Q6H PRN PRN Reason: Headache/Pain, Scale 1-10 Al Hydroxide/Mg Hydroxide (Magnesium Hydrox/Alum Hydrox 30 Ml Oral.Susp) 30 ml PO Q6H PRN PRN Reason: Heartburn/Nausea Apixaban (Apixaban 2.5 Mg Tablet) 2.5 mg PO BID ON [facility] Last Admin: 09/26/24 09:19 Dose: Not Given Aripiprazole (Aripiprazole 20 Mg Tablet) 20 mg PO DAILY ON [facility] Last Admin: 09/26/24 09:09 Dose: 20 mg Aripiprazole (Aripiprazole 5 Mg Tablet) 5 mg PO DAILY [facility] Last Admin: 09/26/24 09:08 Dose: 5 mg Benztropine Mesylate (Benztropine Mesylate 1 Mg Tablet) 1 mg PO BEDTIME PRN PRN Reason: EPS Benztropine Mesylate (Benztropine Mesylate 1 Mg Tablet) 2 mg PO DAILY [facility] Last Admin: 09/26/24 09:19 Dose: Not Given Bisacodyl (Bisacodyl 5 Mg Tablet.Dr) 5 mg PO BEDTIME PRN PRN Reason: Constipation Last Admin: 09/19/24 09:54 Dose: 5 mg Divalproex Sodium (Divalproex Sodium Er 500 Mg Tab.Er.24h) 1,000 mg PO BEDTIME ON [facility] Last Admin: 09/25/24 22:15 Dose: Not Given Haloperidol Lactate (Haloperidol Lactate 5 Mg/Ml Vial) 5 mg IM TID PRN PRN Reason: if refuses Thiothexine Magnesium Hydroxide (Milk Of Magnesia 30 Ml Oral.Susp) 30 ml PO DAILY PRN PRN Reason: Constipation Metoprolol Tartrate (Metoprolol Tartrate 25 Mg Tablet) 25 mg PO DAILY [facility]; Protocol Last Admin: 09/26/24 09:19 Dose: Not Given Multivitamins/Vitamin C (Multivitamin Tablet) 1 tab PO DAILY [facility] Last Admin: 09/26/24 09:20 Dose: Not Given Nicotine (Nicotine 21 Mg Patch.Td24) 21 mg TRANSDERMA DAILY PRN PRN Reason: smoking cessation Nicotine Polacrilex (Nicotine Polacrilex 2 Mg Gum) 4 mg BUCCAL Q2H PRN PRN Reason: Nicotine Cravings Patient Own Medication Thiothixene 5mg Tab 1 each PO TID@1200,1600,2100 ON [facility] Last Admin: 09/25/24 22:16 Dose: Not Given Olanzapine (Olanzapine 10 Mg Vial) 10 mg IM DAILY PRN PRN Reason: if refuses PO Abilify 20mg Last Admin: 09/25/24 22:10 Dose: 10 mg Olanzapine (Olanzapine 10 Mg Vial) 5 mg IM DAILY PRN PRN Reason: give if refuses Depakote Last Admin: 09/24/24 22:31 Dose: 5 mg Torsemide (Torsemide 20 Mg Tablet) 100 mg PO TuThSa ON [facility]; Protocol Last Admin: 09/26/24 07:03 Dose: Not Given Trazodone HCl (Trazodone Hcl 50 Mg Tablet) 50 mg PO BEDTIME MRX1 PRN PRN Reason: Insomnia Allergies Allergies Allergy/AdvReac Type Severity Reaction Status Date / Time No Known Allergies Allergy Verified 07/24/23 11:18 Assessment & Plan Assessment & Plan (1) ESRD needing dialysis: Status: Acute Code(s): N18.6 - End stage renal disease; Z99.2 - Dependence on renal dialysis Plan Marco Holcomb is a 69 year old male with past medical history of ESRD on HD, bipolar disorder, Afib on Eliquis, s/p TAVR, hypertension, hyperlipidemia who presented to [facility] with erratic behavior over the past few weeks. Seen by Psych for decompensated bipolar illness in the inpt psych unit. Nephrology consulted for ESRD. 1. ESRD Dialyzes MWF at [facility] via LUE AVF 2. 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 today. He notes that he tosses and turns during sleep. According to nursing, he slept almost throughout the night last night. He has been refusing some of his medications, including Eliquis. He currently denies pain. He denies anxiety and depression. He denies SI/HI/AH/VH. Instructed on treatment regimen and importance of taking prescribed medications. Continue current treatment regimen. Patient educated on: therapeutic strategies Reason for continued inpatient stay Substantial Risk for: rapid decompensation Time Spent With Patient Time: Total time managing care of this patient today ____ minutes.
[2024-09-26] MEDS: THIOTHIXENE 5 MG 1 EACH PO ×3 (12:55→22:53)
[2024-09-26 20:00] VITALS: BP 120/75; PULSE 83; TEMP 36.7; O2SAT 98
[2024-09-26] MEDS: OLANZapine 10 MG VIAL 5 MG IM (23:34)
[2024-09-27 08:00] VITALS: BP 117/64; PULSE 69; TEMP 36.3; O2SAT 98
--- NOTE | 2024-09-27 10:56 | HO.PSYCHPN ---
Subjective Subjective Date of Service: 09/27/24 Reason For Visit: Unspecified Bipolar D/O Depression Anxiety Subjective Notes: Conditional Voluntary Healthcare Proxy: Yes Guardianship: No Medical Problems Affecting Mental Status: Yes Interim History: Attended dialysis, minimal medication compliance. Team reports on 09/26 they observed some confusion, laughing. Not in character for pt. Will continue to observe. Labs ordered for 09/30. Refusing EKG this evening. Medication Compliance: Intermittent Side effects from medications: No Attending Groups: No Review of Systems Acute medical concerns: Yes Medical Review of Systems: unchanged Review of Systems Review of Systems Denies Mental Status Exam Mental Status Exam Patient Appearance: Appropriate Patient Orientation: Person and Place Level of Consciousness: Alert Patient Behavior: Guarded Mood Description: Withdrawn Affect Description: Withdrawn Patient Cognition Impaired: No Ability to Follow Directions: Fair Speech Pattern: Spontaneous Speech Memory Description: Episodic Impaired Hallucinations: None (??) Delusions: Paranoid Ideation Perceptual Disturbances: Derealization Thought Process: Distracted and Rumination Thought Content: positive for Suicidal Ideation ( no ) Judgement: Poor Diagnostics Vital Signs (24Hr): Vital Signs - 24 hr 09/26/24 20:00 09/27/24 08:00 Temperature 98.0 F 97.4 F Pulse Rate 83 69 Blood Pressure 120/75 117/64 Pulse Oximetry 98 98 Oxygen Delivery Method Room Air Room Air Labs 09/23/24 12:07 Medications Medications Current Medications Acetaminophen (Acetaminophen 325 Mg Tablet) 650 mg PO Q6H PRN PRN Reason: Headache/Pain, Scale 1-10 Al Hydroxide/Mg Hydroxide (Magnesium Hydrox/Alum Hydrox 30 Ml Oral.Susp) 30 ml PO Q6H PRN PRN Reason: Heartburn/Nausea Apixaban (Apixaban 2.5 Mg Tablet) 2.5 mg PO BID [facility] Last Admin: 09/27/24 09:13 Dose: Not Given Aripiprazole (Aripiprazole 20 Mg Tablet) 20 mg PO DAILY [facility] Last Admin: 09/27/24 09:08 Dose: 20 mg Aripiprazole (Aripiprazole 5 Mg Tablet) 5 mg PO DAILY [facility] Last Admin: 09/27/24 09:08 Dose: 5 mg Benztropine Mesylate (Benztropine Mesylate 1 Mg Tablet) 1 mg PO BEDTIME PRN PRN Reason: EPS Benztropine Mesylate (Benztropine Mesylate 1 Mg Tablet) 2 mg PO DAILY [facility] Last Admin: 09/27/24 09:13 Dose: Not Given Bisacodyl (Bisacodyl 5 Mg Tablet.Dr) 5 mg PO BEDTIME PRN PRN Reason: Constipation Last Admin: 09/19/24 09:54 Dose: 5 mg Divalproex Sodium (Divalproex Sodium Er 500 Mg Tab.Er.24h) 1,000 mg PO BEDTIME [facility] Last Admin: 09/26/24 23:38 Dose: Not Given Haloperidol Lactate (Haloperidol Lactate 5 Mg/Ml Vial) 5 mg IM TID PRN PRN Reason: if refuses Thiothexine Magnesium Hydroxide (Milk Of Magnesia 30 Ml Oral.Susp) 30 ml PO DAILY PRN PRN Reason: Constipation Metoprolol Tartrate (Metoprolol Tartrate 25 Mg Tablet) 25 mg PO DAILY [facility]; Protocol Last Admin: 09/27/24 09:13 Dose: Not Given Multivitamins/Vitamin C (Multivitamin Tablet) 1 tab PO DAILY [facility] Last Admin: 09/27/24 09:13 Dose: Not Given Nicotine (Nicotine 21 Mg Patch.Td24) 21 mg TRANSDERMA DAILY PRN PRN Reason: smoking cessation Nicotine Polacrilex (Nicotine Polacrilex 2 Mg Gum) 4 mg BUCCAL Q2H PRN PRN Reason: Nicotine Cravings Patient Own Medication Thiothixene 5mg Tab 1 each PO TID@1200,1600,2100 [facility] Last Admin: 09/26/24 22:53 Dose: 1 each Olanzapine (Olanzapine 10 Mg Vial) 10 mg IM DAILY PRN PRN Reason: if refuses PO Abilify 20mg Last Admin: 09/25/24 22:10 Dose: 10 mg Olanzapine (Olanzapine 10 Mg Vial) 5 mg IM DAILY PRN PRN Reason: give if refuses Depakote Last Admin: 09/26/24 23:34 Dose: 5 mg Torsemide (Torsemide 20 Mg Tablet) 100 mg PO TuThSa [facility]; Protocol Last Admin: 09/26/24 07:03 Dose: Not Given Trazodone HCl (Trazodone Hcl 50 Mg Tablet) 50 mg PO BEDTIME MRX1 PRN PRN Reason: Insomnia Allergies Allergies Allergy/AdvReac Type Severity Reaction Status Date / Time No Known Allergies Allergy Verified 07/24/23 11:18 Assessment & Plan Assessment & Plan (1) ESRD needing dialysis: Status: Acute Code(s): N18.6 - End stage renal disease; Z99.2 - Dependence on renal dialysis Plan Marco Holcomb is a 69 year old male with past medical history of ESRD on HD, bipolar disorder, Afib on Eliquis, s/p TAVR, hypertension, hyperlipidemia who presented to [facility] with erratic behavior over the past few weeks. Seen by Psych for decompensated bipolar illness in the inpt psych unit. Nephrology consulted for ESRD. 1. ESRD Dialyzes MWF at [facility] via LUE AVF 2. 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 today. He notes that he tosses and turns during sleep. According to nursing, he slept almost throughout the night last night. He has been refusing some of his medications, including Eliquis. He currently denies pain. He denies anxiety and depression. He denies SI/HI/AH/VH. Instructed on treatment regimen and importance of taking prescribed medications. Continue current treatment regimen. 09/27: Continue to encourage participation in his complete plan of care Labs for 09/30 Reason for continued inpatient stay Substantial Risk for: rapid decompensation Time Spent With Patient Time: Total time managing care of this patient today ____ minutes.
--- NOTE | 2024-09-27 15:54 | PC.NURSE ---
Marco arrived back on the unit after dialysis at 3:25pm. BP 132/66. Daniella PENN said he got 2.5 hours of dialysis today.
[2024-09-27] MEDS: THIOTHIXENE 5 MG 1 EACH PO (16:48)
[2024-09-27 20:00] VITALS: BP 107/61; PULSE 77; RESP 16; TEMP 36.7; O2SAT 99
[2024-09-27] MEDS: OLANZapine 10 MG VIAL 5 MG IM (22:50)
--- NOTE | 2024-09-27 23:39 | PM.PNNEP ---
Subjective Subjective Date of Service: 09/27/24 Interval history: pt seen in dialysis, Physical Exam Vital Signs: Vital Signs: Last Vital Signs Temp 98.1 F 09/27/24 20:00 Pulse 77 09/27/24 20:00 Resp 16 09/27/24 20:00 BP 107/61 09/27/24 20:00 Pulse Ox 99 09/27/24 20:00 O2 Del Method Room Air 09/27/24 20:00 cvs: s1s2 rs; cta Abd; soft Objective Data Labs 09/23/24 12:07 Microbiology Microbiology Results: Microbiology 09/20/24 13:33 Blood - Venous Blood Culture - Final No growth after 5 days. 09/20/24 13:33 Blood - Venous Blood Culture - Final No growth after 5 days. Procedures Date of Service Date of Service: 09/27/24 Assessment & Plan Assessment and plan (1) ESRD (end stage renal disease): Status: Acute Plan Marco Holcomb is a 69 year old male with past medical history of ESRD on HD, bipolar disorder, Afib on Eliquis, s/p TAVR, hypertension, hyperlipidemia who presented to [facility] with erratic behavior over the past few weeks. Seen by Psych for decompensated bipolar illness in the inpt psych unit. Nephrology consulted for ESRD. 1. ESRD Dialyzes MWF at [facility] via LUE AVF 2. 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
--- NOTE | 2024-09-28 17:28 | P.PNPSI_ITS ---
Subjective Subjective Date of Service: 09/28/24 Reason For Visit: Unspecified Bipolar D/O Depression Anxiety Interim History: Patient seen. He said you don't know me. I only want to talk to Dr. Mccord. He needed coaxing to take AM Abilify. Needed IM last night for refusing Thiothixene. He remains paranoid, guarded, appears depressed. Intermittent adherence. Medication Compliance: Intermittent Review of Systems Acute medical concerns: Yes Renal failure on dialysis Review of Systems Review of Systems Denies Yes all other systems are reviewed and are negative Mental Status Exam Mental Status Exam Narrative: Appearance: Casually dressed, adequate hygiene Behavior: Guarded. Calm and cooperative throughout the interview. Eye contact is minimal, and there are no signs of psychomotor agitation or retardation Speech: Normal volume and prosody Thought process: Noncompliant to treatment Thought content: Noncompliant to treatment Mood: fine Affect: Flat, irritable. SI:denies HI:denies VH/AH:none Delusions: None Insight/judgment: Impaired insight and judgment Memory/cog: Alert, oriented x 4. grossly intact to conversational testing Patient Appearance: Appropriate Patient Orientation: Person and Place Level of Consciousness: Alert Patient Behavior: Guarded Mood Description: Withdrawn Affect Description: Withdrawn Patient Cognition Impaired: No Ability to Follow Directions: Fair Speech Pattern: Spontaneous Speech Memory Description: Episodic Impaired Diagnostics Vital Signs (24Hr): Vital Signs - 24 hr 09/27/24 20:00 Temperature 98.1 F Pulse Rate 77 Respiratory Rate 16 Blood Pressure 107/61 Pulse Oximetry 99 Oxygen Delivery Method Room Air Labs 09/23/24 12:07 Medications Medications Current Medications Acetaminophen (Acetaminophen 325 Mg Tablet) 650 mg PO Q6H PRN PRN Reason: Headache/Pain, Scale 1-10 Al Hydroxide/Mg Hydroxide (Magnesium Hydrox/Alum Hydrox 30 Ml Oral.Susp) 30 ml PO Q6H PRN PRN Reason: Heartburn/Nausea Apixaban (Apixaban 2.5 Mg Tablet) 2.5 mg PO BID [facility] Last Admin: 09/28/24 09:17 Dose: Not Given Aripiprazole (Aripiprazole 20 Mg Tablet) 20 mg PO DAILY [facility] Last Admin: 09/28/24 09:22 Dose: 20 mg Aripiprazole (Aripiprazole 5 Mg Tablet) 5 mg PO DAILY [facility] Last Admin: 09/28/24 09:22 Dose: 5 mg Benztropine Mesylate (Benztropine Mesylate 1 Mg Tablet) 1 mg PO BEDTIME PRN PRN Reason: EPS Benztropine Mesylate (Benztropine Mesylate 1 Mg Tablet) 2 mg PO DAILY [facility] Last Admin: 09/28/24 09:17 Dose: Not Given Bisacodyl (Bisacodyl 5 Mg Tablet.Dr) 5 mg PO BEDTIME PRN PRN Reason: Constipation Last Admin: 09/19/24 09:54 Dose: 5 mg Divalproex Sodium (Divalproex Sodium Er 500 Mg Tab.Er.24h) 1,000 mg PO BEDTIME [facility] Last Admin: 09/27/24 22:35 Dose: Not Given Haloperidol Lactate (Haloperidol Lactate 5 Mg/Ml Vial) 5 mg IM TID PRN PRN Reason: if refuses Thiothexine Magnesium Hydroxide (Milk Of Magnesia 30 Ml Oral.Susp) 30 ml PO DAILY PRN PRN Reason: Constipation Metoprolol Tartrate (Metoprolol Tartrate 25 Mg Tablet) 25 mg PO DAILY [facility]; Protocol Last Admin: 09/28/24 09:17 Dose: Not Given Multivitamins/Vitamin C (Multivitamin Tablet) 1 tab PO DAILY [facility] Last Admin: 09/28/24 09:17 Dose: Not Given Nicotine (Nicotine 21 Mg Patch.Td24) 21 mg TRANSDERMA DAILY PRN PRN Reason: smoking cessation Nicotine Polacrilex (Nicotine Polacrilex 2 Mg Gum) 4 mg BUCCAL Q2H PRN PRN Reason: Nicotine Cravings Patient Own Medication Thiothixene 5mg Tab 1 each PO TID@1200,1600,2100 [facility] Last Admin: 09/28/24 15:22 Dose: Not Given Olanzapine (Olanzapine 10 Mg Vial) 10 mg IM DAILY PRN PRN Reason: if refuses PO Abilify 20mg Last Admin: 09/25/24 22:10 Dose: 10 mg Olanzapine (Olanzapine 10 Mg Vial) 5 mg IM DAILY PRN PRN Reason: give if refuses Depakote Last Admin: 09/27/24 22:50 Dose: 5 mg Torsemide (Torsemide 20 Mg Tablet) 100 mg PO TuThSa [facility]; Protocol Last Admin: 09/28/24 06:30 Dose: Not Given Trazodone HCl (Trazodone Hcl 50 Mg Tablet) 50 mg PO BEDTIME MRX1 PRN PRN Reason: Insomnia Allergies Allergies Allergy/AdvReac Type Severity Reaction Status Date / Time No Known Allergies Allergy Verified 07/24/23 11:18 Assessment & Plan Assessment & Plan (1) ESRD (end stage renal disease): Status: Acute Code(s): N18.6 - End stage renal disease (2) Bipolar disorder: Status: Acute Code(s): F31.9 - Bipolar disorder, unspecified Assessment and Plan: 09/26: Patient notes that he feels ?good? today. He notes that he tosses and turns during sleep. According to nursing, he slept almost throughout the night last night. He has been refusing some of his medications, including Eliquis. He currently denies pain. He denies anxiety and depression. He denies SI/HI/AH/VH. Instructed on treatment regimen and importance of taking prescribed medications. Continue current treatment regimen. 09/27: Continue to encourage participation in his complete plan of care 09/28: continue current management and treatment plan. Plan Marco Holcomb is a 69 year old male with past medical history of ESRD on HD, bipolar disorder, Afib on Eliquis, s/p TAVR, hypertension, hyperlipidemia who presented to [facility] with erratic behavior over the past few weeks. Seen by Psych for decompensated bipolar illness in the inpt psych unit. Nephrology consulted for ESRD. 1. ESRD Dialyzes MWF at [facility] via LUE AVF 2. 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
[2024-09-28 20:00] VITALS: BP 102/54; PULSE 77; RESP 16; TEMP 36.4; O2SAT 98
[2024-09-29 08:00] VITALS: BP 94/53; PULSE 70; TEMP 36.4; O2SAT 96
--- NOTE | 2024-09-29 09:46 | P.PNPSI_ITS ---
Subjective Subjective Date of Service: 09/29/24 Reason For Visit: Unspecified Bipolar D/O Depression Anxiety Interim History: Patient more willing to talk today. He wanted to meet with Dr. 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 Explained Dr. Mccord may not be in yet by that time. He takes some of his medications but doesn't take the Eliquis. He seems unaware that his was invoked as his HCP. He remains guarded, appears depressed and confused. Intermittent adherence. Review of Systems Review of Systems Denies Yes all other systems are reviewed and are negative Mental Status Exam Mental Status Exam Narrative: Appearance: Casually dressed, adequate hygiene Behavior: Guarded. Calm and cooperative throughout the interview. Eye contact is minimal, and there are no signs of psychomotor agitation or retardation Speech: Normal volume and prosody Thought process: Noncompliant to treatment Thought content: Noncompliant to treatment Mood: fine Affect: Flat, irritable. SI:denies HI:denies VH/AH:none Delusions: None Insight/judgment: Impaired insight and judgment Memory/cog: Alert, oriented x 4. grossly intact to conversational testing Patient Appearance: Appropriate Patient Orientation: Person and Place Level of Consciousness: Alert Patient Behavior: Guarded Mood Description: Withdrawn Affect Description: Withdrawn Patient Cognition Impaired: No Ability to Follow Directions: Fair Speech Pattern: Spontaneous Speech Memory Description: Episodic Impaired Diagnostics Vital Signs (24Hr): Vital Signs - 24 hr 09/28/24 20:00 Temperature 97.5 F Pulse Rate 77 Respiratory Rate 16 Blood Pressure 102/54 L Pulse Oximetry 98 Oxygen Delivery Method Room Air Labs 09/23/24 12:07 Medications Medications Current Medications Acetaminophen (Acetaminophen 325 Mg Tablet) 650 mg PO Q6H PRN PRN Reason: Headache/Pain, Scale 1-10 Al Hydroxide/Mg Hydroxide (Magnesium Hydrox/Alum Hydrox 30 Ml Oral.Susp) 30 ml PO Q6H PRN PRN Reason: Heartburn/Nausea Apixaban (Apixaban 2.5 Mg Tablet) 2.5 mg PO BID [facility] Last Admin: 09/28/24 22:38 Dose: Not Given Aripiprazole (Aripiprazole 20 Mg Tablet) 20 mg PO DAILY [facility] Last Admin: 09/28/24 09:22 Dose: 20 mg Aripiprazole (Aripiprazole 5 Mg Tablet) 5 mg PO DAILY [facility] Last Admin: 09/28/24 09:22 Dose: 5 mg Benztropine Mesylate (Benztropine Mesylate 1 Mg Tablet) 1 mg PO BEDTIME PRN PRN Reason: EPS Benztropine Mesylate (Benztropine Mesylate 1 Mg Tablet) 2 mg PO DAILY [facility] Last Admin: 09/28/24 09:17 Dose: Not Given Bisacodyl (Bisacodyl 5 Mg Tablet.Dr) 5 mg PO BEDTIME PRN PRN Reason: Constipation Last Admin: 09/19/24 09:54 Dose: 5 mg Divalproex Sodium (Divalproex Sodium Er 500 Mg Tab.Er.24h) 1,000 mg PO BEDTIME [facility] Last Admin: 09/28/24 22:29 Dose: 1,000 mg Haloperidol Lactate (Haloperidol Lactate 5 Mg/Ml Vial) 5 mg IM TID PRN PRN Reason: if refuses Thiothexine Magnesium Hydroxide (Milk Of Magnesia 30 Ml Oral.Susp) 30 ml PO DAILY PRN PRN Reason: Constipation Metoprolol Tartrate (Metoprolol Tartrate 25 Mg Tablet) 25 mg PO DAILY [facility]; Protocol Last Admin: 09/28/24 09:17 Dose: Not Given Multivitamins/Vitamin C (Multivitamin Tablet) 1 tab PO DAILY [facility] Last Admin: 09/28/24 09:17 Dose: Not Given Nicotine (Nicotine 21 Mg Patch.Td24) 21 mg TRANSDERMA DAILY PRN PRN Reason: smoking cessation Nicotine Polacrilex (Nicotine Polacrilex 2 Mg Gum) 4 mg BUCCAL Q2H PRN PRN Reason: Nicotine Cravings Patient Own Medication Thiothixene 5mg Tab 1 each PO TID@1200,1600,2100 [facility] Last Admin: 09/28/24 21:25 Dose: Not Given Olanzapine (Olanzapine 10 Mg Vial) 10 mg IM DAILY PRN PRN Reason: if refuses PO Abilify 20mg Last Admin: 09/25/24 22:10 Dose: 10 mg Olanzapine (Olanzapine 10 Mg Vial) 5 mg IM DAILY PRN PRN Reason: give if refuses Depakote Last Admin: 09/27/24 22:50 Dose: 5 mg Torsemide (Torsemide 20 Mg Tablet) 100 mg PO TuThSa [facility]; Protocol Last Admin: 09/28/24 06:30 Dose: Not Given Trazodone HCl (Trazodone Hcl 50 Mg Tablet) 50 mg PO BEDTIME MRX1 PRN PRN Reason: Insomnia Allergies Allergies Allergy/AdvReac Type Severity Reaction Status Date / Time No Known Allergies Allergy Verified 07/24/23 11:18 Assessment & Plan Assessment & Plan (1) ESRD (end stage renal disease): Status: Acute Code(s): N18.6 - End stage renal disease (2) Bipolar disorder: Status: Acute Code(s): F31.9 - Bipolar disorder, unspecified Assessment and Plan: 09/26: Patient notes that he feels ?good? today. He notes that he tosses and turns during sleep. According to nursing, he slept almost throughout the night last night. He has been refusing some of his medications, including Eliquis. He currently denies pain. He denies anxiety and depression. He denies SI/HI/AH/VH. Instructed on treatment regimen and importance of taking prescribed medications. Continue current treatment regimen. 09/27: Continue to encourage participation in his complete plan of care 09/28: continue current management and treatment plan. 09/29: Continue to encourage full adherence to medications. Continue current management and treatment plan. Plan Marco Holcomb is a 69 year old male with past medical history of ESRD on HD, bipolar disorder, Afib on Eliquis, s/p TAVR, hypertension, hyperlipidemia who [place] [facility] over the past few weeks. Seen by Psych for decompensated bipolar illness in the inpt psych unit. Nephrology consulted for ESRD. 1. ESRD Dialyzes MWF at [facility] via LUE AVF 2. 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
[2024-09-29 20:00] VITALS: BP 124/60; PULSE 65; TEMP 36.4; O2SAT 97
[2024-09-29] MEDS: THIOTHIXENE 5 MG 1 EACH PO (21:43)
--- NOTE | 2024-09-29 21:56 | PC.NURSE ---
Patient refused Eliquis, stating I have never taken that, ever.
[2024-09-30 08:00] VITALS: BP 116/59; PULSE 75; RESP 16; TEMP 36.4; O2SAT 95
[2024-09-30 09:54] LABS: MANUAL DIFF FLAG NO
[2024-09-30 10:00] LABS: Hematocrit 26.7 % (42.0-52.0); Hemoglobin 8.9 g/dl (14.0-18.0); Imm Gran Abs Auto 0.01 X10*3/uL (0.00-0.03); Imm Gran Pct Auto 0.3 % (0.0-0.4); Lymphocytes Absolute Auto 0.7 X10*3/uL (1.2-4.9); Mean Corpuscular HGB Conc 33.3 g/dl (31.0-36.0); Mean Corpuscular Hemoglobin 33.5 pg (27.0-33.0); Mean Corpuscular Volume 100.4 fL (80.0-98.0); NRBC Abs Auto 0.000 X10*3/uL (0.0-0.012); NRBC Pct Auto 0.0 /100WBC (0.0-0.2); Platelet Count 129 X10*3/uL (160-400); Red Blood Count 2.66 X10*6/uL (4.60-5.80); White Blood Count 3.7 X10*3/uL (4.8-10.8)
[2024-09-30 10:16] LABS: Anion Gap 21 (12-20); Blood Urea Nitrogen 45 mg/dL (9-16); Calcium 10.1 mg/dL (8.4-10.2); Carbon Dioxide 27 mmol/L (22-29); Chloride 98 mmol/L (96-108); Estimated Glomerular Filt Rate 4; Potassium 4.9 mmol/L (3.3-5.1); Sodium 141 mmol/L (135-145)
--- NOTE | 2024-09-30 10:59 | PC.NURSE ---
Pt refused skin assessment of wounds.
--- NOTE | 2024-09-30 11:27 | PC.NURSE ---
AM meds not offered as pt is going to dialysis. Will be offered after dialysis.
--- NOTE | 2024-09-30 12:35 | P.PNPSI_ITS ---
Subjective Subjective Date of Service: 09/30/24 Reason For Visit: Unspecified Bipolar D/O Depression Anxiety Subjective Notes: Conditional Voluntary Healthcare Proxy: Yes Guardianship: No Medical Problems Affecting Mental Status: Yes Interim History: Pt continues to struggle with medication and treatment refusals. Pt has limited dialysis time per team report and team reports he has indicated he is wanting to stop meds and dialysis, continuing to believe he is not in need of any treatment. Met with pt who is hesitant to discuss his thoughts as you are not one of the people who I know . Pt is dismissive when asked about his thoughts regarding treatment. Medication Compliance: Intermittent Side effects from medications: No Attending Groups: No Review of Systems Acute medical concerns: Yes Medical Review of Systems: unchanged Review of Systems Review of Systems Pt denies Dialysis pt Mental Status Exam Mental Status Exam Patient Appearance: Fatigued Patient Orientation: Person, Place and Situation Level of Consciousness: Awake and Alert Patient Behavior: Guarded, Suspicious, Resistive to Care, Avoidant, Fatigued, Isolative and Poor Eye Contact Mood Description: Suspicious, Withdrawn, Constricted and Blunted Affect Description: Blunted Patient Cognition Impaired: Yes Ability to Follow Directions: Fair Speech Pattern: Spontaneous Speech and Soft-Spoken Memory Description: Remote Impaired Delusions: Present Perceptual Disturbances: Depersonalization and Derealization Thought Process: Illogical and Distracted Thought Content: positive for [place] and positive for Circumstantial Depressive Symptoms: Increased Fatigue Judgement: Poor Diagnostics Vital Signs (24Hr): Vital Signs - 24 hr 09/29/24 20:00 09/30/24 08:00 Temperature 97.5 F 97.5 F Pulse Rate 65 75 Respiratory Rate 16 Blood Pressure 124/60 116/59 L Pulse Oximetry 97 95 Oxygen Delivery Method Room Air Room Air Labs 09/30/24 09:50 09/30/24 09:50 Labs: Laboratory Results - last 48 hr 09/30/24 09:50 WBC 3.7 L RBC 2.66 L Hgb 8.9 L Hct 26.7 L MCV 100.4 H MCH 33.5 H MCHC 33.3 RDW 14.7 Plt Count 129 L D MPV 10.6 Immature Gran % (Auto) 0.3 Neut % (Auto) 65.2 Lymph % (Auto) 18.1 L [place] % (Auto) 11.6 H Eos % (Auto) 3.2 Baso % (Auto) 1.6 Lymph # (Auto) 0.7 L [place] # (Auto) 0.4 Eos # (Auto) 0.1 Baso # (Auto) 0.1 Abs Immat Gran (auto) 0.01 Absolute Neuts (auto) 2.4 Absolute Nucleated RBC 0.000 Nucleated RBC % (auto) 0.0 Sodium 141 Potassium 4.9 Chloride 98 Carbon Dioxide 27 Anion Gap 21 H BUN 45 H Creatinine 11.62 H* Estim Creat Clear Calc TNP Estimated GFR 4 Random Glucose 165 H Calcium 10.1 EKG EKG Comment: Refuses Medications Medications Current Medications Acetaminophen (Acetaminophen 325 Mg Tablet) 650 mg PO Q6H PRN PRN Reason: Headache/Pain, Scale 1-10 Al Hydroxide/Mg Hydroxide (Magnesium Hydrox/Alum Hydrox 30 Ml Oral.Susp) 30 ml PO Q6H PRN PRN Reason: Heartburn/Nausea Apixaban (Apixaban 2.5 Mg Tablet) 2.5 mg PO BID [facility] Last Admin: 09/29/24 21:50 Dose: Not Given Aripiprazole (Aripiprazole 20 Mg Tablet) 20 mg PO DAILY [facility] Last Admin: 09/29/24 12:35 Dose: 20 mg Aripiprazole (Aripiprazole 5 Mg Tablet) 5 mg PO DAILY [facility] Last Admin: 09/29/24 12:35 Dose: 5 mg Benztropine Mesylate (Benztropine Mesylate 1 Mg Tablet) 1 mg PO BEDTIME PRN PRN Reason: EPS Benztropine Mesylate (Benztropine Mesylate 1 Mg Tablet) 2 mg PO DAILY [facility] Last Admin: 09/29/24 09:51 Dose: Not Given Bisacodyl (Bisacodyl 5 Mg Tablet.Dr) 5 mg PO BEDTIME PRN PRN Reason: Constipation Last Admin: 09/19/24 09:54 Dose: 5 mg Divalproex Sodium (Divalproex Sodium Er 500 Mg Tab.Er.24h) 1,000 mg PO BEDTIME [facility] Last Admin: 09/29/24 21:50 Dose: 1,000 mg Haloperidol Lactate (Haloperidol Lactate 5 Mg/Ml Vial) 5 mg IM TID PRN PRN Reason: if refuses Thiothexine Magnesium Hydroxide (Milk Of Magnesia 30 Ml Oral.Susp) 30 ml PO DAILY PRN PRN Reason: Constipation Metoprolol Tartrate (Metoprolol Tartrate 25 Mg Tablet) 25 mg PO DAILY [facility]; Protocol Last Admin: 09/29/24 09:51 Dose: Not Given Multivitamins/Vitamin C (Multivitamin Tablet) 1 tab PO DAILY [facility] Last Admin: 09/29/24 09:52 Dose: Not Given Nicotine (Nicotine 21 Mg Patch.Td24) 21 mg TRANSDERMA DAILY PRN PRN Reason: smoking cessation Nicotine Polacrilex (Nicotine Polacrilex 2 Mg Gum) 4 mg BUCCAL Q2H PRN PRN Reason: Nicotine Cravings Patient Own Medication Thiothixene 5mg Tab 1 each PO TID@1200,1600,2100 [facility] Last Admin: 09/29/24 21:43 Dose: 1 each Olanzapine (Olanzapine 10 Mg Vial) 10 mg IM DAILY PRN PRN Reason: if refuses PO Abilify 20mg Last Admin: 09/25/24 22:10 Dose: 10 mg Olanzapine (Olanzapine 10 Mg Vial) 5 mg IM DAILY PRN PRN Reason: give if refuses Depakote Last Admin: 09/27/24 22:50 Dose: 5 mg Torsemide (Torsemide 20 Mg Tablet) 100 mg PO TuThSa [facility]; Protocol Last Admin: 09/28/24 06:30 Dose: Not Given Trazodone HCl (Trazodone Hcl 50 Mg Tablet) 50 mg PO BEDTIME MRX1 PRN PRN Reason: Insomnia Allergies Allergies Allergy/AdvReac Type Severity Reaction Status Date / Time No Known Allergies Allergy Verified 07/24/23 11:18 Assessment & Plan Assessment & Plan (1) ESRD (end stage renal disease): Status: Acute Code(s): N18.6 - End stage renal disease (2) Bipolar disorder: Status: Acute Code(s): F31.9 - Bipolar disorder, unspecified Assessment and Plan: 09/26: Patient notes that he feels ?good? today. He notes that he tosses and turns during sleep. According to nursing, he slept almost throughout the night last night. He has been refusing some of his medications, including Eliquis. He currently denies pain. He denies anxiety and depression. He denies SI/HI/AH/VH. Instructed on treatment regimen and importance of taking prescribed medications. Continue current treatment regimen. 09/27: Continue to encourage participation in his complete plan of care 09/28: continue current management and treatment plan. 09/29: Continue to encourage full adherence to medications. Continue current management and treatment plan. 09/30: Continue to encourage treatment compliance. Plan Marco Holcomb is a 69 year old male with past medical history of ESRD on HD, bipolar disorder, Afib on Eliquis, s/p TAVR, hypertension, hyperlipidemia who [place] [facility] [place] over the past few weeks. Seen by Psych for decompensated bipolar illness in the inpt psych unit. Nephrology consulted for ESRD. 1. ESRD Dialyzes MWF at [facility] via LUE AVF 2. 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
[2024-09-30] MEDS: THIOTHIXENE 5 MG 1 EACH PO ×2 (18:27→22:01)
--- NOTE | 2024-09-30 18:29 | PC.NURSE ---
meds administered late as morning meds were held due to pt going to dialysis. MARGARET Donohue made aware.
--- NOTE | 2024-09-30 18:31 | PC.NURSE ---
pt refused EKG
[2024-09-30 19:52] VITALS: BP 125/67; PULSE 84; TEMP 36.4; O2SAT 96
[2024-10-01 08:00] VITALS: BP 129/60; PULSE 72; RESP 17; TEMP 36.4; O2SAT 95
--- NOTE | 2024-10-01 11:30 | HO.PSYCHPN ---
Subjective Subjective Date of Service: 10/01/24 Reason For Visit: Unspecified Bipolar D/O Depression Anxiety Subjective Notes: Conditional Voluntary Healthcare Proxy: Yes Guardianship: No Medical Problems Affecting Mental Status: Yes Interim History: Expressed anger with tw today- both Leanne and Dr. Mccord left me here. I don't know any of you. Discussed plan of care and medical consequences of refusal of care. I know . Team questions meds before dialysis- dialysis team reports we may hold cardiac meds however pt may have psych meds prior to dialysis. Medication Compliance: Intermittent Side effects from medications: No Attending Groups: No Review of Systems Acute medical concerns: Yes Medical Review of Systems: unchanged Review of Systems Review of Systems Denies ESRD, Dialysis pt Mental Status Exam Mental Status Exam Patient Appearance: Fatigued Patient Orientation: Person, Place and Situation Level of Consciousness: Awake and Alert Patient Behavior: Guarded, Suspicious, Resistive to Care, Avoidant, Fatigued, Isolative and Poor Eye Contact Mood Description: Suspicious, Withdrawn, Constricted and Blunted Affect Description: Blunted Patient Cognition Impaired: Yes Ability to Follow Directions: Fair Speech Pattern: Spontaneous Speech and Soft-Spoken Memory Description: Remote Impaired Delusions: Present Perceptual Disturbances: Depersonalization and Derealization Thought Process: Illogical and Distracted Thought Content: positive for [place] and positive for Circumstantial Depressive Symptoms: Increased Fatigue Judgement: Poor Diagnostics Vital Signs (24Hr): Vital Signs - 24 hr 09/30/24 19:52 10/01/24 08:00 Temperature 97.5 F 97.5 F Pulse Rate 84 72 Respiratory Rate 17 Blood Pressure 125/67 129/60 Pulse Oximetry 96 95 Oxygen Delivery Method Room Air Room Air Labs 09/30/24 09:50 09/30/24 09:50 Labs: Laboratory Results - last 48 hr 09/30/24 09:50 WBC 3.7 L RBC 2.66 L Hgb 8.9 L Hct 26.7 L MCV 100.4 H MCH 33.5 H MCHC 33.3 RDW 14.7 Plt Count 129 L D MPV 10.6 Immature Gran % (Auto) 0.3 Neut % (Auto) 65.2 Lymph % (Auto) 18.1 L [place] % (Auto) 11.6 H Eos % (Auto) 3.2 Baso % (Auto) 1.6 Lymph # (Auto) 0.7 L [place] # (Auto) 0.4 Eos # (Auto) 0.1 Baso # (Auto) 0.1 Abs Immat Gran (auto) 0.01 Absolute Neuts (auto) 2.4 Absolute Nucleated RBC 0.000 Nucleated RBC % (auto) 0.0 Sodium 141 Potassium 4.9 Chloride 98 Carbon Dioxide 27 Anion Gap 21 H BUN 45 H Creatinine 11.62 H* Estim Creat Clear Calc TNP Estimated GFR 4 Random Glucose 165 H Calcium 10.1 Medications Medications Current Medications Acetaminophen (Acetaminophen 325 Mg Tablet) 650 mg PO Q6H PRN PRN Reason: Headache/Pain, Scale 1-10 Al Hydroxide/Mg Hydroxide (Magnesium Hydrox/Alum Hydrox 30 Ml Oral.Susp) 30 ml PO Q6H PRN PRN Reason: Heartburn/Nausea Apixaban (Apixaban 2.5 Mg Tablet) 2.5 mg PO BID [facility] Last Admin: 10/01/24 09:17 Dose: Not Given Aripiprazole (Aripiprazole 20 Mg Tablet) 20 mg PO DAILY [facility] Last Admin: 10/01/24 09:09 Dose: 20 mg Aripiprazole (Aripiprazole 5 Mg Tablet) 5 mg PO DAILY [facility] Last Admin: 10/01/24 09:09 Dose: 5 mg Benztropine Mesylate (Benztropine Mesylate 1 Mg Tablet) 1 mg PO BEDTIME PRN PRN Reason: EPS Benztropine Mesylate (Benztropine Mesylate 1 Mg Tablet) 2 mg PO DAILY [facility] Last Admin: 10/01/24 09:17 Dose: Not Given Bisacodyl (Bisacodyl 5 Mg Tablet.Dr) 5 mg PO BEDTIME PRN PRN Reason: Constipation Last Admin: 09/19/24 09:54 Dose: 5 mg Divalproex Sodium (Divalproex Sodium Er 500 Mg Tab.Er.24h) 1,000 mg PO BEDTIME [facility] Last Admin: 09/30/24 22:01 Dose: 1,000 mg Haloperidol Lactate (Haloperidol Lactate 5 Mg/Ml Vial) 5 mg IM TID PRN PRN Reason: if refuses Thiothexine Magnesium Hydroxide (Milk Of Magnesia 30 Ml Oral.Susp) 30 ml PO DAILY PRN PRN Reason: Constipation Metoprolol Tartrate (Metoprolol Tartrate 25 Mg Tablet) 25 mg PO DAILY [facility]; Protocol Last Admin: 10/01/24 09:10 Dose: Not Given Multivitamins/Vitamin C (Multivitamin Tablet) 1 tab PO DAILY [facility] Last Admin: 10/01/24 09:17 Dose: Not Given Nicotine (Nicotine 21 Mg Patch.Td24) 21 mg TRANSDERMA DAILY PRN PRN Reason: smoking cessation Nicotine Polacrilex (Nicotine Polacrilex 2 Mg Gum) 4 mg BUCCAL Q2H PRN PRN Reason: Nicotine Cravings Patient Own Medication Thiothixene 5mg Tab 1 each PO TID@1200,1600,2100 [facility] Last Admin: 09/30/24 22:01 Dose: 1 each Olanzapine (Olanzapine 10 Mg Vial) 10 mg IM DAILY PRN PRN Reason: if refuses PO Abilify 20mg Last Admin: 09/25/24 22:10 Dose: 10 mg Olanzapine (Olanzapine 10 Mg Vial) 5 mg IM DAILY PRN PRN Reason: give if refuses Depakote Last Admin: 09/27/24 22:50 Dose: 5 mg Torsemide (Torsemide 20 Mg Tablet) 100 mg PO TuThSa [facility]; Protocol Last Admin: 10/01/24 09:13 Dose: Not Given Trazodone HCl (Trazodone Hcl 50 Mg Tablet) 50 mg PO BEDTIME MRX1 PRN PRN Reason: Insomnia Allergies Allergies Allergy/AdvReac Type Severity Reaction Status Date / Time No Known Allergies Allergy Verified 07/24/23 11:18 Assessment & Plan Assessment & Plan (1) ESRD (end stage renal disease): Status: Acute Code(s): N18.6 - End stage renal disease (2) Bipolar disorder: Status: Acute Code(s): F31.9 - Bipolar disorder, unspecified Assessment and Plan: 09/26: Patient notes that he feels ?good? today. He notes that he tosses and turns during sleep. According to nursing, he slept almost throughout the night last night. He has been refusing some of his medications, including Eliquis. He currently denies pain. He denies anxiety and depression. He denies SI/HI/AH/VH. Instructed on treatment regimen and importance of taking prescribed medications. Continue current treatment regimen. 09/27: Continue to encourage participation in his complete plan of care 09/28: continue current management and treatment plan. 09/29: Continue to encourage full adherence to medications. Continue current management and treatment plan. 09/30: Continue to encourage treatment compliance. 10/01: Encourage treatment compliance Plan Marco Holcomb is a 69 year old male with past medical history of ESRD on HD, bipolar disorder, Afib on Eliquis, s/p TAVR, hypertension, hyperlipidemia who presented to [facility] [place] with erratic behavior over the past few weeks. Seen by Psych for decompensated bipolar illness in the inpt psych unit. Nephrology consulted for ESRD. 1. ESRD Dialyzes MWF at [facility] via LUE AVF 2. 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
[2024-10-01] MEDS: THIOTHIXENE 5 MG 1 EACH PO ×3 (13:02→22:20)
[2024-10-02 11:10] VITALS: BP 100/59; PULSE 88; TEMP 36.3; O2SAT 96
[2024-10-02] MEDS: THIOTHIXENE 5 MG 1 EACH PO ×3 (12:16→21:04)
--- NOTE | 2024-10-02 14:23 | P.PNPSI_ITS ---
Subjective Subjective Date of Service: 10/02/24 Reason For Visit: Unspecified Bipolar D/O Depression Anxiety Subjective Notes: Conditional Voluntary Healthcare Proxy: Yes Guardianship: No Medical Problems Affecting Mental Status: Yes Interim History: Pt continues to express resistance to treatment plan, testing, medicine. He has poor insight that treatment noncompliance is life threatening. Dialysis reports he has increased to 2 and 3/4 hours, a negotiation with Dr. Pena of 15 minute increments. Team had difficulty on Monday with wanting him to go for 3 hours and he had refused to attend, so they are decreasing time and allowing him to make some choices. Discussed with medical team a transfer as pt is refusing meds more often and Haldol IV is odered as an alternative when po is refused-this was denied by Dr. Espinal, who will not utilize IV Haldol. Pt struggled with this creative writer today who needed to discuss refusal of meds and plan to restrain, complete EKG and provide IM alternatives. Pt did agree to take medications after this discussion. Medication Compliance: Intermittent Side effects from medications: No Attending Groups: Intermittent Review of Systems Acute medical concerns: Yes Review of Systems Review of Systems ESRD Mental Status Exam Mental Status Exam Patient Appearance: Fatigued Patient Orientation: Person, Place and Situation Level of Consciousness: Awake and Alert Patient Behavior: Guarded, Suspicious, Resistive to Care, Avoidant, Fatigued, Isolative and Poor Eye Contact Mood Description: Suspicious, Withdrawn, Constricted and Blunted Affect Description: Blunted Patient Cognition Impaired: Yes Ability to Follow Directions: Fair Speech Pattern: Spontaneous Speech and Soft-Spoken Memory Description: Remote Impaired Delusions: Present Perceptual Disturbances: Depersonalization and Derealization Thought Process: Illogical and Distracted Thought Content: positive for [place] and positive for Circumstantial Depressive Symptoms: Increased Fatigue Judgement: Poor Diagnostics Vital Signs (24Hr): Vital Signs - 24 hr 10/02/24 11:10 Temperature 97.3 F Pulse Rate 88 Blood Pressure 100/59 L Pulse Oximetry 96 Oxygen Delivery Method Room Air Labs 09/30/24 09:50 09/30/24 09:50 Medications Medications Current Medications Acetaminophen (Acetaminophen 325 Mg Tablet) 650 mg PO Q6H PRN PRN Reason: Headache/Pain, Scale 1-10 Al Hydroxide/Mg Hydroxide (Magnesium Hydrox/Alum Hydrox 30 Ml Oral.Susp) 30 ml PO Q6H PRN PRN Reason: Heartburn/Nausea Apixaban (Apixaban 2.5 Mg Tablet) 2.5 mg PO BID [facility] Last Admin: 10/02/24 12:38 Dose: Not Given Aripiprazole (Aripiprazole 20 Mg Tablet) 20 mg PO DAILY [facility] Last Admin: 10/02/24 12:15 Dose: 20 mg Aripiprazole (Aripiprazole 5 Mg Tablet) 5 mg PO DAILY [facility] Last Admin: 10/02/24 12:16 Dose: 5 mg Benztropine Mesylate (Benztropine Mesylate 1 Mg Tablet) 1 mg PO BEDTIME PRN PRN Reason: EPS Benztropine Mesylate (Benztropine Mesylate 1 Mg Tablet) 2 mg PO DAILY [facility] Last Admin: 10/02/24 12:38 Dose: Not Given Bisacodyl (Bisacodyl 5 Mg Tablet.Dr) 5 mg PO BEDTIME PRN PRN Reason: Constipation Last Admin: 09/19/24 09:54 Dose: 5 mg Divalproex Sodium (Divalproex Sodium Er 500 Mg Tab.Er.24h) 1,000 mg PO BEDTIME [facility] Last Admin: 10/01/24 22:21 Dose: 1,000 mg Haloperidol Lactate (Haloperidol Lactate 5 Mg/Ml Vial) 5 mg IM TID PRN PRN Reason: if refuses Thiothexine Magnesium Hydroxide (Milk Of Magnesia 30 Ml Oral.Susp) 30 ml PO DAILY PRN PRN Reason: Constipation Metoprolol Tartrate (Metoprolol Tartrate 25 Mg Tablet) 25 mg PO DAILY [facility]; Protocol Last Admin: 10/02/24 12:38 Dose: Not Given Multivitamins/Vitamin C (Multivitamin Tablet) 1 tab PO DAILY [facility] Last Admin: 10/02/24 12:39 Dose: Not Given Nicotine (Nicotine 21 Mg Patch.Td24) 21 mg TRANSDERMA DAILY PRN PRN Reason: smoking cessation Nicotine Polacrilex (Nicotine Polacrilex 2 Mg Gum) 4 mg BUCCAL Q2H PRN PRN Reason: Nicotine Cravings Patient Own Medication Thiothixene 5mg Tab 1 each PO TID@1200,1600,2100 [facility] Last Admin: 10/02/24 12:16 Dose: 1 each Olanzapine (Olanzapine 10 Mg Vial) 10 mg IM DAILY PRN PRN Reason: if refuses PO Abilify 20mg Last Admin: 09/25/24 22:10 Dose: 10 mg Olanzapine (Olanzapine 10 Mg Vial) 5 mg IM DAILY PRN PRN Reason: give if refuses Depakote Last Admin: 09/27/24 22:50 Dose: 5 mg Torsemide (Torsemide 20 Mg Tablet) 100 mg PO [facility]; Protocol Last Admin: 10/01/24 09:13 Dose: Not Given Trazodone HCl (Trazodone Hcl 50 Mg Tablet) 50 mg PO BEDTIME MRX1 PRN PRN Reason: Insomnia Allergies Allergies Allergy/AdvReac Type Severity Reaction Status Date / Time No Known Allergies Allergy Verified 07/24/23 11:18 Assessment & Plan Assessment & Plan (1) ESRD (end stage renal disease): Status: Acute Code(s): N18.6 - End stage renal disease (2) Bipolar disorder: Status: Acute Code(s): F31.9 - Bipolar disorder, unspecified Assessment and Plan: 09/26: Patient notes that he feels ?good? today. He notes that he tosses and turns during sleep. According to nursing, he slept almost throughout the night last night. He has been refusing some of his medications, including Eliquis. He currently denies pain. He denies anxiety and depression. He denies SI/HI/AH/VH. Instructed on treatment regimen and importance of taking prescribed medications. Continue current treatment regimen. 09/27: Continue to encourage participation in his complete plan of care 09/28: continue current management and treatment plan. 09/29: Continue to encourage full adherence to medications. Continue current management and treatment plan. 09/30: Continue to encourage treatment compliance. 10/02: Continue tx plan Plan Marco Holcomb is a 69 year old male with past medical history of ESRD on HD, bipolar disorder, Afib on Eliquis, s/p TAVR, hypertension, hyperlipidemia who presented to [facility] with erratic behavior over the past few weeks. Seen by Psych for decompensated bipolar illness in the inpt psych unit. Nephrology consulted for ESRD. 1. ESRD Dialyzes MWF at [facility] via LUE AVF 2. 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
--- NOTE | 2024-10-02 16:43 | P.PNNP_ITS ---
Subjective Subjective Date of Service: 09/30/24 Interval history: Seen and examined Events noted Cotn to ques need for HD and at tmes refusing but overall going along with Tx 3x/wk at 150 to 165 min Physical Exam 2 Vital Signs: Vital Signs: Last Vital Signs Temp 97.3 F 10/02/24 11:10 Pulse 88 10/02/24 11:10 Resp 17 10/01/24 08:00 BP 100/59 L 10/02/24 11:10 Pulse Ox 96 10/02/24 11:10 O2 Del Method Room Air 10/02/24 11:10 Const: General: cooperative HEENT: Head: Yes normal to inspection Face and sinus: Yes normal facial exam Mouth: Normal oral and palatal mucosa present Teeth and gingiva: d entition normal Eyes: General: appearance normal, both eyes and all related structures P upils: Equal, round and reactive pupils present Resp: Effort & Inspection: normal respiratory effort Cardio: Rate: regular rate Rhythm: regular rhythm GI: Palpation (GI): Soft to palpation and nontender : General: Yes no CVA tenderness Back/Spine/Pelvis: Back: no CVA tenderness Skin: General skin exam: no rashes or lesions noted Neuro: General: moves all extremities Cranial nerves: Yes Equal, round and reactive pupils present Extrem: Other: right toe red DIP pulses intact Psych: Appearance: grossly normal Objective Data Labs 09/30/24 09:50 09/30/24 09:50 Microbiology Microbiology Results: Microbiology 09/20/24 13:33 Blood - Venous Blood Culture - Final No growth after 5 days. 09/20/24 13:33 Blood - Venous Blood Culture - Final No growth after 5 days. Procedures Date of Service Date of Service: 10/02/24 Assessment & Plan Assessment and plan (1) ESRD (end stage renal disease): Status: Acute Plan Marco Holcomb is a 69 year old male with past medical history of ESRD on HD, bipolar disorder, Afib on Eliquis, s/p TAVR, hypertension, hyperlipidemia who presented to [facility] with erratic behavior over the past few weeks. Seen by Psych for decompensated bipolar illness in the inpt psych unit. Nephrology consulted for ESRD. 1. ESRD Dialyzes MWF at [facility] via LUE AVF 2. 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
--- NOTE | 2024-10-02 16:45 | P.PNNP_ITS ---
Subjective Subjective Date of Service: 10/02/24 Interval history: Seen and examined during HD, resting comfortably Events noted Cotn to ques need for HD and at tmes refusing but overall going along with Tx 3x/wk at 150 to 165 min Physical Exam 2 Vital Signs: Vital Signs: Last Vital Signs Temp 97.3 F 10/02/24 11:10 Pulse 88 10/02/24 11:10 Resp 17 10/01/24 08:00 BP 100/59 L 10/02/24 11:10 Pulse Ox 96 10/02/24 11:10 O2 Del Method Room Air 10/02/24 11:10 Const: General: cooperative HEENT: Head: Yes normal to inspection Face and sinus: Yes normal facial exam Mouth: Normal oral and palatal mucosa present Teeth and gingiva: d entition normal Eyes: General: appearance normal, both eyes and all related structures P upils: Equal, round and reactive pupils present Resp: Effort & Inspection: normal respiratory effort Cardio: Rate: regular rate Rhythm: regular rhythm GI: Palpation (GI): Soft to palpation and nontender : General: Yes no CVA tenderness Back/Spine/Pelvis: Back: no CVA tenderness Skin: General skin exam: no rashes or lesions noted Neuro: General: moves all extremities Cranial nerves: Yes Equal, round and reactive pupils present Extrem: Other: right toe red DIP pulses intact Psych: Appearance: grossly normal Objective Data Labs 09/30/24 09:50 09/30/24 09:50 Microbiology Microbiology Results: Microbiology 09/20/24 13:33 Blood - Venous Blood Culture - Final No growth after 5 days. 09/20/24 13:33 Blood - Venous Blood Culture - Final No growth after 5 days. Procedures Date of Service Date of Service: 10/02/24 Assessment & Plan Assessment and plan (1) ESRD (end stage renal disease): Status: Acute Plan Marco Holcomb is a 69 year old male with past medical history of ESRD on HD, bipolar disorder, Afib on Eliquis, s/p TAVR, hypertension, hyperlipidemia who presented to [facility] with erratic behavior over the past few weeks. Seen by Psych for decompensated bipolar illness in the inpt psych unit. Nephrology consulted for ESRD. 1. ESRD Dialyzes MWF at [facility] via LUE AVF 2. 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
--- NOTE | 2024-10-02 17:23 | HO.WOUND ---
Wound Consult: Initial 69yr old? male admitted to [facility] on 09/05/24 17:25- See progress notes and H&P for detailed history.? Wound consult placed for Right Great Toe wound - per staff and provider patint is now agreeable to assessment by this life insurance underwriter and topical recommendations. Unfortunately arrival to bedside patient remains very resistent to topical recommendations and assessment. He did not allow me to do a full assessment but was willing to allow for me to visualize the wound. There is a small area that lifts and I would have preferred to probe for depth but the patient refused. There is concern for osteo given the close proximity to bone and area that appears to probe. I would recommend imaging to ruleout osteo development given he is resistent to full assessment. atient is not agreeable to assessment and photo documentation at this time. He reports he wanted to make a phone call direct care team attempted to intervene and have him allow my assessment but he continued refusal. He is agreeable per his statement for me to come Monday. Keeley Smith NP aware not able to assess. Based on photo review the wound bed appears relatively clean there is lateral area that may be macerated but may intact be a pocket - will need in person assessment. There is mild erythema noted to the wound edge along with black partial nail bed. Right Great Toe Etiology: ??Unclear Etiology and time line at this time. Wound Bed: appears relatively clean there is lateral area that may be macerated but may intact be a pocket - will need in person assessment Drainage / Odor: unknown Edges: ? macerated and rolled Mariya wound: erythema and nail bed discoloration Goals of Treatment: ? Recommend durafiber for moisture management until further assessment. Recommend provider follow up on imaging for osteo and or abscess. Recommendations: Right Great Toe - Cleanse with ns pat dry or wash with routine showering with soap and water. Pat dry. Cover open wound bed with Durafiber AG followed by bandaid. May change every other day or daily if showering daily. Re-consult wound care Nurse for wound deterioration or wound changes.
--- NOTE | 2024-10-02 17:25 | HO.WOUND ---
Wound Consult: Initial 69yr old? male admitted to [facility] on 09/05/24 17:25- See progress notes and H&P for detailed history.? Wound consult placed for Right Great Toe wound - per staff and provider patient is now agreeable to assessment by this typewriter assembly and parts inspector and topical recommendations. Unfortunately arrival to bedside patient remains very resistant to topical recommendations and assessment. He did not allow me to do a full assessment but was willing to allow for me to visualize the wound. There is a small area that lifts and I would have preferred to probe for depth but the patient refused. There is concern for osteo given the close proximity to bone and area that appears to probe. I would recommend imaging to rule out osteo development given he is resistant to full assessment. I recommend Durafiber AG to allow for moisture management since the wound does appear to remains with significant drainage, he refused and reported he would only want Bacitracin used - I told him this was contraindicated since the toe alreadfy has excess moisture he was not agreeable to another option. There is concern if Bacitracin is used this will only increase the moisture content which will likely deteriorate the tissue further. I recommend reeducation by staff and providers for Durafiber Ag for moisture management and antimicrobial properties. Keeley Smith NP aware not able to assess. 09/20/24 10/02/24 10/02/24 10/02/24 Right Great Toe Etiology: ??Unclear Etiology Wound Bed: macerated but may intact be a pocket - will need in person assessment Drainage / Odor: serosang with some chan drainage - foul odor noted Edges: ? macerated and rolled Mariya wound: Mild swelling noted at ankle red erythema and nail bed discoloration Goals of Treatment: ? Recommend durafiber for moisture management Recommend provider follow up on imaging for osteo and or abscess. Recommendations: Right Great Toe - Cleanse with ns pat dry or wash with routine showering with soap and water. Pat dry. Cover open wound bed with Durafiber AG followed by bandaid. May change every other day or daily if showering daily. Re-consult wound care Nurse for wound deterioration or wound changes.
[2024-10-02 19:51] VITALS: BP 104/57; PULSE 81; RESP 18; TEMP 36.4; O2SAT 97
[2024-10-03 08:00] VITALS: BP 107/59; PULSE 74; TEMP 36.4; O2SAT 95
--- NOTE | 2024-10-03 09:43 | P.PNIM_ITS ---
Subjective Subjective Date of Service: 10/03/24 Interval History: Requested by nursing to again evaluate patient's right great toe wound. Patient had requested to be seen by wound nurse yesterday. When wound nurse to arrived patient was resistant to recommendations and assessment however allowed her to visualize the wound. There are concerns for osteomyelitis due to a small area on the wound close proximity to bone. It was recommended that dura fiber Ag is applied to wound bed. When I arrived to evaluate wound discussed with patient patient again refusing any visual assessment of the wound. Attempted to reason with patient and explain the treatment recommendations and plans due to the severity of the wound and the concerns with a bone infection. Patient reports that he has been applying a dry dressing and that is all he needs, is resistive to any other treatment and refuses to allow me to assess the wound. Nurse at bedside and also refusing to allow nurse to provide wound care. He denies any pain to the area, no fevers noted, no tachycardia did not appear to be in any distress. Mild swelling noted at ankle and continued nailbed discoloration. Review of Systems He denies any pain to his foot Physical Exam 2 Vital Signs: Vital Signs: Last Vital Signs Temp 97.5 F 10/03/24 08:00 Pulse 74 10/03/24 08:00 Resp 18 10/02/24 19:51 BP 107/59 L 10/03/24 08:00 Pulse Ox 95 10/03/24 08:00 O2 Del Method Room Air 10/03/24 08:00 CONST: Alert and confused, resistive to care HEENT: Normocephalic, atraumatic RESP: Respiratory rate even and regular no increased work of breathing HEART: no edema SKIN: Warm dry and intact, no visible lesions or rashes, wound to right great toe covered with a dry bandage. NEURO: Speech clear PSYCH: Baseline affect Objective Data Active Medications Acetaminophen (Acetaminophen 325 Mg Tablet) 650 mg PO Q6H PRN PRN Reason: Headache/Pain, Scale 1-10 Al Hydroxide/Mg Hydroxide (Magnesium Hydrox/Alum Hydrox 30 Ml Oral.Susp) 30 ml PO Q6H PRN PRN Reason: Heartburn/Nausea Apixaban (Apixaban 2.5 Mg Tablet) 2.5 mg PO BID [facility] Last Admin: 10/03/24 09:25 Dose: Not Given Documented By: VICKI Non-Admin Reason: Patient Refused Aripiprazole (Aripiprazole 20 Mg Tablet) 20 mg PO DAILY [facility] Last Admin: 10/03/24 09:08 Dose: 20 mg Documented By: VICKI Aripiprazole (Aripiprazole 5 Mg Tablet) 5 mg PO DAILY [facility] Last Admin: 10/03/24 09:08 Dose: 5 mg Documented By: VICKI Benztropine Mesylate (Benztropine Mesylate 1 Mg Tablet) 1 mg PO BEDTIME PRN PRN Reason: EPS Benztropine Mesylate (Benztropine Mesylate 1 Mg Tablet) 2 mg PO DAILY [facility] Last Admin: 10/03/24 09:25 Dose: Not Given Documented By: VICKI Non-Admin Reason: Patient Refused Bisacodyl (Bisacodyl 5 Mg Tablet.Dr) 5 mg PO BEDTIME PRN PRN Reason: Constipation Last Admin: 09/19/24 09:54 Dose: 5 mg Documented By: KONSTANTIN Divalproex Sodium (Divalproex Sodium Er 500 Mg Tab.Er.24h) 1,000 mg PO BEDTIME [facility] Last Admin: 10/02/24 21:04 Dose: 1,000 mg Documented By: VIDA Haloperidol Lactate (Haloperidol Lactate 5 Mg/Ml Vial) 5 mg IM TID PRN PRN Reason: if refuses Thiothexine Magnesium Hydroxide (Milk Of Magnesia 30 Ml Oral.Susp) 30 ml PO DAILY PRN PRN Reason: Constipation Metoprolol Tartrate (Metoprolol Tartrate 25 Mg Tablet) 25 mg PO DAILY [facility]; Protocol Last Admin: 10/03/24 09:25 Dose: Not Given Documented By: VICKI Non-Admin Reason: Patient Refused Multivitamins/Vitamin C (Multivitamin Tablet) 1 tab PO DAILY [facility] Last Admin: 10/03/24 09:25 Dose: Not Given Documented By: VICKI Non-Admin Reason: Patient Refused Nicotine (Nicotine 21 Mg Patch.Td24) 21 mg TRANSDERMA DAILY PRN PRN Reason: smoking cessation Nicotine Polacrilex (Nicotine Polacrilex 2 Mg Gum) 4 mg BUCCAL Q2H PRN PRN Reason: Nicotine Cravings Patient Own Medication Thiothixene 5mg Tab 1 each PO TID@1200,1600,2100 [facility] Last Admin: 10/02/24 21:04 Dose: 1 each Documented By: VIDA Olanzapine (Olanzapine 10 Mg Vial) 10 mg IM DAILY PRN PRN Reason: if refuses PO Abilify 20mg Last Admin: 09/25/24 22:10 Dose: 10 mg Documented By: VIDA Olanzapine (Olanzapine 10 Mg Vial) 5 mg IM DAILY PRN PRN Reason: give if refuses Depakote Last Admin: 09/27/24 22:50 Dose: 5 mg Documented By: CECILLE Comments: R deltoid Torsemide (Torsemide 20 Mg Tablet) 100 mg PO [facility]; Protocol Last Admin: 10/03/24 06:47 Dose: Not Given Documented By: VIDA Non-Admin Reason: Patient Refused Trazodone HCl (Trazodone Hcl 50 Mg Tablet) 50 mg PO BEDTIME MRX1 PRN PRN Reason: Insomnia Labs 09/30/24 09:50 09/30/24 09:50 Assessment and Plan (1) Noncompliance by declining intervention or support: Status: Acute (2) ESRD needing dialysis: Status: Acute Plan 69-year-old male with a past medical history of end-stage renal disease on dialysis Monday, bipolar affective disorder, history of catatonia, AFib on Eliquis which he has been refusing, hypertension, anemia related to chronic kidney disease, aortic stenosis status post TAVR was admitted to [facility] originally with manic behaviors and psychosis, it is now being treated on M5 Right great toe wound MRI to rule out osteomyelitis Recently treated for cellulitis with antibiotics after dialysis Patient is at risk for deterioration of wound due to not allowing staff to care for wound. ESRD on HD Per last renal note has been compliant with dialysis treatments Will obtain Vascular consult. 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 He is placing a large bandaid to his toe. Patient is at risk for health deterioration due to non adherence. AFIB On Eliquis/aortic stenosis, status post TAVR Consistently refuses Eliquis, placing him at increased risk for thrombosis Consistently refuses metoprolol. Heart rates reviewed all under 100, blood pressure has been stable Hypertension Blood pressure currently stable, has not been taking his metoprolol. Thank you for allowing me to participate in the care of this patient. Will continue to follow as needed. Total time managing care of this patient today: 45 minutes. Quality Stroke Does the patient have a stroke diagnosis?: No VTE Prior VTE?: No VTE Risk Level:: Medical - low VTE Device Contraindication: Treatment Not Indicated VTE Drug Contraindication: Treatment Not Indicated
--- NOTE | 2024-10-03 10:20 | PC.NURSE ---
Pt refused skin assessment and wound care to right great toe.
--- NOTE | 2024-10-03 12:00 | PM.EVENT ---
Event Note Date of Service: 10/03/24 Event Note: MRI canceled, Three Phase Bone scan ordered. Time Spent With Patient Time: Total time managing care of this patient today ____ minutes.
--- NOTE | 2024-10-03 12:30 | P.PNPSI_ITS ---
Subjective Subjective Date of Service: 10/03/24 Reason For Visit: Unspecified Bipolar D/O Depression Anxiety Interim History: met with patient; discussed with team; reviewed chart Patient ignored documentation writer on approach. Family meeting with patient's , clinical social work therapist, PA hospitalist, nursing automobile leasing supervisor Discussed patient's foot and potential for osteomyelitis and treatment; discussed dialysis; discussed patient's continued disorganized thinking Patient's ambivalent about proceed; she says that even when her was overall clear minded, he talked about discontinuing dialysis. At this point she wants him to continue with dialysis and continues to give team permission to do it as necessary to treat him medically and psychiatrically including restraints and forced medications. Regarding infected toe, patient remains highly resistant to treatment, any kind of imaging, bone scan, and intermittently resistant antibiotics; patient does not understand the risks involved in refusing antibiotics however he does not want risk losing his toe or becoming ill. Currently Keeley Smith is discussing with Dr. Khan and hospitalist team regarding tx with abx Mental Status Exam Mental Status Exam Narrative: Pt is alert and oriented; behavior is typically pleasant on approach but resistant to care, today irritable; calm; patient is not in distress; dressed in casual attire, scruffy with marginal hygiene; mood is described as anxious and affect congruent; eye contact avoidant; Speech is with some latency; otherwise normal rate, volume and prosody and not pressured; no psychomotor agitation/retardation present; thought process can be goal directed but remains circular; Thought content is on not wanting dialysis, not wanting other medications; with delusional thinking; denies any SI/HI. Denies AVH though internally preoccupied. Patients insight and judgment impaired. Diagnostics Vital Signs (24Hr): Vital Signs - 24 hr 10/02/24 19:51 10/03/24 08:00 Temperature 97.5 F 97.5 F Pulse Rate 81 74 Respiratory Rate 18 Blood Pressure 104/57 L 107/59 L Pulse Oximetry 97 95 Oxygen Delivery Method Room Air Room Air Labs 09/30/24 09:50 09/30/24 09:50 Medications Medications Current Medications Acetaminophen (Acetaminophen 325 Mg Tablet) 650 mg PO Q6H PRN PRN Reason: Headache/Pain, Scale 1-10 Al Hydroxide/Mg Hydroxide (Magnesium Hydrox/Alum Hydrox 30 Ml Oral.Susp) 30 ml PO Q6H PRN PRN Reason: Heartburn/Nausea Apixaban (Apixaban 2.5 Mg Tablet) 2.5 mg PO BID REPLACED BY [facility] Last Admin: 10/03/24 09:25 Dose: Not Given Aripiprazole (Aripiprazole 20 Mg Tablet) 20 mg PO DAILY REPLACED BY [facility] Last Admin: 10/03/24 09:08 Dose: 20 mg Aripiprazole (Aripiprazole 5 Mg Tablet) 5 mg PO DAILY REPLACED BY [facility] Last Admin: 10/03/24 09:08 Dose: 5 mg Benztropine Mesylate (Benztropine Mesylate 1 Mg Tablet) 1 mg PO BEDTIME PRN PRN Reason: EPS Benztropine Mesylate (Benztropine Mesylate 1 Mg Tablet) 2 mg PO DAILY REPLACED BY [facility] Last Admin: 10/03/24 09:25 Dose: Not Given Bisacodyl (Bisacodyl 5 Mg Tablet.Dr) 5 mg PO BEDTIME PRN PRN Reason: Constipation Last Admin: 09/19/24 09:54 Dose: 5 mg Divalproex Sodium (Divalproex Sodium Er 500 Mg Tab.Er.24h) 1,000 mg PO BEDTIME REPLACED BY [facility] Last Admin: 10/02/24 21:04 Dose: 1,000 mg Haloperidol Lactate (Haloperidol Lactate 5 Mg/Ml Vial) 5 mg IM TID PRN PRN Reason: if refuses Thiothexine Magnesium Hydroxide (Milk Of Magnesia 30 Ml Oral.Susp) 30 ml PO DAILY PRN PRN Reason: Constipation Metoprolol Tartrate (Metoprolol Tartrate 25 Mg Tablet) 25 mg PO DAILY REPLACED BY [facility]; Protocol Last Admin: 10/03/24 09:25 Dose: Not Given Multivitamins/Vitamin C (Multivitamin Tablet) 1 tab PO DAILY REPLACED BY [facility] Last Admin: 10/03/24 09:25 Dose: Not Given Nicotine (Nicotine 21 Mg Patch.Td24) 21 mg TRANSDERMA DAILY PRN PRN Reason: smoking cessation Nicotine Polacrilex (Nicotine Polacrilex 2 Mg Gum) 4 mg BUCCAL Q2H PRN PRN Reason: Nicotine Cravings Patient Own Medication Thiothixene 5mg Tab 1 each PO TID@1200,1600,2100 REPLACED BY [facility] Last Admin: 10/02/24 21:04 Dose: 1 each Olanzapine (Olanzapine 10 Mg Vial) 10 mg IM DAILY PRN PRN Reason: if refuses PO Abilify 20mg Last Admin: 09/25/24 22:10 Dose: 10 mg Olanzapine (Olanzapine 10 Mg Vial) 5 mg IM DAILY PRN PRN Reason: give if refuses Depakote Last Admin: 09/27/24 22:50 Dose: 5 mg Torsemide (Torsemide 20 Mg Tablet) 100 mg PO Olman OSORIO; Protocol Last Admin: 10/03/24 06:47 Dose: Not Given Trazodone HCl (Trazodone Hcl 50 Mg Tablet) 50 mg PO BEDTIME MRX1 PRN PRN Reason: Insomnia Allergies Allergies Allergy/AdvReac Type Severity Reaction Status Date / Time No Known Allergies Allergy Verified 07/24/23 11:18 Assessment & Plan Assessment & Plan (1) Bipolar disorder: Status: Acute Code(s): F31.9 - Bipolar disorder, unspecified (2) Noncompliance by declining intervention or support: Status: Acute Code(s): Z91.199 - Patient's noncompliance with other medical treatment and regimen due to unspecified reason (3) ESRD needing dialysis: Status: Acute Code(s): N18.6 - End stage renal disease; Z99.2 - Dependence on renal dialysis Plan HPI: Patient is a 69 yo male with hx of bipolar/psychosis, catatonia, ESRD on Dialysis MWF, AFib on Eliquis, hypertension, anemia related to chronic kidney disease, aortic stenosis status post TAVR, was admitted from [facility] ED after his reported some manic behaviors as well as psychosis and refusal of medications and treatments. Patient refusing medication, labs and dialysis. Says he just wants to take a break from dialysis. He also says he does not want to and wants to live and seemed surprised to hear that refusing dialysis could end his life; however he continued to refuse, only relenting when it was explained to him that court affirmed healthcare proxy has paid a decision that he needs to get dialysis. Patient making some paranoid statements about the police, needing to be taking in or booked by the police... came to the unit and reports that he has not been taking his medications for at least a month and has been making paranoid statements, thinking someone stole a gun from his safe although he does not have a gun at all. HCP affirmed on 09/08/[address] [place] [address] Airport Maintenance Chief spoke with patient's and HCP Sujata... She says patient has been confused and disorganized for quite some time, not taking his medications. She agrees that he needs dialysis, to continue his medications, psychiatric and medical, and lab work and agrees that if need be patient is to be restrained in order to treat him including dialysis, medication and labs. Formulation/clinical reasoning: Patient is confused with paranoid delusions; does not have capacity to make medical decisions and healthcare proxy remains affirmed and necessary. Patient disorganized saying he wants to live but does not want dialysis and can not accept that without dialysis he will . Discussed case with , Dr. Pena who concur that when patient is on psychiatric medications and organized, he continues to want dialysis Hospital course: 09/09 patient grudgingly agreed to dialysis, understanding that it is to be enforced otherwise. Patient remains confused and with paranoid ideations; calling 911 multiple times, asking for there to be a check about guns...? Says he does not need medications...? He does not need dialysis.? Airport Maintenance Chief again thoroughly reviewed that dialysis is life saving for him; patient continues to purport that his kidneys function fine and he does not need dialysis; he does not want to at all but does not believe that he will without dialysis 09/10 Patient remains paranoid and delusional. Does not understand medical needs at all. Patient asked why he is on Eliquis; documentation writer explained history of AFib however patient says but I feel fine... And can not accept his need for any of his medications or that he has any medical illness, continuing to say but I feel fine... Again says he does not need dialysis. Asked also why he is being offered Depakote and Abilify and again denies that he has any mental illness and does not need these medications. Patient very much wants to talk to Dr. Pena -Airport Maintenance Chief discussed case with Dr. Pena who concurs that when patient is on psychiatric medications and stable he does not fact want to continue with dialysis and enjoys spending time with his family 09/11 Difficult day. Patient refused dialysis and despite numerous attempts to explain need for dialysis, court appointed healthcare proxy decision-making.... Patient was unable to understand, remains delusional and disorganized and does not understand his medical illnesses, continued to refuse medications and dialysis. Patient required staff and security to escort patient into wheelchair; he was escorted down to the dialysis without issue and was sitting in the dialysis chair but continued to refuse dialysis thinking he does not need it. His vibration technician Dr. Pena came to visit patient to also provide support and remind patient that he has been getting dialysis for years and when he is doing well, on his psychiatric medication, he affirms dialysis; patient remained refusal. Patient it 1 point grabbed the dialysis to being from the machine, was difficult to redirect and eventually became combative, assaulting staff and needed physical, chemical and four-point restraint for his safety, staff safety and for dialysis. After dialysis, patient a little more clear and accepted some medication without problem. -regarding AFib and patient's refusal of Eliquis, documentation writer discussed with Dr. Edge who explains risk is overall low for blood clot but that Lovenox would be acceptable if patient were not on dialysis (since medication can accumulate); patient could take aspirin but he refuses this as well. 09/12 calm today; agrees to dialysis tomorrow 09/13 dialysis willingly today though in height said he wished he did not; while in dialysis he did challenge continuing with it and did get p.r.n. Haldol and Ativan 09/15 Patient remains struggling with insight. Says he does not need psychiatric medications and asks again why he is prescribed Abilify and Depakote but does not accept reasoning. Says he wants to see if he will be okay without dialysis does not accept explanations to the contrary. Airport Maintenance Chief again appeal to him that conversation about medications and dialysis and whether not to continue, are reasonable conversations to have but that patient needs to be clear minded when doing so, thus the need for the psychiatric medications... Patient disagrees. This morning took Abilify but then spit it out. Continues to refuse Depakote Patient requires IM medication Zyprexa as a substitute for his refusal for Abilify and Depakote; patient has bipolar disorder and has a history of becoming floridly manic without mood stabilization; Haldol as substitute for thiothixene however patient is more amenable to taking 09/16 Today patient says willing to go to Dialysis and went without struggle, adherent to the procedure. Last night patient did take Depakote. Reportedly only slept 3 hours. Airport Maintenance Chief met with patient several times today as he continued to challenge his need for dialysis, his need for psychiatric medications and for other medications. Patient denies that he has a mental health illness or that he decompensates when going off psychiatric medications. In an effort to help explain patient's need for psychiatric medication, specifically the once he is on, Airport Maintenance Chief read to patient, excerpts from his past psychiatric admissions over the past 5 years which document his disorganization, paranoia and disorganized behaviors however patient said that none of that is true. Patient continues to say he wants to see if he will be okay without dialysis and is not open to hearing otherwise -patient normally on Abilify 500 mg t.i.d.; however immediate release Depakote may be removed more readily than extended release; switching to extended release Abilify and increasing to 1000 mg; also has patient struggles to adhere with medication regimen, it seems in patient's best interest that he only has to be faced with taking this medication once a day instead of 3 times a day Impression: Patient remains without capacity to make medical decisions for himself. Airport Maintenance Chief believes that if patient were to be discharged today, because he is currently without insight and with disorganized thinking, he would not take any medications and would not go to dialysis placing him in imminent risk for . 10/03 team/family meeting with patient's who is his affirmed healthcare proxy Discussed patient's foot and potential for osteomyelitis and treatment; discussed dialysis; discussed patient's continued disorganized thinking Patient's ambivalent about proceed; she says that even when her was overall clear minded, he talked about discontinuing dialysis. At this point she wants him to continue with dialysis and continues to give team permission to do it as necessary to treat him medically and psychiatrically including restraints and forced medications. Regarding infected toe, patient remains highly resistant to treatment, any kind of imaging, bone scan, and intermittently resistant antibiotics; patient does not understand the risks involved in refusing antibiotics however he does not want risk losing his toe or becoming ill. Currently Keeley Smith is discussing with Dr. Khan and hospitalist team regarding tx with abx Plan: Healthcare proxy signed CV healthcare proxy court affirmed who authorizes patient to be restrained physically and/or with medication as needed to treat him for dialysis, medications and labs; authorizes IM medication substitutes if patient refuses p.o. medications Q 15 minute checks Continue Abilify 25 mg daily: Court appointed HCP approves to give Zyprexa IM if refuses p.o. Abilify Continue Depakote ER 1000mg q.h.s. Court appointed HCP approves to give Zyprexa IM if refuses p.o. depakote 1. Great right toe infection; concern for osteomyelitis -hospitalist team, Infectious Disease team, vascular following MRI to rule out osteomyelitis Recently treated for cellulitis with antibiotics after dialysis Patient is at risk for deterioration of wound due to not allowing staff to care for wound. 2. ESRD: Dialyzes MWF at [facility] via LUE AVF Continue HD on MWF schedule AFIB On Eliquis/aortic stenosis, status post TAVR (Transcatheter Aortic Valve Replacement) Consistently refuses Eliquis, placing him at increased risk for thrombosis Hx of Hypertension; though BP's have been WNL; Consistently refuses metoprolol. 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
[2024-10-03] MEDS: THIOTHIXENE 5 MG 1 EACH PO ×3 (12:41→21:20)
--- NOTE | 2024-10-03 13:56 | PC.NURSE ---
Pt refused bone scan to r/o osteomyelitis of right great toe.
--- NOTE | 2024-10-03 14:13 | P.PNNP_ITS ---
Subjective Subjective Date of Service: 10/03/24 Interval history: met with patient; discussed with team; reviewed chart Physical Exam 2 Vital Signs: Vital Signs: Last Vital Signs Temp 97.5 F 10/03/24 08:00 Pulse 74 10/03/24 08:00 Resp 18 10/02/24 19:51 BP 107/59 L 10/03/24 08:00 Pulse Ox 95 10/03/24 08:00 O2 Del Method Room Air 10/03/24 08:00 cvs: s1s2 Rs; cta Abd; soft Objective Data Labs 09/30/24 09:50 09/30/24 09:50 Microbiology Microbiology Results: Microbiology 09/20/24 13:33 Blood - Venous Blood Culture - Final No growth after 5 days. 09/20/24 13:33 Blood - Venous Blood Culture - Final No growth after 5 days. Procedures Date of Service Date of Service: 10/03/24 Assessment & Plan Assessment and plan (1) ESRD needing dialysis: Status: Acute Plan Marco Holcomb is a 69 year old male with past medical history of ESRD on HD, bipolar disorder, Afib on Eliquis, s/p TAVR, hypertension, hyperlipidemia who presented to [facility] with erratic behavior over the past few weeks. Seen by Psych for decompensated bipolar illness in the inpt psych unit. Nephrology consulted for ESRD. 1. ESRD Dialyzes MWF at [facility] via LUE AVF 2. Hypertension / Volume Chronically pt is taking metoprolol 25 mg daily and torsemide 100 mg non-HD days 3. Nephrogenic Anemia 4. 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 Time Spent With Patient Time: Total time managing care of this patient today ____ minutes. Progress Note: Quality Stroke Does the patient have a stroke diagnosis?: No
--- NOTE | 2024-10-03 14:28 | PM.EVENT ---
Event Note Date of Service: 10/03/24 Event Note: Per staff patient is refusing any x-ray evaluation or lab work. Nephrology aware of possible need for prophylactic antibiotics for question osteomyelitis. Infectious Disease notified and consult placed for Dr. Lawton for further plan. Per meeting with the she wishes all efforts be made to treat the wound on his right great toe. Time Spent With Patient Time: Total time managing care of this patient today ____ minutes.
[2024-10-03 20:00] VITALS: BP 113/59; PULSE 82; TEMP 36.2; O2SAT 98
[2024-10-04 07:30] VITALS: BP 144/71; PULSE 73; RESP 18; TEMP 36.4; O2SAT 93
--- NOTE | 2024-10-04 08:26 | HO.PSYCHPN ---
Subjective Subjective Date of Service: 10/04/24 Reason For Visit: Unspecified Bipolar D/O Depression Anxiety Interim History: met with patient. Discussed with nursing. Had dialysis today. Aware from sign-out that there is an affirm healthcare proxy in place. Also aware that medications can be given against his will which also includes IV antibiotics if recommended. Regarding his right great toe, states he would like to leave things as they are and does not see there being any significant issue. Brought up the possibility of perhaps needing IV medications if recommended and dose being against his will if needed I do not know about that . otherwise denied feeling depressed. Very vague overall. No overt psychosis. Medication Compliance: Yes Side effects from medications: No Attending Groups: No Review of Systems Right great toe infection. Will follow recommendations as per Medicine. Dialysis Wednesdays and Fridays As per hospitalist documentation yesterday: per staff patient is refusing any x-ray evaluation or lab work. Nephrology aware of possible need for prophylactic antibiotics for question osteomyelitis. Infectious Disease notified and consult placed for Dr. Lawton for further plan. Per meeting with the she wishes all efforts be made to treat the wound on his right great toe. Mental Status Exam Mental Status Exam Narrative: Pt is alert and oriented; behavior is pleasant on approach but resistant to care; calm; patient is not in distress; dressed in casual attire with marginal hygiene; mood is described as calm and affect congruent; eye contact avoidant; Speech is with some latency; otherwise normal rate, volume and prosody and not pressured; no psychomotor agitation/retardation present; thought process is goal directed but can be circular; Thought content is on not wanting dialysis; with paranoid delusions; denies any SI/HI. Denies AVH though internally preoccupied. Patients insight and judgment impaired. Diagnostics Vital Signs (24Hr): Vital Signs - 24 hr 10/03/24 20:00 10/04/24 07:30 Temperature 97.1 F 97.6 F Pulse Rate 82 73 Respiratory Rate 18 Blood Pressure 113/59 L 144/71 H Pulse Oximetry 98 93 Oxygen Delivery Method Room Air Room Air Labs 09/30/24 09:50 09/30/24 09:50 Medications Medications Current Medications Acetaminophen (Acetaminophen 325 Mg Tablet) 650 mg PO Q6H PRN PRN Reason: Headache/Pain, Scale 1-10 Al Hydroxide/Mg Hydroxide (Magnesium Hydrox/Alum Hydrox 30 Ml Oral.Susp) 30 ml PO Q6H PRN PRN Reason: Heartburn/Nausea Apixaban (Apixaban 2.5 Mg Tablet) 2.5 mg PO BID [facility] Last Admin: 10/03/24 22:05 Dose: Not Given Aripiprazole (Aripiprazole 20 Mg Tablet) 20 mg PO DAILY [facility] Last Admin: 10/03/24 09:08 Dose: 20 mg Aripiprazole (Aripiprazole 5 Mg Tablet) 5 mg PO DAILY [facility] Last Admin: 10/03/24 09:08 Dose: 5 mg Benztropine Mesylate (Benztropine Mesylate 1 Mg Tablet) 1 mg PO BEDTIME PRN PRN Reason: EPS Benztropine Mesylate (Benztropine Mesylate 1 Mg Tablet) 2 mg PO DAILY [facility] Last Admin: 10/03/24 09:25 Dose: Not Given Bisacodyl (Bisacodyl 5 Mg Tablet.Dr) 5 mg PO BEDTIME PRN PRN Reason: Constipation Last Admin: 09/19/24 09:54 Dose: 5 mg Divalproex Sodium (Divalproex Sodium Er 500 Mg Tab.Er.24h) 1,000 mg PO BEDTIME [facility] Last Admin: 10/03/24 22:14 Dose: 1,000 mg Haloperidol Lactate (Haloperidol Lactate 5 Mg/Ml Vial) 5 mg IM TID PRN PRN Reason: if refuses Thiothexine Magnesium Hydroxide (Milk Of Magnesia 30 Ml Oral.Susp) 30 ml PO DAILY PRN PRN Reason: Constipation Metoprolol Tartrate (Metoprolol Tartrate 25 Mg Tablet) 25 mg PO DAILY [facility]; Protocol Last Admin: 10/03/24 09:25 Dose: Not Given Multivitamins/Vitamin C (Multivitamin Tablet) 1 tab PO DAILY [facility] Last Admin: 10/03/24 09:25 Dose: Not Given Nicotine (Nicotine 21 Mg Patch.Td24) 21 mg TRANSDERMA DAILY PRN PRN Reason: smoking cessation Nicotine Polacrilex (Nicotine Polacrilex 2 Mg Gum) 4 mg BUCCAL Q2H PRN PRN Reason: Nicotine Cravings Patient Own Medication Thiothixene 5mg Tab 1 each PO TID@1200,1600,2100 [facility] Last Admin: 10/03/24 21:20 Dose: 1 each Olanzapine (Olanzapine 10 Mg Vial) 10 mg IM DAILY PRN PRN Reason: if refuses PO Abilify 20mg Last Admin: 09/25/24 22:10 Dose: 10 mg Olanzapine (Olanzapine 10 Mg Vial) 5 mg IM DAILY PRN PRN Reason: give if refuses Depakote Last Admin: 09/27/24 22:50 Dose: 5 mg Torsemide (Torsemide 20 Mg Tablet) 100 mg PO KatlinhSa DEVON; Protocol Last Admin: 10/03/24 06:47 Dose: Not Given Trazodone HCl (Trazodone Hcl 50 Mg Tablet) 50 mg PO BEDTIME MRX1 PRN PRN Reason: Insomnia Allergies Allergies Allergy/AdvReac Type Severity Reaction Status Date / Time No Known Allergies Allergy Verified 07/24/23 11:18 Assessment & Plan Assessment & Plan (1) ESRD needing dialysis: Status: Acute Code(s): N18.6 - End stage renal disease; Z99.2 - Dependence on renal dialysis (2) Bipolar disorder: Status: Acute Code(s): F31.9 - Bipolar disorder, unspecified Assessment and Plan: HCP affirmed on 09/08/[address] [place] [address] Silk Soaker spoke with patient's and HCP Sujata... She says patient has been confused and disorganized for quite some time, not taking his medications. She agrees that he needs dialysis, to continue his medications, psychiatric and medical, and lab work and agrees that if need be patient is to be restrained in order to treat him including dialysis, medication and labs. Formulation/clinical reasoning: Patient is confused with paranoid delusions; does not have capacity to make medical decisions and healthcare proxy remains affirmed and necessary. Patient disorganized saying he wants to live but does not want dialysis and can not accept that without dialysis he will . Discussed case with , Dr. Pena who concur that when patient is on psychiatric medications and organized, he continues to want dialysis Hospital course: 09/09 patient grudgingly agreed to dialysis, understanding that it is to be enforced otherwise. Patient remains confused and with paranoid ideations; calling 911 multiple times, asking for there to be a check about guns...? Says he does not need medications...? He does not need dialysis.? Silk Soaker again thoroughly reviewed that dialysis is life saving for him; patient continues to purport that his kidneys function fine and he does not need dialysis; he does not want to at all but does not believe that he will without dialysis 09/10 Patient remains paranoid and delusional. Does not understand medical needs at all. Patient asked why he is on Eliquis; commercial real estate underwriter explained history of AFib however patient says but I feel fine... And can not accept his need for any of his medications or that he has any medical illness, continuing to say but I feel fine... Again says he does not need dialysis. Asked also why he is being offered Depakote and Abilify and again denies that he has any mental illness and does not need these medications. Patient very much wants to talk to Dr. Pena -Silk Soaker discussed case with Dr. Pena who concurs that when patient is on psychiatric medications and stable he does not fact want to continue with dialysis and enjoys spending time with his family 09/11 Difficult day. Patient refused dialysis and despite numerous attempts to explain need for dialysis, court appointed healthcare proxy decision-making.... Patient was unable to understand, remains delusional and disorganized and does not understand his medical illnesses, continued to refuse medications and dialysis. Patient required staff and security to escort patient into wheelchair; he was escorted down to the dialysis without issue and was sitting in the dialysis chair but continued to refuse dialysis thinking he does not need it. His clerk entry level Dr. Pena came to visit patient to also provide support and remind patient that he has been getting dialysis for years and when he is doing well, on his psychiatric medication, he affirms dialysis; patient remained refusal. Patient it 1 point grabbed the dialysis to being from the machine, was difficult to redirect and eventually became combative, assaulting staff and needed physical, chemical and four-point restraint for his safety, staff safety and for dialysis. After dialysis, patient a little more clear and accepted some medication without problem. -regarding AFib and patient's refusal of Eliquis, commercial real estate underwriter discussed with Dr. Edge who explains risk is overall low for blood clot but that Lovenox would be acceptable if patient were not on dialysis (since medication can accumulate); patient could take aspirin but he refuses this as well. 09/12 calm today; agrees to dialysis tomorrow 09/13 dialysis willingly today though in height said he wished he did not; while in dialysis he did challenge continuing with it and did get p.r.n. Haldol and Ativan 09/15 Patient remains struggling with insight. Says he does not need psychiatric medications and asks again why he is prescribed Abilify and Depakote but does not accept reasoning. Says he wants to see if he will be okay without dialysis does not accept explanations to the contrary. Silk Soaker again appeal to him that conversation about medications and dialysis and whether not to continue, are reasonable conversations to have but that patient needs to be clear minded when doing so, thus the need for the psychiatric medications... Patient disagrees. This morning took Abilify but then spit it out. Continues to refuse Depakote Patient requires IM medication Zyprexa as a substitute for his refusal for Abilify and Depakote; patient has bipolar disorder and has a history of becoming floridly manic without mood stabilization; Haldol as substitute for thiothixene however patient is more amenable to taking 09/16 Today patient says willing to go to Dialysis and went without struggle, adherent to the procedure. Last night patient did take Depakote. Reportedly only slept 3 hours. Silk Soaker met with patient several times today as he continued to challenge his need for dialysis, his need for psychiatric medications and for other medications. Patient denies that he has a mental health illness or that he decompensates when going off psychiatric medications. In an effort to help explain patient's need for psychiatric medication, specifically the once he is on, Silk Soaker read to patient, excerpts from his past psychiatric admissions over the past 5 years which document his disorganization, paranoia and disorganized behaviors however patient said that none of that is true. Patient continues to say he wants to see if he will be okay without dialysis and is not open to hearing otherwise -patient normally on Abilify 500 mg t.i.d.; however immediate release Depakote may be removed more readily than extended release; switching to extended release Abilify and increasing to 1000 mg; also has patient struggles to adhere with medication regimen, it seems in patient's best interest that he only has to be faced with taking this medication once a day instead of 3 times a day Impression: Patient remains without capacity to make medical decisions for himself. Silk Soaker believes that if patient were to be discharged today, because he is currently without insight and with disorganized thinking, he would not take any medications and would not go to dialysis placing him in imminent risk for . 10/03 team/family meeting with patient's who is his affirmed healthcare proxy Discussed patient's foot and potential for osteomyelitis and treatment; discussed dialysis; discussed patient's continued disorganized thinking Patient's ambivalent about proceed; she says that even when her was overall clear minded, he talked about discontinuing dialysis. At this point she wants him to continue with dialysis and continues to give team permission to do it as necessary to treat him medically and psychiatrically including restraints and forced medications. Regarding infected toe, patient remains highly resistant to treatment, any kind of imaging, bone scan, and intermittently resistant antibiotics; patient does not understand the risks involved in refusing antibiotics however he does not want risk losing his toe or becoming ill. Currently Keeley Smith is discussing with Dr. Khan and hospitalist team regarding tx with abx Plan: Healthcare proxy signed CV healthcare proxy court affirmed who authorizes patient to be restrained physically and/or with medication as needed to treat him for dialysis, medications and labs; authorizes IM medication substitutes if patient refuses p.o. medications Q 15 minute checks Continue Abilify 25 mg daily: Court appointed HCP approves to give Zyprexa IM if refuses p.o. Abilify Continue Depakote ER 1000mg q.h.s. Court appointed HCP approves to give Zyprexa IM if refuses p.o. depakote 1. Great right toe infection; concern for osteomyelitis -hospitalist team, Infectious Disease team, vascular following 2. ESRD: Dialyzes MWF 10/04/2024: No changes to psychotropic regimen. As per hospitalist documentation yesterday: per staff patient is refusing any x-ray evaluation or lab work. Nephrology aware of possible need for prophylactic antibiotics for question osteomyelitis. Infectious Disease notified and consult placed for Dr. Lawton for further plan. Per meeting with the she wishes all efforts be made to treat the wound on his right great toe. (3) Noncompliance by declining intervention or support: Status: Acute Code(s): Z91.199 - Patient's noncompliance with other medical treatment and regimen due to unspecified reason Plan Marco Holcomb is a 69 year old male with past medical history of ESRD on HD, bipolar disorder, Afib on Eliquis, s/p TAVR, hypertension, hyperlipidemia who presented to [facility] with erratic behavior over the past few weeks. Seen by Psych for decompensated bipolar illness in the inpt psych unit. Nephrology consulted for ESRD. 1. ESRD Dialyzes MWF at [facility] via LUE AVF 2. Hypertension / Volume Chronically pt is taking metoprolol 25 mg daily and torsemide 100 mg non-HD days 3. Nephrogenic Anemia 4. Mineral Bone Disease Recommendations: -cont HD 3x/wk using restraints and sedative meds as needed and rec by marco given he is not competent and his is Hcpxy - routine dialysis labs ordered - has pedal edema - however refused an extra UF treatment - now with soft bp's advised scientific diver to try trendlenberg position for HD , will help with mobilizing edema - now with leg ulcer- hoever pt refusing bone scan - he refused exam of his foot today - abx per primary team - this has to be empiric as unable to scan the foot. Reason for continued inpatient stay Substantial Risk for: inability to function Time Spent With Patient Time: Total time managing care of this patient today ____ minutes.
[2024-10-04] MEDS: THIOTHIXENE 5 MG 1 EACH PO ×3 (11:33→21:14)
--- NOTE | 2024-10-04 12:06 | PC.NURSE ---
Pt returned from dialysis at 11:25. Pt refused VS upon return to unit. Scheduled medications offered to patient after returning to unit. Pt hesitant to take medications. After much encouragement pt was only agreeable to taking Abilify and Thiothixene. Pt refused skin assessment/wound care to right great toe. Pt also refused EKG. Covering provider Dr. Mccarthy made aware of pt's refusals.
[2024-10-04 20:00] VITALS: BP 112/59; PULSE 69; RESP 15; TEMP 36.4; O2SAT 98
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
[2024-10-05 08:00] VITALS: BP 104/66; PULSE 79; RESP 18; TEMP 36.2
[2024-10-05] MEDS: THIOTHIXENE 5 MG 1 EACH PO ×3 (11:37→20:58)
[2024-10-05 19:50] VITALS: BP 96/54; PULSE 74; RESP 15; TEMP 36.3; O2SAT 99
[2024-10-06 07:50] VITALS: BP 110/57; PULSE 67; RESP 16; TEMP 36.4; O2SAT 96
--- NOTE | 2024-10-06 08:05 | PC.NURSE ---
pt refused blood work this morning
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
--- NOTE | 2024-10-06 12:18 | PM.EVENT ---
Event Note Date of Service: 10/06/24 Event Note: Attempted to see pt on M5 for evaluation of right great toe wound concerning for osteomyelitis. Pt repeatedly refused physical examination, stating ?no, it's all right?. ID and vascular surgery consults still pending, and pt has yet to be administered IV antibiotics. Time Spent With Patient Time: Total time managing care of this patient today ____ minutes.
[2024-10-06] MEDS: THIOTHIXENE 5 MG 1 EACH PO ×3 (12:19→20:36)
[2024-10-06 19:53] VITALS: BP 135/58; PULSE 68; RESP 15; TEMP 36.3; O2SAT 98
--- NOTE | 2024-10-07 08:54 | PC.NURSE ---
Pt asked about having EKG today by this ad copy writer, and he refused.
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
--- NOTE | 2024-10-07 13:07 | P.EN_ITS ---
Event Note Date of Service: 10/07/24 Event Note: This short story writer consulted with Dr. Lawton who recommended a trial of antibiotics for suspected osteomyelitis based on appearance of toe. Patient has been refusing all imaging and blood work to confirm. Discussed with Dr. Khan who recommends [address] Pena updated regarding plan. Time Spent With Patient Time: Total time managing care of this patient today ____ minutes.
[2024-10-07] MEDS: THIOTHIXENE 5 MG 1 EACH PO ×2 (17:16→21:59)
[2024-10-08 08:43] VITALS: RESP 16
[2024-10-08] MEDS: OLANZapine 10 MG VIAL IM (10:05)
[2024-10-08] MEDS: THIOTHIXENE 5 MG 1 EACH PO ×3 (12:13→21:08)
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
[2024-10-09 08:42] LABS: Estimated Glomerular Filt Rate 5
--- NOTE | 2024-10-09 10:51 | PM.EVENT ---
Event Note Date of Service: 10/09/24 Event Note: Discussed Vancomycin administration with renal team, orders entered for random vanco levels that should be drawn prior to dialysis treatments. Patient should then receive his vancomycin dose after dialysis treatment completed every Monday. Time Spent With Patient Time: Total time managing care of this patient today ____ minutes.
[2024-10-09] MEDS: THIOTHIXENE 5 MG 1 EACH PO ×3 (14:10→21:04)
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
[2024-10-10 08:00] VITALS: BP 103/58; PULSE 75; RESP 16; TEMP 36.5; O2SAT 96
[2024-10-10] MEDS: THIOTHIXENE 5 MG 1 EACH PO ×3 (12:48→21:22)
--- NOTE | 2024-10-10 12:56 | HO.WOUND ---
Wound Consult: Follow up and chart review Wound consult not attempted today - however chart review reveals patient continues to refuse treatment and topical wound care. Chart review reveals IV antibiotics are pending to treat suspected osteo - recommendations made per Dr. Lawton and Dr. Khan followed by Hospitalist Keeley Smith NP. Will continue to loosely follow along chart and attempt reassessment of right great toe when patient is agreeable. Details from last assessment on 10/02/24: 69yr old? male admitted to [facility] on 09/05/24 17:25- See progress notes and H&P for detailed history.? Wound consult placed for Right Great Toe wound - per staff and provider patient is now agreeable to assessment by this film writer and topical recommendations. Unfortunately arrival to bedside patient remains very resistant to topical recommendations and assessment. He did not allow me to do a full assessment but was willing to allow for me to visualize the wound. There is a small area that lifts and I would have preferred to probe for depth but the patient refused. There is concern for osteo given the close proximity to bone and area that appears to probe. I would recommend imaging to rule out osteo development given he is resistant to full assessment. I recommend Durafiber AG to allow for moisture management since the wound does appear to remains with significant drainage, he refused and reported he would only want Bacitracin used - I told him this was contraindicated since the toe alreadfy has excess moisture he was not agreeable to another option. There is concern if Bacitracin is used this will only increase the moisture content which will likely deteriorate the tissue further. I recommend reeducation by staff and providers for Durafiber Ag for moisture management and antimicrobial properties. Keeley Smith NP aware not able to assess. 09/20/24 10/02/24 10/02/24 10/02/24 Right Great Toe Etiology: ??Unclear Etiology Wound Bed: macerated but may intact be a pocket - will need in person assessment Drainage / Odor: serosang with some chan drainage - foul odor noted Edges: ? macerated and rolled Mariya wound: Mild swelling noted at ankle red erythema and nail bed discoloration Goals of Treatment: ? Recommend durafiber for moisture management Recommend provider follow up on imaging for osteo and or abscess. Recommendations: Right Great Toe - Cleanse with ns pat dry or wash with routine showering with soap and water. Pat dry. Cover open wound bed with Durafiber AG followed by bandaid. May change every other day or daily if showering daily. Re-consult wound care Nurse for wound deterioration or wound changes.
--- NOTE | 2024-10-10 21:35 | HO.PSYCHPN ---
Subjective Subjective Date of Service: 10/10/24 Reason For Visit: Unspecified Bipolar D/O Depression Anxiety Interim History: met with pt; discussed with team; discussed with pt's visiting; he remains w/out insight asking for discharge, no insight at all; does not remember things he's recently said Mental Status Exam Mental Status Exam Narrative: Pt is alert and oriented; behavior is pleasant on approach but resistant to care; calm; patient is not in distress; dressed in hospital pants, Tshirt, with marginal hygiene; mood is described as depressed and affect constricted; eye contact avoidant; Speech is normal rate, volume and prosody and not pressured; psychomotor retardation present; thought process is goal directed but can be circular; Thought content is on not wanting treatment, discharge; no expressed paranoid delusions; denies any SI/HI. Denies AVH; does not appear to be internally preoccupied. Patients insight and judgment impaired. Diagnostics Vital Signs (24Hr): Vital Signs - 24 hr 10/10/24 08:00 Temperature 97.7 F Pulse Rate 75 Respiratory Rate 16 Blood Pressure 103/58 L Pulse Oximetry 96 Oxygen Delivery Method Room Air Labs 09/30/24 09:50 10/09/24 08:00 Labs: Laboratory Results - last 48 hr 10/09/24 08:00 Hold Purple Top SEE NOTE Creatinine 9.77 H* Estim Creat Clear Calc TNP Estimated GFR 5 Medications Medications Current Medications Acetaminophen (Acetaminophen 325 Mg Tablet) 650 mg PO Q6H PRN PRN Reason: Headache/Pain, Scale 1-10 Al Hydroxide/Mg Hydroxide (Magnesium Hydrox/Alum Hydrox 30 Ml Oral.Susp) 30 ml PO Q6H PRN PRN Reason: Heartburn/Nausea Apixaban (Apixaban 2.5 Mg Tablet) 2.5 mg PO BID [facility] Last Admin: 10/10/24 21:19 Dose: Not Given Aripiprazole (Aripiprazole 20 Mg Tablet) 20 mg PO DAILY [facility] Last Admin: 10/10/24 09:10 Dose: 20 mg Aripiprazole (Aripiprazole 5 Mg Tablet) 5 mg PO DAILY [facility] Last Admin: 10/10/24 09:10 Dose: 5 mg Benztropine Mesylate (Benztropine Mesylate 1 Mg Tablet) 1 mg PO BEDTIME PRN PRN Reason: EPS Benztropine Mesylate (Benztropine Mesylate 1 Mg Tablet) 2 mg PO DAILY [facility] Last Admin: 10/10/24 09:11 Dose: Not Given Bisacodyl (Bisacodyl 5 Mg Tablet.Dr) 5 mg PO BEDTIME PRN PRN Reason: Constipation Last Admin: 09/19/24 09:54 Dose: 5 mg Divalproex Sodium (Divalproex Sodium Er 500 Mg Tab.Er.24h) 1,000 mg PO BEDTIME [facility] Last Admin: 10/09/24 21:54 Dose: 1,000 mg Haloperidol Lactate (Haloperidol Lactate 5 Mg/Ml Vial) 5 mg IM TID PRN PRN Reason: if refuses Thiothexine Vancomycin HCl 500 mg/ Sodium (Chloride) 110 mls @ 110 mls/hr IV ONCE ONE Stop: 10/07/24 16:59 Magnesium Hydroxide (Milk Of Magnesia 30 Ml Oral.Susp) 30 ml PO DAILY PRN PRN Reason: Constipation Metoprolol Tartrate (Metoprolol Tartrate 25 Mg Tablet) 25 mg PO DAILY [facility]; Protocol Last Admin: 10/10/24 09:11 Dose: Not Given Multivitamins/Vitamin C (Multivitamin Tablet) 1 tab PO DAILY [facility] Last Admin: 10/10/24 09:12 Dose: Not Given Nicotine (Nicotine 21 Mg Patch.Td24) 21 mg TRANSDERMA DAILY PRN PRN Reason: smoking cessation Nicotine Polacrilex (Nicotine Polacrilex 2 Mg Gum) 4 mg BUCCAL Q2H PRN PRN Reason: Nicotine Cravings Patient Own Medication Thiothixene 5mg Tab 1 each PO TID@1200,1600,2100 [facility] Last Admin: 10/10/24 21:22 Dose: 1 each Olanzapine (Olanzapine 10 Mg Vial) 10 mg IM DAILY PRN PRN Reason: if refuses PO Abilify 20mg Last Admin: 10/08/24 10:05 Dose: 10 mg Olanzapine (Olanzapine 10 Mg Vial) 5 mg IM DAILY PRN PRN Reason: give if refuses Depakote Last Admin: 09/27/24 22:50 Dose: 5 mg Pharmacy Consult (Consult Rx Vancomycin Dosing) 1 each MISCELLANE DAILY PRN PRN Reason: Consult order Torsemide (Torsemide 20 Mg Tablet) 100 mg PO TuThSa [facility]; Protocol Last Admin: 10/10/24 06:57 Dose: Not Given Trazodone HCl (Trazodone Hcl 50 Mg Tablet) 50 mg PO BEDTIME MRX1 PRN PRN Reason: Insomnia Allergies Allergies Allergy/AdvReac Type Severity Reaction Status Date / Time No Known Allergies Allergy Verified 07/24/23 11:18 Assessment & Plan Assessment & Plan (1) Bipolar disorder: Status: Acute Code(s): F31.9 - Bipolar disorder, unspecified (2) Noncompliance by declining intervention or support: Status: Acute Code(s): Z91.199 - Patient's noncompliance with other medical treatment and regimen due to unspecified reason (3) ESRD needing dialysis: Status: Acute Code(s): N18.6 - End stage renal disease; Z99.2 - Dependence on renal dialysis Plan HPI: Patient is a 69 yo male with hx of bipolar/psychosis, catatonia, ESRD on Dialysis MWF, AFib on Eliquis, hypertension, anemia related to chronic kidney disease, aortic stenosis status post TAVR, was admitted from [facility] ED after his reported some manic behaviors as well as psychosis and refusal of medications and treatments. Patient refusing medication, labs and dialysis. Says he just wants to take a break from dialysis. He also says he does not want to and wants to live and seemed surprised to hear that refusing dialysis could end his life; however he continued to refuse, only relenting when it was explained to him that court affirmed healthcare proxy has paid a decision that he needs to get dialysis. Patient making some paranoid statements about the police, needing to be taking in or booked by the police... came to the unit and reports that he has not been taking his medications for at least a month and has been making paranoid statements, thinking someone stole a gun from his safe although he does not have a gun at all. HCP affirmed on 09/08[address] Dumper Operator spoke with patient's and HCP Sujata... She says patient has been confused and disorganized for quite some time, not taking his medications. She agrees that he needs dialysis, to continue his medications, psychiatric and medical, and lab work and agrees that if need be patient is to be restrained in order to treat him including dialysis, medication and labs. Formulation/clinical reasoning: Patient is confused with paranoid delusions; does not have capacity to make medical decisions and healthcare proxy remains affirmed and necessary. Patient disorganized saying he wants to live but does not want dialysis and can not accept that without dialysis he will . Discussed case with , Dr. Pena who concur that when patient is on psychiatric medications and organized, he continues to want dialysis Hospital course: 09/09 patient grudgingly agreed to dialysis, understanding that it is to be enforced otherwise. Patient remains confused and with paranoid ideations; calling 911 multiple times, asking for there to be a check about guns...? Says he does not need medications...? He does not need dialysis.? Dumper Operator again thoroughly reviewed that dialysis is life saving for him; patient continues to purport that his kidneys function fine and he does not need dialysis; he does not want to at all but does not believe that he will without dialysis 09/10 Patient remains paranoid and delusional. Does not understand medical needs at all. Patient asked why he is on Eliquis; functional tester typewriters explained history of AFib however patient says but I feel fine... And can not accept his need for any of his medications or that he has any medical illness, continuing to say but I feel fine... Again says he does not need dialysis. Asked also why he is being offered Depakote and Abilify and again denies that he has any mental illness and does not need these medications. Patient very much wants to talk to Dr. Pena -Dumper Operator discussed case with Dr. Pena who concurs that when patient is on psychiatric medications and stable he does not fact want to continue with dialysis and enjoys spending time with his family 09/11 Difficult day. Patient refused dialysis and despite numerous attempts to explain need for dialysis, court appointed healthcare proxy decision-making.... Patient was unable to understand, remains delusional and disorganized and does not understand his medical illnesses, continued to refuse medications and dialysis. Patient required staff and security to escort patient into wheelchair; he was escorted down to the dialysis without issue and was sitting in the dialysis chair but continued to refuse dialysis thinking he does not need it. His grade recorder Dr. Pena came to visit patient to also provide support and remind patient that he has been getting dialysis for years and when he is doing well, on his psychiatric medication, he affirms dialysis; patient remained refusal. Patient it 1 point grabbed the dialysis to being from the machine, was difficult to redirect and eventually became combative, assaulting staff and needed physical, chemical and four-point restraint for his safety, staff safety and for dialysis. After dialysis, patient a little more clear and accepted some medication without problem. -regarding AFib and patient's refusal of Eliquis, functional tester typewriters discussed with Dr. Edge who explains risk is overall low for blood clot but that Lovenox would be acceptable if patient were not on dialysis (since medication can accumulate); patient could take aspirin but he refuses this as well. 09/12 calm today; agrees to dialysis tomorrow 09/13 dialysis willingly today though in height said he wished he did not; while in dialysis he did challenge continuing with it and did get p.r.n. Haldol and Ativan 09/15 Patient remains struggling with insight. Says he does not need psychiatric medications and asks again why he is prescribed Abilify and Depakote but does not accept reasoning. Says he wants to see if he will be okay without dialysis does not accept explanations to the contrary. Dumper Operator again appeal to him that conversation about medications and dialysis and whether not to continue, are reasonable conversations to have but that patient needs to be clear minded when doing so, thus the need for the psychiatric medications... Patient disagrees. This morning took Abilify but then spit it out. Continues to refuse Depakote Patient requires IM medication Zyprexa as a substitute for his refusal for Abilify and Depakote; patient has bipolar disorder and has a history of becoming floridly manic without mood stabilization; Haldol as substitute for thiothixene however patient is more amenable to taking 09/16 Today patient says willing to go to Dialysis and went without struggle, adherent to the procedure. Last night patient did take Depakote. Reportedly only slept 3 hours. Dumper Operator met with patient several times today as he continued to challenge his need for dialysis, his need for psychiatric medications and for other medications. Patient denies that he has a mental health illness or that he decompensates when going off psychiatric medications. In an effort to help explain patient's need for psychiatric medication, specifically the once he is on, Dumper Operator read to patient, excerpts from his past psychiatric admissions over the past 5 years which document his disorganization, paranoia and disorganized behaviors however patient said that none of that is true. Patient continues to say he wants to see if he will be okay without dialysis and is not open to hearing otherwise -patient normally on Abilify 500 mg t.i.d.; however immediate release Depakote may be removed more readily than extended release; switching to extended release Abilify and increasing to 1000 mg; also has patient struggles to adhere with medication regimen, it seems in patient's best interest that he only has to be faced with taking this medication once a day instead of 3 times a day Impression: Patient remains without capacity to make medical decisions for himself. Dumper Operator believes that if patient were to be discharged today, because he is currently without insight and with disorganized thinking, he would not take any medications and would not go to dialysis placing him in imminent risk for . 10/03 team/family meeting with patient's who is his affirmed healthcare proxy Discussed patient's foot and potential for osteomyelitis and treatment; discussed dialysis; discussed patient's continued disorganized thinking Patient's ambivalent about proceed; she says that even when her was overall clear minded, he talked about discontinuing dialysis. At this point she wants him to continue with dialysis and continues to give team permission to do it as necessary to treat him medically and psychiatrically including restraints and forced medications. Regarding infected toe, patient remains highly resistant to treatment, any kind of imaging, bone scan, and intermittently resistant antibiotics; patient does not understand the risks involved in refusing antibiotics however he does not want risk losing his toe or becoming ill. Currently Keeley Smith is discussing with Dr. Khan and hospitalist team regarding tx with abx 10/07 pt continues to refuse abx; functional tester typewriters discussed with pt at length toe infections and risks of not getting abx however patient cannot understand that his toe is infected; he thinks it's just a blister and cannot appreciate the risks of not getting abx. -not eating much -seems depressed 10/08 no insight; seems depressed and pt not eating much; discussed how nutrition is important to help heal infection; refuses Ensure. Maybe accepting need for abx? 10/09 again does not think toe infected and does not need abx; explained that HCP orders -depressed -wondering if he would benefit from ECT 10/10 pt's visiting; he remains w/out insight asking for discharge, no insight at all; does not remember things he's recently said Plan: Healthcare proxy signed CV healthcare proxy court affirmed who authorizes patient to be restrained physically and/or with medication as needed to treat him for dialysis, medications and labs; authorizes IM medication substitutes if patient refuses p.o. medications Q 15 minute checks Continue Abilify 25 mg daily: Court appointed HCP approves to give Zyprexa IM if refuses p.o. Abilify Continue Depakote ER 1000mg q.h.s. Court appointed HCP approves to give Zyprexa IM if refuses p.o. depakote Continue Thiothiexene; IM backup if refuses pt refuses eloquis, metoprolol 1. Great right toe infection; concern for osteomyelitis -Vanco during diaylsis -hospitalist team, Infectious Disease team, vascular following MRI to rule out osteomyelitis Recently treated for cellulitis with antibiotics after dialysis Patient is at risk for deterioration of wound due to not allowing staff to care for wound. 2. ESRD: Dialyzes MWF at [facility] via LUE AVF Continue HD on MWF schedule AFIB On Eliquis/aortic stenosis, status post TAVR (Transcatheter Aortic Valve Replacement) Consistently refuses Eliquis, placing him at increased risk for thrombosis Hx of Hypertension; though BP's have been WNL; Consistently refuses metoprolol. 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
[2024-10-11 08:16] VITALS: BP 107/68; PULSE 66; RESP 16; TEMP 36.7; O2SAT 97
--- NOTE | 2024-10-11 10:32 | HE.PHANOTE ---
Re: Vanco Pt on M5, and on dialysis. Per Dr. Frankel pt will receive vanco while in dialysis. Coordinated with lab and dialysis team to draw trough from port in dialysis prior to starting dialysis. Utilized trough from 10/11 to dose 10/14. Pt's trough returned at 15.7, pt will be given 1,000mg for 10/11 & 10/14. Pt will have trough pulled 10/14 prior to dialysis to dose 10/16.
[2024-10-11] MEDS: THIOTHIXENE 5 MG 1 EACH PO ×3 (13:32→21:01)
[2024-10-11] MEDS: OLANZapine 10 MG VIAL IM (13:48)
--- NOTE | 2024-10-11 15:52 | PM.EVENT ---
Event Note Date of Service: 10/11/24 Event Note: I had attempted to interview and examine the patient He is refusing to answer questions He says he does not want to be seen I will try again over the weekend Time Spent With Patient Time: Total time managing care of this patient today ____ minutes.
--- NOTE | 2024-10-11 18:34 | PM.PNNEP ---
Subjective Subjective Date of Service: 10/07/24 Interval history: Seen and examiend during HD on 10/07 Physical Exam Vital Signs: Vital Signs: Last Vital Signs Temp 98.1 F 10/11/24 08:16 Pulse 66 10/11/24 08:16 Resp 16 10/11/24 08:16 BP 107/68 10/11/24 08:16 Pulse Ox 97 10/11/24 08:16 O2 Del Method Room Air 10/11/24 08:16 Const: General: cooperative HEENT: Head: Yes normal to inspection Face and sinus: Yes normal facial exam Mouth: Normal oral and palatal mucosa present Teeth and gingiva: dentition normal Eyes: General: appearance normal, both eyes and all related structures Pupils: Equal, round and reactive pupils present Resp: Effort & Inspection: normal respiratory effort Cardio: Rate: regular rate Rhythm: regular rhythm GI: Palpation (GI): Soft to palpation and nontender : General: Yes no CVA tenderness Back/Spine/Pelvis: Back: no CVA tenderness Skin: General skin exam: no rashes or lesions noted Neuro: General: moves all extremities Cranial nerves: Yes Equal, round and reactive pupils present Extrem: Other: right toe red DIP pulses intact Psych: Appearance: grossly normal Objective Data Labs 09/30/24 09:50 10/09/24 08:00 Labs: Laboratory Results - last 24 hr 10/11/24 09:30 Random Vancomycin 15.7 Microbiology Microbiology Results: Microbiology 09/20/24 13:33 Blood - Venous Blood Culture - Final No growth after 5 days. 09/20/24 13:33 Blood - Venous Blood Culture - Final No growth after 5 days. Procedures Date of Service Date of Service: 10/11/24 Assessment & Plan Assessment and plan (1) ESRD needing dialysis: Status: Acute Plan Marco Holcomb is a 69 year old male with past medical history of ESRD on HD, bipolar disorder, Afib on Eliquis, s/p TAVR, hypertension, hyperlipidemia who presented to [facility] [place] with erratic behavior over the past few weeks. Seen by Psych for decompensated bipolar illness in the inpt psych unit. Nephrology consulted for ESRD. 1. ESRD Dialyzes MWF at [facility] via LUE AVF 2. Hypertension / Volume Chronically pt is taking metoprolol 25 mg daily and torsemide 100 mg non-HD days 3. Nephrogenic Anemia 4. Mineral Bone Disease Recommendations: -cont HD 3x/wk using restraints and sedative meds as needed and rec by marco given he is not competent and his is Hcpxy - routine dialysis labs ordered need to be oredered --will draw them at next HD treatemnt - has pedal edema - however refused an extra UF treatment - now with soft bp's advised prism inspector to try trendlenberg position for HD , will help with mobilizing edema - now with leg ulcer- hoever pt refusing bone scan - he refused exam of his foot today - abx per primary team - this has to be empiric as unable to scan the foot. Will follow w team Time Spent With Patient Time: Total time managing care of this patient today ____ minutes. Progress Note: Quality Stroke Does the patient have a stroke diagnosis?: No
--- NOTE | 2024-10-11 18:38 | W.PM.DNNEP ---
Subjective Subjective Date of Service: 10/11/24 This patient was seen during dialysis. Interval history: Seen and examiend during HD on 10/11 Physical Exam Vital Signs: Vital Signs: Last Vital Signs Temp 98.1 F 10/11/24 08:16 Pulse 66 10/11/24 08:16 Resp 16 10/11/24 08:16 BP 107/68 10/11/24 08:16 Pulse Ox 97 10/11/24 08:16 O2 Del Method Room Air 10/11/24 08:16 Const: General: cooperative HEENT: Head: Yes normal to inspection Face and sinus: Yes normal facial exam Mouth: Normal oral and palatal mucosa present Teeth and gingiva: dentition normal Eyes: General: appearance normal, both eyes and all related structures Pupils: Equal, round and reactive pupils present Resp: Effort & Inspection: normal respiratory effort Cardio: Rate: regular rate Rhythm: regular rhythm GI: Palpation (GI): Soft to palpation and nontender : General: Yes no CVA tenderness Back/Spine/Pelvis: Back: no CVA tenderness Skin: General skin exam: no rashes or lesions noted Neuro: General: moves all extremities Cranial nerves: Yes Equal, round and reactive pupils present Extrem: Other: right toe red DIP pulses intact Psych: Appearance: grossly normal Assessment & Plan Assessment and plan (1) ESRD needing dialysis: Status: Acute Plan Marco Holcomb is a 69 year old male with past medical history of ESRD on HD, bipolar disorder, Afib on Eliquis, s/p TAVR, hypertension, hyperlipidemia who presented to [facility] [place] with erratic behavior over the past few weeks. Seen by Psych for decompensated bipolar illness in the inpt psych unit. Nephrology consulted for ESRD. 1. ESRD Dialyzes MWF at [facility] via LUE AVF 2. Hypertension / Volume Chronically pt is taking metoprolol 25 mg daily and torsemide 100 mg non-HD days 3. Nephrogenic Anemia 4. Mineral Bone Disease Recommendations: -cont HD 3x/wk using restraints and sedative meds as needed and rec by marco given he is not competent and his is Hcpxy - routine dialysis labs ordered need to be oredered --will draw them at next HD treatemnt - has pedal edema - however refused an extra UF treatment - now with soft bp's advised set decorator to try trendlenberg position for HD , will help with mobilizing edema - now with leg ulcer- hoever pt refusing bone scan - he refused exam of his foot today - abx per primary team - this has to be empiric as unable to scan the foot. Labs not drawn--will again request labs be drawn at dialysis on 10/14 and will also incr HD time to 3.5 hrs Will follow w team Time Spent With Patient Time: Total time managing care of this patient today ____ minutes. Procedures Date of Service Date of Service: 10/11/24
[2024-10-11 19:51] VITALS: BP 118/66; PULSE 84; TEMP 36.3; O2SAT 98
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
[2024-10-12 06:32] VITALS: BP 106/64; PULSE 78; O2SAT 96
[2024-10-12 08:10] VITALS: BP 118/63; PULSE 63; RESP 18; TEMP 36.4; O2SAT 95
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
[2024-10-12] MEDS: THIOTHIXENE 5 MG 1 EACH PO ×3 (12:49→21:32)
[2024-10-12 19:37] VITALS: BP 109/60; PULSE 70; TEMP 36.4; O2SAT 97
[2024-10-13 08:00] VITALS: BP 115/66; PULSE 63; RESP 18; TEMP 36.4; O2SAT 97
[2024-10-13 10:18] VITALS: BP 115/66; PULSE 63
[2024-10-13] MEDS: THIOTHIXENE 5 MG 1 EACH PO ×2 (16:16→21:27)
[2024-10-13 19:53] VITALS: RESP 15
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
[2024-10-14 08:00] VITALS: BP 135/58; PULSE 61; RESP 18; TEMP 36.4; O2SAT 98
--- NOTE | 2024-10-14 09:57 | HO.PSYCHPN ---
Subjective Subjective Date of Service: 10/14/24 Reason For Visit: Unspecified Bipolar D/O Depression Anxiety Interim History: met with patient; discussed with team says he does not think his toe is infected; he said it's getting red and thinks it's because he's been getting antibiotics; mortgage or loan underwriter tried to explain his infection, but pt continued to believe he has no infection. pt did allow surgeon to look at his toe Mental Status Exam Mental Status Exam Narrative: Pt is alert and oriented; behavior is pleasant on approach but resistant to care; calm; patient is not in distress; dressed in hospital pants, Tshirt, with marginal hygiene; mood is described as depressed and affect constricted; eye contact avoidant; Speech is normal rate, volume and prosody and not pressured; psychomotor retardation present; thought process is goal directed but can be circular; Thought content is on not wanting treatment, discharge; no expressed paranoid delusions; denies any SI/HI. Denies AVH; does not appear to be internally preoccupied. Patients insight and judgment impaired. Diagnostics Vital Signs (24Hr): Vital Signs - 24 hr 10/13/24 10:18 10/13/24 19:53 10/14/24 08:00 Temperature 97.5 F Pulse Rate 63 61 Respiratory Rate 15 18 Blood Pressure 115/66 135/58 L Pulse Oximetry 98 Oxygen Delivery Method Room Air Labs 09/30/24 09:50 10/09/24 08:00 Medications Medications Current Medications Acetaminophen (Acetaminophen 325 Mg Tablet) 650 mg PO Q6H PRN PRN Reason: Headache/Pain, Scale 1-10 Al Hydroxide/Mg Hydroxide (Magnesium Hydrox/Alum Hydrox 30 Ml Oral.Susp) 30 ml PO Q6H PRN PRN Reason: Heartburn/Nausea Apixaban (Apixaban 2.5 Mg Tablet) 2.5 mg PO BID [facility] Last Admin: 10/13/24 22:17 Dose: Not Given Aripiprazole (Aripiprazole 20 Mg Tablet) 20 mg PO DAILY [facility] Last Admin: 10/13/24 09:34 Dose: 20 mg Aripiprazole (Aripiprazole 5 Mg Tablet) 5 mg PO DAILY [facility] Last Admin: 10/13/24 09:34 Dose: 5 mg Benztropine Mesylate (Benztropine Mesylate 1 Mg Tablet) 1 mg PO BEDTIME PRN PRN Reason: EPS Benztropine Mesylate (Benztropine Mesylate 1 Mg Tablet) 2 mg PO DAILY [facility] Last Admin: 10/13/24 10:18 Dose: Not Given Bisacodyl (Bisacodyl 5 Mg Tablet.Dr) 5 mg PO BEDTIME PRN PRN Reason: Constipation Last Admin: 09/19/24 09:54 Dose: 5 mg Divalproex Sodium (Divalproex Sodium Er 500 Mg Tab.Er.24h) 1,000 mg PO BEDTIME [facility] Last Admin: 10/13/24 22:33 Dose: 1,000 mg Haloperidol Lactate (Haloperidol Lactate 5 Mg/Ml Vial) 5 mg IM TID PRN PRN Reason: if refuses Thiothexine Vancomycin HCl 500 mg/ Sodium (Chloride) 110 mls @ 110 mls/hr IV ONCE ONE Stop: 10/07/24 16:59 Vancomycin HCl 1,000 mg/ (Sodium Chloride) 270 mls @ 270 mls/hr IV ONCE ONE Stop: 10/14/24 12:59 Magnesium Hydroxide (Milk Of Magnesia 30 Ml Oral.Susp) 30 ml PO DAILY PRN PRN Reason: Constipation Metoprolol Tartrate (Metoprolol Tartrate 25 Mg Tablet) 25 mg PO DAILY [facility]; Protocol Last Admin: 10/13/24 10:18 Dose: Not Given Multivitamins/Vitamin C (Multivitamin Tablet) 1 tab PO DAILY [facility] Last Admin: 10/13/24 10:18 Dose: Not Given Nicotine (Nicotine 21 Mg Patch.Td24) 21 mg TRANSDERMA DAILY PRN PRN Reason: smoking cessation Nicotine Polacrilex (Nicotine Polacrilex 2 Mg Gum) 4 mg BUCCAL Q2H PRN PRN Reason: Nicotine Cravings Patient Own Medication Thiothixene 5mg Tab 1 each PO TID@1200,1600,2100 [facility] Last Admin: 10/13/24 21:27 Dose: 1 each Olanzapine (Olanzapine 10 Mg Vial) 10 mg IM DAILY PRN PRN Reason: if refuses PO Abilify 20mg Last Admin: 10/11/24 13:48 Dose: 10 mg Olanzapine (Olanzapine 10 Mg Vial) 5 mg IM DAILY PRN PRN Reason: give if refuses Depakote Last Admin: 09/27/24 22:50 Dose: 5 mg Pharmacy Consult (Consult Rx Vancomycin Dosing) 1 each MISCELLANE DAILY PRN PRN Reason: Consult order Torsemide (Torsemide 20 Mg Tablet) 100 mg PO Olman [facility]; Protocol Last Admin: 10/12/24 06:37 Dose: Not Given Trazodone HCl (Trazodone Hcl 50 Mg Tablet) 50 mg PO BEDTIME MRX1 PRN PRN Reason: Insomnia Allergies Allergies Allergy/AdvReac Type Severity Reaction Status Date / Time No Known Allergies Allergy Verified 07/24/23 11:18 Assessment & Plan Assessment & Plan (1) Bipolar disorder: Status: Acute Code(s): F31.9 - Bipolar disorder, unspecified (2) Noncompliance by declining intervention or support: Status: Acute Code(s): Z91.199 - Patient's noncompliance with other medical treatment and regimen due to unspecified reason (3) ESRD needing dialysis: Status: Acute Code(s): N18.6 - End stage renal disease; Z99.2 - Dependence on renal dialysis Plan HPI: Patient is a 69 yo male with hx of bipolar/psychosis, catatonia, ESRD on Dialysis MWF, AFib on Eliquis, hypertension, anemia related to chronic kidney disease, aortic stenosis status post TAVR, was admitted from [facility] ED after his reported some manic behaviors as well as psychosis and refusal of medications and treatments. Patient refusing medication, labs and dialysis. Says he just wants to take a break from dialysis. He also says he does not want to and wants to live and seemed surprised to hear that refusing dialysis could end his life; however he continued to refuse, only relenting when it was explained to him that court affirmed healthcare proxy has paid a decision that he needs to get dialysis. Patient making some paranoid statements about the police, needing to be taking in or booked by the police... came to the unit and reports that he has not been taking his medications for at least a month and has been making paranoid statements, thinking someone stole a gun from his safe although he does not have a gun at all. HCP affirmed on 09/08/[address] [place] [address] Phytochemistry Professor spoke with patient's and HCP Sujata... She says patient has been confused and disorganized for quite some time, not taking his medications. She agrees that he needs dialysis, to continue his medications, psychiatric and medical, and lab work and agrees that if need be patient is to be restrained in order to treat him including dialysis, medication and labs. Formulation/clinical reasoning: Patient is confused with paranoid delusions; does not have capacity to make medical decisions and healthcare proxy remains affirmed and necessary. Patient disorganized saying he wants to live but does not want dialysis and can not accept that without dialysis he will . Discussed case with , Dr. Pena who concur that when patient is on psychiatric medications and organized, he continues to want dialysis Hospital course: 09/09 patient grudgingly agreed to dialysis, understanding that it is to be enforced otherwise. Patient remains confused and with paranoid ideations; calling 911 multiple times, asking for there to be a check about guns...? Says he does not need medications...? He does not need dialysis.? Phytochemistry Professor again thoroughly reviewed that dialysis is life saving for him; patient continues to purport that his kidneys function fine and he does not need dialysis; he does not want to at all but does not believe that he will without dialysis 09/10 Patient remains paranoid and delusional. Does not understand medical needs at all. Patient asked why he is on Eliquis; mortgage or loan underwriter explained history of AFib however patient says but I feel fine... And can not accept his need for any of his medications or that he has any medical illness, continuing to say but I feel fine... Again says he does not need dialysis. Asked also why he is being offered Depakote and Abilify and again denies that he has any mental illness and does not need these medications. Patient very much wants to talk to Dr. Pena -Phytochemistry Professor discussed case with Dr. Pena who concurs that when patient is on psychiatric medications and stable he does not fact want to continue with dialysis and enjoys spending time with his family 09/11 Difficult day. Patient refused dialysis and despite numerous attempts to explain need for dialysis, court appointed healthcare proxy decision-making.... Patient was unable to understand, remains delusional and disorganized and does not understand his medical illnesses, continued to refuse medications and dialysis. Patient required staff and security to escort patient into wheelchair; he was escorted down to the dialysis without issue and was sitting in the dialysis chair but continued to refuse dialysis thinking he does not need it. His interstate planner Dr. Pena came to visit patient to also provide support and remind patient that he has been getting dialysis for years and when he is doing well, on his psychiatric medication, he affirms dialysis; patient remained refusal. Patient it 1 point grabbed the dialysis to being from the machine, was difficult to redirect and eventually became combative, assaulting staff and needed physical, chemical and four-point restraint for his safety, staff safety and for dialysis. After dialysis, patient a little more clear and accepted some medication without problem. -regarding AFib and patient's refusal of Eliquis, mortgage or loan underwriter discussed with Dr. Edge who explains risk is overall low for blood clot but that Lovenox would be acceptable if patient were not on dialysis (since medication can accumulate); patient could take aspirin but he refuses this as well. 09/12 calm today; agrees to dialysis tomorrow 09/13 dialysis willingly today though in height said he wished he did not; while in dialysis he did challenge continuing with it and did get p.r.n. Haldol and Ativan 09/15 Patient remains struggling with insight. Says he does not need psychiatric medications and asks again why he is prescribed Abilify and Depakote but does not accept reasoning. Says he wants to see if he will be okay without dialysis does not accept explanations to the contrary. Phytochemistry Professor again appeal to him that conversation about medications and dialysis and whether not to continue, are reasonable conversations to have but that patient needs to be clear minded when doing so, thus the need for the psychiatric medications... Patient disagrees. This morning took Abilify but then spit it out. Continues to refuse Depakote Patient requires IM medication Zyprexa as a substitute for his refusal for Abilify and Depakote; patient has bipolar disorder and has a history of becoming floridly manic without mood stabilization; Haldol as substitute for thiothixene however patient is more amenable to taking 09/16 Today patient says willing to go to Dialysis and went without struggle, adherent to the procedure. Last night patient did take Depakote. Reportedly only slept 3 hours. Phytochemistry Professor met with patient several times today as he continued to challenge his need for dialysis, his need for psychiatric medications and for other medications. Patient denies that he has a mental health illness or that he decompensates when going off psychiatric medications. In an effort to help explain patient's need for psychiatric medication, specifically the once he is on, Phytochemistry Professor read to patient, excerpts from his past psychiatric admissions over the past 5 years which document his disorganization, paranoia and disorganized behaviors however patient said that none of that is true. Patient continues to say he wants to see if he will be okay without dialysis and is not open to hearing otherwise -patient normally on Abilify 500 mg t.i.d.; however immediate release Depakote may be removed more readily than extended release; switching to extended release Abilify and increasing to 1000 mg; also has patient struggles to adhere with medication regimen, it seems in patient's best interest that he only has to be faced with taking this medication once a day instead of 3 times a day Impression: Patient remains without capacity to make medical decisions for himself. Phytochemistry Professor believes that if patient were to be discharged today, because he is currently without insight and with disorganized thinking, he would not take any medications and would not go to dialysis placing him in imminent risk for . 10/03 team/family meeting with patient's who is his affirmed healthcare proxy Discussed patient's foot and potential for osteomyelitis and treatment; discussed dialysis; discussed patient's continued disorganized thinking Patient's ambivalent about proceed; she says that even when her was overall clear minded, he talked about discontinuing dialysis. At this point she wants him to continue with dialysis and continues to give team permission to do it as necessary to treat him medically and psychiatrically including restraints and forced medications. Regarding infected toe, patient remains highly resistant to treatment, any kind of imaging, bone scan, and intermittently resistant antibiotics; patient does not understand the risks involved in refusing antibiotics however he does not want risk losing his toe or becoming ill. Currently Keeley Smith is discussing with Dr. Khan and hospitalist team regarding tx with abx 10/07 pt continues to refuse abx; mortgage or loan underwriter discussed with pt at length toe infections and risks of not getting abx however patient cannot understand that his toe is infected; he thinks it's just a blister and cannot appreciate the risks of not getting abx. -not eating much -seems depressed 10/08 no insight; seems depressed and pt not eating much; discussed how nutrition is important to help heal infection; refuses Ensure. Maybe accepting need for abx? 10/09 again does not think toe infected and does not need abx; explained that HCP orders -depressed -wondering if he would benefit from ECT 10/10 pt's visiting; he remains w/out insight asking for discharge, no insight at all; does not remember things he's recently said 10/11 would not talk w/ mortgage or loan underwriter 10/12 Not much change in presentation however to a nurse patient said that he wants to continue getting dialysis because it is keeping me alive... Also said he would allow surgeon to look at his toe -possible improvement in insight? Not sure if it will last 10/13 says he does not think his toe is infected; he said it's getting red and thinks it's because he's been getting antibiotics; mortgage or loan underwriter tried to explain his infection, but pt continued to believe he has no infection. He does not think he needs antibiotics. -pt did allow surgeon to look at his toe impression: remains w/out any insight; no capacity to make medical decisions. Becoming very depressed. Considering ECT Plan: Healthcare proxy signed CV healthcare proxy court affirmed who authorizes patient to be restrained physically and/or with medication as needed to treat him for dialysis, medications and labs; authorizes IM medication substitutes if patient refuses p.o. medications Q 15 minute checks Continue Abilify 25 mg daily: Court appointed HCP approves to give Zyprexa IM if refuses p.o. Abilify Continue Depakote ER 1000mg q.h.s. Court appointed HCP approves to give Zyprexa IM if refuses p.o. depakote Continue Thiothiexene; IM backup if refuses pt refuses eloquis, metoprolol 1. Great right toe infection; concern for osteomyelitis -Vanco during diaylsis -hospitalist team, Infectious Disease team, vascular following MRI to rule out osteomyelitis Recently treated for cellulitis with antibiotics after dialysis Patient is at risk for deterioration of wound due to not allowing staff to care for wound. 2. ESRD: Dialyzes MWF at [facility] via LUE AVF Continue HD on MWF schedule AFIB On Eliquis/aortic stenosis, status post TAVR (Transcatheter Aortic Valve Replacement) Consistently refuses Eliquis, placing him at increased risk for thrombosis Hx of Hypertension; though BP's have been WNL; Consistently refuses metoprolol. 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
[2024-10-14] MEDS: THIOTHIXENE 5 MG 1 EACH PO ×2 (12:03→22:47)
--- NOTE | 2024-10-14 15:58 | PM.CNGS ---
History of Present Illness Consult details Consult date: 10/14/24 Narrative: 69-year-old male with a past medical history of end-stage renal disease on dialysis, bipolar affective disorder, history of catatonia, AFib on Eliquis , anemia related to chronic kidney disease, aortic stenosis status post TAVR here in the psych unit because of manic behavior and paranoia. He has been very poorly compliant as well and refusing interventions He has had this right big toe ulcer and had been consulted for care of this.. He is not a good historian at all. Review of Systems Review of Systems: Yes Unobtainable due to mental status Constitutional: Constitutional: Denies chills and Denies fever(s) PMFSH Past Medical History Medical History Anemia Anemia Hypertension Bipolar disorder Dialysis patient Family History Family history: reviewed and not pertinent Social History Social History Household Members: Spouse Housing: House Do you presently have visiting nurse or other home services: No Unable to assess alcohol history related to: Refusing to respond Alcohol intake: never Comment: 1:1 sitter Patient Tobacco Use Status: Never used Tobacco Smoked in Last 30 Days: No e-Cigarette/Vaping Use: Never Used Second Hand Smoke Exposure: No Currently Displaying Signs/Symptoms of Drug Intoxication Withdrawal: No Have you been hit, kicked, punched, or otherwise hurt by someone within the past year? If so, by whom?: No Do you feel safe in your current relationship?: Yes Is there a partner from a previous relationship who is making you feel unsafe now?: No Are you made to feel afraid or neglected: No Spiritual Healthcare Practices: unknown Sikh Healthcare Practices: unknown Cultural Healthcare Practices: unknown Advance Directives: Yes Advance Directives on File: Yes Advance Directives Date on File: 10/11/22 Do you have thoughts of harming others: None Do you have a plan to hurt others: No Plan Recently lost weight without trying: No How much weight loss: 2-13 pounds Eating poorly because of decreased appetite: No Nutrition screen score: 1 Nutrition Risks: No Nutritional Risk Poor oral hygiene: No service: No Current occupational status: disabled Sexual orientation: Straight/Heterosexual Meds Allergies Allergy/AdvReac Type Severity Reaction Status Date / Time No Known Allergies Allergy Verified 07/24/23 11:18 Active Medications: Current Medications Acetaminophen (Acetaminophen 325 Mg Tablet) 650 mg PO Q6H PRN PRN Reason: Headache/Pain, Scale 1-10 Al Hydroxide/Mg Hydroxide (Magnesium Hydrox/Alum Hydrox 30 Ml Oral.Susp) 30 ml PO Q6H PRN PRN Reason: Heartburn/Nausea Apixaban (Apixaban 2.5 Mg Tablet) 2.5 mg PO BID [facility] Last Admin: 10/14/24 10:06 Dose: Not Given Aripiprazole (Aripiprazole 20 Mg Tablet) 20 mg PO DAILY [facility] Last Admin: 10/14/24 10:02 Dose: 20 mg Aripiprazole (Aripiprazole 5 Mg Tablet) 5 mg PO DAILY [facility] Last Admin: 10/14/24 10:02 Dose: 5 mg Benztropine Mesylate (Benztropine Mesylate 1 Mg Tablet) 1 mg PO BEDTIME PRN PRN Reason: EPS Benztropine Mesylate (Benztropine Mesylate 1 Mg Tablet) 2 mg PO DAILY [facility] Last Admin: 10/14/24 10:06 Dose: Not Given Bisacodyl (Bisacodyl 5 Mg Tablet.Dr) 5 mg PO BEDTIME PRN PRN Reason: Constipation Last Admin: 09/19/24 09:54 Dose: 5 mg Divalproex Sodium (Divalproex Sodium Er 500 Mg Tab.Er.24h) 1,000 mg PO BEDTIME [facility] Last Admin: 10/13/24 22:33 Dose: 1,000 mg Haloperidol Lactate (Haloperidol Lactate 5 Mg/Ml Vial) 5 mg IM TID PRN PRN Reason: if refuses Thiothexine Vancomycin HCl 500 mg/ Sodium (Chloride) 110 mls @ 110 mls/hr IV ONCE ONE Stop: 10/07/24 16:59 Magnesium Hydroxide (Milk Of Magnesia 30 Ml Oral.Susp) 30 ml PO DAILY PRN PRN Reason: Constipation Metoprolol Tartrate (Metoprolol Tartrate 25 Mg Tablet) 25 mg PO DAILY [facility]; Protocol Last Admin: 10/14/24 10:06 Dose: Not Given Multivitamins/Vitamin C (Multivitamin Tablet) 1 tab PO DAILY [facility] Last Admin: 10/14/24 10:07 Dose: Not Given Nicotine (Nicotine 21 Mg Patch.Td24) 21 mg TRANSDERMA DAILY PRN PRN Reason: smoking cessation Nicotine Polacrilex (Nicotine Polacrilex 2 Mg Gum) 4 mg BUCCAL Q2H PRN PRN Reason: Nicotine Cravings Patient Own Medication Thiothixene 5mg Tab 1 each PO TID@1200,1600,2100 [facility] Last Admin: 10/14/24 12:03 Dose: 1 each Olanzapine (Olanzapine 10 Mg Vial) 10 mg IM DAILY PRN PRN Reason: if refuses PO Abilify 20mg Last Admin: 10/11/24 13:48 Dose: 10 mg Olanzapine (Olanzapine 10 Mg Vial) 5 mg IM DAILY PRN PRN Reason: give if refuses Depakote Last Admin: 09/27/24 22:50 Dose: 5 mg Pharmacy Consult (Consult Rx Vancomycin Dosing) 1 each MISCELLANE DAILY PRN PRN Reason: Consult order Torsemide (Torsemide 20 Mg Tablet) 100 mg PO TuTa [facility]; Protocol Last Admin: 10/12/24 06:37 Dose: Not Given Trazodone HCl (Trazodone Hcl 50 Mg Tablet) 50 mg PO BEDTIME MRX1 PRN PRN Reason: Insomnia Home Medications ?Medication ?Instructions ?Recorded ?Confirmed ?Last Taken ?Type apixaban 2.5 mg tablet 2.5 mg PO BID 09/05/24 09/05/24 Unknown History aripiprazole 5 mg tablet 5 mg PO DAILY 09/05/24 09/05/24 Unknown History benztropine 1 mg tablet 1 mg PO BEDTIME PRN EPS 09/05/24 09/05/24 Unknown History benztropine 2 mg tablet 2 mg PO DAILY 09/05/24 09/05/24 Unknown History divalproex 500 mg tablet,extended 500 mg PO DAILY 09/05/24 09/05/24 Unknown History release 24 hr metoprolol tartrate 25 mg tablet 25 mg PO DAILY 09/05/24 09/05/24 Unknown History torsemide 100 mg tablet See Rx Instructions .Route .COMPLEX 09/05/24 09/05/24 Unknown History Physical Exam Vital Signs: Vital Signs: Last Vital Signs Temp 97.5 F 10/14/24 08:00 Pulse 61 10/14/24 08:00 Resp 18 10/14/24 08:00 BP 135/58 L 10/14/24 08:00 Pulse Ox 98 10/14/24 08:00 O2 Del Method Room Air 10/14/24 08:00 Const: Other: Very poor historian, does not provide details of his illness General: comfortable and no acute distress Resp: Effort & Inspection: normal respiratory effort Cardio: Rate: regular rate Extrem: Other: Right big toe with ulcer on the plantar area, about 1.5 cm in diameter currently dry, with surrounding thick callus Results Labs 10/14/24 16:43 10/14/24 16:43 Labs: All other labs normal. Assessment and Plan (1) Open wound of right great toe: Status: Acute He has this chronic wound/ulcer of the right big toe as described above. He is not a diabetic. This currently appears clean without purulent drainage or necrotic tissue. Ideally, he should have an MRI rule out for osteomyelitis of the big toe. However, he is unlikely to consent to this in view of his overall psychiatric condition I have changed his dressings. He can continue with Band-Aid to the area for now. He is getting vancomycin with dialysis as treatment for this chronic wound and possible osteomyelitis The next step if he does not improve or if the area gets worse is an amputation of the right big toe. This does not appear to be he had minute at this time. Again, the patient is poorly compliant and is resistant to interventions. Procedures Date of Service Date of Service: 10/17/24
[2024-10-14 16:48] LABS: MANUAL DIFF FLAG NO
[2024-10-14 16:51] LABS: Hematocrit 26.2 % (42.0-52.0); Hemoglobin 8.7 g/dl (14.0-18.0); Imm Gran Abs Auto 0.01 X10*3/uL (0.00-0.03); Imm Gran Pct Auto 0.4 % (0.0-0.4); Lymphocytes Absolute Auto 0.5 X10*3/uL (1.2-4.9); Mean Corpuscular HGB Conc 33.2 g/dl (31.0-36.0); Mean Corpuscular Hemoglobin 33.5 pg (27.0-33.0); Mean Corpuscular Volume 100.8 fL (80.0-98.0); NRBC Abs Auto 0.000 X10*3/uL (0.0-0.012); NRBC Pct Auto 0.0 /100WBC (0.0-0.2); Platelet Count 107 X10*3/uL (160-400); Red Blood Count 2.60 X10*6/uL (4.60-5.80); White Blood Count 2.6 X10*3/uL (4.8-10.8)
[2024-10-14 17:22] LABS: Alanine Aminotransferase 12 U/L (0-40); Albumin Level 4.1 g/dL (3.5-5.0); Alkaline Phosphatase 60 U/L (39-117); Anion Gap 18 (12-20); Aspartate Amino Transferase 17 U/L (5-37); Blood Urea Nitrogen 40 mg/dL (9-16); Calcium 9.6 mg/dL (8.4-10.2); Carbon Dioxide 26 mmol/L (22-29); Chloride 101 mmol/L (96-108); Estimated Glomerular Filt Rate 7; Potassium 4.5 mmol/L (3.3-5.1); Sodium 140 mmol/L (135-145); Total Protein 6.7 g/dL (6.5-8.0)
[2024-10-14 20:00] VITALS: BP 112/60; PULSE 68; RESP 17; TEMP 36.6; O2SAT 68
[2024-10-15 08:00] VITALS: BP 97/55; PULSE 65; RESP 17; TEMP 36.6; O2SAT 98
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
--- NOTE | 2024-10-15 13:14 | HO.ECTCONS_ITS ---
History of Present Illness Data of Consult Service Date: 10/15/24 Primary Care Provider: CARLOS Pretty [facility] Reason for consult: ECT clearance 69-year-old male with a past medical history of end-stage renal disease on dialysis Monday, bipolar affective disorder, history of catatonia, AFib on Eliquis which he has been refusing, hypertension, anemia related to chronic kidney disease, aortic stenosis status post TAVR was admitted to [facility] originally with manic behaviors and psychosis, it is now being treated on M5. Patient is being followed for suspected osteomyelitis of his right great toe. He is currently receiving vancomycin at dialysis in his troughs have been within normal limits. Patient has been refusing any testing for questionable osteomyelitis therefore he is being treated empirically. Continues to refuse recommended dressing treatments, only agrees to putting a bandage on which he puts on himself. Patient is being seen for ECT clearance and medical follow up. [facility] Medical History Anemia Anemia Hypertension Bipolar disorder Dialysis patient Social History Household Members: Spouse Housing: House Do you presently have visiting nurse or other home services: No Unable to assess alcohol history related to: Refusing to respond Alcohol intake: never Comment: 1:1 sitter Patient Tobacco Use Status: Never used Tobacco Smoked in Last 30 Days: No e-Cigarette/Vaping Use: Never Used Second Hand Smoke Exposure: No Currently Displaying Signs/Symptoms of Drug Intoxication Withdrawal: No Have you been hit, kicked, punched, or otherwise hurt by someone within the past year? If so, by whom?: No Do you feel safe in your current relationship?: Yes Is there a partner from a previous relationship who is making you feel unsafe now?: No Are you made to feel afraid or neglected: No Spiritual Healthcare Practices: unknown Sikh Healthcare Practices: unknown Cultural Healthcare Practices: unknown Advance Directives: Yes Advance Directives on File: Yes Advance Directives Date on File: 10/11/22 Do you have thoughts of harming others: None Do you have a plan to hurt others: No Plan Recently lost weight without trying: No How much weight loss: 2-13 pounds Eating poorly because of decreased appetite: No Nutrition screen score: 1 Nutrition Risks: No Nutritional Risk Poor oral hygiene: No service: No Current occupational status: disabled Sexual orientation: Straight/Heterosexual Meds Allergies Allergy/AdvReac Type Severity Reaction Status Date / Time No Known Allergies Allergy Verified 07/24/23 11:18 Active Medications: Current Medications Acetaminophen (Acetaminophen 325 Mg Tablet) 650 mg PO Q6H PRN PRN Reason: Headache/Pain, Scale 1-10 Al Hydroxide/Mg Hydroxide (Magnesium Hydrox/Alum Hydrox 30 Ml Oral.Susp) 30 ml PO Q6H PRN PRN Reason: Heartburn/Nausea Apixaban (Apixaban 2.5 Mg Tablet) 2.5 mg PO BID [facility] Last Admin: 10/15/24 10:30 Dose: Not Given Aripiprazole (Aripiprazole 20 Mg Tablet) 20 mg PO DAILY [facility] Last Admin: 10/15/24 10:12 Dose: 20 mg Aripiprazole (Aripiprazole 5 Mg Tablet) 5 mg PO DAILY [facility] Last Admin: 10/15/24 10:12 Dose: 5 mg Benztropine Mesylate (Benztropine Mesylate 1 Mg Tablet) 1 mg PO BEDTIME PRN PRN Reason: EPS Benztropine Mesylate (Benztropine Mesylate 1 Mg Tablet) 2 mg PO DAILY [facility] Last Admin: 10/15/24 10:30 Dose: Not Given Bisacodyl (Bisacodyl 5 Mg Tablet.Dr) 5 mg PO BEDTIME PRN PRN Reason: Constipation Last Admin: 09/19/24 09:54 Dose: 5 mg Divalproex Sodium (Divalproex Sodium Er 500 Mg Tab.Er.24h) 1,000 mg PO BEDTIME [facility] Last Admin: 10/14/24 22:46 Dose: 1,000 mg Haloperidol Lactate (Haloperidol Lactate 5 Mg/Ml Vial) 5 mg IM TID PRN PRN Reason: if refuses Thiothexine Vancomycin HCl 500 mg/ Sodium (Chloride) 110 mls @ 110 mls/hr IV ONCE ONE Stop: 10/07/24 16:59 Magnesium Hydroxide (Milk Of Magnesia 30 Ml Oral.Susp) 30 ml PO DAILY PRN PRN Reason: Constipation Metoprolol Tartrate (Metoprolol Tartrate 25 Mg Tablet) 25 mg PO DAILY [facility]; Protocol Last Admin: 10/15/24 10:30 Dose: Not Given Multivitamins/Vitamin C (Multivitamin Tablet) 1 tab PO DAILY [facility] Last Admin: 10/15/24 10:31 Dose: Not Given Nicotine (Nicotine 21 Mg Patch.Td24) 21 mg TRANSDERMA DAILY PRN PRN Reason: smoking cessation Nicotine Polacrilex (Nicotine Polacrilex 2 Mg Gum) 4 mg BUCCAL Q2H PRN PRN Reason: Nicotine Cravings Patient Own Medication Thiothixene 5mg Tab 1 each PO TID@1200,1600,2100 [facility] Last Admin: 10/14/24 22:47 Dose: 1 each Olanzapine (Olanzapine 10 Mg Vial) 10 mg IM DAILY PRN PRN Reason: if refuses PO Abilify 20mg Last Admin: 10/11/24 13:48 Dose: 10 mg Olanzapine (Olanzapine 10 Mg Vial) 5 mg IM DAILY PRN PRN Reason: give if refuses Depakote Last Admin: 09/27/24 22:50 Dose: 5 mg Pharmacy Consult (Consult Rx Vancomycin Dosing) 1 each MISCELLANE DAILY PRN PRN Reason: Consult order Torsemide (Torsemide 20 Mg Tablet) 100 mg PO [facility]; Protocol Last Admin: 10/15/24 06:23 Dose: Not Given Trazodone HCl (Trazodone Hcl 50 Mg Tablet) 50 mg PO BEDTIME MRX1 PRN PRN Reason: Insomnia Home Medications ?Medication ?Instructions ?Recorded ?Confirmed ?Last Taken ?Type apixaban 2.5 mg tablet 2.5 mg PO BID 09/05/2409/05 Unknown History aripiprazole 5 mg tablet 5 mg PO DAILY 09/05/2409/05 Unknown History benztropine 1 mg tablet 1 mg PO BEDTIME PRN EPS 08/2509/05/24 Unknown History benztropine 2 mg tablet 2 mg PO DAILY 09/05/2409/05 Unknown History divalproex 500 mg tablet,extended 500 mg PO DAILY 08/2509/05/24 Unknown History release 24 hr metoprolol tartrate 25 mg tablet 25 mg PO DAILY 09/05/24 Unknown History torsemide 100 mg tablet See Rx Instructions .Route . COMPLEX 09/05/24 09/05/24 Unknown History Physical Exam 2 Vital Signs and Narrative: Vital Signs: Last Vital Signs Temp 97.8 F 10/14/24 20:00 Pulse 68 10/14/24 20:00 Resp 17 10/14/24 20:00 BP 112/60 10/14/24 20:00 Pulse Ox 68 L 10/14/24 20:00 O2 Del Method Room Air 10/14/24 20:00 CONST: Alert and oriented, in NAD. Frail HEENT: Normocephalic, atraumatic, MMM, Eyes clear, Neck supple RESP: Lungs clear, RRR even and regular HEART:,RRR, S1, S2. no edema GI:Abdomen Soft NT, ND. + BS times four :Deferred SKIN: Warm dry and intact, see picture NEURO:CN II-XII Intact bilaterally, Sensation intact. Speech clear PSYCH: Flat affect L Results Labs 10/14/24 16:43 10/14/24 16:43 Labs: Laboratory Results - last 24 hr 10/14/24 10/14/24 16:42 16:43 MCV 100.8 H MCH 33.5 H MCHC 33.2 RDW 14.6 Plt Count 107 L MPV 10.8 Immature Gran % (Auto) 0.4 Neut % (Auto) 62.5 Lymph % (Auto) 20.5 [place] % (Auto) 12.7 H Eos % (Auto) 3.1 Baso % (Auto) 0.8 Lymph # (Auto) 0.5 L [place] # (Auto) 0.3 Eos # (Auto) 0.1 Baso # (Auto) 0.0 Abs Immat Gran (auto) 0.01 Absolute Neuts (auto) 1.6 L Absolute Nucleated RBC 0.000 Nucleated RBC % (auto) 0.0 Anion Gap 18 Estim Creat Clear Calc TNP Estimated GFR 7 Random Glucose 82 Calcium 9.6 Total Bilirubin 0.3 AST 17 ALT 12 Alkaline Phosphatase 60 Total Protein 6.7 Albumin 4.1 Random Vancomycin 15.7 Assessment and Plan (1) Open wound of right great toe: Status: Acute He has this chronic wound/ulcer of the right big toe as described above. He is not a diabetic. This currently appears clean without purulent drainage or necrotic tissue. Ideally, he should have an MRI rule out for osteomyelitis of the big toe. However, he is unlikely to consent to this in view of his overall psychiatric condition I have changed his dressings. He can continue with Band-Aid to the area for now. He is getting vancomycin with dialysis as treatment for this chronic wound and possible osteomyelitis The next step if he does not improve or if the area gets worse is an amputation of the right big toe. This does not appear to be he had minute at this time. Again, the patient is a poorly compliant and is resistant to interventions. Plan 69 year old male with end-stage renal disease, AFib, congestive heart failure, hypertension, right great toe wound and bipolar disorder who was admitted for exacerbation of lindy and psychosis in the context of noncompliance with dialysis treatments and resistance to medications and treatments. Patient is seen for medical clearance for ECT. ECT risk stratification No documented history of problems with anesthesia. RCRI 2 points, is a 5% risk of major cardiac event with ECT treatment due to end-stage renal disease and history of congestive heart failure Patient with no documented history of CT, his blood pressure is controlled, his congestive heart failure appears compensated. No history of bleeding disorders, no history of pulmonary disorders, no documented brain tumors, or head injuries. Recommend cardiology consult for ECT clearance Bipolar affective disorder/lindy/psychosis Treatment per psychiatric team End-stage renal disease on dialysis/Anemia Dialysis Monday. AFib Rate previously controlled with metoprolol 25 mg daily Eliquis b.i.d. for anticoagulation Both medications he has been refusing. HR and BP is stable. Congestive heart failure/hypertension Has been refusing Torsemide and metoprolol Appears Euvolemic on exam. Right Great toe wound. Wound observed today, toe continues to be red. No necrosis or purulent drainage noted. No odor. Callus skin present around Offered him an MRI as he does not believe that he does not have infection in his toe. Explained to him the purpose of an MRI and discussed with him the need for imaging to determine whether or not he has a true infection in his toe. He continues to decline this Also discussed with him at length for wound care consult, he declines this. He was recently evaluated by surgery who recommended continuing with the bandage to the area. Patient changes this himself does not allow nursing to do Continues vancomycin with dialysis as treatment for this chronic wound and possible osteomyelitis. Vancomycin troughs have been within normal limits The toe wound is complicated due to patient's resistance to intervention and compliance waxing and waning. Thank you for allowing me to participate in the care of this patient. Will follow as needed. Please reconsult of any acute concerns or issues arise
[2024-10-15] MEDS: THIOTHIXENE 5 MG 1 EACH PO ×3 (13:20→21:21)
[2024-10-15 20:00] VITALS: BP 84/48; PULSE 60; TEMP 36.3; O2SAT 99
[2024-10-15 23:35] VITALS: BP 109/57; PULSE 67; O2SAT 98
[2024-10-16 08:13] VITALS: BP 122/58; PULSE 73; O2SAT 98
--- NOTE | 2024-10-16 08:35 | PM.EVENT ---
Event Note Date of Service: 10/16/24 Event Note: ECT risk assessment follow up. Given his multiple co-morbidities including end-stage renal disease(ESRD), atrial fibrillation(AFIB), hyperlipidemia(HLD), peripheral artery disease (PAD) and active osteomyelitis, as well as his unpredictable behavior and refusal of care including EKG, a comprehensive risk assessment is not possible. However he is likely high risk and the risks and benefits of ECT should be carefully discussed with him and his designated volunteer patient representative. Time Spent With Patient Time: Total time managing care of this patient today ____ minutes.
[2024-10-16] MEDS: THIOTHIXENE 5 MG 1 EACH PO ×3 (13:16→21:19)
--- NOTE | 2024-10-16 17:50 | HO.PSYCHPN ---
Subjective Subjective Date of Service: 10/16/24 Reason For Visit: Unspecified Bipolar D/O Depression Anxiety Subjective Notes: Conditional Voluntary (by HCP) Healthcare Proxy: Yes Guardianship: Yes Medical Problems Affecting Mental Status: No Interim History: Medical record and nursing notes reviewed; case discussed during rounds with team/nursing staff, and met with patient for supportive therapy/psychoeducation, as well as medication management. Per nursing evening note Pt visible in milieu, often near the nursing station . Pt is quiet and avoids gaze . Pt is withdrawn to self but verbalizes needs. Pt responds to greetings from staff. Pt requested POM scheduled Thiothixene and Depakote when he was ready and at separate times. Pt is restless and has difficulty remaining asleep. Pt refused Eliquis at HS. Meet with patient in the afternoon, reports he slept ok last night, appetite is I am hungry now . report he feels normal after DH. Complaitn with recommended treatment. Wal around with blanket on his shoulder, some upper extremety tremor observed.Denies SI/SIB/HI/AVH, and say yes to question if he feels safe here. Medication Compliance: No Side effects from medications: No Attending Groups: No Review of Systems Acute medical concerns: No Medical Review of Systems: unchanged Review of Systems Review of Systems Yes Unobtainable due to mental status Constitutional: Denies chills and Denies fever(s) Mental Status Exam Mental Status Exam Narrative: Pt is alert and oriented; behavior is pleasant on approach but resistant to care; calm; patient is not in distress; dressed in hospital pants, Tshirt, with marginal hygiene; mood is described as I am good and affect constricted; eye contact avoidant at itmes; Speech is normal rate, volume and prosody and not pressured; psychomotor retardation present; thought process is goal directed but can be circular; Thought content is on not wanting treatment, discharge; no expressed paranoid delusions; denies any SI/HI. Denies AVH; does not appear to be internally preoccupied. Patients insight and judgment impaired. Diagnostics Vital Signs (24Hr): Vital Signs - 24 hr 10/15/24 20:00 10/15/24 23:35 10/16/24 08:13 Temperature 97.3 F Pulse Rate 60 67 73 Blood Pressure 84/48 L 109/57 L 122/58 L Pulse Oximetry 99 98 98 Oxygen Delivery Method Room Air Room Air Room Air Labs 10/14/24 16:43 10/14/24 16:43 Labs: Laboratory Results - last 48 hr 10/16/24 09:45 Random Vancomycin 22.4 H Medications Medications Current Medications Acetaminophen (Acetaminophen 325 Mg Tablet) 650 mg PO Q6H PRN PRN Reason: Headache/Pain, Scale 1-10 Al Hydroxide/Mg Hydroxide (Magnesium Hydrox/Alum Hydrox 30 Ml Oral.Susp) 30 ml PO Q6H PRN PRN Reason: Heartburn/Nausea Apixaban (Apixaban 2.5 Mg Tablet) 2.5 mg PO BID [facility] Last Admin: 10/16/24 09:39 Dose: Not Given Aripiprazole (Aripiprazole 20 Mg Tablet) 20 mg PO DAILY [facility] Last Admin: 10/16/24 09:38 Dose: 20 mg Aripiprazole (Aripiprazole 5 Mg Tablet) 5 mg PO DAILY [facility] Last Admin: 10/16/24 09:38 Dose: 5 mg Benztropine Mesylate (Benztropine Mesylate 1 Mg Tablet) 1 mg PO BEDTIME PRN PRN Reason: EPS Benztropine Mesylate (Benztropine Mesylate 1 Mg Tablet) 2 mg PO DAILY [facility] Last Admin: 10/16/24 09:39 Dose: Not Given Bisacodyl (Bisacodyl 5 Mg Tablet.Dr) 5 mg PO BEDTIME PRN PRN Reason: Constipation Last Admin: 09/19/24 09:54 Dose: 5 mg Divalproex Sodium (Divalproex Sodium Er 500 Mg Tab.Er.24h) 1,000 mg PO BEDTIME [facility] Last Admin: 10/15/24 22:59 Dose: 1,000 mg Haloperidol Lactate (Haloperidol Lactate 5 Mg/Ml Vial) 5 mg IM TID PRN PRN Reason: if refuses Thiothexine Vancomycin HCl 500 mg/ Sodium (Chloride) 110 mls @ 110 mls/hr IV ONCE ONE Stop: 10/07/24 16:59 Magnesium Hydroxide (Milk Of Magnesia 30 Ml Oral.Susp) 30 ml PO DAILY PRN PRN Reason: Constipation Metoprolol Tartrate (Metoprolol Tartrate 25 Mg Tablet) 25 mg PO DAILY [facility]; Protocol Last Admin: 10/16/24 09:39 Dose: Not Given Multivitamins/Vitamin C (Multivitamin Tablet) 1 tab PO DAILY [facility] Last Admin: 10/16/24 09:39 Dose: Not Given Nicotine (Nicotine 21 Mg Patch.Td24) 21 mg TRANSDERMA DAILY PRN PRN Reason: smoking cessation Nicotine Polacrilex (Nicotine Polacrilex 2 Mg Gum) 4 mg BUCCAL Q2H PRN PRN Reason: Nicotine Cravings Patient Own Medication Thiothixene 5mg Tab 1 each PO TID@1200,1600,2100 [facility] Last Admin: 10/16/24 16:33 Dose: 1 each Olanzapine (Olanzapine 10 Mg Vial) 10 mg IM DAILY PRN PRN Reason: if refuses PO Abilify 20mg Last Admin: 10/11/24 13:48 Dose: 10 mg Olanzapine (Olanzapine 10 Mg Vial) 5 mg IM DAILY PRN PRN Reason: give if refuses Depakote Last Admin: 09/27/24 22:50 Dose: 5 mg Pharmacy Consult (Consult Rx Vancomycin Dosing) 1 each MISCELLANE DAILY PRN PRN Reason: Consult order Torsemide (Torsemide 20 Mg Tablet) 100 mg PO TuTa [facility]; Protocol Last Admin: 10/15/24 06:23 Dose: Not Given Trazodone HCl (Trazodone Hcl 50 Mg Tablet) 50 mg PO BEDTIME MRX1 PRN PRN Reason: Insomnia Allergies Allergies Allergy/AdvReac Type Severity Reaction Status Date / Time No Known Allergies Allergy Verified 07/24/23 11:18 Assessment & Plan Assessment & Plan (1) Bipolar disorder: Status: Acute Code(s): F31.9 - Bipolar disorder, unspecified (2) Open wound of right great toe: Status: Acute Code(s): S91.101A - Unspecified open wound of right great toe without damage to nail, initial encounter Assessment and Plan: He has this chronic wound/ulcer of the right big toe as described above. He is not a diabetic. This currently appears clean without purulent drainage or necrotic tissue. Ideally, he should have an MRI rule out for osteomyelitis of the big toe. However, he is unlikely to consent to this in view of his overall psychiatric condition I have changed his dressings. He can continue with Band-Aid to the area for now. He is getting vancomycin with dialysis as treatment for this chronic wound and possible osteomyelitis The next step if he does not improve or if the area gets worse is an amputation of the right big toe. This does not appear to be he had minute at this time. Again, the patient is a poorly compliant and is resistant to interventions. (3) Noncompliance by declining intervention or support: Status: Acute Code(s): Z91.199 - Patient's noncompliance with other medical treatment and regimen due to unspecified reason (4) ESRD needing dialysis: Status: Acute Code(s): N18.6 - End stage renal disease; Z99.2 - Dependence on renal dialysis Plan HPI: Patient is a 69 yo male with hx of bipolar/psychosis, catatonia, ESRD on Dialysis MWF, AFib on Eliquis, hypertension, anemia related to chronic kidney disease, aortic stenosis status post TAVR, was admitted from [facility] ED after his reported some manic behaviors as well as psychosis and refusal of medications and treatments. Patient refusing medication, labs and dialysis. Says he just wants to take a break from dialysis. He also says he does not want to and wants to live and seemed surprised to hear that refusing dialysis could end his life; however he continued to refuse, only relenting when it was explained to him that court affirmed healthcare proxy has paid a decision that he needs to get dialysis. Patient making some paranoid statements about the police, needing to be taking in or booked by the police... came to the unit and reports that he has not been taking his medications for at least a month and has been making paranoid statements, thinking someone stole a gun from his safe although he does not have a gun at all. HCP affirmed on 09/08/[address] [place] [address] Professor Of Family Medicine spoke with patient's and HCP Sujata... She says patient has been confused and disorganized for quite some time, not taking his medications. She agrees that he needs dialysis, to continue his medications, psychiatric and medical, and lab work and agrees that if need be patient is to be restrained in order to treat him including dialysis, medication and labs. Formulation/clinical reasoning: Patient is confused with paranoid delusions; does not have capacity to make medical decisions and healthcare proxy remains affirmed and necessary. Patient disorganized saying he wants to live but does not want dialysis and can not accept that without dialysis he will . Discussed case with , Dr. Pena who concur that when patient is on psychiatric medications and organized, he continues to want dialysis Hospital course: 09/09 patient grudgingly agreed to dialysis, understanding that it is to be enforced otherwise. Patient remains confused and with paranoid ideations; calling 911 multiple times, asking for there to be a check about guns...? Says he does not need medications...? He does not need dialysis.? Professor Of Family Medicine again thoroughly reviewed that dialysis is life saving for him; patient continues to purport that his kidneys function fine and he does not need dialysis; he does not want to at all but does not believe that he will without dialysis 09/10 Patient remains paranoid and delusional. Does not understand medical needs at all. Patient asked why he is on Eliquis; check writer explained history of AFib however patient says but I feel fine... And can not accept his need for any of his medications or that he has any medical illness, continuing to say but I feel fine... Again says he does not need dialysis. Asked also why he is being offered Depakote and Abilify and again denies that he has any mental illness and does not need these medications. Patient very much wants to talk to Dr. Pena -Professor Of Family Medicine discussed case with Dr. Pena who concurs that when patient is on psychiatric medications and stable he does not fact want to continue with dialysis and enjoys spending time with his family 09/11 Difficult day. Patient refused dialysis and despite numerous attempts to explain need for dialysis, court appointed healthcare proxy decision-making.... Patient was unable to understand, remains delusional and disorganized and does not understand his medical illnesses, continued to refuse medications and dialysis. Patient required staff and security to escort patient into wheelchair; he was escorted down to the dialysis without issue and was sitting in the dialysis chair but continued to refuse dialysis thinking he does not need it. His top steep tender Dr. Pena came to visit patient to also provide support and remind patient that he has been getting dialysis for years and when he is doing well, on his psychiatric medication, he affirms dialysis; patient remained refusal. Patient it 1 point grabbed the dialysis to being from the machine, was difficult to redirect and eventually became combative, assaulting staff and needed physical, chemical and four-point restraint for his safety, staff safety and for dialysis. After dialysis, patient a little more clear and accepted some medication without problem. -regarding AFib and patient's refusal of Eliquis, check writer discussed with Dr. Edge who explains risk is overall low for blood clot but that Lovenox would be acceptable if patient were not on dialysis (since medication can accumulate); patient could take aspirin but he refuses this as well. 09/12 calm today; agrees to dialysis tomorrow 09/13 dialysis willingly today though in height said he wished he did not; while in dialysis he did challenge continuing with it and did get p.r.n. Haldol and Ativan 09/15 Patient remains struggling with insight. Says he does not need psychiatric medications and asks again why he is prescribed Abilify and Depakote but does not accept reasoning. Says he wants to see if he will be okay without dialysis does not accept explanations to the contrary. Professor Of Family Medicine again appeal to him that conversation about medications and dialysis and whether not to continue, are reasonable conversations to have but that patient needs to be clear minded when doing so, thus the need for the psychiatric medications... Patient disagrees. This morning took Abilify but then spit it out. Continues to refuse Depakote Patient requires IM medication Zyprexa as a substitute for his refusal for Abilify and Depakote; patient has bipolar disorder and has a history of becoming floridly manic without mood stabilization; Haldol as substitute for thiothixene however patient is more amenable to taking 09/16 Today patient says willing to go to Dialysis and went without struggle, adherent to the procedure. Last night patient did take Depakote. Reportedly only slept 3 hours. Professor Of Family Medicine met with patient several times today as he continued to challenge his need for dialysis, his need for psychiatric medications and for other medications. Patient denies that he has a mental health illness or that he decompensates when going off psychiatric medications. In an effort to help explain patient's need for psychiatric medication, specifically the once he is on, Professor Of Family Medicine read to patient, excerpts from his past psychiatric admissions over the past 5 years which document his disorganization, paranoia and disorganized behaviors however patient said that none of that is true. Patient continues to say he wants to see if he will be okay without dialysis and is not open to hearing otherwise -patient normally on Abilify 500 mg t.i.d.; however immediate release Depakote may be removed more readily than extended release; switching to extended release Abilify and increasing to 1000 mg; also has patient struggles to adhere with medication regimen, it seems in patient's best interest that he only has to be faced with taking this medication once a day instead of 3 times a day Impression: Patient remains without capacity to make medical decisions for himself. Professor Of Family Medicine believes that if patient were to be discharged today, because he is currently without insight and with disorganized thinking, he would not take any medications and would not go to dialysis placing him in imminent risk for . 10/03 team/family meeting with patient's who is his affirmed healthcare proxy Discussed patient's foot and potential for osteomyelitis and treatment; discussed dialysis; discussed patient's continued disorganized thinking Patient's ambivalent about proceed; she says that even when her was overall clear minded, he talked about discontinuing dialysis. At this point she wants him to continue with dialysis and continues to give team permission to do it as necessary to treat him medically and psychiatrically including restraints and forced medications. Regarding infected toe, patient remains highly resistant to treatment, any kind of imaging, bone scan, and intermittently resistant antibiotics; patient does not understand the risks involved in refusing antibiotics however he does not want risk losing his toe or becoming ill. Currently Keeley Luis is discussing with Dr. Khan and hospitalist team regarding tx with abx 10/07 pt continues to refuse abx; check writer discussed with pt at length toe infections and risks of not getting abx however patient cannot understand that his toe is infected; he thinks it's just a blister and cannot appreciate the risks of not getting abx. -not eating much -seems depressed 10/08 no insight; seems depressed and pt not eating much; discussed how nutrition is important to help heal infection; refuses Ensure. Maybe accepting need for abx? 10/09 again does not think toe infected and does not need abx; explained that HCP orders -depressed -wondering if he would benefit from ECT 10/10 pt's visiting; he remains w/out insight asking for discharge, no insight at all; does not remember things he's recently said 10/11 would not talk w/ check writer 10/12 Not much change in presentation however to a nurse patient said that he wants to continue getting dialysis because it is keeping me alive... Also said he would allow surgeon to look at his toe -possible improvement in insight? Not sure if it will last 10/13 says he does not think his toe is infected; he said it's getting red and thinks it's because he's been getting antibiotics; check writer tried to explain his infection, but pt continued to believe he has no infection. He does not think he needs antibiotics. -pt did allow surgeon to look at his toe 10/15 remains w/out any insight; says toe not infected and sees no need for abx; wants discharge -broached topic of ECT with pt and . 10/16/24: Continue with current treatment plan, when down to get dialysis done. Refused Eliquis and other AM scheduled medications as usual. No fall. No SI/SIB/HI/AVH, Soft spoken, visible in common areas when not off unit for treatment. Encourage to compliant with medication. impression: remains w/out any insight; no capacity to make medical decisions. Becoming very depressed. Considering ECT Plan: Healthcare proxy signed CV healthcare proxy court affirmed who authorizes patient to be restrained physically and/or with medication as needed to treat him for dialysis, medications and labs; authorizes IM medication substitutes if patient refuses p.o. medications Q 15 minute checks Continue Abilify 25 mg daily: Court appointed HCP approves to give Zyprexa IM if refuses p.o. Abilify Continue Depakote ER 1000mg q.h.s. Court appointed HCP approves to give Zyprexa IM if refuses p.o. depakote Continue Thiothiexene; IM backup if refuses pt refuses eloquis, metoprolol 1. Great right toe infection; concern for osteomyelitis -Vanco during diaylsis -hospitalist team, Infectious Disease team, vascular following MRI to rule out osteomyelitis Recently treated for cellulitis with antibiotics after dialysis Patient is at risk for deterioration of wound due to not allowing staff to care for wound. 2. ESRD: Dialyzes MWF at [facility] via LUE AVF Continue HD on MWF schedule AFIB On Eliquis/aortic stenosis, status post TAVR (Transcatheter Aortic Valve Replacement) Consistently refuses Eliquis, placing him at increased risk for thrombosis Hx of Hypertension; though BP's have been WNL; Consistently refuses metoprolol. 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
[2024-10-16 20:00] VITALS: BP 113/55; PULSE 67; RESP 16; TEMP 36.4; O2SAT 100
--- NOTE | 2024-10-17 03:58 | P.PNNP_ITS ---
Subjective Subjective Date of Service: 10/16/24 Interval history: Seen giovanni solares noted Physical Exam 2 Vital Signs: Vital Signs: Last Vital Signs Temp 97.6 F 10/16/24 20:00 Pulse 67 10/16/24 20:00 Resp 16 10/16/24 20:00 BP 113/55 L 10/16/24 20:00 Pulse Ox 100 10/16/24 20:00 O2 Del Method Room Air 10/16/24 20:00 Const: General: cooperative HEENT: Head: Yes normal to inspection Face and sinus: Yes normal facial exam Mouth: Normal oral and palatal mucosa present Teeth and gingiva: d entition normal Eyes: General: appearance normal, both eyes and all related structures P upils: Equal, round and reactive pupils present Resp: Effort & Inspection: normal respiratory effort Cardio: Rate: regular rate Rhythm: regular rhythm GI: Palpation (GI): Soft to palpation and nontender : General: Yes no CVA tenderness Back/Spine/Pelvis: Back: no CVA tenderness Skin: General skin exam: no rashes or lesions noted Neuro: General: moves all extremities Cranial nerves: Yes Equal, round and reactive pupils present Extrem: Other: right toe red DIP pulses intact Psych: Appearance: grossly normal Objective Data Labs 10/14/24 16:43 10/14/24 16:43 Labs: Laboratory Results - last 24 hr 10/16/24 09:45 Random Vancomycin 22.4 H Microbiology Microbiology Results: Microbiology 09/20/24 13:33 Blood - Venous Blood Culture - Final No growth after 5 days. 09/20/24 13:33 Blood - Venous Blood Culture - Final No growth after 5 days. Procedures Date of Service Date of Service: 10/17/24 Assessment & Plan Assessment and plan (1) ESRD needing dialysis: Status: Acute Plan Marco Holcomb is a 69 year old male with past medical history of ESRD on HD, bipolar disorder, Afib on Eliquis, s/p TAVR, hypertension, hyperlipidemia who presented to [facility] with erratic behavior over the past few weeks. Seen by Psych for decompensated bipolar illness in the inpt psych unit. Nephrology consulted for ESRD. 1. ESRD Dialyzes MWF at [facility] via LUE AVF 2. Hypertension / Volume Chronically pt is taking metoprolol 25 mg daily and torsemide 100 mg non-HD days 3. Nephrogenic Anemia 4. Mineral Bone Disease 5. 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 Will follow w team Time Spent With Patient Time: Total time managing care of this patient today ____ minutes. Progress Note: Quality Stroke Does the patient have a stroke diagnosis?: No
--- NOTE | 2024-10-17 04:01 | PM.PNNEP ---
Subjective Subjective Date of Service: 10/24/24 Interval history: Seen giovanni solares noted Physical Exam Vital Signs: Vital Signs: Last Vital Signs Temp 97.6 F 10/16/24 20:00 Pulse 67 10/16/24 20:00 Resp 16 10/16/24 20:00 BP 113/55 L 10/16/24 20:00 Pulse Ox 100 10/16/24 20:00 O2 Del Method Room Air 10/16/24 20:00 Const: General: cooperative HEENT: Head: Yes normal to inspection Face and sinus: Yes normal facial exam Mouth: Normal oral and palatal mucosa present Teeth and gingiva: dentition normal Eyes: General: appearance normal, both eyes and all related structures Pupils: Equal, round and reactive pupils present Resp: Effort & Inspection: normal respiratory effort Cardio: Rate: regular rate Rhythm: regular rhythm GI: Palpation (GI): Soft to palpation and nontender : General: Yes no CVA tenderness Back/Spine/Pelvis: Back: no CVA tenderness Skin: General skin exam: no rashes or lesions noted Neuro: General: moves all extremities Cranial nerves: Yes Equal, round and reactive pupils present Extrem: Other: right toe red DIP pulses intact Psych: Appearance: grossly normal Objective Data Labs 10/23/24 10:05 10/23/24 08:32 Labs: Laboratory Results - last 24 hr 10/16/24 09:45 Random Vancomycin 22.4 H Microbiology Microbiology Results: Microbiology 09/20/24 13:33 Blood - Venous Blood Culture - Final No growth after 5 days. 09/20/24 13:33 Blood - Venous Blood Culture - Final No growth after 5 days. Procedures Date of Service Date of Service: 10/24/24 Assessment & Plan Assessment and plan (1) ESRD needing dialysis: Status: Acute Plan Marco Holcomb is a 69 year old male with past medical history of ESRD on HD, bipolar disorder, Afib on Eliquis, s/p TAVR, hypertension, hyperlipidemia who presented to [facility] with erratic behavior over the past few weeks. Seen by Psych for decompensated bipolar illness in the inpt psych unit. Nephrology consulted for ESRD. 1. ESRD Dialyzes MWF at [facility] via LUE AVF 2. Hypertension / Volume Chronically pt is taking metoprolol 25 mg daily and torsemide 100 mg non-HD days 3. Nephrogenic Anemia 4. Mineral Bone Disease 5. WT loss: encourage eating and suppl Recommendations: -cont HD 3x/wk using restraints and sedative meds as needed and rec by marco given he is not competent and his is Hcpxy - routine dialysis labs ordered-- will check weekly while inpt - has pedal edema - however refused an extra UF treatment - now with soft bp's advised shield runner to try trendlenberg position for HD , will help with mobilizing edema - abx per primary team - this has to be empiric as unable to scan the foot. Will follow w team Time Spent With Patient Time: Total time managing care of this patient today ____ minutes. Progress Note: Quality Stroke Does the patient have a stroke diagnosis?: No
[2024-10-17 08:00] VITALS: BP 97/54; PULSE 69; RESP 17; TEMP 36.3; O2SAT 97
--- NOTE | 2024-10-17 09:46 | HO.PSYCHPN ---
Subjective Subjective Date of Service: 10/17/24 Reason For Visit: Unspecified Bipolar D/O Depression Anxiety Interim History: met with pt; discussed with team; reviewed chart again discussed infection and pt continues to say he does not have one and agrees he would not take abx if discharged; pt wants discharge but able to engage in a discussion about why contract writer does not think ready and hear that contract writer thinks pt is not able to think clearly or able to understand his medical illnesses. Pt continues to disagree but was momentarily able to understand this is why contract writer does not feel pt is safe for discharge. Mental Status Exam Mental Status Exam Narrative: Pt is alert and oriented; behavior is pleasant on approach but resistant to care; calm; patient is not in distress; dressed in hospital pants, Tshirt, with marginal hygiene; mood is described as I am good and affect constricted; eye contact avoidant at itmes; Speech is normal rate, volume and prosody and not pressured; psychomotor retardation present; thought process is goal directed but can be circular; Thought content is on not wanting treatment, discharge; no expressed paranoid delusions; denies any SI/HI. Denies AVH; does not appear to be internally preoccupied. Patients insight and judgment impaired. Diagnostics Vital Signs (24Hr): Vital Signs - 24 hr 10/16/24 20:00 Temperature 97.6 F Pulse Rate 67 Respiratory Rate 16 Blood Pressure 113/55 L Pulse Oximetry 100 Oxygen Delivery Method Room Air Labs 10/14/24 16:43 10/14/24 16:43 Labs: Laboratory Results - last 48 hr 10/16/24 09:45 Random Vancomycin 22.4 H Medications Medications Current Medications Acetaminophen (Acetaminophen 325 Mg Tablet) 650 mg PO Q6H PRN PRN Reason: Headache/Pain, Scale 1-10 Al Hydroxide/Mg Hydroxide (Magnesium Hydrox/Alum Hydrox 30 Ml Oral.Susp) 30 ml PO Q6H PRN PRN Reason: Heartburn/Nausea Apixaban (Apixaban 2.5 Mg Tablet) 2.5 mg PO BID [facility] Last Admin: 10/17/24 09:31 Dose: Not Given Aripiprazole (Aripiprazole 20 Mg Tablet) 20 mg PO DAILY [facility] Last Admin: 10/17/24 09:29 Dose: 20 mg Aripiprazole (Aripiprazole 5 Mg Tablet) 5 mg PO DAILY [facility] Last Admin: 10/17/24 09:29 Dose: 5 mg Benztropine Mesylate (Benztropine Mesylate 1 Mg Tablet) 1 mg PO BEDTIME PRN PRN Reason: EPS Benztropine Mesylate (Benztropine Mesylate 1 Mg Tablet) 2 mg PO DAILY [facility] Last Admin: 10/17/24 09:31 Dose: Not Given Bisacodyl (Bisacodyl 5 Mg Tablet.Dr) 5 mg PO BEDTIME PRN PRN Reason: Constipation Last Admin: 09/19/24 09:54 Dose: 5 mg Divalproex Sodium (Divalproex Sodium Er 500 Mg Tab.Er.24h) 1,000 mg PO BEDTIME [facility] Last Admin: 10/16/24 22:48 Dose: 1,000 mg Haloperidol Lactate (Haloperidol Lactate 5 Mg/Ml Vial) 5 mg IM TID PRN PRN Reason: if refuses Thiothexine Vancomycin HCl 500 mg/ Sodium (Chloride) 110 mls @ 110 mls/hr IV ONCE ONE Stop: 10/07/24 16:59 Magnesium Hydroxide (Milk Of Magnesia 30 Ml Oral.Susp) 30 ml PO DAILY PRN PRN Reason: Constipation Metoprolol Tartrate (Metoprolol Tartrate 25 Mg Tablet) 25 mg PO DAILY [facility]; Protocol Last Admin: 10/17/24 09:31 Dose: Not Given Multivitamins/Vitamin C (Multivitamin Tablet) 1 tab PO DAILY [facility] Last Admin: 10/17/24 09:31 Dose: Not Given Nicotine (Nicotine 21 Mg Patch.Td24) 21 mg TRANSDERMA DAILY PRN PRN Reason: smoking cessation Nicotine Polacrilex (Nicotine Polacrilex 2 Mg Gum) 4 mg BUCCAL Q2H PRN PRN Reason: Nicotine Cravings Patient Own Medication Thiothixene 5mg Tab 1 each PO TID@1200,1600,2100 [facility] Last Admin: 10/16/24 21:19 Dose: 1 each Olanzapine (Olanzapine 10 Mg Vial) 10 mg IM DAILY PRN PRN Reason: if refuses PO Abilify 20mg Last Admin: 10/11/24 13:48 Dose: 10 mg Olanzapine (Olanzapine 10 Mg Vial) 5 mg IM DAILY PRN PRN Reason: give if refuses Depakote Last Admin: 09/27/24 22:50 Dose: 5 mg Pharmacy Consult (Consult Rx Vancomycin Dosing) 1 each MISCELLANE DAILY PRN PRN Reason: Consult order Torsemide (Torsemide 20 Mg Tablet) 100 mg PO Katlinjl [facility]; Protocol Last Admin: 10/17/24 06:09 Dose: Not Given Trazodone HCl (Trazodone Hcl 50 Mg Tablet) 50 mg PO BEDTIME MRX1 PRN PRN Reason: Insomnia Allergies Allergies Allergy/AdvReac Type Severity Reaction Status Date / Time No Known Allergies Allergy Verified 07/24/23 11:18 Assessment & Plan Assessment & Plan (1) Bipolar disorder: Status: Acute Code(s): F31.9 - Bipolar disorder, unspecified (2) ESRD needing dialysis: Status: Acute Code(s): N18.6 - End stage renal disease; Z99.2 - Dependence on renal dialysis (3) Open wound of right great toe: Status: Acute Code(s): S91.101A - Unspecified open wound of right great toe without damage to nail, initial encounter Assessment and Plan: He has this chronic wound/ulcer of the right big toe as described above. He is not a diabetic. This currently appears clean without purulent drainage or necrotic tissue. Ideally, he should have an MRI rule out for osteomyelitis of the big toe. However, he is unlikely to consent to this in view of his overall psychiatric condition I have changed his dressings. He can continue with Band-Aid to the area for now. He is getting vancomycin with dialysis as treatment for this chronic wound and possible osteomyelitis The next step if he does not improve or if the area gets worse is an amputation of the right big toe. This does not appear to be he had minute at this time. Again, the patient is a poorly compliant and is resistant to interventions. (4) Noncompliance by declining intervention or support: Status: Acute Code(s): Z91.199 - Patient's noncompliance with other medical treatment and regimen due to unspecified reason Plan HPI: Patient is a 69 yo male with hx of bipolar/psychosis, catatonia, ESRD on Dialysis MWF, AFib on Eliquis, hypertension, anemia related to chronic kidney disease, aortic stenosis status post TAVR, was admitted from [facility] ED after his reported some manic behaviors as well as psychosis and refusal of medications and treatments. Patient refusing medication, labs and dialysis. Says he just wants to take a break from dialysis. He also says he does not want to and wants to live and seemed surprised to hear that refusing dialysis could end his life; however he continued to refuse, only relenting when it was explained to him that court affirmed healthcare proxy has paid a decision that he needs to get dialysis. Patient making some paranoid statements about the police, needing to be taking in or booked by the police... came to the unit and reports that he has not been taking his medications for at least a month and has been making paranoid statements, thinking someone stole a gun from his safe although he does not have a gun at all. HCP affirmed on 09/08/[address] [place] [address] Animal Caretaker spoke with patient's and HCP Sujata... She says patient has been confused and disorganized for quite some time, not taking his medications. She agrees that he needs dialysis, to continue his medications, psychiatric and medical, and lab work and agrees that if need be patient is to be restrained in order to treat him including dialysis, medication and labs. Formulation/clinical reasoning: Patient is confused with paranoid delusions; does not have capacity to make medical decisions and healthcare proxy remains affirmed and necessary. Patient disorganized saying he wants to live but does not want dialysis and can not accept that without dialysis he will . Discussed case with , Dr. Pena who concur that when patient is on psychiatric medications and organized, he continues to want dialysis Hospital course: 09/09 patient grudgingly agreed to dialysis, understanding that it is to be enforced otherwise. Patient remains confused and with paranoid ideations; calling 911 multiple times, asking for there to be a check about guns...? Says he does not need medications...? He does not need dialysis.? Animal Caretaker again thoroughly reviewed that dialysis is life saving for him; patient continues to purport that his kidneys function fine and he does not need dialysis; he does not want to at all but does not believe that he will without dialysis 09/10 Patient remains paranoid and delusional. Does not understand medical needs at all. Patient asked why he is on Eliquis; contract writer explained history of AFib however patient says but I feel fine... And can not accept his need for any of his medications or that he has any medical illness, continuing to say but I feel fine... Again says he does not need dialysis. Asked also why he is being offered Depakote and Abilify and again denies that he has any mental illness and does not need these medications. Patient very much wants to talk to Dr. Pena -Animal Caretaker discussed case with Dr. Pena who concurs that when patient is on psychiatric medications and stable he does not fact want to continue with dialysis and enjoys spending time with his family 09/11 Difficult day. Patient refused dialysis and despite numerous attempts to explain need for dialysis, court appointed healthcare proxy decision-making.... Patient was unable to understand, remains delusional and disorganized and does not understand his medical illnesses, continued to refuse medications and dialysis. Patient required staff and security to escort patient into wheelchair; he was escorted down to the dialysis without issue and was sitting in the dialysis chair but continued to refuse dialysis thinking he does not need it. His tray packer Dr. Pena came to visit patient to also provide support and remind patient that he has been getting dialysis for years and when he is doing well, on his psychiatric medication, he affirms dialysis; patient remained refusal. Patient it 1 point grabbed the dialysis to being from the machine, was difficult to redirect and eventually became combative, assaulting staff and needed physical, chemical and four-point restraint for his safety, staff safety and for dialysis. After dialysis, patient a little more clear and accepted some medication without problem. -regarding AFib and patient's refusal of Eliquis, contract writer discussed with Dr. Edge who explains risk is overall low for blood clot but that Lovenox would be acceptable if patient were not on dialysis (since medication can accumulate); patient could take aspirin but he refuses this as well. 09/12 calm today; agrees to dialysis tomorrow 09/13 dialysis willingly today though in height said he wished he did not; while in dialysis he did challenge continuing with it and did get p.r.n. Haldol and Ativan 09/15 Patient remains struggling with insight. Says he does not need psychiatric medications and asks again why he is prescribed Abilify and Depakote but does not accept reasoning. Says he wants to see if he will be okay without dialysis does not accept explanations to the contrary. Animal Caretaker again appeal to him that conversation about medications and dialysis and whether not to continue, are reasonable conversations to have but that patient needs to be clear minded when doing so, thus the need for the psychiatric medications... Patient disagrees. This morning took Abilify but then spit it out. Continues to refuse Depakote Patient requires IM medication Zyprexa as a substitute for his refusal for Abilify and Depakote; patient has bipolar disorder and has a history of becoming floridly manic without mood stabilization; Haldol as substitute for thiothixene however patient is more amenable to taking 09/16 Today patient says willing to go to Dialysis and went without struggle, adherent to the procedure. Last night patient did take Depakote. Reportedly only slept 3 hours. Animal Caretaker met with patient several times today as he continued to challenge his need for dialysis, his need for psychiatric medications and for other medications. Patient denies that he has a mental health illness or that he decompensates when going off psychiatric medications. In an effort to help explain patient's need for psychiatric medication, specifically the once he is on, Animal Caretaker read to patient, excerpts from his past psychiatric admissions over the past 5 years which document his disorganization, paranoia and disorganized behaviors however patient said that none of that is true. Patient continues to say he wants to see if he will be okay without dialysis and is not open to hearing otherwise -patient normally on Abilify 500 mg t.i.d.; however immediate release Depakote may be removed more readily than extended release; switching to extended release Abilify and increasing to 1000 mg; also has patient struggles to adhere with medication regimen, it seems in patient's best interest that he only has to be faced with taking this medication once a day instead of 3 times a day Impression: Patient remains without capacity to make medical decisions for himself. Animal Caretaker believes that if patient were to be discharged today, because he is currently without insight and with disorganized thinking, he would not take any medications and would not go to dialysis placing him in imminent risk for . 10/03 team/family meeting with patient's who is his affirmed healthcare proxy Discussed patient's foot and potential for osteomyelitis and treatment; discussed dialysis; discussed patient's continued disorganized thinking Patient's ambivalent about proceed; she says that even when her was overall clear minded, he talked about discontinuing dialysis. At this point she wants him to continue with dialysis and continues to give team permission to do it as necessary to treat him medically and psychiatrically including restraints and forced medications. Regarding infected toe, patient remains highly resistant to treatment, any kind of imaging, bone scan, and intermittently resistant antibiotics; patient does not understand the risks involved in refusing antibiotics however he does not want risk losing his toe or becoming ill. Currently Keeley Smith is discussing with Dr. Khan and hospitalist team regarding tx with abx 10/07 pt continues to refuse abx; contract writer discussed with pt at length toe infections and risks of not getting abx however patient cannot understand that his toe is infected; he thinks it's just a blister and cannot appreciate the risks of not getting abx. -not eating much -seems depressed 10/08 no insight; seems depressed and pt not eating much; discussed how nutrition is important to help heal infection; refuses Ensure. Maybe accepting need for abx? 10/09 again does not think toe infected and does not need abx; explained that HCP orders -depressed -wondering if he would benefit from ECT 10/10 pt's visiting; he remains w/out insight asking for discharge, no insight at all; does not remember things he's recently said 10/11 would not talk w/ contract writer 10/12 Not much change in presentation however to a nurse patient said that he wants to continue getting dialysis because it is keeping me alive... Also said he would allow surgeon to look at his toe -possible improvement in insight? Not sure if it will last 10/13 says he does not think his toe is infected; he said it's getting red and thinks it's because he's been getting antibiotics; contract writer tried to explain his infection, but pt continued to believe he has no infection. He does not think he needs antibiotics. -pt did allow surgeon to look at his toe 10/15 remains w/out any insight; says toe not infected and sees no need for abx; wants discharge -broached topic of ECT with pt and . 10/16/24: Continue with current treatment plan, when down to get dialysis done. Refused Eliquis and other AM scheduled medications as usual. No fall. No SI/SIB/HI/AVH, Soft spoken, visible in common areas when not off unit for treatment. Encourage to compliant with medication. 10/18 no change in presentation; regarding ECT consulted Dr. Arora who will assess pt impression: remains w/out any insight; no capacity to make medical decisions. Becoming very depressed. Considering ECT Plan: Healthcare proxy signed CV healthcare proxy court affirmed who authorizes patient to be restrained physically and/or with medication as needed to treat him for dialysis, medications and labs; authorizes IM medication substitutes if patient refuses p.o. medications Q 15 minute checks Continue Abilify 25 mg daily: Court appointed HCP approves to give Zyprexa IM if refuses p.o. Abilify Continue Depakote ER 1000mg q.h.s. Court appointed HCP approves to give Zyprexa IM if refuses p.o. depakote Continue Thiothiexene; IM backup if refuses pt refuses eloquis, metoprolol 1. Great right toe infection; concern for osteomyelitis -Vanco during diaylsis -hospitalist team, Infectious Disease team, vascular following MRI to rule out osteomyelitis Recently treated for cellulitis with antibiotics after dialysis Patient is at risk for deterioration of wound due to not allowing staff to care for wound. 2. ESRD: Dialyzes MWF at [facility] via LUE AVF Continue HD on MWF schedule AFIB On Eliquis/aortic stenosis, status post TAVR (Transcatheter Aortic Valve Replacement) Consistently refuses Eliquis, placing him at increased risk for thrombosis Hx of Hypertension; though BP's have been WNL; Consistently refuses metoprolol. Heart rates reviewed all under 100, blood pressure has been stable -normally prescribed metoprolol 25 mg daily and torsemide 100 mg non-HD days Nephrogenic Anemia Hgb 9.4 (6/4) TSat 71%, Ferritin 1465 (08/07) Mineral Bone Disease Ca 9.6 (09/04) Phos 9.0 (08/21) PTH 484 (08/07) Patient educated on: medication risk/benefits Informed Consent: further education needed Reason for continued inpatient stay Substantial Risk for: med/psych decompensation Time Spent With Patient Time: Total time managing care of this patient today ____ minutes.
[2024-10-17] MEDS: THIOTHIXENE 5 MG 1 EACH PO ×3 (13:15→20:56)
[2024-10-17 20:00] VITALS: RESP 18
[2024-10-18 09:13] LABS: B Type Natriuretic Peptide 356 pg/mL (<100)
--- NOTE | 2024-10-18 12:04 | PC.NURSE ---
Pt on dialysis which is the reason for delay in morning medicatins. He just returned tot he unit and meds will be offered now.
[2024-10-18] MEDS: THIOTHIXENE 5 MG 1 EACH PO ×3 (12:26→20:57)
[2024-10-18 12:29] VITALS: BP 117/69; PULSE 72
[2024-10-18 20:00] VITALS: BP 107/58; PULSE 71; TEMP 36.3; O2SAT 98
[2024-10-19 08:00] VITALS: BP 125/73; PULSE 65; RESP 18; TEMP 36.1; O2SAT 94
--- NOTE | 2024-10-19 09:47 | P.PNPSI_ITS ---
Documented by User: Jaydebj Prince, AERIAL PHOTOGRAPHER 10/20/24 18:39 Subjective Subjective Date of Service: 10/19/24 Reason For Visit: Unspecified Bipolar D/O Depression Anxiety Healthcare Proxy: Yes Interim History: Team reports pt to be angry. Refused wifes visit, asked sister not to visit. Team reports pt cursed at which was very upsetting to her. Presents as depressed, flat, angry. Walking on the unit. When approached and greeting, pt responds, no one cares . Poor eye contact, speaking with select peers only and team when approached. Med/care refusals continue. Medication Compliance: Intermittent Side effects from medications: No Attending Groups: No Review of Systems ESRD Review of Systems Review of Systems ESRD Mental Status Exam Mental Status Exam Patient Appearance: Appropriate Patient Orientation: Person, Place, Time and Situation Level of Consciousness: Alert Patient Behavior: Poor Eye Contact Mood Description: Hostile and Angry Affect Description: Withdrawn and Hostile Patient Cognition Impaired: No Ability to Follow Directions: Fair Speech Pattern: Spontaneous Speech Memory Description: Episodic Impaired Hallucinations: None (denies) Delusions: Present Perceptual Disturbances: Derealization Thought Process: Rumination Thought Content: positive for Perseveration Judgement: Poor Diagnostics Vital Signs (24Hr): Vital Signs - 24 hr 10/18/24 12:29 10/18/24 20:00 10/19/24 08:00 Temperature 97.4 F 97 F Pulse Rate 72 71 65 Respiratory Rate 18 Blood Pressure 117/69 107/58 L 125/73 Pulse Oximetry 98 94 Oxygen Delivery Method Room Air Room Air Labs 10/14/24 16:43 10/14/24 16:43 Labs: Laboratory Results - last 48 hr 10/18/24 08:38 B-Natriuretic Peptide 356 H Random Vancomycin 23.3 H Medications Medications Current Medications Acetaminophen (Acetaminophen 325 Mg Tablet) 650 mg PO Q6H PRN PRN Reason: Headache/Pain, Scale 1-10 Al Hydroxide/Mg Hydroxide (Magnesium Hydrox/Alum Hydrox 30 Ml Oral.Susp) 30 ml PO Q6H PRN PRN Reason: Heartburn/Nausea Apixaban (Apixaban 2.5 Mg Tablet) 2.5 mg PO BID [facility] Last Admin: 10/19/24 09:31 Dose: Not Given Aripiprazole (Aripiprazole 20 Mg Tablet) 20 mg PO DAILY [facility] Last Admin: 10/19/24 09:32 Dose: 20 mg Aripiprazole (Aripiprazole 5 Mg Tablet) 5 mg PO DAILY [facility] Last Admin: 10/19/24 09:32 Dose: 5 mg Benztropine Mesylate (Benztropine Mesylate 1 Mg Tablet) 1 mg PO BEDTIME PRN PRN Reason: EPS Benztropine Mesylate (Benztropine Mesylate 1 Mg Tablet) 2 mg PO DAILY [facility] Last Admin: 10/19/24 09:31 Dose: Not Given Bisacodyl (Bisacodyl 5 Mg Tablet.Dr) 5 mg PO BEDTIME PRN PRN Reason: Constipation Last Admin: 09/19/24 09:54 Dose: 5 mg Divalproex Sodium (Divalproex Sodium Er 500 Mg Tab.Er.24h) 1,000 mg PO BEDTIME [facility] Last Admin: 10/18/24 22:17 Dose: 1,000 mg Haloperidol Lactate (Haloperidol Lactate 5 Mg/Ml Vial) 5 mg IM TID PRN PRN Reason: if refuses Thiothexine Vancomycin HCl 500 mg/ Sodium (Chloride) 110 mls @ 110 mls/hr IV ONCE ONE Stop: 10/07/24 16:59 Vancomycin HCl 500 mg/ Sodium (Chloride) 110 mls @ 110 mls/hr IV ONCE ONE Stop: 10/21/24 10:59 Magnesium Hydroxide (Milk Of Magnesia 30 Ml Oral.Susp) 30 ml PO DAILY PRN PRN Reason: Constipation Metoprolol Tartrate (Metoprolol Tartrate 25 Mg Tablet) 25 mg PO DAILY [facility]; Protocol Last Admin: 10/19/24 09:31 Dose: Not Given Multivitamins/Vitamin C (Multivitamin Tablet) 1 tab PO DAILY [facility] Last Admin: 10/19/24 09:31 Dose: Not Given Nicotine (Nicotine 21 Mg Patch.Td24) 21 mg TRANSDERMA DAILY PRN PRN Reason: smoking cessation Nicotine Polacrilex (Nicotine Polacrilex 2 Mg Gum) 4 mg BUCCAL Q2H PRN PRN Reason: Nicotine Cravings Patient Own Medication Thiothixene 5mg Tab 1 each PO TID@1200,1600,2100 [facility] Last Admin: 10/18/24 20:57 Dose: 1 each Olanzapine (Olanzapine 10 Mg Vial) 10 mg IM DAILY PRN PRN Reason: if refuses PO Abilify 20mg Last Admin: 07/11/25 13:48 Dose: 10 mg Olanzapine (Olanzapine 10 Mg Vial) 5 mg IM DAILY PRN PRN Reason: give if refuses Depakote Last Admin: 09/27/24 22:50 Dose: 5 mg Pharmacy Consult (Consult Rx Vancomycin Dosing) 1 each MISCELLANE DAILY PRN PRN Reason: Consult order Torsemide (Torsemide 20 Mg Tablet) 100 mg PO Katlinjl [facility]; Protocol Last Admin: 10/19/24 09:30 Dose: Not Given Trazodone HCl (Trazodone Hcl 50 Mg Tablet) 50 mg PO BEDTIME MRX1 PRN PRN Reason: Insomnia Allergies Allergies Allergy/AdvReac Type Severity Reaction Status Date / Time No Known Allergies Allergy Verified 07/24/23 11:18 Assessment & Plan Assessment & Plan (1) Bipolar disorder: Status: Acute Code(s): F31.9 - Bipolar disorder, unspecified (2) Open wound of right great toe: Status: Acute Code(s): S91.101A - Unspecified open wound of right great toe without damage to nail, initial encounter Assessment and Plan: He has this chronic wound/ulcer of the right big toe as described above. He is not a diabetic. This currently appears clean without purulent drainage or necrotic tissue. Ideally, he should have an MRI rule out for osteomyelitis of the big toe. However, he is unlikely to consent to this in view of his overall psychiatric condition I have changed his dressings. He can continue with Band-Aid to the area for now. He is getting vancomycin with dialysis as treatment for this chronic wound and possible osteomyelitis The next step if he does not improve or if the area gets worse is an amputation of the right big toe. This does not appear to be he had minute at this time. Again, the patient is poorly compliant and is resistant to interventions. (3) ESRD needing dialysis: Status: Acute Code(s): N18.6 - End stage renal disease; Z99.2 - Dependence on renal dialysis (4) Noncompliance by declining intervention or support: Status: Acute Code(s): Z91.199 - Patient's noncompliance with other medical treatment and regimen due to unspecified reason Plan HPI: Patient is a 69 yo male with hx of bipolar/psychosis, catatonia, ESRD on Dialysis MWF, AFib on Eliquis, hypertension, anemia related to chronic kidney disease, aortic stenosis status post TAVR, was admitted from [facility] ED after his reported some manic behaviors as well as psychosis and refusal of medications and treatments. Patient refusing medication, labs and dialysis. Says he just wants to take a break from dialysis. He also says he does not want to and wants to live and seemed surprised to hear that refusing dialysis could end his life; however he continued to refuse, only relenting when it was explained to him that court affirmed healthcare proxy has paid a decision that he needs to get dialysis. Patient making some paranoid statements about the police, needing to be taking in or booked by the police... came to the unit and reports that he has not been taking his medications for at least a month and has been making paranoid statements, thinking someone stole a gun from his safe although he does not have a gun at all. HCP affirmed on 09/08/[address] [place] [address] Tone Regulator spoke with patient's and HCP Sujata... She says patient has been confused and disorganized for quite some time, not taking his medications. She agrees that he needs dialysis, to continue his medications, psychiatric and medical, and lab work and agrees that if need be patient is to be restrained in order to treat him including dialysis, medication and labs. Formulation/clinical reasoning: Patient is confused with paranoid delusions; does not have capacity to make medical decisions and healthcare proxy remains affirmed and necessary. Patient disorganized saying he wants to live but does not want dialysis and can not accept that without dialysis he will . Discussed case with , Dr. Pena who concur that when patient is on psychiatric medications and organized, he continues to want dialysis Hospital course: 09/09 patient grudgingly agreed to dialysis, understanding that it is to be enforced otherwise. Patient remains confused and with paranoid ideations; calling 911 multiple times, asking for there to be a check about guns...? Says he does not need medications...? He does not need dialysis.? Tone Regulator again thoroughly reviewed that dialysis is life saving for him; patient continues to purport that his kidneys function fine and he does not need dialysis; he does not want to at all but does not believe that he will without dialysis 09/10 Patient remains paranoid and delusional. Does not understand medical needs at all. Patient asked why he is on Eliquis; customs entry writer explained history of AFib however patient says but I feel fine... And can not accept his need for any of his medications or that he has any medical illness, continuing to say but I feel fine... Again says he does not need dialysis. Asked also why he is being offered Depakote and Abilify and again denies that he has any mental illness and does not need these medications. Patient very much wants to talk to Dr. Pena -Tone Regulator discussed case with Dr. Pena who concurs that when patient is on psychiatric medications and stable he does not fact want to continue with dialysis and enjoys spending time with his family 09/11 Difficult day. Patient refused dialysis and despite numerous attempts to explain need for dialysis, court appointed healthcare proxy decision-making.... Patient was unable to understand, remains delusional and disorganized and does not understand his medical illnesses, continued to refuse medications and dialysis. Patient required staff and security to escort patient into wheelchair; he was escorted down to the dialysis without issue and was sitting in the dialysis chair but continued to refuse dialysis thinking he does not need it. His sort operations supervisor Dr. Pena came to visit patient to also provide support and remind patient that he has been getting dialysis for years and when he is doing well, on his psychiatric medication, he affirms dialysis; patient remained refusal. Patient it 1 point grabbed the dialysis to being from the machine, was difficult to redirect and eventually became combative, assaulting staff and needed physical, chemical and four-point restraint for his safety, staff safety and for dialysis. After dialysis, patient a little more clear and accepted some medication without problem. -regarding AFib and patient's refusal of Eliquis, customs entry writer discussed with Dr. Edge who explains risk is overall low for blood clot but that Lovenox would be acceptable if patient were not on dialysis (since medication can accumulate); patient could take aspirin but he refuses this as well. 09/12 calm today; agrees to dialysis tomorrow 09/13 dialysis willingly today though in height said he wished he did not; while in dialysis he did challenge continuing with it and did get p.r.n. Haldol and Ativan 09/15 Patient remains struggling with insight. Says he does not need psychiatric medications and asks again why he is prescribed Abilify and Depakote but does not accept reasoning. Says he wants to see if he will be okay without dialysis does not accept explanations to the contrary. Tone Regulator again appeal to him that conversation about medications and dialysis and whether not to continue, are reasonable conversations to have but that patient needs to be clear minded when doing so, thus the need for the psychiatric medications... Patient disagrees. This morning took Abilify but then spit it out. Continues to refuse Depakote Patient requires IM medication Zyprexa as a substitute for his refusal for Abilify and Depakote; patient has bipolar disorder and has a history of becoming floridly manic without mood stabilization; Haldol as substitute for thiothixene however patient is more amenable to taking 09/16 Today patient says willing to go to Dialysis and went without struggle, adherent to the procedure. Last night patient did take Depakote. Reportedly only slept 3 hours. Tone Regulator met with patient several times today as he continued to challenge his need for dialysis, his need for psychiatric medications and for other medications. Patient denies that he has a mental health illness or that he decompensates when going off psychiatric medications. In an effort to help explain patient's need for psychiatric medication, specifically the once he is on, Tone Regulator read to patient, excerpts from his past psychiatric admissions over the past 5 years which document his disorganization, paranoia and disorganized behaviors however patient said that none of that is true. Patient continues to say he wants to see if he will be okay without dialysis and is not open to hearing otherwise -patient normally on Abilify 500 mg t.i.d.; however immediate release Depakote may be removed more readily than extended release; switching to extended release Abilify and increasing to 1000 mg; also has patient struggles to adhere with medication regimen, it seems in patient's best interest that he only has to be faced with taking this medication once a day instead of 3 times a day Impression: Patient remains without capacity to make medical decisions for himself. Tone Regulator believes that if patient were to be discharged today, because he is currently without insight and with disorganized thinking, he would not take any medications and would not go to dialysis placing him in imminent risk for . 10/03 team/family meeting with patient's who is his affirmed healthcare proxy Discussed patient's foot and potential for osteomyelitis and treatment; discussed dialysis; discussed patient's continued disorganized thinking Patient's ambivalent about proceed; she says that even when her was overall clear minded, he talked about discontinuing dialysis. At this point she wants him to continue with dialysis and continues to give team permission to do it as necessary to treat him medically and psychiatrically including restraints and forced medications. Regarding infected toe, patient remains highly resistant to treatment, any kind of imaging, bone scan, and intermittently resistant antibiotics; patient does not understand the risks involved in refusing antibiotics however he does not want risk losing his toe or becoming ill. Currently Keeley Smith is discussing with Dr. Khan and hospitalist team regarding tx with abx 10/07 pt continues to refuse abx; customs entry writer discussed with pt at length toe infections and risks of not getting abx however patient cannot understand that his toe is infected; he thinks it's just a blister and cannot appreciate the risks of not getting abx. -not eating much -seems depressed 10/08 no insight; seems depressed and pt not eating much; discussed how nutrition is important to help heal infection; refuses Ensure. Maybe accepting need for abx? 10/09 again does not think toe infected and does not need abx; explained that HCP orders -depressed -wondering if he would benefit from ECT 10/10 pt's visiting; he remains w/out insight asking for discharge, no insight at all; does not remember things he's recently said 10/11 would not talk w/ customs entry writer 10/12 Not much change in presentation however to a nurse patient said that he wants to continue getting dialysis because it is keeping me alive... Also said he would allow surgeon to look at his toe -possible improvement in insight? Not sure if it will last 10/13 says he does not think his toe is infected; he said it's getting red and thinks it's because he's been getting antibiotics; customs entry writer tried to explain his infection, but pt continued to believe he has no infection. He does not think he needs antibiotics. -pt did allow surgeon to look at his toe 10/15 remains w/out any insight; says toe not infected and sees no need for abx; wants discharge -broached topic of ECT with pt and . 10/16/24: Continue with current treatment plan, when down to get dialysis done. Refused Eliquis and other AM scheduled medications as usual. No fall. No SI/SIB/HI/AVH, Soft spoken, visible in common areas when not off unit for treatment. Encourage to compliant with medication. 10/18 no change in presentation; regarding ECT consulted Dr. Arora who will assess pt 10/19 continue tx and encouragement for treatment impression: remains w/out any insight; no capacity to make medical decisions. Becoming very depressed. Considering ECT Plan: Healthcare proxy signed CV healthcare proxy court affirmed who authorizes patient to be restrained physically and/or with medication as needed to treat him for dialysis, medications and labs; authorizes IM medication substitutes if patient refuses p.o. medications Q 15 minute checks Continue Abilify 25 mg daily: Court appointed HCP approves to give Zyprexa IM if refuses p.o. Abilify Continue Depakote ER 1000mg q.h.s. Court appointed HCP approves to give Zyprexa IM if refuses p.o. depakote Continue Thiothiexene; IM backup if refuses pt refuses eloquis, metoprolol 1. Great right toe infection; concern for osteomyelitis -Vanco during diaylsis -hospitalist team, Infectious Disease team, vascular following MRI to rule out osteomyelitis Recently treated for cellulitis with antibiotics after dialysis Patient is at risk for deterioration of wound due to not allowing staff to care for wound. 2. ESRD: Dialyzes MWF at [facility] via [facility] Continue HD on MWF schedule AFIB On Eliquis/aortic stenosis, status post TAVR (Transcatheter Aortic Valve Replacement) Consistently refuses Eliquis, placing him at increased risk for thrombosis Hx of Hypertension; though BP's have been WNL; Consistently refuses metoprolol. 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 Documented by User: Richard Mccord MD 10/22/24 18:04 Subjective Subjective Reason For Visit: Unspecified Bipolar D/O Depression Anxiety Diagnostics Labs 10/14/24 16:43 10/14/24 16:43 Assessment & Plan Assessment & Plan (1) Bipolar disorder: Status: Acute Code(s): F31.9 - Bipolar disorder, unspecified (2) Open wound of right great toe: Status: Acute Code(s): S91.101A - Unspecified open wound of right great toe without damage to nail, initial encounter (3) ESRD needing dialysis: Status: Acute Code(s): N18.6 - End stage renal disease; Z99.2 - Dependence on renal dialysis (4) Noncompliance by declining intervention or support: Status: Acute Code(s): Z91.199 - Patient's noncompliance with other medical treatment and regimen due to unspecified reason Plan HPI: Patient is a 69 yo male with hx of bipolar/psychosis, catatonia, ESRD on Dialysis MWF, AFib on Eliquis, hypertension, anemia related to chronic kidney disease, aortic stenosis status post TAVR, was admitted from [facility] ED after his reported some manic behaviors as well as psychosis and refusal of medications and treatments. Patient refusing medication, labs and dialysis. Says he just wants to take a break from dialysis. He also says he does not want to and wants to live and seemed surprised to hear that refusing dialysis could end his life; however he continued to refuse, only relenting when it was explained to him that court affirmed healthcare proxy has paid a decision that he needs to get dialysis. Patient making some paranoid statements about the police, needing to be taking in or booked by the police... came to the unit and reports that he has not been taking his medications for at least a month and has been making paranoid statements, thinking someone stole a gun from his safe although he does not have a gun at all. HCP affirmed on 09/08[address] [place] [address] Tone Regulator spoke with patient's and HCP Sujata... She says patient has been confused and disorganized for quite some time, not taking his medications. She agrees that he needs dialysis, to continue his medications, psychiatric and medical, and lab work and agrees that if need be patient is to be restrained in order to treat him including dialysis, medication and labs. Formulation/clinical reasoning: Patient is confused with paranoid delusions; does not have capacity to make medical decisions and healthcare proxy remains affirmed and necessary. Patient disorganized saying he wants to live but does not want dialysis and can not accept that without dialysis he will . Discussed case with , Dr. Pena who concur that when patient is on psychiatric medications and organized, he continues to want dialysis Hospital course: 09/09 patient grudgingly agreed to dialysis, understanding that it is to be enforced otherwise. Patient remains confused and with paranoid ideations; calling 911 multiple times, asking for there to be a check about guns...? Says he does not need medications...? He does not need dialysis.? Tone Regulator again thoroughly reviewed that dialysis is life saving for him; patient continues to purport that his kidneys function fine and he does not need dialysis; he does not want to at all but does not believe that he will without dialysis 09/10 Patient remains paranoid and delusional. Does not understand medical needs at all. Patient asked why he is on Eliquis; customs entry writer explained history of AFib however patient says but I feel fine... And can not accept his need for any of his medications or that he has any medical illness, continuing to say but I feel fine... Again says he does not need dialysis. Asked also why he is being offered Depakote and Abilify and again denies that he has any mental illness and does not need these medications. Patient very much wants to talk to Dr. Pena -Tone Regulator discussed case with Dr. Pena who concurs that when patient is on psychiatric medications and stable he does not fact want to continue with dialysis and enjoys spending time with his family 09/11 Difficult day. Patient refused dialysis and despite numerous attempts to explain need for dialysis, court appointed healthcare proxy decision-making.... Patient was unable to understand, remains delusional and disorganized and does not understand his medical illnesses, continued to refuse medications and dialysis. Patient required staff and security to escort patient into wheelchair; he was escorted down to the dialysis without issue and was sitting in the dialysis chair but continued to refuse dialysis thinking he does not need it. His sort operations supervisor Dr. Pena came to visit patient to also provide support and remind patient that he has been getting dialysis for years and when he is doing well, on his psychiatric medication, he affirms dialysis; patient remained refusal. Patient it 1 point grabbed the dialysis to being from the machine, was difficult to redirect and eventually became combative, assaulting staff and needed physical, chemical and four-point restraint for his safety, staff safety and for dialysis. After dialysis, patient a little more clear and accepted some medication without problem. -regarding AFib and patient's refusal of Eliquis, customs entry writer discussed with Dr. Edge who explains risk is overall low for blood clot but that Lovenox would be acceptable if patient were not on dialysis (since medication can accumulate); patient could take aspirin but he refuses this as well. 09/12 calm today; agrees to dialysis tomorrow 09/13 dialysis willingly today though in height said he wished he did not; while in dialysis he did challenge continuing with it and did get p.r.n. Haldol and Ativan 09/15 Patient remains struggling with insight. Says he does not need psychiatric medications and asks again why he is prescribed Abilify and Depakote but does not accept reasoning. Says he wants to see if he will be okay without dialysis does not accept explanations to the contrary. Tone Regulator again appeal to him that conversation about medications and dialysis and whether not to continue, are reasonable conversations to have but that patient needs to be clear minded when doing so, thus the need for the psychiatric medications... Patient disagrees. This morning took Abilify but then spit it out. Continues to refuse Depakote Patient requires IM medication Zyprexa as a substitute for his refusal for Abilify and Depakote; patient has bipolar disorder and has a history of becoming floridly manic without mood stabilization; Haldol as substitute for thiothixene however patient is more amenable to taking 09/16 Today patient says willing to go to Dialysis and went without struggle, adherent to the procedure. Last night patient did take Depakote. Reportedly only slept 3 hours. Tone Regulator met with patient several times today as he continued to challenge his need for dialysis, his need for psychiatric medications and for other medications. Patient denies that he has a mental health illness or that he decompensates when going off psychiatric medications. In an effort to help explain patient's need for psychiatric medication, specifically the once he is on, Tone Regulator read to patient, excerpts from his past psychiatric admissions over the past 5 years which document his disorganization, paranoia and disorganized behaviors however patient said that none of that is true. Patient continues to say he wants to see if he will be okay without dialysis and is not open to hearing otherwise -patient normally on Abilify 500 mg t.i.d.; however immediate release Depakote may be removed more readily than extended release; switching to extended release Abilify and increasing to 1000 mg; also has patient struggles to adhere with medication regimen, it seems in patient's best interest that he only has to be faced with taking this medication once a day instead of 3 times a day Impression: Patient remains without capacity to make medical decisions for himself. Tone Regulator believes that if patient were to be discharged today, because he is currently without insight and with disorganized thinking, he would not take any medications and would not go to dialysis placing him in imminent risk for . 10/03 team/family meeting with patient's who is his affirmed healthcare proxy Discussed patient's foot and potential for osteomyelitis and treatment; discussed dialysis; discussed patient's continued disorganized thinking Patient's ambivalent about proceed; she says that even when her was overall clear minded, he talked about discontinuing dialysis. At this point she wants him to continue with dialysis and continues to give team permission to do it as necessary to treat him medically and psychiatrically including restraints and forced medications. Regarding infected toe, patient remains highly resistant to treatment, any kind of imaging, bone scan, and intermittently resistant antibiotics; patient does not understand the risks involved in refusing antibiotics however he does not want risk losing his toe or becoming ill. Currently Keeley Smith is discussing with Dr. Khan and hospitalist team regarding tx with abx 10/07 pt continues to refuse abx; customs entry writer discussed with pt at length toe infections and risks of not getting abx however patient cannot understand that his toe is infected; he thinks it's just a blister and cannot appreciate the risks of not getting abx. -not eating much -seems depressed 10/08 no insight; seems depressed and pt not eating much; discussed how nutrition is important to help heal infection; refuses Ensure. Maybe accepting need for abx? 10/09 again does not think toe infected and does not need abx; explained that HCP orders -depressed -wondering if he would benefit from ECT 10/10 pt's visiting; he remains w/out insight asking for discharge, no insight at all; does not remember things he's recently said 10/11 would not talk w/ customs entry writer 10/12 Not much change in presentation however to a nurse patient said that he wants to continue getting dialysis because it is keeping me alive... Also said he would allow surgeon to look at his toe -possible improvement in insight? Not sure if it will last 10/13 says he does not think his toe is infected; he said it's getting red and thinks it's because he's been getting antibiotics; customs entry writer tried to explain his infection, but pt continued to believe he has no infection. He does not think he needs antibiotics. -pt did allow surgeon to look at his toe 10/15 remains w/out any insight; says toe not infected and sees no need for abx; wants discharge -broached topic of ECT with pt and . 10/16/24: Continue with current treatment plan, when down to get dialysis done. Refused Eliquis and other AM scheduled medications as usual. No fall. No SI/SIB/HI/AVH, Soft spoken, visible in common areas when not off unit for treatment. Encourage to compliant with medication. 10/18 no change in presentation; regarding ECT consulted Dr. Arora who will assess pt impression: remains w/out any insight; no capacity to make medical decisions. Becoming very depressed. Considering ECT Plan: Healthcare proxy signed CV healthcare proxy court affirmed who authorizes patient to be restrained physically and/or with medication as needed to treat him for dialysis, medications and labs; authorizes IM medication substitutes if patient refuses p.o. medications Q 15 minute checks Continue Abilify 25 mg daily: Court appointed HCP approves to give Zyprexa IM if refuses p.o. Abilify Continue Depakote ER 1000mg q.h.s. Court appointed HCP approves to give Zyprexa IM if refuses p.o. depakote Continue Thiothiexene; IM backup if refuses pt refuses eloquis, metoprolol 1. Great right toe infection; concern for osteomyelitis -Vanco during diaylsis -hospitalist team, Infectious Disease team, vascular following MRI to rule out osteomyelitis Recently treated for cellulitis with antibiotics after dialysis Patient is at risk for deterioration of wound due to not allowing staff to care for wound. 2. ESRD: Dialyzes MWF at [facility] via [facility] Continue HD on MWF schedule AFIB On Eliquis/aortic stenosis, status post TAVR (Transcatheter Aortic Valve Replacement) Consistently refuses Eliquis, placing him at increased risk for thrombosis Hx of Hypertension; though BP's have been WNL; Consistently refuses metoprolol. Heart rates reviewed all under 100, blood pressure has been stable -normally prescribed metoprolol 25 mg daily and torsemide 100 mg non-HD days Nephrogenic Anemia Hgb 9.4 (09/04) TSat 71%, Ferritin 1465 (08/07) Mineral Bone Disease Ca 9.6 (09/04) Phos 9.0 (08/21) PTH 484 (08/07) Patient educated on: medication risk/benefits Informed Consent: further education needed Reason for continued inpatient stay Substantial Risk for: med/psych decompensation
[2024-10-19] MEDS: THIOTHIXENE 5 MG 1 EACH PO ×3 (11:34→21:12)
[2024-10-19 19:34] VITALS: BP 113/58; PULSE 79; TEMP 36.3; O2SAT 97
[2024-10-20] MEDS: THIOTHIXENE 5 MG 1 EACH PO ×3 (13:46→21:09)
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
[2024-10-20 20:00] VITALS: BP 104/59; PULSE 60; RESP 16; TEMP 36.4; O2SAT 100
[2024-10-21 07:46] VITALS: BP 135/63; PULSE 60; RESP 16; TEMP 36.4; O2SAT 96
[2024-10-21 12:59] VITALS: BP 130/60; PULSE 65; RESP 16; TEMP 36.4; O2SAT 98
[2024-10-21] MEDS: THIOTHIXENE 5 MG 1 EACH PO ×3 (13:01→21:06)
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
[2024-10-21 20:00] VITALS: BP 137/63; PULSE 83; RESP 16; TEMP 36.3; O2SAT 98
[2024-10-22 07:44] VITALS: BP 138/78; PULSE 100; TEMP 37.1; O2SAT 95
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
[2024-10-22] MEDS: THIOTHIXENE 5 MG 1 EACH PO ×3 (12:49→21:27)
[2024-10-22 20:00] VITALS: BP 115/58; PULSE 64; TEMP 36.3; O2SAT 95
[2024-10-23 08:00] VITALS: BP 139/71; PULSE 61; TEMP 36.4; O2SAT 96
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
[2024-10-23 09:28] LABS: Alanine Aminotransferase 9 U/L (0-40); Albumin Level 3.6 g/dL (3.5-5.0); Alkaline Phosphatase 53 U/L (39-117); Anion Gap 18 (12-20); Aspartate Amino Transferase 21 U/L (5-37); Blood Urea Nitrogen 40 mg/dL (9-16); Calcium 9.6 mg/dL (8.4-10.2); Carbon Dioxide 26 mmol/L (22-29); Chloride 98 mmol/L (96-108); Potassium 5.5 mmol/L (3.3-5.1); Sodium 136 mmol/L (135-145); Total Protein 6.1 g/dL (6.5-8.0)
[2024-10-23 09:30] LABS: Estimated Glomerular Filt Rate 7
[2024-10-23 10:06] LABS: MANUAL DIFF FLAG NO
[2024-10-23 10:11] LABS: Hematocrit 24.6 % (42.0-52.0); Hemoglobin 8.3 g/dl (14.0-18.0); Imm Gran Abs Auto 0.00 X10*3/uL (0.00-0.03); Imm Gran Pct Auto 0.0 % (0.0-0.4); Lymphocytes Absolute Auto 0.5 X10*3/uL (1.2-4.9); Mean Corpuscular HGB Conc 33.7 g/dl (31.0-36.0); Mean Corpuscular Hemoglobin 34.2 pg (27.0-33.0); Mean Corpuscular Volume 101.2 fL (80.0-98.0); NRBC Abs Auto 0.000 X10*3/uL (0.0-0.012); NRBC Pct Auto 0.0 /100WBC (0.0-0.2); Red Blood Count 2.43 X10*6/uL (4.60-5.80); White Blood Count 2.5 X10*3/uL (4.8-10.8)
[2024-10-23 10:12] LABS: Platelet Count 79 X10*3/uL (160-400)
[2024-10-23] MEDS: THIOTHIXENE 5 MG 1 EACH PO ×3 (12:21→21:16)
[2024-10-23 19:52] VITALS: BP 119/57; PULSE 72; O2SAT 98
--- NOTE | 2024-10-24 | ECG_ITS ---
Test Reason : ?AFIB Blood Pressure : */* mmHG Vent. Rate : 60 BPM Atrial Rate : 60 BPM P-R Int : 162 ms QRS Dur : 88 ms QT Int : 402 ms P-R-T Axes : 3 -15 26 degrees QTcB Int : 402 ms Sinus rhythm with Premature atrial complexes Otherwise normal ECG When compared with ECG of 24-Jul-2023 12:03, QT has shortened Referred By: Richard Mccord Electronically Signed By: Vamshi Bonilla
--- NOTE | 2024-10-24 00:10 | P.PNNP_ITS ---
Subjective Subjective Date of Service: 10/23/24 Interval history: Seen and examiend on HD Physical Exam 2 Vital Signs: Vital Signs: Last Vital Signs Temp 97.5 F 10/23/24 08:00 Pulse 72 10/23/24 19:52 Resp 16 10/21/24 20:00 BP 119/57 L 10/23/24 19:52 Pulse Ox 98 10/23/24 19:52 O2 Del Method Room Air 10/23/24 19:52 Const: General: cooperative HEENT: Head: Yes normal to inspection Face and sinus: Yes normal facial exam Mouth: Normal oral and palatal mucosa present Teeth and gingiva: d entition normal Eyes: General: appearance normal, both eyes and all related structures P upils: Equal, round and reactive pupils present Resp: Effort & Inspection: normal respiratory effort Cardio: Rate: regular rate Rhythm: regular rhythm GI: Palpation (GI): Soft to palpation and nontender : General: Yes no CVA tenderness Back/Spine/Pelvis: Back: no CVA tenderness Skin: General skin exam: no rashes or lesions noted Neuro: General: moves all extremities Cranial nerves: Yes Equal, round and reactive pupils present Extrem: Other: right toe red DIP pulses intact Psych: Appearance: grossly normal Objective Data Labs 10/23/24 10:05 10/23/24 08:32 Labs: Laboratory Results - last 24 hr 10/23/24 10/23/24 08:32 10:05 WBC 2.5 L RBC 2.43 L Hgb 8.3 L Hct 24.6 L MCV 101.2 H MCH 34.2 H MCHC 33.7 RDW 14.0 Plt Count 79 L D MPV 11.4 Immature Gran % (Auto) 0.0 Neut % (Auto) 61.8 Lymph % (Auto) 17.9 L [place] % (Auto) 16.3 H Eos % (Auto) 3.2 Baso % (Auto) 0.8 Lymph # (Auto) 0.5 L [place] # (Auto) 0.4 Eos # (Auto) 0.1 Baso # (Auto) 0.0 Abs Immat Gran (auto) 0.00 Absolute Neuts (auto) 1.6 L Absolute Nucleated RBC 0.000 Nucleated RBC % (auto) 0.0 Hold Purple Top Cancelled Sodium 136 Potassium 5.5 H D Chloride 98 Carbon Dioxide 26 Anion Gap 18 BUN 40 H Creatinine 7.58 H* Estim Creat Clear Calc TNP Estimated GFR 7 Random Glucose 74 Calcium 9.6 Total Bilirubin 0.5 AST 21 ALT 9 Alkaline Phosphatase 53 Total Protein 6.1 L Albumin 3.6 Random Vancomycin 17.9 Valproic Acid 39.0 L Microbiology Microbiology Results: Microbiology 09/20/24 13:33 Blood - Venous Blood Culture - Final No growth after 5 days. 09/20/24 13:33 Blood - Venous Blood Culture - Final No growth after 5 days. Procedures Date of Service Date of Service: 10/24/24 Assessment & Plan Assessment and plan (1) ESRD needing dialysis: Status: Acute Plan Marco Holcomb is a 69 year old male with past medical history of ESRD on HD, bipolar disorder, Afib on Eliquis, s/p TAVR, hypertension, hyperlipidemia who presented to [facility] with erratic behavior over the past few weeks. Seen by Psych for decompensated bipolar illness in the inpt psych unit. Nephrology consulted for ESRD. 1. ESRD Dialyzes MWF at [facility] via L[facility] AVF 2. Hypertension / Volume Chronically pt is taking metoprolol 25 mg daily and torsemide 100 mg non-HD days 3. Nephrogenic Anemia goal is HB 10-11 and cont EPO and Fe as noted-- given ongoin infection not a candidate for IV F but will check Fe stores nonetheless 4. Mineral Bone Disease 5. WT loss: encourage eating and suppl Recommendations: -cont HD 3x/wk using restraints and sedative meds as needed and rec by marco ( his is Hcpxy ) - routine dialysis labs ordered-- will check weekly while inpt - has pedal edema - however refused an extra UF treatment epo oreder x 1 and will q wk dependig on Hb - abx per primary team will follow w team Time Spent With Patient Time: Total time managing care of this patient today ____ minutes. Progress Note: Quality Stroke Does the patient have a stroke diagnosis?: No
[2024-10-24 06:10] VITALS: BP 115/64
[2024-10-24 08:58] VITALS: BP 123/59; PULSE 71; RESP 16; TEMP 36.4; O2SAT 97
[2024-10-24] MEDS: THIOTHIXENE 5 MG 1 EACH PO ×3 (12:06→21:38)
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
[2024-10-25 08:00] VITALS: BP 160/67; PULSE 57; RESP 18; TEMP 36.1; O2SAT 97
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
[2024-10-25] MEDS: THIOTHIXENE 5 MG 1 EACH PO ×3 (11:02→21:03)
--- NOTE | 2024-10-25 11:43 | PM.CNCAR ---
History of Present Illness History of Present Illness Date of Service: 10/25/24 Requesting physician: Richard Mccord Chief complaint: Unspecified Bipolar D/O Depression Anxiety, ECT Narrative: [age] year gentleman who we have been asked to see before electroconvulsive therapy. He has bipolar disorder, ESRD on hemodialysis, history of TAVR, failure to thrive and osteomyelitis. Noncompliance with dialysis and medications. Patient was seen while on hemodialysis today and history was limited. He denied symptoms. In particular no chest pain or shortness of breath. He is hypotensive. EKGs reviewed showing sinus rhythm 60 beats per minute, normal axis, no dynamic changes. He had echocardiography done at [facility] in 2023 showing EF 55% with no wall motion abnormalities. 26 mm Evolut pro valve in aortic position was functioning fine. 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 If so, by whom?: No Do you feel safe in your current relationship?: Yes Is there a partner from a previous relationship who is making you feel unsafe now?: No Are you made to feel afraid or neglected: No Spiritual Healthcare Practices: unknown Yazidism Healthcare Practices: unknown Cultural Healthcare Practices: unknown Advance Directives: Yes Advance Directives on File: Yes Advance Directives Date on File: 10/11/22 Do you have thoughts of harming others: None Do you have a plan to hurt others: No Plan Recently lost weight without trying: No How much weight loss: 2-13 pounds Eating poorly because of decreased appetite: No Nutrition screen score: 1 Nutrition Risks: No Nutritional Risk Poor oral hygiene: No service: No Current occupational status: disabled Sexual orientation: Straight/Heterosexual Meds Allergies Allergy/AdvReac Type Severity Reaction Status Date / Time No Known Allergies Allergy Verified 07/24/23 11:18 Active Medications: Current Medications Acetaminophen (Acetaminophen 325 Mg Tablet) 650 mg PO Q6H PRN PRN Reason: Headache/Pain, Scale 1-10 Al Hydroxide/Mg Hydroxide (Magnesium Hydrox/Alum Hydrox 30 Ml Oral.Susp) 30 ml PO Q6H PRN PRN Reason: Heartburn/Nausea Apixaban (Apixaban 2.5 Mg Tablet) 2.5 mg PO BID [facility] Last Admin: 10/25/24 08:46 Dose: Not Given Aripiprazole (Aripiprazole 20 Mg Tablet) 20 mg PO DAILY [facility] Last Admin: 10/25/24 08:42 Dose: 20 mg Aripiprazole (Aripiprazole 5 Mg Tablet) 5 mg PO DAILY [facility] Last Admin: 10/25/24 08:39 Dose: 5 mg Benztropine Mesylate (Benztropine Mesylate 1 Mg Tablet) 1 mg PO BEDTIME PRN PRN Reason: EPS Benztropine Mesylate (Benztropine Mesylate 1 Mg Tablet) 2 mg PO DAILY [facility] Last Admin: 10/25/24 08:44 Dose: Not Given Bisacodyl (Bisacodyl 5 Mg Tablet.Dr) 5 mg PO BEDTIME PRN PRN Reason: Constipation Last Admin: 09/19/24 09:54 Dose: 5 mg Divalproex Sodium (Divalproex Sodium Er 500 Mg Tab.Er.24h) 1,000 mg PO BEDTIME [facility] Last Admin: 10/24/24 22:28 Dose: 1,000 mg Haloperidol Lactate (Haloperidol Lactate 5 Mg/Ml Vial) 5 mg IM TID PRN PRN Reason: if refuses Thiothexine Vancomycin HCl 500 mg/ Sodium (Chloride) 110 mls @ 110 mls/hr IV ONCE ONE Stop: 10/07/24 16:59 Magnesium Hydroxide (Milk Of Magnesia 30 Ml Oral.Susp) 30 ml PO DAILY PRN PRN Reason: Constipation Metoprolol Tartrate (Metoprolol Tartrate 25 Mg Tablet) 25 mg PO DAILY [facility]; Protocol Last Admin: 10/25/24 08:46 Dose: Not Given Multivitamins/Vitamin C (Multivitamin Tablet) 1 tab PO DAILY [facility] Last Admin: 10/25/24 08:45 Dose: Not Given Nicotine (Nicotine 21 Mg Patch.Td24) 21 mg TRANSDERMA DAILY PRN PRN Reason: smoking cessation Nicotine Polacrilex (Nicotine Polacrilex 2 Mg Gum) 4 mg BUCCAL Q2H PRN PRN Reason: Nicotine Cravings Patient Own Medication Thiothixene 5mg Tab 1 each PO TID@1200,1600,2100 DEVON Last Admin: 10/25/24 11:02 Dose: 1 each Olanzapine (Olanzapine 10 Mg Vial) 10 mg IM DAILY PRN PRN Reason: if refuses PO Abilify 20mg Last Admin: 10/11/24 13:48 Dose: 10 mg Olanzapine (Olanzapine 10 Mg Vial) 5 mg IM DAILY PRN PRN Reason: give if refuses Depakote Last Admin: 09/27/24 22:50 Dose: 5 mg Pharmacy Consult (Consult Rx Vancomycin Dosing) 1 each MISCELLANE DAILY PRN PRN Reason: Consult order Torsemide (Torsemide 20 Mg Tablet) 100 mg PO TuThSa@0900 DEVON; Protocol Last Admin: 10/24/24 08:57 Dose: Not Given Trazodone HCl (Trazodone Hcl 50 Mg Tablet) 50 mg PO BEDTIME MRX1 PRN PRN Reason: Insomnia Home Medications ?Medication ?Instructions ?Recorded ?Confirmed ?Last Taken ?Type apixaban 2.5 mg tablet 2.5 mg PO BID 09/05/24 09/05/24 Unknown History aripiprazole 5 mg tablet 5 mg PO DAILY 09/05/24 09/05/24 Unknown History benztropine 1 mg tablet 1 mg PO BEDTIME PRN EPS 09/05/24 09/05/24 Unknown History benztropine 2 mg tablet 2 mg PO DAILY 09/05/24 09/05/24 Unknown History divalproex 500 mg tablet,extended 500 mg PO DAILY 09/05/24 09/05/24 Unknown History release 24 hr metoprolol tartrate 25 mg tablet 25 mg PO DAILY 09/05/24 09/05/24 Unknown History torsemide 100 mg tablet See Rx Instructions .Route .COMPLEX 09/05/24 09/05/24 Unknown History Physical Exam Vital Signs: Vital Signs: Last Vital Signs Temp 97.0 F 10/25/24 08:00 Pulse 57 10/25/24 08:00 Resp 18 10/25/24 08:00 BP 160/67 H 10/25/24 08:00 Pulse Ox 97 10/25/24 08:00 O2 Del Method Room Air 10/25/24 08:00 GENERAL APPEARANCE: On hemodialysis. No acute distress. NECK: no carotid bruit, no jugular venous distention. SKIN: no suspicious lesions, warm and dry. HEART: Systolic murmur aortic area, regular rate and rhythm. LUNGS: clear to auscultation bilaterally. ABDOMEN: soft, nontender. EXTREMITIES: no edema. PERIPHERAL PULSES: equal. Objective Labs and Meds 10/23/24 10:05 10/23/24 08:32 Assessment and Plan (1) Bipolar disorder: Status: Acute (2) Preop cardiovascular exam: Status: Acute Plan 69-year-old gentleman with history of aortic stenosis status post transcatheter aortic valve replacement, end-stage renal disease on hemodialysis, failure to thrive and bipolar disorder. He is currently inpatient for psychiatric issues. He has been considered for electroconvulsive therapy. He is denying any symptoms currently. There are questions about compliance with medications and medical care. EKGs normal. He had echocardiography toward the end of last year which showed normal LV function and normally functioning Evolut bioprosthetic valve. Overall intermediate risk for perioperative complications. Should continue metoprolol on the day of procedure. Post dialysis blood pressure should be monitor and he should be encouraged to take his medications. Signing off. Thank you for allowing me to participate in the care of your patient. Please feel free to contact me if you have any questions. Procedures Date of Service Date of Service: 10/25/24
[2024-10-25 15:09] VITALS: BP 115/59; PULSE 62; O2SAT 96
[2024-10-25 15:32] LABS: Folate 8.8 ng/mL (> or = 4.0); Vitamin B12 382 pg/mL (200-900)
--- NOTE | 2024-10-25 20:40 | P.PNNP_ITS ---
Subjective Subjective Date of Service: 10/25/24 Interval history: Met with patient during HD Physical Exam 2 Exam: Exam: cvs: s1s2 RS; cta Abd; soft Vital Signs: Vital Signs: Last Vital Signs Temp 97.0 F 10/25/24 08:00 Pulse 62 10/25/24 15:09 Resp 18 10/25/24 08:00 BP 115/59 L 10/25/24 15:09 Pulse Ox 96 10/25/24 15:09 O2 Del Method Room Air 10/25/24 15:09 Objective Data Labs 10/23/24 10:05 10/23/24 08:32 Labs: Laboratory Results - last 24 hr 10/25/24 10/25/24 11:26 14:32 Vitamin B12 382 Folate 8.8 Random Vancomycin 19.3 Ref Lab Test Result Cancelled Microbiology Microbiology Results: Microbiology 09/20/24 13:33 Blood - Venous Blood Culture - Final No growth after 5 days. 09/20/24 13:33 Blood - Venous Blood Culture - Final No growth after 5 days. Procedures Date of Service Date of Service: 10/25/24 Assessment & Plan Assessment and plan (1) ESRD (end stage renal disease): Status: Acute Plan Marco Holcomb is a 69 year old male with past medical history of ESRD on HD, bipolar disorder, Afib on Eliquis, s/p TAVR, hypertension, hyperlipidemia who presented to [facility] with erratic behavior over the past few weeks. Seen by Psych for decompensated bipolar illness in the inpt psych unit. Nephrology consulted for ESRD. 1. ESRD Dialyzes MWF at [facility] via LUE AVF 2. Hypertension / Volume Chronically pt is taking metoprolol 25 mg daily and torsemide 100 mg non-HD days 3. Nephrogenic Anemia goal is HB 10-11 and cont EPO and Fe as noted-- given ongoin infection not a candidate for IV F but will check Fe stores nonetheless 4. Mineral Bone Disease 5. WT loss: encourage eating and suppl Recommendations: -cont HD 3x/wk using restraints and sedative meds as needed and rec by marco ( his is Hcpxy ) - routine dialysis labs ordered-- - has pedal edema - however refused an extra UF treatment epo q wk dependig on Hb - abx per primary team will follow w team Time Spent With Patient Time: Total time managing care of this patient today ____ minutes. Progress Note: Quality Stroke Does the patient have a stroke diagnosis?: No
[2024-10-26 08:23] VITALS: BP 145/89; PULSE 60; TEMP 35.9; O2SAT 100
[2024-10-26] MEDS: THIOTHIXENE 5 MG 1 EACH PO ×3 (13:09→21:04)
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
[2024-10-26 20:00] VITALS: BP 127/60; PULSE 73; RESP 16; TEMP 36.1; O2SAT 96
[2024-10-27 08:24] VITALS: BP 143/67; PULSE 64; TEMP 36.6; O2SAT 97
[2024-10-27] MEDS: THIOTHIXENE 5 MG 1 EACH PO ×3 (12:15→21:30)
[2024-10-27 20:00] VITALS: BP 112/58; PULSE 69; TEMP 36.1; O2SAT 96
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
[2024-10-28 08:00] VITALS: BP 118/88; PULSE 72; RESP 16; TEMP 36.2; O2SAT 92
[2024-10-28 09:40] LABS: Potassium 5.2 mmol/L (3.3-5.1)
[2024-10-28] MEDS: THIOTHIXENE 5 MG 1 EACH PO ×2 (15:04→22:21)
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
--- NOTE | 2024-10-28 19:40 | PC.NURSE ---
Late entry for 1600 Marco went to dialysis at 0800. Marco had returned from dialysis at 1320, he had additional blood loss in dialysis that required him to stay there a bit longer. Upon return he is steady on his feet, wont engage to say if he is dizzy or not. He also refused a vital signs check at that time. He was placed on 5 minute safety checks due to increased risk for falls. Dr Mccord aware. He declined to take any PO medications until after he ate something. He refused his tray and waited for a second and then a third. He finally finished eating and was agreeable to taking only abilify, haldol and his thiothixine at 1530. He refused all other medications.
[2024-10-28 20:00] VITALS: BP 99/56; PULSE 76; TEMP 36.6; O2SAT 98
--- NOTE | 2024-10-28 23:50 | P.PNNP_ITS ---
Subjective Subjective Date of Service: 10/28/24 Interval history: Seen and examined at Dialysis Physical Exam 2 Vital Signs: Vital Signs: Last Vital Signs Temp 97.8 F 10/28/24 20:00 Pulse 76 10/28/24 20:00 Resp 16 10/28/24 08:00 BP 99/56 L 10/28/24 20:00 Pulse Ox 98 10/28/24 20:00 O2 Del Method Room Air 10/28/24 20:00 Const: General: cooperative HEENT: Head: Yes normal to inspection Face and sinus: Yes normal facial exam Mouth: Normal oral and palatal mucosa present Teeth and gingiva: d entition normal Eyes: General: appearance normal, both eyes and all related structures P upils: Equal, round and reactive pupils present Resp: Effort & Inspection: normal respiratory effort Cardio: Rate: regular rate Rhythm: regular rhythm GI: Palpation (GI): Soft to palpation and nontender : General: Yes no CVA tenderness Back/Spine/Pelvis: Back: no CVA tenderness Skin: General skin exam: no rashes or lesions noted Neuro: General: moves all extremities Cranial nerves: Yes Equal, round and reactive pupils present Extrem: Other: right toe red DIP pulses intact Psych: Appearance: grossly normal Objective Data Labs 10/23/24 10:05 10/28/24 09:24 Labs: Laboratory Results - last 24 hr 10/28/24 10/28/24 09:22 09:24 Hold Purple Top SEE NOTE Potassium 5.2 H Hold Yellow Top See Note Random Vancomycin 17.2 Microbiology Microbiology Results: Microbiology 09/20/24 13:33 Blood - Venous Blood Culture - Final No growth after 5 days. 09/20/24 13:33 Blood - Venous Blood Culture - Final No growth after 5 days. Procedures Date of Service Date of Service: 10/28/24 Assessment & Plan Assessment and plan (1) ESRD (end stage renal disease): Status: Acute Plan Marco Holcomb is a 69 year old male with past medical history of ESRD on HD, bipolar disorder, Afib on Eliquis, s/p TAVR, hypertension, hyperlipidemia who presented to [facility] with erratic behavior over the past few weeks. Seen by Psych for decompensated bipolar illness in the inpt psych unit. Nephrology consulted for ESRD. 1. ESRD Dialyzes MWF at [facility] via LUE AVF 2. Hypertension / Volume Chronically pt is taking metoprolol 25 mg daily and torsemide 100 mg non-HD days 3. Nephrogenic Anemia goal is HB 10-11 and cont EPO and Fe as noted-- given ongoin infection not a candidate for IV F but will check Fe stores nonetheless 4. Mineral Bone Disease 5. WT loss: encourage eating and suppl Recommendations: -cont HD 3x/wk using restraints and sedative meds as needed and rec by marco ( his is Hcpxy ) - routine dialysis labs ordered weekly *( can draw on HD) - has pedal edema - however refused an extra UF treatment epo q wk dependig on Hb - abx per primary team will follow w team Time Spent With Patient Time: Total time managing care of this patient today ____ minutes. Progress Note: Quality Stroke Does the patient have a stroke diagnosis?: No
[2024-10-29 08:00] VITALS: BP 123/68; PULSE 70; TEMP 36.5; O2SAT 93
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
[2024-10-29] MEDS: THIOTHIXENE 5 MG 1 EACH PO ×3 (12:13→21:19)
[2024-10-29 20:00] VITALS: BP 105/55; PULSE 75; TEMP 36.3; O2SAT 95
[2024-10-30 08:34] LABS: MANUAL DIFF FLAG NO
[2024-10-30 08:39] LABS: Hematocrit 21.2 % (42.0-52.0); Hemoglobin 7.2 g/dl (14.0-18.0); Imm Gran Abs Auto 0.00 X10*3/uL (0.00-0.03); Imm Gran Pct Auto 0.0 % (0.0-0.4); Lymphocytes Absolute Auto 0.6 X10*3/uL (1.2-4.9); Mean Corpuscular HGB Conc 34.0 g/dl (31.0-36.0); Mean Corpuscular Hemoglobin 33.8 pg (27.0-33.0); Mean Corpuscular Volume 99.5 fL (80.0-98.0); NRBC Abs Auto 0.000 X10*3/uL (0.0-0.012); NRBC Pct Auto 0.0 /100WBC (0.0-0.2); Red Blood Count 2.13 X10*6/uL (4.60-5.80); White Blood Count 3.1 X10*3/uL (4.8-10.8)
[2024-10-30 08:46] LABS: Platelet Count 74 X10*3/uL (160-400)
[2024-10-30 09:03] LABS: Alanine Aminotransferase 11 U/L (0-40); Albumin Level 3.4 g/dL (3.5-5.0); Alkaline Phosphatase 52 U/L (39-117); Anion Gap 16 (12-20); Aspartate Amino Transferase 26 U/L (5-37); Blood Urea Nitrogen 47 mg/dL (9-16); Calcium 8.8 mg/dL (8.4-10.2); Carbon Dioxide 27 mmol/L (22-29); Chloride 94 mmol/L (96-108); Estimated Glomerular Filt Rate 9; Potassium 4.8 mmol/L (3.3-5.1); Sodium 132 mmol/L (135-145); Total Protein 5.6 g/dL (6.5-8.0)
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
[2024-10-30] MEDS: THIOTHIXENE 5 MG 1 EACH PO ×3 (12:00→21:05)
[2024-10-30 20:00] VITALS: BP 122/58; PULSE 63; RESP 16; TEMP 36.6; O2SAT 99
--- NOTE | 2024-10-31 00:51 | P.PNNP_ITS ---
Subjective Subjective Date of Service: 10/30/24 Interval history: Seen and exmained,events noted current;y on HD Physical Exam 2 Vital Signs: Vital Signs: Last Vital Signs Temp 97.8 F 10/30/24 20:00 Pulse 63 10/30/24 20:00 Resp 16 10/30/24 20:00 BP 122/58 L 10/30/24 20:00 Pulse Ox 99 10/30/24 20:00 O2 Del Method Room Air 10/30/24 20:00 Const: General: cooperative HEENT: Head: Yes normal to inspection Face and sinus: Yes normal facial exam Mouth: Normal oral and palatal mucosa present Teeth and gingiva: d entition normal Eyes: General: appearance normal, both eyes and all related structures P upils: Equal, round and reactive pupils present Resp: Effort & Inspection: normal respiratory effort Cardio: Rate: regular rate Rhythm: regular rhythm GI: Palpation (GI): Soft to palpation and nontender : General: Yes no CVA tenderness Back/Spine/Pelvis: Back: no CVA tenderness Skin: General skin exam: no rashes or lesions noted Neuro: General: moves all extremities Cranial nerves: Yes Equal, round and reactive pupils present Extrem: Other: right toe red DIP pulses intact Psych: Appearance: grossly normal Objective Data Labs 10/30/24 08:28 10/30/24 08:28 Labs: Laboratory Results - last 24 hr 10/30/24 08:28 WBC 3.1 L RBC 2.13 L Hgb 7.2 L Hct 21.2 L MCV 99.5 H MCH 33.8 H MCHC 34.0 RDW 13.8 Plt Count 74 L MPV 10.8 Immature Gran % (Auto) 0.0 Neut % (Auto) 62.6 Lymph % (Auto) 19.2 L [place] % (Auto) 14.4 H Eos % (Auto) 3.2 Baso % (Auto) 0.6 Lymph # (Auto) 0.6 L [place] # (Auto) 0.5 Eos # (Auto) 0.1 Baso # (Auto) 0.0 Abs Immat Gran (auto) 0.00 Absolute Neuts (auto) 2.0 Absolute Nucleated RBC 0.000 Nucleated RBC % (auto) 0.0 Sodium 132 L Potassium 4.8 Chloride 94 L Carbon Dioxide 27 Anion Gap 16 BUN 47 H Creatinine 6.04 H* Estim Creat Clear Calc TNP Estimated GFR 9 Random Glucose 145 H Calcium 8.8 D Phosphorus 5.0 H Total Bilirubin 0.4 AST 26 ALT 11 Alkaline Phosphatase 52 Total Protein 5.6 L Albumin 3.4 L Hold Red Top See Note Random Vancomycin 13.9 L Microbiology Microbiology Results: Microbiology 09/20/24 13:33 Blood - Venous Blood Culture - Final No growth after 5 days. 09/20/24 13:33 Blood - Venous Blood Culture - Final No growth after 5 days. Procedures Date of Service Date of Service: 10/31/24 Assessment & Plan Assessment and plan (1) ESRD (end stage renal disease): Status: Acute Plan Marco Holcomb is a 69 year old male with past medical history of ESRD on HD, bipolar disorder, Afib on Eliquis, s/p TAVR, hypertension, hyperlipidemia who [place] [facility] [place] over the past few weeks. Seen by Psych for decompensated bipolar illness in the inpt psych unit. Nephrology consulted for ESRD. 1. ESRD Dialyzes MWF at [facility] via LUE AVF 2. Hypertension / Volume Chronically pt is taking metoprolol 25 mg daily and torsemide 100 mg non-HD days 3. Nephrogenic Anemia goal is HB 10-11 and cont EPO and Fe as noted-- given ongoin infection not a candidate for IV F but will check Fe stores nonetheless 4. Mineral Bone Disease 5. WT loss: encourage eating and suppl Recommendations: -cont HD 3x/wk using restraints and sedative meds as needed and rec by marco ( his is Hcpxy ) - routine dialysis labs ordered weekly *( can draw on HD) - has pedal edema - incr fkudi removal at HD epo q wk dependig on Hb - abx per primary team will follow w team Time Spent With Patient Time: Total time managing care of this patient today ____ minutes. Progress Note: Quality Stroke Does the patient have a stroke diagnosis?: No
[2024-10-31 08:00] VITALS: BP 135/72; PULSE 98; RESP 18; TEMP 37; O2SAT 94
[2024-10-31] MEDS: THIOTHIXENE 5 MG 1 EACH PO ×3 (12:03→21:23)
[2024-11-01 08:00] VITALS: BP 165/74; PULSE 67; RESP 18; TEMP 36.1; O2SAT 96
[2024-11-01 09:05] VITALS: BP 165/74; PULSE 67
--- NOTE | 2024-11-01 10:34 | P.PNPSI_ITS ---
Subjective Subjective Date of Service: 10/31/24 Reason For Visit: Unspecified Bipolar D/O Depression Anxiety, ECT Interim History: late entry note for patient seen on 10/31/24 Patient denies any limit urination; patient does seem to be improving a bit with Haldol agrees that he needs dialysis and possibly antibiotics for his foot Mental Status Exam Mental Status Exam Narrative: . Pt is alert and oriented; behavior is calm, a little brighter and more willing to engage on approach; amenable to care; calm; patient is not in distress; dressed in hospital pants, T-shirt, scruffy, with adequate hygiene; mood is described as ok and affect constricted though a little brighter; eye contact avoidant at times; Speech is normal rate, volume and prosody and not pressured; psychomotor retardation present but maybe a little less; thought process is goal directed; Thought content is on not wanting treatment, discharge; no expressed paranoid delusions; denies any SI/HI. Denies AVH; does not appear to be internally preoccupied. Patients insight and judgment impaired, but has improved some. Diagnostics Vital Signs (24Hr): Vital Signs - 24 hr 11/01/24 09:05 Pulse Rate 67 Blood Pressure 165/74 H Labs 11/06/24 09:55 11/06/24 09:55 Labs: Laboratory Results - last 48 hr 10/30/24 08:28 Random Vancomycin 13.9 L Medications Medications Current Medications Acetaminophen (Acetaminophen 325 Mg Tablet) 650 mg PO Q6H PRN PRN Reason: Headache/Pain, Scale 1-10 Al Hydroxide/Mg Hydroxide (Magnesium Hydrox/Alum Hydrox 30 Ml Oral.Susp) 30 ml PO Q6H PRN PRN Reason: Heartburn/Nausea Apixaban (Apixaban 2.5 Mg Tablet) 2.5 mg PO BID [facility] Last Admin: 11/01/24 09:01 Dose: Not Given Aripiprazole (Aripiprazole 20 Mg Tablet) 20 mg PO DAILY [facility] Last Admin: 11/01/24 08:57 Dose: 20 mg Aripiprazole (Aripiprazole 5 Mg Tablet) 5 mg PO DAILY [facility] Last Admin: 11/01/24 08:58 Dose: 5 mg Benztropine Mesylate (Benztropine Mesylate 1 Mg Tablet) 1 mg PO BEDTIME PRN PRN Reason: EPS Benztropine Mesylate (Benztropine Mesylate 1 Mg Tablet) 2 mg PO DAILY [facility] Last Admin: 11/01/24 09:05 Dose: Not Given Bisacodyl (Bisacodyl 5 Mg Tablet.Dr) 5 mg PO BEDTIME PRN PRN Reason: Constipation Last Admin: 09/19/24 09:54 Dose: 5 mg Divalproex Sodium (Divalproex Sodium Er 500 Mg Tab.Er.24h) 1,000 mg PO BEDTIME [facility] Last Admin: 10/31/24 22:02 Dose: 1,000 mg Haloperidol (Haloperidol 5 Mg Tablet) 5 mg PO TID [facility] Last Admin: 11/01/24 08:57 Dose: 5 mg Haloperidol Lactate (Haloperidol Lactate 5 Mg/Ml Vial) 5 mg IM TID PRN PRN Reason: if refuse Thiothexine orHaldol Last Admin: 10/26/24 10:30 Dose: 5 mg Vancomycin HCl 500 mg/ Sodium (Chloride) 110 mls @ 110 mls/hr IV ONCE ONE Stop: 10/07/24 16:59 Vancomycin HCl 1,000 mg/ (Sodium Chloride) 270 mls @ 270 mls/hr IV ONCE ONE Stop: 11/01/24 10:59 Magnesium Hydroxide (Milk Of Magnesia 30 Ml Oral.Susp) 30 ml PO DAILY PRN PRN Reason: Constipation Metoprolol Tartrate (Metoprolol Tartrate 25 Mg Tablet) 25 mg PO DAILY [facility]; Protocol Last Admin: 11/01/24 09:05 Dose: Not Given Multivitamins/Vitamin C (Multivitamin Tablet) 1 tab PO DAILY [facility] Last Admin: 11/01/24 09:06 Dose: Not Given Nicotine (Nicotine 21 Mg Patch.Td24) 21 mg TRANSDERMA DAILY PRN PRN Reason: smoking cessation Nicotine Polacrilex (Nicotine Polacrilex 2 Mg Gum) 4 mg BUCCAL Q2H PRN PRN Reason: Nicotine Cravings Patient Own Medication Thiothixene 5mg Tab 1 each PO TID@1200,1600,2100 [facility] Last Admin: 10/31/24 21:23 Dose: 1 each Olanzapine (Olanzapine 10 Mg Vial) 10 mg IM DAILY PRN PRN Reason: if refuses PO Abilify 20mg Last Admin: 10/11/24 13:48 Dose: 10 mg Olanzapine (Olanzapine 10 Mg Vial) 5 mg IM DAILY PRN PRN Reason: give if refuses Depakote Last Admin: 09/27/24 22:50 Dose: 5 mg Pharmacy Consult (Consult Rx Vancomycin Dosing) 1 each MISCELLANE DAILY PRN PRN Reason: Consult order Torsemide (Torsemide 20 Mg Tablet) 100 mg PO TuThSa@0900 [facility]; Protocol Last Admin: 10/31/24 09:43 Dose: Not Given Trazodone HCl (Trazodone Hcl 50 Mg Tablet) 50 mg PO BEDTIME MRX1 PRN PRN Reason: Insomnia Allergies Allergies Allergy/AdvReac Type Severity Reaction Status Date / Time No Known Allergies Allergy Verified 07/24/23 11:18 Assessment & Plan Assessment & Plan (1) ESRD (end stage renal disease): Status: Acute Code(s): N18.6 - End stage renal disease Plan Marco Holcomb is a 69 year old male with past medical history of ESRD on HD, bipolar disorder, Afib on Eliquis, s/p TAVR, hypertension, hyperlipidemia who presented to [facility] [place] with erratic behavior over the past few weeks. Seen by Psych for decompensated bipolar illness in the inpt psych unit. Nephrology consulted for ESRD. 1. ESRD Dialyzes MWF at [facility] via LUE AVF 2. Hypertension / Volume Chronically pt is taking metoprolol 25 mg daily and torsemide 100 mg non-HD days 3. Nephrogenic Anemia goal is HB 10-11 and cont EPO and Fe as noted-- given ongoin infection not a candidate for IV F but will check Fe stores nonetheless 4. Mineral Bone Disease 5. WT loss: encourage eating and suppl Recommendations: -cont HD 3x/wk using restraints and sedative meds as needed and rec by marco ( his is Hcpxy ) - routine dialysis labs ordered weekly *( can draw on HD) - has pedal edema - incr fkudi removal at HD epo q wk dependig on Hb - abx per primary team will follow w team Patient educated on: diagnosis and medication risk/benefits Informed Consent: understands, does not understand and further education needed Reason for continued inpatient stay Substantial Risk for: inability to function, stable for discharge and rapid decompensation Time Spent With Patient Time: Total time managing care of this patient today ____ minutes.
[2024-11-01 13:17] LABS: MANUAL DIFF FLAG NO
[2024-11-01 13:27] LABS: Hemoglobin 7.3 g/dl (14.0-18.0); Imm Gran Abs Auto 0.01 X10*3/uL (0.00-0.03); Imm Gran Pct Auto 0.4 % (0.0-0.4); Lymphocytes Absolute Auto 0.4 X10*3/uL (1.2-4.9); Mean Corpuscular HGB Conc 34.8 g/dl (31.0-36.0); Mean Corpuscular Hemoglobin 33.8 pg (27.0-33.0); Mean Corpuscular Volume 97.2 fL (80.0-98.0); NRBC Abs Auto 0.000 X10*3/uL (0.0-0.012); NRBC Pct Auto 0.0 /100WBC (0.0-0.2); Red Blood Count 2.16 X10*6/uL (4.60-5.80); White Blood Count 2.8 X10*3/uL (4.8-10.8)
[2024-11-01 13:29] LABS: Hematocrit 21.0 % (42.0-52.0); Platelet Count 80 X10*3/uL (160-400)
[2024-11-01 13:53] LABS: Iron 70 mcg/dL (45-160); Percent Iron Saturation 38 % (15-50); Total Iron Binding Capacity 182 mcg/dL (228-428); Unsaturated Iron Binding 112 ug/dL
[2024-11-01] MEDS: THIOTHIXENE 5 MG 1 EACH PO ×2 (18:09→21:06)
--- NOTE | 2024-11-01 18:23 | PC.NURSE ---
Patient is s/p dialysis. Dressing to AV fistula intact. Pt trying to take this dressing off. Educated to keep it on to prevent bleeding. Pt received 3 PM Haldol and Thiothixene when back to the unit from dialysis/ per district loss prevention manager provider Priya carney.
--- NOTE | 2024-11-01 23:37 | HO.PSYCHPN ---
Subjective Subjective Date of Service: 11/01/24 Reason For Visit: Unspecified Bipolar D/O Depression Anxiety, ECT Interim History: Met with patient; discussed with team Patient pleasant; no complaints but wants family meeting next Monday to discuss discharge, which is set up Mental Status Exam Mental Status Exam Narrative: . Pt is alert and oriented; behavior is calm, brighter and cooperative; much more amenable to care, though still refuses certain things; calm; patient is not in distress; dressed in hospital pants, T-shirt, scruffy, with adequate hygiene; mood is described as ok and affect constricted though a little brighter; eye contact adequate; Speech is normal rate, volume and prosody and not pressured; no psychomotor retardation; thought process is goal directed; Thought content is on wanting discharge; no expressed paranoid delusions; denies any SI/HI. Denies AVH; does not appear to be internally preoccupied. Patients insight and judgment impaired, but has improved some. Diagnostics Vital Signs (24Hr): Vital Signs - 24 hr 11/01/24 08:00 11/01/24 09:05 Temperature 96.9 F Pulse Rate 67 67 Respiratory Rate 18 Blood Pressure 165/74 H 165/74 H Pulse Oximetry 96 Oxygen Delivery Method Room Air Labs 11/06/24 09:55 11/06/24 09:55 Labs: Laboratory Results - last 48 hr 11/01/24 11/01/24 11/01/24 12:54 12:54 12:54 WBC Cancelled 2.8 L RBC Cancelled 2.16 L Hgb Cancelled Hct MCV MCH MCHC RDW Plt Count MPV Immature Gran % (Auto) Neut % (Auto) Lymph % (Auto) [place] % (Auto) Eos % (Auto) Baso % (Auto) Lymph # (Auto) [place] # (Auto) Eos # (Auto) Baso # (Auto) Abs Immat Gran (auto) Absolute Neuts (auto) Absolute Nucleated RBC Nucleated RBC % (auto) Iron TIBC % Saturation Unsat Iron Binding Random Vancomycin 11/01/24 11/01/24 11/01/24 12:54 12:54 12:54 WBC RBC Hgb 7.3 L Hct Cancelled 21.0 L* MCV Cancelled 97.2 MCH Cancelled MCHC RDW Plt Count MPV Immature Gran % (Auto) Neut % (Auto) Lymph % (Auto) [place] % (Auto) Eos % (Auto) Baso % (Auto) Lymph # (Auto) [place] # (Auto) Eos # (Auto) Baso # (Auto) Abs Immat Gran (auto) Absolute Neuts (auto) Absolute Nucleated RBC Nucleated RBC % (auto) Iron TIBC % Saturation Unsat Iron Binding Random Vancomycin 11/01/24 11/01/24 11/01/24 12:54 12:54 12:54 WBC RBC Hgb Hct MCV MCH 33.8 H MCHC Cancelled 34.8 RDW Cancelled 13.6 Plt Count Cancelled MPV Immature Gran % (Auto) Neut % (Auto) Lymph % (Auto) [place] % (Auto) Eos % (Auto) Baso % (Auto) Lymph # (Auto) [place] # (Auto) Eos # (Auto) Baso # (Auto) Abs Immat Gran (auto) Absolute Neuts (auto) Absolute Nucleated RBC Nucleated RBC % (auto) Iron TIBC % Saturation Unsat Iron Binding Random Vancomycin 11/01/24 11/01/24 11/01/24 12:54 12:54 12:54 WBC RBC Hgb Hct MCV MCH MCHC RDW Plt Count 80 L MPV Cancelled 11.0 Immature Gran % (Auto) 0.4 Neut % (Auto) 66.3 Lymph % (Auto) 15.4 L [place] % (Auto) 14.3 H Eos % (Auto) 2.9 Baso % (Auto) 0.7 Lymph # (Auto) 0.4 L [place] # (Auto) 0.4 Eos # (Auto) 0.1 Baso # (Auto) 0.0 Abs Immat Gran (auto) 0.01 Absolute Neuts (auto) 1.9 L Absolute Nucleated RBC Cancelled 0.000 Nucleated RBC % (auto) Cancelled Iron TIBC % Saturation Unsat Iron Binding Random Vancomycin 11/01/24 12:54 WBC RBC Hgb Hct MCV MCH MCHC RDW Plt Count MPV Immature Gran % (Auto) Neut % (Auto) Lymph % (Auto) [place] % (Auto) Eos % (Auto) Baso % (Auto) Lymph # (Auto) [place] # (Auto) Eos # (Auto) Baso # (Auto) Abs Immat Gran (auto) Absolute Neuts (auto) Absolute Nucleated RBC Nucleated RBC % (auto) 0.0 Iron 70 TIBC 182 L % Saturation 38 Unsat Iron Binding 112 Random Vancomycin 15.6 Medications Medications Current Medications Acetaminophen (Acetaminophen 325 Mg Tablet) 650 mg PO Q6H PRN PRN Reason: Headache/Pain, Scale 1-10 Al Hydroxide/Mg Hydroxide (Magnesium Hydrox/Alum Hydrox 30 Ml Oral.Susp) 30 ml PO Q6H PRN PRN Reason: Heartburn/Nausea Apixaban (Apixaban 2.5 Mg Tablet) 2.5 mg PO BID [facility] Last Admin: 11/01/24 22:00 Dose: Not Given Aripiprazole (Aripiprazole 20 Mg Tablet) 20 mg PO DAILY [facility] Last Admin: 11/01/24 08:57 Dose: 20 mg Aripiprazole (Aripiprazole 5 Mg Tablet) 5 mg PO DAILY [facility] Last Admin: 11/01/24 08:58 Dose: 5 mg Benztropine Mesylate (Benztropine Mesylate 1 Mg Tablet) 1 mg PO BEDTIME PRN PRN Reason: EPS Benztropine Mesylate (Benztropine Mesylate 1 Mg Tablet) 2 mg PO DAILY [facility] Last Admin: 11/01/24 09:05 Dose: Not Given Bisacodyl (Bisacodyl 5 Mg Tablet.Dr) 5 mg PO BEDTIME PRN PRN Reason: Constipation Last Admin: 09/19/24 09:54 Dose: 5 mg Divalproex Sodium (Divalproex Sodium Er 500 Mg Tab.Er.24h) 1,000 mg PO BEDTIME [facility] Last Admin: 11/01/24 21:56 Dose: 1,000 mg Haloperidol (Haloperidol 5 Mg Tablet) 5 mg PO TID [facility] Last Admin: 11/01/24 21:56 Dose: 5 mg Haloperidol Lactate (Haloperidol Lactate 5 Mg/Ml Vial) 5 mg IM TID PRN PRN Reason: if refuse Thiothexine orHaldol Last Admin: 10/26/24 10:30 Dose: 5 mg Vancomycin HCl 500 mg/ Sodium (Chloride) 110 mls @ 110 mls/hr IV ONCE ONE Stop: 10/07/24 16:59 Magnesium Hydroxide (Milk Of Magnesia 30 Ml Oral.Susp) 30 ml PO DAILY PRN PRN Reason: Constipation Metoprolol Tartrate (Metoprolol Tartrate 25 Mg Tablet) 25 mg PO DAILY [facility]; Protocol Last Admin: 11/01/24 09:05 Dose: Not Given Multivitamins/Vitamin C (Multivitamin Tablet) 1 tab PO DAILY [facility] Last Admin: 11/01/24 09:06 Dose: Not Given Nicotine (Nicotine 21 Mg Patch.Td24) 21 mg TRANSDERMA DAILY PRN PRN Reason: smoking cessation Nicotine Polacrilex (Nicotine Polacrilex 2 Mg Gum) 4 mg BUCCAL Q2H PRN PRN Reason: Nicotine Cravings Patient Own Medication Thiothixene 5mg Tab 1 each PO TID@1200,1600,2100 [facility] Last Admin: 11/01/24 21:06 Dose: 1 each Olanzapine (Olanzapine 10 Mg Vial) 10 mg IM DAILY PRN PRN Reason: if refuses PO Abilify 20mg Last Admin: 10/11/24 13:48 Dose: 10 mg Olanzapine (Olanzapine 10 Mg Vial) 5 mg IM DAILY PRN PRN Reason: give if refuses Depakote Last Admin: 09/27/24 22:50 Dose: 5 mg Pharmacy Consult (Consult Rx Vancomycin Dosing) 1 each MISCELLANE DAILY PRN PRN Reason: Consult order Torsemide (Torsemide 20 Mg Tablet) 100 mg PO TuThSa@0900 [facility]; Protocol Last Admin: 10/31/24 09:43 Dose: Not Given Trazodone HCl (Trazodone Hcl 50 Mg Tablet) 50 mg PO BEDTIME MRX1 PRN PRN Reason: Insomnia Allergies Allergies Allergy/AdvReac Type Severity Reaction Status Date / Time No Known Allergies Allergy Verified 07/24/23 11:18 Assessment & Plan Assessment & Plan (1) ESRD (end stage renal disease): Status: Acute Code(s): N18.6 - End stage renal disease Plan Marco Holcomb is a 69 year old male with past medical history of ESRD on HD, bipolar disorder, Afib on Eliquis, s/p TAVR, hypertension, hyperlipidemia who [place] [facility] [place] over the past few weeks. Seen by Psych for decompensated bipolar illness in the inpt psych unit. Nephrology consulted for ESRD. 1. ESRD Dialyzes MWF at [facility] via LUE AVF 2. Hypertension / Volume Chronically pt is taking metoprolol 25 mg daily and torsemide 100 mg non-HD days 3. Nephrogenic Anemia goal is HB 10-11 and cont EPO and Fe as noted-- given ongoin infection not a candidate for IV F but will check Fe stores nonetheless 4. Mineral Bone Disease 5. WT loss: encourage eating and suppl Recommendations: -cont HD 3x/wk using restraints and sedative meds as needed and rec by marco ( his is Hcpxy ) - routine dialysis labs ordered weekly *( can draw on HD) - has pedal edema - incr fkudi removal at HD epo q wk dependig on Hb - abx per primary team will follow w team Patient educated on: diagnosis and medical condition Informed Consent: understands, does not understand and further education needed Reason for continued inpatient stay Substantial Risk for: inability to function, stable for discharge and rapid decompensation Time Spent With Patient Time: Total time managing care of this patient today ____ minutes.
[2024-11-02 08:00] VITALS: BP 110/54; PULSE 66; RESP 18; TEMP 36.1; O2SAT 96
--- NOTE | 2024-11-02 08:54 | P.PNNP_ITS ---
Subjective Subjective Date of Service: 11/01/24 Interval history: late entry note for patient seen on 10/31/24 Physical Exam 2 Vital Signs: Vital Signs: Last Vital Signs Temp 96.9 F 11/02/24 08:00 Pulse 66 11/02/24 08:00 Resp 18 11/02/24 08:00 BP 110/54 L 11/02/24 08:00 Pulse Ox 96 11/02/24 08:00 O2 Del Method Room Air 11/02/24 08:00 Const: General: cooperative HEENT: Head: Yes normal to inspection Face and sinus: Yes normal facial exam Mouth: Normal oral and palatal mucosa present Teeth and gingiva: d entition normal Eyes: General: appearance normal, both eyes and all related structures P upils: Equal, round and reactive pupils present Resp: Effort & Inspection: normal respiratory effort Cardio: Rate: regular rate Rhythm: regular rhythm GI: Palpation (GI): Soft to palpation and nontender : General: Yes no CVA tenderness Back/Spine/Pelvis: Back: no CVA tenderness Skin: General skin exam: no rashes or lesions noted Neuro: General: moves all extremities Cranial nerves: Yes Equal, round and reactive pupils present Extrem: Other: right toe red DIP pulses intact Psych: Appearance: grossly normal Objective Data Labs 11/01/24 12:54 10/30/24 08:28 Labs: Laboratory Results - last 24 hr 11/01/24 11/01/24 11/01/24 12:54 12:54 12:54 WBC Cancelled 2.8 L RBC Cancelled 2.16 L Hgb Cancelled Hct MCV MCH MCHC RDW Plt Count MPV Immature Gran % (Auto) Neut % (Auto) Lymph % (Auto) [place] % (Auto) Eos % (Auto) Baso % (Auto) Lymph # (Auto) [place] # (Auto) Eos # (Auto) Baso # (Auto) Abs Immat Gran (auto) Absolute Neuts (auto) Absolute Nucleated RBC Nucleated RBC % (auto) Iron TIBC % Saturation Unsat Iron Binding Random Vancomycin 11/01/24 11/01/24 11/01/24 12:54 12:54 12:54 WBC RBC Hgb 7.3 L Hct Cancelled 21.0 L* MCV Cancelled 97.2 MCH Cancelled MCHC RDW Plt Count MPV Immature Gran % (Auto) Neut % (Auto) Lymph % (Auto) [place] % (Auto) Eos % (Auto) Baso % (Auto) Lymph # (Auto) [place] # (Auto) Eos # (Auto) Baso # (Auto) Abs Immat Gran (auto) Absolute Neuts (auto) Absolute Nucleated RBC Nucleated RBC % (auto) Iron TIBC % Saturation Unsat Iron Binding Random Vancomycin 11/01/24 11/01/24 11/01/24 12:54 12:54 12:54 WBC RBC Hgb Hct MCV MCH 33.8 H MCHC Cancelled 34.8 RDW Cancelled 13.6 Plt Count Cancelled MPV Immature Gran % (Auto) Neut % (Auto) Lymph % (Auto) [place] % (Auto) Eos % (Auto) Baso % (Auto) Lymph # (Auto) [place] # (Auto) Eos # (Auto) Baso # (Auto) Abs Immat Gran (auto) Absolute Neuts (auto) Absolute Nucleated RBC Nucleated RBC % (auto) Iron TIBC % Saturation Unsat Iron Binding Random Vancomycin 11/01/24 11/01/24 11/01/24 12:54 12:54 12:54 WBC RBC Hgb Hct MCV MCH MCHC RDW Plt Count 80 L MPV Cancelled 11.0 Immature Gran % (Auto) 0.4 Neut % (Auto) 66.3 Lymph % (Auto) 15.4 L [place] % (Auto) 14.3 H Eos % (Auto) 2.9 Baso % (Auto) 0.7 Lymph # (Auto) 0.4 L [place] # (Auto) 0.4 Eos # (Auto) 0.1 Baso # (Auto) 0.0 Abs Immat Gran (auto) 0.01 Absolute Neuts (auto) 1.9 L Absolute Nucleated RBC Cancelled 0.000 Nucleated RBC % (auto) Cancelled Iron TIBC % Saturation Unsat Iron Binding Random Vancomycin 11/01/24 12:54 WBC RBC Hgb Hct MCV MCH MCHC RDW Plt Count MPV Immature Gran % (Auto) Neut % (Auto) Lymph % (Auto) [place] % (Auto) Eos % (Auto) Baso % (Auto) Lymph # (Auto) [place] # (Auto) Eos # (Auto) Baso # (Auto) Abs Immat Gran (auto) Absolute Neuts (auto) Absolute Nucleated RBC Nucleated RBC % (auto) 0.0 Iron 70 TIBC 182 L % Saturation 38 Unsat Iron Binding 112 Random Vancomycin 15.6 Microbiology Microbiology Results: Microbiology 09/20/24 13:33 Blood - Venous Blood Culture - Final No growth after 5 days. 09/20/24 13:33 Blood - Venous Blood Culture - Final No growth after 5 days. Procedures Date of Service Date of Service: 11/02/24 Assessment & Plan Assessment and plan (1) ESRD (end stage renal disease): Status: Acute Plan Marco Holcomb is a 69 year old male with past medical history of ESRD on HD, bipolar disorder, Afib on Eliquis, s/p TAVR, hypertension, hyperlipidemia who presented [place] [facility] [place] behavior over the past few weeks. Seen by Psych for decompensated bipolar illness in the inpt psych unit. Nephrology consulted for ESRD. 1. ESRD Dialyzes MWF at [facility] via LUE AVF 2. Hypertension / Volume Chronically pt is taking metoprolol 25 mg daily and torsemide 100 mg non-HD days 3. Nephrogenic Anemia goal is HB 10-11 and cont EPO and Fe as noted-- given ongoin infection not a candidate for IV F but will check Fe stores nonetheless 4. Mineral Bone Disease 5. WT loss: encourage eating and suppl Recommendations: -cont HD 3x/wk using restraints and sedative meds as needed and rec by marco ( his is Hcpxy ) - routine dialysis labs ordered weekly *( can draw on HD) - has pedal edema - incr fkudi removal at HD epo q wk dependig on Hb - abx per primary team will follow w team Time Spent With Patient Time: Total time managing care of this patient today ____ minutes. Progress Note: Quality Stroke Does the patient have a stroke diagnosis?: No
[2024-11-02] MEDS: THIOTHIXENE 5 MG 1 EACH PO ×3 (11:46→21:23)
[2024-11-02 20:00] VITALS: BP 154/71; PULSE 97; TEMP 35.5; O2SAT 97
[2024-11-03 08:00] VITALS: BP 146/67; PULSE 83; RESP 18; TEMP 35.7; O2SAT 92
[2024-11-03] MEDS: THIOTHIXENE 5 MG 1 EACH PO ×3 (12:40→21:05)
[2024-11-03 20:00] VITALS: BP 155/72; PULSE 91; RESP 16; TEMP 35.6; O2SAT 96
--- NOTE | 2024-11-03 23:36 | P.PNPSI_ITS ---
Subjective Subjective Date of Service: 11/03/24 Reason For Visit: Unspecified Bipolar D/O Depression Anxiety, ECT Subjective Notes: Other (CV by HCP) Healthcare Proxy: Yes Guardianship: No Medical Problems Affecting Mental Status: Yes Interim History: Medical record and nursing notes reviewed; case discussed during rounds with team/nursing staff, and met with patient for supportive therapy/psychoeducation, as well as medication management. As usual, he is elected to medication he needs to take, very guarded, passive aggressive during assessment thank you for checking in with me and thank you . Then no further interaction. Per nursing, patient properly will refill labs work but we can do it tomorrow as he has dialysis in the morning. Not allow to have wound care assessment or take it care. He visible at times in the kitchen, observed by lateral tremors which could be normal baseline. Very guarded, not engaged in the assessment. Medication Compliance: Intermittent Side effects from medications: No Attending Groups: No Review of Systems Acute medical concerns: No Medical Review of Systems: unchanged Review of Systems Review of Systems ESRD Yes Unobtainable due to mental status Mental Status Exam Mental Status Exam Narrative: Pt is alert and oriented; behavior is calm, a little brighter and more willing to engage on approach; still resistant to care; calm; patient is not in distress; dressed in hospital pants, T-shirt, scruffy, with marginal hygiene; mood is described as ok and affect constricted though a little brighter; eye contact avoidant at times; Speech is normal rate, volume and prosody and not pressured; psychomotor retardation present but maybe a little less; thought process is goal directed but can be circular; Thought content is on not wanting treatment, discharge; no expressed paranoid delusions; denies any SI/HI. Denies AVH; does not appear to be internally preoccupied. Patients insight and judgment impaired, but maybe improving. Diagnostics Vital Signs (24Hr): Vital Signs - 24 hr 11/03/24 08:00 11/03/24 20:00 Temperature 96.2 F L 96.1 F L Pulse Rate 83 91 Respiratory Rate 18 16 Blood Pressure 146/67 H 155/72 H Pulse Oximetry 92 96 Oxygen Delivery Method Room Air Room Air Labs 11/01/24 12:54 10/30/24 08:28 Medications Medications Current Medications Acetaminophen (Acetaminophen 325 Mg Tablet) 650 mg PO Q6H PRN PRN Reason: Headache/Pain, Scale 1-10 Al Hydroxide/Mg Hydroxide (Magnesium Hydrox/Alum Hydrox 30 Ml Oral.Susp) 30 ml PO Q6H PRN PRN Reason: Heartburn/Nausea Apixaban (Apixaban 2.5 Mg Tablet) 2.5 mg PO BID [facility] Last Admin: 11/03/24 22:06 Dose: Not Given Aripiprazole (Aripiprazole 20 Mg Tablet) 20 mg PO DAILY [facility] Last Admin: 11/03/24 08:46 Dose: 20 mg Aripiprazole (Aripiprazole 5 Mg Tablet) 5 mg PO DAILY [facility] Last Admin: 11/03/24 08:46 Dose: 5 mg Benztropine Mesylate (Benztropine Mesylate 1 Mg Tablet) 1 mg PO BEDTIME PRN PRN Reason: EPS Benztropine Mesylate (Benztropine Mesylate 1 Mg Tablet) 2 mg PO DAILY [facility] Last Admin: 11/03/24 08:48 Dose: Not Given Bisacodyl (Bisacodyl 5 Mg Tablet.Dr) 5 mg PO BEDTIME PRN PRN Reason: Constipation Last Admin: 09/19/24 09:54 Dose: 5 mg Divalproex Sodium (Divalproex Sodium Er 500 Mg Tab.Er.24h) 1,000 mg PO BEDTIME [facility] Last Admin: 11/03/24 22:07 Dose: 1,000 mg Haloperidol (Haloperidol 5 Mg Tablet) 5 mg PO TID [facility] Last Admin: 11/03/24 22:07 Dose: 5 mg Haloperidol Lactate (Haloperidol Lactate 5 Mg/Ml Vial) 5 mg IM TID PRN PRN Reason: if refuse Thiothexine orHaldol Last Admin: 10/26/24 10:30 Dose: 5 mg Vancomycin HCl 500 mg/ Sodium (Chloride) 110 mls @ 110 mls/hr IV ONCE ONE Stop: 10/07/24 16:59 Magnesium Hydroxide (Milk Of Magnesia 30 Ml Oral.Susp) 30 ml PO DAILY PRN PRN Reason: Constipation Metoprolol Tartrate (Metoprolol Tartrate 25 Mg Tablet) 25 mg PO DAILY [facility]; Protocol Last Admin: 11/03/24 08:48 Dose: Not Given Multivitamins/Vitamin C (Multivitamin Tablet) 1 tab PO DAILY [facility] Last Admin: 11/03/24 08:48 Dose: Not Given Nicotine (Nicotine 21 Mg Patch.Td24) 21 mg TRANSDERMA DAILY PRN PRN Reason: smoking cessation Nicotine Polacrilex (Nicotine Polacrilex 2 Mg Gum) 4 mg BUCCAL Q2H PRN PRN Reason: Nicotine Cravings Patient Own Medication Thiothixene 5mg Tab 1 each PO TID@1200,1600,2100 [facility] Last Admin: 11/03/24 21:05 Dose: 1 each Olanzapine (Olanzapine 10 Mg Vial) 10 mg IM DAILY PRN PRN Reason: if refuses PO Abilify 20mg Last Admin: 10/11/24 13:48 Dose: 10 mg Olanzapine (Olanzapine 10 Mg Vial) 5 mg IM DAILY PRN PRN Reason: give if refuses Depakote Last Admin: 09/27/24 22:50 Dose: 5 mg Pharmacy Consult (Consult Rx Vancomycin Dosing) 1 each MISCELLANE DAILY PRN PRN Reason: Consult order Torsemide (Torsemide 20 Mg Tablet) 100 mg PO TuThSa@0900 [facility]; Protocol Last Admin: 11/02/24 10:39 Dose: Not Given Trazodone HCl (Trazodone Hcl 50 Mg Tablet) 50 mg PO BEDTIME MRX1 PRN PRN Reason: Insomnia Allergies Allergies Allergy/AdvReac Type Severity Reaction Status Date / Time No Known Allergies Allergy Verified 07/24/23 11:18 Assessment & Plan Assessment & Plan (1) ESRD (end stage renal disease): Status: Acute Code(s): N18.6 - End stage renal disease Plan Marco Holcomb is a 69 year old male with past medical history of ESRD on HD, bipolar disorder, Afib on Eliquis, s/p TAVR, hypertension, hyperlipidemia who presented to [facility] with erratic behavior over the past few weeks. Seen by Psych for decompensated bipolar illness in the inpt psych unit. Nephrology consulted for ESRD. 1. ESRD Dialyzes MWF at [facility] via LUE AVF 2. Hypertension / Volume Chronically pt is taking metoprolol 25 mg daily and torsemide 100 mg non-HD days 3. Nephrogenic Anemia goal is HB 10-11 and cont EPO and Fe as noted-- given ongoin infection not a candidate for IV F but will check Fe stores nonetheless 4. Mineral Bone Disease 5. WT loss: encourage eating and suppl Recommendations: -cont HD 3x/wk using restraints and sedative meds as needed and rec by marco ( his is Hcpxy ) - routine dialysis labs ordered weekly *( can draw on HD) - has pedal edema - incr fkudi removal at HD epo q wk dependig on Hb - abx per primary team will follow w team 11/03/24: As usual, he is elected to medication he needs to take, very guarded, passive aggressive during assessment thank you for checking in with me and thank you . Then no further interaction. Per nursing, patient properly will refill labs work but we can do it tomorrow as he has dialysis in the morning. Not allow to have wound care assessment or take it care. He visible at times in the kitchen, observed by lateral tremors which could be normal baseline. Very guarded, not engaged in the assessment. Patient educated on: other (not able to educate on medication. Patient is guarded ) Informed Consent: further education needed Reason for continued inpatient stay Substantial Risk for: med/psych decompensation Time Spent With Patient Time: Total time managing care of this patient today ____ minutes.
[2024-11-04 08:00] VITALS: BP 145/71; PULSE 74; RESP 18; TEMP 36.2; O2SAT 99
--- NOTE | 2024-11-04 08:11 | P.PNPSI_ITS ---
Subjective Subjective Date of Service: 11/02/24 Reason For Visit: Unspecified Bipolar D/O Depression Anxiety, ECT Subjective Notes: Conditional Voluntary Healthcare Proxy: Yes Guardianship: Yes Medical Problems Affecting Mental Status: Yes (dialysis renal failure) Interim History: 69 yo WM who refused to meet with provider pacing along martell- despite that attempted to ask patient questions- no answer Nursing reports that he interacts selectively- takes only meds /guardian requires- has dialysis scheduled likely for Monday- Medication Compliance: Intermittent Side effects from medications: No Attending Groups: No Review of Systems Acute medical concerns: Yes ongoing renal failure Medical Review of Systems: unchanged Mental Status Exam Mental Status Exam Narrative: Pacing martell barely looking at provider though clearly hears provider seems irritable but in control - Diagnostics Vital Signs (24Hr): Vital Signs - 24 hr 11/03/24 20:00 Temperature 96.1 F L Pulse Rate 91 Respiratory Rate 16 Blood Pressure 155/72 H Pulse Oximetry 96 Oxygen Delivery Method Room Air Labs 11/01/24 12:54 10/30/24 08:28 Medications Medications Current Medications Acetaminophen (Acetaminophen 325 Mg Tablet) 650 mg PO Q6H PRN PRN Reason: Headache/Pain, Scale 1-10 Al Hydroxide/Mg Hydroxide (Magnesium Hydrox/Alum Hydrox 30 Ml Oral.Susp) 30 ml PO Q6H PRN PRN Reason: Heartburn/Nausea Apixaban (Apixaban 2.5 Mg Tablet) 2.5 mg PO BID [facility] Last Admin: 11/03/24 22:06 Dose: Not Given Aripiprazole (Aripiprazole 20 Mg Tablet) 20 mg PO DAILY [facility] Last Admin: 11/03/24 08:46 Dose: 20 mg Aripiprazole (Aripiprazole 5 Mg Tablet) 5 mg PO DAILY [facility] Last Admin: 11/03/24 08:46 Dose: 5 mg Benztropine Mesylate (Benztropine Mesylate 1 Mg Tablet) 1 mg PO BEDTIME PRN PRN Reason: EPS Benztropine Mesylate (Benztropine Mesylate 1 Mg Tablet) 2 mg PO DAILY [facility] Last Admin: 11/03/24 08:48 Dose: Not Given Bisacodyl (Bisacodyl 5 Mg Tablet.Dr) 5 mg PO BEDTIME PRN PRN Reason: Constipation Last Admin: 09/19/24 09:54 Dose: 5 mg Divalproex Sodium (Divalproex Sodium Er 500 Mg Tab.Er.24h) 1,000 mg PO BEDTIME [facility] Last Admin: 11/03/24 22:07 Dose: 1,000 mg Haloperidol (Haloperidol 5 Mg Tablet) 5 mg PO TID [facility] Last Admin: 11/03/24 22:07 Dose: 5 mg Haloperidol Lactate (Haloperidol Lactate 5 Mg/Ml Vial) 5 mg IM TID PRN PRN Reason: if refuse Thiothexine orHaldol Last Admin: 10/26/24 10:30 Dose: 5 mg Vancomycin HCl 500 mg/ Sodium (Chloride) 110 mls @ 110 mls/hr IV ONCE ONE Stop: 10/07/24 16:59 Magnesium Hydroxide (Milk Of Magnesia 30 Ml Oral.Susp) 30 ml PO DAILY PRN PRN Reason: Constipation Metoprolol Tartrate (Metoprolol Tartrate 25 Mg Tablet) 25 mg PO DAILY [facility]; Protocol Last Admin: 11/03/24 08:48 Dose: Not Given Multivitamins/Vitamin C (Multivitamin Tablet) 1 tab PO DAILY [facility] Last Admin: 11/03/24 08:48 Dose: Not Given Nicotine (Nicotine 21 Mg Patch.Td24) 21 mg TRANSDERMA DAILY PRN PRN Reason: smoking cessation Nicotine Polacrilex (Nicotine Polacrilex 2 Mg Gum) 4 mg BUCCAL Q2H PRN PRN Reason: Nicotine Cravings Patient Own Medication Thiothixene 5mg Tab 1 each PO TID@1200,1600,2100 [facility] Last Admin: 11/03/24 21:05 Dose: 1 each Olanzapine (Olanzapine 10 Mg Vial) 10 mg IM DAILY PRN PRN Reason: if refuses PO Abilify 20mg Last Admin: 10/11/24 13:48 Dose: 10 mg Olanzapine (Olanzapine 10 Mg Vial) 5 mg IM DAILY PRN PRN Reason: give if refuses Depakote Last Admin: 09/27/24 22:50 Dose: 5 mg Pharmacy Consult (Consult Rx Vancomycin Dosing) 1 each MISCELLANE DAILY PRN PRN Reason: Consult order Torsemide (Torsemide 20 Mg Tablet) 100 mg PO TuThSa@0900 [facility]; Protocol Last Admin: 11/02/24 10:39 Dose: Not Given Trazodone HCl (Trazodone Hcl 50 Mg Tablet) 50 mg PO BEDTIME MRX1 PRN PRN Reason: Insomnia Allergies Allergies Allergy/AdvReac Type Severity Reaction Status Date / Time No Known Allergies Allergy Verified 07/24/23 11:18 Assessment & Plan Assessment & Plan (1) ESRD (end stage renal disease): Status: Acute Code(s): N18.6 - End stage renal disease Plan Marco Holcomb is a 69 year old male with past medical history of ESRD on HD, bipolar disorder, Afib on Eliquis, s/p TAVR, hypertension, hyperlipidemia who [place] [facility] [place]atic behavior over the past few weeks. Seen by Psych for decompensated bipolar illness in the inpt psych unit. Nephrology consulted for ESRD. 1. ESRD Dialyzes MWF at [facility] via LUE AVF 2. Hypertension / Volume Chronically pt is taking metoprolol 25 mg daily and torsemide 100 mg non-HD days 3. Nephrogenic Anemia goal is HB 10-11 and cont EPO and Fe as noted-- given ongoin infection not a candidate for IV F but will check Fe stores nonetheless 4. Mineral Bone Disease 5. WT loss: encourage eating and suppl Recommendations: -cont HD 3x/wk using restraints and sedative meds as needed and rec by marco ( his is Hcpxy ) - routine dialysis labs ordered weekly *( can draw on HD) - has pedal edema - incr fkudi removal at HD epo q wk dependig on Hb - abx per primary team will follow w team 11/02/24- refused to be seen, pacing, keeping to himself- CTP 11/03/24: As usual, he is elected to medication he needs to take, very guarded, passive aggressive during assessment thank you for checking in with me and thank you . Then no further interaction. Per nursing, patient properly will refill labs work but we can do it tomorrow as he has dialysis in the morning. Not allow to have wound care assessment or take it care. He visible at times in the kitchen, observed by lateral tremors which could be normal baseline. Very guarded, not engaged in the assessment. Reason for continued inpatient stay Substantial Risk for: rapid decompensation and med/psych decompensation Time Spent With Patient Time: Total time managing care of this patient today ____ minutes.
--- NOTE | 2024-11-04 09:29 | HE.PHANOTE ---
VANCO DOSE ADJUSTMENT BASED ON PRE DIALYSIS LEVEL 50MG GIVE WITH NEXT LEVEL 11/06 @ 0700
--- NOTE | 2024-11-04 09:56 | HO.PSYCHPN ---
Subjective Subjective Date of Service: 11/04/24 Reason For Visit: Unspecified Bipolar D/O Depression Anxiety, ECT Interim History: Met with patient; discussed with team; family meeting Discussed patient's care with and patient agrees to continue with dialysis, antibiotics for foot, and antipsychotic medications including Haldol if he were to return home; agrees to start taking Eliquis and metoprolol while on the unit; does not want Cogentin and says he can tolerate the shakes. Patient amenable to demonstrating adherence with care in order to prepare for discharge. Discussed case with slitter service and setter who agrees that patient should remain on Eliquis and metoprolol given history of AFib; tamsulosin more optional since they can always take extra fluid off during hemodialysis Mental Status Exam Mental Status Exam Narrative: . Pt is alert and oriented; behavior is calm, brighter and cooperative; much more amenable to care, though still refuses certain things; calm; patient is not in distress; dressed in hospital pants, T-shirt, scruffy, with adequate hygiene; mood is described as ok and affect constricted though a little brighter; eye contact adequate; Speech is normal rate, volume and prosody and not pressured; no psychomotor retardation; thought process is goal directed; Thought content is on wanting discharge; no expressed paranoid delusions; denies any SI/HI. Denies AVH; does not appear to be internally preoccupied. Patients insight and judgment impaired, but has improved some. Diagnostics Vital Signs (24Hr): Vital Signs - 24 hr 11/03/24 20:00 11/04/24 08:00 Temperature 96.1 F L 97.2 F Pulse Rate 91 74 Respiratory Rate 16 18 Blood Pressure 155/72 H 145/71 H Pulse Oximetry 96 99 Oxygen Delivery Method Room Air Room Air Labs 11/06/24 09:55 11/06/24 09:55 Labs: Laboratory Results - last 48 hr 11/04/24 08:45 Hold Purple Top SEE NOTE Random Vancomycin 18.0 Medications Medications Current Medications Acetaminophen (Acetaminophen 325 Mg Tablet) 650 mg PO Q6H PRN PRN Reason: Headache/Pain, Scale 1-10 Al Hydroxide/Mg Hydroxide (Magnesium Hydrox/Alum Hydrox 30 Ml Oral.Susp) 30 ml PO Q6H PRN PRN Reason: Heartburn/Nausea Apixaban (Apixaban 2.5 Mg Tablet) 2.5 mg PO BID [facility] Last Admin: 11/03/24 22:06 Dose: Not Given Aripiprazole (Aripiprazole 20 Mg Tablet) 20 mg PO DAILY [facility] Last Admin: 11/04/24 08:32 Dose: 20 mg Aripiprazole (Aripiprazole 5 Mg Tablet) 5 mg PO DAILY [facility] Last Admin: 11/04/24 08:32 Dose: 5 mg Benztropine Mesylate (Benztropine Mesylate 1 Mg Tablet) 1 mg PO BEDTIME PRN PRN Reason: EPS Benztropine Mesylate (Benztropine Mesylate 1 Mg Tablet) 2 mg PO DAILY [facility] Last Admin: 11/03/24 08:48 Dose: Not Given Bisacodyl (Bisacodyl 5 Mg Tablet.Dr) 5 mg PO BEDTIME PRN PRN Reason: Constipation Last Admin: 09/19/24 09:54 Dose: 5 mg Divalproex Sodium (Divalproex Sodium Er 500 Mg Tab.Er.24h) 1,000 mg PO BEDTIME [facility] Last Admin: 11/03/24 22:07 Dose: 1,000 mg Haloperidol (Haloperidol 5 Mg Tablet) 5 mg PO TID [facility] Last Admin: 11/03/24 22:07 Dose: 5 mg Haloperidol Lactate (Haloperidol Lactate 5 Mg/Ml Vial) 5 mg IM TID PRN PRN Reason: if refuse Thiothexine orHaldol Last Admin: 10/26/24 10:30 Dose: 5 mg Vancomycin HCl 500 mg/ Sodium (Chloride) 110 mls @ 110 mls/hr IV ONCE ONE Stop: 10/07/24 16:59 Vancomycin HCl 500 mg/ Sodium (Chloride) 110 mls @ 110 mls/hr IV ONCE ONE Stop: 11/04/24 10:59 Magnesium Hydroxide (Milk Of Magnesia 30 Ml Oral.Susp) 30 ml PO DAILY PRN PRN Reason: Constipation Metoprolol Tartrate (Metoprolol Tartrate 25 Mg Tablet) 25 mg PO DAILY [facility]; Protocol Last Admin: 11/03/24 08:48 Dose: Not Given Multivitamins/Vitamin C (Multivitamin Tablet) 1 tab PO DAILY [facility] Last Admin: 11/03/24 08:48 Dose: Not Given Nicotine (Nicotine 21 Mg Patch.Td24) 21 mg TRANSDERMA DAILY PRN PRN Reason: smoking cessation Nicotine Polacrilex (Nicotine Polacrilex 2 Mg Gum) 4 mg BUCCAL Q2H PRN PRN Reason: Nicotine Cravings Patient Own Medication Thiothixene 5mg Tab 1 each PO TID@1200,1600,2100 [facility] Last Admin: 11/03/24 21:05 Dose: 1 each Olanzapine (Olanzapine 10 Mg Vial) 10 mg IM DAILY PRN PRN Reason: if refuses PO Abilify 20mg Last Admin: 10/11/24 13:48 Dose: 10 mg Olanzapine (Olanzapine 10 Mg Vial) 5 mg IM DAILY PRN PRN Reason: give if refuses Depakote Last Admin: 09/27/24 22:50 Dose: 5 mg Pharmacy Consult (Consult Rx Vancomycin Dosing) 1 each MISCELLANE DAILY PRN PRN Reason: Consult order Torsemide (Torsemide 20 Mg Tablet) 100 mg PO TuThSa@0900 [facility]; Protocol Last Admin: 11/02/24 10:39 Dose: Not Given Trazodone HCl (Trazodone Hcl 50 Mg Tablet) 50 mg PO BEDTIME MRX1 PRN PRN Reason: Insomnia Allergies Allergies Allergy/AdvReac Type Severity Reaction Status Date / Time No Known Allergies Allergy Verified 07/24/23 11:18 Assessment & Plan Assessment & Plan (1) ESRD (end stage renal disease): Status: Acute Code(s): N18.6 - End stage renal disease Plan Marco Holcomb is a 69 year old male with past medical history of ESRD on HD, bipolar disorder, Afib on Eliquis, s/p TAVR, hypertension, hyperlipidemia who presented to [facility] with erratic behavior over the past few weeks. Seen by Psych for decompensated bipolar illness in the inpt psych unit. Nephrology consulted for ESRD. 1. ESRD Dialyzes MWF at [facility] via LUE AVF 2. Hypertension / Volume Chronically pt is taking metoprolol 25 mg daily and torsemide 100 mg non-HD days 3. Nephrogenic Anemia goal is HB 10-11 and cont EPO and Fe as noted-- given ongoin infection not a candidate for IV F but will check Fe stores nonetheless 4. Mineral Bone Disease 5. WT loss: encourage eating and suppl Recommendations: -cont HD 3x/wk using restraints and sedative meds as needed and rec by marco ( his is Hcpxy ) - routine dialysis labs ordered weekly *( can draw on HD) - has pedal edema - incr fkudi removal at HD epo q wk dependig on Hb - abx per primary team will follow w team 11/02/24- refused to be seen, pacing, keeping to himself- CTP 11/03/24: As usual, he is elected to medication he needs to take, very guarded, passive aggressive during assessment thank you for checking in with me and thank you . Then no further interaction. Per nursing, patient properly will refill labs work but we can do it tomorrow as he has dialysis in the morning. Not allow to have wound care assessment or take it care. He visible at times in the kitchen, observed by lateral tremors which could be normal baseline. Very guarded, not engaged in the assessment. 11/04 Discussed patient's care with and patient agrees to continue with dialysis, antibiotics for foot, and antipsychotic medications including Haldol if he were to return home; agrees to start taking Eliquis and metoprolol while on the unit; does not want Cogentin and says he can tolerate the shakes. Patient amenable to demonstrating adherence with care in order to prepare for discharge. Discussed case with slitter service and setter who agrees that patient should remain on Eliquis and metoprolol given history of AFib; tamsulosin more optional since they can always take extra fluid off during hemodialysis Patient educated on: diagnosis, medication risk/benefits and medical condition Informed Consent: understands, does not understand and further education needed Reason for continued inpatient stay Substantial Risk for: inability to function, stable for discharge, rapid decompensation and med/psych decompensation Time Spent With Patient Time: Total time managing care of this patient today ____ minutes.
[2024-11-04 13:00] VITALS: BP 107/61; PULSE 82; RESP 18; TEMP 35.4; O2SAT 97
[2024-11-04] MEDS: THIOTHIXENE 5 MG 1 EACH PO ×3 (13:43→21:20)
[2024-11-04 20:00] VITALS: BP 140/68; PULSE 86; RESP 18; TEMP 36.1; O2SAT 98
--- NOTE | 2024-11-04 22:21 | P.PNNP_ITS ---
Subjective Subjective Date of Service: 11/04/24 Interval history: Seenand examied, events noted Physical Exam 2 Vital Signs: Vital Signs: Last Vital Signs Temp 95.7 F L 11/04/24 13:00 Pulse 82 11/04/24 13:00 Resp 18 11/04/24 13:00 BP 107/61 11/04/24 13:00 Pulse Ox 97 11/04/24 13:00 O2 Del Method Room Air 11/04/24 13:00 Const: General: cooperative HEENT: Head: Yes normal to inspection Face and sinus: Yes normal facial exam Mouth: Normal oral and palatal mucosa present Teeth and gingiva: d entition normal Eyes: General: appearance normal, both eyes and all related structures P upils: Equal, round and reactive pupils present Resp: Effort & Inspection: normal respiratory effort Cardio: Rate: regular rate Rhythm: regular rhythm GI: Palpation (GI): Soft to palpation and nontender : General: Yes no CVA tenderness Back/Spine/Pelvis: Back: no CVA tenderness Skin: General skin exam: no rashes or lesions noted Neuro: General: moves all extremities Cranial nerves: Yes Equal, round and reactive pupils present Extrem: Other: right toe red DIP pulses intact Psych: Appearance: grossly normal Objective Data Labs 11/01/24 12:54 10/30/24 08:28 Labs: Laboratory Results - last 24 hr 11/01/24 11/04/24 12:54 08:45 Hold Purple Top SEE NOTE Erythropoietin 8.5 Random Vancomycin 18.0 Microbiology Microbiology Results: Microbiology 09/20/24 13:33 Blood - Venous Blood Culture - Final No growth after 5 days. 09/20/24 13:33 Blood - Venous Blood Culture - Final No growth after 5 days. Procedures Date of Service Date of Service: 11/04/24 Assessment & Plan Assessment and plan (1) ESRD (end stage renal disease): Status: Acute Plan Marco Holcomb is a 69 year old male with past medical history of ESRD on HD, bipolar disorder, Afib on Eliquis, s/p TAVR, hypertension, hyperlipidemia who presented to [facility] with erratic behavior over the past few weeks. Seen by Psych for decompensated bipolar illness in the inpt psych unit. Nephrology consulted for ESRD. 1. ESRD Dialyzes MWF at [facility] via LUE AVF 2. Hypertension / Volume Chronically pt is taking metoprolol 25 mg daily and torsemide 100 mg non-HD days 3. Nephrogenic Anemia goal is HB 10-11 and cont EPO and Fe as noted-- given ongoin infection not a candidate for IV F but will check Fe stores nonetheless 4. Mineral Bone Disease 5. WT loss: encourage eating and suppl Recommendations: -cont HD 3x/wk ( his is Hcpxy ) - routine dialysis labs ordered weekly *( can draw on HD) - has pedal edema - incr fkudi removal at HD epo q wk dependig on Hb - abx per primary team will follow w team Time Spent With Patient Time: Total time managing care of this patient today ____ minutes. Progress Note: Quality Stroke Does the patient have a stroke diagnosis?: No
[2024-11-05 11:32] VITALS: BP 115/55; PULSE 69
[2024-11-05] MEDS: THIOTHIXENE 5 MG 1 EACH PO ×3 (11:37→21:17)
[2024-11-05 20:00] VITALS: BP 108/66; PULSE 66; RESP 16; TEMP 36.1; O2SAT 95
[2024-11-06 08:00] VITALS: BP 111/52; PULSE 61; TEMP 36.1; O2SAT 96
--- NOTE | 2024-11-06 08:47 | HE.PHANOTE ---
Re: VANCO Post dialysis dose for 11/06 is 500 mg based on pre dialysis trough on 11/04. Next trough level to be drawn 11/08 @0700.
[2024-11-06 10:37] LABS: MANUAL DIFF FLAG NO
[2024-11-06 10:45] LABS: Hematocrit 21.4 % (42.0-52.0); Hemoglobin 7.2 g/dl (14.0-18.0); Imm Gran Abs Auto 0.01 X10*3/uL (0.00-0.03); Imm Gran Pct Auto 0.3 % (0.0-0.4); Lymphocytes Absolute Auto 0.4 X10*3/uL (1.2-4.9); Mean Corpuscular HGB Conc 33.6 g/dl (31.0-36.0); Mean Corpuscular Hemoglobin 34.0 pg (27.0-33.0); Mean Corpuscular Volume 100.9 fL (80.0-98.0); NRBC Abs Auto 0.000 X10*3/uL (0.0-0.012); NRBC Pct Auto 0.0 /100WBC (0.0-0.2); Platelet Count 93 X10*3/uL (160-400); Red Blood Count 2.12 X10*6/uL (4.60-5.80); White Blood Count 3.0 X10*3/uL (4.8-10.8)
[2024-11-06 10:56] LABS: Alanine Aminotransferase 9 U/L (0-40); Albumin Level 3.4 g/dL (3.5-5.0); Alkaline Phosphatase 60 U/L (39-117); Anion Gap 15 (12-20); Aspartate Amino Transferase 18 U/L (5-37); Blood Urea Nitrogen 36 mg/dL (9-16); Calcium 8.6 mg/dL (8.4-10.2); Carbon Dioxide 26 mmol/L (22-29); Chloride 100 mmol/L (96-108); Estimated Glomerular Filt Rate 11; Potassium 4.2 mmol/L (3.3-5.1); Sodium 137 mmol/L (135-145); Total Protein 5.6 g/dL (6.5-8.0)
--- NOTE | 2024-11-06 11:52 | PM.PNNEP ---
Subjective Subjective Date of Service: 11/06/24 Interval history: seen and examined on HD Physical Exam Vital Signs: Vital Signs: Last Vital Signs Temp 96.9 F 11/05/24 20:00 Pulse 66 11/05/24 20:00 Resp 16 11/05/24 20:00 BP 108/66 11/05/24 20:00 Pulse Ox 95 11/05/24 20:00 O2 Del Method Room Air 11/05/24 20:00 Const: General: no acute distress HEENT: Head: Yes normocephalic and Yes atraumatic Neck: Neck: Yes supple Resp: Auscultation: diminished lung sounds Cardio: Heart sounds: S1 normal heart sound present and S2 normal heart sound present GI: Palpation (GI): Soft to palpation and nontender Extrem: General: Yes pedal edema Objective Data Labs 11/06/24 09:55 11/06/24 09:55 Labs: Laboratory Results - last 24 hr 11/06/24 09:55 WBC 3.0 L RBC 2.12 L Hgb 7.2 L Hct 21.4 L MCV 100.9 H MCH 34.0 H MCHC 33.6 RDW 14.2 Plt Count 93 L MPV 10.8 Immature Gran % (Auto) 0.3 Neut % (Auto) 69.5 Lymph % (Auto) 12.8 L [place] % (Auto) 14.1 H Eos % (Auto) 3.0 Baso % (Auto) 0.3 Lymph # (Auto) 0.4 L [place] # (Auto) 0.4 Eos # (Auto) 0.1 Baso # (Auto) 0.0 Abs Immat Gran (auto) 0.01 Absolute Neuts (auto) 2.1 Absolute Nucleated RBC 0.000 Nucleated RBC % (auto) 0.0 Hold Purple Top SEE NOTE Sodium 137 Potassium 4.2 Chloride 100 Carbon Dioxide 26 Anion Gap 15 BUN 36 H Creatinine 5.12 H* Estim Creat Clear Calc TNP Estimated GFR 11 Random Glucose 119 H Calcium 8.6 Total Bilirubin 0.3 AST 18 ALT 9 Alkaline Phosphatase 60 Total Protein 5.6 L Albumin 3.4 L Random Vancomycin 13.6 L Microbiology Microbiology Results: Microbiology 09/20/24 13:33 Blood - Venous Blood Culture - Final No growth after 5 days. 09/20/24 13:33 Blood - Venous Blood Culture - Final No growth after 5 days. Procedures Date of Service Date of Service: 11/06/24 Assessment & Plan Assessment and plan (1) ESRD (end stage renal disease): Status: Acute (2) Anemia: Status: Acute Plan 69 year old male with past medical history of ESRD on HD, bipolar disorder, Afib on Eliquis, s/p TAVR, hypertension, hyperlipidemia who presented to [facility] with erratic behavior over the past few weeks. Seen by Psych for decompensated bipolar illness in the inpatient psych unit. Nephrology consulted for ESRD. 1. ESRD Dialyzes MWF at [facility] via LUE AVF 2. Hypertension / Volume Chronically pt is taking metoprolol 25 mg daily and torsemide 100 mg non-HD days 3. Nephrogenic Anemia Recommendations: -continue HD -- - renal diet - ERIKA - P binders Time Spent With Patient Time: Total time managing care of this patient today ____ minutes. Progress Note: Quality Stroke Does the patient have a stroke diagnosis?: No
--- NOTE | 2024-11-06 13:01 | PC.NURSE ---
At 12:50 pt was brought back to this unit from dialysis via wheelchair by t/w. Pt refused VS per protocol to be obtained upon arrival back to the unit. Pt refused medications as well. Stated I want to go eat first . Thiothixine not given as med is not available. Marco's Sujata is on her way to bring this medication (pt own medication from home).
[2024-11-06 14:53] VITALS: BP 170/100; PULSE 76
[2024-11-06] MEDS: THIOTHIXENE 5 MG 1 EACH PO ×2 (14:53→21:06)
--- NOTE | 2024-11-07 00:15 | P.PNPSI_ITS ---
Subjective Subjective Date of Service: 11/06/24 Reason For Visit: Unspecified Bipolar D/O Depression Anxiety, ECT Interim History: late entry note for pt seen 11/06 Discussed Haldol. Patient said he wished to could be lowered however engineering technical writer expressed that patient seems to have improved with it addition and so patient said he was okay with continuing with it Mental Status Exam Mental Status Exam Narrative: . Pt is alert and oriented; behavior is calm, brighter and cooperative; much more amenable to care, though still refuses certain things; calm; patient is not in distress; dressed in hospital pants, T-shirt, scruffy, with adequate hygiene; mood is described as ok and affect constricted though a little brighter; eye contact adequate; Speech is normal rate, volume and prosody and not pressured; no psychomotor retardation; thought process is goal directed; Thought content is on wanting discharge; no expressed paranoid delusions; denies any SI/HI. Denies AVH; does not appear to be internally preoccupied. Patients insight and judgment impaired, but has improved some. Diagnostics Vital Signs (24Hr): Vital Signs - 24 hr 11/06/24 08:00 11/06/24 14:53 Temperature 96.9 F Pulse Rate 61 76 Blood Pressure 111/52 L 170/100 H Pulse Oximetry 96 Oxygen Delivery Method Room Air Labs 11/06/24 09:55 11/06/24 09:55 Labs: Laboratory Results - last 48 hr 11/06/24 09:55 WBC 3.0 L RBC 2.12 L Hgb 7.2 L Hct 21.4 L MCV 100.9 H MCH 34.0 H MCHC 33.6 RDW 14.2 Plt Count 93 L MPV 10.8 Immature Gran % (Auto) 0.3 Neut % (Auto) 69.5 Lymph % (Auto) 12.8 L [place] % (Auto) 14.1 H Eos % (Auto) 3.0 Baso % (Auto) 0.3 Lymph # (Auto) 0.4 L [place] # (Auto) 0.4 Eos # (Auto) 0.1 Baso # (Auto) 0.0 Abs Immat Gran (auto) 0.01 Absolute Neuts (auto) 2.1 Absolute Nucleated RBC 0.000 Nucleated RBC % (auto) 0.0 Hold Purple Top SEE NOTE Sodium 137 Potassium 4.2 Chloride 100 Carbon Dioxide 26 Anion Gap 15 BUN 36 H Creatinine 5.12 H* Estim Creat Clear Calc TNP Estimated GFR 11 Random Glucose 119 H Calcium 8.6 Total Bilirubin 0.3 AST 18 ALT 9 Alkaline Phosphatase 60 Total Protein 5.6 L Albumin 3.4 L Random Vancomycin 13.6 L Medications Medications Current Medications Acetaminophen (Acetaminophen 325 Mg Tablet) 650 mg PO Q6H PRN PRN Reason: Headache/Pain, Scale 1-10 Al Hydroxide/Mg Hydroxide (Magnesium Hydrox/Alum Hydrox 30 Ml Oral.Susp) 30 ml PO Q6H PRN PRN Reason: Heartburn/Nausea Apixaban (Apixaban 2.5 Mg Tablet) 2.5 mg PO BID [facility] Last Admin: 11/06/24 21:03 Dose: 2.5 mg Aripiprazole (Aripiprazole 20 Mg Tablet) 20 mg PO DAILY [facility] Last Admin: 11/06/24 08:49 Dose: 20 mg Aripiprazole (Aripiprazole 5 Mg Tablet) 5 mg PO DAILY [facility] Last Admin: 11/06/24 08:49 Dose: 5 mg Benztropine Mesylate (Benztropine Mesylate 1 Mg Tablet) 1 mg PO BEDTIME PRN PRN Reason: EPS Benztropine Mesylate (Benztropine Mesylate 1 Mg Tablet) 2 mg PO DAILY [facility] Last Admin: 11/06/24 10:17 Dose: Not Given Bisacodyl (Bisacodyl 5 Mg Tablet.Dr) 5 mg PO BEDTIME PRN PRN Reason: Constipation Last Admin: 09/19/24 09:54 Dose: 5 mg Divalproex Sodium (Divalproex Sodium Er 500 Mg Tab.Er.24h) 1,000 mg PO BEDTIME [facility] Last Admin: 11/06/24 21:55 Dose: 1,000 mg Haloperidol (Haloperidol 5 Mg Tablet) 10 mg PO BID [facility] Last Admin: 11/06/24 21:04 Dose: 10 mg Haloperidol Lactate (Haloperidol Lactate 5 Mg/Ml Vial) 5 mg IM TID PRN PRN Reason: if refuse Thiothexine orHaldol Last Admin: 10/26/24 10:30 Dose: 5 mg Magnesium Hydroxide (Milk Of Magnesia 30 Ml Oral.Susp) 30 ml PO DAILY PRN PRN Reason: Constipation Metoprolol Tartrate (Metoprolol Tartrate 25 Mg Tablet) 25 mg PO DAILY [facility]; Protocol Last Admin: 11/06/24 14:53 Dose: 25 mg Multivitamins/Vitamin C (Multivitamin Tablet) 1 tab PO DAILY [facility] Last Admin: 11/06/24 14:53 Dose: 1 tab Nicotine (Nicotine 21 Mg Patch.Td24) 21 mg TRANSDERMA DAILY PRN PRN Reason: smoking cessation Nicotine Polacrilex (Nicotine Polacrilex 2 Mg Gum) 4 mg BUCCAL Q2H PRN PRN Reason: Nicotine Cravings Patient Own Medication Thiothixene 5mg Tab 1 each PO TID@1200,1600,2100 [facility] Last Admin: 11/06/24 21:06 Dose: 1 each Olanzapine (Olanzapine 10 Mg Vial) 10 mg IM DAILY PRN PRN Reason: if refuses PO Abilify 20mg Last Admin: 10/11/24 13:48 Dose: 10 mg Olanzapine (Olanzapine 10 Mg Vial) 5 mg IM DAILY PRN PRN Reason: give if refuses Depakote Last Admin: 09/27/24 22:50 Dose: 5 mg Pharmacy Consult (Consult Rx Vancomycin Dosing) 1 each MISCELLANE DAILY PRN PRN Reason: Consult order Torsemide (Torsemide 20 Mg Tablet) 100 mg PO TuThSa@0900 [facility]; Protocol On Hold: 11/05/24 13:34 Last Admin: 11/05/24 11:35 Dose: Not Given Trazodone HCl (Trazodone Hcl 50 Mg Tablet) 50 mg PO BEDTIME MRX1 PRN PRN Reason: Insomnia Allergies Allergies Allergy/AdvReac Type Severity Reaction Status Date / Time No Known Allergies Allergy Verified 07/24/23 11:18 Assessment & Plan Assessment & Plan (1) ESRD (end stage renal disease): Status: Acute Code(s): N18.6 - End stage renal disease Plan Marco Holcomb is a 69 year old male with past medical history of ESRD on HD, bipolar disorder, Afib on Eliquis, s/p TAVR, hypertension, hyperlipidemia who presented to [facility] with erratic behavior over the past few weeks. Seen by Psych for decompensated bipolar illness in the inpt psych unit. Nephrology consulted for ESRD. 1. ESRD Dialyzes MWF at [facility] via LUE AVF 2. Hypertension / Volume Chronically pt is taking metoprolol 25 mg daily and torsemide 100 mg non-HD days 3. Nephrogenic Anemia goal is HB 10-11 and cont EPO and Fe as noted-- given ongoin infection not a candidate for IV F but will check Fe stores nonetheless 4. Mineral Bone Disease 5. WT loss: encourage eating and suppl Recommendations: -cont HD 3x/wk using restraints and sedative meds as needed and rec by brandeemanjinder ( his is Hcpxy ) - routine dialysis labs ordered weekly *( can draw on HD) - has pedal edema - incr fkudi removal at HD epo q wk dependig on Hb - abx per primary team will follow w team 11/02/24- refused to be seen, pacing, keeping to himself- CTP 11/03/24: As usual, he is elected to medication he needs to take, very guarded, passive aggressive during assessment thank you for checking in with me and thank you . Then no further interaction. Per nursing, patient properly will refill labs work but we can do it tomorrow as he has dialysis in the morning. Not allow to have wound care assessment or take it care. He visible at times in the kitchen, observed by lateral tremors which could be normal baseline. Very guarded, not engaged in the assessment. 11/04 Discussed patient's care with and patient agrees to continue with dialysis, antibiotics for foot, and antipsychotic medications including Haldol if he were to return home; agrees to start taking Eliquis and metoprolol while on the unit; does not want Cogentin and says he can tolerate the shakes. Patient amenable to demonstrating adherence with care in order to prepare for discharge. Discussed case with program manager environmental planning who agrees that patient should remain on Eliquis and metoprolol given history of AFib; tamsulosin more optional since they can always take extra fluid off during hemodialysis 11/05 taking Eliquis and metoprolol 11/06 Discussed Haldol. Patient said he wished to could be lowered however engineering technical writer expressed that patient seems to have improved with it addition and so patient said he was okay with continuing with it Patient educated on: diagnosis and medication risk/benefits Informed Consent: understands and further education needed Reason for continued inpatient stay Substantial Risk for: inability to function, stable for discharge and rapid decompensation Time Spent With Patient Time: Total time managing care of this patient today ____ minutes.
--- NOTE | 2024-11-07 00:15 | P.PNPSI_ITS ---
Subjective Subjective Date of Service: 11/05/24 Reason For Visit: Unspecified Bipolar D/O Depression Anxiety, ECT Interim History: late entry note for pt seen 11/05 Patient pleasant, taking Eliquis, metoprolol Mental Status Exam Mental Status Exam Narrative: . Pt is alert and oriented; behavior is calm, brighter and cooperative; much more amenable to care, though still refuses certain things; calm; patient is not in distress; dressed in hospital pants, T-shirt, scruffy, with adequate hygiene; mood is described as ok and affect constricted though a little brighter; eye contact adequate; Speech is normal rate, volume and prosody and not pressured; no psychomotor retardation; thought process is goal directed; Thought content is on wanting discharge; no expressed paranoid delusions; denies any SI/HI. Denies AVH; does not appear to be internally preoccupied. Patients insight and judgment impaired, but has improved some. Diagnostics Vital Signs (24Hr): Vital Signs - 24 hr 11/06/24 08:00 11/06/24 14:53 Temperature 96.9 F Pulse Rate 61 76 Blood Pressure 111/52 L 170/100 H Pulse Oximetry 96 Oxygen Delivery Method Room Air Labs 11/06/24 09:55 11/06/24 09:55 Labs: Laboratory Results - last 48 hr 11/06/24 09:55 WBC 3.0 L RBC 2.12 L Hgb 7.2 L Hct 21.4 L MCV 100.9 H MCH 34.0 H MCHC 33.6 RDW 14.2 Plt Count 93 L MPV 10.8 Immature Gran % (Auto) 0.3 Neut % (Auto) 69.5 Lymph % (Auto) 12.8 L [place] % (Auto) 14.1 H Eos % (Auto) 3.0 Baso % (Auto) 0.3 Lymph # (Auto) 0.4 L [place] # (Auto) 0.4 Eos # (Auto) 0.1 Baso # (Auto) 0.0 Abs Immat Gran (auto) 0.01 Absolute Neuts (auto) 2.1 Absolute Nucleated RBC 0.000 Nucleated RBC % (auto) 0.0 Hold Purple Top SEE NOTE Sodium 137 Potassium 4.2 Chloride 100 Carbon Dioxide 26 Anion Gap 15 BUN 36 H Creatinine 5.12 H* Estim Creat Clear Calc TNP Estimated GFR 11 Random Glucose 119 H Calcium 8.6 Total Bilirubin 0.3 AST 18 ALT 9 Alkaline Phosphatase 60 Total Protein 5.6 L Albumin 3.4 L Random Vancomycin 13.6 L Medications Medications Current Medications Acetaminophen (Acetaminophen 325 Mg Tablet) 650 mg PO Q6H PRN PRN Reason: Headache/Pain, Scale 1-10 Al Hydroxide/Mg Hydroxide (Magnesium Hydrox/Alum Hydrox 30 Ml Oral.Susp) 30 ml PO Q6H PRN PRN Reason: Heartburn/Nausea Apixaban (Apixaban 2.5 Mg Tablet) 2.5 mg PO BID [facility] Last Admin: 11/06/24 21:03 Dose: 2.5 mg Aripiprazole (Aripiprazole 20 Mg Tablet) 20 mg PO DAILY [facility] Last Admin: 11/06/24 08:49 Dose: 20 mg Aripiprazole (Aripiprazole 5 Mg Tablet) 5 mg PO DAILY [facility] Last Admin: 11/06/24 08:49 Dose: 5 mg Benztropine Mesylate (Benztropine Mesylate 1 Mg Tablet) 1 mg PO BEDTIME PRN PRN Reason: EPS Benztropine Mesylate (Benztropine Mesylate 1 Mg Tablet) 2 mg PO DAILY [facility] Last Admin: 11/06/24 10:17 Dose: Not Given Bisacodyl (Bisacodyl 5 Mg Tablet.Dr) 5 mg PO BEDTIME PRN PRN Reason: Constipation Last Admin: 09/19/24 09:54 Dose: 5 mg Divalproex Sodium (Divalproex Sodium Er 500 Mg Tab.Er.24h) 1,000 mg PO BEDTIME [facility] Last Admin: 11/06/24 21:55 Dose: 1,000 mg Haloperidol (Haloperidol 5 Mg Tablet) 10 mg PO BID [facility] Last Admin: 11/06/24 21:04 Dose: 10 mg Haloperidol Lactate (Haloperidol Lactate 5 Mg/Ml Vial) 5 mg IM TID PRN PRN Reason: if refuse Thiothexine orHaldol Last Admin: 10/26/24 10:30 Dose: 5 mg Magnesium Hydroxide (Milk Of Magnesia 30 Ml Oral.Susp) 30 ml PO DAILY PRN PRN Reason: Constipation Metoprolol Tartrate (Metoprolol Tartrate 25 Mg Tablet) 25 mg PO DAILY [facility]; Protocol Last Admin: 11/06/24 14:53 Dose: 25 mg Multivitamins/Vitamin C (Multivitamin Tablet) 1 tab PO DAILY [facility] Last Admin: 11/06/24 14:53 Dose: 1 tab Nicotine (Nicotine 21 Mg Patch.Td24) 21 mg TRANSDERMA DAILY PRN PRN Reason: smoking cessation Nicotine Polacrilex (Nicotine Polacrilex 2 Mg Gum) 4 mg [place] Q2H PRN PRN Reason: Nicotine Cravings Patient Own Medication Thiothixene 5mg Tab 1 each PO TID@1200,1600,2100 [facility] Last Admin: 11/06/24 21:06 Dose: 1 each Olanzapine (Olanzapine 10 Mg Vial) 10 mg IM DAILY PRN PRN Reason: if refuses PO Abilify 20mg Last Admin: 10/11/24 13:48 Dose: 10 mg Olanzapine (Olanzapine 10 Mg Vial) 5 mg IM DAILY PRN PRN Reason: give if refuses Depakote Last Admin: 09/27/24 22:50 Dose: 5 mg Pharmacy Consult (Consult Rx Vancomycin Dosing) 1 each MISCELLANE DAILY PRN PRN Reason: Consult order Torsemide (Torsemide 20 Mg Tablet) 100 mg PO TuThSa@0900 [facility]; Protocol On Hold: 11/05/24 13:34 Last Admin: 11/05/24 11:35 Dose: Not Given Trazodone HCl (Trazodone Hcl 50 Mg Tablet) 50 mg PO BEDTIME MRX1 PRN PRN Reason: Insomnia Allergies Allergies Allergy/AdvReac Type Severity Reaction Status Date / Time No Known Allergies Allergy Verified 07/24/23 11:18 Assessment & Plan Assessment & Plan (1) ESRD (end stage renal disease): Status: Acute Code(s): N18.6 - End stage renal disease Plan Marco Holcomb is a 69 year old male with past medical history of ESRD on HD, bipolar disorder, Afib on Eliquis, s/p TAVR, hypertension, hyperlipidemia who presented to [facility] with erratic behavior over the past few weeks. Seen by Psych for decompensated bipolar illness in the inpt psych unit. Nephrology consulted for ESRD. 1. ESRD Dialyzes MWF at [facility] via LUE AVF 2. Hypertension / Volume Chronically pt is taking metoprolol 25 mg daily and torsemide 100 mg non-HD days 3. Nephrogenic Anemia goal is HB 10-11 and cont EPO and Fe as noted-- given ongoin infection not a candidate for IV F but will check Fe stores nonetheless 4. Mineral Bone Disease 5. WT loss: encourage eating and suppl Recommendations: -cont HD 3x/wk using restraints and sedative meds as needed and rec by marco ( his is Hcpxy ) - routine dialysis labs ordered weekly *( can draw on HD) - has pedal edema - incr fkudi removal at HD epo q wk dependig on Hb - abx per primary team will follow w team 11/02/24- refused to be seen, pacing, keeping to himself- CTP 11/03/24: As usual, he is elected to medication he needs to take, very guarded, passive aggressive during assessment thank you for checking in with me and thank you . Then no further interaction. Per nursing, patient properly will refill labs work but we can do it tomorrow as he has dialysis in the morning. Not allow to have wound care assessment or take it care. He visible at times in the kitchen, observed by lateral tremors which could be normal baseline. Very guarded, not engaged in the assessment. 11/04 Discussed patient's care with and patient agrees to continue with dialysis, antibiotics for foot, and antipsychotic medications including Haldol if he were to return home; agrees to start taking Eliquis and metoprolol while on the unit; does not want Cogentin and says he can tolerate the shakes. Patient amenable to demonstrating adherence with care in order to prepare for discharge. Discussed case with sprinkler fitter helper who agrees that patient should remain on Eliquis and metoprolol given history of AFib; tamsulosin more optional since they can always take extra fluid off during hemodialysis 11/05 taking Eliquis and metoprolol Informed Consent: understands, does not understand and further education needed Reason for continued inpatient stay Substantial Risk for: inability to function, stable for discharge, rapid decompensation and med/psych decompensation Time Spent With Patient Time: Total time managing care of this patient today ____ minutes.
[2024-11-07 08:00] VITALS: BP 93/50; PULSE 50; RESP 16; TEMP 36.6; O2SAT 95
[2024-11-07 09:01] VITALS: BP 93/50; PULSE 50
--- NOTE | 2024-11-07 09:50 | P.PNPSI_ITS ---
Subjective Subjective Date of Service: 11/07/24 Reason For Visit: Unspecified Bipolar D/O Depression Anxiety, ECT Subjective Notes: Section 8 Interim History: Patient notes that he feels weak and wants to lay down and rest. His blood pressure was was low this morning 93/50. He cancelled his lunch today d/t diarrhea and loose stools. His is visiting him today. He wants to talk with Dr. Jacob and that's between him and i. He denies anxiety or depression. Denies SI/HI/AH/VH. Medication Compliance: Yes Side effects from medications: No Review of Systems Acute medical concerns: No Mental Status Exam Mental Status Exam Narrative: Appearance: Casually dressed, adequate hygiene Behavior: Calm and cooperative throughout the interview. Eye contact is appropriate, and there are no signs of psychomotor agitation or retardation Speech: Normal volume and prosody Thought process: Logical and goal-directed Thought content: Future oriented no self-harming thoughts Mood: Calm Affect: Blunted SI:denies HI:denies VH/AH:none Delusions: None Insight/judgment: Fair insight and judgment Memory/cog: Alert, oriented x 4. grossly intact to conversational testing Diagnostics Vital Signs (24Hr): Vital Signs - 24 hr 11/06/24 14:53 11/07/24 09:01 Pulse Rate 76 50 Blood Pressure 170/100 H 93/50 L Labs 11/06/24 09:55 11/06/24 09:55 Labs: Laboratory Results - last 48 hr 11/06/24 09:55 WBC 3.0 L RBC 2.12 L Hgb 7.2 L Hct 21.4 L MCV 100.9 H MCH 34.0 H MCHC 33.6 RDW 14.2 Plt Count 93 L MPV 10.8 Immature Gran % (Auto) 0.3 Neut % (Auto) 69.5 Lymph % (Auto) 12.8 L [place] % (Auto) 14.1 H Eos % (Auto) 3.0 Baso % (Auto) 0.3 Lymph # (Auto) 0.4 L [place] # (Auto) 0.4 Eos # (Auto) 0.1 Baso # (Auto) 0.0 Abs Immat Gran (auto) 0.01 Absolute Neuts (auto) 2.1 Absolute Nucleated RBC 0.000 Nucleated RBC % (auto) 0.0 Hold Purple Top SEE NOTE Sodium 137 Potassium 4.2 Chloride 100 Carbon Dioxide 26 Anion Gap 15 BUN 36 H Creatinine 5.12 H* Estim Creat Clear Calc TNP Estimated GFR 11 Random Glucose 119 H Calcium 8.6 Total Bilirubin 0.3 AST 18 ALT 9 Alkaline Phosphatase 60 Total Protein 5.6 L Albumin 3.4 L Random Vancomycin 13.6 L Medications Medications Current Medications Acetaminophen (Acetaminophen 325 Mg Tablet) 650 mg PO Q6H PRN PRN Reason: Headache/Pain, Scale 1-10 Al Hydroxide/Mg Hydroxide (Magnesium Hydrox/Alum Hydrox 30 Ml Oral.Susp) 30 ml PO Q6H PRN PRN Reason: Heartburn/Nausea Apixaban (Apixaban 2.5 Mg Tablet) 2.5 mg PO BID [facility] Last Admin: 11/07/24 09:00 Dose: 2.5 mg Aripiprazole (Aripiprazole 20 Mg Tablet) 20 mg PO DAILY [facility] Last Admin: 11/07/24 08:59 Dose: 20 mg Aripiprazole (Aripiprazole 5 Mg Tablet) 5 mg PO DAILY [facility] Last Admin: 11/07/24 09:00 Dose: 5 mg Benztropine Mesylate (Benztropine Mesylate 1 Mg Tablet) 1 mg PO BEDTIME PRN PRN Reason: EPS Benztropine Mesylate (Benztropine Mesylate 1 Mg Tablet) 2 mg PO DAILY [facility] Last Admin: 11/07/24 09:00 Dose: Not Given Bisacodyl (Bisacodyl 5 Mg Tablet.Dr) 5 mg PO BEDTIME PRN PRN Reason: Constipation Last Admin: 09/19/24 09:54 Dose: 5 mg Divalproex Sodium (Divalproex Sodium Er 500 Mg Tab.Er.24h) 1,000 mg PO BEDTIME [facility] Last Admin: 11/06/24 21:55 Dose: 1,000 mg Haloperidol (Haloperidol 5 Mg Tablet) 10 mg PO BID [facility] Last Admin: 11/07/24 09:00 Dose: 10 mg Haloperidol Lactate (Haloperidol Lactate 5 Mg/Ml Vial) 5 mg IM TID PRN PRN Reason: if refuse Thiothexine orHaldol Last Admin: 10/26/24 10:30 Dose: 5 mg Vancomycin HCl 750 mg/ Sodium (Chloride) 265 mls @ 265 mls/hr IV ONCE ONE Stop: 11/07/24 09:33 Vancomycin HCl 1,000 mg/ (Sodium Chloride) 270 mls @ 270 mls/hr IV ONCE ONE Stop: 11/08/24 10:59 Magnesium Hydroxide (Milk Of Magnesia 30 Ml Oral.Susp) 30 ml PO DAILY PRN PRN Reason: Constipation Metoprolol Tartrate (Metoprolol Tartrate 25 Mg Tablet) 25 mg PO DAILY [facility]; Protocol Last Admin: 11/07/24 09:01 Dose: Not Given Multivitamins/Vitamin C (Multivitamin Tablet) 1 tab PO DAILY [facility] Last Admin: 11/07/24 09:00 Dose: 1 tab Nicotine (Nicotine 21 Mg Patch.Td24) 21 mg TRANSDERMA DAILY PRN PRN Reason: smoking cessation Nicotine Polacrilex (Nicotine Polacrilex 2 Mg Gum) 4 mg BUCCAL Q2H PRN PRN Reason: Nicotine Cravings Patient Own Medication Thiothixene 5mg Tab 1 each PO TID@1200,1600,2100 [facility] Last Admin: 11/06/24 21:06 Dose: 1 each Olanzapine (Olanzapine 10 Mg Vial) 10 mg IM DAILY PRN PRN Reason: if refuses PO Abilify 20mg Last Admin: 10/11/24 13:48 Dose: 10 mg Olanzapine (Olanzapine 10 Mg Vial) 5 mg IM DAILY PRN PRN Reason: give if refuses Depakote Last Admin: 09/27/24 22:50 Dose: 5 mg Pharmacy Consult (Consult Rx Vancomycin Dosing) 1 each MISCELLANE DAILY PRN PRN Reason: Consult order Torsemide (Torsemide 20 Mg Tablet) 100 mg PO TuThSa@0900 [facility]; Protocol On Hold: 11/05/24 13:34 Last Admin: 11/05/24 11:35 Dose: Not Given Trazodone HCl (Trazodone Hcl 50 Mg Tablet) 50 mg PO BEDTIME MRX1 PRN PRN Reason: Insomnia Allergies Allergies Allergy/AdvReac Type Severity Reaction Status Date / Time No Known Allergies Allergy Verified 07/24/23 11:18 Assessment & Plan Assessment & Plan (1) ESRD (end stage renal disease): Status: Acute Code(s): N18.6 - End stage renal disease Plan Marco Holcomb is a 69 year old male with past medical history of ESRD on HD, bipolar disorder, Afib on Eliquis, s/p TAVR, hypertension, hyperlipidemia who presented to [facility] with erratic behavior over the past few weeks. Seen by Psych for decompensated bipolar illness in the inpt psych unit. Nephrology consulted for ESRD. 1. ESRD Dialyzes MWF at [facility] via LUE AVF 2. Hypertension / Volume Chronically pt is taking metoprolol 25 mg daily and torsemide 100 mg non-HD days 3. Nephrogenic Anemia goal is HB 10-11 and cont EPO and Fe as noted-- given ongoin infection not a candidate for IV F but will check Fe stores nonetheless 4. Mineral Bone Disease 5. WT loss: encourage eating and suppl Recommendations: -cont HD 3x/wk using restraints and sedative meds as needed and rec by marco ( his is Hcpxy ) - routine dialysis labs ordered weekly *( can draw on HD) - has pedal edema - incr fkudi removal at HD epo q wk dependig on Hb - abx per primary team will follow w team 11/02/24- refused to be seen, pacing, keeping to himself- CTP 11/03/24: As usual, he is elected to medication he needs to take, very guarded, passive aggressive during assessment thank you for checking in with me and thank you . Then no further interaction. Per nursing, patient properly will refill labs work but we can do it tomorrow as he has dialysis in the morning. Not allow to have wound care assessment or take it care. He visible at times in the kitchen, observed by lateral tremors which could be normal baseline. Very guarded, not engaged in the assessment. 11/07: Patient notes that he feels weak and wants to lay down and rest. His blood pressure was was low this morning 93/50. He cancelled his lunch today d/t diarrhea and loose stools. His is visiting him today. He wants to talk with Dr. Jacob and that's between him and i. He denies anxiety or depression. Denies SI/HI/AH/VH. Continue current treatment regimen. Adequate hydration encouraged. Patient educated on: therapeutic strategies Reason for continued inpatient stay Substantial Risk for: rapid decompensation Time Spent With Patient Time: Total time managing care of this patient today ____ minutes.
[2024-11-07] MEDS: THIOTHIXENE 5 MG 1 EACH PO ×3 (12:25→21:02)
[2024-11-07 20:00] VITALS: BP 90/51; PULSE 55; RESP 16; TEMP 36.1; O2SAT 99
[2024-11-08 08:00] VITALS: BP 96/53; PULSE 77; RESP 16; TEMP 36.4; O2SAT 100
--- NOTE | 2024-11-08 10:05 | HO.PSYCHPN ---
Subjective Subjective Date of Service: 11/08/24 Reason For Visit: Unspecified Bipolar D/O Depression Anxiety, ECT Interim History: Met with patient; discussed with team Patient refused Eliquis today. He said yesterday he took Eliquis and Haldol and had loose stool; he said he felt dizzy thinks it is because of the Eliquis. Patient says he wants to stay off it for few days and felt adamant that it was the cause of his loose stool. Video Tape Editor discussed risks stroke and patient said I will take that risk... Insisting that he knows his body and knows the Eliquis is what caused him to feel ill. He also contested whether he needs Haldol and chart writer agreed to lowered back to 5 mg t.i.d. down from 10 mg b.i.d.. Mental Status Exam Mental Status Exam Narrative: Pt is alert and oriented; behavior is calm, a little brighter and more willing to engage on approach; intermittently resistant to care; calm; patient is not in distress; dressed in hospital pants, T-shirt, scruffy, with marginal hygiene; mood is described as ok and affect constricted though a little brighter; eye contact avoidant at times; Speech is normal rate, volume and prosody and not pressured; psychomotor retardation present but maybe a little less; thought process is goal directed; Thought content is on not wanting treatment, discharge; no expressed paranoid delusions; denies any SI/HI. Denies AVH; does not appear to be internally preoccupied. Patients insight and judgment impaired, but has improved some. Diagnostics Vital Signs (24Hr): Vital Signs - 24 hr 11/07/24 20:00 Temperature 96.9 F Pulse Rate 55 Respiratory Rate 16 Blood Pressure 90/51 L Pulse Oximetry 99 Oxygen Delivery Method Room Air Labs 11/06/24 09:55 11/06/24 09:55 Labs: Laboratory Results - last 48 hr 10/25/24 11/06/24 14:32 09:55 WBC 3.0 L RBC 2.12 L Hgb 7.2 L Hct 21.4 L MCV 100.9 H MCH 34.0 H MCHC 33.6 RDW 14.2 Plt Count 93 L MPV 10.8 Immature Gran % (Auto) 0.3 Neut % (Auto) 69.5 Lymph % (Auto) 12.8 L [place] % (Auto) 14.1 H Eos % (Auto) 3.0 Baso % (Auto) 0.3 Lymph # (Auto) 0.4 L [place] # (Auto) 0.4 Eos # (Auto) 0.1 Baso # (Auto) 0.0 Abs Immat Gran (auto) 0.01 Absolute Neuts (auto) 2.1 Absolute Nucleated RBC 0.000 Nucleated RBC % (auto) 0.0 Hold Purple Top SEE NOTE Sodium 137 Potassium 4.2 Chloride 100 Carbon Dioxide 26 Anion Gap 15 BUN 36 H Creatinine 5.12 H* Estim Creat Clear Calc TNP Estimated GFR 11 Random Glucose 119 H Calcium 8.6 Total Bilirubin 0.3 AST 18 ALT 9 Alkaline Phosphatase 60 Total Protein 5.6 L Albumin 3.4 L Random Vancomycin 13.6 L Ref Lab Test Result SEE NOTE Medications Medications Current Medications Acetaminophen (Acetaminophen 325 Mg Tablet) 650 mg PO Q6H PRN PRN Reason: Headache/Pain, Scale 1-10 Al Hydroxide/Mg Hydroxide (Magnesium Hydrox/Alum Hydrox 30 Ml Oral.Susp) 30 ml PO Q6H PRN PRN Reason: Heartburn/Nausea Apixaban (Apixaban 2.5 Mg Tablet) 2.5 mg PO BID [facility] Last Admin: 11/08/24 00:59 Dose: Not Given Aripiprazole (Aripiprazole 20 Mg Tablet) 20 mg PO DAILY [facility] Last Admin: 11/07/24 08:59 Dose: 20 mg Aripiprazole (Aripiprazole 5 Mg Tablet) 5 mg PO DAILY [facility] Last Admin: 11/07/24 09:00 Dose: 5 mg Benztropine Mesylate (Benztropine Mesylate 1 Mg Tablet) 1 mg PO BEDTIME PRN PRN Reason: EPS Benztropine Mesylate (Benztropine Mesylate 1 Mg Tablet) 2 mg PO DAILY [facility] Last Admin: 11/07/24 09:00 Dose: Not Given Bisacodyl (Bisacodyl 5 Mg Tablet.Dr) 5 mg PO BEDTIME PRN PRN Reason: Constipation Last Admin: 09/19/24 09:54 Dose: 5 mg Divalproex Sodium (Divalproex Sodium Er 500 Mg Tab.Er.24h) 1,000 mg PO BEDTIME [facility] Last Admin: 11/07/24 22:10 Dose: 1,000 mg Haloperidol (Haloperidol 5 Mg Tablet) 10 mg PO BID [facility] Last Admin: 11/07/24 20:57 Dose: 10 mg Haloperidol Lactate (Haloperidol Lactate 5 Mg/Ml Vial) 5 mg IM TID PRN PRN Reason: if refuse Thiothexine orHaldol Last Admin: 10/26/24 10:30 Dose: 5 mg Vancomycin HCl 750 mg/ Sodium (Chloride) 265 mls @ 265 mls/hr IV ONCE ONE Stop: 11/07/24 09:33 Vancomycin HCl 1,000 mg/ (Sodium Chloride) 270 mls @ 270 mls/hr IV ONCE ONE Stop: 11/08/24 10:59 Magnesium Hydroxide (Milk Of Magnesia 30 Ml Oral.Susp) 30 ml PO DAILY PRN PRN Reason: Constipation Metoprolol Tartrate (Metoprolol Tartrate 25 Mg Tablet) 25 mg PO DAILY [facility]; Protocol Last Admin: 11/07/24 09:01 Dose: Not Given Multivitamins/Vitamin C (Multivitamin Tablet) 1 tab PO DAILY [facility] Last Admin: 11/07/24 09:00 Dose: 1 tab Nicotine (Nicotine 21 Mg Patch.Td24) 21 mg TRANSDERMA DAILY PRN PRN Reason: smoking cessation Nicotine Polacrilex (Nicotine Polacrilex 2 Mg Gum) 4 mg BUCCAL Q2H PRN PRN Reason: Nicotine Cravings Patient Own Medication Thiothixene 5mg Tab 1 each PO TID@1200,1600,2100 [facility] Last Admin: 11/07/24 21:02 Dose: 1 each Olanzapine (Olanzapine 10 Mg Vial) 10 mg IM DAILY PRN PRN Reason: if refuses PO Abilify 20mg Last Admin: 10/11/24 13:48 Dose: 10 mg Olanzapine (Olanzapine 10 Mg Vial) 5 mg IM DAILY PRN PRN Reason: give if refuses Depakote Last Admin: 09/27/24 22:50 Dose: 5 mg Pharmacy Consult (Consult Rx Vancomycin Dosing) 1 each MISCELLANE DAILY PRN PRN Reason: Consult order Torsemide (Torsemide 20 Mg Tablet) 100 mg PO TuThSa@0900 [facility]; Protocol On Hold: 11/05/24 13:34 Last Admin: 11/05/24 11:35 Dose: Not Given Trazodone HCl (Trazodone Hcl 50 Mg Tablet) 50 mg PO BEDTIME MRX1 PRN PRN Reason: Insomnia Allergies Allergies Allergy/AdvReac Type Severity Reaction Status Date / Time No Known Allergies Allergy Verified 07/24/23 11:18 Assessment & Plan Assessment & Plan (1) ESRD (end stage renal disease): Status: Acute Code(s): N18.6 - End stage renal disease Plan Marco Holcomb is a 69 year old male with past medical history of ESRD on HD, bipolar disorder, Afib on Eliquis, s/p TAVR, hypertension, hyperlipidemia who presented to [facility] with erratic behavior over the past few weeks. Seen by Psych for decompensated bipolar illness in the inpt psych unit. Nephrology consulted for ESRD. 11/02/24- refused to be seen, pacing, keeping to himself- CTP 11/03/24: As usual, he is elected to medication he needs to take, very guarded, passive aggressive during assessment thank you for checking in with me and thank you . Then no further interaction. Per nursing, patient properly will refill labs work but we can do it tomorrow as he has dialysis in the morning. Not allow to have wound care assessment or take it care. He visible at times in the kitchen, observed by lateral tremors which could be normal baseline. Very guarded, not engaged in the assessment. 11/07: Patient notes that he feels weak and wants to lay down and rest. His blood pressure was was low this morning 93/50. He cancelled his lunch today d/t diarrhea and loose stools. His is visiting him today. He wants to talk with Dr. Jacob and that's between him and i. He denies anxiety or depression. Denies SI/HI/AH/VH. Continue current treatment regimen. Adequate hydration encouraged. 11/08 Patient refused Eliquis today. He said yesterday he took Eliquis and Haldol and had loose stool; he said he felt dizzy thinks it is because of the Eliquis. Patient says he wants to stay off it for few days and felt adamant that it was the cause of his loose stool. Video Tape Editor discussed risks stroke and patient said I will take that risk... Insisting that he knows his body and knows the Eliquis is what caused him to feel ill. He also contested whether he needs Haldol and chart writer agreed to lowered back to 5 mg t.i.d. down from 10 mg b.i.d.. -patient is eating better, asking for food and wanting to gain strength; use to have bilateral arm tremors but refuses Cogentin -plan remains for him to discharge next week if he continues to adhere to treatment plan; refusing Eliquis is a break from this plan however patient is currently distraught, will give him time to consider Plan: Affirmed healthcare proxy, his Continue medication regimen Medical comorbidities called 1. ESRD Dialyzes MWF at [facility] via LUE AVF 2. Hypertension / Volume Chronically pt is taking metoprolol 25 mg daily and torsemide 100 mg non-HD days 3. Nephrogenic Anemia goal is HB 10-11 and cont EPO and Fe as noted-- given ongoin infection not a candidate for IV F but will check Fe stores nonetheless 4. Mineral Bone Disease 5. WT loss: encourage eating and suppl Recommendations: -cont HD 3x/wk using restraints and sedative meds as needed and rec by marco ( his is Hcpxy ) - routine dialysis labs ordered weekly *( can draw on HD) - has pedal edema - incr fkudi removal at HD epo q wk dependig on Hb - abx per primary team Patient educated on: diagnosis, medication risk/benefits and medical condition Informed Consent: understands, does not understand and further education needed Reason for continued inpatient stay Substantial Risk for: inability to function, stable for discharge, rapid decompensation and med/psych decompensation Time Spent With Patient Time: Total time managing care of this patient today ____ minutes.
--- NOTE | 2024-11-08 10:23 | HE.PHANOTE ---
RACHANAO DOSE ADJUSTMENT BASED ON TROUGH OF 13.1 DOSE FOR MON 11/11 OF 1000MG ENTERED. PRE DIALYSIS LEVEL ON 11/11 @ 0700
[2024-11-08] MEDS: THIOTHIXENE 5 MG 1 EACH PO ×3 (13:31→21:20)
[2024-11-09 08:00] VITALS: BP 116/58; PULSE 101; RESP 20; TEMP 36.4; O2SAT 95
[2024-11-09] MEDS: THIOTHIXENE 5 MG 1 EACH PO ×3 (11:57→20:48)
--- NOTE | 2024-11-09 17:35 | HO.PSYCHPN ---
Subjective Subjective Date of Service: 11/09/24 Reason For Visit: Unspecified Bipolar D/O Depression Anxiety, ECT Interim History: Remains ambivalent and anxious. He refuses metoprolol and eliquis in spite of encouragement. He believes it is responsible for GI upset and that it interacts with the Haldol. He agrees to haldol. Review of Systems Review of Systems ESRD Yes all other systems are reviewed and are negative and Unobtainable due to mental status Constitutional: Denies chills and Denies fever(s) Mental Status Exam Mental Status Exam Narrative: . Pt is alert and oriented; behavior is calm, brighter and cooperative; much more amenable to care, though still refuses certain things; calm; patient is not in distress; dressed in hospital pants, T-shirt, scruffy, with adequate hygiene; mood is described as ok and affect constricted though a little brighter; eye contact adequate; Speech is normal rate, volume and prosody and not pressured; no psychomotor retardation; thought process is goal directed; Thought content is on wanting discharge; no expressed paranoid delusions; denies any SI/HI. Denies AVH; does not appear to be internally preoccupied. Patients insight and judgment impaired, but has improved some. Patient Appearance: Appropriate Patient Orientation: Person, Place, Time and Situation Level of Consciousness: Alert Patient Behavior: Poor Eye Contact Mood Description: Hostile and Angry Affect Description: Withdrawn and Hostile Patient Cognition Impaired: No Ability to Follow Directions: Fair Speech Pattern: Spontaneous Speech Memory Description: Episodic Impaired Diagnostics Vital Signs (24Hr): Vital Signs - 24 hr 11/09/24 08:00 Temperature 97.6 F Pulse Rate 101 H Respiratory Rate 20 Blood Pressure 116/58 L Pulse Oximetry 95 Oxygen Delivery Method Room Air Labs 11/06/24 09:55 11/06/24 09:55 Labs: Laboratory Results - last 48 hr 10/25/24 11/08/24 14:32 08:57 Random Vancomycin 13.5 L Ref Lab Test Result SEE NOTE Medications Medications Current Medications Acetaminophen (Acetaminophen 325 Mg Tablet) 650 mg PO Q6H PRN PRN Reason: Headache/Pain, Scale 1-10 Al Hydroxide/Mg Hydroxide (Magnesium Hydrox/Alum Hydrox 30 Ml Oral.Susp) 30 ml PO Q6H PRN PRN Reason: Heartburn/Nausea Apixaban (Apixaban 2.5 Mg Tablet) 2.5 mg PO BID [facility] Last Admin: 11/09/24 10:07 Dose: Not Given Aripiprazole (Aripiprazole 20 Mg Tablet) 20 mg PO DAILY [facility] Last Admin: 11/09/24 10:04 Dose: 20 mg Aripiprazole (Aripiprazole 5 Mg Tablet) 5 mg PO DAILY [facility] Last Admin: 11/09/24 10:04 Dose: 5 mg Benztropine Mesylate (Benztropine Mesylate 1 Mg Tablet) 1 mg PO BEDTIME PRN PRN Reason: EPS Benztropine Mesylate (Benztropine Mesylate 1 Mg Tablet) 2 mg PO DAILY [facility] Last Admin: 11/09/24 10:07 Dose: Not Given Bisacodyl (Bisacodyl 5 Mg Tablet.Dr) 5 mg PO BEDTIME PRN PRN Reason: Constipation Last Admin: 09/19/24 09:54 Dose: 5 mg Divalproex Sodium (Divalproex Sodium Er 500 Mg Tab.Er.24h) 1,000 mg PO BEDTIME [facility] Last Admin: 11/08/24 21:21 Dose: 1,000 mg Haloperidol (Haloperidol 5 Mg Tablet) 5 mg PO TID [facility] Last Admin: 11/09/24 15:59 Dose: 5 mg Haloperidol Lactate (Haloperidol Lactate 5 Mg/Ml Vial) 5 mg IM TID PRN PRN Reason: if refuse Thiothexine orHaldol Last Admin: 10/26/24 10:30 Dose: 5 mg Vancomycin HCl 750 mg/ Sodium (Chloride) 265 mls @ 265 mls/hr IV ONCE ONE Stop: 11/07/24 09:33 Vancomycin HCl 1,000 mg/ (Sodium Chloride) 270 mls @ 270 mls/hr IV ONCE ONE Stop: 11/11/24 09:59 Magnesium Hydroxide (Milk Of Magnesia 30 Ml Oral.Susp) 30 ml PO DAILY PRN PRN Reason: Constipation Metoprolol Tartrate (Metoprolol Tartrate 25 Mg Tablet) 25 mg PO DAILY [facility]; Protocol Last Admin: 11/09/24 10:08 Dose: Not Given Multivitamins/Vitamin C (Multivitamin Tablet) 1 tab PO DAILY [facility] Last Admin: 11/09/24 10:08 Dose: Not Given Nicotine (Nicotine 21 Mg Patch.Td24) 21 mg TRANSDERMA DAILY PRN PRN Reason: smoking cessation Nicotine Polacrilex (Nicotine Polacrilex 2 Mg Gum) 4 mg BUCCAL Q2H PRN PRN Reason: Nicotine Cravings Patient Own Medication Thiothixene 5mg Tab 1 each PO TID@1200,1600,2100 [facility] Last Admin: 11/09/24 15:57 Dose: 1 each Olanzapine (Olanzapine 10 Mg Vial) 10 mg IM DAILY PRN PRN Reason: if refuses PO Abilify 20mg Last Admin: 10/11/24 13:48 Dose: 10 mg Olanzapine (Olanzapine 10 Mg Vial) 5 mg IM DAILY PRN PRN Reason: give if refuses Depakote Last Admin: 09/27/24 22:50 Dose: 5 mg Pharmacy Consult (Consult Rx Vancomycin Dosing) 1 each MISCELLANE DAILY PRN PRN Reason: Consult order Torsemide (Torsemide 20 Mg Tablet) 100 mg PO TuThSa@0900 [facility]; Protocol On Hold: 11/05/24 13:34 Last Admin: 11/05/24 11:35 Dose: Not Given Trazodone HCl (Trazodone Hcl 50 Mg Tablet) 50 mg PO BEDTIME MRX1 PRN PRN Reason: Insomnia Allergies Allergies Allergy/AdvReac Type Severity Reaction Status Date / Time No Known Allergies Allergy Verified 07/24/23 11:18 Assessment & Plan Assessment & Plan (1) ESRD (end stage renal disease): Status: Acute Code(s): N18.6 - End stage renal disease Plan Marco Holcomb is a 69 year old male with past medical history of ESRD on HD, bipolar disorder, Afib on Eliquis, s/p TAVR, hypertension, hyperlipidemia who presented to [facility] with erratic behavior over the past few weeks. Seen by Psych for decompensated bipolar illness in the inpt psych unit. Nephrology consulted for ESRD. 1. ESRD Dialyzes MWF at [facility] via LUE AVF 2. Hypertension / Volume Chronically pt is taking metoprolol 25 mg daily and torsemide 100 mg non-HD days 3. Nephrogenic Anemia goal is HB 10-11 and cont EPO and Fe as noted-- given ongoin infection not a candidate for IV F but will check Fe stores nonetheless 4. Mineral Bone Disease 5. WT loss: encourage eating and suppl Recommendations: -cont HD 3x/wk using restraints and sedative meds as needed and rec by marco ( his is Hcpxy ) - routine dialysis labs ordered weekly *( can draw on HD) - has pedal edema - incr fkudi removal at HD epo q wk dependig on Hb - abx per primary team will follow w team 11/02/24- refused to be seen, pacing, keeping to himself- CTP 11/03/24: As usual, he is elected to medication he needs to take, very guarded, passive aggressive during assessment thank you for checking in with me and thank you . Then no further interaction. Per nursing, patient properly will refill labs work but we can do it tomorrow as he has dialysis in the morning. Not allow to have wound care assessment or take it care. He visible at times in the kitchen, observed by lateral tremors which could be normal baseline. Very guarded, not engaged in the assessment. 11/04 Discussed patient's care with and patient agrees to continue with dialysis, antibiotics for foot, and antipsychotic medications including Haldol if he were to return home; agrees to start taking Eliquis and metoprolol while on the unit; does not want Cogentin and says he can tolerate the shakes. Patient amenable to demonstrating adherence with care in order to prepare for discharge. Discussed case with billing control clerk who agrees that patient should remain on Eliquis and metoprolol given history of AFib; tamsulosin more optional since they can always take extra fluid off during hemodialysis 11/05 taking Eliquis and metoprolol 11/06 Discussed Haldol. Patient said he wished to could be lowered however typewriter aligner expressed that patient seems to have improved with it addition and so patient said he was okay with continuing with it 11/09: continue current management and treatment plan. Refused Eliquis and Metoprolol again. Reason for continued inpatient stay Substantial Risk for: harm to self, inability to function, rapid decompensation and med/psych decompensation Time Spent With Patient Time: Total time managing care of this patient today ____ minutes.
[2024-11-09 19:47] VITALS: BP 135/96; PULSE 92; TEMP 36.1; O2SAT 96
[2024-11-10 08:00] VITALS: PULSE 85; TEMP 35.7; O2SAT 99
[2024-11-10 09:11] VITALS: BP 118/60; PULSE 80; TEMP 36.3; O2SAT 100
--- NOTE | 2024-11-10 09:23 | HO.PSYCHPN ---
Subjective Subjective Date of Service: 11/10/24 Reason For Visit: Unspecified Bipolar D/O Depression Anxiety, ECT Interim History: Remains ambivalent and anxious. He refuses metoprolol and Eliquis in spite of encouragement. He asks about his tremors. He said he was on Cogentin for it. He is ambivalent saying I am going home Monday and I want things to be squared away before I go and in the same time refusing medication. Educated also about Metoprolol potentially helping with tremor and encouraged to take. Review of Systems Review of Systems ESRD Yes all other systems are reviewed and are negative and Unobtainable due to mental status Constitutional: Denies chills and Denies fever(s) Mental Status Exam Mental Status Exam Narrative: . Pt is alert and oriented; behavior is calm, brighter and cooperative; much more amenable to care, though still refuses certain things; calm; patient is not in distress; dressed in hospital pants, T-shirt, scruffy, with adequate hygiene; mood is described as ok and affect constricted though a little brighter; eye contact adequate; Speech is normal rate, volume and prosody and not pressured; no psychomotor retardation; thought process is goal directed; Thought content is on wanting discharge; no expressed paranoid delusions; denies any SI/HI. Denies AVH; does not appear to be internally preoccupied. Patients insight and judgment impaired, but has improved some. Patient Appearance: Appropriate Patient Orientation: Person, Place, Time and Situation Level of Consciousness: Alert Patient Behavior: Poor Eye Contact Mood Description: Hostile and Angry Affect Description: Withdrawn and Hostile Patient Cognition Impaired: No Ability to Follow Directions: Fair Speech Pattern: Spontaneous Speech Memory Description: Episodic Impaired Diagnostics Vital Signs (24Hr): Vital Signs - 24 hr 11/09/24 19:47 11/10/24 08:00 Temperature 97.0 F 96.2 F L Pulse Rate 92 85 Blood Pressure 135/96 H Pulse Oximetry 96 99 Oxygen Delivery Method Room Air Room Air Labs 11/06/24 09:55 11/06/24 09:55 Labs: Laboratory Results - last 48 hr 11/08/24 08:57 Random Vancomycin 13.5 L Medications Medications Current Medications Acetaminophen (Acetaminophen 325 Mg Tablet) 650 mg PO Q6H PRN PRN Reason: Headache/Pain, Scale 1-10 Al Hydroxide/Mg Hydroxide (Magnesium Hydrox/Alum Hydrox 30 Ml Oral.Susp) 30 ml PO Q6H PRN PRN Reason: Heartburn/Nausea Apixaban (Apixaban 2.5 Mg Tablet) 2.5 mg PO BID [facility] Last Admin: 11/09/24 20:50 Dose: Not Given Aripiprazole (Aripiprazole 20 Mg Tablet) 20 mg PO DAILY [facility] Last Admin: 11/09/24 10:04 Dose: 20 mg Aripiprazole (Aripiprazole 5 Mg Tablet) 5 mg PO DAILY [facility] Last Admin: 11/09/24 10:04 Dose: 5 mg Benztropine Mesylate (Benztropine Mesylate 1 Mg Tablet) 1 mg PO BEDTIME PRN PRN Reason: EPS Benztropine Mesylate (Benztropine Mesylate 1 Mg Tablet) 2 mg PO DAILY [facility] Last Admin: 11/09/24 10:07 Dose: Not Given Bisacodyl (Bisacodyl 5 Mg Tablet.Dr) 5 mg PO BEDTIME PRN PRN Reason: Constipation Last Admin: 09/19/24 09:54 Dose: 5 mg Divalproex Sodium (Divalproex Sodium Er 500 Mg Tab.Er.24h) 1,000 mg PO BEDTIME [facility] Last Admin: 11/09/24 20:51 Dose: 1,000 mg Haloperidol (Haloperidol 5 Mg Tablet) 5 mg PO TID [facility] Last Admin: 11/09/24 20:49 Dose: 5 mg Haloperidol Lactate (Haloperidol Lactate 5 Mg/Ml Vial) 5 mg IM TID PRN PRN Reason: if refuse Thiothexine orHaldol Last Admin: 10/26/24 10:30 Dose: 5 mg Vancomycin HCl 750 mg/ Sodium (Chloride) 265 mls @ 265 mls/hr IV ONCE ONE Stop: 11/07/24 09:33 Vancomycin HCl 1,000 mg/ (Sodium Chloride) 270 mls @ 270 mls/hr IV ONCE ONE Stop: 11/11/24 09:59 Magnesium Hydroxide (Milk Of Magnesia 30 Ml Oral.Susp) 30 ml PO DAILY PRN PRN Reason: Constipation Metoprolol Tartrate (Metoprolol Tartrate 25 Mg Tablet) 25 mg PO DAILY [facility]; Protocol Last Admin: 11/09/24 10:08 Dose: Not Given Multivitamins/Vitamin C (Multivitamin Tablet) 1 tab PO DAILY [facility] Last Admin: 11/09/24 10:08 Dose: Not Given Nicotine (Nicotine 21 Mg Patch.Td24) 21 mg TRANSDERMA DAILY PRN PRN Reason: smoking cessation Nicotine Polacrilex (Nicotine Polacrilex 2 Mg Gum) 4 mg BUCCAL Q2H PRN PRN Reason: Nicotine Cravings Patient Own Medication Thiothixene 5mg Tab 1 each PO TID@1200,1600,2100 [facility] Last Admin: 11/09/24 20:48 Dose: 1 each Olanzapine (Olanzapine 10 Mg Vial) 10 mg IM DAILY PRN PRN Reason: if refuses PO Abilify 20mg Last Admin: 10/11/24 13:48 Dose: 10 mg Olanzapine (Olanzapine 10 Mg Vial) 5 mg IM DAILY PRN PRN Reason: give if refuses Depakote Last Admin: 09/27/24 22:50 Dose: 5 mg Pharmacy Consult (Consult Rx Vancomycin Dosing) 1 each MISCELLANE DAILY PRN PRN Reason: Consult order Torsemide (Torsemide 20 Mg Tablet) 100 mg PO TuThSa@0900 [facility]; Protocol On Hold: 11/05/24 13:34 Last Admin: 11/05/24 11:35 Dose: Not Given Trazodone HCl (Trazodone Hcl 50 Mg Tablet) 50 mg PO BEDTIME MRX1 PRN PRN Reason: Insomnia Allergies Allergies Allergy/AdvReac Type Severity Reaction Status Date / Time No Known Allergies Allergy Verified 07/24/23 11:18 Assessment & Plan Assessment & Plan (1) ESRD (end stage renal disease): Status: Acute Code(s): N18.6 - End stage renal disease Plan Marco Holcomb is a 69 year old male with past medical history of ESRD on HD, bipolar disorder, Afib on Eliquis, s/p TAVR, hypertension, hyperlipidemia who presented to [facility] with erratic behavior over the past few weeks. Seen by Psych for decompensated bipolar illness in the inpt psych unit. Nephrology consulted for ESRD. 1. ESRD Dialyzes MWF at [facility] via LUE [facility] 2. Hypertension / Volume Chronically pt is taking metoprolol 25 mg daily and torsemide 100 mg non-HD days 3. Nephrogenic Anemia goal is HB 10-11 and cont EPO and Fe as noted-- given ongoin infection not a candidate for IV F but will check Fe stores nonetheless 4. Mineral Bone Disease 5. WT loss: encourage eating and suppl Recommendations: -cont HD 3x/wk using restraints and sedative meds as needed and rec by marco ( his is Hcpxy ) - routine dialysis labs ordered weekly *( can draw on HD) - has pedal edema - incr fkudi removal at HD epo q wk dependig on Hb - abx per primary team will follow w team 11/02/24- refused to be seen, pacing, keeping to himself- CTP 11/03/24: As usual, he is elected to medication he needs to take, very guarded, passive aggressive during assessment thank you for checking in with me and thank you . Then no further interaction. Per nursing, patient properly will refill labs work but we can do it tomorrow as he has dialysis in the morning. Not allow to have wound care assessment or take it care. He visible at times in the kitchen, observed by lateral tremors which could be normal baseline. Very guarded, not engaged in the assessment. 11/04 Discussed patient's care with and patient agrees to continue with dialysis, antibiotics for foot, and antipsychotic medications including Haldol if he were to return home; agrees to start taking Eliquis and metoprolol while on the unit; does not want Cogentin and says he can tolerate the shakes. Patient amenable to demonstrating adherence with care in order to prepare for discharge. Discussed case with recruitment assistant who agrees that patient should remain on Eliquis and metoprolol given history of AFib; tamsulosin more optional since they can always take extra fluid off during hemodialysis 11/05 taking Eliquis and metoprolol 11/06 Discussed Haldol. Patient said he wished to could be lowered however adjusto writer operator expressed that patient seems to have improved with it addition and so patient said he was okay with continuing with it 11/09: continue current management and treatment plan. Refused Eliquis and Metoprolol again. 11/10: Encouraged adherence. Continue current management and treatment plan. Reason for continued inpatient stay Substantial Risk for: inability to function, rapid decompensation and med/psych decompensation Time Spent With Patient Time: Total time managing care of this patient today ____ minutes.
[2024-11-10] MEDS: THIOTHIXENE 5 MG 1 EACH PO ×3 (11:07→20:55)
[2024-11-10 19:47] VITALS: BP 173/72; PULSE 67; RESP 15; TEMP 36.1; O2SAT 94
[2024-11-10 20:13] VITALS: BP 120/60
[2024-11-11 08:35] VITALS: BP 130/60
--- NOTE | 2024-11-11 13:10 | PC.NURSE ---
Marco returned from HD at 1pm. He tolerated procedure well and received Vancomycin during treatment. Once back on M5- ate lunch and took morning medications he didn't have prior to HD
[2024-11-11] MEDS: THIOTHIXENE 5 MG 1 EACH PO ×3 (13:31→21:04)
--- NOTE | 2024-11-11 16:43 | PC.NURSE ---
Pt declined to take 3 pm dose of Haldol stating that I already took it this morning with my Abilify. TW only administered Abilify prior to going for HD as it indicated ok to administer prior to HD. the Haldol does not have this comment. Haldol, Eliquis, and Thiothixene were given when he returned and was given the dose at 1334 pm. When his second dose of Haldol was offered he declined as he adamantly believed he took Haldol prior to HD and after HD. According to the Pyx[facility] the Haldol confirms it was only pulled twice, (second dose would have been the 1500 dose he refused). Priya Angel aware and Dr Arora aware of situation and elected to hold second dose of Haldol. Pt will receive the 2100 dose of Haldol as scheduled and he is aware.
[2024-11-11 20:00] VITALS: BP 181/83; PULSE 108; TEMP 36.1; O2SAT 92
--- NOTE | 2024-11-11 22:56 | HO.PSYCHPN ---
Subjective Subjective Date of Service: 11/11/24 Reason For Visit: Unspecified Bipolar D/O Depression Anxiety, ECT Subjective Notes: Conditional Voluntary (By healthcare proxy) Healthcare Proxy: Yes Medical Problems Affecting Mental Status: No Interim History: Medical record and nursing notes reviewed; case discussed during rounds with team/nursing staff, and met with patient for supportive therapy/psychoeducation, as well as medication management. Patient was medication compliant mostly his medication, he also take blood thinner this morning. Reports he was bleeding nose last week but denies it any more bleeding the past couple of days. He assumed that he take medication prior to dialysis especially the Haldol, he took another dose after came back from dialysis. In his mind, he thinks he only took 2 doses today and we will not taking more until nighttime. Case discussed with nursing, and Dr. Arora. The team decided to held the Haldol scheduled at 15 as it really close to previous dose if it. Patient reported that Dr. Mccord told him he will take him off from Haldol to severe hand tremors. Patient is aware that he is discharging this Monday after dialysis, he also will have to signed the contract with his tomorrow prior to be dischargedc. He states that he his came to visit him today but it was quiet visit as we has been catch up with everything. Not much to talk . Is more reasonable, pleasant, and engaged in conversation. Medication Compliance: Yes (Per healthcare proxy ) Side effects from medications: Yes (Hand tremors from Haldol) Attending Groups: Intermittent Review of Systems Acute medical concerns: No Medical Review of Systems: unchanged Review of Systems Review of Systems ESRD Yes all other systems are reviewed and are negative and Unobtainable due to mental status Constitutional: Denies chills and Denies fever(s) Mental Status Exam Mental Status Exam Narrative: . Pt is alert and oriented; behavior is calm with mild anxiety related to discharge, brighter and cooperative; much more amenable to care, though still refuses certain things; calm; patient is not in distress; dressed in hospital pants, T-shirt, scruffy, with adequate hygiene; mood is described as good and affect constricted though a little brighter; eye contact adequate; Speech is normal rate, volume and prosody and not pressured; no psychomotor retardation; thought process is goal directed; Thought content is on discharge; no expressed paranoid delusions; denies any SI/HI. Denies AVH; does not appear to be internally preoccupied. Patients insight and judgment impaired, but has been improving . Diagnostics Vital Signs (24Hr): Vital Signs - 24 hr 11/11/24 08:35 11/11/24 20:00 Temperature 96.9 F Pulse Rate 108 H Blood Pressure 130/60 181/83 H Pulse Oximetry 92 Oxygen Delivery Method Room Air Labs 11/06/24 09:55 11/06/24 09:55 Labs: Laboratory Results - last 48 hr 11/11/24 09:39 Random Vancomycin 15.4 Medications Medications Current Medications Acetaminophen (Acetaminophen 325 Mg Tablet) 650 mg PO Q6H PRN PRN Reason: Headache/Pain, Scale 1-10 Al Hydroxide/Mg Hydroxide (Magnesium Hydrox/Alum Hydrox 30 Ml Oral.Susp) 30 ml PO Q6H PRN PRN Reason: Heartburn/Nausea Apixaban (Apixaban 2.5 Mg Tablet) 2.5 mg PO BID [facility] Last Admin: 11/11/24 21:05 Dose: 2.5 mg Aripiprazole (Aripiprazole 20 Mg Tablet) 20 mg PO DAILY [facility] Last Admin: 11/11/24 08:21 Dose: 20 mg Aripiprazole (Aripiprazole 5 Mg Tablet) 5 mg PO DAILY [facility] Last Admin: 11/11/24 08:21 Dose: 5 mg Benztropine Mesylate (Benztropine Mesylate 1 Mg Tablet) 1 mg PO BEDTIME PRN PRN Reason: EPS Benztropine Mesylate (Benztropine Mesylate 1 Mg Tablet) 2 mg PO DAILY [facility] Last Admin: 11/11/24 11:06 Dose: Not Given Bisacodyl (Bisacodyl 5 Mg Tablet.Dr) 5 mg PO BEDTIME PRN PRN Reason: Constipation Last Admin: 09/19/24 09:54 Dose: 5 mg Divalproex Sodium (Divalproex Sodium Er 500 Mg Tab.Er.24h) 1,000 mg PO BEDTIME [facility] Last Admin: 11/11/24 22:04 Dose: 1,000 mg Haloperidol (Haloperidol 5 Mg Tablet) 5 mg PO TID [facility] Last Admin: 11/11/24 21:05 Dose: 5 mg Haloperidol Lactate (Haloperidol Lactate 5 Mg/Ml Vial) 5 mg IM TID PRN PRN Reason: if refuse Thiothexine orHaldol Last Admin: 10/26/24 10:30 Dose: 5 mg Vancomycin HCl 750 mg/ Sodium (Chloride) 265 mls @ 265 mls/hr IV ONCE ONE Stop: 11/07/24 09:33 Vancomycin HCl 1,000 mg/ (Sodium Chloride) 270 mls @ 270 mls/hr IV ONCE ONE Stop: 11/13/24 11:59 Magnesium Hydroxide (Milk Of Magnesia 30 Ml Oral.Susp) 30 ml PO DAILY PRN PRN Reason: Constipation Metoprolol Tartrate (Metoprolol Tartrate 25 Mg Tablet) 25 mg PO DAILY [facility]; Protocol Last Admin: 11/11/24 11:06 Dose: Not Given Multivitamins/Vitamin C (Multivitamin Tablet) 1 tab PO DAILY [facility] Last Admin: 11/11/24 11:06 Dose: Not Given Nicotine (Nicotine 21 Mg Patch.Td24) 21 mg TRANSDERMA DAILY PRN PRN Reason: smoking cessation Nicotine Polacrilex (Nicotine Polacrilex 2 Mg Gum) 4 mg BUCCAL Q2H PRN PRN Reason: Nicotine Cravings Patient Own Medication Thiothixene 5mg Tab 1 each PO TID@1200,1600,2100 [facility] Last Admin: 11/11/24 21:04 Dose: 1 each Olanzapine (Olanzapine 10 Mg Vial) 10 mg IM DAILY PRN PRN Reason: if refuses PO Abilify 20mg Last Admin: 10/11/24 13:48 Dose: 10 mg Olanzapine (Olanzapine 10 Mg Vial) 5 mg IM DAILY PRN PRN Reason: give if refuses Depakote Last Admin: 09/27/24 22:50 Dose: 5 mg Pharmacy Consult (Consult Rx Vancomycin Dosing) 1 each MISCELLANE DAILY PRN PRN Reason: Consult order Torsemide (Torsemide 20 Mg Tablet) 100 mg PO TuThSa@0900 [facility]; Protocol On Hold: 11/05/24 13:34 Last Admin: 11/05/24 11:35 Dose: Not Given Trazodone HCl (Trazodone Hcl 50 Mg Tablet) 50 mg PO BEDTIME MRX1 PRN PRN Reason: Insomnia Allergies Allergies Allergy/AdvReac Type Severity Reaction Status Date / Time No Known Allergies Allergy Verified 07/24/23 11:18 Assessment & Plan Assessment & Plan (1) ESRD (end stage renal disease): Status: Acute Code(s): N18.6 - End stage renal disease Plan Marco Holcomb is a 69 year old male with past medical history of ESRD on HD, bipolar disorder, Afib on Eliquis, s/p TAVR, hypertension, hyperlipidemia who presented to [facility] [place] with erratic behavior over the past few weeks. Seen by Psych for decompensated bipolar illness in the inpt psych unit. Nephrology consulted for ESRD. 1. ESRD Dialyzes MWF at [facility] via LUE AVF 2. Hypertension / Volume Chronically pt is taking metoprolol 25 mg daily and torsemide 100 mg non-HD days 3. Nephrogenic Anemia goal is HB 10-11 and cont EPO and Fe as noted-- given ongoin infection not a candidate for IV F but will check Fe stores nonetheless 4. Mineral Bone Disease 5. WT loss: encourage eating and suppl Recommendations: -cont HD 3x/wk using restraints and sedative meds as needed and rec by marco ( his is Hcpxy ) - routine dialysis labs ordered weekly *( can draw on HD) - has pedal edema - incr fkudi removal at HD epo q wk dependig on Hb - abx per primary team will follow w team 11/02/24- refused to be seen, pacing, keeping to himself- CTP 11/03/24: As usual, he is elected to medication he needs to take, very guarded, passive aggressive during assessment thank you for checking in with me and thank you . Then no further interaction. Per nursing, patient properly will refill labs work but we can do it tomorrow as he has dialysis in the morning. Not allow to have wound care assessment or take it care. He visible at times in the kitchen, observed by lateral tremors which could be normal baseline. Very guarded, not engaged in the assessment. 11/04 Discussed patient's care with and patient agrees to continue with dialysis, antibiotics for foot, and antipsychotic medications including Haldol if he were to return home; agrees to start taking Eliquis and metoprolol while on the unit; does not want Cogentin and says he can tolerate the shakes. Patient amenable to demonstrating adherence with care in order to prepare for discharge. Discussed case with crystal lapper who agrees that patient should remain on Eliquis and metoprolol given history of AFib; tamsulosin more optional since they can always take extra fluid off during hemodialysis 8/5 taking Eliquis and metoprolol 11/06 Discussed Haldol. Patient said he wished to could be lowered however senior technical writer expressed that patient seems to have improved with it addition and so patient said he was okay with continuing with it 11/09: continue current management and treatment plan. Refused Eliquis and Metoprolol again. 11/10: Encouraged adherence. Continue current management and treatment plan. 11/11/24: Patient was medication compliant mostly his medication, he also take blood thinner this morning. Reports he has bleeding nose last week but denies it any more bleeding the past couple of days. He assumed that he take medication prior to dialysis especially the Haldol, he took another dose after came back from dialysis. In his mind, he thinks he only took 2 doses today and we will not taking more until nighttime. Case discussed with nursing, and Dr. Arora. The team decided to held the Haldol scheduled at 1500 as it really close to previous dose received after dialysis. Patient reported that Dr. Mccord told him he will take him off from Haldol due to severe hand tremors. Patient is aware that he is discharging this Monday after dialysis, he also will have to signed the contract with his tomorrow. He states that he his came to visit him today but it was quiet visit as we has been caught up with everything. Not much to talk . Is more reasonable, pleasant, and engaged in conversation. More organized and rationale, brighter, more pleasant upon approach. Patient educated on: diagnosis, medication risk/benefits and therapeutic strategies Informed Consent: understands and further education needed Reason for continued inpatient stay Substantial Risk for: med/psych decompensation Time Spent With Patient Time: Total time managing care of this patient today ____ minutes.
[2024-11-12 08:00] VITALS: BP 138/78; PULSE 84; RESP 16; O2SAT 98
--- NOTE | 2024-11-12 09:56 | HO.PSYCHPN ---
Subjective Subjective Date of Service: 11/12/24 Reason For Visit: Unspecified Bipolar D/O Depression Anxiety, ECT Interim History: Met with patient; discussed with team Patient remains doing better and his who visits daily agrees. Patient is eating consistently and wanting to get back in shape Patient signed a contract saying which medications he would continue to take daily and that he will continue with dialysis. Patient able to discuss his treatment reasonably and agreed to have his Haldol and thiothixene changed to b.i.d. and daily dosing; he also like the idea of long-acting injectables so that he would not have to take these medications daily. He encouraged credit underwriter to speak with his outpatient provider. -credit underwriter discussed driving with patient who agrees that he is deconditioned and says he will not be driving; he agrees to discuss it with Dr. Pena whether or not he can resume -Slot Machine Key Person and patient discussed risk of AFib and risk of stroke which he accepted as an actual risk; last Monday he said he wanted to take a break from Eliquis and was okay with that risk but since then he has decided to resume Eliquis; bloody nose resolved. Of note, patient's ability to understand his risk for AFib and possible stroke demonstrates patient has significantly improved capacity for accepting/rejecting Eliquis/metoprolol. -He remains ambivalent about the Cogentin but was willing to try today -today with some coaxing, patient allowed wound nurse to look at his toe which is doing better; Discussed with hospitalist and patient has concluded course of antibiotics -patient accepted VNA Mental Status Exam Mental Status Exam Narrative: Pt is alert and oriented; behavior is calm, cooperative, much more reasonable and able to discuss treatment; intermittently resistant to care; calm; patient is not in distress; dressed in hospital pants, T-shirt, scruffy, with adequate hygiene; mood is described as good and affect noticeably brighter; eye contact appropriate; Speech is normal rate, volume and prosody and not pressured; no psychomotor retardation present; thought process is goal directed and linear; Thought content continue treatment, discharge; no expressed paranoid delusions; denies any SI/HI. Denies AVH; does not appear to be internally preoccupied. Patients insight and judgment impaired, but significantly improved and close to baseline Diagnostics Vital Signs (24Hr): Vital Signs - 24 hr 11/11/24 20:00 11/12/24 08:00 Temperature 96.9 F Pulse Rate 108 H 84 Respiratory Rate 16 Blood Pressure 181/83 H 138/78 Pulse Oximetry 92 98 Oxygen Delivery Method Room Air Labs 11/06/24 09:55 11/06/24 09:55 Labs: Laboratory Results - last 48 hr 11/11/24 09:39 Random Vancomycin 15.4 Medications Medications Current Medications Acetaminophen (Acetaminophen 325 Mg Tablet) 650 mg PO Q6H PRN PRN Reason: Headache/Pain, Scale 1-10 Al Hydroxide/Mg Hydroxide (Magnesium Hydrox/Alum Hydrox 30 Ml Oral.Susp) 30 ml PO Q6H PRN PRN Reason: Heartburn/Nausea Apixaban (Apixaban 2.5 Mg Tablet) 2.5 mg PO BID COUNTS INCLUDE 234 BEDS AT THE [facility] Last Admin: 11/12/24 09:24 Dose: 2.5 mg Aripiprazole (Aripiprazole 20 Mg Tablet) 20 mg PO DAILY COUNTS INCLUDE 234 BEDS AT THE [facility] Last Admin: 11/12/24 09:24 Dose: 20 mg Aripiprazole (Aripiprazole 5 Mg Tablet) 5 mg PO DAILY COUNTS INCLUDE 234 BEDS AT THE [facility] Last Admin: 11/12/24 09:24 Dose: 5 mg Benztropine Mesylate (Benztropine Mesylate 1 Mg Tablet) 1 mg PO BEDTIME PRN PRN Reason: EPS Benztropine Mesylate (Benztropine Mesylate 1 Mg Tablet) 2 mg PO DAILY COUNTS INCLUDE 234 BEDS AT THE [facility] Last Admin: 11/12/24 09:27 Dose: Not Given Bisacodyl (Bisacodyl 5 Mg Tablet.Dr) 5 mg PO BEDTIME PRN PRN Reason: Constipation Last Admin: 09/19/24 09:54 Dose: 5 mg Divalproex Sodium (Divalproex Sodium Er 500 Mg Tab.Er.24h) 1,000 mg PO BEDTIME COUNTS INCLUDE 234 BEDS AT THE [facility] Last Admin: 11/11/24 22:04 Dose: 1,000 mg Haloperidol (Haloperidol 5 Mg Tablet) 5 mg PO TID COUNTS INCLUDE 234 BEDS AT THE [facility] Last Admin: 11/12/24 09:25 Dose: 5 mg Haloperidol Lactate (Haloperidol Lactate 5 Mg/Ml Vial) 5 mg IM TID PRN PRN Reason: if refuse Thiothexine orHaldol Last Admin: 10/26/24 10:30 Dose: 5 mg Vancomycin HCl 750 mg/ Sodium (Chloride) 265 mls @ 265 mls/hr IV ONCE ONE Stop: 11/07/24 09:33 Vancomycin HCl 1,000 mg/ (Sodium Chloride) 270 mls @ 270 mls/hr IV ONCE ONE Stop: 11/13/24 11:59 Magnesium Hydroxide (Milk Of Magnesia 30 Ml Oral.Susp) 30 ml PO DAILY PRN PRN Reason: Constipation Metoprolol Tartrate (Metoprolol Tartrate 25 Mg Tablet) 25 mg PO DAILY COUNTS INCLUDE 234 BEDS AT THE [facility]; Protocol Last Admin: 11/12/24 09:27 Dose: Not Given Multivitamins/Vitamin C (Multivitamin Tablet) 1 tab PO DAILY COUNTS INCLUDE 234 BEDS AT THE [facility] Last Admin: 11/12/24 09:27 Dose: Not Given Nicotine (Nicotine 21 Mg Patch.Td24) 21 mg TRANSDERMA DAILY PRN PRN Reason: smoking cessation Nicotine Polacrilex (Nicotine Polacrilex 2 Mg Gum) 4 mg BUCCAL Q2H PRN PRN Reason: Nicotine Cravings Patient Own Medication Thiothixene 5mg Tab 1 each PO TID@1200,1600,2100 COUNTS INCLUDE 234 BEDS AT THE [facility] Last Admin: 11/11/24 21:04 Dose: 1 each Olanzapine (Olanzapine 10 Mg Vial) 10 mg IM DAILY PRN PRN Reason: if refuses PO Abilify 20mg Last Admin: 10/11/24 13:48 Dose: 10 mg Olanzapine (Olanzapine 10 Mg Vial) 5 mg IM DAILY PRN PRN Reason: give if refuses Depakote Last Admin: 09/27/24 22:50 Dose: 5 mg Pharmacy Consult (Consult Rx Vancomycin Dosing) 1 each MISCELLANE DAILY PRN PRN Reason: Consult order Torsemide (Torsemide 20 Mg Tablet) 100 mg PO TuThSa@0900 COUNTS INCLUDE 234 BEDS AT THE [facility]; Protocol On Hold: 11/05/24 13:34 Last Admin: 11/05/24 11:35 Dose: Not Given Trazodone HCl (Trazodone Hcl 50 Mg Tablet) 50 mg PO BEDTIME MRX1 PRN PRN Reason: Insomnia Allergies Allergies Allergy/AdvReac Type Severity Reaction Status Date / Time No Known Allergies Allergy Verified 07/24/23 11:18 Assessment & Plan Assessment & Plan (1) ESRD (end stage renal disease): Status: Acute Code(s): N18.6 - End stage renal disease Plan Marco Holcomb is a 69 year old male with past medical history of ESRD on HD, bipolar disorder, Afib on Eliquis, s/p TAVR, hypertension, hyperlipidemia who presented to [facility] [place] with erratic behavior over the past few weeks. Seen by Psych for decompensated bipolar illness in the inpt psych unit. Nephrology consulted for ESRD. 1. ESRD Dialyzes MWF at [facility] via LUE AVF 2. Hypertension / Volume Chronically pt is taking metoprolol 25 mg daily and torsemide 100 mg non-HD days 3. Nephrogenic Anemia goal is HB 10-11 and cont EPO and Fe as noted-- given ongoin infection not a candidate for IV F but will check Fe stores nonetheless 4. Mineral Bone Disease 5. WT loss: encourage eating and suppl Recommendations: -cont HD 3x/wk using restraints and sedative meds as needed and rec by marco ( his is Hcpxy ) - routine dialysis labs ordered weekly *( can draw on HD) - has pedal edema - incr fkudi removal at HD epo q wk dependig on Hb - abx per primary team will follow w team 11/02/24- refused to be seen, pacing, keeping to himself- CTP 11/03/24: As usual, he is elected to medication he needs to take, very guarded, passive aggressive during assessment thank you for checking in with me and thank you . Then no further interaction. Per nursing, patient properly will refill labs work but we can do it tomorrow as he has dialysis in the morning. Not allow to have wound care assessment or take it care. He visible at times in the kitchen, observed by lateral tremors which could be normal baseline. Very guarded, not engaged in the assessment. 11/04 Discussed patient's care with and patient agrees to continue with dialysis, antibiotics for foot, and antipsychotic medications including Haldol if he were to return home; agrees to start taking Eliquis and metoprolol while on the unit; does not want Cogentin and says he can tolerate the shakes. Patient amenable to demonstrating adherence with care in order to prepare for discharge. Discussed case with overhead garage door hanger who agrees that patient should remain on Eliquis and metoprolol given history of AFib; tamsulosin more optional since they can always take extra fluid off during hemodialysis 11/05 taking Eliquis and metoprolol 11/06 Discussed Haldol. Patient said he wished to could be lowered however credit underwriter expressed that patient seems to have improved with it addition and so patient said he was okay with continuing with it 11/09: continue current management and treatment plan. Refused Eliquis and Metoprolol again. 11/10: Encouraged adherence. Continue current management and treatment plan. 11/11/24: Patient was medication compliant mostly his medication, he also take blood thinner this morning. Reports he has bleeding nose last week but denies it any more bleeding the past couple of days. He assumed that he take medication prior to dialysis especially the Haldol, he took another dose after came back from dialysis. In his mind, he thinks he only took 2 doses today and we will not taking more until nighttime. Case discussed with nursing, and Dr. Arora. The team decided to held the Haldol scheduled at 1500 as it really close to previous dose received after dialysis. Patient reported that Dr. Mccord told him he will take him off from Haldol due to severe hand tremors. Patient is aware that he is discharging this Monday after dialysis, he also will have to signed the contract with his tomorrow. He states that he his came to visit him today but it was quiet visit as we has been caught up with everything. Not much to talk . Is more reasonable, pleasant, and engaged in conversation. More organized and rationale, brighter, more pleasant upon approach. 11/12 Patient remains doing better and his who visits daily agrees. Patient is eating consistently and wanting to get back in shape Patient signed a contract saying which medications he would continue to take daily and that he will continue with dialysis. Patient able to discuss his treatment reasonably and agreed to have his Haldol and thiothixene changed to b.i.d. and daily dosing; he also like the idea of long-acting injectables so that he would not have to take these medications daily. He encouraged credit underwriter to speak with his outpatient provider. -credit underwriter discussed driving with patient who agrees that he is deconditioned and says he will not be driving; he agrees to discuss it with Dr. Pena whether or not he can resume -Slot Machine Key Person and patient discussed risk of AFib and risk of stroke which he accepted as an actual risk; last Monday he said he wanted to take a break from Eliquis and was okay with that risk but since then he has decided to resume Eliquis; bloody nose resolved. Of note, patient's ability to understand his risk for AFib and possible stroke demonstrates patient has significantly improved capacity for accepting/rejecting Eliquis/metoprolol. -He remains ambivalent about the Cogentin but was willing to try today -today with some coaxing, patient allowed wound nurse to look at his toe which is doing better; Discussed with hospitalist (and verified with pharm and ID) and patient has concluded 6 week course of antibiotics -patient accepted VNA Patient is near or at former baseline; agrees that patient is much improved and ready to come home. Patient educated on: diagnosis, medication risk/benefits and medical condition Informed Consent: understands and further education needed Reason for continued inpatient stay Substantial Risk for: stable for discharge Time Spent With Patient Time: Total time managing care of this patient today ____ minutes.
[2024-11-12] MEDS: THIOTHIXENE 5 MG 1 EACH PO ×3 (13:03→21:01)
--- NOTE | 2024-11-12 17:25 | HO.WOUND ---
Wound Consult: Follow up 69yr old? male admitted to [facility] on 09/05/24 17:25- See progress notes and H&P for detailed history.? Wound consult follow up for Right Great Toe wound - per staff and provider patient is now agreeable to assessment by this short story writer and topical recommendations. Unfortunately arrival to bedside patient remains very resistant to topical recommendations and assessment. He did allow me to do a mini assessment after provider coached him, he was only willing to allow bandiad applicaiton no cleansing or topical treatments. Attempted to educate patient on benfits of cleaning and covering - he was not agreeable. Overall the wound bed and towe are sigmnifcantly improved. There is no concern for infection at this time. The wound itslef is healing and maceration is signifcantly less at todays assessment. Patient will benefit from daily cleaning and keeping wound bed covered with absorpative dressing. 10/02/24 11/12/24 Right Great Toe Etiology: ??Unclear Etiology Wound Bed: improved wound bed pale pink wound bed significantly smaller than assessment in october see photo above Drainage / Odor: serosang drainage noted on removed bandaid no foul odor noted Edges: ? some maceration remains dry callused remains - improved periwound - no erythema or swelling appreciated at this time. nail bed discoloration continues Goals of Treatment: ? Recommend durafiber for moisture management but most important to keep clean and covered Recommendations: Right Great Toe - Cleanse with ns pat dry or wash with routine showering with soap and water. Pat dry. Cover open wound bed with Durafiber AG followed by bandaid. May change every other day or daily if showering daily. Re-consult wound care Nurse for wound deterioration or wound changes.
[2024-11-12 19:43] VITALS: BP 136/78; PULSE 62; TEMP 35.6; O2SAT 97
[2024-11-13 07:59] VITALS: BP 140/65; PULSE 74; TEMP 36.1; O2SAT 98
[2024-11-13] MEDS: THIOTHIXENE 5 MG 1 EACH PO (12:07)
--- NOTE | 2024-11-13 13:48 | PM.PSYDC ---
DS: Providers Provider Date of Service: 11/13/24 Date of admission: 09/05/24 17:25 Date of discharge: 11/13/24 Primary care physician: CARLOS Pretty Attending physician on admission: Richard Mccord Consults: 09/05/24 18:18 Consult to Hospitalist Routine Comment: Consulting Provider: [facility] Hospital[facility] Reason For Exam: admission physical 09/09/24 10:01 Consult to Nephrology Routine Consulting Provider: Bradley Pena Reason for consultation: pt wants to stop dialysis; wants to discuss 09/20/24 09:22 Consult to Hospitalist Routine Comment: Consulting Provider: [facility] Hospital[facility] Reason For Exam: Right Great Toe Infection 09/20/24 12:59 Consult to Infectious Diseases Routine Consulting Provider: [facility] Reason for consultation: Right great toe Has provider been notified: Yes 09/20/24 13:04 Consult to Wound Care Routine Reason for consultation: Right great toe open wound 09/24/24 16:44 Consult to Nephrology Routine Consulting Provider: [facility] Reason for consultation: Dialysis pt- Pt dec from 4 hr to 2.5 hr dialysis- in Cr/K/BUN- ?ret 4 hr rx 10/03/24 10:39 Consult to Vascular Surgery Routine Consulting Provider: [facility] Reason for consultation: Right great toe wound Has provider been notified: Yes 10/06/24 12:09 Consult to Infectious Diseases Routine Consulting Provider: [facility] Reason for consultation: per [facility]ust [facility] Has provider been notified: No 10/13/24 11:08 Consult to General Surgery Routine Consulting Provider: [facility] General Surgeons Reason for consultation: Right great toe osteomylitis? let psych attending know when arrive 10/15/24 14:07 Consult to Cardiology Routine Consulting Provider: [facility] Reason for consultation: ECT clearance, CHF, AFIB 10/24/24 12:38 Consult to Cardiology Routine Consulting Provider: [facility] Reason for consultation: assess readiness for ECT 11/12/24 10:21 Consult to Infectious Diseases Routine Consulting Provider: [facility] Reason for consultation: regarding Vanco (been 5 weeks?) Attending physician on discharge: Richard Mccord DS: Diagnosis Discharge Diagnosis (1) ESRD (end stage renal disease): Status: Acute DS: Medications Discharge Medications Home Medications: Home Medications ?Medication ?Instructions ?Recorded ?Confirmed apixaban 2.5 mg tablet 2.5 mg PO BID 09/05/24 09/05/24 aripiprazole 5 mg tablet 5 mg PO DAILY 09/05/24 09/05/24 benztropine 2 mg tablet 2 mg PO DAILY 09/05/24 09/05/24 metoprolol tartrate 25 mg tablet 25 mg PO DAILY 09/05/24 09/05/24 torsemide 100 mg tablet See Rx Instructions .Route .COMPLEX 09/05/24 09/05/24 Previous Rx's ?Medication ?Instructions ?Recorded divalproex 500 mg tablet,extended 1,000 mg (2 x 500 mg) PO BEDTIME 08/25/23 release 24 hr 30 days #60 tabs epoetin damari-epbx 10,000 unit/mL 10,000 unit subcut DIALYSIS X2 08/25/23 injection solution (Retacrit) MOWEFR #10 mL sennosides 8.6 mg tablet (Senna 17.2 mg (2 x 8.6 mg) PO BEDTIME 08/25/23 Lax) PRN Constipation 30 days #60 tabs vitamin B complex and vitamin C 1 cap PO DAILY #30 caps 08/25/23 no.20-folic acid 1 mg capsule (Renal Caps) Patient Own Medication 3 ea PO DAILY ##0 11/13/24 aripiprazole 20 mg tablet (Abilify) 20 mg PO DAILY 30 days #30 tabs 11/13/24 benztropine 1 mg tablet 1 mg PO TID PRN EPS 30 days #60 11/13/24 tabs haloperidol 5 mg tablet 7.5 mg (1.5 x 5 mg) PO BID 30 days 11/13/24 #90 tabs Mental Status Exam Mental Status Exam Narrative: Pt is alert and oriented; behavior is calm, cooperative, much more reasonable and able to discuss treatment; intermittently resistant to care; calm; patient is not in distress; dressed in casual attire with adequate hygiene and grooming; mood is described as good and affect noticeably brighter; eye contact appropriate; Speech is normal rate, volume and prosody and not pressured; no psychomotor retardation present; thought process is goal directed and linear; Thought content continue treatment, discharge; no expressed paranoid delusions; denies any SI/HI. Denies AVH; does not appear to be internally preoccupied. Patients insight and judgment impaired, but significantly improved and close to baseline Data Data Completed and Pending Completed studies during hospitalization [Text1]: 10/25/24 11/08/24 11/11/24 14:32 08:57 09:39 Random Vancomycin 13.5 L 15.4 Ref Lab Test Result SEE NOTE 09/20/24 13:33 Blood - Venous Blood Culture - Final No growth after 5 days. 09/20/24 13:33 Blood - Venous Blood Culture - Final No growth after 5 days. DS: Summary Hospital Course Hospital Course: HPI: Patient is a 69 yo male with hx of bipolar/psychosis, catatonia, ESRD on Dialysis MWF, AFib on Eliquis, hypertension, anemia related to chronic kidney disease, aortic stenosis status post TAVR, was admitted from [facility] ED after his reported some manic behaviors as well as psychosis and refusal of medications and treatments. Patient refusing medication, labs and dialysis. Says he just wants to take a break from dialysis. He also says he does not want to and wants to live and seemed surprised to hear that refusing dialysis could end his life; however he continued to refuse, only relenting when it was explained to him that court affirmed healthcare proxy has paid a decision that he needs to get dialysis. Patient making some paranoid statements about the police, needing to be taking in or booked by the police... came to the unit and reports that he has not been taking his medications for at least a month and has been making paranoid statements, thinking someone stole a gun from his safe although he does not have a gun at all. HCP affirmed on 09/08/[address] [place] [address] Commercial Loan Administrator spoke with patient's and HCP Sujaat... She says patient has been confused and disorganized for quite some time, not taking his medications. She agrees that he needs dialysis, to continue his medications, psychiatric and medical, and lab work and agrees that if need be patient is to be restrained in order to treat him including dialysis, medication and labs. Formulation/clinical reasoning: Patient is confused with paranoid delusions; does not have capacity to make medical decisions and healthcare proxy remains affirmed and necessary. Patient disorganized saying he wants to live but does not want dialysis and can not accept that without dialysis he will . Discussed case with , Dr. Pena who concur that when patient is on psychiatric medications and organized, he continues to want dialysis Hospital course: Below is a brief summary of patient's Complicated hospital course; for full details see most recent progress note Patient presented with some paranoid ideations. Patient was without capacity and had somatic delusions and unable to understand his medical illnesses. Patient assisted he would be okay without dialysis (saying his kidneys are fine and wanted to just trying to be off dialysis to see how it goes...) or without or Eliquis which he is on for AFib (also refused metoprolol, Cogentin, torsemide). Patients healthcare proxy had been affirmed during his last admission and remain so; curriculum writer and team discussed patient's treatment plan frequently and thoroughly with his healthcare proxy, his who visited most days and okayed treatment plan. He was restarted on his psychiatric medications which he resisted at 1st but eventually started to take. There was only 1 time patient needed a restrained for dialysis but he often refused it, it taking much persuasion for him to accept it. For over a month patient remained with somatic delusional thinking that he did not need dialysis. While on the unit patient had a blister on his big right toe which he picked at and refused to allow it to be looked at; patient developed an infection that appeared to be cellulitis (though he refused an MRI) and patient was started on a 6 week course of IV vanco which he also resisted from much of his admission. Paranoid ideations resolved however he remained without capacity to understand his need for medical treatment. Team discussed treatment options and strongly considered ECT (pt also appeared depressed, was eating little and losing weight) however during a past admission patients psychiatric medications were augmented with Haldol which at that time improved organized thinking so Haldol was started to see if it could again have good effect and enable patient to avoid ECT. Team and healthcare proxy agreed that despite patient now being on 3 antipsychotic medications (Haldol, thiothixene, Abilify, as well as Depakote) the potential benefit outweighed the risks. On Haldol, patient thinking improved and he started to head back towards baseline; capacity increased and patient again understood that he needed dialysis to live and continued to receive dialysis without incident; he remained somewhat ambivalent about needing vanco however he completed his 6 week treatment course. Patient also started taking Eliquis again. Patient's and team agreed that patient was doing much better. Depression also had lifted and patient appeared to be in a good mood; he was eating well and eager to gain weight and to regain function. Throughout his hospitalization patient was nearly always polite and friendly on approach even when very frustrated or feeling dejected. Accept for a few isolated moments, He was overall in good behavioral and impulse control throughout. 11/11/24: Patient was medication compliant mostly his medication, he also take blood thinner this morning.? Reports he has? bleeding nose last week but denies it any more bleeding the past couple of days.? He assumed that he take medication prior to dialysis especially the Haldol, he took another dose after came back from dialysis.? In his mind, he thinks he only took 2 doses today and we will not taking more until nighttime.? Case discussed with nursing, and Dr. Arora.? The team decided to held the Haldol scheduled at 1500 as it really close to previous dose received after dialysis.? Patient reported that Dr. Mccord told him he will take him off from Haldol due to severe hand tremors.? Patient is aware that he is discharging this Monday after dialysis, he also will have to signed the contract with his tomorrow.? He states that he his came to visit him today but it was quiet visit as we has been caught up with everything.? Not much to talk .? Is more reasonable, pleasant, and engaged in conversation. More organized and rationale, brighter, more pleasant upon approach. 11/12 Patient remains doing better and his who visits daily agrees.? Patient is eating consistently and wanting to get back in shape Patient signed a contract saying which medications he would continue to take daily and that he will continue with dialysis.? Patient able to discuss his treatment reasonably and agreed to have his Haldol and thiothixene changed to b.i.d. and daily dosing; he also like the idea of long-acting injectables so that he would not have to take these medications daily.? He encouraged curriculum writer to speak with his outpatient provider. -curriculum writer discussed driving with patient who agrees that he is deconditioned and says he will not be driving; he agrees to discuss it with Dr. Pena whether or not he can resume -Commercial Loan Administrator and patient discussed risk of AFib and risk of stroke which he accepted as an actual risk; last Monday he said he wanted to take a break from Eliquis and was okay with that risk but since then he has decided to resume Eliquis; bloody nose resolved.? Of note, patient's ability to understand his risk for AFib and possible stroke demonstrates patient has significantly improved capacity for accepting/rejecting Eliquis/metoprolol. -He remains ambivalent about the Cogentin but was willing to try today -today with some coaxing, patient allowed wound nurse to look at his toe which is doing better; Discussed with hospitalist (and verified with pharm and ID) and patient has concluded 6 week course of antibiotics -patient accepted VNA -social science teacher spoke with patient's PCP about his great right toe as well as the VNA who will assess; social science teacher also discussed case with patient's outpatient dialysis team. Commercial Loan Administrator called patient's outpatient psychiatric provider to discuss this admission and addition of Haldol. Impression: Patient is near or at former baseline; and team agreed that patient is much improved and ready to return home (though much improved, patient still remains without full capacity and healthcare proxy remains affirmed). Patient of course remains vulnerable to decompensation, however for now he is appropriate to continue treatment in the community. It is not clear if patient will need to remain on 3 antipsychotics and if not which 1 should be tapered; since patient is now stabilized team and his agree for patient to remain on current medication regimen and defer to outpatient provider regarding further management. Medication changes: Added Haldol 7.5mg BID Time spent discussing smoking cessation with patient: 3 to 10 minutes Status at Discharge Functional status at discharge: independent ambulation Overall status at discharge: patient is progressing back to baseline (close to baseline) Time Spent with Patient Time attestation: Total time managing care of this patient today _50___ minutes. Time spent: Greater than 30 minutes Specific discharge activities: Met with patient; family meeting; reaching out to outpatient providers; prescriptions; charting Discharge Plan Discharge Anticipated Discharge Date/Time: 11/13/24 15:00 Patient Disposition: Home, Self-Care Discharge Diagnosis: Bipolar I disorder Referrals: Valentina Jacobs (psychiatry) [facility] [Other] - 11/21/24 12:30 pm Referral Note: Hospital discharge appointment with psychiatric medication provider. Nina TONEY [Other] - 1 Week Referral Note: Dialysis: [facility] [Other] - 11/15/24 5:30 am Referral Note: Continue dialysis every M/W/ for the amount of time recommended by Dr. Jean Meza,CARLOS Ramos [Primary Care Provider, Internal Medicine] - 11/26/24 1:30 pm Referral Note: Appointment request was made: a nurse will be calling Sujata to schedule follow up appointment Discharge Medications: New haloperidol 5 mg Tablet 7.5 mg PO BID 30 Days Qty: 90 0RF benztropine 1 mg Tablet 1 mg PO TID PRN (Reason: EPS) 30 Days Qty: 60 0RF Patient Own Medication 3 ea PO DAILY Qty: 0 0RF Rx Instructions: take 3 tabs daily for total daily dose of 15mg Continued torsemide 100 mg Tablet See Rx Instructions .ROUTE .COMPLEX Rx Instructions: 100 mg orally once a day on monday, , monday aripiprazole 5 mg Tablet 5 mg PO DAILY apixaban 2.5 mg Tablet 2.5 mg PO BID metoprolol tartrate 25 mg Tablet 25 mg PO DAILY benztropine 2 mg Tablet 2 mg PO DAILY aripiprazole [Abilify] 20 mg Tablet 20 mg PO DAILY 30 Days Qty: 30 0RF Retacrit 10,000 unit/mL Solution 10,000 unit subcut DIALYSIS X2 MOWEFR Qty: 10 0RF divalproex 500 mg Tablet Extended Release 24 Hr 1,000 mg PO BEDTIME 30 Days Qty: 60 0RF sennosides [Senna Lax] 8.6 mg Tablet 17.2 mg PO BEDTIME PRN (Reason: Constipation) 30 Days Qty: 60 0RF Renal Caps 1 mg Capsule 1 cap PO DAILY Qty: 30 0RF Discontinued thiothixene 5 mg Capsule 5 mg PO TID divalproex 500 mg Tablet Extended Release 24 Hr 500 mg PO DAILY benztropine 1 mg tablet 1 mg PO BEDTIME PRN (Reason: EPS) aspirin 81 mg Tablet,Delayed Release (Dr/Ec) 81 mg PO DAILY 30 Days Qty: 30 0RF sevelamer carbonate 800 mg tablet 800 mg PO TID@0800,1200,1800 Qty: 90 0RF Discharge Orders: Discharge Order (Routine); Ordered 11/13/24 Ordered By: Richard Mccord Diet: per renal Activity on Discharge: As tolerated Stand Alone Forms: Patient Portal Discharge page, Community Support Print Language: Tajik Activity Restrictions/Additional Instructions: Topical Wound Care Recommendations: Right Great Toe - Cleanse with normal saline or wash with routine showering with soap and water, pat dry. Cover open wound bed with Durafiber AG followed by bandaid. If refuses Durafiber recommend keeping covered and clean with dressing / bandaid. May change every other day or daily if showering daily. Care Plan Goals: Maintain mood and safe behaviors Take medications as prescribed Practice coping skills Continue with outpatient providers and reach out to them as needed Health Concerns: Mood stability and behaviors ESRD on dialysis History of AFib; on Eliquis/metoprolol Osteomyelitis (likely) great right toe (completed 6 weeks of IV vanco) Plan of Treatment: Follow up with your PCP, psychiatric provider and other outpatient providers regarding above concerns Take medications as prescribed Assessment: Risk assessment at time of discharge:? Patient was interviewed prior to discharge and found to be fully oriented and without any SI or HI. Patient has improved insight and judgment and wants to continue treatment. Patient is not in imminent risk of harm to self or others and has a safety plan that includes presenting to the closest ER or calling 911 if feeling unsafe.? Patient has been observed closely by nursing and unit staff throughout admission; patient has not engaged in any behaviors that suggest dangerousness to self or others and has demonstrated appropriate behaviors and impulse control Discharge Date/Time: 11/13/24 15:06
== END 2024-11-13 15:06 | disposition home or self-care (01) | DRG 885 ==
PROVIDERS: Clinical Nurse Specialist Psychiatric/Mental Health, Adult; Internal Medicine; Internal Medicine Nephrology; Nurse Practitioner Family; Registered Nurse; Student in an Organized Health Care Education/Training Program; Admitting Provider Psychiatry & Neurology Psychiatry; PCP Physician Assistant; Visit Provider Psychiatry & Neurology Psychiatry
DX: F31.9 Bipolar disorder, unspecified (principal); N18.6 End stage renal disease; I13.2 Hypertensive heart and chronic kidney disease with heart failure and with stage 5 chronic kidney disease, or end stage renal disease; M86.9 Osteomyelitis, unspecified; N25.0 Renal osteodystrophy; I48.91 Unspecified atrial fibrillation; L03.031 Cellulitis of right toe; D63.1 Anemia in chronic kidney disease; S91.201A Unspecified open wound of right great toe with damage to nail, initial encounter; I50.9 Heart failure, unspecified; W22.8XXA Striking against or struck by other objects, initial encounter; Z78.1 Physical restraint status; Z91.158 Patient's noncompliance with renal dialysis for other reason; Z91.148 Patient's other noncompliance with medication regimen for other reason; Z95.2 Presence of prosthetic heart valve; Z99.2 Dependence on renal dialysis; Z79.01 Long term (current) use of anticoagulants; Z79.899 Other long term (current) drug therapy
CPT/HCPCS: 36415; 80048; 80053; 80061; 80164; 80202; 80307; 82565; 82607; 82668; 82746; 83036; 83540; 83880; 84100; 84132; 85025; 87040; 90999; 93005; J1630; J2359; J3360; J3374; Q5106

== ENCOUNTER → 2024-09-05 17:25 | Outpatient (BNV) | payer MEDICARE, SELFPAY | PROVIDERS: Admitting Provider Psychiatry & Neurology Psychiatry; PCP Physician Assistant; Visit Provider Surgery | DX: S91.101A Unspecified open wound of right great toe without damage to nail, initial encounter (principal) | CPT/HCPCS: 99222; 99499 ==

== ENCOUNTER → 2024-09-05 17:25 | Outpatient (BNV) | payer MEDICARE, SELFPAY | PROVIDERS: Admitting Provider Psychiatry & Neurology Psychiatry; PCP Physician Assistant; Visit Provider Psychiatry & Neurology Psychiatry | DX: F31.4 Bipolar disorder, current episode depressed, severe, without psychotic features (principal); N18.6 End stage renal disease; Z99.2 Dependence on renal dialysis | CPT/HCPCS: 90792; 99231; 99232 ==

== ENCOUNTER → 2024-09-05 17:25 | Outpatient (BNV) | payer MEDICARE, SELFPAY | PROVIDERS: Admitting Provider Psychiatry & Neurology Psychiatry; PCP Physician Assistant; Visit Provider Internal Medicine | DX: S91.101A Unspecified open wound of right great toe without damage to nail, initial encounter (principal) | CPT/HCPCS: 99232 ==

== ENCOUNTER → 2024-09-05 17:25 | Outpatient (BNV) | payer MEDICARE, SELFPAY | PROVIDERS: Admitting Provider Psychiatry & Neurology Psychiatry; PCP Physician Assistant; Visit Provider Psychiatry & Neurology Psychiatry | DX: F31.4 Bipolar disorder, current episode depressed, severe, without psychotic features (principal); N18.6 End stage renal disease; Z99.2 Dependence on renal dialysis | CPT/HCPCS: 99231 ==

== ENCOUNTER → 2024-09-05 17:25 | Outpatient (BNV) | payer MEDICARE, SELFPAY | PROVIDERS: Admitting Provider Psychiatry & Neurology Psychiatry; PCP Physician Assistant; Visit Provider Internal Medicine Cardiovascular Disease | DX: N18.6 End stage renal disease (principal); Z99.2 Dependence on renal dialysis | CPT/HCPCS: 99222 ==

== ENCOUNTER → 2024-09-05 17:25 | Outpatient (BNV) | payer MEDICARE, SELFPAY | PROVIDERS: Admitting Provider Psychiatry & Neurology Psychiatry; PCP Physician Assistant; Visit Provider Nurse Practitioner Family | DX: N18.6 End stage renal disease (principal); Z99.2 Dependence on renal dialysis | CPT/HCPCS: 99222 ==